=== PATIENT | male | born 1950 | race Caucasian/White ===

== ENCOUNTER 2018-04-08 12:23 | Outpatient (REF) | payer MEDICARE, MEDICAID, SELFPAY | END 2018-04-08 12:43 | LOC: NCHCN 12:23 | PROVIDERS: PCP Nurse Practitioner Adult Health; Visit Provider Internal Medicine | DX: N41.9 Inflammatory disease of prostate, unspecified (principal) | CPT/HCPCS: 87086 ==

== ENCOUNTER 2018-04-20 15:03 | Outpatient (REF) | payer MEDICARE, MEDICAID, SELFPAY ==
[2018-04-22 15:38] LABS: Chlamydia Result Negative; GC Result Negative; Specimen Description URINE
== END 2018-04-20 15:23 ==
LOC: NCHCN 15:03
PROVIDERS: PCP Nurse Practitioner Adult Health; Visit Provider Internal Medicine
DX: R30.0 Dysuria (principal)
CPT/HCPCS: 87491; 87591

== ENCOUNTER 2018-10-07 12:46 | Outpatient (REF) | payer MEDICARE, MEDICAID, SELFPAY ==
--- NOTE | 2018-10-07 11:30 | PAPNONF_PTH ---
PATIENT: Gt Aguilar LOC: [facility] U#:[id number] AGE/SX: 68/M ROOM: RE10/07/[address]: Subhash Dowling : 1950 BED: DIS: 10/07/2018 SPEC #: [id number] RECD: 10/10/18 13:13 STATUS: SONA ARROYO #: [id number] USAMA: 10/07/18 11:[address]: Subhash Dowling DEPT: [facility] Cytology RECD BY: Mary Ann Velazco ENTERED: 10/10/18 13:13 SP TYPE: LUCIANA MCPHERSON DR: Caroline Louie Tissues: 1 - BODY FLUID CYTO(SPUTUM/URINE)[facility] Procedures: BODY FLUID CYTO(URINE/SPUTUM) Comments: [id number] (TOTAL VOLUME = 35 ml's) (35 ml'S URINE & 35 ml's CYTOLYT ADDED)
[2018-10-07 19:51] LABS: HCT 47.3 % (40.0-50.0); HGB 16.2 g/dL (13.5-17.5); Mean Corp. HGB Concentration 34.2 g/dL (32.0-36.0); Mean Corpuscular Hemoglobin 30.4 pg (27.0-33.0); Mean Corpuscular Volume 88.7 fL (80-95); Mean Platelet Volume 11.8 fL (8.0-11.0); Platelet Count 153 x1000/uL (130-400); RBC 5.33 m/cumm (4.50-6.00); RBC Distribution Width 14.6 % (11.8-14.1); White Blood Cell Count 7.16 k/cumm (4.4-10.8)
[2018-10-07 20:05] LABS: ALT 28 U/L (12-78); Anion Gap 10.6 mmol/L (3-11); BUN 14 mg/dL (7-18); CO2 27.4 mmol/L (21.0-32.0); CREATININE 0.86 mg/dL (0.70-1.30); Calcium 9.1 mg/dL (8.5-10.1); Chloride 103 mmol/L (98-107); Glucose 92 mg/dL (70-100); Potassium 4.3 mmol/L (3.5-5.1); Sodium 141 mmol/L (136-145)
[2018-10-07 20:15] LABS: LDL CHOLESTEROL 184 mg/dL (<100)
[2018-10-10 09:59] LABS: PSA, Screening 2.9 ng/ml (0-4.5)
[2018-10-10 10:58] LABS: Bacteria Few HPF (Negative); Casts Negative LPF (Negative); Epithelial Cells Few HPF (Negative); Mucus Negative (Negative); WBC 20-50 HPF (0-5)
[2018-10-10 10:59] LABS: C & S Indicated? No
== END 2018-10-07 13:06 ==
LOC: NCHCN 12:46
PROVIDERS: PCP Nurse Practitioner Adult Health; Visit Provider Internal Medicine
DX: Z87.448 Personal history of other diseases of urinary system (principal); R63.4 Abnormal weight loss; Z12.5 Encounter for screening for malignant neoplasm of prostate; E78.5 Hyperlipidemia, unspecified; R31.21 Asymptomatic microscopic hematuria; R82.8 Abnormal findings on cytological and histological examination of urine
CPT/HCPCS: 80048; 83721; 84153; 85027; 81015; 84460; 88104

== ENCOUNTER → 2018-11-02 13:04 | Outpatient (BNVA) | payer MEDICARE, MEDICAID, SELFPAY | PROVIDERS: PCP Nurse Practitioner Adult Health; Visit Provider Nurse Practitioner Gerontology | DX: R31.29 Other microscopic hematuria (principal); I10 Essential (primary) hypertension; J44.9 Chronic obstructive pulmonary disease, unspecified; Z87.891 Personal history of nicotine dependence | CPT/HCPCS: 81003; 99204 ==

== ENCOUNTER 2018-11-14 01:09 | Outpatient (CLI) | payer MEDICARE, MEDICAID, SELFPAY | END 2018-11-14 01:29 | PROVIDERS: PCP Nurse Practitioner Adult Health; Visit Provider Nurse Practitioner Gerontology | DX: R69 Illness, unspecified (principal) | CPT/HCPCS: 82565 ==

== ENCOUNTER → 2019-02-27 11:31 | Outpatient (BNVA) | payer MEDICARE, MEDICAID, SELFPAY | PROVIDERS: PCP Nurse Practitioner Adult Health; Visit Provider Nurse Practitioner Gerontology | DX: C67.9 Malignant neoplasm of bladder, unspecified (principal); R31.29 Other microscopic hematuria; R63.4 Abnormal weight loss; R30.0 Dysuria | CPT/HCPCS: 81003; 99213 ==

== ENCOUNTER 2019-02-28 00:32 | Outpatient (CLI) | payer MEDICARE, MEDICAID, SELFPAY ==
--- NOTE | 2019-02-28 09:00 | DI.CT_ITS ---
SYMPTOM/DIAGNOSIS: H/O HEMATURIA Z87.[address]: 02/28 CT examination of the abdomen and pelvis was performed utilizing CT urogram protocol. There are a couple of tiny nonobstructing right renal calculi. There are multiple calcifications of the spleen and liver consistent with healed granulomatous disease. Note is made of cholelithiasis without biliary dilatation or other foal abnormality. Lung bases are clear. Pancreas is unremarkable in appearance. Adrenals appear normal. Moderate atheromatous calcification of the aorta noted, no evidence of aneurysm, dissection or arterial obstruction of the major abdominal branches of the aorta. No abdominal or pelvic adenopathy seen. Adrenals appear normal. Right kidney shows minimal cortical deformity at a couple sites which may represent renal scars. Small peripheral right renal cysts vs scarring also noted. No right renal mass. No right hydronephrosis or ureteral calcification or obstruction. There is a 30 x 14 m in diameter enhancing mass of the wall of the urinary bladder in the trigone in the left and this obstructs the distal left ureter. There is marked left hydronephrosis and hydroureter. No left renal cortical abnormality sen. No left sided stone. CONCLUSION: Obstructing mass of the bladder floor to the left of midline, there is secondary left hydroureter and hydronephrosis. The findings are highly suggestive of bladder carcinoma. No gross evidence of metastatic disease.
[2019-02-28] MEDS: Omnipaque 350 MG/ML 100 ML BTL IJ (09:49)
== END 2019-02-28 00:52 ==
PROVIDERS: PCP Nurse Practitioner Adult Health; Visit Provider Nurse Practitioner Family
DX: N32.9 Bladder disorder, unspecified (principal); N13.4 Hydroureter; N13.30 Unspecified hydronephrosis; D41.4 Neoplasm of uncertain behavior of bladder; C67.9 Malignant neoplasm of bladder, unspecified
CPT/HCPCS: 99213; 74178; J3490

== ENCOUNTER 2019-03-17 15:23 | Outpatient (REF) | payer MEDICARE, MEDICAID, SELFPAY ==
[2019-03-17 19:51] LABS: HCT 44.8 % (40.0-50.0); HGB 15.1 g/dL (13.5-17.5); Mean Corp. HGB Concentration 33.7 g/dL (32.0-36.0); Mean Corpuscular Hemoglobin 29.8 pg (27.0-33.0); Mean Corpuscular Volume 88.4 fL (80-95); Mean Platelet Volume 11.8 fL (8.0-11.0); Platelet Count 196 x1000/uL (130-400); RBC 5.07 m/cumm (4.50-6.00); RBC Distribution Width 14.9 % (11.8-14.1); White Blood Cell Count 8.81 k/cumm (4.4-10.8)
[2019-03-17 19:58] LABS: ALT 24 U/L (16-63); AST 13 U/L (15-37); Albumin 3.8 g/dL (3.4-5.0); Alkaline Phosphatase 137 U/L (46-116); Anion Gap 10.5 mmol/L (3-11); BUN 18 mg/dL (7-18); Bilirubin, Total 0.3 mg/dL (0.2-1.0); CO2 26.5 mmol/L (21.0-32.0); CREATININE 1.26 mg/dL (0.70-1.30); Calcium 9.3 mg/dL (8.5-10.1); Chloride 106 mmol/L (98-107); Estimated GFR 57.26 (mL/min/1.73m2); Glucose 94 mg/dL (70-100); LDL CHOLESTEROL 180 mg/dL (<100); Potassium 4.6 mmol/L (3.5-5.1); Sodium 143 mmol/L (136-145); Total Protein 6.9 g/dL (6.4-8.2)
[2019-03-17 20:05] LABS: Troponin I < 0.05 ng/mL (0.00-0.06)
== END 2019-03-17 15:43 ==
LOC: NCHCN 15:23
PROVIDERS: PCP Nurse Practitioner Adult Health; Visit Provider Internal Medicine
DX: R07.9 Chest pain, unspecified (principal); C67.9 Malignant neoplasm of bladder, unspecified; R63.4 Abnormal weight loss
CPT/HCPCS: 80053; 83721; 85027; 84484

== ENCOUNTER 2019-04-20 11:05 | Outpatient (CLI) | payer MEDICARE, MEDICAID, SELFPAY | END 2019-04-20 11:25 | PROVIDERS: PCP Internal Medicine; Visit Provider Urology | DX: R30.0 Dysuria (principal); R31.29 Other microscopic hematuria; J44.9 Chronic obstructive pulmonary disease, unspecified; N32.89 Other specified disorders of bladder | CPT/HCPCS: 81003; 99213; 87086 ==

== ENCOUNTER 2019-05-04 00:32 | Outpatient (CLI) | payer MEDICARE, MEDICAID, SELFPAY ==
--- NOTE | 2019-05-04 08:30 | ETT_ITS ---
APPROVED REPORT Exam: Exercise Treadmill Patient Location: Out-Patient Stress Nurse: Ekta Mercedes RN Baseline Rhythm: NSR BMI: 22.59 Indications: Per notes-Chest Pain, Pre-Operative CV Evaluation, Dyspnea., Pt completely unsure of nicolasa son for testing. Medical History Medical History: COPD, Smoking, Hyperlipidemia, PVD Cardiac Medications: Atenolol, Atorvastatin/ Lipitor, Aspirin Allergies: No known drug allergies Cardiac Risk Factors: Hyperlipidemia, Smoking, COPD, PVD Pretest Chest Pain Characteristics: No chest pain Exercise History: Indeterminate Physical Disabilities: Hips Lung Sounds: diminished Heart Sounds: Regular Stress Test Details Test: Exercise stress testing was performed using a Kostas protocol. Rest Stress HR Resting HR: 72 bpm Max Heart Rate (APMHR): 154 bpm Resting HR Supine: 72 bpm Target HR (85% APMHR): 130 bpm Resting HR Standin bpm Max HR Achieved: 126 bpm % of APMHR: 81 Recovery HR: 77 bpm HR response to stress: Normal HR response to stress BP Resting BP: 140/80 mmHg Resting BP Supine: 140/80 mmHg Resting BP Standin/84 mmHg Max BP: 174/68 mmHg Recovery BP: 130/70 mmHg BP response to stress: Normal blood pressure response to stress. ECG Resting ECG: Sinus Rhythm Ectopy: none Stress ECG: Sinus Tachycardia ST Change: Normal Arrhythmia: None Recovery ECG: Sinus Rhythm Recovery Arrhythmia: None Clinical Time of Stop for Kostas: 3:16 Reason for Termination: Fatigue, Leg pain/Claudication Stress Symptoms: Dyspnea, Leg Fatigue Exercise duration: 3 min16 sec Highest Stage Achieved: Stage 1: 1.7 mph at 10% grade. Exercise capacity: 4.89 METs Functional Capacity: Markedly diminished capacity Stress ECG Conclusion 1. The patient exercised for 3 minutes and 16 seconds (4.89 METS): This suggests significantly dimini shed exercise capacity. 2. Patient did not reach target heart rate thus this does not represent a maximal stress test. 3. There is no evidence of ischemia on ECG. 4. The Sykes Score (3) estimates an annual cardiovascular mortality of 1% and a five year survival of 94%. Using the Sykes Score there is an intermediate probability of angiographic coronary disease. Test Summary supine 72 140/80 standing 86 136/84 97 1 3 10 1.7 125 4.6 162/76 95 1 min recovery 118 174/98 3 min recovery 81 160/80 6 min recovery 77 130/70
== END 2019-05-04 00:52 ==
PROVIDERS: PCP Nurse Practitioner Adult Health; Visit Provider Urology
DX: R07.9 Chest pain, unspecified; R06.09 Other forms of dyspnea; R68.89 Other general symptoms and signs; E78.5 Hyperlipidemia, unspecified; J44.9 Chronic obstructive pulmonary disease, unspecified
CPT/HCPCS: 93016; 93018; 93017

== ENCOUNTER 2019-05-18 01:53 | Outpatient (CLI) | payer MEDICARE, MEDICAID, SELFPAY ==
--- NOTE | 2019-05-18 06:40 | DI.NM_ITS ---
APPROVED REPORT Exam: Pharmacologic Patient Location: Out-Patient Room/Bed: Stress Nurse: Ekta Mercedes RN BMI: 22.59 Baseline Rhythm: NSR Indications: Chest Pain, Pre-Operative CV Evaluation, Dyspnea Medical History Medical History: COPD, Smoking, Hyperlipidemia,PVD Cardiac Medications: Atenolol, Atorvastatin/ Lipitor, Aspirin Allergies: No known drug allergies Cardiac Risk Factors: Hyperlipidemia, Smoking, SOB, PVD, COPD Pretest Chest Pain Characteristics: No chest pain Exercise History: Indeterminate Physical Disabilities: Legs, Hips Lung Sounds: Diminished bilat Heart Sounds: Regular Stress Test Details Test: Pharmacologic stress testing performed using 0.4 mg of regadenoson per 5 mL given IV over 10 s econds. Nuclear Acquisition: Rest Tc-99m/Stress Tc-99m 1 day Rest Isotope: Tc-99m Sestamibi. Dose: 11 Date: 05/18/2019 Injection Time: 0830 Stress Isotope: Tc-99m Sestamibi. Dose: 33 Date: 05/18/2019 Injection Time: 0942 HR Resting HR: 60 bpm Max Heart Rate (APMHR): 154 bpm Resting HR Supine: 60 bpm Target HR (85% APMHR): 130 bpm Max HR Achieved: 114 bpm % of APMHR: 74 Recovery HR: 88 bpm HR response to stress: Normal HR response to stress BP Resting BP: 140/80 mmHg Resting BP Supine: 140/80 mmHg Max BP: 150/78 mmHg Recovery BP: 128/72 mmHg BP response to stress: Abnormal hypertensive response to stress. ECG Resting ECG: Clear, Sinus Rhythm ST Change: none Ectopy: [email or web address] Stress ECG: Sinus Tachycardia ST Change: none Arrhythmia: None Recovery ECG: Sinus Rhythm Recovery Arrhythmia: None Stress ECG Conclusion 1. There is no evidence of stress-induced ischemia on ECG portion of the study. Protocol Used: Regadenoson Stress Test Summary STAGE HR BP Symptoms NOTES Supine 60 140/80 Standing 1 min 99 150/78 2 min 3 min 106 138/76 4 min 5 min 6 min 88 128/72 7 min 8 min 9 min 10 min MPI Conclusion There is no evidence of inducible ischemia on imaging portion of this exam. Ejection fraction was 66% at stress Conclusion: This represents a normal SPECT stress test.
[2019-05-18] MEDS: Regadenoson 0.4 MG/5 ML SYR IVP (09:41)
== END 2019-05-18 02:13 ==
PROVIDERS: PCP Nurse Practitioner Adult Health; Visit Provider Urology
DX: R07.9 Chest pain, unspecified (principal); R06.09 Other forms of dyspnea; E78.5 Hyperlipidemia, unspecified; I73.9 Peripheral vascular disease, unspecified; J44.9 Chronic obstructive pulmonary disease, unspecified; F17.200 Nicotine dependence, unspecified, uncomplicated; Z01.810 Encounter for preprocedural cardiovascular examination; N32.9 Bladder disorder, unspecified
CPT/HCPCS: 78452; 93016; 93018; 93017; J2785

== ENCOUNTER 2019-07-27 12:40 | Outpatient (REF) | payer MEDICARE, MEDICAID, SELFPAY | END 2019-07-27 13:00 | LOC: NCHCN 12:40 | PROVIDERS: PCP Physician Assistant; Visit Provider Physician Assistant | DX: R30.0 Dysuria (principal) | CPT/HCPCS: 87086 ==

== ENCOUNTER 2019-07-31 10:48 | Inpatient (IN) | payer MEDICARE, MEDICAID, SELFPAY ==
[2019-07-31] VITALS (11 sets, daily range): BP systolic 117–135; BP diastolic 70–86; PULSE 57–92; RESP 12–19; TEMP 36.5–36.8; O2SAT 94–100
[2019-07-31] MEDS: Lactated Ringers 1,000 ML 80 ML IV ×2 (11:47→13:34)
--- NOTE | 2019-07-31 11:48 | W.PM.HP.N ---
Date of service: 07/31/19 Time of Service: 11:48 Assessment and Plan Assessment and plan (1) Bladder mass: Status: Acute Assessment and plan: For cystoscopy and TUR bladder tumor. He will require hospitalization at least overnight for bladder irrigation. History of Present Illness History of Present Illness Chief Complaint: Bladder mass Narrative: This is a 68 year old man who is a heavy smoker. He was referred to our practice over a year ago for microscopic hematuria. We had recommended a CT urogram and cystoscopy, but the patient never followed through with these studies. He then developed gross hematuria and a CT urogram was obtained by the patient's PCP 03/2019. A large bladder mass was identified at the left trigone. There is left hydronephrosis and hydroureter. His urine cytology was abnormal 10/2018. The patient lacks insight into his medical situation. In spite of multiple discussion with him, he believes he has a clot in his bladder. He was unable to provide a satisfactory cardiac history for us, but gave a vague history of chest pain/shortness of breath with exertion. He had an echocardiogram and a stress test that were unremarkable, so he is felt to be a surgical candidate locally. He has been a no show for scheduled surgery several times. He presents now for cystoscopy and TUR Bladder tumor. Review of Systems Narrative: No fevers or chills No vision change or dysphasia No diabetes or thyroid No hemoptysis No chest pain or palpitations at rest c/o abdominal pain. No nausea, vomiting, hepatitis, ulcers, jaundice, diarrhea or constipation No seizures, strokes or peripheral neuropathy No bleeding disorders or anemia No gout PFSH Social History Smoking/Tobacco Use Status: Current every day Tobacco Type: cigarettes Alcohol Intake: current Alcohol Intake frequency: a few times a week Alcohol type: beer Drug use: Never Substance use type: does not use Do you feel safe at home: Yes Meds Home Medications and Allergies Home Medications Medication Instructions Recorded Confirmed Type aspirin 81 mg tablet,delayed 81 mg PO DAILY 11/02/18 07/31/19 History release atenolol 25 mg tablet 25 mg PO DAILY 11/02/18 07/31/19 History atorvastatin 20 mg tablet 20 mg PO QHS 11/02/18 07/31/19 History ipratropium 20 mcg-albuterol 100 1 puff IH Q6H 04/24/19 01/20/20 History mcg/actuation mist for inhalation Allergies Allergy/AdvReac Type Severity Reaction Status Date / Time bupropion [From Wellbutrin] Allergy Other (See Verified 07/31/19 10:58 Comment) Exam Const General: cooperative Neck Neck: supple and nontender Resp Auscultation: diminished lung sounds Cardio Rate: regular rate Rhythm: regular rhythm GI Palpation: soft and no masses Neuro General: alert and awake Results Last Vital Signs Temp 36.8 C 07/31/19 11:13 Pulse 92 H 07/31/19 11:13 Resp 14 07/31/19 11:13 BP 124/86 07/31/19 11:13 Pulse Ox 98 07/31/19 11:13
[2019-07-31] MEDS: ceFAZolin 2 GM/50 ML BAG IVPB (13:45)
--- NOTE | 2019-07-31 14:00 | BLADDER_PTH ---
PATIENT: Gt Augilar LOC: U#:[id number] AGE/SX: 68/M ROOM: 228 RE07/31/[address]: Jovanny Hurley MD : 1950 BED: A DIS: 08/01/2019 SPEC #: [id number] RECD: 07/31/19 17:30 STATUS: SONA REQ #: [id number] USAMA: 07/31/19 14:[address]: Jovanny Hurley DEPT: Surgical Specimen RECD BY: Mary Ann Velazco ENTERED: 07/31/19 17:31 SP TYPE: Bladder OTHR DR: Thuy Valle Tissues: 1 - BLADDER CURRETTINGS Procedures: GROSS AND MICRO LEVEL 5 Comments: [id number]
[2019-07-31] MEDS: Lidocaine 2% Jelly 6 ML SYR (14:31)
[2019-07-31] MEDS: fentaNYL 100 MCG/2 ML VIAL IVP (15:00)
[2019-07-31] MEDS: Ketorolac 15 MG/ML VIAL IVP (15:07)
[2019-07-31] MEDS: Oxybutynin 5 MG TAB PO (15:29)
--- NOTE | 2019-07-31 15:35 | ROE_ITS ---
DATE OF PROCEDURE: July 31, 2019 PREOPERATIVE DIAGNOSIS: Bladder mass. POSTOPERATIVE DIAGNOSIS: Same with pathology pending. PROCEDURE: Cystoscopy with transurethral resection of bladder tumor (> 5 cm) SURGEON: Jovanny Hurley M.D. ANESTHESIA: General. COMPLICATIONS: None. ESTIMATED BLOOD LOSS: 200 cc's HISTORY: This is a 68-year-old gentleman who was initially seen several years ago with microscopic h ematuria. He refused a workup at that time. He then developed gross hematuria with clots. He was evaluated with a urine cytology and CT urogram. The cytology was abnormal and the urogram showed a mass in the left side of the bladder with left-s ided hydronephrosis and hydroureter. A transurethral resection of the mass was recommended, but the patient missed multiple scheduled surg ical times. He presents now for transurethral resection of any visible tumor. OPERATIVE REPORT: The patient was brought to the operating room on 07/31/2019. After successful alex ction of general anesthesia, he was placed in the dorsal lithotomy position. His genitalia was prepp ed and draped. 2% Xylocaine jelly was instilled into the urethra to act as a local anesthetic. A 24 Nigerian resectoscope sheath was passed through the urethra into the bladder. We used a visual ob turator to inspect the urethra. The pendulous, bulbous and membranous urethras appeared normal with no strictures. The prostatic ure thra showed some lateral lobe enlargement, but no papillary lesions. At the bladder neck we did visualize some papillary mucosal changes, especially on the left side. Up on entering the bladder neck, the entire left side of the bladder was replaced with a combination of papillary and nodular mucosa. There were some adherent stones and some adherent clot to the area. We then utilized bipolar cautery and a resectoscope loop to resect a large portion of this tumor. It was by no means a complete resection however, as what appeared to be fairly obvious tumor was seen, even with very deep resection. We made sure to resect down to some visible muscle for accurate depth of staging. Any bleeding point s were cauterized with the bipolar cautery. All resected tissue was sent to pathology for permanent section. Once hemostasis was obtained, a 24 Nigerian hematuria catheter was passed through the urethra into the bladder. The catheter balloon was inflated with 30 cc's of sterile water. Continuous bladder irrigation with saline was then begun. A bimanual exam revealed that the right side of the bladder and prostate were mobile, but the left si de was more fixed and a palpable mass was still present. The patient tolerated this procedure well with no complications. cc: Thuy Valle PA-C
[2019-07-31] MEDS: traMADol 50 MG TAB PO (15:49)
[2019-07-31] MEDS: Gabapentin 300 MG CAP PO ×2 (16:04→20:38)
[2019-07-31] MEDS: LORazepam 2 MG/ML VIAL 0.5 MG IVP (16:07)
[2019-07-31] MEDS: Nicotine 21 MG/24 HR PATCH TD (16:09)
[2019-07-31] MEDS: Lactated Ringers 1,000 ML 100 ML IV (16:52)
[2019-07-31] MEDS: Docusate Sodium 100 MG CAP PO (20:38)
[2019-07-31] MEDS: ceFAZolin 1 GM/50 ML BAG IVPB (20:38)
[2019-07-31] MEDS: Atorvastatin 20 MG TAB PO (21:53)
[2019-08-01] MEDS: Lactated Ringers 1,000 ML 100 ML IV (00:28)
[2019-08-01] MEDS: ceFAZolin 1 GM/50 ML BAG IVPB (03:44)
[2019-08-01] MEDS: Ketorolac 15 MG/ML VIAL IVP (06:45)
[2019-08-01 07:04] LABS: Anion Gap 7.9 mmol/L (3-11); BUN 17 mg/dL (7-18); CO2 25.1 mmol/L (21.0-32.0); CREATININE 1.16 mg/dL (0.70-1.30); Calcium 8.5 mg/dL (8.5-10.1); Chloride 106 mmol/L (98-107); Glucose 98 mg/dL (74-106); HCT 38.7 % (40.0-50.0); Mean Corp. HGB Concentration 33.6 g/dL (32.0-36.0); Mean Corpuscular Hemoglobin 29.8 pg (27.0-33.0); Mean Corpuscular Volume 88.8 fL (80-95); Mean Platelet Volume 10.9 fL (8.0-11.0); Platelet Count 198 x1000/uL (130-400); Potassium 4.5 mmol/L (3.5-5.1); RBC 4.36 m/cumm (4.50-6.00); RBC Distribution Width 14.3 % (11.8-14.1); Sodium 139 mmol/L (136-145); White Blood Cell Count 12.61 k/cumm (4.4-10.8)
--- NOTE | 2019-08-01 07:18 | W.PM.DS.N ---
Date of service: 08/01/19 Time of Service: 07:18 DS: Diagnosis Discharge Diagnosis (1) Bladder mass: Status: Acute Discharge Plan Disposition Patient Disposition: HOME W/HOME HEALTH SERVICE Condition: Stable Discharge Details Reason For Visit: BLADDER MASS Admit Date/Time: 07/31/19 10:48 Admit Provider: Jovanny Hurley Attending Provider: Jovanny Hurley Primary Care Provider: Thuy Valle Hospital Course Hospital Course: The patient was admitted for planned surgery. He underwent cystoscopy and a large left sided bladder mass was identified. We did a transurethral resection of the mass for tissue diagnosis. From a visual standpoint, it does not appear that the entire mass was resected as it likely penetrates deeper than the wall of the bladder. He was maintained overnight with continuous bladder irrigation. He had no clot retention. The bladder irrigation was discontinued on postoperative day #1 and he will be discharged with a Calloway catheter in place. His pathology report is still pending at the time of his discharge. Home Meds and New Rx's Prescriptions: New tramadol 50 mg tablet 50 mg PO Q6H PRN (Reason: pain) Qty: 15 RF: 0 cephalexin 250 mg tablet 250 mg PO QHS Qty: 7 RF: 0 No Action atenolol 25 mg tablet 25 mg PO DAILY RF: 0 atorvastatin 20 mg tablet 20 mg PO QHS RF: 0 Combivent Respimat 20-100 mcg/actuation mist 1 puff IH Q6H PRNRF: 0 aspirin [Adult Low Dose Aspirin] 81 mg tablet,delayed release (DR/EC) 81 mg PO DAILY RF: 0 Discharge Instructions Additional Instructions: Calloway catheter to leg bag Follow-up appointment in my office for catheter removal Wednesday of next week Activity:: No lifting over 10 pounds for 1 week Equipment/Supplies:: Calloway catheter to leg bag Diet:: As Tolerated Discharge Orders Discharge Orders: Discharge Order (Routine); Ordered 08/01/19 Ordered By: Jovanny Hurley Discharge Data Discharge Comment: Face to face form for home health completed DS: Summary Status at Discharge Functional status at discharge: independent ambulation Overall status at discharge: patient is back to baseline Mental Status: mental status grossly normal Speech and Movement: speech and movement normal Mood: congruent mood Affect: normal affect Time Spent with Patient providing and/or coordinating discharge services: Less than 30 minutes Exam Narrative Exam Narrative: On the morning of discharge, he appears comfortable He does not appear septic or toxic His vital signs are documented elsewhere His lungs have decreased breath sounds at the bases but no rales Cardiac exam shows a regular rate and rhythm His abdomen is soft with no peritoneal signs Calloway catheter is in place and is draining clear urine He is awake and alert His lab work is reviewed - his postoperative hemoglobin and renal function are stable Psych Mental Status: mental status grossly normal Speech and Movement: speech and movement normal Mood: congruent mood Affect: normal affect DS: Data Vitals/I&O Vitals and I&O: Vital Signs Temperature 36.5 C 07/31/19 18:10 Temperature Source Tympanic 07/31/19 18:10 Pulse 60 07/31/19 18:10 Pulse Rhythm Regular 08/01/19 03:17 Respiratory Rate 14 07/31/19 18:10 Respiratory Effort Non-Labored 08/01/19 03:17 Respiratory Depth Normal 08/01/19 03:17 Respiratory Pattern Normal 08/01/19 03:17 Blood Pressure 132/74 07/31/19 16:15 Pulse Oximetry 94 L 07/31/19 18:10 Respiratory End-tidal CO2 33 07/31/19 16:15 Oxygen Delivery Method Room Air 07/31/19 18:10 Oxygen Flow Rate 0 07/31/19 18:10 Pain Level 3 08/01/19 06:45 Intake & Output 07/31/19 07/31/19 08/01/19 11:59 23:59 11:59 Intake Total 2099 760 / 760 Balance 2099 760 / 760 Weight 60.5 kg Intake: IV 2099 760 / 760 Other: Urine Color Straw [place] Urine Appearance Clear Clear Comment CBI progressing without any difficulties CBI continues without any problems Emesis Description None Data Completed and Pending Labs on day of discharge: Labs from last 24 hours 08/01/19 08/01/19 06:20 06:20 WBC 12.61 H RBC 4.36 L Hgb 13.0 L Hct 38.7 L MCV 88.8 MCH 29.8 MCHC 33.6 RDW 14.3 H Plt Count 198 MPV 10.9 Sodium 139 Potassium 4.5 Chloride 106 Carbon Dioxide 25.1 Anion Gap 7.9 BUN 17 Creatinine 1.16 Estimated GFR/1.73 m2 >= 60.00 Glucose 98 Calcium 8.5 PFSH Medical History Abnormal weight loss (Acute) Bladder mass (Acute) COPD (chronic obstructive pulmonary disease) (Chronic) Heavy smoker (Acute) History of ETOH abuse (Acute) Hx of chest pain (Acute) Hyperlipidemia (Acute) Peripheral vascular disease (Chronic) Urinary frequency (Acute) Surgical History H/O hernia repair (Chronic) History of hip surgery (Acute) Pins in hip Social History Smoking/Tobacco Use Status: Current every day Tobacco Type: cigarettes Alcohol Intake: current Alcohol Intake frequency: a few times a week Alcohol type: beer Drug use: Never Substance use type: does not use Do you feel safe at home: Yes
--- NOTE | 2019-08-01 07:24 | PDOC.HHF2F ---
Home Health Certification Home Health Certification: 1. Encounter Date and Reason I certify that WALLY MARINELLI was seen by Jovanny Hurley MD on 08/01/19 and that I had a [id number] encounter with this patient that meets the physician face to face encounter requirements. 2. Clinical Findings Supporting Skilled Need and Homebound Status I certify that home health services are medically necessary, include either intermittent mcfp and/or physical/speech therapy, and that this patient is homebound in that absences from the home require considerable and taxing effort and are infrequent or of short duration, or are attributable to the need to receive medical care. [X] (a) Attached documentation from encounter provides clinical findings supporting skilled need and homebound status (including what assistance patient requires to leave the home). The encounter with the patient was in whole, or in part, for the following medical condition, which is the primary reason for home health care: BLADDER MASS Intermediate: The patient is being discharged from the hospital with a Calloway catheter in place. The catheter will need to stay for approximately 1 week. I believe he would benefit from mcfp services to help with catheter care and education. Once the catheter is removed and he is able to void, I suspect he will no longer require the mcfp services. Physical Therapy: Speech Therapy: Homebound: 3. Certification and Authentication I certify that I composed the above information based on my clinical judgement relating to this patient's medical condition and, if applicable, clinical findings communicated to me by the NPP or inpatient physician who performed the Home Health Referral. All further orders will be obtained through (Community Based Physician - PCP)
[2019-08-01 07:26] VITALS: BP 107/67; PULSE 74; RESP 16; TEMP 35.9; O2SAT 97
[2019-08-01] MEDS: Nicotine 21 MG/24 HR PATCH TD (07:55)
[2019-08-01] MEDS: Gabapentin 300 MG CAP PO (07:55)
[2019-08-01] MEDS: Atenolol 25 MG TAB PO (07:55)
[2019-08-01] MEDS: Docusate Sodium 100 MG CAP PO (07:55)
--- NOTE | 2019-08-01 12:43 | CMPROGNOTE_ITS ---
Care Management Progress Note Dr. Hurley discharged Gt home with home health services this morning. CM coordinated orders and clinical information via fax to [facility], and confirmed via phone. CM also coordinated transport to [facility], notified [facility] of timing and updated demographic information to include physical address; [address], [place].
--- NOTE | 2019-08-01 14:25 | CHAPLAIN ---
Gt was getting ready to be discharged when I visited. He showed me his warm coat, explaining to me that it is an authentic [place] coat.
== END 2019-08-01 11:05 | disposition home health service (06) | DRG 670 ==
LOC: PDS 10:48 → MS 16:26
PROVIDERS: Admitting Provider Urology; PCP Physician Assistant; Visit Provider Urology
PROC: 0TBB8ZZ Excision of Bladder, Via Natural or Artificial Opening Endoscopic (ICD-10-PCS; CPT 52240; principal; 2019-07-31 12:00)
DX: C67.0 Malignant neoplasm of trigone of bladder (principal); R31.0 Gross hematuria; N21.0 Calculus in bladder; J44.9 Chronic obstructive pulmonary disease, unspecified; F17.210 Nicotine dependence, cigarettes, uncomplicated; F10.10 Alcohol abuse, uncomplicated; E78.5 Hyperlipidemia, unspecified
CPT/HCPCS: 52240; 36415; 80048; 85027; 99238; NC; 88307; J0690; J1100; J1885; J2001; J2060; J2405; J2704; J3010

== ENCOUNTER → 2019-08-07 07:42 | Outpatient (BNVA) | payer MEDICARE, MEDICAID, SELFPAY | PROVIDERS: PCP Physician Assistant; Referring Provider Physician Assistant; Visit Provider Nurse Practitioner Gerontology | DX: N32.89 Other specified disorders of bladder (principal) | CPT/HCPCS: 99213 ==

== ENCOUNTER → 2019-08-24 09:21 | Outpatient (BNVA) | payer MEDICARE, MEDICAID, SELFPAY | PROVIDERS: PCP Physician Assistant; Referring Provider Physician Assistant; Visit Provider Urology | DX: C67.9 Malignant neoplasm of bladder, unspecified (principal); R30.0 Dysuria | CPT/HCPCS: 81003; 99213 ==

== ENCOUNTER 2019-08-24 11:34 | Outpatient (REF) | payer MEDICARE, MEDICAID, SELFPAY | END 2019-08-24 11:54 | LOC: LBN 11:34 | PROVIDERS: PCP Physician Assistant; Visit Provider Urology | DX: R30.0 Dysuria (principal); C67.9 Malignant neoplasm of bladder, unspecified | CPT/HCPCS: 87077; 87086; 87186 ==

== ENCOUNTER 2019-10-24 01:42 | Outpatient (CLI) | payer MEDICARE, MEDICAID, SELFPAY ==
[2019-10-24 10:17] LABS: Abs Immature Grans 0.04 k/cumm (0.0-0.09); Absolute Basophil Count 0.04 k/cumm (0.0-0.2); Absolute Lymphocyte Count 1.76 k/cumm (1.2-3.4); Absolute Monocyte Count 0.39 k/cumm (0.11-0.7); Absolute Neutrophil Count 3.78 k/cumm (1.2-6.7); Basophils % 0.7; Eosinophils % 1.6; HCT 41.8 % (40.0-50.0); HGB 14.2 g/dL (13.5-17.5); Immature Grans % 0.7 %; Lymphocytes % 28.8; Mean Corpuscular Hemoglobin 29.3 pg (27.0-33.0); Mean Corpuscular Volume 86.4 fL (80-95); Mean Platelet Volume 10.4 fL (8.0-11.0); Monocytes % 6.4; Neutrophils % 61.8; Platelet Count 121 x1000/uL (130-400); RBC 4.84 m/cumm (4.50-6.00); RBC Distribution Width 14.8 % (11.8-14.1); White Blood Cell Count 6.11 k/cumm (4.4-10.8)
[2019-10-24 10:26] LABS: ALT 27 U/L (16-63); AST 16 U/L (15-37); Albumin 3.5 g/dL (3.4-5.0); Alkaline Phosphatase 156 U/L (46-116); Anion Gap 11.7 mmol/L (3-11); BUN 20 mg/dL (7-18); Bilirubin, Total 0.4 mg/dL (0.2-1.0); CO2 24.3 mmol/L (21.0-32.0); CREATININE 1.28 mg/dL (0.70-1.30); Calcium 9.1 mg/dL (8.5-10.1); Chloride 103 mmol/L (98-107); Estimated GFR 56.06 (mL/min/1.73m2); Glucose 94 mg/dL (74-106); Potassium 4.5 mmol/L (3.5-5.1); Sodium 139 mmol/L (136-145); Total Protein 7.4 g/dL (6.4-8.2)
[2019-10-24 12:02] LABS: Magnesium 2.2 mg/dL (1.8-2.4)
== END 2019-10-24 02:02 ==
PROVIDERS: PCP Physician Assistant; Visit Provider Internal Medicine
DX: C67.9 Malignant neoplasm of bladder, unspecified (principal); C79.89 Secondary malignant neoplasm of other specified sites
CPT/HCPCS: 36415; 80053; 83735; 85025

== ENCOUNTER 2019-11-07 01:01 | Outpatient (CLI) | payer MEDICARE, MEDICAID, SELFPAY ==
[2019-11-07 08:47] LABS: Abs Immature Grans 1.56 k/cumm (0.0-0.09); Absolute Eosinophil Count 0.09 k/cumm (0.0-0.7); Basophils % 0.7; Eosinophils % 0.4; HCT 40.4 % (40.0-50.0); HGB 13.9 g/dL (13.5-17.5); Immature Grans % 7.3 %; Lymphocytes % 9.3; Mean Corp. HGB Concentration 34.4 g/dL (32.0-36.0); Mean Corpuscular Hemoglobin 29.9 pg (27.0-33.0); Mean Corpuscular Volume 86.9 fL (80-95); Mean Platelet Volume 10.2 fL (8.0-11.0); Monocytes % 6.8; Neutrophils % 75.5; Platelet Count 302 x1000/uL (130-400); RBC 4.65 m/cumm (4.50-6.00); RBC Distribution Width 16.5 % (11.8-14.1); White Blood Cell Count 21.41 k/cumm (4.4-10.8)
[2019-11-07 09:05] LABS: Absolute Basophil Count 0.15 k/cumm (0.0-0.2); Absolute Lymphocyte Count 1.99 k/cumm (1.2-3.4); Absolute Monocyte Count 1.46 k/cumm (0.11-0.7); Absolute Neutrophil Count 16.16 k/cumm (1.2-6.7)
[2019-11-07 09:08] LABS: Diff Comment Agrees w/ Instrument; RBC Morphology Normal
[2019-11-07 09:16] LABS: ALT 22 U/L (16-63); AST 15 U/L (15-37); Albumin 3.3 g/dL (3.4-5.0); Alkaline Phosphatase 222 U/L (46-116); Anion Gap 7.1 mmol/L (3-11); BUN 16 mg/dL (7-18); Bilirubin, Total 0.2 mg/dL (0.2-1.0); CO2 26.9 mmol/L (21.0-32.0); CREATININE 1.23 mg/dL (0.70-1.30); Calcium 8.9 mg/dL (8.5-10.1); Chloride 103 mmol/L (98-107); Estimated GFR 58.69 (mL/min/1.73m2); Glucose 89 mg/dL (74-106); Potassium 4.2 mmol/L (3.5-5.1); Sodium 137 mmol/L (136-145); Total Protein 7.2 g/dL (6.4-8.2)
[2019-11-07 10:45] LABS: Magnesium 2.3 mg/dL (1.8-2.4)
== END 2019-11-07 01:21 ==
PROVIDERS: PCP Physician Assistant; Visit Provider Internal Medicine
DX: C67.9 Malignant neoplasm of bladder, unspecified (principal); C79.89 Secondary malignant neoplasm of other specified sites
CPT/HCPCS: 36415; 80053; 83735; 85025

== ENCOUNTER 2019-11-14 02:25 | Outpatient (CLI) | payer MEDICARE, MEDICAID, SELFPAY ==
[2019-11-14 08:26] LABS: Magnesium 2.2 mg/dL (1.8-2.4)
[2019-11-14 09:04] LABS: Abs Immature Grans 0.07 k/cumm (0.0-0.09); Absolute Basophil Count 0.06 k/cumm (0.0-0.2); Absolute Eosinophil Count 0.03 k/cumm (0.0-0.7); Absolute Lymphocyte Count 1.52 k/cumm (1.2-3.4); Absolute Neutrophil Count 8.48 k/cumm (1.2-6.7); Basophils % 0.5; Eosinophils % 0.3; HCT 38.1 % (40.0-50.0); Immature Grans % 0.6 %; Lymphocytes % 13.3; Mean Corp. HGB Concentration 34.1 g/dL (32.0-36.0); Mean Corpuscular Hemoglobin 29.5 pg (27.0-33.0); Mean Corpuscular Volume 86.6 fL (80-95); Mean Platelet Volume 10.8 fL (8.0-11.0); Neutrophils % 74.3; Platelet Count 199 x1000/uL (130-400); RBC Distribution Width 15.7 % (11.8-14.1); White Blood Cell Count 11.41 k/cumm (4.4-10.8)
[2019-11-14 09:05] LABS: Absolute Monocyte Count 1.26 k/cumm (0.11-0.7)
[2019-11-14 09:11] LABS: ALT 21 U/L (16-63); AST 13 U/L (15-37); Albumin 3.3 g/dL (3.4-5.0); Alkaline Phosphatase 183 U/L (46-116); Anion Gap 7.2 mmol/L (3-11); BUN 20 mg/dL (7-18); Bilirubin, Total 0.4 mg/dL (0.2-1.0); CO2 25.8 mmol/L (21.0-32.0); CREATININE 1.28 mg/dL (0.70-1.30); Calcium 9.1 mg/dL (8.5-10.1); Chloride 103 mmol/L (98-107); Estimated GFR 56.06 (mL/min/1.73m2); Glucose 91 mg/dL (74-106); Potassium 4.5 mmol/L (3.5-5.1); Sodium 136 mmol/L (136-145)
== END 2019-11-14 02:45 ==
PROVIDERS: PCP Physician Assistant; Visit Provider Internal Medicine
DX: C67.9 Malignant neoplasm of bladder, unspecified (principal); C79.89 Secondary malignant neoplasm of other specified sites
CPT/HCPCS: 36415; 80053; 83735; 85025

== ENCOUNTER 2019-12-05 01:23 | Outpatient (RCR) | payer MEDICARE, MEDICAID, SELFPAY ==
[2019-12-05] MEDS: Normal Saline Flush 10 ML SYR IVP (08:45)
[2019-12-05 09:03] LABS: Abs Immature Grans 0.12 k/cumm (0.0-0.09); Absolute Basophil Count 0.11 k/cumm (0.0-0.2); Absolute Eosinophil Count 0.18 k/cumm (0.0-0.7); Absolute Lymphocyte Count 1.62 k/cumm (1.2-3.4); Absolute Monocyte Count 1.09 k/cumm (0.11-0.7); Absolute Neutrophil Count 7.85 k/cumm (1.2-6.7); Eosinophils % 1.6; HCT 37.8 % (40.0-50.0); HGB 12.8 g/dL (13.5-17.5); Immature Grans % 1.1 %; Lymphocytes % 14.8; Mean Corp. HGB Concentration 33.9 g/dL (32.0-36.0); Mean Corpuscular Hemoglobin 30.1 pg (27.0-33.0); Mean Corpuscular Volume 88.9 fL (80-95); Mean Platelet Volume 9.9 fL (8.0-11.0); Monocytes % 9.9; Neutrophils % 71.6; Platelet Count 280 x1000/uL (130-400); RBC 4.25 m/cumm (4.50-6.00); White Blood Cell Count 10.96 k/cumm (4.4-10.8)
[2019-12-05 09:18] LABS: ALT 21 U/L (16-63); AST 18 U/L (15-37); Albumin 3.3 g/dL (3.4-5.0); Alkaline Phosphatase 163 U/L (46-116); Anion Gap 4.7 mmol/L (3-11); BUN 16 mg/dL (7-18); Bilirubin, Total 0.3 mg/dL (0.2-1.0); CO2 27.3 mmol/L (21.0-32.0); CREATININE 1.06 mg/dL (0.70-1.30); Calcium 8.7 mg/dL (8.5-10.1); Chloride 104 mmol/L (98-107); Glucose 98 mg/dL (74-106); Potassium 4.4 mmol/L (3.5-5.1); Sodium 136 mmol/L (136-145); Total Protein 6.7 g/dL (6.4-8.2)
[2019-12-05 10:29] LABS: Magnesium 2.2 mg/dL (1.8-2.4)
== END 2019-12-10 23:59 | disposition home or self-care (01) ==
LOC: INF 01:23
PROVIDERS: PCP Physician Assistant; Visit Provider Internal Medicine
DX: C67.9 Malignant neoplasm of bladder, unspecified (principal); C79.89 Secondary malignant neoplasm of other specified sites; Z45.2 Encounter for adjustment and management of vascular access device
CPT/HCPCS: 36591; 80053; 83735; 85025

== ENCOUNTER 2019-12-19 03:42 | Outpatient (CLI) | payer MEDICARE, MEDICAID, SELFPAY ==
[2019-12-19 08:42] LABS: Abs Immature Grans 0.01 k/cumm (0.0-0.09); Absolute Basophil Count 0.11 k/cumm (0.0-0.2); Absolute Eosinophil Count 0.09 k/cumm (0.0-0.7); Absolute Lymphocyte Count 1.26 k/cumm (1.2-3.4); Absolute Monocyte Count 0.67 k/cumm (0.11-0.7); Basophils % 1.9; Eosinophils % 1.6; HCT 37.6 % (40.0-50.0); HGB 12.5 g/dL (13.5-17.5); Immature Grans % 0.2 %; Mean Corp. HGB Concentration 33.2 g/dL (32.0-36.0); Mean Corpuscular Hemoglobin 30.2 pg (27.0-33.0); Mean Corpuscular Volume 90.8 fL (80-95); Mean Platelet Volume 10.1 fL (8.0-11.0); Monocytes % 11.7; Neutrophils % 62.6; Platelet Count 188 x1000/uL (130-400); RBC 4.14 m/cumm (4.50-6.00); White Blood Cell Count 5.74 k/cumm (4.4-10.8)
[2019-12-19 08:50] LABS: Magnesium 2.2 mg/dL (1.8-2.4)
[2019-12-19 08:56] LABS: ALT 20 U/L (16-63); AST 15 U/L (15-37); Albumin 3.6 g/dL (3.4-5.0); Alkaline Phosphatase 166 U/L (46-116); Anion Gap 7.9 mmol/L (3-11); BUN 12 mg/dL (7-18); Bilirubin, Total 0.3 mg/dL (0.2-1.0); CO2 27.1 mmol/L (21.0-32.0); CREATININE 1.21 mg/dL (0.70-1.30); Calcium 8.9 mg/dL (8.5-10.1); Chloride 106 mmol/L (98-107); Estimated GFR 59.82 (mL/min/1.73m2); Glucose 96 mg/dL (74-106); Potassium 4.5 mmol/L (3.5-5.1); Sodium 141 mmol/L (136-145); Total Protein 6.9 g/dL (6.4-8.2)
== END 2019-12-19 04:02 ==
PROVIDERS: Nurse Practitioner Adult Health; PCP Physician Assistant; Visit Provider Internal Medicine
DX: C67.9 Malignant neoplasm of bladder, unspecified (principal); C79.89 Secondary malignant neoplasm of other specified sites
CPT/HCPCS: 36415; 80053; 83735; 85025

== ENCOUNTER 2019-12-26 07:39 | Outpatient (RCR) | payer MEDICARE, MEDICAID, SELFPAY ==
[2019-12-26 07:59] LABS: Abs Immature Grans 0.03 k/cumm (0.0-0.09); HCT 35.8 % (40.0-50.0); HGB 12.2 g/dL (13.5-17.5); Mean Corp. HGB Concentration 34.1 g/dL (32.0-36.0); Mean Corpuscular Hemoglobin 30.9 pg (27.0-33.0); Mean Corpuscular Volume 90.6 fL (80-95); Mean Platelet Volume 10.3 fL (8.0-11.0); RBC 3.95 m/cumm (4.50-6.00); RBC Distribution Width 17.7 % (11.8-14.1); White Blood Cell Count 9.41 k/cumm (4.4-10.8)
[2019-12-26] MEDS: Normal Saline Flush 10 ML SYR IVP (07:59)
[2019-12-26 08:06] LABS: ALT 16 U/L (16-63); AST 10 U/L (15-37); Albumin 3.3 g/dL (3.4-5.0); Alkaline Phosphatase 115 U/L (46-116); Anion Gap 8.9 mmol/L (3-11); BUN 24 mg/dL (7-18); Bilirubin, Total 0.5 mg/dL (0.2-1.0); CO2 26.1 mmol/L (21.0-32.0); CREATININE 1.18 mg/dL (0.70-1.30); Calcium 8.9 mg/dL (8.5-10.1); Chloride 101 mmol/L (98-107); Glucose 111 mg/dL (74-106); Potassium 4.3 mmol/L (3.5-5.1); Sodium 136 mmol/L (136-145)
[2019-12-26 08:15] LABS: Absolute Eosinophil Count 0.09 k/cumm (0.0-0.7); Absolute Lymphocyte Count 0.56 k/cumm (1.2-3.4); Absolute Monocyte Count 0.94 k/cumm (0.11-0.7); Absolute Neutrophil Count 7.72 k/cumm (1.2-6.7); Diff Comment Manual Differential; RBC Morphology Normal
[2019-12-26 08:16] LABS: Platelet Count 101 x1000/uL (130-400)
== END 2020-01-09 23:59 | disposition home or self-care (01) ==
LOC: INF 07:39
PROVIDERS: PCP Physician Assistant; Visit Provider Nurse Practitioner Adult Health
DX: C67.9 Malignant neoplasm of bladder, unspecified (principal); C79.89 Secondary malignant neoplasm of other specified sites; Z45.2 Encounter for adjustment and management of vascular access device
CPT/HCPCS: 36591; 80053; 83735; 85025

== ENCOUNTER 2020-01-23 20:07 | Outpatient (REF) | payer MEDICARE, MEDICAID, SELFPAY ==
[2020-01-23 19:25] LABS: Abs Immature Grans 0.05 k/cumm (0.0-0.09); Absolute Basophil Count 0.11 k/cumm (0.0-0.2); Absolute Lymphocyte Count 1.91 k/cumm (1.2-3.4); Absolute Monocyte Count 0.93 k/cumm (0.11-0.7); Absolute Neutrophil Count 5.33 k/cumm (1.2-6.7); Basophils % 1.3; Eosinophils % 1.2; HCT 36.2 % (40.0-50.0); HGB 11.9 g/dL (13.5-17.5); Immature Grans % 0.6 %; Lymphocytes % 22.7; Mean Corp. HGB Concentration 32.9 g/dL (32.0-36.0); Mean Corpuscular Hemoglobin 31.4 pg (27.0-33.0); Mean Corpuscular Volume 95.5 fL (80-95); Mean Platelet Volume 10.6 fL (8.0-11.0); Neutrophils % 63.2; Platelet Count 239 x1000/uL (130-400); RBC 3.79 m/cumm (4.50-6.00); RBC Distribution Width 18.7 % (11.8-14.1); White Blood Cell Count 8.43 k/cumm (4.4-10.8)
[2020-01-23 19:34] LABS: ALT 16 U/L (16-63); AST 15 U/L (15-37); Albumin 3.6 g/dL (3.4-5.0); Alkaline Phosphatase 137 U/L (46-116); Anion Gap 9.9 mmol/L (3-11); BUN 20 mg/dL (7-18); Bilirubin, Total 0.2 mg/dL (0.2-1.0); CO2 26.1 mmol/L (21.0-32.0); CREATININE 1.16 mg/dL (0.70-1.30); Calcium 8.9 mg/dL (8.5-10.1); Chloride 102 mmol/L (98-107); Glucose 91 mg/dL (74-106); Potassium 4.4 mmol/L (3.5-5.1); Sodium 138 mmol/L (136-145); Total Protein 6.6 g/dL (6.4-8.2)
[2020-01-23 19:40] LABS: INR 0.9 (0.9-1.1); Prothrombin Time 9.5 sec (9.3-11.0)
== END 2020-01-23 20:27 ==
LOC: NCHCN 20:07
PROVIDERS: PCP Physician Assistant; Visit Provider Physician Assistant
DX: C67.9 Malignant neoplasm of bladder, unspecified (principal); Z01.818 Encounter for other preprocedural examination
CPT/HCPCS: 80053; 83735; 85025; 85610

== ENCOUNTER → 2020-06-04 10:45 | Outpatient (BNVA) | payer MEDICARE, MEDICAID, SELFPAY | PROVIDERS: PCP Physician Assistant; Referring Provider Physician Assistant; Visit Provider Urology | DX: C67.9 Malignant neoplasm of bladder, unspecified (principal); J44.9 Chronic obstructive pulmonary disease, unspecified; F17.210 Nicotine dependence, cigarettes, uncomplicated; Z93.6 Other artificial openings of urinary tract status | CPT/HCPCS: 99213 ==

== ENCOUNTER → 2020-09-06 09:51 | Outpatient (BNVA) | payer MEDICARE, MEDICAID, SELFPAY | PROVIDERS: PCP Physician Assistant; Referring Provider Physician Assistant; Visit Provider Urology | DX: C67.9 Malignant neoplasm of bladder, unspecified (principal) | CPT/HCPCS: 99213 ==

== ENCOUNTER → 2021-01-30 09:51 | Outpatient (BNVA) | payer MEDICARE, MEDICAID, SELFPAY | PROVIDERS: PCP Physician Assistant; Referring Provider Physician Assistant; Visit Provider Nurse Practitioner Gerontology | DX: C67.9 Malignant neoplasm of bladder, unspecified (principal) | CPT/HCPCS: 99214 ==

== ENCOUNTER 2021-02-11 03:59 | Outpatient (CLI) | payer MEDICARE, MEDICAID, SELFPAY ==
[2021-02-11 09:45] LABS: Abs Immature Grans 0.04 10^3/uL (0.0-0.06); Absolute Basophil Count 0.08 10^3/uL (0.0-0.2); Absolute Eosinophil Count 0.25 10^3/uL (0.0-0.7); Absolute Lymphocyte Count 1.45 10^3/uL (1.2-3.4); Absolute Monocyte Count 0.65 10^3/uL (0.1-0.8); Absolute Neutrophil Count 5.01 10^3/uL (1.2-6.7); Basophils % 1.1; Eosinophils % 3.3; HCT 45.1 % (40.0-50.0); HGB 15.3 g/dL (13.5-17.5); Immature Grans % 0.5; Lymphocytes % 19.4; MCH 31.1 pg (27.0-33.0); MCHC 33.9 % (32.0-36.0); MCV 91.7 fL (80-95); MPV 10.3 fL (8.0-11.0); Monocytes % 8.7; Nucleated RBC 0 %; Platelet Count 142 10^3/uL (130-400); RBC 4.92 10^6/uL (4.36-5.78); RDW 14.3 % (11.8-14.1); RDW-SD 47.8 fL; WBC 7.48 10^3/uL (4.4-10.8)
[2021-02-11 10:01] LABS: ALT 17 U/L (16-63); AST 12 U/L (15-37); Albumin 3.9 g/dL (3.4-5.0); Alkaline Phosphatase 116 U/L (46-116); Anion Gap 10.8 mmol/L (3-11); BUN 26 mg/dL (7-18); Bilirubin, Total 0.4 mg/dL (0.2-1.0); CO2 23.2 mmol/L (21.0-32.0); CREATININE 1.3 mg/dL (0.70-1.30); Calcium 9.4 mg/dL (8.5-10.1); Chloride 105 mmol/L (98-107); Glucose 107 mg/dL (74-106); Potassium 4.6 mmol/L (3.5-5.1); Sodium 139 mmol/L (136-145); Total Protein 7.1 g/dL (6.4-8.2)
== END 2021-02-11 04:00 | disposition home or self-care (01) ==
LOC: LBO 03:59
PROVIDERS: PCP Physician Assistant; Visit Provider Internal Medicine
DX: C79.89 Secondary malignant neoplasm of other specified sites (principal); C67.9 Malignant neoplasm of bladder, unspecified
CPT/HCPCS: 36415; 80053; 85025

== ENCOUNTER 2021-04-03 14:59 | Outpatient (REF) | payer MEDICARE, MEDICAID, SELFPAY ==
[2021-04-03 19:28] LABS: ALT 20 U/L (16-63); AST 14 U/L (15-37); Albumin 4.1 g/dL (3.4-5.0); Alkaline Phosphatase 117 U/L (46-116); Anion Gap 10.8 mmol/L (3-11); BUN 20 mg/dL (7-18); Bilirubin, Total 0.6 mg/dL (0.2-1.0); CO2 25.2 mmol/L (21.0-32.0); CREATININE 1.4 mg/dL (0.70-1.30); Calcium 9.2 mg/dL (8.5-10.1); Chloride 103 mmol/L (98-107); Glucose 105 mg/dL (74-106); Potassium 4.6 mmol/L (3.5-5.1); Sodium 139 mmol/L (136-145); Total Protein 6.8 g/dL (6.4-8.2)
[2021-04-03 19:29] LABS: HCT 45.9 % (40.0-50.0); HGB 15.7 g/dL (13.5-17.5); MCH 31.2 pg (27.0-33.0); MCHC 34.2 % (32.0-36.0); MCV 91.3 fL (80-95); MPV 10.7 fL (8.0-11.0); Platelet Count 128 10^3/uL (130-400); RBC 5.03 10^6/uL (4.36-5.78); RDW 13.6 % (11.8-14.1); RDW-SD 46.2 fL; WBC 8.11 10^3/uL (4.4-10.8)
== END 2021-04-03 15:00 | disposition home or self-care (01) ==
LOC: NCHCN 14:59
PROVIDERS: PCP Physician Assistant; Visit Provider Internal Medicine
DX: C67.9 Malignant neoplasm of bladder, unspecified (principal)
CPT/HCPCS: 80053; 85027

== ENCOUNTER 2021-11-11 02:35 | Outpatient (CLI) | payer MEDICARE, MEDICAID, SELFPAY ==
--- OUTSIDE RECORDS SUMMARY | 2021-11-11 02:36 | XMS_ITS ---
:1950 Author Care Team Providers Name Role Phone TRAMAINE GRIMES MD Primary Care Provider [phone] Allergies Code Code System Name Reaction Severity Status Onset Wellbutrin ? ? Active ? Medications Name Status Start Date Stop Date ? ? acetaminophen 500 mg tablet Active ? Not available Take 2 tablets every 6 hours by oral route as needed. Adult Aspirin Regimen 81 mg tablet,delayed release Active ? Not available Take 1 tablet every day by oral route. Alinia 500 mg tablet Completed ? 04/17/2020 Take 1 tablet every day by oral route for 7 days. Aspir-81 Completed ? 03/26/2020 daily atenolol 25 mg tablet Completed ? 03/08/2020 atorvastatin 20 mg tablet Active ? Not av ailable azithromycin 250 mg tablet Completed ? 03/08 Bactrim DS 800 mg-160 mg tablet Completed 03/09/2020 03/26/2020 Take 1 tablet every 12 hours by oral route for 7 days. Boost Breeze Nutritional 0.04 gram-1.05 kcal/mL oral liquid Acti ve ? Not available 2 cartons twice daily bupropion HCl SR 150 mg tablet,12 Completed ? 03/08/2020 hr sustained-release calcium carbonate Active ? Not available Give 1000 mg by mouth every 6 hours as needed for heartburn. cephalexin 500 mg capsule Completed ? 2019 ciprofloxacin 250 mg tablet Completed ? 03/12 Combivent Respimat 20 mcg-100 Completed ? mcg/actuation solution for inhalation Diflucan 100 mg tablet Completed 03/19/2020 0 Take 1 tablet every day by oral route for 7 days. dronabinol 2.5 mg capsule Active ? Not av ailable Take 1 capsule twice a day by oral route. ergocalciferol (vitamin D2) 1,250 mcg (50,000 unit) capsule Acti ve ? Not available Take 1 capsule every week by oral route. ergocalciferol (vitamin D2) 200 mcg/mL (8,000 unit/mL) oral drop s Completed ? 04/15/2020 Take by oral route. Golytely 236 gram-22.74 gram-6.74 Completed 08/01/2015 08/20/2015 gram-5.86 gram oral solution Ileostomy Appliance Flat Face Active ? No t available Change every 3-4 days loratadine 10 mg tablet Completed ? 03/26/20 20 Take 1 tablet every day by oral route as needed. Lovenox 40 mg/0.4 mL subcutaneous syringe Completed ? 03/26/2020 Inject 0.4 mL every day by subcutaneous route for 5 days. melatonin 3 mg tablet Active ? Not availa ble Take 2 tablets every day by oral route at bedtime. methylphenidate 5 mg tablet Completed ? 09/2019 GIVE 2.5 TABLETS BY ORAL ROUTE 2 TIMES PER DAY metronidazole 500 mg tablet Completed ? 02/10 neomycin 500 mg tablet Completed ? 0 omeprazole 20 mg capsule,delayed Completed ? 03/08/2020 release ondansetron HCl 8 mg tablet Completed ? 02/10 prednisone 20 mg tablet Completed ? 02/11/20 18 prochlorperazine maleate 10 mg Completed ? 0 03/08/2020 tablet Protonix 40 mg granules delayed-release packet Active 0 03/22/2020 Not available Take 1 packet twice a day by oral route. Remedy Antifungal 2 % topical cream Active ? Not available Apply to scrotum topically two times a day for irritation. Remeron 15 mg tablet Completed ? 03/14/2020 Take 1 tablet every day by oral route at bedtime. sucralfate 1 gram tablet Active ? Not parish ilable Toprol XL 25 mg tablet,extended release Active ? Not available Take 1 tablet every day by oral route. Ventolin HFA 90 mcg/actuation Active ? No t available aerosol inhaler Zofran 4 mg tablet Completed ? 04/15/2020 Take 1 tablet every 8 hours by oral route as needed. Notes: Meds updated with SEP 1711/28-ST Problems Name Status Onset Date Source ? Hyperlipidemia Active 02/10/2018 ? Alcoholism Active 02/10/2018 ? Tobacco User Active 02/10/2018 ? Chronic Serous Otitis Media Unknown 02/10/2018 ? Hypertensive Disorder Active 02/10/2018 ? Peripheral Vascular Disease Active 02/10/2018 ? Gastroesophageal Reflux Disease Active 02/10/2018 ? Right Inguinal Hernia Active 02/10/2018 ? Blood in Urine Active 02/10/2018 ? Osteoarthritis Active 02/10/2018 ? Chest Pain Active 02/10/2018 ? History of Calculus of Kidney Active 02/10/2018 ? Illiteracy Active 02/10/2018 ? 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 Nutritional Disorder Active 03/26/2020 ? Depressive Disorder Active 03/26/2020 ? Chronic Obstructive Lung Disease Active ? History Unilateral Inguinal Hernia Unknown ? Histo ry Early Satiety Unknown ? History Counseling Unknown ? History Finding of Esophagus Unknown ? History Screening Procedure Unknown ? History Procedures Date Name Performed by ? 03/06/2020 Egd Information not avai lable 02/28/2020 Gastrostomy Tube Placement Information n ot available 02/13/2020 Revise Bladder & Ureter(s) Information n ot available ? Construction of Continent Ileal Informat ion not available Conduit ? Hip Surgery Information not avai lable Notes: metal rods placed right hip Notes: History of Aortoilliac En darterectomy Results Lab Results Date Name Specimen Result Interpretation Description Value Range Status Address ? 03/28/2020 Giardia STL ? Giardia negative negative Final [place] Ag, Count ry EIA, Stool Hospit al Lab (Internal) : [address] 03/28/2020 Cryptosporid STL ? [facility]i [facility]ati [facility] [place] [facility] [address] 03/28/2020 Ova + STL ? Parasite no ova and ? Final [place] Parasites, Growth parasites Cou ntry Light seen. Hospital [facility] Microscopy, (Inte rnal): Stool [address] 03/28/2020 C Diff Toxin STL ? C. Diff negative negative F inal [place] Genes, Qual, ([facility]) Coun try PCR, Stool Hospit al Lab (Internal) : [address] 03/28/2020 Go-roch MISC ? [id number] see below ? Final No rth Ambient 04/02/2020 Count ry 08:11 AM Hospital Lab (Internal) : [address] 12/22/2016 Venipuncture BLD ? Venpn* ? ? Final [facility] Hospital L ab (Internal) : [address] 12/22/2016 Streptococcu THRT ? Final microbiology ? F inal [place] s Group a Ag results Cou ntry Screen Hospital L ab (Internal) : [address] [facility] 12/22/2016 Borrelia S ? Lyme negative ? Final No rth Burgdorferi Antibody Cou ntry Ab, Qual Hospital Lab Immunoassay, (Int ernal): [facility] [address] [facility] 12[facility]2016 ESR BLD ? Esr 3 mm/h 0-20 mm/h Final [place] th (Erythrocyte Coun try Sedimentatio Hosp ital Lab n Rate), (Interna l): Blood [address] [facility] 12/22/2016 Troponin I, S ? Trop <0.06 NG/mL 0.00-0.06 Final [place] Serum or NG/mL [facility] Plasma Hospital L ab (Internal) : [address] [facility] 12/22/2016 Magnesium, S ? mg 2.3 mg/dL 1.6-2.3 Final [place] QN, Serum or mg/dL Coun try Plasma Hospital L ab (Internal) : [address] [facility] 12/22/2016 CK (Creatine S Low Cpk 36 U/L 55-170 Final [place] Kinase), U/L [facility] Total, Serum Hosp ital Lab (Internal) : [address] [facility] 12/22/2016 CMP, Serum S ? g/r 101 mg/dL 74-106 Final [place] or Plasma mg/dL [facility] L ab (Internal) : [address] t ? ? S ? Bun 18 mg/dL 9-20 Final [place] mg/dL [facility] Hospital L ab (Internal) : [address] t ? ? S ? Crea 0.80 mg/dL 0.66-1.25 Final [place] mg/dL [facility] L ab (Internal) : [address] t ? ? S ? Ca 9.6 mg/dL 8.4-10.2 Final [place] mg/dL [facility] Hospital L ab (Internal) : [address] t ? ? S ? Na 138 mmol/L 137-145 Final [place] mmol/L [facility] L ab (Internal) : [address] t ? ? S ? K 4.2 mmol/L 3.5-5.1 Final [place] mmol/L [facility] L ab (Internal) : [address] t ? ? S ? Cl 105 mmol/L 98-107 Final [place] mmol/L [facility] (Internal) : [address] t ? ? S ? Tco2 26.0 mmol/L 22.0-30.0 Final No rth mmol/L [facility] L ab (Internal) : [address] t ? ? S ? Tp 6.8 g/dL 6.3-8.2 Final [place] g/dL [facility] (Internal) : [address] t ? ? S ? Alb 4.2 g/dL 3.5-5.0 Final [place] g/dL [facility] (Internal) : [address] t ? ? S ? Tbil 0.6 mg/dL 0.2-1.3 Final [place] mg/dL [facility] L [facility] (Internal) : [address] t ? ? S ? Alp 107 U/L 38-126 Final [place] U/L [facility] (Internal) : [address] t ? ? S ? Alt (Sgpt) 35 U/L 21-72 U/L Final No rth [facility] L [facility] (Internal) : [address] t ? ? S ? Ast (Sgot) 21 U/L 17-59 U/L Final No rth [facility] (Internal) : [address] 12/22/2016 CBC W/ Auto BLD ? Wbc 9.0 10*3/uL 5.0-10.0 F inal [place] Diff 10*3/uL [facility] (Internal) : [address] t ? ? BLD ? Rbc 5.24 10*6/uL 4.60-6.00 Final N orth 10*6/uL [facility] (Internal) : [address] t ? ? BLD ? Hgb 16.3 g/dL 14.0-18.0 Final Nort h g/dL [facility] (Internal) : [address] ? ? BLD ? Hct 46.8 % 41.0-51.0 Final [place] % [facility] (Internal) : [address] ? ? BLD ? Mcv 89.3 fL 80.0-96.0 Final [facility] Hospital L ab (Internal) : [address] [place] ? ? BLD ? Mch 31.1 pg 26.0-32.0 Final [facility] L ab (Internal) : [address] [place] ? ? BLD ? Mchc 34.8 g/dL 31.0-35.0 Final [facility] h g/dL [facility] Hospital L ab (Internal) : [address] [place] ? ? BLD ? Rdw 14.3 % 11.5-14.5 Final [facility] L ab (Internal) : [address] [place] ? ? BLD ? Plt 194 10*3/uL 130-450 Final Nort h 10*3/uL [facility] Hospital L ab (Internal) : [address] [place] ? ? BLD ? Anc 6.39 10*3/uL ? Final Nort [facility] L ab (Internal) : [address] [place] ? ? BLD ? Neutro 71.1 % 40.0-75.0 Final [facility] L ab (Internal) : [address] [place] ? ? BLD Low Lymph 19.1 % 20.0-50.0 Final [facility] L ab (Internal) : [address] [place] ? ? BLD ? Ogle 7.0 % 2.0-10.0 Final [facility] L ab (Internal) : [address] [place] ? ? BLD ? Eos 1.6 % 1.0-6.0 % Final [facility] L ab (Internal) : [address] [place] ? ? BLD ? Baso 0.8 % 0.0-1.0 % Final [facility] L ab (Internal) : [address] [place] ? ? BLD ? Ig 0.4 % 0.0-0.9 % Final [facility] ab (Internal) : [address] [place] Past Encounters None recorded. Social History Tobacco Smoking Status Heavy Tobacco Smoker (2 packs per day ) Vaccine List None recorded. Plan of Care Reminders Provider Appointments None ? ? recorded. Lab None ? ? recorded. Referral None ? ? recorded. Procedures None ? ? recorded. Surgeries None ? ? recorded. Imaging None ? ? recorded. Vitals 04/15/2020 10:32AM Telehealth 20 Weight Blood Pressure 51.48 kg 98/68 mm[Hg] 04/10/2020 01:15PM Telehealth 20 Weight Blood Pressure 51.43 kg 107/64 mm[Hg] 03/20/2020 11:30AM Follow Up 30 Weight Blood Pressure 46.27 kg 110/80 mm[Hg] 03/13/2020 03:00PM Follow Up 30 Weight Blood Pressure 47.77 kg 133/80 mm[Hg] 03/08/2020 02:30PM Follow Up 30 Weight Blood Pressure 47.8 kg 118/73 mm[Hg]
[2021-11-11 13:57] LABS: Abs Immature Grans 0.03 10^3/uL (0.0-0.06); Absolute Basophil Count 0.07 10^3/uL (0.0-0.2); Absolute Eosinophil Count 0.13 10^3/uL (0.0-0.7); Absolute Lymphocyte Count 1.56 10^3/uL (1.2-3.4); Absolute Monocyte Count 0.63 10^3/uL (0.1-0.8); Absolute Neutrophil Count 5.26 10^3/uL (1.2-6.7); Basophils % 0.9; Eosinophils % 1.7; HCT 45.8 % (40.0-50.0); HGB 15.4 g/dL (13.5-17.5); Immature Grans % 0.4; Lymphocytes % 20.3; MCH 30.8 pg (27.0-33.0); MCHC 33.6 % (32.0-36.0); MCV 92 fL (80-95); MPV 9.8 fL (8.0-11.0); Monocytes % 8.2; Neutrophils % 68.5; Platelet Count 143 10^3/uL (130-400); RDW 14.1 % (11.8-14.1); RDW-SD 47.8 fL; WBC 7.68 10^3/uL (4.4-10.8)
[2021-11-11 14:11] LABS: ALT 16 U/L (16-63); AST 10 U/L (15-37); Albumin 3.8 g/dL (3.4-5.0); Alkaline Phosphatase 126 U/L (46-116); BUN 19 mg/dL (7-18); Bilirubin, Total 0.3 mg/dL (0.2-1.0); CREATININE 1.4 mg/dL (0.70-1.30); Calcium 8.7 mg/dL (8.5-10.1); Chloride 105 mmol/L (98-107); Estimated GFR 50.25 (mL/min/1.73m2); Glucose 112 mg/dL (74-106); Potassium 4.1 mmol/L (3.5-5.1); Sodium 139 mmol/L (136-145); Total Protein 6.9 g/dL (6.4-8.2)
== END 2021-11-11 02:36 | disposition home or self-care (01) ==
LOC: LBO 02:35
PROVIDERS: PCP Physician Assistant; Visit Provider Internal Medicine
DX: C67.9 Malignant neoplasm of bladder, unspecified (principal)
CPT/HCPCS: 36415; 80053; 85025

== ENCOUNTER → 2022-06-30 01:09 | Outpatient (CLI) | payer MEDICARE, MEDICAID, SELFPAY ==
[2022-06-30] MEDS: Barium Sulfate 2% W/V-Berry Smoothie 450 ML BTL PO (08:29)
[2022-06-30 08:33] LABS: Abs Immature Grans 0.02 10^3/uL (0.0-0.06); Absolute Basophil Count 0.08 10^3/uL (0.0-0.2); Absolute Eosinophil Count 0.15 10^3/uL (0.0-0.7); Absolute Lymphocyte Count 1.12 10^3/uL (1.2-3.4); Absolute Monocyte Count 0.51 10^3/uL (0.1-0.8); Absolute Neutrophil Count 5.16 10^3/uL (1.2-6.7); Basophils % 1.1; Eosinophils % 2.1; HCT 48.2 % (40.0-50.0); HGB 16.7 g/dL (13.5-17.5); Immature Grans % 0.3; Lymphocytes % 15.9; MCH 31.5 pg (27.0-33.0); MCHC 34.6 % (32.0-36.0); MCV 91 fL (80-95); MPV 10.2 fL (8.0-11.0); Monocytes % 7.2; Neutrophils % 73.4; Platelet Count 133 10^3/uL (130-400); RBC 5.31 10^6/uL (4.36-5.78); RDW 13.4 % (11.8-14.1); RDW-SD 45.4 fL; WBC 7.04 10^3/uL (4.4-10.8)
[2022-06-30 08:47] LABS: ALT 20 U/L (16-63); AST 27 U/L (15-37); Albumin 4.1 g/dL (3.4-5.0); Alkaline Phosphatase 125 U/L (46-116); Anion Gap 7.7 mmol/L (3-11); BUN 26 mg/dL (7-18); Bilirubin, Total 0.8 mg/dL (0.2-1.0); CO2 26.3 mmol/L (21.0-32.0); CREATININE 1.4 mg/dL (0.70-1.30); Calcium 9.4 mg/dL (8.5-10.1); Chloride 102 mmol/L (98-107); Estimated GFR 54.41 (mL/min/1.73m2); Glucose 112 mg/dL (74-106); Potassium 4.9 mmol/L (3.5-5.1); Sodium 136 mmol/L (136-145); Total Protein 7.7 g/dL (6.4-8.2)
[2022-06-30] MEDS: Normal Saline - Diluent 50 ML VIAL IJ (10:02)
[2022-06-30] MEDS: Omnipaque 350 MG/ML 500 ML BTL-Imaging package IJ (10:04)
--- NOTE | 2022-06-30 10:10 | DI.CT_ITS ---
Exam(s) CT CHEST/ABD/PEL W EXAM: CT CHEST/ABD/PEL W CLINICAL HISTORY: URINARY BLADDER CA,C67.9,S/P CYSTOPROSTATECTOMY,RESTAGING EXAM. TECHNIQUE: Imaging Protocol: Axial computed tomography images with coronal and sagittal reformatted images were created and reviewed CONTRAST MATERIAL: Intravenous: Omnipaque 350 Contrast volume:100 ml Oral: Yes. Oral contrast was administered for bowel opacification. COMPARISON: CT CT ABDOMEN PELVIS WO/W from 02/28/2019 FINDINGS: CHEST: LUNGS: There are no pulmonary infiltrates nor pleural effusions. No ominous metastatic appearing pul monary nodules. No significant focal findings in the trachea and mainstem bronchi.. MEDIASTINUM: There is no hilar nor mediastinal adenopathy. Visualized thyroid unremarkable.No supracl avicular adenopathy. No axillary adenopathy. CARDIAC: Heart size is normal. There is no pericardial effusion.Caliber of the thoracic aorta is wit hin normal limits. OSSEOUS: No fractures. No significant osseous lesions.. ABDOMEN: There is no ascites. LIVER: Calcified granulomas noted in the liver and spleen. No ominous focal hepatic lesions. No dil ated intrahepatic ducts. GALLBLADDER/BILIARY: Small gallstones noted. No gallbladder wall edema nor pericholecystic fluid. C BD is not dilated. PANCREAS: No evidence of pancreatic mass nor dilatation of the pancreatic duct. SPLEEN: Spleen size is normal. There are multiple calcified splenic granulomas. No ominous splenic lesions evident. Splenic and portal veins are patent. ADRENALS: There are no significant adrenal masses. KIDNEYS: The left kidney is atrophic not dilated. Right kidney exhibits normal size.z no calculi nor masses. No cysts. No hydronephrosis.. No cysts evident. ABDOMINAL AORTA: Quite atherosclerotic atherosclerotic. Not dilated. 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 Reconstitution at at the right common femoral artery level. LYMPH NODES: There is no retroperitoneal nor paraaortic adenopathy. ABDOMINAL WALL: There has been resection of the urinary bladder and prostate. There is right-sided o stomy for diversion. There is no dilatation of the I ileal loop. There is no dilatation of the righ t collecting system. Left collecting system is not dilated. Left kidney has significantly decreased in size from 2019. GI: There is no evidence of bowel obstruction. PELVIS: LYMPH NODES: There is no intrapelvic nor inguinal adenopathy. GI: No evidence of appendicitis.No evidence of sigmoid diverticulitis. URINARY BLADDER: Surgically absent. REPRODUCTIVE: Prostate surgically absent OSSEOUS: Right hip hardware. No fractures. No lytic nor blastic osseous lesions identified. IMPRESSION: 1. Compared to 02/28/2019 there has been interval cystectomy and prostatectomy and creation of a righ t-sided ileal diversion with no evidence of urinary tract obstruction although the left kidney is now noted to be somewhat atrophic when compared to February 2019. Right kidney remains normal size. 2. Abdominal aorta is quite atherosclerotic but not dilated. The common iliac artery on the right si de is occluded at its origin. Both side iliac arteries are small. 3. Other findings as above. RADIATION DOSE DELIVERED: 1,178.28mGy.cm Total DLP DATA REPOSITORY: All CT scans at this facility are submitted to the National Radiology Data Registry (NRDR) Dose Index Registry (DIR) with the [employer] (ACR). RADIATION OPTIMIZATION: All CT scans at this facility use at least one of these dose optimization te chniques: automated exposure control; mA and/or kV adjustment per patient size (includes targeted exa ms where dose is matched to clinical indication); or iterative reconstruction.
== END ==
PROVIDERS: PCP Physician Assistant; Visit Provider Internal Medicine
DX: C67.9 Malignant neoplasm of bladder, unspecified (principal); I70.0 Atherosclerosis of aorta
CPT/HCPCS: 36415; 74177; 80053; 71260; 85025

== ENCOUNTER 2022-12-22 14:15 | Outpatient (REF) | payer MEDICARE, MEDICAID, SELFPAY ==
[2022-12-22 15:34] LABS: Abs Immature Grans 0.04 10^3/uL (0.0-0.06); Absolute Basophil Count 0.06 10^3/uL (0.0-0.2); Absolute Eosinophil Count 0.16 10^3/uL (0.0-0.7); Absolute Lymphocyte Count 1.16 10^3/uL (1.2-3.4); Absolute Monocyte Count 0.59 10^3/uL (0.1-0.8); Absolute Neutrophil Count 4.61 10^3/uL (1.2-6.7); Basophils % 0.9; Eosinophils % 2.4; HCT 47.6 % (40.0-50.0); HGB 16.6 g/dL (13.5-17.5); Immature Grans % 0.6; Lymphocytes % 17.5; MCH 31.1 pg (27.0-33.0); MCHC 34.9 % (32.0-36.0); MCV 89 fL (80-95); MPV 10.5 fL (8.0-11.0); Monocytes % 8.9; Neutrophils % 69.7; Platelet Count 162 10^3/uL (130-400); RBC 5.34 10^6/uL (4.36-5.78); RDW-SD 45.6 fL; WBC 6.62 10^3/uL (4.4-10.8)
[2022-12-22 15:52] LABS: ALT 23 U/L (16-63); AST 16 U/L (15-37); Albumin 3.9 g/dL (3.4-5.0); Alkaline Phosphatase 135 U/L (46-116); Anion Gap 9.4 mmol/L (3-11); BUN 18 mg/dL (7-18); Bilirubin, Total 0.3 mg/dL (0.2-1.0); CO2 26.6 mmol/L (21.0-32.0); CREATININE 1.2 mg/dL (0.70-1.30); Calcium 9.2 mg/dL (8.5-10.1); Chloride 102 mmol/L (98-107); Estimated GFR 65.06 (mL/min/1.73m2); Glucose 96 mg/dL (74-106); Potassium 4.1 mmol/L (3.5-5.1); Sodium 138 mmol/L (136-145); Total Protein 7.7 g/dL (6.4-8.2)
== END 2022-12-22 14:16 | disposition home or self-care (01) ==
LOC: LBN 14:15
PROVIDERS: PCP Physician Assistant; Visit Provider Internal Medicine
DX: C67.9 Malignant neoplasm of bladder, unspecified (principal)
CPT/HCPCS: 80053; 85025

== ENCOUNTER 2023-06-22 03:04 | Outpatient (RCR) | payer MEDICARE, MEDICAID, SELFPAY ==
[2023-06-22] MEDS: Normal Saline Flush 10 ML SYR IVP (08:58)
[2023-06-22] MEDS: Heparin 500 UNITS/5 ML SYRINGE IV (08:58)
[2023-06-22 09:18] LABS: Abs Immature Grans 0.04 10^3/uL (0.0-0.06); Absolute Basophil Count 0.08 10^3/uL (0.0-0.2); Absolute Eosinophil Count 0.17 10^3/uL (0.0-0.7); Absolute Lymphocyte Count 1.35 10^3/uL (1.2-3.4); Absolute Monocyte Count 0.55 10^3/uL (0.1-0.8); Absolute Neutrophil Count 5.04 10^3/uL (1.2-6.7); Basophils % 1.1; Eosinophils % 2.4; HCT 48.3 % (40.0-50.0); HGB 16.3 g/dL (13.5-17.5); Immature Grans % 0.6; Lymphocytes % 18.7; MCH 30.2 pg (27.0-33.0); MCHC 33.7 % (32.0-36.0); MCV 90 fL (80-95); MPV 9.9 fL (8.0-11.0); Monocytes % 7.6; Neutrophils % 69.6; Platelet Count 159 10^3/uL (130-400); RBC 5.39 10^6/uL (4.36-5.78); RDW 13.9 % (11.8-14.1); WBC 7.23 10^3/uL (4.4-10.8)
[2023-06-22 09:37] LABS: ALT 18 U/L (16-63); AST 11 U/L (15-37); Albumin 3.7 g/dL (3.4-5.0); Alkaline Phosphatase 135 U/L (46-116); Anion Gap 8.8 mmol/L (3-11); BUN 26 mg/dL (7-18); Bilirubin, Total 0.4 mg/dL (0.2-1.0); CO2 26.2 mmol/L (21.0-32.0); CREATININE 1.4 mg/dL (0.70-1.30); Calcium 9.3 mg/dL (8.5-10.1); Chloride 103 mmol/L (98-107); Estimated GFR 54.07 (mL/min/1.73m2); Glucose 116 mg/dL (74-106); Potassium 4.3 mmol/L (3.5-5.1); Sodium 138 mmol/L (136-145); Total Protein 7.3 g/dL (6.4-8.2)
== END 2023-07-11 23:59 | disposition home or self-care (01) ==
LOC: INF 03:04
PROVIDERS: PCP Physician Assistant; Visit Provider Internal Medicine
DX: C67.9 Malignant neoplasm of bladder, unspecified (principal); Z45.2 Encounter for adjustment and management of vascular access device
CPT/HCPCS: 36591; 80053; 85025

== ENCOUNTER → 2024-01-17 14:47 | Outpatient (BNVA) | payer MEDICARE, MEDICAID, SELFPAY | PROVIDERS: PCP Physician Assistant; Referring Provider Physician Assistant; Visit Provider Urology | DX: C67.9 Malignant neoplasm of bladder, unspecified (principal) | CPT/HCPCS: 76775; 99213 ==

== ENCOUNTER 2024-01-17 15:32 | Outpatient (REF) | payer MEDICARE, MEDICAID, SELFPAY ==
--- NOTE | 2024-01-17 15:00 | PAPNONF_PTH ---
PATIENT: Gt Aguilar LOC: [facility] U#:[id number] AGE/SX: 73/M ROOM: RE01/17/[address]: Jovanny Hurley MD : 1950 BED: DIS: 01/17/2024 SPEC #: [id number] RECD: 01/17/24 18:36 STATUS: SONA REQ #: [id number] USAMA: 01/17/24 15:[address]: Jovanny Hurley DEPT: [facility] Cytology RECD BY: Mary Ann Velazco ENTERED: 01/17/24 18:37 SP TYPE: LUCIANA MCPHERSON DR: Thuy Valle Tissues: 1 - BODY FLUID CYTO(SPUTUM/URINE)[facility] Procedures: BODY FLUID CYTO(URINE/SPUTUM) Comments: [id number] (TV = 60 ml, 30 ml CYTOLYT ADDED) (REFRIGERATED)
== END 2024-01-17 15:33 | disposition home or self-care (01) ==
LOC: LBN 15:32
PROVIDERS: PCP Physician Assistant; Visit Provider Urology
DX: Z85.51 Personal history of malignant neoplasm of bladder
CPT/HCPCS: 88104

== ENCOUNTER 2024-08-15 01:09 | Outpatient (CLI) | payer MEDICARE, MEDICAID, SELFPAY ==
--- OUTSIDE RECORDS SUMMARY | 2024-08-15 01:30 | XMS_ITS | Referral Summary ---
Author Organization [facility] Address [address] [place] [address] Care Team Providers Care Philosophy Faculty Name Role Phone Unknown, Provider MD Primary Care Provider Unava ilable Social History Tobacco Use Types Packs/Day Years Used Date Smoking Tobacco: Never Assessed Interpersonal Safety Answer Date Record ed Physically Hurt Never 02/12/2020 Verbally Threaten Not on file 02/12/2020 Sex and Gender Information Value Date Recorded Sex Assigned at Not on file Legal Sex Male 7:34 EDT Gender Identity Not on file Sexual Orientation Not on file Plan of Treatment [place] [phone] MEDICAID [place]ICARE Care Teams Philosophy Faculty Relationship Specialty Start Date End Date Unknown, Provider, PCP - General 10/11/18
--- OUTSIDE RECORDS SUMMARY | 2024-08-15 01:30 | XMS_ITS | Encounter Summary ---
Author Organization [facility] Address [address] [place] [id number] Care Team Providers Care First Aid Nurse Name Role Phone Unknown, Provider Primary Care Provider Unava ilable Encounter Details Date Type Department Care Team (Late st Contact Info) Description 03/28/2020 Lab Requisition [facility] Pathology & Laboratory Medicine - [facility] [address] [place] [address] Outr Resulting Lab, Provider Social History Tobacco Use Types Packs/Day Years Used Date Smoking Tobacco: Never Assessed Interpersonal Safety Answer Date Record ed Physically Hurt Never 02/12/2020 Verbally Threaten Not on file 02/12/2020 Sex and Gender Information Value Date Recorded Sex Assigned at Not on file Legal Sex Male 7:34 EDT Gender Identity Not on file Sexual Orientation Not on file documented as of this encounter Plan of Treatment Not on file documented as of this encounter Procedures Procedure Name Priority Date/Time Associated Diagnosis Comments OVA/PARASITE EXAM Routine 03/28/2020 15: 04 EDT documented in this encounter Results * OVA/PARASITE EXAM (03/28/2020 15:04 EDT) Parasite No ova and parasites seen. 03/29/2020 13:48 EDT [facility] Feces SPECIMEN FROM RECTUM / Unknown 03/28/2020 15:04 EDT 03/28/2020 22:08 EDT Narrative [facility] - 03/29/2020 13:48 EDT (If Cryptosporidium, Cyclospora, or Microsporidium are suspected, specific tests must be requested.) Single negative specimen does not rule out the possibility of a parasitic infection. us Provider Outr Resulting Lab MICROBIOLOGY - GENER AL ORDERABLES Final Result [facility] [address] [place] [address] documented in this encounter Visit Diagnoses Not on filedocumented in this encounter Care Teams First Aid Nurse Relationship Specialty Start Date End Date Unknown, Provider, PCP - General 10/11/18 documented as of this encounter
--- OUTSIDE RECORDS SUMMARY | 2024-08-15 01:30 | XMS_ITS | Encounter Summary ---
Author Organization [facility] Address [address] [place] [id number] Care Team Providers Care Vice President & General Manager [employer] Name Role Phone Unavailable Primary Care Provider Unavailabl e Encounter Details Date Type Department Care Team (Latest Contact Info) Description 10/07/2018 16:18 EDT - 10/07/2018 23:59 EDT Hospital Encounter [address] [address] Unknown, Provider, MD Discharge Disposition: Home or Self Care Social History Tobacco Use Types Packs/Day Years Used Date Smoking Tobacco: Never Assessed Sex and Gender Information Value Date Recorded Sex Assigned at Not on file Legal Sex Male 7:34 EDT Gender Identity Not on file Sexual Orientation Not on file documented as of this encounter Discharge Disposition Disposition Code Departure Means Destination Home or Self Intermediate documented in this encounter Plan of Treatment Not on file documented as of this encounter Visit Diagnoses Not on filedocumented in this encounter
--- OUTSIDE RECORDS SUMMARY | 2024-08-15 01:30 | XMS_ITS | Encounter Summary ---
Author Organization [facility] Address [address] [place] [address] Care Team Providers Care Film Maker Name Role Phone Unknown, Provider Primary Care Provider Unava ilable Encounter Details Date Type Department Care Team (Late st Contact Info) Description 10/07/2018 Results Only [facility] [phone] Tramaine Grimes MD [address], [place] [id number] Social History Tobacco Use Types Packs/Day Years [...] Procedure Name Priority Date/Time Associated Diagnosis Comments CYTOPATHOLOGY Routine 10/07/2018 0:00 EDT documented in this encounter Results * CYTOPATHOLOGY (10/07/2018 0:00 EDT) Pathology Report: CYTOPATHOLOGY REPORT Reports generated via electronic interface contain original data; however they are lacking the format of the original report. Caution should be taken when reading/interpreting unformatted reports. Name: ? YVESWALLY ? Accession #: ? [id number] : ? 1950 (Age: 68) ??M ?Collect Date: ? 10/07/2018 Location: ? [facility] ? Receive Date: ? 10/11/2018 Provider: ? TRAMAINE GRIMES MD Copy to: ? CYTOLOGIC DIAGNOSIS: URINE, VOIDED, CYTOLOGIC EVALUATION: - ??Suspicious for high-grade urothelial carcinoma. See comment. ? COMMENT: Cytologic evaluation reveals scattered suspicious, but degenerated urothelial cells in a background of acute inflammation. The suspicious cells are lying singly and have increased nuclear to cytoplasmic ratios, hyperchromatic chromatin, and angulated nuclear contours. These findings are suspicious for a high-grade urothelial carcinoma, and the single cell nature raises the possibility of a carcinoma in situ. Stem Sizer slides of this case were reviewed at the intradepartmental consultation conference. Document reviewed and electronically signed by: ? MALENA BIRD MD Report Date: ??10/11/2018 17:22 By the signature above, the attending physician certifies that he/she has personally conducted a gross and/or microscopic examination of the described specimens and rendered or confirmed the above diagnosis. Specimen Type: ? Urine, Voided Clinical History: ? Microhematuria. ? Gross Description: ? 70ccs of clear yellow fluid, of which 35ccs are composed of fixative, were received and processed by selective cellular enhancement technique. ? . ? End of Report [facility] 10/07/2018 10/11/2018 9:1 0 EDT us Tramaine Grimes MD PATHOLOGY ORDERABLES Final R esult [facility] [address] [place] [address] documented in this encounter Visit Diagnoses Not on filedocumented in this encounter Care Teams Film Maker Relationship Specialty Start Date End Date Unknown, Provider, PCP - General 10/11/18 documented as of this encounter
--- OUTSIDE RECORDS SUMMARY | 2024-08-15 01:30 | XMS_ITS | Encounter Summary ---
Author Organization [facility] Address [address] [place] [address] Care Team Providers Care Ice Cream Scooper Name Role Phone Unknown, Provider Primary Care Provider Unava ilable Encounter Details Date Type Department Care Team (Late st Contact Info) Description 08/01/2019 Lab Requisition [facility] - [facility] [address] [place] [address] Jovanny Hurley MD [address] [place] [address] [place] [address] Other specified disorders of bladder Social History Tobacco Use Types Packs/Day Years [...] Procedure Name Priority Date/Time Associated Diagnosis Comments SURGICAL PATHOLOGY Today 07/31/2019 14 :00 EST Other specified disorders of bladder documented in this encounter Results * SURGICAL PATHOLOGY (07/31/2019 14:00 EST) Final Diagnosis A. URINARY BLADDER, SITE NOT FURTHER SPECIFIED, MASS, TRANSURETHRAL RESECTION OF BLADDER TUMOR: - Urothelial carcinoma, invasive, high-grade. - Muscularis propria identified, involved by tumor. - Pericystic adipose tissue, involved by tumor (blocks A2, A4). - No definitive lymph-vascular invasion. - Flat urothelial carcinoma in situ (CIS) (block A3). 08/05/2019 11:19 EST [facility] at 1119 Diagnosis Comment Immunohistochemical study was performed on this case to further characterize the tumor, and the immunoreactivity profile supports urothelial carcinoma. IMMUNOHISTOCHEMISTRY: ANTIBODY(CLONE)(BLOCK ):RESULT NKX3.1 (Rabbit Polyclonal, [employer]) (A9): Negative GATA3 (L50-823, [place]) (A9): Positive PAX-8 (MRQ-50, [place]) (A9): Negative NOTE: One or more of the reagents used in immunoperoxidase testing in this case may not have been cleared or approved by the U.S. Food and Drug Administration (FDA). The FDA has determined that such clearance or approval is not necessary. These tests are used for clinical purposes. They should not be regarded as investigational or for research. These reagents' performance characteristics have been determined by [facility] and/or by the referring laboratory. The positive and negative controls worked appropriately. If immunoperoxidase staining has been performed on alcohol fixed cytology specimens, which has not been fully validated, the assays should be interpreted with caution and correlated with clinical data. This laboratory is certified under the Clinical Laboratory Improvement Amendments of 1988 (CLIA-88) as qualified to perform high complexity clinical laboratory testing. 08/05/2019 11:19 [facility] Synoptic URINARY BLADDER: Biopsy and Transurethral Resection of Bladder Tumor (TURBT) ??(Bladder - All Specimens) 8th Edition - Protocol posted: 09/07/2018 SPECIMEN ?? Procedure: ?Transurethral resection of bladder (TURBT) TUMOR ?? Tumor Site: ?Not specified ?? Histologic Type: ?Urothelial carcinoma, invasive ?? Histologic Grade: ?High-grade ?? Tumor Extension: ?Tumor invades muscularis propria ?? Tumor Configuration: ?Solid / nodule ?? Tumor Configuration: ?Flat ?? Muscularis Propria Presence: ?Muscularis propria (detrusor muscle) present ?? Lymphovascular Invasion: ?Not identified ADDITIONAL FINDINGS ?? Additional Pathologic Findings: ?Cautery artifact Comment(s) Comment(s): ?in addition to muscularis propria, tumor involves pericystic adipose tissue 08/05/2019 11:19 [facility] Clinical History Bladder mass 08/05/2019 11:19 [facility] Attestation There was significan t resident/fellow involvement in the diagnostic evaluation of this case. By the signature below, the attending physician certifies that they have personally conducted a gross and/or microscopic examination of the described specimens and rendered or confirmed the above diagnosis. 08/05/2019 11:19 [facility] at 1119 Gross Description A. Received in formalin labelled with proper patient identification (initials P, J) and TUR bladder tumor is an aggregate of beyer-ang cauterized soft tissue (6 g, 7.3 x 6.7 x 1.0 cm). The specimen is submitted entirely in A1-A13. 08/01/2019 10:15 08/05/2019 11:19 [facility] Resident/Fell ow: Kimber Gunderson MD 08/05/2019 11:19 [facility] Scanned Images 08/05/2019 11:19 [facility] Tissue URINARY BLADDER BIOPSY SPECIMEN / Unknown 07/31/2019 14:00 EST 08/01/2019 9:54 EST Jovanny Hurley MD PATHOLOGY ORDERABLES Judi nicole Result [facility] [address] [place] [address] documented in this encounter Visit Diagnoses Diagnosis Other specified disorders of bladder documented in this encounter Care Teams Ice Cream Scooper Relationship Specialty Start Date End Date Unknown, Provider, PCP - General 10/11/18 documented as of this encounter
--- OUTSIDE RECORDS SUMMARY | 2024-08-15 01:30 | XMS_ITS | Clinical Summary ---
Author Organization [facility] Address [facility] [place] [address] Care Team Providers Care Merchandise Presentation Manager Name Role Phone Subhash Dowling MD Primary Care Provider [phone] Allergies Active Allergy Reactions Criticality Noted Date Comments Bupropion Hcl Other (See Comments) 09/26/2019 Unknown on pt's chart from outside facility Medications Medication Sig Dispensed Refills Start Date End Date Status aspirin EC 81 mg Tablet, Delayed Release (E.C.) Take 81 mg by mouth daily. Active atorvastatin (Lipitor) 20 mg Tablet Take 20 mg by mouth daily. Active albuterol 90 mcg/actuation HFA Aerosol Inhaler Inhale 2 puffs into the lungs every 4 hours as needed for Wheezing. Use with spacer Active acetaminophen (Tylenol) 500 mg Tablet Take 2 tablets by mouth every 6 hours as needed for Pain. 30 tablet 1 03/06/2020 Active Active Problems Problem Noted Date Diagnosed Date Attention to urostomy 03/25/2020 Severe protein-calorie malnutrition 02/17/2020 Overview (02/17/2020): >5% weight loss in 1 month and Moderate lean muscle loss is consistent with severe protein-calorie malnutrition in the setting of acute illness or injury (Bibiana, JPEN J Parenteral Enteral Nutr. 2012 November; 36(3): 273-83) Tobacco use disorder 01/25/2020 Bladder cancer 01/08/2020 HTN (hypertension) 12/22/2019 PVD (peripheral vascular disease) 12/22/2019 Overview (12/22/2019): Hx aortoiliac endarterectomy. 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 Malignant neoplasm of overlapping sites of bladd er 08/31/2019 Cancer Staging:Clinical: cT3, cN0 - Signed by Rony Schaeffer MD on 08/31/2019 Encounters Date Type Department Care Team Description 08/09/2024 Telephone Hematology/Oncology at [address] [phone] Nancy Ramirez 07/18/2024 Telephone Hematology/Oncology at [address] [phone] Nancy Ramirez from Last 3 Months Family History Relation Status Comments Brother Alive Father Mother Sister Alive Social History Tobacco Use Types Packs/Day Years Used Date Smoking Tobacco: Every Day Cigarettes 2 50 Smokeless Tobacco: Never Alcohol Use Standard Drinks/Week Comments Yes 14 (1 standard drink = 0.6 oz pu re alcohol) 2 Sex and Gender Information Value Date Recorded Sex Assigned at Not on file Gender Identity Not on file Sexual Orientation Not on file Last Filed Vital Signs Vital Sign Reading Time Taken Comments Blood Pressure 133/75 01/11/2024 9:57 AM EDT Pulse 72 01/11/2024 9:57 AM EDT Temperature 36.2 ??C (97.1 ??F) 01/11/2024 9:57 AM ED T Respiratory Rate 18 01/11/2024 9:57 AM EDT Oxygen Saturation 98% 01/11/2024 9:57 AM EDT Inhaled Oxygen Concentration - - Weight 56 kg (123 lb 6.4 oz) 01/11/2024 9:57 AM EDT Height 167.6 cm (5' 5.98) 01/11/2024 9:57 AM ED T Body Mass Index 19.93 01/11/2024 9:57 AM EDT Plan of Treatment Upcoming Encounters Date Type Department Care Team (Late st Contact Info) Description 08/15/2024 11:30 AM EST Office Visit Hematology/Oncology at [address] [phone] Chanelle Kim, [facility] [place] [address] Bee Curry, [facility] [place] [address] Health Maintenance Due Date Last Done Comments CT Colonography 1952 Colonoscopy 1952 Colorectal Cancer Screening 1952 FIT DNA 1952 FIT 1952 Sigmoidoscopy (10 year) with FIT yearly 1952 Sigmoidoscopy 1950 Hepatitis C Screening 1970 Pneumoccocal Vaccine: 50+ (1 of 2 - PCV) 1971 Tetanus/Diphtheria/Pertussis Vaccines (1 - Tdap) 08/19 Zoster vaccine (1 of 2) 2002 Advance Directive 2007 RSV Vaccine (1 - Risk 60-74 years 1-dose series) 08/19 AAA Screen 2017 Covid-19 Vaccine (1 - 2023- season) 2024 Influenza (Flu) vaccine (1 o f 1 - Influenza standard series) 03/12/2024 Medical Devices Implanted Type Area [employer]ward [employer]etrack Device Identifier Shelf Expiration Date Model / Serial / Lot Devic,Pro,W-A [facility],Chrnflx, 8f [id number]/09 Implanted:Qty : 1 on 11/27/2019 by Jason Lujan PA IMPLANTS Right: Chest Wall [employer] - [employer] [place] 04/10/2024 [id number] / / [id number] Stent,Set,Ban kunal,Uret,Dvrn ,6fr ([id number]) - [id number] Implanted:Qty : 1 on 02/13/2020 by Stephan Armstrong MD at [facility] IMPLANTS Bilateral: Ureter [employer] 11/14/2022 [id number] / / [id number] Description:BLUE IN LEFT URE TER RED IN RIGHT URETER Advance Directives * Attempt Cardiopulmonary Resuscitation - Inpatient (Latest Code Status on File) Date Activated Date Inactivated Comments 02/13/2020 2:21 PM 03/07/2020 5:09 PM Question Answer Comments Code Status decision made by: Patient * Full Code Date Activated Date Inactivated Comments 01/31/2020 1:27 PM 02/01/2020 4:39 AM Question Answer Comments Does patient have capacity to make decision: Yes * Full Code Date Activated Date Inactivated Comments 11/27/2019 6:44 AM 11/28/2019 4:38 AM Question Answer Comments Does patient have capacity to make decision: Yes Care Teams Merchandise Presentation Manager Relationship Specialty Start Date End Date Subhash Dowling MD [address] [place] [address] PCP - General 06/03/10
--- OUTSIDE RECORDS SUMMARY | 2024-08-15 01:30 | XMS_ITS | Encounter Summary ---
Author Organization [facility] [place] [address] Care Team Providers Care Waste Oil Pumper Name Role Phone Subhash Dowling MD Primary Care Provider [phone] Encounter Details Date Type Department Care Team (Late Contact Info) Description 08/09/2024 Telephone Hematology/Oncology at [address] [phone] Nancy Ramirez Social History Tobacco Use Types Packs/Day Years [...] on file documented as of this encounter Miscellaneous Notes * Telephone Encounter - Nancy Ramirez - 08/09/2024 1:20 PM EST I called Ketty whom is a family friend to let her know about his appt on 08/15 with SD and needing labs prior they are aware of the day and time of the appts documented in this encounter Plan of Treatment Upcoming Encounters Date Type Department Care Team (Late Contact Info) Description 08/15/2024 11:30 AM EST Office Visit Hematology/Oncology at [address] [phone] Chanelle Kim [facility] [place] [address] Bee Curry [facility] [place] [address] documented as of this encounter Visit Diagnoses Not on filedocumented in this encounter Care Teams Waste Oil Pumper Relationship Specialty Start Date End Date Subhash Dowlnig MD [address] [place] [id number] PCP - General 06/03/10 documented as of this encounter
--- OUTSIDE RECORDS SUMMARY | 2024-08-15 01:30 | XMS_ITS | Encounter Summary ---
Author Organization [facility] Address [address] [place] [address] Care Team Providers Care Video Clerk Name Role Phone Unknown, Provider Primary Care Provider Unava ilable Encounter Details Date Type Department Care Team (Late st Contact Info) Description 01/18/2024 Lab Requisition [facility]ology & Laboratory Medicine - [facility] [address] [place] [address] Jovanny Hurley MD [address] [place] [address] [place] [address] Encounter for other general examination Social History Tobacco Use Types Packs/Day Years [...] Procedure Name Priority Date/Time Associated Diagnosis Comments NON ANIMAL NUTRITION CONSULTANT/FNA CYTOLOGY Today 01/17/2024 15:00 EDT Encounter for other general examination documented in this encounter Results * NON ANIMAL NUTRITION CONSULTANT/FNA CYTOLOGY (01/17/2024 15:00 EDT) Note to Patient The following pathology results have been interpreted by your pathologist and may be available to you before your health provider has had the opportunity to review them. Please allow time for your provider to receive these results and explore management options, if applicable. 01/18/2024 16:32 EDT [facility] Final Diagnosis A. URINE, ILEAL CONDUIT, CYTOLOGIC EVALUATION: - Negative for high grade urothelial carcinoma. - Degenerated inflammatory cells, crystals, and abundant bacteria consistent with ileal conduit specimen. 01/18/2024 16:32 T [facility] Attestation There was significant resident/fellow involvement in the diagnostic evaluation of this case. By the signature below, the attending physician certifies that they have personally conducted a gross and/or microscopic examination of the described specimens and rendered or confirmed the above diagnosis. 01/18/2024 16:32 T [facility] at 1631 Clinical History Bladder cancer. S/P cystoectomy with ileal conduit 01/18/2024 16:32 T [facility] Gross Description A. 90cc's of cloudy yellow fluid (Cytolyt added) were received and processed by selective cellular enhancement technique. 01/18/2024 16:32 T [facility] Resident/Subhash w: Katja Tate DO 01/18/2024 16:32 T [facility] Performing Lab [facility] 01/18/2024 16:32 [facility] Scanned Images 01/18/2024 16:32 [facility] Urine URINE SPECIMEN FROM URINARY CONDUIT / Unknown 01/17/2024 15:00 EDT 01/18/2024 6:32 EDT Jovanny Hurley MD PATHOLOGY ORDERABLES Judi nicole Result [facility] [address] [place], [place] [id number] documented in this encounter Visit Diagnoses Diagnosis Encounter for other general examination documented in this encounter Care Teams Video Clerk Relationship Specialty Start Date End Date Unknown, Provider, PCP - General 10/11/18 documented as of this encounter
--- OUTSIDE RECORDS SUMMARY | 2024-08-15 01:30 | XMS_ITS | Clinical Summary ---
Author Organization [facility] Address [address] [place] [address] Care Team Providers Care Pit Manager Name Role Phone Unknown, Provider Primary Care Provider Unava ilable Social History [...] Orientation Not on file Plan of Treatment Health Maintenance Due Date Last Done Comments Hepatitis C Screen 1950 Fall Risk Screening 2017 COVID-19 Vaccine (2023-25 season) 2024 RSV Immunization ( o r 60+ Years) (1 - 1-dose 75+ series) 2027 Insurance MEDICAID [place] MEDICARE Care Teams Pit Manager Relationship Specialty Start Date End Date Unknown, Provider, PCP - General 10/11/18
--- OUTSIDE RECORDS SUMMARY | 2024-08-15 01:30 | XMS_ITS ---
Author Organization [facility] Address [facility] [place] [address] Care Team Providers Care Injection Molding Process Technician Name Role Phone Subhash Dowling MD Primary Care Provider Active Problems Problem Noted Date Diagnosed Date Attention to urostomy 03/25/2020 Severe protein-calorie malnutrition 02/17/2020 Overview (02/17/2020): >5% weight loss in 1 month and Moderate lean muscle loss is consistent with severe protein-calorie malnutrition in the setting of acute illness or injury (Brandy et al, JPEN J Parenteral Enteral Nutr. 2012 November; [...] Signed by Rony Schaeffer MD on 08/31/2019 Current Oncology Plans No current plan information found. Past Plans ADULT TREATMENT Plan Name Start Date Discontinue Date Treatment Medications Discontinue Reason Plan Provider Cycles BCN AMB ONC -BLADDER CANCER - CISplatin / GEMcitabine (21 DAY SPLIT DOSE CISplatin) 0 05/28/2020 CISplatin (Platinol) in sodium chloride 0.9% 250 mL infusionGEMcitabine (Gemzar) in sodium chloride 0.9% 150 mL infusion Therapy Complete Aries Quiñones MD 4 of 4 cycles started Radiation Treatments * No radiation treatments are documented for this patient in [facility]. Treatments may have been administered in another system.
--- OUTSIDE RECORDS SUMMARY | 2024-08-15 01:31 | XMS_ITS | Encounter Summary ---
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; Intermittent claudication Social History Tobacco Use Types Packs/Day Years [...] as of this encounter Plan of Treatment Upcoming Encounters Date Type Department Care Team (Late Contact Info) Description 08/15/2024 11:30 AM EST Office Visit Hematology/Oncology at [address] [phone] Chanelle Kim [facility] [place] [address] Bee Curry [facility] [place] [address] documented as of this encounter Procedures Procedure Name Priority Date/Time Associated Diagnosis Comments PRG NON-INVASIVE PHYSIOLOGIC STUDY EXTREMITY ART 2 LEVEL Routine 07/25/2021 4:13 PM EST 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 Indications: infra aortic stenosis, ? change in ABIs. Diabetes mellitus: No Findings: Right ?Pressure (mm Hg) ?? KAMAR ??Waveform ? TBI ?? Brachial Artery ?122 ? Dorsalis Pedis (Ankle) Artery ?62 ?0.48 ??Monophasic ? Posterior Tibial (Ankle) Artery ??66 ?0.51 ??Monophasic ? Great Toe ?14 ?0.11 ?? Left ? Pressure (mm Hg) ?? KAMAR ??Waveform ?TBI ?? Brachial Artery ?130 ? Dorsalis Pedis (Ankle) Artery ?97 ?0.75 ??Nuckolls-Biphasic ? Posterior Tibial (Ankle) Artery ??115 ? 0.88 ??Nuckolls-Biphasic ? Great Toe ?34 ? 0.26 ?? Interpretation: RIGHT: Moderate lower extremity arterial occlusive disease. Toe-brachial index substantially lower than ankle-brachial index indicates presence of severe ischemia arterial occlusive disease in the foot/toe. Improvement in ABIs compared to previous exam. LEFT: Mild lower extremity arterial occlusive disease. Toe-brachial index substantially lower than ankle-brachial index indicates presence of severe ischemia arterial occlusive disease in the foot/toe. No significant change compared to previous exam. Previous ABIs with change from previous value: Date ?RIGHT DP ?? RIGHT PT ?? RT GR TOE ??RT Sec TOE ??0.36 ? 0.30 ? ---- ? ---- Current ? 0.48(+.12) 0.51(+.21) 0.11 ? ---- Date ?LEFT DP ?LEFT PT ?LT GR TOE LT Sec TOE ??0.71 ? 0.85 ? ---- ? ---- Current ? 0.75(+.04) 0.88(+.03) 0.26 ? 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
--- OUTSIDE RECORDS SUMMARY | 2024-08-15 01:31 | XMS_ITS | Encounter Summary ---
Author Organization [facility] Address [facility] [address] [place] [address] Care Team Providers Care Tower Cleaner Name Role Phone Subhash Dowling MD Primary Care Provider [phone] Encounter Details Date Type Department Care Team (Latest Contact Info) Description 01/19/2023 Travel Social History Tobacco Use Types Packs/Day Years [...] 11:30 AM EST Office Visit Hematology/Oncology at [address] [phone] Chanelle Kim [employer] [facility] [place] [address] Bee Curry [facility] [place] [address] documented as of this encounter Visit Diagnoses Not on filedocumented in this encounter Care Teams Tower Cleaner Relationship Specialty Start Date End Date Subhash Dowling MD [address] [place], [place] [address] PCP - General 06/03/10 documented as of this encounter
--- OUTSIDE RECORDS SUMMARY | 2024-08-15 01:31 | XMS_ITS | Encounter Summary ---
Author Organization [facility] Address [facility] [place] [address] Care Team Providers Care Porcelain Mixer Name Role Phone Subhash Dowling MD Primary Care Provider [phone] Encounter Details Date Type Department Care Team (Late st Contact Info) Description 11/12/2020 11:30 AM EDT Office Visit Hematology/Oncology at [address] [phone] rAies Quiñones MD [facility] [address] [place] [address] Chanelle Kim APRN [facility] [place] [address] Malignant neoplasm of urinary bladder, unspecified site; 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 Social History Tobacco Use Types Packs/Day Years [...] on file documented as of this encounter Last Filed Vital Signs Vital Sign Reading Time Taken Comments Blood Pressure 126/81 11/12/2020 11:51 AM EDT Pulse 73 11/12/2020 11:51 AM EDT Temperature 36.5 ??C (97.7 ??F) 11/12/2020 11:51 AM E DT Respiratory Rate 16 11/12/2020 11:51 AM EDT Oxygen Saturation 100% 11/12/2020 11:51 AM EDT Inhaled Oxygen Concentration - - Weight 57.2 kg (126 lb) 11/12/2020 11:51 AM EDT Height 167.6 cm (5' 5.98) 11/12/2020 11:51 AM E DT Body Mass Index 20.35 11/12/2020 11:51 AM EDT documented in this encounter Progress Notes * Areis Quiñones MD - 11/12/2020 11:30 AM EDT Images from the original note were not included. Diagnosis: High-grade bladder cancer, [id number] CC: I feel fine . HPI:Gt Aguilar is 70 y[address] referred by Dr. Hurley for a consultation on bladder cancer. He initially presented with hematuria more than a year ago. He was seen and followed with urologist Dr. Hurley. Urine cytology perform fineed on October 072018 was suspicious for high-grade urothelial carcinoma. He had abdominal pelvic CT scan on February 28 which showed obstructive mass of the bladder floor to left of midline there is secondary left hydroureter and hydronephrosis. There was no gross evidence of metastatic disease. He underwent TURBT on July 31. Pathology revealed muscular invasive urothelial carcinoma. He was referred to medical oncology and radiation oncology, but missed at least 3appointments due to transportation problem. Interval History:Mr. Aguilar returns to clinic in [facility] today for follow up of bladder cancer and discussion on restaging CT scan. Overall, he feels well. Denies any pain.Appetite is good.Denies any nausea or vomiting. He is still smoking but has cut back to 1/2 pack a day. No hematuria. PMH: No interval changes since last visit GERD, hypertension, hypercholesterolemia, hernia, peripheral vascular disease, COPD, history of hernia repair, right hip fracture, Social History: Smoker 2 packs a day for total of more than 110 pack-year smoking history. Drinks 2-3 beers several times a week, sometimes he drinks hard liquor as well. He lives by himself. 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 Lives alone. He has 2 children but he is not in touch with them Family History: Noncontributory Allergies: Allergies Allergen Reactions ??? Wellbutrin [Bupropion Hcl] Other (See Comments) Unknown on pt's chart from outside facility Medications: Your Medications Accurate as of November 12, 2020 12:08 PM. If you have any questions, ask your nurse or doctor. Continued medications, unchanged Dose Details acetaminophen 500 mg Tab Commonly known as: Tylenol Take 2 tablets by mouth every 6 hours as needed for Pain. 1,000 mg Quantity: 30 tablet Refills: 1 albuteroL 90 mcg/actuation Hfaa Inhale 2 puffs into the lungs every 4 hours as needed for Wheezing. Use with spacer 2 puff Refills: 0 aspirin EC 81 mg Tbec Take 81 mg by mouth daily. 81 mg Refills: 0 atorvastatin 20 mg Tab Commonly known as: Lipitor Take 20 mg by mouth daily. 20 mg Refills: 0 calcium carbonate 200 mg calcium (500 mg) Chew Commonly known as: Tums Take 2 tablets by mouth every 6 hours as needed for Heartburn. 1,000 mg Quantity: Refills: 0 dronabinoL 2.5 mg Cap Commonly known as: Marinol Take 2.5 mg by mouth 2 times daily (before meals). 2.5 mg Refills: 0 ergocalciferoL (vitamin D2) 200 mcg/mL (8,000 unit/mL) Drop Commonly known as: vitamin D2 6.25 mLs by Per G Tube route once a week. 50,000 Units Refills: 0 fluconazole 100 mg Tab Commonly known as: Diflucan Take 100 mg by mouth daily. 100 mg Refills: 0 melatonin 3 mg Tab Take 2 tablets by mouth nightly. 6 mg Quantity: Refills: 0 methylphenidate 5 mg Tab Commonly known as: Ritalin Take 2.5 tablets by mouth 2 times daily. OK to crush and give via Gtube. 12.5 mg Quantity: 150 tablet Refills: 0 metoprolol succinate XL 25 mg Tablet sr Commonly known as: Toprol-XL Take 1 tablet by mouth daily. 25 mg Quantity: 90 tablet Refills: 3 miconazole nitrate 2 % Oint Commonly known as: REMEDY PHYTOPLEX Apply BID to scrotum. Refills: 0 mirtazapine 7.5 mg Tab Commonly known as: REMERON Take 1 tablet by mouth nightly. 7.5 mg Quantity: Refills: [address] 40 mg Grps Commonly known as: Protonix 1 packet by Per G Tube route 2 times daily. 40 mg Quantity: Refills: 0 sucralfate 100 mg/mL Susp Commonly known as: Carafate Take 10 mLs by mouth 4 times daily. 1 g Refills: 0 Review of Systems: Constitutional: Maintaining weight. HEENT: Negative for sore throat, mouth sores and trouble swallowing. Eyes: Negative. Respiratory: Negative for cough, shortness of breath and wheezing. Smoker. Cardiovascular: Negative for chest pain, palpitations and leg swelling. Gastrointestinal: Negative for nausea, vomiting, abdominal pain, diarrhea and abdominal distention.Mild constipation-uses laxatives. Genitourinary: Negative for hematuria. Denies dysuria today. Musculoskeletal: Positive for muscle cramps in lower extremities with walking. Skin: Negative. Neurological: Negative. Hematological: Negative for adenopathy. PE: General: AAAx3, in NAD Head: Normocephalic, without obvious abnormality, atraumatic Eyes: PERRL, conjunctiva/corneas clear both eyes Ears: Normal TM's and external ear canals, both ears Nose: Nares normal, septum midline, mucosa normal, no drainage or sinus tenderness Throat: Lips, mucosa, and tongue normal; teeth and gums normal Neck: Supple, symmetrical, trachea midline, no adenopathy, thyroid: not enlarged, symmetric, no tenderness/mass/nodules, no carotid bruit or JVD Back: Symmetric, no curvature, ROM normal, no CVA tenderness Lungs: Clear to auscultation bilaterally, respirations unlabored. Diminished breath sounds throughout. Chest Wall: No tenderness or deformity. [facility] Heart: Regular rate and rhythm, S1, S2 normal, no murmur, rub or gallop Abdomen: Ostomy is clean. Soft, non-tender, bowel sounds active all four quadrants, no masses, no organomegaly. There is no appreciable ascites Extremities: Extremities normal, atraumatic, no cyanosis or edema . R leg shorter than left leg. Pulses: 2+ and symmetric Skin: Skin color, texture, turgor normal, no rashes or lesions Lymph nodes: Cervical, supraclavicular, and axillary nodes normal Neurologic: Normal Vitals BP 126/81 (Patient Position: Sitting) Pulse 73 Temp 36.5 ??C (97.7 ??F) (Temporal) Resp 16 Ht 167.6 cm (5' 5.98) Wt 57.2 kg (126 lb) SpO2 100% BMI 20.35 kg/m?? Pathology: 02/13/2020 had a cystoprostatectomy +ileal conduit SYNOPTIC Specimen Parts: ??A to L Specimen ?Procedure: ??Radical cystoprostatectomy Tumor ?Tumor Site: ??Left lateral wall; ??left ureteral orifice ?Histologic Type: ??Urothelial carcinoma invasive . SYNOPTIC ?Histologic Grade: ??High-grade ?Tumor Size: ??2.4 Centimeters (cm) ?Tumor Extension: ??Tumor invades perivesical soft tissue - Microscopically ?Lymphovascular Invasion: ??Cannot be determined - Suspicious ?Tumor Configuration: ??Solid / nodule Margins ?Margins: ??Uninvolved by invasive carcinoma and carcinoma in situ / ? noninvasive urothelial carcinoma Lymph Nodes ?Number of Lymph Nodes Involved: ??0 ?Number of Lymph Nodes Examined: ??26 Pathologic Stage Classification (pTNM, AJCC 8th Edition) ?TNM Descriptors: ??y (post-treatment) ?Primary Tumor (pT): ??pT3a Additional Findings ?Additional Findings: ??Therapy-related changes - fibrosis and focal chronic ? inflammation in the bladder wall; ??Benign prostate with glandular and ? stromal hyperplasia and focal acute inflammation Tumor Block(s): ??D4, D6, D8, D9, D11 Normal Block(s): ??D17, D18 CAP eCC August 2019 Annual Release 07/31/2019 Urinary bladder, site not specified, mass, TURBT: - High grade urothelial carcinoma, invasive into muscularis propria and asuncion-muscular ??bundle adipose tissue. - Focal urothelial carcinoma in situ Labs: 10/11/2020 WBC 6.4, hemoglobin 14.7, platelet count 127, ANC 4.01, BUN 19, creatinine 1.2, calcium 9.2, albumin 4.3, TB 0.5, alkaline phosphatase 106, ALT 15, AST 24 07/29/2020 WBC 6.4, hemoglobin 14.3, platelet count 125, BUN 19, creatinine 1.1, calcium 9.3, [id number], total protein 6.7, albumin 4.0, TB 0.3 alkaline phosphatase 105, ALT 19, AST 25. 12/26/2019 WBC 9.41, hemoglobin 12.2, platelet count 101, ANC 7.72, BUN 24, creatinine 1.18, calcium8.9, magnesium 2.0, TB 0.5, AST 10, ALT 16, alkaline phosphatase 115, total protein 7.0, albumin 3.3. 12/19/19- WBC-5.74 Hgb/Hct-12.5/37.6 Plt-188 ANC-3.60 BUN/Cr-12/1.21 Mg-2.2 Alk phos-166 Lytes/LFTs 12/05/2019 WBC 10.96, hemoglobin 12.8, platelet count 280, ANC 7.85, sodium 136, potassium 4.4, BUN 16, creatinine 1.06, calcium 8.7, AST 18, ALT 21, alkaline phosphatase 163, total protein 6.7, albumin 3.3 11/14/2019 WBC 11.41, hemoglobin 13.0, platelet count 199, ANC 8.48, BUN 20, creatinine 1.28, calcium9.1, TB 0.4, AST 13, ALT 21, alkaline phosphatase 183, total protein 7.0, albumin 3.3. 11/07/19- WBC-21.41 Hgb/Hct-13.9/40.4 Plt-302 ANC-16.16 BUN/Cr-161.23 Lytes and LFTS unremarkable Alk phos-222 Albumin-3.3 10/24/19- WBC-6.11 Hgb/Hct-14.2/41.8 Plts-121 ANC-3.78 BUN/Cr-1.28 Lytes and LFTS unremarkable Alk phos-156 Albumin-3.5 10/05/19- WBC-9.8 Hgb/Hct-15.4/47.3 Plt-194 ANC-7.14 K+-4.5 BUN/Cr-14/1.17 Ca-9.6 Albumin-4.4 Imagin10/11/20 CT scan chest, abdomen and pelvis with contrast: Impression: No acute abnormality noted. Mild centrilobular emphysema. Vascular calcification, granulomatous disease, status post cystectomy with surgical glue. Stable left para-aortic lymph nodes. 10/05/19- PET-IMPRESSION 1. A 5 cm FDG avid left bladder wall malignancy extending to the bladder base, and causing severe left hydroureteronephrosis which has worsened compared to prior CT of 02/2019. 2. Small nathaly metastases in the bilateral external iliac regions. 3. No distant sites of metastasis. 02/28/2019 CT abdomen pelvis: Conclusion: Obstructing mass of the bladder floor to the left of midline. Secondary left hydroureter and hydronephrosis. The findings are highly suggestive for bladder carcinoma. No gross evidence ofmetastatic disease. Assessment and Plan: Diagnosis: High-grade urothelial carcinoma of bladder, muscular invasive Treatment: -07/31/[address] Hurley -10/17/2019-12/25/19 4 cycles of cisplatin 35 mg/m?? days 1 and 8 and gemcitabine 1000 mg/m?? day 1 and 8 -02/13/2020 had a cystoprostatectomy +ileal conduit Mr. Aguilar is 70 years old gentleman with diagnosis of muscular invasive bladder cancer. He had CT scan more than 6 months ago. Given his aggressive nature of that cancer we restaged him with PET scan. PET scan showed small pelvic lymph node mets. We discussed prognosis of bladder cancer and probability of metastatic disease if we left it untreated. We discussed the treatment options including surgery versus chemoradiation versus palliative care. He would like to be treated. He met with Dr. Armstrong. He will be back to with the stoma therapist appointment and PET scan on December 28 Mr. Aguilar received 4 cycles of neoadjuvant cisplatin and Gemzar. He underwent cystoprostatectomy in ileal conduit on February 13, 2020. Postop course was prolonged due to multiple issues. Today he feels well. Denies any pain. No fever or chills. CT scan was personally reviewed. I do not see any obvious signs of some recurrence. We will ask freddie FONTAINE. I will see him back with blood work and CT scan in 3 months #Social situation: He is not able to read, has difficult social situation living alone and not having transportation, I do not know if he has official disability and what his insight is in his disease/prognosis # Tobacco cessation- He states he has cut back to 1/2 pack of cigarettes a day. Not interested to quit Plan: 1. Observation 2. Next visit in 3 months with CBC, CMP and CT scan Mr. Aguilar voiced understanding of the plan and was given an opportunity to ask questions which I answered to the best of my ability. Mr. Aguilar understands he can call the clinic between visits withany questions/concerns or new symptoms. documented in this encounter Plan of Treatment Upcoming Encounters Date Type Department Care Team (Late st Contact Info) Description 08/15/2024 11:30 AM EST Office Visit Hematology/Oncology at [address] [phone] Chanelle Kim, [facility] [place] [address] [facility] [address] documented as of this encounter Visit Diagnoses Diagnosis Malignant neoplasm of urinary bladder, unspecified site 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 Malignant neoplasm of bladder, part unspecified documented in this encounter Care Teams Porcelain Mixer Relationship Specialty Start Date End Date Subhash Dowling MD [address] [place] [address] PCP - General 06/03/10 documented as of this encounter
--- OUTSIDE RECORDS SUMMARY | 2024-08-15 01:31 | XMS_ITS | Encounter Summary ---
Author Organization [facility] [place] [address] Care Team Providers Care Certified Wellness Program Manager Name Role Phone Subhash Dowling MD Primary Care Provider [phone] Encounter Details Date Type Department Care Team (Late Contact Info) Description 02/05/2023 Ancillary Procedure Radiology Library at [facility] [place] [phone] Aries Quiñones MD [facility] [place] [address] Social History Tobacco Use Types Packs/Day Years [...] 11:30 AM EST Office Visit Hematology/Oncology at [address] [phone] Chanelle Kim [facility] [place] [address] Bee Curry AUTOMOBILE REPAIR SERVICE ESTIMATOR [facility] [place] [address] documented as of this encounter Procedures Procedure Name Priority Date/Time Associated Diagnosis Comments FILM LIBRARY STORAGE ONLY CT CHEST ABDOMEN PELVIS Routine 02/05/2023 12:00 AM EDT documented in this encounter Results * Film Library- Storage Only CT Chest Abdomen Pelvis (02/05/2023 12:00 AM EDT) Narrative [place] - 08/18/2023 9:23 AM EST This exam is auto-finalizing. It's purpose is for storage only. Aries Quiñones MD IMG FILM LIBRARY ORD ERABLES Performing Organization Address City/State/[facility] Co de Phone Number [place], [place] documented in this encounter Visit Diagnoses Not on filedocumented in this encounter Care Teams Certified Wellness Program Manager Relationship Specialty Start Date End Date Subhash Dowling MD [address] [place] [id number] PCP - General 06/03/10 documented as of this encounter
--- OUTSIDE RECORDS SUMMARY | 2024-08-15 01:31 | XMS_ITS | Encounter Summary ---
[place] [address] Care Team Providers Care Hand Etcher Name Role Phone Subhash Dowling MD Primary Care Provider [phone] Reason for Visit * Reason Onset Date Comments Other [facility] Encounter Details Date Type Department Care Team (Late st Contact Info) Description 08/27/2020 Telephone Hematology/Oncology at [address] [phone] Nadia Mueller MSW OFFICE OF CARE MANAGEMENT Other (transport[place] plan review) Social History Tobacco Use Types Packs/Day Years [...] encounter Miscellaneous Notes * Telephone Encounter - Nadia Mueller MSW - 08/27/2020 10:18 AM EST Transportation Plan Review Transportation service provider: LENA @ [phone] Person coordinating transportation: Nadia Mueller, @ [phone] Transportation request submitted to service provider: waiting to schedule ride with LENA closer to November appointment Reviewed/matched transportation request with appointment schedule: Patient has contact information to transportation provider: yes Actions taken today: None documented in this encounter Plan of Treatment Upcoming Encounters Date Type Department Care Team (Late st Contact Info) Description 08/15/2024 11:30 AM EST Office Visit Hematology/Oncology at [address] [phone] Chanelle Kim [facility] [place] [address] Bee Curry [facility] [place] [address] documented as of this encounter Visit Diagnoses Not on filedocumented in this encounter Care Teams Hand Etcher Relationship Specialty Start Date End Date Subhash Dowling MD [address] [place] [id number] PCP - General 06/03/10 documented as of this encounter
--- OUTSIDE RECORDS SUMMARY | 2024-08-15 01:31 | XMS_ITS | Encounter Summary ---
Author Organization [facility] [place] [address] Care Team Providers Care Hanger Name Role Phone Subhash Dowling MD Primary Care Provider [phone] Encounter Details Date Type Department Care Team (Late Contact Info) Description 01/21/2023 Telephone Hematology/Oncology at [address] [phone] Nancy Ramirez Social History Tobacco Use Types [...] * Telephone Encounter - Nancy Ramirez - 01/21/2023 1:56 PM EDT I called to speak with Gt and his roommate. The roommate is not there and if I could call back later this evening. To go over the questions for the ct documented in this encounter Plan of Treatment Upcoming Encounters Date Type Department Care Team (Late Contact Info) Description 08/15/2024 11:30 AM EST Office Visit Hematology/Oncology at [address] [phone] Chanelle Kim, [facility] [place] [address] Bee Curry [facility] [place] [address] documented as of this encounter Visit Diagnoses Not on filedocumented in this encounter Care Teams Hanger Relationship Specialty Start Date End Date Subhash Dowling MD [address] [place] [id number] PCP - General 06/03/10 documented as of this encounter
--- OUTSIDE RECORDS SUMMARY | 2024-08-15 01:31 | XMS_ITS | Encounter Summary ---
Author Organization [facility] [place] [address] Care Team Providers Care Wagon Driver Salesperson Name Role Phone Subhash Dowling MD Primary Care Provider [phone] Reason for Visit * Reason Onset Date Comments Other 10/08/2020 transportation p nadir review Encounter Details Date Type Department Care Team (Late st Contact Info) Description 10/08/2020 Telephone Hematology/Oncology at [address] [phone] Nadia Mueller MSW OFFICE OF CARE MANAGEMENT Other (transportation plan review) Social History Tobacco Use Types [...] Telephone Encounter - Nadia Mueller MSW - 10/08/2020 7:47 AM EDT Transportation Plan Review Transportation service provider: LENA @ [phone] Person coordinating transportation: Nadia Mueller, @ [phone] Transportation request submitted to service provider: ride set up for 11-12-20 provider visit Reviewed/matched transportation request with appointment schedule: yes Patient has contact information to transportation provider: yes Actions taken today: none documented in this encounter Plan of Treatment Upcoming Encounters Date Type Department Care Team (Late st Contact Info) Description 08/15/2024 11:30 AM EST Office Visit Hematology/Oncology at [address] [phone] Chanelle Kim, [facility] [place] [address] Bee Curry [facility] [place] [address] documented as of this encounter Visit Diagnoses Not on filedocumented in this encounter Care Teams Wagon Driver Salesperson Relationship Specialty Start Date End Date Subhash Dowling MD [address] [place] [id number] PCP - General 06/03/10 documented as of this encounter
--- OUTSIDE RECORDS SUMMARY | 2024-08-15 01:31 | XMS_ITS | Encounter Summary ---
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 Intermittent claudication Procedures KAMAR, legs, multiple levels Ingrid Holm APRN [facility] [place] [address] [facility] [place] [address] [place] [address] Referral ID Status Reason Start Date Expiration Date V isits Requested Visits Authorized [id number] Closed Specialty Service Requested 06/23/2021 06/23/2022 1 1 Encounter Details Date Type Department Care Team (Late st Contact Info) Description 06/23/2021 Orders [place] [address] Ingrid Holm APRN Stenosis of infrarenal abdominal aorta due to [...] 11:30 AM EST Office Visit Hematology/Oncology at [address] [phone] Chanelle Kim APRN [facility] [place] [address] Bee Curry APRN [facility] [address] documented as of this encounter Results * KAMAR, legs, multiple levels (07/25/2021 4:13 PM EST) VB Text Report Department: Vascular Surgery Lab Patient: [id number] (WALLY MARINELLI) CPT: 31245 Referring Physician: INGRID HOLM APRN ?? Indications: [...] ? Dorsalis Pedis (Ankle) Artery ?97 ?0.75 ??[place]-Biphasic ? Posterior Tibial (Ankle) Artery ??115 ? 0.88 ??[place]-Biphasic ? Great Toe ?34 ? 0.26 ?? 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
--- OUTSIDE RECORDS SUMMARY | 2024-08-15 01:31 | XMS_ITS | Encounter Summary ---
Author Organization [facility] Address [facility] [address] [address] Care Team Providers Care Title Attorney Name Role Phone Subhash Dowling MD Primary Care Provider [phone] Encounter Details Date Type Department Care Team (Latest Contact Info) Description 12/22/2022 Travel Social History Tobacco Use Types Packs/Day [...] 11:30 AM EST Office Visit Hematology/Oncology at [address] [phone] Chanelle Kim COMMUNITY EDUCATION COORDINATOR [facility] [place] [address] Bee Curry [facility] [place] [address] documented as of this encounter Visit Diagnoses Not on filedocumented in this encounter Care Teams Title Attorney Relationship Specialty Start Date End Date Subhash Dowling MD [address] [place], [place] [id number] PCP - General 06/03/10 documented as of this encounter
--- OUTSIDE RECORDS SUMMARY | 2024-08-15 01:31 | XMS_ITS | Encounter Summary ---
Author Organization [facility] [place] [address] Care Team Providers Care Cafeteria Associate Name Role Phone Subhash Dowling MD Primary Care Provider [phone] Encounter Details Date Type Department Care Team (Late Contact Info) Description 06/11/2022 Telephone Hematology/Oncology at [address] [phone] Radha Nicole Social History Tobacco Use Types Packs/Day Years [...] encounter Miscellaneous Notes * Telephone Encounter - Radha Webb - 06/11/2022 10:26 AM EST Gt did not go for his scheduled scan in May at [facility]. We have talked to him and his caregiver. They were supposed to call to reschedule. I spoke to [facility] today (06/11/22) they have left messagesfor Ketty to call them back to reschedule the scan. documented in this encounter Plan of Treatment Upcoming Encounters Date Type Department Care Team (Late Contact Info) Description 08/15/2024 11:30 AM EST Office Visit Hematology/Oncology at [address] [phone] Chanelle Kim, [facility] [place] [address] Bee Curry [facility] [place] [address] documented as of this encounter Visit Diagnoses Not on filedocumented in this encounter Care Teams Cafeteria Associate Relationship Specialty Start Date End Date Subhash Dowling MD [address] [place] [address] PCP - General 06/03/10 documented as of this encounter
--- OUTSIDE RECORDS SUMMARY | 2024-08-15 01:31 | XMS_ITS | Encounter Summary ---
Author Organization [facility] Address [facility] [place] [address] Care Team Providers Care Devops Name Role Phone Subhash Dowling MD Primary Care Provider [phone] Encounter Details Date Type Department Care Team (Late st Contact Info) Description 06/24/2021 2:00 PM EST Office Visit Hematology/Oncology at [address] [phone] Aries Quiñones MD [facility] [address] [place] [address] Chanelle Kim APRN [facility] [place] [address] Malignant neoplasm of urinary bladder, unspecified site (Primary Dx); Tobacco abuse Social History Tobacco Use Types Packs/Day Years [...] Sign Reading Time Taken Comments Blood Pressure 131/80 06/24/2021 2:06 PM EST Pulse 88 06/24/2021 2:06 PM EST Temperature 36.9 ??C (98.4 ??F) 06/24/2021 2:06 PM ES T Respiratory Rate 16 06/24/2021 2:06 PM EST Oxygen Saturation 98% 06/24/2021 2:06 PM EST Inhaled Oxygen Concentration - - Weight 59.4 kg (131 lb) 06/24/2021 2:06 PM EST Height 167.6 cm (5' 5.98) 06/24/2021 2:06 PM ES T Body Mass Index 21.15 06/24/2021 2:06 PM EST documented in this encounter Progress Notes * Aries Quiñones MD - 06/24/2021 2:00 PM EST Images from the original note were not included. Diagnosis: High-grade bladder cancer, [id number] HPI:Gt Aguilar is 70 y.o. referred by [...] least 3appointments due to transportation problem. Interval History:(06/24/21)- Gt returns to the [facility] for follow up for muscular invasive bladder cancer s/p cystoprostatectomy with ileal conduit and discussion on restaging CT scan.. He is doing well today. He is living at home now and has a friend that lives with him. He has someone help him with his medications. Complains on leg pain when he walks around. Dr. Degroot refer him to vascular surgeon for severel infrarenal abdominal aortic stenosis. Appetite is good. He gets out and walks. l. He has adjusted to the ileal conduit but still would like it gone. . He is smoking a pack a day. No hematuria. No cough, shortness of breath or edema. Denies any bowel issues. PMH: No interval changes since last visit Hospitalization 02/13/20-03/07/20- Cystoprostatectomy with ileal conduit. All surgical margins were negative. None of 26 removed nodes showed evidence of cancer. GERD, hypertension, hypercholesterolemia, hernia, peripheral vascular disease, COPD, history of hernia repair, right hip fracture, Social History: Smoker 2 packs a day for total of more than 110 pack-year smoking history. Drinks 2-3 beers several times a week, sometimes he drinks hard liquor as well. He has a friend living with him. 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 Lives alone. He has 2children but he is not in touch with them. He does not read. Family History: Noncontributory Allergies: Allergies Allergen Reactions ??? Wellbutrin [Bupropion Hcl] Other (See Comments) Unknown on pt's chart from outside facility Medications: Your Medications Accurate as of June 24, 2021 2:16 PM. If you have any questions, ask [...] by mouth daily. 20 mg Refills: 0 Review of Systems: Constitutional: Maintaining weight. HEENT: Negative for sore throat, mouth sores and trouble swallowing. Eyes: Negative. Respiratory: Negative for cough, shortness of breath and wheezing. Smoker. Cardiovascular: Negative for chest pain, palpitations and leg swelling. Gastrointestinal: Negative for nausea, vomiting, abdominal pain, diarrhea and abdominal distention.Mild constipation-uses laxatives. Genitourinary: Negative for hematuria. Musculoskeletal: Leg pain while walking Skin: Negative. Neurological: Negative. Hematological: Negative for adenopathy. PE: General: AAAx3, in NAD Head: Normocephalic, without obvious abnormality, atraumatic Eyes: PERRL, conjunctiva/corneas clear both eyes Ears: Normal external ear canals, both ears Nose: Nares [...] throughout. Chest Wall: No tenderness or deformity. Mediport Heart: Regular rate and rhythm, S1, S2 normal, no murmur, rub or gallop Abdomen: Ileal conduit. Urine clear yellow with mucous. Stoma pink. Soft, non-tender, bowel sounds active all four quadrants, no masses, no organomegaly. There is no appreciable ascites Extremities: Extremities normal, atraumatic, no cyanosis or edema . R leg shorter than left leg. Pulses: 2+ and symmetric Skin: Skin color, texture, turgor normal, no rashes or lesions Lymph nodes: Cervical, supraclavicular, and axillary nodes normal Neurologic: Normal Vitals BP 131/80 (Patient Position: Sitting) Pulse 88 Temp 36.9 ??C (98.4 ??F) (Temporal) Resp 16 Ht 167.6 cm (5' 5.98) Wt 59.4 kg (131 lb) SpO2 98% BMI 21.15 kg/m?? Pathology: 02/13/2020 had a cystoprostatectomy +ileal [...] - Focal urothelial carcinoma in situ Labs: 06/04/2021 WBC eight, hemoglobin 15.5, platelet count 139, BUN 24, creatinine 1.4, calcium 9.5, TB 0.4, alkaline phosphatase 124, ALT 15, AST 15 02/11/21- WBC-7.48 Hgb/Hct-15.3/45.1 Plt-142 ANC-5.01 Na-139 K+-4.6 BUN/cr-26/1.3 Glucose-107 Ca-9.4 T. Bili-0.4 AST-12 ALT-17 Alk phos-116 Albumin-3.9 10/11/2020 WBC 6.4, hemoglobin 14.7, platelet count 127, ANC 4.01, BUN 19, creatinine 1.2, calcium 9.2, albumin 4.3, TB 0.5, alkaline phosphatase 106, ALT 15, AST 24 07/29/2020 WBC 6.4, hemoglobin 14.3, platelet count 125, BUN 19, creatinine 1.1, calcium 9.3, [id number], total protein 6.7, albumin 4.0, TB 0.3 [...] albumin 3.3. 11/07/19- WBC-21.41 Hgb/Hct-13.9/40.4 Plt-302 ANC-16.16 BUN/Cr-16/1.23 Lytes and LFTS unremarkable Alk phos-222 Albumin-3.3 10/24/19- WBC-6.11 Hgb/Hct-14.2/41.8 Plts-121 ANC-3.78 BUN/Cr-20/1.28 Lytes and LFTS unremarkable Alk phos-156 Albumin-3.5 10/05/19- WBC-9.8 Hgb/Hct-15.4/47.3 Plt-194 ANC-7.14 K+-4.5 BUN/Cr-14/1.17 Ca-9.6 Albumin-4.4 Imagin06/04/2021 CT scan chest abdomen pelvis without contrast: Impression: Stable exam. No evidence of metastatic disease within the chest, abdomen or pelvis. No evidence of hydronephrosis. Chronic left renal atrophy. Redemonstrated evidence of severe infrarenalabdominal aortic stenosis. 02/05/21- CT Chest, abdomen, pelvis- Impression- 1. No evidence of metastatic disease. 2. Postoperative changes with cystectomy and ileal conduit. 3. Negative for hydronephrosis. 4. Chronic atrophy left kidney. 5. Severe arteriosclerotic calcifications. Stenosis in the infrarenal abdominal aorta is suspected. 6. Cholelithiasis 7. Granulomatous disease. CT chest- Impression- No evidence of thoracic metastatic disease. 10/11/20 CT scan chest, abdomen and pelvis with [...] with diagnosis of muscular invasive bladder cancer. [id number] Mr. Aguilar received 4 cycles of neoadjuvant cisplatin and Gemzar. He underwent cystoprostatectomy in ileal conduit on February 13, 2020. Postop course was prolonged due to multiple issues- acute blood loss anemia, diarrhea, severe protein calorie malnutrition, esophagitis and depression. Today he feels well. Denies any pain. No fever or chills. He has adjusted to ileal conduit. He is living at home again and doing quite well. 06/24/21 CT scan is negative for cancer recurrence. He is doing well oncoological standpoint He continues to follow up with Dr. [facility] and his PCP Dr Dowling. Smoking: Smokes a pack a day. Not interested in quitting #Aortic aneurysm: Was referred to vascular surgeon. Appointment scheduled in July. Plan: 1. Continue surveillance visits every [address] scan for 1-2 years. 2. Next visit in 3 months with CBC, CMP and CT scan Mr. Aguilar voiced understanding of the plan and was given an opportunity to ask questions which I answered to the best of my ability. Mr. Aguilar understands he can call the clinic between visits withany questions/concerns or new symptoms. 30 minutes of this visit was spent in Counseling including discussion of diagnostic results, cancersurvivorship recommendations and risk factor reduction with patient education. documented in this encounter Plan of Treatment Upcoming Encounters Date Type Department Care Team (Late st Contact Info) Description 08/15/2024 11:30 AM EST Office Visit Hematology/Oncology at [address] [phone] Chanelle Kim, [facility] [place] [address] Bee Curry, [facility] [place] [address] documented as of this encounter Visit Diagnoses Diagnosis Malignant neoplasm of urinary bladder, unspecified site- Primary Tobacco abuse Tobacco use disorder documented in this encounter Care Teams Devops Relationship Specialty Start Date End Date Subhash Dowling MD [address] [place] [address] PCP - General 06/03/10 documented as of this encounter
--- OUTSIDE RECORDS SUMMARY | 2024-08-15 01:31 | XMS_ITS | Encounter Summary ---
Author Organization [facility] [place] [address] Care Team Providers Care Paper And Prints Restorer Name Role Phone Subhash Dowling MD Primary Care Provider [phone] Reason for Visit * Reason Onset Date Comments Other 09/17/2020 transportation p nadir review Encounter Details Date Type Department Care Team (Late st Contact Info) Description 09/17/2020 Telephone Hematology/Oncology at [address] [phone] Nadia Mueller MSW OFFICE OF [...] Telephone Encounter - Nadia Mueller MSW - 09/17/2020 8:13 AM EST Transportation Plan Review Transportation service provider: LENA @ [phone] Person coordinating transportation: Nadia Mueller, @ [phone] Transportation request submitted to service provider: yes for 11-12-20 provider visit Reviewed/matched transportation request with appointment schedule: yes Patient has contact information to transportation provider: yes Actions taken today: none documented in this encounter Plan of Treatment Upcoming Encounters Date Type Department Care Team (Late st Contact Info) Description 08/15/2024 11:30 AM EST Office Visit Hematology/Oncology at [address] [phone] Chanelle Kim, [facility] [place] [address] Bee Curry [facility] [address] documented as of this encounter Visit Diagnoses Not on filedocumented in this encounter Care Teams Paper And Prints Restorer Relationship Specialty Start Date End Date Subhash Dowling MD [address] [place] [address] PCP - General 06/03/10 documented as of this encounter
--- OUTSIDE RECORDS SUMMARY | 2024-08-15 01:31 | XMS_ITS | Encounter Summary ---
Author Organization [facility] [place] [address] Care Team Providers Care Business Services Administrator Name Role Phone Subhash Dowling MD Primary Care Provider [phone] Reason for Visit * Reason Onset Date Comments Other 09/03/2020 transportation p nadir review Encounter Details Date Type Department Care Team (Late st Contact Info) Description 09/03/2020 Telephone Hematology/Oncology at [address] [phone] Nadia Mueller MSW OFFICE OF [...] Telephone Encounter - Nadia Mueller MSW - 09/03/2020 7:56 AM EST Transportation Plan Review Transportation service provider: LENA @ [phone] Person coordinating transportation: Nadia Mueller, @ [phone] Transportation request submitted to service provider: not at this time. Will request ride closer tohis appt scheduled for 11-12-20 Reviewed/matched transportation request with appointment schedule: Patient has contact information to transportation provider: yes Actions taken today: none documented in this encounter Plan of Treatment Upcoming Encounters Date Type Department Care Team (Late st Contact Info) Description 08/15/2024 11:30 AM EST Office Visit Hematology/Oncology at [address] [phone] Chanelle Kim [facility] [address] Bee Curry [facility] [place] [address] documented as of this encounter Visit Diagnoses Not on filedocumented in this encounter Care Teams Business Services Administrator Relationship Specialty Start Date End Date Subhash Dowling MD [address] [place] [address] PCP - General 06/03/10 documented as of this encounter
--- OUTSIDE RECORDS SUMMARY | 2024-08-15 01:31 | XMS_ITS | Encounter Summary ---
Author Organization [facility] [place] [address] Care Team Providers Care Fpga Engineer Name Role Phone Subhash Dowling MD Primary Care Provider Encounter Details Date Type Department Care Team (Late Contact Info) Description 06/30/2022 Ancillary Procedure Radiology Library at [facility] [place] [address] Subhash Dowling MD [address] [place] [address] Social History Tobacco Use Types Packs/Day Years [...] 11:30 AM EST Office Visit Hematology/Oncology at [address] [phone] Chanelle Kim DESTINATION SIGN REPAIRER [facility] [place] [address] Bee Curry DESTINATION SIGN REPAIRER [facility] [place] [address] documented as of this encounter Procedures Procedure Name Priority Date/Time Associated Diagnosis Comments FILM LIBRARY STORAGE ONLY CT CHEST ABDOMEN PELVIS Routine 06/30/2022 12:00 AM EST documented in this encounter Results * Film Library- Storage Only CT Chest Abdomen Pelvis (06/30/2022 12:00 AM EST) Narrative [facility] - 07/01/2022 6:23 AM EST This exam is auto-finalizing. It's purpose is for storage only. Subhash Dowling MD IMG FILM LIBRARY ORD ERABLES Performing Organization Address City/State/[facility] Co de Phone Number [place], [place] documented in this encounter Visit Diagnoses Not on filedocumented in this encounter Care Teams Fpga Engineer Relationship Specialty Start Date End Date Subhash Dowling MD [address] [place] [address] PCP - General 06/03/10 documented as of this encounter
--- OUTSIDE RECORDS SUMMARY | 2024-08-15 01:31 | XMS_ITS | Encounter Summary ---
Author Organization [facility] [place] [address] Care Team Providers Care Line Maintainer Name Role Phone Subhash Dowling MD Primary Care Provider [phone] Reason for Visit * Reason Onset Date Comments Other 08/13/2020 transportation p nadir review Encounter Details Date Type Department Care Team (Late st Contact Info) Description 08/13/2020 Telephone Hematology/Oncology at [address] [phone] Nadia Mueller MSW OFFICE OF [...] Telephone Encounter - Nadia Mueller MSW - 08/13/2020 8:20 AM EST Transportation Plan Review Transportation service provider: LENA @ [phone] Person coordinating transportation:friend Ketty Brianna Mueller, @ [phone] Transportation request submitted to service provider: has early November appointment and will schedule ride closer to the date. Reviewed/matched transportation request with appointment schedule: Patient has contact information to transportation provider: yes Actions taken today: none documented in this encounter Plan of Treatment Upcoming Encounters Date Type Department Care Team (Late st Contact Info) Description 08/15/2024 11:30 AM EST Office Visit Hematology/Oncology at [address] [phone] Chanelle Kim [facility] [place] [address] Bee Curry [facility] [place] [address] documented as of this encounter Visit Diagnoses Not on filedocumented in this encounter Care Teams Line Maintainer Relationship Specialty Start Date End Date Subhash Dowling MD [address] [place] [address] PCP - General 06/03/10 documented as of this encounter
--- OUTSIDE RECORDS SUMMARY | 2024-08-15 01:31 | XMS_ITS | Encounter Summary ---
Author Organization [facility] [address] Care Team Providers Care Hide Inspector Name Role Phone Subhash Dowling MD Primary Care Provider [phone] Reason for Visit * Reason Onset Date Comments Other 08/15/2020 transportation p nadir review Encounter Details Date Type Department Care Team (Late st Contact Info) Description 08/15/2020 Telephone Hematology/Oncology at [address] [phone] Nadia Mueller MSW OFFICE OF [...] Telephone Encounter - Nadia Mueller MSW - 08/15/2020 7:54 AM EST Transportation Plan Review Transportation service provider: LENA @ [phone] Person coordinating transportation: Nadia Mueller, @ [phone] Transportation request submitted to service provider: will schedule rides with LENA closer to November appointment date Reviewed/matched transportation request with appointment schedule: Patient has contact information to transportation provider: yes Actions taken today: none documented in this encounter Plan of Treatment Upcoming Encounters Date Type Department Care Team (Late st Contact Info) Description 08/15/2024 11:30 AM EST Office Visit Hematology/Oncology at [address] [phone] Chanelle Kim, [facility] [place] [address] Bee Curry [facility] [place] [address] documented as of this encounter Visit Diagnoses Not on filedocumented in this encounter Care Teams Hide Inspector Relationship Specialty Start Date End Date Subhash Dowling MD [address] [place] [address] PCP - General 06/03/10 documented as of this encounter
--- OUTSIDE RECORDS SUMMARY | 2024-08-15 01:31 | XMS_ITS | Encounter Summary ---
[place] [address] Care Team Providers Care Director Clinical Information Services Name Role Phone Subhash Dowling MD Primary Care Provider [phone] Reason for Visit * Reason Onset Date Comments Other 01/19/2023 transportation Encounter Details Date Type Department Care Team (Late st Contact Info) Description 01/19/2023 Telephone Hematology/Oncology at [address] [phone] Nadia Mueller BOTTLE MACHINE OPERATOR OFFICE OF CARE MANAGEMENT Other (transportation) Social History Tobacco Use Types Packs/Day Years [...] Telephone Encounter - Nadia Mueller MSW - 01/19/2023 9:23 AM EDT Request from Dora Anderson RN to reach out to Gt re transportation to a scan that he needs and his caregiver Ketty did not take him to. Reviewing past notes indicate that Gt has used [facility] for transportation to medical appointments. TC Gt and spoke to roommate Subhash. Reminded Subhash that [facility] is an option to Gt to get to medical appointments. BOTTLE MACHINE OPERATOR updated Ms. Leithhead, RN and is waiting for confirmation as to date/time/place os scan and will reach out to gt again to make sure a ride is set up for this. Brief assessment Care Coordination Transportation resources documented in this encounter Plan of Treatment Upcoming Encounters Date Type Department Care Team (Late st Contact Info) Description 08/15/2024 11:30 AM EST Office Visit Hematology/Oncology at [address] [phone] Chanelle Kim, [facility] [place] [address] Bee Curry [facility] [place] [address] documented as of this encounter Visit Diagnoses Not on filedocumented in this encounter Care Teams Director Clinical Information Services Relationship Specialty Start Date End Date Subhash Dowling MD [address] [place] [address] PCP - General 06/03/10 documented as of this encounter
--- OUTSIDE RECORDS SUMMARY | 2024-08-15 01:31 | XMS_ITS | Encounter Summary ---
[place] [address] Care Team Providers Care Stock Handler Floorperson Name Role Phone Subhash Dowling MD Primary Care Provider [phone] Reason for Visit * Reason Onset Date Comments Other 10/29/2020 transportation p nadir review Encounter Details Date Type Department Care Team (Late st Contact Info) Description 10/29/2020 Telephone Hematology/Oncology at [address] [phone] Nadia Mueller MSW OFFICE OF [...] Telephone Encounter - Nadia Mueller MSW - 10/29/2020 8:48 AM EDT Transportation Plan Review Transportation service provider: LENA @ [phone] Person coordinating transportation: Nadia Mueller, @ [phone] Transportation request submitted to service provider: for 11-12-20 appt Reviewed/matched transportation request with appointment schedule: yes Patient has contact information to transportation provider: yes Actions taken today: reminder sent to [facility] today re ride request for 11-12-20 to [facility]. TC pt to remind him of the appointment and ride set up. Informed pt he needs to call [facility] the day before this appointment to confirm ride and be screened for Covid. Per pt's request MILENA Hdez and informed her of the same. documented in this encounter Plan of Treatment Upcoming Encounters Date Type Department Care Team (Late st Contact Info) Description 08/15/2024 11:30 AM EST Office Visit Hematology/Oncology at [address] [phone] Chanelle Kim, [facility] [place] [address] Bee Curry [facility] [place] [address] documented as of this encounter Visit Diagnoses Not on filedocumented in this encounter Care Teams Stock Handler Floorperson Relationship Specialty Start Date End Date Subhash Dowling MD [address] [place] [address] PCP - General 06/03/10 documented as of this encounter
--- OUTSIDE RECORDS SUMMARY | 2024-08-15 01:31 | XMS_ITS | Encounter Summary ---
Author Organization [facility] [place] [address] Care Team Providers Care Record Searcher Name Role Phone Subhash Dowling MD Primary Care Provider Encounter Details Date Type Department Care Team (Late Contact Info) Description 06/04/2021 Ancillary Procedure Radiology Library at [facility], [place] [address] Subhash Dowling MD [address] [place] [address] Social History Tobacco Use Types Packs/Day Years [...] 11:30 AM EST Office Visit Hematology/Oncology at [address] [phone] Chanelle Kim SAMPLE WORKER [facility] [place] [address] Bee Curry SAMPLE WORKER [facility] [place] [address] documented as of this encounter Procedures Procedure Name Priority Date/Time Associated Diagnosis Comments FILM LIBRARY STORAGE ONLY CT CHEST ABDOMEN PELVIS Routine 06/04/2021 12:00 AM EST documented in this encounter Results * Film Library- Storage Only CT Chest Abdomen Pelvis (06/04/2021 12:00 AM EST) Narrative [facility] - 06/18/2021 3:31 PM EST This exam is auto-finalizing. It's purpose is for storage only. Subhash Dowling MD IMG FILM LIBRARY ORD ERABLES Performing Organization Address City/State/[facility] Co de Phone Number [place], [place] documented in this encounter Visit Diagnoses Not on filedocumented in this encounter Care Teams Record Searcher Relationship Specialty Start Date End Date Subhash Dowling MD [address] [place] [id number] PCP - General 06/03/10 documented as of this encounter
--- OUTSIDE RECORDS SUMMARY | 2024-08-15 01:31 | XMS_ITS | Encounter Summary ---
Author Organization [facility] [place] [address] Care Team Providers Care Sales Advisor Name Role Phone Subhash Dowling MD Primary Care Provider [phone] Encounter Details Date Type Department Care Team (Late Contact Info) Description 02/05/2021 9:40 PM EDT Ancillary Procedure Radiology Library at [facility] [place] [address] Aries Quiñones MD [facility] [place] [address] Social History Tobacco Use Types Packs/Day Years [...] 11:30 AM EST Office Visit Hematology/Oncology at [address] [phone] Chanelle Kim [facility] [place] [address] Bee Curry HOLLOW TILE PARTITION ERECTOR [facility] [place] [place] [address] documented as of this encounter Procedures Procedure Name Priority Date/Time Associated Diagnosis Comments FILM LIBRARY STORAGE ONLY CT CHEST ABDOMEN PELVIS Routine 02/05/2021 9:39 PM EDT documented in this encounter Results * Film Library- Storage Only CT Chest Abdomen Pelvis (02/05/2021 9:39 PM EDT) Narrative [place] - 02/05/2021 9:39 PM EDT This exam is auto-finalizing. It's purpose is for storage only. Aries Quiñones MD IMG FILM LIBRARY ORD ERABLES [place], [place] documented in this encounter Visit Diagnoses Not on filedocumented in this encounter Care Teams Sales Advisor Relationship Specialty Start Date End Date Subhash Dowling MD [address] [place] [id number] PCP - General 06/03/10 documented as of this encounter
--- OUTSIDE RECORDS SUMMARY | 2024-08-15 01:31 | XMS_ITS | Encounter Summary ---
Author Organization [facility] [place] [address] Care Team Providers Care Ambulatory Analyst Name Role Phone Subhash Dowling MD Primary Care Provider [phone] Encounter Details Date Type Department Care Team (Latest Contact Info) Description 08/06/2020 3:35 PM EST Ancillary Procedure Radiology Library at [facility] [place] [address] Aries Quiñones MD [facility] [place] [address] Malignant neoplasm of overlapping sites of bladder Social History Tobacco Use Types [...] 11:30 AM EST Office Visit Hematology/Oncology at [address] [phone] Chanelle Kim CONCRETER [facility] [place] [address] Bee Curry CONCRETER [facility] [place] [address] documented as of this encounter Procedures Procedure Name Priority Date/Time Associated Diagnosis Comments REQUEST FOR 2ND READ CT CHEST ABDOMEN PELVIS Routine 08/06/2020 2:37 PM EST Malignant neoplasm of overlapping sites of bladder documented in this encounter Results * Request For 2nd Read CT Chest Abdomen Pelvis (08/06/2020 2:37 PM EST) Anatomical Region Laterality Modality Chest, Abdomen, Pelvis SO Impressions 08/06/2020 4:07 PM EST 1. ??Unchanged left periaortic 11 mm lymph node, previously biopsied with benign pathology. No new lymphadenopathy. 2. ??Indeterminant 4 mm right middle lobe pulmonary nodule is too small to characterize is not definitively seen on prior studies due to slice thickness. Attention on follow-up. 3. ??Left inguinal 2.7 cm fluid collection may represent a seroma or lymphocele. 4. ??Asymmetrically small left kidney with diffuse cortical thinning, likely related to prior marked hydronephrosis. Of note, nephrograms are symmetric suggesting some degree of preserved renal function. 5. ??Short segment severe stenosis in the mid infrarenal aorta is similar to 2008. I have personally reviewed the image(s) and the resident's interpretation and agree with the findings, John Kenney DO at 08/06/2020 4:07 PM Thank you for letting us participate in the care of this patient. For questions regarding this report, please contact the number below. ? Electronically signed by: John Kenney DO, [facility] ([phone]), at 08/06/2020 4:07 PM Narrative 08/06/2020 4:07 PM EST EXAMINATION: * ??REQUEST FOR 2ND READ CT CHEST ABDOMEN PELVIS * ??CT OF THE CHEST, ABDOMEN, AND PELVIS WITH INTRAVENOUS CONTRAST. CLINICAL HISTORY: 69-year-old male with restaging of bladder cancer. ??Status post neoadjuvant chemotherapy and cystoprostatectomy on February 13, 2020. ??Status of disease. ??Surveillance. ??Restaging. ??Follow-up. ??Request for second interpretation of outside imaging study * ??What Modality is the exam? CT Scan * ??Body Part (please add comments as necessary): Chest, abdomen pelvis * ??Sending Institution [facility] * ??Date of exam [id number] * ??I believe a reinterpretation of this study will change clinical care? ??Yes. TECHNIQUE: CT of the chest, abdomen, and pelvis performed following the administration of intravenous contrast at [facility] on 08/02/2020 and submitted for reinterpretation. ??Helical CT of the chest, abdomen, and pelvis was performed with oral and intravenous contrast. ??Multiplanar reformats were performed in the sagittal and coronal planes. ??I am and doses of intravenous contrast was not recorded in the PACS system and submitted documentation. COMPARISON: PET/CT 01/15/2020. CT biopsy 01/31/2020. CT abdomen and pelvis 02/28/2019. FINDINGS: [employer] Monitor Images: Noncontributory. Chest: Lungs and large airways: Moderate centrilobular emphysema. A 4 mm nodule in the right middle lobe is not definitively seen on prior studies likely related to slice thickness (series 2 image 300). Large airways are patent. Pleura: No effusion. Heart/vasculature: Right internal jugular chest port catheter tip terminates in the upper right atrium. Unchanged high density material within the left ventricle which may represent calcified papillary muscle versus surgical material from a prior cardiac intervention. ??There is calcification of the aortic valve. ??There is mild multifocal atherosclerotic calcification of the coronary arteries. ??The aorta is normal in course and caliber. ??There is moderate atherosclerotic calcification of the aortic arch. ??Visualized aspects of the great vessels are normal in course and caliber. ??The pulmonary arteries are normal in course and caliber. Lymph nodes: No enlarged lymph nodes. Mediastinum and stu: Normal. Subcentimeter left thyroid nodule does not require further follow-up per ACR guidelines. Abdomen/pelvis: Liver: Normal size and attenuation. Scattered calcifications consistent with prior granulomatous disease. Bile ducts: Nondilated. Gallbladder: Tiny dependent calcified gallstones. Normal caliber wall. Pancreas: Normal attenuation without ductal dilatation. Spleen: Scattered calcifications consistent with prior granulomatous disease. Normal size. Adrenals: Normal. Kidneys: Asymmetrically small left kidney is new from 01/15/2020 when there was marked hydronephrosis. Hydronephrosis has resolved in the interim. Despite diffuse left renal cortical thinning, the nephrograms are symmetric. Urinary Bladder: Surgically absent. Ileal conduit in the right lower quadrant. No ureteral dilation to suggest stricture at the anastomoses. Vasculature: Nonaneurysmal abdominal aorta. Short segment of atherosclerotic plaque in the mid infrarenal aorta is similar in extent to CTA 07/19/2007 and results in severe stenosis. The portal vein is patent. Lymph Nodes: ??Similar enlargement of a left periaortic lymph node measuring 11 mm short axis (series 2 image 578). This lymph node was previously targeted by CT-guided biopsy on 01/31/2020. No new lymphadenopathy. Bowel: Nondilated small and large bowel. The appendix is normal. Peritoneum and mesentery: New 2.7 cm fluid attenuation collection in the proximal left inguinal canal (series 2 image 875). No ascites or free air. No mesenteric inflammation. Abdominal wall: Surgical clips in the bilateral proximal inguinal canals reflective of prior hernia repair. Focal cutaneous thickening over the right flank is unchanged from 2019 and likely benign (series 2 image 643). Reproductive organs: Surgically absent prostate and seminal vesicles. Osseous structures: Partially imaged right hip intramedullary nail. No suspicious lesions. Procedure Note John Kenney, DO - 08/06/2020 EXAMINATION: * REQUEST FOR 2ND READ CT CHEST ABDOMEN PELVIS * CT OF THE CHEST, ABDOMEN, AND PELVIS WITH INTRAVENOUS CONTRAST. CLINICAL HISTORY: 69-year-old male with restaging of bladder cancer.Status post neoadjuvant chemotherapy and cystoprostatectomy on February 13, 2020.Status of disease. Surveillance. Restaging. Follow-up. Request for second interpretation of outside imaging study * What Modality is the exam? CT Scan * Body Part (please add comments as necessary): Chest, abdomen pelvis * Sending Institution [facility] * Date of exam 20200802 * I believe a reinterpretation of this study will change clinical care?Yes. TECHNIQUE: CT of the chest, abdomen, and pelvis performed following the administration of intravenous contrast at [facility] on08/02/2020 and submitted for reinterpretation. Helical CT of the chest, abdomen,and pelvis was performed with oral and intravenous contrast. Multiplanarreformats were performed in the sagittal and coronal planes. I am and doses of intravenous contrast was not recorded in the PACS system and submitted documentation. COMPARISON: PET/CT 01/15/2020. CT biopsy 01/31/2020. CT abdomen and pelvis 02/28/2019. FINDINGS: [employer] Monitor Images: Noncontributory. Chest: Lungs and large airways: Moderate centrilobular emphysema. A 4 mm nodulein the right middle lobe is not definitively seen on prior studies likely relatedto slice thickness (series 2 image 300). Large airways are patent. Pleura: No effusion. Heart/vasculature: Right internal jugular chest port catheter tipterminates in the upper right atrium. Unchanged high density material within the left ventricle which may represent calcified papillary muscle versus surgical material from a prior cardiac intervention. There is calcification ofthe aortic valve. There is mild multifocal atherosclerotic calcification ofthe coronary arteries. The aorta is normal in course and caliber. There is moderate atherosclerotic calcification of the aortic arch. Visualizedaspects of the great vessels are normal in course and caliber. The pulmonaryarteries are normal in course and caliber. Lymph nodes: No enlarged lymph nodes. Mediastinum and stu: Normal. Subcentimeter left thyroid nodule does notrequire further follow-up per ACR guidelines. Abdomen/pelvis: Liver: Normal size and attenuation. Scattered calcifications consistentwith prior granulomatous disease. Bile ducts: Nondilated. Gallbladder: Tiny dependent calcified gallstones. Normal caliber wall. Pancreas: Normal attenuation without ductal dilatation. Spleen: Scattered calcifications consistent with prior granulomatousdisease. Normal size. Adrenals: Normal. Kidneys: Asymmetrically small left kidney is new from 01/15/2020 when therewas marked hydronephrosis. Hydronephrosis has resolved in the interim.Despite diffuse left renal cortical thinning, the nephrograms are symmetric. Urinary Bladder: Surgically absent. Ileal conduit in the right lowerquadrant. No ureteral dilation to suggest stricture at the anastomoses. Vasculature: Nonaneurysmal abdominal aorta. Short segment ofatherosclerotic plaque in the mid infrarenal aorta is similar in extent to CTA 07/19/2007nd results in severe stenosis. The portal vein is patent. Lymph Nodes: Similar enlargement of a left periaortic lymph nodemeasuring 11 mm short axis (series 2 image 578). This lymph node was previouslytargeted by CT-guided biopsy on 01/31/2020. No new lymphadenopathy. Bowel: Nondilated small and large bowel. The appendix is normal. Peritoneum and mesentery: New 2.7 cm fluid attenuation collection in the proximal left inguinal canal (series 2 image 875). No ascites or free air.No mesenteric inflammation. Abdominal wall: Surgical clips in the bilateral proximal inguinal canals reflective of prior hernia repair. Focal cutaneous thickening over theright flank is unchanged from 2019 and likely benign (series 2 image 643). Reproductive organs: Surgically absent prostate and seminal vesicles. Osseous structures: Partially imaged right hip intramedullary nail. No suspicious lesions. IMPRESSION 1. Unchanged left periaortic 11 mm lymph node, previously biopsied withbenign pathology. No new lymphadenopathy. 2. Indeterminant 4 mm right middle lobe pulmonary nodule is too smallto characterize is not definitively seen on prior studies due to slicethickness. Attention on follow-up. 3. Left inguinal 2.7 cm fluid collection may represent a seroma orlymphocele. 4. Asymmetrically small left kidney with diffuse cortical thinning,likely related to prior marked hydronephrosis. Of note, nephrograms aresymmetric suggesting some degree of preserved renal function. 5. Short segment severe stenosis in the mid infrarenal aorta is similarto 2008. I have personally reviewed the image(s) and the resident's interpretationand agree with the findings, John Kenney DO at 08/06/2020 4:07 PM Thank you for letting us participate in the care of this patient. Forquestions regarding this report, please contact the number below. Electronically signed by: John Kenney DO, [facility]([phone]), at 08/06/2020 4:07 PM Aries Quiñones MD IMG OUTSIDE INTERPRE TATION ORDERABLES documented in this encounter Visit Diagnoses Diagnosis Malignant neoplasm of overlapping sites of bladder Malignant neoplasm of other specified sites of bladder documented in this encounter Care Teams Ambulatory Analyst Relationship Specialty Start Date End Date Subhash Dowling MD [address] [place] [address] PCP - General 06/03/10 documented as of this encounter
--- OUTSIDE RECORDS SUMMARY | 2024-08-15 01:31 | XMS_ITS | Encounter Summary ---
[place] [address] Care Team Providers Care Fur Stretcher Name Role Phone Subhash Dowling MD Primary Care Provider [phone] Reason for Visit * Reason Comments Other Unknown cardiac comp laint. Encounter Details Date Type Department Care Team (Late st Contact Info) Description 07/25/2021 3:27 PM EST - 07/25/2021 4:29 PM EST [place] [id number] Claudio Garduno MD PVD (peripheral vascular disease) with claudication Discharge Disposition: ED Dismissed - Diverted Elsewhere Social History Tobacco Use Types Packs/Day Years [...] Sign Reading Time Taken Comments Blood Pressure 137/87 07/25/2021 2:26 PM EST Pulse 103 07/25/2021 2:26 PM EST Temperature 36.5 ??C (97.7 ??F) 07/25/2021 2:26 PM ES T Respiratory Rate 16 07/25/2021 2:26 PM EST Oxygen Saturation 98% 07/25/2021 2:26 PM EST Inhaled Oxygen Concentration - - Weight - - Height - - Body Mass Index - - documented in this encounter Medications at Time of Discharge Medication Sig Dispensed Refills Start Date End Date acetaminophen (Tylenol) 500 mg Tablet Take 2 tablets by mouth every 6 hours as needed for Pain. 30 tablet 1 03/06/2020 albuterol 90 mcg/actuation HFA Aerosol Inhaler Inhale 2 puffs into the lungs every 4 hours as needed for Wheezing. Use with spacer aspirin EC 81 mg Tablet, Delayed Release (E.C.) Take 81 mg by mouth daily. atorvastatin (Lipitor) 20 mg Tablet Take 20 mg by mouth daily. documented as of this encounter ED Notes * Leatha Wyman MD - 07/25/2021 4:29 PM EST ED Resident Note HPI: Gt Aguilar is a 70 y.o. male with a history of bladder cancer who presents to the Emergency Department for evaluation of a heart problem. The patient arrived to the emergency department statingthat his doctor sent him here to evaluate a heart problem. He is unaware what the problem is. He does not recall which doctor sent him here. He is denying any symptoms at this time. Specifically no chest pain, shortness of breath, dyspnea on exertion, lightheadedness or fatigue. Denies fevers or chills. Pt was seen under the supervision of an attending physician. Review of Systems Pertinent positives and negatives are included in the HPI, otherwise at least ten systems were reviewed and negative. Past Medical and Surgical Histories, Social History, Medications, Allergies were reviewed in the chart. Vitals: ED Triage Vitals [07/25/21 1426] BP: 137/87 Heart Rate: (!) 103 Resp: 16 Temp: 36.5 ??C (97.7 ??F) Temp src: Oral SpO2: 98 % O2 Device: n/a O2 Flow Rate (L/min): n/a Physical Exam Physical Exam: General: Agitated man in no acute distress HEENT: Normocephalic and atraumatic. Extraocular movements intact. Cardiovascular: Regular rate and rhythm. Radial pulses 3+ and symmetric. Pulmonary: CTAB Abdominal: Flat. No tenderness. Musculoskeletal: No gross deformities. Skin: Capillary refill <2 seconds Neurologic: No focal deficits Psychiatry: Mood appropriate Assessment and Plan: 70 y.o. male with presenting to be evaluated for a heart problem. At triage the patient's vital signs were significant for tachycardia to 103 all else reassuring. He had a screening EKG at triage which showed normal sinus rhythm at a rate of 89, rightward axis, normal intervals and no ST segment changes concerning for ischemia. He was well-appearing on physical exam. He had absolutely no complaints today. He was well-dressed, well-kept. He did not appear intoxicated. The patient did seem very confused about the situation and why he was in the emergency department. I contacted his emergency contact listed. She informed me that the patient had an appointment today with the vascular surgery department. She believes that he mistakenly came to the emergency department. She also informed me that at baseline this patient is easily confused by situations. He does have a full-time caregiver at home who is not with him today. She had last seen him last week and felt that he was at his baseline. When I described his confusion today about the situation he stated thatthis is normal for him. I contacted the vascular surgery department at [facility] who confirmed that he had an appointment today at 2:20 PM which he did not show up for. They informed me that he was scheduled for an KAMAR. They were able to accommodate his KAMAR at this time. We did involve social work in the emergency department to assess for whether there were any dimensions that can be done to help his home situation. Their evaluation revealed that he did have a full-time caregiver that the emergency contact that I spoke to with many of his tasks at home. The patient did become frustrated during his stay in the emergency department. At times he tried toleave. He was very concerned that his ride would leave and that he would be unable to get home. He was also very frustrated by the situation. His reaction was appropriate when I explained to him thathe was supposed to be at a different part of the hospital to have his testing done. He expressed understanding of this. He was willing to go and have his KAMAR done at this time. He does not pose a threat to himself or to the public. We had a discussion about further work-up in the emergency department, which he declined given thathe has no complaints today. He was encouraged to come back to the emergency department if things change. The visit findings, diagnosis, and care plan were discussed with the patient. The diagnosis and care plans discussions were outlined in the discharge instructions. The patient expressed understanding of the details of the visit, the return precautions and that he should returnto the ER at any time for worsening symptoms, new symptoms, or other concerns. he agrees with the follow- up plan. Leatha Wyman MD Resident 07/25/211955 * Berto Rios RN - 07/25/2021 4:24 PM EST Pt accidentally came to emergency department instead of his vascular appointment. Resident was able to get patient into the appointment, and he is now being escorted by staff to . Pt stable, ambulatory independently. * Claudio Garduno - 07/25/2021 3:57 PM EST ED Attending Brief Note HPI: Gt Aguilar is a 70 y.o. male who presents to the Emergency Department after being driven here by a it desktop support specialist for unclear reasons. Patient is cognitively impaired likely from long-term use of tobacco and alcohol. It appears he had an appointment today with the vascular surgery clinic for infrarenal aortic arteriosclerosis but was diverted to the emergency department. He reports no pain or trouble breathing or other difficulties at this time. Of note he has invasive bladder cancer and an ileal conduit. He still smokes 1 pack a day. He has a roommate and is not in touch with his family whichincludes 2 children. His level of literacy and education is unclear. He has been on disability since the early for a femur fracture. Review of Systems Pertinent positives and negatives are included in the HPI, otherwise at least ten systems were reviewed and negative. Past Medical and Surgical Histories, Social History, Medications, Allergies were reviewed in the chart. Vitals: ED Triage Vitals [07/25/21 1426] BP: 137/87 Heart Rate: (!) 103 Resp: 16 Temp: 36.5 ??C (97.7 ??F) Temp src: Oral SpO2: 98 % O2 Device: n/a O2 Flow Rate (L/min): n/a Physical Exam Patient is thin and unkempt in no acute distress. He is able to stand and somewhat irritated. He does not know the year; with prompting he could state that Catherine is president. He has punched new holes in his belt because of apparent weight loss. His lungs are clear heart regular rate and rhythm abdomen soft and benign. Back for urine is noted. Gait is normal. ED Course: I have reviewed labs and imaging, images and available reports, and they are significant for: Labs and chest x-ray are pending. Assessment and Plan: 70 y.o. male with apparent baseline dementia and poor social support who presents to the ED with noacute problem but apparently had an appointment with the vascular surgery clinic. We will call the vascular team for additional details. Because of additional weight loss we will perform a chest x-ray to look for any evidence of a new primary tumor. We will call a social media assistant or healthcare social worker to make sure patient has proper follow-up. An older clinic note says that he has missed several appointments because of transportation difficulties[place] Did this case involve critical care? No ED ATTENDING ATTESTATION NOTE The patient was seen in conjunction with the resident physician. I have independently performed thekey portions of the history and physical exam. I have reviewed the nursing notes, vital signs, and all diagnostic studies personally including labs, imaging studies and EKGs. I have discussed the details of the case with the resident and agree with the assessment and plan as described in the resident note unless noted otherwise. The visit findings, diagnosis, and care plan were discussed with the patient. The diagnosis and care plans discussions were outlined in the discharge instructions. The patient expressed understanding of the details of the visit, the return precautions and that he should returnto the ER at any time for worsening symptoms, new symptoms, or other concerns. he agrees with the follow- up plan. Claudio Garduno MD 07/27/21 1213 * Kath Kim LPN - 07/25/2021 2:43 PM EST EKG given to for review patient assisted back to waiting room * Chato Ortiz PA - 07/25/2021 2:25 PM EST Brief Provider Triage Note Name: Gt Aguilar : 1950 Date of Service: 07/25/2021 Chief Complaint: Other (Unknown cardiac complaint. ) History of Present Illness: 70 y.o. y/o male presents with concerns for his heart. Reports no symptoms, but states his doctortold him to come in to be seen. Vitals: BP 137/87 (BP Location (NBP): Left arm, Patient Position: Sitting) Pulse (!) 103 Temp 36.5 ??C (97.7 ??F) (Oral) Resp 16 SpO2 98% No acute distress Plan: Labs EKG Re-examination Further diagnosis and management in ED COVID-19 precautions were used throughout this encounter. Chato Ortiz PA 07/25/21 1437 documented in this encounter Plan of Treatment Upcoming Encounters Date Type Department Care Team (Late st Contact Info) Description 08/15/2024 11:30 AM EST Office Visit Hematology/Oncology at [address] [phone] Chanelle Kim [facility] [place] [address] Bee Curry [facility] [place] [address] documented as of this encounter Procedures Procedure Name Priority Date/Time Associated Diagnosis Comments HEMOGRAM STAT 07/25/2021 2:29 PM EST DIFFERENTIAL, AUTOMATED STAT 07/25/2021 2:29 PM EST HC CBC,PLT & AUTO DIFF STAT 2:29 PM EST HC TROPONIN T STAT 07/25/2021 2:29 PM EST HC PROBNP STAT 07/25/2021 2:29 PM EST COMPREHENSIVE METABOLIC PANEL STAT 07/25/2021 2:29 PM EST EKG 12-LEAD STAT 07/25/2021 2:24 PM EST documented in this encounter Results * Differential, Automated (07/25/2021 2:29 PM EST) Neutrophil % 66.3 % [facility] Neutrophil Absolute 4.84 1.70 - 6.10 x10(3)/[facility] Lymph % 20.2 % [facility] Lymphocytes Abs 1.5 0.9 - 3.2 x10(3)/[facility] Monocyte % 9.2 % [facility] Monocyte Abs 0.7 0.3 - 0.9 x10(3)/[facility] Eos % 2.9 % [facility] Eosinophils Abs 0.2 0.0 - 0.4 x10(3)/[facility] Basophil % 1.1 % [facility] Baso Absolute 0.1 0.0 - 0.1 x10(3)/[facility] Immature Gran % 0.30 % [facility] Comment: Immature granulocytes(IG's)percentage and absolute count will include metamyelocytes, myelocytes, and promyelocytes. Blood smears from CBCs yielding IG's will be scanned manually for concordance. If this scan disagrees with the automated IG or if promyelocytes are noted, a manual differential will be performed. Immature Gran Absolute 0.02 0.00 - 0.04 x10(3)/[facility] Blood 07/25/2021 2:29 PM EST 07/25/2021 2:47 PM EST Narrative Resulting Agency Comment Spec In Lab Chato [facility] ORDERABLE S [facility] [place] [id number] * (ABNORMAL) Hemogram (07/25/2021 2:29 PM EST) White Blood Cell 7.3 4.0 - 9.5 x10(3)/mc L [facility] Red Blood Cell 5.03 4.58 - 5.54 x10(6)/mc L [facility] Hemoglobin 15.8 13.7 - 16.5 g/dL [facility] Hematocrit 45.6 40.5 - 48.5 % [facility] Mean Cell Volume 90.7 82.9 - 93.1 fL [facility] Mean Cell Hemoglobin 31.4 27.5 - 32.1 pg [facility] Mean Cell Hemoglobin Concentration 34.6 32.0 - 35.7 g/dL [facility] Platelet 144(L) 145 - 357 x10(3)/ L [facility] RDW Standard Deviation 47.1(H) 36.0 - 45.0 [facility] RDW coefficient of variation 14.1(H) 11.4 - 13.8 % [facility] Mean Platelet Volume 9.7 7.6 - 12.9 [facility] NRBC% auto 0.0 % [facility] NRBC Absolute 0.000 0.000 - 0.000 x10(3)/ L [facility] Blood 07/25/2021 2:29 PM EST 07/25/2021 2:47 PM EST Narrative Resulting Agency Comment Spec In Lab Chat[facility] ORDER[facility] [place] [address] * pro-Brain Natriuretic Peptide (07/25/2021 2:29 PM EST) NT-proBNP 108 <=124 pg/mL [facility] Blood 07/25/2021 2:29 PM EST 07/25/2021 2:46 PM EST Narrative Resulting Agency Comment Spec In Lab Checo Hoang MD CHEMISTRY ORDERABL ES Performing Organization Address City/[facility]/ZIP Co de Phone Number [facility] [place] [address] * Troponin (07/25/2021 2:29 PM EST) [facility] Troponin-T <0.01 0.00 - 0.00 ng/mL [facility] Comment: The 99th percentile for Troponin T is less than 0.01 ng/mL, any detectable cTnT concentration using this assay should be considered elevated. According to the third universal definition of myocardial infarction the following criteria with a clinical presentation consistent with acute myocardial ischemia meets the diagnosis for a myocardial infarction (AL). Detection of a rise and/or fall of cTnT, with at least one value greater than the 99th percentile (> or = 0.01) and with at least one of the following ?? Symptoms of ischemia ?? New or presumed new significant [id number] wave (ST-T) changes or new left bundle branch block (LBBB) ?? Development of pathologic Q waves in the ECG ?? Imaging evidence of new loss of viable myocardium or new regional wall motion abnormality ?? Identification of an intracoronary thrombus by angiography or autopsy Samples for cTnT testing should be obtained serially upon first assessment and again 3 to 6 hours later. If the clinical suspicion is high and previous samples have been negative an additional sample may be indicated. Reference: Third [place] Definition of Myocardial Infarction. Journal of the [place] [employer] 2012;60:1581-98 Blood 07/25/2021 2:29 PM EST 07/25/2021 2:46 PM EST Narrative Resulting Agency Comment Spec In Lab Checo Hoang MD CHEMISTRY ORDERABL ES Performing Organization Address City/[facility]/ZIP Co de Phone Number [facility] [place] [address] * (ABNORMAL) Comprehensive metabolic panel (non-fasting) (07/25/2021 2:29 PM EST) [facility] Glucose 99 65 - 199 mg/dL [facility] Comment:Diabetes: >=200 mg/d L plus symptoms Blood Urea Nitrogen 24(H) 10 - 20 mg/dL [facility] Creatinine 1.44 0.80 - 1.50 mg/dL [facility] Sodium 139 135 - 145 mmol/L [facility] Potassium 4.5 3.5 - 5.0 mmol/L [facility] Comment: Please note: ??Patients with WBC >100,000 may have falsely elevated Potassium levels. ??For accurate Potassium quantification in these patients send serum separator tube ([facility] top) for subsequent determinations. ??Contact the Clinical Chemistry Laboratory if there are any questions. Chloride 106 98 - 107 mmol/L [facility] Carbon Dioxide 19(L) 22 - 31 mmol/L [facility] Anion Gap 14 5 - 15 mmol/L [facility] Calcium 9.5 8.5 - 10.5 mg/dL [facility] Protein, Total 6.8 6.1 - 8.0 g/dL [facility] Albumin 4.5 3.2 - 5.2 g/dL [facility] Aspartate Aminotransferase 16 0 - 39 unit/L [facility] Alanine Aminotransferase 13 0 - 55 unit/L [facility] Alkaline Phosphatase 135(H) 40 - 130 unit/L [facility] Bilirubin, Total 0.3 0.2 - 1.3 mg/dL [facility] Est Glomerular Filtration Rate 50(L) >=60 mL/min/1. 73 m?? [facility] Comment: This patient? s estimated glomerular filtration rate (eGFR) is between 50 mL/min/1.73 m2 (patients with less muscle mass per kg body weight) and 57 mL/min/1.73 m2 (patients with more muscle mass per kg body weight) as determined by the CKD-EPI equation. Assessment of eGFR is not appropriate when creatinine concentrations are rapidly changing. For clinical decisions where creatinine clearance will affect therapy, a 24-hour urine creatinine clearance may be advised. Assignment of CKD stage 1 - 5 for patients with an eGFR near the transition point between stages may be based on clinical assessment of muscle mass and symptoms in addition to eGFR. Blood 07/25/2021 2:29 PM EST 07/25/2021 2:46 PM EST Narrative Resulting Agency Comment Spec In Lab Checo Hoang MD CHEMISTRY ORDERABL ES Performing Organization Address [facility] Co de Phone Number [facility] [place] [address] * EKG 12 Lead (07/25/2021 2:24 PM EST) Ventricular rate 89 BPM MUSE SYSTEM Atrial Rate 89 BPM MUSE SYSTEM P-R Interval 146 ms MUSE SYSTEM QRS Duration 70 ms MUSE SYSTEM Q-T Interval 330 ms MUSE SYSTEM QTC Calculated (Bezet) 401 ms MUSE SYSTEM Calculated P [place] 74 degrees MUSE SYSTEM Calculated R [place] 92 degrees MUSE SYSTEM Calculated T [place] 70 degrees MUSE SYSTEM INTERPRETATION Normal sinus rhythm Rightward axis Borderline ECG When compared with ECG of 15-JAN-2020 12:56, T wave amplitude has increased in Inferior leads Confirmed by MD Gayla, John Ibrahim (1948) on 07/28/2021 8:50:14 AM MUSE SYSTEM 07/25/2021 2:24 PM EST 07/28/2021 8:50 AM EST Checo Hoang MD ECG ORDERABLES Performing Organization Address [facility] Co de Phone Number MUSE SYSTEM documented in this encounter Visit Diagnoses Diagnosis PVD (peripheral vascular disease) with claudication Peripheral vascular disease, unspecified documented in this encounter Care Teams Fur Stretcher Relationship Specialty Start Date End Date Subhash Dowling MD [address] [place] [id number] PCP - General 06/03/10 documented as of this encounter
--- OUTSIDE RECORDS SUMMARY | 2024-08-15 01:31 | XMS_ITS | Encounter Summary ---
Author Organization [facility] [place] [address] Care Team Providers Care Religion Professor Name Role Phone Subhash Dowling MD Primary Care Provider [phone] Encounter Details Date Type Department Care Team (Late Contact Info) Description 12/24/2023 Interpretation Only Radiology Library at [facility] [place] [address] Subhash Dowling MD [address] [place] [address] Social History Tobacco Use Types Packs/Day Years [...] AM EST Office Visit Hematology/Oncology at [address] [phone] Chanelle Kim [employer] [facility] [place] [address] Bee Curry [employer] [facility] [place] [address] documented as of this encounter Procedures Procedure Name Priority Date/Time Associated Diagnosis Comments FILM LIBRARY STORAGE ONLY NM PET/CT Routine 12/24/2023 4:22 PM EDT documented in this encounter Results * Film Library- Storage Only NM Pet / CT (12/24/2023 4:22 PM EDT) 12/24/2023 4:22 PM EDT Narrative [facility] - 12/24/2023 4:22 PM EDT This exam is auto-finalizing. It's purpose is for storage only. Subhash Dowling MD IMG FILM LIBRARY ORD ERABLES Performing Organization Address City/State/[facility] Co de Phone Number [place], [place] documented in this encounter Visit Diagnoses Not on filedocumented in this encounter Care Teams Religion Professor Relationship Specialty Start Date End Date Subhash Dowling MD [address] [place] [id number] PCP - General 06/03/10 documented as of this encounter
--- OUTSIDE RECORDS SUMMARY | 2024-08-15 01:31 | XMS_ITS | Encounter Summary ---
[place] [address] Care Team Providers Care Milk Wagon Driver Name Role Phone Subhash Dowling MD Primary Care Provider [phone] Reason for Visit * Reason Onset Date Comments Other 11/05/2020 transportation p nadir review Encounter Details Date Type Department Care Team (Late st Contact Info) Description 11/05/2020 Telephone Hematology/Oncology at [address] [phone] Nadia Mueller MSW OFFICE OF [...] Telephone Encounter - Nadia Mueller MSW - 11/05/2020 7:50 AM EDT Transportation Plan Review Transportation service provider: LENA @ [phone] Person coordinating transportation: Nadia Mueller, @ [phone] Transportation request submitted to service provider: for 11-12-20 appt Reviewed/matched transportation request with appointment schedule: yes Patient has contact information to transportation provider: yes Actions taken today: none documented in this encounter Plan of Treatment Upcoming Encounters Date Type Department Care Team (Late st Contact Info) Description 08/15/2024 11:30 AM EST Office Visit Hematology/Oncology at [address] [phone] Chanelle Kim, [facility] [place] [address] Bee Curry [facility] [place] [address] documented as of this encounter Visit Diagnoses Not on filedocumented in this encounter Care Teams Milk Wagon Driver Relationship Specialty Start Date End Date Subhash Dowling MD [address] [place] [address] PCP - General 06/03/10 documented as of this encounter
--- OUTSIDE RECORDS SUMMARY | 2024-08-15 01:31 | XMS_ITS | Encounter Summary ---
Author Organization [facility] [place] [address] Care Team Providers Care Acid Remover Name Role Phone Subhash Dowling MD Primary Care Provider [phone] Reason for Visit * Reason Onset Date Comments Follow-up 02/17/2023 scans Encounter Details Date Type Department Care Team (Late Contact Info) Description 02/17/2023 Telephone Hematology/Oncology at [address] [phone] Denise Lamb RN Follow-up (scans) Social History Tobacco Use Types Packs/Day Years [...] encounter Miscellaneous Notes * Telephone Encounter - Denise Lamb RN - 02/17/2023 1:06 PM EDT Called pt unable to reach by his phones , called ketty his friend and left message that CT scan from 02/05 per Jazlyn So GRADE RECORDER were good and showed no sign of disease. We will have him return to clinic in mid jun. With labs. They will call with questions. documented in this encounter Plan of Treatment Upcoming Encounters Date Type Department Care Team (Late st Contact Info) Description 08/15/2024 11:30 AM EST Office Visit Hematology/Oncology at [address] [phone] Chanelle Kim, [facility] [place] [address] Bee Curry [facility] [place] [address] documented as of this encounter Visit Diagnoses Not on filedocumented in this encounter Care Teams Acid Remover Relationship Specialty Start Date End Date Subhash Dowling MD [address] [place] [id number] PCP - General 06/03/10 documented as of this encounter
--- OUTSIDE RECORDS SUMMARY | 2024-08-15 01:31 | XMS_ITS | Encounter Summary ---
Author Organization [facility] [place] [address] Care Team Providers Care Account Services Coordinator Name Role Phone Subhash Dowling MD Primary Care Provider [phone] Reason for Visit * Reason Onset Date Comments Follow-up 12/31/2023 Urology at [facility] Encounter Details Date Type Department Care Team (Late Contact Info) Description 12/31/2023 Telephone Hematology/Oncology at [address] [phone] Denise Lamb RN Follow-up (Urology at [facility]) Social History Tobacco Use Types Packs/Day Years [...] Telephone Encounter - Denise Lamb RN - 12/31/2023 8:16 AM EDT Pt will be seen by urology at [facility] with Dr. Hurley. Dr. Hurley fine with seeing pt with diversion. Kirk be seen on January 17, 2024. Left message for Ketty about this who sets up his rides. documented in this encounter Plan of Treatment Upcoming Encounters Date Type Department Care Team (Late Contact Info) Description 08/15/2024 11:30 AM EST Office Visit Hematology/Oncology at [address] [phone] Chanelle Kim, [facility] [place] [place] [address] Bee Curry [facility] [place] [place] [address] documented as of this encounter Visit Diagnoses Not on filedocumented in this encounter Care Teams Account Services Coordinator Relationship Specialty Start Date End Date Subhash Dowling MD [address] [place] [id number] PCP - General 06/03/10 documented as of this encounter
--- OUTSIDE RECORDS SUMMARY | 2024-08-15 01:31 | XMS_ITS | Encounter Summary ---
Author Organization [facility] Address [facility] [place] [address] Care Team Providers Care Grounds Maintenance Worker Name Role Phone Subhash Dowling MD Primary Care Provider [phone] Encounter Details Date Type Department Care Team (Late st Contact Info) Description 12/22/2022 1:30 PM EDT Office Visit Hematology/Oncology at [address] [phone] Aries Quiñones MD [facility] DR [place] [address] Jazlyn So, RATE MARKER Malignant neoplasm of urinary bladder, unspecified site Social History Tobacco Use Types Packs/Day Years [...] Sign Reading Time Taken Comments Blood Pressure 139/81 12/22/2022 1:25 PM EDT Pulse 91 12/22/2022 1:25 PM EDT Temperature 36.8 ??C (98.2 ??F) 12/22/2022 1:25 PM ED T Respiratory Rate 18 12/22/2022 1:25 PM EDT Oxygen Saturation 99% 12/22/2022 1:25 PM EDT Inhaled Oxygen Concentration - - Weight 59.9 kg (132 lb) 12/22/2022 1:25 PM EDT Height 167.6 cm (5' 5.98) 12/22/2022 1:25 PM ED T Body Mass Index 21.32 12/22/2022 1:25 PM EDT documented in this encounter Patient Instructions * Patient Instructions* Jazlyn So APRN - 12/22/2022 1:30 PM EDT He will return in 6 months with labs and ct scan prior to visit documented in this encounter Progress Notes * Jazlyn So APRN - 12/22/2022 1:30 PM EDT Images from the original note were not included. Diagnosis: High-grade bladder cancer, [id number] HPI:Gt Aguilar is 72 y[address] Dr. Hurley for a [...] least 3appointments due to transportation problem. Interval history 12/22/22 Gt returns to the clinic for routine followup of his muscular invasive bladder cancer. He states that he has been well over the last 6 months. He recently had a scan done as well as labs to assess the status of his disease. He has had no new illnesses or hospitalizations. He continues to smoke. He states that he smokes about 11/2 pks/day. His appetite is good. His breathing is stable. He has no issues with his bowels. He does have some abdominal pain that is chronic in nature around the area that he had surgery. He denies any hematuria. It is unchanged. ROS is otherwise negative. Interval History:(07/07/22)- Gt returns to the [facility] for follow up for muscular invasive bladder cancer s/p cystoprostatectomy with ileal conduit and discussion on restaging CT scan.. He is doing well today. He is living at home now. Appetite is good. He gets out and walks. He is smoking a pack a day. [...] Family History: Noncontributory Allergies: Allergies Allergen Reactions Wellbutrin [Bupropion Hcl] Other (See Comments) Unknown on pt's chart from outside facility Medications: Your Medications Accurate as of December 22, 2022 2:18 PM. If you have any questions, ask your nurse or doctor. Continued medications, unchanged Dose Details acetaminophen 500 mg tablet Commonly known as: Tylenol Take 2 tablets by mouth every 6 hours as needed for Pain. 1,000 mg Quantity: 30 tablet Refills: 1 albuteroL 90 mcg/actuation HFA Aerosol Inhaler Inhale 2 puffs into the lungs every 4 hours as needed for Wheezing. Use with spacer 2 puff Refills: 0 aspirin EC 81 mg EC (DR) tablet Take 81 mg by mouth daily. 81 mg Refills: 0 atorvastatin 20 mg tablet Commonly known as: Lipitor Take 20 mg [...] axillary nodes normal Neurologic: Normal Vitals BP 139/81 (Patient Position: Sitting) Pulse 91 Temp 36.8 ??C (98.2 ??F) (Temporal) Resp 18 Ht 167.6 cm (5' 5.98) Wt 59.9 kg (132 lb) SpO2 99% BMI 21.32 kg/m?? Pathology: 02/13/2020 had a cystoprostatectomy +ileal conduit SYNOPTIC Specimen Parts: A to L Specimen Procedure: Radical cystoprostatectomy Tumor Tumor Site: Left lateral wall; left ureteral orifice Histologic Type: Urothelial carcinoma invasive . SYNOPTIC Histologic Grade: High-grade Tumor Size: 2.4 Centimeters (cm) Tumor Extension: Tumor invades perivesical soft tissue - Microscopically Lymphovascular Invasion: Cannot be determined - Suspicious Tumor Configuration: Solid / nodule Margins Margins: Uninvolved by invasive carcinoma and carcinoma in situ / noninvasive urothelial carcinoma Lymph Nodes Number of Lymph Nodes Involved: 0 Number of Lymph Nodes Examined: 26 Pathologic Stage Classification (pTNM, AJCC 8th Edition) TNM Descriptors: y (post-treatment) Primary Tumor (pT): pT3a Additional Findings Additional Findings: Therapy-related changes - fibrosis and focal chronic inflammation in the bladder wall; Benign prostate with glandular and stromal hyperplasia and focal acute inflammation Tumor Block(s): D4, D6, D8, D9, D11 Normal Block(s): D17, D18 CAP eCC August 2019 Annual Release 07/31/2019 Urinary bladder, site not specified, mass, TURBT: - High grade urothelial carcinoma, invasive into muscularis propria and asuncion-muscular bundle adipose tissue. - Focal urothelial carcinoma in situ Labs: 12/22/22 WBC 6.62 H/H 16.6/47.6 Plts 162 Na 138 K+ 4.1 BUN/Cr 18/1.2 Glu 96 C 9.2 ast 16 alt 23 Alk phos 135 06/30/2022 WBC 7.04, hemoglobin 16.7, platelet count 133, ANC 5.16, BUN 26, creatinine 1.4, calcium9.4, TB 0.8, AST 27, ALT 20, alkaline phosphatase 125. Albumin 4.1. 11/11/2021 WBC 7.68, hemoglobin 15.4, platelet count 143, ANC 5.26, BUN 19, creatinine 1.4, calcium 8.7, AST 10, ALT 16, alkaline phosphatase 126, total protein 6.9, albumin 3.8, 06/04/2021 WBC 8.0, hemoglobin 15.5, platelet count 139, BUN 24, [...] 125, BUN 19, creatinine 1.1, calcium 9.3, [id number], total protein 6.7, albumin 4.0, TB 0.3 [...] phos-222 Albumin-3.3 10/24/19- WBC-6.11 Hgb/Hct-14.2/41.8 Plts-121 ANC-3.78 BUN/Cr-/1.28 Lytes and LFTS unremarkable Alk phos-156 Albumin-3.5 10/05/19- WBC-9.8 Hgb/Hct-15.4/47.3 Plt-194 ANC-7.14 K+-4.5 BUN/Cr-14/1.17 Ca-9.6 Albumin-4.4 Imaging: CT scan chest abdomen and pelvis was not done 06/30/2022 CT chest abdomen pelvis with contrast: Impression. No retroperitoneal no para-aortic adenopathy. No intrapelvic or inguinal adenopathy. Noevidence of urinary tract obstruction. Left kidney atrophic. Right kidney remains normal size. 09/25/2021 CT chest, abdomen and pelvis with contrast: Impression: No evidence of metastatic disease in the chest. Moderately advanced centrilobular emphysema. No findings suspicious for local tumor recurrence or metastatic disease in the abdomen and pelvis. Chronically occluded right common iliac artery and chronic left renal atrophy. 06/04/2021 CT scan chest abdomen pelvis without contrast: [...] with diagnosis of muscular invasive bladder cancer. [id number] Mr. Aguilar received 4 cycles of neoadjuvant [...] at home again and doing quite well. 11/10/21 CT scan is negative for cancer recurrence. He is doing well oncoological standpoint. We will see him back in 6 months with blood work and CT scan. 07/07/22 CT neg for metastatic disease. 2 years out from surgery Mr. Aguilar is doing well with oncological standpoint We will continue active surveillance. We will see him back in 6 months with blood work and CT scan. He continues to follow up with his PCP Dr Dowling. 12/22/22 He did not have his CT scan done. He will need to reschedule it within the next month. He is now 2.5 yrs from his surgery. He is clinically stable. His blood work is all within normal limits with the exception of his Alk phos which is slightly above normal. Based on the results of his CT scan we will schedule a follow up. I will ask the secretaries to schedule this as soon as possible. Smoking: Smokes 1.5 pks/day Not interested in quitting #Aortic aneurysm: Was seen by vascular surgeon. Plan: 1. Continue surveillance 2. He did not have a CT scan done. He will have it done locally within the next month. If it is stable then we well see him in [address] scan and labs Mr. Aguilar voiced understanding of the plan [...] AM EST Office Visit Hematology/Oncology at [address] [phone] Chanelle Kim RATE MARKER [facility] [place] [address] Bee Curry [facility] [place] [address] documented as of this encounter Visit Diagnoses Diagnosis Malignant neoplasm of urinary bladder, unspecified site documented in this encounter Care Teams Grounds Maintenance Worker Relationship Specialty Start Date End Date Subhash Dowling MD [address] [place] [id number] PCP - General 06/03/10 documented as of this encounter
--- OUTSIDE RECORDS SUMMARY | 2024-08-15 01:31 | XMS_ITS | Encounter Summary ---
Author Organization [facility] Address [facility] [place] [address] Care Team Providers Care Aircraft Skin Burnisher Name Role Phone Subhash Dowling MD Primary Care Provider [phone] Encounter Details Date Type Department Care Team (Late st Contact Info) Description 11/11/2021 3:00 PM EDT Office Visit Hematology/Oncology at [address] [phone] Aries Quiñones MD [facility] DR HEMATOLOGY [place] [address] Chanelle Kim APRN [facility] [place] [address] Malignant neoplasm of urinary bladder, unspecified site (Primary Dx); Tobacco abuse; Malignant neoplasm of overlapping sites of bladder [...] Sign Reading Time Taken Comments Blood Pressure - - Pulse 88 11/11/2021 3:02 PM EDT Temperature 36.1 ??C (97 ??F) 11/11/2021 3:02 PM EDT Respiratory Rate 16 11/11/2021 3:02 PM EDT Oxygen Saturation 98% 11/11/2021 3:02 PM EDT Inhaled Oxygen Concentration - - Weight 59 kg (130 lb) 11/11/2021 3:02 PM EDT Height 167.6 cm (5' 5.98) 11/11/2021 3:02 PM ED T Body Mass Index 20.99 11/11/2021 3:02 PM EDT documented in this encounter Progress Notes * Aries Quiñones MD - 11/11/2021 3:00 PM EDT Images from the original note were not included. Diagnosis: High-grade bladder cancer, [id number] HPI:Gt Aguilar is 71 y[address] Hurley for a [...] least 3appointments due to transportation problem. Interval History:(11/11/21)- Gt returns to the [facility] for follow up for muscular invasive bladder cancer s/p cystoprostatectomy with ileal conduit and discussion on restaging CT scan..He is doing well today. He is living at home now and has a friend that lives with him. Complains onleg pain when he walks around. He was seen by vascular surgeon. Appetite is good. He gets out and [...] Medications: Your Medications Accurate as of November 11, 2021 3:29 PM. If you have any questions, ask [...] and axillary nodes normal Neurologic: Normal Vitals Pulse 88 Temp 36.1 ??C (97 ??F) (Temporal) Resp 16 Ht 167.6 cm (5' 5.98) Wt 59 kg (130 lb) SpO2 98% BMI 20.99 kg/m?? Pathology: 02/13/2020 had a cystoprostatectomy +ileal [...] - Focal urothelial carcinoma in situ Labs: 11/11/2021 WBC 7.68, hemoglobin 15.4, platelet count [...] 125, BUN 19, creatinine 1.1, calcium 9.3, [id number], total protein 6.7, albumin 4.0, TB 0.3 [...] Hgb/Hct-15.4/47.3 Plt-194 ANC-7.14 K+-4.5 BUN/Cr-14/1.17 Ca-9.6 Albumin-4.4 Imagin09/25/2021 CT chest, abdomen and pelvis with contrast: [...] with diagnosis of muscular invasive bladder cancer. [id number] Mr. Aguilar received 4 cycles of neoadjuvant [...] follow up with his PCP Dr Dowling. Smoking: Smokes a pack a day. Not interested in quitting #Aortic aneurysm: Was seen by vascular surgeon. Appointment scheduled in July. Plan: 1. Continue surveillance 2. Next visit in 6 months with CBC, CMP and CT scan [...] 11:30 AM EST Office Visit Hematology/Oncology at [address] [phone] Chanelle Kim, [facility] [place] [address] Bee Curry [facility] [place] [address] documented as of this encounter Visit Diagnoses Diagnosis Malignant neoplasm of urinary bladder, unspecified site- Primary Tobacco abuse Tobacco use disorder Malignant neoplasm of overlapping sites of bladder Malignant neoplasm of other specified sites of bladder documented in this encounter Care Teams Aircraft Skin Burnisher Relationship Specialty Start Date End Date Subhash Dowling MD [address] [place] [id number] PCP - General 06/03/10 documented as of this encounter
--- OUTSIDE RECORDS SUMMARY | 2024-08-15 01:31 | XMS_ITS | Encounter Summary ---
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 HEMAT[place] [address] [place] [address] Referral ID Status Reason Start Date Expiration Date V isits Requested Visits Authorized [id number] Closed Specialty Service Requested 06/22/2023 12/21/2024 1 1 Encounter Details Date Type Department Care Team (Late st Contact Info) Description 06/22/2023 11:00 AM EST Office Visit Hematology/Oncology at [address] [phone] Aries Quiñones MD [facility] HEMATOLOGY [place] [address] Bee Curry APRN 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 Diagnosis: High-grade bladder cancer, [id number] HPI:Gt Aguilar is 72 y.o. referred by [...] 3appointments due to transportation problem. Interval history 06/22/23 Gt returns to the clinic for routine followup of his muscular invasivebladder cancer. He states that he has been well over the last 6 months. He has had no new illnessesor hospitalizations. He continues to smoke. His appetite is good. His breathing is stable. He has no issues with his bowels. He denies any hematuria. It is unchanged. Ostomy works well ROS is otherwise negative. PMH: No interval changes since last visit [...] Medications: Your Medications Accurate as of June 22, 2023 10:22 AM. If you have any questions, ask your [...] axillary nodes normal Neurologic: Normal Vitals BP 131/79 (Patient Position: Sitting) Pulse 88 Temp 36.3 ??C (97.3 ??F) (Temporal) Resp 16 Ht 167.6 cm (5' 5.98) Wt 60.3 kg (133 lb) SpO2 99% BMI 21.48 kg/m?? Pathology: 02/13/2020 had a cystoprostatectomy +ileal [...] - Focal urothelial carcinoma in situ Labs: 06/22/2023 BUN 26, creatinine 1.4, calcium 9.3, AST 11, ALT 18, alkaline phosphatase 135, albumin 3.7, WBC 7.23, hemoglobin 16.3, platelet count 159, 12/22/22 WBC 6.62 H/H 16.6/47.6 Plts 162 [...] 125, BUN 19, creatinine 1.1, calcium 9.3, [id number], total protein 6.7, albumin 4.0, TB 0.3 [...] albumin 3.3. 11/07/19- WBC-21.41 Hgb/Hct-13.9/40.4 Plt-302 ANC-16.16 BUN/Cr-16.23 Lytes and LFTS unremarkable Alk phos-222 Albumin-3.3 10/24/19- WBC-6.11 Hgb/Hct-14.2/41.8 Plts-121 ANC-3.78 BUN/Cr-1.28 Lytes and LFTS unremarkable Alk phos-156 Albumin-3.5 10/05/19- WBC-9.8 Hgb/Hct-15.4/47.3 Plt-194 ANC-7.14 K+-4.5 BUN/Cr-14/1.17 Ca-9.6 Albumin-4.4 Imagin02/05/2023 CT scan chest abdomen and pelvis: Impression: No pulmonary nodule. No pulmonary mass. No evidence of recurrent tumor. Increasing dilation of left collecting system. Previously 10 mm now 22 mm. Increasing dilation of right extrarenal pelvis. Previously 7 mm no 16.5 mm. No evidence of recurrent tumor 06/30/2022 CT chest abdomen pelvis with contrast: [...] with diagnosis of muscular invasive bladder cancer. [id number] Mr. Aguilar received 4 cycles of neoadjuvant [...] to schedule this as soon as possible. 06/22/[address] scan from January 2023. Will check with urologist Dr. Pierre on dilation right extrarenal pelvis Smoking: Smokes 1.5 pks/day Not interested in quitting #Aortic aneurysm: Was seen by vascular surgeon. Plan: 1. Continue surveillance 2. Next visit in 6 months with PET scan and labs Mr. 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 Expected: 12/22/2023 (Approximate), Expires: 06/22/2024 CBC (with Diff) Lab Routine Malignant neoplasm of urinary bladder, unspecified site Every 3 months for 4 Occurrences starting 06/22/2023 until 06/22/2024 Comprehensive metabolic panel (non-fasting) Lab Routine Malignant neoplasm of urinary bladder, unspecified site Every 3 months for 4 Occurrences starting 06/22/2023 until 06/22/2024 documented as of this encounter Procedures Procedure Name Priority Date/Time Associated Diagnosis Comments LAB SCAN 12/24/2023 12:00 AM EDT documented in this encounter Results * Scan Doc: Lab (12/24/2023 12:00 AM EDT) Narrative 12/24/2023 12:00 AM EDT Ordered by an unspecified provider. 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
--- OUTSIDE RECORDS SUMMARY | 2024-08-15 01:31 | XMS_ITS | Encounter Summary ---
Author Organization [facility] [place] [address] Care Team Providers Care Birthing Nurse Name Role Phone Subhash Dowling MD Primary Care Provider [phone] Encounter Details Date Type Department Care Team (Late Contact Info) Description 09/25/2021 Ancillary Procedure Radiology Library at [facility] [place] [address] Aries Quiñones MD [facility] HEMATOLOGY [place] [address] Social History Tobacco Use Types Packs/Day Years [...] AM EST Office Visit Hematology/Oncology at [address] [phone] Chanelle Kim [facility] [place] [address] Bee Curry [employer] [facility] [place] [address] documented as of this encounter Procedures Procedure Name Priority Date/Time Associated Diagnosis Comments FILM LIBRARY STORAGE ONLY CT CHEST ABDOMEN PELVIS Routine 09/25/2021 12:00 AM EDT documented in this encounter Results * Film Library- Storage Only CT Chest Abdomen Pelvis (09/25/2021 12:00 AM EDT) Narrative [place] - 10/22/2021 9:55 PM EDT This exam is auto-finalizing. It's purpose is for storage only. Aries Quiñones MD IMG FILM LIBRARY ORD ERABLES Performing Organization Address City/State/[facility] Co de Phone Number [place], [place] documented in this encounter Visit Diagnoses Not on filedocumented in this encounter Care Teams Birthing Nurse Relationship Specialty Start Date End Date Subhash Dowling MD [address] [place] [id number] PCP - General 06/03/10 documented as of this encounter
--- OUTSIDE RECORDS SUMMARY | 2024-08-15 01:31 | XMS_ITS | Encounter Summary ---
Author Organization [facility] [place] [address] Care Team Providers Care Radio Frequency Engineer Name Role Phone Subhash Dowling MD Primary Care Provider [phone] Encounter Details Date Type Department Care Team (Late Contact Info) Description 02/01/2023 Telephone Hematology/Oncology at [address] [phone] Nancy Ramirez Social History Tobacco [...] * Telephone Encounter - Nancy Ramirez - 02/01/2023 11:09 AM EDT Called chichi to check in to make sure that Gt has a ride for his up coming ct scan. She said she schedules all his rides. Let her know about appt on 03/16/23 and needed labs prior at 8am she willcall back to let us know about scheduling for appt documented in this encounter Plan of Treatment Upcoming Encounters Date Type Department Care Team ([facility] Contact Info) Description 08/15/2024 11:30 AM EST Office Visit Hematology/Oncology at [address] [phone] Chanelle Kim, [facility] [place] [address] Bee Curry [facility] [place] [address] documented as of this encounter Visit Diagnoses Not on filedocumented in this encounter Care Teams Radio Frequency Engineer Relationship Specialty Start Date End Date Subhash Dowling MD [address] [place] [address] PCP - General 06/03/10 documented as of this encounter
--- OUTSIDE RECORDS SUMMARY | 2024-08-15 01:31 | XMS_ITS | Encounter Summary ---
Author Organization [facility] [place] [address] Care Team Providers Care Customs Agent Name Role Phone Subhash Dowling MD Primary Care Provider [phone] Reason for Visit * Reason Onset Date Comments Other 09/10/2020 transportation p nadir review Encounter Details Date Type Department Care Team (Late st Contact Info) Description 09/10/2020 Telephone Hematology/Oncology at [address] [phone] Nadia Mueller MSW OFFICE OF [...] Telephone Encounter - Nadia Mueller MSW - 09/10/2020 8:10 AM EST Transportation Plan Review Transportation service provider: LENA @ [phone] Person coordinating transportation: Nadia Mueller, @ [phone] Transportation request submitted to service provider: Messaged RCT to request rides for labs and provider visit for 11-12-20 Reviewed/matched transportation request with appointment schedule: yes Patient has contact information to transportation provider: yes Actions taken today: Messaged RCT to request rides for labs and provider visit for 11-12-20 documented in this encounter Plan of Treatment Upcoming Encounters Date Type Department Care Team (Late st Contact Info) Description 08/15/2024 11:30 AM EST Office Visit Hematology/Oncology at [address] [phone] Chanelle Kim, [facility] [place] [address] Bee Curry, [facility] [address] documented as of this encounter Visit Diagnoses Not on filedocumented in this encounter Care Teams Customs Agent Relationship Specialty Start Date End Date Subhash Dowling MD [address] [place] [address] PCP - General 06/03/10 documented as of this encounter
--- OUTSIDE RECORDS SUMMARY | 2024-08-15 01:31 | XMS_ITS | Encounter Summary ---
Author Organization [facility] [place] [address] Care Team Providers Care Casualty Claim Adjuster Name Role Phone Subhash Dowling MD Primary Care Provider [phone] Encounter Details Date Type Department Care Team (Late Contact Info) Description 12/13/2023 Telephone Hematology/Oncology at [address] [phone] Nancy Ramirez Social History Tobacco Use Types [...] * Telephone Encounter - Nancy Ramirez - 12/13/2023 8:45 AM EDT Called and spoke to Ketty today regarding an janice for Gt in [employer]. He needs to have a nm pet ct done. She said that they could get him to [facility] for that appt. documented in this encounter Plan of Treatment Upcoming Encounters Date Type Department Care Team (Late Contact Info) Description 08/15/2024 11:30 AM EST Office Visit Hematology/Oncology at [address] [phone] Chanelle Kim, [facility] [place] [address] Bee Curry, [facility] [place] [address] documented as of this encounter Visit Diagnoses Not on filedocumented in this encounter Care Teams Casualty Claim Adjuster Relationship Specialty Start Date End Date Subhash Dowling MD [address] [place] [address] PCP - General 06/03/10 documented as of this encounter
--- OUTSIDE RECORDS SUMMARY | 2024-08-15 01:31 | XMS_ITS | Encounter Summary ---
Author Organization [facility] Address [facility] [place] [address] Care Team Providers Care Bottom Man Name Role Phone Subhash Dowling MD Primary Care Provider [phone] Encounter Details Date Type Department Care Team (Latest Contact Info) Description 06/22/2023 Travel Social History Tobacco Use Types Packs/Day [...] 11:30 AM EST Office Visit Hematology/Oncology at [address] [phone] Chanelle Kim DISTANCE LEARNING TECHNICIAN [facility] [place] [address] Bee Curry [facility] [place] [address] documented as of this encounter Visit Diagnoses Not on filedocumented in this encounter Care Teams Bottom Man Relationship Specialty Start Date End Date Subhash Dowling MD [address] [place], [place] [address] PCP - General 06/03/10 documented as of this encounter
--- OUTSIDE RECORDS SUMMARY | 2024-08-15 01:31 | XMS_ITS | Encounter Summary ---
Author Organization [facility] [place] [address] Care Team Providers Care Cell Liner Name Role Phone Subhash Dowling MD Primary Care Provider [phone] Reason for Visit * Reason Onset Date Comments Other 09/12/2020 transportation p nadir review Encounter Details Date Type Department Care Team (Late st Contact Info) Description 09/12/2020 Telephone Hematology/Oncology at [address] [phone] Nadia Mueller MSW OFFICE OF [...] Telephone Encounter - Nadia Mueller MSW - 09/12/2020 7:41 AM EST Transportation Plan Review Transportation service provider: LENA @ [phone] Person coordinating transportation: Nadia Mueller, @ [phone] Transportation request submitted to service provider: yes for 11-12-20 appointment at [facility] Reviewed/matched transportation request with appointment schedule: yes Patient has contact information to transportation provider: yes Actions taken today: none documented in this encounter Plan of Treatment Upcoming Encounters Date Type Department Care Team (Late st Contact Info) Description 08/15/2024 11:30 AM EST Office Visit Hematology/Oncology at [address] [phone] Chanelle Kim, [facility] [place] [address] Bee Curry [facility] [place] [address] documented as of this encounter Visit Diagnoses Not on filedocumented in this encounter Care Teams Cell Liner Relationship Specialty Start Date End Date Subhash Dowling MD [address] [place] [address] PCP - General 06/03/10 documented as of this encounter
--- OUTSIDE RECORDS SUMMARY | 2024-08-15 01:31 | XMS_ITS | Encounter Summary ---
Author Organization [facility] [place] [address] Care Team Providers Care Workers Compensation Legal Secretary Name Role Phone Subhash Dowling MD Primary Care Provider [phone] Encounter Details Date Type Department Care Team (Late Contact Info) Description 12/24/2023 4:25 PM EDT Ancillary Procedure Radiology Library at [facility] [place] [address] Subhash Dowling MD [address] [place] [address] Social History Tobacco Use Types Packs/Day Years [...] 11:30 AM EST Office Visit Hematology/Oncology at [address] [phone] Chanelle Kim, [facility] [place] [address] Bee Curry [facility] [place] [address] documented as of this encounter Procedures Procedure Name Priority Date/Time Associated Diagnosis Comments FILM LIBRARY STORAGE ONLY NM PET/CT Routine 12/24/2023 4:22 PM EDT documented in this encounter Results * Film Library- Storage Only NM Pet / CT (12/24/2023 4:22 PM EDT) 12/24/2023 4:22 PM EDT Narrative [facility] - 12/24/2023 4:22 PM EDT This exam is auto-finalizing. It's purpose is for storage only. Subhash Dowling MD G FILM LIBRARY ORD ERABLES Performing Organization Address City/State/[facility] Co de Phone Number [place], [place] documented in this encounter Visit Diagnoses Not on filedocumented in this encounter Care Teams Workers Compensation Legal Secretary Relationship Specialty Start Date End Date Suhbash Dowling MD [address] [place] [phone] PCP - General 06/03/10 documented as of this encounter
--- OUTSIDE RECORDS SUMMARY | 2024-08-15 01:31 | XMS_ITS | Encounter Summary ---
Author [facility] [place] [address] Care Team Providers Care Towboat Operator Name Role Phone Subhash Dowling MD Primary Care Provider [phone] Reason for Visit * Reason Onset Date Comments Other 08/20/2020 transportation p nadir review Encounter Details Date Type Department Care Team (Late st Contact Info) Description 08/20/2020 Telephone Hematology/Oncology at [address] [phone] Nadia Mueller MSW OFFICE OF [...] Telephone Encounter - Nadia Mueller MSW - 08/20/2020 8:06 AM EST Transportation Plan Review Transportation service provider: LENA @ [phone] Person coordinating transportation: Nadia Mueller, @ [phone] Transportation request submitted to service provider: will schedule ride closer to appointment datein May Reviewed/matched transportation request with appointment schedule: Patient has contact information to transportation provider: yes Actions taken today: none documented in this encounter Plan of Treatment Upcoming Encounters Date Type Department Care Team (Late st Contact Info) Description 08/15/2024 11:30 AM EST Office Visit Hematology/Oncology at [address] [phone] Chanelle Kim, [facility] [address] MEDICAL [place] [address] Bee Curry [facility] MEDICAL [place] [address] documented as of this encounter Visit Diagnoses Not on filedocumented in this encounter Care Teams Towboat Operator Relationship Specialty Start Date End Date Subhash Dowling MD [address] [place] [address] PCP - General 06/03/10 documented as of this encounter
--- OUTSIDE RECORDS SUMMARY | 2024-08-15 01:31 | XMS_ITS | Encounter Summary ---
Author Organization [facility] [place] [address] Care Team Providers Care Flap Curer Name Role Phone Subhash Dowling MD Primary Care Provider [phone] Reason for Visit * Reason Onset Date Comments Follow-up 06/15/2023 Encounter Details Date Type Department Care Team (Late Contact Info) Description 06/15/2023 Telephone Hematology/Oncology at [address] [phone] Denise Lamb RN Follow-up Social History Tobacco Use Types Packs/Day Years [...] Telephone Encounter - Denise Lamb RN - 06/15/2023 1:19 PM EST Called and spoke with Ketty henson's friend, she will set up a ride for him for next Wednesday to go [facility] at 10 am for labs then down here to see Dr. Quiñones. She will call and let Gt know. documented in this encounter Plan of Treatment Upcoming Encounters Date Type Department Care Team (Late Contact Info) Description 08/15/2024 11:30 AM EST Office Visit Hematology/Oncology at [address] [phone] Chanelle Kim, [facility] [place] [address] Bee Curry, [facility] [place] [address] documented as of this encounter Visit Diagnoses Not on filedocumented in this encounter Care Teams Flap Curer Relationship Specialty Start Date End Date Subhash Dowling MD [address] [place] [address] PCP - General 06/03/10 documented as of this encounter
--- OUTSIDE RECORDS SUMMARY | 2024-08-15 01:31 | XMS_ITS | Encounter Summary ---
Author Organization [facility] Address [facility] [place] [address] Care Team Providers Care Asphalt Paver Operator Name Role Phone Subhash Dowling MD Primary Care Provider [phone] Encounter Details Date Type Department Care Team (Late st Contact Info) Description 02/11/2021 10:30 AM EDT Office Visit Hematology/Oncology at [address] [phone] Aries Quiñones MD [facility] DR HEMATOLOGY [place] [address] Chanelle Kim APRN [facility] [place] [address] Malignant neoplasm of urinary bladder, unspecified site [...] Sign Reading Time Taken Comments Blood Pressure 131/76 02/11/2021 9:45 AM EDT Pulse 97 02/11/2021 9:45 AM EDT Temperature 37.2 ??C (98.9 ??F) 02/11/2021 9:45 AM ED T Respiratory Rate 28 02/11/2021 9:45 AM EDT Oxygen Saturation 99% 02/11/2021 9:45 AM EDT Inhaled Oxygen Concentration - - Weight 57.5 kg (126 lb 12.8 oz) 02/11/2021 9:45 AM EDT Height 167.6 cm (5' 5.98) 02/11/2021 9:45 AM ED T Body Mass Index 20.48 02/11/2021 9:45 AM EDT documented in this encounter Progress Notes * Julio Chanelle Tito, INSTRUMENT MAKER - 02/11/2021 10:30 AM EDT Images from the original note were not included. Diagnosis: High-grade bladder cancer, [id number] HPI:Gt Aguilar is 70 y.o. referred by [...] least 3appointments due to transportation problem. 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 He is doing well today. He is livingat home now and has a friend that lives with him. He has someone help him with his medications. Denies any pain. Appetite is good. He gets out and walks. He is growing some vegetable on his deck in pots so he is eating well. He has adjusted to the ileal conduit but still would like it gone. He understands that is his bladder now. He is smoking a pack and 1/2 a day. No hematuria. No cough, shortness of breath or edema. Denies any bowel issues. PMH: Hospitalization 02/13/20-03/07/20- Cystoprostatectomy with ileal conduit. All [...] facility Medications: Your Medications Accurate as of February 11, 2021 9:47 AM. If you have any questions, ask [...] constipation-uses laxatives. Genitourinary: Negative for hematuria. Musculoskeletal: Negative. Skin: Negative. Neurological: Negative. Hematological: Negative for [...] throughout. Chest Wall: No tenderness or deformity. [facility]: Regular rate and rhythm, S1, S2 [...] axillary nodes normal Neurologic: Normal Vitals BP 131/76 (Patient Position: Sitting) Pulse 97 Temp 37.2 ??C (98.9 ??F) (Temporal) Resp 28 Ht 167.6 cm (5' 5.98) Wt 57.5 kg (126 lb 12.8 oz) SpO2 99% BMI 20.48 kg/m?? Pathology: 02/13/2020 had a cystoprostatectomy +ileal [...] - Focal urothelial carcinoma in situ Labs: 02/11/21- WBC-7.48 Hgb/Hct-15.3/45.1 Plt-142 ANC-5.01 Na-139 K+-4.6 BUN/cr-26/1.3 Glucose-107 Ca-9.4 T. Bili-0.4 AST-12 ALT-17 Alk phos-116 Albumin-3.9 10/11/2020 WBC 6.4, hemoglobin 14.7, platelet count 127, ANC 4.01, BUN 19, creatinine 1.2, calcium 9.2, albumin 4.3, TB 0.5, alkaline phosphatase 106, ALT 15, AST 24 07/29/2020 WBC 6.4, hemoglobin 14.3, platelet count 125, BUN 19, creatinine 1.1, calcium 9.3, [id number], total protein 6.7, albumin 4.0, TB 0.3 [...] Hgb/Hct-15.4/47.3 Plt-194 ANC-7.14 K+-4.5 BUN/Cr-14/1.17 Ca-9.6 Albumin-4.4 Imagin02/05/21- CT Chest, abdomen, pelvis- Impression- 1. No [...] with diagnosis of muscular invasive bladder cancer. [id number] Mr. Aguilar received 4 cycles of neoadjuvant [...] at home again and doing quite well. We reviewed his CT scan results from 02/05/21- no evidence of metastatic disease. There is no clinical evidence of disease recurrence. He continues to follow up with Dr. [facility] and his PCP Dr Dowling. CANCER SURVIVORSHIP- Reviewed with Gt today signs/symptoms of cancer recurrence he should report- any new pain that isn't going away, change in appetite/unusual weight loss, blood in urine, unusual fatigue or any other changes that do not go away. We discussed healthy living recommendations for cancer survivors today. Fresh fruits and vegetables in diet- he is growing his own vegetables. Daily exercise that raisesheart rate- he tries to walk daily. Smoking cessation- still smoking 1 1/2 packs a day- he is not receptive to quitting - he will try to cut down. Limiting alcohol. We discussed importance of follow up with his PCP for his cancer screenings, yearly physical and immunizations. Plan: 1. Continue surveillance visits every 3 [...] AM EST Office Visit Hematology/Oncology at [address] [phone] Chanelle Kim APRN [facility] [place] [address] Bee Curry APRN [facility] [place] [address] documented as of this encounter Visit Diagnoses Diagnosis Malignant neoplasm of urinary bladder, unspecified site documented in this encounter Care Teams Asphalt Paver Operator Relationship Specialty Start Date End Date Subhash Dowling MD [address] [place] [address] PCP - General 06/03/10 documented as of this encounter
--- OUTSIDE RECORDS SUMMARY | 2024-08-15 01:31 | XMS_ITS | Encounter Summary ---
Author Organization [facility] Address [facility] [place] [address] Care Team Providers Care Radiation Control Specialist Name Role Phone Subhash Dowling MD Primary Care Provider [phone] Reason for Visit * - Closed Specialty Diagnoses / Procedures Referred By Contelaina t Referred To Contact Procedures Film Library- Storage Only CT Chest Abdomen Pelvis Subhash Dowling MD [address] [address] Referral ID Status Reason Start Date Expiration Date Visits Re quested Visits Authorized [id number] Closed 11/07/2020 11/07/2021 1 1 Encounter Details Date Type Department Care Team (Late Contact Info) Description 10/11/2020 Ancillary Procedure Radiology Library at [facility] [place] [address] Subhash Dowling MD [address] [address] Social History Tobacco Use Types Packs/Day Years [...] Upcoming Encounters Date Type Department Care Team ([facility] Contact Info) Description 08/15/2024 11:30 AM EST Office Visit Hematology/Oncology at [address] [phone] Chanelle Kim, [facility] [place] [address] Bee Curry [facility] [place] [address] documented as of this encounter Procedures Procedure Name Priority Date/Time Associated Diagnosis Comments FILM LIBRARY STORAGE ONLY CT CHEST ABDOMEN PELVIS Routine 10/11/2020 12:00 AM EDT documented in this encounter Results * Film Library- Storage Only CT Chest Abdomen Pelvis (10/11/2020 12:00 AM EDT) Narrative [facility] - 11/07/2020 3:50 PM EDT This exam is auto-finalizing. It's purpose is for storage only. Subhash Dowling MD G FILM LIBRARY ORD ERABLES Organ, [place] documented in this encounter Visit Diagnoses Not on filedocumented in this encounter Care Teams Radiation Control Specialist Relationship Specialty Start Date End Date Subhash Dowling MD [address] [place] [address] PCP - General 06/03/10 documented as of this encounter
--- OUTSIDE RECORDS SUMMARY | 2024-08-15 01:31 | XMS_ITS | Encounter Summary ---
Author Organization [facility] [place] [address] Care Team Providers Care Air Conditioning Specialist Name Role Phone Subhash Dowling MD Primary Care Provider [phone] Encounter Details Date Type Department Care Team (Late st Contact Info) Description 07/18/2024 Telephone Hematology/Oncology at [address] [phone] Nnacy Ramirez Social History Tobacco Use Types Packs/Day [...] * Telephone Encounter - Nancy Ramirez - 07/18/2024 2:35 PM EST I called Gt to see if he was going to make his appt today. There was no answer. I left a message. I called Vinod to see if he would be in today. She said that she did not know that he had an appt and so he would not be in today. I have rescheduled his appt and will mail out a new appt letter. I have also called Vinod to let her know as well. I had to leave a message documented in this encounter Plan of Treatment Upcoming Encounters Date Type Department Care Team (Late st Contact Info) Description 08/15/2024 11:30 AM EST Office Visit Hematology/Oncology at [address] [phone] Chanelle Kim, [facility] [place] [address] Bee Curry [facility] [place] [address] documented as of this encounter Visit Diagnoses Not on filedocumented in this encounter Care Teams Air Conditioning Specialist Relationship Specialty Start Date End Date Subhash Dowling MD [address] [place] [address] PCP - General 06/03/10 documented as of this encounter
--- OUTSIDE RECORDS SUMMARY | 2024-08-15 01:31 | XMS_ITS | Encounter Summary ---
Author Organization Formerly [facility] Address [facility] [place] [address] Care Team Providers Care Creosoting Engineer Name Role Phone Subhash Dowling MD Primary Care Provider [phone] Encounter Details Date Type Department Care Team (Late st Contact Info) Description 01/11/2024 10:00 AM EDT Office Visit Hematology/Oncology at [address] [phone] Aries Quiñones MD [facility] DR HEMATOLOGY [place] [address] Bee Curry APRN [facility] [place] [address] Malignant neoplasm of urinary bladder, unspecified site [...] Mass Index 19.93 01/11/2024 9:57 AM EDT documented in this encounter Progress Notes * Bee Curry, TELEGRAPHIC TYPEWRITER INSTALLER - 01/11/2024 10:00 AM EDT Images from the original note were not included. Diagnosis: High-grade bladder cancer, [id number] HPI:Gt Aguilar is 73 y[address] Dr[address] Hurley for a [...] 3appointments due to transportation problem. Interval history 01/11/24 Gt returns to the clinic for routine followup of his muscular invasive bladder cancer. He states that he has been well over the last 6 months. He has chronic L. Shoulder discomfort and an old shoulder injury, this is stable. He has occasional constipation since his urinary diversion surgery and this is stable. He has had no new illnesses or hospitalizations. He continues to smoke. His appetite is good. His breathing is stable. He has no issues with his bowels. He denies any hematuria. It is unchanged. Ostomy works well ROS is otherwise negative. PMH: Hospitalization 02/13/20-03/07/20- Cystoprostatectomy with ileal conduit. [...] facility Medications: Your Medications Accurate as of January 11, 2024 10:24 AM. If you have any questions, ask your nurse or doctor. Continued medications, unchanged Dose Details acetaminophen 500 mg tablet Commonly known as: Tylenol Take 2 tablets by mouth every 6 hours as needed for Pain. 1,000 mg Quantity: 30 tablet Refills: 1 albuteroL 90 mcg/actuation inhaler (HFA) Inhale 2 puffs into the lungs every 4 hours as needed for Wheezing. Use with spacer 2 puff Refills: 0 aspirin EC 81 mg EC (DR) tablet Take 81 mg by mouth daily. 81 mg Refills: 0 atorvastatin 20 mg tablet Commonly known as: Lipitor Take 20 mg by mouth daily. 20 mg Refills: 0 Review of Systems: As in interval history PE: General: AAAx3, in NAD Head: Normocephalic, without obvious abnormality, atraumatic Eyes: nonicteric Neck: No lymphadenopathy Lungs: Clear to auscultation bilaterally, respirations unlabored. Diminished breath sounds throughout. Heart: Regular rate and rhythm, S1, S2 normal, no murmur, rub or gallop Abdomen: Ileal conduit. Urine clear yellow with mucous. Stoma pink. Soft, non-tender, bowel sounds active all four quadrants, no masses, no organomegaly. There is no appreciable ascites Extremities: No swelling edema . R leg shorter than left leg due to old injury. Lymph nodes: Cervical, supraclavicular, and axillary nodes normal Neurologic: Normal Vitals BP 133/75 (Patient Position: Sitting) Pulse 72 Temp 36.2 ??C (97.1 ??F) (Temporal) Resp 18 Ht 167.6 cm (5' 5.98) Wt 56 kg (123 lb 6.4 oz) SpO2 98% BMI 19.93 kg/m?? Pathology: 02/13/2020 had a cystoprostatectomy +ileal [...] - Focal urothelial carcinoma in situ Labs: 12/24/23 BUN 29, creatinine 1.5, calcium 9.4, AST 14, ALT 20, alkaline phosphatase 158, albumin 3.3,WBC 6.9, hemoglobin 15.8, platelet count 168, 06/22/2023 BUN 26, creatinine 1.4, calcium 9.3, [...] 125, BUN 19, creatinine 1.1, calcium 9.3, [id number], total protein 6.7, albumin 4.0, TB 0.3 [...] albumin 3.3. 11/07/19- WBC-21.41 Hgb/Hct-13.9/40.4 Plt-302 ANC-16.16 BUN/Cr-27/07. Lytes and LFTS unremarkable Alk phos-222 Albumin-3.3 10/24/19- WBC-6.11 Hgb/Hct-14.2/41.8 Plts-121 ANC-3.78 BUN/Cr-31/07.28 Lytes and LFTS unremarkable Alk phos-156 Albumin-3.5 10/05/19- WBC-9.8 Hgb/Hct-15.4/47.3 Plt-194 ANC-7.14 K+-4.5 BUN/Cr-14/.17 Ca-9.6 Albumin-4.4 Imagin12/25/23: PET/CT showed no evidence of locally recurrent or metastatic malignancy 02/05/2023 CT scan chest abdomen and pelvis: Impression: [...] with diagnosis of muscular invasive bladder cancer. [id number] Mr. Aguilar received 4 cycles of neoadjuvant [...] Dr. Pierre on dilation right extrarenal pelvis 01/11/24 PET/CT showed MINAL. He is now 4 years form his surgery. Clinically he is stable. Recommend hefollow up with Urology for hx of urostomy. Current everyday smoker: Smokes 1.5 pks/day Not interested in quitting #Aortic aneurysm: Was seen by vascular surgeon. #Constipation: present since surgery. Recommend he see his PCP. Plan: 1. Continue surveillance 2. Next visit in 6 months labs prior to visit, CBC, CMP, Vitamin B12 3. PET in 1 year (01/2025) Bee Curry APRN 25 minutes were spent on date of visit, including non-face to face time. documented in this encounter Plan of Treatment Upcoming Encounters Date Type Department Care Team (Late st Contact Info) Description 08/15/2024 11:30 AM EST Office Visit Hematology/Oncology at [address] [phone] Chanelle Kim APRN [facility] [place] [address] Bee Curry APRN [facility] [place] [address] Scheduled Orders Name Type Priority Associated Diagnoses Orde r Schedule Comprehensive metabolic panel (non-fasting) Lab Routine Malignant neoplasm of urinary bladder, unspecified site Every 6 months for 2 Occurrences starting 01/11/2024 until 01/10/2025 CBC (with Diff) Lab Routine Malignant neoplasm of urinary bladder, unspecified site Every 6 months for 2 Occurrences starting 01/11/2024 until 01/10/2025 Vitamin B12 Lab Routine Malignant neoplasm of urinary bladder, unspecified site Expected: 07/13/2024, Expires: 07/13/2025 documented as of this encounter Visit Diagnoses Diagnosis Malignant neoplasm of urinary bladder, unspecified site documented in this encounter Care Teams Creosoting Engineer Relationship Specialty Start Date End Date Subhash Dowling MD [address] [place] [id number] PCP - General 06/03/10 documented as of this encounter
--- OUTSIDE RECORDS SUMMARY | 2024-08-15 01:31 | XMS_ITS | Encounter Summary ---
Author Organization [facility] Address [facility] [address] Care Team Providers Care Rotary Adjuster Name Role Phone Subhash Dowling MD Primary Care Provider [phone] Encounter Details Date Type Department Care Team (Late Contact Info) Description 02/17/2023 Telephone Hematology/Oncology at [address] [phone] Nancy Ramirez Social History Tobacco [...] * Telephone Encounter - Nancy Ramirez - 02/17/2023 9:16 AM EDT Called [facility] to see if they could push Micky's images to the Film library. Had to leave a message documented in this encounter Plan of Treatment Upcoming Encounters Date Type Department Care Team (Late Contact Info) Description 08/15/2024 11:30 AM EST Office Visit Hematology/Oncology at [address] [phone] Chanelle Kim, FLIGHT INSPECTOR [facility] [place] [address] [facility] [place] [address] documented as of this encounter Visit Diagnoses Not on filedocumented in this encounter Care Teams Rotary Adjuster Relationship Specialty Start Date End Date Subhash Dowling MD [address] [place] [id number] PCP - General 06/03/10 documented as of this encounter
--- OUTSIDE RECORDS SUMMARY | 2024-08-15 01:31 | XMS_ITS | Encounter Summary ---
Author Organization [facility] Address [facility] [place] [address] Care Team Providers Care Quenching Machine Operator Name Role Phone Subhash Dowling MD Primary Care Provider [phone] Encounter Details Date Type Department Care Team (Latest Contact Info) Description 01/11/2024 Travel Social History Tobacco Use Types Packs/Day [...] 11:30 AM EST Office Visit Hematology/Oncology at [address] [phone] Chanelle Kim CONTENT DESIGNER [facility] [place] [address] Bee Curry [facility] [place] [address] documented as of this encounter Visit Diagnoses Not on filedocumented in this encounter Care Teams Quenching Machine Operator Relationship Specialty Start Date End Date Subhash Dowling MD [address] [place], [place] [address] PCP - General 06/03/10 documented as of this encounter
--- OUTSIDE RECORDS SUMMARY | 2024-08-15 01:31 | XMS_ITS | Encounter Summary ---
Author Organization [facility] Address [facility] [place] [address] Care Team Providers Care Parts Control Clerk Name Role Phone Subhash Dowling MD Primary Care Provider [phone] Encounter Details Date Type Department Care Team (Late Contact Info) Description 09/12/2021 Telephone Hematology/Oncology at [address] [phone] Noah Garcia Social History Tobacco Use Types Packs/Day Years [...] encounter Miscellaneous Notes * Telephone Encounter - Noah Garcia - 09/12/2021 4:06 PM EST Routed scan to [facility]. Asked them to schedule week of 10/20. Asked them to please let me know when it was scheduled. documented in this encounter Plan of Treatment Upcoming Encounters Date Type Department Care Team (Late Contact Info) Description 08/15/2024 11:30 AM EST Office Visit Hematology/Oncology at [address] [phone] Chanelle Kim, DIRECTOR OF [facility] [place] [address] Bee Curry APRN [facility] [place] [address] documented as of this encounter Visit Diagnoses Not on filedocumented in this encounter Care Teams Parts Control Clerk Relationship Specialty Start Date End Date Subhash Dowling MD [address] [address] PCP - General 06/03/10 documented as of this encounter
--- OUTSIDE RECORDS SUMMARY | 2024-08-15 01:31 | XMS_ITS | Encounter Summary ---
Author Organization [facility] [place] [address] Care Team Providers Care Tax Compliance Manager Name Role Phone Subhash Dowling MD Primary Care Provider [phone] Encounter Details Date Type Department Care Team (Late st Contact Info) Description 02/05/2023 Telephone Hematology/Oncology at [address] [phone] Bailey Son RN Social History Tobacco Use Types Packs/Day Years [...] encounter Miscellaneous Notes * Telephone Encounter - Elaine Blanca RN - 02/08/2023 1:06 PM EDT Attempted to contact Gt regarding removal of port, the primary phone number listed is no longer in service, no answer at secondary number. Left message on his friend, Ketty's phone to have Gtget in contact with us. * Telephone Encounter - Bailey Son RN - 02/05/2023 3:20 PM EDT No answer when trying to call Gt to discuss port removal. * Telephone Encounter - Bailey Son RN - 02/05/2023 2:48 PM EDT I called the outpatient treatment center to confirm Gt has a port and they attempted to use it today for a scan. They did not access it (med/surg nurse did) but they were called to assess because there was no blood return. They advised to notify provider and not use the port. Gt stated to them the port has not been used since his last scan. Pts neighbor/friend ketty not aware he has a port. I attempted to call Gt and confirm he has not been getting it flushes but there was no answer. I will notify providers and ask for advice regarding port. ----- Message from Nancy Ramirez sent at 02/05/2023 2:02 PM EDT ----- Aliza called from [facility] to let us know that gt was there today for a scan and his port had no blood flow just FYI she said documented in this encounter Plan of Treatment Upcoming Encounters Date Type Department Care Team (Late st Contact Info) Description 08/15/2024 11:30 AM EST Office Visit Hematology/Oncology at [address] [phone] Chanelle Kim [facility] [place] [address] Bee Curry [facility] [place] [address] documented as of this encounter Visit Diagnoses Not on filedocumented in this encounter Care Teams Tax Compliance Manager Relationship Specialty Start Date End Date Subhash Dowling MD [address] [place] [address] PCP - General 06/03/10 documented as of this encounter
--- OUTSIDE RECORDS SUMMARY | 2024-08-15 01:31 | XMS_ITS | Encounter Summary ---
Author Organization [facility] [place] [address] Care Team Providers Care Alarm Signal Operator Name Role Phone Subhash Dowling MD Primary Care Provider [phone] Reason for Visit * Reason Onset Date Comments Other 08/08/2020 transportation p nadir review Encounter Details Date Type Department Care Team (Late st Contact Info) Description 08/08/2020 Telephone Hematology/Oncology at [address] [phone] Nadia Mueller MSW OFFICE OF [...] Telephone Encounter - Nadia Mueller MSW - 08/08/2020 3:11 PM EST Transportation Plan Review Transportation service provider: LENA @ [phone] Person coordinating transportation: Nadia Mueller, @ [phone] Transportation request submitted to service provider: appointment schedule in November will schedule ride with LENA closer to the appointment date. Reviewed/matched transportation request with appointment schedule: Patient has contact information to transportation provider: Actions taken today: none documented in this encounter Plan of Treatment Upcoming Encounters Date Type Department Care Team (Late st Contact Info) Description 08/15/2024 11:30 AM EST Office Visit Hematology/Oncology at [address] [phone] Chanelle Kim, [facility] [place] [address] Bee Curry [facility] [place] [address] documented as of this encounter Visit Diagnoses Not on filedocumented in this encounter Care Teams Alarm Signal Operator Relationship Specialty Start Date End Date Subhash Dowling MD [address] [place] [id number] PCP - General 06/03/10 documented as of this encounter
--- OUTSIDE RECORDS SUMMARY | 2024-08-15 01:31 | XMS_ITS | Encounter Summary ---
Author Organization [facility] [place] [address] Care Team Providers Care Fish Egg Packer Name Role Phone Subhash Dowling MD Primary Care Provider [phone] Encounter Details Date Type Department Care Team ([facility] Contact Info) Description 12/09/2023 Telephone Hematology/Oncology at [address] [phone] Nancy Ramirez Social History Tobacco [...] * Telephone Encounter - Nancy Ramirez - 12/09/2023 11:58 AM EDT Called Stephanie a family friend to see if he can be scheduled in let for the pet ct as the machine is broken at [facility] and do not know when it will be fixed. I had to leave a message. Will call back documented in this encounter Plan of Treatment Upcoming Encounters Date Type Department Care Team ([facility] Contact Info) Description 08/15/2024 11:30 AM EST Office Visit Hematology/Oncology at [address] [phone] Chanelle Kim, [facility] [place] [address] Bee Curry, [facility] [place] [address] documented as of this encounter Visit Diagnoses Not on filedocumented in this encounter Care Teams Fish Egg Packer Relationship Specialty Start Date End Date Subhash Dowling MD [address] [place] [id number] PCP - General 06/03/10 documented as of this encounter
--- OUTSIDE RECORDS SUMMARY | 2024-08-15 01:31 | XMS_ITS | Encounter Summary ---
Author Organization [facility] Address [facility] [place] [address] Care Team Providers Care Netbackup Admin Name Role Phone Subhash Dowling MD Primary Care Provider [phone] Encounter Details Date Type Department Care Team (Latest Contact Info) Description 07/07/2022 Travel Social History Tobacco Use Types Packs/Day [...] AM EST Office Visit Hematology/Oncology at [address] [phone] Chanelle Kim DIETARY SUPERVISOR [facility] [place] [address] Bee Curry [facility] [place] [address] documented as of this encounter Visit Diagnoses Not on filedocumented in this encounter Care Teams Netbackup Admin Relationship Specialty Start Date End Date Subhash Dowling MD [address] [place], [place] [address] PCP - General 06/03/10 documented as of this encounter
--- OUTSIDE RECORDS SUMMARY | 2024-08-15 01:31 | XMS_ITS | Encounter Summary ---
Author Organization [facility] Address [facility] [place] [address] Care Team Providers Care Smudger Name Role Phone Subhash Dowling MD Primary Care Provider [phone] Encounter Details Date Type Department Care Team (Late st Contact Info) Description 07/07/2022 11:00 AM EST Office Visit Hematology/Oncology at [address] [phone] Aries Quiñones MD [facility] [address] [place] [address] Chanelle Kim APRN [facility] [place] [address] Malignant neoplasm of urinary bladder, unspecified site [...] Sign Reading Time Taken Comments Blood Pressure 130/80 07/07/2022 11:09 AM EST Pulse 82 07/07/2022 11:09 AM EST Temperature 36.5 ??C (97.7 ??F) 07/07/2022 11:[address] Respiratory Rate 16 07/07/2022 11:09 AM EST Oxygen Saturation 99% 07/07/2022 11:09 AM EST Inhaled Oxygen Concentration - - Weight 58.1 kg (128 lb) 07/07/2022 11:09 AM EST Height 167.6 cm (5' 5.98) 07/07/2022 11:[address] Body Mass Index 20.67 07/07/2022 11:09 AM EST documented in this encounter Progress Notes * Aries Quiñones MD - 07/07/2022 11:00 AM EST Images from the original note were not included. Diagnosis: High-grade bladder cancer, [id number] HPI:Gt Aguilar is 71 y.o. referred by [...] least 3appointments due to transportation problem. Interval History:(07/07/22)- Gt returns to the [facility] for follow up for muscular invasive [...] facility Medications: Your Medications Accurate as of July 07, 2022 11:29 AM. If you have any questions, ask [...] axillary nodes normal Neurologic: Normal Vitals BP 130/80 (Patient Position: Sitting) Pulse 82 Temp 36.5 ??C (97.7 ??F) (Temporal) Resp 16 Ht 167.6 cm (5' 5.98) Wt 58.1 kg (128 lb) SpO2 99% BMI 20.67 kg/m?? Pathology: 02/13/2020 had a cystoprostatectomy +ileal [...] - Focal urothelial carcinoma in situ Labs: 06/30/2022 WBC 7.04, hemoglobin 16.7, platelet count [...] 125, BUN 19, creatinine 1.1, calcium 9.3, [id number], total protein 6.7, albumin 4.0, TB 0.3 [...] albumin 3.3. 11/07/19- WBC-21.41 Hgb/Hct-13.9/40.4 Plt-302 ANC-16.16 BUN/Cr-27/07.23 Lytes and LFTS unremarkable Alk phos-222 Albumin-3.3 10/24/19- WBC-6.11 Hgb/Hct-14.2/41.8 Plts-121 ANC-3.78 BUN/Cr-1.28 Lytes and LFTS unremarkable Alk phos-156 Albumin-3.5 10/05/19- WBC-9.8 Hgb/Hct-15.4/47.3 Plt-194 ANC-7.14 K+-4.5 BUN/Cr-141.17 Ca-9.6 Albumin-4.4 Imagin06/30/2022 CT chest abdomen pelvis with contrast: Impression. [...] with diagnosis of muscular invasive bladder cancer. [id number] Mr. 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
--- OUTSIDE RECORDS SUMMARY | 2024-08-15 01:32 | XMS_ITS | Encounter Summary ---
Author Organization [facility] [place] [address] Care Team Providers Care Business Rules Analyst Name Role Phone Subhash Dowling MD Primary Care Provider [phone] Reason for Visit * Reason Onset Date Comments Other 05/30/2020 transportation Encounter Details Date Type Department Care Team (Late st Contact Info) Description 05/30/2020 Telephone Hematology/Oncology at [address] [phone] Nadia Mueller MSW OFFICE OF CARE MANAGEMENT Other (transportation) Social [...] Telephone Encounter - Nadia Mueller MSW - 05/30/2020 1:03 PM EST Informed by Denise Lamb RN that pt has an appointment on 06-04-[address] Hurley at [facility] that friend/heidibecky CasanovaKetty set up his transportation TC pt to confirm and look ahead at some upcoming appointments. Spoke to pt and then to friend Subhash. Julian and Subhash are aware of the appointment next week with Dr. Hurley. LAUNDRY PRICING CLERK agreed to follow up in 2 weeks to make sure plans in place for his appointment on 07-01-20 at [facility] with [place] Hawkins. Due to mileage a physician referral form will need to be completed for that trip. Subhash indicated pt was doing fairly well at home and Subhash continues to help out as he can. Will follow up with pt after first of next month to confirm plans in place for his trip to . documented in this encounter Plan of Treatment Upcoming Encounters Date Type Department Care Team (Late st Contact Info) Description 08/15/2024 11:30 AM EST Office Visit Hematology/Oncology at [address] [phone] Chanelle Kim, [facility] [place] [address] Bee Curry, [facility] [place] [address] documented as of this encounter Visit Diagnoses Not on filedocumented in this encounter Care Teams Business Rules Analyst Relationship Specialty Start Date End Date Subhash Dowling MD [address] [place] [address] PCP - General 06/03/10 documented as of this encounter
--- OUTSIDE RECORDS SUMMARY | 2024-08-15 01:32 | XMS_ITS | Encounter Summary ---
Author Organization [facility] [place] [address] Care Team Providers Care Production Designer Name Role Phone Subhash Dowling MD Primary Care Provider [phone] Reason for Visit * Reason Onset Date Comments Other 07/18/2020 transportation p nadir review Encounter Details Date Type Department Care Team (Late st Contact Info) Description 07/18/2020 Telephone Hematology/Oncology at [address] [phone] Nadia Mueller MSW OFFICE OF [...] Telephone Encounter - Nadia Mueller MSW - 07/18/2020 8:18 AM EST Transportation Plan Review Transportation service provider: LENA @ [phone] Person coordinating transportation: Nadia Mueller, @ [phone] Transportation request submitted to service provider: for 07-29-20 to [facility] and 08-06-20 to [facility] Reviewed/matched transportation request with appointment schedule: yes Patient has contact information to transportation provider: yes Actions taken today: none documented in this encounter Plan of Treatment Upcoming Encounters Date Type Department Care Team (Late st Contact Info) Description 08/15/2024 11:30 AM EST Office Visit Hematology/Oncology at [address] [phone] Chanelle Kim [facility] [place] [address] Bee Curry [facility] [place] [address] documented as of this encounter Visit Diagnoses Not on filedocumented in this encounter Care Teams Production Designer Relationship Specialty Start Date End Date Subhash Dowling MD [address] [place] [id number] PCP - General 06/03/10 documented as of this encounter
--- OUTSIDE RECORDS SUMMARY | 2024-08-15 01:32 | XMS_ITS | Encounter Summary ---
Author Organization [facility] [place] [address] Care Team Providers Care Packing And Stamping Machine Operator Name Role Phone Subhash Dowling MD Primary Care Provider [phone] Reason for Visit * Reason Onset Date Comments Tobacco/smoking Cessation 06/28/2020 left m essage. Encounter Details Date Type Department Care Team (Late Contact Info) Description 06/28/2020 Telephone [place] [address] Ema Lay Tobacco/smoking Cessation (left message.) Social History Tobacco Use Types Packs/Day Years [...] 11:30 AM EST Office Visit Hematology/Oncology at [address] [phone] Chanelle Kim TRIMMING [facility] [place] [address] Bee Curry [facility] [place] [address] documented as of this encounter Visit Diagnoses Not on filedocumented in this encounter Care Teams Packing And Stamping Machine Operator Relationship Specialty Start Date End Date Subhash Dowling MD [address] [address] PCP - General 06/03/10 documented as of this encounter
--- OUTSIDE RECORDS SUMMARY | 2024-08-15 01:32 | XMS_ITS | Encounter Summary ---
Author [facility] [place] [address] Care Team Providers Care Cab Station Attendant Name Role Phone Subhash Dowling MD Primary Care Provider [phone] Reason for Visit * Reason Onset Date Comments Other 08/01/2020 transportation p nadir review Encounter Details Date Type Department Care Team (Late st Contact Info) Description 08/01/2020 Telephone Hematology/Oncology at [address] [phone] Nadia Mueller MSW OFFICE OF [...] Telephone Encounter - Nadia Mueller MSW - 08/01/2020 9:03 AM EST Transportation Plan Review Transportation service provider: LENA @ [phone] Person coordinating transportation: Nadia Mueller, @ [phone] Transportation request submitted to service provider: for 08-06-20 appointment at [facility] Reviewed/matched transportation request with appointment schedule: yes Patient has contact information to transportation provider: yes Actions taken today: sent message to [facility] to confirm his rides for 08-06-20 documented in this encounter Plan of Treatment Upcoming Encounters Date Type Department Care Team (Late st Contact Info) Description 08/15/2024 11:30 AM EST Office Visit Hematology/Oncology at [address] [phone] Chanelle Kim, [facility] [place] [address] Bee Curry [facility] [place] [address] documented as of this encounter Visit Diagnoses Not on filedocumented in this encounter Care Teams Cab Station Attendant Relationship Specialty Start Date End Date Subhash Dowling MD [address] [place] [id number] PCP - General 06/03/10 documented as of this encounter
--- OUTSIDE RECORDS SUMMARY | 2024-08-15 01:32 | XMS_ITS | Encounter Summary ---
[place] [address] Care Team Providers Care Welding Estimator Name Role Phone Subhash Dowling MD Primary Care Provider [phone] Encounter Details Date Type Department Care Team (Late st Contact Info) Description 03/07/2020 Telephone [place] [phone] Rehan Rodriguez Social History Tobacco Use Types Packs/Day Years [...] encounter Miscellaneous Notes * Telephone Encounter - Rehan Rodriguez - 03/07/2020 4:55 PM EDT Left message for Ketty asked to call back to schedule repeat procedure in June for Gt. 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 York on 03/06/20 documented in this encounter Plan of Treatment Upcoming Encounters Date Type Department Care Team (Late st Contact Info) Description 08/15/2024 11:30 AM EST Office Visit Hematology/Oncology at [address] [phone] Chanelle Kim, [facility] [place] [address] Bee Curry, [facility] [address] documented as of this encounter Visit Diagnoses Not on filedocumented in this encounter Care Teams Welding Estimator Relationship Specialty Start Date End Date Subhash Dowling MD [address] [place] [address] PCP - General 06/03/10 documented as of this encounter
--- OUTSIDE RECORDS SUMMARY | 2024-08-15 01:32 | XMS_ITS | Encounter Summary ---
Author Organization [facility] Address [facility] [place] [address] Care Team Providers Care Wire Steward Name Role Phone Subhash Dowling MD Primary Care Provider [phone] Encounter Details Date Type Department Care Team (Late st Contact Info) Description 03/22/2020 1:30 PM EDT Office [place] [address] John Hooper MD [facility] [place] [address] PAD (peripheral artery disease) Social History Tobacco Use Types Packs/Day Years [...] Sign Reading Time Taken Comments Blood Pressure 84/61 03/22/2020 1:42 PM EDT Pulse 82 03/22/2020 1:42 PM EDT Temperature - - Respiratory Rate - - Oxygen Saturation - - Inhaled Oxygen Concentration - - Weight - - Height - - Body Mass Index - - documented in this encounter Progress Notes * James Hong MD - 03/22/2020 1:30 PM EDT Vascular Surgery Consultation ?? Reason for Visit: Small-appearing right external iliac artery intraoperatively during urologic surgery ?? History of Present Illness: Gt Aguilar is a 69 y.o. male current smoker with a PMH of asthma, HTN, BLE claudication, HLD, and bladder cancer who was [place] [facility] [place] for high-grade urothelial carcinoma. During this admission, he underwent cystectomy with ileal conduit creation andlymph node dissection, with liver biopsy and lysis of adhesions. Vascular Surgery was consulted intraoperatively for a small-appearing right external iliac artery. Patient notes right calf pain for the past several months that is worsened by walking but improved with rest. He reports short-distance claudication which is not yet lifestyle-limiting, but bothersome. Patient reports no history of vascular interventions though medical record documents iliac endarterectomy for which further operative notes are not available. Patient smokes 2 ppd for the past 50 years. On ASA and atorvastatin. Denies rest pain or tissue loss. Prior Vascular Hx: none Atherosclerotic Risk Factors: (N) DM (Y) HTN (Y) Hyperlipidemia (current) Tobacco (N) CVA ?? Cardiovascular History: (N) Previous NV (N) Angina (N) CHF (N) Arrhythmia (N) PAD Problem List: Patient Active Problem List Diagnosis ??? Severe protein-calorie malnutrition Overview Note: >5% weight loss in 1 month and Moderate lean muscle loss is consistent with severe protein-calorie malnutrition in the setting of acute illness or injury (Brandy et al, JPEN J Parenteral Enteral Nutr. 2012 November; 36(3): 273-83) ??? Tobacco use disorder ??? Bladder cancer ??? HTN (hypertension) ??? PVD (peripheral vascular disease) Overview Note: Hx aortoiliac endarterectomy. ??? Alcohol abuse ??? Smokes 2 packs of cigarettes per day ??? HLD (hyperlipidemia) ??? COPD, moderate ??? Weight loss, abnormal ??? Limited literacy ??? Port-A-Cath in place ??? Ostomy nurse consultation ??? 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 Malignant neoplasm of overlapping sites of bladder Review of Systems: A 10-point review of systems including cardiac, pulmonary, gastrointestinal, andgenitourinary was negative except as noted in HPI. Social Hx: Currently staying in [facility] in [place], [place]. Currently smokes 2 packs per day of cigarettes. ?? Family Hx: Negative for clotting and bleeding disorders. Medications: Current Outpatient Medications on File Prior to Visit Medication Sig Dispense Refill ??? dronabinoL (Marinol) 2.5 mg Capsule Take 2.5 mg by mouth 2 times daily (before meals). ??? fluconazole (Diflucan) 100 mg Tablet Take 100 mg by mouth daily. ??? acetaminophen (Tylenol) 500 mg Tablet Take 2 tablets by mouth every 6 hours as needed for Pain.30 tablet 1 ??? calcium carbonate (Tums) 200 mg calcium (500 mg) Tablet, Chewable Take 2 tablets by mouth every6 hours as needed for Heartburn. ??? ergocalciferoL, vitamin D2, (vitamin D2) 200 mcg/mL (8,000 unit/mL) Drops 6.25 mLs by Per G Tube route once a week. ??? melatonin 3 mg Tablet Take 2 tablets by mouth nightly. ??? miconazole nitrate (REMEDY PHYTOPLEX) 2 % Ointment Apply BID to scrotum. ??? pantoprazole DR (Protonix) [address] for susp in Packet 1 packet by Per G Tube route 2 times daily. ??? sucralfate (Carafate) 100 mg/mL Suspension Take 10 mLs by mouth 4 times daily. ??? albuterol 90 mcg/actuation HFA Aerosol Inhaler Inhale 2 puffs into the lungs every 4 hours as needed for Wheezing. Use with spacer ??? aspirin EC 81 mg Tablet, Delayed Release (E.C.) Take 81 mg by mouth daily. ??? atorvastatin (Lipitor) 20 mg Tablet Take 20 mg by mouth daily. ??? varenicline (Chantix) 1 mg Tablet Take 1 tablet by mouth 2 times daily. (Patient not taking: Reported on 03/22/2020) ??? methylphenidate (Ritalin) 5 mg Tablet Take 2.5 tablets by mouth 2 times daily. OK to crush and give via Gtube. (Patient not taking: Reported on 03/22/2020) 150 tablet 0 ??? mirtazapine (REMERON) 7.5 mg Tablet Take 1 tablet by mouth nightly. (Patient not taking: Reported on 03/22/2020) ??? metoprolol succinate XL (Toprol-XL) 25 mg Tablet Sustained Release 24 hr Take 1 tablet by mouthdaily. (Patient not taking: Reported on 03/22/2020) 90 tablet 3 No current facility-administered medications on file prior to visit. Allergies: Allergies Allergen Reactions ??? Wellbutrin [Bupropion Hcl] Other (See Comments) Unknown on pt's chart from outside facility Physical Exam: GEN: Alert and appears stated age. Cooperative. In NAD. HEENT: Normocephalic and atraumatic. CV: RRR. S1/S2 present. Pulm: Clear to auscultation bilaterally. Abd: No palpable aortic pulse or abdominal mass. Soft, non-distended, non-tender to palpation. Skin: Color, texture, turgor normal. No rashes or lesions. Neuro: No gross sensory or motor abnormality. Extremities: RLE: No edema. Skin warm and pale. No tissue loss. Weakly palpable femoral pulse. LLE: No edema. Skin warm and pale. No tissue loss. Palpable femoral pulse. Studies: KAMAR, legs, ??multiple levels (02/14/2020) Findings: ?? Right ?Pressure (mm Hg) ?? KAMAR ??Waveform ? Common Femoral Artery ?Monophasic ?? Popliteal Artery ? Monophasic ?? Dorsalis Pedis (Ankle) Artery ?31 ?0.36 ??Monophasic ?? Posterior Tibial (Ankle) Artery ??26 ?0.30 ??Monophasic ? Left ? Pressure (mm Hg) ?? KAMAR ??Waveform ? Brachial Artery ?86 ? Common Femoral Artery ?Rice- Biphasic ?? Popliteal Artery ? Rice-Biphasic ?? Dorsalis Pedis (Ankle) Artery ?61 ?0.71 ??Rice- Biphasic ?? Posterior Tibial (Ankle) Artery ??73 ?0.85 ??Rice-Biphasic ? Interpretation: ?? RIGHT: Moderately severe lower extremity arterial occlusive disease. Findings are consistent with aortoiliac disease. ?? LEFT: Mild lower extremity arterial occlusive disease. Findings are consistent with aortoiliac disease. ?? Comment: The RIGHT brachial pressure was not obtained due to right arm IV's. Assessment and Plan: Gt Aguilar a 69 y.o. male current smoker with a PMH of asthma, HTN, BLE claudication, HLD, and bladder cancer who was admitted to [facility] seen as a consultation by Urology for asmall-appearing right external iliac artery. ABIs performed in clinic in February 2020 are decreased on the right at 0.36. Patient was scheduled to undergo CT angiogram of the aorta with lower extremity runoff today, which could not be completed due to inadequate IV access. Patient was examined and was not noted to have tissue loss of wounds on either foot. He does appearto be symptomatic based on reports of claudication but it is not lifestyle-limiting at this time, and he denies rest pain. He is currently at [facility] in [place], [place] with plans to return home. He is already on optimal medical management with aspirin and high-intensity statin. From a vascular standpoint, there is no acute need for intervention and patient should return to clinic if new wounds develop on the feet or claudication becomes lifestyle-limiting. - No vascular follow-up needed James Hong MD, PGY-1 Vascular Surgery 03/22/20 I saw and evaluated the patient in clinic along with the resident. I agree with the resident's findings a plan. John Hooper MD documented in this encounter Plan of Treatment Upcoming Encounters Date Type Department Care Team (Late st Contact Info) Description 08/15/2024 11:30 AM EST Office Visit Hematology/Oncology at [address] [phone] Chanelle Kim, [facility] [place] [address] Bee Curry [facility] [place] [address] documented as of this encounter Visit Diagnoses Diagnosis PAD (peripheral artery disease) Peripheral vascular disease, unspecified documented in this encounter Care Teams Wire Steward Relationship Specialty Start Date End Date Subhash Dowling MD [address] [place] [address] PCP - General 06/03/10 documented as of this encounter
--- OUTSIDE RECORDS SUMMARY | 2024-08-15 01:32 | XMS_ITS | Encounter Summary ---
Author Organization [facility] Address [facility] [place] [address] Care Team Providers Care Payroll Administrator Name Role Phone Subhash Dowling MD Primary Care Provider [phone] Encounter Details Date Type Department Care Team (Late st Contact Info) Description 03/25/2020 [place] [phone] Stephan Armstrong MD [facility] [place] [address] Social History Tobacco Use Types Packs/Day Years [...] encounter Miscellaneous Notes * Telephone Encounter - Gail Conley Tito - 03/25/2020 12:55 PM EDT from [facility] in [place], [place] calls regarding patient. States they have been unable to get labs drawn from him, he has been too dehydrated. She calls hoping to have CBC, CMP and Magnesium Levels drawn here with and the reports faxed to them. She has updated information she wants to pass along: ~His Urostomy was last change 03/19/20 ~He has some skin breakdown on his stoma at 3:00, they have been using stoma powder and barrier wipes on it. They are looking for advisement on how to treat this. ~He is not received g-tube feedings as he is refusing due to extreme diarrhea and abdominal pain. ~they have been pushing house supplements but he is refusing these ~ He isn't eating much, maybe a few bites here and there. ~ She is also wondering how much the patient has been informed of his condition. Does he know how far the bench lathe operator has spread. She say the won't talk much to them. He doesn't really have anyone (family orfriends) Please fax information regarding today's appt to . documented in this encounter Plan of Treatment Upcoming Encounters Date Type Department Care Team (Late st Contact Info) Description 08/15/2024 11:30 AM EST Office Visit Hematology/Oncology at [address] [phone] Chanelle Kim, [facility] [place] [address] Bee Curry, [facility] [place] [address] documented as of this encounter Visit Diagnoses Not on filedocumented in this encounter Care Teams Payroll Administrator Relationship Specialty Start Date End Date Subhash Dowling MD [address] [place] [id number] PCP - General 06/03/10 documented as of this encounter
--- OUTSIDE RECORDS SUMMARY | 2024-08-15 01:32 | XMS_ITS | Encounter Summary ---
Author Organization [place] [address] Care Team Providers Care District Branch Manager Name Role Phone Subhash Dowling MD Primary Care Provider [phone] Reason for Visit * Reason Onset Date Comments Other 06/13/2020 transportation p nadir review Encounter Details Date Type Department Care Team (Late st Contact Info) Description 06/13/2020 Telephone Hematology/Oncology at [address] [phone] Nadia Mueller MSW OFFICE OF [...] Telephone Encounter - Nadia Mueller MSW - 06/13/2020 8:44 AM EST TC with adi Hdez/[facility] coordinator, re arranging pt's upcoming ride to [facility] [id number]. Ketty asked OVEN LABORER to do that due to need for a hysician referral form for that trip due to the distance. OVEN LABORER will contact [facility] and make the request next week. Transportation Plan Review Transportation service provider: LENA @ [phone] Person coordinating transportation: Nadia Mueller, @ [phone] or Ketty Transportation request submitted to service provider: will request ride for [facility] next week. Reviewed/matched transportation request with appointment schedule: Patient has contact information to transportation provider: yes Actions taken today: TC with Ketty to coordinate rides documented in this encounter Plan of Treatment Upcoming Encounters Date Type Department Care Team (Late st Contact Info) Description 08/15/2024 11:30 AM EST Office Visit Hematology/Oncology at [address] [phone] Chanelle Kim, [facility] [place] [address] Bee Curry, [facility] [place] [address] documented as of this encounter Visit Diagnoses Not on filedocumented in this encounter Care Teams District Branch Manager Relationship Specialty Start Date End Date Subhash Dowling MD [address] [place] [phone] PCP - General 06/03/10 documented as of this encounter
--- OUTSIDE RECORDS SUMMARY | 2024-08-15 01:32 | XMS_ITS | Encounter Summary ---
Author Organization [facility] [place] [address] Care Team Providers Care Naphthalene Still Operator Name Role Phone Subhash Dowling MD Primary Care Provider Encounter Details Date Type Department Care Team (Late Contact Info) Description 08/02/2020 1:35 PM EST Ancillary Procedure Radiology Library at [facility] [place] [address] Subhash Dowling MD [address] [place] [address] Social History Tobacco Use Types Packs/Day Years [...] 11:30 AM EST Office Visit Hematology/Oncology at [address] [phone] Chanelle Kim [facility] [place] [address] Bee Curry [facility] [place] [address] documented as of this encounter Procedures Procedure Name Priority Date/Time Associated Diagnosis Comments FILM LIBRARY STORAGE ONLY CT CHEST ABDOMEN PELVIS Routine 08/02/2020 1:30 PM EST documented in this encounter Results * Film Library- Storage Only CT Chest Abdomen Pelvis (08/02/2020 1:30 PM EST) Narrative [facility] - 08/02/2020 1:30 PM EST This exam is auto-finalizing. It's purpose is for storage only. Subhash Dowling MD IMG FILM LIBRARY ORD ERABLES Performing Organization Address City/State/[facility] Co de Phone Number [place], [place] documented in this encounter Visit Diagnoses Not on filedocumented in this encounter Care Teams Naphthalene Still Operator Relationship Specialty Start Date End Date Subhash Dowling MD [address] [place] [id number] PCP - General 06/03/10 documented as of this encounter
--- OUTSIDE RECORDS SUMMARY | 2024-08-15 01:32 | XMS_ITS | Encounter Summary ---
Author Organization [facility] [place] [address] Care Team Providers Care Lot Boss Name Role Phone Subhash Dowling MD Primary Care Provider [phone] Encounter Details Date Type Department Care Team (Latest Contact Info) Description 03/25/2020 1:40 PM EDT Laboratory Appointment Lab [address] [place] [id number] Malignant neoplasm of urinary bladder, unspecified site [...] AM EST Office Visit Hematology/Oncology at [address] [phone] Chanelle Kim [facility] [place] [address] Bee Curry [facility] [place] [address] documented as of this encounter Procedures Procedure Name Priority Date/Time Associated Diagnosis Comments HEMOGRAM Routine 03/25/2020 1:27 PM EDT Malignant neoplasm of urinary bladder, unspecified site DIFFERENTIAL, AUTOMATED Routine 03/25/2020 1:27 PM EDT Malignant neoplasm of urinary bladder, unspecified site HC CBC,PLT & AUTO DIFF Routine 0 1:27 PM EDT Malignant neoplasm of urinary bladder, unspecified site COMPREHENSIVE METABOLIC PANEL Routine 03/25/2020 1:27 PM EDT Malignant neoplasm of urinary bladder, unspecified site documented in this encounter Results * (ABNORMAL) Differential, Automated (03/25/2020 1:27 PM EDT) Neutrophil % 70.2 % [facility] Neutrophil Absolute 6.50(H) 1.70 - 6.10 x10(3)/mc L [facility] Lymph % 18.6 % [facility] Lymphocytes Abs 1.7 0.9 - 3.2 x10(3)/mc L [facility] Monocyte % 7.7 % [facility] Monocyte Abs 0.7 0.3 - 0.9 x10(3)/mc L [facility] Eos % 1.9 % [facility] Eosinophils Abs 0.2 0.0 - 0.4 x10(3)/mc L [facility] Basophil % 1.0 % [facility] Baso Absolute 0.1 0.0 - 0.1 x10(3)/mc L [facility] Immature Gran % 0.60 % [facility] Comment: Immature granulocytes(IG's)percentage and absolute count will include metamyelocytes, myelocytes, and promyelocytes. Blood smears from CBCs yielding IG's will be scanned manually for concordance. If this scan disagrees with the automated IG or if promyelocytes are noted, a manual differential will be performed. Immature Gran Absolute 0.06(H) 0.00 - 0.04 x10(3)/mc L [facility] Blood specimen (specimen) 03/25/2020 1:27 PM EDT 03/25/2020 1:51 PM EDT Narrative Resulting Agency Comment Spec In Lab Roselia WHITFIELD HEMATOLOGY ORDERABLE S [facility] [place] [address] * (ABNORMAL) Hemogram (03/25/2020 1:27 PM EDT) White Blood Cell 9.3 4.0 - 9.5 x10(3)/mc L [facility] Red Blood Cell 3.46(L) 4.58 - 5.54 x10(6)/mc L [facility] Hemoglobin 10.7(L) 13.7 - 16.5 gm/dL [facility] Hematocrit 33.9(L) 40.5 - 48.5 % [facility] Mean Cell Volume 98.0(H) 82.9 - 93.1 fL [facility] Mean Cell Hemoglobin 30.9 27.5 - 32.1 pg [facility] Mean Cell Hemoglobin Concentration 31.6(L) 32.0 - 35.7 gm/dL [facility] Platelet 238 145 - 357 x10(3)/mc L [facility] RDW Standard Deviation 52.7(H) 36.0 - 45.0 [facility] RDW coefficient of variation 14.7(H) 11.4 - 13.8 % [facility] Mean Platelet Volume 9.9 7.6 - 12.9 fL [facility] NRBC% auto 0.0 % [facility] NRBC Absolute 0.000 0.000 - 0.000 x10(3)/mc L [facility] Blood specimen (specimen) 03/25/2020 1:27 PM EDT 03/25/2020 1:51 PM EDT Narrative Resulting Agency Comment Spec In Lab Roselia WHITFIELD HEMATOLOGY ORDERABLE S [facility] [place] [address] * (ABNORMAL) Comprehensive metabolic panel (non-fasting) (03/25/2020 1:27 PM EDT) Glucose 137 65 - 199 mg/dL [facility] Comment:Diabetes: >=200 mg/d L plus symptoms Blood Urea Nitrogen 44(H) 10 - 20 mg/dL [facility] Creatinine 1.17 0.80 - 1.50 mg/dL [facility] Sodium 140 135 - 145 mmol/L [facility] Potassium 4.1 3.5 - 5.0 mmol/L [facility] Comment: Please note: ??Patients with WBC >100,000 may have falsely elevated Potassium levels. ??For accurate Potassium quantification in these patients send serum separator tube (gold top) for subsequent determinations. ??Contact the Clinical Chemistry Laboratory if there are any questions. Chloride 108(H) 98 - 107 mmol/L [facility] Carbon Dioxide 20(L) 22 - 31 mmol/L [facility] Anion Gap 12 5 - 15 mmol/L [facility] Calcium 9.2 8.5 - 10.5 mg/dL [facility] Protein, Total 6.9 6.1 - 8.0 gm/dL [facility] Albumin 3.6 3.2 - 5.2 gm/dL [facility] Aspartate Aminotransferase 21 0 - 39 unit/L [facility] Alanine Aminotransferase 37 0 - 55 unit/L [facility] Alkaline Phosphatase 176(H) 40 - 130 unit/L [facility] Bilirubin, Total <0.2(L) 0.2 - 1.3 mg/dL [facility] Est Glomerular Filtration Rate 64 >=60 mL/min/1. 73 m?? [facility] Comment: The eGFR was calculated using the CKD-EPI equation. As with all creatinine based estimates of kidney function, eGFR values calculated with the CKD-EPI equation are not accurate in patients with acute kidney failure, extremes of body mass or the acutely ill. http://[employer]/DHnkf eGFR 74 >=60 mL/min/1. 73 m?? [facility] Comment: The eGFR was calculated using the CKD-EPI equation. As with all creatinine based estimates of kidney function, eGFR values calculated with the CKD-EPI equation are not accurate in patients with acute kidney failure, extremes of body mass or the acutely ill. http://[employer]/[email or web address] Blood specimen (specimen) 03/25/2020 1:27 PM EDT 03/25/2020 1:51 PM EDT Narrative Resulting Agency Comment Spec In Lab Stephan Armstrong MD CHEMISTRY ORDERABLES [facility] [place] [address] documented in this encounter Visit Diagnoses Diagnosis Malignant neoplasm of urinary bladder, unspecified site documented in this encounter Care Teams Lot Boss Relationship Specialty Start Date End Date Subhash Dowling MD [address] [place] [id number] PCP - General 06/03/10 documented as of this encounter
--- OUTSIDE RECORDS SUMMARY | 2024-08-15 01:32 | XMS_ITS | Encounter Summary ---
Author Organization [facility] Address [facility] [place] [address] Care Team Providers Care Volcanology Professor Name Role Phone Subhash Dowling MD Primary Care Provider [phone] Encounter Details Date Type Department Care Team (Late st Contact Info) Description 04/08/2020 2:00 PM EDT [place] [address] Stephan Armstrong MD [facility] [place] [address] Malignant neoplasm of urinary bladder, unspecified site [...] Sign Reading Time Taken Comments Blood Pressure 101/59 04/08/2020 1:53 PM EDT Pulse 82 04/08/2020 1:53 PM EDT Temperature 36.9 ??C (98.4 ??F) 04/08/2020 1:53 PM ED T Respiratory Rate - - Oxygen Saturation 100% 04/08/2020 1:53 PM EDT Inhaled Oxygen Concentration - - Weight - - Height 167.6 cm (5' 6) 04/08/2020 1:53 PM EDT Body Mass Index - - documented in this encounter Progress Notes * Sue RichardayArmandoRachana, CRIPPLE CHASER - 04/08/2020 2:00 PM EDT Patient Name: Gt Aguilar Date of Service: 04/08/2020 Primary Care Provider: Subhash Dowling MD Reason for Visit: Gt Aguilar is a 69 y.o. male who on 02/13/2020 had a cystoprostatectomy +ileal conduit for a [id number] bladder cancer following 4 cycles of Knobel Cisplat. All surgical margins were negative. None of 26 removed nodes showed evidence of cancer. Following the surgery he had a prolonged hospitalization because of multiple issues. From his 02/12 to 03/07 hospitalization He tolerated surgery well and was tranferred from the PACU to the general floor in good condition afew hours after surgery. Patient's hospital course was significant for the following issues: ?? #Acute blood loss anemia in setting of anemia of chronic disease: Received 2 units pRBCs on 02/14 ?? #Diarrhea - C. Diff screen on 02/15 was negative. 02/17 stool culture positive for campylobacter and cryptosporidium. ID and GI were consulted. Flexiseal collection system was used and later discontinued. Treated with 14 days each of azithromycin and nitazoxanide. Completed therapy on day of discharge.Frequency and volume of stool normalized. Stool still liquid and with intermittent fecal incontinence. ?? #Severe protein calorie malnutrition - Pt had TPN starting on 02/18. G-tube placed in IR on 02/27 fortube feedings as patient was not taking PO. Nutrition was consulted, tube feeds transitioned to bolus feeds 5x daily by time of discharge. Patient was started on Marinol as an appetite stimulant. ?? #Esophagitis - patient was seen by GI early in stay for GERD complaints. PPI was increased to BID. Pt continued to report pain and trouble swallowing. EGD on 03/06 revealed esophagitis, biopsies were taken, and carafate was prescribed. ?? #Depression NOS - patient was not communicative or motivated to walk or engage with treatment. He was seen first by the Behavioral Intervention Team, and then had a formal Psychiatry consult. Methylphenidate was titrated to 12.5 mg BID and mirtazapine was added. A titration plan has been provided by Psych for increasing the mirtazapine as needed. In addition, Vitamin D deficiency was addressed and melatonin was prescribed to help with sleep. Thyroid studies, folate and B12 levels were found to be normal. ?? He remained afebrile, with stable vital signs throughout his hospital stay. He worked with ostomy nurses to learn how to care for his new urostomy and participated actively in this learning but stillrequired some assistance. Stents, irvin and DARYN drain were all removed during hospital stay. Today, on POD# 23, he met all criteria for discharge to rehab: his pain was well controlled with medications by mouth, he was tolerating tube feeds, was voiding via urostomy without difficulties, and was up and ambulating without complications. He was deemed safe for discharge with follow up in 1-[address] Armstrong. After discharge: Call from [facility] 03/25/2020: from [facility] in [place], [place] regarding patient. States they have been unable to get labs drawn from him, he has been too dehydrated. She calls hoping to have CBC, CMP and Magnesium Levels drawn here with and the reports faxed to them. She has updated informationshe wants to pass along: ~His Urostomy was [...] condition. Does he know how far the tool designer has spread. She say the won't talk much to them. He doesn't really have anyone (family orfriends) Recommendation 03/25/[address] Armstrong saw him that same day: Stool for O & P, Restart tube feeds (smalller bolus initially), Use tincture of opium to cotrol diarrohea, Continue PT. 2 weeks with labs 04/08/2020: per nursing notes, weight is up, pt eating more and drinking better, walking with walkerwell and overall stronger. Getting gtube feeds twice daily, 240 cc each He presents today for follow up. He arrives on a stretcher. He feels a lot better than 2 weeks ago.He is up walking around, taking showers. He is still at rehab ([facility]). He has no diarrhea now, moving his bowels once daily. He drinks cran juice, water. 6 glasses of fluids at least per day. No urethral discharge He is changing the ostomy, with assistance, this is going ok. Nice clear urine. No pain. He still gets tube feeds, trying to get off of those. At 2 times per day now. He gets the tube feeds and meals at the same time (30 min difference). He is walking with a cane, per . Per meds, it does not appear he is on tincture of opium now. Examination: He looks good, answering questions appropriately with reasonable energy, laying flat on stretcher The abdomen is benign. The incisions are well healed. Stoma healthy with clear yellow urine discharge, ostomy in place and draining to leg bag. G-tube with dressing in place No penile swelling or urethral discharge. Labs: 03/25/2020 WCC 9.3, Hb 10.7, Plt 239, CL 108, Cr 1.17, eGFR 64, Alk 176 Has been elevated 04/08/2020: hgb 9.4 and hct 29.9. cre 0.93, GFR 85, LFTs normal, electrolytes normal Xrays: None Imp: [id number] bladder cancer sp 4 cycles of Knobel Cisplat chemotherapy. Protein Calorie manutrition Diarrhea-resolved Plan Continue PT as he has been Tube feeds continued twice daily (please move from meal time) then wean off over the next month as long as nutrition is adequate. epf in 1 month to see if the Gtube can be removed, then [address] ch/abd/pel and labs ~ 60% chance of being cured by the ananda + surgery. Discharge from [facility] when team feels he is ready We will send a note to Kalyani to see if she can work with social work/the fpc to help withsome of his financial/housing burdens. I called Mary Chiu, the nurse at [facility] in [place], [place], to see what his prognosis/discharge plan was. She states he is doin well, walking with a cane. Getting stronger, gaining weight and eating more. She states that he would like to go home with [facility], but needs to be off tube feedings totally. He is independent with gtube feedings. is not sure that he would be consistent with this at home. If he goes home, he will have [facility] with nursing support. states that he is not really changing the ostomy on his own, she has done it for him, and unless he started just with the last ostomy change, he has not done it yet independently. She will work with him on this in the next few weeks Next epf with [facility] on 05/24/2020, then a month later with cmp, CT chest/abd/pel. This is a joint note in which the patient was seen by both Rachana Mojica APRN and MAHESH Brooks. Parts of which were written by Dr. Stephan Armstrong and others by Rachana Mojica APRN. Rachana Mojica APRN: history and physical examination/documentation Reviewed labs and imaging with MAHESH Arteaga : Reviewed he history and physical examination and confirmed the pertinent findings Reviewed the labs and imaging Contributed to the Impression and Plan Rachana Mojica APRN and MAHESH Brooks documented in this encounter Plan of Treatment Upcoming Encounters Date Type Department Care Team (Late st Contact Info) Description 08/15/2024 11:30 AM EST Office Visit Hematology/Oncology at [address] [phone] Chanelle Kim APRN [facility] [place] [address] Bee Curry APRN [facility] [place] [address] documented as of this encounter Visit Diagnoses Diagnosis Malignant neoplasm of urinary bladder, unspecified site documented in this encounter Care Teams Volcanology Professor Relationship Specialty Start Date End Date Subhash Dowling MD [address] [place] [phone] PCP - General 06/03/10 documented as of this encounter
--- OUTSIDE RECORDS SUMMARY | 2024-08-15 01:32 | XMS_ITS | Encounter Summary ---
Author Organization [facility] [place] [address] Care Team Providers Care Lift Truck Mechanic Name Role Phone Subhash Dowling MD Primary Care Provider [phone] Encounter Details Date Type Department Care Team (Late st Contact Info) Description 03/18/2020 [place] [phone] Chato Hunter MD [facility] [place] [address] Social History Tobacco Use Types Packs/Day Years [...] encounter Miscellaneous Notes * Telephone Encounter - Chato Hunter MD - 03/18/2020 4:45 PM EDT [facility] [place] [place] to check on Mr. Aguilar. I couldn't get anyone clinical to speak with me on the phone regarding his status. I did call over to his house. His roommate said he was told that he would be a patient at [facility] for the next 3 weeks or so. He had no other information. Chato Hunter MD, MPH Urology, PGY-4 Consult Pager #[phone] 03/18/2020 documented in this encounter Plan of Treatment Upcoming Encounters Date Type Department Care Team (Late st Contact Info) Description 08/15/2024 11:30 AM EST Office Visit Hematology/Oncology at [address] [phone] Chanelle Kim, [facility] [place] [address] Bee Curry [facility] [place] [address] documented as of this encounter Visit Diagnoses Not on filedocumented in this encounter Care Teams Lift Truck Mechanic Relationship Specialty Start Date End Date Subhash Dowling MD [address] [place] [id number] PCP - General 06/03/10 documented as of this encounter
--- OUTSIDE RECORDS SUMMARY | 2024-08-15 01:32 | XMS_ITS | Encounter Summary ---
Author Organization [facility] [place] [address] Care Team Providers Care Indian Nanny Name Role Phone Subhash Dowling MD Primary Care Provider [phone] Encounter Details Date Type Department Care Team (Late Contact Info) Description 05/28/2020 Orders Only Hematology [place] [address] Tosha Muir Social History Tobacco Use Types Packs/Day Years [...] Upcoming Encounters Date Type Department Care Team ([facility] Contact Info) Description 08/15/2024 11:30 AM EST Office Visit Hematology/Oncology at [address] [phone] Chanelle Kim, [facility] [address] Bee Curry [facility] [address] documented as of this encounter Visit Diagnoses Not on filedocumented in this encounter Care Teams Indian Nanny Relationship Specialty Start Date End Date Subhash Dowling MD [address] [place] [phone] PCP - General 06/03/10 documented as of this encounter
--- OUTSIDE RECORDS SUMMARY | 2024-08-15 01:32 | XMS_ITS | Encounter Summary ---
Author Organization [facility] Address [facility] [place] [address] Care Team Providers Care Respiratory Equipment Assistant Name Role Phone Subhash Dowling MD Primary Care Provider [phone] Encounter Details Date Type Department Care Team (Late st Contact Info) Description 03/25/2020 2:40 PM EDT [place] [address] Stephan Armstrong MD [facility] [place] [address] Malignant neoplasm of urinary bladder, unspecified site (Primary Dx) Social History Tobacco Use Types Packs/Day Years [...] Sign Reading Time Taken Comments Blood Pressure 102/90 03/25/2020 2:36 PM EDT Pulse 91 03/25/2020 2:36 PM EDT Temperature 36.8 ??C (98.3 ??F) 03/25/2020 2:36 PM ED T Respiratory Rate 20 03/25/2020 2:36 PM EDT Oxygen Saturation 100% 03/25/2020 2:36 PM EDT Inhaled Oxygen Concentration - - Weight - - Height 167.6 cm (5' 6) 03/25/2020 2:36 PM EDT Body Mass Index - - documented in this encounter Progress Notes * Stephan Armstrong MD - 03/25/2020 2:40 PM EDT Patient Name: Gt Aguilar Date of Service: 03/25/2020 Primary Care Provider: Subhash Dowling MD Reason for Visit: Gt Aguilar is a 69 y.o. male who on 02/13/2020 had a cystoprostatectomy +ileal conduit for a [id number] bladder cancer following 4 cycles of [place] Cisplat.. All surgical margins were negative. None of [...] and participated actively in this learning but stillrequires some assistance. Stents, irvin and DARYN drain were all removed during hospital stay. Today, on POD# 23, he has met all criteria for discharge to rehab: his pain is well controlled with medications by mouth, he is tolerating tube feeds, is voiding via urostomy without difficulties, and is up and ambulating without complications. He has been deemed safe for discharge with follow up in 1-[address] Armstrong. Since discharge Call from [facility] from [facility] in [place], [place] calls regarding patient. States they have been unable to get labs drawn from him, he has been too dehydrated. She calls hoping to have CBC, CMP and Magnesium Levels drawn here with and the reports faxed to them. She has updated information she wants to pass along: ?? ~His Urostomy was last change 03/19/20 ?? ~He has some skin breakdown on his stoma at 3:00, they have been using stoma powder and barrier wipes on it. They are looking for advisement on how to treat this. ?? ~He is not received g-tube feedings as he is refusing due to extreme diarrhea and abdominal pain. ?? ~they have been pushing house supplements but he is refusing these ?? ~ He isn't eating much, maybe a few bites here and there. ?? ~ She is also wondering how much the patient has been informed of his condition. Does he know how far the pediatric speech therapist has spread. She say the won't talk much to them. He doesn't really have anyone (family orfriends) Today, he is his usual poorly communicative self. He answers questions, but without much detail or enthusiasm Sounds like he has some loose BM 3-4 x yesterday. He is eating poorly (as he did in hospita) and declining tube feeds. (Prior feeds Promote - 336cc bolus feed 5 times per day ). He is not walking much, to the bathroom with assistance. Examination: He looks The abdomen is benign. The incisions are well healed. Stoma healthy, one area of granulation tissue. Labs: 03/25/2020 WCC 9.3, Hb 10.7, Plt 239, CL 108, Cr 1.17, eGFR 64, Alk 176 Has been elevated Xrays: None Imp: [id number] bladder cancer sp 4 cycles of [place] Cisplat chemotherapy. Protein Calorie manutrition Diarrohea with tube feeds No acute issues Plan Stool for O & P Restart tube feeds (smalller bolus initially), Use tincture of opium to cotrol diarrohea Continue PT. 2 weeks with labs I addressed all these issues with him. If he can improve his nutrition we will likely get over thishump. If he is able to eat his termite exterminator helper prognosis is reasonable, with a ~ 60% chance of being cured by the ananda + surgery. I will see him in 2 weeks with labs. I will try and talk to his nurse and PCP today Stephan Armstrong documented in this encounter Plan of Treatment Upcoming Encounters Date Type Department Care Team (Late st Contact Info) Description 08/15/2024 11:30 AM EST Office Visit Hematology/Oncology at [address] [phone] Chanelle Kim [facility] [place] [address] Bee Curry [facility] [place] [address] documented as of this encounter Results * (ABNORMAL) Comprehensive metabolic panel (non-fasting) (04/08/2020 1:04 PM EDT) Glucose 102 65 - 199 mg/dL [facility] Comment:Diabetes: >=200 mg/d L plus symptoms Blood Urea Nitrogen 29(H) 10 - 20 mg/dL [facility] Creatinine 0.93 0.80 - 1.50 mg/dL [facility] Sodium 137 135 - 145 mmol/L [facility] Potassium 4.5 3.5 - 5.0 mmol/L [facility] Comment: Please note: ??Patients with WBC >100,000 may have falsely elevated Potassium levels. ??For accurate Potassium quantification in these patients send serum separator tube (gold top) for subsequent determinations. ??Contact the Clinical Chemistry Laboratory if there are any questions. Chloride 103 98 - 107 mmol/L [facility] Carbon Dioxide 24 22 - 31 mmol/L [facility] Anion Gap 10 5 - 15 mmol/L [facility] Calcium 9.0 8.5 - 10.5 mg/dL [facility] Protein, Total 6.1 6.1 - 8.0 gm/dL [facility] Albumin 3.6 3.2 - 5.2 gm/dL [facility] Aspartate Aminotransferase 19 0 - 39 unit/L [facility] Alanine Aminotransferase 54 0 - 55 unit/L [facility] Alkaline Phosphatase 118 40 - 130 unit/L [facility] Bilirubin, Total 0.2 0.2 - 1.3 mg/dL [facility] Est Glomerular Filtration Rate 85 >=60 mL/min/1. 73 m?? [facility] Comment: The eGFR was calculated using the CKD-EPI equation. As with all creatinine based estimates of kidney function, eGFR values calculated with the CKD-EPI equation are not accurate in patients with acute kidney failure, extremes of body mass or the acutely ill. [email or web address]/[facility]nkf eGFR 98 >=60 mL/min/1. 73 m?? [facility] Comment: The eGFR was calculated using the CKD-EPI equation. As with all creatinine based estimates of kidney function, eGFR values calculated with the CKD-EPI equation are not accurate in patients with acute kidney failure, extremes of body mass or the acutely ill. [email or web address] Blood specimen (specimen) 04/08/2020 1:04 PM EDT 04/08/2020 1:13 PM EDT Narrative Resulting Agency Comment Spec In Lab Stephan Armstrong MD CHEMISTRY ORDERABLES [facility] [place] [address] documented in this encounter Visit Diagnoses Diagnosis Malignant neoplasm of urinary bladder, unspecified site- Primary documented in this encounter Care Teams Respiratory Equipment Assistant Relationship Specialty Start Date End Date Subahsh Dowling MD [address] [place] [address] PCP - General 06/03/10 documented as of this encounter
--- OUTSIDE RECORDS SUMMARY | 2024-08-15 01:32 | XMS_ITS | Encounter Summary ---
Author Organization [facility] [place] [address] Care Team Providers Care Cooling Tower Operator Name Role Phone Subhash Dowling MD Primary Care Provider [phone] Reason for Visit * Reason Onset Date Comments Follow-up 05/28/2020 Encounter Details Date Type Department Care Team (Late Contact Info) Description 05/28/2020 Telephone Hematology/Oncology at [address] [phone] Denise Lamb RN Follow-up Social History Tobacco [...] Telephone Encounter - Denise Lamb RN - 05/28/2020 9:[address] Quiñones pt to be set up to follow up with Dr. Hurley as is geographically closer for pt ifhe has any urology issues. Dr. Hurley can see pt on 06/04 at 11 am. Pt agrees to go. Spoke with Ketty his case finishing machine adjuster who will set up a ride with RCT. documented in this encounter Plan of Treatment Upcoming Encounters Date Type Department Care Team (Late Contact Info) Description 08/15/2024 11:30 AM EST Office Visit Hematology/Oncology at [address] [phone] Chanelle Kim, [facility] [place] [address] Bee Curry [facility] [place] [address] documented as of this encounter Visit Diagnoses Not on filedocumented in this encounter Care Teams Cooling Tower Operator Relationship Specialty Start Date End Date Subhash Dowling MD [address] [place] [id number] PCP - General 06/03/10 documented as of this encounter
--- OUTSIDE RECORDS SUMMARY | 2024-08-15 01:32 | XMS_ITS | Encounter Summary ---
[place] [address] Care Team Providers Care Half Section Ironer Name Role Phone Subhash Dowling MD Primary Care Provider [phone] Encounter Details Date Type Department Care Team (Late Contact Info) Description 03/09/2020 [place] [address] Geovany Fish MD Social History Tobacco Use Types Packs/Day Years [...] encounter Miscellaneous Notes * Telephone Encounter - Geovany Fish MD - 03/09/2020 6:50 PM EDT Called Gt to check in. There was no answer. Left voicemail to call back. documented in this encounter Plan of Treatment Upcoming Encounters Date Type Department Care Team (Late Contact Info) Description 08/15/2024 11:30 AM EST Office Visit Hematology/Oncology at [address] [phone] Chanelle Kim APRN [facility] [place] [address] Bee Curry APRN [facility] [place] [address] documented as of this encounter Visit Diagnoses Not on filedocumented in this encounter Care Teams Half Section Ironer Relationship Specialty Start Date End Date Subhash Dowling MD [address] [place] [address] PCP - General 06/03/10 documented as of this encounter
--- OUTSIDE RECORDS SUMMARY | 2024-08-15 01:32 | XMS_ITS | Encounter Summary ---
Author Organization [facility] [place] [address] Care Team Providers Care Electrical Cad Technician Name Role Phone Subhash Dowling MD Primary Care Provider [phone] Reason for Visit * Reason Onset Date Comments Tobacco/smoking Cessation 07/02/2020 Encounter Details Date Type Department Care Team (Late Contact Info) Description 07/02/2020 Telephone [place] [address] Ema Lay Tobacco/smoking Cessation Social History Tobacco Use Types Packs/Day Years [...] AM EST Office Visit Hematology/Oncology at [address] [phone] [facility] [place] [address] [facility] [place] [address] documented as of this encounter Visit Diagnoses Not on filedocumented in this encounter Care Teams Electrical Cad Technician Relationship Specialty Start Date End Date Subhash Dowling MD [address] [place] [id number] PCP - General 06/03/10 documented as of this encounter
--- OUTSIDE RECORDS SUMMARY | 2024-08-15 01:32 | XMS_ITS | Encounter Summary ---
Author Organization [facility] [place] [address] Care Team Providers Care Swatch Clerk Name Role Phone Subhash Dowling MD Primary Care Provider [phone] Reason for Visit * Reason Onset Date Comments Other 07/09/2020 transportation p nadir review Encounter Details Date Type Department Care Team (Late st Contact Info) Description 07/09/2020 Telephone Hematology/Oncology at [address] [phone] Nadia Mueller MSW OFFICE OF CARE MANAGEMENT [...] Telephone Encounter - Nadia Mueller MSW - 07/09/2020 8:35 AM EST Transportation Plan Review Transportation service provider: LENA @ [phone] Person coordinating transportation:sahil Hdez or Nadia Mueller, @ [phone] Transportation request submitted to service provider: for 08-06-20 appointments Reviewed/matched transportation request with appointment schedule: yes Patient has contact information to transportation provider: yes Actions taken today: none documented in this encounter Plan of Treatment Upcoming Encounters Date Type Department Care Team (Late st Contact Info) Description 08/15/2024 11:30 AM EST Office Visit Hematology/Oncology at [address] [phone] Chanelle Kim, [facility] [place] [address] Bee Curry [facility] [place] [address] documented as of this encounter Visit Diagnoses Not on filedocumented in this encounter Care Teams Swatch Clerk Relationship Specialty Start Date End Date Subhash Dowling MD [address] [place] [address] PCP - General 06/03/10 documented as of this encounter
--- OUTSIDE RECORDS SUMMARY | 2024-08-15 01:32 | XMS_ITS | Encounter Summary ---
Author Organization [facility] Address [facility] [place] [address] Care Team Providers Care Waistband Setter Lockstitch Name Role Phone Subhash Dowling MD Primary Care Provider [phone] Encounter Details Date Type Department Care Team (Late st Contact Info) Description 08/06/2020 2:00 PM EST Office Visit Hematology/Oncology at [address] [phone] Aries Quiñones MD [facility] DR HEMATOLOGY [place] [address] Chanelle Kim APRN [facility] [place] [address] Malignant neoplasm of overlapping sites of bladder (Primary Dx); Malignant neoplasm of urinary bladder, unspecified site [...] Sign Reading Time Taken Comments Blood Pressure 124/77 08/06/2020 2:26 PM EST Pulse 88 08/06/2020 2:26 PM EST Temperature 37.7 ??C (99.8 ??F) 08/06/2020 2:26 PM ES T Respiratory Rate 16 08/06/2020 2:26 PM EST Oxygen Saturation 100% 08/06/2020 2:26 PM EST Inhaled Oxygen Concentration - - Weight 54.8 kg (120 lb 13 oz) 08/06/2020 2:26 PM EST Height 167.6 cm (5' 5.98) 08/06/2020 2:26 PM ES T Body Mass Index 19.51 08/06/2020 2:26 PM EST documented in this encounter Progress Notes * Aries Quiñones MD - 08/06/2020 2:00 PM EST Images from the original note were not included. Diagnosis: High-grade bladder cancer, [id number] CC: I feel fine . HPI:Gt Aguilar is 69 y[address] Dr[address] Hurley for a [...] Interval History:Mr. Aguilar returns to clinic in [facility] today for follow up of bladder cancer and discussion on restaging CT scan. 02/13/2020 had a cystoprostatectomy +ileal conduit. He had prolonged stay due to multiple problems. Today he is in clinic for follow-up maria eugenia he feels well. Denies any diarrhea. Denies any fevers, chills or signs of infection. Mr. Aguilar lives alone in [place], [place] and has little social support. He does have a [facility] coordinator Ketty Garcia who picks up his prescriptions and checks in on him. Overall he has done well with his yves atments. Appetite is good.Denies any nausea or vomiting. He is still smoking but has cut back to 1/2 pack a day. He has been on the Chantix for 2 weeks now. Denies any dysuria today. No hematuria. PMH: No interval changes since last visit GERD, hypertension, hypercholesterolemia, hernia, peripheral vascular disease, COPD, history of hernia repair, right hip fracture, Social History: Smoker 2 packs a day for total of more than 110 pack-year smoking history. Drinks 2-3 beers several times a week, sometimes he drinks hard liquor as well. He lives by himself. Used [employer] as a sha[employer] but he has been off work since at least 1991. Lives alone. He has 2 children but he is not in touch with them Family History: Noncontributory Allergies: Allergies Allergen Reactions ??? Wellbutrin [Bupropion Hcl] Other (See Comments) Unknown on pt's chart from outside facility Medications: Your Medications Accurate as of August 06, 2020 2:16 PM. If you have any questions, [...] 4 times daily. 1 g Refills: 0 varenicline 1 mg Tab Commonly known as: Chantix Take 1 tablet by mouth 2 times daily. 1 mg Refills: 0 Review of Systems: Constitutional: [...] throughout. Chest Wall: No tenderness or deformity. [facility] Heart: Regular rate and rhythm, S1, S2 normal, no murmur, rub or gallop Abdomen: Soft, non-tender, bowel sounds active all four quadrants, no masses, no organomegaly. There is no appreciable ascites Extremities: Extremities normal, atraumatic, no cyanosis or edema . R leg shorter than left leg. Pulses: 2+ and symmetric Skin: Skin color, texture, turgor normal, no rashes or lesions Lymph nodes: Cervical, supraclavicular, and axillary nodes normal Neurologic: Normal Vitals There were no vitals taken for this visit. Pathology: 02/13/2020 had a cystoprostatectomy +ileal conduit 07/31/2019 Urinary bladder, site not specified, mass, TURBT: - High grade urothelial carcinoma, invasive into muscularis propria and asuncion-muscular ??bundle adipose tissue. - Focal urothelial carcinoma in situ Labs: 07/29/2020 WBC 6.4, hemoglobin 14.3, platelet count 125, BUN 19, creatinine 1.1, calcium 9.3, [id number], total protein 6.7, albumin 4.0, TB 0.3 [...] Hgb/Hct-15.4/47.3 Plt-194 ANC-7.14 K+-4.5 BUN/Cr-14/1.17 Ca-9.6 Albumin-4.4 Imagin10/05/19- PET-IMPRESSION 1. A 5 cm FDG avid [...] a cystoprostatectomy +ileal conduit Mr. Aguilar is 69 years old gentleman with diagnosis of muscular [...] signs of some recurrence. We will ask forsecond reading. MINAL. I will see him back with blood [...] interested to quit Plan: 1. Observation 2. Follow up with urologist Dr. Armstrong as scheduled 3. Next visit in 3 months with CBC, [...] AM EST Office Visit Hematology/Oncology at [address] [phone] Chanelle Kim [facility] [place] [address] Bee Curry [facility] [place] [address] documented as of this encounter Results * Request For 2nd [...] report, please contact the number below. ? Narrative 08/06/2020 4:07 PM EST EXAMINATION: * [...] necessary): Chest, abdomen pelvis * ??Sending Institution [facility] * ??Date of exam [id number] * ??I believe a reinterpretation of this study will change clinical care? ??Yes. TECHNIQUE: CT of the chest, abdomen, and pelvis performed following the administration of intravenous contrast at [facility] on 08/02/2020 and submitted for reinterpretation. ??Helical CT of the chest, abdomen, and pelvis was performed with oral and intravenous contrast. ??Multiplanar reformats were performed in the sagittal and coronal planes. ??I am and doses of intravenous contrast was not recorded in the PACS system and submitted documentation. COMPARISON: PET/CT 01/15/2020. CT biopsy 01/31/2020. CT abdomen and pelvis 02/28/2019. FINDINGS: Air Conditioning Specialist Images: Noncontributory. Chest: Lungs and large airways: [...] necessary): Chest, abdomen pelvis * Sending Institution [facility] * Date of exam [id number] * I believe a reinterpretation of this study will change clinical care?Yes. TECHNIQUE: CT of the chest, abdomen, and pelvis performed following the administration of intravenous contrast at [facility] on08/02/2020 and submitted for reinterpretation. Helical CT of the chest, abdomen,and pelvis was performed with oral and intravenous contrast. Multiplanarreformats were performed in the sagittal and coronal planes. I am and doses of intravenous contrast was not recorded in the PACS system and submitted documentation. COMPARISON: PET/CT 01/15/2020. CT biopsy 01/31/2020. CT abdomen and pelvis 02/28/2019. FINDINGS: Air Conditioning Specialist Images: Noncontributory. Chest: Lungs and large airways: [...] this report, please contact the number below. Aries Quiñones MD IMG OUTSIDE INTERPRE TATION ORDERABLES documented in this encounter Visit Diagnoses Diagnosis Malignant neoplasm of overlapping sites of bladder- Primary Malignant neoplasm of other specified sites of bladder Malignant neoplasm of urinary bladder, unspecified site Malignant neoplasm of overlapping sites of bladder Malignant neoplasm of other specified sites of bladder documented in this encounter Care Teams Waistband Setter Lockstitch Relationship Specialty Start Date End Date Subahsh Dowling MD [address] [place] [id number] PCP - General 06/03/10 documented as of this encounter
--- OUTSIDE RECORDS SUMMARY | 2024-08-15 01:32 | XMS_ITS | Encounter Summary ---
Author Organization [facility] [place] [address] Care Team Providers Care Transit Mixer Operator Name Role Phone Subhash Dowling MD Primary Care Provider [phone] Encounter Details Date Type Department Care Team (Late Contact Info) Description 03/12/2020 Telephone [place] [phone] Billie Amaya Social History Tobacco Use Types Packs/Day Years [...] encounter Miscellaneous Notes * Telephone Encounter - Billie Amaya - 03/12/2020 11:19 AM EDT LVM x2 (Friends telephone as listed) Sent letter documented in this encounter Plan of Treatment Upcoming Encounters Date Type Department Care Team (Late Contact Info) Description 08/15/2024 11:30 AM EST Office Visit Hematology/Oncology at [address] [phone] Chanelle Kim APRN [facility] [place] [address] Bee Curry APRN [facility] [place] [address] documented as of this encounter Visit Diagnoses Not on filedocumented in this encounter Care Teams Transit Mixer Operator Relationship Specialty Start Date End Date Subhash Dowling MD [address] [place] [id number] PCP - General 06/03/10 documented as of this encounter
--- OUTSIDE RECORDS SUMMARY | 2024-08-15 01:32 | XMS_ITS | Encounter Summary ---
Author Organization [facility] [place] [address] Care Team Providers Care Foreman/Pile Driving And Erection Name Role Phone Subhash Dowling MD Primary Care Provider + [phone] Reason for Visit * Reason Onset Date Comments Other 07/03/2020 transportation Encounter Details Date Type Department Care Team (Late st Contact Info) Description 07/03/2020 Telephone Hematology/Oncology at [address] [phone] Nadia Mueller MSW OFFICE OF [...] Telephone Encounter - Nadia Mueller MSW - 07/03/2020 10:53 AM EST Request from Kalyani Farley RN, Nurse Navigator [facility] to set up rides for pt's appointment for labs and follow up visit with Dr. Pacheco on 08-06-20. TC pt re this and he agreed to have OUTCOMES SPECIALIST arrange transportaiton for him. Will E-mail this request to [facility] Lab @ 1:00; [facility] @ 2:00 and Home @ 2:45 pm. Pt also stated he is out of his supplies - bags, rings, tubes of stuff. He stated his bag is leaking and he is sitting there all wet. Pt indicated they are not coming any more and was not clear who that was. Pt asked OUTCOMES SPECIALIST to contact his friend Ketty to inquire about his supplies. OUTCOMES SPECIALIST called Wendy and left her a message requesting a call back. Informed Dora Steiner RN, Triage re thisalso. ADD: TC back from friend Ketty and she is aware of his supply issues. She reports pt's PCP officeis overseeing the supply issues. Reported a request went into [employer] and they should be sending out supplies for pt. Ketty thinks pt is changing his supplies to often. She has a different adhesive for him. She indicated the [facility] is not longer following pt. Will update Dora Steiner RNre this also. Informed pt has labs and scan scheduled for 07-29-20 at [facility] to arrive at 10 am and ready for home at2 pm. E mailed this request to [facility]. Cancelled his labs prior to his 08-06-20 appt at [facility] as was informed they can use lab results from [facility] visit. [facility] request for rides as follows 07-29-20 [facility] @10 am for labs and scan Home at 2:00 pm 08-06-20 [facility] @ 2:00 for provider visit Home at 2:45 pm documented in this encounter Plan of Treatment Upcoming Encounters Date Type Department Care Team (Late st Contact Info) Description 08/15/2024 11:30 AM EST Office Visit Hematology/Oncology at [address] [phone] Chanelle Kim APRN [facility] [place] [address] Bee Curry APRN [facility] [place] [address] documented as of this encounter Visit Diagnoses Not on filedocumented in this encounter Care Teams Foreman/Pile Driving And Erection Relationship Specialty Start Date End Date Subhash Dowling MD [address] [address] PCP - General 06/03/10 documented as of this encounter
--- OUTSIDE RECORDS SUMMARY | 2024-08-15 01:32 | XMS_ITS | Encounter Summary ---
Author Organization [facility] [place] [address] Care Team Providers Care Vehicle Fuel Systems Converter Name Role Phone Subhash Dowling MD Primary Care Provider [phone] Reason for Referral * Diagnostic Test (Routine) - Closed Specialty Diagnoses / Procedures Referred By Contac t Referred To Contact Radiology Diagnoses PVD (peripheral vascular disease) Procedures CT Angiogram Aortic Lower Extremity Runoff Laurence Rousseau MD [facility] [place] [address] [facility] [place] [address] Referral ID Status Reason Start Date Expiration Date V isits Requested Visits Authorized [id number] Closed Specialty Service Requested 02/14/2020 08/16/2021 1 1 Reason for Visit * Diagnostic Test (Routine) - Closed Specialty Diagnoses / Procedures Referred By Contac t Referred To Contact Radiology Diagnoses PVD (peripheral vascular disease) Procedures CT Angiogram Aortic Lower Extremity Runoff Laurence Rousseau MD [facility] [place] [address] [facility] [place] [address] Referral ID Status Reason Start Date Expiration Date V isits Requested Visits Authorized [id number] Closed Specialty Service Requested 02/14/2020 08/16/2021 1 1 Encounter Details Date Type Department Care Team (Latest Contact Info) Description 03/22/2020 11:55 AM EDT - 03/22/2020 11:59 PM EDT Hospital [place] [address] PVD (peripheral vascular disease) Discharge Disposition: Home Social History Tobacco Use Types Packs/Day Years [...] on file documented as of this encounter Medications at Time of Discharge [...] Tablet Take 20 mg by mouth daily. dronabinoL (Marinol) 2.5 mg Capsule Take 2.5 mg by mouth 2 times daily (before meals). 06/24/2021 fluconazole (Diflucan) 100 mg Tablet Take 100 mg by mouth daily. 06/24/2021 varenicline (Chantix) 1 mg Tablet Take 1 tablet by mouth 2 times daily. 03/06/2020 11/12/2020 calcium carbonate (Tums) 200 mg calcium (500 mg) Tablet, Chewable Take 2 tablets by mouth every 6 hours as needed for Heartburn. 03/06/2020 06/24/2021 ergocalciferoL, vitamin D2, (vitamin D2) 200 mcg/mL (8,000 unit/mL) Drops 6.25 mLs by Per G Tube route once a week. 03/07/2020 06/24/2021 melatonin 3 mg Tablet Take 2 tablets by mouth nightly. 03/06/2020 06/24/2021 methylphenidate (Ritalin) 5 mg Tablet Take 2.5 tablets by mouth 2 times daily. OK to crush and give via Gtube. 150 tablet 03/06/2020 06/24/2021 miconazole nitrate (REMEDY PHYTOPLEX) 2 % Ointment Apply BID to scrotum. 03/06/2020 06/24/2021 mirtazapine (REMERON) 7.5 mg Tablet Take 1 tablet by mouth nightly. 03/06/2020 06/24/[address] (Protonix) [address] for susp in Packet 1 packet by Per G Tube route 2 times daily. 03/06/2020 06/24/2021 sucralfate (Carafate) 100 mg/mL Suspension Take 10 mLs by mouth 4 times daily. 03/06/2020 06/24/2021 metoprolol succinate XL (Toprol-XL) 25 mg Tablet Sustained Release 24 hrIndications:Hypertens ion, unspecified type,PVD (peripheral vascular disease) Take 1 tablet by mouth daily. 90 tablet 3 01/25/2020 06/24/2021 documented as of this encounter Plan of Treatment Upcoming Encounters Date Type Department Care Team (Late st Contact Info) Description 08/15/2024 11:30 AM EST Office Visit Hematology/Oncology at [address] [phone] Chanelle Kim, [facility] [place] [address] Bee Curry [facility] [place] [address] documented as of this encounter Procedures Procedure Name Priority Date/Time Associated Diagnosis Comments CT ANGIOGRAM AORTA LOWER EXTREMITY RUNOFF Routine 03/22/2020 2:05 PM EDT PVD (peripheral vascular disease) documented in this encounter Results * CT Angiogram Aortic Lower Extremity Runoff (03/22/2020 2:05 PM EDT) Anatomical Region Laterality Modality Abdomen Computed Tomogra phy Impressions 03/22/2020 2:45 PM EDT Unable to complete the examination. There will be no charge for this study. Thank you for letting us participate in the care of this patient. For questions regarding this report, please contact the number below. ? Electronically signed by: Chato Hicks MD, [facility] ([phone]), at 03/22/2020 2:45 PM Narrative 03/22/2020 2:45 PM EDT EXAMINATION: CT ANGIOGRAM AORTA LOWER EXTREMITY RUNOFF CLINICAL HISTORY: Bilateral LE claudication. TECHNIQUE: Helical CTA of the abdomen, pelvis and lower extremities was performed following the intravenous administration of contrast. Administered 37.4 ml of OMNIPAQUE 350.00 mg/ml Of note, the exam was not able to be completed. Only 37 cc of contrast were able to administered intravenously before the patient complained of pain and intolerance to further injection. For this reason the exam was terminated there will be be no charge for this examination. Procedure Note Chato Hicks MD - 03/22/2020 EXAMINATION: CT ANGIOGRAM AORTA LOWER EXTREMITY RUNOFF CLINICAL HISTORY: Bilateral LE claudication. TECHNIQUE: Helical CTA of the abdomen, pelvis and lower extremities was performed following the intravenous administration of contrast.Administered 37.4 ml of OMNIPAQUE 350.00 mg/ml Of note, the exam was not able to be completed. Only 37 cc of contrast were able to administered intravenouslybefore the patient complained of pain and intolerance to further injection. Forthis reason the exam was terminated there will be be no charge for thisexamination. IMPRESSION Unable to complete the examination. There will be no charge for thisstudy. Thank you for letting us participate in the care of this patient. Forquestions regarding this report, please contact the number below. Electronically signed by: Chato Hicks MD, [facility]([phone]), at 03/22/2020 2:45 PM Stephan Armstrong MD IMG CT ORDERABLES documented in this encounter Visit Diagnoses Diagnosis PVD (peripheral vascular disease) Peripheral vascular disease, unspecified documented in this encounter Administered Medications Inactive Administered Medications - up to 3 most recent administrations Medication Order MAR Action Action Date Dose Rate Site iohexoL (Omnipaque) 350 mg/mL solution 0-200 mL 0-200 mL, Intravenous, ONCE PRN, 1 dose, Starting on Wed03/22/20 at 1241, Until Wed03/22/20 at 1241, Per Protocol, Warning Vesicant/Irritant Medication , Radiology Contrast, Routine Given 03/22/2020 12:41 PM EDT 37 mLs documented in this encounter Care Teams Vehicle Fuel Systems Converter Relationship Specialty Start Date End Date Subhash Dowling MD [address] [place] [address] PCP - General 06/03/10 documented as of this encounter
--- OUTSIDE RECORDS SUMMARY | 2024-08-15 01:32 | XMS_ITS | Encounter Summary ---
Author Organization [facility] Address [facility] [place] [address] Care Team Providers Care Director Of Recruitment And Admissions Name Role Phone Subhash Dowling MD Primary Care Provider [phone] Reason for Visit * Reason Comments Follow-up Encounter Details Date Type Department Care Team (Late st Contact Info) Description 07/01/2020 1:40 PM EST [place] [address] Stephan Armstrong MD [facility] [place] [address] Malignant neoplasm of urinary bladder, unspecified site [...] Sign Reading Time Taken Comments Blood Pressure 130/79 07/01/2020 1:59 PM EST Pulse 65 07/01/2020 1:59 PM EST Temperature - - Respiratory Rate - - Oxygen Saturation - - Inhaled Oxygen Concentration - - Weight - - Height - - Body Mass Index - - documented in this encounter Progress Notes * Rachana Luke, ANTON - 07/01/2020 1:40 PM EST Patient Name: Gt De Los Santos Date of Service: 07/01/2020 Primary Care Provider: Subhash Dowling MD Reason for Visit: Gt De Los Santos is a 69 y.o. male who on 02/13/2020 had a cystoprostatectomy +ileal conduit for a [id number] bladder cancer following 4 cycles of [place] Cisplat. All surgical margins were negative. None [...] weekswith Dr. Armstrong. After discharge: Call from [facility]: 03/25/2020: from [facility] in [place], [place] regarding patient. States they have been [...] condition. Does he know how far the plastics nurse has spread. She say the won't talk [...] gtube feeds twice daily, 240 cc each 05/24/2020 Talked to Mr de los santos and his friend Derek He has been home for a week. The feeding tube fell out yesterday. He feels fine. He has not used the feeding tube for 2-3 weeks. He is eating well. He is gaining a little. He is moving around well, He is going outside. He changes his pouch himself ~ every 2-3 days. No urethral discharge Bowels he has some constipation, his diarrohea has resolved. 07/01/2020 He did not have his imaging and labs as ordered Eating OK, Bowels +/-, constipation, No pain He changes his stoma about once a week. Has some challenges getting supplies. He is doing better. No penile discharge Appetite good, Weight down but not recently> No new bone pain Examination: Looks well No adenopathy Abdomen benign, external genitalia normal Labs: 03/25/2020 WCC 9.3, Hb 10.7, Plt 239, CL 108, Cr 1.17, eGFR 64, Alk 176 Has been elevated 04/08/2020: hgb 9.4 and hct 29.9. cre 0.93, GFR 85, LFTs normal, electrolytes normal Xrays: None Imp: [id number] bladder cancer sp 4 cycles of [place] Cisplat chemotherapy. Protein Calorie malnutrition doing better Plan 08/2019 F/U with Dr Britt and Dr Hurley with CT C/A/P and CMP in [facility]. All questions answered A total of 20 minutes were spent in a combination of chart review, discussion with the patient and documentation. documented in this encounter Plan of Treatment Upcoming Encounters Date Type Department Care Team (Late st Contact Info) Description 08/15/2024 11:30 AM EST Office Visit Hematology/Oncology at [address] [phone] Chanelle Kim [facility] [place] [address] Bee Curry [facility] [place] [address] documented as of this encounter Visit Diagnoses Diagnosis Malignant neoplasm of urinary bladder, unspecified site documented in this encounter Care Teams Director Of Recruitment And Admissions Relationship Specialty Start Date End Date Subhash Dowling MD [address] [address] PCP - General 06/03/10 documented as of this encounter
--- OUTSIDE RECORDS SUMMARY | 2024-08-15 01:32 | XMS_ITS | Encounter Summary ---
[facility] [place] [address] Care Team Providers Care Door Installer Name Role Phone Subhash Dowling MD Primary Care Provider + [phone] Reason for Visit * Reason Onset Date Comments Other 06/17/2020 transportation Encounter Details Date Type Department Care Team (Late st Contact Info) Description 06/17/2020 Telephone Hematology/Oncology at [address] [phone] Nadia Mueller MSW OFFICE OF CARE MANAGEMENT [...] Telephone Encounter - Nadia Mueller MSW - 06/17/2020 8:28 AM EST Emailed request to [facility] for a ride for pt on 07-01-20 to [facility] for follow up with Dr. Armstrong. Faxed physician referral form to [facility] for approval of ride due to distance. documented in this encounter Plan of Treatment Upcoming Encounters Date Type Department Care Team (Late st Contact Info) Description 08/15/2024 11:30 AM EST Office Visit Hematology/Oncology at [address] [phone] Chanelle Kim, [facility] [place] [address] Bee Curry [facility] [place] [address] documented as of this encounter Visit Diagnoses Not on filedocumented in this encounter Care Teams Door Installer Relationship Specialty Start Date End Date Subhash Dowling MD [address] [place] [id number] PCP - General 06/03/10 documented as of this encounter
--- OUTSIDE RECORDS SUMMARY | 2024-08-15 01:32 | XMS_ITS | Encounter Summary ---
Author Organization [facility] [place] [address] Care Team Providers Care Bias Machine Operator Name Role Phone Subhash Dowling MD Primary Care Provider [phone] Reason for Visit * Reason Onset Date Comments Other 06/25/2020 transportation p nadir review Encounter Details Date Type Department Care Team (Late st Contact Info) Description 06/25/2020 Telephone Hematology/Oncology at [address] [phone] Nadia Mueller MSW OFFICE OF CARE MANAGEMENT [...] Telephone Encounter - Nadia Mueller MSW - 06/25/2020 8:24 AM EST Transportation Plan Review Transportation service provider: LENA @ [phone] Person coordinating transportation: Daniel Mueller, @ [phone] Transportation request submitted to service provider: yes for 07-01-20 trip to [facility] Reviewed/matched transportation request with appointment schedule: yes Patient has contact information to transportation provider: yes Actions taken today: none documented in this encounter Plan of Treatment Upcoming Encounters Date Type Department Care Team (Late st Contact Info) Description 08/15/2024 11:30 AM EST Office Visit Hematology/Oncology at [address] [phone] Chanelle Kim, [facility] [place] [address] Bee Curry [facility] [place] [address] documented as of this encounter Visit Diagnoses Not on filedocumented in this encounter Care Teams Bias Machine Operator Relationship Specialty Start Date End Date Subhash Dowling MD [address] [place] [id number] PCP - General 06/03/10 documented as of this encounter
--- OUTSIDE RECORDS SUMMARY | 2024-08-15 01:32 | XMS_ITS | Encounter Summary ---
Author Organization [facility] [place] [address] Care Team Providers Care Teacher Specialist Name Role Phone Subhash Dowling MD Primary Care Provider [phone] Reason for Visit * Reason Onset Date Comments Other 07/30/2020 missed scan Encounter Details Date Type Department Care Team (Late st Contact Info) Description 07/30/2020 Telephone Hematology/Oncology at [address] [phone] Nadia Mueller PRODUCT GRADER OFFICE OF CARE MANAGEMENT Other (missed scan) Social History Tobacco Use Types Packs/Day Years [...] Telephone Encounter - Nadia Mueller MSW - 07/30/2020 10:20 AM EST Informed by Marcy Castillo, Clinical Asbestos Removal Supervisor that pt missed his appointment for a scan at [facility] yesterday. TC friend Ketty re this and no answer - left request for call back. TC pt and spoke to friend Subhash. Subhash reports pt did go to [facility] yesterday for labs and a scan. He had the labs done but was told he did not have an appointment for a scan. Will notify Denise Lamb RN re this. Reminded Subhash pt has an appointment at [facility] on 08-06-[address] Quiñones and LENA montiel has been set up for that appointment. Subhash confirmed appointment and marked his calendar. documented in this encounter Plan of Treatment Upcoming Encounters Date Type Department Care Team (Late st Contact Info) Description 08/15/2024 11:30 AM EST Office Visit Hematology/Oncology at [address] [phone] Chanelle Kim, [facility] [place] [address] Bee Curry, [facility] [place] [address] documented as of this encounter Visit Diagnoses Not on filedocumented in this encounter Care Teams Teacher Specialist Relationship Specialty Start Date End Date Subhash Dowling MD [address] [place] [id number] PCP - General 06/03/10 documented as of this encounter
--- OUTSIDE RECORDS SUMMARY | 2024-08-15 01:32 | XMS_ITS | Encounter Summary ---
Author Organization [facility] [place] [address] Care Team Providers Care Field Operations Supervisor Name Role Phone Subhash Dowling MD Primary Care Provider [phone] Reason for Visit * Reason Onset Date Comments Other 07/16/2020 transportation p nadir review Encounter Details Date Type Department Care Team (Late st Contact Info) Description 07/16/2020 Telephone Hematology/Oncology at [address] [phone] Nadia Mueller MSW OFFICE OF [...] Telephone Encounter - Nadia Mueller MSW - 07/16/2020 8:38 AM EST Transportation Plan Review Transportation service provider: LENA @ [phone] Person coordinating transportation: Nadia Mueller, @ [phone] Transportation request submitted to service provider: for 07-29-20 appointments at [facility] for labs and scan and 08-06-20 appointment at [facility] for provider visit Reviewed/matched transportation request with appointment schedule: yes Patient has contact information to transportation provider: yes Actions taken today: none documented in this encounter Plan of Treatment Upcoming Encounters Date Type Department Care Team (Late st Contact Info) Description 08/15/2024 11:30 AM EST Office Visit Hematology/Oncology at [address] [phone] Chanelle Kim, [facility] [place] [address] Bee Curry, [facility] [place] [address] documented as of this encounter Visit Diagnoses Not on filedocumented in this encounter Care Teams Field Operations Supervisor Relationship Specialty Start Date End Date Subhash Dowling MD [address] [place] [address] PCP - General 06/03/10 documented as of this encounter
--- OUTSIDE RECORDS SUMMARY | 2024-08-15 01:32 | XMS_ITS | Encounter Summary ---
Author Organization [facility] [place] [address] Care Team Providers Care Marketing Systems Analyst Name Role Phone Subhash Dowling MD Primary Care Provider [phone] Encounter Details Date Type Department Care Team (Latest Contact Info) Description 04/08/2020 1:00 PM EDT Laboratory Appointment Lab [address] [place] [phone] Malignant neoplasm of urinary bladder, unspecified site [...] AM EST Office Visit Hematology/Oncology at [address] [address] Chanelle Kim [facility] [address] Bee Curry [facility] [address] documented as of this encounter Procedures Procedure Name Priority Date/Time Associated Diagnosis Comments HEMOGRAM Routine 04/08/2020 1:04 PM EDT Malignant neoplasm of urinary bladder, unspecified site DIFFERENTIAL, AUTOMATED Routine 04/08/2020 1:04 PM EDT Malignant neoplasm of urinary bladder, unspecified site HC CBC,PLT & AUTO DIFF Routine 0 1:04 PM EDT Malignant neoplasm of urinary bladder, unspecified site COMPREHENSIVE METABOLIC PANEL STAT 04/08/2020 1:04 PM EDT Malignant neoplasm of urinary bladder, unspecified site documented in this encounter Results * Differential, Automated (04/08/2020 1:04 PM EDT) Neutrophil % 68.8 % [facility] Neutrophil Absolute 5.28 1.70 - 6.10 x10(3)/[facility] Lymph % 16.8 % [facility] Lymphocytes Abs 1.3 0.9 - 3.2 x10(3)/[facility] Monocyte % 9.5 % [facility] Monocyte Abs 0.7 0.3 - 0.9 x10(3)/[facility] Eos % 3.8 % [facility] Eosinophils Abs 0.3 0.0 - 0.4 x10(3)/[facility] Basophil % 0.7 % [facility] Baso Absolute 0.0 0.0 - 0.1 x10(3)/[facility] Immature Gran % 0.40 % [facility] Comment: Immature granulocytes(IG's)percentage and absolute count will include metamyelocytes, myelocytes, and promyelocytes. Blood smears from CBCs yielding IG's will be scanned manually for concordance. If this scan disagrees with the automated IG or if promyelocytes are noted, a manual differential will be performed. Immature Gran Absolute 0.03 0.00 - 0.04 x10(3)/[facility] Blood specimen (specimen) 04/08/2020 1:04 PM EDT 04/08/2020 1:13 PM EDT Narrative Resulting Agency Comment Spec In Lab Stephan Armstrong MD HEMATOLOGY ORDERABLE S [facility] [place] [address] * (ABNORMAL) Hemogram (04/08/2020 1:04 PM EDT) White Blood Cell 7.7 4.0 - 9.5 x10(3)/mc L [facility] Red Blood Cell 3.03(L) 4.58 - 5.54 x10(6)/mc L [facility] Hemoglobin 9.4(L) 13.7 - 16.5 gm/dL [facility] Hematocrit 29.9(L) 40.5 - 48.5 % [facility] Mean Cell Volume 98.7(H) 82.9 - 93.1 [facility] Mean Cell Hemoglobin 31.0 27.5 - 32.1 pg [facility] Mean Cell Hemoglobin Concentration 31.4(L) 32.0 - 35.7 gm/dL [facility] Platelet 246 145 - 357 x10(3)/mc L [facility] RDW Standard Deviation 60.6(H) 36.0 - 45.0 fL [facility] RDW coefficient of variation 16.8(H) 11.4 - 13.8 % [facility] Mean Platelet Volume 9.6 7.6 - 12.9 [facility] NRBC% auto 0.0 % [facility] NRBC Absolute 0.000 0.000 - 0.000 x10(3)/mc L [facility] Blood specimen (specimen) 04/08/2020 1:04 PM EDT 04/08/2020 1:13 PM EDT Narrative Resulting Agency Comment Spec In Lab Stephan Armstrong MD HEMATOLOGY ORDERABLE S [facility] [place] [address] * (ABNORMAL) Comprehensive metabolic panel (non-fasting) (04/08/2020 1:04 PM EDT) Glucose 102 65 - 199 mg/dL [facility] Comment:Diabetes: >=200 mg/d L plus symptoms Blood Urea Nitrogen 29(H) 10 - 20 mg/dL [facility] Creatinine 0.93 0.80 - 1.50 mg/dL [facility] Sodium 137 135 - 145 mmol/L [facility] Potassium 4.5 3.5 - 5.0 mmol/L [facility] Comment: Please note: ??Patients with WBC >100,000 may have falsely elevated Potassium levels. ??For accurate Potassium quantification in these patients send serum separator tube (gold top) for subsequent determinations. ??Contact the Clinical Chemistry Laboratory if there are any questions. Chloride 103 98 - 107 mmol/L [facility] Carbon Dioxide 24 22 - 31 mmol/L [facility] Anion Gap 10 5 - 15 mmol/L [facility] Calcium 9.0 8.5 - 10.5 mg/dL [facility] Protein, Total 6.1 6.1 - 8.0 gm/dL [facility] Albumin 3.6 3.2 - 5.2 gm/dL [facility] Aspartate Aminotransferase 19 0 - 39 unit/L [facility] Alanine Aminotransferase 54 0 - 55 unit/L [facility] Alkaline Phosphatase 118 40 - 130 unit/L [facility] Bilirubin, Total 0.2 0.2 - 1.3 mg/dL [facility] Est Glomerular Filtration Rate 85 >=60 mL/min/1. 73 m?? [facility] Comment: The eGFR was calculated using the CKD-EPI equation. As with all creatinine based estimates of kidney function, eGFR values calculated with the CKD-EPI equation are not accurate in patients with acute kidney failure, extremes of body mass or the acutely ill. [email or web address] [email or web address] eGFR 98 >=60 mL/min/1. 73 m?? [facility] Comment: The eGFR was calculated using the CKD-EPI equation. As with all creatinine based estimates of kidney function, eGFR values calculated with the CKD-EPI equation are not accurate in patients with acute kidney failure, extremes of body mass or the acutely ill. [email or web address] Blood specimen (specimen) 04/08/2020 1:04 PM EDT 04/08/2020 1:13 PM EDT Narrative Resulting Agency Comment Spec In Lab Stephan Armstrong MD CHEMISTRY ORDERABLES [facility] [place] [place] [address] documented in this encounter Visit Diagnoses Diagnosis Malignant neoplasm of urinary bladder, unspecified site documented in this encounter Care Teams Marketing Systems Analyst Relationship Specialty Start Date End Date Subhash Dowling MD [address] [place] [id number] PCP - General 06/03/10 documented as of this encounter
--- OUTSIDE RECORDS SUMMARY | 2024-08-15 01:32 | XMS_ITS | Encounter Summary ---
Author Organization [facility] [place] [address] Care Team Providers Care Etl Informatica Architect Name Role Phone Subhash Dowling MD Primary Care Provider [phone] Encounter Details Date Type Department Care Team (Late st Contact Info) Description 07/02/2020 Notes Only Hematology [place] [address] Kalyani Burgos, KEYA Social History Tobacco Use Types Packs/Day Years [...] on file documented as of this encounter Progress Notes * Kalyani Burgos, KEYA - 07/02/2020 12:30 PM EST I spoke with Dr. Quiñones regarding below. I also spoke with Dr. Quiñones`s trade union secretary at [facility] and confirmed pt`s appointment with CBC, CMP and CT abd/chest and pelvis on 08/06/20. Nadia Mueller, pt`s older adult social work specialist at [facility] was also notified of appointment to assist with pt`s transportation. Dr. Armstrong was also updated regarding above. Aries Has appt with you in Jul with scans etc. Silver Auguste You may remember Mr Aguilar, he may need some elp coordinating testing etc Silver Colvin F/U with CBC/CMP/CT chest/abd/pelvis with Dr Britt in 07/2020 Carol Ann Sheppard documented in this encounter Plan of Treatment Upcoming Encounters Date Type Department Care Team (Late st Contact Info) Description 08/15/2024 11:30 AM EST Office Visit Hematology/Oncology at [address] [phone] Chanelle Kim, [facility] [address] Bee Curry, [facility] [place] [address] documented as of this encounter Visit Diagnoses Not on filedocumented in this encounter Care Teams Etl Informatica Architect Relationship Specialty Start Date End Date Subhash Dowling MD [address] [place] [id number] PCP - General 06/03/10 documented as of this encounter
--- OUTSIDE RECORDS SUMMARY | 2024-08-15 01:32 | XMS_ITS | Encounter Summary ---
Author Organization [facility] [place] [address] Care Team Providers Care Bisque Kiln Placer Name Role Phone Subhash Dowling MD Primary Care Provider [phone] Reason for Visit * Reason Comments Follow-up attention to urostom y Encounter Details Date Type Department Care Team (Late st Contact Info) Description 03/25/2020 3:00 PM EDT [place] [phone] Attention to urostomy Social History Tobacco Use Types Packs/Day Years [...] as of this encounter Progress Notes * Shelby Gilliland, RN - 03/25/2020 3:00 PM EDT Images from the original note were not included. Post op Clinic Visit Diagnosis: Bladder cancer. 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 D/C Date: 03/07/20 VNA/Rehab Facility: He is admitted at [facility] in [place], [place]. Reason for Visit: Post-discharge f/u with Dr. Armstrong and the computer security specialist. Ostomy Supplies: Wearing a ConvaTec 2-piece urostomy pouch. Pt states that it's the type of wafer you cut, but the back of the wafer did not look like it had been cut at all when I removed it. It wasvery worn away by urine which could be from not cutting the hole in the wafer large enough and/or not changing the pouch twice a week. Supplies Ordered/Vendor: [facility] is providing his supplies. Samples Ordered: at time of discharge. Patient Teaching/Follow-up: Received an in-basket message from Gail Conley who spoke with from [facility] re: a few concerns. Regarding the skin breakdown at 3:00 that was mentioned in the telephone note, this is actually hypergranulation tissue that I cauterized today with silver nitrate. The peristomal skin looks healthy & intact and there is no need to continue with the stoma powder and skin prep at this time. Additionally, the message mentioned that the urostomy pouch was last changed on 03/19/20; I discussed with Gt that the pouch really should be changed twice a week, 3-4 days in between changes, to prevent leakage and skin breakdown/irriation. Gt's stoma is red, moist, and slightly oval ~1 x 1 1/8. I provided Gt with the template that I made today & I requested that he use it as a pattern for cutting out the correct size hole in the wafer during future changes. Gt was able to connect and disconnect the bedside drainage bagfrom the urostomy pouch today; I told him that he did not need to leave this hooked up during the day. He needed minimal help removing the pouch & cleaning his skin. I did help him cut the opening in the wafer, center the wafer around the stoma, and snap the pouch in place. I provided him with a new bedside drainage bag and the adaptor needed for the [employer] bag. I sent him home with the [facility] adapt[facility] that he came in with. Dr. Armstrong provided the pt with a few of his notes and my recommendations to take back to [facility] with him. Follow up: [address] Armstrong and the computer security specialist. Stoma: * Shelby Gilliland RN - 03/25/2020 3:00 PM EDT Today's Ostomy Nurse visit and recommendations: - Pt's peristomal skin is healthy & intact - there is no need to use the stoma powder & skin prep unless skin irrigation/breakdown is noted. - The redness noted is actually hypergranulation tissue that I cauterized with silver nitrate today; this area will look ang. - Please use the template I made today (given to Mr. Aguilar) to cut the appropriate sized opening in the pouch wafer. - Please continue to use the Naveen adapt ring on the back of the wafer around the cut opening. - The pouch needs to be changed twice a week, 3-4 days in between changes - to prevent leakage and skin breakdown. Please call the Ostomy team at [phone] with any questions, concerns, or issues. Thank you, Shelby Gatica. ZACKARY Gilliland, RN, CWOCN 03/25/2020 Enterostomal Therapy Team documented in this encounter Plan of Treatment Upcoming Encounters Date Type Department Care Team (Late st Contact Info) Description 08/15/2024 11:30 AM EST Office Visit Hematology/Oncology at [address] [phone] Chanelle Kim CERTIFIED SCRUB TECH [facility] [place] [address] Bee Curry CERTIFIED SCRUB TECH [facility] [place] [address] documented as of this encounter Visit Diagnoses Diagnosis Attention to urostomy Attention to other artificial opening of urinary tract documented in this encounter Care Teams Bisque Kiln Placer Relationship Specialty Start Date End Date Subhash Dowling MD [address] [place] [id number] PCP - General 06/03/10 documented as of this encounter
--- OUTSIDE RECORDS SUMMARY | 2024-08-15 01:32 | XMS_ITS | Encounter Summary ---
Author Organization [facility] Address [facility] [place] [address] Care Team Providers Care Truck Leasing Manager Name Role Phone Subhash Dowling MD Primary Care Provider [phone] Encounter Details Date Type Department Care Team (Latest Contact Info) Description 05/24/2020 11:00 AM EST TH Visit (TeleHealth) [place] [address] Stephan Armstrong MD [facility] [place] [address] Malignant neoplasm of urinary bladder, unspecified site [...] as of this encounter Progress Notes * Stephan Armstrong MD - 05/24/2020 11:00 AM EST Patient Name: Gt De Los Santos Date of Service: 05/24/2020 Primary Care Provider: Subhash Dowling MD The patient's problem is suitable for a telephone visit. I obtained verbal consent from the patientthat this encounter may be billed similar to a clinic visit and he agreed. Reason for Visit: Gt De Los Santos is a 69 y.o. male who on 02/13/2020 had a cystoprostatectomy +ileal conduit for a [id number] bladder cancer following 4 cycles of [place] Cisplat. All surgical margins were negative. None [...] weekswith Dr. Armstrong. After discharge: Call from [facility]: 03/25/2020: from [facility] in [place], [place] regarding patient. States they have been [...] condition. Does he know how far the motor adjuster has spread. She say the won't talk [...] has some constipation, his diarrohea has resolved. Examination: Not performed Labs: 03/25/2020 WCC 9.3, Hb 10.7, Plt 239, CL 108, Cr 1.17, eGFR 64, Alk 176 Has been elevated 04/08/2020: hgb 9.4 and hct 29.9. cre 0.93, GFR 85, LFTs normal, electrolytes normal Xrays: None Imp: [id number] bladder cancer sp 4 cycles of [place] Cisplat chemotherapy. Protein Calorie malnutrition doing better Diarrhea-resolved Plan 08/2019 F/U with Dr Britt and Dr Hurley with CT C/A/P and CMP in [facility]. All questions answered A total of 20 minutes were spent in a combination of chart review, discussion with the patient and documentation. documented in this encounter Plan of Treatment Upcoming Encounters Date Type Department Care Team (Late st Contact Info) Description 08/15/2024 11:30 AM EST Office Visit Hematology/Oncology at [address] [phone] [address]elle [address] [facility] [place] [address] Bee Curry [facility] [place] [address] documented as of this encounter Visit Diagnoses Diagnosis Malignant neoplasm of urinary bladder, unspecified site- Primary documented in this encounter Care Teams Truck Leasing Manager Relationship Specialty Start Date End Date Subhash Dowling MD [address] [place] [id number] PCP - General 06/03/10 documented as of this encounter
--- OUTSIDE RECORDS SUMMARY | 2024-08-15 01:32 | XMS_ITS | Encounter Summary ---
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 (Primary Dx) Social History Tobacco Use Types [...] 11:30 AM EST Office Visit Hematology/Oncology at [address] [phone] Chanelle Kim [employer] [facility] [place] [address] Bee Curry [employer] [facility] [place] [address] documented as of this encounter Visit Diagnoses Diagnosis 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- Primary Malignant neoplasm of bladder, part unspecified documented in this encounter Care Teams Can Stacker Relationship Specialty Start Date End Date Subhash Dowling MD [address] [place] [id number] PCP - General 06/03/10 documented as of this encounter
--- OUTSIDE RECORDS SUMMARY | 2024-08-15 01:33 | XMS_ITS | Encounter Summary ---
Author Organization [facility] [place] [address] Care Team Providers Care Senior Principal Architect Name Role Phone Subhash Dowling MD Primary Care Provider [phone] Reason for Referral * Diagnostic Test (Routine) - Closed Specialty Diagnoses / Procedures Referred By Haroldo clark Referred To Contact Radiology Diagnoses PVD (peripheral vascular disease) Procedures CT Angiogram Aortic Lower Extremity Runoff Laurence Rousseau MD [facility] [place] [address] [facility] [place] [address] Referral ID Status Reason Start Date Expiration Date V isits Requested Visits Authorized [id number] Closed Specialty Service Requested 02/14/2020 08/16/2021 1 1 Reason for Visit * Auth/Cert Specialty Diagnoses / Procedures Referred By Haroldo clark Referred To Contact Diagnoses Bladder cancer Bladder Cancer . 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; PVD (peripheral vascular disease); Severe protein-calorie malnutrition; Weight loss, abnormal Discharge Disposition: Rehab Center in a Facility Social History Tobacco Use Types Packs/Day Years [...] Sign Reading Time Taken Comments Blood Pressure 115/76 03/07/2020 7:32 AM EDT Pulse 92 03/06/2020 3:16 PM EDT Temperature 36.5 ??C (97.7 ??F) 03/07/2020 7:32 AM ED T Respiratory Rate 24 03/07/2020 7:32 AM EDT Oxygen Saturation 98% 03/07/2020 7:32 AM EDT Inhaled Oxygen Concentration - - Weight 44.6 kg (98 lb 6.4 oz) 03/07/2020 3:00 AM EDT Height 167.6 cm (5' 6) 02/14/2020 6:27 PM EDT Body Mass Index 15.88 02/14/2020 6:27 PM EDT documented in this encounter Discharge Summaries * Roselia Castro PA - 03/07/2020 1:31 PM EDT [X] F/u in [address] Armstrong, requested Discharge Summary Patient Name: Wally Aguilar Patient Age: 69 y.o. Language: Cypriot Race: White Ethnicity: Not nor Admit date: 02/13/2020 Discharge date: 03/07/2020 Attending Physician: Nima Armstrong MD Discharge Physician: same Discharge Diagnoses (Hospital Problems) and Secondary Diagnoses (Chronic Problems): Active Hospital Problems Diagnosis ??? Severe protein-calorie malnutrition ??? Bladder cancer Resolved Hospital Problems No resolved problems to display. Active Non-Hospital Problems Diagnosis ??? Tobacco use disorder ??? HTN (hypertension) ??? PVD (peripheral vascular disease) ??? Alcohol abuse ??? Smokes 2 packs of cigarettes per day ??? HLD (hyperlipidemia) ??? COPD, moderate ??? Weight loss, abnormal ??? Limited literacy ??? Port-A-Cath in place ??? Ostomy nurse consultation ??? 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 Malignant neoplasm of overlapping sites of bladder Operations/Major Procedures: 02/12 Cystectomy with ileal conduit creation and lymph node dissection, liver biopsy, and lysis of adhesions 02/27 G-tube placement in IR 03/06 EGD with biopsies History of Presentation: (taken from Dr. Armstrong's office note) Wally Aguilar is 69 y[address] Dr[address] Hurley for a consultation on bladder cancer. He initially presented with hematuria more than a year ago. He was seen and followed with urologist Dr. Hurley. Urine cytology performed on October 072018 was suspicious for high-grade [...] and radiation oncology, but missed at least 3 appointments due to transportation problem. ?? 08/03/[address] Hurley Large Left bladder wall mass. Incomplete resection. Unclear if JUSTYNA seen EUA residual mass with some limitation of mobility ?? Hospital Course: Patient was admitted electively to [facility] via the same day surgery program and underwent the above procedure. Operative findings as follows: - Uncomplicated radical cystoprostatectomy - Ileal conduit urinary diversion - Small??left lobe??liver lesion biopsied, negative for malignancy - No evidence of metastatic or extravesical disease - Bilateral pelvic node dissection to aortic bifurcation, including pre sacral nodes (which were adherent) - Moderate lysis of adhesions -??RIGHT??external iliac artery appeared atrophic, intraoperative vascular surgery consult; no indication for intervention at this time He tolerated surgery well and was tranferred from the PACU to the general floor in good condition afew hours after surgery. Patient's hospital course was significant for the following issues: #Acute blood loss anemia in setting of anemia of chronic disease: Received 2 units pRBCs on 02/14 #Diarrhea - C. Diff screen on 02/15 was negative. 02/17 stool culture positive for campylobacter and cryptosporidium. ID and GI were consulted. Flexiseal collection system was used and later discontinued. Treated with 14 days each of azithromycin and nitazoxanide. Completed therapy on day of discharge.Frequency and volume of stool normalized. Stool still liquid and with intermittent fecal incontinence. #Severe protein calorie malnutrition - Pt had TPN starting on 02/18. G-tube placed in IR on 02/27 fortube feedings as patient was not taking PO. Nutrition was consulted, tube feeds transitioned to bolus feeds 5x daily by time of discharge. Patient was started on Marinol as an appetite stimulant. #Esophagitis - patient was seen by GI early in stay for GERD complaints. PPI was increased to BID. Pt continued to report pain and trouble swallowing. EGD on 03/06 revealed esophagitis, biopsies were taken, and carafate was prescribed. #Depression NOS - patient was not communicative [...] B12 levels were found to be normal. He remained afebrile, with stable vital signs [...] up in 1-[address] Armstrong. Vital Signs at Discharge: Weight: Wt Readings from Last 1 Encounters: 03/07/20 44.6 kg (98 lb 6.4 oz) Height: Ht Readings from Last 1 Encounters: 02/14/20 167.6 cm (5' 6) BMI: Body mass index is 15.88 kg/m??. Last value Range last 24 hrs Temperature Temp: 36.5 ??C (97.7 ??F) Temp: [36.3 ??C (97.3 ??F)-36.6 ??C (97.9 ??F)] Heart Rate Heart Rate: 92 Heart Rate: [92] Blood Pressure BP: 115/76 BP: (107-146)/(71-85) Respiratory Rate Resp: 24 Resp: [18-24] SpO2 SpO2: 98 % SpO2: [97 %-98 %] Exam at Discharge: General: NAD CV: RRR Pulm: nonlabored breathing on room air Abd: soft, appropriately tender, non-distended. No guarding. Midline incision is c/d/i. All staplesremoved. DARYN drain site c/d/i. G-tube insertion site c/d/i. : Urostomy pink, healthy appearing, draining CYU. Urine is yellow, copious mucus. Ext: warm and well-perfused Functional and Cognitive Status: Ambulating and cognitively intact. Important Studies and Lab Data: Lab Results Component Value Date WBC 8.0 02/24/2020 RBC 2.97 (L) 02/24/2020 HGB 9.3 (L) 02/24/2020 HCT 29.0 (L) 02/24/2020 MCV 97.6 (H) 02/24/2020 MCH 31.3 02/24/2020 MCHC 32.1 02/24/2020 PLATELET 103 (L) 02/24/2020 RDWCV 15.9 (H) 02/24/2020 Lab Results Component Value Date NA 137 03/06/2020 K 5.1 (H) 03/06/2020 CL 105 03/06/2020 CO2 22 03/06/2020 BUN 46 (H) 03/06/2020 CREATININE 0.85 03/06/2020 GLUCOSE 99 03/06/2020 CALCIUM 9.3 03/06/2020 8/9 DARYN creatinine 0.8 02/27 TSH 1.32 03/05 COVID19 negative Pending Studies and Lab Data: EGD biopsies Discharge Conditions/Prognosis: Stable Discharge to: Rehab Updated Allergies/ADRs: Allergies Allergen Reactions ??? Wellbutrin [Bupropion Hcl] Other (See Comments) Unknown on pt's chart from outside facility Immunizations Given this Hospitalization: There is no immunization history on file for this patient. Discharge Medications: Your Medications New Medications Dose Details acetaminophen 500 mg Tab Commonly known as: Tylenol Take 2 tablets by mouth every 6 hours as needed for Pain. 1,000 mg Quantity: 30 tablet Refills: 1 calcium carbonate 200 mg calcium (500 mg) Chew Commonly known as: Tums Take 2 tablets by mouth every 6 hours as needed for Heartburn. 1,000 mg Quantity: Refills: 0 enoxaparin 40 mg/0.4 mL Syrg Commonly known as: LOVENOX Inject 0.4 mLs subcutaneously daily for 5 days. 40 mg Refills: 0 ergocalciferoL (vitamin D2) 200 mcg/mL (8,000 unit/mL) Drop Commonly known as: vitamin D2 6.25 mLs by Per G Tube route once a week. 50,000 Units Refills: 0 melatonin 3 mg Tab Take 2 tablets by mouth nightly. 6 mg Quantity: Refills: 0 methylphenidate 5 mg Tab Commonly known as: Ritalin Take 2.5 tablets by mouth 2 times daily. OK to crush and give via Gtube. 12.5 mg Quantity: 150 tablet Refills: 0 miconazole nitrate 2 % Oint Commonly known [...] 1 tablet by mouth 2 times daily. Replaces: varenicline 0.5 mg (11)- 1 mg (42) Dspk 1 mg Refills: 0 Continued medications, unchanged Dose Details albuteroL 90 mcg/actuation Hfaa Inhale 2 puffs into the lungs every 4 hours as needed for Wheezing. Use with spacer 2 puff Refills: 0 aspirin EC 81 mg Tbec Take 81 mg by mouth daily. 81 mg Refills: 0 atorvastatin 20 mg Tab Commonly known as: Lipitor Take 20 mg by mouth daily. 20 mg Refills: 0 metoprolol succinate XL 25 mg Tablet sr Commonly known as: Toprol-XL Take 1 tablet by mouth daily. 25 mg Quantity: 90 tablet Refills: 3 STOPPED Medications atenoloL 25 mg Tab Commonly known as: Tenormin traMADoL 50 mg Tab Commonly known as: Ultram varenicline 0.5 mg (11)- 1 mg (42) Dspk Commonly known as: CHANTIX Replaced by: varenicline 1 mg Tab Smoking Status at Discharge: Social History Tobacco Use Smoking Status Current Every Day Smoker ??? Packs/day: 2.00 ??? Years: 50.00 ??? Pack years: 100.00 Smokeless Tobacco Never Used Instructions Given to Patient at Discharge: Patient Instructions [facility] - Department of Urologic Surgery Patient Discharge Instructions Procedure: Cystectomy with ileal conduit What to Expect Following Surgery: Swelling and/or bruising under and around the incision is normal. It is usually greatest on the second or third day following surgery. Your scar will be most visible for 1-2 months following your operation and will gradually fade. As it heals, a scar looks more pink or red than the skin around it. You may feel a ???healing ridge?? directly under the incision. This is normal and will go away whenhealing is complete. The skin just above and below your incision will feel numb. This will improve over several months but some patients may have long-term decrease in sensation over these areas. Call your doctor for: Signs of possible wound infection ?? Increasing redness or swelling of the incision (some mild redness around the incision and/or irvin is normal) ?? Drainage or bleeding from the incision ?? Fever over 101.5 F ?? Increased pain or discomfort at the incision site Signs of possible bowel obstruction and/or dehydration ?? Persistent nausea and/or vomiting or the inability to keep foods or fluids down in a 24 hour period. ?? Dry mouth, dark concentrated urine or lack of urine, lightheadedness/flu-like symptoms Other ?? Any other concerning sign or symptom such as shortness or breath, chest pain, pain with urination or other signs of urinary tract infection (UTI), or new leg pain/swelling, nausea/vomiting, increasing abdominal pain, abdominal firmness, bloody stools, or if you completely stop passing gas or stool. The number for questions is [phone] before 5 PM weekdays and [phone] after 5 PM and weekends. Activity level: No heavy lifting greater than 10 pounds (about equal to a full gallon jug) for the next 4 weeks or until cleared to do so at follow-up appointment. Otherwise activity as tolerated by comfort level. Incisions: OK to leave open to air. Steristrips will fall off on their own. Tube Feed Instructions: Bolus TFs of 336 ml Promote 5X/day with 60 ml water flush pre and post eachfeed for tube patency and hydration w/ 600 ml additional free water. ?? Ostomy: Please see urostomy care instructions below. Prescriptions: Please review the medication summary on your discharge instructions. Please see instructions from Psychiatry below about titrating up the mirtazapine. Lovenox You will continue a Lovenox protocol as for 5 more days. This is to help prevent potentially dangerous blood clots. Home Health/VNA will continue to teach/monitor technique after initial dose in the hospital, and monitor progress. You will take 40mg per day for 30 days total following your surgery. Diet: You may resume your regular diet as tolerated. It is important to stay hydrated after surgery. If you find that your appetite has not returned to normal please make sure to drink electrolyte containing beverages such as Gatorade to receive the electrolytes that you need. Shower/Bath: You may shower. Pat dry immediately following. Do not scrub them vigorously for the next 2-3 weeks. Do not soak incisions (i.e. soaking in bath or swimming) until told you may do so by adoctor, as this may promote a wound infection. Wound Care: ??? You can shower per usual routine and wash the incision area gently. Pat incision dry with a clean, dry towel. ??? Do not submerge the wound under water (avoid spas, pools and bathtubs) until it is fully healed. ??? Do not use creams, oils, or ointments on the wound. ??? Keep the wound open to air if it is not draining. Follow up Appointments: Follow-up appointment will be scheduled with Dr. Armstrong in the [facility] in 1 -2 weeks for labs and post op check. Confirmation of yourappointment will be sent to you. Please call [phone] (clinic number for appointments) to confirm date and time of your appointment if you do not receive your appointment in 2-3 days. Follow-up Appointments: Future Appointments Date Time Provider Department Center 03/22/2020 12:00 PM [facility] CT [address] [facility] Rad 03/22/2020 1:30 PM John Hooper MD [facility] V SURG [facility] 04/02/2020 2:00 PM Aries Quiñones MD [facility] Urologic Surgery: [phone] Department of Urologic Surgery ??? [facility] ??? [address] ??? [place] [address] ??? [phone] ~~~~~~~~~~~~~~~~~~~~~~~~~~~~~~~~~~~~~~~~~~~~~~~~~~~~~~~~~~~~~~~~~~~ General Instructions How to obtain Ostomy Supplies: New Ostomy patients will be discharged home with 5 pouch changes. Medicare patients who are to be discharged home with Visiting Nurses(VNA) will have their Ostomy supplies ordered by VNA until they discontinue care. Once you are discharged from VNA/Homecare Nursingproceed with calling Insurance company to get preferred vendor (below) Non Medicare patients please call your Insurance company and request a list of Preferred Ostomy Vendors/Suppliers that they allow. You may then call one of those vendors (several listed below) and proceed to set up an account with them.* When calling the vendor be prepared to answer the followingquestions: -Insurance name and Account # -Date of Surgery -Type of Ostomy (Colostomy, Ileostomy or Urostomy) -order #'s for ALL supplies you are using -Name of Surgeon and telephone number [facility] ([email or web address]) Dormitory Supervisor: Zaida Pedroza [phone] [employer] (www.Fund [email or web address]) [employer] ([employer].[email or web address]) [employer] ([email or web address] [employer] ([email or web address]) [employer] (www.Down To [email or web address]) [employer] ([employer].[facility]) *If you wear [employer] products and are having a difficult time finding a vendor that will accept your Insurance you may call [employer] at . They have a team of 30 Insurance experts whowill help you find a vendor that can bill your Insurance Company. Remember, if they need to return your call expect a call from Rowena, in case you are screening your calls. Insurance companies require that the prescription or order for ostomy supplies be renewed annually. You need to get this prescription renewed by your Primary Care Provider. You will need to give your PCP the name and order #'s of all supplies you use. Some vendors will fax the order to your PCP. Patient with Urostomy When to call your Ostomy Nurse/Zachary Change in Color: The stoma should always be pink or red in color. Should the color change to white,blue or black, medical notification is required. Bleeding: It is common and normal for the stoma to bleed minimally during gentle washing. Blood found in the pouch requires medical notification. Symptoms of Urinary Tract Infections: Fever, chills, blood in urine, cloudy or foul smelling urine,flank pain. Call your Ostomy Nurse or Doctor if these symptoms occur. Mucous in urine is normal. Prolapse: The term implies that the stoma now extends further from the skin surface than it did at discharge from the hospital. An increase of one inch or more requires medical notification. Pain mayor may not accompany a prolapse. Retraction: This term implies that the bowel has slightly fallen back into the abdominal cavity. Itmay become flush with or recessed below the skin. A good seal with the pouch is difficult. Herniation: This term implies that the muscular area in which the stoma is sewn has lost its tone and the entire area, including skin and surrounding stoma now protrudes beyond the normal skin surface. Irritated Skin: Irritated skin can quickly worsen to a difficult to manage situation. Treat irritated skin as you have been taught. If it has not cleared up after one week call your ostomy nurse. Leaky Pouch: If you are having to change the pouch every other day or more frequently due to leakage it is reasonable for you to give your Ostomy Nurse a call. Ileal Conduit Pouching: [place] 2-piece pouch Name: Wally Aguilar Type of Ostomy: Urostomy Use this procedure as a guide when changing your appliance. Read all instructions, assemble all equipment, and empty contents from pouch before beginning actual change. If you have questions, do not hesitate to call the Ostomy Nurses at [phone]. Equipment: Company/Order Numbers Wet and dry soft cloth (paper towels) Plastic bag Pen, Scissors, stoma patter Appliance pouch [place] 1 09/12 #22693 Wafer, Cera Plus [place] 1 / #90321 Protective powder [place] # 7906 Adapt Paste [employer]ave[employer] # 42910 Nosting Skin Barrier Wipe [facility] # [id number] Barrier ring [employer] # 7805 Barrier strips [employer] # [id number] Night Drainage Weld Engineer [employer] #[id number] (catheter bag) OR [facility] night drainage container set #[id number] (hard plastic container) Procedure: 1. Wash Hands. 2. Using pattern, trace stoma size on back of wafer and cut out tracing. 3. Remove old pouch and wafer from skin and discard in plastic bag. 4. Wash skin and stoma with warm water and pat skin dry. 5. Utilize shama (toilet paper or paper towels) to prevent urine from leaking onto skin. 6. Examine skin and stoma for any irritation. If skin irritation present, apply a dusting of Adapt protective powder. Slater off excess powder, or wafer will not adhere. Seal the powder by applying a Nosting Skin Barrier Wipe. 7. Remove paper backing from wafer. If using an adapt ring apply this around wafer hole and press firmly in place. 8. Apply wafer to skin being sure to center over stoma. Press down firmly, first in center closest to stoma and then outer edges. Once center well sealed remove paper backing from adhesive outer edges. 9. To attach pouch to wafer flange: ??? angle bottom of pouch as desired. ??? position the top of the pouch flange onto wafer flange. ??? starting at the bottom, apply gentle pressure around the curcumference of the pouch flange until it feels secure to the flange on the wafer. You should feel or hear the pouch click into a secure position and a gentle tug all the way around will confirm that the pouch is firmly attached. 10. Close Valve 11. Picture frame (apply 1-piece of tape to each side of the wafer) with waterproof tape when showering, bathing or swimming (optional) or use barrier strips. 12. To remove old pouch from wafer pull away from the wafer using the tab at the top of the flange on the pouch, maintain gentle pressure on the wafer as the pouch is pulled away. 13. Connect pouch to night drainage connector and drainage bag at night. Sometimes the drainage tubing can get an 'air lock' to prevent this it does help to keep some urinein pouch before hooking it up to the overnight Drainage tubing. Changing Schedule: Twice a week Always bring supplies needed for a pouch change when you come in for your clinic visits, or into the hospital. Note: Rinse your night drainage bag with vinegar/water solution (1:3) after each use; hang to dry. Change night drainage specimen collector once a month. [facility] Interventional Radiology Discharge Instructions for Feeding Tube Care You had a feeding tube placed to help with your nutrition. The tube is either in your stomach, or your small intestine, depending on which tube you and your doctor decided upon. Please read the following instructions on how to care for your new feeding tube, and how to prevent, and treat, possible issues. How to care for your feeding tube: * The most common problem seen with feeding tubes is clogging. Proper flushing is the best way to avoid this issue. * Flush the feeding tube (you will use a special syringe for this) with 30-60 cc of room temperature or warm water every 4-6 hours during continuous feeding, anytime the feeding is interrupted, before and after every intermittent feeding or medication administration, or at least once or twice a daywhen the tube is not being used. DO NOT USE ACIDIC IRRIGANTS SUCH CRANBERRY JUICE OR COLA BEVERAGES TO FLUSH THE TUBE. These fluids will contribute to clogging. * Ask your provider to convert all your medications into liquid form. If you have medications whichare in pill or powder form, make sure they are crushed (ask your provider or pharmacist which medications cannot be crushed) and dilute them really well. Administer each medication separately as thiswill help prevent potential medication interactions and associated clogging. * If flushing becomes difficult, contact the Interventional Radiology department. DO NOT FORCEFULLY FLUSH, as this may result in rupture of the tube and injury to your intestine. * If you have the NON Low profile HECTOR-WILSON feeding tube the retention balloon (side port labeled ???BAL?? ) should be checked every 1-2 weeks. It should contain between 5 cc of water. If it is low this should be replaced. Do not put medications or flush through this port. * If you have a low profile ???SEAMUS-WILSON?? feeding tube, the retention balloon (side port labeled ???BAL?? ) should be checked every 1-2 weeks. It should contain between 5 cc of water. If it islow this should be replaced. Do not put medications or flush through this port. If your tube becomes clogged: *DO NOT USE CRANBERRY JUICE, COLA DRINKS, MEAT TENDERIZER OR CHYMOTRYPSIN. Okay to use clear, white, sugar-free solutions such as water, seltzer water and DIET Karolina Madeline. *Make sure the feeding tube is not kinked or clamped off. If the clog is visible above the skin surface gently massage or ???milk?? the tube between fingers to break up the clog. Then flush the tubegently. STOP if it remains clogged. *Place the special syringe into the lumen of the tube and gently pull back, then depress the plunger to dislodge the clog. Gently continue these steps until the clog dislodges. If it does not dislodge, contact Interventional Radiology. DO NOT INSERT FOREIGN OBJECTS INTO THE TUBE. 2 If your tube falls out: You have been provided with a small red rubber catheter. If your tube falls out, place this catheter into the hole in your skin, about 6 inches, and tape well to the skin. Please do not flush the tube or put tube feedings through this catheter until you have contacted Interventional Radiology. How to care for the skin around the feeding tube: * It is normal to see a small amount of yellow mucous accumulate around the tube. Gently cleanse the site with mild soap and water and pat dry. Try to avoid allowing the mucous to build up and scab. Clean sutures, external bolsters and any stabilizing devices with mild soap and water using a Q-tip.DO NOT USE HYDROGEN PEROXIDE. This can damage the tube and is harsh on the skin. * You may shower with the waterproof dressing on for the first 3 days. Then you may shower with thedressing off, cleansing the area as instructed. You can replace the dressing, or leave it off if you wish. No swimming, tub baths or whirlpools WITHOUT a waterproof bandage for the first 4 weeks. When to call your provider: * If you develop pain at the site of your feeding tube that doesn???t resolve with pain medications. * If you develop abdominal pain or bloating with flushing or feeding. * If you develop redness, swelling or drainage from the around the feeding tube or suture sites. * If you develop bleeding around or through the tube * If you have trouble flushing the tube, or if the feedings are running slower than usual * If you notice any damage to the tube or its attachments. INTERVENTIONAL RADIOLOGY PHONE NUMBERS [phone] If you have a NON Low profile feeding tube, call with any questions or concerns. During regular office hours call: [phone]. If it is after regular office hours, weekends or holidays, please call [phone] and ask to speak to the Single Needle Operator instructional specialist for Interventional Radiology. If you have a low profile ???SEAMUS-WILSON?? feeding tube, please call Maria Luisa Mace RN for any issues: [phone]. Revised 04/27/1903/06 Psychiatry Consult Assessment: Patient is a 69 YO M with history of bladder cancer (s/p recent chemotherapy), malnutrition, HTN, HLD, peripheral vascular disease, and asthma who presented to [facility] for cystoprostatectomy with ileal conduit on 02/12.??Patient's presentation is inconsistent with hypoactive delirium, as he has intact consciousness and cognition and his mental status does not appear to be waxing &??waning per willa gregorio report/chart review. He does endorse decreased mood, appetite, energy, and motivation with passive SI and sleep difficulties. ?? Patient is s/p 50,000 IU of vitamin D2 to address low vitamin D level. Inflammatory labs were drawn, demonstrating elevated ESR and hsCRP. Pro- inflammatory states in the setting of systemic illness (cancer) can drive behaviors that mimic depression such as low mood, energy, appetite, etc. ?? Methylphenidate dose yesterday has been titrated up to 12.5 mg BID with some improvement noted in affect, energy, and appetite. As patient is now on stable dose of methylphenidate, would recommend starting mirtazapine tonight for anti- depressant, sedative, and orexigenic effects. Would recommend continuing the varenicline, which was started this hospitalization - although it can contribute to nausea, this is mitigated by administering with free water boluses, and the benefits outweigh the potential side effects. ?? Primary Diagnosis: Depression NOS ?? Plan/Recommendations: - continue methylphenidate 12.5 mg q6AM + 12.5 mg qNoon - please avoid giving second dose later than noon as it can affect sleep - continue melatonin 6 mg QHS - start mirtazapine 7.5 mg QHS, if he tolerates can titrate up on the following schedule: - after receiving 3 doses, increase to 15 mg QHS - after another 3 doses, can increase to 30 mg QHS - continue varenicline as ordered - vitamin D low, s/p 50,000 IU vitamin D2 Future Appointments and Orders Future Appointments and Orders Future Appointments Provider Department Dept Phone 03/22/2020 12:00 PM [facility] CT 4 CAT Scan at [facility] Arrive at: INTERVENTIONAL RADIOLOGY [phone] Please arrive at the Lab 1 Hour and 15 Minutes prior to your scheduled time if your labs need to betaken. 03/22/2020 1:30 PM John Hooper MD Vascular Surgery at [facility] Arrive at: [facility] 04/02/2020 2:00 PM Chanelle Kim, ANTON; Aries Quiñones MD Hematology/Oncology at [facility] Arrive at: [facility] door at end of hallway [phone] Future Orders Complete By Expires CBC (with Diff) [[id number] Custom] 03/14/2020 (Approximate) 04/07/2020 Process Instructions: INCLUDES: WBC, RBC, Hgb, Hct, Platelets, RBC Indices and Differential Scheduling Instructions: Comments: Questions: Comprehensive metabolic panel (non-fasting) [LAB17 Custom] 03/14/2020 (Approximate) 04/07/2020 Process Instructions: INCLUDES: Calcium, T Protein, Albumin, AST, ALT, Alk Phos, T Bili, BUN, Creat, GFR, Glucose, Lytes. Scheduling Instructions: Comments: Questions: CT Angiogram Aortic Lower Extremity Runoff [[id number] Custom] 03/16/2020 08/16/2020 Process Instructions: Scheduling Instructions: Comments: Would like to include abdomen and pelvis with full bilateral lower extremity runoff Questions: Where will study be performed?: [facility] Radiology Reason for exam and clinical history: Bilateral LE claudication Clinical information / wilson questions: Stat read required?: Does patient require sedation?: GA rationale: Date of injury if applicable: Requested Time: Follow-Up: Future Appointments Date Time Provider Department Center 03/22/2020 12:00 PM [facility] CT [address] CT [facility] Rad 03/22/2020 1:30 PM John Hooper MD [facility] V SURG [facility] 04/02/2020 2:00 PM Aries Quiñones MD [facility] Hem Off [facility] Primary Care Provider: Subhash Dowling MD [phone] Call your doctor if: Please call your doctor immediately or go to an Emergency Department if you notice worsening pain not controlled by pain medications, uncontrolled headache, vision changes, chest pain, difficulty breathing, persistent nausea and vomiting, new redness or swelling in any extremities, new onset weakness or changes in sensation, or for any fevers greater than 101.3 F. Your care was managed by the Urology Team at [facility]. If you have any questions or concerns, please feel free to contact us. Provider Contact Information: Urology Clinic: [facility] (after business hours): documented in this encounter Discharge Instructions * Discharge Instructions* Roselia Castro PA - 03/06/2020 12:00 PM EDT How to obtain Ostomy Supplies: New Ostomy patients will be discharged home with 5 pouch changes. Medicare patients who are to be discharged home with Visiting Nurses(VNA) will have their Ostomy supplies ordered by VNA until they discontinue care. Once you are discharged from VNA/Homecare Nursingproceed with calling Insurance company to get preferred vendor (below) Non Medicare patients please call your Insurance company and request a list of Preferred Ostomy Vendors/Suppliers that they allow. You may then call one of those vendors (several listed below) and proceed to set up an account with them.* When calling the vendor be prepared to answer the followingquestions: -Insurance name and Account # -Date of Surgery -Type of Ostomy (Colostomy, Ileostomy or Urostomy) -order #'s for ALL supplies you are using -Name of Surgeon and telephone number [employer] ([email or web address]) Dormitory Supervisor: Zaida Pedroza [phone] [employer] ([email or web address]) Macario Postmaster ([email or web address]) [employer] ([email or web address] [employer] ([email or web address]) [facility] ([email or web address]) [employer] ([employer].[facility]) *If you wear Naveen products and are having a difficult time finding a vendor that will accept your Insurance you may call [employer]ave[employer] at . They have a team of 30 Insurance experts whowill help you find a vendor that can bill your Insurance Company. Remember, if they need to return your call expect a call from Rowena, in case you are screening your calls. Insurance companies require that the prescription or order for ostomy supplies be renewed annually. You need to get this prescription renewed by your Primary Care Provider. You will need to give your PCP the name and order #'s of all supplies you use. Some vendors will fax the order to your PCP. Patient with Urostomy When to call your Ostomy Nurse/Zachary Change in Color: The stoma should always be pink or red in color. Should the color change to white,blue or black, medical notification is required. Bleeding: It is common and normal for the stoma to bleed minimally during gentle washing. Blood found in the pouch requires medical notification. Symptoms of Urinary Tract Infections: Fever, chills, blood in urine, cloudy or foul smelling urine,flank pain. Call your Ostomy Nurse or Doctor if these symptoms occur. Mucous in urine is normal. Prolapse: The term implies that the stoma now extends further from the skin surface than it did at discharge from the hospital. An increase of one inch or more requires medical notification. Pain mayor may not accompany a prolapse. Retraction: This term implies that the bowel has slightly fallen back into the abdominal cavity. Itmay become flush with or recessed below the skin. A good seal with the pouch is difficult. Herniation: This term implies that the muscular area in which the stoma is sewn has lost its tone and the entire area, including skin and surrounding stoma now protrudes beyond the normal skin surface. Irritated Skin: Irritated skin can quickly worsen to a difficult to manage situation. Treat irritated skin as you have been taught. If it has not cleared up after one week call your ostomy nurse. Leaky Pouch: If you are having to change the pouch every other day or more frequently due to leakage it is reasonable for you to give your Ostomy Nurse a call. Ileal Conduit Pouching: [place] 2-piece pouch Name: Wally Aguilar Type of Ostomy: Urostomy Use this procedure as a guide when changing your appliance. Read all instructions, assemble all equipment, and empty contents from pouch before beginning actual change. If you have questions, do not hesitate to call the Ostomy Nurses at [phone]. Equipment: Company/Order Numbers Wet and dry soft cloth (paper towels) Plastic bag Pen, Scissors, stoma patter Appliance pouch [employer] 1 09/12 #77379 Wafer, Cera Plus [place] 1 09/12 #33061 Protective powder [place] # 7906 Adapt Paste [employer]aveen # 60156 Nosting Skin Barrier Wipe [facility] # [id number] Barrier ring [place] # 7805 Barrier strips [employer] # [id number] Night Drainage Weld Engineer Bard #[id number] (catheter bag) OR [facility] night drainage container set #[id number] (hard plastic container) Procedure: 1. Wash Hands. 2. Using pattern, trace stoma size on back of wafer and cut out tracing. 3. Remove old pouch and wafer from skin and discard in plastic bag. 4. Wash skin and stoma with warm water and pat skin dry. 5. Utilize shama (toilet paper or paper towels) to prevent urine from leaking onto skin. 6. Examine skin and stoma for any irritation. If skin irritation present, apply a dusting of Adapt protective powder. Slater off excess powder, or wafer will not adhere. Seal the powder by applying a Nosting Skin Barrier Wipe. 7. Remove paper backing from wafer. If using an adapt ring apply this around wafer hole and press firmly in place. 8. Apply wafer to skin being sure to center over stoma. Press down firmly, first in center closest to stoma and then outer edges. Once center well sealed remove paper backing from adhesive outer edges. 9. To attach pouch to wafer flange: ??? angle bottom of pouch as desired. ??? position the top of the pouch flange onto wafer flange. ??? starting at the bottom, apply gentle pressure around the curcumference of the pouch flange until it feels secure to the flange on the wafer. You should feel or hear the pouch click into a secure position and a gentle tug all the way around will confirm that the pouch is firmly attached. 10. Close Valve 11. Picture frame (apply 1-piece of tape to each side of the wafer) with waterproof tape when showering, bathing or swimming (optional) or use barrier strips. 12. To remove old pouch from wafer pull away from the wafer using the tab at the top of the flange on the pouch, maintain gentle pressure on the wafer as the pouch is pulled away. 13. Connect pouch to night drainage connector and drainage bag at night. Sometimes the drainage tubing can get an 'air lock' to prevent this it does help to keep some urinein pouch before hooking it up to the overnight Drainage tubing. Changing Schedule: Twice a week Always bring supplies needed for a pouch change when you come in for your clinic visits, or into the hospital. Note: Rinse your night drainage bag with vinegar/water solution (1:3) after each use; hang to dry. Change night drainage specimen collector once a month. [facility] Interventional Radiology Discharge Instructions for Feeding Tube Care You had a feeding tube placed to help with your nutrition. The tube is either in your stomach, or your small intestine, depending on which tube you and your doctor decided upon. Please read the following instructions on how to care for your new feeding tube, and how to prevent, and treat, possible issues. How to care for your feeding tube: * The most common problem seen with feeding tubes is clogging. Proper flushing is the best way to avoid this issue. * Flush the feeding tube (you will use a special syringe for this) with 30-60 cc of room temperature or warm water every 4-6 hours during continuous feeding, anytime the feeding is interrupted, before and after every intermittent feeding or medication administration, or at least once or twice a daywhen the tube is not being used. DO NOT USE ACIDIC IRRIGANTS SUCH CRANBERRY JUICE OR COLA BEVERAGES TO FLUSH THE TUBE. These fluids will contribute to clogging. * Ask your provider to convert all your medications into liquid form. If you have medications whichare in pill or powder form, make sure they are crushed (ask your provider or pharmacist which medications cannot be crushed) and dilute them really well. Administer each medication separately as thiswill help prevent potential medication interactions and associated clogging. * If flushing becomes difficult, contact the Interventional Radiology department. DO NOT FORCEFULLY FLUSH, as this may result in rupture of the tube and injury to your intestine. * If you have the NON Low profile HECTOR-WILSON feeding tube the retention balloon (side port labeled ???BAL?? ) should be checked every 1-2 weeks. It should contain between 5 cc of water. If it is low this should be replaced. Do not put medications or flush through this port. * If you have a low profile ???SEAMUS-WILSON?? feeding tube, the retention balloon (side port labeled ???BAL?? ) should be checked every 1-2 weeks. It should contain between 5 cc of water. If it islow this should be replaced. Do not put medications or flush through this port. If your tube becomes clogged: *DO NOT USE CRANBERRY JUICE, COLA DRINKS, MEAT TENDERIZER OR CHYMOTRYPSIN. Okay to use clear, white, sugar-free solutions such as water, seltzer water and DIET Karolina Madeline. *Make sure the feeding tube is not kinked or clamped off. If the clog is visible above the skin surface gently massage or ???milk?? the tube between fingers to break up the clog. Then flush the tubegently. STOP if it remains clogged. *Place the special syringe into the lumen of the tube and gently pull back, then depress the plunger to dislodge the clog. Gently continue these steps until the clog dislodges. If it does not dislodge, contact Interventional Radiology. DO NOT INSERT FOREIGN OBJECTS INTO THE TUBE. 2 If your tube falls out: You have been provided with a small red rubber catheter. If your tube falls out, place this catheter into the hole in your skin, about 6 inches, and tape well to the skin. Please do not flush the tube or put tube feedings through this catheter until you have contacted Interventional Radiology. How to care for the skin around the feeding tube: * It is normal to see a small amount of yellow mucous accumulate around the tube. Gently cleanse the site with mild soap and water and pat dry. Try to avoid allowing the mucous to build up and scab. Clean sutures, external bolsters and any stabilizing devices with mild soap and water using a Q-tip.DO NOT USE HYDROGEN PEROXIDE. This can damage the tube and is harsh on the skin. * You may shower with the waterproof dressing on for the first 3 days. Then you may shower with thedressing off, cleansing the area as instructed. You can replace the dressing, or leave it off if you wish. No swimming, tub baths or whirlpools WITHOUT a waterproof bandage for the first 4 weeks. When to call your provider: * If you develop pain at the site of your feeding tube that doesn???t resolve with pain medications. * If you develop abdominal pain or bloating with flushing or feeding. * If you develop redness, swelling or drainage from the around the feeding tube or suture sites. * If you develop bleeding around or through the tube * If you have trouble flushing the tube, or if the feedings are running slower than usual * If you notice any damage to the tube or its attachments. INTERVENTIONAL RADIOLOGY PHONE NUMBERS [phone] If you have a NON Low profile feeding tube, call with any questions or concerns. During regular office hours call: [phone]. If it is after regular office hours, weekends or holidays, please call [phone] and ask to speak to the Single Needle Operator instructional specialist for Interventional Radiology. If you have a low profile ???SEAMUS-WILSON?? feeding tube, please call Maria Luisa Mace RN for any issues: [phone]. Revised 04/27/1903/06 Psychiatry Consult Assessment: Patient is a 69 YO M with history of bladder cancer (s/p recent chemotherapy), malnutrition, HTN, HLD, peripheral vascular disease, and asthma who presented to [facility] for cystoprostatectomy with ileal conduit on 02/12.??Patient's presentation is inconsistent with hypoactive delirium, as he has intact consciousness and cognition and his mental status does not appear to be waxing &??waning per nursi ng report/chart review. He does endorse decreased mood, appetite, energy, and motivation with passive SI and sleep difficulties. ?? Patient is s/p 50,000 IU of vitamin D2 to address low vitamin D level. Inflammatory labs were drawn, demonstrating elevated ESR and hsCRP. Pro- inflammatory states in the setting of systemic illness (cancer) can drive behaviors that mimic depression such as low mood, energy, appetite, etc. ?? Methylphenidate dose yesterday has been titrated up to 12.5 mg BID with some improvement noted in affect, energy, and appetite. As patient is now on stable dose of methylphenidate, would recommend starting mirtazapine tonight for anti- depressant, sedative, and orexigenic effects. Would recommend continuing the varenicline, which was started this hospitalization - although it can contribute to nausea, this is mitigated by administering with free water boluses, and the benefits outweigh the potential side effects. ?? Primary Diagnosis: Depression NOS ?? Plan/Recommendations: - continue methylphenidate 12.5 mg q6AM + 12.5 mg qNoon - please avoid giving second dose later than noon as it can affect sleep - continue melatonin 6 mg QHS - start mirtazapine 7.5 mg QHS, if he tolerates can titrate up on the following schedule: - after receiving 3 doses, increase to 15 mg QHS - after another 3 doses, can increase to 30 mg QHS - continue varenicline as ordered - vitamin D low, s/p 50,000 IU vitamin D2 * Patient Instructions* Roselia Castro PA - 03/06/2020 11:51 AM EDT [facility] - Department of Urologic Surgery Patient Discharge Instructions Procedure: Cystectomy with ileal conduit What to Expect Following Surgery: Swelling and/or bruising under and around the incision is normal. It is usually greatest on the second or third day following surgery. Your scar will be most visible for 1-2 months following your operation and will gradually fade. As it heals, a scar looks more pink or red than the skin around it. You may feel a ???healing ridge?? directly under the incision. This is normal and will go away whenhealing is complete. The skin just above and below your incision will feel numb. This will improve over several months but some patients may have long-term decrease in sensation over these areas. Call your doctor for: Signs of possible wound infection ?? Increasing redness or swelling of the incision (some mild redness around the incision and/or irvin is normal) ?? Drainage or bleeding from the incision ?? Fever over 101.5 F ?? Increased pain or discomfort at the incision site Signs of possible bowel obstruction and/or dehydration ?? Persistent nausea and/or vomiting or the inability to keep foods or fluids down in a 24 hour period. ?? Dry mouth, dark concentrated urine or lack of urine, lightheadedness/flu-like symptoms Other ?? Any other concerning sign or symptom such as shortness or breath, chest pain, pain with urination or other signs of urinary tract infection (UTI), or new leg pain/swelling, nausea/vomiting, increasing abdominal pain, abdominal firmness, bloody stools, or if you completely stop passing gas or stool. The number for questions is [phone] before 5 PM weekdays and [phone] after 5 PM and weekends. Activity level: No heavy lifting greater than 10 pounds (about equal to a full gallon jug) for the next 4 weeks or until cleared to do so at follow-up appointment. Otherwise activity as tolerated by comfort level. Incisions: OK to leave open to air. Steristrips will fall off on their own. Tube Feed Instructions: Bolus TFs of 336 ml Promote 5X/day with 60 ml water flush pre and post eachfeed for tube patency and hydration w/ 600 ml additional free water. ?? Ostomy: Please see urostomy care instructions below. Prescriptions: Please review the medication summary on your discharge instructions. Please see instructions from Psychiatry below about titrating up the mirtazapine. Lovenox You will continue a Lovenox protocol as for 5 more days. This is to help prevent potentially dangerous blood clots. Home Health/VNA will continue to teach/monitor technique after initial dose in the hospital, and monitor progress. You will take 40mg per day for 30 days total following your surgery. Diet: You may resume your regular diet as tolerated. It is important to stay hydrated after surgery. If you find that your appetite has not returned to normal please make sure to drink electrolyte containing beverages such as Gatorade to receive the electrolytes that you need. Shower/Bath: You may shower. Pat dry immediately following. Do not scrub them vigorously for the next 2-3 weeks. Do not soak incisions (i.e. soaking in bath or swimming) until told you may do so by adoctor, as this may promote a wound infection. Wound Care: ??? You can shower per usual routine and wash the incision area gently. Pat incision dry with a clean, dry towel. ??? Do not submerge the wound under water (avoid spas, pools and bathtubs) until it is fully healed. ??? Do not use creams, oils, or ointments on the wound. ??? Keep the wound open to air if it is not draining. Follow up Appointments: Follow-up appointment will be scheduled with Dr. Armstrong in the [facility] in 1 -2 weeks for labs and post op check. Confirmation of yourappointment will be sent to you. Please call [phone] (clinic number for appointments) to confirm date and time of your appointment if you do not receive your appointment in 2-3 days. Follow-up Appointments: Future Appointments Date Time Provider Department Center 03/22/2020 12:00 PM [facility] [facility] [address] [facility] Rad 03/22/2020 1:30 PM John oHoper MD [facility] 04/02/2020 2:00 PM Aries Quiñones MD [facility] [place] [facility]: [phone] Department of Urologic Surgery ??? [facility] ??? [address] ??? [place] [address] ??? [phone] ~~~~~~~~~~~~~~~~~~~~~~~~~~~~~~~~~~~~~~~~~~~~~~~~~~~~~~~~~~~~~~~~~~~ documented in this encounter Medications at Time [...] Tablet Take 20 mg by mouth daily. enoxaparin (LOVENOX) 40 mg/0.4 mL Syringe Inject 0.4 mLs subcutaneously daily for 5 days. 0 03/07/2020 03/12/2020 varenicline (Chantix) 1 mg Tablet Take 1 [...] 2 % Ointment Apply BID to scrotum. 03/06/20202020 mirtazapine (REMERON) 7.5 mg Tablet Take 1 tablet by mouth nightly. 03/06/2020 06/24/[address] (Protonix) [address] for susp in Packet 1 packet by Per G Tube route 2 times daily. 03/06/2020 06/24/2021 sucralfate (Carafate) 100 mg/mL Suspension Take 10 mLs by mouth 4 times daily. 03/06/2020 06/24/2021 metoprolol succinate XL (Toprol-XL) 25 mg Tablet Sustained Release 24 hrIndications:Hypert ension, unspecified type,PVD (peripheral vascular disease) Take 1 tablet by mouth daily. 90 tablet 3 01/25/2020 06/24/2021 documented as of this encounter Progress Notes * Nelson Chicas RN - 03/07/2020 3:03 PM EDT Acute Pain Service - Epidural 30 Day Follow-up Call - Operative Procedures: Procedure(s): EGD WITH BIOPSY (WRVU 2.49) DH AN APS FOLLOWUP CALL: 04/10/2020 8:51 AM Opioid prescription on Discharge: No Opioid Prescription at 30 days: No PDMP Review Only APS Nurse: Nelson Chicas RN * Wendy King RN - 03/07/2020 2:56 PM EDT Port de-accessed per protocol. IV D/C'd per protocol - catheter intact. Pt d/c'd to [facility] via ambulance. Report called to KEYA Patterson at [phone]. Pt's VSS, no c/o pain, CP, SOB, no acute distress noted. * Lizbeth Abdi RN - 03/07/2020 10:58 AM EDT OFFICE OF CARE MANAGEMENT Machine Shop Repair Technician Discharge Note Lizbeth Abdi RN reviewed record and discussed patient with Care Team. Patient plan of care discussed in multidisciplinary rounds and assessment for continuing care and discharge needs. Diagnosis: Bladder Cancer LOS Hospital: 23 days INSURANCE: Payor: MEDICARE / Plan: MEDICARE PART A & B / Product Type: *No Product type* / SECONDARY INSURANCE: MEDICAID [place] DECISION MAKER: Attempt Cardiopulmonary Resuscitation - Inpatient <no information> Patient is medically ready for discharge today. Patient will be transported to [facility] for rehab via ambulanc at 3pm today. Updated brother David of discharge via telephone. Updated Demo screen withbrother's correct phone. Team updated Current Referral in place: [facility] Rehab Transportation: Ambulance will drive patient to rehab when medically ready. Support: brother Due to current public health concerns, I have verbally reviewed Medicare Discharge Rights with patient. Patient verbalizes understanding of right to appeal this discharge if feeling not medically ready. Important Message From Medicare about Your Rights letter was reviewed with patient. Patient given a copy. Patient acknowledged understanding of their right to appeal this discharge if they feel that they are not medically ready. Machine Shop Repair Technician to follow with team and family to assist with discharge needs when patient ready for discharge. Lizbeth Abdi RN Case Management pgr [phone] * Bailey Collins RN - 03/07/2020 4:08 AM EDT OUTCOME EVALUATION NOTE: OUTCOME SUMMARY: Patient did not state any pain this shift. He was nauseas and had x1 episode of emesis, PRN compazine given with good effect. TF infusing, tolerating well. No BM this shift, passing flatus. UOP adequate via urostomy. Care clustered to promote rest, will continue to monitor. PLAN MOVING FORWARD: Encourage OOB Encourage self care Increase TF as tolerated INDIVIDUALIZED FALL PREVENTION INTERVENTIONS: Patient-specific fall risk factors per assessment: [current deficits]: Generalized weakness Assistance [level of assistance required for transfers and ambulation]: SBA Supervision [direct monitoring required during toileting and ADLs]: Hands on Surveillance [continuous indirect monitoring]: Nurse knowledge exchange, purposeful rounding, environmental modifications (waste basket is out of the path and the IV tubing and cords are free from the floor), fall reduction program in place, lighting adjusted for task, bed in low position, wheels lo cked, side rails up (x2), nonskid socks worn OOB, no restraints, call light is within reach at all times, assistive device, bed/chair alarm, [place] ID band on Patient-specific fall prevention interventions for sensory deficits provided, if applicable: [X] N/A CPG GOAL OUTCOME EVALUATION: * Lizbeth Abdi RN - 03/06/2020 12:31 PM EDT OFFICE OF CARE MANAGEMENT Machine Shop Repair Technician Follow-up Note Lizbeth Abdi RN reviewed record and discussed patient with Care Team. Patient plan of care discussed in multidisciplinary rounds and assessment for continuing care and discharge needs. Diagnosis: Bladder Cancer LOS Hospital: 22 days INSURANCE: Payor: MEDICARE / Plan: MEDICARE PART A & B / Product Type: *No Product type* / SECONDARY INSURANCE: [place]ICAID [place] DECISION MAKER: Attempt Cardiopulmonary Resuscitation - Inpatient <no information> Patient [facility] be discharge [facility]. Transportation: Ambulance will drive patient to rehab when medically ready. Machine Shop Repair Technician to follow with team and family to assist with discharge needs when patient ready for discharge. Lizbeth Abdi RN Case Management pgr [phone] * Brooke Pearce APRN - 03/06/2020 11:44 AM EDT Surgical Oncology TF Donation Note Notified by Urology PA that patient discharging to rehab and that facility requesting he be sent with 2 days worth of formula. Patient will be receiving bolus feeds of Promote - 336cc bolus feed 5 times per day via his G-tube. I donated the following to patient, which is roughly 3 days worth of formula: - Donated twenty-four 8oz cartons of unused and unexpired Promote to Wally Aguilar on 03/06/20 (Lot # [id number], Exp. 07/12/2020). Signed: Brooke Pearce APRN Surgical Oncology Service Team Pager #[phone] 03/06/20 11:45 AM * Soniya Christine - 03/06/2020 11:08 AM EDT Office of Care Management/Mechanical Engineering Technician Patient Name: Wally Aguilar : 1950 Patient has been offered a snf bed at [facility] arranged for a 1500 transport. Ambulance will need: Medicare ambulance form completed and signed (MD or Machine Shop Repair Technician RN/[employer] SUPERVISOR) Copy of patient demographics [place] [facility] [place] [facility] DNR/DNI order, if active No MD to MD report necessary Please call Nursing Report to [phone], ask for llama farmer. Info to accompany patient: Narcotic Prescriptions Copies of Medication Administration Records and IV sheets for past 10 days. Plan: Mechanical Engineering Technician will be available to the patient and Machine Shop Repair Technician-RN and/or Social Workerfor further assistance. Patient will be discharged to: [address] [place] [address] Dayna Gutierrez * Roselia Castro PA - 03/06/2020 7:36 AM EDT Urology Inpatient Progress Note Patient Name: Wally Aguilar Patient Age: 69 y.o. Birthdate: 1950 Admit date: 02/13/2020 Attending Physician: Nima Armstrong MD ID: Wally Aguilar is a 69 y.o. male 22 Days Post-Op from a cystoprostatectomy with ileal conduit for MIBC. 24hr events: ?? Tolerating G-tube feeds ?? Reports intermittent persistent abdominal pain, cramping, and nausea. Retching interferes with taking pills PO. ?? Somewhat more talkative and interactive with staff ?? Seen by GI, scheduled for EGD today ?? Continues on abx for crypto & campylobacter +, azithromycin finished on 03/04, continues on nitazoxanide through 03/07 ?? Ambulating minimally, to chair and bathroom. Can walk in tejeda, not excited to do so. ?? Psychiatry managing methylphenidate dose titration ?? atomic process engineer reports patient is participating actively in ostomy appliance changes, needs some prompting and help with cutting with scissors ?? Still with occasional stool incontinence, overall stool frequency is now 1- 2x/day with variable continence O: Last value Range last 24hrs Temperature Temp: 36.4 ??C (97.5 ??F) Temp: [36.4 ??C (97.5 ??F)-36.6 ??C (97.9 ??F)] Heart Rate Heart Rate: 99 Heart Rate: [82-99] Blood Pressure BP: 114/76 BP: (104-120)/(66-77) Respiratory Rate Resp: 20 Resp: [19-20] SpO2 SpO2: 99 % SpO2: [98 %-99 %] 03/05 0701 - 03/06 0700 In: 1196 [P.O.:200] Out: 2275 [Urine:2275] Physical Exam: General: NAD, resting in bed, slightly more alert and interactive, answers in low voice/mumbles HEENT: normocephalic, anicteric sclerae CVS: regular rate Pulm: nonlabored breathing on RA Abd: soft, appropriately tender, non-distended. No guarding. Midline incision is c/d/i. All staplesremoved. DARYN drain site dressing c/d/i. G-tube insertion site c/d/i. : Urostomy pink, healthy appearing, draining CYU. Urine is neon yellow, copious mucus. Skin: warm, dry Ext: well perfused, no edema Neuro: Grossly intact, nonfocal Labs: Recent Labs 03/06/20 0145 NA 137 K 5.1* CL 105 CO2 22 BUN 46* CREATININE 0.85 GLUCOSE 99 CALCIUM 9.3 MAGNESIUM 0.96 PHOS 4.0 25-OH Vit D Total (ng/mL) Date Value Status 02/28/2020 15 (L) Final 03/04 Covid19 - negative ASSESSMENT: Wally Aguilar is a 69 y.o. male 22 Days Post-Op s/p cystoprostatectomy with ileal conduit for MIBC whose post-op course is complicated by poor PO intake and infectious diarrhea. He has been HDS and afebrile. Diarrhea is improved, still with some loose stool and fecal incontinence. Stool campylobacter antigen and cryptosporidium found to be positive, treating for 14 days with azithromycin (02/18 first dose --> 03/04 - done) and nitazoxanide 500mg bid (02/21 --> 03/07); appreciate ID assistance. Will check before stopping. Pt has been participating with ostomy changes. Some mobility, but needs a lot of encouragement. Will work to advance mobility with PT/OT and nursing staff. Patient is now accepting of the idea of rehab, referrals are in and pending. COVID test negative G-tube placed, tube feeding begun for severe protein calorie malnutrition. Will transition to bolustube feeds as per Nutrition. Repleting Vit D (Nutrition agrees with 50,000 units weekly of D2, suggest continuing through 04/25/2020). Appreciate Psychiatry consult. Ritalin dose to 12.5 mg BID. Also suggested giving water bolus with Chantix to help avoid GI upset. Appreciate their assistance. Appreciate GI assistance with GI symptoms that are interfering with nutrition and PO intake. EGD today, NPO for procedure. Goals for today: OOB walk x4 daily Rehab referrals - has a bed offer today Continue TF's, transition to bolus feedings Continue antibiotics for positive stool cultures, touch base with ID Continue to work with feed handler and PT Continue to suggest shower, hygiene, activity, getting outside PLAN: Neuro: pain control: tylenol and tramadol prn, lidoderm patch Psych: Ritalin titrating up. Chantix with water bolus. Card: HDS, Monitor vital signs, [id number], statin, Toprol XL Pulm: albuterol, ambulation, IS. FEN: replete lytes prn, strict I/O's GI: Marinol for appetite stimulant, NPO diet (Give Meds),compazine, protonix, tums Renal/: monitor urine output. Routine ostomy care. Heme: ESR and sed rate elevated as expected given active infection and post surgical ID: Miconazole ointment to scrotum, azithromycin (done 03/04) & nitazoxanide (until 03/07) for infectious diarrhea ([id number] day courses) Endo: Vit D repletion, 50K unis Qweek until 04/25/2020 Home Meds: atorvastatin, metoprolol PPx: lovenox, SCDs, ambulation, ISC, cough, deep breathing Dispo: Stable on floor status. Discussing discharge planning with CM. Will need rehab. Awaiting Code Status: Attempt Cardiopulmonary Resuscitation - Inpatient NAHID CROWELL 03/06/2020 * Donte Sheffield RD - 03/05/2020 1:36 PM EDT Nutrition Progress Note Patient admitted with bladder CA s/p radical cystoprostatectomy + Ileal Conduit (02/13/20), relevant medical history includes asthma, hypertension, hyperlipidemia, smoker (2 ppd for 50 years). Now w/ new g-tube Wally Aguilar is a 69 y.o. male Reason for intervention: Follow up and Tube-feeding Nutrition Recommendations: New labs BMP Mg Phos recommended could consider bolus TFs of 336 ml Promote 5X/day with 60 ml water flush pre and post each feed fortube patency and hydration to provide the same nutrition as above w/ 600 ml additional free water. Would initiate at 100ml/hr and adv as tolerated by 50 ml per feed to goal Continue current diet Monitor weight Active Orders Diet Regular diet Frequency: Effective Now Number of Occurrences: Until Specified Nourishments Adult diet Oral Supplements Boost Breeze (clear liquid) Frequency: 4 Times Daily Number of Occurrences: Until Specified Current tube feeding: Promote goal of 70 ml/hr X 24 hrs to provide 1680 ml formula with 1680 kcal, 104 grams protein, 1409 ml free water from formula and 100% USRDIs. Lab Results Component Value Date NA 148 (H) 02/28/2020 K 4.2 02/28/2020 CL 112 (H) 02/28/2020 CO2 23 02/28/2020 BUN 67 (H) 02/28/2020 CREATININE 0.83 02/28/2020 GFRAA 106 02/28/2020 ESTGFR 91 02/28/2020 MAGNESIUM 1.01 02/28/2020 CALCIUM 8.5 02/28/2020 PHOS 4.1 02/28/2020 AST 32 02/20/2020 ALT 39 02/20/2020 ALKPHOS 100 02/20/2020 BILITOT 0.2 02/20/2020 BILIDIR 0.1 02/20/2020 TRIG 126 01/25/2020 CRP 13.0 02/29/2020 CRP 1.2 01/25/2020 [id number] 02/28/2020 25OHVITD 15 (L) 02/28/2020 SFOLATE 10.9 02/29/2020 IRON 81 01/25/2020 No results found for: POCGLU Skin Status: Shift Pressure Injury Prevention Occiput: No Injury Thoracic Spine: No Injury Sacral: No Injury Ischial - left: No Injury Ischial - right: Redness, Blanchable Heel - left: No Injury Heel - right: No Injury Elbow - left: Redness, Blanchable Elbow - right: Redness, Blanchable Device Sites: O2 sat monitor, SCD's/venodynes, IV sites Other Sites: urostomy; g-tube Relevant medications: reviewed Last Bowel Movement: 03/05/20 Admit Weight: 54.8 kg Estimated body mass index is 18.29 kg/m?? as calculated from the following: Height as of this encounter: 167.6 cm (5' 6). Weight as of this encounter: 51.4 kg (113 lb 5.1 oz). BMI 16.4 [place] Body Weight: 142 lbs / 64.4 kg Usual Body Weight: 140 lbs per patient report, unable to give timeframe Wt Readings from Last 10 Encounters: 03/04/20 51.4 kg (113 lb 5.1 oz) 02/15/20 54.4 kg (120 lb) 01/25/20 54.8 kg (120 lb 12.8 oz) 01/15/20 56.2 kg (124 lb) 12/26/19 56.7 kg (125 lb) 12/19/19 58.5 kg (129 lb) 12/05/19 58.6 kg (129 lb 3.2 oz) 11/14/19 57.6 kg (127 lb) 11/07/19 57.6 kg (127 lb) 10/24/19 57.4 kg (126 lb 9.6 oz) Above weight history suggests 6.5% weight loss in ~2 months classified as severe weight loss Assessment: Estimated needs: Calories: 1650 (~30 kcal/kg admit WT); 1700 (MSJ x1.3) Protein: 82 grams (1.5 g/kg) Nutrition Focused Physical Exam (NFPE): Performed on 02/17/20. Subcutaneous fat loss at Orbital region: Mild Upper arm region (triceps/biceps): Moderate Thoracic and lumbar region (ribs, lower back and maxillary line): Not assessed Lean muscle loss to Yazdanism region (temporalis muscle): None present Clavicle bone region (pectoralis major): Moderate Dorsal hand (interosseous muscle): None present Shoulder (deltoid): Moderate Scapular bone region (latissimus dorsi, trapezius muscles): Not assessed Thigh region (quadriceps muscle): Moderate Posterior calf region (gastrocnemius muscle): Moderate Fluid accumulation: Not assessed Nutrition intake and intake history/Interview: Pt states he is tolerating tube feeding. Not taking much by mouth. Pt declined nutrition concerns Protein-calorie Malnutrition: >5% weight loss in 1 month and Moderate lean muscle loss is consistent with severe protein-calorie malnutrition in the setting of acute illness or injury (Bibiana, JPEN J Parenteral Enteral Nutr. 2012 November; 36(3): 273-83) Nutrition to continue to follow up while inpatient Donte Sheffield RD Pager #:[phone] * Lizbeth Abdi RN - 03/05/2020 11:43 AM EDT OFFICE OF CARE MANAGEMENT Machine Shop Repair Technician Follow-up Note Lizbeth Abdi RN reviewed record and discussed patient with Care Team. Patient plan of care discussed in multidisciplinary rounds and assessment for continuing care and discharge needs. Diagnosis: Bladder Cancer LOS Hospital: 21 days INSURANCE: Payor: MEDICARE / Plan: MEDICARE PART A & B / Product Type: *No Product type* / SECONDARY INSURANCE: MEDICAID [place] DECISION MAKER: Attempt Cardiopulmonary Resuscitation - Inpatient <no information> Current Referral in place: [facility] looking at patient. Updated Indy Bird RN Manufacturing Manager of discharge plan. Transportation: Ambulance will drive patient home via private vehicle when medically ready. Machine Shop Repair Technician to follow with team and family to assist with discharge needs when patient ready for discharge. Lizbeth Abdi RN Case Management pgr [phone] * Roselia Castro PA - 03/05/2020 9:53 AM EDT Urology Inpatient Progress Note Patient Name: Wally Aguilar Patient Age: 69 y.o. Birthdate: 1950 Admit date: 02/13/2020 Attending Physician: Nima Armstrong MD ID: Wally Aguilar is a 69 y.o. male 21 Days Post-Op from a cystoprostatectomy with ileal conduit for MIBC. 24hr events: ?? Tolerating G-tube feeds ?? Reports intermittent persistent abdominal pain, cramping, and nausea. Retching interferes with taking pills PO. ?? Went outside yesterday in wheelchair ?? Continues on abx for crypto & campylobacter +, azithromycin finished on 03/04 ?? Ambulating minimally ?? Seen by Psychiatry, titrating up on methylphenidate ?? atomic process engineer reports patient is participating actively in ostomy appliance changes, needs some prompting and help with cutting with scissors ?? Still with occasional stool incontinence, overall stool frequency is now 1- 2x/day with variable continence O: Last value Range last 24hrs Temperature Temp: 36.4 ??C (97.5 ??F) Temp: [36.3 ??C (97.3 ??F)-36.6 ??C (97.9 ??F)] Heart Rate Heart Rate: 68 Heart Rate: [68-89] Blood Pressure BP: 126/75 BP: (105-126)/(67-75) Respiratory Rate Resp: 20 Resp: [20-21] SpO2 SpO2: 100 % SpO2: [99 %-100 %] 03/04 0701 - 03/05 0700 In: 1455 Out: 1675 [Urine:1675] Physical Exam: General: NAD, resting in bed, withdrawn/flat affect, answers in low voice, monosyllabic HEENT: normocephalic, anicteric sclerae CVS: regular rate Pulm: nonlabored breathing on RA Abd: soft, appropriately tender, non-distended. No guarding. Midline incision is c/d/i. All staplesremoved. DARYN drain site dressing c/d/i. G-tube insertion site c/d/i. : Urostomy pink, healthy appearing, draining CYU. Skin: warm, dry Ext: well perfused, no edema Neuro: Grossly intact, nonfocal Labs: No results for input(s): NA, K, CL, CO2, BUN, CREATININE, GLUCOSE, CALCIUM, MAGNESIUM, PHOS in the last 72 hours. 25-OH Vit D Total (ng/mL) Date Value Status 02/28/2020 15 (L) Final ASSESSMENT: Wally Aguilar is a 69 y.o. male 21 Days Post-Op s/p cystoprostatectomy with ileal conduit for MIBC whose post-op course is complicated by poor PO intake and infectious diarrhea. He has been HDS and afebrile. Diarrhea is improved, still with some loose stool. Stool campylobacter antigenand cryptosporidium found to be positive, will treat for 14 days with azithromycin (02/18 first dose--> 03/04) and nitazoxanide 500mg bid (02/21 --> 03/07); appreciate ID assistance. PT has been participating with ostomy changes. Some mobility, but needs a lot of encouragement. Will work to advance mobility with PT/OT and nursing staff. Patient is now accepting of the idea of rehab, referrals are in and pending. COVID test pending, necessary for admission to rehab. G-tube placed, tube feeding begun for severe protein calorie malnutrition. Repleting Vit D (Nutrition agrees with 50,000 units weekly of D2, suggest continuing through 04/25/2020). Appreciate Psychiatry consult. Have ordered suggested labs and started new medications for depression NOS. Increased Ritalin dose to 12.5 mg BID. Also suggested giving water bolus with Chantix to help avoid GI upset. Appreciate their assistance. Will re-engage GI for assistance with GI symptoms that are interfering with nutrition and PO intake. Goals for today: OOB walk x4 daily Rehab referrals Continue TF's Continue antibiotics for positive stool cultures Continue to work with feed handler and PT Continue to suggest shower, hygiene, activity PLAN: Neuro: pain control: tylenol and tramadol prn, lidoderm patch Psych: Ritalin titrating up. Chantix with water bolus. Card: HDS, Monitor vital signs, [id number], statin, Toprol XL Pulm: albuterol, ambulation, IS. FEN: replete lytes prn, strict I/O's GI: Marinol for appetite stimulant, Regular diet,compazine, protonix, tums Renal/: monitor urine output. Routine ostomy care. Heme: ESR and sed rate elevated as expected given active infection and post surgical ID: Miconazole ointment to scrotum, azithromycin (done 03/04) & nitazoxanide (until 03/07) for infectious diarrhea ([id number] day courses) Endo: Vit D repletion, 50K unis Qweek until 04/25/2020 Home Meds: atorvastatin, metoprolol PPx: lovenox, SCDs, ambulation, ISC, cough, deep breathing Dispo: Stable on floor status. Discussing discharge planning with CM. Will need rehab. Medically ready. Code Status: Attempt Cardiopulmonary Resuscitation - Inpatient NAHID CROWELL 03/05/2020 * Adrienne Horowitz RN - 03/04/2020 6:08 PM EDT Took patient outside in wheelchair. Pt talkative and happy to go out. Ate two small scoops of chocolate almond chip ice cream. * Roselia Castro PA - 03/04/2020 2:48 PM EDT Urology Inpatient Progress Note Patient Name: Wally Aguilar Patient Age: 69 y.o. Birthdate: 1950 Admit date: 02/13/2020 Attending Physician: Nima Armstrong MD ID: Wally Aguilar is a 69 y.o. male 20 Days Post-Op from a cystoprostatectomy with ileal conduit for MIBC. 24hr events: ?? Tolerating G-tube feeds ?? PO intake somewhat improved ?? Continues on abx for crypto & campylobacter +, azithromycin times out today ?? Ambulating minimally; interested in going outside ?? Seen by Psychiatry, started on methylphenidate and melatonin ?? atomic process engineer reports patient is participating actively in ostomy appliance changes, needs some prompting and help with cutting with scissors O: Last value Range last 24hrs Temperature Temp: 36.4 ??C (97.5 ??F) Temp: [36.2 ??C (97.2 ??F)-36.7 ??C (98.1 ??F)] Heart Rate Heart Rate: 86 Heart Rate: -- Blood Pressure BP: 105/67 BP: (105-137)/(66-72) Respiratory Rate Resp: 20 Resp: [16-21] SpO2 SpO2: 100 % SpO2: [99 %-100 %] 03/03 0701 - 03/04 0700 In: 3691 [P.O.:450; I.V.:5] Out: 2625 [Urine:2525] Physical Exam: General: NAD, resting in bed, withdrawn/flat affect, answers in low voice, monosyllabic HEENT: normocephalic, anicteric sclerae CVS: regular rate Pulm: nonlabored breathing on RA Abd: soft, appropriately tender, non-distended. No guarding. Midline incision is c/d/i. DARYN drain site dressing c/d/i. G-tube insertion site c/d/i. : Urostomy pink, healthy appearing, draining CYU. Skin: warm, dry Ext: well perfused, no edema Neuro: Grossly intact, nonfocal Labs: No results for input(s): NA, K, CL, CO2, BUN, CREATININE, GLUCOSE, CALCIUM, MAGNESIUM, PHOS in the last 72 hours. 25-OH Vit D Total (ng/mL) Date Value Status 02/28/2020 15 (L) Final ASSESSMENT: Wally Aguilar is a 69 y.o. male 20 Days Post-Op s/p cystoprostatectomy with ileal conduit for MIBC whose post-op course is complicated by poor PO intake and infectious diarrhea. He has been HDS and afebrile. Diarrhea is improved, still with some loose stool. Stool campylobacter antigenand cryptosporidium found to be positive, will treat for 14 days with azithromycin (02/18 first dose--> 03/04) and nitazoxanide 500mg bid (02/21 --> 03/07); appreciate ID assistance. PT has been participating with ostomy changes. Some mobility, but needs a lot of encouragement. Will work to advance mobility with PT/OT and nursing staff. Patient is now accepting of the idea of rehab, referrals are in and pending G-tube placed, tube feeding begun for severe protein calorie malnutrition. Repleting Vit D (Nutrition agrees with 50,000 units weekly of D2, suggest continuing through 04/25/2020). Appreciate Psychiatry consult. Have ordered suggested labs and started new medications for depression NOS. Increased Ritalin dose To 12.5 mg BID. Also suggested giving water bolus with Chantix to help avoid GI upset. Appreciate their assistance Goals for today: OOB walk x4 daily Continue to encourage inpatient rehab for dispo, will continue to re-evaluate Continue TF's Continue antibiotics for positive stool cultures Continue to work with feed handler and PT Continue to suggest shower, hygiene, activity PLAN: Neuro: pain control: tylenol and tramadol prn, lidoderm patch Psych: Ritalin titrating up Card: HDS, Monitor vital signs, [id number], statin, Toprol XL Pulm: albuterol, ambulation, IS FEN: replete lytes prn, strict I/O's GI: Marinol for appetite stimulant, Regular diet,compazine, protonix, tums Renal/: monitor urine output. Routine ostomy care. Heme: ESR and sed rate elevated as expected given active infection and post surgical ID: Miconazole ointment to scrotum, azithromycin (done today 03/04) & nitazoxanide for infectious diarrhea ([id number] day courses) Endo: Vit D repletion Home Meds: atorvastatin, metoprolol PPx: lovenox, SCDs, ambulation, ISC, cough, deep breathing Dispo: Stable on floor status. Discussing discharge planning with CM. Will need rehab. No referralsplaced as of yet, as patient is not yet medically ready for discharge due to ongoing diarrhea, nutritional status, and depression work up. Code Status: Attempt Cardiopulmonary Resuscitation - Inpatient NAHID CROWELL 03/04/2020 * Lizbeth Abdi RN - 03/04/2020 12:02 PM EDT OFFICE OF CARE MANAGEMENT Machine Shop Repair Technician Follow-up Note Lizbeth Abdi RN reviewed record and discussed patient with Care Team. Patient plan of care discussed in multidisciplinary rounds and assessment for continuing care and discharge needs. Diagnosis: Bladder Cancer LOS Hospital: 20 days INSURANCE: Payor: MEDICARE / Plan: MEDICARE PART A & B / Product Type: *No Product type* / SECONDARY INSURANCE: MEDICAID [place] DECISION MAKER: Attempt Cardiopulmonary Resuscitation - Inpatient <no information> Call placed to [facility] and I spoke with Indy. They are unable to offer a bed to patient today due to staffing. Call placed to [facility] and I spoke with Adrienne. No beds available til the end of week. I spoke with patient and putting in new referrals. Asked Roselia to get new Covid test today in anticipation of discharge tomorrow. No bed offer as of yet. Based on discussions with the multi-disciplinary healthcare team, the patient would benefit from prison level of care at discharge. ?? I have met with the patient to discuss discharge planning needs. ?? I reviewed the different levels of rehab including SNF, swing, acute and LTAC with the patient. ?? The patient has been provided a list of facilities within their preferred geographic area. ?? I have requested that the patient provide at least three choices for referral. ?? The patienthave requested referrals to: 1. [facility] ([facility]) [address] [place] [address] ?? [phone] 2. [facility] [address] [place] [address] ?? [address] [address] ?? [phone] ?? Expected date of discharge: 03/04/2020 Note routed to Mechanical Engineering Technician who will communicate referrals to facilities and provide any required information. Transportation: Ambulance/w/c van will drive patient home via private vehicle when medically ready. Machine Shop Repair Technician to follow with team and family to assist with discharge needs when patient ready for discharge. Due to current public health concerns, I have verbally reviewed Medicare Discharge Rights with patient. Patient verbalizes understanding of right to appeal this discharge if feeling not medically ready. Important Message From Medicare about Your Rights letter was reviewed with patient. Patient given a copy. Patient acknowledged understanding of their right to appeal this discharge if they feel that they are not medically ready. Lizbeth Abdi RN Case Management pgr [phone] * Sarbjit Palencia MD - 03/03/2020 5:41 PM EDT Urology Inpatient Progress Note Patient Name: Wally Aguilar Patient Age: 69 y.o. Birthdate: 1950 Admit date: 02/13/2020 Attending Physician: Nima Armstrong MD ID: Wally Aguilar is a 69 y.o. male 19 Days Post-Op from a cystoprostatectomy with ileal conduit for MIBC. 24hr events: ?? Tolerating G-tube feeds ?? Is more lively, responsive, complaining about food ?? PO intake much improved ?? Showered yesterday! ?? Continues on abx for crypto & campylobacter + ?? Ambulating minimally; interested in going outside ?? Seen by Psychiatry, started on methylphenidate and melatonin ?? atomic process engineer reports patient is participating actively in ostomy appliance changes, needs some prompting and help with cutting with scissors ?? All irvin removed O: Last value Range last 24hrs Temperature Temp: 36.7 ??C (98.1 ??F) Temp: [35.9 ??C (96.6 ??F)-36.7 ??C (98.1 ??F)] Heart Rate Heart Rate: 86 Heart Rate: [78-86] Blood Pressure BP: 105/66 BP: (92-106)/(54-67) Respiratory Rate Resp: 16 Resp: [15-16] SpO2 SpO2: 99 % SpO2: [96 %-99 %] 03/02 0701 - 03/03 0700 In: 740 [P.O.:675; I.V.:5] Out: 2475 [Urine:1975] Physical Exam: General: NAD, resting in bed, withdrawn/flat affect, answers in low voice, monosyllabic, much more alert today compared today HEENT: normocephalic, anicteric sclerae CVS: regular rate Pulm: nonlabored breathing on RA Abd: soft, appropriately tender, non-distended. No guarding. Midline incision is c/d/i. DARYN drain site dressing c/d/i. G-tube insertion site c/d/i. : Urostomy pink, healthy appearing, draining CYU. Skin: warm, dry Ext: well perfused, no edema Neuro: Grossly intact, nonfocal Labs: No results for input(s): NA, K, CL, CO2, BUN, CREATININE, GLUCOSE, CALCIUM, MAGNESIUM, PHOS in the last 72 hours. 25-OH Vit D Total (ng/mL) Date Value Status 02/28/2020 15 (L) Final ASSESSMENT: Wally Aguilar is a 69 y.o. male 19 Days Post-Op s/p cystoprostatectomy with ileal conduit for MIBC whose post-op course is complicated by poor PO intake and infectious diarrhea. He has been HDS and afebrile. Diarrhea is improved, still with some loose stool. Stool campylobacter antigenand cryptosporidium found to be positive, will treat for 14 days with azithromycin (02/18 first dose--> 03/04) and nitazoxanide 500mg bid (02/21 --> 03/07); appreciate ID assistance. PT has been participating with ostomy changes. Some mobility, but needs a lot of encouragement. Will work to advance mobility with PT/OT and nursing staff. Patient is now accepting of the idea of rehab, referrals are in and pending G-tube placed, tube feeding begun for severe protein calorie malnutrition. Repleting Vit D (Nutrition agrees with 50,000 units weekly of D2, suggest continuing through 04/25/2020). Appreciate Psychiatry consult. Have ordered suggested labs and started new medications for depression NOS. Ritalin dose 10 mg BID. Appreciate their assistance Goals for today: OOB walk x4 daily Continue to encourage inpatient rehab for dispo, will continue to re-evaluate Continue TF's Continue antibiotics for positive stool cultures Continue to work with feed handler and PT Continue to suggest shower, hygiene, activity PLAN: Neuro: pain control: tylenol and tramadol prn, lidoderm patch Card: HDS, Monitor vital signs, [id number], statin, Toprol XL Pulm: albuterol, ambulation, IS FEN: replete lytes prn, strict I/O's GI: Marinol for appetite stimulant, Regular diet,compazine, protonix, tums Renal/: monitor urine output. Routine ostomy care. Heme: ESR and sed rate elevated as expected given active infection and post surgical ID: Miconazole ointment to scrotum, azithromycin & nitazoxanide for infectious diarrhea ( day courses) Endo: no active issues Home Meds: atorvastatin, metoprolol PPx: lovenox, SCDs, ambulation, ISC, cough, deep breathing Dispo: Stable on floor status. Discussing discharge planning with CM. Will need rehab. No referralsplaced as of yet, as patient is not yet medically ready for discharge due to ongoing diarrhea, nutritional status, and depression work up. Code Status: Attempt Cardiopulmonary Resuscitation - Inpatient Sarbjit Palencia MD 03/03/2020 Associated attestation - Raimundo Figueroa MD - 03/04/2020 6:58 AM EDT I have seen the patient and reviewed the resident's above history and I agree with the details as written. The assessment and plan were formulated in discussion with me and I agree with them as documented. * Yassine Kraft MD - 03/02/2020 10:04 AM EDT Urology Inpatient Progress Note Patient Name: Wally Aguilar Patient Age: 69 y.o. Birthdate: 1950 Admit date: 02/13/2020 Attending Physician: Nima Armstrong MD ID: Wally Aguilar is a 69 y.o. male 18 Days Post-Op from a cystoprostatectomy with ileal conduit for MIBC. 24hr events: ?? 2 BMs yesterday ?? G-tube has tube feeds running ?? PO intake remains low ?? Refused multiple offers to shower, requesting shower today ?? Continues on abx for crypto & campylobacter + ?? Ambulating minimally ?? Seen by Psychiatry, started on methylphenidate and melatonin ?? atomic process engineer reports patient is participating actively in ostomy appliance changes, needs some prompting and help with cutting with scissors O: Last value Range last 24hrs Temperature Temp: 36.8 ??C (98.2 ??F) Temp: [36.3 ??C (97.3 ??F)-37.1 ??C (98.8 ??F)] Heart Rate Heart Rate: 81 Heart Rate: [70-100] Blood Pressure BP: 117/69 BP: (103-117)/(60-69) Respiratory Rate Resp: 14 Resp: [14-18] SpO2 SpO2: 100 % SpO2: [83 %-100 %] 03/01 0701 - 03/02 0700 In: 1433 [P.O.:125; I.V.:5] Out: 1900 [Urine:1900] Physical Exam: General: NAD, resting in bed, withdrawn/flat affect, answers in low voice, monosyllabic, much more alert today compared today HEENT: normocephalic, anicteric sclerae CVS: regular rate Pulm: nonlabored breathing on RA Abd: soft, appropriately tender, non-distended. No guarding. Midline incision is c/d/i. DARYN drain site dressing c/d/i. G-tube insertion site c/d/i. : Urostomy pink, healthy appearing, draining CYU. Skin: warm, dry Ext: well perfused, no edema Neuro: Grossly intact, nonfocal Labs: No results for input(s): NA, K, CL, CO2, BUN, CREATININE, GLUCOSE, CALCIUM, MAGNESIUM, PHOS in the last 72 hours. 25-OH Vit D Total (ng/mL) Date Value Status 02/28/2020 15 (L) Final ID Recommendations 02/21/2020: - continue azithromycin 500mg daily for 14 days as both treatment of campylobacter as well as cryptosporidium - START nitazoxanide 500mg BID for a total of 14 days of treatment. We have spoken with pharmacy, who is ordering the medication. - continue to monitor stool output 02/26 Psychiatry Assessment: Patient is a 69 YO M with history of bladder cancer (s/p recent chemotherapy), malnutrition, HTN, HLD, peripheral vascular disease, and asthma who presented to [facility] [place]stop[place]ctomy with ileal conduit on 02/12. Patient's presentation is inconsistent with hypoactive delirium, as he has intact consciousness and cognition and his mental status does not appear to be waxing & waning per nursing report/chart review. He does endorse decreased mood, appetite, energy, and motivation with passiveSI and sleep difficulties. ?? Two goals are to improve his sleep and motivation/energy/appetite. Would recommend starting with melatonin 6 mg QHS to re-regulate his circadian rhythms. Can consider adding mirtazapine later to aid in sleep, depression, and appetite but its benefit will likely be delayed. For more immediate effect, would recommend starting methylphenidate 2.5 mg q6AM and qNoon tomorrow, which has the most evidence for providing increase in energy and motivation. If patient is more active during the day (and avoiding daytime naps), this will likely improve the quality of his sleep at night as well. Although in some cases methylphenidate can lead to appetite suppression (usually at significantly higher doses), in these particular cases where depression may be driving anorexia, stimulants appear to actuallyhave a beneficial effect. ?? Would also check TSH, B12/folate, and vitamin D as all can drive depression. ?? Primary Diagnosis: depression NOS ?? Plan/Recommendations: - start methylphenidate 2.5 mg q6AM + 2.5 mg qNoon - start melatonin 6 mg QHS - will consider adding mirtazapine as adjunct at later date - consider obtaining TSH, B12, folate, and vitamin D levels - psychiatry will continue to follow - page Consult Psychiatry (#[phone]) for any additional questions or concerns ASSESSMENT: Wally Aguilar is a 69 y.o. male POD16 s/p cystoprostatectomy with ileal conduit for MIBC whose post-op course is complicated by poor PO intake and infectious diarrhea. He has been HDS and afebrile. Diarrhea is improved, still with some loose stool. Stool campylobacter antigen and cryptosporidium found to be positive, will treat for 14 days with azithromycin (02/18 first dose --> 03/04) and nitazoxanide 500mg bid (02/21 --> 03/07); appreciate ID assistance. PT has been participating with ostomy changes, but lacks visual acuity and manual dexterity to do independently at this point. Does say he has a friend/roommate who can help him at home, but relationship is unclear and we have not spoken with roommate. Will work to advance mobility with PT/OT and nu ing staff. Patient resistant to the idea of rehab, discussed with him this morning and CM will also discuss. G-tube placed, tube feeding begun for severe protein calorie malnutrition. Repleting Vit D (Nutrition agrees with 50,000 units weekly of D2, suggest continuing through 04/25/2020). Appreciate Psychiatry consult. Have ordered suggested labs and started new medications for depression NOS. Ritalin dose 7.5 mg BID today. Suggested that an inflammatory condition associated with chronic illness can present like depression so suggest checking HS-CRP and ESR (ordered). Goals for today: OOB walk x4 daily Continue to encourage inpatient rehab for dispo, will continue to re-evaluate Continue TF's Continue antibiotics for positive stool cultures Continue to work with feed handler and PT Continue to suggest shower, hygiene, activity Remove remaining irvin PLAN: Neuro: pain control: tylenol and tramadol prn, lidoderm patch Card: HDS, Monitor vital signs, [id number], statin, Toprol XL Pulm: albuterol, ambulation, IS FEN: replete lytes prn, strict I/O's GI: Marinol for appetite stimulant, Regular diet,compazine, protonix, tums Renal/: monitor urine output. Routine ostomy care. Heme: ESR and sed rate elevated as expected given active infection and post surgical ID: Miconazole ointment to scrotum, azithromycin & nitazoxanide for infectious diarrhea ([id number] day courses) Endo: no active issues Home Meds: atorvastatin, metoprolol PPx: lovenox, SCDs, ambulation, ISC, cough, deep breathing Dispo: Stable on floor status. Discussing discharge planning with CM. Will need rehab. No referralsplaced as of yet, as patient is not yet medically ready for discharge due to ongoing diarrhea, nutritional status, and depression work up. Code Status: Attempt Cardiopulmonary Resuscitation - Inpatient Yassine Kraft MD 03/02/2020 Associated attestation - Raimundo Figueroa MD - 03/02/2020 12:18 PM EDT I have seen the patient and reviewed the resident's above history and I agree with the details as written. The assessment and plan were formulated in discussion with me and I agree with them as documented. * Roselia Castro PA - 03/01/2020 2:44 PM EDT Urology Inpatient Progress Note Patient Name: Wally Aguilar Patient Age: 69 y.o. Birthdate: 1950 Admit date: 02/13/2020 Attending Physician: Nima Armstrong MD ID: Wally Aguilar is a 69 y.o. male 17 Days Post-Op from a cystoprostatectomy with ileal conduit for MIBC. 24hr events: ?? Patient had one BM today, was able to make it to the commode in time ?? G-tube has tube feeds running, pt reporting some cramping as rate increases ?? PO intake remains low ?? Refused multiple offers to shower yesterday ?? Refusing some PO meds, trying to transition to some meds via G-tube but this is not a durable solution ?? Continues on abx for crypto & campylobacter + ?? Stopping TPN today. ?? Ambulating minimally ?? Reports discomfort at Gtube insertion site ?? Seen by Psychiatry, started on methylphenidate and melatonin, increasing methylphenidate dosing again today (to 7.5 mg BID) ?? Vit D result shows deficiency, repletion underway (nutrition recommends through mid April) ?? atomic process engineer reports patient is participating actively in ostomy appliance changes, needs some prompting and help with cutting with scissors ?? Said he would consider a shower later today. O: Last value Range last 24hrs Temperature Temp: 36.3 ??C (97.3 ??F) Temp: [36.3 ??C (97.3 ??F)-36.6 ??C (97.9 ??F)] Heart Rate Heart Rate: 86 Heart Rate: [85-97] Blood Pressure BP: 112/68 BP: (112-119)/(63-70) Respiratory Rate Resp: 18 Resp: [15-24] SpO2 SpO2: 99 % SpO2: [96 %-99 %] 02/28 0701 - 03/01 0700 In: 2624 [P.O.:400] Out: 2630 [Urine:2630] Physical Exam: General: NAD, resting in bed, withdrawn/flat affect, answers in low voice, monosyllabic, slightly more alert HEENT: normocephalic, anicteric sclerae CVS: regular rate Pulm: nonlabored breathing on RA Abd: soft, appropriately tender, non-distended. No guarding. Midline incision is c/d/i. DARYN drain site dressing c/d/i. G-tube insertion site c/d/i. : Urostomy pink, healthy appearing, draining CYU. Improved scrotal erythema and small excoriationon posterior aspect. Skin: warm, dry Ext: well perfused, no edema Neuro: Grossly intact, nonfocal Labs: Recent Labs 02/28/20 0207 NA 148* K 4.2 CL 112* CO2 23 BUN 67* CREATININE 0.83 GLUCOSE 151 CALCIUM 8.5 MAGNESIUM 1.01 PHOS 4.1 25-OH Vit D Total (ng/mL) Date Value Status 02/28/2020 15 (L) Final ID Recommendations 02/21/2020: - continue azithromycin 500mg daily for 14 days as both treatment of campylobacter as well as cryptosporidium - START nitazoxanide 500mg BID for a total of 14 days of treatment. We have spoken with pharmacy, who is ordering the medication. - continue to monitor stool output 02/26 Psychiatry Assessment: Patient is a 69 YO M with history of bladder cancer (s/p recent chemotherapy), malnutrition, HTN, HLD, peripheral vascular disease, and asthma who presented to [facility] for cystoprostatectomy with ileal conduit on 02/12. Patient's presentation is inconsistent with hypoactive delirium, as he has intact consciousness and cognition and his mental status does not appear to be waxing & waning per nursing report/chart review. He does endorse decreased mood, appetite, energy, and motivation with passiveSI and sleep difficulties. ?? Two goals are to improve his sleep and motivation/energy/appetite. Would recommend starting with melatonin 6 mg QHS to re-regulate his circadian rhythms. Can consider adding mirtazapine later to aid in sleep, depression, and appetite but its benefit will likely be delayed. For more immediate effect, would recommend starting methylphenidate 2.5 mg q6AM and qNoon tomorrow, which has the most evidence for providing increase in energy and motivation. If patient is more active during the day (and avoiding daytime naps), this will likely improve the quality of his sleep at night as well. Although in some cases methylphenidate can lead to appetite suppression (usually at significantly higher doses), in these particular cases where depression may be driving anorexia, stimulants appear to actuallyhave a beneficial effect. ?? Would also check TSH, B12/folate, and vitamin D as all can drive depression. ?? Primary Diagnosis: depression NOS ?? Plan/Recommendations: - start methylphenidate 2.5 mg q6AM + 2.5 mg qNoon - start melatonin 6 mg QHS - will consider adding mirtazapine as adjunct at later date - consider obtaining TSH, B12, folate, and vitamin D levels - psychiatry will continue to follow - page Consult Psychiatry (#[phone]) for any additional questions or concerns ASSESSMENT: Wally Aguilar is a 69 y.o. male POD16 s/p cystoprostatectomy with ileal conduit for MIBC whose post-op course is complicated by poor PO intake and infectious diarrhea. He has been HDS and afebrile. Diarrhea is improved, still with some loose stool. Stool campylobacter antigen and cryptosporidium found to be positive, will treat for 14 days with azithromycin (02/18 first dose --> 03/04) and nitazoxanide 500mg bid (02/21 --> 03/07); appreciate ID assistance. PT has been participating with ostomy changes, but lacks visual acuity and manual dexterity to do independently at this point. Does say he has a friend/roommate who can help him at home, but relationship is unclear and we have not spoken with roommate. Will work to advance mobility with PT/OT and nu ing staff. Patient resistant to the idea of rehab, discussed with him this morning and CM will also discuss. G-tube placed, tube feeding begun for severe protein calorie malnutrition. Repleting Vit D (Nutrition agrees with 50,000 units weekly of D2, suggest continuing through 04/25/2020). Appreciate Psychiatry consult. Have ordered suggested labs and started new medications for depression NOS. Increasing Ritalin dose to 7.5 mg BID today. Suggested that an inflammatory condition associated with chronic illness can present like depression so suggest checking HS-CRP and ESR (ordered). Goals for today: OOB walk x4 daily Continue to encourage inpatient rehab for dispo, will continue to re-evaluate Continue TF's Continue antibiotics for positive stool cultures Continue to work with feed handler and PT Continue to suggest shower, hygiene, activity Remove remaining irvin PLAN: Neuro: pain control: tylenol and tramadol prn, lidoderm patch Card: HDS, Monitor vital signs, [id number], statin, Toprol XL Pulm: albuterol, ambulation, IS FEN: replete lytes prn, strict I/O's GI: Marinol for appetite stimulant, Regular diet,compazine, protonix, tums Renal/: monitor urine output. Routine ostomy care. Heme: no active issues ID: Miconazole ointment to scrotum, azithromycin & nitazoxanide for infectious diarrhea ( day courses) Endo: no active issues Home Meds: atorvastatin, metoprolol PPx: lovenox, SCDs, ambulation, ISC, cough, deep breathing Dispo: Stable on floor status. Discussing discharge planning with CM. Will need rehab. No referralsplaced as of yet, as patient is not yet medically ready for discharge due to ongoing diarrhea, nutritional status, and depression work up. Code Status: Attempt Cardiopulmonary Resuscitation - Inpatient NAHID CROWELL 03/01/2020 * Lizbeth Abdi RN - 03/01/2020 1:22 PM EDT Based on discussions with the multi-disciplinary healthcare team, the patient would benefit from prison level of care at discharge. Patient agreed to put referral in for swing closer to his home. ?? I have met with the patient to discuss discharge planning needs. I have provided the [facility], Office of Care Management letter from the [employer] Adjuster pertaining to rehab referrals. I have also provided a letter describing our affiliations within the [facility] and educatedthem about their right to choose where referrals are. ?? Provided patient with [facility] Star Quality Rating for SNF, LTAC and/or IRF hand out. ?? I reviewed the different levels of rehab including SNF, swing, acute and LTAC with the patient ?? The patient has been provided a list of facilities within their preferred geographic area. ?? I have requested that the patient provide at least three choices for referral. ?? The patient have requested referrals to: 1. [facility]) [address] [place] [address] (Accepts pts only after exhausting all other local SNF options Only pts from their area with PCP at the Hospital ?? Maximum rehab stay of 5 days) 2. [facility] ([place]) [address] [place] [address] ?? (Accepts pts 3-5 days max) ? Expected date of discharge: 03/04/2020 Note routed to Mechanical Engineering Technician who will communicate referrals to facilities and provide any required information. * Dariela Pereira, RD - 03/01/2020 11:26 AM EDT Nutrition Progress Note Patient admitted with bladder CA s/p radical cystoprostatectomy + Ileal Conduit (02/13/20), relevant medical history includes asthma, hypertension, hyperlipidemia, smoker (2 ppd for 50 years). Now w/ new g-tube Wally Aguilar is a 69 y.o. male Reason for intervention: Follow up Nutrition Recommendations: Suggest continueTFs w/ Promote via g-tube w/ goal of 70 ml/hr X 24 hrs to provide 1680 ml formula with 1680 kcal, 104 grams protein, 1409 ml free water from formula and 100% USRDIs.; order pended. Once TF at goal, could consider bolus TFs of 336 ml Promote 5X/day with 60 ml water flush pre and post each feed for tube patency and hydration to provide the same nutrition as above w/ 600 ml additional free water. Would initiate at 10 ml/hr and adv as tolerated by 50 ml per feed to goal Continue Vitamin D supplementation X 9 weeks ( stop date ) Continue marinol, Protonix Continue to offer strawberry CIB w/ whole milk, Magic cup ice cream, Macedonian yogurt, etc- but taking little Will note food prefs in diet office New wt requested- much appreciated Discussed above w/ Willie WHITFIELD via secure chat Active Orders Diet Regular diet Frequency: Effective Now Number of Occurrences: Until Specified Nourishments Adult diet Oral Supplements Boost Breeze (clear liquid) Frequency: 4 Times Daily Number of Occurrences: Until Specified Lab Results Component Value Date NA 148 (H) 02/28/2020 K 4.2 02/28/2020 CL 112 (H) 02/28/2020 CO2 23 02/28/2020 BUN 67 (H) 02/28/2020 CREATININE 0.83 02/28/2020 GFRAA 106 02/28/2020 ESTGFR 91 02/28/2020 MAGNESIUM 1.01 02/28/2020 CALCIUM 8.5 02/28/2020 PHOS 4.1 02/28/2020 AST 32 02/20/2020 ALT 39 02/20/2020 ALKPHOS 100 02/20/2020 BILITOT 0.2 02/20/2020 BILIDIR 0.1 02/20/2020 TRIG 126 01/25/2020 CRP 13.0 02/29/2020 CRP 1.2 01/25/2020 [id number] 02/28/2020 25OHVITD 15 (L) 02/28/2020 SFOLATE 10.9 02/29/2020 IRON 81 01/25/2020 No results found for: POCGLU Skin Status: Shift Pressure Injury Prevention Occiput: No Injury Thoracic Spine: No Injury Sacral: No Injury Ischial - left: No Injury Ischial - right: Redness, Blanchable Heel - left: No Injury Heel - right: No Injury Elbow - left: Redness, Blanchable Elbow - right: Redness, Blanchable Device Sites: O2 sat monitor, IV sites Other Sites: Urostomy Relevant medications: reviewed Last Bowel Movement: 03/01/20 Admit Weight: 54.8 kg Estimated body mass index is 16.4 kg/m?? as calculated from the following: Height as of this encounter: 167.6 cm (5' 6). Weight as of this encounter: 46.1 kg (101 lb 9.6 oz). BMI 16.4 [place] Body Weight: 142 lbs / 64.4 kg Usual Body Weight: 140 lbs per patient report, unable to give timeframe Wt Readings from Last 10 Encounters: 03/01/20 46.1 kg (101 lb 9.6 oz) 02/15/20 54.4 kg (120 lb) 01/25/20 54.8 kg (120 lb 12.8 oz) 01/15/20 56.2 kg (124 lb) 12/26/19 56.7 kg (125 lb) 12/19/19 58.5 kg (129 lb) 12/05/19 58.6 kg (129 lb 3.2 oz) 11/14/19 57.6 kg (127 lb) 11/07/19 57.6 kg (127 lb) 10/24/19 57.4 kg (126 lb 9.6 oz) Above weight history suggests 6.5% weight loss in ~2 months classified as severe weight loss Assessment: Estimated needs: Calories: 1650 (~30 kcal/kg admit WT); 1700 (MSJ x1.3) Protein: 82 grams (1.5 g/kg) Nutrition Focused Physical Exam (NFPE): Performed on 02/17/20. Subcutaneous fat loss at Orbital region: Mild Upper arm region (triceps/biceps): Moderate Thoracic and lumbar region (ribs, lower back and maxillary line): Not assessed Lean muscle loss to Yazdanism region (temporalis muscle): None present Clavicle bone region (pectoralis major): Moderate Dorsal hand (interosseous muscle): None present Shoulder (deltoid): Moderate Scapular bone region (latissimus dorsi, trapezius muscles): Not assessed Thigh region (quadriceps muscle): Moderate Posterior calf region (gastrocnemius muscle): Moderate Fluid accumulation: Not assessed Nutrition intake and intake history/Interview: 03/01/20: TF advancing to goal. Pt c/w GERD and requesting sergio seltzer (not on formulary) but receiivng BID Protonix. Given little p.o. intake am hesitant to try a more concentrated formula as pt is likely at risk of dehydration. Perhaps, once at goal trial of bolus feeds w/ pt sitting upright may help. New wt appreciated- will continue to monitor. 02/28/20: Pt receiving g-tube today. TF recommendations requested. Please see above. Will follow TF adv & tolerance. 02/27/20:Follow up w/ pt with poor p.o. intake and increased nutrition needs. Pt's TPN being cycled tonite and marinol started yesterday. Pt seen to enc p.o. and obtain food prefs. Pt dislikes Ensure but willing to try CIB with whole milk, Macedonian yogurt, Gutierrez Magic Cups. He prefers whole milk so will offer that on his trays. Limited diet hx indicates he drinks a lot of milk & soups at home. Hopefully, the above will help improve his p.o. intake but predict he will still need alt nutrition tomeet his needs. Protein-calorie Malnutrition: >5% weight loss in 1 month and Moderate lean muscle loss is consistent with severe protein-calorie malnutrition in the setting of acute illness or injury (Brandy hartman al, JPEN J Parenteral Enteral Nutr. 2011; 36(3): 273-83) Nutrition to continue to follow up while inpatient DARIELA PEREIRA RD Pager #:[phone] * Roberto Bradshaw, - 02/29/2020 1:20 PM EDT INTERVENTIONAL RADIOLOGY Inpatient Progress Note Admitted 02/13/2020 Procedure(s): Gastrostomy tube placement under fluoroscopic guidance Post-procedure day: #1 Time of patient encounter: 0700 24 Hour Events: No acute events overnight. He was receiving tube feeds when I saw him this morning. Last Value 24 Hour Range Temperature 36.3 ??C (97.3 ??F) Temp: [36.3 ??C (97.3 ??F)-36.8 ??C (98.2 ??F)] Heart Rate 84 Heart Rate: [78-90] Blood Pressure 117/67 BP: (117-124)/(67-70) Respiratory Rate 15 Resp: [14-18] SpO2 98 % SpO2: [95 %-98 %] Physical Exam GEN No distress. Alert. Flat affect. Slow to respond to questions, but answers are appropriate whenhe does eventually respond. Unlabored breathing on room air. ABD + bowel sounds. Mildly tender to palpation around G-tube site. No rebound tenderness. Nondistended Drains/Tubes: Gastrostomy tube 16 Fr balloon retained (placed 02/27): In place without evidence of change in position with tube feeds running. No leakage around drain. Dressing C/D/I. Labs: Reviewed Imaging: No interval imaging. Assessment: 69 y.o. male status post cystoprostatectomy with ileal conduit for MIBC with postoperative course complicated by poor oral intake and infectious diarrhea. Now post-procedure day #1 statuspost percutaneous G-tube placement without evidence of complication.?? Plan: 1) Gastropexy release in 7-10 days (ordered and IR personnel scheduler notified). 2) IR will sign-off at this time. Please contact IR with any questions or concerns. * Zaira Rondon RD - 02/29/2020 12:27 PM EDT Nutrition Progress Note Patient s/p from a cystoprostatectomy with ileal conduit for MIBC Wally Aguilar is a 69 y.o. male Reason for intervention: TPN Comments: Cyclic TPN t provides full nutrition of 1460 calores and 115 g protein in 1248 ml. No TPN changes today. I was able to discuss plan with provider [id number]. Nutrition Support: TPN Medication Recent History (Show up to 3 orders; newest on the left. Changes between the two most recent orders are indicated.) Start date and time 02/28/2020 1800 02/27/2020 1415 02/26/2020 1800 TPN Adult [[id number]] TPN Adult [[id number]] TPN Adult [[id number]] Order Status Active Discontinued Discontinued Last Admin New Bag at 02/28/2020 1727 by Soniya Moss RN New Bag at 02/27/2020 1825 by Soniya Moss RN New Bag at 02/26/2020 1820 by Elsy Haynes RN Additives adult multivitamin 10 mL 10 mL 10 mL adult trace element 0.5 mL 0.5 mL 0.5 mL Electrolytes sodium phosphate 30 mmol 30 mmol 30 mmol potassium chloride -- 20 mEq 20 mEq potassium acetate 20 mEq -- -- sodium acetate -- 120 mEq 120 mEq calcium gluconate 3 mEq 3 mEq 3 mEq magnesium sulfate 12 mEq 12 mEq 12 mEq Dextrose dextrose 70% 147 g 147 g 147 g Amino Acids amino acid 15% no.5 (Clinisol) 115 g 115 g 115 g QS Base sterile water 64.39 mL 4.39 mL 4.39 mL Lipid fat emulsion 30 % 50 g 50 g 50 g Energy Contribution Proteins 460 kcal 460 kcal 460 kcal Dextrose 499.8 kcal 499.8 kcal 499.8 kcal Lipids 501 kcal 501 kcal 501 kcal Total 1,460.8 kcal 1,460.8 kcal 1,460.8 kcal Electrolyte Ion Calculated Amount Sodium 40 mEq 160 mEq 160 mEq Potassium 20 mEq 20 mEq 20 mEq Calcium 3 mEq 3 mEq 3 mEq Magnesium 12 mEq 12 mEq 12 mEq Aluminum -- -- -- Phosphate 32.51 mmol 32.51 mmol 32.51 mmol Chloride -- 20 mEq 20 mEq Acetate 117.37 mEq 217.37 mEq 217.37 mEq Other Total Amino Acid 115 g 115 g 115 g Total Amino Acid/kg 2.09 g/kg 2.09 g/kg 2.09 g/kg Glucose Infusion Rate 3.72 mg/kg/min 3.72 mg/kg/min 3.72 mg/kg/min Osmolarity (Estimated) 1,657.51 1,849.81 1,849.81 Volume 1,248 mL 1,248 mL 1,248 mL Rate 104 mL/hr 104 mL/hr 104 mL/hr Dosing Weight 54.9 kg 54.9 kg 54.9 kg [facility] Results Component Value Date NA 148 (H) 02/28/2020 K 4.2 02/28/2020 CL 112 (H) 02/28/2020 CO2 23 02/28/2020 BUN 67 (H) 02/28/2020 CREATININE 0.83 02/28/2020 GFRAA 106 02/28/2020 ESTGFR 91 02/28/2020 MAGNESIUM 1.01 02/28/2020 CALCIUM 8.5 02/28/2020 PHOS 4.1 02/28/2020 AST 32 02/20/2020 ALT 39 02/20/2020 ALKPHOS 100 02/20/2020 BILITOT 0.2 02/20/2020 BILIDIR 0.1 02/20/2020 TRIG 126 01/25/2020 CRP 1.2 01/25/2020 [id number] 765 02/28/2020 25OHVITD 15 (L) 02/28/2020 SFOLATE 10.9 02/29/2020 IRON 81 01/25/2020 No results found for: POCGLU Skin Status: Shift Pressure Injury Prevention Occiput: No Injury Thoracic Spine: No Injury Sacral: No Injury Ischial - left: Redness, Blanchable Ischial - right: Redness, Blanchable Heel - left: No Injury Heel - right: No Injury Elbow - left: Redness, Blanchable Elbow - right: Redness, Blanchable Device Sites: O2 sat monitor, SCD's/venodynes, IV sites Other Sites: Urostomy Relevant medications: Last Bowel Movement: 02/29/20 Intake/Output Summary (Last 24 hours) at 02/29/2020 1227 Last data filed at 02/29/2020 1200 Gross per 24 hour Intake 1656 ml Output 2905 ml Net -1249 ml Admit Weight: 54.8 kg Estimated body mass index is 18.3 kg/m?? as calculated from the following: Height as of this encounter: 167.6 cm (5' 6). Weight as of this encounter: 51.4 kg (113 lb 6.4 oz). [place] Body Weight: 63.8 kg Usual Body Weight: 58.5 kg Wt Readings from Last 10 Encounters: 02/29/20 51.4 kg (113 lb 6.4 oz) 02/15/20 54.4 kg (120 lb) 01/25/20 54.8 kg (120 lb 12.8 oz) 01/15/20 56.2 kg (124 lb) 12/26/19 56.7 kg (125 lb) 12/19/19 58.5 kg (129 lb) 12/05/19 58.6 kg (129 lb 3.2 oz) 11/14/19 57.6 kg (127 lb) 11/07/19 57.6 kg (127 lb) 10/24/19 57.4 kg (126 lb 9.6 oz) Assessment: Estimated needs: Calories: 25-30 (0883-3271 kcal/kg) Protein: 2 grams (115g/kg) Nutrition Focused Physical Exam (NFPE): Performed on 02/19/20. Subcutaneous fat loss at Orbital region: Mild Upper arm region (triceps/biceps): Mild Thoracic and lumbar region (ribs, lower back and maxillary line): Mild Lean muscle loss to Yazdanism region (temporalis muscle): Moderate Clavicle bone region (pectoralis major): Moderate Dorsal hand (interosseous muscle): Moderate Shoulder (deltoid): Moderate Scapular bone region (latissimus dorsi, trapezius muscles): Not assessed Thigh region (quadriceps muscle): Mild Posterior calf region (gastrocnemius muscle): Mild Fluid accumulation: None present Nutrition intake and intake history/Interview: No nutrition in more than a week and 11 # weight loss(8% UBW) in last 2 months per eDH flowsheets and patient. Protein-calorie Malnutrition: <75% of estimated energy requirement for >7days, 7.5% weight loss in 3 months and Moderate lean muscle loss is consistent with severe protein-calorie malnutrition in the setting of acute illness or injury (Brandy hartman al, JPEN J Parenteral Enteral Nutr. 2011; 36(3): 273-83) Nutrition to continue to follow up while inpatient. ZAIRA RONDON RD Pager #[phone] * Roselia Castro PA - 02/29/2020 11:03 AM EDT Urology Inpatient Progress Note Patient Name: Wally Aguilar Patient Age: 69 y.o. Birthdate: 1950 Admit date: 02/13/2020 Attending Physician: Nima Armstrong MD ID: Wally Aguilar is a 69 y.o. male 16 Days Post-Op from a cystoprostatectomy with ileal conduit for MIBC. 24hr events: ?? Patient continues with liquid stools, no warning, incontinent in bed ?? G-tube placed yesterday in IR, started TF's last night, titrating up to goal, denies nausea ?? PO intake remains low ?? Refused several meds this morning, complains of taste and swallowing issues. Was seen by AUTOMOBILE BODY REPAIRER HELPER several weeks ago, no mechanical issues found. ?? Loose incontinent BM x 3 in past 24 hours, crypto & campylobacter + ?? Remains on TPN, cycled overnight ?? Ambulating minimally ?? Denies pain ?? Seen by Psychiatry, started on methylphenidate and melatonin, increasing methylphenidate dosing today ?? Vit D result shows deficiency ?? atomic process engineer reports patient is participating actively in ostomy appliance changes, needs some prompting and help with cutting with scissors O: Last value Range last 24hrs Temperature Temp: 36.5 ??C (97.7 ??F) Temp: [36.3 ??C (97.3 ??F)-36.8 ??C (98.2 ??F)] Heart Rate Heart Rate: 89 Heart Rate: [68-90] Blood Pressure BP: 118/67 BP: (89-124)/(49-70) Respiratory Rate Resp: 15 Resp: [14-18] SpO2 SpO2: 98 % SpO2: [95 %-100 %] 02/27 0701 - 02/28 0700 In: 1656 [P.O.:250] Out: 2500 [Urine:2500] Physical Exam: General: NAD, resting in bed,withdrawn/flat affect, answers in low voice, monosyllabic HEENT: normocephalic, anicteric sclerae CVS: regular rate Pulm: nonlabored breathing on RA Abd: soft, appropriately tender, non-distended. No guarding. Midline incision is c/d/i. DARYN drain site dressing c/d/i : Urostomy pink, healthy appearing, draining CYU. Improved scrotal erythema and small excoriationon posterior aspect. Skin: warm, dry Ext: well perfused, no edema Neuro: Grossly intact, nonfocal Labs: Recent Labs 02/28/20 0207 NA 148* K 4.2 CL 112* CO2 23 BUN 67* CREATININE 0.83 GLUCOSE 151 CALCIUM 8.5 MAGNESIUM 1.01 PHOS 4.1 25-OH Vit D Total (ng/mL) Date Value Status 02/28/2020 15 (L) Final ID Recommendations 02/21/2020: - continue azithromycin 500mg daily for 14 days as both treatment of campylobacter as well as cryptosporidium - START nitazoxanide 500mg BID for a total of 14 days of treatment. We have spoken with pharmacy, who is ordering the medication. - continue to monitor stool output 02/26 Psychiatry Assessment: Patient is a 69 YO M with history of bladder cancer (s/p recent chemotherapy), malnutrition, HTN, HLD, peripheral vascular disease, and asthma who presented to [facility] for cystoprostatectomy with ileal conduit on 02/12. Patient's presentation is inconsistent with hypoactive delirium, as he has intact consciousness and cognition and his mental status does not appear to be waxing & waning per nursing report/chart review. He does endorse decreased mood, appetite, energy, and motivation with passiveSI and sleep difficulties. ?? Two goals are to improve his sleep and motivation/energy/appetite. Would recommend starting with melatonin 6 mg QHS to re-regulate his circadian rhythms. Can consider adding mirtazapine later to aid in sleep, depression, and appetite but its benefit will likely be delayed. For more immediate effect, would recommend starting methylphenidate 2.5 mg q6AM and qNoon tomorrow, which has the most evidence for providing increase in energy and motivation. If patient is more active during the day (and avoiding daytime naps), this will likely improve the quality of his sleep at night as well. Although in some cases methylphenidate can lead to appetite suppression (usually at significantly higher doses), in these particular cases where depression may be driving anorexia, stimulants appear to actuallyhave a beneficial effect. ?? Would also check TSH, B12/folate, and vitamin D as all can drive depression. ?? Primary Diagnosis: depression NOS ?? Plan/Recommendations: - start methylphenidate 2.5 mg q6AM + 2.5 mg qNoon - start melatonin 6 mg QHS - will consider adding mirtazapine as adjunct at later date - consider obtaining TSH, B12, folate, and vitamin D levels - psychiatry will continue to follow - page Consult Psychiatry (#[phone]) for any additional questions or concerns ASSESSMENT: Wally Aguilar is a 69 y.o. male POD16 s/p cystoprostatectomy with ileal conduit for MIBC whose post-op course is complicated by poor PO intake and infectious diarrhea. He has been HDS and afebrile. Diarrhea is improved, still with some loose stool. Stool campylobacter antigen and cryptosporidium found to be positive, will treat for 14 days with azithromycin (02/18 first dose --> 03/04) and nitazoxanide 500mg bid (02/21 --> 03/07); appreciate ID assistance. Will contact ID again today given that he continues to have loose stool with no control over stool. Will try to administer antibiotics via Gtube if he is not feeling able to swallow them. PT has been participating with ostomy changes, but lacks visual acuity and manual dexterity to do independently at this point. Does say he has a friend/roommate who can help him at home, but relationship is unclear and we have not spoken with roommate. Will work to advance mobility with PT/OT and [facility] staff. Patient resistant to the idea of rehab, discussed with him this morning and CM will also discuss. G-tube placed, tube feeding begun. Will continue with TPN for now given severe protein calorie malnutrition. Appreciate Psychiatry consult. Have ordered suggested labs and started new medications for depression NOS. Increasing Ritalin dose to 5 mg BID today. Also repleting vit D. Suggested that an inflammatory condition associated with chronic illness can present like depression so suggest checking HS-CRPand ESR (ordered). Goals for today: OOB walk x4 daily Continue to encourage inpatient rehab for dispo, will continue to re-evaluate Continue TPN, cycling overnight, continue TF's Continue antibiotics for positive stool cultures Continue to work with feed handler and PT PLAN: Neuro: pain control: tylenol and tramadol prn, lidoderm patch Card: HDS, Monitor vital signs, [id number], statin, Toprol XL Pulm: albuterol, ambulation, IS FEN: replete lytes prn, strict I/O's GI: Marinol for appetite stimulant, TPN Adult Regular diet,compazine, protonix, tums Renal/: monitor urine output. Routine ostomy care. Heme: no active issues ID: Miconazole ointment to scrotum, azithromycin & nitazoxanide for infectious diarrhea (14 daycourses) Endo: no active issues Home Meds: atorvastatin, metoprolol PPx: lovenox, SCDs, ambulation, ISC, cough, deep breathing Dispo: Stable on floor status. Discussing discharge planning with CM. Will need rehab. No referralsplaced as of yet, as patient is not yet medically ready for discharge due to ongoing diarrhea, nutritional status, and depression work up. Code Status: Attempt Cardiopulmonary Resuscitation - Inpatient NAHID CROWELL 02/29/2020 * Dariela Pereira, RD - 02/28/2020 1:03 PM EDT Nutrition Progress Note Patient admitted with bladder CA s/p radical cystoprostatectomy + Ileal Conduit (02/13/20), relevant medical history includes asthma, hypertension, hyperlipidemia, smoker (2 ppd for 50 years). Now w/ new g-tube Wally Aguilar is a 69 y.o. male Reason for intervention: Follow up Nutrition Recommendations: Suggest initiate TFs w/ Promote via g-tube w/ goal of 70 ml/hr X 24 hrs to provide 1680 ml formula with 1680 kcal, 104 grams protein, 1409 ml free water from formula and 100% USRDIs.; order pended. Once TF at goal, could consider bolus TFs of 336 ml Promote 5X/day with 60 ml water flush pre and post each feed for tube patency and hydration to provide theh same nutrition as above w/ 600 ml additional free waater Continue TPN- being cycled Continue marinol Pt agreeable to trial strawberry CIB w/ whole milk, Magic cup ice cream, Macedonian yogurt, etc Will offer whole milk on all trays Will note food prefs in diet office New wt requested- much appreciated Discussed above w/ A. Gloria WHITFIELD via secure chat Active Orders Diet NPO diet (Give Meds) Frequency: Effective Midnight Number of Occurrences: Until Specified Nourishments Adult diet Oral Supplements Boost Breeze (clear liquid) Frequency: 4 Times Daily Number of Occurrences: Until Specified Lab Results Component Value Date NA 148 (H) 02/28/2020 K 4.2 02/28/2020 CL 112 (H) 02/28/2020 CO2 23 02/28/2020 BUN 67 (H) 02/28/2020 CREATININE 0.83 02/28/2020 GFRAA 106 02/28/2020 ESTGFR 91 02/28/2020 MAGNESIUM 1.01 02/28/2020 CALCIUM 8.5 02/28/2020 PHOS 4.1 02/28/2020 AST 32 02/20/2020 ALT 39 02/20/2020 ALKPHOS 100 02/20/2020 BILITOT 0.2 02/20/2020 BILIDIR 0.1 02/20/2020 TRIG 126 01/25/2020 CRP 1.2 01/25/2020 IRON 81 01/25/2020 No results found for: POCGLU Skin Status: Shift Pressure Injury Prevention Occiput: No Injury Thoracic Spine: No Injury Sacral: No Injury Ischial - left: No Injury Ischial - right: No Injury Heel - left: No Injury Heel - right: No Injury Elbow - left: No Injury Elbow - right: No Injury Device Sites: O2 sat monitor, SCD's/venodynes, IV sites Other Sites: Urostomy Relevant medications: reviewed Last Bowel Movement: 02/28/20 Admit Weight: 54.8 kg Estimated body mass index is 19.53 kg/m?? as calculated from the following: Height as of this encounter: 167.6 cm (5' 6). Weight as of this encounter: 54.9 kg (121 lb). [place] Body Weight: 142 lbs / 64.4 kg Usual Body Weight: 140 lbs per patient report, unable to give timeframe Wt Readings from Last 10 Encounters: 02/21/20 54.9 kg (121 lb) 02/15/20 54.4 kg (120 lb) 01/25/20 54.8 kg (120 lb 12.8 oz) 01/15/20 56.2 kg (124 lb) 12/26/19 56.7 kg (125 lb) 12/19/19 58.5 kg (129 lb) 12/05/19 58.6 kg (129 lb 3.2 oz) 11/14/19 57.6 kg (127 lb) 11/07/19 57.6 kg (127 lb) 10/24/19 57.4 kg (126 lb 9.6 oz) Above weight history suggests 6.5% weight loss in ~2 months classified as severe weight loss Assessment: Estimated needs: Calories: 1650 (~30 kcal/kg admit WT); 1700 (MSJ x1.3) Protein: 82 grams (1.5 g/kg) Nutrition Focused Physical Exam (NFPE): Performed on 02/17/20. Subcutaneous fat loss at Orbital region: Mild Upper arm region (triceps/biceps): Moderate Thoracic and lumbar region (ribs, lower back and maxillary line): Not assessed Lean muscle loss to Yazdanism region (temporalis muscle): None present Clavicle bone region (pectoralis major): Moderate Dorsal hand (interosseous muscle): None present Shoulder (deltoid): Moderate Scapular bone region (latissimus dorsi, trapezius muscles): Not assessed Thigh region (quadriceps muscle): Moderate Posterior calf region (gastrocnemius muscle): Moderate Fluid accumulation: Not assessed Nutrition intake and intake history/Interview: 02/28/20: Pt receiving g-tube today. TF recommendations requested. Please see above. Will follow TF adv & tolerance. 02/27/20:Follow up w/ pt with poor p.o. intake and increased nutrition needs. Pt's TPN being cycled tonite and marinol started yesterday. Pt seen to enc p.o. and obtain food prefs. Pt dislikes Ensure but willing to try CIB with whole milk, [place] yogurt, Gutierrez Magic Cups. He prefers whole milk so will offer that on his trays. Limited diet hx indicates he drinks a lot of milk & soups at home. Hopefully, the above will help improve his p.o. intake but predict he will still need alt nutrition tomeet his needs. Protein-calorie Malnutrition: >5% weight loss in 1 month and Moderate lean muscle loss is consistent with severe protein-calorie malnutrition in the setting of acute illness or injury (Bibiana, JPEN J Parenteral Enteral Nutr. 2011; 36(3): 273-83) Nutrition to continue to follow up while inpatient DARIELA PEREIRA RD Pager #:[phone] * Zaira Rondon RD - 02/28/2020 12:19 PM EDT Nutrition Progress Note Patient s/p from a cystoprostatectomy with ileal conduit for MIBC Wally Aguilar is a 69 y.o. male Reason for intervention: TPN Comments: Cyclic TPN t provides full nutrition of 1460 calores and 115 g protein in 1248 ml. Decreased sodium from 160 to 40 mEq. I was able to discuss plan with provider [id number]. Nutrition Support: TPN Medication Recent History (Show up to 3 orders; newest on the left. Changes between the two most recent orders are indicated.) Start date and time 02/28/2020 1800 02/27/2020 1415 02/26/2020 1800 TPN Adult [[id number]] TPN Adult [[id number]] TPN Adult [[id number]] Order Status Active Discontinued Discontinued Last Admin New Bag at 02/27/20201824 by Soniya Moss RN New Bag at 02/26/20201819 by Elsy Haynes RN Additives adult multivitamin 10 mL 10 mL 10 mL adult trace element 0.5 mL 0.5 mL 0.5 mL Electrolytes sodium phosphate 30 mmol 30 mmol 30 mmol potassium chloride -- 20 mEq 20 mEq potassium acetate 20 mEq -- -- sodium acetate -- 120 mEq 120 mEq calcium gluconate 3 mEq 3 mEq 3 mEq magnesium sulfate 12 mEq 12 mEq 12 mEq Dextrose dextrose 70% 147 g 147 g 147 g Amino Acids amino acid 15% no.5 (Clinisol) 115 g 115 g 115 g QS Base sterile water 64.39 mL 4.39 mL 4.39 mL Lipid fat emulsion 30 % 50 g 50 g 50 g Energy Contribution Proteins 460 kcal 460 kcal 460 kcal Dextrose 499.8 kcal 499.8 kcal 499.8 kcal Lipids 501 kcal 501 kcal 501 kcal Total 1,460.8 kcal 1,460.8 kcal 1,460.8 kcal Electrolyte Ion Calculated Amount Sodium 40 mEq 160 mEq 160 mEq Potassium 20 mEq 20 mEq 20 mEq Calcium 3 mEq 3 mEq 3 mEq Magnesium 12 mEq 12 mEq 12 mEq Aluminum -- -- -- Phosphate 32.51 mmol 32.51 mmol 32.51 mmol Chloride -- 20 mEq 20 mEq Acetate 117.37 mEq 217.37 mEq 217.37 mEq Other Total Amino Acid 115 g 115 g 115 g Total Amino Acid/kg 2.09 g/kg 2.09 g/kg 2.09 g/kg Glucose Infusion Rate 3.72 mg/kg/min 3.72 mg/kg/min 3.72 mg/kg/min Osmolarity (Estimated) 1,657.51 1,849.81 1,849.81 Volume 1,248 mL 1,248 mL 1,248 mL Rate 104 mL/hr 104 mL/hr 104 mL/hr Dosing Weight 54.9 kg 54.9 kg 54.9 kg [facility] Results Component Value Date NA 148 (H) 02/28/2020 K 4.2 02/28/2020 CL 112 (H) 02/28/2020 CO2 23 02/28/2020 BUN 67 (H) 02/28/2020 CREATININE 0.83 02/28/2020 GFRAA 106 02/28/2020 ESTGFR 91 02/28/2020 MAGNESIUM 1.01 02/28/2020 CALCIUM 8.5 02/28/2020 PHOS 4.1 02/28/2020 AST 32 02/20/2020 ALT 39 02/20/2020 ALKPHOS 100 02/20/2020 BILITOT 0.2 02/20/2020 BILIDIR 0.1 02/20/2020 TRIG 126 01/25/2020 CRP 1.2 01/25/2020 IRON 81 01/25/2020 No results found for: POCGLU Skin Status: Shift Pressure Injury Prevention Occiput: No Injury Thoracic Spine: No Injury Sacral: No Injury Ischial - left: No Injury Ischial - right: No Injury Heel - left: No Injury Heel - right: No Injury Elbow - left: No Injury Elbow - right: No Injury Device Sites: O2 sat monitor, SCD's/venodynes, IV sites Other Sites: Urostomy Relevant medications: Last Bowel Movement: 02/28/20 Intake/Output Summary (Last 24 hours) at 02/28/2020 1219 Last data filed at 02/28/2020 0745 Gross per 24 hour Intake 819 ml Output 2300 ml Net -1481 ml Admit Weight: 54.8 kg Estimated body mass index is 19.53 kg/m?? as calculated from the following: Height as of this encounter: 167.6 cm (5' 6). Weight as of this encounter: 54.9 kg (121 lb). [place] Body Weight: 63.8 kg Usual Body Weight: 58.5 kg Wt Readings from Last 10 Encounters: 02/21/20 54.9 kg (121 lb) 02/15/20 54.4 kg (120 lb) 01/25/20 54.8 kg (120 lb 12.8 oz) 01/15/20 56.2 kg (124 lb) 12/26/19 56.7 kg (125 lb) 12/19/19 58.5 kg (129 lb) 12/05/19 58.6 kg (129 lb 3.2 oz) 11/14/19 57.6 kg (127 lb) 11/07/19 57.6 kg (127 lb) 10/24/19 57.4 kg (126 lb 9.6 oz) Assessment: Estimated needs: Calories: 25-30 (2743-6668 kcal/kg) Protein: 2 grams (115g/kg) Nutrition Focused Physical Exam (NFPE): Performed on 02/19/20. Subcutaneous fat loss at Orbital region: Mild Upper arm region (triceps/biceps): Mild Thoracic and lumbar region (ribs, lower back and maxillary line): Mild Lean muscle loss to Yazdanism region (temporalis muscle): Moderate Clavicle bone region (pectoralis major): Moderate Dorsal hand (interosseous muscle): Moderate Shoulder (deltoid): Moderate Scapular bone region (latissimus dorsi, trapezius muscles): Not assessed Thigh region (quadriceps muscle): Mild Posterior calf region (gastrocnemius muscle): Mild Fluid accumulation: None present Nutrition intake and intake history/Interview: No nutrition in more than a week and 11 # weight loss(8% UBW) in last 2 months per eDH flowsheets and patient. Protein-calorie Malnutrition: <75% of estimated energy requirement for >7days, 7.5% weight loss in 3 months and Moderate lean muscle loss is consistent with severe protein-calorie malnutrition in the setting of acute illness or injury (Brandy et al, JPEN J Parenteral Enteral Nutr. 2011; 36(3): 273-83) Nutrition to continue to follow up while inpatient. ZAIRA RONDON RD Pager #[phone] * Lizbeth Abdi RN - 02/28/2020 11:33 AM EDT OFFICE OF CARE MANAGEMENT Machine Shop Rep[employer] Technician Follow-up Note Lizbeth Abdi RN reviewed record and discussed patient with Care Team. Patient plan of care discussed in multidisciplinary rounds and assessment for continuing care and discharge needs. Diagnosis: Bladder Cancer LOS Hospital: 15 days INSURANCE: Payor: MEDICARE / Plan: MEDICARE PART A & B / Product Type: *No Product type* / SECONDARY INSURANCE: MEDICAID [place] DECISION MAKER: Attempt Cardiopulmonary Resuscitation - Inpatient <no information> Patient continues to require hospitalization. Per team, patient requires inpatient status r/t requiring a g-tube placement, recovery from infectious diarrhea . Discharge date planned for 03/04/2020 ifmedically ready. Current Ref[facility] [place] to support tube feeds Transportation: Tray Hdez will drive patient home via private vehicle when medically ready. Support: Tray Casanovainda Machine Shop Repair Technician to follow with team and family to assist with discharge needs when patient ready for discharge. Lizbeth Abdi RN Case Management pgr [phone] * Gail Lara RN - 02/28/2020 10:38 AM EDT ANGIO NURSING DATABASE Name: WALLY AGUILAR Date of : 1950 AGE: 69 y.o. Address: [address] [address] (home) Mobile: Telephone Information: Referring Provider: Subhash Dowling REASON FOR VISIT: Order Questions Answers Is the patient on anticoagulant / anitplatelet therapy ? Low Molecular Weight Heparin Reason for exam and clinical history: Patient needs nutritional support after cystectomy, poor appetite. Exam/Procedure requested: G tube placement. Allergies Allergen Reactions ??? Wellbutrin [Bupropion Hcl] Other (See Comments) Unknown on pt's chart from outside facility Pertinent PMH: Patient Active Problem List Diagnosis Code ??? Malignant neoplasm of overlapping sites of bladder C67.8 ??? 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 Ostomy nurse consultation Z71.89 ??? HTN (hypertension) I10 ??? PVD (peripheral vascular disease) I73.9 ??? Alcohol abuse F10.10 ??? Smokes 2 packs of cigarettes per day F17.210 ??? HLD (hyperlipidemia) E78.5 ??? COPD, moderate J44.9 ??? Weight loss, abnormal R63.4 ??? Limited literacy Z55.0 ??? Port-A-Cath in place Z95.828 ??? Bladder cancer C67.9 ??? Tobacco use disorder F17.200 ??? Severe protein-calorie malnutrition E43 Date/Procedure ?Meds given/comments 11/27/19 Single lumen Mediport placement Ancef 2 g IV Fentanyl 100 mcg IV Versed 2 mg IV?? 01/31/20 Left Retroperitoneal Biopsy Fentanyl 150 mcg IV, Versed 3 mg IV 02/28/20 G-Tube placement Ancef 2gm IV Glucagon 0.5mg IV X 2 Fentanyl 175mcg IV Versed 1.5mg IV ? Laboratory Results: Lab Results Component Value Date INR 1.1 02/19/2020 Lab Results Component Value Date CREATININE 0.75 (L) 02/25/2020 Lab Results Component Value Date K 4.7 02/25/2020 Lab Results Component Value Date PLATELET 103 (L) 02/24/2020 * Gail Lara RN - 02/28/2020 10:22 AM EDT To procedure room 4 via stretcher. Onto table supine (position) All monitors, O2, safety strap in place. Med's per protocol. @ 1032 NG tube placed under fluro by DO Bradshaw, for purposes of procedure only. Tolerated well. @ 1114 NG Tube removed. Tolerated well. * Roselia Castro PA - 02/28/2020 8:19 AM EDT Urology Inpatient Progress Note Patient Name: Wally Aguilar Patient Age: 69 y.o. Birthdate: 1950 Admit date: 02/13/2020 Attending Physician: Nima Armstrong MD ID: Wally Aguilar is a 69 y.o. male 15 Days Post-Op from a cystoprostatectomy with ileal conduit for MIBC. 24hr events: ?? No overnight events ?? Patient is scheduled for G-tube in IR today ?? PO intake remains low, did discuss choices with nutrition yesterday and ate strawberry IC ?? Started on marinol ?? Loose incontinent BM x 3 in past 24 hours, crypto & campylobacter + ?? Remains on TPN, cycled overnight ?? Ambulating minimally ?? Pain well controlled ?? Seen by Psychiatry, started on methylphenidate and melatonin O: Last value Range last 24hrs Temperature Temp: 36.4 ??C (97.5 ??F) Temp: [36.3 ??C (97.3 ??F)-36.6 ??C (97.9 ??F)] Heart Rate Heart Rate: 82 Heart Rate: -- Blood Pressure BP: 126/67 BP: (118-130)/(63-67) Respiratory Rate Resp: 22 Resp: [22-27] SpO2 SpO2: 98 % SpO2: [95 %-99 %] 02/26 0701 - 02/27 0700 In: 919 [P.O.:320] Out: 2525 [Urine:2525] Physical Exam: General: NAD, resting in bed,withdrawn/flat affect, more awake than usual this morning HEENT: normocephalic, anicteric sclerae CVS: regular rate Pulm: nonlabored breathing on RA Abd: soft, appropriately tender, non-distended. No guarding. Midline incision is c/d/i. DARYN drain site dressing c/d/i : Urostomy pink, healthy appearing, draining CYU. Improved scrotal erythema and small excoriationon posterior aspect. Skin: warm, dry Ext: well perfused, no edema Neuro: Grossly intact, nonfocal Labs: Recent Labs 02/28/20 0207 NA 148* K 4.2 CL 112* CO2 23 BUN 67* CREATININE 0.83 GLUCOSE 151 CALCIUM 8.5 MAGNESIUM 1.01 PHOS 4.1 ID Recommendations 02/21/2020: - continue azithromycin 500mg daily for 14 days as both treatment of campylobacter as well as cryptosporidium - START nitazoxanide 500mg BID for a total of 14 days of treatment. We have spoken with pharmacy, who is ordering the medication. - continue to monitor stool output 02/26 Psychiatry Assessment: Patient is a 69 YO M with history of bladder cancer (s/p recent chemotherapy), malnutrition, HTN, HLD, peripheral vascular disease, and asthma who presented to [facility] for cystoprostatectomy with ileal conduit on 02/12. Patient's presentation is inconsistent with hypoactive delirium, as he has intact consciousness and cognition and his mental status does not appear to be waxing & waning per nursing report/chart review. He does endorse decreased mood, appetite, energy, and motivation with passiveSI and sleep difficulties. ?? Two goals are to improve his sleep and motivation/energy/appetite. Would recommend starting with melatonin 6 mg QHS to re-regulate his circadian rhythms. Can consider adding mirtazapine later to aid in sleep, depression, and appetite but its benefit will likely be delayed. For more immediate effect, would recommend starting methylphenidate 2.5 mg q6AM and qNoon tomorrow, which has the most evidence for providing increase in energy and motivation. If patient is more active during the day (and avoiding daytime naps), this will likely improve the quality of his sleep at night as well. Although in some cases methylphenidate can lead to appetite suppression (usually at significantly higher doses), in these particular cases where depression may be driving anorexia, stimulants appear to actuallyhave a beneficial effect. ?? Would also check TSH, B12/folate, and vitamin D as all can drive depression. ?? Primary Diagnosis: depression NOS ?? Plan/Recommendations: - start methylphenidate 2.5 mg q6AM + 2.5 mg qNoon - start melatonin 6 mg QHS - will consider adding mirtazapine as adjunct at later date - consider obtaining TSH, B12, folate, and vitamin D levels - psychiatry will continue to follow - page Consult Psychiatry (#[phone]) for any additional questions or concerns ASSESSMENT: Wally Aguilar is a 69 y.o. male POD15 s/p cystoprostatectomy with ileal conduit for MIBC whose post-op course is complicated by poor PO intake and infectious diarrhea. He has been HDS and afebrile. Diarrhea is improved, still with some loose stool. Stool campylobacter antigen and cryptosporidium found to be positive, will treat for 14 days with azithromycin (02/18 first dose --> 03/04) and nitazoxanide 500mg bid (02/21 --> 03/07); appreciate ID assistance. TPN for severe protein calorie malnutrition. Ordered calorie count to better ascertain his status - initial counts are poor(~200cc, needs ~ 1650, see nutrition note). Ordered miconazole tid for erythematous scrotum likely irritated from persistent contact with diarrhea. PT has been participating with ostomy changes, but lacks visual acuity and manual dexterity to do independently at this point. Does say he has a friend/roommate who can help him at home. Will work toadvance mobility with PT/OT and nursing staff. Will continue to discuss rehab with patient. G-tube scheduled in IR today. Will consult nutrition for tube feed recs. Appreciate Psychiatry consult. Have ordered suggested labs and started new medications for depression NOS. Goals for today: OOB walk x4 daily Continue to encourage inpatient rehab for dispo, will continue to re-evaluate Continue TPN, cycling overnight Continue antibiotics for positive stool cultures Continue to work with feed handler and PT PLAN: Neuro: pain control: tylenol and tramadol prn, lidoderm patch Card: HDS, Monitor vital signs, [id number], statin, Toprol XL Pulm: albuterol, ambulation, IS FEN: replete lytes prn, strict I/O's GI: Marinol for appetite stimulant, TPN Adult NPO diet (Give Meds),compazine, protonix, tums Renal/: monitor urine output. Routine ostomy care. Heme: no active issues ID: Miconazole ointment to scrotum, azithromycin & nitazoxanide for infectious diarrhea (14 daycourses) Endo: no active issues Home Meds: atorvastatin, metoprolol PPx: lovenox, SCDs, ambulation, ISC, cough, deep breathing Dispo: Stable on floor status. Discussing discharge planning with CM. Code Status: Attempt Cardiopulmonary Resuscitation - Inpatient NAHID CROWELL 02/28/2020 * Dariela Pereira RD - 02/27/2020 2:43 PM EDT Nutrition Progress Note Patient admitted with bladder CA s/p radical cystoprostatectomy + Ileal Conduit (02/13/20), relevant medical history includes asthma, hypertension, hyperlipidemia, smoker (2 ppd for 50 years). Wally Aguilar is a 69 y.o. male Reason for intervention: Follow up Nutrition Recommendations: Continue TPN- being cycled tonite Continue marinol Pt agreeable to trial strawberry CIB w/ whole milk, Magic cup ice cream, Macedonian yogurt, etc Will offer whole milk on all trays Will note food prefs in diet office New wt requested- much appreciated Discussed above w/ Willie WHITFIELD via secure chat Active Orders Diet Regular diet Frequency: Effective Now Number of Occurrences: Until Specified Nourishments Adult diet Oral Supplements Boost Breeze (clear liquid) Frequency: 4 Times Daily Number of Occurrences: Until Specified Lab Results Component Value Date NA 135 02/25/2020 K 4.7 02/25/2020 CL 102 02/25/2020 CO2 23 02/25/2020 BUN 39 (H) 02/25/2020 CREATININE 0.75 (L) 02/25/2020 GFRAA 110 02/25/2020 ESTGFR 95 02/25/2020 MAGNESIUM 1.00 02/24/2020 CALCIUM 8.0 (L) 02/25/2020 PHOS 4.5 02/24/2020 AST 32 02/20/2020 ALT 39 02/20/2020 ALKPHOS 100 02/20/2020 BILITOT 0.2 02/20/2020 BILIDIR 0.1 02/20/2020 TRIG 126 01/25/2020 CRP 1.2 01/25/2020 IRON 81 01/25/2020 No results found for: POCGLU Skin Status: Shift Pressure Injury Prevention Occiput: No Injury Thoracic Spine: No Injury Sacral: No Injury Ischial - left: No Injury Ischial - right: No Injury Heel - left: No Injury Heel - right: No Injury Elbow - left: No Injury Elbow - right: No Injury Device Sites: O2 sat monitor, SCD's/venodynes, IV sites Other Sites: Urostomy Relevant medications: reviewed Last Bowel Movement: 02/27/20 Admit Weight: 54.8 kg Estimated body mass index is 19.53 kg/m?? as calculated from the following: Height as of this encounter: 167.6 cm (5' 6). Weight as of this encounter: 54.9 kg (121 lb). [place] Body Weight: 142 lbs / 64.4 kg Usual Body Weight: 140 lbs per patient report, unable to give timeframe Wt Readings from Last 10 Encounters: 02/21/20 54.9 kg (121 lb) 02/15/20 54.4 kg (120 lb) 01/25/20 54.8 kg (120 lb 12.8 oz) 01/15/20 56.2 kg (124 lb) 12/26/19 56.7 kg (125 lb) 12/19/19 58.5 kg (129 lb) 12/05/19 58.6 kg (129 lb 3.2 oz) 11/14/19 57.6 kg (127 lb) 11/07/19 57.6 kg (127 lb) 10/24/19 57.4 kg (126 lb 9.6 oz) Above weight history suggests 6.5% weight loss in ~2 months classified as severe weight loss Assessment: Estimated needs: Calories: 1650 (~30 kcal/kg admit WT); 1700 (MSJ x1.3) Protein: 82 grams (1.5 g/kg) Nutrition Focused Physical Exam (NFPE): Performed on 02/17/20. Subcutaneous fat loss at Orbital region: Mild Upper arm region (triceps/biceps): Moderate Thoracic and lumbar region (ribs, lower back and maxillary line): Not assessed Lean muscle loss to Yazdanism region (temporalis muscle): None present Clavicle bone region (pectoralis major): Moderate Dorsal hand (interosseous muscle): None present Shoulder (deltoid): Moderate Scapular bone region (latissimus dorsi, trapezius muscles): Not assessed Thigh region (quadriceps muscle): Moderate Posterior calf region (gastrocnemius muscle): Moderate Fluid accumulation: Not assessed Nutrition intake and intake history/Interview:Follow up w/ pt with poor p.o. intake and increased nutrition needs. Pt's TPN being cycled tonite and marinol started yesterday. Pt seen to enc p.o. and obtain food prefs. Pt dislikes Ensure but willing to try CIB with whole milk, Macedonian yogurt, Gutierrez Magic Cups. He prefers whole milk so will offer that on his trays. Limited diet hx indicates he drinksa lot of milk & soups at home. Hopefully, the above will help improve his p.o. intake but predict he will still need alt nutrition to meet his needs. Protein-calorie Malnutrition: >5% weight loss in 1 month and Moderate lean muscle loss is consistent with severe protein-calorie malnutrition in the setting of acute illness or injury (Bibiana, CORNELL J Parenteral Enteral Nutr. 2011; 36(3): 273-83) Nutrition to continue to follow up while inpatient DARIELA PEREIRA RD Pager #:[phone] * Zaira Rondon RD - 02/27/2020 12:49 PM EDT Nutrition Progress Note Patient s/p from a cystoprostatectomy with ileal conduit for MIBC Wally Aguilar is a 69 y.o. male Reason for intervention: TPN Comments: Cyclic TPN to provide full nutrition of 1460 calores and 115 g protein in 1248 ml. `No TPN changes today. I was able to discuss plan with provider [id number]. Nutrition Support: TPN Medication Recent History (Show up to 3 orders; newest on the left. Changes between the two most recent orders are indicated.) Start date and time 02/26/2020 1800 02/23/2020 1800 02/22/2020 1800 TPN Adult [[id number]] TPN Adult [[id number]] TPN Adult [[id number]] Order Status Active Discontinued Last Admin New Bag at 02/26/2020 1820 by Elsy Haynes RN New Bag at 02/25/2020 1747 by Elsy Haynes RN New Bag at 02/22/2020 1808 by Elsy Haynes RN Additives adult multivitamin 10 mL 10 mL 10 mL adult trace element 0.5 mL 0.5 mL 0.5 mL Electrolytes sodium phosphate 30 mmol 36 mmol 44 mmol potassium chloride 20 mEq 50 mEq 80 mEq sodium acetate 120 mEq 140 mEq 130 mEq calcium gluconate 3 mEq 10 mEq 10 mEq magnesium sulfate 12 mEq 20 mEq 30 mEq Dextrose dextrose 70% 147 g 147 g 147 g Amino Acids amino acid 15% no.5 (Clinisol) 115 g 115 g 115 g QS Base sterile water 4.39 mL 1,112.36 mL 1,097.23 mL Lipid fat emulsion 30 % 50 g 50 g 50 g Energy Contribution Proteins 460 kcal 460 kcal 460 kcal Dextrose 499.8 kcal 499.8 kcal 499.8 kcal Lipids 501 kcal 501 kcal 501 kcal Total 1,460.8 kcal 1,460.8 kcal 1,460.8 kcal Electrolyte Ion Calculated Amount Sodium 160 mEq 188 mEq 188.67 mEq Potassium 20 mEq 50 mEq 80 mEq Calcium 3 mEq 10 mEq 10 mEq Magnesium 12 mEq 20 mEq 30 mEq Aluminum -- -- -- Phosphate 32.51 mmol 38.51 mmol 46.51 mmol Chloride 20 mEq 50 mEq 80 mEq Acetate 217.37 mEq 237.37 mEq 227.37 mEq Other Total Amino Acid 115 g 115 g 115 g Total Amino Acid/kg 2.09 g/kg 2.09 g/kg 2.09 g/kg Glucose Infusion Rate 3.72 mg/kg/min 1.86 mg/kg/min 1.86 mg/kg/min Osmolarity (Estimated) 1,849.81 1,022.74 1,056.63 Volume 1,248 mL 2,400 mL 2,400 mL Rate 104 mL/hr 100 mL/hr 100 mL/hr Dosing Weight 54.9 kg 54.9 kg 54.9 kg [facility] Results Component Value Date NA 135 02/25/2020 K 4.7 02/25/2020 CL 102 02/25/2020 CO2 23 02/25/2020 BUN 39 (H) 02/25/2020 CREATININE 0.75 (L) 02/25/2020 GFRAA 110 02/25/2020 ESTGFR 95 02/25/2020 MAGNESIUM 1.00 02/24/2020 CALCIUM 8.0 (L) 02/25/2020 PHOS 4.5 02/24/2020 AST 32 02/20/2020 ALT 39 02/20/2020 ALKPHOS 100 02/20/2020 BILITOT 0.2 02/20/2020 BILIDIR 0.1 02/20/2020 TRIG 126 01/25/2020 CRP 1.2 01/25/2020 IRON 81 01/25/2020 No results found for: POCGLU Skin Status: Shift Pressure Injury Prevention Occiput: No Injury Thoracic Spine: No Injury Sacral: No Injury Ischial - left: No Injury Ischial - right: No Injury Heel - left: No Injury Heel - right: No Injury Elbow - left: No Injury Elbow - right: No Injury Device Sites: O2 sat monitor, SCD's/venodynes, IV sites Other Sites: Urostomy Relevant medications: Last Bowel Movement: 02/27/20 Intake/Output Summary (Last 24 hours) at 02/27/2020 1249 Last data filed at 02/27/2020 1200 Gross per 24 hour Intake 2489 ml Output 2275 ml Net 214 ml Admit Weight: 54.8 kg Estimated body mass index is 19.53 kg/m?? as calculated from the following: Height as of this encounter: 167.6 cm (5' 6). Weight as of this encounter: 54.9 kg (121 lb). [place] Body Weight: 63.8 kg Usual Body Weight: 58.5 kg Wt Readings from Last 10 Encounters: 02/21/20 54.9 kg (121 lb) 02/15/20 54.4 kg (120 lb) 01/25/20 54.8 kg (120 lb 12.8 oz) 01/15/20 56.2 kg (124 lb) 12/26/19 56.7 kg (125 lb) 12/19/19 58.5 kg (129 lb) 12/05/19 58.6 kg (129 lb 3.2 oz) 11/14/19 57.6 kg (127 lb) 11/07/19 57.6 kg (127 lb) 10/24/19 57.4 kg (126 lb 9.6 oz) Assessment: Estimated needs: Calories: 25-30 (3436-3366 kcal/kg) Protein: 2 grams (115g/kg) Nutrition Focused Physical Exam (NFPE): Performed on 02/19/20. Subcutaneous fat loss at Orbital region: Mild Upper arm region (triceps/biceps): Mild Thoracic and lumbar region (ribs, lower back and maxillary line): Mild Lean muscle loss to Yazdanism region (temporalis muscle): Moderate Clavicle bone region (pectoralis major): Moderate Dorsal hand (interosseous muscle): Moderate Shoulder (deltoid): Moderate Scapular bone region (latissimus dorsi, trapezius muscles): Not assessed Thigh region (quadriceps muscle): Mild Posterior calf region (gastrocnemius muscle): Mild Fluid accumulation: None present Nutrition intake and intake history/Interview: No nutrition in more than a week and 11 # weight loss(8% UBW) in last 2 months per eDH flowsheets and patient. Protein-calorie Malnutrition: <75% of estimated energy requirement for >7days, 7.5% weight loss in 3 months and Moderate lean muscle loss is consistent with severe protein-calorie malnutrition in the setting of acute illness or injury (Brandy hartman al, CORNELL J Parenteral Enteral Nutr. 2012 November; 36(3): 273-83) Nutrition to continue to follow up while inpatient. ZAIRA RONDON RD Pager #:[phone] * Roselia Castro PA - 02/27/2020 10:25 AM EDT Urology Inpatient Progress Note Patient Name: Wally Aguilar Patient Age: 69 y.o. Birthdate: 1950 Admit date: 02/13/2020 Attending Physician: Nima Armstrong MD ID: Wally Aguilar is a 69 y.o. male 14 Days Post-Op from a cystoprostatectomy with ileal conduit for MIBC. 24hr events: ?? No overnight events ?? PO intake remains low, states he has no appetite ?? Started on marinol yesterday ?? Loose incontinent BM x 1 in past 24 hours, crypto & campylobacter + ?? Remains on TPN, cycled overnight ?? Ambulating minimally ?? Pain well controlled ?? Patient has declined rehab which is what PT recommends, discussion ongoing ?? Removed half of irvin yesterday, steris applied ?? Dr. Armstrong discussed G-tube for nutritional support yesterday, patient would like to learn more,GI re-engaged. O: Last value Range last 24hrs Temperature Temp: 36.8 ??C (98.2 ??F) Temp: [36.7 ??C (98.1 ??F)-37 ??C (98.6 ??F)] Heart Rate Heart Rate: 82 Heart Rate: [75-82] Blood Pressure BP: 118/65 BP: (115-119)/(61-66) Respiratory Rate Resp: 24 Resp: [18-24] SpO2 SpO2: 97 % SpO2: [96 %-98 %] 02/25 0701 - 02/26 0700 In: 2389 [P.O.:300] Out: 2800 [Urine:2800] Physical Exam: General: NAD, resting in bed,withdrawn/flat affect, keeps eyes closed while talking HEENT: normocephalic, anicteric sclerae CVS: regular rate Pulm: nonlabored breathing on RA Abd: soft, appropriately tender, non-distended. No guarding. Midline incision is c/d/i. DARYN drain site dressing c/d/i : Urostomy pink, healthy appearing, draining CYU. Improved scrotal erythema and small excoriationon posterior aspect. Skin: warm, dry Ext: well perfused, no edema Neuro: Grossly intact, nonfocal Labs: Recent Labs 02/25/20 0202 NA 135 K 4.7 CL 102 CO2 23 BUN 39* CREATININE 0.75* GLUCOSE 127 CALCIUM 8.0* ID Recommendations 02/21/2020: - continue azithromycin 500mg daily for 14 days as both treatment of campylobacter as well as cryptosporidium - START nitazoxanide 500mg BID for a total of 14 days of treatment. We have spoken with pharmacy, who is ordering the medication. - continue to monitor stool output ASSESSMENT: Wally Aguilar is a 69 y.o. male POD14 s/p cystoprostatectomy with ileal conduit for MIBC whose post-op course is complicated by poor PO intake and infectious diarrhea. He has been HDS and afebrile. Diarrhea is improving; BM x 1 in past 24 hours. Stool campylobacter antigen and cryptosporidium found to be positive, will treat for 14 days with azithromycin (02/18 first dose --> 03/04)and nitazoxanide 500mg bid (02/21 --> 03/07); appreciate ID assistance. TPN for severe protein calorie malnutrition. Ordered calorie count to better ascertain his status - initial counts are poor (~200cc, needs ~ 1650, see nutrition note). Will work to advance mobility with PT/OT and nursing staff. Ordered miconazole tid for erythematous scrotum likely irritated from persistent contact with diarr hea. PT has been participating with ostomy changes, but lacks visual acuity and manual dexterity to do independently at this point. Does say he has a friend/roommate who can help him at home. PT recommending inpatient rehab, patient continues to refuse, wanting to go home. Nutritionally, patient cannot go home. Dr Armstrong has discussed possible G- tube for tube feeds today with patient. GI service has been re-engaged to discuss this as well. Appreciate GI assistance. Goals for today: OOB walk x4 daily Continue to encourage inpatient rehab for dispo, will continue to re-evaluate Continue TPN, cycling overnight Continue antibiotics for positive stool cultures Continue to work with feed handler PLAN: Neuro: pain control: tylenol and tramadol prn, lidoderm patch Card: HDS, Monitor vital signs, [id number], statin, Toprol XL Pulm: albuterol, ambulation, IS FEN: replete lytes prn, strict I/O's GI: Marinol for appetite stimulant, Regular diet TPN Adult,compazine, protonix, tums Renal/: monitor urine output. Routine ostomy care. Heme: no active issues ID: Miconazole ointment to scrotum, azithromycin & nitazoxanide for infectious diarrhea (14 daycourses) Endo: no active issues Home Meds: atorvastatin, metoprolol, chantix PPx: lovenox, SCDs, ambulation, ISC, cough, deep breathing Dispo: Stable on floor status. Discussing discharge planning with CM. Code Status: Attempt Cardiopulmonary Resuscitation - Inpatient NAHID CROWELL 02/27/2020 * Lizbeth Abdi RN - 02/27/2020 9:57 AM EDT This patient may require infusion therapy. Request referral to [place], [place] for possible tube feeds if going home or . Expected date of discharge: 03/01. Patient will require teaching. Referral routed to the Mechanical Engineering Technician for matching with agency/vendor and to provide any required information. * Zaira Rondon RD - 02/26/2020 10:16 AM EDT Nutrition Progress Note Patient s/p from a cystoprostatectomy with ileal conduit for MIBC Wally Aguilar is a 69 y.o. male Reason for intervention: TPN Comments: Cyclic TPN to provide full nutrition of 1460 calores and 115 g protein in 1248 ml.Potassium decreased by 30 mEq. Phosphorus decreased 6 mmol and magnesium decreased by 8 mEq I was able to discuss plan with provider 1735. Nutrition Support: TPN Medication Recent History (Show up to 3 orders; newest on the left. Changes between the two most recent orders are indicated.) Start date and time 02/26/2020 1800 02/23/2020 1800 02/22/2020 1800 TPN Adult [[id number]] TPN Adult [[id number]] TPN Adult [[id number]] Order Status Active Active Discontinued Last Admin New Bag at 02/25/2020 1747 by Elsy Haynes RN New Bag at 02/22/2020 1808 by Elsy Haynes RN Additives adult multivitamin 10 mL 10 mL 10 mL adult trace element 0.5 mL 0.5 mL 0.5 mL Electrolytes sodium phosphate 30 mmol 36 mmol 44 mmol potassium chloride 20 mEq 50 mEq 80 mEq sodium acetate 120 mEq 140 mEq 130 mEq calcium gluconate 3 mEq 10 mEq 10 mEq magnesium sulfate 12 mEq 20 mEq 30 mEq Dextrose dextrose 70% 147 g 147 g 147 g Amino Acids amino acid 15% no.5 (Clinisol) 115 g 115 g 115 g QS Base sterile water 4.39 mL 1,112.36 mL 1,097.23 mL Lipid fat emulsion 30 % 50 g 50 g 50 g Energy Contribution Proteins 460 kcal 460 kcal 460 kcal Dextrose 499.8 kcal 499.8 kcal 499.8 kcal Lipids 501 kcal 501 kcal 501 kcal Total 1,460.8 kcal 1,460.8 kcal 1,460.8 kcal Electrolyte Ion Calculated Amount Sodium 160 mEq 188 mEq 188.67 mEq Potassium 20 mEq 50 mEq 80 mEq Calcium 3 mEq 10 mEq 10 mEq Magnesium 12 mEq 20 mEq 30 mEq Aluminum -- -- -- Phosphate 32.51 mmol 38.51 mmol 46.51 mmol Chloride 20 mEq 50 mEq 80 mEq Acetate 217.37 mEq 237.37 mEq 227.37 mEq Other Total Amino Acid 115 g 115 g 115 g Total Amino Acid/kg 2.09 g/kg 2.09 g/kg 2.09 g/kg Glucose Infusion Rate 3.72 mg/kg/min 1.86 mg/kg/min 1.86 mg/kg/min Osmolarity (Estimated) 1,849.81 1,022.74 1,056.63 Volume 1,248 mL 2,400 mL 2,400 mL Rate 104 mL/hr 100 mL/hr 100 mL/hr Dosing Weight 54.9 kg 54.9 kg 54.9 kg [facility] Results Component Value Date NA 135 02/25/2020 K 4.7 02/25/2020 CL 102 02/25/2020 CO2 23 02/25/2020 BUN 39 (H) 02/25/2020 CREATININE 0.75 (L) 02/25/2020 GFRAA 110 02/25/2020 ESTGFR 95 02/25/2020 MAGNESIUM 1.00 02/24/2020 CALCIUM 8.0 (L) 02/25/2020 PHOS 4.5 02/24/2020 AST 32 02/20/2020 ALT 39 02/20/2020 ALKPHOS 100 02/20/2020 BILITOT 0.2 02/20/2020 BILIDIR 0.1 02/20/2020 TRIG 126 01/25/2020 CRP 1.2 01/25/2020 IRON 81 01/25/2020 No results found for: POCGLU Skin Status: Shift Pressure Injury Prevention Occiput: No Injury Thoracic Spine: No Injury Sacral: No Injury Ischial - left: No Injury Ischial - right: No Injury Heel - left: No Injury Heel - right: No Injury Elbow - left: No Injury Elbow - right: No Injury Device Sites: O2 sat monitor, IV sites, SCD's/venodynes Other Sites: Urostomy Relevant medications: Last Bowel Movement: 02/26/20 Intake/Output Summary (Last 24 hours) at 02/26/2020 1016 Last data filed at 02/26/2020 0713 Gross per 24 hour Intake 2994 ml Output 2875 ml Net 119 ml Admit Weight: 54.8 kg Estimated body mass index is 19.53 kg/m?? as calculated from the following: Height as of this encounter: 167.6 cm (5' 6). Weight as of this encounter: 54.9 kg (121 lb). [place] Body Weight: 63.8 kg Usual Body Weight: 58.5 kg Wt Readings from Last 10 Encounters: 02/21/20 54.9 kg (121 lb) 02/15/20 54.4 kg (120 lb) 01/25/20 54.8 kg (120 lb 12.8 oz) 01/15/20 56.2 kg (124 lb) 12/26/19 56.7 kg (125 lb) 12/19/19 58.5 kg (129 lb) 12/05/19 58.6 kg (129 lb 3.2 oz) 11/14/19 57.6 kg (127 lb) 11/07/19 57.6 kg (127 lb) 10/24/19 57.4 kg (126 lb 9.6 oz) Assessment: Estimated needs: Calories: 25-30 (1769-9558 kcal/kg) Protein: 2 grams (115g/kg) Nutrition Focused Physical Exam (NFPE): Performed on 02/19/20. Subcutaneous fat loss at Orbital region: Mild Upper arm region (triceps/biceps): Mild Thoracic and lumbar region (ribs, lower back and maxillary line): Mild Lean muscle loss to Yazdanism region (temporalis muscle): Moderate Clavicle bone region (pectoralis major): Moderate Dorsal hand (interosseous muscle): Moderate Shoulder (deltoid): Moderate Scapular bone region (latissimus dorsi, trapezius muscles): Not assessed Thigh region (quadriceps muscle): Mild Posterior calf region (gastrocnemius muscle): Mild Fluid accumulation: None present Nutrition intake and intake history/Interview: No nutrition in more than a week and 11 # weight loss(8% UBW) in last 2 months per eDH flowsheets and patient. Protein-calorie Malnutrition: <75% of estimated energy requirement for >7days, 7.5% weight loss in 3 months and Moderate lean muscle loss is consistent with severe protein-calorie malnutrition in the setting of acute illness or injury (Brandy et al, JPEN J Parenteral Enteral Nutr. 2012 November; 36(3): 273-83) Nutrition to continue to follow up while inpatient. ZAIRA RONDON RD Pager #:[phone] * Roselia Castro PA - 02/26/2020 10:08 AM EDT Urology Inpatient Progress Note Patient Name: Wally Aguilar Patient Age: 69 y.o. Birthdate: 1950 Admit date: 02/13/2020 Attending Physician: Nima Armstrong MD ID: Wally Aguilar is a 69 y.o. male 13 Days Post-Op from a cystoprostatectomy with ileal conduit for MIBC. 24hr events: ?? No overnight events ?? PO intake remains low ?? BM x 1 in past 24 hours, crypto & campylobacter + ?? Remains on TPN continuous ?? Ambulating ?? Pain well controlled ?? Patient has declined rehab which is what PT recommends O: Last value Range last 24hrs Temperature Temp: 36.6 ??C (97.9 ??F) Temp: [36.3 ??C (97.3 ??F)-36.9 ??C (98.4 ??F)] Heart Rate Heart Rate: 75 Heart Rate: [75] Blood Pressure BP: 118/67 BP: (111-118)/(65-67) Respiratory Rate Resp: 16 Resp: [16-30] SpO2 SpO2: 99 % SpO2: [98 %-100 %] 02/24 0701 - 02/25 0700 In: 2994 [P.O.:660] Out: 2800 [Urine:2800] DARYN drain: 115cc serous Physical Exam: General: NAD, resting in bed,withdrawn/flat affect, keeps eyes closed while talking HEENT: normocephalic, anicteric sclerae CVS: regular rate Pulm: nonlabored breathing on RA Abd: soft, appropriately tender, non-distended. No guarding. Midline incision is c/d/i. DARYN drain site dressing c/d/i : Urostomy PPV draining CYU. Improved scrotal erythema and small excoriation on posterior aspect. Skin: warm, dry Ext: well perfused, no edema Neuro: Grossly intact, nonfocal Labs: Recent Labs 02/24/20 0205 WBC 8.0 HGB 9.3* HCT 29.0* PLATELET 103* Recent Labs 02/25/20 0202 02/24/20 0205 NA 135 133* K 4.7 4.7 CL 102 104 CO2 23 21* BUN 39* 34* CREATININE 0.75* 0.71* GLUCOSE 127 121 CALCIUM 8.0* 7.7* MAGNESIUM -- 1.00 PHOS -- 4.5 ID Recommendations 02/21/2020: - continue azithromycin 500mg daily for 14 days as both treatment of campylobacter as well as cryptosporidium - START nitazoxanide 500mg BID for a total of 14 days of treatment. We have spoken with pharmacy, who is ordering the medication. - continue to monitor stool output ASSESSMENT: Wally Aguilar is a 69 y.o. male POD13 s/p cystoprostatectomy with ileal conduit for MIBC whose post-op course is complicated by poor PO intake and infectious diarrhea. He has been HDS and afebrile. Diarrhea is improving; BM x 1 in past 24 hours and flexiseal removed. Stool campylobacter antigen and cryptosporidium found to be positive, will treat for 14 days with azithromycin (02/18 first dose --> 03/03) and nitazoxanide 500mg bid (02/21 --> 03/07). TPN started for severe proteincalorie malnutrition. Ordered calorie count to better ascertain his status - initial counts are poor (~200cc, needs ~ 1650, see nutrition note). Will work to advance mobility with PT/OT and nursing staff. Ordered miconazole tid for erythematous scrotum likely irritated from persistent contact with diarrhea. PT recommending inpatient rehab, patient continues to refuse, wanting to go home. Nutritionally, patient cannot go home. Dr Armstrong plans to discuss possible G-tube for tube feeds today with patient. Goals for today: OOB walk x4 daily Continue to encourage inpatient rehab for dispo, will continue to re-evaluate Continue TPN over the weekend, will cycle starting tonight Continue antibiotics for positive stool cultures PLAN: Neuro: pain control: tylenol prn (not taking), tramadol prn, lidoderm patch Card: HDS, Monitor vital signs, [id number], statin, Toprol XL Pulm: albuterol, ambulation, IS FEN: replete lytes prn, strict I/O's GI: bowel meds prn, Regular diet TPN Adult, zofran, compazine, protonix, tums Renal/: monitor urine output Heme: no active issues ID: Miconazole ointment to scrotum, azithromycin &nitazoxanide for infectious diarrhea (14 day courses) Endo: no active issues Home Meds: atorvastatin, metoprolol, chantix PPx: lovenox, SCDs, ambulation, ISC, cough, deep breathing Dispo: Stable on floor status. Discussing discharge planning with CM. Code Status: Attempt Cardiopulmonary Resuscitation - Inpatient NAHID CROWELL 02/26/2020 * Arun Ana R - 02/25/2020 8:24 AM EDT Urology Inpatient Progress Note Patient Name: Wally Aguilar Patient Age: 69 y.o. Birthdate: 1950 Admit date: 02/13/2020 Attending Physician: Nima Armstrong MD ID: Wally Aguilar is a 69 y.o. male LOS: 12 days 12 Days Post-Op from a cystoprostatectomy with ileal conduit for MIBC. 24hr events: ?? No overnight events ?? oral intake remains poor, minimal nausea yesterday ?? Continued diarrhea, slowing, crypto & campylobacter + ?? No complaints this AM ?? Ambulating ?? Pain well controlled. ?? No cp/sob ?? BMP sodium normalized today O: Last value Range last 24hrs Temperature Temp: 36.7 ??C (98.1 ??F) Temp: [36.3 ??C (97.3 ??F)-36.7 ??C (98.1 ??F)] Heart Rate Heart Rate: 79 Heart Rate: -- Blood Pressure BP: 111/66 BP: (108-122)/(65-73) Respiratory Rate Resp: 26 Resp: [16-28] SpO2 SpO2: 98 % SpO2: [96 %-99 %] 02/23 0701 - 02/24 0700 In: 3945 [P.O.:495] Out: 2665 [Urine:2550] DARYN drain: 115cc serous Physical Exam: General: NAD, resting in bed,withdrawn/flat affect HEENT: normocephalic, anicteric sclerae CVS: regular rate Pulm: normal respirations, no use of accessory muscles, no stridor/audible wheezing Abd: soft, appropriately tender, non-distended. No guarding. Midline incision is c/d/i. DARYN drain with serous output. : Urostomy PPV draining CYU. Scrotal erythema on posterior aspect. Skin: warm, dry Ext: well perfused, no edema, RLE no palpable pulses. Neuro: Grossly intact, nonfocal Labs: Recent Labs 02/24/20 0205 WBC 8.0 HGB 9.3* HCT 29.0* PLATELET 103* Recent Labs 02/25/20 0202 02/24/20 0205 02/23/20 0155 NA 135 133* 136 K 4.7 4.7 4.8 CL 102 104 103 CO2 23 21* 21* BUN 39* 34* 33* CREATININE 0.75* 0.71* 0.75* GLUCOSE 127 121 123 CALCIUM 8.0* 7.7* 7.5* MAGNESIUM -- 1.00 1.04 PHOS -- 4.5 3.8 DARYN creat: 0.8 Imaging: no recent ID Recommendations 02/21/2020: - continue azithromycin 500mg daily for 14 days as both treatment of campylobacter as well as cryptosporidium - START nitazoxanide 500mg BID for a total of 14 days of treatment. We have spoken with pharmacy, who is ordering the medication. - continue to monitor stool output ASSESSMENT: Wally Aguilar is a 69 y.o. male POD11 s/p cystoprostatectomy with ileal conduit for MIBC who's post-op course is complicated by poor PO intake and infectious diarrhea. He has been HDS and afebrile overnight. Diarrhea is improving, less volume, flexi-seal removed. Stool campylobacter antigen and cryptosporidium found to be positive, will treat for 14 days with azithromycin (02/18 firstdose --> 03/03) and nitazoxanide 500mg bid (02/21 --> 03/07). TPN started for severe protein calorie malnutrition. Ordered calorie count to better ascertain his status - initial counts are poor (~200cc, needs ~ 1650, see nutrition note). Will work to advance mobility with PT/OT and nursing staff. Ordered miconazole tid for erythematous scrotum likely irritated from persistent contact with diarrhea. PT recommending inpatient rehab, patient continues to refuse, wanting to go home. Nutritionally, patient cannot go home. Goals for today: OOB walk x4 daily Continue to encourage inpatient rehab for dispo, will continue to re-evaluate Continue TPN over the weekend, cannot make changes at this time Continue antibiotics for positive stool cultures Remove DARYN today as output <300 PLAN: Neuro: pain control: tylenol, tramadol, lidoderm patch Card: HDS, Monitor vital signs, [id number] Pulm: albuterol, ambulation, ISC, cough, deep breathing FEN: replete lytes prn, strict I/O's GI: bowel meds prn, Regular diet TPN Adult, zofran, compazine, protonix, tums Renal/: monitor urine output Heme: no active issues ID: Miconazole to scrotum, azithromycin &nitazoxanide, perioperative ceftriaxone, flagyl completed Endo: no active issues Home Meds: atorvastatin, metoprolol, chantix PPx: lovenox, SCDs, ambulation, ISC, cough, deep breathing Dispo: Stable, Attempt Cardiopulmonary Resuscitation - Inpatient Ana Dias MD 02/25/2020 * Wally Martínez RN - 02/24/2020 2:11 PM EDT Case Management Discharge Plan DISCHARGE PLANNING Anticipated Discharge Disposition: Home w/ VNA Expected DC Date: 02/25 Steps Taken Toward Discharge: Spoke w/ patient for follow up on rehab referrals. Patient declines rehab choices, stating that he will discharge home when medically ready. Next Steps: Will follow through to discharge as needs arise Barriers to Discharge: None Electronically signed: Wally Martínez RN, Machine Shop Repair Technician Pgr: [phone] 02/24/2020 2:11 PM * Leigha Kiser RN - 02/24/2020 2:06 PM EDT OUTCOME EVALUATION NOTE: OUTCOME SUMMARY: Vinny denies pain; tachypnic shallow breathing RR 28; mild nausea r/t morning med pass-denied need for intervention; tolerated popsicle & bites of michelle ice cr; engaged pt to try eating-menus completed took bite of grilled cheese and ate 1/2 chix rice soup; self removed urostomy/cath tubing prior to ambulating in [place]; sister bedside for brief visit; 1x loose bm-barrier cream applied; antimicrobials given; pt awake watching TV PLAN MOVING FORWARD: Skin assessments; Encourage food preferences & PO intake INDIVIDUALIZED FALL PREVENTION INTERVENTIONS: High fall risk Patient-specific fall risk factors per assessment: [current deficits]: RLE impaired; weakness Assistance [level of assistance required for transfers and ambulation]: 1 assist FWW Supervision [direct monitoring required during toileting and ADLs]: Indep Surveillance [continuous indirect monitoring]: Nurse knowledge exchange at bedside; purposeful rounding; call vora in reach; environmental modifications; comfort and safety measures maintained Patient-specific fall prevention interventions for sensory deficits provided, if applicable: [X] No * Ana Dias - 02/24/2020 7:00 AM EDT Urology Inpatient Progress Note Patient Name: Wally Aguilar Patient Age: 69 y.o. Birthdate: 1950 Admit date: 02/13/2020 Attending Physician: Nima Armstrong MD ID: Wally Aguilar is a 69 y.o. male LOS: 11 days 11 Days Post-Op from a cystoprostatectomy with ileal conduit for MIBC. 24hr events: ?? No overnight events ?? oral intake remains poor ?? Continued diarrhea, slowing, crypto & campylobacter + ?? No complaints this AM. ?? Ambulating ?? Pain well controlled. ?? No cp/sob ?? Patient refusing inpatient rehab, wants to go home. States has friend who can help. O: Last value Range last 24hrs Temperature Temp: 36.3 ??C (97.3 ??F) Temp: [36.3 ??C (97.3 ??F)-36.7 ??C (98.1 ??F)] Heart Rate Heart Rate: 79 Heart Rate: [79-85] Blood Pressure BP: 115/69 BP: (110-115)/(69-70) Respiratory Rate Resp: 16 Resp: [16-17] SpO2 SpO2: 97 % SpO2: [96 %-99 %] 02/22 0701 - 02/23 0700 In: 2410 [P.O.:150] Out: 3375 [Urine:3075] DARYN drain: 300cc serous Physical Exam: General: NAD, resting in bed,withdrawn/flat affect HEENT: normocephalic, anicteric sclerae CVS: regular rate Pulm: normal respirations, no use of accessory muscles, no stridor/audible wheezing Abd: soft, appropriately tender, non-distended. No guarding. Midline incision is c/d/i. DARYN drain with serous output. : Urostomy PPV draining CYU. Scrotal erythema on posterior aspect. Skin: warm, dry Ext: well perfused, no edema, RLE no palpable pulses. Neuro: Grossly intact, nonfocal Labs: Recent Labs 02/24/20 0205 02/22/20 0230 WBC 8.0 9.6* HGB 9.3* 9.7* HCT 29.0* 28.5* PLATELET 103* 97* Recent Labs 02/24/20 0205 02/23/20 0155 02/22/20 0230 02/21/20 2036 NA 133* 136 136 -- K 4.7 4.8 4.1 4.1 CL 104 103 103 -- CO2 21* 21* 25 -- BUN 34* 33* 26* -- CREATININE 0.71* 0.75* 0.73* -- GLUCOSE 121 123 126 -- CALCIUM 7.7* 7.5* 7.4* -- MAGNESIUM 1.00 1.04 -- -- PHOS 4.5 3.8 -- -- DARYN creat: 0.8 Imaging: no recent ID Recommendations 02/21/2020: - continue azithromycin 500mg daily for 14 days as both treatment of campylobacter as well as cryptosporidium - START nitazoxanide 500mg BID for a total of 14 days of treatment. We have spoken with pharmacy, who is ordering the medication. - continue to monitor stool output ASSESSMENT: Wally Aguilar is a 69 y.o. male POD11 s/p cystoprostatectomy with ileal conduit for MIBC who's post-op course is complicated by poor PO intake and infectious diarrhea. He has been HDS and afebrile overnight. Diarrhea is improving, less volume, flexi-seal removed. Stool campylobacter antigen and cryptosporidium found to be positive, will treat for 14 days with azithromycin (02/18 firstdose --> 03/03) and nitazoxanide 500mg bid (02/21 first dose?--> 03/07). [facility]PN [facility] days ago to help support nutrition as PO intake is minimal. Ordered calorie count to better ascertain his status - initial counts are poor (~200cc, needs ~ 1650, see nutrition note). Will workto advance mobility with PT/OT and nursing staff. Ordered miconazole tid for erythematous scrotum likely irritated from persistent contact with diarrhea. PT recommending inpatient rehab, patient continues to refuse, wanting to go home. Nutritionally, patient cannot go home. Mild hyponatremia, will repeat BMP tomorrow. Goals for today: OOB walk x4 daily Continue to encourage inpatient rehab for dispo, will continue to re-evaluate Continue TPN over the weekend, cannot make changes at this time Continue antibiotics for positive stool cultures F/u BMP on Wednesday for mild hyponatremia PLAN: Neuro: pain control: tylenol, tramadol, lidoderm patch Card: HDS, Monitor vital signs, [id number] Pulm: albuterol, ambulation, ISC, cough, deep breathing FEN: replete lytes prn, strict I/O's GI: bowel meds prn, Regular diet TPN Adult, zofran, compazine, protonix, tums Renal/: monitor urine output Heme: no active issues ID: Miconazole to scrotum, azithromycin &nitazoxanide, perioperative ceftriaxone, flagyl completed Endo: no active issues Home Meds: atorvastatin, metoprolol, chantix PPx: lovenox, SCDs, ambulation, ISC, cough, deep breathing Dispo: Stable, Attempt Cardiopulmonary Resuscitation - Inpatient Ana Dias MD 02/24/2020 * Dora Lind RN - 02/23/2020 4:50 PM EDT This author spoke to patient at bedside and presented inpatient rehabilitation facility choices, read the list to the patient. Patient do not provide choices to this author,, encouraged to discuss with friend who will be coming tomorrow. Left choices with patient. Weekend CM notifies to check in over the weekend if patient will provide choices. * Donte Sheffield RD - 02/23/2020 1:58 PM EDT Nutrition Progress Note Patient admitted with bladder CA s/p radical cystoprostatectomy + Ileal Conduit (02/13/20), relevant medical history includes asthma, hypertension, hyperlipidemia, smoker (2 ppd for 50 years). Wally Aguilar is a 69 y.o. male Reason for intervention: Follow up Nutrition Recommendations: Continue TPN Monitor weight Ensure BID Active Orders Diet Regular diet Frequency: Effective Now Number of Occurrences: Until Specified Nourishments Adult diet Oral Supplements Boost Breeze (clear liquid) Frequency: 4 Times Daily Number of Occurrences: Until Specified Lab Results Component Value Date NA 136 02/23/2020 K 4.8 02/23/2020 CL 103 02/23/2020 CO2 21 (L) 02/23/2020 BUN 33 (H) 02/23/2020 CREATININE 0.75 (L) 02/23/2020 GFRAA 110 02/23/2020 ESTGFR 95 02/23/2020 MAGNESIUM 1.04 02/23/2020 CALCIUM 7.5 (L) 02/23/2020 PHOS 3.8 02/23/2020 AST 32 02/20/2020 ALT 39 02/20/2020 ALKPHOS 100 02/20/2020 BILITOT 0.2 02/20/2020 BILIDIR 0.1 02/20/2020 TRIG 126 01/25/2020 CRP 1.2 01/25/2020 IRON 81 01/25/2020 No results found for: POCGLU Skin Status: Shift Pressure Injury Prevention Occiput: No Injury Thoracic Spine: No Injury Sacral: No Injury Ischial - left: No Injury Ischial - right: No Injury Heel - left: No Injury Heel - right: No Injury Elbow - left: No Injury Elbow - right: No Injury Device Sites: O2 sat monitor, SCD's/venodynes, IV sites, other (see comments)(urostomy) Other Sites: DARYN Relevant medications: reviewed Last Bowel Movement: 02/23/20 Admit Weight: 54.8 kg Estimated body mass index is 19.53 kg/m?? as calculated from the following: Height as of this encounter: 167.6 cm (5' 6). Weight as of this encounter: 54.9 kg (121 lb). [place] Body Weight: 142 lbs / 64.4 kg Usual Body Weight: 140 lbs per patient report, unable to give timeframe Wt Readings from Last 10 Encounters: 02/21/20 54.9 kg (121 lb) 02/15/20 54.4 kg (120 lb) 01/25/20 54.8 kg (120 lb 12.8 oz) 01/15/20 56.2 kg (124 lb) 12/26/19 56.7 kg (125 lb) 12/19/19 58.5 kg (129 lb) 12/05/19 58.6 kg (129 lb 3.2 oz) 11/14/19 57.6 kg (127 lb) 11/07/19 57.6 kg (127 lb) 10/24/19 57.4 kg (126 lb 9.6 oz) Above weight history suggests 6.5% weight loss in ~2 months classified as severe weight loss Assessment: Estimated needs: Calories: 1650 (~30 kcal/kg admit WT); 1700 (MSJ x1.3) Protein: 82 grams (1.5 g/kg) Nutrition Focused Physical Exam (NFPE): Performed on 02/17/20. Subcutaneous fat loss at Orbital region: Mild Upper arm region (triceps/biceps): Moderate Thoracic and lumbar region (ribs, lower back and maxillary line): Not assessed Lean muscle loss to Yazdanism region (temporalis muscle): None present Clavicle bone region (pectoralis major): Moderate Dorsal hand (interosseous muscle): None present Shoulder (deltoid): Moderate Scapular bone region (latissimus dorsi, trapezius muscles): Not assessed Thigh region (quadriceps muscle): Moderate Posterior calf region (gastrocnemius muscle): Moderate Fluid accumulation: Not assessed Nutrition intake and intake history/Interview: pt states he continues to have poor appetite. Declined drinking ensure. Declined other supplements and snacks. Encouraged P.O intake and small frequent meals. Pt tired on interview Calorie count: 02/18:130kcals 5.5g protein 02/17:201kcals 11g protein Protein-calorie Malnutrition: >5% weight loss in 1 month and Moderate lean muscle loss is consistent with severe protein-calorie malnutrition in the setting of acute illness or injury (Brandy et al, JPEN J Parenteral Enteral Nutr. 2011; 36(3): 273-83) Nutrition to continue to follow up while inpatient Donte Sheffield RD Pager #:[phone] * Zaira Rondon RD - 02/23/2020 11:10 AM EDT Nutrition Progress Note Patient s/p from a cystoprostatectomy with ileal conduit for MIBC Wally Aguilar is a 69 y.o. male Reason for intervention: TPN Comments: TPN provides full nutrition of 1460 calores and 115 g protein in 2.4 liters Potassium decreased by 30 mEq to 50 mEq. Phosphorus decreased 8 mmol and magnesium decreased by 10 mEq to 20 mEq I was able to discuss plan with provider [id number]. Nutrition Support: TPN Medication Recent History (Show up to 3 orders; newest on the left. Changes between the two most recent orders are indicated.) Start date and time 02/23/2020 1800 02/22/2020 1800 02/21/2020 1800 TPN Adult [[id number]] TPN Adult [[id number]] TPN Adult [[id number]] Order Status Active Active Last Admin New Bag at 02/22/2020 1808 by Elsy Haynes RN New Bag at 02/21/2020 1836 by Carlos Manuel Maldonado RN Additives adult multivitamin 10 mL 10 mL 10 mL adult trace element 0.5 mL 0.5 mL 0.5 mL Electrolytes sodium phosphate 36 mmol 44 mmol 44 mmol potassium chloride 50 mEq 80 mEq 140 mEq sodium acetate 140 mEq 130 mEq 130 mEq calcium gluconate 10 mEq 10 mEq 10 mEq magnesium sulfate 20 mEq 30 mEq 30 mEq Dextrose dextrose 70% 147 g 147 g 147 g Amino Acids amino acid 15% no.5 (Clinisol) 115 g 115 g 115 g QS Base sterile water 1,112.36 mL 1,097.23 mL 1,067.23 mL Lipid fat emulsion 30 % 50 g 50 g 50 g Energy Contribution Proteins 460 kcal 460 kcal 460 kcal Dextrose 499.8 kcal 499.8 kcal 499.8 kcal Lipids 501 kcal 501 kcal 501 kcal Total 1,460.8 kcal 1,460.8 kcal 1,460.8 kcal Electrolyte Ion Calculated Amount Sodium 188 mEq 188.67 mEq 188.67 mEq Potassium 50 mEq 80 mEq 140 mEq Calcium 10 mEq 10 mEq 10 mEq Magnesium 20 mEq 30 mEq 30 mEq Aluminum -- -- -- Phosphate 38.51 mmol 46.51 mmol 46.51 mmol Chloride 50 mEq 80 mEq 140 mEq Acetate 237.37 mEq 227.37 mEq 227.37 mEq Other Total Amino Acid 115 g 115 g 115 g Total Amino Acid/kg 2.09 g/kg 2.09 g/kg 2.15 g/kg Glucose Infusion Rate 1.86 mg/kg/min 1.86 mg/kg/min 1.86 mg/kg/min Osmolarity (Estimated) 1,022.74 1,056.63 1,106.63 Volume 2,400 mL 2,400 mL 2,400 mL Rate 100 mL/hr 100 mL/hr 100 mL/hr Dosing Weight 54.9 kg 54.9 kg 53.6 kg [facility] Results Component Value Date NA 136 02/23/2020 K 4.8 02/23/2020 CL 103 02/23/2020 CO2 21 (L) 02/23/2020 BUN 33 (H) 02/23/2020 CREATININE 0.75 (L) 02/23/2020 GFRAA 110 02/23/2020 ESTGFR 95 02/23/2020 MAGNESIUM 1.04 02/23/2020 CALCIUM 7.5 (L) 02/23/2020 PHOS 3.8 02/23/2020 AST 32 02/20/2020 ALT 39 02/20/2020 ALKPHOS 100 02/20/2020 BILITOT 0.2 02/20/2020 BILIDIR 0.1 02/20/2020 TRIG 126 01/25/2020 CRP 1.2 01/25/2020 IRON 81 01/25/2020 No results found for: POCGLU Skin Status: Shift Pressure Injury Prevention Occiput: No Injury Thoracic Spine: No Injury Sacral: No Injury Ischial - left: No Injury Ischial - right: No Injury Heel - left: No Injury Heel - right: No Injury Elbow - left: No Injury Elbow - right: No Injury Device Sites: O2 sat monitor, SCD's/venodynes, IV sites, other (see comments)(urostomy) Other Sites: DARYN Relevant medications: Last Bowel Movement: 02/23/20 Intake/Output Summary (Last 24 hours) at 02/23/2020 1110 Last data filed at 02/23/2020 1059 Gross per 24 hour Intake 3260 ml Output 3830 ml Net -570 ml Admit Weight: 54.8 kg Estimated body mass index is 19.53 kg/m?? as calculated from the following: Height as of this encounter: 167.6 cm (5' 6). Weight as of this encounter: 54.9 kg (121 lb). [place] Body Weight: 63.8 kg Usual Body Weight: 58.5 kg Wt Readings from Last 10 Encounters: 02/21/20 54.9 kg (121 lb) 02/15/20 54.4 kg (120 lb) 01/25/20 54.8 kg (120 lb 12.8 oz) 01/15/20 56.2 kg (124 lb) 12/26/19 56.7 kg (125 lb) 12/19/19 58.5 kg (129 lb) 12/05/19 58.6 kg (129 lb 3.2 oz) 11/14/19 57.6 kg (127 lb) 11/07/19 57.6 kg (127 lb) 10/24/19 57.4 kg (126 lb 9.6 oz) Assessment: Estimated needs: Calories: 25-30 (9394-8319 kcal/kg) Protein: 2 grams (115g/kg) Nutrition Focused Physical Exam (NFPE): Performed on 02/19/20. Subcutaneous fat loss at Orbital region: Mild Upper arm region (triceps/biceps): Mild Thoracic and lumbar region (ribs, lower back and maxillary line): Mild Lean muscle loss to Yazdanism region (temporalis muscle): Moderate Clavicle bone region (pectoralis major): Moderate Dorsal hand (interosseous muscle): Moderate Shoulder (deltoid): Moderate Scapular bone region (latissimus dorsi, trapezius muscles): Not assessed Thigh region (quadriceps muscle): Mild Posterior calf region (gastrocnemius muscle): Mild Fluid accumulation: None present Nutrition intake and intake history/Interview: No nutrition in more than a week and 11 # weight loss(8% UBW) in last 2 months per eDH flowsheets and patient. Protein-calorie Malnutrition: <75% of estimated energy requirement for >7days, 7.5% weight loss in 3 months and Moderate lean muscle loss is consistent with severe protein-calorie malnutrition in the setting of acute illness or injury (Brandy hartman al, JPEN J Parenteral Enteral Nutr. 2011; 36(3): 273-83) Nutrition to continue to follow up while inpatient. ZAIRA RONDON RD Pager #[phone] * Juventino Elena MD - 02/23/2020 7:22 AM EDT INFECTIOUS DISEASE FOLLOW-UP NOTE Active ID Issue(s): Campylobacter and Cryptosporidiosis Infectious Diarrhea Antimicrobial Therapy: Nitazoxanide 500mg BID Azithromycin 500mg daily Intercurrent Events/Subjective Data: No acute events. Patient not seen today. Laboratory: Recent labs reviewed in chart and significant for: Cr 0.75 Micro: 02/09 COVID negative 02/15 Cdiff negative 02/17 Cryptosporidium screen positive 02/17 Giardia screen negative 02/18 Campylobacter antigen positive 02/18 Shiga toxin assay negative 02/18 Stool culture - no enteric pathogens isolated ?? 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 His stool volume appears to have decreased. Recommendations: - continue azithromycin 500mg daily for 14 days as both treatment of campylobacter as well as cryptosporidium - continue nitazoxanide 500mg BID for AT LEAST a total of 14 days of treatment. Will need to monitor stool output, and may need to prolong treatment if volume does not decrease ID consult service will sign off. Please do not hesitate to page with any questions or concerns. Fernando Montalvo MD 02/23/2020 10:09 AM I agree with the recommendations of Dr. Montalvo after discussion with her and review of her note. I didnot examine the patient myself today. Juventino Elena MD * Samy Knight, RN - 02/23/2020 6:31 AM EDT OUTCOME EVALUATION NOTE: OUTCOME SUMMARY: Patient rested well between care. No complaints of pain or nausea. OOB to BR frequently to have liquid BM. Adequate UOP in ostomy. Otherwise, uneventful shift. All needs met. PLAN MOVING FORWARD: Continue current plan, encourage mobilization, encourage PO intake, monitor for pain and nausea, monitor UOP, INDIVIDUALIZED FALL PREVENTION INTERVENTIONS: High Fall RIsk, Patient-specific fall risk factors per assessment: [current deficits]: IV catheter, SCD's, opioid pain medication, 2 or more medical diagnosis, uses walker to ambulate, urostomy, TPN, DARYN, Assistance [level of assistance required for transfers and ambulation]: SBA with walker, Supervision [direct monitoring required during toileting and ADLs]: Eyes on, Surveillance [continuous indirect monitoring]: Purposeful rounding, bed alarm, chair alarm, NKE at bedside, bed in low position, nonskid shoes when OOB, personal items within reach, Patient-specific fall prevention interventions for sensory deficits provided, if applicable: [X] Yes Lighting adjusted for task, CPG GOAL OUTCOME EVALUATION: * La Jean-Baptiste MD - 02/23/2020 6:08 AM EDT Urology Inpatient Progress Note Patient Name: Wally Aguilar Patient Age: 69 y.o. Birthdate: 1950 Admit date: 02/13/2020 Attending Physician: Nima Armstrong MD ID: Wally Aguilar is a 69 y.o. male LOS: 10 days 10 Days Post-Op from a cystoprostatectomy with ileal conduit for MIBC. 24hr events: ?? No overnight events ?? oral intake greatly improving ?? Continued diarrhea, slowing, crypto & campylobacter + ?? No complaints this AM. ?? Ambulated x2 yesterday, needs to be offered ambulation at least x4 ?? Pain well controlled. ?? No cp/sob. ?? Lovenox teaching completed O: Last value Range last 24hrs Temperature Temp: 36.6 ??C (97.9 ??F) Temp: [36.4 ??C (97.5 ??F)-36.7 ??C (98.1 ??F)] Heart Rate Heart Rate: 82 Heart Rate: [82-92] Blood Pressure BP: 124/70 BP: (116-124)/(69-70) Respiratory Rate Resp: 18 Resp: [14-24] SpO2 SpO2: 96 % SpO2: [94 %-96 %] 02/21 0701 - 02/22 0700 In: 2950 [P.O.:500] Out: 3575 [Urine:2675] DARYN drain: 430cc serous Physical Exam: General: NAD, resting in bed,withdrawn/flat affect HEENT: normocephalic, anicteric sclerae CVS: regular rate Pulm: normal respirations, no use of accessory muscles, no stridor/audible wheezing Abd: soft, appropriately tender, non-distended. No guarding. Midline incision is c/d/i. DARYN drain with serous output. : Urostomy PPV draining CYU. Scrotal erythema on posterior aspect. Skin: warm, dry Ext: well perfused, no edema, RLE no palpable pulses. Neuro: Grossly intact, nonfocal Labs: Recent Results (from the past 72 hour(s)) Basic Metabolic Panel (non-fasting) Result Value Ref Range Glucose Lvl 130 65 - 199 mg/dL BUN 22 (H) 10 - 20 mg/dL Creatinine 0.69 (L) 0.80 - 1.50 mg/dL Sodium 135 135 - 145 mmol/L Potassium 3.0 (CRIT) 3.5 - 5.0 mmol/L Chloride 101 98 - 107 mmol/L CO2 24 22 - 31 mmol/L Anion Gap 10 5 - 15 mmol/L Calcium 7.2 (L) 8.5 - 10.5 mg/dL eGFR 98 >=60 mL/min/1.73 m?? eGFR 114 >=60 mL/min/1.73 m?? Magnesium Result Value Ref Range Magnesium 0.90 0.69 - 1.07 mmol/L Phosphorus Result Value Ref Range Phosphorus 3.3 2.5 - 4.5 mg/dL Potassium Result Value Ref Range Potassium 4.1 3.5 - 5.0 mmol/L Basic Metabolic Panel (non-fasting) Result Value Ref Range Glucose Lvl 126 65 - 199 mg/dL BUN 26 (H) 10 - 20 mg/dL Creatinine 0.73 (L) 0.80 - 1.50 mg/dL Sodium 136 135 - 145 mmol/L Potassium 4.1 3.5 - 5.0 mmol/L Chloride 103 98 - 107 mmol/L CO2 25 22 - 31 mmol/L Anion Gap 8 5 - 15 mmol/L Calcium 7.4 (L) 8.5 - 10.5 mg/dL eGFR 96 >=60 mL/min/1.73 m?? eGFR 111 >=60 mL/min/1.73 m?? Hemogram Result Value Ref Range WBC 9.6 (H) 4.0 - 9.5 x10(3)/mcL RBC 3.07 (L) 4.58 - 5.54 x10(6)/mcL Hemoglobin 9.7 (L) 13.7 - 16.5 gm/dL Hematocrit 28.5 (L) 40.5 - 48.5 % MCV 92.8 82.9 - 93.1 fL MCH 31.6 27.5 - 32.1 pg MCHC 34.0 32.0 - 35.7 gm/dL Platelets 97 (L) 145 - 357 x10(3)/mcL RDWSD 54.2 (H) 36.0 - 45.0 fL RDWCV 16.1 (H) 11.4 - 13.8 % MPV 12.1 7.6 - 12.9 fL nRBC % Auto 0.0 % nRBC Abs Auto 0.000 0.000 - 0.000 x10(3)/mcL Differential, Automated Result Value Ref Range Neutrophils % 75.8 % Neutr Abs (ANC) 7.24 (H) 1.70 - 6.10 x10(3)/mcL Lymphocytes % 13.2 % Lymphocytes Abs 1.3 0.9 - 3.2 x10(3)/mcL Monocytes % 9.4 % Monocyte Abs 0.9 0.3 - 0.9 x10(3)/mcL Eosinophils % 0.9 % Eosinophils Abs 0.1 0.0 - 0.4 x10(3)/mcL Basophils % 0.3 % Basophils Abs 0.0 0.0 - 0.1 x10(3)/mcL Immature Gran % 0.40 % Ana Gran Abs 0.04 0.00 - 0.04 x10(3)/mcL Scan, Peripheral Blood Result Value Ref Range Plat Estimate Decreased RBC Morphology Normal Macrocytes 1-5 /HPF Ovalocytes 1-5 /HPF Atypical Lymph Many Toxic Granulation Present Vacuolated Neut Present Giant Platelets Less than 1 /HPF Magnesium Result Value Ref Range Magnesium 1.04 0.69 - 1.07 mmol/L Phosphorus Result Value Ref Range Phosphorus 3.8 2.5 - 4.5 mg/dL Recent Labs 02/22/20 023 WBC 9.6* HGB 9.7* HCT 28.5* PLATELET 97* Recent Labs 02/23/2015402/22/2022902/21/20203502/21/20154 NA -- 136 -- 135 K -- 4.1 4.1 3.0* CL -- 103 -- 101 CO2 -- 25 -- 24 BUN -- 26* -- 22* CREATININE -- 0.73* -- 0.69* GLUCOSE -- 126 -- 130 CALCIUM -- 7.4* -- 7.2* MAGNESIUM 1.04 -- -- 0.90 PHOS 3.8 -- -- 3.3 DARYN creat: 0.8 Imaging: no recent ID Recommendations 02/21/2020: - continue azithromycin 500mg daily for 14 days as both treatment of campylobacter as well as cryptosporidium - START nitazoxanide 500mg BID for a total of 14 days of treatment. We have spoken with pharmacy, who is ordering the medication. - continue to monitor stool output ASSESSMENT: Wally Aguilar is a 69 y.o. male POD10 s/p cystoprostatectomy with ileal conduit for MIBC who's post-op course is complicated by poor PO intake and infectious diarrhea. He has been HDS and afebrile overnight. Diarrhea is improving, less volume, flexi-seal removed. Stool campylobacter antigen and cryptosporidium found to be positive, will treat for 14 days with azithromycin (02/18 firstdose --> 03/03) and nitazoxanide 500mg bid (02/21 first dose?--> 03/07). TPN started through [facility] 4days ago to help support nutrition as PO intake is minimal. Ordered calorie count to better ascertain his status. Will work to advance mobility with PT/OT and nursing staff. Ordered miconazole tid for erythematous scrotum likely irritated from persistent contact with diarrhea. Will continue continue to monitor. Goals for today: OOB walk x4 daily PT/OT eval for dispo planning Calorie counts abx PLAN: Neuro: pain control: tylenol, tramadol, lidoderm patch Card: HDS, Monitor vital signs, [id number] Pulm: albuterol, ambulation, ISC, cough, deep breathing FEN: replete lytes prn, strict I/O's GI: bowel meds prn, Regular diet TPN Adult, zofran, compazine, protonix, tums Renal/: monitor urine output Heme: no active issues ID: Miconazole to scrotum, azithromycin &nitazoxanide, perioperative ceftriaxone, flagyl completed Endo: no active issues Home Meds: atorvastatin, metoprolol, chantix PPx: lovenox, SCDs, ambulation, ISC, cough, deep breathing Dispo: Stable, Attempt Cardiopulmonary Resuscitation - Inpatient La Jean-Baptiste MD 02/23/2020 Pgr. [phone] * Lizbeth Abdi RN - 02/22/2020 2:37 PM EDT OFFICE OF CARE MANAGEMENT Machine Shop Repair Technician Follow-up Note Lizbeth Abdi RN reviewed record and discussed patient with Care Team. Patient plan of care discussed in multidisciplinary rounds and assessment for continuing care and discharge needs. Diagnosis: Bladder Cancer LOS Hospital: 9 days INSURANCE: Payor: MEDICARE / Plan: MEDICARE PART A & B / Product Type: *No Product type* / SECONDARY INSURANCE: MEDICAID [place] DECISION MAKER: Attempt Cardiopulmonary Resuscitation - Inpatient <no information> Patient continues to require hospitalization. Per team, patient requires inpatient status. Discharge date planned for 02/25 if medically ready. Current Referral in place: Mani Martinez for RN Transportation: Tray hdez will drive patient home via private vehicle when medically ready. Machine Shop Repair Technician to follow with team and family to assist with discharge needs when patient ready for discharge. Lizbeth Abdi RN Case Management pgr [phone] * Zaira Rondon RD - 02/22/2020 10:23 AM EDT Nutrition Progress Note Patient s/p from a cystoprostatectomy with ileal conduit for MIBC Wally Aguilar is a 69 y.o. male Reason for intervention: TPN Comments: TPN to provide full nutrition of 1460 calores and 115 g protein in 2.4 liters Potassium decreased by 60 mEq to normal amount of 80 mEq. I was able to discuss plan with provider [id number]. Nutrition Support: TPN Medication Recent History (Show up to 3 orders; newest on the left. Changes between the two most recent orders are indicated.) Start date and time 02/22/2020 1800 02/21/2020 1800 02/20/2020 1800 TPN Adult [[id number]] TPN Adult [[id number]] TPN Adult [[id number]] Order Status Active Active Last Admin New Bag at 02/21/2020 1836 by Carlos Manuel Maldonado RN New Bag at 02/20/2020 1901 by Chantale Vee RN Additives adult multivitamin 10 mL 10 mL 10 mL adult trace element 0.5 mL 0.5 mL 0.5 mL Electrolytes sodium phosphate 44 mmol 44 mmol 44 mmol potassium chloride 80 mEq 140 mEq 80 mEq sodium acetate 130 mEq 130 mEq 130 mEq calcium gluconate 10 mEq 10 mEq 10 mEq magnesium sulfate 30 mEq 30 mEq 30 mEq Dextrose dextrose 70% 147 g 147 g 147 g Amino Acids amino acid 15% no.5 (Clinisol) 115 g 115 g 115 g QS Base sterile water 1,097.23 mL 1,067.23 mL 1,097.23 mL Lipid fat emulsion 30 % 50 g 50 g 50 g Energy Contribution Proteins 460 kcal 460 kcal 460 kcal Dextrose 499.8 kcal 499.8 kcal 499.8 kcal Lipids 501 kcal 501 kcal 501 kcal Total 1,460.8 kcal 1,460.8 kcal 1,460.8 kcal Electrolyte Ion Calculated Amount Sodium 188.67 mEq 188.67 mEq 188.67 mEq Potassium 80 mEq 140 mEq 80 mEq Calcium 10 mEq 10 mEq 10 mEq Magnesium 30 mEq 30 mEq 30 mEq Aluminum -- -- -- Phosphate 46.51 mmol 46.51 mmol 46.51 mmol Chloride 80 mEq 140 mEq 80 mEq Acetate 227.37 mEq 227.37 mEq 227.37 mEq Other Total Amino Acid 115 g 115 g 115 g Total Amino Acid/kg 2.09 g/kg 2.15 g/kg 2.15 g/kg Glucose Infusion Rate 1.86 mg/kg/min 1.86 mg/kg/min 1.9 mg/kg/min Osmolarity (Estimated) 1,056.63 1,106.63 1,056.63 Volume 2,400 mL 2,400 mL 2,400 mL Rate 100 mL/hr 100 mL/hr 100 mL/hr Dosing Weight 54.9 kg 53.6 kg 53.6 kg [facility] Results Component Value Date NA 136 02/22/2020 K 4.1 02/22/2020 CL 103 02/22/2020 CO2 25 02/22/2020 BUN 26 (H) 02/22/2020 CREATININE 0.73 (L) 02/22/2020 GFRAA 111 02/22/2020 ESTGFR 96 02/22/2020 MAGNESIUM 0.90 02/21/2020 CALCIUM 7.4 (L) 02/22/2020 PHOS 3.3 02/21/2020 AST 32 02/20/2020 ALT 39 02/20/2020 ALKPHOS 100 02/20/2020 BILITOT 0.2 02/20/2020 BILIDIR 0.1 02/20/2020 TRIG 126 01/25/2020 CRP 1.2 01/25/2020 IRON 81 01/25/2020 No results found for: POCGLU Skin Status: Shift Pressure Injury Prevention Occiput: No Injury Thoracic Spine: No Injury Sacral: No Injury Ischial - left: No Injury Ischial - right: No Injury Heel - left: No Injury Heel - right: No Injury Elbow - left: No Injury Elbow - right: No Injury Device Sites: O2 sat monitor, SCD's/venodynes, IV sites, Flexiseal(urostomy) Other Sites: DARYN Relevant medications: Last Bowel Movement: 02/22/20 Intake/Output Summary (Last 24 hours) at 02/22/2020 1023 Last data filed at 02/22/2020 0827 Gross per 24 hour Intake 3436 ml Output 2450 ml Net 986 ml Admit Weight: 54.8 kg Estimated body mass index is 19.53 kg/m?? as calculated from the following: Height as of this encounter: 167.6 cm (5' 6). Weight as of this encounter: 54.9 kg (121 lb). [place] Body Weight: 63.8 kg Usual Body Weight: 58.5 kg Wt Readings from Last 10 Encounters: 02/21/20 54.9 kg (121 lb) 02/15/20 54.4 kg (120 lb) 01/25/20 54.8 kg (120 lb 12.8 oz) 01/15/20 56.2 kg (124 lb) 12/26/19 56.7 kg (125 lb) 12/19/19 58.5 kg (129 lb) 12/05/19 58.6 kg (129 lb 3.2 oz) 11/14/19 57.6 kg (127 lb) 11/07/19 57.6 kg (127 lb) 10/24/19 57.4 kg (126 lb 9.6 oz) Assessment: Estimated needs: Calories: 25-30 (6133-0868 kcal/kg) Protein: 2 grams (115g/kg) Nutrition Focused Physical Exam (NFPE): Performed on 02/19/20. Subcutaneous fat loss at Orbital region: Mild Upper arm region (triceps/biceps): Mild Thoracic and lumbar region (ribs, lower back and maxillary line): Mild Lean muscle loss to Yazdanism region (temporalis muscle): Moderate Clavicle bone region (pectoralis major): Moderate Dorsal hand (interosseous muscle): Moderate Shoulder (deltoid): Moderate Scapular bone region (latissimus dorsi, trapezius muscles): Not assessed Thigh region (quadriceps muscle): Mild Posterior calf region (gastrocnemius muscle): Mild Fluid accumulation: None present Nutrition intake and intake history/Interview: No nutrition in more than a week and 11 # weight loss(8% UBW) in last 2 months per eDH flowsheets and patient. Protein-calorie Malnutrition: <75% of estimated energy requirement for >7days, 7.5% weight loss in 3 months and Moderate lean muscle loss is consistent with severe protein-calorie malnutrition in the setting of acute illness or injury (Bibiana, JPEN J Parenteral Enteral Nutr. 2011; 36(3): 273-83) Nutrition to continue to follow up while inpatient. ZAIRA RONDON RD Pager #:[phone] * La Jean-Baptiste MD - 02/22/2020 6:05 AM EDT Urology Inpatient Progress Note Patient Name: Wally Aguilar Patient Age: 69 y.o. Birthdate: 1950 Admit date: 02/13/2020 Attending Physician: Nima Armstrong MD ID: Wally Aguilar is a 69 y.o. male LOS: 9 days 9 Days Post-Op from a cystoprostatectomy with ileal conduit for MIBC. 24hr events: ?? No overnight events ?? Minimal oral intake ?? Continued diarrhea, crypto & campylobacter + ?? No complaints this AM. ?? Ambulated x2 yesterday ?? Pain well controlled. ?? No cp/sob. ?? Lovenox teaching completed yesterday O: Last value Range last 24hrs Temperature Temp: 36.7 ??C (98.1 ??F) Temp: [36.3 ??C (97.3 ??F)-36.8 ??C (98.2 ??F)] Heart Rate Heart Rate: 92 Heart Rate: [90-93] Blood Pressure BP: 119/69 BP: (116-119)/(68-71) Respiratory Rate Resp: 14 Resp: [14-18] SpO2 SpO2: 94 % SpO2: [94 %-95 %] 02/20 0701 - 02/21 0700 In: 3212 [P.O.:350] Out: 3075 [Urine:1325] DARYN drain: 430cc serous Physical Exam: General: NAD, resting in bed,withdrawn/flat affect HEENT: normocephalic, anicteric sclerae CVS: regular rate Pulm: normal respirations, no use of accessory muscles, no stridor/audible wheezing Abd: soft, appropriately tender, non-distended. No guarding. Midline incision is c/d/i. DARYN drain with serous output. Flexi-seal in place : Urostomy PPV draining CYU. Scrotal erythema on posterior aspect. Skin: warm, dry Ext: well perfused, no edema, RLE no palpable pulses. Neuro: Grossly intact, nonfocal Labs: Recent Results (from the past 72 hour(s)) Prepare Platelets, Apheresis Result Value Ref Range Dispensed? Yes Prothrombin Time Result Value Ref Range PT 13.1 (H) 9.4 - 12.5 sec INR 1.1 APTT Result Value Ref Range PTT 28 25 - 37 sec Platelet count Result Value Ref Range Platelets 102 (L) 145 - 357 x10(3)/mcL Plat Immature % 8.9 (H) 0.0 - 7.4 % Stool culture Specimen: Stool NO PRECAUTIONS NEEDED PER GI. Result Value Ref Range Stool Culture No enteric pathogens isolated Reduced normal enteric sheri isolated Campylobacter Antigen Specimen: Stool NO PRECAUTIONS NEEDED PER GI. Result Value Ref Range Campylobacter Ag Immunoassay Positive for Campylobacter Antigen (A) Shiga Toxin Detection Specimen: Stool NO PRECAUTIONS NEEDED PER GI. Result Value Ref Range Shiga Toxin Assay Test not performed due to no enteric growth. Magnesium Result Value Ref Range Magnesium 0.77 0.69 - 1.07 mmol/L Phosphorus Result Value Ref Range Phosphorus 2.8 2.5 - 4.5 mg/dL Hepatic Function Panel Result Value Ref Range Total Protein 3.8 (L) 6.1 - 8.0 gm/dL Albumin 2.2 (L) 3.2 - 5.2 gm/dL AST 32 0 - 39 unit/L ALT 39 0 - 55 unit/L Alk Phos 100 40 - 130 unit/L Total Bilirubin 0.2 0.2 - 1.3 mg/dL Bili, Direct 0.1 0.0 - 0.3 mg/dL Basic Metabolic Panel (non-fasting) Result Value Ref Range Glucose Lvl 124 65 - 199 mg/dL BUN 15 10 - 20 mg/dL Creatinine 0.81 0.80 - 1.50 mg/dL Sodium 137 135 - 145 mmol/L Potassium 3.2 (L) 3.5 - 5.0 mmol/L Chloride 107 98 - 107 mmol/L CO2 22 22 - 31 mmol/L Anion Gap 8 5 - 15 mmol/L Calcium 7.1 (L) 8.5 - 10.5 mg/dL eGFR 92 >=60 mL/min/1.73 m?? eGFR 107 >=60 mL/min/1.73 m?? Hemogram Result Value Ref Range WBC 9.4 4.0 - 9.5 x10(3)/mcL RBC 2.92 (L) 4.58 - 5.54 x10(6)/mcL Hemoglobin 9.2 (L) 13.7 - 16.5 gm/dL Hematocrit 28.0 (L) 40.5 - 48.5 % MCV 95.9 (H) 82.9 - 93.1 fL MCH 31.5 27.5 - 32.1 pg MCHC 32.9 32.0 - 35.7 gm/dL Platelets 93 (L) 145 - 357 x10(3)/mcL RDWSD 57.1 (H) 36.0 - 45.0 fL RDWCV 16.2 (H) 11.4 - 13.8 % MPV 11.8 7.6 - 12.9 fL nRBC % Auto 0.0 % nRBC Abs Auto 0.000 0.000 - 0.000 x10(3)/mcL Differential, Automated Result Value Ref Range Neutrophils % 72.4 % Neutr Abs (ANC) 6.80 (H) 1.70 - 6.10 x10(3)/mcL Lymphocytes % 13.2 % Lymphocytes Abs 1.2 0.9 - 3.2 x10(3)/mcL Monocytes % 11.1 % Monocyte Abs 1.0 (H) 0.3 - 0.9 x10(3)/mcL Eosinophils % 2.3 % Eosinophils Abs 0.2 0.0 - 0.4 x10(3)/mcL Basophils % 0.3 % Basophils Abs 0.0 0.0 - 0.1 x10(3)/mcL Immature Gran % 0.70 % Ana Gran Abs 0.07 (H) 0.00 - 0.04 x10(3)/mcL Basic Metabolic Panel (non-fasting) Result Value Ref Range Glucose Lvl 130 65 - 199 mg/dL BUN 22 (H) 10 - 20 mg/dL Creatinine 0.69 (L) 0.80 - 1.50 mg/dL Sodium 135 135 - 145 mmol/L Potassium 3.0 (CRIT) 3.5 - 5.0 mmol/L Chloride 101 98 - 107 mmol/L CO2 24 22 - 31 mmol/L Anion Gap 10 5 - 15 mmol/L Calcium 7.2 (L) 8.5 - 10.5 mg/dL eGFR 98 >=60 mL/min/1.73 m?? eGFR 114 >=60 mL/min/1.73 m?? Magnesium Result Value Ref Range Magnesium 0.90 0.69 - 1.07 mmol/L Phosphorus Result Value Ref Range Phosphorus 3.3 2.5 - 4.5 mg/dL Potassium Result Value Ref Range Potassium 4.1 3.5 - 5.0 mmol/L Basic Metabolic Panel (non-fasting) Result Value Ref Range Glucose Lvl 126 65 - 199 mg/dL BUN 26 (H) 10 - 20 mg/dL Creatinine 0.73 (L) 0.80 - 1.50 mg/dL Sodium 136 135 - 145 mmol/L Potassium 4.1 3.5 - 5.0 mmol/L Chloride 103 98 - 107 mmol/L CO2 25 22 - 31 mmol/L Anion Gap 8 5 - 15 mmol/L Calcium 7.4 (L) 8.5 - 10.5 mg/dL eGFR 96 >=60 mL/min/1.73 m?? eGFR 111 >=60 mL/min/1.73 m?? Hemogram Result Value Ref Range WBC 9.6 (H) 4.0 - 9.5 x10(3)/mcL RBC 3.07 (L) 4.58 - 5.54 x10(6)/mcL Hemoglobin 9.7 (L) 13.7 - 16.5 gm/dL Hematocrit 28.5 (L) 40.5 - 48.5 % MCV 92.8 82.9 - 93.1 fL MCH 31.6 27.5 - 32.1 pg MCHC 34.0 32.0 - 35.7 gm/dL Platelets 97 (L) 145 - 357 x10(3)/mcL RDWSD 54.2 (H) 36.0 - 45.0 fL RDWCV 16.1 (H) 11.4 - 13.8 % MPV 12.1 7.6 - 12.9 fL nRBC % Auto 0.0 % nRBC Abs Auto 0.000 0.000 - 0.000 x10(3)/mcL Differential, Automated Result Value Ref Range Neutrophils % 75.8 % Neutr Abs (ANC) 7.24 (H) 1.70 - 6.10 x10(3)/mcL Lymphocytes % 13.2 % Lymphocytes Abs 1.3 0.9 - 3.2 x10(3)/mcL Monocytes % 9.4 % Monocyte Abs 0.9 0.3 - 0.9 x10(3)/mcL Eosinophils % 0.9 % Eosinophils Abs 0.1 0.0 - 0.4 x10(3)/mcL Basophils % 0.3 % Basophils Abs 0.0 0.0 - 0.1 x10(3)/mcL Immature Gran % 0.40 % Ana Gran Abs 0.04 0.00 - 0.04 x10(3)/mcL Scan, Peripheral Blood Result Value Ref Range Plat Estimate Decreased RBC Morphology Normal Macrocytes 1-5 /HPF Ovalocytes 1-5 /HPF Atypical Lymph Many Toxic Granulation Present Vacuolated Neut Present Giant Platelets Less than 1 /HPF Recent Labs 02/22/20 0230 02/20/20 0204 02/19/20 1430 WBC 9.6* 9.4 -- HGB 9.7* 9.2* -- HCT 28.5* 28.0* -- PLATELET 97* 93* 102* PT -- -- 13.1* INR -- -- 1.1 PTT -- -- 28 Recent Labs 02/22/20 0230 02/21/20 2036 02/21/20 0155 02/20/20 0204 NA 136 -- 135 137 K 4.1 4.1 3.0* 3.2* CL 103 -- 101 107 CO2 25 -- 24 22 BUN 26* -- 22* 15 CREATININE 0.73* -- 0.69* 0.81 GLUCOSE 126 -- 130 124 CALCIUM 7.4* -- 7.2* 7.1* MAGNESIUM -- -- 0.90 0.77 PHOS -- -- 3.3 2.8 DARYN creat: 0.8 Imaging: no recent ID Recommendations 02/21/2020: - continue azithromycin 500mg daily for 14 days as both treatment of campylobacter as well as cryptosporidium - START nitazoxanide 500mg BID for a total of 14 days of treatment. We have spoken with pharmacy, who is ordering the medication. - continue to monitor stool output ASSESSMENT: Wally Aguilar is a 69 y.o. male POD9 s/p cystoprostatectomy with ileal conduit for MIBC who's post-op course is complicated by poor PO intake and infectious diarrhea. He has been HDS andafebrile overnight. He continues to have large volume diarrhea, flexi-seal in place. Stool campylobacter antigen and cryptosporidium found to be positive, will treat for 14 days with azithromycin (02/18 first dose --> 03/03) and nitazoxanide 500mg bid (02/21 first dose?--> 03/07). [facility]PN [facility] 3[facility] ago to help support nutrition as PO intake is minimal. Ordered calorie count to better ascertain his status. Will work to advance mobility with PT/OT. Ordered miconazole tid for erythematous scrotum likely irritated from persistent contact with diarrhea. Will continue continue tomonitor. Goals for today: OOB walk x4 daily PT/OT Calorie counts Begin nitazoxanide upon arrival to [facility] Will remove ureteral stents following 120mg gentamicin PLAN: Neuro: pain control: tylenol, tramadol, lidoderm patch Card: HDS, Monitor vital signs, [id number] Pulm: albuterol, ambulation, ISC, cough, deep breathing FEN: replete lytes prn, strict I/O's GI: bowel meds prn, Regular diet TPN Adult, zofran, compazine, protonix, tums Renal/: monitor urine output Heme: no active issues ID: Miconazole to scrotum, azithromycin &nitazoxanide, perioperative ceftriaxone, flagyl completed Endo: no active issues Home Meds: atorvastatin, metoprolol, chantix PPx: lovenox, SCDs, ambulation, ISC, cough, deep breathing Dispo: Stable, Attempt Cardiopulmonary Resuscitation - Inpatient La Jean-Baptiste MD 02/22/2020 Pgr. [phone] * Sandra Horne RN - 02/21/2020 10:59 AM EDTSummary: Port kraus needle change Pt due for kraus needle change. Has continuous TPN infusing. TPN stopped by primary RN for pt. Portflushed well and de-accessed. Using sterile procedure and per policy and procedure, port was re-accessed. Good blood return and flushed easily. Pt tolerated well. * Zaira Rondon RD - 02/21/2020 10:27 AM EDT Nutrition Progress Note Patient s/p from a cystoprostatectomy with ileal conduit for MIBC Wally Aguilar is a 69 y.o. male Reason for intervention: TPN Comments: TPN to provide full nutrition of 1460 calores and 115 g protein in 2.4 liters Potassium increased by 60 mEq to 140 mEq. I was able to discuss plan with provider [id number]. Nutrition Support: TPN Medication Recent History (Show up to 3 orders; newest on the left. Changes between the two most recent orders are indicated.) Start date and time 02/21/2020 1800 02/20/2020 1800 02/19/2020 1800 TPN Adult [[id number]] TPN Adult [[id number]] TPN Adult [[id number]] Order Status Active Active Discontinued Last Admin New Bag at 02/20/2020 1901 by Chantale Vee RN New Bag at 02/19/2020 1859 by Elsy Haynes RN Additives adult multivitamin 10 mL 10 mL 10 mL adult trace element 0.5 mL 0.5 mL 0.5 mL Electrolytes sodium phosphate 44 mmol 44 mmol 36 mmol potassium chloride 140 mEq 80 mEq 10 mEq sodium acetate 130 mEq 130 mEq 130 mEq calcium gluconate 10 mEq 10 mEq 10 mEq magnesium sulfate 30 mEq 30 mEq 24 mEq Dextrose dextrose 70% 147 g 147 g 147 g Amino Acids amino acid 15% no.5 (Clinisol) 115 g 115 g 115 g QS Base sterile water 1,067.23 mL 1,097.23 mL 1,136.38 mL Lipid fat emulsion 30 % 50 g 50 g 50 g Energy Contribution Proteins 460 kcal 460 kcal 460 kcal Dextrose 499.8 kcal 499.8 kcal 499.8 kcal Lipids 501 kcal 501 kcal 501 kcal Total 1,460.8 kcal 1,460.8 kcal 1,460.8 kcal Electrolyte Ion Calculated Amount Sodium 188.67 mEq 188.67 mEq 178 mEq Potassium 140 mEq 80 mEq 10 mEq Calcium 10 mEq 10 mEq 10 mEq Magnesium 30 mEq 30 mEq 24 mEq Aluminum -- -- -- Phosphate 46.51 mmol 46.51 mmol 38.51 mmol Chloride 140 mEq 80 mEq 10 mEq Acetate 227.37 mEq 227.37 mEq 227.37 mEq Other Total Amino Acid 115 g 115 g 115 g Total Amino Acid/kg 2.15 g/kg 2.15 g/kg 2.15 g/kg Glucose Infusion Rate 1.9 mg/kg/min 1.9 mg/kg/min 1.9 mg/kg/min Osmolarity (Estimated) 1,106.63 1,056.63 984.4 Volume 2,400 mL 2,400 mL 2,400 mL Rate 100 mL/hr 100 mL/hr 100 mL/hr Dosing Weight 53.6 kg 53.6 kg 53.6 kg [facility] Results Component Value Date NA 135 02/21/2020 K 3.0 (CRIT) 02/21/2020 CL 101 02/21/2020 CO2 24 02/21/2020 BUN 22 (H) 02/21/2020 CREATININE 0.69 (L) 02/21/2020 GFRAA 114 02/21/2020 ESTGFR 98 02/21/2020 MAGNESIUM 0.90 02/21/2020 CALCIUM 7.2 (L) 02/21/2020 PHOS 3.3 02/21/2020 AST 32 02/20/2020 ALT 39 02/20/2020 ALKPHOS 100 02/20/2020 BILITOT 0.2 02/20/2020 BILIDIR 0.1 02/20/2020 TRIG 126 01/25/2020 CRP 1.2 01/25/2020 IRON 81 01/25/2020 No results found for: POCGLU Skin Status: Shift Pressure Injury Prevention Occiput: No Injury Thoracic Spine: No Injury Sacral: No Injury Ischial - left: No Injury Ischial - right: No Injury Heel - left: No Injury Heel - right: No Injury Elbow - left: No Injury Elbow - right: No Injury Device Sites: O2 sat monitor, IV sites, SCD's/venodynes Other Sites: DARYN, Urostomy Relevant medications: Last Bowel Movement: 02/20/20 Intake/Output Summary (Last 24 hours) at 02/21/2020 1027 Last data filed at 02/21/2020 0810 Gross per 24 hour Intake 1865 ml Output 2440 ml Net -575 ml Admit Weight: 54.8 kg Estimated body mass index is 19.08 kg/m?? as calculated from the following: Height as of this encounter: 167.6 cm (5' 6). Weight as of this encounter: 53.6 kg (118 lb 3.2 oz). [place] Body Weight: 63.8 kg Usual Body Weight: 58.5 kg Wt Readings from Last 10 Encounters: 02/19/20 53.6 kg (118 lb 3.2 oz) 02/15/20 54.4 kg (120 lb) 01/25/20 54.8 kg (120 lb 12.8 oz) 01/15/20 56.2 kg (124 lb) 12/26/19 56.7 kg (125 lb) 12/19/19 58.5 kg (129 lb) 12/05/19 58.6 kg (129 lb 3.2 oz) 11/14/19 57.6 kg (127 lb) 11/07/19 57.6 kg (127 lb) 10/24/19 57.4 kg (126 lb 9.6 oz) Assessment: Estimated needs: Calories: 25-30 (5543-3938 kcal/kg) Protein: 2 grams (115g/kg) Nutrition Focused Physical Exam (NFPE): Performed on 02/19/20. Subcutaneous fat loss at Orbital region: Mild Upper arm region (triceps/biceps): Mild Thoracic and lumbar region (ribs, lower back and maxillary line): Mild Lean muscle loss to Yazdanism region (temporalis muscle): Moderate Clavicle bone region (pectoralis major): Moderate Dorsal hand (interosseous muscle): Moderate Shoulder (deltoid): Moderate Scapular bone region (latissimus dorsi, trapezius muscles): Not assessed Thigh region (quadriceps muscle): Mild Posterior calf region (gastrocnemius muscle): Mild Fluid accumulation: None present Nutrition intake and intake history/Interview: No nutrition in more than a week and 11 # weight loss(8% UBW) in last 2 months per eDH flowsheets and patient. Protein-calorie Malnutrition: <75% of estimated energy requirement for >7days, 7.5% weight loss in 3 months and Moderate lean muscle loss is consistent with severe protein-calorie malnutrition in the setting of acute illness or injury (Bibiana, JPTHOMAS J Parenteral Enteral Nutr. 2011; 36(3): 273-83) Nutrition to continue to follow up while inpatient. ZAIRA RONDON RD Pager #:[phone] * Claudio Neal MD - 02/21/2020 7:16 AM EDT Images from the original note were not included. DIVISION OF GASTROENTEROLOGY & HEPATOLOGY CONSULT PROGRESS NOTE NAME: Wally Aguilar : 1950 Previous History: 69/M hx??bladder ca??(s/p recent chemo)??adm 02/14 for cystoprostatectomy w/ ileal conduit. GI consulted re: diarrhea??and odynophagia. ?? The patient was recently diagnosed with urothelial cancer and is s/p cisplastin/gemcitabine chemotherapy. Since last cycle in December patient has described intermittent periods of liquid, non-bloody diarrhea. He was admitted for cystoprostectomy on 02/12 and received ceftrixone and and flagyl on 02/12 and 02/13. He also received alvimopan on 02/12, 02/13 and 02/14 to prevent post-op ileus. Since that time his diarrhea has worsened. He describes 4-5 lquid, brown/dark green episodes of diarrhea per day. He denies melena or hematochezia. He does not have abdominal pain associated with diarrhea. He was C.Diff negative. O + P is pending. He has not been trialed on any antidiarrheals. FMS palced on 02/17 with large voume liquid stool since then. He tested positive for campylobacter on 02/20/20. INTERVAL: - No overnight events - 800 ml stool recorded from rectal tube in 24 hours which is better from last few days. - Poor oral intake - Persistent diarrhea. Campylobacter and cryptosporidium positive.Giardia negative. Stool culture pending. Shiga toxin assay not performed due to no enteric growth. - Vitals stable -TPN for Poor oral intake. Calorie count starting yesterday. - Low potassium of 3.0 Past Medical History: Diagnosis Date ??? Asthma ??? Cancer kidney ??? Chronic pain right calf paiins him since his hip surgery ??? COPD (chronic obstructive pulmonary disease) pt has asthma but states he does not have copd or emphysema ??? Delayed emergence from anesthesia ??? GERD (gastroesophageal reflux disease) ??? Hypertension ??? Intraoperative complication during his only surgery (hip from a fall off a doroteo[place] 1990 [place] he woke up during the procedure ??? PAD (peripheral artery disease) ??? Peptic ulcer disease ??? Seizure last seizure was 20 years ago ~ suffered from epilepsy but does not seem to be an issue anymore ??? Status post chemotherapy just had 8 weeks pf treatments 3 weeks ago ??? Transfusion history does not know ??? Urolithiasis ??? Vertigo balance problems only from the left leg being longer than the right leg from his hip surgery Past Surgical History: Procedure Laterality Date ??? AORTO-ILIAC BYPASS GRAFT endarterectomy ??? CT GUIDED BIOPSY LYMPH NODE(CHEST/ABD/PELVIS) 01/31/2020 CT Guided Biopsy Lymph Node (Chest/Abd/Pelvis) 01/31/2020 [facility] RAD CAT SCAN ??? HIP FRACTURE SURGERY Right 1991 ??? INGUINAL HERNIA REPAIR Right ??? IR MEDIPORT PLACEMENT/EXCHANGE 11/27/2019 IR Mediport Placement 11/27/2019 Jason Lujan, NAHID [facility] INTERVENTIONL RAD ??? PRO CYSTECTOMY, ILEAL CONDUIT/SIGMOID BLADDER N/A 02/13/2020 @CYSTECTOMY, COMPLETE, WITH ILEAL CONDUIT (WRVU 36.33) performed by Nima Armstrong MD at [facility] LYNETTE ??? PRO NEEDLE BIOPSY LIVER N/A 02/13/2020 LIVER BIOPSY performed by Nima Armstrong MD at [facility] MAIN OR ??? PRO REMOVE PELVIS LYMPH NODES Bilateral 02/13/2020 @LYMPHADENECTOMY, PELVIC, INCLUDING MULTIPLE NODES-FELA (WRVU 14.06) performed by Nima Armstrong MDat [facility] MAIN OR Social History Socioeconomic History ??? Marital status: Single Spouse name: Not on file ??? Number of children: Not on file ??? Years of education: Not on file ??? Highest education level: Not on file Occupational History ??? Not on file Social Needs ??? Financial resource strain: Not on file ??? Food insecurity Worry: Not on file Inability: Not on file ??? Transportation needs Medical: Not on file Non-medical: Not on file Tobacco Use ??? Smoking status: Current Every Day Smoker Packs/day: 2.00 Years: 50.00 Pack years: 100.00 ??? Smokeless tobacco: Never Used Substance and Sexual Activity ??? Alcohol use: Yes Alcohol/week: 14.0 standard drinks Types: 14 Standard drinks or equivalent per week Comment: 2 ??? Drug use: Not Currently ??? Sexual activity: Not Currently Lifestyle ??? Physical activity Days per week: Not on file Minutes per session: Not on file ??? Stress: Not on file Relationships ??? Social connections Talks on phone: Not on file Gets together: Not on file Attends orthodoxy service: Not on file Active member of club or organization: Not on file Attends meetings of clubs or organizations: Not on file Relationship status: Not on file ??? Intimate partner violence Fear of current or ex partner: Not on file Emotionally abused: Not on file Physically abused: Not on file Forced sexual activity: Not on file Other Topics Concern ??? Not on file Social History Narrative 100 pack year smoker and continues to smoke 1/2-1 ppd. Ongoing moderately heavy alcohol use 2 drinks a night. No drug use. He grew up in [facility] and finished 11th grade. 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 He is and has 3 children, 2 live in [place] and one daughter in the [employer] in [facility]; he has limited contact with them. His brother David age 66 [address] but has significant health challenges as well. He has a [employer] test case developer, Ketty Ricketts who is also his landlord and is instrumental in helping him manage his affairs. No family history on file. MEDICATIONS Scheduled: ??? potassium chloride 10 mEq Intravenous Q2H ??? azithromycin 500 mg Oral Daily ??? miconazole nitrate Topical (Top) BID ??? pantoprazole 40 mg Intravenous BID ??? lidocaine 3 patch Transdermal Q24H And ??? lidocaine 1 patch Transdermal Q24H ??? enoxaparin 40 mg Subcutaneous Q24H CARLOS ??? aspirin 81 mg Oral Daily ??? albuteroL 2 puff Inhalation 4 Times Daily ??? atorvastatin 20 mg Oral Daily ??? metoprolol succinate XL 25 mg Oral Daily ??? sodium chloride 0.9 % (flush) 5 mL Intravenous BID ??? varenicline 0.5 mg Oral BID Followed by ??? varenicline 1 mg Oral BID Drips: ??? TPN Adult 100 mL/hr at 02/20/20 1901 PRN: acetaminophen, phenol 1.4%, calcium carbonate, prochlorperazine, sodium chloride 0.9 % (flush), lidocaine, traMADoL Allergies Allergen Reactions ??? Wellbutrin [Bupropion Hcl] Other (See Comments) Unknown on pt's chart from outside facility OBJECTIVE Vitals: T Temp: [36.7 ??C (98.1 ??F)-37.3 ??C (99.1 ??F)] HR Heart Rate: [85] BP BP: (111-134)/(62-74) RR Resp: [16-22] SpO2 SpO2: [94 %-95 %] 02/19 0701 - 02/20 0700 In: 2619 [P.O.:180; I.V.:368] Out: 2190 [Urine:800] Wt Last 53.6 kg (118 lb 3.2 oz) Admit 54.8 kg Physical Exam: GEN: Awake, alert, oriented x 3, no acute distress ABDOMEN: Soft, normoactive bowel sounds, tender around paraumbilcal area, non-distended EXTREM: Warm NEURO: Grossly intact, moves all extremities. SKIN: mid abdominal suture sites healing well with no erythema or discharge. Labs: Recent Results (from the past 72 hour(s)) Hemogram Result Value Ref Range WBC 7.6 4.0 - 9.5 x10(3)/mcL RBC 3.05 (L) 4.58 - 5.54 x10(6)/mcL Hemoglobin 9.6 (L) 13.7 - 16.5 gm/dL Hematocrit 28.9 (L) 40.5 - 48.5 % MCV 94.8 (H) 82.9 - 93.1 fL MCH 31.5 27.5 - 32.1 pg MCHC 33.2 32.0 - 35.7 gm/dL Platelets 78 (L) 145 - 357 x10(3)/mcL RDWSD 57.1 (H) 36.0 - 45.0 fL RDWCV 16.3 (H) 11.4 - 13.8 % MPV 11.1 7.6 - 12.9 fL nRBC % Auto 0.0 % nRBC Abs Auto 0.000 0.000 - 0.000 x10(3)/mcL Differential, Automated Result Value Ref Range Neutrophils % 68.1 % Neutr Abs (ANC) 5.21 1.70 - 6.10 x10(3)/mcL Lymphocytes % 14.8 % Lymphocytes Abs 1.1 0.9 - 3.2 x10(3)/mcL Monocytes % 13.3 % Monocyte Abs 1.0 (H) 0.3 - 0.9 x10(3)/mcL Eosinophils % 2.9 % Eosinophils Abs 0.2 0.0 - 0.4 x10(3)/mcL Basophils % 0.4 % Basophils Abs 0.0 0.0 - 0.1 x10(3)/mcL Immature Gran % 0.50 % Ana Gran Abs 0.04 0.00 - 0.04 x10(3)/mcL Basic Metabolic Panel (non-fasting) Result Value Ref Range Glucose Lvl 113 65 - 199 mg/dL BUN 10 10 - 20 mg/dL Creatinine 0.82 0.80 - 1.50 mg/dL Sodium 139 135 - 145 mmol/L Potassium 3.6 3.5 - 5.0 mmol/L Chloride 109 (H) 98 - 107 mmol/L CO2 23 22 - 31 mmol/L Anion Gap 7 5 - 15 mmol/L Calcium 7.4 (L) 8.5 - 10.5 mg/dL eGFR 92 >=60 mL/min/1.73 m?? eGFR 106 >=60 mL/min/1.73 m?? Creatinine Level Body Fluid DARYN Drain Result Value Ref Range Creat, BF 0.8 mg/dL Creat, BF Type DARYN Drain Giardia antigen ([facility]) Specimen: Stool Result Value Ref Range Giardia Screen Negative Negative Cryptosporidium Oocyst Antigen ([facility]) Specimen: Stool Result Value Ref Range Cryptosporidium Screen Positive (A) Negative Lactate, whole blood, send to lab ([facility]) Result Value Ref Range Lactate WB 1.0 0.5 - 2.2 mmol/L Hemogram Result Value Ref Range WBC 10.0 (H) 4.0 - 9.5 x10(3)/mcL RBC 3.07 (L) 4.58 - 5.54 x10(6)/mcL Hemoglobin 9.7 (L) 13.7 - 16.5 gm/dL Hematocrit 28.8 (L) 40.5 - 48.5 % MCV 93.8 (H) 82.9 - 93.1 fL MCH 31.6 27.5 - 32.1 pg MCHC 33.7 32.0 - 35.7 gm/dL Platelets 64 (L) 145 - 357 x10(3)/mcL RDWSD 55.1 (H) 36.0 - 45.0 fL RDWCV 16.3 (H) 11.4 - 13.8 % MPV 12.0 7.6 - 12.9 fL nRBC % Auto 0.0 % nRBC Abs Auto 0.000 0.000 - 0.000 x10(3)/mcL Differential, Automated Result Value Ref Range Neutrophils % 73.6 % Neutr Abs (ANC) 7.33 (H) 1.70 - 6.10 x10(3)/mcL Lymphocytes % 11.0 % Lymphocytes Abs 1.1 0.9 - 3.2 x10(3)/mcL Monocytes % 12.0 % Monocyte Abs 1.2 (H) 0.3 - 0.9 x10(3)/mcL Eosinophils % 2.4 % Eosinophils Abs 0.2 0.0 - 0.4 x10(3)/mcL Basophils % 0.4 % Basophils Abs 0.0 0.0 - 0.1 x10(3)/mcL Immature Gran % 0.60 % Ana Gran Abs 0.06 (H) 0.00 - 0.04 x10(3)/mcL Prepare Platelets, Apheresis Result Value Ref Range Dispensed? Yes Prothrombin Time Result Value Ref Range PT 13.1 (H) 9.4 - 12.5 sec INR 1.1 APTT Result Value Ref Range PTT 28 25 - 37 sec Platelet count Result Value Ref Range Platelets 102 (L) 145 - 357 x10(3)/mcL Plat Immature % 8.9 (H) 0.0 - 7.4 % Stool culture Specimen: Stool NO PRECAUTIONS NEEDED PER GI. Result Value Ref Range Stool Culture Culture in progress Reduced normal enteric sheri isolated Campylobacter Antigen Specimen: Stool NO PRECAUTIONS NEEDED PER GI. Result Value Ref Range Campylobacter Ag Immunoassay Positive for Campylobacter Antigen (A) Shiga Toxin Detection Specimen: Stool NO PRECAUTIONS NEEDED PER GI. Result Value Ref Range Shiga Toxin Assay Test not performed due to no enteric growth. Magnesium Result Value Ref Range Magnesium 0.77 0.69 - 1.07 mmol/L Phosphorus Result Value Ref Range Phosphorus 2.8 2.5 - 4.5 mg/dL Hepatic Function Panel Result Value Ref Range Total Protein 3.8 (L) 6.1 - 8.0 gm/dL Albumin 2.2 (L) 3.2 - 5.2 gm/dL AST 32 0 - 39 unit/L ALT 39 0 - 55 unit/L Alk Phos 100 40 - 130 unit/L Total Bilirubin 0.2 0.2 - 1.3 mg/dL Bili, Direct 0.1 0.0 - 0.3 mg/dL Basic Metabolic Panel (non-fasting) Result Value Ref Range Glucose Lvl 124 65 - 199 mg/dL BUN 15 10 - 20 mg/dL Creatinine 0.81 0.80 - 1.50 mg/dL Sodium 137 135 - 145 mmol/L Potassium 3.2 (L) 3.5 - 5.0 mmol/L Chloride 107 98 - 107 mmol/L CO2 22 22 - 31 mmol/L Anion Gap 8 5 - 15 mmol/L Calcium 7.1 (L) 8.5 - 10.5 mg/dL eGFR 92 >=60 mL/min/1.73 m?? eGFR 107 >=60 mL/min/1.73 m?? Hemogram Result Value Ref Range WBC 9.4 4.0 - 9.5 x10(3)/mcL RBC 2.92 (L) 4.58 - 5.54 x10(6)/mcL Hemoglobin 9.2 (L) 13.7 - 16.5 gm/dL Hematocrit 28.0 (L) 40.5 - 48.5 % MCV 95.9 (H) 82.9 - 93.1 fL MCH 31.5 27.5 - 32.1 pg MCHC 32.9 32.0 - 35.7 gm/dL Platelets 93 (L) 145 - 357 x10(3)/mcL RDWSD 57.1 (H) 36.0 - 45.0 fL RDWCV 16.2 (H) 11.4 - 13.8 % MPV 11.8 7.6 - 12.9 fL nRBC % Auto 0.0 % nRBC Abs Auto 0.000 0.000 - 0.000 x10(3)/mcL Differential, Automated Result Value Ref Range Neutrophils % 72.4 % Neutr Abs (ANC) 6.80 (H) 1.70 - 6.10 x10(3)/mcL Lymphocytes % 13.2 % Lymphocytes Abs 1.2 0.9 - 3.2 x10(3)/mcL Monocytes % 11.1 % Monocyte Abs 1.0 (H) 0.3 - 0.9 x10(3)/mcL Eosinophils % 2.3 % Eosinophils Abs 0.2 0.0 - 0.4 x10(3)/mcL Basophils % 0.3 % Basophils Abs 0.0 0.0 - 0.1 x10(3)/mcL Immature Gran % 0.70 % Ana Gran Abs 0.07 (H) 0.00 - 0.04 x10(3)/mcL Basic Metabolic Panel (non-fasting) Result Value Ref Range Glucose Lvl 130 65 - 199 mg/dL BUN 22 (H) 10 - 20 mg/dL Creatinine 0.69 (L) 0.80 - 1.50 mg/dL Sodium 135 135 - 145 mmol/L Potassium 3.0 (CRIT) 3.5 - 5.0 mmol/L Chloride 101 98 - 107 mmol/L CO2 24 22 - 31 mmol/L Anion Gap 10 5 - 15 mmol/L Calcium 7.2 (L) 8.5 - 10.5 mg/dL eGFR 98 >=60 mL/min/1.73 m?? eGFR 114 >=60 mL/min/1.73 m?? Magnesium Result Value Ref Range Magnesium 0.90 0.69 - 1.07 mmol/L Phosphorus Result Value Ref Range Phosphorus 3.3 2.5 - 4.5 mg/dL Imaging: Images and reports personally reviewed in eDH XR Fluoro No Rad <1Hr - OR Use Final Result CT Angiogram Aortic Lower Extremity Runoff (Results Pending) ASSESSMENT & PLAN: 69 y/o male with hx of bladder cancer s/p recent chemotherapy who was admitted on 02/14 for 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 GI consulted for multiple days of diarrhea and odynophagia with associated poor oral intake. Diarrhea is likely infectious in etiology as campylobacter antigen and cryptosporidium screen were positive. Oydnophagia is suspected to be GERD related based on history of reflux and discomfort with swallowing both liquids and solids with no dysphagia or obstruction and no oral candiasis observed. # Diarrhea - Positive for campylobacter and Cryptosporidium antigen. Recommend starting azithromycin 500 mg for 7 days (with recent chemotherapy a longer trial than the usual 3 days is is encouraged) and reassess following full course. Request put in to pharmacy for nitazoxanide and paromomycin for cryptosporidium and should be started today for a 14 day course. Formal ID consult needed for antibiotic approval. - f/u on O + P and stool culture. - Hold antidiarrheals due to infectious etiology. - Monitor for FMS related ulcers. ?? # Odynophagia likely 2/2 reflux - IV protonix BID for GERD. OK for TUMS/Maalox PRN as well. Plan of care discussed with Gastroenterology Attending. Arthur Ding PGY-1, Internal Medicine I have seen and evaluated the patient with Dr Ding. I have reviewed the resident/fellow's history during the encounter and I agree with the details as written above. My physical examination confirms the above findings. The assessment and plan were formulated in discussion with me at the time of the encounter and I agree with them as documented. * La Jean-Baptiste MD - 02/21/2020 6:10 AM EDT Urology Inpatient Progress Note Patient Name: Wally Aguilar Patient Age: 69 y.o. Birthdate: 1950 Admit date: 02/13/2020 Attending Physician: Nima Armstrong MD ID: Wally Aguilar is a 69 y.o. male LOS: 8 days 8 Days Post-Op from a cystoprostatectomy with ileal conduit for MIBC. 24hr events: ?? No overnight events ?? Minimal oral intake ?? Continued diarrhea, crypto & campylobacter + ?? No complaints this AM. ?? Ambulated short distance x2 yesterday ?? Pain not well controlled. ?? No cp/sob. O: Last value Range last 24hrs Temperature Temp: 37 ??C (98.6 ??F) Temp: [36.7 ??C (98.1 ??F)-37.3 ??C (99.1 ??F)] Heart Rate Heart Rate: 85 Heart Rate: [85] Blood Pressure BP: 111/68 BP: (111-134)/(63-74) Respiratory Rate Resp: 16 Resp: [16-20] SpO2 SpO2: 95 % SpO2: [94 %-95 %] 02/19 0701 - 02/20 0700 In: 2619 [P.O.:180; I.V.:368] Out: 2190 [Urine:800] DARYN drain: 590cc serous Physical Exam: General: NAD, resting in bed,withdrawn/flat affect HEENT: normocephalic, anicteric sclerae CVS: regular rate Pulm: normal respirations, no use of accessory muscles, no stridor/audible wheezing Abd: soft, appropriately tender, non-distended. No guarding. Midline incision is c/d/i. DARYN drain with serous output. Flexi-seal in place : Urostomy PPV with moderate mucus draining dark yellow urine. Scrotal erythema on posterior aspect. Skin: warm, dry Ext: well perfused, no edema, RLE no palpable pulses. Neuro: Grossly intact, nonfocal Labs: Recent Results (from the past 72 hour(s)) Hemogram Result Value Ref Range WBC 7.6 4.0 - 9.5 x10(3)/mcL RBC 3.05 (L) 4.58 - 5.54 x10(6)/mcL Hemoglobin 9.6 (L) 13.7 - 16.5 gm/dL Hematocrit 28.9 (L) 40.5 - 48.5 % MCV 94.8 (H) 82.9 - 93.1 fL MCH 31.5 27.5 - 32.1 pg MCHC 33.2 32.0 - 35.7 gm/dL Platelets 78 (L) 145 - 357 x10(3)/mcL RDWSD 57.1 (H) 36.0 - 45.0 fL RDWCV 16.3 (H) 11.4 - 13.8 % MPV 11.1 7.6 - 12.9 fL nRBC % Auto 0.0 % nRBC Abs Auto 0.000 0.000 - 0.000 x10(3)/mcL Differential, Automated Result Value Ref Range Neutrophils % 68.1 % Neutr Abs (ANC) 5.21 1.70 - 6.10 x10(3)/mcL Lymphocytes % 14.8 % Lymphocytes Abs 1.1 0.9 - 3.2 x10(3)/mcL Monocytes % 13.3 % Monocyte Abs 1.0 (H) 0.3 - 0.9 x10(3)/mcL Eosinophils % 2.9 % Eosinophils Abs 0.2 0.0 - 0.4 x10(3)/mcL Basophils % 0.4 % Basophils Abs 0.0 0.0 - 0.1 x10(3)/mcL Immature Gran % 0.50 % Ana Gran Abs 0.04 0.00 - 0.04 x10(3)/mcL Basic Metabolic Panel (non-fasting) Result Value Ref Range Glucose Lvl 113 65 - 199 mg/dL BUN 10 10 - 20 mg/dL Creatinine 0.82 0.80 - 1.50 mg/dL Sodium 139 135 - 145 mmol/L Potassium 3.6 3.5 - 5.0 mmol/L Chloride 109 (H) 98 - 107 mmol/L CO2 23 22 - 31 mmol/L Anion Gap 7 5 - 15 mmol/L Calcium 7.4 (L) 8.5 - 10.5 mg/dL eGFR 92 >=60 mL/min/1.73 m?? eGFR 106 >=60 mL/min/1.73 m?? Creatinine Level Body Fluid DARYN Drain Result Value Ref Range Creat, BF 0.8 mg/dL Creat, BF Type DARYN Drain [place] [place] Specimen: Stool Result Value Ref Range Giardia Screen Negative Negative Cryptosporidium Oocyst Antigen ([facility] [place]) Specimen: Stool Result Value Ref Range Cryptosporidium Screen Positive (A) Negative Lactate, whole blood, send to lab ([facility] [place] Result Value Ref Range Lactate WB 1.0 0.5 - 2.2 mmol/L Hemogram Result Value Ref Range WBC 10.0 (H) 4.0 - 9.5 x10(3)/mcL RBC 3.07 (L) 4.58 - 5.54 x10(6)/mcL Hemoglobin 9.7 (L) 13.7 - 16.5 gm/dL Hematocrit 28.8 (L) 40.5 - 48.5 % MCV 93.8 (H) 82.9 - 93.1 fL MCH 31.6 27.5 - 32.1 pg MCHC 33.7 32.0 - 35.7 gm/dL Platelets 64 (L) 145 - 357 x10(3)/mcL RDWSD 55.1 (H) 36.0 - 45.0 fL RDWCV 16.3 (H) 11.4 - 13.8 % MPV 12.0 7.6 - 12.9 fL nRBC % Auto 0.0 % nRBC Abs Auto 0.000 0.000 - 0.000 x10(3)/mcL Differential, Automated Result Value Ref Range Neutrophils % 73.6 % Neutr Abs (ANC) 7.33 (H) 1.70 - 6.10 x10(3)/mcL Lymphocytes % 11.0 % Lymphocytes Abs 1.1 0.9 - 3.2 x10(3)/mcL Monocytes % 12.0 % Monocyte Abs 1.2 (H) 0.3 - 0.9 x10(3)/mcL Eosinophils % 2.4 % Eosinophils Abs 0.2 0.0 - 0.4 x10(3)/mcL Basophils % 0.4 % Basophils Abs 0.0 0.0 - 0.1 x10(3)/mcL Immature Gran % 0.60 % Ana Gran Abs 0.06 (H) 0.00 - 0.04 x10(3)/mcL Prepare Platelets, Apheresis Result Value Ref Range Dispensed? Yes Prothrombin Time Result Value Ref Range PT 13.1 (H) 9.4 - 12.5 sec INR 1.1 APTT Result Value Ref Range PTT 28 25 - 37 sec Platelet count Result Value Ref Range Platelets 102 (L) 145 - 357 x10(3)/mcL Plat Immature % 8.9 (H) 0.0 - 7.4 % Stool culture Specimen: Stool NO PRECAUTIONS NEEDED PER GI. Result Value Ref Range Stool Culture Culture in progress Reduced normal enteric sheri isolated Campylobacter Antigen Specimen: Stool NO PRECAUTIONS NEEDED PER GI. Result Value Ref Range Campylobacter Ag Immunoassay Positive for Campylobacter Antigen (A) Shiga Toxin Detection Specimen: Stool NO PRECAUTIONS NEEDED PER GI. Result Value Ref Range Shiga Toxin Assay Test not performed due to no enteric growth. Magnesium Result Value Ref Range Magnesium 0.77 0.69 - 1.07 mmol/L Phosphorus Result Value Ref Range Phosphorus 2.8 2.5 - 4.5 mg/dL Hepatic Function Panel Result Value Ref Range Total Protein 3.8 (L) 6.1 - 8.0 gm/dL Albumin 2.2 (L) 3.2 - 5.2 gm/dL AST 32 0 - 39 unit/L ALT 39 0 - 55 unit/L Alk Phos 100 40 - 130 unit/L Total Bilirubin 0.2 0.2 - 1.3 mg/dL Bili, Direct 0.1 0.0 - 0.3 mg/dL Basic Metabolic Panel (non-fasting) Result Value Ref Range Glucose Lvl 124 65 - 199 mg/dL BUN 15 10 - 20 mg/dL Creatinine 0.81 0.80 - 1.50 mg/dL Sodium 137 135 - 145 mmol/L Potassium 3.2 (L) 3.5 - 5.0 mmol/L Chloride 107 98 - 107 mmol/L CO2 22 22 - 31 mmol/L Anion Gap 8 5 - 15 mmol/L Calcium 7.1 (L) 8.5 - 10.5 mg/dL eGFR 92 >=60 mL/min/1.73 m?? eGFR 107 >=60 mL/min/1.73 m?? Hemogram Result Value Ref Range WBC 9.4 4.0 - 9.5 x10(3)/mcL RBC 2.92 (L) 4.58 - 5.54 x10(6)/mcL Hemoglobin 9.2 (L) 13.7 - 16.5 gm/dL Hematocrit 28.0 (L) 40.5 - 48.5 % MCV 95.9 (H) 82.9 - 93.1 fL MCH 31.5 27.5 - 32.1 pg MCHC 32.9 32.0 - 35.7 gm/dL Platelets 93 (L) 145 - 357 x10(3)/mcL RDWSD 57.1 (H) 36.0 - 45.0 fL RDWCV 16.2 (H) 11.4 - 13.8 % MPV 11.8 7.6 - 12.9 fL nRBC % Auto 0.0 % nRBC Abs Auto 0.000 0.000 - 0.000 x10(3)/mcL Differential, Automated Result Value Ref Range Neutrophils % 72.4 % Neutr Abs (ANC) 6.80 (H) 1.70 - 6.10 x10(3)/mcL Lymphocytes % 13.2 % Lymphocytes Abs 1.2 0.9 - 3.2 x10(3)/mcL Monocytes % 11.1 % Monocyte Abs 1.0 (H) 0.3 - 0.9 x10(3)/mcL Eosinophils % 2.3 % Eosinophils Abs 0.2 0.0 - 0.4 x10(3)/mcL Basophils % 0.3 % Basophils Abs 0.0 0.0 - 0.1 x10(3)/mcL Immature Gran % 0.70 % Ana Gran Abs 0.07 (H) 0.00 - 0.04 x10(3)/mcL Basic Metabolic Panel (non-fasting) Result Value Ref Range Glucose Lvl 130 65 - 199 mg/dL BUN 22 (H) 10 - 20 mg/dL Creatinine 0.69 (L) 0.80 - 1.50 mg/dL Sodium 135 135 - 145 mmol/L Potassium 3.0 (CRIT) 3.5 - 5.0 mmol/L Chloride 101 98 - 107 mmol/L CO2 24 22 - 31 mmol/L Anion Gap 10 5 - 15 mmol/L Calcium 7.2 (L) 8.5 - 10.5 mg/dL eGFR 98 >=60 mL/min/1.73 m?? eGFR 114 >=60 mL/min/1.73 m?? Magnesium Result Value Ref Range Magnesium 0.90 0.69 - 1.07 mmol/L Phosphorus Result Value Ref Range Phosphorus 3.3 2.5 - 4.5 mg/dL Recent Labs 02/20/20 0204 02/19/20 1430 02/19/20 0800 02/18/20 0805 WBC 9.4 -- 10.0* 7.6 HGB 9.2* -- 9.7* 9.6* HCT 28.0* -- 28.8* 28.9* PLATELET 93* 102* 64* 78* PT -- 13.1* -- -- INR -- 1.1 -- -- PTT -- 28 -- -- Recent Labs 02/21/20 0155 02/20/20 0204 02/18/20 0933 NA 135 137 139 K 3.0* 3.2* 3.6 CL 101 107 109* CO2 24 22 23 BUN 22* 15 10 CREATININE 0.69* 0.81 0.82 GLUCOSE 130 124 113 CALCIUM 7.2* 7.1* 7.4* MAGNESIUM 0.90 0.77 -- PHOS 3.3 2.8 -- DARYN creat: 0.8 Imaging: no recent GI Recommendations 02/19/20: - F/U stool O+P. Recommend checking stool culture. - Imodium PRN for diarrhea - PPI BID for heartburn. OK for Tums/Maalox PRN as well. - Monitor for FMS rectal ulcers - If not improving will consider colonoscopy ASSESSMENT: Wally Aguilar is a 69 y.o. male POD8 s/p cystoprostatectomy with ileal conduit for MIBC who's post-op course is complicated by poor PO intake and diarrhea. He has been HDS and afebrile overnight. He continues to have large volume diarrhea, flexi-seal in place. Stool campylobacter antigen found to be positive, will treat for 7days with azithromycin per GI. Stool also found to be positive for cryptosporidium, will touch base with GI and ID regarding treatment for this as abx are non-formulary per yesterdays discussion. TPN started through mediport 2 days ago to help support nutrition as PO intake is minimal. Ordered calorie count to better ascertain his status. Will work to advance mobility with PT/OT. Ordered miconazole tid for erythematous scrotum likely irritated from persistent contact with diarrhea. Will continue continue to monitor. After discussion with ID will plan for 14 day course of azithromycin & nitazoxanide 500mg bid for 14 days (this [place] to [facility]) Goals for today: OOB walk x4 daily Calorie counts BIT re-engage PLAN: Neuro: pain control: tylenol, tramadol, lidoderm patch Card: HDS, Monitor vital signs, [id number] Pulm: albuterol, ambulation, ISC, cough, deep breathing FEN: replete lytes prn, strict I/O's GI: bowel meds prn, Regular diet TPN Adult, zofran, compazine, protonix, tums Renal/: monitor urine output Heme: no active issues ID: Miconazole to scrotum, azithromycin for campylobacter, cryptosporidium +, perioperative ceftriaxone, flagyl completed, no active issues Endo: no active issues Home Meds: atorvastatin, metoprolol, chantix PPx: lovenox, SCDs, ambulation, ISC, cough, deep breathing Dispo: Stable, Attempt Cardiopulmonary Resuscitation - Inpatient La Jean-Baptiste MD 02/21/2020 Pgr. [phone] * Donte Sheffield RD - 02/20/2020 12:46 PM EDT Nutrition Progress Note Patient admitted with bladder CA s/p radical cystoprostatectomy + Ileal Conduit (02/13/20), relevant medical history includes asthma, hypertension, hyperlipidemia, smoker (2 ppd for 50 years). Wally Aguilar is a 69 y.o. male Reason for intervention: Follow up Nutrition Recommendations: Continue TPN Monitor weight Ensure BID Active Orders Diet Regular diet Frequency: Effective Now Number of Occurrences: Until Specified Nourishments Adult diet Oral Supplements Boost Breeze (clear liquid) Frequency: 4 Times Daily Number of Occurrences: Until Specified Lab Results Component Value Date NA 137 02/20/2020 K 3.2 (L) 02/20/2020 CL 107 02/20/2020 CO2 22 02/20/2020 BUN 15 02/20/2020 CREATININE 0.81 02/20/2020 GFRAA 107 02/20/2020 ESTGFR 92 02/20/2020 MAGNESIUM 0.77 02/20/2020 CALCIUM 7.1 (L) 02/20/2020 PHOS 2.8 02/20/2020 AST 32 02/20/2020 ALT 39 02/20/2020 ALKPHOS 100 02/20/2020 BILITOT 0.2 02/20/2020 BILIDIR 0.1 02/20/2020 TRIG 126 01/25/2020 CRP 1.2 01/25/2020 IRON 81 01/25/2020 No results found for: POCGLU Skin Status: Shift Pressure Injury Prevention Occiput: No Injury Thoracic Spine: No Injury Sacral: No Injury Ischial - left: No Injury Ischial - right: No Injury Heel - left: No Injury Heel - right: No Injury Elbow - left: No Injury Elbow - right: No Injury Device Sites: O2 sat monitor, IV sites, SCD's/venodynes, Flexiseal Other Sites: DARYN, urostomy Relevant medications: reviewed Last Bowel Movement: 02/20/20 Admit Weight: 54.8 kg Estimated body mass index is 19.08 kg/m?? as calculated from the following: Height as of this encounter: 167.6 cm (5' 6). Weight as of this encounter: 53.6 kg (118 lb 3.2 oz). [place] Body Weight: 142 lbs / 64.4 kg Usual Body Weight: 140 lbs per patient report, unable to give timeframe Wt Readings from Last 10 Encounters: 02/19/20 53.6 kg (118 lb 3.2 oz) 02/15/20 54.4 kg (120 lb) 01/25/20 54.8 kg (120 lb 12.8 oz) 01/15/20 56.2 kg (124 lb) 12/26/19 56.7 kg (125 lb) 12/19/19 58.5 kg (129 lb) 12/05/19 58.6 kg (129 lb 3.2 oz) 11/14/19 57.6 kg (127 lb) 11/07/19 57.6 kg (127 lb) 10/24/19 57.4 kg (126 lb 9.6 oz) Above weight history suggests 6.5% weight loss in ~2 months classified as severe weight loss Assessment: Estimated needs: Calories: 1650 (~30 kcal/kg admit WT); 1700 (MSJ x1.3) Protein: 82 grams (1.5 g/kg) Nutrition Focused Physical Exam (NFPE): Performed on 02/17/20. Subcutaneous fat loss at Orbital region: Mild Upper arm region (triceps/biceps): Moderate Thoracic and lumbar region (ribs, lower back and maxillary line): Not assessed Lean muscle loss to Yazdanism region (temporalis muscle): None present Clavicle bone region (pectoralis major): Moderate Dorsal hand (interosseous muscle): None present Shoulder (deltoid): Moderate Scapular bone region (latissimus dorsi, trapezius muscles): Not assessed Thigh region (quadriceps muscle): Moderate Posterior calf region (gastrocnemius muscle): Moderate Fluid accumulation: Not assessed Nutrition intake and intake history/Interview: ensure at bedside. Ensure and IC also 07/15 consumed. Pt declined enjoying ensure. Pt declined other supplements. Calorie count: 02/18:130kcals 5.5g protein 02/17:201kcals 11g protein Protein-calorie Malnutrition: >5% weight loss in 1 month and Moderate lean muscle loss is consistent with severe protein-calorie malnutrition in the setting of acute illness or injury (Brandy hartman al, JPEN J Parenteral Enteral Nutr. 2011; 36(3): 273-83) Nutrition to continue to follow up while inpatient Donte Sheffield RD Pager #:[phone] * Zaira Rondon RD - 02/20/2020 10:23 AM EDT Nutrition Progress Note Patient s/p from a cystoprostatectomy with ileal conduit for MIBC Wally Aguilar is a 69 y.o. male Reason for intervention: TPN Comments: TPN to provide full nutrition of 1460 calores and 115 g protein in 2.4 liters Potassium increased to 80 mEq, phosphorus 44 mmol and magnesium by 30 mEq. I was able to discuss plan with provider [id number]. Nutrition Support: TPN Medication Recent History (Show up to 3 orders; newest on the left. Changes between the two most recent orders are indicated.) Start date and time 02/20/2020 1800 02/19/2020 1800 TPN Adult [[id number]] TPN Adult [[id number]] Order Status Active Active Last Admin New Bag at 02/19/2020 1859 by Elsy Haynes, RN Additives adult multivitamin 10 mL 10 mL adult trace element 0.5 mL 0.5 mL Electrolytes sodium phosphate 44 mmol 36 mmol potassium chloride 80 mEq 10 mEq sodium acetate 130 mEq 130 mEq calcium gluconate 10 mEq 10 mEq magnesium sulfate 30 mEq 24 mEq Dextrose dextrose 70% 147 g 147 g Amino Acids amino acid 15% no.5 (Clinisol) 115 g 115 g QS Base sterile water 1,097.23 mL 1,136.38 mL Lipid fat emulsion 30 % 50 g 50 g Energy Contribution Proteins 460 kcal 460 kcal Dextrose 499.8 kcal 499.8 kcal Lipids 501 kcal 501 kcal Total 1,460.8 kcal 1,460.8 kcal Electrolyte Ion Calculated Amount Sodium 188.67 mEq 178 mEq Potassium 80 mEq 10 mEq Calcium 10 mEq 10 mEq Magnesium 30 mEq 24 mEq Aluminum -- -- Phosphate 46.51 mmol 38.51 mmol Chloride 80 mEq 10 mEq Acetate 227.37 mEq 227.37 mEq Other Total Amino Acid 115 g 115 g Total Amino Acid/kg 2.15 g/kg 2.15 g/kg Glucose Infusion Rate 1.9 mg/kg/min 1.9 mg/kg/min Osmolarity (Estimated) 1,056.63 984.4 Volume 2,400 mL 2,400 mL Rate 100 mL/hr 100 mL/hr Dosing Weight 53.6 kg 53.6 kg Infusion Site [facility] Results Component Value Date NA 137 02/20/2020 K 3.2 (L) 02/20/2020 CL 107 02/20/2020 CO2 22 02/20/2020 BUN 15 02/20/2020 CREATININE 0.81 02/20/2020 GFRAA 107 02/20/2020 ESTGFR 92 02/20/2020 MAGNESIUM 0.77 02/20/2020 CALCIUM 7.1 (L) 02/20/2020 PHOS 2.8 02/20/2020 AST 32 02/20/2020 ALT 39 02/20/2020 ALKPHOS 100 02/20/2020 BILITOT 0.2 02/20/2020 BILIDIR 0.1 02/20/2020 TRIG 126 01/25/2020 CRP 1.2 01/25/2020 IRON 81 01/25/2020 No results found for: POCGLU Skin Status: Shift Pressure Injury Prevention Occiput: No Injury Thoracic Spine: No Injury Sacral: No Injury Ischial - left: No Injury Ischial - right: No Injury Heel - left: No Injury Heel - right: No Injury Elbow - left: No Injury Elbow - right: No Injury Device Sites: O2 sat monitor, IV sites, SCD's/venodynes, Flexiseal Other Sites: DARYN, Urostomy Relevant medications: Last Bowel Movement: 02/19/20 Intake/Output Summary (Last 24 hours) at 02/20/2020 1023 Last data filed at 02/20/2020 1013 Gross per 24 hour Intake 3126 ml Output 2930 ml Net 196 ml Admit Weight: 54.8 kg Estimated body mass index is 19.08 kg/m?? as calculated from the following: Height as of this encounter: 167.6 cm (5' 6). Weight as of this encounter: 53.6 kg (118 lb 3.2 oz). [place] Body Weight: 63.8 kg Usual Body Weight: 58.5 kg Wt Readings from Last 10 Encounters: 02/19/20 53.6 kg (118 lb 3.2 oz) 02/15/20 54.4 kg (120 lb) 01/25/20 54.8 kg (120 lb 12.8 oz) 01/15/20 56.2 kg (124 lb) 12/26/19 56.7 kg (125 lb) 12/19/19 58.5 kg (129 lb) 12/05/19 58.6 kg (129 lb 3.2 oz) 11/14/19 57.6 kg (127 lb) 11/07/19 57.6 kg (127 lb) 10/24/19 57.4 kg (126 lb 9.6 oz) Assessment: Estimated needs: Calories: 25-30 (9353-2720 kcal/kg) Protein: 2 grams (115g/kg) Nutrition Focused Physical Exam (NFPE): Performed on 02/19/20. Subcutaneous fat loss at Orbital region: Mild Upper arm region (triceps/biceps): Mild Thoracic and lumbar region (ribs, lower back and maxillary line): Mild Lean muscle loss to Yazdanism region (temporalis muscle): Moderate Clavicle bone region (pectoralis major): Moderate Dorsal hand (interosseous muscle): Moderate Shoulder (deltoid): Moderate Scapular bone region (latissimus dorsi, trapezius muscles): Not assessed Thigh region (quadriceps muscle): Mild Posterior calf region (gastrocnemius muscle): Mild Fluid accumulation: None present Nutrition intake and intake history/Interview: No nutrition in more than a week and 11 # weight loss(8% UBW) in last 2 months per eDH flowsheets and patient. Protein-calorie Malnutrition: <75% of estimated energy requirement for >7days, 7.5% weight loss in 3 months and Moderate lean muscle loss is consistent with severe protein-calorie malnutrition in the setting of acute illness or injury (Brandy et al, JPEN J Parenteral Enteral Nutr. 2011; 36(3): 273-83) Nutrition to continue to follow up while inpatient. ZAIRA RONDON RD Pager #:[phone] * Claudio Neal MD - 02/20/2020 7:12 AM EDTSummary: Diarrhea Images from the original note were not included. DIVISION OF GASTROENTEROLOGY & HEPATOLOGY CONSULT PROGRESS NOTE NAME: Wally Aguilar : 1950 69/M hx bladder ca (s/p recent chemo) adm 02/14 for cystoprostatectomy w/ ileal conduit. GI consultedre: diarrhea and odynophagia. The patient was recently diagnosed with urothelial cancer and is s/p cisplastin/gemcitabine chemotherapy. Since last cycle in December patient has described intermittent periods of liquid, non-bloody diarrhea. He was admitted for cystoprostectomy on 02/12 and received ceftrixone and and flagyl on 02/12 and 02/13. He also received alvimopan on 02/12, 02/13 and 02/14 to prevent post-op ileus. Since that time his diarrhea has worsened. He describes 4-5 lquid, brown/dark green episodes of diarrhea per day. He denies melena or hematochezia. He does not have abdominal pain associated with diarrhea. He was C.Diff negative. O + P is pending. He has not been trialed on any antidiarrheals. FMS palced on 02/17 with large voume liquid stool since then. ?? INTERVAL: - Stool Campylobacter Antigen was positive. -- Output from rectal tube has been stable over last few days (~[id number]). - Imodium has not been started for diarrhea at this time. - stool culture pending - shiga toxin assay pending - TPN for poor oral intake - IV protonix BID for GERD related odnynophagia - Vitals stable over night. - Hematology and Chemistries stable - Albumin low at 2.2 - PT was slightly elevated at 13.1 Past Medical History: Diagnosis Date ??? Asthma ??? Cancer kidney ??? Chronic pain right calf paiins him since his hip surgery ??? COPD (chronic obstructive pulmonary disease) pt has asthma but states he does not have copd or emphysema ??? Delayed emergence from anesthesia ??? GERD (gastroesophageal reflux disease) ??? Hypertension ??? Intraoperative complication during his only surgery (hip from a fall off a doroteo) [place] 1990 [place] he woke up during the procedure ??? PAD (peripheral artery disease) ??? Peptic ulcer disease ??? Seizure last seizure was 20 years ago ~ suffered from epilepsy but does not seem to be an issue anymore ??? Status post chemotherapy just had 8 weeks pf treatments 3 weeks ago ??? Transfusion history does not know ??? Urolithiasis ??? Vertigo balance problems only from the left leg being longer than the right leg from his hip surgery Past Surgical History: Procedure Laterality Date ??? AORTO-ILIAC BYPASS GRAFT endarterectomy ??? CT GUIDED BIOPSY LYMPH NODE(CHEST/ABD/PELVIS) 01/31/2020 CT Guided Biopsy Lymph Node (Chest/Abd/Pelvis) 01/31/2020 [facility] RAD CAT SCAN ??? HIP FRACTURE SURGERY Right 1991 ??? INGUINAL HERNIA REPAIR Right ??? IR MEDIPORT PLACEMENT/EXCHANGE 11/27/2019 IR Mediport Placement 11/27/2019 Jason Lujan PA [facility] INTERVENTIONL RAD ??? PRO CYSTECTOMY, ILEAL CONDUIT/SIGMOID BLADDER N/A 02/13/2020 @CYSTECTOMY, COMPLETE, WITH ILEAL CONDUIT (WRVU 36.33) performed by Nima Armstrong MD at [facility] LYNETTE ??? PRO NEEDLE BIOPSY LIVER N/A 02/13/2020 LIVER BIOPSY performed by Nima Armstrong MD at [facility] MAIN OR ??? PRO REMOVE PELVIS LYMPH NODES Bilateral 02/13/2020 @LYMPHADENECTOMY, PELVIC, INCLUDING MULTIPLE NODES-FELA (WRVU 14.06) performed by Nima Armstrong MDat [facility] MAIN OR Social History Socioeconomic History ??? Marital status: Single Spouse name: Not on file ??? Number of children: Not on file ??? Years of education: Not on file ??? Highest education level: Not on file Occupational History ??? Not on file Social Needs ??? Financial resource strain: Not on file ??? Food insecurity Worry: Not on file Inability: Not on file ??? Transportation needs Medical: Not on file Non-medical: Not on file Tobacco Use ??? Smoking status: Current Every Day Smoker Packs/day: 2.00 Years: 50.00 Pack years: 100.00 ??? Smokeless tobacco: Never Used Substance and Sexual Activity ??? Alcohol use: Yes Alcohol/week: 14.0 standard drinks Types: 14 Standard drinks or equivalent per week Comment: 2 ??? Drug use: Not Currently ??? Sexual activity: Not Currently Lifestyle ??? Physical activity Days per week: Not on file Minutes per session: Not on file ??? Stress: Not on file Relationships ??? Social connections Talks on phone: Not on file Gets together: Not on file Attends orthodoxy service: Not on file Active member of club or organization: Not on file Attends meetings of clubs or organizations: Not on file Relationship status: Not on file ??? Intimate partner violence Fear of current or ex partner: Not on file Emotionally abused: Not on file Physically abused: Not on file Forced sexual activity: Not on file Other Topics Concern ??? Not on file Social History Narrative 100 pack year smoker and continues to smoke 1/2-1 ppd. Ongoing moderately heavy alcohol use 2 drinks a night. No drug use. He grew up in [facility] and finished 11th grade. 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 He is and has 3 children, 2 live in [place] and one daughter in the [employer] in [facility]; he has limited contact with them. His brother David age 66 [address] but has significant health challenges as well. He has a [facility] test case developer, Ketty Ricketts who is also his landlord and is instrumental in helping him manage his affairs. No family history on file. MEDICATIONS Scheduled: ??? pantoprazole 40 mg Intravenous BID ??? lidocaine 3 patch Transdermal Q24H And ??? lidocaine 1 patch Transdermal Q24H ??? enoxaparin 40 mg Subcutaneous Q24H CARLOS ??? aspirin 81 mg Oral Daily ??? albuteroL 2 puff Inhalation 4 Times Daily ??? atorvastatin 20 mg Oral Daily ??? metoprolol succinate XL 25 mg Oral Daily ??? sodium chloride 0.9 % (flush) 5 mL Intravenous BID ??? varenicline 0.5 mg Oral BID Followed by ??? [START ON 02/21/2020] varenicline 1 mg Oral BID Drips: ??? TPN Adult 100 mL/hr at 02/19/20 1859 PRN: acetaminophen, phenol 1.4%, calcium carbonate, loperamide, prochlorperazine, sodium chloride 0.9 % (flush), lidocaine, ondansetron OR ondansetron, traMADoL Allergies Allergen Reactions ??? Wellbutrin [Bupropion Hcl] Other (See Comments) Unknown on pt's chart from outside facility OBJECTIVE Vitals: T Temp: [36.5 ??C (97.7 ??F)-37.1 ??C (98.8 ??F)] HR Heart Rate: [73-78] BP BP: (102-119)/(62-65) RR Resp: [16-22] SpO2 SpO2: [95 %-98 %] 02/18 0701 - 02/19 0700 In: 2569 [P.O.:110; I.V.:1181] Out: 2940 [Urine:750] Wt Last 53.6 kg (118 lb 3.2 oz) Admit 54.8 kg Physical Exam: Deferred Today Labs: Recent Results (from the past 72 hour(s)) Hemogram Result Value Ref Range WBC 7.6 4.0 - 9.5 x10(3)/mcL RBC 3.05 (L) 4.58 - 5.54 x10(6)/mcL Hemoglobin 9.6 (L) 13.7 - 16.5 gm/dL Hematocrit 28.9 (L) 40.5 - 48.5 % MCV 94.8 (H) 82.9 - 93.1 fL MCH 31.5 27.5 - 32.1 pg MCHC 33.2 32.0 - 35.7 gm/dL Platelets 78 (L) 145 - 357 x10(3)/mcL RDWSD 57.1 (H) 36.0 - 45.0 fL RDWCV 16.3 (H) 11.4 - 13.8 % MPV 11.1 7.6 - 12.9 fL nRBC % Auto 0.0 % nRBC Abs Auto 0.000 0.000 - 0.000 x10(3)/mcL Differential, Automated Result Value Ref Range Neutrophils % 68.1 % Neutr Abs (ANC) 5.21 1.70 - 6.10 x10(3)/mcL Lymphocytes % 14.8 % Lymphocytes Abs 1.1 0.9 - 3.2 x10(3)/mcL Monocytes % 13.3 % Monocyte Abs 1.0 (H) 0.3 - 0.9 x10(3)/mcL Eosinophils % 2.9 % Eosinophils Abs 0.2 0.0 - 0.4 x10(3)/mcL Basophils % 0.4 % Basophils Abs 0.0 0.0 - 0.1 x10(3)/mcL Immature Gran % 0.50 % Ana Gran Abs 0.04 0.00 - 0.04 x10(3)/mcL Basic Metabolic Panel (non-fasting) Result Value Ref Range Glucose Lvl 113 65 - 199 mg/dL BUN 10 10 - 20 mg/dL Creatinine 0.82 0.80 - 1.50 mg/dL Sodium 139 135 - 145 mmol/L Potassium 3.6 3.5 - 5.0 mmol/L Chloride 109 (H) 98 - 107 mmol/L CO2 23 22 - 31 mmol/L Anion Gap 7 5 - 15 mmol/L Calcium 7.4 (L) 8.5 - 10.5 mg/dL eGFR 92 >=60 mL/min/1.73 m?? eGFR 106 >=60 mL/min/1.73 m?? Creatinine Level Body Fluid DARYN Drain Result Value Ref Range Creat, BF 0.8 mg/dL Creat, BF Type DARYN Drain Lactate, whole blood, send to lab [place] [place] [place] Result Value Ref Range Lactate WB 1.0 0.5 - 2.2 mmol/L Hemogram Result Value Ref Range WBC 10.0 (H) 4.0 - 9.5 x10(3)/mcL RBC 3.07 (L) 4.58 - 5.54 x10(6)/mcL Hemoglobin 9.7 (L) 13.7 - 16.5 gm/dL Hematocrit 28.8 (L) 40.5 - 48.5 % MCV 93.8 (H) 82.9 - 93.1 fL MCH 31.6 27.5 - 32.1 pg MCHC 33.7 32.0 - 35.7 gm/dL Platelets 64 (L) 145 - 357 x10(3)/mcL RDWSD 55.1 (H) 36.0 - 45.0 fL RDWCV 16.3 (H) 11.4 - 13.8 % MPV 12.0 7.6 - 12.9 fL nRBC % Auto 0.0 % nRBC Abs Auto 0.000 0.000 - 0.000 x10(3)/mcL Differential, Automated Result Value Ref Range Neutrophils % 73.6 % Neutr Abs (ANC) 7.33 (H) 1.70 - 6.10 x10(3)/mcL Lymphocytes % 11.0 % Lymphocytes Abs 1.1 0.9 - 3.2 x10(3)/mcL Monocytes % 12.0 % Monocyte Abs 1.2 (H) 0.3 - 0.9 x10(3)/mcL Eosinophils % 2.4 % Eosinophils Abs 0.2 0.0 - 0.4 x10(3)/mcL Basophils % 0.4 % Basophils Abs 0.0 0.0 - 0.1 x10(3)/mcL Immature Gran % 0.60 % Ana Gran Abs 0.06 (H) 0.00 - 0.04 x10(3)/mcL Prepare Platelets, Apheresis Result Value Ref Range Dispensed? Yes Prothrombin Time Result Value Ref Range PT 13.1 (H) 9.4 - 12.5 sec INR 1.1 APTT Result Value Ref Range PTT 28 25 - 37 sec Platelet count Result Value Ref Range Platelets 102 (L) 145 - 357 x10(3)/mcL Plat Immature % 8.9 (H) 0.0 - 7.4 % Stool culture Specimen: Stool NO PRECAUTIONS NEEDED PER GI. Result Value Ref Range Stool Culture Culture in progress Reduced normal enteric sheri isolated Campylobacter Antigen Specimen: Stool NO PRECAUTIONS NEEDED PER GI. Result Value Ref Range Campylobacter Ag Immunoassay Positive for Campylobacter Antigen (A) Magnesium Result Value Ref Range Magnesium 0.77 0.69 - 1.07 mmol/L Phosphorus Result Value Ref Range Phosphorus 2.8 2.5 - 4.5 mg/dL Hepatic Function Panel Result Value Ref Range Total Protein 3.8 (L) 6.1 - 8.0 gm/dL Albumin 2.2 (L) 3.2 - 5.2 gm/dL AST 32 0 - 39 unit/L ALT 39 0 - 55 unit/L Alk Phos 100 40 - 130 unit/L Total Bilirubin 0.2 0.2 - 1.3 mg/dL Bili, Direct 0.1 0.0 - 0.3 mg/dL Basic Metabolic Panel (non-fasting) Result Value Ref Range Glucose Lvl 124 65 - 199 mg/dL BUN 15 10 - 20 mg/dL Creatinine 0.81 0.80 - 1.50 mg/dL Sodium 137 135 - 145 mmol/L Potassium 3.2 (L) 3.5 - 5.0 mmol/L Chloride 107 98 - 107 mmol/L CO2 22 22 - 31 mmol/L Anion Gap 8 5 - 15 mmol/L Calcium 7.1 (L) 8.5 - 10.5 mg/dL eGFR 92 >=60 mL/min/1.73 m?? eGFR 107 >=60 mL/min/1.73 m?? Hemogram Result Value Ref Range WBC 9.4 4.0 - 9.5 x10(3)/mcL RBC 2.92 (L) 4.58 - 5.54 x10(6)/mcL Hemoglobin 9.2 (L) 13.7 - 16.5 gm/dL Hematocrit 28.0 (L) 40.5 - 48.5 % MCV 95.9 (H) 82.9 - 93.1 fL MCH 31.5 27.5 - 32.1 pg MCHC 32.9 32.0 - 35.7 gm/dL Platelets 93 (L) 145 - 357 x10(3)/mcL RDWSD 57.1 (H) 36.0 - 45.0 fL RDWCV 16.2 (H) 11.4 - 13.8 % MPV 11.8 7.6 - 12.9 fL nRBC % Auto 0.0 % nRBC Abs Auto 0.000 0.000 - 0.000 x10(3)/mcL Differential, Automated Result Value Ref Range Neutrophils % 72.4 % Neutr Abs (ANC) 6.80 (H) 1.70 - 6.10 x10(3)/mcL Lymphocytes % 13.2 % Lymphocytes Abs 1.2 0.9 - 3.2 x10(3)/mcL Monocytes % 11.1 % Monocyte Abs 1.0 (H) 0.3 - 0.9 x10(3)/mcL Eosinophils % 2.3 % Eosinophils Abs 0.2 0.0 - 0.4 x10(3)/mcL Basophils % 0.3 % Basophils Abs 0.0 0.0 - 0.1 x10(3)/mcL Immature Gran % 0.70 % Ana Gran Abs 0.07 (H) 0.00 - 0.04 x10(3)/mcL Imaging: Images and reports personally reviewed in e[facility] XR Fluoro No Rad <1Hr - OR Use Final Result CT Angiogram Aortic Lower Extremity Runoff (Results Pending) Endoscopy: Images and reports personally reviewed in [facility] ASSESSMENT & PLAN: 69 y/o male with hx of bladder cancer s/p recent chemotherapy who was admitted on 02/14 for 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 GI consulted for multiple days of diarrhea and odynophagia with associated poor oral intake. Diarrhea is likely infectious in etiology as campylobacter antigen was positive. Oydnophagia is suspected to be GERD related based on history of reflux and discomfort with swallowing both liquids and solids with no dysphagia or obstruction andno oral candiasis observed # Diarrhea - Positive for campylobacter antigen. Recommend starting azithromycin 500 mg for 7 days (with recent chemotherapy a longer trial than the usual 3 days is is encouraged) and reassess following full course. - f/u on O + P, stool culture and shiga toxin assay - Hold antidiarrheals due to infectious etiology. - Monitor for FMS related ulcers. # Odynophagia likely 2/2 reflux - IV protonix BID for GERD. OK for TUMS/Maalox PRN as well. . Arthur Ding PGY-1, Internal Medicine I have seen and evaluated the patient with Dr Ding. I have reviewed the resident/fellow's history during the encounter and I agree with the details as written above. My physical examination confirms the above findings. The assessment and plan were formulated in discussion with me at the time of the encounter and I agree with them as documented. * La Jean-Baptiste MD - 02/20/2020 6:28 AM EDT Urology Inpatient Progress Note Patient Name: Wally Aguilar Patient Age: 69 y.o. Birthdate: 1950 Admit date: 02/13/2020 Attending Physician: Nima Armstrong MD ID: Wally Aguilar is a 69 y.o. male LOS: 7 days 7 Days Post-Op from a cystoprostatectomy with ileal conduit for MIBC. 24hr events: ?? No overnight events ?? Minimal oral intake ?? Continued diarrhea, awaiting O&P results ?? No complaints this AM. ?? Ambulated short distance but felt unsteady ?? Pain not well controlled overnight after epidural removed, required breakthrough dilaudid. Pain is better controlled this AM. ?? No cp/sob. O: Last value Range last 24hrs Temperature Temp: 36.8 ??C (98.2 ??F) Temp: [36.5 ??C (97.7 ??F)-37.1 ??C (98.8 ??F)] Heart Rate Heart Rate: 77 Heart Rate: [73-78] Blood Pressure BP: 118/65 BP: (102-118)/(63-65) Respiratory Rate Resp: 16 Resp: [16-20] SpO2 SpO2: 95 % SpO2: [95 %-98 %] 02/18 0701 - 02/19 0700 In: 2569 [P.O.:110; I.V.:1181] Out: 2940 [Urine:750] DARYN drain: 740cc serous Physical Exam: General: NAD, resting in bed,withdrawn/flat affect HEENT: normocephalic, anicteric sclerae CVS: regular rate Pulm: normal respirations, no use of accessory muscles, no stridor/audible wheezing Abd: soft, appropriately tender, non-distended. No guarding. Midline incision is c/d/i. DARYN drain with serous output. Flexi-seal in place : Urostomy PPV with moderate mucus draining dark yellow urine. Scrotal erythema on posterior aspect. Skin: warm, dry Ext: well perfused, no edema, RLE no palpable pulses. Neuro: Grossly intact, nonfocal Labs: Recent Results (from the past 72 hour(s)) Hemogram Result Value Ref Range WBC 7.6 4.0 - 9.5 x10(3)/mcL RBC 3.05 (L) 4.58 - 5.54 x10(6)/mcL Hemoglobin 9.6 (L) 13.7 - 16.5 gm/dL Hematocrit 28.9 (L) 40.5 - 48.5 % MCV 94.8 (H) 82.9 - 93.1 fL MCH 31.5 27.5 - 32.1 pg MCHC 33.2 32.0 - 35.7 gm/dL Platelets 78 (L) 145 - 357 x10(3)/mcL RDWSD 57.1 (H) 36.0 - 45.0 fL RDWCV 16.3 (H) 11.4 - 13.8 % MPV 11.1 7.6 - 12.9 fL nRBC % Auto 0.0 % nRBC Abs Auto 0.000 0.000 - 0.000 x10(3)/mcL Differential, Automated Result Value Ref Range Neutrophils % 68.1 % Neutr Abs (ANC) 5.21 1.70 - 6.10 x10(3)/mcL Lymphocytes % 14.8 % Lymphocytes Abs 1.1 0.9 - 3.2 x10(3)/mcL Monocytes % 13.3 % Monocyte Abs 1.0 (H) 0.3 - 0.9 x10(3)/mcL Eosinophils % 2.9 % Eosinophils Abs 0.2 0.0 - 0.4 x10(3)/mcL Basophils % 0.4 % Basophils Abs 0.0 0.0 - 0.1 x10(3)/mcL Immature Gran % 0.50 % Ana Gran Abs 0.04 0.00 - 0.04 x10(3)/mcL Basic Metabolic Panel (non-fasting) Result Value Ref Range Glucose Lvl 113 65 - 199 mg/dL BUN 10 10 - 20 mg/dL Creatinine 0.82 0.80 - 1.50 mg/dL Sodium 139 135 - 145 mmol/L Potassium 3.6 3.5 - 5.0 mmol/L Chloride 109 (H) 98 - 107 mmol/L CO2 23 22 - 31 mmol/L Anion Gap 7 5 - 15 mmol/L Calcium 7.4 (L) 8.5 - 10.5 mg/dL eGFR 92 >=60 mL/min/1.73 m?? eGFR 106 >=60 mL/min/1.73 m?? Creatinine Level Body Fluid DARYN Drain Result Value Ref Range Creat, BF 0.8 mg/dL Creat, BF Type DARYN Drain Lactate, whole blood, send to lab ([facility] [place] [place] Result Value Ref Range Lactate WB 1.0 0.5 - 2.2 mmol/L Hemogram Result Value Ref Range WBC 10.0 (H) 4.0 - 9.5 x10(3)/mcL RBC 3.07 (L) 4.58 - 5.54 x10(6)/mcL Hemoglobin 9.7 (L) 13.7 - 16.5 gm/dL Hematocrit 28.8 (L) 40.5 - 48.5 % MCV 93.8 (H) 82.9 - 93.1 fL MCH 31.6 27.5 - 32.1 pg MCHC 33.7 32.0 - 35.7 gm/dL Platelets 64 (L) 145 - 357 x10(3)/mcL RDWSD 55.1 (H) 36.0 - 45.0 fL RDWCV 16.3 (H) 11.4 - 13.8 % MPV 12.0 7.6 - 12.9 fL nRBC % Auto 0.0 % nRBC Abs Auto 0.000 0.000 - 0.000 x10(3)/mcL Differential, Automated Result Value Ref Range Neutrophils % 73.6 % Neutr Abs (ANC) 7.33 (H) 1.70 - 6.10 x10(3)/mcL Lymphocytes % 11.0 % Lymphocytes Abs 1.1 0.9 - 3.2 x10(3)/mcL Monocytes % 12.0 % Monocyte Abs 1.2 (H) 0.3 - 0.9 x10(3)/mcL Eosinophils % 2.4 % Eosinophils Abs 0.2 0.0 - 0.4 x10(3)/mcL Basophils % 0.4 % Basophils Abs 0.0 0.0 - 0.1 x10(3)/mcL Immature Gran % 0.60 % Ana Gran Abs 0.06 (H) 0.00 - 0.04 x10(3)/mcL Prepare Platelets, Apheresis Result Value Ref Range Dispensed? Yes Prothrombin Time Result Value Ref Range PT 13.1 (H) 9.4 - 12.5 sec INR 1.1 APTT Result Value Ref Range PTT 28 25 - 37 sec Platelet count Result Value Ref Range Platelets 102 (L) 145 - 357 x10(3)/mcL Plat Immature % 8.9 (H) 0.0 - 7.4 % Magnesium Result Value Ref Range Magnesium 0.77 0.69 - 1.07 mmol/L Phosphorus Result Value Ref Range Phosphorus 2.8 2.5 - 4.5 mg/dL Hepatic Function Panel Result Value Ref Range Total Protein 3.8 (L) 6.1 - 8.0 gm/dL Albumin 2.2 (L) 3.2 - 5.2 gm/dL AST 32 0 - 39 unit/L ALT 39 0 - 55 unit/L Alk Phos 100 40 - 130 unit/L Total Bilirubin 0.2 0.2 - 1.3 mg/dL Bili, Direct 0.1 0.0 - 0.3 mg/dL Basic Metabolic Panel (non-fasting) Result Value Ref Range Glucose Lvl 124 65 - 199 mg/dL BUN 15 10 - 20 mg/dL Creatinine 0.81 0.80 - 1.50 mg/dL Sodium 137 135 - 145 mmol/L Potassium 3.2 (L) 3.5 - 5.0 mmol/L Chloride 107 98 - 107 mmol/L CO2 22 22 - 31 mmol/L Anion Gap 8 5 - 15 mmol/L Calcium 7.1 (L) 8.5 - 10.5 mg/dL eGFR 92 >=60 mL/min/1.73 m?? eGFR 107 >=60 mL/min/1.73 m?? Hemogram Result Value Ref Range WBC 9.4 4.0 - 9.5 x10(3)/mcL RBC 2.92 (L) 4.58 - 5.54 x10(6)/mcL Hemoglobin 9.2 (L) 13.7 - 16.5 gm/dL Hematocrit 28.0 (L) 40.5 - 48.5 % MCV 95.9 (H) 82.9 - 93.1 fL MCH 31.5 27.5 - 32.1 pg MCHC 32.9 32.0 - 35.7 gm/dL Platelets 93 (L) 145 - 357 x10(3)/mcL RDWSD 57.1 (H) 36.0 - 45.0 fL RDWCV 16.2 (H) 11.4 - 13.8 % MPV 11.8 7.6 - 12.9 fL nRBC % Auto 0.0 % nRBC Abs Auto 0.000 0.000 - 0.000 x10(3)/mcL Differential, Automated Result Value Ref Range Neutrophils % 72.4 % Neutr Abs (ANC) 6.80 (H) 1.70 - 6.10 x10(3)/mcL Lymphocytes % 13.2 % Lymphocytes Abs 1.2 0.9 - 3.2 x10(3)/mcL Monocytes % 11.1 % Monocyte Abs 1.0 (H) 0.3 - 0.9 x10(3)/mcL Eosinophils % 2.3 % Eosinophils Abs 0.2 0.0 - 0.4 x10(3)/mcL Basophils % 0.3 % Basophils Abs 0.0 0.0 - 0.1 x10(3)/mcL Immature Gran % 0.70 % Ana Gran Abs 0.07 (H) 0.00 - 0.04 x10(3)/mcL Recent Labs 02/20/20 0204 02/19/20 1430 02/19/20 0800 02/18/20 0805 WBC 9.4 -- 10.0* 7.6 HGB 9.2* -- 9.7* 9.6* HCT 28.0* -- 28.8* 28.9* PLATELET 93* 102* 64* 78* PT -- 13.1* -- -- INR -- 1.1 -- -- PTT -- 28 -- -- Recent Labs 02/20/20 0204 02/18/20 0933 NA 137 139 K 3.2* 3.6 CL 107 109* CO2 22 23 BUN 15 10 CREATININE 0.81 0.82 GLUCOSE 124 113 CALCIUM 7.1* 7.4* MAGNESIUM 0.77 -- PHOS 2.8 -- DARYN creat: 0.8 Imaging: no recent GI Recommendations 02/19/20: - F/U stool O+P. Recommend checking stool culture. - Imodium PRN for diarrhea - PPI BID for heartburn. OK for Tums/Maalox PRN as well. - Monitor for FMS rectal ulcers - If not improving will consider colonoscopy ASSESSMENT: Wally Aguilar is a 69 y.o. male POD7 s/p cystoprostatectomy with ileal conduit for MIBC who's post-op course is complicated by poor PO intake and diarrhea. He has been HDS and afebrile overnight. He continues to have large volume diarrhea, flexi-seal in place. Stool campylobacter antigen found to be positive, will treat for 7days with azithromycin per GI. Will follow up remaining O&P and stool culture results. TPN started through [facility] yesterday to help support nutrition as PO intake is minimal. His Epidural was removed yesterday and we was started on Lovenox. Once epidural is removed will start lovenox 40mg qHS and request nursing staff teach patient how to perform lovenox injection. Will work to advance mobility with PT/OT. Ordered miconazole tid for erythematous scrotum likely irritated from persistent contact with diarrhea. Will continue continue to monitor. Goals for today: OOB walk x4 daily PLAN: Neuro: pain control: tylenol, tramadol, lidoderm patch Card: HDS, Monitor vital signs, [id number] Pulm: albuterol, ambulation, ISC, cough, deep breathing FEN: replete lytes prn, strict I/O's GI: bowel meds prn, Regular diet TPN Adult, zofran, compazine, protonix, tums Renal/: monitor urine output Heme: no active issues ID: Miconazole to scrotum, azithromycin for campylobacter,perioperative ceftriaxone, flagyl completed, no active issues Endo: no active issues Home Meds: atorvastatin, metoprolol, chantix PPx: lovenox, SCDs, ambulation, ISC, cough, deep breathing Dispo: Stable, Attempt Cardiopulmonary Resuscitation - Inpatient La Jean-Baptiste MD 02/20/2020 Pgr. [phone] * Brisa Villalta RN - 02/19/2020 3:20 PM EDT Acute Pain Service Epidural Removal 1515 Pain now controlled Pt is taking oral analgesics acceptable pain control at this time. Coagulation status is acceptable. Epidural removed. Tip intact. Patient awake and alert. Deep breathing and coughing well. Epidural insertion site clean and without drainage, pain or erythema. Brisa Villalta RN Acute Pain Service Beeper [phone] * Lizbeth Abdi RN - 02/19/2020 1:46 PM EDT OFFICE OF CARE MANAGEMENT Machine Shop Repair Technician Follow-up Note Lizbeth Abdi RN reviewed record and discussed patient with Care Team. Patient plan of care discussed in multidisciplinary rounds and assessment for continuing care and discharge needs. Diagnosis: Bladder Cancer LOS Hospital: 6 days INSURANCE: Payor: MEDICARE / Plan: MEDICARE PART A & B / Product Type: *No Product type* / SECONDARY INSURANCE: MEDICAID [place] DECISION MAKER: Attempt Cardiopulmonary Resuscitation - Inpatient <no information> Patient continues to require hospitalization. Per team, patient requires inpatient status r/t diarrhea, cdiff -. Stool culture pending, TPN started, weaning epidural, poor intake requiring a swallow study. Pending PT eval may need rehab. TBD. Discharge date planned for 02/23/2020 ifmedically ready. Current Referral in place: [facility] routed and orders pended. Transportation: Tray Ketty will drive patient home via private vehicle when medically ready. Support: Tray Ketty Machine Shop Repair Technician to follow with team and family to assist with discharge needs when patient ready for discharge. Lizbeth Abdi RN Case Management pgr [phone] * Zaira Rondon RD - 02/19/2020 1:17 PM EDT Nutrition Progress Note Patient s/p from a cystoprostatectomy with ileal conduit for MIBC Wally Aguilar is a 69 y.o. male Reason for intervention: TPN Comments: TPN to provide full nutrition of 1460 calores and 115 g protein in 2.4 liters I was able to discuss plan with provider [phone]. Nutrition Support: TPN Medication Recent History (Show up to 3 orders; newest on the left.) Start date and time 02/19/2020 1800 TPN Adult [[id number]] Order Status Active Additives adult multivitamin 10 mL adult trace element 0.5 mL Electrolytes sodium phosphate 36 mmol potassium chloride 10 mEq sodium acetate 130 mEq calcium gluconate 10 mEq magnesium sulfate 24 mEq Dextrose dextrose 70% 147 g Amino Acids amino acid 15% no.5 (Clinisol) 115 g QS Base sterile water 1,136.38 mL Lipid fat emulsion 30 % 50 g Energy Contribution Proteins 460 kcal Dextrose 499.8 kcal Lipids 501 kcal Total 1,460.8 kcal Electrolyte Ion Calculated Amount Sodium 178 mEq Potassium 10 mEq Calcium 10 mEq Magnesium 24 mEq Aluminum -- Phosphate 38.51 mmol Chloride 10 mEq Acetate 227.37 mEq Other Total Amino Acid 115 g Total Amino Acid/kg 2.15 g/kg Glucose Infusion Rate 1.9 mg/kg/min Osmolarity (Estimated) 984.4 Volume 2,400 mL Rate 100 mL/hr Dosing Weight 53.6 kg Infusion Site [facility] Results Component Value Date NA 139 02/18/2020 K 3.6 02/18/2020 CL 109 (H) 02/18/2020 CO2 23 02/18/2020 BUN 10 02/18/2020 CREATININE 0.82 02/18/2020 GFRAA 106 02/18/2020 ESTGFR 92 02/18/2020 MAGNESIUM 0.79 02/13/2020 CALCIUM 7.4 (L) 02/18/2020 PHOS 3.2 02/13/2020 AST 8 01/15/2020 ALT 8 01/15/2020 ALKPHOS 164 (H) 01/15/2020 BILITOT 0.2 01/15/2020 TRIG 126 01/25/2020 CRP 1.2 01/25/2020 IRON 81 01/25/2020 No results found for: POCGLU Skin Status: Shift Pressure Injury Prevention Occiput: No Injury Thoracic Spine: No Injury Sacral: No Injury Ischial - left: No Injury Ischial - right: No Injury Heel - left: No Injury Heel - right: No Injury Elbow - left: No Injury Elbow - right: No Injury Device Sites: O2 sat monitor, SCD's/venodynes, IV sites, Flexiseal Other Sites: DARYN, Urostomy Relevant medications: Last Bowel Movement: 02/19/20 Intake/Output Summary (Last 24 hours) at 02/19/2020 1318 Last data filed at 02/19/2020 1230 Gross per 24 hour Intake 3178.4 ml Output 2540 ml Net 638.4 ml Admit Weight: 54.8 kg Estimated body mass index is 19.08 kg/m?? as calculated from the following: Height as of this encounter: 167.6 cm (5' 6). Weight as of this encounter: 53.6 kg (118 lb 3.2 oz). [place] Body Weight: 63.8 kg Usual Body Weight: 58.5 kg Wt Readings from Last 10 Encounters: 02/19/20 53.6 kg (118 lb 3.2 oz) 02/15/20 54.4 kg (120 lb) 01/25/20 54.8 kg (120 lb 12.8 oz) 01/15/20 56.2 kg (124 lb) 12/26/19 56.7 kg (125 lb) 12/19/19 58.5 kg (129 lb) 12/05/19 58.6 kg (129 lb 3.2 oz) 11/14/19 57.6 kg (127 lb) 11/07/19 57.6 kg (127 lb) 10/24/19 57.4 kg (126 lb 9.6 oz) Assessment: Estimated needs: Calories: 25-30 (8269-2880 kcal/kg) Protein: 2 grams (115g/kg) Nutrition Focused Physical Exam (NFPE): Performed on 02/19/20. Subcutaneous fat loss at Orbital region: Mild Upper arm region (triceps/biceps): Mild Thoracic and lumbar region (ribs, lower back and maxillary line): Mild Lean muscle loss to Yazdanism region (temporalis muscle): Moderate Clavicle bone region (pectoralis major): Moderate Dorsal hand (interosseous muscle): Moderate Shoulder (deltoid): Moderate Scapular bone region (latissimus dorsi, trapezius muscles): Not assessed Thigh region (quadriceps muscle): Mild Posterior calf region (gastrocnemius muscle): Mild Fluid accumulation: None present Nutrition intake and intake history/Interview: No nutrition in more than a week and 11 # weight loss(8% UBW) in last 2 months per e[facility] flowsheets and patient. Protein-calorie Malnutrition: <75% of estimated energy requirement for >7days, 7.5% weight loss in 3 months and Moderate lean muscle loss is consistent with severe protein-calorie malnutrition in the setting of acute illness or injury (Bibiana, CORNELL J Parenteral Enteral Nutr. 2011; 36(3): 273-83) Nutrition to continue to follow up while inpatient. ZAIRA RONDON RD Pager #:[phone] * Dariela Fitch MD - 02/19/2020 12:27 PM EDT Acute Pain Service - Epidural Daily Management VITAL SIGNS: Visit Vitals BP 105/64 (BP Location (NBP): Left arm, Patient Position: Lying) Pulse 73 Temp 36.7 ??C (98.1 ??F) (Oral) Resp 16 Ht 167.6 cm (5' 6) Wt 53.6 kg (118 lb 3.2 oz) SpO2 97% BMI 19.08 kg/m?? Body mass index is 19.08 kg/m??. Labs: WBC Date Value Ref Range Status 02/19/2020 10.0 (H) 4.0 - 9.5 x10(3)/mcL Final Hemoglobin Date Value Ref Range Status 02/19/2020 9.7 (L) 13.7 - 16.5 gm/dL Final Hematocrit Date Value Ref Range Status 02/19/2020 28.8 (L) 40.5 - 48.5 % Final Platelets Date Value Ref Range Status 02/19/2020 64 (L) 145 - 357 x10(3)/mcL Final Operative Procedures: Procedure(s): @CYSTECTOMY, COMPLETE, WITH ILEAL CONDUIT (WRVU 36.33) @LYMPHADENECTOMY, PELVIC, INCLUDING MULTIPLE NODES-FELA (WRVU 14.06) LIVER BIOPSY APS Opioid Administration Hx All administrations since 02/18/2020 are shown below each listed medication. Other Order Route Rate Dose Action Date HYDROmorphone (Dilaudid) 10 mcg/mL, BUpivacaine (Marcaine) 0.1% (0.1 mg/mL) (1/10%) in sodium chloride 0.9% 250 mL epidural Epidural 0.1 mL/hr 0.1 mL/hr Rate/Dose Change 02/19/2020 Epidural 0.1 mL/hr 0.1 mL/hr New Bag 02/19/2020 Epidural 4 mL/hr 4 mL/hr Rate/Dose Change 02/19/2020 Epidural 6 mL/hr 6 mL/hr New Bag 02/18/2020 DH AN APS EPIDURAL ROUNDIN02/19/2020 10:00 AM Average Numeric Rating Pain Score (0-10):: 1 Post-Op Day:: 6 Epidural Day:: 7 Epidural Infusion (solution):: HYDROmorphone 10 mcg/mL and BUpivacaine 0.1% Epidural Infusion Rate (mL/hr): 0 PCEA Dose (mL): 3 Out of Bed: Yes Ambulation: Yes Able to Use Incentive Spirometry: No Escalation of Care: No Tolerating Regular Diet: No Epidural Catheter Removed (Intact unless noted in Comments): No Notes/Plan: Mr. Aguilar continues to have excellent pain control with epidural infusion only, and has not required use of PCEA function. Pt continues to decline PO analgesics. Pt was able to ambulate a short distance yesterday, though PO intake remains poor. Pt continues to express significant reflux symptoms, with plan to double IV Protonix today, per Urology team. Due to poor PO intake, added IV acetaminophen for 24 hours while epidural wean initiated. Added three Lidoderm patches as well. Pt tolerated wean of the continuous rate, and is aware that PCEA function continues to be available this morning. Pt received heparin this AM at ~0600, plt count 64 K. Unit of plts ordered to be administered, and will send coagulation studies and a repeat plt count. Willthen plan to discontinue epidural catheter as able. Attending Physician:: Dariela Fitch MD * La Jean-Baptiste MD - 02/19/2020 7:22 AM EDT Urology Inpatient Progress Note Patient Name: Wally Aguilar Patient Age: 69 y.o. Birthdate: 1950 Admit date: 02/13/2020 Attending Physician: Nima Armstrong MD ID: Wally Aguilar is a 69 y.o. male LOS: 6 days 6 Days Post-Op from a cystoprostatectomy with ileal conduit for MIBC. 24hr events: ?? No overnight events ?? Minimal oral intake ?? Continued diarrhea, awaiting O&P results ?? No complaints this AM. ?? Ambulated short distance but felt unsteady ?? Pain is well controlled. ?? No cp/sob. O: Last value Range last 24hrs Temperature Temp: 36.7 ??C (98.1 ??F) Temp: [36.3 ??C (97.3 ??F)-36.8 ??C (98.2 ??F)] Heart Rate Heart Rate: 84 Heart Rate: -- Blood Pressure BP: 103/63 BP: (101-108)/(63-65) Respiratory Rate Resp: 16 Resp: [16-18] SpO2 SpO2: 96 % SpO2: [93 %-97 %] 02/17 0701 - 02/18 0700 In: 5925.4 [P.O.:250; I.V.:5528] Out: 2510 [Urine:450] DARYN drain: 270cc s/s Physical Exam: General: NAD, resting in bed,withdrawn/flat affect HEENT: normocephalic, anicteric sclerae CVS: regular rate Pulm: normal respirations, no use of accessory muscles, no stridor/audible wheezing Abd: soft, appropriately tender, non-distended. No guarding. Midline incision is c/d/i. DARYN drain with serosanguinous output. : Urostomy PPV with moderate mucus draining dark yellow urine Skin: warm, dry Ext: well perfused, no edema, RLE no palpable pulses. Neuro: Grossly intact, nonfocal Labs: Recent Results (from the past 72 hour(s)) Basic Metabolic Panel (non-fasting) Result Value Ref Range Glucose Lvl 153 65 - 199 mg/dL BUN 13 10 - 20 mg/dL Creatinine 0.90 0.80 - 1.50 mg/dL Sodium 138 135 - 145 mmol/L Potassium 3.5 3.5 - 5.0 mmol/L Chloride 106 98 - 107 mmol/L CO2 22 22 - 31 mmol/L Anion Gap 10 5 - 15 mmol/L Calcium 7.1 (L) 8.5 - 10.5 mg/dL eGFR 88 >=60 mL/min/1.73 m?? eGFR 102 >=60 mL/min/1.73 m?? Hemogram Result Value Ref Range WBC 11.8 (H) 4.0 - 9.5 x10(3)/mcL RBC 3.39 (L) 4.58 - 5.54 x10(6)/mcL Hemoglobin 10.5 (L) 13.7 - 16.5 gm/dL Hematocrit 30.6 (L) 40.5 - 48.5 % MCV 90.3 82.9 - 93.1 fL MCH 31.0 27.5 - 32.1 pg MCHC 34.3 32.0 - 35.7 gm/dL Platelets 95 (L) 145 - 357 x10(3)/mcL RDWSD 53.4 (H) 36.0 - 45.0 fL RDWCV 16.1 (H) 11.4 - 13.8 % MPV 12.0 7.6 - 12.9 fL nRBC % Auto 0.0 % nRBC Abs Auto 0.000 0.000 - 0.000 x10(3)/mcL Differential, Automated Result Value Ref Range Neutrophils % 84.2 % Neutr Abs (ANC) 9.93 (H) 1.70 - 6.10 x10(3)/mcL Lymphocytes % 8.7 % Lymphocytes Abs 1.0 0.9 - 3.2 x10(3)/mcL Monocytes % 6.1 % Monocyte Abs 0.7 0.3 - 0.9 x10(3)/mcL Eosinophils % 0.0 % Eosinophils Abs 0.0 0.0 - 0.4 x10(3)/mcL Basophils % 0.2 % Basophils Abs 0.0 0.0 - 0.1 x10(3)/mcL Immature Gran % 0.80 % Ana Gran Abs 0.09 (H) 0.00 - 0.04 x10(3)/mcL C. Difficile Screen Specimen: Stool Result Value Ref Range C Diff Screen Negative Negative Basic Metabolic Panel (non-fasting) Result Value Ref Range Glucose Lvl 115 65 - 199 mg/dL BUN 11 10 - 20 mg/dL Creatinine 0.78 (L) 0.80 - 1.50 mg/dL Sodium 138 135 - 145 mmol/L Potassium 3.4 (L) 3.5 - 5.0 mmol/L Chloride 109 (H) 98 - 107 mmol/L CO2 22 22 - 31 mmol/L Anion Gap 7 5 - 15 mmol/L Calcium 6.8 (CRIT) 8.5 - 10.5 mg/dL eGFR 93 >=60 mL/min/1.73 m?? eGFR 108 >=60 mL/min/1.73 m?? Hemogram Result Value Ref Range WBC 8.6 4.0 - 9.5 x10(3)/mcL RBC 3.09 (L) 4.58 - 5.54 x10(6)/mcL Hemoglobin 9.6 (L) 13.7 - 16.5 gm/dL Hematocrit 28.3 (L) 40.5 - 48.5 % MCV 91.6 82.9 - 93.1 fL MCH 31.1 27.5 - 32.1 pg MCHC 33.9 32.0 - 35.7 gm/dL Platelets 86 (L) 145 - 357 x10(3)/mcL RDWSD 54.6 (H) 36.0 - 45.0 fL RDWCV 16.4 (H) 11.4 - 13.8 % MPV 10.7 7.6 - 12.9 fL nRBC % Auto 0.0 % nRBC Abs Auto 0.000 0.000 - 0.000 x10(3)/mcL Differential, Automated Result Value Ref Range Neutrophils % 77.2 % Neutr Abs (ANC) 6.63 (H) 1.70 - 6.10 x10(3)/mcL Lymphocytes % 9.4 % Lymphocytes Abs 0.8 (L) 0.9 - 3.2 x10(3)/mcL Monocytes % 12.3 % Monocyte Abs 1.1 (H) 0.3 - 0.9 x10(3)/mcL Eosinophils % 0.2 % Eosinophils Abs 0.0 0.0 - 0.4 x10(3)/mcL Basophils % 0.3 % Basophils Abs 0.0 0.0 - 0.1 x10(3)/mcL Immature Gran % 0.60 % Ana Gran Abs 0.05 (H) 0.00 - 0.04 x10(3)/mcL Hemogram Result Value Ref Range WBC 7.6 4.0 - 9.5 x10(3)/mcL RBC 3.05 (L) 4.58 - 5.54 x10(6)/mcL Hemoglobin 9.6 (L) 13.7 - 16.5 gm/dL Hematocrit 28.9 (L) 40.5 - 48.5 % MCV 94.8 (H) 82.9 - 93.1 fL MCH 31.5 27.5 - 32.1 pg MCHC 33.2 32.0 - 35.7 gm/dL Platelets 78 (L) 145 - 357 x10(3)/mcL RDWSD 57.1 (H) 36.0 - 45.0 fL RDWCV 16.3 (H) 11.4 - 13.8 % MPV 11.1 7.6 - 12.9 fL nRBC % Auto 0.0 % nRBC Abs Auto 0.000 0.000 - 0.000 x10(3)/mcL Differential, Automated Result Value Ref Range Neutrophils % 68.1 % Neutr Abs (ANC) 5.21 1.70 - 6.10 x10(3)/mcL Lymphocytes % 14.8 % Lymphocytes Abs 1.1 0.9 - 3.2 x10(3)/mcL Monocytes % 13.3 % Monocyte Abs 1.0 (H) 0.3 - 0.9 x10(3)/mcL Eosinophils % 2.9 % Eosinophils Abs 0.2 0.0 - 0.4 x10(3)/mcL Basophils % 0.4 % Basophils Abs 0.0 0.0 - 0.1 x10(3)/mcL Immature Gran % 0.50 % Ana Gran Abs 0.04 0.00 - 0.04 x10(3)/mcL Basic Metabolic Panel (non-fasting) Result Value Ref Range Glucose Lvl 113 65 - 199 mg/dL BUN 10 10 - 20 mg/dL Creatinine 0.82 0.80 - 1.50 mg/dL Sodium 139 135 - 145 mmol/L Potassium 3.6 3.5 - 5.0 mmol/L Chloride 109 (H) 98 - 107 mmol/L CO2 23 22 - 31 mmol/L Anion Gap 7 5 - 15 mmol/L Calcium 7.4 (L) 8.5 - 10.5 mg/dL eGFR 92 >=60 mL/min/1.73 m?? eGFR 106 >=60 mL/min/1.73 m?? Creatinine Level Body Fluid DARYN Drain Result Value Ref Range Creat, BF 0.8 mg/dL Creat, BF Type DARYN Drain Lactate, whole blood, send to lab [place] [place] [place] Result Value Ref Range Lactate WB 1.0 0.5 - 2.2 mmol/L Recent Labs 02/18/20 0805 02/17/20 0530 02/16/20 0815 WBC 7.6 8.6 11.8* HGB 9.6* 9.6* 10.5* HCT 28.9* 28.3* 30.6* PLATELET 78* 86* 95* Recent Labs 02/18/20 0933 02/17/20 0530 02/16/20 0815 NA 139 138 138 K 3.6 3.4* 3.5 CL 109* 109* 106 CO2 23 22 22 BUN 10 11 13 CREATININE 0.82 0.78* 0.90 GLUCOSE 113 115 153 CALCIUM 7.4* 6.8* 7.1* DARYN creat: 0.8 Imaging: no recent ASSESSMENT: Wally Aguilar is a 69 y.o. male POD6 s/p cystoprostatectomy with ileal conduit for MIBC who is overall following the expected post-operative course. He has been HDS and afebrile overnight. He continues to have large volume diarrhea, flexi-seal in place. GI consulted to help evaluate diarrhea. Will follow up O&P results. Will begin TPN through mediport to help support nutrition asPO intake is minimal. He has an Epidural in place per APS. Once epidural is removed will start lovenox 40mg qHS and request nursing staff teach patient how to perform lovenox injection. Will work to advance mobility with PT/OT. Will continue continue to monitor. Goals for today: OOB/PT/OT GI consult TPN PLAN: Neuro: pain control: Epidural, tylenol, tramadol, Card: HDS, Monitor vital signs, [id number] Pulm: albuterol, ambulation, ISC, cough, deep breathing FEN: mIVF @100ml/hr, replete lytes prn, strict I/O's GI: bowel meds prn, Regular diet, zofran, compazine, protonix Renal/: monitor urine output Heme: no active issues ID: perioperative ceftriaxone, flagyl completed, no active issues Endo: no active issues Home Meds: atorvastatin, metoprolol, chantix PPx: SQH, SCDs, ambulation, ISC, cough, deep breathing Dispo: Stable, Attempt Cardiopulmonary Resuscitation - Inpatient La Jean-Baptiste MD 02/19/2020 Pgr. [id number] * Dariela Fitch MD - 02/18/2020 10:20 AM EDT Acute Pain Service - Epidural Daily Management VITAL SIGNS: Visit Vitals BP 106/65 (BP Location (NBP): Left arm, Patient Position: Lying) Pulse 84 Temp 36.6 ??C (97.9 ??F) (Oral) Resp 19 Ht 167.6 cm (5' 6) Wt 58.7 kg (129 lb 8 oz) SpO2 98% BMI 20.90 kg/m?? Body mass index is 20.9 kg/m??. Labs: WBC Date Value Ref Range Status 02/18/2020 7.6 4.0 - 9.5 x10(3)/mcL Final Hemoglobin Date Value Ref Range Status 02/18/2020 9.6 (L) 13.7 - 16.5 gm/dL Final Hematocrit Date Value Ref Range Status 02/18/2020 28.9 (L) 40.5 - 48.5 % Final Platelets Date Value Ref Range Status 02/18/2020 78 (L) 145 - 357 x10(3)/mcL Final Operative Procedures: Procedure(s): @CYSTECTOMY, COMPLETE, WITH ILEAL CONDUIT (WRVU 36.33) @LYMPHADENECTOMY, PELVIC, INCLUDING MULTIPLE NODES-FELA (WRVU 14.06) LIVER BIOPSY APS Opioid Administration Hx All administrations since 02/17/2020 are shown below each listed medication. Other Order Route Rate Dose Action Date HYDROmorphone (Dilaudid) 10 mcg/mL, BUpivacaine (Marcaine) 0.1% (0.1 mg/mL) (1/10%) in sodium chloride 0.9% 250 mL epidural Epidural 6 mL/hr 6 mL/hr New Bag 02/17/2020 DH AN APS EPIDURAL ROUNDIN02/18/2020 10:20 AM Average Numeric Rating Pain Score (0-10):: 2 Post-Op Day:: 5 Epidural Day:: 6 Epidural Infusion (solution):: HYDROmorphone 10 mcg/mL and BUpivacaine 0.1% Epidural Infusion Rate (mL/hr): 6 PCEA Dose (mL): 3 Out of Bed: No Ambulation: No Able to Use Incentive Spirometry: Yes Escalation of Care: No Tolerating Regular Diet: No Epidural Catheter Removed (Intact unless noted in Comments): No Notes/Plan: Mr. Aguilar continues to report mild discomfort and adequate pain control with epidural/PCEA. Pt is continuing to avoid PO Tylenol, and PO intake in general. Pt continues to complain of reflux symptoms despite IV Protonix, and continues to have copious diarrhea. Pt remains afebrile with downtrendingWBC count (c.diff negative as anticipated). Urology team very aware, and considering possible GI consult and TPN due to pt's nutritional deficit at baseline, and now persisting. Plan to continue epidural analgesia/PCEA at present with consideration of initiating very gradual wean in AM as epidural will have been in place for seven days time. Attending Physician:: Dariela Fitch MD * Nima Armstrong MD - 02/18/2020 9:58 AM EDT POD #5 Cystectomy conduit Remains quite amotivated. Minimal walking No substantial pain Not great oral intake Continued diarrohea Afebrile BP ~ 105/65 HR 78 Abdomen benign Incision healthy Conduit healthy UO 435, I's ~ 2liters all IV po not recorded DARYN 1015 Stool 2 liters Negative 3 liters Hb 7.6, Plt 78, Cr 0.78, BUN 11, K 3.4 C. Diff negative Impression Unsure why so much diarrhea. Poor nutritional status. Plan DARYN for creatinine Stool for O &P Replace Stool output cc for cc q 8 If diarrohea continues tomorrow will ask for GI input Calorie counts on going. Likely TPN tomorrow as I am not sure we will be able to give enteral feed given diarrohea issue. Nima Armstrong * Soniya Paulson MD - 02/17/2020 9:37 AM EDT Urology Inpatient Progress Note Patient Name: Wally Aguilar Patient Age: 69 y.o. Birthdate: 1950 Admit date: 02/13/2020 Attending Physician: Nima Armstrong MD ID: Wally Aguilar is a 69 y.o. male LOS: 4 days 4 Days Post-Op from a cystoprostatectomy with ileal conduit for MIBC. 24hr events: ?? Overnight, liquid diarrhea and rectal skin pain, flexiseal placed ?? C diff test pending ?? Sleeping this AM ?? Comfortable ?? Poor po intake, initiated calorie counts ?? Not getting out of bed, encouraged ambulation this AM ?? Hgb 9.6 from 10.5 (transfused 2 days ago) ?? Pain is well controlled. ?? + flatus/ + BM. O: Last value Range last 24hrs Temperature Temp: 37.2 ??C (99 ??F) Temp: [36.6 ??C (97.9 ??F)-37.2 ??C (99 ??F)] Heart Rate Heart Rate: 84 Heart Rate: [84] Blood Pressure BP: 102/59 BP: (102-127)/(59-73) Respiratory Rate Resp: 16 Resp: [16-22] SpO2 SpO2: 95 % SpO2: [93 %-96 %] 02/15 0701 - 02/16 0700 In: 3672.1 [P.O.:100; I.V.:3412] Out: 1380 [Urine:475] DARYN drain: 905cc, serous Physical Exam: General: NAD, resting in bed, withdrawn/flat affect HEENT: normocephalic, anicteric sclerae CVS: regular rate Pulm: normal respirations, no use of accessory muscles, no stridor/audible wheezing Abd: soft, appropriately tender, non-distended. No guarding. Midline incision well approximated with stables. DARYN drain with serosanguinous output. : Urostomy PPV with CYU draining. Stents visible. Skin: warm, dry Ext: well perfused, no LE edema Neuro: Grossly intact, nonfocal Labs: Recent Results (from the past 72 hour(s)) KAMAR, legs, multiple levels Result Value Ref Range VB Text Report Department: Vascular Surgery Lab Patient: [id number] (WALLY AGUILAR) CPT: 30103 ICD10: I70.211;I73.9;C79.89;C67.9 Referring Physician: NIMA ARMSTRONG Indications: Patient with h/o right leg pain with walking, ? blood flow to feet Diabetes mellitus: No ICD10 Diagnosis Code: I73.9, I70.211, C79.89, C67.9 Findings: Right Pressure (mm Hg) KAMAR Waveform Common Femoral Artery Monophasic Popliteal Artery Monophasic Dorsalis Pedis (Ankle) Artery 31 0.36 Monophasic Posterior Tibial (Ankle) Artery 26 0.30 Monophasic Left Pressure (mm Hg) KAMAR Waveform Brachial Artery 86 Common Femoral Artery [place]has[place] Popliteal Artery [place] Dorsalis Pedis (Ankle) Artery 61 0.71 [place] Posterior Tibial (Ankle) Artery 73 0.85 [place]has[place] Interpretation: RIGHT: Moderately severe lower extremity arterial occlusive disease. Findings are consistent with aortoiliac disease. LEFT: Mild lower extremity arterial occlusive disease. Findings are consistent with aortoiliac disease. Comment: The RIGHT brachial pressure was not obtained due to right arm IV's. Comparison: No previous study in our vascular lab database for comparison. Electronically Signed by: EDIE JEAN MD on 2020-02-14 03:45:55 PM VB Text Report End of Report Basic Metabolic Panel (non-fasting) Result Value Ref Range Glucose Lvl 104 65 - 199 mg/dL BUN 26 (H) 10 - 20 mg/dL Creatinine 1.13 0.80 - 1.50 mg/dL Sodium 137 135 - 145 mmol/L Potassium 3.8 3.5 - 5.0 mmol/L Chloride 107 98 - 107 mmol/L CO2 23 22 - 31 mmol/L Anion Gap 7 5 - 15 mmol/L Calcium 7.0 (L) 8.5 - 10.5 mg/dL eGFR 67 >=60 mL/min/1.73 m?? eGFR 78 >=60 mL/min/1.73 m?? Hemogram Result Value Ref Range WBC 6.5 4.0 - 9.5 x10(3)/mcL RBC 2.03 (L) 4.58 - 5.54 x10(6)/mcL Hemoglobin 6.5 (L) 13.7 - 16.5 gm/dL Hematocrit 19.4 (L) 40.5 - 48.5 % MCV 95.6 (H) 82.9 - 93.1 fL MCH 32.0 27.5 - 32.1 pg MCHC 33.5 32.0 - 35.7 gm/dL Platelets 99 (L) 145 - 357 x10(3)/mcL RDWSD 51.6 (H) 36.0 - 45.0 fL RDWCV 14.6 (H) 11.4 - 13.8 % MPV 11.9 7.6 - 12.9 fL nRBC % Auto 0.0 % nRBC Abs Auto 0.000 0.000 - 0.000 x10(3)/mcL Differential, Automated Result Value Ref Range Neutrophils % 68.5 % Neutr Abs (ANC) 4.46 1.70 - 6.10 x10(3)/mcL Lymphocytes % 19.1 % Lymphocytes Abs 1.2 0.9 - 3.2 x10(3)/mcL Monocytes % 8.5 % Monocyte Abs 0.6 0.3 - 0.9 x10(3)/mcL Eosinophils % 3.1 % Eosinophils Abs 0.2 0.0 - 0.4 x10(3)/mcL Basophils % 0.3 % Basophils Abs 0.0 0.0 - 0.1 x10(3)/mcL Immature Gran % 0.50 % Ana Gran Abs 0.03 0.00 - 0.04 x10(3)/mcL Scan, Peripheral Blood Result Value Ref Range Plat Estimate Decreased RBC Morphology Abnormal Macrocytes 1-5 /HPF Microcytes 1-5 /HPF Hypochromia Moderate Toxic Granulation Present Hemogram Result Value Ref Range WBC 6.4 4.0 - 9.5 x10(3)/mcL RBC 2.00 (L) 4.58 - 5.54 x10(6)/mcL Hemoglobin 6.3 (L) 13.7 - 16.5 gm/dL Hematocrit 19.0 (L) 40.5 - 48.5 % MCV 95.0 (H) 82.9 - 93.1 fL MCH 31.5 27.5 - 32.1 pg MCHC 33.2 32.0 - 35.7 gm/dL Platelets 94 (L) 145 - 357 x10(3)/mcL RDWSD 51.5 (H) 36.0 - 45.0 fL RDWCV 14.7 (H) 11.4 - 13.8 % MPV 11.9 7.6 - 12.9 fL nRBC % Auto 0.0 % nRBC Abs Auto 0.000 0.000 - 0.000 x10(3)/mcL Prepare RBC Result Value Ref Range Dispensed? Yes Prepare RBC Result Value Ref Range Dispensed? Yes Hemogram Result Value Ref Range WBC 7.8 4.0 - 9.5 x10(3)/mcL RBC 2.63 (L) 4.58 - 5.54 x10(6)/mcL Hemoglobin 8.3 (L) 13.7 - 16.5 gm/dL Hematocrit 24.4 (L) 40.5 - 48.5 % MCV 92.8 82.9 - 93.1 fL MCH 31.6 27.5 - 32.1 pg MCHC 34.0 32.0 - 35.7 gm/dL Platelets 99 (L) 145 - 357 x10(3)/mcL RDWSD 52.1 (H) 36.0 - 45.0 fL RDWCV 15.3 (H) 11.4 - 13.8 % MPV 11.6 7.6 - 12.9 fL nRBC % Auto 0.0 % nRBC Abs Auto 0.000 0.000 - 0.000 x10(3)/mcL Hemogram Result Value Ref Range WBC 9.1 4.0 - 9.5 x10(3)/mcL RBC 3.28 (L) 4.58 - 5.54 x10(6)/mcL Hemoglobin 10.3 (L) 13.7 - 16.5 gm/dL Hematocrit 30.4 (L) 40.5 - 48.5 % MCV 92.7 82.9 - 93.1 fL MCH 31.4 27.5 - 32.1 pg MCHC 33.9 32.0 - 35.7 gm/dL Platelets 99 (L) 145 - 357 x10(3)/mcL RDWSD 53.1 (H) 36.0 - 45.0 fL RDWCV 15.6 (H) 11.4 - 13.8 % MPV 11.8 7.6 - 12.9 fL nRBC % Auto 0.0 % nRBC Abs Auto 0.000 0.000 - 0.000 x10(3)/mcL Basic Metabolic Panel (non-fasting) Result Value Ref Range Glucose Lvl 153 65 - 199 mg/dL BUN 13 10 - 20 mg/dL Creatinine 0.90 0.80 - 1.50 mg/dL Sodium 138 135 - 145 mmol/L Potassium 3.5 3.5 - 5.0 mmol/L Chloride 106 98 - 107 mmol/L CO2 22 22 - 31 mmol/L Anion Gap 10 5 - 15 mmol/L Calcium 7.1 (L) 8.5 - 10.5 mg/dL eGFR 88 >=60 mL/min/1.73 m?? eGFR 102 >=60 mL/min/1.73 m?? Hemogram Result Value Ref Range WBC 11.8 (H) 4.0 - 9.5 x10(3)/mcL RBC 3.39 (L) 4.58 - 5.54 x10(6)/mcL Hemoglobin 10.5 (L) 13.7 - 16.5 gm/dL Hematocrit 30.6 (L) 40.5 - 48.5 % MCV 90.3 82.9 - 93.1 fL MCH 31.0 27.5 - 32.1 pg MCHC 34.3 32.0 - 35.7 gm/dL Platelets 95 (L) 145 - 357 x10(3)/mcL RDWSD 53.4 (H) 36.0 - 45.0 fL RDWCV 16.1 (H) 11.4 - 13.8 % MPV 12.0 7.6 - 12.9 fL nRBC % Auto 0.0 % nRBC Abs Auto 0.000 0.000 - 0.000 x10(3)/mcL Differential, Automated Result Value Ref Range Neutrophils % 84.2 % Neutr Abs (ANC) 9.93 (H) 1.70 - 6.10 x10(3)/mcL Lymphocytes % 8.7 % Lymphocytes Abs 1.0 0.9 - 3.2 x10(3)/mcL Monocytes % 6.1 % Monocyte Abs 0.7 0.3 - 0.9 x10(3)/mcL Eosinophils % 0.0 % Eosinophils Abs 0.0 0.0 - 0.4 x10(3)/mcL Basophils % 0.2 % Basophils Abs 0.0 0.0 - 0.1 x10(3)/mcL Immature Gran % 0.80 % Ana Gran Abs 0.09 (H) 0.00 - 0.04 x10(3)/mcL Basic Metabolic Panel (non-fasting) Result Value Ref Range Glucose Lvl 115 65 - 199 mg/dL BUN 11 10 - 20 mg/dL Creatinine 0.78 (L) 0.80 - 1.50 mg/dL Sodium 138 135 - 145 mmol/L Potassium 3.4 (L) 3.5 - 5.0 mmol/L Chloride 109 (H) 98 - 107 mmol/L CO2 22 22 - 31 mmol/L Anion Gap 7 5 - 15 mmol/L Calcium 6.8 (CRIT) 8.5 - 10.5 mg/dL eGFR 93 >=60 mL/min/1.73 m?? eGFR 108 >=60 mL/min/1.73 m?? Hemogram Result Value Ref Range WBC 8.6 4.0 - 9.5 x10(3)/mcL RBC 3.09 (L) 4.58 - 5.54 x10(6)/mcL Hemoglobin 9.6 (L) 13.7 - 16.5 gm/dL Hematocrit 28.3 (L) 40.5 - 48.5 % MCV 91.6 82.9 - 93.1 fL MCH 31.1 27.5 - 32.1 pg MCHC 33.9 32.0 - 35.7 gm/dL Platelets 86 (L) 145 - 357 x10(3)/mcL RDWSD 54.6 (H) 36.0 - 45.0 fL RDWCV 16.4 (H) 11.4 - 13.8 % MPV 10.7 7.6 - 12.9 fL nRBC % Auto 0.0 % nRBC Abs Auto 0.000 0.000 - 0.000 x10(3)/mcL Differential, Automated Result Value Ref Range Neutrophils % 77.2 % Neutr Abs (ANC) 6.63 (H) 1.70 - 6.10 x10(3)/mcL Lymphocytes % 9.4 % Lymphocytes Abs 0.8 (L) 0.9 - 3.2 x10(3)/mcL Monocytes % 12.3 % Monocyte Abs 1.1 (H) 0.3 - 0.9 x10(3)/mcL Eosinophils % 0.2 % Eosinophils Abs 0.0 0.0 - 0.4 x10(3)/mcL Basophils % 0.3 % Basophils Abs 0.0 0.0 - 0.1 x10(3)/mcL Immature Gran % 0.60 % Ana Gran Abs 0.05 (H) 0.00 - 0.04 x10(3)/mcL Recent Labs 02/17/20 0530 02/16/20 0815 02/15/20 1805 02/15/20 1230 02/15/20 0545 WBC 8.6 11.8* 9.1 7.8 6.4 HGB 9.6* 10.5* 10.3* 8.3* 6.3* HCT 28.3* 30.6* 30.4* 24.4* 19.0* PLATELET 86* 95* 99* 99* 94* Recent Labs 02/17/20 0530 02/16/20 0815 02/15/20 0420 NA 138 138 137 K 3.4* 3.5 3.8 CL 109* 106 107 CO2 22 22 23 BUN 11 13 26* CREATININE 0.78* 0.90 1.13 GLUCOSE 115 153 104 CALCIUM 6.8* 7.1* 7.0* Imaging: Vascular Labs: ABIs 02/14/20: Findings: ?? Right ?Pressure (mm Hg) ?? KAMAR ??Waveform ? Common Femoral Artery ?Monophasic ?? Popliteal Artery ? Monophasic ?? Dorsalis Pedis (Ankle) Artery ?31 ?0.36 ??Monophasic ?? Posterior Tibial (Ankle) Artery ??26 ?0.30 ??Monophasic ? Left ? Pressure (mm Hg) ?? KAMAR ??Waveform ? Brachial Artery ?86 ? Common Femoral Artery ?[place]has[place] ?? Popliteal Artery ? [place] ?? Dorsalis Pedis (Ankle) Artery ?61 ?0.71 ??[place]has[place] ?? Posterior Tibial (Ankle) Artery ??73 ?0.85 ??[place] ? Interpretation: ?? RIGHT: Moderately severe lower extremity arterial occlusive disease. Findings are consistent with aortoiliac disease. ?? LEFT: Mild lower extremity arterial occlusive disease. Findings are consistent with aortoiliac disease. ?? Comment: The RIGHT brachial pressure was not obtained due to right arm IV's. Vascular Surgery Recommendation 02/14/20: - No vascular intervention indicated at this time - Continue ASA, statin - Will plan to have patient follow up in vascular surgery clinic as an outpatient with a CTA of hisabdomen and pelvis with bilateral lower extremity runoff. At that time, will assess and discuss revascularization options with the patient ASSESSMENT: Wally Aguilar is a 69 y.o. male 4 Days Post-Op s/p cystoprostatectomy with ileal conduit for MIBC who is overall following the expected post-operative course. Liquid stool now w/ flexi-seal, c diff pending. Stopped alvimopam. He has been HDS and afebrile overnight. Hgb down slightly, though not entirely unexpected 2 days after transfusion. Will continue to monitor anemia. 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 On ASA/statin per vascular recs. He has an Epidural in place per APS. Once epidural is removed will start lovenox 40mg qHS and request nursing staff teach patient how to perform lovenox injection. Will work to advance mobility with PT/OT. Encouraged nursing to promote ambulation. Minimal po intake, though seems due to lack of motivation. Encouraged oral intake. Goals for today: Ambulation Po intake PLAN: Neuro: pain control: Epidural, tylenol, tramadol; chantix Card: HDS, Monitor vital signs, ASA81/statin per vasc recs, metoprolol Pulm: albuterol, ambulation, ISC, cough, deep breathing FEN: mIVF @100ml/hr, replete lytes prn, strict I/O's, calorie counts GI: bowel meds prn, Regular diet, zofran, compazine Renal/: monitor urine output Heme: no active issues ID: perioperative ceftriaxone, flagyl completed, no active issues Endo: no active issues Home Meds: atorvastatin, metoprolol, chantix PPx: SQH, SCDs, ambulation, ISC, cough, deep breathing Dispo: Stable, Attempt Cardiopulmonary Resuscitation - Inpatient Soniya Paulson MD 02/17/2020 * Dariela Fitch MD - 02/17/2020 9:00 AM EDT Acute Pain Service - Epidural Daily Management VITAL SIGNS: Visit Vitals BP 101/58 (BP Location (NBP): Left arm, Patient Position: Lying) Pulse 84 Temp 36.8 ??C (98.2 ??F) (Oral) Resp 16 Ht 167.6 cm (5' 6) Wt 58.7 kg (129 lb 8 oz) SpO2 93% BMI 20.90 kg/m?? Body mass index is 20.9 kg/m??. Labs: WBC Date Value Ref Range Status 02/17/2020 8.6 4.0 - 9.5 x10(3)/mcL Final Hemoglobin Date Value Ref Range Status 02/17/2020 9.6 (L) 13.7 - 16.5 gm/dL Final Hematocrit Date Value Ref Range Status 02/17/2020 28.3 (L) 40.5 - 48.5 % Final Platelets Date Value Ref Range Status 02/17/2020 86 (L) 145 - 357 x10(3)/mcL Final Operative Procedures: Procedure(s): @CYSTECTOMY, COMPLETE, WITH ILEAL CONDUIT (WRVU 36.33) @LYMPHADENECTOMY, PELVIC, INCLUDING MULTIPLE NODES-FELA (WRVU 14.06) LIVER BIOPSY APS Opioid Administration Hx All administrations since 02/16/2020 are shown below each listed medication. Other Order Route Rate Dose Action Date HYDROmorphone (Dilaudid) 10 mcg/mL, BUpivacaine (Marcaine) 0.1% (0.1 mg/mL) (1/10%) in sodium chloride 0.9% 250 mL epidural Epidural 6 mL/hr 6 mL/hr New Bag 02/17/2020 Epidural 6 mL/hr 6 mL/hr New Bag 02/16/2020 AN APS EPIDURAL ROUNDIN02/17/2020 9:59 AM Average Numeric Rating Pain Score (0-10):: 2 Post-Op Day:: 4 Epidural Day:: 5 Epidural Infusion (solution):: HYDROmorphone 10 mcg/mL and BUpivacaine 0.1% Epidural Infusion Rate (mL/hr): 6 PCEA Dose (mL): 3 Out of Bed: No Ambulation: No Able to Use Incentive Spirometry: Yes Escalation of Care: No Tolerating Regular Diet: No Epidural Catheter Removed (Intact unless noted in Comments): No Notes/Plan: Mr. Aguilar continues to report adequate pain control in the mild range, but continues to have issues with copious bowel movements. Of note, pt continues to be afebrile with a downtrending WBC count. Pt has had decreased PO intake over the last 36 hours, and is continuing to refuse PO Tylenol (and has not used PRN Tramadol (baseline home medication, 50 mg Q6H PRN) and has not taken in much PO at all despite addition of IV Protonix. Plan to continue epidural/PCEA while awaiting pt's ability to tolerate PO. Plan discussed with pt, team and pt's RN, Chantale. Attending Physician:: Dariela Fitch MD * Fifi Price, RD - 02/17/2020 7:17 AM EDT Nutrition Consult Note Patient admitted with bladder CA s/p radical cystoprostatectomy + Ileal Conduit (02/13/20), relevant medical history includes asthma, hypertension, hyperlipidemia, smoker (2 ppd for 50 years). Wally Aguilar is a 69 y.o. male Reason for intervention: Consult: requesting Calorie Count assessment Nutrition Recommendations: Calorie count started to run: 02/16 Breakfast - 02/18 Dinner meals. Will follow-up with results on 02/20/20. -Continue Regular diet -Discussed increase calorie and protein needs with patient, reviewed high calorie and protein foods -Patient dislikes Ensure clear, amenable to Ensure Enlive w/ IC x2 daily (with meals so counted towards calorie count) -Encouraged good PO intake and hydration, patient receptive to small frequent meals -Monitor lytes and replete as indicated -Biweekly weights appreciated (SS preferred as able) Active Orders Diet Regular diet Frequency: Effective Now Number of Occurrences: Until Specified Nourishments Adult diet Oral Supplements Boost Breeze (clear liquid) Frequency: 4 Times Daily Number of Occurrences: Until Specified Lab Results Component Value Date NA 138 02/17/2020 K 3.4 (L) 02/17/2020 CL 109 (H) 02/17/2020 CO2 22 02/17/2020 BUN 11 02/17/2020 CREATININE 0.78 (L) 02/17/2020 GFRAA 108 02/17/2020 ESTGFR 93 02/17/2020 MAGNESIUM 0.79 02/13/2020 CALCIUM 6.8 (CRIT) 02/17/2020 PHOS 3.2 02/13/2020 AST 8 01/15/2020 ALT 8 01/15/2020 ALKPHOS 164 (H) 01/15/2020 BILITOT 0.2 01/15/2020 TRIG 126 01/25/2020 CRP 1.2 01/25/2020 IRON 81 01/25/2020 No results found for: POCGLU Skin Status: Shift Pressure Injury Prevention Occiput: No Injury Thoracic Spine: No Injury Sacral: Redness, Blanchable Ischial - left: No Injury Ischial - right: No Injury Heel - left: No Injury Heel - right: No Injury Elbow - left: No Injury Elbow - right: No Injury Device Sites: O2 sat monitor, SCD's/venodynes Other Sites: DARYN, Urostomy Relevant medications: protonix, D5 .45NaCl w/ KCl (100 ml/hr), zofran prn, compazine prn, others noted Last Bowel Movement: 02/16/20 Admit Weight: 54.8 kg Estimated body mass index is 20.9 kg/m?? as calculated from the following: Height as of this encounter: 167.6 cm (5' 6). Weight as of this encounter: 58.7 kg (129 lb 8 oz). [place] Body Weight: 142 lbs / 64.4 kg Usual Body Weight: 140 lbs per patient report, unable to give timeframe Wt Readings from Last 10 Encounters: 02/16/20 58.7 kg (129 lb 8 oz) 02/15/20 54.4 kg (120 lb) 01/25/20 54.8 kg (120 lb 12.8 oz) 01/15/20 56.2 kg (124 lb) 12/26/19 56.7 kg (125 lb) 12/19/19 58.5 kg (129 lb) 12/05/19 58.6 kg (129 lb 3.2 oz) 11/14/19 57.6 kg (127 lb) 11/07/19 57.6 kg (127 lb) 10/24/19 57.4 kg (126 lb 9.6 oz) Above weight history suggests 6.5% weight loss in ~2 months classified as severe weight loss Assessment: Estimated needs: Calories: 1650 (~30 kcal/kg admit WT); 1700 (MSJ x1.3) Protein: 82 grams (1.5 g/kg) Nutrition Focused Physical Exam (NFPE): Performed on 02/17/20. Subcutaneous fat loss at Orbital region: Mild Upper arm region (triceps/biceps): Moderate Thoracic and lumbar region (ribs, lower back and maxillary line): Not assessed Lean muscle loss to Yazdanism region (temporalis muscle): None present Clavicle bone region (pectoralis major): Moderate Dorsal hand (interosseous muscle): None present Shoulder (deltoid): Moderate Scapular bone region (latissimus dorsi, trapezius muscles): Not assessed Thigh region (quadriceps muscle): Moderate Posterior calf region (gastrocnemius muscle): Moderate Fluid accumulation: Not assessed Nutrition intake and intake history/Interview: Visited patient at bedside who appeared lethargic. Patient reports baseline intake station captain was grazing throughout the day. Patient endorses weight loss, however unable to give timeframe. Patient reports poor PO intake while in hospital eating only 5% of most meals. Discussed increased calorie and protein needs and encouraged small more frequent meals. Can set up snacks in between meals after calorie count (snacks not counted in calorie count). Patient dislikes Ensure clear, but was amenable to chocolate and strawberry Ensure enlive w/ IC BID, addedto meals. Reviewed high calorie foods and protein and encouraged good PO intake and hydration. Nutrition to follow-up on calorie count. Protein-calorie Malnutrition: >5% weight loss in 1 month and Moderate lean muscle loss is consistent with severe protein-calorie malnutrition in the setting of acute illness or injury (Bibiana, JPEN J Parenteral Enteral Nutr. 2012 November; 36(3): 273-83) Nutrition to continue to follow up while inpatient Fifi Price RD Pager #:[phone] * Dariela Fitch MD - 02/16/2020 12:15 PM EDT Acute Pain Service - Epidural Daily Management VITAL SIGNS: Visit Vitals BP 127/73 (BP Location (NBP): Left arm, Patient Position: Sitting) Pulse 97 Temp 36.6 ??C (97.9 ??F) (Oral) Resp 22 Ht 167.6 cm (5' 6) Wt 58.7 kg (129 lb 8 oz) SpO2 95% BMI 20.90 kg/m?? Body mass index is 20.9 kg/m??. Labs: WBC Date Value Ref Range Status 02/16/2020 11.8 (H) 4.0 - 9.5 x10(3)/mcL Final Hemoglobin Date Value Ref Range Status 02/16/2020 10.5 (L) 13.7 - 16.5 gm/dL Final Hematocrit Date Value Ref Range Status 02/16/2020 30.6 (L) 40.5 - 48.5 % Final Platelets Date Value Ref Range Status 02/16/2020 95 (L) 145 - 357 x10(3)/mcL Final Operative Procedures: Procedure(s): @CYSTECTOMY, COMPLETE, WITH ILEAL CONDUIT (WRVU 36.33) @LYMPHADENECTOMY, PELVIC, INCLUDING MULTIPLE NODES-FELA (WRVU 14.06) LIVER BIOPSY APS Opioid Administration Hx All administrations since 02/15/2020 are shown below each listed medication. Other Order Route Rate Dose Action Date HYDROmorphone (Dilaudid) 10 mcg/mL, BUpivacaine (Marcaine) 0.1% (0.1 mg/mL) (1/10%) in sodium chloride 0.9% 250 mL epidural Epidural 6 mL/hr 6 mL/hr New Bag 02/16/2020 Epidural 6 mL/hr 6 mL/hr New Bag 02/15/2020 DH AN APS EPIDURAL ROUNDIN02/16/2020 12:15 PM Average Numeric Rating Pain Score (0-10):: 2 Post-Op Day:: 3 Epidural Day:: 4 Epidural Infusion (solution):: HYDROmorphone 10 mcg/mL and BUpivacaine 0.1% Epidural Infusion Rate (mL/hr): 6 PCEA Dose (mL): 3 Out of Bed: No Ambulation: No Able to Use Incentive Spirometry: Yes Escalation of Care: No Tolerating Regular Diet: No Epidural Catheter Removed (Intact unless noted in Comments): No Notes/Plan: Wally had a difficult night that has continued into this morning. Overnight he had multiple bowel movements that made his rest difficult. This morning he endorses RUQ pain that he describes as burning and constant. He denies any pain around his incision and drains. He also endorses nausea and had one episode of emesis. He appears more drowsy and withdrawn than he did yesterday. His epidural dressing is clear, dry and intact. We made no changes to his epidural today and will begin to wean once he can tolerate oral intake again. Plan was discussed with the patient, his primary RN, and his surgical service. I, BRISA VILLALTA RN, have performed the documentation for this encounter in the presence of and acting as a scribe for Dr. Fitch. APS Nurse: Birsa Villalta RN Resident:: Sarbjit Goel MD Attending Physician:: Dariela Fitch MD I performed the above scribed service and agree with the accuracy of the note. Dariela Fitch MD * La Jean-Baptiste MD - 02/16/2020 7:36 AM EDT Urology Inpatient Progress Note Patient Name: Wally Aguilar Patient Age: 69 y.o. Birthdate: 1950 Admit date: 02/13/2020 Attending Physician: Nima Armstrong MD ID: Wally Aguilar is a 69 y.o. male LOS: 3 days 3 Days Post-Op from a cystoprostatectomy with ileal conduit for MIBC. 24hr events: ?? No overnight events ?? Transfused 2units pRBCs yesterday for downtrending hbg, now improved and stable hbg ?? Reports chronic RLE pain, abd pain that is controlled with pain medicine/epidural ?? No other complaints this AM. ?? Denies OOB yesterday ?? Pain is well controlled. ?? Tolerating regular, no n/v. ?? + flatus/ + BM. ?? No cp/sob. ?? Pt agreeable to BIT team discussion O: Last value Range last 24hrs Temperature Temp: 36.6 ??C (97.9 ??F) Temp: [36.4 ??C (97.5 ??F)-37.3 ??C (99.1 ??F)] Heart Rate Heart Rate: 97 Heart Rate: [87-101] Blood Pressure BP: 133/79 BP: (98-133)/(54-79) Respiratory Rate Resp: 20 Resp: [18-22] SpO2 SpO2: 96 % SpO2: [94 %-97 %] 02/14 701 - 02/15 07 In: 4612.2 [P.O.:400; I.V.:3216] Out: 1870 [Urine:625] DARYN drain: 945cc s/s Physical Exam: General: NAD, resting in bed,withdrawn/flat affect HEENT: normocephalic, anicteric sclerae CVS: regular rate Pulm: normal respirations, no use of accessory muscles, no stridor/audible wheezing Abd: soft, appropriately tender, non-distended. No guarding. Midline incision is c/d/i. DARYN drain with serosanguinous output. : Urostomy PPV with CYU draining. Skin: warm, dry Ext: well perfused, no edema, RLE no palpable pulses. Neuro: Grossly intact, nonfocal Labs: Recent Results (from the past 72 hour(s)) BLOOD GAS 2 ARTERIAL Result Value Ref Range pH Art 7.34 (L) 7.35 - 7.45 pCO2 Art 38 35 - 45 mmHg pO2 Art 243 (H) 85 - 104 mmHg HCO3 Art 20.9 20.0 - 26.0 mmol/L BE Art -5.1 (L) -3.0 - 3.0 mmol/L Hgb Blood Gas 13.3 (L) 13.7 - 16.5 gm/dL O2HB Art 98.5 (H) 94.0 - 97.0 % COHB Art 0.7 % METHB Art 0.2 <=1.5 % Na Whole Blood 131 (L) 135 - 145 mmol/L K Whole Blood 4.2 3.5 - 5.0 mmol/L ICa Whole Blood 1.13 (L) 1.15 - 1.33 mmol/L CL Whole Blood 109 (H) 98 - 107 mmol/L Gluc Whole Bld 135 65 - 199 mg/dL Lactate WB 1.3 0.5 - 2.2 mmol/L FIO2 Art 60 % Flow Art 1.0 LPM PF Ratio Art 405 Temp Art 35.5 [place] Surgical Pathology Report Result Value Ref Range Surgical Pathology Report [id number] Location: OR; OR28; A The signing pathologist has (i) examined the relevant preparation(s) for the specimen(s) and (ii) rendered or confirmed the diagnosis(es). . Frozen Section FROZEN SECTION DIAGNOSIS CFS - Right distal ureter: Urothelial atypia; deeper levels were obtained. - [facility] 02/13/20 12:33 Electronically signed by: Trae Hoang MD Verified: 02/13/2020 Pathologist Performed at: [facility] Dept. of Pathology, [place], [place] This intraoperative consultation should be interpreted as a preliminary diagnosis pending review of the entire specimen and special studies, if any. Frozen Section FROZEN SECTION DIAGNOSIS BFS - Left distal ureter: Urothelial atypia, cannot exclude dysplasia. - [facility] 02/13/20 11:43 Electronically signed by: Trae Hoang MD Verified: 10/2019 Pathologist Performed at: -[facility] [place] Dept[place] of [place]ology, [place], [place] This intraoperative consultation should be interpreted as a preliminary diagnosis pending review of the entire specimen and special studies, if any. Frozen Section FROZEN SECTION DIAGNOSIS - AFS1 Liver mass: Calcified nodule, negative for cancer 02/13/20 11:07 Electronically signed by: Guero Faye MD Verified: 02/13/2020 Pathologist Performed at: -[facility] [place] Dept. of [place]ology, [place], [place] This intraoperative consultation should be interpreted as a preliminary diagnosis pending review of the entire specimen and special studies, if any. BLOOD GAS 2 ARTERIAL Result Value Ref Range pH Art 7.25 (CRIT) 7.35 - 7.45 pCO2 Art 47 (H) 35 - 45 mmHg pO2 Art 216 (H) 85 - 104 mmHg HCO3 Art 20.0 20.0 - 26.0 mmol/L BE Art -7.3 (L) -3.0 - 3.0 mmol/L Hgb Blood Gas 10.1 (L) 13.7 - 16.5 gm/dL O2HB Art 98.4 (H) 94.0 - 97.0 % COHB Art 0.4 % METHB Art 0.3 <=1.5 % Na Whole Blood 128 (L) 135 - 145 mmol/L K Whole Blood 4.7 3.5 - 5.0 mmol/L ICa Whole Blood 1.11 (L) 1.15 - 1.33 mmol/L CL Whole Blood 108 (H) 98 - 107 mmol/L Gluc Whole Bld 138 65 - 199 mg/dL Lactate WB 2.2 0.5 - 2.2 mmol/L FIO2 Art 50 % PF Ratio Art 432 BLOOD GAS 2 ARTERIAL Result Value Ref Range pH Art 7.30 (L) 7.35 - 7.45 pCO2 Art 45 35 - 45 mmHg pO2 Art 212 (H) 85 - 104 mmHg HCO3 Art 21.9 20.0 - 26.0 mmol/L BE Art -4.5 (L) -3.0 - 3.0 mmol/L Hgb Blood Gas 9.0 (L) 13.7 - 16.5 gm/dL O2HB Art 98.2 (H) 94.0 - 97.0 % COHB Art 0.7 % METHB Art 0.3 <=1.5 % Na Whole Blood 129 (L) 135 - 145 mmol/L K Whole Blood 4.6 3.5 - 5.0 mmol/L ICa Whole Blood 1.09 (L) 1.15 - 1.33 mmol/L CL Whole Blood 109 (H) 98 - 107 mmol/L Gluc Whole Bld 155 65 - 199 mg/dL Lactate WB 1.6 0.5 - 2.2 mmol/L FIO2 Art 50 % Flow Art 2.0 LPM PF Ratio Art 424 Temp Art 37.0 [place]elsius BLOOD GAS 2 ARTERIAL Result Value Ref Range pH Art 7.36 7.35 - 7.45 pCO2 Art 44 35 - 45 mmHg pO2 Art 231 (H) 85 - 104 mmHg HCO3 Art 24.1 20.0 - 26.0 mmol/L BE Art -1.4 -3.0 - 3.0 mmol/L Hgb Blood Gas 8.6 (L) 13.7 - 16.5 gm/dL O2HB Art 98.5 (H) 94.0 - 97.0 % COHB Art 0.6 % METHB Art 0.1 <=1.5 % Na Whole Blood 128 (L) 135 - 145 mmol/L K Whole Blood 4.7 3.5 - 5.0 mmol/L ICa Whole Blood 1.02 (L) 1.15 - 1.33 mmol/L CL Whole Blood 109 (H) 98 - 107 mmol/L Gluc Whole Bld 169 65 - 199 mg/dL Lactate WB 1.7 0.5 - 2.2 mmol/L BLOOD GAS 2 ARTERIAL Result Value Ref Range pH Art 7.37 7.35 - 7.45 pCO2 Art 39 35 - 45 mmHg pO2 Art 227 (H) 85 - 104 mmHg HCO3 Art 22.2 20.0 - 26.0 mmol/L BE Art -3.0 -3.0 - 3.0 mmol/L Hgb Blood Gas 8.4 (L) 13.7 - 16.5 gm/dL O2HB Art 97.9 (H) 94.0 - 97.0 % COHB Art 0.9 % METHB Art 0.3 <=1.5 % Na Whole Blood 128 (L) 135 - 145 mmol/L K Whole Blood 4.5 3.5 - 5.0 mmol/L ICa Whole Blood 1.07 (L) 1.15 - 1.33 mmol/L CL Whole Blood 109 (H) 98 - 107 mmol/L Gluc Whole Bld 172 65 - 199 mg/dL Lactate WB 1.7 0.5 - 2.2 mmol/L Basic Metabolic Panel (non-fasting) Result Value Ref Range Glucose Lvl 189 65 - 199 mg/dL BUN 32 (H) 10 - 20 mg/dL Creatinine 1.11 0.80 - 1.50 mg/dL Sodium 138 135 - 145 mmol/L Potassium 4.9 3.5 - 5.0 mmol/L Chloride 106 98 - 107 mmol/L CO2 20 (L) 22 - 31 mmol/L Anion Gap 12 5 - 15 mmol/L Calcium 6.9 (CRIT) 8.5 - 10.5 mg/dL eGFR 68 >=60 mL/min/1.73 m?? eGFR 79 >=60 mL/min/1.73 m?? Hemogram Result Value Ref Range WBC 9.9 (H) 4.0 - 9.5 x10(3)/mcL RBC 2.60 (L) 4.58 - 5.54 x10(6)/mcL Hemoglobin 8.5 (L) 13.7 - 16.5 gm/dL Hematocrit 24.9 (L) 40.5 - 48.5 % MCV 95.8 (H) 82.9 - 93.1 fL MCH 32.7 (H) 27.5 - 32.1 pg MCHC 34.1 32.0 - 35.7 gm/dL Platelets 73 (L) 145 - 357 x10(3)/mcL RDWSD 51.5 (H) 36.0 - 45.0 fL RDWCV 14.6 (H) 11.4 - 13.8 % MPV 12.0 7.6 - 12.9 fL nRBC % Auto 0.0 % nRBC Abs Auto 0.000 0.000 - 0.000 x10(3)/mcL Differential, Automated Result Value Ref Range Neutrophils % 83.9 % Neutr Abs (ANC) 8.30 (H) 1.70 - 6.10 x10(3)/mcL Lymphocytes % 4.8 % Lymphocytes Abs 0.5 (L) 0.9 - 3.2 x10(3)/mcL Monocytes % 10.5 % Monocyte Abs 1.0 (H) 0.3 - 0.9 x10(3)/mcL Eosinophils % 0.0 % Eosinophils Abs 0.0 0.0 - 0.4 x10(3)/mcL Basophils % 0.3 % Basophils Abs 0.0 0.0 - 0.1 x10(3)/mcL Immature Gran % 0.50 % Ana Gran Abs 0.05 (H) 0.00 - 0.04 x10(3)/mcL Basic Metabolic Panel (non-fasting) Result Value Ref Range Glucose Lvl 142 65 - 199 mg/dL BUN 31 (H) 10 - 20 mg/dL Creatinine 1.21 0.80 - 1.50 mg/dL Sodium 138 135 - 145 mmol/L Potassium 5.0 3.5 - 5.0 mmol/L Chloride 106 98 - 107 mmol/L CO2 22 22 - 31 mmol/L Anion Gap 10 5 - 15 mmol/L Calcium 7.3 (L) 8.5 - 10.5 mg/dL eGFR 62 >=60 mL/min/1.73 m?? eGFR 71 >=60 mL/min/1.73 m?? Hemogram Result Value Ref Range WBC 11.6 (H) 4.0 - 9.5 x10(3)/mcL RBC 2.47 (L) 4.58 - 5.54 x10(6)/mcL Hemoglobin 8.0 (L) 13.7 - 16.5 gm/dL Hematocrit 23.5 (L) 40.5 - 48.5 % MCV 95.1 (H) 82.9 - 93.1 fL MCH 32.4 (H) 27.5 - 32.1 pg MCHC 34.0 32.0 - 35.7 gm/dL Platelets 67 (L) 145 - 357 x10(3)/mcL RDWSD 51.4 (H) 36.0 - 45.0 fL RDWCV 14.6 (H) 11.4 - 13.8 % MPV 12.0 7.6 - 12.9 fL nRBC % Auto 0.0 % nRBC Abs Auto 0.000 0.000 - 0.000 x10(3)/mcL Differential, Automated Result Value Ref Range Neutrophils % 82.8 % Neutr Abs (ANC) 9.59 (H) 1.70 - 6.10 x10(3)/mcL Lymphocytes % 7.3 % Lymphocytes Abs 0.8 (L) 0.9 - 3.2 x10(3)/mcL Monocytes % 9.4 % Monocyte Abs 1.1 (H) 0.3 - 0.9 x10(3)/mcL Eosinophils % 0.0 % Eosinophils Abs 0.0 0.0 - 0.4 x10(3)/mcL Basophils % 0.2 % Basophils Abs 0.0 0.0 - 0.1 x10(3)/mcL Immature Gran % 0.30 % Ana Gran Abs 0.04 0.00 - 0.04 x10(3)/mcL Albumin Level Result Value Ref Range Albumin 2.2 (L) 3.2 - 5.2 gm/dL KAMAR, legs, multiple levels Result Value Ref Range VB Text Report Department: Vascular Surgery Lab Patient: [id number] (WALLY AGUILAR) CPT: 76348 ICD10: I70.211;I73.9;C79.89;C67.9 Referring Physician: NIMA ARMSTRONG Indications: Patient with h/o right leg pain with walking, ? blood flow to feet Diabetes mellitus: No ICD10 Diagnosis Code: I73.9, I70.211, C79.89, C67.9 Findings: Right Pressure (mm Hg) KAMAR Waveform Common Femoral Artery Monophasic Popliteal Artery Monophasic Dorsalis Pedis (Ankle) Artery 31 0.36 Monophasic Posterior Tibial (Ankle) Artery 26 0.30 Monophasic Left Pressure (mm Hg) KAMAR Waveform Brachial Artery 86 Common Femoral Artery [place]-Biphasic Popliteal Artery [place] Dorsalis Pedis (Ankle) Artery 61 0.71 [place]has[place] Posterior Tibial (Ankle) Artery 73 0.85 [place]Biphas[place] Interpretation: RIGHT: Moderately severe lower extremity arterial occlusive disease. Findings are consistent with aortoiliac disease. LEFT: Mild lower extremity arterial occlusive disease. Findings are consistent with aortoiliac disease. Comment: The RIGHT brachial pressure was not obtained due to right arm IV's. Comparison: No previous study in our vascular lab database for comparison. Electronically Signed by: EDIE JEAN MD on 2020-02-14 03:45:55 PM VB Text Report End of Report Basic Metabolic Panel (non-fasting) Result Value Ref Range Glucose Lvl 104 65 - 199 mg/dL BUN 26 (H) 10 - 20 mg/dL Creatinine 1.13 0.80 - 1.50 mg/dL Sodium 137 135 - 145 mmol/L Potassium 3.8 3.5 - 5.0 mmol/L Chloride 107 98 - 107 mmol/L CO2 23 22 - 31 mmol/L Anion Gap 7 5 - 15 mmol/L Calcium 7.0 (L) 8.5 - 10.5 mg/dL eGFR 67 >=60 mL/min/1.73 m?? eGFR 78 >=60 mL/min/1.73 m?? Hemogram Result Value Ref Range WBC 6.5 4.0 - 9.5 x10(3)/mcL RBC 2.03 (L) 4.58 - 5.54 x10(6)/mcL Hemoglobin 6.5 (L) 13.7 - 16.5 gm/dL Hematocrit 19.4 (L) 40.5 - 48.5 % MCV 95.6 (H) 82.9 - 93.1 fL MCH 32.0 27.5 - 32.1 pg MCHC 33.5 32.0 - 35.7 gm/dL Platelets 99 (L) 145 - 357 x10(3)/mcL RDWSD 51.6 (H) 36.0 - 45.0 fL RDWCV 14.6 (H) 11.4 - 13.8 % MPV 11.9 7.6 - 12.9 fL nRBC % Auto 0.0 % nRBC Abs Auto 0.000 0.000 - 0.000 x10(3)/mcL Differential, Automated Result Value Ref Range Neutrophils % 68.5 % Neutr Abs (ANC) 4.46 1.70 - 6.10 x10(3)/mcL Lymphocytes % 19.1 % Lymphocytes Abs 1.2 0.9 - 3.2 x10(3)/mcL Monocytes % 8.5 % Monocyte Abs 0.6 0.3 - 0.9 x10(3)/mcL Eosinophils % 3.1 % Eosinophils Abs 0.2 0.0 - 0.4 x10(3)/mcL Basophils % 0.3 % Basophils Abs 0.0 0.0 - 0.1 x10(3)/mcL Immature Gran % 0.50 % Ana Gran Abs 0.03 0.00 - 0.04 x10(3)/mcL Scan, Peripheral Blood Result Value Ref Range Plat Estimate Decreased RBC Morphology Abnormal Macrocytes 1-5 /HPF Microcytes 1-5 /HPF Hypochromia Moderate Toxic Granulation Present Hemogram Result Value Ref Range WBC 6.4 4.0 - 9.5 x10(3)/mcL RBC 2.00 (L) 4.58 - 5.54 x10(6)/mcL Hemoglobin 6.3 (L) 13.7 - 16.5 gm/dL Hematocrit 19.0 (L) 40.5 - 48.5 % MCV 95.0 (H) 82.9 - 93.1 fL MCH 31.5 27.5 - 32.1 pg MCHC 33.2 32.0 - 35.7 gm/dL Platelets 94 (L) 145 - 357 x10(3)/mcL RDWSD 51.5 (H) 36.0 - 45.0 fL RDWCV 14.7 (H) 11.4 - 13.8 % MPV 11.9 7.6 - 12.9 fL nRBC % Auto 0.0 % nRBC Abs Auto 0.000 0.000 - 0.000 x10(3)/mcL Prepare RBC Result Value Ref Range Dispensed? Yes Prepare RBC Result Value Ref Range Dispensed? Yes Hemogram Result Value Ref Range WBC 7.8 4.0 - 9.5 x10(3)/mcL RBC 2.63 (L) 4.58 - 5.54 x10(6)/mcL Hemoglobin 8.3 (L) 13.7 - 16.5 gm/dL Hematocrit 24.4 (L) 40.5 - 48.5 % MCV 92.8 82.9 - 93.1 fL MCH 31.6 27.5 - 32.1 pg MCHC 34.0 32.0 - 35.7 gm/dL Platelets 99 (L) 145 - 357 x10(3)/mcL RDWSD 52.1 (H) 36.0 - 45.0 fL RDWCV 15.3 (H) 11.4 - 13.8 % MPV 11.6 7.6 - 12.9 fL nRBC % Auto 0.0 % nRBC Abs Auto 0.000 0.000 - 0.000 x10(3)/mcL Hemogram Result Value Ref Range WBC 9.1 4.0 - 9.5 x10(3)/mcL RBC 3.28 (L) 4.58 - 5.54 x10(6)/mcL Hemoglobin 10.3 (L) 13.7 - 16.5 gm/dL Hematocrit 30.4 (L) 40.5 - 48.5 % MCV 92.7 82.9 - 93.1 fL MCH 31.4 27.5 - 32.1 pg MCHC 33.9 32.0 - 35.7 gm/dL Platelets 99 (L) 145 - 357 x10(3)/mcL RDWSD 53.1 (H) 36.0 - 45.0 fL RDWCV 15.6 (H) 11.4 - 13.8 % MPV 11.8 7.6 - 12.9 fL nRBC % Auto 0.0 % nRBC Abs Auto 0.000 0.000 - 0.000 x10(3)/mcL Recent Labs 02/15/20 1805 02/15/20 1230 02/15/20 0545 02/15/20 0420 02/14/20 0150 WBC 9.1 7.8 6.4 6.5 11.6* HGB 10.3* 8.3* 6.3* 6.5* 8.0* HCT 30.4* 24.4* 19.0* 19.4* 23.5* PLATELET 99* 99* 94* 99* 67* Recent Labs 02/15/20 0420 02/14/20 0150 02/13/20 1750 NA 137 138 138 K 3.8 5.0 4.9 CL 107 106 106 CO2 23 22 20* BUN 26* 31* 32* CREATININE 1.13 1.21 1.11 GLUCOSE 104 142 189 CALCIUM 7.0* 7.3* 6.9* Imaging: Vascular Labs: ABIs 02/14/20: Findings: ?? Right ?Pressure (mm Hg) ?? KAMAR ??Waveform ? Common Femoral Artery ?Monophasic ?? Popliteal Artery ? Monophasic ?? Dorsalis Pedis (Ankle) Artery ?31 ?0.36 ??Monophasic ?? Posterior Tibial (Ankle) Artery ??26 ?0.30 ??Monophasic ? Left ? Pressure (mm Hg) ?? KAMAR ??Waveform ? Brachial Artery ?86 ? Common Femoral Artery ?[place] Biphas[place] ?? Popliteal Artery ? [place] ?? Dorsalis Pedis (Ankle) Artery ?61 ?0.71 ??[place] Biphas[place] ?? Posterior Tibial (Ankle) Artery ??73 ?0.85 ??[place]has[place] ? Interpretation: ?? RIGHT: Moderately severe lower extremity arterial occlusive disease. Findings are consistent with aortoiliac disease. ?? LEFT: Mild lower extremity arterial occlusive disease. Findings are consistent with aortoiliac disease. ?? Comment: The RIGHT brachial pressure was not obtained due to right arm IV's. Vascular Surgery Recommendation 02/14/20: ??- No vascular intervention indicated at this time - Continue ASA, statin - Will plan to have patient follow up in vascular surgery clinic as an outpatient with a CTA of hisabdomen and pelvis with bilateral lower extremity runoff. At that time, will assess and discuss revascularization options with the patient ASSESSMENT: Wally Aguilar is a 69 y.o. male POD3 s/p cystoprostatectomy with ileal conduit for MIBC who is overall following the expected post-operative course. He has been HDS and afebrile overnight. Acute anemia resolved with 2units of pRBCs yesterday. 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 ABIs performed yesterday which confirmed aortoiliac disease R>L. Vascular surgery recs per above. Will consult [facility] for assistance with post-op coping/mental health support. He has an Epidural in place per APS. Once epidural is removed will start lovenox 40mg qHS and request nursing staff teach patient how to perform lovenox injection. Will work to advance mobility with PT/OT. Tolerating regular diet, will continue to encourage PO intake and continue to monitor. Will resume [id number] home medication given extensive PVD. Goals for today: OOB/PT/OT PLAN: Neuro: pain control: Epidural, tylenol, tramadol, Card: HDS, Monitor vital signs Pulm: albuterol, ambulation, ISC, cough, deep breathing FEN: mIVF @100ml/hr, replete lytes prn, strict I/O's GI: bowel meds prn, Regular diet, zofran, compazine, Alvimopan Renal/: monitor urine output Heme: no active issues ID: perioperative ceftriaxone, flagyl completed, no active issues Endo: no active issues Home Meds: atorvastatin, metoprolol, chantix PPx: SQH, SCDs, ambulation, ISC, cough, deep breathing Dispo: Stable, Attempt Cardiopulmonary Resuscitation - Inpatient La Jean-Baptiste MD 02/16/2020 Pgr. [phone] * Roberto Stoll - 02/15/2020 2:30 PM EDT Narrative:Visited to introduce and assess acceptance of Housing Assistant services. Pt was awake, alert, oriented and in bed. Assessment:Patient coping positively with stresses of illness/hospitalization at this time. Pt saysthat he is hoping to get better and go home and pt requested RN who came to help. Outcome:Housing Assistant services accepted.Conversation to build trusting relationship.Provided pastoral presence. Follow up:yes Time: 05 mins * Miller Bartlett RN - 02/15/2020 11:04 AM EDT Office of Care Management/Discharge Planning Note Care reviewed with primary medical team (Service: urology) and discussed in interdisciplinary rounds. Medical record reviewed. Patient is 69 y.o. male LOS: 2 days 2 Days Post-Op from a cystoprostatectomy with ileal conduit forMIBC in setting of bladder cancer. (urostomy). Has stoma,the blue stent did not have urine flow. Is receiving teaching on pouch change and connection/disconnection from overnight bag and when/how to drain urine from the pouch Plan is for pain control and ambulation. He is getting 2u prbc. KAMAR R leg could not be obtained. Care Management will continue to monitor progress, follow for continuity of care, and assist with discharge planning. Machine Shop Repair Technician: Miller Bartlett Pager [phone] * Nima Bhatia MD - 02/15/2020 9:51 AM EDT Acute Pain Service - Epidural Daily Management VITAL SIGNS: Visit Vitals BP 100/54 Pulse 88 Temp 36.5 ??C (97.7 ??F) (Oral) Resp 18 Ht 167.6 cm (5' 6) Wt 57.9 kg (127 lb 11.2 oz) SpO2 96% BMI 20.61 kg/m?? Body mass index is 20.61 kg/m??. Labs: WBC Date Value Ref Range Status 02/15/2020 6.4 4.0 - 9.5 x10(3)/mcL Final Hemoglobin Date Value Ref Range Status 02/15/2020 6.3 (L) 13.7 - 16.5 gm/dL Final Hematocrit Date Value Ref Range Status 02/15/2020 19.0 (L) 40.5 - 48.5 % Final Platelets Date Value Ref Range Status 02/15/2020 94 (L) 145 - 357 x10(3)/mcL Final Operative Procedures: Procedure(s): @CYSTECTOMY, COMPLETE, WITH ILEAL CONDUIT (WRVU 36.33) @LYMPHADENECTOMY, PELVIC, INCLUDING MULTIPLE NODES-FELA (WRVU 14.06) LIVER BIOPSY APS Opioid Administration Hx All administrations since 02/14/2020 are shown below each listed medication. Other Order Route Rate Dose Action Date HYDROmorphone (Dilaudid) 10 mcg/mL, BUpivacaine (Marcaine) 0.1% (0.1 mg/mL) (1/10%) in sodium chloride 0.9% 250 mL epidural Epidural 6 mL/hr 6 mL/hr New Bag 02/15/2020 Epidural 6 mL/hr 6 mL/hr New Bag 02/14/2020 DH AN APS EPIDURAL ROUNDIN02/15/2020 8:50 AM Average Numeric Rating Pain Score (0-10):: 2 Post-Op Day:: 2 Epidural Day:: 3 Epidural Infusion (solution):: HYDROmorphone 10 mcg/mL and BUpivacaine 0.1% Epidural Infusion Rate (mL/hr): 6 PCEA Dose (mL): 3 Out of Bed: No Ambulation: No Able to Use Incentive Spirometry: Yes Escalation of Care: No Tolerating Regular Diet: No Epidural Catheter Removed (Intact unless noted in Comments): No Notes/Plan: Wally is doing OK this morning. His pain is well controlled and he has used his PCEA minimally. He was able to sit up in bed easily and rates his pain as tolerable. He appears tired and lethargic butconversant. He is tolerating a clear liquid diet and endorses ROBF. He is currently receiving 2U PRBCs. His epidural dressing is clean, dry and intact. We made no changes to his epidural this morning and will plan to check back in with him this afternoon after his transfusion. I, BRISA VILLALTA RN, have performed the documentation for this encounter in the presence of and acting as a scribe for Dr. Bhatia. APS Nurse: Brisa Villalta RN Resident:: Iain Gibson MD Attending Physician:: Nima Bhatia MD I performed the above scribed service and agree with the accuracy of the note. * La Jean-Baptiste MD - 02/15/2020 5:50 AM EDT Addenddum for clinical documentation purposes: Unable to determine type of acute anemia. Urology Inpatient Progress Note Patient Name: Wally Aguilar Patient Age: 69 y.o. Birthdate: 1950 Admit date: 02/13/2020 Attending Physician: Nima Armstrong MD ID: Wally Aguilar is a 69 y.o. male LOS: 2 days 2 Days Post-Op from a cystoprostatectomy with ileal conduit for MIBC. 24hr events: ?? No overnight events ?? Borderline low UOP improved overnight ?? Reports chronic RLE pain, abd pain that is controlled with pain medicine/epidural ?? No other complaints this AM. ?? Denies OOB yesterday ?? Pain is well controlled. ?? Tolerating CLD, no n/v. ?? + flatus/ + BM. ?? No cp/sob. ?? Pt agreeable to BIT team discussion O: Last value Range last 24hrs Temperature Temp: 37.1 ??C (98.8 ??F) Temp: [36.5 ??C (97.7 ??F)-37.1 ??C (98.8 ??F)] Heart Rate Heart Rate: 87 Heart Rate: [86-90] Blood Pressure BP: 98/54 BP: (82-102)/(47-59) Respiratory Rate Resp: 18 Resp: [15-18] SpO2 SpO2: 94 % SpO2: [94 %-98 %] 02/13 0701 - 02/14 0700 In: 2447.5 [P.O.:720; I.V.:1572] Out: 1845 [Urine:900] DARYN drain: 945cc s/s Physical Exam: General: NAD, resting in bed,withdrawn/flat affect HEENT: normocephalic, anicteric sclerae CVS: regular rate Pulm: normal respirations, no use of accessory muscles, no stridor/audible wheezing Abd: soft, appropriately tender, non-distended. No guarding. Midline incision is c/d/i. DARYN drain with serosanguinous output. : Urostomy PPV with CYU draining. Skin: warm, dry Ext: well perfused, no edema, RLE no palpable pulses. Neuro: Grossly intact, nonfocal Labs: Recent Results (from the past 72 hour(s)) Basic Metabolic Panel (non-fasting) Result Value Ref Range Glucose Lvl 131 65 - 199 mg/dL BUN 43 (H) 10 - 20 mg/dL Creatinine 1.26 0.80 - 1.50 mg/dL Sodium 135 135 - 145 mmol/L Potassium 4.0 3.5 - 5.0 mmol/L Chloride 99 98 - 107 mmol/L CO2 20 (L) 22 - 31 mmol/L Anion Gap 16 (H) 5 - 15 mmol/L Calcium 9.0 8.5 - 10.5 mg/dL eGFR 59 (L) >=60 mL/min/1.73 m?? eGFR 68 >=60 mL/min/1.73 m?? Magnesium Result Value Ref Range Magnesium 0.79 0.69 - 1.07 mmol/L Phosphorus Result Value Ref Range Phosphorus 3.2 2.5 - 4.5 mg/dL Hemogram Result Value Ref Range WBC 4.9 4.0 - 9.5 x10(3)/mcL RBC 4.79 4.58 - 5.54 x10(6)/mcL Hemoglobin 15.2 13.7 - 16.5 gm/dL Hematocrit 45.6 40.5 - 48.5 % MCV 95.2 (H) 82.9 - 93.1 fL MCH 31.7 27.5 - 32.1 pg MCHC 33.3 32.0 - 35.7 gm/dL Platelets 87 (L) 145 - 357 x10(3)/mcL RDWSD 50.9 (H) 36.0 - 45.0 fL RDWCV 14.4 (H) 11.4 - 13.8 % MPV 12.2 7.6 - 12.9 fL nRBC % Auto 0.0 % nRBC Abs Auto 0.000 0.000 - 0.000 x10(3)/mcL Differential, Automated Result Value Ref Range Neutrophils % 55.9 % Neutr Abs (ANC) 2.73 1.70 - 6.10 x10(3)/mcL Lymphocytes % 19.7 % Lymphocytes Abs 1.0 0.9 - 3.2 x10(3)/mcL Monocytes % 16.8 % Monocyte Abs 0.8 0.3 - 0.9 x10(3)/mcL Eosinophils % 6.4 % Eosinophils Abs 0.3 0.0 - 0.4 x10(3)/mcL Basophils % 1.0 % Basophils Abs 0.0 0.0 - 0.1 x10(3)/mcL Immature Gran % 0.20 % Ana Gran Abs 0.01 0.00 - 0.04 x10(3)/mcL Scan, Peripheral Blood Result Value Ref Range Plat Estimate Decreased RBC Morphology Normal BLOOD GAS 2 ARTERIAL Result Value Ref Range pH Art 7.34 (L) 7.35 - 7.45 pCO2 Art 38 35 - 45 mmHg pO2 Art 243 (H) 85 - 104 mmHg HCO3 Art 20.9 20.0 - 26.0 mmol/L BE Art -5.1 (L) -3.0 - 3.0 mmol/L Hgb Blood Gas 13.3 (L) 13.7 - 16.5 gm/dL O2HB Art 98.5 (H) 94.0 - 97.0 % COHB Art 0.7 % METHB Art 0.2 <=1.5 % Na Whole Blood 131 (L) 135 - 145 mmol/L K Whole Blood 4.2 3.5 - 5.0 mmol/L ICa Whole Blood 1.13 (L) 1.15 - 1.33 mmol/L CL Whole Blood 109 (H) 98 - 107 mmol/L Gluc Whole Bld 135 65 - 199 mg/dL Lactate WB 1.3 0.5 - 2.2 mmol/L FIO2 Art 60 % Flow Art 1.0 LPM PF Ratio Art 405 Temp Art 35.5 [facility] Surgical Pathology Report Result Value Ref Range Surgical Pathology Report [id number] Location: OR; OR28; A The signing pathologist has (i) examined the relevant preparation(s) for the specimen(s) and (ii) rendered or confirmed the diagnosis(es). . Frozen Section FROZEN SECTION DIAGNOSIS CFS - Right distal ureter: Urothelial atypia; deeper levels were obtained. - [facility] 02/13/20 12:33 Electronically signed by: Trae Hoang MD Verified: 02/13/2020 Pathologist Performed at: -[facility] [place]ology, [place], [place] This intraoperative consultation should be interpreted as a preliminary diagnosis pending review of the entire specimen and special studies, if any. Frozen Section FROZEN SECTION DIAGNOSIS BFS - Left distal ureter: Urothelial atypia, cannot exclude dysplasia. - [facility] 02/13/20 11:43 Electronically signed by: Trae Hoang MD Verified: 10/2019 Pathologist Performed at: [facility] Dept. of Pathology, [place], [place] This intraoperative consultation should be interpreted as a preliminary diagnosis pending review of the entire specimen and special studies, if any. Frozen Section FROZEN SECTION DIAGNOSIS - AFS1 Liver mass: Calcified nodule, negative for cancer 02/13/20 11:07 Electronically signed by: Guero Faye MD Verified: 02/13/2020 Pathologist Performed at: -[facility] [place] Dept. of Pathology, [place], [place] This intraoperative consultation should be interpreted as a preliminary diagnosis pending review of the entire specimen and special studies, if any. BLOOD GAS 2 ARTERIAL Result Value Ref Range pH Art 7.25 (CRIT) 7.35 - 7.45 pCO2 Art 47 (H) 35 - 45 mmHg pO2 Art 216 (H) 85 - 104 mmHg HCO3 Art 20.0 20.0 - 26.0 mmol/L BE Art -7.3 (L) -3.0 - 3.0 mmol/L Hgb Blood Gas 10.1 (L) 13.7 - 16.5 gm/dL O2HB Art 98.4 (H) 94.0 - 97.0 % COHB Art 0.4 % METHB Art 0.3 <=1.5 % Na Whole Blood 128 (L) 135 - 145 mmol/L K Whole Blood 4.7 3.5 - 5.0 mmol/L ICa Whole Blood 1.11 (L) 1.15 - 1.33 mmol/L CL Whole Blood 108 (H) 98 - 107 mmol/L Gluc Whole Bld 138 65 - 199 mg/dL Lactate WB 2.2 0.5 - 2.2 mmol/L FIO2 Art 50 % PF Ratio Art 432 BLOOD GAS 2 ARTERIAL Result Value Ref Range pH Art 7.30 (L) 7.35 - 7.45 pCO2 Art 45 35 - 45 mmHg pO2 Art 212 (H) 85 - 104 mmHg HCO3 Art 21.9 20.0 - 26.0 mmol/L BE Art -4.5 (L) -3.0 - 3.0 mmol/L Hgb Blood Gas 9.0 (L) 13.7 - 16.5 gm/dL O2HB Art 98.2 (H) 94.0 - 97.0 % COHB Art 0.7 % METHB Art 0.3 <=1.5 % Na Whole Blood 129 (L) 135 - 145 mmol/L K Whole Blood 4.6 3.5 - 5.0 mmol/L ICa Whole Blood 1.09 (L) 1.15 - 1.33 mmol/L CL Whole Blood 109 (H) 98 - 107 mmol/L Gluc Whole Bld 155 65 - 199 mg/dL Lactate WB 1.6 0.5 - 2.2 mmol/L FIO2 Art 50 % Flow Art 2.0 LPM PF Ratio Art 424 Temp Art 37.0 Celsius BLOOD GAS 2 ARTERIAL Result Value Ref Range pH Art 7.36 7.35 - 7.45 pCO2 Art 44 35 - 45 mmHg pO2 Art 231 (H) 85 - 104 mmHg HCO3 Art 24.1 20.0 - 26.0 mmol/L BE Art -1.4 -3.0 - 3.0 mmol/L Hgb Blood Gas 8.6 (L) 13.7 - 16.5 gm/dL O2HB Art 98.5 (H) 94.0 - 97.0 % COHB Art 0.6 % METHB Art 0.1 <=1.5 % Na Whole Blood 128 (L) 135 - 145 mmol/L K Whole Blood 4.7 3.5 - 5.0 mmol/L ICa Whole Blood 1.02 (L) 1.15 - 1.33 mmol/L CL Whole Blood 109 (H) 98 - 107 mmol/L Gluc Whole Bld 169 65 - 199 mg/dL Lactate WB 1.7 0.5 - 2.2 mmol/L BLOOD GAS 2 ARTERIAL Result Value Ref Range pH Art 7.37 7.35 - 7.45 pCO2 Art 39 35 - 45 mmHg pO2 Art 227 (H) 85 - 104 mmHg HCO3 Art 22.2 20.0 - 26.0 mmol/L BE Art -3.0 -3.0 - 3.0 mmol/L Hgb Blood Gas 8.4 (L) 13.7 - 16.5 gm/dL O2HB Art 97.9 (H) 94.0 - 97.0 % COHB Art 0.9 % METHB Art 0.3 <=1.5 % Na Whole Blood 128 (L) 135 - 145 mmol/L K Whole Blood 4.5 3.5 - 5.0 mmol/L ICa Whole Blood 1.07 (L) 1.15 - 1.33 mmol/L CL Whole Blood 109 (H) 98 - 107 mmol/L Gluc Whole Bld 172 65 - 199 mg/dL Lactate WB 1.7 0.5 - 2.2 mmol/L Basic Metabolic Panel (non-fasting) Result Value Ref Range Glucose Lvl 189 65 - 199 mg/dL BUN 32 (H) 10 - 20 mg/dL Creatinine 1.11 0.80 - 1.50 mg/dL Sodium 138 135 - 145 mmol/L Potassium 4.9 3.5 - 5.0 mmol/L Chloride 106 98 - 107 mmol/L CO2 20 (L) 22 - 31 mmol/L Anion Gap 12 5 - 15 mmol/L Calcium 6.9 (CRIT) 8.5 - 10.5 mg/dL eGFR 68 >=60 mL/min/1.73 m?? eGFR 79 >=60 mL/min/1.73 m?? Hemogram Result Value Ref Range WBC 9.9 (H) 4.0 - 9.5 x10(3)/mcL RBC 2.60 (L) 4.58 - 5.54 x10(6)/mcL Hemoglobin 8.5 (L) 13.7 - 16.5 gm/dL Hematocrit 24.9 (L) 40.5 - 48.5 % MCV 95.8 (H) 82.9 - 93.1 fL MCH 32.7 (H) 27.5 - 32.1 pg MCHC 34.1 32.0 - 35.7 gm/dL Platelets 73 (L) 145 - 357 x10(3)/mcL RDWSD 51.5 (H) 36.0 - 45.0 fL RDWCV 14.6 (H) 11.4 - 13.8 % MPV 12.0 7.6 - 12.9 fL nRBC % Auto 0.0 % nRBC Abs Auto 0.000 0.000 - 0.000 x10(3)/mcL Differential, Automated Result Value Ref Range Neutrophils % 83.9 % Neutr Abs (ANC) 8.30 (H) 1.70 - 6.10 x10(3)/mcL Lymphocytes % 4.8 % Lymphocytes Abs 0.5 (L) 0.9 - 3.2 x10(3)/mcL Monocytes % 10.5 % Monocyte Abs 1.0 (H) 0.3 - 0.9 x10(3)/mcL Eosinophils % 0.0 % Eosinophils Abs 0.0 0.0 - 0.4 x10(3)/mcL Basophils % 0.3 % Basophils Abs 0.0 0.0 - 0.1 x10(3)/mcL Immature Gran % 0.50 % Ana Gran Abs 0.05 (H) 0.00 - 0.04 x10(3)/mcL Basic Metabolic Panel (non-fasting) Result Value Ref Range Glucose Lvl 142 65 - 199 mg/dL BUN 31 (H) 10 - 20 mg/dL Creatinine 1.21 0.80 - 1.50 mg/dL Sodium 138 135 - 145 mmol/L Potassium 5.0 3.5 - 5.0 mmol/L Chloride 106 98 - 107 mmol/L CO2 22 22 - 31 mmol/L Anion Gap 10 5 - 15 mmol/L Calcium 7.3 (L) 8.5 - 10.5 mg/dL eGFR 62 >=60 mL/min/1.73 m?? eGFR 71 >=60 mL/min/1.73 m?? Hemogram Result Value Ref Range WBC 11.6 (H) 4.0 - 9.5 x10(3)/mcL RBC 2.47 (L) 4.58 - 5.54 x10(6)/mcL Hemoglobin 8.0 (L) 13.7 - 16.5 gm/dL Hematocrit 23.5 (L) 40.5 - 48.5 % MCV 95.1 (H) 82.9 - 93.1 fL MCH 32.4 (H) 27.5 - 32.1 pg MCHC 34.0 32.0 - 35.7 gm/dL Platelets 67 (L) 145 - 357 x10(3)/mcL RDWSD 51.4 (H) 36.0 - 45.0 fL RDWCV 14.6 (H) 11.4 - 13.8 % MPV 12.0 7.6 - 12.9 fL nRBC % Auto 0.0 % nRBC Abs Auto 0.000 0.000 - 0.000 x10(3)/mcL Differential, Automated Result Value Ref Range Neutrophils % 82.8 % Neutr Abs (ANC) 9.59 (H) 1.70 - 6.10 x10(3)/mcL Lymphocytes % 7.3 % Lymphocytes Abs 0.8 (L) 0.9 - 3.2 x10(3)/mcL Monocytes % 9.4 % Monocyte Abs 1.1 (H) 0.3 - 0.9 x10(3)/mcL Eosinophils % 0.0 % Eosinophils Abs 0.0 0.0 - 0.4 x10(3)/mcL Basophils % 0.2 % Basophils Abs 0.0 0.0 - 0.1 x10(3)/mcL Immature Gran % 0.30 % Ana Gran Abs 0.04 0.00 - 0.04 x10(3)/mcL Albumin Level Result Value Ref Range Albumin 2.2 (L) 3.2 - 5.2 gm/dL KAMAR, legs, multiple levels Result Value Ref Range VB Text Report Department: Vascular Surgery Lab Patient: [id number] (WALLY AGUILAR) CPT: 73899 ICD10: I70.211;I73.9;C79.89;C67.9 Referring Physician: NIMA ARMSTRONG Indications: Patient with h/o right leg pain with walking, ? blood flow to feet Diabetes mellitus: No ICD10 Diagnosis Code: I73.9, I70.211, C79.89, C67.9 Findings: Right Pressure (mm Hg) KAMAR Waveform Common Femoral Artery Monophasic Popliteal Artery Monophasic Dorsalis Pedis (Ankle) Artery 31 0.36 Monophasic Posterior Tibial (Ankle) Artery 26 0.30 Monophasic Left Pressure (mm Hg) KAMAR Waveform Brachial Artery 86 Common Femoral Artery [place]Biphasic Popliteal Artery [place] Dorsalis Pedis (Ankle) Artery 61 0.71 [place]has[place] Posterior Tibial (Ankle) Artery 73 0.85 [place]Biphas[place] Interpretation: RIGHT: Moderately severe lower extremity arterial occlusive disease. Findings are consistent with aortoiliac disease. LEFT: Mild lower extremity arterial occlusive disease. Findings are consistent with aortoiliac disease. Comment: The RIGHT brachial pressure was not obtained due to right arm IV's. Comparison: No previous study in our vascular lab database for comparison. Electronically Signed by: EDIE JEAN MD on 2020-02-14 03:45:55 PM VB Text Report End of Report Basic Metabolic Panel (non-fasting) Result Value Ref Range Glucose Lvl 104 65 - 199 mg/dL BUN 26 (H) 10 - 20 mg/dL Creatinine 1.13 0.80 - 1.50 mg/dL Sodium 137 135 - 145 mmol/L Potassium 3.8 3.5 - 5.0 mmol/L Chloride 107 98 - 107 mmol/L CO2 23 22 - 31 mmol/L Anion Gap 7 5 - 15 mmol/L Calcium 7.0 (L) 8.5 - 10.5 mg/dL eGFR 67 >=60 mL/min/1.73 m?? eGFR 78 >=60 mL/min/1.73 m?? Hemogram Result Value Ref Range WBC 6.5 4.0 - 9.5 x10(3)/mcL RBC 2.03 (L) 4.58 - 5.54 x10(6)/mcL Hemoglobin 6.5 (L) 13.7 - 16.5 gm/dL Hematocrit 19.4 (L) 40.5 - 48.5 % MCV 95.6 (H) 82.9 - 93.1 fL MCH 32.0 27.5 - 32.1 pg MCHC 33.5 32.0 - 35.7 gm/dL Platelets 99 (L) 145 - 357 x10(3)/mcL RDWSD 51.6 (H) 36.0 - 45.0 fL RDWCV 14.6 (H) 11.4 - 13.8 % MPV 11.9 7.6 - 12.9 fL nRBC % Auto 0.0 % nRBC Abs Auto 0.000 0.000 - 0.000 x10(3)/mcL Differential, Automated Result Value Ref Range Neutrophils % 68.5 % Neutr Abs (ANC) 4.46 1.70 - 6.10 x10(3)/mcL Lymphocytes % 19.1 % Lymphocytes Abs 1.2 0.9 - 3.2 x10(3)/mcL Monocytes % 8.5 % Monocyte Abs 0.6 0.3 - 0.9 x10(3)/mcL Eosinophils % 3.1 % Eosinophils Abs 0.2 0.0 - 0.4 x10(3)/mcL Basophils % 0.3 % Basophils Abs 0.0 0.0 - 0.1 x10(3)/mcL Immature Gran % 0.50 % Ana Gran Abs 0.03 0.00 - 0.04 x10(3)/mcL Scan, Peripheral Blood Result Value Ref Range Plat Estimate Decreased RBC Morphology Abnormal Macrocytes 1-5 /HPF Microcytes 1-5 /HPF Hypochromia Moderate Toxic Granulation Present Hemogram Result Value Ref Range WBC 6.4 4.0 - 9.5 x10(3)/mcL RBC 2.00 (L) 4.58 - 5.54 x10(6)/mcL Hemoglobin 6.3 (L) 13.7 - 16.5 gm/dL Hematocrit 19.0 (L) 40.5 - 48.5 % MCV 95.0 (H) 82.9 - 93.1 fL MCH 31.5 27.5 - 32.1 pg MCHC 33.2 32.0 - 35.7 gm/dL Platelets 94 (L) 145 - 357 x10(3)/mcL RDWSD 51.5 (H) 36.0 - 45.0 fL RDWCV 14.7 (H) 11.4 - 13.8 % MPV 11.9 7.6 - 12.9 fL nRBC % Auto 0.0 % nRBC Abs Auto 0.000 0.000 - 0.000 x10(3)/mcL Prepare RBC Result Value Ref Range Dispensed? Yes Recent Labs 02/15/20 0545 02/15/20 0420 02/14/20 0150 02/13/20 1750 02/13/20 0705 WBC 6.4 6.5 11.6* 9.9* 4.9 HGB 6.3* 6.5* 8.0* 8.5* 15.2 HCT 19.0* 19.4* 23.5* 24.9* 45.6 PLATELET 94* 99* 67* 73* 87* Recent Labs 02/15/20 0420 02/14/20 0150 02/13/20 1750 02/13/20 0705 NA 137 138 138 135 K 3.8 5.0 4.9 4.0 CL 107 106 106 99 CO2 23 22 20* 20* BUN 26* 31* 32* 43* CREATININE 1.13 1.21 1.11 1.26 GLUCOSE 104 142 189 131 CALCIUM 7.0* 7.3* 6.9* 9.0 MAGNESIUM -- -- -- 0.79 PHOS -- -- -- 3.2 Imaging: Vascular Labs: ABIs 02/14/20: Findings: ?? Right ?Pressure (mm Hg) ?? KAMAR ??Waveform ? Common Femoral Artery ?Monophasic ?? Popliteal Artery ? Monophasic ?? Dorsalis Pedis (Ankle) Artery ?31 ?0.36 ??Monophasic ?? Posterior Tibial (Ankle) Artery ??26 ?0.30 ??Monophasic ? Left ? Pressure (mm Hg) ?? KAMAR ??Waveform ? Brachial Artery ?86 ? Common Femoral Artery ?[place]- Biphasic ?? Popliteal Artery ? [place] ?? Dorsalis Pedis (Ankle) Artery ?61 ?0.71 ??[place] Biphasic ?? Posterior Tibial (Ankle) Artery ??73 ?0.85 ??[place]has[place] ? Interpretation: ?? RIGHT: Moderately severe lower extremity arterial occlusive disease. Findings are consistent with aortoiliac disease. ?? LEFT: Mild lower extremity arterial occlusive disease. Findings are consistent with aortoiliac disease. ?? Comment: The RIGHT brachial pressure was not obtained due to right arm IV's. Vascular Surgery Recommendation 02/14/20: ??- No vascular intervention indicated at this time - Continue ASA, statin - Will plan to have patient follow up in vascular surgery clinic as an outpatient with a CTA of hisabdomen and pelvis with bilateral lower extremity runoff. At that time, will assess and discuss revascularization options with the patient ASSESSMENT: Wally Aguilar is a 69 y.o. male POD2 s/p cystoprostatectomy with ileal conduit for MIBC who is overall following the expected post-operative course. He has been HDS and afebrile overnight. Worsening acute anemia with hbg downtreading from 8.0 to 6.5 this morning which was repeated and found to be 6.3. Will transfuse 2 units of pRBCs and trend H/H. 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 ABIs performed yesterday which confirmed aortoiliac disease R>L. Vascular surgery recs per above. Will consult BIT for assistance with post-op coping/mental health support. He has an Epidural in place per APS. Will workto advance mobility with PT/OT, ensure CLD is tolerated and continue to monitor. Goals for today: OOB/PT/OT BIT consult today PLAN: Neuro: pain control: Epidural, tylenol, tramadol, Alvimopan, Card: HDS, Monitor vital signs Pulm: albuterol, ambulation, ISC, cough, deep breathing FEN: mIVF @100ml/hr, replete lytes prn, strict I/O's GI: bowel meds prn, Regular diet, zofran, Renal/: monitor urine output Heme: no active issues ID: perioperative ceftriaxone, flagyl completed, no active issues Endo: no active issues Home Meds: atorvastatin, metoprolol PPx: SQH, SCDs, ambulation, ISC, cough, deep breathing Dispo: Stable, Attempt Cardiopulmonary Resuscitation - Inpatient La Jean-Baptiste MD 02/15/2020 Pgr. [phone] * Nima Bhatia MD - 02/14/2020 9:29 AM EDT Acute Pain Service - Epidural Daily Management VITAL SIGNS: Visit Vitals BP 106/74 (BP Location (NBP): Left arm, Patient Position: Lying) Pulse (!) 101 Temp 36.9 ??C (98.4 ??F) (Oral) Resp 16 Wt 54.8 kg (120 lb 13 oz) SpO2 97% BMI 19.77 kg/m?? Body mass index is 19.77 kg/m??. Labs: WBC Date Value Ref Range Status 02/14/2020 11.6 (H) 4.0 - 9.5 x10(3)/mcL Final Hemoglobin Date Value Ref Range Status 02/14/2020 8.0 (L) 13.7 - 16.5 gm/dL Final Hematocrit Date Value Ref Range Status 02/14/2020 23.5 (L) 40.5 - 48.5 % Final Platelets Date Value Ref Range Status 02/14/2020 67 (L) 145 - 357 x10(3)/mcL Final Operative Procedures: Procedure(s): @CYSTECTOMY, COMPLETE, WITH ILEAL CONDUIT (WRVU 36.33) @LYMPHADENECTOMY, PELVIC, INCLUDING MULTIPLE NODES-FELA (WRVU 14.06) LIVER BIOPSY APS Opioid Administration Hx All administrations since 02/13/2020 are shown below each listed medication. Other Order Route Rate Dose Action Date traMADoL (Ultram) tablet 50 mg Oral 50 mg Given 02/13/2020 HYDROmorphone (DILAUDID) injection 0.2-0.4 mg Intravenous 0.4 mg Given 02/13/2020 Intravenous 0.4 mg Given 02/13/2020 fentaNYL 50 mcg/mL multi-dose injection Intravenous 100 mcg Given 02/13/2020 HYDROmorphone (Dilaudid) 10 mcg/mL, BUpivacaine (Marcaine) 0.1% (0.1 mg/mL) (1/10%) in sodium chloride 0.9% 250 mL epidural Epidural 6 mL/hr 6 mL/hr New Bag 02/13/2020 HYDROmorphone (DILAUDID) injection 0.2 mg Epidural 0.2 mg Given 02/13/2020 fentaNYL (PF) 50 mcg/mL injection Intravenous 50 mcg Given 02/13/2020 DH AN APS EPIDURAL ROUNDIN02/14/2020 9:29 AM Average Numeric Rating Pain Score (0-10):: 2 Post-Op Day:: 1 Epidural Day:: 2 Epidural Infusion (solution):: HYDROmorphone 10 mcg/mL and BUpivacaine 0.1% Epidural Infusion Rate (mL/hr): 6 PCEA Dose (mL): 3 Out of Bed: No Ambulation: No Able to Use Incentive Spirometry: Yes Escalation of Care: No Tolerating Regular Diet: No Epidural Catheter Removed (Intact unless noted in Comments): No Notes/Plan: Vinny is doing well, overall, this morning. His pain is well-controlled on his current epidural regimen and he has received 1 of 6 PCEA demand doses postoperatively. His only complaint is some right lower extremity pain, which he says has been a problem for quite some time. He will have an KAMAR at some point today to determine if the cause is related to some vascular disease. Vinny denies numbness, tingling, itching, or nausea. He is tolerating a clear liquid diet and did have a postop bowel movement. His epidural insertion site is free from signs of infection. Plan: We made no changes to his epidural regimen today and will plan to begin weaning as diet is advancedand patient has more pronounced return of bowel function. If patient's pain increases as he becomes more active, we would consider increasing his epidural rate to 8mL/hr and increasing his PCEA dose to 4mL q 20 minutes. INELSON RN, have performed the documentation for this encounter in the presence of andacting as a scribe for Dr. Nima Bhatia. APS Nurse: Nelson Chicas RN Resident:: Iain Gibson MD Attending Physician:: Nima Bhatia MD I performed the above scribed service and agree with the accuracy of the note. * La Jean-Baptiste MD - 02/14/2020 9:12 AM EDT Urology Inpatient Progress Note Patient Name: Wally Aguilar Patient Age: 69 y.o. Birthdate: 1950 Admit date: 02/13/2020 Attending Physician: Nima Armstrong MD ID: Wally Aguilar is a 69 y.o. male LOS: 1 day 1 Day Post-Op from a cystoprostatectomy with ileal conduit for MIBC. 24hr events: ?? Calcium 6.9 given IV calcium gluconate 1g x2 overnight ?? Reports chronic RLE pain, abd pain that is controlled with pain medicine/epidural ?? No other complaints this AM. ?? Pain is well controlled. ?? Tolerating CLD, no n/v. ?? + flatus/ - BM. ?? No cp/sob. O: Last value Range last 24hrs Temperature Temp: 36.9 ??C (98.4 ??F) Temp: [36.5 ??C (97.7 ??F)-37.1 ??C (98.8 ??F)] Heart Rate Heart Rate: (!) 101 Heart Rate: [100-119] Blood Pressure BP: 106/74 BP: (96-120)/(54-81) Respiratory Rate Resp: 16 Resp: [14-26] SpO2 SpO2: 97 % SpO2: [90 %-100 %] 02/12 0701 - 02/13 0700 In: 8727.4 [P.O.:300; I.V.:8349] Out: 3315 [Urine:680] DARYN drain: 965cc s/s Physical Exam: General: NAD, resting in bed, cooperative HEENT: normocephalic, anicteric sclerae CVS: regular rate Pulm: normal respirations, no use of accessory muscles, no stridor/audible wheezing Abd: soft, appropriately tender, non-distended. No guarding. Midline incision is c/d/i. : Urostomy PPV with light pink urine draining. Skin: warm, dry Ext: well perfused, no edema, RLE no palpable pulses. Neuro: Grossly intact, nonfocal Labs: Recent Results (from the past 72 hour(s)) Basic Metabolic Panel (non-fasting) Result Value Ref Range Glucose Lvl 131 65 - 199 mg/dL BUN 43 (H) 10 - 20 mg/dL Creatinine 1.26 0.80 - 1.50 mg/dL Sodium 135 135 - 145 mmol/L Potassium 4.0 3.5 - 5.0 mmol/L Chloride 99 98 - 107 mmol/L CO2 20 (L) 22 - 31 mmol/L Anion Gap 16 (H) 5 - 15 mmol/L Calcium 9.0 8.5 - 10.5 mg/dL eGFR 59 (L) >=60 mL/min/1.73 m?? eGFR 68 >=60 mL/min/1.73 m?? Magnesium Result Value Ref Range Magnesium 0.79 0.69 - 1.07 mmol/L Phosphorus Result Value Ref Range Phosphorus 3.2 2.5 - 4.5 mg/dL Hemogram Result Value Ref Range WBC 4.9 4.0 - 9.5 x10(3)/mcL RBC 4.79 4.58 - 5.54 x10(6)/mcL Hemoglobin 15.2 13.7 - 16.5 gm/dL Hematocrit 45.6 40.5 - 48.5 % MCV 95.2 (H) 82.9 - 93.1 fL MCH 31.7 27.5 - 32.1 pg MCHC 33.3 32.0 - 35.7 gm/dL Platelets 87 (L) 145 - 357 x10(3)/mcL RDWSD 50.9 (H) 36.0 - 45.0 fL RDWCV 14.4 (H) 11.4 - 13.8 % MPV 12.2 7.6 - 12.9 fL nRBC % Auto 0.0 % nRBC Abs Auto 0.000 0.000 - 0.000 x10(3)/mcL Differential, Automated Result Value Ref Range Neutrophils % 55.9 % Neutr Abs (ANC) 2.73 1.70 - 6.10 x10(3)/mcL Lymphocytes % 19.7 % Lymphocytes Abs 1.0 0.9 - 3.2 x10(3)/mcL Monocytes % 16.8 % Monocyte Abs 0.8 0.3 - 0.9 x10(3)/mcL Eosinophils % 6.4 % Eosinophils Abs 0.3 0.0 - 0.4 x10(3)/mcL Basophils % 1.0 % Basophils Abs 0.0 0.0 - 0.1 x10(3)/mcL Immature Gran % 0.20 % Ana Gran Abs 0.01 0.00 - 0.04 x10(3)/mcL Scan, Peripheral Blood Result Value Ref Range Plat Estimate Decreased RBC Morphology Normal BLOOD GAS 2 ARTERIAL Result Value Ref Range pH Art 7.34 (L) 7.35 - 7.45 pCO2 Art 38 35 - 45 mmHg pO2 Art 243 (H) 85 - 104 mmHg HCO3 Art 20.9 20.0 - 26.0 mmol/L BE Art -5.1 (L) -3.0 - 3.0 mmol/L Hgb Blood Gas 13.3 (L) 13.7 - 16.5 gm/dL O2HB Art 98.5 (H) 94.0 - 97.0 % COHB Art 0.7 % METHB Art 0.2 <=1.5 % Na Whole Blood 131 (L) 135 - 145 mmol/L K Whole Blood 4.2 3.5 - 5.0 mmol/L ICa Whole Blood 1.13 (L) 1.15 - 1.33 mmol/L CL Whole Blood 109 (H) 98 - 107 mmol/L Gluc Whole Bld 135 65 - 199 mg/dL Lactate WB 1.3 0.5 - 2.2 mmol/L FIO2 Art 60 % Flow Art 1.0 LPM PF Ratio Art 405 Temp Art 35.5 Cels[facility] Surgical Pathology Report Result Value Ref Range Surgical Pathology Report [id number] Location: OR; OR28; A The signing pathologist has (i) examined the relevant preparation(s) for the specimen(s) and (ii) rendered or confirmed the diagnosis(es). . Frozen Section FROZEN SECTION DIAGNOSIS CFS - Right distal ureter: Urothelial atypia; deeper levels were obtained. - [facility] 02/13/20 12:33 Electronically signed by: Trae Hoang MD Verified: 02/13/2020 Pathologist Performed at: -[facility] [place]ology, [place], [place] This intraoperative consultation should be interpreted as a preliminary diagnosis pending review of the entire specimen and special studies, if any. Frozen Section FROZEN SECTION DIAGNOSIS BFS - Left distal ureter: Urothelial atypia, cannot exclude dysplasia. - [facility] 02/13/20 11:43 Electronically signed by: Trae Hoang MD Verified: 10/2019 Pathologist Performed at: [facility] Dept. of Pathology, [place], [place] This intraoperative consultation should be interpreted as a preliminary diagnosis pending review of the entire specimen and special studies, if any. Frozen Section FROZEN SECTION DIAGNOSIS - AFS1 Liver mass: Calcified nodule, negative for cancer 02/13/20 11:07 Electronically signed by: Guero Faye MD Verified: 02/13/2020 Pathologist Performed at: -[facility] [place] Dept[facility] of [place]ology, [place], [place] This intraoperative consultation should be interpreted as a preliminary diagnosis pending review of the entire specimen and special studies, if any. BLOOD GAS 2 ARTERIAL Result Value Ref Range pH Art 7.25 (CRIT) 7.35 - 7.45 pCO2 Art 47 (H) 35 - 45 mmHg pO2 Art 216 (H) 85 - 104 mmHg HCO3 Art 20.0 20.0 - 26.0 mmol/L BE Art -7.3 (L) -3.0 - 3.0 mmol/L Hgb Blood Gas 10.1 (L) 13.7 - 16.5 gm/dL O2HB Art 98.4 (H) 94.0 - 97.0 % COHB Art 0.4 % METHB Art 0.3 <=1.5 % Na Whole Blood 128 (L) 135 - 145 mmol/L K Whole Blood 4.7 3.5 - 5.0 mmol/L ICa Whole Blood 1.11 (L) 1.15 - 1.33 mmol/L CL Whole Blood 108 (H) 98 - 107 mmol/L Gluc Whole Bld 138 65 - 199 mg/dL Lactate WB 2.2 0.5 - 2.2 mmol/L FIO2 Art 50 % PF Ratio Art 432 BLOOD GAS 2 ARTERIAL Result Value Ref Range pH Art 7.30 (L) 7.35 - 7.45 pCO2 Art 45 35 - 45 mmHg pO2 Art 212 (H) 85 - 104 mmHg HCO3 Art 21.9 20.0 - 26.0 mmol/L BE Art -4.5 (L) -3.0 - 3.0 mmol/L Hgb Blood Gas 9.0 (L) 13.7 - 16.5 gm/dL O2HB Art 98.2 (H) 94.0 - 97.0 % COHB Art 0.7 % METHB Art 0.3 <=1.5 % Na Whole Blood 129 (L) 135 - 145 mmol/L K Whole Blood 4.6 3.5 - 5.0 mmol/L ICa Whole Blood 1.09 (L) 1.15 - 1.33 mmol/L CL Whole Blood 109 (H) 98 - 107 mmol/L Gluc Whole Bld 155 65 - 199 mg/dL Lactate WB 1.6 0.5 - 2.2 mmol/L FIO2 Art 50 % Flow Art 2.0 LPM PF Ratio Art 424 Temp Art 37.0 Celsius BLOOD GAS 2 ARTERIAL Result Value Ref Range pH Art 7.36 7.35 - 7.45 pCO2 Art 44 35 - 45 mmHg pO2 Art 231 (H) 85 - 104 mmHg HCO3 Art 24.1 20.0 - 26.0 mmol/L BE Art -1.4 -3.0 - 3.0 mmol/L Hgb Blood Gas 8.6 (L) 13.7 - 16.5 gm/dL O2HB Art 98.5 (H) 94.0 - 97.0 % COHB Art 0.6 % METHB Art 0.1 <=1.5 % Na Whole Blood 128 (L) 135 - 145 mmol/L K Whole Blood 4.7 3.5 - 5.0 mmol/L ICa Whole Blood 1.02 (L) 1.15 - 1.33 mmol/L CL Whole Blood 109 (H) 98 - 107 mmol/L Gluc Whole Bld 169 65 - 199 mg/dL Lactate WB 1.7 0.5 - 2.2 mmol/L BLOOD GAS 2 ARTERIAL Result Value Ref Range pH Art 7.37 7.35 - 7.45 pCO2 Art 39 35 - 45 mmHg pO2 Art 227 (H) 85 - 104 mmHg HCO3 Art 22.2 20.0 - 26.0 mmol/L BE Art -3.0 -3.0 - 3.0 mmol/L Hgb Blood Gas 8.4 (L) 13.7 - 16.5 gm/dL O2HB Art 97.9 (H) 94.0 - 97.0 % COHB Art 0.9 % METHB Art 0.3 <=1.5 % Na Whole Blood 128 (L) 135 - 145 mmol/L K Whole Blood 4.5 3.5 - 5.0 mmol/L ICa Whole Blood 1.07 (L) 1.15 - 1.33 mmol/L CL Whole Blood 109 (H) 98 - 107 mmol/L Gluc Whole Bld 172 65 - 199 mg/dL Lactate WB 1.7 0.5 - 2.2 mmol/L Basic Metabolic Panel (non-fasting) Result Value Ref Range Glucose Lvl 189 65 - 199 mg/dL BUN 32 (H) 10 - 20 mg/dL Creatinine 1.11 0.80 - 1.50 mg/dL Sodium 138 135 - 145 mmol/L Potassium 4.9 3.5 - 5.0 mmol/L Chloride 106 98 - 107 mmol/L CO2 20 (L) 22 - 31 mmol/L Anion Gap 12 5 - 15 mmol/L Calcium 6.9 (CRIT) 8.5 - 10.5 mg/dL eGFR 68 >=60 mL/min/1.73 m?? eGFR 79 >=60 mL/min/1.73 m?? Hemogram Result Value Ref Range WBC 9.9 (H) 4.0 - 9.5 x10(3)/mcL RBC 2.60 (L) 4.58 - 5.54 x10(6)/mcL Hemoglobin 8.5 (L) 13.7 - 16.5 gm/dL Hematocrit 24.9 (L) 40.5 - 48.5 % MCV 95.8 (H) 82.9 - 93.1 fL MCH 32.7 (H) 27.5 - 32.1 pg MCHC 34.1 32.0 - 35.7 gm/dL Platelets 73 (L) 145 - 357 x10(3)/mcL RDWSD 51.5 (H) 36.0 - 45.0 fL RDWCV 14.6 (H) 11.4 - 13.8 % MPV 12.0 7.6 - 12.9 fL nRBC % Auto 0.0 % nRBC Abs Auto 0.000 0.000 - 0.000 x10(3)/mcL Differential, Automated Result Value Ref Range Neutrophils % 83.9 % Neutr Abs (ANC) 8.30 (H) 1.70 - 6.10 x10(3)/mcL Lymphocytes % 4.8 % Lymphocytes Abs 0.5 (L) 0.9 - 3.2 x10(3)/mcL Monocytes % 10.5 % Monocyte Abs 1.0 (H) 0.3 - 0.9 x10(3)/mcL Eosinophils % 0.0 % Eosinophils Abs 0.0 0.0 - 0.4 x10(3)/mcL Basophils % 0.3 % Basophils Abs 0.0 0.0 - 0.1 x10(3)/mcL Immature Gran % 0.50 % Ana Gran Abs 0.05 (H) 0.00 - 0.04 x10(3)/mcL Basic Metabolic Panel (non-fasting) Result Value Ref Range Glucose Lvl 142 65 - 199 mg/dL BUN 31 (H) 10 - 20 mg/dL Creatinine 1.21 0.80 - 1.50 mg/dL Sodium 138 135 - 145 mmol/L Potassium 5.0 3.5 - 5.0 mmol/L Chloride 106 98 - 107 mmol/L CO2 22 22 - 31 mmol/L Anion Gap 10 5 - 15 mmol/L Calcium 7.3 (L) 8.5 - 10.5 mg/dL eGFR 62 >=60 mL/min/1.73 m?? eGFR 71 >=60 mL/min/1.73 m?? Hemogram Result Value Ref Range WBC 11.6 (H) 4.0 - 9.5 x10(3)/mcL RBC 2.47 (L) 4.58 - 5.54 x10(6)/mcL Hemoglobin 8.0 (L) 13.7 - 16.5 gm/dL Hematocrit 23.5 (L) 40.5 - 48.5 % MCV 95.1 (H) 82.9 - 93.1 fL MCH 32.4 (H) 27.5 - 32.1 pg MCHC 34.0 32.0 - 35.7 gm/dL Platelets 67 (L) 145 - 357 x10(3)/mcL RDWSD 51.4 (H) 36.0 - 45.0 fL RDWCV 14.6 (H) 11.4 - 13.8 % MPV 12.0 7.6 - 12.9 fL nRBC % Auto 0.0 % nRBC Abs Auto 0.000 0.000 - 0.000 x10(3)/mcL Differential, Automated Result Value Ref Range Neutrophils % 82.8 % Neutr Abs (ANC) 9.59 (H) 1.70 - 6.10 x10(3)/mcL Lymphocytes % 7.3 % Lymphocytes Abs 0.8 (L) 0.9 - 3.2 x10(3)/mcL Monocytes % 9.4 % Monocyte Abs 1.1 (H) 0.3 - 0.9 x10(3)/mcL Eosinophils % 0.0 % Eosinophils Abs 0.0 0.0 - 0.4 x10(3)/mcL Basophils % 0.2 % Basophils Abs 0.0 0.0 - 0.1 x10(3)/mcL Immature Gran % 0.30 % Ana Gran Abs 0.04 0.00 - 0.04 x10(3)/mcL Albumin Level Result Value Ref Range Albumin 2.2 (L) 3.2 - 5.2 gm/dL Recent Labs 02/14/20 0150 02/13/20 1750 02/13/20 0705 WBC 11.6* 9.9* 4.9 HGB 8.0* 8.5* 15.2 HCT 23.5* 24.9* 45.6 PLATELET 67* 73* 87* Recent Labs 02/14/20 0150 02/13/20 1750 02/13/20 0705 NA 138 138 135 K 5.0 4.9 4.0 CL 106 106 99 CO2 22 20* 20* BUN 31* 32* 43* CREATININE 1.21 1.11 1.26 GLUCOSE 142 189 131 CALCIUM 7.3* 6.9* 9.0 MAGNESIUM -- -- 0.79 PHOS -- -- 3.2 Imaging: ABIs: pending ASSESSMENT: Wally Aguilar is a 69 y.o. male POD1 s/p cystoprostatectomy with ileal conduit for MIBC who is following the expected post-operative course. He has been HDS and afebrile overnight. Therewas concern intra-operatively for narrow/small Right external iliac artery, vascular surgery was consulted intra- op as well as this morning. They will follow up and provide recs. He has an Epidural in place per APS. Will work to advance mobility with PT/OT, ensure CLD is tolerated and continue to monitor. Goals for today: OOB/PT/OT F/u ABIs & vascular surgery recs PLAN: Neuro: pain control: Epidural, tylenol, tramadol Card: HDS, Monitor vital signs Pulm: albuterol, ambulation, ISC, cough, deep breathing FEN: mIVF @100ml/hr, replete lytes prn, strict I/O's GI: bowel meds prn, Clear Liquid, zofran, Renal/: monitor urine output Heme: no active issues ID: perioperative ceftriaxone, flagyl completed, no active issues Endo: no active issues Home Meds: Alvimopan, atorvastatin, metoprolol PPx: SQH, SCDs, ambulation, ISC, cough, deep breathing Dispo: Stable, Attempt Cardiopulmonary Resuscitation - Inpatient La Jean-Baptiste MD 02/14/2020 Pgr. [id number] * Oscar, Froilan Barton MD - 02/13/2020 10:35 PM EDT UROLOGY POST-OP NOTE Wally Aguilar is a 69 y.o. male s/p cystoprostatectomy w/ ileal conduit Subjective Pain well-controlled. Denies nausea/vomiting, chest pain, SOB. Objective Temp: [36.8 ??C (98.2 ??F)-37.1 ??C (98.8 ??F)] Heart Rate: [100-119] Resp: [14-26] BP: (96-120)/(57-81) SpO2: [90 %-100 %] Heart Rate from SpO2: [100 bpm-112 bpm] I/O this shift: In: 500 [I.V.:500] Out: 305 [Urine:70; Other:235] Physical Exam GEN: NAD. Resting comfortably. CV: RRR, normal S1 S2 sounds. CHEST: CTAB. ABD: Soft, nontender to light palpation, non-distended. EXTR: Moving spontaneously, warm. SCDs in place. Assessment/Plan Wally Aguilar is a 69 y.o. male s/p cystoprostatectomy w/ ileal conduit. Stable post-op. - Pain well-controlled on current regimen. - Hemodynamically stable. - UOP adequate, continue to monitor. - SCDs in place. - Continue post-op plan per primary team. * Rehan Boles RN - 02/13/2020 8:30 PM EDT 190- Received report from Patricia LAURA, Pt awake follows commands, ABD dressing dry intact, Urostomy WDL, DARYN in place, epidural@6cc/hr, Pt able to move all extremities, Pt C/O right leg pain Foot warm,DP+1, PT signal weak service aware will monitor. 2099- Pt awake alert VSS, Epidural@6, ABD dressing unchanged, Tramadol given for Lower extremity pain, service aware, PACU criteria met * Rehan Boles RN - 02/13/2020 7:00 PM EDT Arrived from OR in bed. Attached to monitors and alarms set appropriately for patient. Midline abdominal dressing CDI with DARYN drain in place. Urostomy draining tea colored urine. 1800: DARYN drain having large output. Urology resident camilo stokes MD its mostly irrigant 1829: Hemoglobin came back at 8.5 and critical Ca at 6.9, pager [phone] made aware 190: patient reporting right leg pain, pager [phone] made aware 1909: Oscar at bedside for post op check, no new orders 1912: report given to KEYA Raza documented in this encounter H&P Notes * Yassine Silva - 03/06/2020 8:05 AM EDT Gastroenterology and Hepatology Pre-Procedure History and Physical Exam Procedure: EGD: Indication: Nausea, vomiting and weight loss Patient Active Problem List Diagnosis Code ??? Malignant neoplasm of overlapping sites of bladder C67.8 ??? 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 Ostomy nurse consultation Z71.89 ??? HTN (hypertension) I10 ??? PVD (peripheral vascular disease) I73.9 ??? Alcohol abuse F10.10 ??? Smokes 2 packs of cigarettes per day F17.210 ??? HLD (hyperlipidemia) E78.5 ??? COPD, moderate J44.9 ??? Weight loss, abnormal R63.4 ??? Limited literacy Z55.0 ??? Port-A-Cath in place Z95.828 ??? Bladder cancer C67.9 ??? Tobacco use disorder F17.200 ??? Severe protein-calorie malnutrition E43 EXAM: HEENT: Airway examined, oropharynx clear Mallampati Score: II (soft palate, uvula, fauces visible) LUNGS: Clear to auscultation HEART: Regular rate and rhythm, normal S1, S2 ABDOMEN: Normal bowel sounds, soft, non tender, non distended A/P Proceed with the planned endoscopic procedure. ASA 3 - Patient with moderate systemic disease with functional limitations Sedation Plan: anesthesia Risks and benefits of the procedure explained to the patient. Consent signed. Please see separate consult note for further details. * Roberto Bradshaw DO - 02/28/2020 9:58 AM EDT INTERVENTIONAL RADIOLOGY FOCUSED H&P: Procedure: Planned procedure: Percutaneous GT placement The patient's history and physical exam have been reviewed and completed. There has been no interval change from that of the pre-operative history and physical exam done within the last 30 days. Physical Exam: No distress. Alert. Responds appropriately to questions. Unlabored breathing on room air. Regular rate and rhythm. The planned procedure (and sedation plan if appropriate) , its benefits and risks, and alternativeswere discussed with the patient. The patient consented to the procedure. PRE-SEDATION ASSESSMENT: Sedation Plan: moderate (conscious sedation) ASA: 2: Patient with mild systemic disease Mallampati: I: soft palate, fauces, tonsillar pillars and uvula can be seen Confirm NPO status: Yes History of anesthetic complications: No Current medications reviewed: Yes Allergies reviewed: Yes Source Note - Melissa Barba APRN - 02/27/2020 3:56 PM EDT Images from the original note were not included. INTERVENTIONAL RADIOLOGY FOCUSED H&P and PRE-PROCEDURE NOTE: PCP: Subhash Dowling MD Referring Provider: BLANCA Planned Procedure: Planned procedure: Percutaneous GT placement GT Order Questions Answers Is the patient on anticoagulant / anitplatelet therapy ? Low Molecular Weight Heparin Reason for exam and clinical history: Patient needs nutritional support after cystectomy, poor appetite. Exam/Procedure requested: G tube placement. Is the patient taking any anticoagulants and/or antiplatelet meds? Yes Is patient awake, alert, and consentable? Yes Does patient need assist to stand? Yes Does Patient have any mobility limitations (e.g. spinal precautions) No Does patient require constant supervision? No Is patient over 450 lbs (200 kg) No Does patient have a pacemaker? No Does patient have a Chest Tube? No Is there a language / communication barrier? No Presenting Diagnosis/ Complaint: Wally Aguilar is a 69 y.o. male 14 Days Post- Op cystoprostatectomy with ileal conduit for MIBC, whose postoperative course has been c/b poor oral intake and infectious diarrhea ( + cryptosporidium screen and campylobacter antigen, and negative for C.diff, giardia, shiga toxin, and stool culture). Etiology unclear, but believed to have started prior to his hospitalization. Dr. Armstrong is recommending GT for malnutrition. ?? Past Medical/Surgical History: Patient Active Problem List Diagnosis Code ??? Malignant neoplasm of overlapping sites of bladder C67.8 ??? 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 Ostomy nurse consultation Z71.89 ??? HTN (hypertension) I10 ??? PVD (peripheral vascular disease) I73.9 ??? Alcohol abuse F10.10 ??? Smokes 2 packs of cigarettes per day F17.210 ??? HLD (hyperlipidemia) E78.5 ??? COPD, moderate J44.9 ??? Weight loss, abnormal R63.4 ??? Limited literacy Z55.0 ??? Port-A-Cath in place Z95.828 ??? Bladder cancer C67.9 ??? Tobacco use disorder F17.200 ??? Severe protein-calorie malnutrition E43 Past Medical History: Diagnosis Date ??? Asthma ??? Cancer kidney ??? Chronic pain right calf paiins him since his hip surgery ??? COPD (chronic obstructive pulmonary disease) pt has asthma but states he does not have copd or emphysema ??? Delayed emergence from anesthesia ??? GERD (gastroesophageal reflux disease) ??? Hypertension ??? Intraoperative complication during his only surgery (hip from a fall off a doroteo) in 1990 in [place] he woke up during the procedure ??? PAD (peripheral artery disease) ??? Peptic ulcer disease ??? Seizure last seizure was 20 years ago ~ suffered from epilepsy but does not seem to be an issue anymore ??? Status post chemotherapy just had 8 weeks pf treatments 3 weeks ago ??? Transfusion history does not know ??? Urolithiasis ??? Vertigo balance problems only from the left leg being longer than the right leg from his hip surgery Past Surgical History: Procedure Laterality Date ??? AORTO-ILIAC BYPASS GRAFT endarterectomy ??? CT GUIDED BIOPSY LYMPH NODE(CHEST/ABD/PELVIS) 01/31/2020 CT Guided Biopsy Lymph Node (Chest/Abd/Pelvis) 01/31/2020 [facility] RAD CAT SCAN ??? HIP FRACTURE SURGERY Right 1991 ??? INGUINAL HERNIA REPAIR Right ??? IR MEDIPORT PLACEMENT/EXCHANGE 11/27/2019 IR Mediport Placement 11/27/2019 Jason Lujan, PA [facility] INTERVENTIONL RAD ??? PRO CYSTECTOMY, ILEAL CONDUIT/SIGMOID BLADDER N/A 02/13/2020 @CYSTECTOMY, COMPLETE, WITH ILEAL CONDUIT (WRVU 36.33) performed by Nima Armstrong MD at [facility] LYNETTE ??? PRO NEEDLE BIOPSY LIVER N/A 02/13/2020 LIVER BIOPSY performed by Nima Armstrong MD at [facility] MAIN OR ??? PRO REMOVE PELVIS LYMPH NODES Bilateral 02/13/2020 @LYMPHADENECTOMY, PELVIC, INCLUDING MULTIPLE NODES-FELA (WRVU 14.06) performed by Nima Armstrong MDat [facility] MAIN OR Medications: Scheduled Meds: ??? azithromycin 500 mg Oral Daily ??? dronabinoL 2.5 mg Oral BID ??? nitazoxanide 500 mg Oral Q12H CARLOS ??? pantoprazole EC 40 mg Oral BID ??? miconazole nitrate Topical (Top) BID ??? lidocaine 3 patch Transdermal Q24H And ??? lidocaine 1 patch Transdermal Q24H ??? enoxaparin 40 mg Subcutaneous Q24H CARLOS ??? aspirin 81 mg Oral Daily ??? albuteroL 2 puff Inhalation 4 Times Daily ??? atorvastatin 20 mg Oral Daily ??? metoprolol succinate XL 25 mg Oral Daily ??? sodium chloride 0.9 % (flush) 5 mL Intravenous BID ??? varenicline 1 mg Oral BID Continuous Infusions: ??? TPN Adult PRN Meds:.acetaminophen, phenol 1.4%, calcium carbonate, prochlorperazine, sodium chloride 0.9 % (flush), lidocaine, traMADoL Allergies: Wellbutrin [bupropion hcl] Social History and Habits: Social History Socioeconomic History ??? Marital status: Single Spouse name: Not on file ??? Number of children: Not on file ??? Years of education: Not on file ??? Highest education level: Not on file Occupational History ??? Not on file Social Needs ??? Financial resource strain: Not on file ??? Food insecurity Worry: Not on file Inability: Not on file ??? Transportation needs Medical: Not on file Non-medical: Not on file Tobacco Use ??? Smoking status: Current Every Day Smoker Packs/day: 2.00 Years: 50.00 Pack years: 100.00 ??? Smokeless tobacco: Never Used Substance and Sexual Activity ??? Alcohol use: Yes Alcohol/week: 14.0 standard drinks Types: 14 Standard drinks or equivalent per week Comment: 2 ??? Drug use: Not Currently ??? Sexual activity: Not Currently Lifestyle ??? Physical activity Days per week: Not on file Minutes per session: Not on file ??? Stress: Not on file Relationships ??? Social connections Talks on phone: Not on file Gets together: Not on file Attends orthodoxy service: Not on file Active member of club or organization: Not on file Attends meetings of clubs or organizations: Not on file Relationship status: Not on file ??? Intimate partner violence Fear of current or ex partner: Not on file Emotionally abused: Not on file Physically abused: Not on file Forced sexual activity: Not on file Other Topics Concern ??? Not on file Social History Narrative 100 pack year smoker and continues to smoke 1/2-1 ppd. Ongoing moderately heavy alcohol use 2 drinks a night. No drug use. He grew up in [facility] and finished 11th grade. 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 He is and has 3 children, 2 live in [place] and one daughter in the [employer] in [facility]; he has limited contact with them. His brother David age 66 [address] but has significant health challenges as well. He has a [employer] test case developer, Ketty Ricketts who is also his landlord and is instrumental in helping him manage his affairs. Significant Family History: No family history on file. Pertinent ROS: as per HPI Labs: Lab Results Component Value Date WBC 8.0 02/24/2020 HCT 29.0 (L) 02/24/2020 PLATELET 103 (L) 02/24/2020 INR 1.1 02/19/2020 BUN 39 (H) 02/25/2020 CREATININE 0.75 (L) 02/25/2020 ALKPHOS 100 02/20/2020 AST 32 02/20/2020 ALBUMIN 2.2 (L) 02/20/2020 BILIDIR 0.1 02/20/2020 BILITOT 0.2 02/20/2020 ALT 39 02/20/2020 PROT 3.8 (L) 02/20/2020 K 4.7 02/25/2020 Imagin01/2020 PET SCAN FEBRUARY-2019 Assessment: 69 y.o. 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 No C. Diff). Dr. Armstrong is recommending GT for malnutrition. ?? Plan: Plan Planned procedure: Percutaneous GT placement Labs to be performed day of procedure: No labs Sedation: Moderate (Conscious sedation) Prophylactic antibiotic : Ancef Contrast: Omnipaque Additional medications for procedure: Lidocaine Medications to discontinue (and days held): Lovenox (12 hours) Planned access site: epigastric Position: Supine Cytopathology presence needed: No Consent: Pending 02/27/2020 * Melissa Barba APRN - 02/27/2020 3:56 PM EDT Images from the original note were not included. INTERVENTIONAL RADIOLOGY FOCUSED H&P and PRE-PROCEDURE NOTE: PCP: Subhash Dowling MD Referring Provider: BLANCA Planned Procedure: Planned procedure: Percutaneous GT placement GT Order Questions Answers Is the patient on anticoagulant / anitplatelet therapy ? Low Molecular Weight Heparin Reason for exam and clinical history: Patient needs nutritional support after cystectomy, poor appetite. Exam/Procedure requested: G tube placement. Is the patient taking any anticoagulants and/or antiplatelet meds? Yes Is patient awake, alert, and consentable? Yes Does patient need assist to stand? Yes Does Patient have any mobility limitations (e.g. spinal precautions) No Does patient require constant supervision? No Is patient over 450 lbs (200 kg) No Does patient have a pacemaker? No Does patient have a Chest Tube? No Is there a language / communication barrier? No Presenting Diagnosis/ Complaint: Wally Aguilar is a 69 y.o. male 14 Days Post- Op cystoprostatectomy with ileal conduit for MIBC, whose postoperative course has been c/b poor oral intake and infectious diarrhea ( + cryptosporidium screen and campylobacter antigen, and negative for C.diff, giardia, shiga toxin, and stool culture). Etiology unclear, but believed to have started prior to his hospitalization. Dr. Armstrong is recommending GT for malnutrition. ?? Past Medical/Surgical History: Patient Active Problem List Diagnosis Code ??? Malignant neoplasm of overlapping sites of bladder C67.8 ??? 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 Ostomy nurse consultation Z71.89 ??? HTN (hypertension) I10 ??? PVD (peripheral vascular disease) I73.9 ??? Alcohol abuse F10.10 ??? Smokes 2 packs of cigarettes per day F17.210 ??? HLD (hyperlipidemia) E78.5 ??? COPD, moderate J44.9 ??? Weight loss, abnormal R63.4 ??? Limited literacy Z55.0 ??? Port-A-Cath in place Z95.828 ??? Bladder cancer C67.9 ??? Tobacco use disorder F17.200 ??? Severe protein-calorie malnutrition E43 Past Medical History: Diagnosis Date ??? Asthma ??? Cancer kidney ??? Chronic pain right calf paiins him since his hip surgery ??? COPD (chronic obstructive pulmonary disease) pt has asthma but states he does not have copd or emphysema ??? Delayed emergence from anesthesia ??? GERD (gastroesophageal reflux disease) ??? Hypertension ??? Intraoperative complication during his only surgery (hip from a fall off a doroteo) in 1990 in [place], vt he woke up during the procedure ??? PAD (peripheral artery disease) ??? Peptic ulcer disease ??? Seizure last seizure was 20 years ago ~ suffered from epilepsy but does not seem to be an issue anymore ??? Status post chemotherapy just had 8 weeks pf treatments 3 weeks ago ??? Transfusion history does not know ??? Urolithiasis ??? Vertigo balance problems only from the left leg being longer than the right leg from his hip surgery Past Surgical History: Procedure Laterality Date ??? AORTO-ILIAC BYPASS GRAFT endarterectomy ??? CT GUIDED BIOPSY LYMPH NODE(CHEST/ABD/PELVIS) 01/31/2020 CT Guided Biopsy Lymph Node (Chest/Abd/Pelvis) 01/31/2020 [facility] RAD CAT SCAN ??? HIP FRACTURE SURGERY Right 1991 ??? INGUINAL HERNIA REPAIR Right ??? IR MEDIPORT PLACEMENT/EXCHANGE 11/27/2019 IR Mediport Placement 11/27/2019 Jason Lujan PA [facility] INTERVENTIONL RAD ??? PRO CYSTECTOMY, ILEAL CONDUIT/SIGMOID BLADDER N/A 02/13/2020 @CYSTECTOMY, COMPLETE, WITH ILEAL CONDUIT (WRVU 36.33) performed by Nima Armstrong MD at [facility] LYNETTE ??? PRO NEEDLE BIOPSY LIVER N/A 02/13/2020 LIVER BIOPSY performed by Nima Armstrong MD at [facility] MAIN OR ??? PRO REMOVE PELVIS LYMPH NODES Bilateral 02/13/2020 @LYMPHADENECTOMY, PELVIC, INCLUDING MULTIPLE NODES-FELA (WRVU 14.06) performed by Nima Armstrong MDat [facility] MAIN OR Medications: Scheduled Meds: ??? azithromycin 500 mg Oral Daily ??? dronabinoL 2.5 mg Oral BID ??? nitazoxanide 500 mg Oral Q12H CARLOS ??? pantoprazole EC 40 mg Oral BID ??? miconazole nitrate Topical (Top) BID ??? lidocaine 3 patch Transdermal Q24H And ??? lidocaine 1 patch Transdermal Q24H ??? enoxaparin 40 mg Subcutaneous Q24H CARLOS ??? aspirin 81 mg Oral Daily ??? albuteroL 2 puff Inhalation 4 Times Daily ??? atorvastatin 20 mg Oral Daily ??? metoprolol succinate XL 25 mg Oral Daily ??? sodium chloride 0.9 % (flush) 5 mL Intravenous BID ??? varenicline 1 mg Oral BID Continuous Infusions: ??? TPN Adult PRN Meds:.acetaminophen, phenol 1.4%, calcium carbonate, prochlorperazine, sodium chloride 0.9 % (flush), lidocaine, traMADoL Allergies: Wellbutrin [bupropion hcl] Social History and Habits: Social History Socioeconomic History ??? Marital status: Single Spouse name: Not on file ??? Number of children: Not on file ??? Years of education: Not on file ??? Highest education level: Not on file Occupational History ??? Not on file Social Needs ??? Financial resource strain: Not on file ??? Food insecurity Worry: Not on file Inability: Not on file ??? Transportation needs Medical: Not on file Non-medical: Not on file Tobacco Use ??? Smoking status: Current Every Day Smoker Packs/day: 2.00 Years: 50.00 Pack years: 100.00 ??? Smokeless tobacco: Never Used Substance and Sexual Activity ??? Alcohol use: Yes Alcohol/week: 14.0 standard drinks Types: 14 Standard drinks or equivalent per week Comment: 2 ??? Drug use: Not Currently ??? Sexual activity: Not Currently Lifestyle ??? Physical activity Days per week: Not on file Minutes per session: Not on file ??? Stress: Not on file Relationships ??? Social connections Talks on phone: Not on file Gets together: Not on file Attends orthodoxy service: Not on file Active member of club or organization: Not on file Attends meetings of clubs or organizations: Not on file Relationship status: Not on file ??? Intimate partner violence Fear of current or ex partner: Not on file Emotionally abused: Not on file Physically abused: Not on file Forced sexual activity: Not on file Other Topics Concern ??? Not on file Social History Narrative 100 pack year smoker and continues to smoke 1/2-1 ppd. Ongoing moderately heavy alcohol use 2 drinks a night. No drug use. He grew up in [facility] and finished 11th grade. 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 He is and has 3 children, 2 live in [place] and one daughter in the [employer] in [facility]; he has limited contact with them. His brother David age 66 [address] but has significant health challenges as well. He has a [employer] test case developer, Ketty Ricketts who is also his landlord and is instrumental in helping him manage his affairs. Significant Family History: No family history on file. Pertinent ROS: as per HPI Labs: Lab Results Component Value Date WBC 8.0 02/24/2020 HCT 29.0 (L) 02/24/2020 PLATELET 103 (L) 02/24/2020 INR 1.1 02/19/2020 BUN 39 (H) 02/25/2020 CREATININE 0.75 (L) 02/25/2020 ALKPHOS 100 02/20/2020 AST 32 02/20/2020 ALBUMIN 2.2 (L) 02/20/2020 BILIDIR 0.1 02/20/2020 BILITOT 0.2 02/20/2020 ALT 39 02/20/2020 PROT 3.8 (L) 02/20/2020 K 4.7 02/25/2020 Imagin01/2020 PET SCAN FEBRUARY-2019 Assessment: 69 y.o. 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 No C. Diff). Dr. Armstrong is recommending GT for malnutrition. ?? Plan: Plan Planned procedure: Percutaneous GT placement Labs to be performed day of procedure: No labs Sedation: Moderate (Conscious sedation) Prophylactic antibiotic : Ancef Contrast: Omnipaque Additional medications for procedure: Lidocaine Medications to discontinue (and days held): Lovenox (12 hours) Planned access site: epigastric Position: Supine Cytopathology presence needed: No Consent: Pending 02/27/2020 * Nima Armstrong MD - 02/13/2020 7:17 AM EDT Patient Name: Wally Aguilar Patient Age: 69 y.o. Birthdate: 1950 Admit date: 02/13/2020 Attending Physician: Nima Armstrong MD Changes since I last saw the patient. He has had nausea, vomiting some weight loss. No abdominal pain. Voiding symptoms relatively mild 01/31/2020 Bone scan for elevated Alk Phos: Negative 01/31/2020 Biopsy of para aortic nodes negative Looks thin but in no acute distress No adenoapthy HEENT normal CVS HS I &II normal nil added Chest clear to P&A Abdomen Benign, no masses, no organomegaly External genitalia normal Impression: [id number] Urothelial cancer sp ddMVAC with response in the pelvis and new para aortic adenopathy. Biopsy Negative Plan Radical cystoprostatectomy + Ileal Conduit. Patient understands we may back out if we find more extensive disease. He has challenging social circumstances and does not have a living will Nearest relative is brother David who he says can speak to address medical issues if he cannot. Wehad a discussion this morning about his desires for care in general. He would be willing to have a period of ICU care in intubation only if there was a significant potential of recovery to his baseline All questions answered. * Enrrique Patten MD - 02/13/2020 7:10 AM EDT Patient Name: Wally Aguilar Patient Age: 69 y.o. Birthdate: 1950 Admit date: 02/13/2020 Attending Physician: Nima Armstrong MD Urology Pre-operative H&P Update ID: Wally Aguilar is a 69 y.o. male who presents today for radical cystectomy/ileal conduit with Dr. Armstrong. Subjective: Denies any significant change in health since last clinic visit on 01/15/2020. Has had intermittent nausea and decreased PO intake, likely related to chemo vs procedural anxiety. Denies chest pain, shortness of breath, dysuria, hematuria. Has held his aspirin for several days. Objective: General: pleasant, conversant, alert and oriented CV: RRR, no murmurs, rubs or gallops appreciated Pulm: CTAB Urine culture 01/14 Mixed A/P: Wally Aguilar is a 69 y.o. male who presents for radical cystoprostatectomy/ileal conduit with . This procedure has been fully reviewed with the patient and written informed consent has been obtained. We will proceed with planned operation. documented in this encounter Miscellaneous Notes * Consult Note - Nataly Caballero LPN - 03/07/2020 2:15 PM EDT Vascular Access Service Patient Guidelines for Self-Care following Port-a Cath De-access (Implanted Mediport device) Your Port-a-Cath was De-accessed (removal of the needle) on 02/05/20 . Your Port- a-Cath has been identified as a: ____x__Single Lumen Dual Lumen ___x___Power Port NON Power Port ___x___Your Port-a-Cath has been flushed with Heparin. Your Port-a-Cath has been flushed with . (If allergy to Heparin) Your Port-a-Cath is due for the Monthly flush by__[facility] Your Port-a-Cath should be accessed and flushed with Heparin (to prevent blood clots from forming within the catheter) within 4 weeks of de-access (removal of the needle). Contact your Primary Care Physician if you need assistance with scheduling an appointment for your monthly flush. Call your doctor following your Port-a-Cath de-access (needle removal) if you experience any of thefollowing: ??? Fever (temperature over 100.1F) ??? Chills ??? Drainage from the insertion site (including bleeding) ??? Redness, warmth, pain, swelling at the Port-a-Cath insertion site. * If possible please keep your Identification card for your Port-a-Cath with you at all times. Due to current mental status discontinue instructions provided to RN taking care of patient. * Consult Note - Shelby Gilliland RN - 03/07/2020 10:16 AM EDT Inpatient post op note Diagnosis: Bladder Cancer ?? Surgery/Date: 02/13/2020 Procedure(s) (LRB): @CYSTECTOMY, COMPLETE, WITH ILEAL CONDUIT (WRVU 36.33) (N/A) @LYMPHADENECTOMY, PELVIC, INCLUDING MULTIPLE NODES-FELA (WRVU 14.06) (Bilateral) LIVER BIOPSY (N/A) Appliance: Removed [place] 1 3/4 with adapt ring and replaced with same. Changed: [x} Yes Stoma: Red, moist, protrudes, slightly oval ~1 1/4. Peristomal Skin: Healthy & intact. Teaching: Reviewed each step of the pouch change. Had pt disconnect from the bedside drainage bag, which he was able to do with verbal cueing. Pt was able to remove the pouch, clean & dry his skin, and place the adapt ring with verbal cueing. He requested that I cut the opening in the wafer andcenter the wafer around the stoma. He was able to snap the pouch in place and reconnect to the bedside drainage bag with minimal hands-on assistance. Family Present: [x} No Family Member Present:0 Psychosocial Acceptance: He assisted with the pouch change. Continues with flat affect and almost inaudible speak this morning. Special Notes: Pt has 5 spare [place] 1 3/4 wafers & pouches and 5 spare adapt rings in his green ostomy supply bag. Anticipated discharge today. Will f/u with him in the outpatient clinic. See photo from 03/04; no change. ZACKARY Nichols, RN, CWOCN 03/07/2020 Enterostomal Therapy Team Pager #[phone] * Plan of Care - Wendy King RN - 03/06/2020 6:20 PM EDT Problem: Patient Care Overview Goal: Plan of Care Review Outcome: Ongoing (Interventions Implemented as Appropriate) 03/06/201814 Plan of Care Review Progress progress toward functional goals is gradual Coping/Psychosocial Plan Of Care Reviewed With patient OUTCOME EVALUATION NOTE: OUTCOME SUMMARY: Vinny went to endo this AM. Afterward, he was started on carafate. He stated that it did relieve someof the burning sensation he was having. He did not eat anything today, but seemed to tolerate the bolus feedings well. His brother called today and would like an update on his status and info about the rehab facility. Vinny refused a shower. PLAN MOVING FORWARD: D/C to rehab tomorrow INDIVIDUALIZED FALL PREVENTION INTERVENTIONS: bed alarm Patient-specific fall risk factors per assessment: [current deficits]: Generalized weakness Assistance [level of assistance required for transfers and ambulation]: One person w/FWW Supervision [direct monitoring required during toileting and ADLs]: Hands on Surveillance [continuous indirect monitoring]: linda Patient-specific fall prevention interventions for sensory deficits provided, if applicable: Glasses as needed CPG GOAL OUTCOME EVALUATION: * Consult Note - Zachary Hurley - 03/06/2020 10:59 AM EDT Psychiatric Inpatient Consultation Follow Up Note Time Spent: 30min Information Sources: Patient. Electronic Medical Record. This patient was discussed with Dr. Negrete. See his note for confirmatory and/or revisionary documentation. Reason for consultation: Recommendations for management of depression versus hypoactive delirium Brief Background: Patient is a 69 YO M with history of bladder cancer (s/p recent chemotherapy), malnutrition, HTN, HLD, peripheral vascular disease, and asthma who presented to [facility] for cystoprostatectomy with ileal conduit on 02/12. Hospital course complicated by poor PO intake. History of Present Illness / Interval Events: NAOE. Appears to be more interactive on the methylphenidate. Going for EGD today to assess for other potential causes of dysphagia and nausea. Continues to have poor PO intake. Review of Systems: Constitutional: no fever, +low energy Cardiovascular: No CP Respiratory: No SOB GI: No n/v or constipation, +diarrhea, bowel incontinence, lower abdominal pain Musculoskeletal: No arthralgias Integumentary: No rash Neurological: No FREEMAN, tremor Psychiatric: See above Extent of history Determination: Alirio descriptors, reviewed systems, and level of history with x. HPI Descriptors 1-3 1-3 x 4 + Reviewed Systems 0 1 x 2-9 Level of Hx PF EPF x D Physical Exam: Last value Range last 24 hrs Temperature Temp: 36.3 ??C (97.3 ??F) Temp: [36.3 ??C (97.3 ??F)-36.6 ??C (97.9 ??F)] Heart Rate Heart Rate: 72 Heart Rate: [72-99] Blood Pressure BP: 125/74 BP: (95-127)/(61-79) Respiratory Rate Resp: 18 Resp: [18-20] SpO2 SpO2: 100 % SpO2: [98 %-100 %] Musculoskeletal System: Muscle Strength/Tone (note atrophy, abnormal movements): No abnormal movements Gait and Station: Not observed Mental Status Evaluation: Appearance: male, appears older than stated age, in hospital garb, appropriately groomed Behavior: Psychomotor slowing Speech: Increased rate, amount, volume. Reduced speech latency Mood: alright Affect: constricted Thought Process: Linear, goal-directed Thought Content: Denies SI and HI Orientation: Oriented to person, place, location, situation Cognition: Grossly intact Insight: Fair Judgment: Fair Memory Recent and remote recall grossly intact Language Fluent in Cypriot without paraphasic errors. Non-profane Fund of Knowledge Age appropriate Extent of Exam Determination: Alirio completed bullets & level of exam with ? X? Bullets Completed 1-5 6-8 x 9+ Level of Exam PF EPF x D Pertinent Diagnostic Testing: Last 3 wbc, hgb, hct plt Recent Labs 02/24/20 0205 02/22/20 0230 02/20/20 0204 WBC 8.0 9.6* 9.4 HGB 9.3* 9.7* 9.2* HCT 29.0* 28.5* 28.0* PLATELET 103* 97* 93* Last 3 Lytes Recent Labs 03/06/20 0145 02/28/20 0207 02/25/20 0202 NA 137 148* 135 K 5.1* 4.2 4.7 CL 105 112* 102 CO2 22 23 23 BUN 46* 67* 39* CREATININE 0.85 0.83 0.75* Last 3 LFTs Recent Labs 02/20/20 0204 01/15/20 1237 10/05/19 1431 AST 32 8 16 ALT 39 8 18 ALKPHOS 100 164* 172* BILITOT 0.2 0.2 0.3 BILIDIR 0.1 -- -- Last 3 Ca, Mg, Phos Recent Labs 03/06/20 0145 CALCIUM 9.3 PHOS 4.0 MAGNESIUM 0.96 Last 3 Coags No results for input(s): PT, INR, PTT in the last 168 hours. Last 3 ProBNP, Trop, CK No results for input(s): CK, TROPONINT, PROBNP in the last 168 hours. Last 3 TFT Recent Labs 02/28/20 0915 01/25/20 1238 TSH 1.32 0.82 Last 3 Lipids Recent Labs 01/25/20 1238 CHLPL 248 HDL 56 LDLCHOL 167 TRIG 126 Last 3 HgbA1C No results for input(s): HA1C in the last 7068 hours. UA:No results found for: COLOR, CLARITY, GLUCOSEU, PROTEINUADIP, BILIRUBINUA, UROBILIUADIP, PHUADIP, SPGRAVITYUA, BLOODUADIP, KETONESUA, NITRATEUA, LEUKOESTERUA, WBCUA, RBCU, BACTERIAUA, SQUAMEPIUA, HYALCAST, CULTUREREFLX Test: No results found for: HCGQUAL, HCGQUANT Urine Tox: No results found for: UBARBSCRN, UBENZOSCRN, UCOCAINESCR, UMETHMETSCRN, UOPIATESCRN, UCANNABSCRN, UOXYSCRN, UBUPRENORPHN, UFENTANYLSCR, UTRICYCLICS, UETHANOLSCRN, UAMPHETAMIN, SVTUADULTER Levels: No results found for: LITHIUM No components found for: DEPAKOTE No results found for: LITHIUM, CARBAMAZEPIN, VALPROATE, LAMOTRIGINE, CLOZAPINE No results found for: LITHIUM, CARBAMAZEPIN, VALPROATE, LAMOTRIGINE, CLOZAPINE EKG QTc: No results for input(s): QTCCALC, QRSDURATION in the last 720 hours. Vitamin D low (15), TSH and B12 WNL ESR 101, hsCRP 13 Assessment: Patient is a 69 YO M with history of bladder cancer (s/p recent chemotherapy), malnutrition, HTN, HLD, peripheral vascular disease, and asthma who presented to [facility] for cystoprostatectomy with ileal conduit on 02/12. Patient's presentation is inconsistent with hypoactive delirium, as he has intact consciousness and cognition and his mental status does not appear to be waxing & waning per nursing report/chart review. He does endorse decreased mood, appetite, energy, and motivation with passiveSI and sleep difficulties. ?? Patient is s/p 50,000 IU of vitamin D2 to address low vitamin D level. Inflammatory labs were drawn, demonstrating elevated ESR and hsCRP. Pro- inflammatory states in the setting of systemic illness (cancer) can drive behaviors that mimic depression such as low mood, energy, appetite, etc. Methylphenidate dose yesterday has been titrated up to 12.5 mg BID with some improvement noted in affect, energy, and appetite. As patient is now on stable dose of methylphenidate, would recommend starting mirtazapine tonight for anti- depressant, sedative, and orexigenic effects. Would recommend continuing the varenicline, which was started this hospitalization - although it can contribute to nausea, this is mitigated by administering with free water boluses, and the benefits outweigh the potential side effects. Primary Diagnosis: Depression NOS Plan/Recommendations: - continue methylphenidate 12.5 mg q6AM + 12.5 mg qNoon - please avoid giving second dose later than noon as it can affect sleep - continue melatonin 6 mg QHS - start mirtazapine 7.5 mg QHS, if he tolerates can titrate up on the following schedule: - after receiving 3 doses, increase to 15 mg QHS - after another 3 doses, can increase to 30 mg QHS - continue varenicline as ordered - vitamin D low, s/p 50,000 IU vitamin D2 - page Consult Psychiatry (#[id number]) for any additional questions or concerns Recommendations were communicated to primary steamship agent. Coding Determination Complexity of MDM Determination: Alirio appropriate # of Dx, Amt, complexity of date, Risk, & corresponding level of MDM with x.2 out of 3 elements in row must be met to qualify. # of Possible Diagnoses or Management Options Amount and/or Complexity of Data Risk of Complications, Morbidity, and or Mortality Type of Decision Making Minimal Minimal/None Minimal Straightforward Limited Limited Low Low Multiple Moderate Moderate Moderate x Extensive x Extensive x High x High Subsequent Hospital Day Service Code Determination: Alirio Hx, Exam, MDM & LAUREN/CPT Code with x. 2 out of # wilson components in the row must be met toqualify. HISTORY EXAM MDM LAUREN/CPT CODE PF PF Straightforward/Low 3005/24527 EPF EPF Moderate 3015/65801 x D x D x High x 3025/35148 Associated attestation - Keshia Johnson MD - 03/06/2020 10:38 PM EDT Psychiatry Attending Note I discussed the case with the resident, and saw and evaluated the patient (on 03/06/2020) within 24 hours of the service described in the resident's note. I reviewed the patient???s history during the visit and I agree with the details as written. My exam confirms the resident's findings. The assessment and plan were formulated in discussion with me and I agree with them as documented. H Roberto Johnson MD Psychiatry Consultation Pager: [phone] * Plan of Care - Danie Callahna RN - 03/06/2020 4:17 AM EDT Problem: Patient Care Overview Goal: Plan of Care Review Outcome: Ongoing (Interventions Implemented as Appropriate) 03/05/20 0242 03/05/202134 Plan of Care Review Progress progress toward functional goals is gradual -- Coping/Psychosocial Plan Of Care Reviewed With -- patient OUTCOME EVALUATION NOTE: ?? OUTCOME SUMMARY: ?? Patient denied any pain. He is not tolerating any PO medications at this time and refused both his Marinol, chantix, and inhaler at HS. He continues to have no appetite with intermittent nausea. No emesis occurred overnight. TF infusing at 70ml/hr until midnight when his diet was changed to NPO in anticipation of an upper GI endoscopy occurring on 03/06. LS dim but clear. Abdomen tender during palpation. Midline incision well approximated and left ANTWON. Urostomy output is bright yellow with mucuspresent. VSS. Care clustered to promote rest overnight. ?? PLAN MOVING FORWARD: ?? Monitor patient's VS, implanted port, potassium level and urostomy output closely. Check patient's skin frequently for moisture and apply barrier cream and antifungal lotions as directed for incontinence care. Encourage PO intake, ambulation, frequent position changes, IS use, and verbalizing his needs. Cluster care to promote rest. Patient expected to have an upper GI endoscopy done on 03/06 r/t frequent nausea, dry heaving, and diet intolerance. ?? INDIVIDUALIZED FALL PREVENTION INTERVENTIONS: High Fall Risk ?? Patient-specific fall risk factors per assessment: [current deficits]: ??Patient's current risk factors include: abdominal pain, implanted port, PIV, urostomy, intermittent nausea, midline incision, uses an ambulatory aid, noted sensory deficits, and generalized weakness related to current medical status. ?? Assistance [level of assistance required for transfers and ambulation]: 1 assist with FWW ?? Supervision [direct monitoring required during toileting and ADLs]: Eyes on ?? Surveillance [continuous indirect monitoring]: Bed/Chair alarm, yellow fall band, NKE at bedside, purposeful rounding, environmental modification (floor free of clutter, tubing secured), bed in low position, lighting adjusted for task/safety, nonskid slippers when out of bed, wheels locked, call light in reach, upper side-rails raised X2, ID bands on. ?? Patient-specific fall prevention interventions for sensory deficits provided, if applicable: [X] Yes, glasses ? CPG GOAL OUTCOME EVALUATION: ?? * Plan of Care - Soniya Moss RN - 03/05/2020 4:38 PM EDT OUTCOME EVALUATION NOTE: OUTCOME SUMMARY: Pt reporting no pain to nursing throughout the day, when GI team in pt stated he had mild abd cramping pain, no interventions needed, pt declined lidocaine patches. Pt unable to tolerate PO meds thismorning, meds that were able to be crushed were given through g-tube. Minimal PO intake, sips of water and milk throughout the day, tolerating tube feeds. Pt reporting ongoing acid reflux throughout the day, no improvement when pt up in chair. Pt OOB to chair for majority of afternoon. Pt conversing more with staff this afternoon after both doses of methylphenidate. Offered for pt go outside, butweather changed outside and was unable to. PLAN MOVING FORWARD: Monitor pain, PO intake as tolerated, NPO @0000 for EGD, Hold TF @0000, encourage OOB and ambulation, provide choices to pt INDIVIDUALIZED FALL PREVENTION INTERVENTIONS: High Fall Risk Patient-specific fall risk factors per assessment: [current deficits]: 69 yo s/p cystectomy w/ ileal conduit, G-tube infusing, PIV, generalized weakness, 2 or more active medical diagnosis Assistance [level of assistance required for transfers and ambulation]: 1 A w/ FWW Supervision [direct monitoring required during toileting and ADLs]: eyes on Surveillance [continuous indirect monitoring]: Nurse knowledge exchange, purposeful rounding, environmental modifications (waste basket is out of the path and the IV tubing and cords are free from the floor), fall reduction program in place, lighting adjusted for task, bed in low position, wheels lo cked, side rails up (x2), nonskid socks worn OOB, no restraints, call light is within reach at all times, assistive device, bed/chair alarm, [place] ID band on Patient-specific fall prevention interventions for sensory deficits provided, if applicable: [X] N/A CPG GOAL OUTCOME EVALUATION: * Consult Note - Clayton Norris MSW - 03/05/2020 3:06 PM EDT Psychiatry Behavioral Intervention Team (BIT) BRITTNI BLAST FURNACE AUXILIARIES SUPERVISOR attempted to engage with pt. Pt was withdrawn and uncommunicative. He stated that he was struggling with acid reflux , but that he would be open to a follow up with lead technical writer later in the week. Cad Operator agreed to try and meet with him again on Wednesday or . BRITTNI KANGW will continue to follow and remains available to patient/staff as needed Obdulio MINGO Norris [phone] Pager [phone] * Consult Note - Zofia Ahuja MD - 03/05/2020 11:06 AM EDT GASTROENTEROLOGY & HEPATOLOGY CONSULTATION Initial Consult Note Requesting Provider: Nima Armstrong MD REASON FOR CONSULTATION Abdominal Pain and PO intolerance HISTORY OF PRESENT ILLNESS Wally Aguilar is a 69 y.o. y.o. with a history of bladder cancer (diagnosed February 2019, now T3N1M0) s/p radical cystoprostatectomy with ileal conduit on 02/13/20 (current admission), GERD, aortoiliac endarterectomy, COPD with ongoing tobacco use (100 pack years), HLD, HTN. GI was consulted for abdominal pain. The patient is currently on hospital day #21, Post-operative Day #21 from a cystoprostatectomy withileal conduit for muscle invasive bladder cancer. His post-operative course has been complicated byintermittent abdominal pain, nausea causing difficulty with PO intake of meds, and infectious diarrhea; he is currently on antibiotics for cryptosporidium and campylobacter (tested positive on 02/17, finished azithromycin on 03/04). Throughout this admission, he has frequently been incontinent of liquid stool. Due to nausea with PO tolerance, IR placed a G-tube on 02/27 (he is tolerating tube feeds without issues). Per chart review, he has refused meds due to taste and swallowing issues, but AUTOMOBILE BODY REPAIRER HELPER did not find mechanical issues with swallowing. History may be unreliable, as the patient is reluctant to engage in conversation and is extremely difficult to understand. Psychiatry was consulted during this hospital stay, and started methylphenidate for depression. Today, he reports that for a long time, he has experienced nausea and retching whenever attempting to eat solid food. Additionally, he frequently vomits stomach acid even when he is not attempting to eat/drink, and often has a burning sensation in his chest and throat after he has vomited. He is unwilling to engage in conversation about home diet/eating habits. On speaking to his nurse, it is difficult to discern whether the patient's symptoms began before orafter this hospital admission. His nurse reports that even the sight of pills/medicaitons is enoughto make the patient retch/vomit. He is completely unwilling to attempt meals or PO intake of medications here, but he has been eating ice cream often. He reports that his diarrhea has recently improved, only having 1-2 BMs per day in the past few days. Endoscopic History: The patient reports he has not ever undergone upper GI endoscopy, but he thinks he has had a colonoscopy before. ROS: Unable to obtain due to patient not conversing PAST MEDICAL/SURGICAL HISTORY: Past Medical History: Diagnosis Date ??? Asthma ??? Cancer kidney ??? Chronic pain right calf paiins him since his hip surgery ??? COPD (chronic obstructive pulmonary disease) pt has asthma but states he does not have copd or emphysema ??? Delayed emergence from anesthesia ??? GERD (gastroesophageal reflux disease) ??? Hypertension ??? Intraoperative complication during his only surgery (hip from a fall off a doroteo) in 1990 in [place], [place]t he woke up during the procedure ??? PAD (peripheral artery disease) ??? Peptic ulcer disease ??? Seizure last seizure was 20 years ago ~ suffered from epilepsy but does not seem to be an issue anymore ??? Status post chemotherapy just had 8 weeks pf treatments 3 weeks ago ??? Transfusion history does not know ??? Urolithiasis ??? Vertigo balance problems only from the left leg being longer than the right leg from his hip surgery MEDICATIONS ??? free water bolus 200 mL Per G Tube BID ??? methylphenidate 12.5 mg Oral BID ??? pantoprazole DR 40 mg Per G Tube BID ??? metoprolol tartrate 12.5 mg Oral Q12H CARLOS ??? ergocalciferoL (vitamin D2) 50,000 Units Per G Tube Weekly ??? melatonin 6 mg Oral Nightly ??? dronabinoL 2.5 mg Oral BID ??? nitazoxanide 500 mg Oral Q12H CARLOS ??? miconazole nitrate Topical (Top) BID ??? lidocaine 3 patch Transdermal Q24H And ??? lidocaine 1 patch Transdermal Q24H ??? enoxaparin 40 mg Subcutaneous Q24H CARLOS ??? aspirin 81 mg Oral Daily ??? albuteroL 2 puff Inhalation 4 Times Daily ??? atorvastatin 20 mg Oral Daily ??? sodium chloride 0.9 % (flush) 5 mL Intravenous BID ??? varenicline 1 mg Oral BID ??? tube feeding diet 1,680 mL (03/05/20 0707) calcium carbonate, acetaminophen, phenol 1.4%, prochlorperazine, sodium chloride 0.9 % (flush), lidocaine, traMADoL ALLERGIES Allergies Allergen Reactions ??? Wellbutrin [Bupropion Hcl] Other (See Comments) Unknown on pt's chart from outside facility SOCIAL HISTORY Social History Socioeconomic History ??? Marital status: Single Spouse name: Not on file ??? Number of children: Not on file ??? Years of education: Not on file ??? Highest education level: Not on file Occupational History ??? Not on file Social Needs ??? Financial resource strain: Not on file ??? Food insecurity Worry: Not on file Inability: Not on file ??? Transportation needs Medical: Not on file Non-medical: Not on file Tobacco Use ??? Smoking status: Current Every Day Smoker Packs/day: 2.00 Years: 50.00 Pack years: 100.00 ??? Smokeless tobacco: Never Used Substance and Sexual Activity ??? Alcohol use: Yes Alcohol/week: 14.0 standard drinks Types: 14 Standard drinks or equivalent per week Comment: 2 ??? Drug use: Not Currently ??? Sexual activity: Not Currently Lifestyle ??? Physical activity Days per week: Not on file Minutes per session: Not on file ??? Stress: Not on file Relationships ??? Social connections Talks on phone: Not on file Gets together: Not on file Attends orthodoxy service: Not on file Active member of club or organization: Not on file Attends meetings of clubs or organizations: Not on file Relationship status: Not on file ??? Intimate partner violence Fear of current or ex partner: Not on file Emotionally abused: Not on file Physically abused: Not on file Forced sexual activity: Not on file Other Topics Concern ??? Not on file Social History Narrative 100 pack year smoker and continues to smoke 1/2-1 ppd. Ongoing moderately heavy alcohol use 2 drinks a night. No drug use. He grew up in [facility] and finished 11th grade. 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 He is and has 3 children, 2 live in [place] and one daughter in the [place] in [facility]; he has limited contact with them. His brother David age 66 [address] but has significant health challenges as well. He has a [employer] test case developer, Ketty Ricketts who is also his landlord and is instrumental in helping him manage his affairs. FAMILY HISTORY No family history on file. Vitals: 03/04/20 1600 03/04/20 2210 03/05/20 0717 03/05/20 0958 BP: 108/68 114/71 126/75 BP Location (NBP): Right arm Right arm Right arm Patient Position: Lying Lying Lying Pulse: 89 68 85 Resp: 21 20 20 Temp: 36.3 ??C (97.3 ??F) 36.6 ??C (97.9 ??F) 36.4 ??C (97.5 ??F) TempSrc: Axillary Axillary Oral SpO2: 100% 99% 100% Weight: Height: PHYSICAL EXAM GENERAL: Elderly appearing male, sitting upright in bed holding plastic bag to contain emesis. There is emesis on his weaver. HEENT: AT/NC, sclerae anicteric, moist mucous membranes CHEST: not examined CARDIAC: not examined. ABDOMEN: Soft, non-tender, non-distended. Ileal conduit present on right side of abdomen, there is clear yellow urine and mucus in the ostomy bag. G-tube present on LUQ. EXT: Warm, no edema NEURO: unable to examine fully, but he is able to respond to command and moves all extremities. SKIN: No jaundice Psych: patient is minimally responsive, takes entire minutes to respond (if at all), speaks extremely softly/incomprehensibly, displays minimal movement. LABS: No results found for: NA, K, CL, CO2, BUN, CREATININE, GLUCOSE CBC No results found for: WBC, HGB, HCT, PLATELET LFT's No results found for: ALKPHOS, AST, ALBUMIN, BILIDIR, BILITOT, ALT, PROT IMAGING: Reviewed in [facility] ENDOSCOPY: Not present in [facility]. IMPRESSION: Wally Aguilar is a 69 y.o. male with a history of bladder cancer, tobacco use, GERD, and recently diagnosed depression, and who is post-operative day 21 after cystoprostatectomy for bladder cancer. Post-operative course has been complicated by infectious diarrhea (appears to be resolving on abx) and PO intolerance, for which GI was consulted. From my very limited conversation with this patient and a more helpful conversation with his nurse,his PO intolerance seems to be due to a combination of GERD (rather than regurgitation) and behavioral factors. Given his significant hx of tobacco use, and given that he continues to have severe acid reflux despite PPI therapy, he will benefit from upper GI endoscopy to evaluate for an anatomical cause of GERD/PO intolerance (e.g. stricture). RECOMMENDATIONS: - Plan for Upper GI endoscopy tomorrow - NPO except meds after midnight - Stop Tube Feeds (G Tube Feeds) after midnight - continue pantoprazole - continue antibiotics for infectious diarrhea The plan as outlined above was discussed with Dr. York. Recommendations were discussed with primary team. Associated attestation - Chato York MD - 03/05/2020 4:27 PM EDT Attending attestation: I interviewed and examined the patient with Dr. Vargas on rounds. I confirm the history and wilson physical findings outlined in this note. The assessment and plan were formulated in discussion with me atthe time of this encounter, and I agree with them as documented. Plan for EGD on 03/06 with anesthesia. Continue PPI BID. If no identifiable causes of nausea and poor PO intake on EGD may need outpatient motility evaluation. 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 Chato York MD Section of Gastroenterology [facility] * Plan of Care - Jono Sommer RN - 03/05/2020 2:48 AM EDT Problem: Patient Care Overview Goal: Plan of Care Review Outcome: Ongoing (Interventions Implemented as Appropriate) 03/04/20 2210 03/05/20 0242 Plan of Care Review Progress -- progress toward functional goals is gradual Coping/Psychosocial Plan Of Care Reviewed With patient -- OUTCOME EVALUATION NOTE: OUTCOME SUMMARY: Patient A&Ox4, VSS, resting between care. Denies pain and nausea, but does endorse indigestion and heartburn. Adequate UOP via urostomy. No BM this shift. TF remains at goal rate via G-tube; g-tube maintained per orders. Will continue to monitor. PLAN MOVING FORWARD: ABX Promote PO intake TF via g-tube Discharge to rehab - pending bed placement INDIVIDUALIZED FALL PREVENTION INTERVENTIONS: High fall risk Patient-specific fall risk factors per assessment: [current deficits]: 2 or more active diagnoses, recent surgery, urostomy, j-tube, continuous TF, Port, PIV, generalized weakness, FWW, Assistance [level of assistance required for transfers and ambulation]: 1a FWW Supervision [direct monitoring required during toileting and ADLs]: Hands on Surveillance [continuous indirect monitoring]: Bed/chair alarm, masimo, hourly rounding, room near unit station, NKE at bedside, yellow fall band on, environmental modifications (clutter-free environment, tubing secured, bed low, lighting adjusted, nonskid socks when OOB, bed wheels locked, call light with in reach, upper side rails x2, ID bands on) Patient-specific fall prevention interventions for sensory deficits provided, if applicable: [X] N/A CPG GOAL OUTCOME EVALUATION: * Plan of Care - Alysa Ramirez RN - 03/04/2020 1:10 PM EDT Problem: Patient Care Overview Goal: Plan of Care Review Outcome: Ongoing (Interventions Implemented as Appropriate) 03/02/20 1733 03/04/20 0800 Plan of Care Review Progress progress toward functional goals is gradual -- Coping/Psychosocial Plan Of Care Reviewed With -- patient OUTCOME EVALUATION NOTE: OUTCOME SUMMARY: Vinny conversed some today, continues to voice his stomach aches and discomfort. TF continue to run at 70/hr. Able to take some pills po but not without much discomfort. Did not eat much at all today. Refused positional changes by RN. Otherwise resting comfortably, will continue to monitor. PLAN MOVING FORWARD: Monitor pain, changes in discomfort. DC to rehab - planning in process. * Consult Note - Romina Rice RN - 03/04/2020 10:21 AM EDT Images from the original note were not included. Inpatient post op note Diagnosis: Bladder Cancer Surgery/Date: 02/13/2020 Procedure(s) (LRB): @CYSTECTOMY, COMPLETE, WITH ILEAL CONDUIT (WRVU 36.33) (N/A) @LYMPHADENECTOMY, PELVIC, INCLUDING MULTIPLE NODES-FELA (WRVU 14.06) (Bilateral) LIVER BIOPSY (N/A) Appliance: Removed [place] 1 3/4 with adapt ring and replaced with same Changed: [x} Yes Stoma: red, moist, protrudes and measures irregular shape 1 1/4 Peristomal Skin: intact and healthy Teaching: reviewed steps of pouch change Family Present: [x} No Family Member Present: 0 Psychosocial Acceptance: he assisted with pouch change Special Notes: Filled his green ostomy supply bag so he now has 5 spare wafers and pouches and adapt rings and he has all of his paperwork. He was able to do steps of pouch change but needed prompting for each step. I would tell him to remove appliance and he did and then I would tell him to wash and dry area etc. He is unable to cut the wafer so I did this for him and helped him apply the adapt ring. He is definitely not independent with changing appliance on his own but follows verbal instruction. He is able to connect and disconnect ostomy pouch from lyles bag. Spoke very little throughoutmy visit, mumbled a few words. Stoma * Consult Note - Zachary Hurley Virgen - 03/04/2020 9:20 AM EDT Psychiatric Inpatient Consultation Follow Up Note Time Spent: 30min Information Sources: Patient. Electronic Medical Record. This patient was discussed with Dr. Negrete. See his note for confirmatory and/or revisionary documentation. Reason for consultation: Recommendations for management of depression versus hypoactive delirium Brief Background: Patient is a 69 YO M with history of bladder cancer (s/p recent chemotherapy), malnutrition, HTN, HLD, peripheral vascular disease, and asthma who presented to [facility] [place]stop[place] with ileal conduit on 02/12. Hospital course complicated by poor PO intake. History of Present Illness / Interval Events: NAOE. Dose of methylphenidate increased to 10 mg BID over the weekend. Reportedly looking improved on the medication, with improved PO intake. - this AM, the patient appears somewhat brighter. He has reduced speech latency and his responses to questions are more thoughtful. - reports sleeping well overnight - states that his mood would be better if my stomach felt better. Continues to have diarrhea, lower abdominal pain, and bowel incontinence. - the patient has not noticed a change in his appetite or energy, has not eaten breakfast yet. Review of Systems: Constitutional: no fever, +decreased energy Cardiovascular: No CP Respiratory: No SOB GI: No n/v or constipation, +diarrhea, bowel incontinence, lower abdominal pain Musculoskeletal: No arthralgias Integumentary: No rash Neurological: No FREEMAN, tremor Psychiatric: See above Extent of history Determination: Alirio descriptors, reviewed systems, and level of history with x. HPI Descriptors 1-3 1-3 x 4 + Reviewed Systems 0 1 x 2-9 Level of Hx PF EPF x D Physical Exam: Last value Range last 24 hrs Temperature Temp: 36.3 ??C (97.3 ??F) Temp: [36 ??C (96.8 ??F)-36.7 ??C (98.1 ??F)] Heart Rate Heart Rate: 86 Heart Rate: -- Blood Pressure BP: 137/72 BP: (105-137)/(66-72) Respiratory Rate Resp: 18 Resp: [16-21] SpO2 SpO2: 99 % SpO2: [99 %-100 %] Musculoskeletal System: Muscle Strength/Tone (note atrophy, abnormal movements): No abnormal movements Gait and Station: Not observed Mental Status Evaluation: Appearance: male, appears older than stated age, in hospital garb, appropriately groomed Behavior: Psychomotor slowing Speech: Increased rate, amount, volume. Reduced speech latency Mood: would be better if my stomach didn't hurt Affect: constricted Thought Process: Linear, goal-directed Thought Content: Denies SI and HI Orientation: Oriented to person, place, location, situation Cognition: Grossly intact Insight: Fair Judgment: Fair Memory Recent and remote recall grossly intact Language Fluent in Cypriot without paraphasic errors. Non-profane Fund of Knowledge Age appropriate Extent of Exam Determination: Alirio completed bullets & level of exam with ? X? Bullets Completed 1-5 6-8 x 9+ Level of Exam PF EPF x D Pertinent Diagnostic Testing: Last 3 wbc, hgb, hct plt Recent Labs 02/24/20 0205 02/22/20 0230 02/20/20 0204 WBC 8.0 9.6* 9.4 HGB 9.3* 9.7* 9.2* HCT 29.0* 28.5* 28.0* PLATELET 103* 97* 93* Last 3 Lytes Recent Labs 02/28/20 0207 02/25/20 0202 02/24/20 0205 NA 148* 135 133* K 4.2 4.7 4.7 CL 112* 102 104 CO2 23 23 21* BUN 67* 39* 34* CREATININE 0.83 0.75* 0.71* Last 3 LFTs Recent Labs 02/20/20 0204 01/15/20 1237 10/05/19 1431 AST 32 8 16 ALT 39 8 18 ALKPHOS 100 164* 172* BILITOT 0.2 0.2 0.3 BILIDIR 0.1 -- -- Last 3 Ca, Mg, Phos Recent Labs 02/28/20 0207 CALCIUM 8.5 PHOS 4.1 MAGNESIUM 1.01 Last 3 Coags No results for input(s): PT, INR, PTT in the last 168 hours. Last 3 ProBNP, Trop, CK No results for input(s): CK, TROPONINT, PROBNP in the last 168 hours. Last 3 TFT Recent Labs 02/28/20 0915 01/25/20 1238 TSH 1.32 0.82 Last 3 Lipids Recent Labs 01/25/20 1238 CHLPL 248 HDL 56 LDLCHOL 167 TRIG 126 Last 3 HgbA1C No results for input(s): HA1C in the last 7068 hours. UA:No results found for: COLOR, CLARITY, GLUCOSEU, PROTEINUADIP, BILIRUBINUA, UROBILIUADIP, PHUADIP, SPGRAVITYUA, BLOODUADIP, KETONESUA, NITRATEUA, LEUKOESTERUA, WBCUA, RBCU, BACTERIAUA, SQUAMEPIUA, HYALCAST, CULTUREREFLX Test: No results found for: HCGQUAL, HCGQUANT Urine Tox: No results found for: UBARBSCRN, UBENZOSCRN, UCOCAINESCR, UMETHMETSCRN, UOPIATESCRN, UCANNABSCRN, UOXYSCRN, UBUPRENORPHN, UFENTANYLSCR, UTRICYCLICS, UETHANOLSCRN, UAMPHETAMIN, SVTUADULTER Levels: No results found for: LITHIUM No components found for: DEPAKOTE No results found for: LITHIUM, CARBAMAZEPIN, VALPROATE, LAMOTRIGINE, CLOZAPINE No results found for: LITHIUM, CARBAMAZEPIN, VALPROATE, LAMOTRIGINE, CLOZAPINE EKG QTc: No results for input(s): QTCCALC, QRSDURATION in the last 720 hours. Vitamin D low (15), TSH and B12 WNL ESR 101, hsCRP 13 Assessment: Patient is a 69 YO M with history of bladder cancer (s/p recent chemotherapy), malnutrition, HTN, HLD, peripheral vascular disease, and asthma who presented to [facility] for cystopro[place]ctomy with ileal conduit on 02/12. Patient's presentation is inconsistent with hypoactive delirium, as he has intact consciousness and cognition and his mental status does not appear to be waxing & waning per nursing report/chart review. He does endorse decreased mood, appetite, energy, and motivation with passiveSI and sleep difficulties. ?? Patient is s/p 50,000 IU of vitamin D2 to address low vitamin D level. Inflammatory labs were drawn, demonstrating elevated ESR and hsCRP. Pro- inflammatory states in the setting of systemic illness (cancer) can drive behaviors that mimic depression such as low mood, energy, appetite, etc. Methylphenidate dose yesterday was increased over the weekend to 10 mg BID, with some improvement noted in affect, energy, and appetite. Would recommend continuing to increase to 12.5 mg BID today, can add adjunctive agent (mirtazapine vs. Cytomel vs. Anti-inflammatory agent) at later date. Primary Diagnosis: Depression NOS Plan/Recommendations: - increase methylphenidate to 12.5 mg q6AM + 12.5 mg qNoon - continue melatonin 6 mg QHS - will consider adding antidepressant (e.g. mirtazapine, cytomel) vs. antiinflammatory as adjunct at later date - vitamin D low, s/p 50,000 IU vitamin D2 - Psychiatry will continue to follow - page Consult Psychiatry (#[phone]) for any additional questions or concerns Recommendations were communicated to primary steamship agent. Coding Determination Complexity of MDM Determination: Alirio appropriate # of Dx, Amt, complexity of date, Risk, & corresponding level of MDM with x.2 out of 3 elements in row must be met to qualify. # of Possible Diagnoses or Management Options Amount and/or Complexity of Data Risk of Complications, Morbidity, and or Mortality Type of Decision Making Minimal Minimal/None Minimal Straightforward Limited Limited Low Low Multiple Moderate Moderate Moderate x Extensive x Extensive x High x High Subsequent Hospital Day Service Code Determination: Alirio Hx, Exam, MDM & LAUREN/CPT Code with x. 2 out of # wilson components in the row must be met toqualify. HISTORY EXAM MDM LAUREN/CPT CODE PF PF Straightforward/Low 3005/79868 EPF EPF Moderate 3015/74670 x D x D x High x 3025/25253 Associated attestation - Odilon Negrete MD - 03/11/2020 3:58 PM EDT Psychiatry Attending Note I discussed this patient's situation with the resident but did not see the patient. I contributed to the formulation and treatment planning as documented in the resident's note. Odilon Negrete MD Psychiatry Consultation Pager: [phone] * Plan of Care - Mg Perez RN - 03/04/2020 1:28 AM EDT OUTCOME EVALUATION NOTE: ?? OUTCOME SUMMARY: ?? A&Ox4, pt has improved affect, but still occasional flat/withdrawn affect. VSS. Heartburn pain managed w/ Protonix w/ little effect. UOP adequate via urostomy. BM x2 this shift, 1 episode of incontinence in bed. Pt tolerating TF well at goal rate. PO intake limited d/t taste complaints but managed couple scoops ice cream and sips of milk. Resting between care. ?? PLAN MOVING FORWARD: Promote PO intake Monitor and manage pain Promote OOB and ambulation D/C planning ?? INDIVIDUALIZED FALL PREVENTION INTERVENTIONS: [place] Risk ? Patient-specific fall risk factors per assessment: [current deficits]:?69 y.o s/p cystectomy w/ ileal conduit w/ generalized weakness, pain, urostomy, TF, PIV, and Port ? Assistance [level of assistance required for transfers and ambulation]:?1 Assist w FWW ? Supervision [direct monitoring required during toileting and ADLs]:?Eyes on ? Surveillance [continuous indirect monitoring]:?Bed/chair alarm, yellow fall band, NKE at bedside, purposeful rounding, environmental modification (floor free of clutter, tubing secured), bed in low position, lightening adjusted for task/safety, nonskid slippers when out of bed, wheels locked, call light in reach, upper side-rails raised X2, ID band on. ? Patient-specific fall prevention interventions for sensory deficits provided, if applicable: [X] N/A ? CPG GOAL OUTCOME EVALUATION: * Plan of Care - Elsy Haynes RN - 03/03/2020 6:08 PM EDT Problem: Skin Integrity Impairment, Risk/Actual (Adult) Goal: Skin Integrity/Wound Healing Patient will demonstrate the desired outcomes by discharge/transition of care. Outcome: Ongoing (Interventions Implemented as Appropriate) 02/22/20 1816 Skin Integrity Impairment, Risk/Actual (Adult) Skin Integrity/Wound Healing making progress toward outcome Problem: Patient Care Overview Goal: Plan of Care Review Outcome: Ongoing (Interventions Implemented as Appropriate) 03/02/20 1733 03/03/20 0810 Plan of Care Review Progress progress toward functional goals is gradual -- Coping/Psychosocial Plan Of Care Reviewed With -- patient OUTCOME EVALUATION NOTE: OUTCOME SUMMARY: ?? Patient denying pain but reporting heartburn after PO intake, managed with scheduled Protonix and sergio-seltzer given x1 at 1745. Pt has had adequate UOP through urostomy. Appetite has still been decreased, denies nausea but pt's affect has been notably increased today with increased conversation, greater motivation and assertive mood reporting how he likes to take his iced coffee and sharing stories from his past. TF continues through G tube at goal rate with no issues. Pt up to the toilet thisevening and had loose/liquid brown BM x1. Resting well between care. ?? PLAN MOVING FORWARD: ?? Tube feeds; Promoting PO intake OOB activities D/c planning ?? INDIVIDUALIZED FALL PREVENTION INTERVENTIONS: [place] Risk ? Patient-specific fall risk factors per assessment: [current deficits]:?Generalized weakness, intermittent pain/discomfort, drains/devices, IVF/tubing, medication effects ? Assistance [level of assistance required for transfers and ambulation]:?Ax1 with FWW ? Supervision [direct monitoring required during toileting and ADLs]:?Eyes on ? Surveillance [continuous indirect monitoring]:?Bed/chair alarm, yellow fall band, NKE at bedside, purposeful rounding, environmental modification (floor free of clutter, tubing secured), bed in low position, lightening adjusted for task/safety, nonskid slippers when out of bed, wheels locked, call light in reach, upper side-rails raised X2, ID band on. ? Patient-specific fall prevention interventions for sensory deficits provided, if applicable: [X] N/A CPG GOAL OUTCOME EVALUATION: Goal: Fall Prevention-Safe Patient Handling Outcome: Ongoing (Interventions Implemented as Appropriate) 03/03/20 0810 Daily Care Interventions Self-Care Promotion independence encouraged;BADL personal objects within reach Restraint Interventions Safety Promotion/Fall Prevention activity supervised;fall prevention program maintained;nonskid shoes/slippers when out of bed;safety round/check completed Activity Activity Type activity adjusted per tolerance Activity Assistance Provided assistance, 1 person Assistive Device Utilized front-wheel walker Positioning Body Position independent Bearden Fall Risk History of Falling 0 Secondary Diagnosis 15 Ambulatory Aids 15 Intravenous Therapy/Heparin/Saline Lock 20 Gait/Transferring 10 Mental Status 0 Score 60 OTHER Bearden Fall Risk High * Plan of Care - Samy Knight RN - 03/03/2020 6:48 AM EDT OUTCOME EVALUATION NOTE: OUTCOME SUMMARY: Patient rested well between care. No complaints of pain or nausea. Multiple BM overnight. One episode of incontinence in bed. Tolerating TF well. Otherwise, uneventful shift. All needs met. PLAN MOVING FORWARD: Continue current plan, encourage mobilization, encourage PO intake, monitor for pain and nausea, encourage independence, INDIVIDUALIZED FALL PREVENTION INTERVENTIONS: High Fall Risk, Patient-specific fall risk factors per assessment: [current deficits]: IV catheter, SCD's, opioid pain medication, 2 or more medical diagnosis, uses walker to ambulate, urostomy, Assistance [level of assistance required for transfers and ambulation]: SBA with walker, Supervision [direct monitoring required during toileting and ADLs]: Eyes on, Surveillance [continuous indirect monitoring]: Purposeful rounding, bed alarm, chair alarm, NKE at bedside, bed in low position, nonskid shoes when OOB, personal items within reach, Patient-specific fall prevention interventions for sensory deficits provided, if applicable: [X] No CPG GOAL OUTCOME EVALUATION: * Consult Note - Preston Biswas MD - 03/02/2020 10:00 PM EDT Psychiatric Inpatient Consultation Follow Up Note Time Spent: 10min Information Sources: Patient. Electronic Medical Record. This patient was discussed with Dr. Mendes. See his note for confirmatory and/or revisionary documentation. Reason for consultation: Recommendations for management of depression versus hypoactive delirium Brief Background: Patient is a 69 YO M with history of bladder cancer (s/p recent chemotherapy), malnutrition, HTN, HLD, peripheral vascular disease, and asthma who presented to [facility] [place]stop[place] with ileal conduit on 02/12. Hospital course complicated by poor PO intake. History of Present Illness / Interval Events: -Dose of methylphenidate increased to 7.5 mg BID -Patient denies acute complaints overnight or throughout the day today. -This AM he reports not noticing any notable benefit, per primary team he appeared slightly more bright and energetic. -Patient denies chest pain, headaches, Insomnia, was agreeable to increase in stimulant dose in AM -Denies si/hiavh. Review of Systems: Constitutional: no fevers Cardiovascular: No CP Psychiatric: See above Extent of history Determination: Alirio descriptors, reviewed systems, and level of history with x. HPI Descriptors 1-3 1-3 x 4 + Reviewed Systems 0 1 x 2-9 Level of Hx PF EPF x D Physical Exam: Last value Range last 24 hrs Temperature Temp: 36.6 ??C (97.9 ??F) Temp: [36.5 ??C (97.7 ??F)-37.1 ??C (98.8 ??F)] Heart Rate Heart Rate: 86 Heart Rate: [70-100] Blood Pressure BP: 117/74 BP: (103-117)/(60-74) Respiratory Rate Resp: 16 Resp: [14-16] SpO2 SpO2: 99 % SpO2: [83 %-100 %] Musculoskeletal System: Muscle Strength/Tone (note atrophy, abnormal movements): No abnormal movements Gait and Station: Not observed Mental Status Evaluation: Appearance: male, appears older than stated age, in hospital garb, appropriately groomed, Behavior: Psychomotor retardation Speech: Low volume, + speech latency Mood: better after shower Affect: blunted Thought Process: Linear, goal-directed Thought Content: Denies SI and HI Orientation: Oriented to person, place, location, situation Cognition: Grossly intact Insight: Fair Judgment: Fair Memory Recent and remote recall grossly intact Language Fluent in Cypriot without paraphasic errors. Non-profane Fund of Knowledge Age appropriate Extent of Exam Determination: Alirio completed bullets & level of exam with ? X? Bullets Completed 1-5 6-8 x 9+ Level of Exam PF EPF x D Pertinent Diagnostic Testing: Last 3 wbc, hgb, hct plt Recent Labs 02/24/20 0205 02/22/20 0230 02/20/20 0204 WBC 8.0 9.6* 9.4 HGB 9.3* 9.7* 9.2* HCT 29.0* 28.5* 28.0* PLATELET 103* 97* 93* Last 3 Lytes Recent Labs 02/28/20 0207 02/25/20 0202 02/24/20 0205 NA 148* 135 133* K 4.2 4.7 4.7 CL 112* 102 104 CO2 23 23 21* BUN 67* 39* 34* CREATININE 0.83 0.75* 0.71* Last 3 LFTs Recent Labs 02/20/20 0204 01/15/20 1237 10/05/19 1431 AST 32 8 16 ALT 39 8 18 ALKPHOS 100 164* 172* BILITOT 0.2 0.2 0.3 BILIDIR 0.1 -- -- Last 3 Ca, Mg, Phos Recent Labs 02/28/20 0207 02/25/20 0202 CALCIUM 8.5 8.0* PHOS 4.1 -- MAGNESIUM 1.01 -- Last 3 Coags No results for input(s): PT, INR, PTT in the last 168 hours. Last 3 ProBNP, Trop, CK No results for input(s): CK, TROPONINT, PROBNP in the last 168 hours. Last 3 TFT Recent Labs 02/28/20 0915 01/25/20 1238 TSH 1.32 0.82 Last 3 Lipids Recent Labs 01/25/20 1238 CHLPL 248 HDL 56 LDLCHOL 167 TRIG 126 Last 3 HgbA1C No results for input(s): HA1C in the last 7068 hours. UA:No results found for: COLOR, CLARITY, GLUCOSEU, PROTEINUADIP, BILIRUBINUA, UROBILIUADIP, PHUADIP, SPGRAVITYUA, BLOODUADIP, KETONESUA, NITRATEUA, LEUKOESTERUA, WBCUA, RBCU, BACTERIAUA, SQUAMEPIUA, HYALCAST, CULTUREREFLX Test: No results found for: HCGQUAL, HCGQUANT Urine Tox: No results found for: UBARBSCRN, UBENZOSCRN, UCOCAINESCR, UMETHMETSCRN, UOPIATESCRN, UCANNABSCRN, UOXYSCRN, UBUPRENORPHN, UFENTANYLSCR, UTRICYCLICS, UETHANOLSCRN, UAMPHETAMIN, SVTUADULTER Levels: No results found for: LITHIUM No components found for: DEPAKOTE No results found for: LITHIUM, CARBAMAZEPIN, VALPROATE, LAMOTRIGINE, CLOZAPINE No results found for: LITHIUM, CARBAMAZEPIN, VALPROATE, LAMOTRIGINE, CLOZAPINE EKG QTc: No results for input(s): QTCCALC, QRSDURATION in the last 720 hours. Vitamin D low (15), TSH and B12 WNL ESR 101, hsCRP 13 Assessment: Patient is a 69 YO M with history of bladder cancer (s/p recent chemotherapy), malnutrition, HTN, HLD, peripheral vascular disease, and asthma who presented to [facility] for cystoprostatectomy with ileal conduit on 02/12. Patient's presentation is inconsistent with hypoactive delirium, as he has intact consciousness and cognition and his mental status does not appear to be waxing & waning per nursing report/chart review. He does endorse decreased mood, appetite, energy, and motivation with passiveSI and sleep difficulties. ?? Methylphenidate in process of being titrated, today he had 7.5mg PO BID, tolerated it without issue, per patient no noticeable change, primary team reported he appeared slightly more energetic. No headaches, chest pain, or issues with insomnia. Reasonable to increase dose to 10mg PO BID as outlined below. Primary Diagnosis: Depression NOS Plan/Recommendations: - increase methylphenidate to 10 mg q6AM + 10 mg qNoon - continue melatonin 6 mg QHS - will consider adding antidepressant (e.g. mirtazapine, cytomel) vs. antiinflammatory as adjunct at later date - vitamin D low, s/p 50,000 U vitamin D2 - Psychiatry will continue to follow - page Consult Psychiatry (#[phone]) for any additional questions or concerns Recommendations were communicated to primary steamship agent. Coding Determination Complexity of MDM Determination: Alirio appropriate # of Dx, Amt, complexity of date, Risk, & corresponding level of MDM with x.2 out of 3 elements in row must be met to qualify. # of Possible Diagnoses or Management Options Amount and/or Complexity of Data Risk of Complications, Morbidity, and or Mortality Type of Decision Making Minimal Minimal/None Minimal Straightforward Limited Limited Low Low Multiple Moderate Moderate Moderate x Extensive x Extensive x High x High Subsequent Hospital Day Service Code Determination: Alirio Hx, Exam, MDM & LAUREN/CPT Code with x. 2 out of # wilson components in the row must be met toqualify. HISTORY EXAM MDM LAUREN/CPT CODE PF PF Straightforward/Low 3005/41053 EPF EPF Moderate 3015/68297 x D x D x High x 3025/78385 * Plan of Care - Wendy King RN - 03/02/2020 5:43 PM EDT Problem: Patient Care Overview Goal: Plan of Care Review Outcome: Ongoing (Interventions Implemented as Appropriate) 03/02/20 1733 Plan of Care Review Progress progress toward functional goals is gradual Coping/Psychosocial Plan Of Care Reviewed With patient OUTCOME EVALUATION NOTE: OUTCOME SUMMARY: Vinny was very alert today, but he c/o weakness and sleepiness and needs a lot of encouragement to doanything for himself. He did drink an iced coffee after multiple recipes were tried. He has been more conversive today. He has c/o some abd fullness and indigestion. He refuses tums and requests alkaseltzer which is not on formulary at [facility]. When asked if he wanted to wash up, he declined. He has been OOB to the BR today for one loose stool. PLAN MOVING FORWARD: Continue with TF at 70 Reinforce need for activity Encourage PO intake INDIVIDUALIZED FALL PREVENTION INTERVENTIONS: bed alarm set, non-skid socks Patient-specific fall risk factors per assessment: [current deficits]: Generalized weakness, TF, urostomy Assistance [level of assistance required for transfers and ambulation]: One person with FWW Supervision [direct monitoring required during toileting and ADLs]: Hand on Surveillance [facility]continuous indirect monitoring]: [facility] Patient-specific fall prevention interventions for sensory deficits provided, if applicable: Glasses as needed CPG GOAL OUTCOME EVALUATION: * Plan of Care - Samy Knight RN - 03/02/2020 6:36 AM EDT OUTCOME EVALUATION NOTE: OUTCOME SUMMARY: Patient rested well between care. Continues to complain of weakness. Encouraged independence with movement and ADL's. Refused most PO medication. Had some difficulty flushing G-tube at beginning of shift. Tolerating TF diet. Does complain of indigestion/heart burn overnight but refused TUMS. Multiple BM overnight. Otherwise, uneventful shift. All needs met. PLAN MOVING FORWARD: Continue current plan, encourage mobilization, encourage PO intake, monitor for pain and nausea, encourage independence, INDIVIDUALIZED FALL PREVENTION INTERVENTIONS: High Fall Risk, Patient-specific fall risk factors per assessment: [current deficits]: IV catheter, SCD's, opioid pain medication, 2 or more medical diagnosis, uses walker to ambulate, TF, g tube, urstomy to drainage bag, Assistance [level of assistance required for transfers and ambulation]: SBA with walker, Supervision [direct monitoring required during toileting and ADLs]: Eyes on, Surveillance [continuous indirect monitoring]: Purposeful rounding, bed alarm, chair alarm, NKE at bedside, bed in low position, nonskid shoes when OOB, personal items within reach, Patient-specific fall prevention interventions for sensory deficits provided, if applicable: [X] No CPG GOAL OUTCOME EVALUATION: * Plan of Care - Wendy King RN - 03/01/2020 5:26 PM EDT Problem: Patient Care Overview Goal: Plan of Care Review Outcome: Ongoing (Interventions Implemented as Appropriate) 03/01/20 9619 Plan of Care Review Progress progress toward functional goals is gradual Coping/Psychosocial Plan Of Care Reviewed With patient OUTCOME EVALUATION NOTE: OUTCOME SUMMARY: TPN d/c'd today. Encouraged PO intake - no success. TF at goal now. Pt has very flat affect, and herefuses to participate in many aspects of his care. He has been offered multiple foods and drinks and refuses almost everything. Unfortunately, what he does like, he only eats bites of at a time. He does seem to be a little more alert today than yesterday. Vinny has not agreed to a shower yet. PLAN MOVING FORWARD: Continue TF at goal Continue to encourage PO intake INDIVIDUALIZED FALL PREVENTION INTERVENTIONS: bed alarm set, non-skid socks, clear pathways Patient-specific fall risk factors per assessment: [current deficits]: Generalized weakness, recentsurgery Assistance [level of assistance required for transfers and ambulation]: One person with FWW Supervision [direct monitoring required during toileting and ADLs]: Hands on Surveillance [continuous indirect monitoring]: linda Patient-specific fall prevention interventions for sensory deficits provided, if applicable: Glasses as needed CPG GOAL OUTCOME EVALUATION: * Plan of Care - Nima George OTA - 03/01/2020 3:46 PM EDT Occupational Therapy Treatment Note Treatment Number OT: 5 Patient Dx: Wally Aguilar??is a 69 y.o.??male??with??PMH of asthma, hypertension, bilateral lower extremity claudication, hyperlipidemia and bladder cancer??who is??POD2??s/p cystoprostatectomy withileal conduit for MIBC.??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 ?? Past Medical History[]?Expand by Default ? Past Medical History: Diagnosis Date ??? Asthma ? Cancer ? kidney ??? Chronic pain ? right calf paiins him since his hip surgery ??? COPD (chronic obstructive pulmonary disease) ? pt has asthma but states he does not have copd or emphysema ??? Delayed emergence from anesthesia ? GERD (gastroesophageal reflux disease) ? Hypertension ? Intraoperative complication ? during his only surgery (hip from a fall off a doroteo) [place] 1990 [place] he woke up during the procedure ??? PAD (peripheral artery disease) ? Peptic ulcer disease ? Seizure ? last seizure was 20 years ago ~ suffered from epilepsy but does not seem to be an issue anymore ??? Status post chemotherapy ? just had 8 weeks pf treatments 3 weeks ago ??? Transfusion history ? does not know ??? Urolithiasis ? Vertigo ? balance problems only from the left leg being longer than the right leg from his hip surgery ?? Past Surgical History[]?Expand by Default ? Past Surgical History: Procedure Laterality Date ??? AORTO-ILIAC BYPASS GRAFT ? endarterectomy ??? CT GUIDED BIOPSY LYMPH NODE(CHEST/ABD/PELVIS) ?? 01/31/2020 ?? CT Guided Biopsy Lymph Node (Chest/Abd/Pelvis) 01/31/2020 [facility] RAD CAT SCAN ??? HIP FRACTURE SURGERY Right 1991 ??? INGUINAL HERNIA REPAIR Right ? IR MEDIPORT PLACEMENT/EXCHANGE ?? 11/27/2019 ?? IR Mediport Placement 11/27/2019 Jason Lujan, [place] [facility] INTERVENTIONL RAD ??? PRO CYSTECTOMY, ILEAL CONDUIT/SIGMOID BLADDER N/A 02/13/2020 ?? @CYSTECTOMY, COMPLETE, WITH ILEAL CONDUIT (WRVU 36.33) performed by Nima Armstrong MD at [facility] OR ??? PRO NEEDLE BIOPSY LIVER N/A 02/13/2020 ?? LIVER BIOPSY performed by Nima Armstrong MD at [facility] OR ??? PRO REMOVE PELVIS LYMPH NODES Bilateral 02/13/2020 ?? @LYMPHADENECTOMY, PELVIC, INCLUDING MULTIPLE NODES-FELA (WRVU 14.06) performed by Nima Armstrong MD at [facility] OR ? Social History: Patient lives??with a roommate Home Setup:??2nd floor apt with full FOS to enter. Bathroom with tubshower Baseline ADL/Mobility:??Pt is independent with ADLs at baseline and ambulates with straight cane. He does not drive but is able to walk to nearby shops.? Precautions/Special Considerations: ambulate, urostomy, DARYN drain, , midline incision, port, fall risk S: The big difference between here and home is there will be somebody else in the bed so I'll makeit to the bathroom. O: Patient seen for skilled OT treatment, and demonstrated the following: ?? Self-care & Functional Mobility: ?? Supine to sitting EOB: Min A ?? Sit to stand: CGA ?? Pt ambulated from bed to bathroom, turned and returned to bed. Pt required CGA / min A ?? Pt doff and donned socks with increased time and effort while seated EOB ?? Discussed with pt his incontinence while in bed. Pt stated he could feel when he needs to go to the bathroom but doesn't have time. Pt issued bedside commode on previous session. ?? Pt ended session d/t fatigue and t/f sitting EOB to supine with SBA ?? Cognition: ?? Behavior / Mood: alert, cooperative and flat affect ?? Alert and oriented to: person, place, time and situation ?? Follows commands: multi step and 100% of the time ?? Attention: WFL ?? Safety awareness: WFL ?? Vision: WFL ?? Endurance: Fatigued easily with activity ?? Vitals: Stable on RA ?? Strength/ROM: Deconditioned Pain: pt did not c/o pain at this time Education: Pt/family/caregiver education ongoing regarding: Role of occupational therapy/rehabilitation, Transfers, Assistive device/technique, ADL, Positioning, Safety, Precautions/Protocol, Functional Mobility, Activity pacing/Energy conservation and Balance. Staff Communication: Patient status, treatment, and mobility recommendations discussed with nursing/other staff. ASSESSMENT: Patient seen this afternoon for skilled OT. Session focussed on LB dressing, functionalmobility and discussion on his incontinentence. Pt demonstrated improvement with his OT goals and functional mobility. Pt will benefit from ongoing therapeutic interventions to achieve pt's and therapy goals Anticipated Discharge Disposition: [facility] facility/swing bed Equipment Recommendations: TBD ?? Daily schedule / Staff Recommendations: OOB to chair for meals,??ambulate as tolerated with FWW Encourage participation in ADL's by providing set up A on tray table and physical assist only as needed Occupational Therapy Goals: To be achieved by??02/28. Pt will perform seated shower with conditional independence Pt will stand at sink to brush teeth and wash face with conditional independence Pt will dress LB with conditional independence Pt will perform all aspects of toileting with conditional independence Pt will ambulate household distance with conditional independence and use of LRD Pt will demonstrate understanding of 2-3 energy conservation/pacing techniques for use during ADL/IADL tasks ?? Therapy Frequency: 2-3 times/wk Total Evaluation Minutes, Occupational Therapy: 23 Pager: [phone] ANTWON Ng Occupational Therapy Rehabilitation Department * Consult Note - Zachary Hurley Virgen - 03/01/2020 11:29 AM EDT Psychiatric Inpatient Consultation Follow Up Note Time Spent: 30min Information Sources: Patient. Electronic Medical Record. This patient was discussed with Dr. Negrete. See his note for confirmatory and/or revisionary documentation. Reason for consultation: Recommendations for management of depression versus hypoactive delirium Brief Background: Patient is a 69 YO M with history of bladder cancer (s/p recent chemotherapy), malnutrition, HTN, HLD, peripheral vascular disease, and asthma who presented to [facility] for cystopro[place] with ileal conduit on 02/12. Hospital course complicated by poor PO intake. History of Present Illness / Interval Events: NAOE. Dose of methylphenidate increased to 5 mg BID yesterday. Found to be deficient in vitamin D, received 50,000 units yesterday. - This AM, patient's mental status appears unchanged. Awake and alert, lying upright in bed, complaining of crampy pain in lower abdomen. Some increased speech latency. - He notes mild difficulty falling asleep last night - Has not noticed improvements in mood, energy, or appetite Review of Systems: Constitutional: no fevers Cardiovascular: No CP Respiratory: No SOB GI: No n/v/c, +diarrhea and lower abdominal pain Musculoskeletal: No arthralgias Integumentary: No rash Neurological: No FREEMAN, tremor Psychiatric: See above Extent of history Determination: Alirio descriptors, reviewed systems, and level of history with x. HPI Descriptors 1-3 1-3 x 4 + Reviewed Systems 0 1 x 2-9 Level of Hx PF EPF x D Physical Exam: Last value Range last 24 hrs Temperature Temp: 36.6 ??C (97.9 ??F) Temp: [36.5 ??C (97.7 ??F)-36.6 ??C (97.9 ??F)] Heart Rate Heart Rate: 97 Heart Rate: [85-97] Blood Pressure BP: 112/68 BP: (112-119)/(63-70) Respiratory Rate Resp: 18 Resp: [15-24] SpO2 SpO2: 96 % SpO2: [96 %-99 %] Musculoskeletal System: Muscle Strength/Tone (note atrophy, abnormal movements): No abnormal movements Gait and Station: Not observed Mental Status Evaluation: Appearance: male, appears older than stated age, in hospital garb, appropriately groomed, mild distress due to pain Behavior: Psychomotor retardation Speech: Low volume, some speech latency Mood: alright Affect: blunted Thought Process: Linear, goal-directed Thought Content: Denies SI and HI Orientation: Oriented to person, place, location, situation Cognition: Grossly intact Insight: Fair Judgment: Fair Memory Recent and remote recall grossly intact Language Fluent in Cypriot without paraphasic errors. Non-profane Fund of Knowledge Age appropriate Extent of Exam Determination: Alirio completed bullets & level of exam with ? X? Bullets Completed 1-5 6-8 x 9+ Level of Exam PF EPF x D Pertinent Diagnostic Testing: Last 3 wbc, hgb, hct plt Recent Labs 02/24/20 0205 02/22/20 0230 02/20/20 0204 WBC 8.0 9.6* 9.4 HGB 9.3* 9.7* 9.2* HCT 29.0* 28.5* 28.0* PLATELET 103* 97* 93* Last 3 Lytes Recent Labs 02/28/20 0207 02/25/20 0202 02/24/20 0205 NA 148* 135 133* K 4.2 4.7 4.7 CL 112* 102 104 CO2 23 23 21* BUN 67* 39* 34* CREATININE 0.83 0.75* 0.71* Last 3 LFTs Recent Labs 02/20/20 0204 01/15/20 1237 10/05/19 1431 AST 32 8 16 ALT 39 8 18 ALKPHOS 100 164* 172* BILITOT 0.2 0.2 0.3 BILIDIR 0.1 -- -- Last 3 Ca, Mg, Phos Recent Labs 02/28/20 0207 02/25/20 0202 02/24/20 0205 CALCIUM 8.5 8.0* 7.7* PHOS 4.1 -- 4.5 MAGNESIUM 1.01 -- 1.00 Last 3 Coags No results for input(s): PT, INR, PTT in the last 168 hours. Last 3 ProBNP, Trop, CK No results for input(s): CK, TROPONINT, PROBNP in the last 168 hours. Last 3 TFT Recent Labs 02/28/20 0915 01/25/20 1238 TSH 1.32 0.82 Last 3 Lipids Recent Labs 01/25/20 1238 CHLPL 248 HDL 56 LDLCHOL 167 TRIG 126 Last 3 HgbA1C No results for input(s): HA1C in the last 7068 hours. UA:No results found for: COLOR, CLARITY, GLUCOSEU, PROTEINUADIP, BILIRUBINUA, UROBILIUADIP, PHUADIP, SPGRAVITYUA, BLOODUADIP, KETONESUA, NITRATEUA, LEUKOESTERUA, WBCUA, RBCU, BACTERIAUA, SQUAMEPIUA, HYALCAST, CULTUREREFLX Test: No results found for: HCGQUAL, HCGQUANT Urine Tox: No results found for: UBARBSCRN, UBENZOSCRN, UCOCAINESCR, UMETHMETSCRN, UOPIATESCRN, UCANNABSCRN, UOXYSCRN, UBUPRENORPHN, UFENTANYLSCR, UTRICYCLICS, UETHANOLSCRN, UAMPHETAMIN, SVTUADULTER Levels: No results found for: LITHIUM No components found for: DEPAKOTE No results found for: LITHIUM, CARBAMAZEPIN, VALPROATE, LAMOTRIGINE, CLOZAPINE No results found for: LITHIUM, CARBAMAZEPIN, VALPROATE, LAMOTRIGINE, CLOZAPINE EKG QTc: No results for input(s): QTCCALC, QRSDURATION in the last 720 hours. Vitamin D low (15), TSH and B12 WNL ESR 101, hsCRP 13 Assessment: Patient is a 69 YO M with history of bladder cancer (s/p recent chemotherapy), malnutrition, HTN, HLD, peripheral vascular disease, and asthma who presented to [facility] [place]stop[place] with ileal conduit on 02/12. Patient's presentation is inconsistent with hypoactive delirium, as he has intact consciousness and cognition and his mental status does not appear to be waxing & waning per nursing report/chart review. He does endorse decreased mood, appetite, energy, and motivation with passiveSI and sleep difficulties. ?? Methylphenidate dose yesterday was increased to 5 mg BID, with little to no improvement thus far. Received 50,000 U of vitamin D2 to address low vitamin D level. Inflammatory labs were drawn, demonstrating elevated ESR and hsCRP. Pro- inflammatory states in the setting of systemic illness (cancer) can drive behaviors that mimic depression such as low mood, energy, appetite, etc. Would recommend continuing to increase methylphenidate for now, but will consider going a different route (antidepressant versus antiinflammatory agent) if patient continues to derive limited benefit. Primary Diagnosis: Depression NOS Plan/Recommendations: - increase methylphenidate to 7.5 mg q6AM + 7.5 mg qNoon - continue melatonin 6 mg QHS - will consider adding antidepressant (e.g. mirtazapine, cytomel) vs. antiinflammatory as adjunct at later date - vitamin D low, s/p 50,000 U vitamin D2 - Psychiatry will continue to follow - page Consult Psychiatry (#[phone]) for any additional questions or concerns Recommendations were communicated to primary steamship agent. Coding Determination Complexity of MDM Determination: Alirio appropriate # of Dx, Amt, complexity of date, Risk, & corresponding level of MDM with x.2 out of 3 elements in row must be met to qualify. # of Possible Diagnoses or Management Options Amount and/or Complexity of Data Risk of Complications, Morbidity, and or Mortality Type of Decision Making Minimal Minimal/None Minimal Straightforward Limited Limited Low Low Multiple Moderate Moderate Moderate x Extensive x Extensive x High x High Subsequent Hospital Day Service Code Determination: Alirio Hx, Exam, MDM & LAUREN/CPT Code with x. 2 out of # wilson components in the row must be met toqualify. HISTORY EXAM MDM LAUREN/CPT CODE PF PF Straightforward/Low 3005/70305 EPF EPF Moderate 3015/37819 x D x D x High x 3025/07425 Associated attestation - Odilon Negrete MD - 03/11/2020 3:59 PM EDT Psychiatry Attending Note I discussed this patient's situation with the resident but did not see the patient. I contributed to the formulation and treatment planning as documented in the resident's note. Odilon Negrete MD Psychiatry Consultation Pager: [phone] * Plan of Care - Flory Faulkner RN - 03/01/2020 2:23 AM EDT OUTCOME EVALUATION NOTE: OUTCOME SUMMARY: A&Ox4, although pt did have a flat/withdrawn affect. Pain managed w/ heat application and repositioning. UOP adequate via urostomy. BM x2 this shift. TF increased to 50 at 2200 and will be increased to 60 at 0600 per SEP order. Pt refused a majority of his PO meds d/t stomach pain. Otherwise resting intermittently between care. PLAN MOVING FORWARD: Promote PO intake as tolerated Monitor and manage pain Promote OOB and ambulation D/C planning INDIVIDUALIZED FALL PREVENTION INTERVENTIONS: [place] Risk ? Patient-specific fall risk factors per assessment: [current deficits]:?69 y.o s/p cystectomy w/ ileal conduit w/ generalized weakness, pain, tubes/drains and poor nutrition status ? Assistance [level of assistance required for transfers and ambulation]:?1 Assist w FWW ? Supervision [direct monitoring required during toileting and ADLs]:?Eyes on ? Surveillance [continuous indirect monitoring]:?Bed/chair alarm, yellow fall band, NKE at bedside, purposeful rounding, environmental modification (floor free of clutter, tubing secured), bed in low position, lightening adjusted for task/safety, nonskid slippers when out of bed, wheels locked, call light in reach, upper side-rails raised X2, ID band on. ? Patient-specific fall prevention interventions for sensory deficits provided, if applicable: [X] N/A ? CPG GOAL OUTCOME EVALUATION: * Plan of Care - Wendy King RN - 02/29/2020 6:03 PM EDT Problem: Patient Care Overview Goal: Plan of Care Review Outcome: Ongoing (Interventions Implemented as Appropriate) 02/29/20 1750 Plan of Care Review Progress progress toward functional goals is gradual Coping/Psychosocial Plan Of Care Reviewed With patient OUTCOME EVALUATION NOTE: OUTCOME SUMMARY: Vinny walked with PT today to the kitchen and back to his room. His PO intake was only bites and sips. Offered a variety of food, he said he would try some coffee ice cream, but he didn't eat that either. He refused a shower multiple times. G tube working well, advanced TF as ordered. Next change will be at 2200 to 50 cc/hr. VSS. Will cont to monitor. PLAN MOVING FORWARD: Continue to encourage PO intake Continue to encourage walking Continue Abx INDIVIDUALIZED FALL PREVENTION INTERVENTIONS: bed alarm set, staff assist when OOB, non-skid socks Patient-specific fall risk factors per assessment: [current deficits]: Generalized weakness, recentsurgery, ostomy Assistance [level of assistance required for transfers and ambulation]: One person with FWW Supervision [direct monitoring required during toileting and ADLs]: Hands on Surveillance [continuous indirect monitoring]: masimo Patient-specific fall prevention interventions for sensory deficits provided, if applicable: Glasses as needed CPG GOAL OUTCOME EVALUATION: * Plan of Care - Miller Alexis, PT - 02/29/2020 3:20 PM EDT Physical Therapy Note Treatment Number PT: 5 Patient profile: Wally Aguilar??is a 69 y.o.??male?admitted on 02/12 for??a cystoprostatectomy with ileal conduit for MIBC. DVT ruled out, pt has claudication RLE, multiple loose stools with some incontinence episodes.antibiotics for GI infection Interval History: GT placed, eating a few bites, . 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 Mobility and Positioning Recommendations: ?? Pt. To use a rolling walker and contact guard for mobility with assist for lines and IV pole. ?? Encourage more walks daily. ?? Please encourage up to chair daily Subjective: At home I was drinking cans of coffee. Objective: Patient seen for physical therapy and demonstrated the following: Pain: mild soreness at TF site Vital Signs: Stable on RA ?? Pt in bed looking at the flow of urine from his ileal conduit. ?? Quiet voice, low energy,increased time to get started with PT session. ?? Supine to sit to left side of bed via rolling with extra time, contact guard and cues. Small amount of stool noted on chux, pt dependent for pericare in standing with walker for support. ?? Pt ambulated to the kitchen,~30 ft with rolling walker with contact guard and assist with IV pole to get ice water ?? Pt able to lean forward and look at choices in the refrigerator/freezer, chose lemon ice ?? Ambulated back to his room ?? Stood EOB and turned x 2 to arrange TF lines, vcs for direction ?? Sit<->stand with supervision and cues for hand placement. ?? Sat EOB with good balance to drink some water and ate a few bites of lemon ice. ?? Sit to supine with cuing and increased time, continued to eat lemon ice. Education: Pt educated to continue ther-ex, repositioning, and to call for industrial staff nurse assistance withall mobility. Assessment: Wally Aguilar was seen today for physical therapy treatment session for continuation of POC. Pt remains quiet and lacks initiative at times but once engaged he is cooperative. Pt does not seem aware when he has been incontinent and is dependent for pericare, uses FWW for balance. Continues to require increased time for all functional activities. Today he did engage in choosing something to eat and participated in getting ice water in the kitchen, giving him a reason to ambulate. His overall energy level is low, appears depressed at times, concerned that pt would be able to care for himself in his home environment. He is deconditioned and cachectic, hoping for improvement with TF s/improved nutrition. Will continue PT to safely progress pt's mobility and function while he remains in-house. Pt will benefit from ongoing therapeutic interventions to achieve therapy goals. Discharge Recommendations: Based on the current findings, Anticipated Discharge Disposition: swing bed when medically ready for hospital discharge. Consult Recommendations: No other consults recommended at this time. OT working with pt, BIT team and psych involved Equipment needs: TBD Physical Therapy Goals: To be achieved by??03/08: -- ?? 1. Pt. to demonstrate knowledge of safety limitations and precautions and will appropriately request assistance for functional activities and to mobilize. 2. Pt. to perform bed mobility??independently. 3. Pt will initiate asking to ambulate or get into the bathroom. 4. Pt will demonstrate good balance during pericare 5. Pt. to perform sit to stand transfers??with modified independence??using FWW. ?? 6. Pt. to ambulate??100??feet with modified independence?using FWW. 7. Pt. to ambulate up/down??12??step/stairs ??using ??one rail?with supervision. 8. Family or caregiver to demonstrate understanding of strategies to support patient for safe discharge home ?? Plan: Therapy Frequency: 2-4 times/wk for as outlined in initial evaluation. Patient agrees with plan as stated. Time IN / OUT: 2:55-3:20 Total Evaluation Minutes, Physical Therapy: 25 TEF x 2 MILLER ALEXIS, PT Pager:[phone] Physical Therapy Inpatient Rehabilitation Department * Consult Note - Shelby Gilliland RN - 02/29/2020 12:03 PM EDT Inpatient post op note Diagnosis: Bladder Cancer Surgery/Date: 02/13/2020 Procedure(s) (LRB): @CYSTECTOMY, COMPLETE, WITH ILEAL CONDUIT (WRVU 36.33) (N/A) @LYMPHADENECTOMY, PELVIC, INCLUDING MULTIPLE NODES-FELA (WRVU 14.06) (Bilateral) LIVER BIOPSY (N/A) Appliance: Removed [place] 1 09/12 with adapt ring & replaced with same. Changed: [x} Yes Stoma: Red, moist, protrudes, and is round ~ 1 /. Peristomal Skin: Healthy & intact. Teaching: Reviewed each step of the pouch change. He was able to disconnect/reconnect the bedside drainage bag with enc. He was able to remove the pouch and clean and dry the peristomal skin with prompting. He asked that I cut the opening in the wafer and apply the adapt ring for him; he needed help centering it. He was able to remove the white paper tabs and snap the pouch in place with cueing and enc. Family Present: [x} No Family Member Present:0 Psychosocial Acceptance: Pt with flat affect and he was very quite throughout the pouch change. Special Notes: Pt has 4 spare wafers, pouches, and rings in his ostomy supply bag. There was quite a bit of creamy white mucous in the urostomy pouch prior to the change; urine is bright yellow. Willfollow. See photo from 02/25; no change. ZACKARY Nichols, RN, CWOCN 02/29/2020 Enterostomal Therapy Team Pager #[phone] * Consult Note - Zachary Hurley - 02/29/2020 9:37 AM EDT Psychiatric Inpatient Consultation Follow Up Note Time Spent: 30min Information Sources: Patient. Electronic Medical Record. This patient was discussed with Dr. Negrete. See his note for confirmatory and/or revisionary documentation. Reason for consultation: Recommendations for management of depression versus hypoactive delirium Brief Background: Patient is a 69 YO M with history of bladder cancer (s/p recent chemotherapy), malnutrition, HTN, HLD, peripheral vascular disease, and asthma who presented to [facility] for cystopro[place]ctomy with ileal conduit on 02/12. Hospital course complicated by poor PO intake. History of Present Illness / Interval Events: NAOE. Received first dose of methylphenidate yesterday at ~2 PM, another dose this morning around 6AM. - Patient lying in bed. Appears tired, with pronounced speech latency, low speech volume, slow movement - He has not noticed changes in energy and appetite on methylphenidate - denies side effects including headache, tremor - Patient does ask for milk while this lead technical writer is at bedside, drinks part of it Review of Systems: Constitutional: no fevers Cardiovascular: No CP Respiratory: No SOB GI: No n/v/c/d Musculoskeletal: No arthralgias Integumentary: No rash Neurological: No FREEMAN, Psychiatric: See above Extent of history Determination: Alirio descriptors, reviewed systems, and level of history with x. HPI Descriptors 1-3 1-3 x 4 + Reviewed Systems 0 1 x 2-9 Level of Hx PF EPF x D Physical Exam: Last value Range last 24 hrs Temperature Temp: 36.5 ??C (97.7 ??F) Temp: [36.3 ??C (97.3 ??F)-36.8 ??C (98.2 ??F)] Heart Rate Heart Rate: 86 Heart Rate: [68-90] Blood Pressure BP: 118/67 BP: (89-141)/(49-70) Respiratory Rate Resp: 15 Resp: [14-24] SpO2 SpO2: 98 % SpO2: [95 %-100 %] Musculoskeletal System: Muscle Strength/Tone (note atrophy, abnormal movements): No abnormal movements Gait and Station: Not observed Mental Status Evaluation: Appearance: male, appears older than stated age, in hospital garb, appropriately groomed Behavior: Psychomotor retardation Speech: Low volume, pronounced speech latency Mood: alright Affect: blunted Thought Process: Linear, goal-directed Thought Content: Denies SI and HI Orientation: Oriented to person, place, location, situation Cognition: Grossly intact Insight: Fair Judgment: Fair Memory Recent and remote recall grossly intact Language Fluent in Cypriot without paraphasic errors. Non-profane Fund of Knowledge Age appropriate Extent of Exam Determination: Alirio completed bullets & level of exam with ? X? Bullets Completed 1-5 6-8 x 9+ Level of Exam PF EPF x D Pertinent Diagnostic Testing: Last 3 wbc, hgb, hct plt Recent Labs 02/24/20 0205 02/22/20 0230 02/20/20 0204 WBC 8.0 9.6* 9.4 HGB 9.3* 9.7* 9.2* HCT 29.0* 28.5* 28.0* PLATELET 103* 97* 93* Last 3 Lytes Recent Labs 02/28/20 0207 02/25/20 0202 02/24/20 0205 NA 148* 135 133* K 4.2 4.7 4.7 CL 112* 102 104 CO2 23 23 21* BUN 67* 39* 34* CREATININE 0.83 0.75* 0.71* Last 3 LFTs Recent Labs 02/20/20 0204 01/15/20 1237 10/05/19 1431 AST 32 8 16 ALT 39 8 18 ALKPHOS 100 164* 172* BILITOT 0.2 0.2 0.3 BILIDIR 0.1 -- -- Last 3 Ca, Mg, Phos Recent Labs 02/28/20 0207 02/25/20 0202 02/24/20 0205 02/23/20 0155 CALCIUM 8.5 8.0* 7.7* 7.5* PHOS 4.1 -- 4.5 3.8 MAGNESIUM 1.01 -- 1.00 1.04 Last 3 Coags No results for input(s): PT, INR, PTT in the last 168 hours. Last 3 ProBNP, Trop, CK No results for input(s): CK, TROPONINT, PROBNP in the last 168 hours. Last 3 TFT Recent Labs 02/28/20 0915 01/25/20 1238 TSH 1.32 0.82 Last 3 Lipids Recent Labs 01/25/20 1238 CHLPL 248 HDL 56 LDLCHOL 167 TRIG 126 Last 3 HgbA1C No results for input(s): HA1C in the last 7068 hours. UA:No results found for: COLOR, CLARITY, GLUCOSEU, PROTEINUADIP, BILIRUBINUA, UROBILIUADIP, PHUADIP, SPGRAVITYUA, BLOODUADIP, KETONESUA, NITRATEUA, LEUKOESTERUA, WBCUA, RBCU, BACTERIAUA, SQUAMEPIUA, HYALCAST, CULTUREREFLX Test: No results found for: HCGQUAL, HCGQUANT Urine Tox: No results found for: UBARBSCRN, UBENZOSCRN, UCOCAINESCR, UMETHMETSCRN, UOPIATESCRN, UCANNABSCRN, UOXYSCRN, UBUPRENORPHN, UFENTANYLSCR, UTRICYCLICS, UETHANOLSCRN, UAMPHETAMIN, SVTUADULTER Levels: No results found for: LITHIUM No components found for: DEPAKOTE No results found for: LITHIUM, CARBAMAZEPIN, VALPROATE, LAMOTRIGINE, CLOZAPINE No results found for: LITHIUM, CARBAMAZEPIN, VALPROATE, LAMOTRIGINE, CLOZAPINE EKG QTc: No results for input(s): QTCCALC, QRSDURATION in the last 720 hours. Vitamin D low (15), TSH and B12 WNL Assessment: Patient is a 69 YO M with history of bladder cancer (s/p recent chemotherapy), malnutrition, HTN, HLD, peripheral vascular disease, and asthma who presented to [facility] for cystoprostatectomy with ileal conduit on 02/12. Patient's presentation is inconsistent with hypoactive delirium, as he has intact consciousness and cognition and his mental status does not appear to be waxing & waning per nursing report/chart review. He does endorse decreased mood, appetite, energy, and motivation with passiveSI and sleep difficulties. ?? Patient started on methylphenidate yesterday, at a very low dose, does not appear to have derived benefit thus far although he does not report side effects on the medication. Would recommend increasing his dose to 5 mg (at 6 AM and noon) today. Pt also noted to have a low vitamin D level, which can drive depression, so would recommend repleting. Could also consider checking a hsCRP and ESR, as pro- inflammatory states in the setting of systemic illness (cancer) can drive behaviors that mimic depression such as low mood, energy, appetite, etc. Primary Diagnosis: Depression NOS Plan/Recommendations: - increase methylphenidate to 5 mg q6AM + 5 mg qNoon - continue melatonin 6 mg QHS - will consider adding mirtazapine as adjunct at later date - consider ordering high sensitivity CRP and ESR - replete vitamin D levels - Psychiatry will continue to follow - page Consult Psychiatry (#[phone]) for any additional questions or concerns Recommendations were communicated to primary steamship agent. Coding Determination Complexity of MDM Determination: Alirio appropriate # of Dx, Amt, complexity of date, Risk, & corresponding level of MDM with x.2 out of 3 elements in row must be met to qualify. # of Possible Diagnoses or Management Options Amount and/or Complexity of Data Risk of Complications, Morbidity, and or Mortality Type of Decision Making Minimal Minimal/None Minimal Straightforward Limited Limited Low Low Multiple Moderate Moderate Moderate x Extensive x Extensive x High x High Subsequent Hospital Day Service Code Determination: Alirio Hx, Exam, MDM & LAUREN/CPT Code with x. 2 out of # wilson components in the row must be met toqualify. HISTORY EXAM MDM LAUREN/CPT CODE PF PF Straightforward/Low 3005/35933 EPF EPF Moderate 3015/24596 x D x D x High x 3025/57046 Associated attestation - Odilon Negrete MD - 03/11/2020 3:58 PM EDT Psychiatry Attending Note I discussed this patient's situation with the resident but did not see the patient. I contributed to the formulation and treatment planning as documented in the resident's note. Odilon Negrete MD Psychiatry Consultation Pager: [phone] * Plan of Care - Marcy Riojas RN - 02/29/2020 2:15 AM EDT Problem: Patient Care Overview Goal: Plan of Care Review Outcome: Ongoing (Interventions Implemented as Appropriate) 02/23/20 1700 02/28/20 3847 Plan of Care Review Progress progress toward functional goals is gradual -- Coping/Psychosocial Plan Of Care Reviewed With -- patient OUTCOME EVALUATION NOTE: ?? OUTCOME SUMMARY: Pain in abdomen 09/18, managed with PRN Tylenol. He slept most of the night. Refused most medications, but able to take his antibiotic and tylenol. Had difficulty swallowing medications. UOP adequate via urostomy. Urine is yellow with large amount of mucous. Minimal PO intake this shift. TF started at 20/hr to be increased to 30 at 0600. Tolerating TF OK. Blanchable redness noted on elbows, pillowsupport provided. Incontinent of loose stool. Will continue to monitor. ?? PLAN MOVING FORWARD: Monitor/manage pain Encourage OOB Increase TF by 10ml Q8 hours ?? INDIVIDUALIZED FALL PREVENTION INTERVENTIONS: ??High Risk ?? Patient-specific fall risk factors per assessment: [current deficits]:?Recent Surgery, weakness,drain ?? Assistance [level of assistance required for transfers and ambulation]:?1A with FWW ?? Supervision [direct monitoring required during toileting and ADLs]:?Hands on ?? Surveillance [continuous indirect monitoring]:?Bed/chair alarm, masimo, hourly rounding, room near unit station, NKE at bedside, yellow fall band on, environmental modifications (clutter-free environment, tubing secured, bed low, lighting adjusted, nonskid socks when OOB, bed wheels locked, calllight with in reach, upper side rails x2, ID bands on) ?? Patient-specific fall prevention interventions for sensory deficits provided, if applicable:?[X]N/A ? CPG GOAL OUTCOME EVALUATION:? * Plan of Care - Soniya Moss RN - 02/28/2020 5:46 PM EDT OUTCOME EVALUATION NOTE: OUTCOME SUMMARY: Pt reporting no pain throughout the shift. Pt to IR this morning for G-tube placement, report received from Brooke in IR, pt returned w/ g-tube in place, dressing CDI. Pt had loose inct stool x2 this shift, declined getting OOB to toilet this afternoon. Pt declined lunch, ate a strawberry ice cream for dinner. Pt ambulated from bed to stretcher and back for IR today. PLAN MOVING FORWARD: Monitor pain, encourage OOB and ambulation, PO intake as tolerated, start TF this evening, promote independence w/ ostomy care INDIVIDUALIZED FALL PREVENTION INTERVENTIONS: Patient-specific fall risk factors per assessment: [current deficits]: 69 yo s/p cystectomy w/ ileal conduit, generalized weakness, port infusing, G-tube, generalized weakness, 2 or more active medical diagnosis ?? Assistance [level of assistance required for transfers and ambulation]: 1 A w/ FWW ?? Supervision [direct monitoring required during toileting and ADLs]: eyes on ?? Surveillance [continuous indirect monitoring]: Nurse knowledge exchange, purposeful rounding, environmental modifications (waste basket is out of the path and the IV tubing and cords are free from the floor), fall reduction program in place, lighting adjusted for task, bed in low position, wheels lo cked, side rails up (x2), nonskid socks worn OOB, no restraints, call light is within reach at all times, assistive device, bed/chair alarm, [place] ID band on ?? Patient-specific fall prevention interventions for sensory deficits provided, if applicable: [X] N/A CPG GOAL OUTCOME EVALUATION: * Brief Op Note - Roberto Bradshaw DO - 02/28/2020 11:45 AM EDT INTERVENTIONAL RADIOLOGY BRIEF PROCEDURE NOTE Patient Name: Wally Aguilar : 1950 Case Date: 02/28/2020 Operators: Attending: Toño Carmichael MD Resident/Fellow/Student: Roberto Bradshaw DO Post-operative diagnosis/Indication: Poor oral intake Name of Procedure Performed: Planned procedure: Percutaneous GT placement Brief description of the procedure: ?? Fluoroscopic-guided 16 Fr balloon retained gastrostomy tube placement Findings of the procedure: ?? Gastrostomy tube in stomch EBL: <10 mL Specimens: _N/A_ Complications: No immediate Plan/Disposition: Gastrotomy tube may be used in 8 hours if bowels sounds have returned FULL PROCEDURE NOTE TO FOLLOW IN IMAGE REPORT * Plan of Care - Marcy Riojas RN - 02/28/2020 1:50 AM EDT Problem: Patient Care Overview Goal: Plan of Care Review Outcome: Ongoing (Interventions Implemented as Appropriate) 02/23/20 1700 02/27/20 2130 Plan of Care Review Progress progress toward functional goals is gradual -- Coping/Psychosocial Plan Of Care Reviewed With -- patient OUTCOME EVALUATION NOTE: ?? OUTCOME SUMMARY: Denies pain or nausea. He was very quiet, and withdrawn, and slept most of the night. Refused all medications. UOP adequate via urostomy. Urine is yellow with mucous threads. Minimal PO intake this shift. He walked to the bathroom x2, no bowel movement. NPO since midnight for procedure in the morning. Will continue to monitor. ?? PLAN MOVING FORWARD: G tube placement in the morning Monitor for pain Encourage OOB ?? INDIVIDUALIZED FALL PREVENTION INTERVENTIONS: High Risk ?? Patient-specific fall risk factors per assessment: [current deficits]: Recent Surgery, weakness, drain ?? Assistance [level of assistance required for transfers and ambulation]: 1A with FWW ?? Supervision [direct monitoring required during toileting and ADLs]: Hands on ?? Surveillance [continuous indirect monitoring]: Bed/chair alarm, masimo, hourly rounding, room near unit station, NKE at bedside, yellow fall band on, environmental modifications (clutter-free environment, tubing secured, bed low, lighting adjusted, nonskid socks when OOB, bed wheels locked, call light with in reach, upper side rails x2, ID bands on) ?? Patient-specific fall prevention interventions for sensory deficits provided, if applicable: [X] N/A ? CPG GOAL OUTCOME EVALUATION: ?? * Plan of Care - Soniya Moss RN - 02/27/2020 5:32 PM EDT OUTCOME EVALUATION NOTE: OUTCOME SUMMARY: Pt denied pain throughout the shift. Pt tolerating small amounts of regular diet, declined breakfast, ate a strawberry ice cream for lunch, and a few bites of soup for dinner, snacks offered between meals but declined. Pt OOB to chair w/ OT today, and ambulated to bathroom x1, encouraged pt to stayin chair longer I just want to get back to bed. Pt inct of loose stool x2, and got OOB to bathroom for a third stool. Psych in to see pt this afternoon. PLAN MOVING FORWARD: Monitor pain, encourage OOB and ambulation, encourage PO intake, NPO @ 0000 for G-tube placement tomorrow, hold am lovenox, d/c planning INDIVIDUALIZED FALL PREVENTION INTERVENTIONS: High Fall Risk Patient-specific fall risk factors per assessment: [current deficits]: 69 yo s/p cystectomy w/ ileal conduit, generalized weakness, port infusing, generalized weakness, 2 or more active medical diagnosis Assistance [level of assistance required for transfers and ambulation]: 1 A w/ FWW Supervision [direct monitoring required during toileting and ADLs]: eyes on Surveillance [continuous indirect monitoring]: Nurse knowledge exchange, purposeful rounding, environmental modifications (waste basket is out of the path and the IV tubing and cords are free from the floor), fall reduction program in place, lighting adjusted for task, bed in low position, wheels lo cked, side rails up (x2), nonskid socks worn OOB, no restraints, call light is within reach at all times, assistive device, bed/chair alarm, [place] ID band on Patient-specific fall prevention interventions for sensory deficits provided, if applicable: [X] N/A CPG GOAL OUTCOME EVALUATION: * Plan of Care - Nima George OTA - 02/27/2020 3:24 PM EDT Occupational Therapy Treatment Note Treatment Number OT: 4 Patient Dx: Wally Aguilar??is a 69 y.o.??male??with??PMH of asthma, hypertension, bilateral lower extremity claudication, hyperlipidemia and bladder cancer??who is??POD2??s/p cystoprostatectomy withileal conduit for MIBC.??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 ?? Past Medical History[]?Expand by Default ? Past Medical History: Diagnosis Date ??? Asthma ? Cancer ? kidney ??? Chronic pain ? right calf paiins him since his hip surgery ??? COPD (chronic obstructive pulmonary disease) ? pt has asthma but states he does not have copd or emphysema ??? Delayed emergence from anesthesia ? GERD (gastroesophageal reflux disease) ? Hypertension ? Intraoperative complication ? during his only surgery (hip from a fall off a doroteo) in 1990 [place] he woke up during the procedure ??? PAD (peripheral artery disease) ? Peptic ulcer disease ? Seizure ? last seizure was 20 years ago ~ suffered from epilepsy but does not seem to be an issue anymore ??? Status post chemotherapy ? just had 8 weeks pf treatments 3 weeks ago ??? Transfusion history ? does not know ??? Urolithiasis ? Vertigo ? balance problems only from the left leg being longer than the right leg from his hip surgery ?? Past Surgical History[]?Expand by Default ? Past Surgical History: Procedure Laterality Date ??? AORTO-ILIAC BYPASS GRAFT ? endarterectomy ??? CT GUIDED BIOPSY LYMPH NODE(CHEST/ABD/PELVIS) ?? 01/31/2020 ?? CT Guided Biopsy Lymph Node (Chest/Abd/Pelvis) 01/31/2020 [facility] RAD CAT SCAN ??? HIP FRACTURE SURGERY Right 1991 ??? INGUINAL HERNIA REPAIR Right ? IR MEDIPORT PLACEMENT/EXCHANGE ?? 11/27/2019 ?? IR Mediport Placement 11/27/2019 Jason Lujan, NAHID [facility] INTERVENTIONL RAD ??? PRO CYSTECTOMY, ILEAL CONDUIT/SIGMOID BLADDER N/A 02/13/2020 ?? @CYSTECTOMY, COMPLETE, WITH ILEAL CONDUIT (WRVU 36.33) performed by Nima Armstrong MD at [facility] OR ??? PRO NEEDLE BIOPSY LIVER N/A 02/13/2020 ?? LIVER BIOPSY performed by Nima Armstrong MD at [facility] OR ??? PRO REMOVE PELVIS LYMPH NODES Bilateral 02/13/2020 ?? @LYMPHADENECTOMY, PELVIC, INCLUDING MULTIPLE NODES-FELA (WRVU 14.06) performed by Nima Armstrong MD at [facility] OR ? Social History: Patient lives??with a roommate Home Setup:??2nd floor apt with full FOS to enter. Bathroom with tubshower Baseline ADL/Mobility:??Pt is independent with ADLs at baseline and ambulates with straight cane. He does not drive but is able to walk to nearby shops.? Precautions/Special Considerations: ambulate, urostomy, DARYN drain, , midline incision, port, fall risk S: I can feel I have to go to the bathroom sometimes, sometimes I can't. O: Patient seen for skilled OT treatment, and demonstrated the following: ?? Self-care & Functional Mobility: ?? Pt incontinent of BM in bed when therapy began. ?? Pt was able to assist with clean up by rolling L and R in bed. ?? Pt was able to hike socks up while supine in bed with VC ?? Supine to sitting EOB: log roll to L side then sat up with CGA ?? Sit to stand: SBA with FWW ?? Pt able to take a few step from bed to recliner with CGA and FWW ?? Stand to sit: SBA with VC to decent slowly ?? Pt educated on energy conservation and issued hand out. Will review and educated again next session. ?? Cognition: ?? Behavior / Mood: alert, cooperative and flat affect ?? Alert and oriented to: person, place, time and situation ?? Follows commands: multi step and 100% of the time ?? Attention: WFL ?? Safety awareness: WFL ?? Vision: WFL ?? Endurance: Fatigued easily with activity ?? Vitals: Stable on RA ?? Strength/ROM: Deconditioned Pain: pt did not c/o pain at this time Education: Pt/family/caregiver education ongoing regarding: Role of occupational therapy/rehabilitation, Transfers, Assistive device/technique, ADL, Positioning, Safety, Precautions/Protocol, Functional Mobility, Activity pacing/Energy conservation and Balance. Staff Communication: Patient status, treatment, and mobility recommendations discussed with nursing/other staff. ASSESSMENT: Patient seen this afternoon for skilled OT. Session focussed on BM hygiene, pt education and functional mobility. Pt was able to follow commands and answer questions with increased time and minimal repetition. Pt was very incontinent in bed and required Max A for hygiene. Pt demonstrated good improvement with his functional mobility. Pt stated he could feel when he needed to go to [facility] sometimes, pt was issued a bedside commode for times when he knew he had to go but time was a concern. Pt will benefit from ongoing therapeutic interventions to achieve pt's and therapy goals Anticipated Discharge Disposition: [facility] facility/swing bed Equipment Recommendations: TBD ?? Daily schedule / Staff Recommendations: OOB to chair for meals,??ambulate as tolerated with FWW Encourage participation in ADL's by providing set up A on tray table and physical assist only as needed Occupational Therapy Goals: To be achieved by??02/28. Pt will perform seated shower with conditional independence Pt will stand at sink to brush teeth and wash face with conditional independence Pt will dress LB with conditional independence Pt will perform all aspects of toileting with conditional independence Pt will ambulate household distance with conditional independence and use of LRD Pt will demonstrate understanding of 2-3 energy conservation/pacing techniques for use during ADL/IADL tasks ?? Therapy Frequency: 2-3 times/wk Total Evaluation Minutes, Occupational Therapy: 25 Pager: [phone] ANTWON Ng Occupational Therapy Rehabilitation Department * Consult Note - Zachary Hurley Virgen - 02/27/2020 2:32 PM EDT Psychiatric Initial Inpatient Consultation Note Time of Consultation: 2 PM Time Spent: 60 minutes Information Sources: Patient. Electronic Medical Record. This patient was discussed with Dr. Johnson. See his note for confirmatory and/or revisionary documentation. Reason for consultation: I have been asked by attending physician Dr. Armstrong to see Wally Aguilar for recommendations regarding evaluation of hypoactive delirium vs. depression and I have outlined my findings and recommendations in this report. History of Present Illness: Patient is a 69 YO M with history of bladder cancer (s/p recent chemotherapy), malnutrition, HTN, HLD, peripheral vascular disease, and asthma who presented to [facility] for cystoprostatectomy with ileal conduit on 02/12. His hospital course has been complicated by low appetite (for which marinol was recently started), daytime somnolence, and infectious diarrhea. BIT team was initially consulted to provide motivational interviewing. Psychiatry is now consulted to evaluate for depression vs. hypoactivedelirium and provide recommendations regarding management. On interview, the patient is sitting upright in a chair. He appears quite tired, and his eyes are closing at points during the interview, however he is fully able to attend the conversation. At times, there is increased latency in his responses to questions. The patient is oriented to person, place, time, and situation. He states that he had normal appetite prior to being hospitalized, but since his surgery has had decreased interest in eating, though he still derives pleasure from certain foods. His mood is alright, but when pressed he acknowledges that his mood is below its baseline in the setting of the cancer diagnosis, chemotherapy, and surgery. He has limited ways to cope with his st ressors, stating I just deal with it. In the context of low mood, he has also experienced decreased energy and daytime somnolence. He states that he has been sleeping ok but later notes frequently waking up at night and having trouble returning to sleep. The patient also has had passive thoughts of not wanting to wake up, but denies plan or intent and feels safe in the hospital. He denies symptoms of shawnee and psychosis, and neurologic issues such as headache/tremor/weakness. Past psychiatrichistory is unremarkable - denies prior hospitalizations, psychiatric diagnoses, or suicide attempts. He does have history of alcohol use disorder listed in the medical record, endorses drinking 4 drinks daily prior to admission. Otherwise denies recreational substance use. Psychiatric Review of Systems: Sustained Depressed Mood: Yes Sustained Elevated Mood: No Sustained Irritable Mood: No Flashbacks: No Nightmares: No Panic Attacks: No Chronic Worry: No Psychotic Symptoms: No Obsessions/compulsions: No Violence: No Self Harm: No Past Psychiatric History: Prior diagnoses: Alcohol use disorder (from chart review) Past hospitalization and location: None OP Team: None Suicide attempts: Denies Past psychiatric medications: None Substance Use History/Treatment: Alcohol: reported history of alcohol use disorder in chart. Patient endorses remote DUI. He reportsdrinking ~4 drinks daily (beer and amara). Cigarettes: 2 ppd smoker Denies recreational drug use Problem List: Patient Active Problem List Diagnosis Code ??? Malignant neoplasm of overlapping sites of bladder C67.8 ??? 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 Ostomy nurse consultation Z71.89 ??? HTN (hypertension) I10 ??? PVD (peripheral vascular disease) I73.9 ??? Alcohol abuse F10.10 ??? Smokes 2 packs of cigarettes per day F17.210 ??? HLD (hyperlipidemia) E78.5 ??? COPD, moderate J44.9 ??? Weight loss, abnormal R63.4 ??? Limited literacy Z55.0 ??? Port-A-Cath in place Z95.828 ??? Bladder cancer C67.9 ??? Tobacco use disorder F17.200 ??? Severe protein-calorie malnutrition E43 Past Medical/Surgical History: Past Medical History: Diagnosis Date ??? Asthma ??? Cancer kidney ??? Chronic pain right calf paiins him since his hip surgery ??? COPD (chronic obstructive pulmonary disease) pt has asthma but states he does not have copd or emphysema ??? Delayed emergence from anesthesia ??? GERD (gastroesophageal reflux disease) ??? Hypertension ??? Intraoperative complication during his only surgery (hip from a fall off a doroteo) in 1990 in [place] he woke up during the procedure ??? PAD (peripheral artery disease) ??? Peptic ulcer disease ??? Seizure last seizure was 20 years ago ~ suffered from epilepsy but does not seem to be an issue anymore ??? Status post chemotherapy just had 8 weeks pf treatments 3 weeks ago ??? Transfusion history does not know ??? Urolithiasis ??? Vertigo balance problems only from the left leg being longer than the right leg from his hip surgery Past Surgical History: Procedure Laterality Date ??? AORTO-ILIAC BYPASS GRAFT endarterectomy ??? CT GUIDED BIOPSY LYMPH NODE(CHEST/ABD/PELVIS) 01/31/2020 CT Guided Biopsy Lymph Node (Chest/Abd/Pelvis) 01/31/2020 [facility] RAD CAT SCAN ??? HIP FRACTURE SURGERY Right 1991 ??? INGUINAL HERNIA REPAIR Right ??? IR MEDIPORT PLACEMENT/EXCHANGE 11/27/2019 IR Mediport Placement 11/27/2019 Jason Lujan PA [facility] INTERVENTIONL RAD ??? PRO CYSTECTOMY, ILEAL CONDUIT/SIGMOID BLADDER N/A 02/13/2020 @CYSTECTOMY, COMPLETE, WITH ILEAL CONDUIT (WRVU 36.33) performed by Nima Armstrong MD at [facility] LYNETTE ??? PRO NEEDLE BIOPSY LIVER N/A 02/13/2020 LIVER BIOPSY performed by Nima Armstrong MD at [facility] MAIN OR ??? PRO REMOVE PELVIS LYMPH NODES Bilateral 02/13/2020 @LYMPHADENECTOMY, PELVIC, INCLUDING MULTIPLE NODES-FELA (WRVU 14.06) performed by Nima Armstrong MDat [facility] MAIN OR Medications: Current Facility-Administered Medications Medication Dose Route Frequency Provider Last Rate Last Dose ??? azithromycin (Zithromax) (40 mg/mL) oral liquid 500 mg 500 mg Oral Daily Roselia Castro PA 500 mg at 02/27/20 1151 ??? TPN Adult Intravenous Cyclic Roselia Castro PA ??? dronabinoL (Marinol) capsule 2.5 mg 2.5 mg Oral BID Roselia Castro PA 2.5 mg at 02/27/20 0816 ??? nitazoxanide (ALINIA) tablet 500 mg 500 mg Oral Q12H [facility] Nima Armstrong MD 500 mg at 02/27/20 0817 ??? pantoprazole EC (Protonix) tablet 40 mg 40 mg Oral BID Froilan Moore MD 40 mg at 02/27/20 0817 ??? miconazole nitrate (REMEDY PHYTOPLEX) 2 % ointment Topical (Top) BID La Jean-Baptiste MD ??? acetaminophen (Tylenol) tablet 1,000 mg 1,000 mg Oral Q8H PRN La Jean-Baptiste MD ??? phenol 1.4% (CHLORASEPTIC) spray 1 spray 1 spray Oral Q2H PRN Roselia Castro PA ??? calcium carbonate (Tums) chewable tablet 500-1,000 mg 500-1,000 mg Oral Q4H PRN Roselia Castro PA 500 mg at 02/24/20 1735 ??? lidocaine (LIDODERM) 5 % patch 3 patch 3 patch Transdermal Q24H Dariela Fitch MD 3 patch at 02/26/20 1548 And ??? lidocaine (LIDODERM) 5 %(700 mg/patch) Patch Removal 1 patch Transdermal Q24H Dariela Fitch MD ??? enoxaparin (LOVENOX) injection 40 mg 40 mg Subcutaneous Q24H [facility] La Jean-Baptiste MD 40 mg at 02/27/20 0818 ??? aspirin chewable tablet 81 mg 81 mg Oral Daily La Jean-Baptiste MD 81 mg at 02/27/20 0817 ??? albuteroL 90 mcg/actuation inhaler 2 puff 2 puff Inhalation 4 Times Daily La Jean-Baptiste MD 2 puff at 02/27/20 0817 ??? prochlorperazine (COMPAZINE) injection 10 mg 10 mg Intravenous Q6H PRN La Jean-Baptiste MD 10 mgat 02/26/20 1119 ??? atorvastatin (Lipitor) tablet 20 mg 20 mg Oral Daily Enrrique Patten MD 20 mg at 02/27/20 0816 ??? metoprolol succinate XL (Toprol-XL) tablet 25 mg 25 mg Oral Daily Enrrique Patten MD 25 mg at 02/27/20 0818 ??? sodium chloride 0.9 % (flush) flush 5 mL 5 mL Intravenous BID Enrrique Patten MD 5 mL at 02/27/20816 ??? sodium chloride 0.9 % (flush) flush 5-20 mL 5-20 mL Intravenous Q1 Min PRN Enrrique Patten MD ??? lidocaine (XYLOCAINE) 10 mg/mL (1 %) injection 3 mg 0.3 mL Subcutaneous Once PRN Enrrique Patten MD ??? traMADoL (Ultram) tablet 50 mg 50 mg Oral Q6H PRN Froilan Moore MD 50 mg at 02/25/202054 ??? varenicline (Chantix) tablet 1 mg 1 mg Oral BID Enrrique Patten MD 1 mg at 02/27/20 0816 Medical Review of Systems: Constitutional: denies fever, chills HEENT: denies sore throat Cardiovascular: denies chest pain Respiratory: denies dyspnea GI: +nausea, diarrhea. Denies vomiting, abdominal pain. /CHEMISTRY INSTRUCTOR: n/a (s/p cystectomy) Endocrine: denies diaphoresis Musculoskeletal: denies arthralgia Integumentary: denies rash Neurological: denies FREEMAN, tremor, weakness/numbness Hematologic/Lymphatic: No easy bruising or bleeding Allergic/Immunologic: No seasonal allergies or frequent infections Psychiatric: See above Social History: Lives independently, but has a friend who has been staying over the last two months who has been helpful. 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 Has a brother and sister in the area, sister visited during hospitalization after being out of touch for last 30 years. Family Medical/Psychiatric History: (mental illness, substance use, suicide) Denies FH of mental illness Extent of History Determination: Alirio # of descriptors, reviewed systems, PFS elements & level of hx with ? X? HPI Descriptors 1-3 1-3 4+ x 4+ Reviewed Systems 0 1 2-9 x 10 Past, Fam, Soc Hx 0 0 1 x 3 Level of Hx PF EPF D x C Physical Exam: Last value Range last 24 hrs Temperature Temp: 36.6 ??C (97.9 ??F) Temp: [36.6 ??C (97.9 ??F)-37 ??C (98.6 ??F)] Heart Rate Heart Rate: 82 Heart Rate: [75-82] Blood Pressure BP: 118/66 BP: (115-119)/(61-66) Respiratory Rate Resp: 27 Resp: [18-27] SpO2 SpO2: 97 % SpO2: [97 %-98 %] Neurological Exam: Cranial nerves II through XII intact Muscle Strength/Tone (note atrophy, abnormal movements): No tremor, myoclonus, or asterixis. 5/5 muscle strength bilaterally in UE/LE. Sensation grossly intact in UE/LE No cerebellar dysfunction noted Gait and Station: patient ambulates with use of walker Mental Status Evaluation: ?? Appearance: age appropriate male, in hospital garb, appropriately groomed, sitting upright in chair. ?? Behavior: no abnormal movements, calm and cooperative, fully able to attend interview though appears quite tired and his eyes close at points during conversation. ?? Speech: spontaneous, conversational speech. Low volume. Prolonged latency at times. ?? Language: fluent in Cypriot with no paraphasic errors. Non-profane ?? Mood: alright ?? Affect: dysphoric ?? Thought Process: linear, goal-directed ?? Associations: intact ?? Thought Content: +passive SI without plan or intent. Denies HI ?? Perception: not seen overtly responding to internal stimuli, no AH/VH ?? Orientation: oriented to person, place, date, situation ?? Attention/Concentration: attends well to interview ?? Cognition: intact repetition, abstraction. ?? Memory: remote memory is intact. 1/3 correct on delayed recall test. ?? Fund of Knowledge: age appropriate ?? Insight: fair ?? Judgment: fair Pertinent Diagnostic Testing: Last 3 wbc, hgb, hct plt Recent Labs 02/24/20 0205 02/22/20 0230 02/20/20 0204 WBC 8.0 9.6* 9.4 HGB 9.3* 9.7* 9.2* HCT 29.0* 28.5* 28.0* PLATELET 103* 97* 93* Last 3 Lytes Recent Labs 02/25/20 0202 02/24/20 0205 02/23/20 0155 NA 135 133* 136 K 4.7 4.7 4.8 CL 102 104 103 CO2 23 21* 21* BUN 39* 34* 33* CREATININE 0.75* 0.71* 0.75* Last 3 LFTs Recent Labs 02/20/20 0204 01/15/20 1237 10/05/19 1431 AST 32 8 16 ALT 39 8 18 ALKPHOS 100 164* 172* BILITOT 0.2 0.2 0.3 BILIDIR 0.1 -- -- Last 3 Ca, Mg, Phos Recent Labs 02/25/20 0202 02/24/20 0205 02/23/20 0155 02/21/20 0155 CALCIUM 8.0* 7.7* 7.5* < > 7.2* PHOS -- 4.5 3.8 -- 3.3 MAGNESIUM -- 1.00 1.04 -- 0.90 < > = values in this interval not displayed. Last 3 Coags No results for input(s): PT, INR, PTT in the last 168 hours. Last 3 ProBNP, Trop, CK No results for input(s): CK, TROPONINT, PROBNP in the last 168 hours. Last 3 TFT Recent Labs 01/25/20 1238 TSH 0.82 Last 3 Lipids Recent Labs 01/25/20 1238 CHLPL 248 HDL 56 LDLCHOL 167 TRIG 126 Last 3 HgbA1C No results for input(s): HA1C in the last 7068 hours. UA:No results found for: COLOR, CLARITY, GLUCOSEU, PROTEINUADIP, BILIRUBINUA, UROBILIUADIP, PHUADIP, SPGRAVITYUA, BLOODUADIP, KETONESUA, NITRATEUA, LEUKOESTERUA, WBCUA, RBCU, BACTERIAUA, SQUAMEPIUA, HYALCAST, CULTUREREFLX Test: No results found for: HCGQUAL, HCGQUANT Urine Tox: No results found for: UBARBSCRN, UBENZOSCRN, UCOCAINESCR, UMETHMETSCRN, UOPIATESCRN, UCANNABSCRN, UOXYSCRN, UBUPRENORPHN, UFENTANYLSCR, UTRICYCLICS, UETHANOLSCRN, UAMPHETAMIN, SVTUADULTER Levels: No results found for: LITHIUM No components found for: DEPAKOTE No results found for: LITHIUM, CARBAMAZEPIN, VALPROATE, LAMOTRIGINE, CLOZAPINE No results found for: LITHIUM, CARBAMAZEPIN, VALPROATE, LAMOTRIGINE, CLOZAPINE EKG QTc: No results for input(s): QTCCALC, QRSDURATION in the last 720 hours. WBC WNL, Hgb stable, BMP & LFTs unremarkable except low albumin Extent of Exam Determination: Alirio completed bullets and level of exam with x. Bullets Completed 1-5 6-8 9+ x All Psych & Constitutional + 1 Musculoskeletal Level of Exam PF EPF D x C Assessment: Patient is a 69 YO M with history of bladder cancer (s/p recent chemotherapy), malnutrition, HTN, HLD, peripheral vascular disease, and asthma who presented to [facility] for cystoprostatectomy with ileal conduit on 02/12. Patient's presentation is inconsistent with hypoactive delirium, as he has intact consciousness and cognition and his mental status does not appear to be waxing & waning per nursing report/chart review. He does endorse decreased mood, appetite, energy, and motivation with passiveSI and sleep difficulties. Two goals are to improve his sleep and motivation/energy/appetite. Would recommend starting with melatonin 6 mg QHS to re-regulate his circadian rhythms. Can consider adding mirtazapine later to aid in sleep, depression, and appetite but its benefit will likely be delayed. For more immediate effect, would recommend starting methylphenidate 2.5 mg q6AM and qNoon tomorrow, which has the most evidence for providing increase in energy and motivation. If patient is more active during the day (and avoiding daytime naps), this will likely improve the quality of his sleep at night as well. Although in some cases methylphenidate can lead to appetite suppression (usually at significantly higher doses), in these particular cases where depression may be driving anorexia, stimulants appear to actuallyhave a beneficial effect. Would also check TSH, B12/folate, and vitamin D as all can drive depression. Primary Diagnosis: depression NOS Plan/Recommendations: - start methylphenidate 2.5 mg q6AM + 2.5 mg qNoon - start melatonin 6 mg QHS - will consider adding mirtazapine as adjunct at later date - consider obtaining TSH, B12, folate, and vitamin D levels - psychiatry will continue to follow - page Consult Psychiatry (#[phone]) for any additional questions or concerns Recommendations were communicated to primary steamship agent. Coding Determination Complexity of MDM Determination: Alirio appropriate # of Dx, Amt, complexity of date, Risk, & corresponding level of MDM with x.2 out of 3 elements in row must be met to qualify. # of Possible Diagnoses or Management Options Amount and/or Complexity of Data Risk of Complications, Morbidity, and or Mortality Type of Decision Making Minimal Minimal/None Minimal Straightforward Limited Limited Low Low Multiple Moderate Moderate Moderate x Extensive x Extensive x High x High Inpatient Consult Service Code Determination: Alirio Hx, Exam, MDM & LAUREN/CPT Code with ? X? . All wilson components in the row must be met to qualify for a given code. HISTORY EXAM MDM LAUREN / CPT CODE PF PF Straightforward 3200 / 75621 EPF EPF Straightforward 3210 / 55549 D D Low 3220 / 06370 C C Moderate 3230 / 70076 x C x C x High x 3240 / 21047 Associated attestation - Odilon Negrete MD - 03/11/2020 3:58 PM EDT Psychiatry Attending Note I discussed the case with the resident, and saw and evaluated the patient (on 02/26) within 24 hoursof the service described in the resident's note. I reviewed the patient???s history during the visit and I agree with the details as written. My exam confirms the resident's findings. The assessment and plan were formulated in discussion with me and I agree with them as documented. Major issues addressed/discussed: 69M with complex medical hx as below including bladder cancer s/pchemo, admitted for cystoprostatectomy with ileal conduit. His current presentation is consistent with hypoactive delirium but also prominent depressive features; he is very withdrawn and slowed. Agree with work-up recommended below by Dr Hurley, also consider melatonin to help normalize sleep/wake cycle and start methylphenidate as below to help pt with energy, appetite, etc. 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 Pt discussed withwriter his current mood and lack of appetite. He denied any notable depressed mood, although acknowledged being tired of being at [facility] and wanting to go home to see his candy Chicas. He acknowledged sometimes thinking about no longer living, however denied any SI, and stated that he wants to live and be able to enjoy himself (go fishing and go on walks with roommate Khoa Ramirez). He stated that he was not sure why he has not currently been eating much other than he has not been feeling hungry. Pt stated that going forward he would try to make an effort to eat more. Cad Operator discussed with pt the possibility of his meeting with psychiatry to explore possible options to help him feel more hopeful, engaged, and less tired. Pt stated that he would be open to doing so. Cad Operator explored with pt his current community supports. Pt identified his roommate as being his primary support, but also reported getting on well with his neighbours. He briefly discussed his familyas well, and reported having been visited by his sister over the weekend. Cad Operator discussed with pt reported plans for roommate to move out and get his own place. Pt was fairly noncommittal although acknowledged that he did enjoy the company. Cad Operator and pt engaged in brief test of attention/cognition with pt having to repeat back set s of numbers either forwards and backwards. Pt was able to repeat back correctly up to four digits forwards, but struggled with repeating back five in the correct order. He also struggled to repeat back three digits backwards in the correct order. Cad Operator ended session at this time as pt presented as becoming increasingly somnolent. Pt requested to end session at this time as he was becoming increasinglytired. Assessment: Pt presented as passive with a flat affect. While he provided fairly detailed responses to questions, he did not ask any questions or initiate any discussion himself. Pt speech was quiet/mumbled, andhe made no eye contact Thought processes were generally goal-directed, although at times somewhat ci rcumstantial. Pt's inability to repeat back 5 numbers in order/3 numbers in order backwards suggestsome possible attention/cognitive issues. It should be noted however that pt was presenting as becoming increasingly tired throughout the discussion, which may have impacted his responses. He responded positively to redirection however. While he acknowledges some sense of hopelessness, at times thinking about his no longer living, he adamantly denies experiencing any SI and states that he wants to be able to enjoy life. He misses his bird and his roommate, and reports that he is looking forwardto spending time with them again. Pt demonstrates little insight into his low mood or lack of interest in eating. He recognizes that he needs to eat however and agreed to make more of an effort to doso. Given pt's lack of appetite, flat affect, and difficulty with attention/cognitive test lead technical writer has contacted urology team to recommend a referral for a psych assessment. Pt has indicated that he would be open to meeting with psychiatry to explore options for addressing his low mood and lack of appetite. Interventions delivered: Supportive therapy Plan: 1) Pt will meet with psychiatry for consult to explore current mood, energy, and eating issues 2) Pt will make more conscious effort to eat meals provided 3) BRITTNI AGUILA will follow up with pt later this week to check in regarding overall mood and coping Medication Assisted Treatment Plan (select yes if referral reason indicates AUD, OUD or ULISSES - other): No medication assisted treatment plan needed. Discharge Planning Needs: psychotherapy referral Time spent with the patient (min):30 minutes Time spent on case coordination (min): 15 minutes * Consult Note - Nuria Nixon RN - 02/27/2020 1:10 PM EDT Certified Wound Care Nurse Note Situation: Seeing Wally Aguilar as a follow up for scrotal edema and breakdown. Background: eD-H notes reviewed for history, admitting diagnosis and active problem list. Discussedpatient with RN. RN reports that patient is having less frequent stools and less scrotal swelling. Wound Assessment and Care Provided: Patient sitting up in bed, alert. Purpose for visit explained and permission given. Patient with flat affect and minimal response. Scrotum much less swollen than last week. No skin breakdown and skin with mild erythema. Gerson Score: 19 Last Pressure Ulcer Prevention assessment: Shift Pressure Injury Prevention Occiput: No Injury Thoracic Spine: No Injury Sacral: No Injury Ischial - left: No Injury Ischial - right: No Injury Heel - left: No Injury Heel - right: No Injury Elbow - left: No Injury Elbow - right: No Injury Device Sites: O2 sat monitor, SCD's/venodynes, IV sites Other Sites: Urostomy Nutritional Status Wt Readings from Last 1 Encounters: 02/21/20 54.9 kg (121 lb) Body mass index is 19.53 kg/m??. Current bed: [facility] Assessment: resolving swelling and IAD to scrotum Wound Care Recommendations: Moisture: Follow a bowel and bladder schedule for incontinent patients and document. Cleanse skin gently after each incontinence episode with Shield Barrier wipes. Apply Z-Guard Skin Protectant Paste to denuded perianal skin bid and prn. Apply Hydraguard barrier cream to scrotum Use disposable air pads (white chux) to maintain dry skin and prevent fungal infections. Avoid adult diapers (including peripad) except when patient is out of bed to ambulate or in a chair. ?? Follow hospital standard for pressure injury prevention and skin care. Refer to adult/pediatric pressure injury prevention job aid in the clinical policy library. ?? Mobility: Turn and reposition every 2 hours and document in ED-H. Place a pillow above and below sacral area to off load pressure to the sacrum Offload pressure from heels by placing pillows lengthwise beneath legs while in bed. Offload pressure from heels by adjusting length of foot of bed. ?? Wound care consult will be completed at this time. If the above plan of care is not effective or the patient develops new skin issues/concerns please reconsult. Discussed plan with: /OMAR/PA: RN: soniya Please contact Nuria Nixon RN on pager [phone] or the wound care team at [phone] or pager [phone] with skin and wound care concerns or questions. * Plan of Care - Marcy Riojas RN - 02/27/2020 3:13 AM EDT Problem: Patient Care Overview Goal: Plan of Care Review Outcome: Ongoing (Interventions Implemented as Appropriate) 02/23/20 1700 02/26/20 1000 Plan of Care Review Progress progress toward functional goals is gradual -- Coping/Psychosocial Plan Of Care Reviewed With -- patient OUTCOME EVALUATION NOTE: OUTCOME SUMMARY: Patient resting between care. Denies pain. He continues to retch small amount of saliva when swallowing pills, denied feeling nauseous. UOP adequate via urostomy. Urostomy output is cloudy with MD sarah notified. Incontinent of loose stool. Minimal PO intake this shift. Will continue to monitor. PLAN MOVING FORWARD: Encourage PO intake Monitor for pain Cyclic TPN Encourage OOB INDIVIDUALIZED FALL PREVENTION INTERVENTIONS: High Risk Patient-specific fall risk factors per assessment: [current deficits]: Recent Surgery, weakness, drain Assistance [level of assistance required for transfers and ambulation]: 1A with FWW Supervision [direct monitoring required during toileting and ADLs]: Hands on Surveillance [continuous indirect monitoring]: Bed/chair alarm, masimo, hourly rounding, room near unit station, NKE at bedside, yellow fall band on, environmental modifications (clutter-free environment, tubing secured, bed low, lighting adjusted, nonskid socks when OOB, bed wheels locked, call light with in reach, upper side rails x2, ID bands on) Patient-specific fall prevention interventions for sensory deficits provided, if applicable: [X] N/A CPG GOAL OUTCOME EVALUATION: * Plan of Care - Elsy Haynes RN - 02/26/2020 4:35 PM EDT Problem: Skin Integrity Impairment, Risk/Actual (Adult) Goal: Skin Integrity/Wound Healing Patient will demonstrate the desired outcomes by discharge/transition of care. Outcome: Ongoing (Interventions Implemented as Appropriate) 02/22/20 1816 Skin Integrity Impairment, Risk/Actual (Adult) Skin Integrity/Wound Healing making progress toward outcome Problem: Patient Care Overview Goal: Plan of Care Review Outcome: Ongoing (Interventions Implemented as Appropriate) 02/23/20 1700 02/26/20 1000 Plan of Care Review Progress progress toward functional goals is gradual -- Coping/Psychosocial Plan Of Care Reviewed With -- patient OUTCOME EVALUATION NOTE: OUTCOME SUMMARY: ?? Patient denies pain but has been grimacing today with PO medication intake, began to retch into emesis bag but only saliva was output, IV compazine given x1, team paged and new order for marinol started. Patient received marinol pill this afternoon and began retching again into emesis bag, when asked if nausea or throat pain just replies, 'I don't know.' Encouraged patient to intake chocolate milk and coffee but opted for ice water only with meds. Overall, patient has expressed little interest in medications and nursing activities stating 'don't matter' for if he would like to use his inhaleror receive lidocaine patches. Adequate UOP from urostomy, stoma nurse bedside today to work with patient and change appliance, see note. Update: Patient requesting coke on ice from PT. PT got patient up to chair and reported small stoolincontinence in bed. ? PLAN MOVING FORWARD: ?? Encourage PO intake; Wean TPN to cyclic dose tonight Encourage OOB activities D/c planning ?? INDIVIDUALIZED FALL PREVENTION INTERVENTIONS: High Fall Risk ?? Patient-specific fall risk factors per assessment: [current deficits]:?Generalized weakness, drains/devices, IVF/TPN, intermittent pain, nausea ?? Assistance [level of assistance required for transfers and ambulation]:??Ax1 with FWW ?? Supervision [direct monitoring required during toileting and ADLs]:?Hands on ?? Surveillance [continuous indirect monitoring]:?Yes, Bed/Chair alarm, environmental modification (floor free of clutter, tubing secured), bed in low position, lighting adjusted for task/safety, nonskid slippers when out of bed, wheels locked, call light in reach, upper side-rails raised X2, ID bands on. ?? Patient-specific fall prevention interventions for sensory deficits provided, if applicable:?[X]N/A ?? CPG GOAL OUTCOME EVALUATION: Goal: Fall Prevention-Safe Patient Handling Outcome: Ongoing (Interventions Implemented as Appropriate) 02/26/20 1000 Daily Care Interventions Self-Care Promotion independence encouraged;BADL personal objects within reach Restraint Interventions Safety Promotion/Fall Prevention activity supervised;fall prevention program maintained;nonskid shoes/slippers when out of bed;safety round/check completed Activity Activity Type activity adjusted per tolerance Activity Assistance Provided assistance, 1 person Assistive Device Utilized front-wheel walker Positioning Body Position independent Bearden Fall Risk History of Falling 0 Secondary Diagnosis 15 Ambulatory Aids 15 Intravenous Therapy/Heparin/Saline Lock 20 Gait/Transferring 10 Mental Status 0 Score 60 OTHER Bearden Fall Risk High Goal: Infection Control Outcome: Ongoing (Interventions Implemented as Appropriate) 02/26/20 1000 Safety Interventions Isolation Precautions standard precautions maintained Infection Prevention environmental surveillance performed;equipment surfaces disinfected;personal protective equipment utilized;rest/sleep promoted;single patient room provided;visitors restricted/screened Coping Strategies Supportive Measures active listening utilized;decision-making supported;goal setting facilitated;positive reinforcement provided;problem solving facilitated;relaxation techniques promoted;self-care encouraged;self- responsibility promoted;verbalization of feelings encouraged Goal: Interdisciplinary Rounds/Family Conf Outcome: Ongoing (Interventions Implemented as Appropriate) 02/21/20 2242 Interdisciplinary Rounds/Family Conf Participants nursing;patient Problem: Nausea/Vomiting (Adult) Goal: Symptom Relief Patient will demonstrate the desired outcomes by discharge/transition of care. Outcome: Ongoing (Interventions Implemented as Appropriate) 02/22/20 1816 Nausea/Vomiting (Adult) Symptom Relief making progress toward outcome * Plan of Care - Grayson Dimas, PT - 02/26/2020 4:32 PM EDT Physical Therapy Note Treatment Number PT: 4 Patient profile: Wally Aguilar??is a 69 y.o.??male?admitted on 02/12 for??a cystoprostatectomy with ileal conduit for MIBC. DVT ruled out, pt has claudication RLE, multiple loose stools with some incontinence episodes.antibiotics for GI infection Interval History: bowel incontinence continues, declined rehab, remains on TPN, some nausea today. 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 Activity orders:??AAT ?? Mobility and Positioning Recommendations: ?? Pt. To use a rolling walker and contact guard for mobility with assist for lines and IV pole. ?? Encourage more walks daily. ?? Please encourage up to chair for meal times as able. Subjective: I don't know, when asked if he wanted the curtain open. Objective: Patient seen for physical therapy and demonstrated the following: Pain: No reports of pain, but flat affect. Vital Signs: Heart Rate: 77 BP: (per RN prior to PT 119/66) SpO2: 98 % O2 Device: None (Room air) ?? Pt in bed with industrial staff nurse present when PT arrived, some nausea after taking medication. ?? Flat affect, not very talkative. ?? With time and encouragement agreeable to work some with PT. ?? Supine to sit to left side of bed via rolling with extra time, contact guard and cues. Noted pt had been incontinent of stool, pt dependent for pericare in standing with walker for support. ?? Pt ambulated 18 ft with rolling walker with contact guard and assist with IV pole. ?? Once in front of recliner pt had a loss of balance and plopped to sit in recliner with contact guard. ?? Sit<->stand with supervision and cues for hand placement. ?? Sitting: deep breathing, AROM of LEs in sitting- ankle pumps, knee extension, hip flexion. ?? Pt left reclined in recliner with UEs supported on pillows and chair alarm on. ?? Education: Pt educated to continue ther-ex, repositioning, and to call for industrial staff nurse assistance withall mobility. Assessment: Wally Aguilar was seen today for physical therapy treatment session for continuation of POC. Pt presenting with a flat affect, some nausea after medication, and needed extra time and encouragement to work with PT. He continues to have issues with bowel incontinence and was dependent for pericare today. He needs a walker and one assist for safety with mobility, and cues for safety andhand placement with transfers. Pt lives alone, and is not safe to return alone at this time. Pt notvery talkative today, and d/c plan was not discussed today. Rn aware of pt's status. Pt left in recliner reclined with all needs in reach and chair alarm on. Will continue PT to safely progress pt's m obility and function while he remains in-house. Pt will benefit from ongoing therapeutic interventions to achieve therapy goals. Discharge Recommendations: Based on the current findings, Anticipated Discharge Disposition: inpatient rehabilitation facilitywhen medically ready for hospital discharge. Consult Recommendations: No other consults recommended at this time. Equipment needs: TBD Physical Therapy Goals: To be achieved by??02/28: -The BELOW GOALS remain ONGOING- ?? 1. Pt. to demonstrate knowledge of safety limitations and precautions and will appropriately request assistance for functional activities and to mobilize. 2. Pt. to perform bed mobility??independently. 3. Pt. to perform sit to stand transfers??with modified independence??using FWW. ?? 4. Pt. to ambulate??100??feet with modified independence?using FWW. 5. Pt. to ambulate up/down??12??step/stairs ??using ??one rail?with supervision. 6. Family or caregiver to demonstrate understanding of strategies to support patient for safe discharge home ?? Plan: Therapy Frequency: 2-4 times/wk for as outlined in initial evaluation. Patient agrees with plan as stated. Time IN / OUT: 1555 to 1632 Total Evaluation Minutes, Physical Therapy: 37(functional mobility) GRAYSON DIMAS, PT Pager:[phone] Physical Therapy Inpatient Rehabilitation Department * Consult Note - Romina Rice RN - 02/26/2020 10:31 AM EDT Images from the original note were not included. Inpatient post op note Diagnosis: Bladder Cancer Surgery/Date: 02/13/2020 Procedure(s) (LRB): @CYSTECTOMY, COMPLETE, WITH ILEAL CONDUIT (WRVU 36.33) (N/A) @LYMPHADENECTOMY, PELVIC, INCLUDING MULTIPLE NODES-FELA (WRVU 14.06) (Bilateral) LIVER BIOPSY (N/A) Appliance: Removed naveen 1 / with adapt ring and replaced with same Changed: [x} Yes Stoma: red, moist, protrudes and measures 1 / Peristomal Skin: intact and healthy Teaching: reviewed steps of pouch change Family Present: [x} No Family Member Present: 0 Psychosocial Acceptance: participated in pouch change Special Notes: He is very quiet, doesn't change facial expression ? Depressed? I asked him to remove old appliance and wash and dry stoma area and he did this with some coaching. He tried to cut out hole in wafer but was unable to do this so I did. He attached adapt ring to wafer and needed help doing this. I assisted with centering wafer over stoma and he pressed into place and then he attached pouch to wafer. He then connected urostomy pouch to lyles bag. He has quite a bit of creamy mucous in his urostomy pouch. He has 5 spare wafers/pouches/rings for discharge. Stoma * Plan of Care - Donte Bearden RN - 02/26/2020 4:34 AM EDT Problem: Patient Care Overview Goal: Plan of Care Review Outcome: Ongoing (Interventions Implemented as Appropriate) 02/23/20 1700 02/25/202054 Plan of Care Review Progress progress toward functional goals is gradual -- Coping/Psychosocial Plan Of Care Reviewed With -- patient OUTCOME EVALUATION NOTE: OUTCOME SUMMARY: Pain well controlled with prn Tramadol x1. VSS. Complaints of nausea this shift, no emesis, prn Compazine given x1 with stated good effect. Minimal PO intake, TPN continues to infuse. PO intake encourage throughout the night. Urostomy with adequate urine output, increased mucus in urostomy bag. Incontinent of small green BM x1 this shift. Patient rested well throughout the night. PLAN MOVING FORWARD: Monitor/manage pain, I&O's, monitor/manage nausea, encourage PO intake, encourage OOB, encourage ambulation, continue with current plan, discharge planning. INDIVIDUALIZED FALL PREVENTION INTERVENTIONS: High Fall Risk Patient-specific fall risk factors per assessment: [current deficits]: Tubes/drains, pain, pain medications, generalized weakness, PIV, Port Assistance [level of assistance required for transfers and ambulation]: 1 Assist with FWW Supervision [direct monitoring required during toileting and ADLs]: Hands on Surveillance [continuous indirect monitoring]: Yes, Bed/Chair alarm, environmental modification (floor free of clutter, tubing secured), bed in low position, lighting adjusted for task/safety, nonskid slippers when out of bed, wheels locked, call light in reach, upper side-rails raised X2, ID bandson. Patient-specific fall prevention interventions for sensory deficits provided, if applicable: [X] N/A CPG GOAL OUTCOME EVALUATION: Goal: Individualization & Mutuality Outcome: Ongoing (Interventions Implemented as Appropriate) 02/14/20 0807 02/15/20 1521 02/21/20 2242 Mutuality/Individual Preferences What Anxieties, Fears or Concerns Do You Have About Your Health or Care? no -- -- What Questions Do You Have About Your Health or Care? no -- -- What Information Would Help Us Give You More Personalized Care? -- my arm tremors are when I get cold -- Individualization Patient Specific Preferences -- -- -- Patient Specific Goals -- -- Decrease stool output 02/25/20 1833 Mutuality/Individual Preferences What Anxieties, Fears or Concerns Do You Have About Your Health or Care? -- What Questions Do You Have About Your Health or Care? -- What Information Would Help Us Give You More Personalized Care? -- Individualization Patient Specific Preferences Chocolate milk, [employer] coffee Patient Specific Goals -- Goal: Fall Prevention-Safe Patient Handling Outcome: Ongoing (Interventions Implemented as Appropriate) 02/25/202054 Daily Care Interventions Self-Care Promotion independence encouraged Restraint Interventions Safety Promotion/Fall Prevention activity supervised;fall prevention program maintained;nonskid shoes/slippers when out of bed;safety round/check completed Activity Activity Type activity adjusted per tolerance;activity encouraged Activity Assistance Provided assistance, 1 person Assistive Device Utilized front-wheel walker Positioning Body Position independent Bearden Fall Risk History of Falling 0 Secondary Diagnosis 15 Ambulatory Aids 15 Intravenous Therapy/Heparin/Saline Lock 20 Gait/Transferring 10 Mental Status 0 Score 60 OTHER Telly Fall Risk High Goal: Infection Control Outcome: Ongoing (Interventions Implemented as Appropriate) 02/25/202054 Safety Interventions Isolation Precautions standard precautions maintained Infection Prevention single patient room provided;rest/sleep promoted;environmental surveillance performed Coping Strategies Supportive Measures active listening utilized;decision-making supported;goal setting facilitated;positive reinforcement provided;problem solving facilitated;relaxation techniques promoted;self-responsibility promoted;verbalization of feelings encouraged;self-reflection promoted;self-care encouraged Goal: Discharge Needs Assessment Outcome: Ongoing (Interventions Implemented as Appropriate) 02/14/20 1549 02/21/20 2242 Discharge Needs Assessment Concerns To Be Addressed -- adjustment to diagnosis/illness concerns;basic needs concerns;coping/stress concerns;decision making concerns;discharge planning concerns Readmission Within The Last 30 Days -- no previous admission in last 30 days Equipment Needed After Discharge -- walker, rolling Current Discharge Risk -- chronically ill Discharge Disposition still a patient -- Living Environment Transportation Available Medicaid transportation;family or friend will provide -- Activity/Self Care Review of Systems Equipment Currently Used at Home colostomy/ostomy supplies -- Current Health Anticipated Changes Related to Illness -- inability to care for self Goal: Interdisciplinary Rounds/Family Conf Outcome: Ongoing (Interventions Implemented as Appropriate) 02/21/202241 Interdisciplinary Rounds/Family Conf Participants nursing;patient * Plan of Care - Elsy Haynes RN - 02/25/2020 6:41 PM EDT Problem: Skin Integrity Impairment, Risk/Actual (Adult) Goal: Skin Integrity/Wound Healing Patient will demonstrate the desired outcomes by discharge/transition of care. Outcome: Ongoing (Interventions Implemented as Appropriate) 02/22/20 1816 Skin Integrity Impairment, Risk/Actual (Adult) Skin Integrity/Wound Healing making progress toward outcome Problem: Patient Care Overview Goal: Plan of Care Review Outcome: Ongoing (Interventions Implemented as Appropriate) 02/23/20 1700 02/25/20 1030 Plan of Care Review Progress progress toward functional goals is gradual -- Coping/Psychosocial Plan Of Care Reviewed With -- patient OUTCOME EVALUATION NOTE: OUTCOME SUMMARY: ?? Patient denying pain this shift. Still decreased appetite, reporting 'little' nausea, IV compazine given x1 with good effect. Patient had soft/loose green BM x1 today. Adequate UOP through urostomy. DARYN drain pulled today. Enforced lovenox education and patient self-administered. Declined most of meals but agreed to try chocolate milk. Will continue to monitor. ?? PLAN MOVING FORWARD: ?? Encourage PO intake; wean TPN OOB activities D/c planning ?? INDIVIDUALIZED FALL PREVENTION INTERVENTIONS: High Fall Risk ?? Patient-specific fall risk factors per assessment: [current deficits]: Generalized weakness, drains/devices, IVF/TPN, intermittent pain, nausea ?? Assistance [level of assistance required for transfers and ambulation]: Ax1 with FWW ?? Supervision [direct monitoring required during toileting and ADLs]: Hands on ?? Surveillance [continuous indirect monitoring]: Yes, Bed/Chair alarm, environmental modification (floor free of clutter, tubing secured), bed in low position, lighting adjusted for task/safety, nonskid slippers when out of bed, wheels locked, call light in reach, upper side-rails raised X2, ID bandson. ?? Patient-specific fall prevention interventions for sensory deficits provided, if applicable: [X] N/A CPG GOAL OUTCOME EVALUATION: Goal: Individualization & Mutuality Outcome: Ongoing (Interventions Implemented as Appropriate) 02/25/20 1833 Individualization Patient Specific Preferences Chocolate milk, [employer] coffee Goal: Fall Prevention-Safe Patient Handling Outcome: Ongoing (Interventions Implemented as Appropriate) 02/25/20 1030 Daily Care Interventions Self-Care Promotion independence encouraged;BADL personal objects within reach Restraint Interventions Safety Promotion/Fall Prevention activity supervised;fall prevention program maintained;nonskid shoes/slippers when out of bed;safety round/check completed Activity Activity Type activity adjusted per tolerance;activity encouraged Activity Assistance Provided assistance, 1 person Assistive Device Utilized front-wheel walker Positioning Body Position independent Bearden Fall Risk History of Falling 0 Secondary Diagnosis 15 Ambulatory Aids 15 Intravenous Therapy/Heparin/Saline Lock 20 Gait/Transferring 10 Mental Status 0 Score 60 OTHER Bearden Fall Risk High Goal: Infection Control Outcome: Ongoing (Interventions Implemented as Appropriate) 02/25/20 1030 Safety Interventions Isolation Precautions standard precautions maintained Infection Prevention environmental surveillance performed;equipment surfaces disinfected;personal protective equipment utilized;rest/sleep promoted;single patient room provided;visitors restricted/screened Coping Strategies Supportive Measures active listening utilized;decision-making supported;goal setting facilitated;positive reinforcement provided;problem solving facilitated;relaxation techniques promoted;self-care encouraged;self- responsibility promoted;verbalization of feelings encouraged Goal: Interdisciplinary Rounds/Family Conf Outcome: Ongoing (Interventions Implemented as Appropriate) 02/21/20 2242 Interdisciplinary Rounds/Family Conf Participants nursing;patient * Plan of Care - Donte Bearden RN - 02/25/2020 3:57 AM EDT Problem: Patient Care Overview Goal: Plan of Care Review Outcome: Ongoing (Interventions Implemented as Appropriate) 02/23/20 1700 02/24/202029 Plan of Care Review Progress progress toward functional goals is gradual -- Coping/Psychosocial Plan Of Care Reviewed With -- patient OUTCOME EVALUATION NOTE: OUTCOME SUMMARY: Patient with no complaints of pain this shift. VSS. Minimal PO intake overnight, TPN continues to infuse. Patient with complaints of nausea, compazine x1 with stated good effect, no emesis. Incontinent of large liquid stool x1, incontinence care provided. DARYN drain continues with serous output. Urostomy with adequate urine output. Rested well throughout the night. PLAN MOVING FORWARD: Monitor/manage pain, encourage PO intake, encourage OOB, encourage ambulation, I&O's, continue with current plan, discharge planning. INDIVIDUALIZED FALL PREVENTION INTERVENTIONS: High Fall Risk Patient-specific fall risk factors per assessment: [current deficits]: Generalized weakness, tubes/drains, recent surgery, pain Assistance [level of assistance required for transfers and ambulation]: 1 Assist with FWW Supervision [direct monitoring required during toileting and ADLs]: Hands on Surveillance [continuous indirect monitoring]: Yes, Bed/Chair alarm, environmental modification (floor free of clutter, tubing secured), bed in low position, lighting adjusted for task/safety, nonskid slippers when out of bed, wheels locked, call light in reach, upper side-rails raised X2, ID bandson. Patient-specific fall prevention interventions for sensory deficits provided, if applicable: [X] N/A CPG GOAL OUTCOME EVALUATION: Goal: Individualization & Mutuality Outcome: Ongoing (Interventions Implemented as Appropriate) 02/14/20 0807 02/15/20 1521 02/21/202241 Mutuality/Individual Preferences What Anxieties, Fears or Concerns Do You Have About Your Health or Care? no -- -- What Questions Do You Have About Your Health or Care? no -- -- What Information Would Help Us Give You More Personalized Care? -- my arm tremors are when I get cold -- Individualization Patient Specific Preferences -- -- Prefers to have blood drawn through implantded port Patient Specific Goals -- -- Decrease stool output Goal: Fall Prevention-Safe Patient Handling Outcome: Ongoing (Interventions Implemented as Appropriate) 02/24/20 0850 02/24/202029 Daily Care Interventions Self-Care Promotion independence encouraged;BADL personal objects within reach -- Restraint Interventions Safety Promotion/Fall Prevention -- activity supervised;fall prevention program maintained;nonskid shoes/slippers when out of bed;safety round/check completed Activity Activity Type -- activity adjusted per tolerance;activity encouraged Activity Assistance Provided -- assistance, 1 person Assistive Device Utilized -- front-wheel walker Positioning Body Position -- independent Bearden Fall Risk History of Falling -- 0 Secondary Diagnosis -- 15 Ambulatory Aids -- 15 Intravenous Therapy/Heparin/Saline Lock -- 20 Gait/Transferring -- 10 Mental Status -- 0 Score -- 60 OTHER Bearden Fall Risk -- High Goal: Infection Control Outcome: Ongoing (Interventions Implemented as Appropriate) 02/24/202029 Safety Interventions Isolation Precautions standard precautions maintained Infection Prevention single patient room provided;rest/sleep promoted;environmental surveillance performed Coping Strategies Supportive Measures active listening utilized;goal setting facilitated;decision- making supported;problem solving facilitated;positive reinforcement provided;self-care encouraged;relaxation techniquespromoted;self-reflection promoted;verbalization of feelings encouraged;self-responsibility promoted Goal: Discharge Needs Assessment Outcome: Unable to achieve outcome by discharge 02/14/20 1549 02/21/202241 Discharge Needs Assessment Concerns To Be Addressed -- adjustment to diagnosis/illness concerns;basic needs concerns;coping/stress concerns;decision making concerns;discharge planning concerns Readmission Within The Last 30 Days -- no previous admission in last 30 days Equipment Needed After Discharge -- walker, rolling Current Discharge Risk -- chronically ill Discharge Disposition still a patient -- Living Environment Transportation Available Medicaid transportation;family or friend will provide -- Activity/Self Care Review of Systems Equipment Currently Used at Home colostomy/ostomy supplies -- Current Health Anticipated Changes Related to Illness -- inability to care for self Goal: Interdisciplinary Rounds/Family Conf Outcome: Ongoing (Interventions Implemented as Appropriate) 02/21/20 2242 Interdisciplinary Rounds/Family Conf Participants nursing;patient * Plan of Care - Wendy King RN - 02/23/2020 5:05 PM EDT Problem: Patient Care Overview Goal: Plan of Care Review Outcome: Ongoing (Interventions Implemented as Appropriate) 02/23/20 1700 Plan of Care Review Progress progress toward functional goals is gradual Coping/Psychosocial Plan Of Care Reviewed With patient OUTCOME EVALUATION NOTE: OUTCOME SUMMARY: Mr. Aguilar has had multiple loose/liquid stools, some were episodes of incontinence. He worked withPT today. He did not have an appetite. TPN continued. PLAN MOVING FORWARD: Continue medication for infectious diarrhea Work with PT/OT INDIVIDUALIZED FALL PREVENTION INTERVENTIONS: bed alarm set, non-skid socks Patient-specific fall risk factors per assessment: [current deficits]: Generalized weakness, frequent stools Assistance [level of assistance required for transfers and ambulation]: One person with FWW Supervision [direct monitoring required during toileting and ADLs]: Hands on Surveillance [continuous indirect monitoring]: masimo Patient-specific fall prevention interventions for sensory deficits provided, if applicable: Glasses as needed CPG GOAL OUTCOME EVALUATION: * Plan of Care - Miller Alexis PT - 02/23/2020 3:15 PM EDT Physical Therapy Note Treatment Number PT: 2 Patient profile: Wally Aguilar??is a 69 y.o.??male?admitted on 02/12 for a cystoprostatectomy with ileal conduit for MIBC. DVT ruled out, pt has claudication RLE, multiple loose stools with some incontinence episodes.antibiotics for GI infection Interval History:, flexiseal d/c;d, diet advanced, still getting TPN, ongoing diarrhea , ambulatingwith nursing staff, PT/OT ?? 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 Mobility and Positioning Recommendations: ?? Pt. to utilize FWW and assist of 1 for ambulation and transfers with nursing. ?? Please encourage up to chair for meal times as able. ?? Pt encouraged to ambulate frequently with staff, getting into the bathroom for toileting and walking out in the tejeda >/= 3 times daily as able. ?? Subjective: I'm not hungry Objective: Patient seen for physical therapy and demonstrated the following: ?? Pain: sore abdomen ?? Vital Signs: HR 86bpm, SpO2 95-98% % on RA ?? Musculoskeletal: ROM: good ROM for pulling socks up in long sitting, Strength: generalized fatigue, cachectic, ??? Bed Mobility Supine to sit: supervision and increased time with HOB raised,uses bedrail Sit to Supine: able to raise LEs back into bed Scooting: min asst to boost higher in bed, Rolling to R/L: modified independent with bedrails ?? Transfers: Sit to Stand: cga asst to FWW Stand to Sit: cga and grab bar Bed to toilet: CGA with FWW, ?? Seated balance: Sitting Static: good on toilet Sitting Dynamic: fair held onto FWW/sink to be cleaned, assisted with donning and pulling up underwear ?? Standing balance: Standing Static: fair with FWW Standing Dynamic / Gait: fair with FWW, one episode of LOB when letting go of the FWW and reaching for the stair rail, required assist to recover. Gait:Pt ambulated~ 200 ft with FWW, CGA, step to gait on toes, unable to get foot flat, Education: discussion re: recommendation for rehab stay prior to returning home, safety, equipment use, importance of nutrition to support recovery Pt left supine in bed, boosted up higher, offered food or drink, pt agreeble only to ice water, bedalarm on, call vora within reach, all needs met, RN aware. Assessment: Wally Aguilar was seen today for physical therapy treatment session for continuation of POC. Pt is making gains with ambulation distance with FWW,requires increased time for all transitional movements, still requiring assist with hygiene with 2 episodes of loose stool during PT session. Initiated gait on stairs, fatigued after 3-4 steps, LOB when transitioning from FWW to stair rail.Will continue to work on flight of stairs and independent mobility with FWW. Pt declining inpatientrehab stay,Pt/career education teacher will speak with his friend tomorrow. Pt needs a FWW and home health, 01/02 assist at discharge if friend able to provide assist. Pt remains in house for management of diarrhea and nutrition/wean off TPN. Pt will benefit from ongoing therapeutic interventions to achieve therapy goals. Therapy Plan: 2-4x/wk for ambulation, stairs, therex, endurance activities as outlined in initial evaluation. Patient / family agrees with plan as stated. Discharge Recommendations: Based on current functional status and medical needs, recommend SWING bed prior at discharge.. Pt continues to want to work towards home discharge with assist of his friend. Discussed with PA, resident, and career education teacher. Equipment needs: Rolling walker, Physical Therapy Goals: To be achieved by 02/28: Ongoing ?? 1. Pt. to demonstrate knowledge of safety limitations and precautions and will appropriately request assistance for functional activities and to mobilize. 2. Pt. to perform bed mobility independently. 3. Pt. to perform sit to stand transfers with modified independence using FWW. 4. Pt. to ambulate 100 feet with modified independence using FWW. 5. Pt. to ambulate up/down 12 step/stairs using one rail with supervision. 6. Family or caregiver to demonstrate understanding of strategies to support patient for safe discharge home Time IN / OUT: 2:30-3:15 Total Evaluation Minutes, Physical Therapy: 45 TEF x 3 MILLER ALEXIS, PT Pager: [phone] Physical Therapy Inpatient Rehabilitation Department * Consult Note - Romina Rice RN - 02/23/2020 11:16 AM EDT Ostomy nurse note - looks exhausted. Current Naveen ostomy pouch is intact and there is moderateblood ringed mucous in pouch. Stoma is red and moist, stents out. Had him practice detaching and reattaching the lyles bag. Told him that when he is home he can keep lyles hooked up during night and disconnect during the day and he can rinse out lyles bag with vinegar water solution. Plan will be to change ostomy appliance on Wednesday and continue ostomy teaching. He said that he has a friend (? Roommate) that works during the day but will be available after work hours to help him at home. 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 ?? Past Medical History[]?Expand by Default ? Past Medical History: Diagnosis Date ??? Asthma ? Cancer ? kidney ??? Chronic pain ? right calf paiins him since his hip surgery ??? COPD (chronic obstructive pulmonary disease) ? pt has asthma but states he does not have copd or emphysema ??? Delayed emergence from anesthesia ? GERD (gastroesophageal reflux disease) ? Hypertension ? Intraoperative complication ? during his only surgery (hip from a fall off a doroteo[place] he woke up during the procedure ??? PAD (peripheral artery disease) ? Peptic ulcer disease ? Seizure ? last seizure was 20 years ago ~ suffered from epilepsy but does not seem to be an issue anymore ??? Status post chemotherapy ? just had 8 weeks pf treatments 3 weeks ago ??? Transfusion history ? does not know ??? Urolithiasis ? Vertigo ? balance problems only from the left leg being longer than the right leg from his hip surgery ?? Past Surgical History[]?Expand by Default ? Past Surgical History: Procedure Laterality Date ??? AORTO-ILIAC BYPASS GRAFT ? endarterectomy ??? CT GUIDED BIOPSY LYMPH NODE(CHEST/ABD/PELVIS) ?? 01/31/2020 ?? CT Guided Biopsy Lymph Node (Chest/Abd/Pelvis) 01/31/2020 [facility] RAD CAT SCAN ??? HIP FRACTURE SURGERY Right 1991 ??? INGUINAL HERNIA REPAIR Right ? IR MEDIPORT PLACEMENT/EXCHANGE ?? 11/27/2019 ?? IR Mediport Placement 11/27/2019 Jason Lujan, NAHID [facility] INTERVENTIONL RAD ??? PRO CYSTECTOMY, ILEAL CONDUIT/SIGMOID BLADDER N/A 02/13/2020 ?? @CYSTECTOMY, COMPLETE, WITH ILEAL CONDUIT (WRVU 36.33) performed by Nima Armstrong MD at [facility] OR ??? PRO NEEDLE BIOPSY LIVER N/A 02/13/2020 ?? LIVER BIOPSY performed by Nima Armstrong MD at [facility] OR ??? PRO REMOVE PELVIS LYMPH NODES Bilateral 02/13/2020 ?? @LYMPHADENECTOMY, PELVIC, INCLUDING MULTIPLE NODES-FELA (WRVU 14.06) performed by Nima Armstrong MD at [facility] OR ? Social History: Patient lives??with a roommate Home Setup:??2nd floor apt with full FOS to enter. Bathroom with tubshower Baseline ADL/Mobility:??Pt is independent with ADLs at baseline and ambulates with straight cane. He does not drive but is able to walk to nearby shops.? Precautions/Special Considerations: ambulate, urostomy, DARYN drain, , midline incision, port, fall risk S: I want to go back to bed O: Patient seen for skilled OT treatment, and demonstrated the following: ?? Self-care & Functional Mobility: Patient in chair agreeable to treatment. Sit to stand FWW Min A from recliner,Mod A from low chair, vcs for hand placement ?? Pt mobilized to/from bathroom FWW CGA ?? Pt sat in front of the sink completed facial hygiene,UB/LB bathing with set up increase time to complete,rest breaks prn ?? UB dressing Min A for gown secondary lines. Pt doned pants Min A to thread R foot seated,pt stood with FWW pulled up pants CGA. Pt doffed pants with SBA. Pt adjusted socks seated in chair ?? Stand to sit CGA. Min A for LE's to get into bed. ?? Pt left supine HOB elevated call vora in reach,bed alarm activated ?? Cognition: ?? Behavior / Mood: alert and cooperative ?? Alert and oriented to: person, place, time and situation ?? Follows commands: multi step and 100% of the time ?? Attention: WFL ?? Safety awareness: WFL ?? Vision: WFL ?? Endurance: Fatigued easily with activity ?? Vitals: Stable on RA ?? Strength/ROM: Deconditioned Pain: 02/18 abdominal area,RN notified Education: Pt/family/caregiver education ongoing regarding: Role of occupational therapy/rehabilitation, Transfers, Assistive device/technique, ADL, Positioning, Safety, Precautions/Protocol, Functional Mobility, Activity pacing/Energy conservation and Balance. Staff Communication: Patient status, treatment, and mobility recommendations discussed with nursing/other staff. ASSESSMENT: Patient mobilized to/from the bathroom FWW CGA,and participated in self care tasks in front of the sink with set up. Pt was limited by decreased endurance,stressed the importance of energy conservation techniques/pacing strategies. Encouraged pt to sit in recliner chair for meals and ambulate with nursing staff. Pt will benefit from rehab placment when medically ready to increase endurance and strength to increase independence with adls/Iadls. Pt will benefit from ongoing therapeutic interventions to achieve pt's and therapy goals Anticipated Discharge Disposition: [facility] facility/swing bed Equipment Recommendations: TBD ?? Daily schedule / Staff Recommendations: OOB to chair for meals,??ambulate as tolerated with FWW Encourage participation in ADL's by providing set up A on tray table and physical assist only as needed Occupational Therapy Goals: To be achieved by??02/28. Pt will perform seated shower with conditional independence Pt will stand at sink to brush teeth and wash face with conditional independence Pt will dress LB with conditional independence Pt will perform all aspects of toileting with conditional independence Pt will ambulate household distance with conditional independence and use of LRD Pt will demonstrate understanding of 2-3 energy conservation/pacing techniques for use during ADL/IADL tasks ?? Therapy Frequency: 2-3 times/wk Total Evaluation Minutes, Occupational Therapy: 28(Schmx2) Pager: [phone] ANTWON Mata Occupational Therapy Rehabilitation Department * Plan of Care - Carlos Manuel Maldonado RN - 02/22/2020 6:18 PM EDT Problem: Patient Care Overview Goal: Plan of Care Review Outcome: Ongoing (Interventions Implemented as Appropriate) 02/21/20 2242 02/22/20 0720 Plan of Care Review Progress progress towards functional goals is fair -- Coping/Psychosocial Plan Of Care Reviewed With -- patient ?? OUTCOME SUMMARY: ?? Patient rating pain at 3/10 this shift. Only lidocaine patches applied for pain relief. Lovenox teaching performed this morning with pt showing mild interest. OOB ambulating hallway with staff. Stents removed in urostomy and flexiseal removed late afternoon. Scrotum still red and swollen, scheduledmiconazole ointment applied. ?? PLAN MOVING FORWARD: ?? Incontinence care, monitor/manage pain, I&O's, encourage PO intake, encourage OOB, continue with current plan ?? INDIVIDUALIZED FALL PREVENTION INTERVENTIONS: High Fall Risk ?? Patient-specific fall risk factors per assessment: [current deficits]:??Weakness, tubes/drains, recent surgery, pain, pain medications, PIV, Port ? Assistance [level of assistance required for transfers and ambulation]:?1-2 Assist with FWW ?? Supervision [direct monitoring required during toileting and ADLs]:?Hands on ?? Surveillance [continuous indirect monitoring]:?Yes, Bed/Chair alarm, environmental modification (floor free of clutter, tubing secured), bed in low position, lighting adjusted for task/safety, nonskid slippers when out of bed, wheels locked, call light in reach, upper side-rails raised X2, ID bands on. ?? Patient-specific fall prevention interventions for sensory deficits provided, if applicable:?[X]N/A * Consult Note - Annette Escamilla RN - 02/22/2020 10:36 AM EDT Inpatient post op note Diagnosis: Bladder Cancer Surgery/Date: 02/13/20 Procedure(s) (LRB): @CYSTECTOMY, COMPLETE, WITH ILEAL CONDUIT (WRVU 36.33) (N/A) @LYMPHADENECTOMY, PELVIC, INCLUDING MULTIPLE NODES-FELA (WRVU 14.06) (Bilateral) LIVER BIOPSY (N/A) Appliance: Removed [place] 1 3/4 with adapt ring, replaced with the same - this has a nice seal Changed: [x} Yes Stoma: Red, budded, blue and red stents present, both have slow urine drip, but urine is flowing nicely out of the os. Stoma is ~1 1/4 round Peristomal Skin: Clear, intact, healthy Teaching: Reviewed pouch change. Patient was able to remove pouch, cleanse skin/stoma/stents, and center appliance over stoma with verbal cues only. He did require minimal hands on assist with tracing template (due to eyesight), cutting wafer, and snapping pouch on to flange. He is able to disconnect and reconnect to overnight drainage bag independently. I talked with him about ability to get pre-cut appliances in the future and possibly a one piece/convex, which would eliminate the difficulties he is currently having with the pouch change. Family Present: [x} No Psychosocial Acceptance: He is able to look at stoma and participate. Special Notes: Patient's green bag is stocked with 5 spare 1 3/4 and 5 rings. I think he would benefit from a pre-cut one-piece convex in the future. Stoma: * Plan of Care - Danie Callahan RN - 02/21/2020 10:51 PM EDT OUTCOME EVALUATION NOTE: OUTCOME SUMMARY: Patient tolerating a regular consistency but c/o poor appetite. He denies any nausea, SOB, or chestpain. TPN infusing through implanted port at 100ml/hr. Dressing and needle changed on day shift. LSdim but clear. Abdomen tender especially with palpation. 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 DARYN draining serous fluid. Dressing dry and intact. Flexiseal frequently leaking due to wateryconsistency of BMs. Pericare completed frequently through out the shift. Potassium recheck completed and is now WNL. Lab order frequency changed to daily. VSS. Shift total output: DARYN drain: 320ml Urostomy: 850ml FLexiseal: 425ml Important Labs: Potassium: 4.1 @0830 PLAN MOVING FORWARD: Monitor patient's VS, implanted port, potassium level, DARYN drain site and urostomy output closely. Check patient's flexiseal and skin frequently for moisture and apply barrier cream and antifungal lotions as directed for incontinence care. Encourage PO intake, ambulation, self care, frequent position changes, IS use, and verbalizing his needs. INDIVIDUALIZED FALL PREVENTION INTERVENTIONS: High Fall Risk Patient-specific fall risk factors per assessment: [current deficits]: ??Patient's current risk factors include: abdominal pain, implanted port, L PIV, left sided abdominal DARYN drain, diarrhea, flexiseal, urostomy, intermittent nausea, midline incision, uses an ambulatory aid, noted sensory deficits, and generalized weakness related to current medical status. Assistance [level of assistance required for transfers and ambulation]: 1 assist with FWW Supervision [direct monitoring required during toileting and ADLs]: Eyes on Surveillance [continuous indirect monitoring]: Bed/Chair alarm, yellow fall band, NKE at bedside, purposeful rounding, environmental modification (floor free of clutter, tubing secured), bed in low position, lighting adjusted for task/safety, nonskid slippers when out of bed, wheels locked, call light in reach, upper side-rails raised X2, ID bands on. Patient-specific fall prevention interventions for sensory deficits provided, if applicable: [X] Yes, glasses CPG GOAL OUTCOME EVALUATION: * Plan of Care - Carlos Manuel Maldonado RN - 02/21/2020 6:03 PM EDT Problem: Patient Care Overview Goal: Plan of Care Review Outcome: Ongoing (Interventions Implemented as Appropriate) 02/18/20 1433 02/21/20 0810 Plan of Care Review Progress progress towards functional goals is fair -- Coping/Psychosocial Plan Of Care Reviewed With -- patient ?? OUTCOME SUMMARY: ?? Patient rating pain at 2/10 in abdomen. Denying need for pain meds except for scheduled lidocaine patches. VSS, BS hyperactive. Flexiseal continues to produce green liquid stool. Q2 potassium runs scheduled all day with 1600 being last dose. 1930hrs to be potassium recheck. UOP from urostomy adequate this shift. Scrotum swollen and red, miconazole ointment applied this morning. Pt had a visit with psych and OT today. Pt unmotivated to get OOB, however this nurse encouraged pt to turn body frequently in order to avoid pressure sores. ?? PLAN MOVING FORWARD: ?? Incontinence care, monitor/manage pain, I&O's, encourage PO intake, encourage OOB, continue with current plan ?? INDIVIDUALIZED FALL PREVENTION INTERVENTIONS: High Fall Risk ?? Patient-specific fall risk factors per assessment: [current deficits]:??Weakness, tubes/drains, recent surgery, pain, pain medications, PIV, Port ? Assistance [level of assistance required for transfers and ambulation]:?1-2 Assist with FWW ?? Supervision [direct monitoring required during toileting and ADLs]:?Hands on ?? Surveillance [continuous indirect monitoring]:?Yes, Bed/Chair alarm, environmental modification (floor free of clutter, tubing secured), bed in low position, lighting adjusted for task/safety, nonskid slippers when out of bed, wheels locked, call light in reach, upper side-rails raised X2, ID bands on. ?? Patient-specific fall prevention interventions for sensory deficits provided, if applicable:?[X]N/A ?? * Consult Note - Clayton Norris MSW - 02/21/2020 3:52 PM EDT BIT Evaluation Referral source: Consult request by primary team physician Reason for referral: Other: coping, not interacting Relevant history: Pt reported that he is currently doing as well as can be expected, and that he is just trying to cope with the situation presented him as best he can. He stated that he is managing to care for his ostomy bag without to much difficulty, and is looking forward to eventually being able to go home so that he can do some fishing. Pt reported that he has been in touch with his roommate Boubacar, who is continuing to care for his pet bird Juan Francisco. He also stated that his landlord has been in touch, and that she is offering to help Boubacar get his own place. Pt reported having a very good relationship with her and stated that he wasnot concerned about losing his apartment, despite his limited income. Pt reported having a son and daughter, as well as another son from a prior relationship. He stated that he has a good relationship with two of his kids, but acknowledged that none has been in touch with him since his hospitalization. Pt did not indicated that he was particularly struggling with his mood at this time, although acknowledged that his situation was difficult and that he had not expected to still be hospitalized or tohave an ostomy bag. Pt stated that he tends to be a fairly quiet person in general, and that this is his regular mood. Pt requested to end session at this time as he was feeling very tired and needed to rest. He statedthat he would however be open to follow up later this week. Cad Operator agreed to follow up with him either or Wednesday. Assessment: Pt was lying in bed, was A&O, and open to meeting with BIT [employer] A[employer]IL[employer] SUPERVISOR. He presented as being calm and relaxed with congruent affect. He made only minimal eye contact, however responded to questions and provided additional information without undue prompting, at times smiling and making occasional jokes. He appeared to drift off/get lost in his thoughts at times, however was easily re engaged when add ressed. Speech was slow and at a soft volume. He is future oriented, reporting wanting to go fishing and spend time with Boubacar and Juan Francisco. It is unclear as to the extent of his support network at this time, as he reports not having been in touch with any family or friends other than his landlord and roommate of the last 4 months. Given the uncertainty around his baseline behaviour it is difficultto accurately assess how well he is coping with his current situation. Despite presenting affect and behaviour he reports that he is coping with his situation, he is somewhat hopeful and future-oriented, and is actively participating in his care. Cad Operator will continue to discuss with pt impact of cur rent health status, so as to provide more thorough assessment and explore how best to provide supportive services at this time. Interventions delivered: Supportive therapy Plan: 1) Cad Operator will follow up with pt again later this week to continue assessment and explore with pt how best to provide him with supportive services at this time. Medication Assisted Treatment Plan (select yes if referral reason indicates AUD, OUD or ULISSES - other): No medication assisted treatment plan needed. Discharge Planning Needs: psychotherapy referral Time spent with the patient (min):45 minutes Time spent on case coordination (min): 15 minutes * Plan of Care - Sravanthi Bautista OTA - 02/21/2020 3:14 PM EDT Occupational Therapy Treatment Note Treatment Number OT: 2 Patient Dx: Wally Aguilar??is a 69 y.o.??male??with PMH of asthma, hypertension, bilateral lower extremity claudication, hyperlipidemia and bladder cancer who is POD2??s/p cystoprostatectomy with ileal conduit for MIBC. 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 ?? Past Medical History[]Expand by Default Past Medical History: Diagnosis Date ??? Asthma ? Cancer ? kidney ??? Chronic pain ? right calf paiins him since his hip surgery ??? COPD (chronic obstructive pulmonary disease) ? pt has asthma but states he does not have copd or emphysema ??? Delayed emergence from anesthesia ? GERD (gastroesophageal reflux disease) ? Hypertension ? Intraoperative complication ? during his only surgery (hip from a fall off a doroteo) [place] 1990 [place] he woke up during the procedure ??? PAD (peripheral artery disease) ? Peptic ulcer disease ? Seizure ? last seizure was 20 years ago ~ suffered from epilepsy but does not seem to be an issue anymore ??? Status post chemotherapy ? just had 8 weeks pf treatments 3 weeks ago ??? Transfusion history ? does not know ??? Urolithiasis ? Vertigo ? balance problems only from the left leg being longer than the right leg from his hip surgery Past Surgical History[]Expand by Default Past Surgical History: Procedure Laterality Date ??? AORTO-ILIAC BYPASS GRAFT ? endarterectomy ??? CT GUIDED BIOPSY LYMPH NODE(CHEST/ABD/PELVIS) ?? 01/31/2020 ?? CT Guided Biopsy Lymph Node (Chest/Abd/Pelvis) 01/31/2020 [facility] RAD CAT SCAN ??? HIP FRACTURE SURGERY Right 1991 ??? INGUINAL HERNIA REPAIR Right ? IR MEDIPORT PLACEMENT/EXCHANGE ?? 11/27/2019 ?? IR Mediport Placement 11/27/2019 Jason Lujan PA [facility] INTERVENTIONL RAD ??? PRO CYSTECTOMY, ILEAL CONDUIT/SIGMOID BLADDER N/A 02/13/2020 ?? @CYSTECTOMY, COMPLETE, WITH ILEAL CONDUIT (WRVU 36.33) performed by Nima Armstrong MD at [facility] OR ??? PRO NEEDLE BIOPSY LIVER N/A 02/13/2020 ?? LIVER BIOPSY performed by Nima Armstrong MD at [facility] OR ??? PRO REMOVE PELVIS LYMPH NODES Bilateral 02/13/2020 ?? @LYMPHADENECTOMY, PELVIC, INCLUDING MULTIPLE NODES-FELA (WRVU 14.06) performed by Nima Armstrong MD at [facility] OR ?? Social History: Patient lives with a roommate Home Setup: 2nd floor apt with full FOS to enter. Bathroom with tubshower Baseline ADL/Mobility: Pt is independent with ADLs at baseline and ambulates with straight cane. [place] not drive but is able to walk to nearby shops. ?? Precautions/Special Considerations: ambulate, urostomy, DARYN drain, Flexiseal, midline incision, port, fall risk S: My lunch should be coming O: Patient seen for skilled OT treatment, and demonstrated the following: ?? Self-care & Functional Mobility: Pt supine upon arrival agreeable to treatment. Supine to sit eob Min A HOB elevated ?? Pt adjusted socks supine without assistance ?? Supine to sit Min A HOB elevated ?? Pt sat eob with good balance,declined grooming tasks ?? Sit to stand Min A FWW ?? Pt mobilized ~ 60 ft x2 CGA FWW plus one person to manage lines with 2-3 standing rest breaks ?? Pt stepped on/off scale x2 CGA/Min A FWW ?? Set up pt for lunch,pt was able to manage container tops,I with self feeding ?? Pt left in recliner with call vora and essentials in reach,chair alarm in place ?? Cognition: ?? Behavior / Mood: alert and cooperative,flat affect ?? Alert and oriented to: person, place and situation ?? Follows commands: multi step and 100% of the time ?? Attention: WFL ?? Safety awareness: WFL ?? Vision: WFL ?? Endurance: Fatigued easily with activity ?? Vitals: Stable on RA ?? Strength/ROM: Deconditioned Pain: 0/10 Education: Pt/family/caregiver education ongoing regarding: Role of occupational therapy/rehabilitation, Transfers, Assistive device/technique, Positioning, Safety, Precautions/Protocol, Functional Mobility, Activity pacing/Energy conservation and Balance. Staff Communication: Patient status, treatment, and mobility recommendations discussed with nursing/other staff. ASSESSMENT: Patient participated in functional mobility to increase endurance for adls. Pt was limited by decreased activity tolerance and strength.. Pt will benefit from ongoing therapeutic interventions to achieve pt's and therapy goals Anticipated Discharge Disposition: home with home health, home with assist Equipment Recommendations: TBD ?? Daily schedule / Staff Recommendations: OOB to chair for meals, ambulate as tolerated with FWW Encourage participation in ADL's by providing set up A on tray table and physical assist only as needed Occupational Therapy Goals: To be achieved by 02/28. Pt will perform seated shower with conditional independence Pt will stand at sink to brush teeth and wash face with conditional independence Pt will dress LB with conditional independence Pt will perform all aspects of toileting with conditional independence Pt will ambulate household distance with conditional independence and use of LRD Pt will demonstrate understanding of 2-3 energy conservation/pacing techniques for use during ADL/IADL tasks ?? Therapy Frequency: 2-3 times/wk Total Evaluation Minutes, Occupational Therapy: 26(Schmx2) Pager: [phone] ANTWON Mata Occupational Therapy Rehabilitation Department * Consult Note - Juventino Elena MD - 02/21/2020 11:32 AM EDT INFECTIOUS DISEASE CONSULTATION NOTE Reason for Consult: Cryptosporidiosis Campylobacter Consulting Service: Urology Consulting Attending: Nima Armstrong MD Admission Date: 02/13/2020 History of Present Illness: 69 y.o. male with a history of MIBC on cisplatin/gemcytabine, COPD, who was admitted on 02/12 for radical cystectomy/ileal conduit. Hospital stay has been complicated by diarrhea, sometimes up to 2L per day. He was initially on alvimopan after surgery, but was stopped on 02/14. Stool was positive for cr yptosporidium screen and campylobacter antigen, and negative for C.diff, giardia, shiga toxin, and stool culture. ID consulted for antibiotic recommendations. Patient is a poor historian. He believes that diarrhea started about 2 weeks ago, having loose bowel movements around 1-2x per day. Does not know whether they were bloody. No associated fever, chills, nausea, or vomiting. He does think that it has been getting worse over the hospitalization, but isunsure as he now has a rectal tube. No abdominal pain. He denies any ingestion of unclean water or raw meat. Believes that the water in his apartment building comes from the town rather than a well. Review of Systems: Pertinent positives and negatives noted in HPI. 14 point ROS otherwise negative Past Medical History: Past Medical History: Diagnosis Date ??? Asthma ??? Cancer kidney ??? Chronic pain right calf paiins him since his hip surgery ??? COPD (chronic obstructive pulmonary disease) pt has asthma but states he does not have copd or emphysema ??? Delayed emergence from anesthesia ??? GERD (gastroesophageal reflux disease) ??? Hypertension ??? Intraoperative complication during his only surgery (hip from a fall off a doroteo) in 1990 in [place] he woke up during the procedure ??? PAD (peripheral artery disease) ??? Peptic ulcer disease ??? Seizure last seizure was 20 years ago ~ suffered from epilepsy but does not seem to be an issue anymore ??? Status post chemotherapy just had 8 weeks pf treatments 3 weeks ago ??? Transfusion history does not know ??? Urolithiasis ??? Vertigo balance problems only from the left leg being longer than the right leg from his hip surgery Past Surgical History: Per chart review Pertinent prior to admission medications: No recent antibiotics Allergies: Allergies Allergen Reactions ??? Wellbutrin [Bupropion Hcl] Other (See Comments) Unknown on pt's chart from outside facility Family History: No history of cancer Social History: Lives in [place], [place]. IN an older apartment building. Denies drinking unclean water, sometimes eats raw hotdogs but no raw meats. Current smoker since the age of 18, drinks 1-2 beers about 2-3x per week. No drug use. Has a parakeet. No recent travel. Physical Exam: Last value Range last 24 hrs Temperature Temp: 36.6 ??C (97.9 ??F) Temp: [36.6 ??C (97.9 ??F)-37.3 ??C (99.1 ??F)] Heart Rate Heart Rate: 85 Heart Rate: -- Blood Pressure BP: 112/69 BP: (111-134)/(63-74) Respiratory Rate Resp: 16 Resp: [16-20] SpO2 SpO2: 94 % SpO2: [94 %-95 %] General: No acute distress HEENT: poor dentition, no oral lesions Cardiovascular: RRR without murmur Pulmonary: CTAB Abdomen: Soft, nontender, nondistended. Vertical midline incision with irvin intact, no purulenceor erythema. RLQ with ostomy site pink and without discharge. LLQ with incision site c/d/i. Ext: No edema Skin: No lesions or rashes Neuro: CNII-XII grossly intact Psych: Flat affect Laboratory: Recent labs reviewed, significant for WBC 9.4, AST 32, ALT 39, Tbili 0.2 Micro: 02/09 COVID negative 02/15 Cdiff negative 02/17 Cryptosporidium screen positive 02/17 Giardia screen negative 02/18 Campylobacter antigen positive 02/18 Shiga toxin assay negative 02/18 Stool culture - no enteric pathogens isolated Antimicrobials: Azithromycin 02/19-present Radiology/Studies/Procedures: No recent pertinent imaging Impression: Wally Aguilar is a 69 y.o. male with a history of MIBC on cisplatin/gemcytabine with recent cystoprostatectomy with ileal conduit, who is seen by ID for diarrhea and positive cryptosporidium and campylobacter cultures. It is unclear where patient acquired these infections and has no other known sick contacts in his apartment building. He is stable and healing from his recent surgery, but continues to put out 1-2L of watery diarrhea per day, requiring a rectal tube. Given the watery nature, it seems more likely that the cryptosporidium is causing his infection. Campylobacter tends to be a self limiting infection in immunocompetent individuals, as does cryptosporidium, but given patient's recent chemotherapy and ongoing high stool output, would be prudent to start him on treatment. Nitazoxanide and paromomycin are both recommended for treatment of cryptosporidium, either as monotherapy or in combination with azithromycin in severe disease. However, there appears to be more data on the efficacy of nitazoxanide, and we feel more comfortable with this choice given his mentioned comorbidities. Recommendations: - continue azithromycin 500mg daily for 14 days as both treatment of campylobacter as well as cryptosporidium - START nitazoxanide 500mg BID for a total of 14 days of treatment. We have spoken with pharmacy, who is ordering the medication. - continue to monitor stool output This patient was discussed with ID attending Dr. Elena. Recommendations discussed with primary treating team. Thank you very much for this interesting consult and allowing me to participate in this patient's care. We will continue to follow. Fernando Montalvo MD 02/21/2020 11:32 AM I interviewed, examined and discussed the patient with Dr. Montalvo, with whose findings and recommendations I concur. Given the ongoing significant watery diarrhea I do think we need to treat the cryptosporidiosis and the best validated therapy currently is with nitazoxanide, so would recommend as above. Juventino Elena MD * Consult Note - Annette Escamilla RN - 02/21/2020 10:36 AM EDT Inpatient post op note Diagnosis: Bladder Cancer Surgery/Date: 02/13/20 Procedure(s) (LRB): @CYSTECTOMY, COMPLETE, WITH ILEAL CONDUIT (WRVU 36.33) (N/A) @LYMPHADENECTOMY, PELVIC, INCLUDING MULTIPLE NODES-FELA (WRVU 14.06) (Bilateral) LIVER BIOPSY (N/A) Appliance: Intact 1 3/4 with adapt ring. Changed: [x} No Stoma: [place], budded, round, blue and red stents in place, red has urine flow, blue does not. Mucousaround stoma is less than yesterday. Peristomal Skin: Not assessed as pouch was not changed Teaching: Reviewed care of overnight drainage bag, patient was able to state that he will rinse theovernight bag each morning after disconnecting but needed reminder of what to rinse bag with. I hadhim practice the connecting and disconnecting. He did this today with minimal verbal cueing. He wasvery tired so we will plan to change pouch with him tomorrow. Family Present: [x} No Psychosocial Acceptance: He is able to look at stoma and participate in care. Special Notes: Patient is very soft spoken. He has been having significant diarrhea and cultures have been taken of his stool. The urology team has consulted GI and ID for input on management and tx of diarrhea. Patient has low appetite and low energy. He is now on TPN for meet calorie needs. No spare 1 3/4 in bag, fill when change tomorrow. * Plan of Care - Donte Bearden RN - 02/21/2020 4:02 AM EDT Problem: Patient Care Overview Goal: Plan of Care Review Outcome: Ongoing (Interventions Implemented as Appropriate) 02/18/20 1433 02/20/20 2123 Plan of Care Review Progress progress towards functional goals is fair -- Coping/Psychosocial Plan Of Care Reviewed With -- patient OUTCOME EVALUATION NOTE: OUTCOME SUMMARY: Pain well controlled with prn Tramadol x1. VSS. Patient continues to have minimal PO intake, TPN continues to infuse. Urostomy with low urine output, aware. DARYN drain continues to drain serous fluid. Flexiseal continues with large amounts of green liquid stool. Scrotum remains red, swollen and painful this shift, MD aware. Patient rested well between care. Critical Potassium 3.0, MD aware and IV potassium ordered. ?? PLAN MOVING FORWARD: ?? Incontinence care, monitor/manage pain, I&O's, encourage PO intake, encourage OOB, continue with current plan ?? INDIVIDUALIZED FALL PREVENTION INTERVENTIONS: High Fall Risk ?? Patient-specific fall risk factors per assessment: [current deficits]: Weakness, tubes/drains, recent surgery, pain, pain medications, PIV, Port ?? Assistance [level of assistance required for transfers and ambulation]: 1-2 Assist with FWW ?? Supervision [direct monitoring required during toileting and ADLs]: Hands on ?? Surveillance [continuous indirect monitoring]: Yes, Bed/Chair alarm, environmental modification (floor free of clutter, tubing secured), bed in low position, lighting adjusted for task/safety, nonskid slippers when out of bed, wheels locked, call light in reach, upper side-rails raised X2, ID bandson. ?? Patient-specific fall prevention interventions for sensory deficits provided, if applicable: [X] N/A ? CPG GOAL OUTCOME EVALUATION: Goal: Individualization & Mutuality Outcome: Ongoing (Interventions Implemented as Appropriate) 02/14/20 0802/15/20 1521 Mutuality/Individual Preferences What Anxieties, Fears or Concerns Do You Have About Your Health or Care? no -- What Questions Do You Have About Your Health or Care? no -- What Information Would Help Us Give You More Personalized Care? -- my arm tremors are when I get cold Goal: Fall Prevention-Safe Patient Handling Outcome: Ongoing (Interventions Implemented as Appropriate) 02/20/20 0730 02/20/20 1800 02/20/20 2123 Daily Care Interventions Self-Care Promotion independence encouraged;BADL personal objects within reach;BADL personal routines maintained -- -- Bearden Fall Risk History of Falling -- -- 25 Secondary Diagnosis -- -- 15 Ambulatory Aids -- -- 15 Intravenous Therapy/Heparin/Saline Lock -- -- 20 Gait/Transferring -- -- 10 Mental Status -- -- 0 Score -- -- 85 OTHER Bearden Fall Risk -- -- High Restraint Interventions Safety Promotion/Fall Prevention -- -- activity supervised;fall prevention program maintained;nonskid shoes/slippers when out of bed;safety round/check completed Positioning Body Position -- -- independent Activity Activity Type -- ambulated in tejeda -- Activity Assistance Provided -- assistance, 2 people -- Assistive Device Utilized -- front-wheel walker -- Goal: Infection Control Outcome: Ongoing (Interventions Implemented as Appropriate) 02/20/20 2123 Safety Interventions Isolation Precautions standard precautions maintained Infection Prevention rest/sleep promoted;single patient room provided;environmental surveillance performed Coping Strategies Supportive Measures active listening utilized;decision-making supported;goal setting facilitated;positive reinforcement provided;problem solving facilitated;relaxation techniques promoted;self-care encouraged;verbalization of feelings encouraged;self-responsibility promoted;self-reflection promoted Goal: Discharge Needs Assessment Outcome: Ongoing (Interventions Implemented as Appropriate) 02/14/20 1407 02/14/20 1549 Discharge Needs Assessment Concerns To Be Addressed -- adjustment to diagnosis/illness concerns Readmission Within The Last 30 Days -- no previous admission in last 30 days Equipment Needed After Discharge colostomy/ostomy supplies -- Current Discharge Risk -- chronically ill Discharge Disposition -- still a patient Living Environment Transportation Available -- Medicaid transportation;family or friend will provide Activity/Self Care Review of Systems Equipment Currently Used at Home -- colostomy/ostomy supplies Goal: Interdisciplinary Rounds/Family Conf Outcome: Ongoing (Interventions Implemented as Appropriate) 02/15/20 1521 Interdisciplinary Rounds/Family Conf Participants nursing;physician;physical therapy;social work/services * Plan of Care - Chantale Vee RN - 02/20/2020 3:45 PM EDT Problem: Patient Care Overview Goal: Plan of Care Review Outcome: Ongoing (Interventions Implemented as Appropriate) 02/18/20 1433 02/20/20 0730 Plan of Care Review Progress progress towards functional goals is fair -- Coping/Psychosocial Plan Of Care Reviewed With -- patient OUTCOME EVALUATION NOTE: OUTCOME SUMMARY: ?? Pt had 0-8/10 pain managed with prn tramadol. Pt refusing to drink tylenol as it hurts my throat too much. Team notified. Liquid tylenol switched to po tylenol. UOP on low end of normal. Team aware. Pt had multiple liquid stools leak from around flexiseal. Wound care to bedside and recommended hydragaurd for scrotum and orange tube of barrier cream for bottom. See wound care note. DARYN putting out large amounts of serous output. Pt walked with PT in a.m. and sat in chair for 2 hour. Pt ambulated in room x1. Encouraged pt to walk and eat. Pt refusing food, water, and potassium because of burning in throat. Team aware. Port dressing due to be changed. Vascular contacted. Vascular called back and said that they were busy today and would do it tomorrow. Update 1800: Pt agreed to ambulate in tejeda. ?? PLAN MOVING FORWARD: ?? Continue to monitor pain. Encourage oob and ambulation. Q 2 hr turns. Monitor for incontinent episodes. Monitor UOP. Port dressing change. ?? INDIVIDUALIZED FALL PREVENTION INTERVENTIONS: High fall Risk ?? Patient-specific fall risk factors per assessment: [current deficits]: Patient has a history of falling, 2 or more active diagnoses, recent surgery, has an actively infusing IV line, uses an ambulatory aid, has generalized weakness (or impairment), tubes/drains, pain, opioids for pain, is taking anti-arrhythmic, anti-hypertensive, cardiac meds. ?? Assistance [level of assistance required for transfers and ambulation]: 1 a w/fww ?? Supervision [direct monitoring required during toileting and ADLs]: Hands on ?? Surveillance [continuous indirect monitoring]: Hourly rounding, observation by staff, NKE at bedside. Assistive device, bed/chair alarm, family at bedside, commode/urinal/bedpan at bedside, environmental modifications (reduce clutter, lighting adjusted for safety, IV tubing and cords are free from the floor), glasses at bedside, hearing aids in or at the bedside, nonskid shoes/slippers when out of bed, bed in low position, upper position siderails raised x2 (x3), wheels locked, call light in reach, ID bands on, yellow falls ID band on ? Patient-specific fall prevention interventions for sensory deficits provided, if applicable: Yes, glasses at bedside ?? CPG GOAL OUTCOME EVALUATION: * Consult Note - Nuria Nixon RN - 02/20/2020 1:58 PM EDT Certified Wound Care Nurse Note Situation: Asked to see Wally Aguilar by nursing for Scrotal skin breakdown due to moisture Background: eD-H notes reviewed for history, admitting diagnosis and active problem list. Discussedpatient with RN. RN reports using shield barrier wipes and z-guard. States the team ordered miconazole powder, which has not arrived from pharmacy. RN reports that flexiseal is leaking. Wound Assessment and Care Provided: Patient supine in bed. Purpose for visit explained and permission given for assessment. Patient wearing a depends and peripad. flexiseal in place. The midline, posterior scrotum with erythema and superficial skin loss. The sides of the scrotum appear to be peeling, covered with z-guard. Discussed with patient removing the peripad. Gerson Score: 19 Last Pressure Ulcer Prevention assessment: Shift Pressure Injury Prevention Occiput: No Injury Thoracic Spine: No Injury Sacral: No Injury Ischial - left: No Injury Ischial - right: No Injury Heel - left: No Injury Heel - right: No Injury Elbow - left: No Injury Elbow - right: No Injury Device Sites: O2 sat monitor, IV sites, SCD's/venodynes, Flexiseal Other Sites: DARYN, urostomy Nutritional Status Wt Readings from Last 1 Encounters: 02/19/20 53.6 kg (118 lb 3.2 oz) Body mass index is 19.08 kg/m??. Current bed: [facility] Assessment: patient with incontinence associated dermatitis to scrotum. The zinc can be drying to scrotal skin, recommend hydrguard barrier cream for protection. Patient does not appear to have a fungal component at this time, if treating with antifungal would recommend the antifungal ointment as this provides a barrier in addition to antifungal Wound Care Recommendations: Due to leaking flexiseal, remove 5ml of fluid from balloon until leaking ceases. Moisture: Follow a bowel and bladder schedule for incontinent patients and document. Cleanse skin gently after each incontinence episode with Shield Barrier wipes. Apply Z-Guard Skin Protectant Paste to denuded perianal skin bid and prn. Apply Hydraguard barrier cream to scrotum Use disposable air pads (white chux) to maintain dry skin and prevent fungal infections. Avoid adult diapers (including peripad) except when patient is out of bed to ambulate or in a chair. Follow hospital standard for pressure injury prevention and skin care. Refer to adult/pediatric pressure injury prevention job aid in the clinical policy library. Mobility: Turn and reposition every 2 hours and document in ED-H. Place a pillow above and below sacral area to off load pressure to the sacrum Offload pressure from heels by placing pillows lengthwise beneath legs while in bed. Offload pressure from heels by adjusting length of foot of bed. Wound care will follow weekly. Discussed plan with: /OMAR/PA: La Jean-Baptiste RN: Chantale Please contact Nuria Nixon RN on pager [phone] or the wound care team at [phone] or pager [phone] with skin and wound care concerns or questions. * Consult Note - Annette Escamilla RN - 02/20/2020 1:49 PM EDT Inpatient post op note Diagnosis: Bladder Cancer Surgery/Date: Procedure(s) (LRB): @CYSTECTOMY, COMPLETE, WITH ILEAL CONDUIT (WRVU 36.33) (N/A) @LYMPHADENECTOMY, PELVIC, INCLUDING MULTIPLE NODES-FELA (WRVU 14.06) (Bilateral) LIVER BIOPSY (N/A) Appliance: Intact 1 3/4 w/adapt ring Changed: [x} No Stoma: Goldsby, round, blue and red stent present, red stent has good urine flow, blue continues to have little urine flow. The urology team is aware. Urine output was better today than yesterday. Peristomal Skin: Not assessed as pouch was not changed. Teaching: Reviewed first page with patient. He has medicare, so I educated him that home health will be ordering his supplies while they see him and they can use the ordering numbers on this first page which will be in his blue folder. I reviewed care of overnight drainage bag, demonstrated and hadhim practice how to attach adaptor to new bag. Family Present: No Psychosocial Acceptance: He is soft spoken but does look at his stoma and practices hands on care. Special Notes: Patient does not have any spare 1 3/4 wafers in his green bag. When ostomy team changes tomorrow we will stock bag. * Plan of Care - Miller Alexis, PT - 02/20/2020 11:25 AM EDT Physical Therapy Note Treatment Number PT: 2 Patient profile: Wally Aguilar??is a 69 y.o.??male?admitted on 02/12 for a cystoprostatectomy with ileal conduit for MIBC. DVT ruled out, pt has claudication RLE, multiple loose stools with some incontinence episodes Interval History: flexiseal, TPN, speech consult, not eating due to burning mouth and stomach pain, ?? 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 Mobility and Positioning Recommendations: ?? Pt. to utilize FWW and assist of 1 for ambulation and transfers with nursing. ?? Please encourage up to chair for meal times as able. ?? Pt encouraged to ambulate frequently with staff, getting into the bathroom for toileting and walking out in the tejeda >/= 3 times daily as able. ?? Subjective: I don't want anything to drink Objective: Patient seen for physical therapy and demonstrated the following: ?? Pain: baseline RLE pain, pain with drinking eating, scrotal discomfort due to skin excoriation, perineal discomfort ?? Vital Signs: HR 85 bpm, SpO2 95% on RA BP 117/63 ?? Cognition: WNL, perked up once up and moving ?? Musculoskeletal: ROM: Strength: ??? Bed Mobility Supine to sit: min asst with HOB slightly raised Sit to Supine: stayed up in chair Scooting: boosted higher in bed due to flexiseal and perineal excoriation Rolling to R/L: modified independence with bed rail ?? Transfers: Sit to Stand: min asst to FWW Stand to Sit: cga and cues to reach back, Bed to Chair: Assist of 1 with FWW ?? Seated balance: Sitting Static: good Sitting Dynamic: fair ?? Standing balance: Standing Static: fair with FWW Standing Dynamic / Gait: fair with FWW ?? Gait:Pt ambulated~ 60 ft with FWW, CGA, 2nd person pushing IV pole, antalgic gait, step to gait,preference to ambulate on his toes, avoids foot flat secondary to RLE pain (DVT ruled out, claudication) ?? Education: discussion re: recommendation for rehab stay prior to returning home, frequent repositioning, encouraged to ambulate more frequently to support recovery ?? Exercise: R ankle stretches, seated warm ups, Pt left in sitting reclined in bedside chair, feet supported on bedside table,chair alarm on, call vora within reach, all needs met, RN aware. Assessment: Wally Aguilar was seen today for physical therapy treatment session for continuation of POC. Pt demonstrated increased ambulation distance, is able to extend R knee more but still ambulates with decreased foot flat secondary to baseline claudication, able to push himself further. Currently limited by ongoing diarrhea, skin irritation and decreased p.o intake, will be treated for infection and hopefully be able to wean off TPN. Anticipate pt will make daily gains with increased ambulation and improved nutrition. Pt will benefit from ongoing therapeutic interventions to achieve therapy goals. Therapy Plan: 2-4x/wk for ambulation, stairs, therex, endurance activities as outlined in initial evaluation. Patient / family agrees with plan as stated. Discharge Recommendations: Based on current functional status and medical needs, recommend SWING bed prior to returning home. Pt would like to work towards home discharge with assist of his friend. Discussed with PA, resident, and career education teacher. Equipment needs: Rolling walker, pt has a cane Physical Therapy Goals: To be achieved by 02/26: ?? 1. Pt. to demonstrate knowledge of safety limitations and precautions and will appropriately request assistance for functional activities and to mobilize. 2. Pt. to demonstrate understanding of appropriate LE ROM exercises. 3. Pt. to perform bed mobility with modified independence. 4. Pt. to perform sit to stand transfers with modified independence using LRD. 5. Pt. to ambulate 100 feet with modified independence using a LRD. 6. Pt. to ambulate up/down 12 step/stairs using one rail with supervision. 7. Family or caregiver to demonstrate understanding of strategies to support patient for safe discharge home Time IN / OUT: 10:56-11:25 Total Evaluation Minutes, Physical Therapy: 29 TEF x 2 MILLER ALEXIS, PT Pager: [phone] Physical Therapy Inpatient Rehabilitation Department * Plan of Care - Donte Bearden RN - 02/20/2020 5:57 AM EDT Problem: Patient Care Overview Goal: Plan of Care Review Outcome: Ongoing (Interventions Implemented as Appropriate) 02/18/20 1433 02/19/20 2123 Plan of Care Review Progress progress towards functional goals is fair -- Coping/Psychosocial Plan Of Care Reviewed With -- patient OUTCOME EVALUATION NOTE: OUTCOME SUMMARY: Pain well controlled with scheduled Tylenol, prn Tramadol x1, and IV dilaudid x1. VSS. Minimal PO intake this shift, TPN infusing. Urostomy with low urine output, MD aware. DARYN drain continues to drain serous fluid, dressing changed x1. Flexiseal continues with large amounts of green liquid stool. Incontinence care provided as needed for leaking flexiseal. Scrotum noted to be red, swollen and increasingly painful this shift, MD aware. Patient rested well between care. PLAN MOVING FORWARD: Incontinence care, monitor/manage pain, I&O's, encourage PO intake, encourage OOB, continue with current plan INDIVIDUALIZED FALL PREVENTION INTERVENTIONS: High Fall Risk Patient-specific fall risk factors per assessment: [current deficits]: Weakness, tubes/drains, recent surgery, pain, pain medications Assistance [level of assistance required for transfers and ambulation]: 1-2 Assist with FWW Supervision [direct monitoring required during toileting and ADLs]: Hands on Surveillance [continuous indirect monitoring]: Yes, Bed/Chair alarm, environmental modification (floor free of clutter, tubing secured), bed in low position, lighting adjusted for task/safety, nonskid slippers when out of bed, wheels locked, call light in reach, upper side-rails raised X2, ID bandson. Patient-specific fall prevention interventions for sensory deficits provided, if applicable: [X] N/A CPG GOAL OUTCOME EVALUATION: Goal: Individualization & Mutuality Outcome: Ongoing (Interventions Implemented as Appropriate) 02/14/20 0807 02/15/20 1521 Mutuality/Individual Preferences What Anxieties, Fears or Concerns Do You Have About Your Health or Care? no -- What Questions Do You Have About Your Health or Care? no -- What Information Would Help Us Give You More Personalized Care? -- my arm tremors are when I get cold Goal: Fall Prevention-Safe Patient Handling Outcome: Ongoing (Interventions Implemented as Appropriate) 02/19/20 1023 02/19/202122 Daily Care Interventions Self-Care Promotion independence encouraged;BADL personal objects within reach -- Telly Fall Risk History of Falling -- 25 Secondary Diagnosis -- 15 Ambulatory Aids -- 15 Intravenous Therapy/Heparin/Saline Lock -- 20 Gait/Transferring -- 10 Mental Status -- 0 Score -- 85 OTHER Bearden Fall Risk -- High Restraint Interventions Safety Promotion/Fall Prevention -- activity supervised;fall prevention program maintained;safety round/check completed;nonskid shoes/slippers when out of bed Positioning Body Position -- independent Activity Activity Type -- activity adjusted per tolerance Activity Assistance Provided -- assistance, 1 person Assistive Device Utilized -- front-wheel walker Goal: Infection Control Outcome: Ongoing (Interventions Implemented as Appropriate) 02/19/202122 Safety Interventions Isolation Precautions standard precautions maintained Infection Prevention environmental surveillance performed;single patient room provided;rest/sleep promoted Coping Strategies Supportive Measures active listening utilized;decision-making supported;goal setting facilitated;positive reinforcement provided;problem solving facilitated;relaxation techniques promoted;self-care encouraged;self-reflection promoted;self-responsibility promoted;verbalization of feelings encouraged Goal: Discharge Needs Assessment Outcome: Ongoing (Interventions Implemented as Appropriate) 02/14/20 1407 02/14/20 1549 Discharge Needs Assessment Concerns To Be Addressed -- adjustment to diagnosis/illness concerns Readmission Within The Last 30 Days -- no previous admission in last 30 days Equipment Needed After Discharge colostomy/ostomy supplies -- Current Discharge Risk -- chronically ill Discharge Disposition -- still a patient Living Environment Transportation Available -- Medicaid transportation;family or friend will provide Activity/Self Care Review of Systems Equipment Currently Used at Home -- colostomy/ostomy supplies Goal: Interdisciplinary Rounds/Family Conf Outcome: Ongoing (Interventions Implemented as Appropriate) 02/15/20 1521 Interdisciplinary Rounds/Family Conf Participants nursing;physician;physical therapy;social work/services * Plan of Care - Elsy Haynes RN - 02/19/2020 6:32 PM EDT Problem: Skin Integrity Impairment, Risk/Actual (Adult) Goal: Skin Integrity/Wound Healing Patient will demonstrate the desired outcomes by discharge/transition of care. Outcome: Ongoing (Interventions Implemented as Appropriate) 02/18/20 0628 Skin Integrity Impairment, Risk/Actual (Adult) Skin Integrity/Wound Healing making progress toward outcome Problem: Patient Care Overview Goal: Plan of Care Review Outcome: Ongoing (Interventions Implemented as Appropriate) 02/18/20 1433 02/19/20 1023 Plan of Care Review Progress progress towards functional goals is fair -- Coping/Psychosocial Plan Of Care Reviewed With -- patient OUTCOME EVALUATION NOTE: OUTCOME EVALUATION NOTE: ?? 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 Pt continues with low PO intake, denies nausea however still declining food/beverage options but agreeing that he may be more interested if he did not have throat pain/indigestion. Copious amounts of green output continues through flexiseal with persistent drainage, cleanup provided throughout shift. GI consulted, stool samples obtained and sent to Lab. Patient received platelets this shiftin prep for removal of epidural, no transfusion reaction suspected. PCEA discontinued. Patient willbegin TPN tonight. Adequate but low output through urostomy, stoma nurse bedside today, see note. DARYN drain with moderate amounts of serous drainage. Resting well between care. ? PLAN MOVING FORWARD: ?? TPN; Encourage PO intake OOB and ambulation as tolerated Urostomy education ?? INDIVIDUALIZED FALL PREVENTION INTERVENTIONS: ??High fall risk ?? Patient-specific fall risk factors per assessment: [current deficits]:?Recent surgery, n/v, intermittent pain, IVF, generalized weakness, frequent stools/incontinence, drains/devices, medication effects ?? Assistance [level of assistance required for transfers and ambulation]:??Ax1 with FWW ?? Supervision [direct monitoring required during toileting and ADLs]:?Hands on ?? Surveillance [continuous indirect monitoring]:?Bed/chair alarm, masimo, hourly rounding, room near unit station, NKE at bedside, yellow fall band on, environmental modifications (clutter-free environment, tubing secured, bed low, lighting adjusted, nonskid socks when OOB, bed wheels locked, calllight with in reach, upper side rails x2, ID bands on) ?? Patient-specific fall prevention interventions for sensory deficits provided, if applicable:?[X]N/A ?? CPG GOAL OUTCOME EVALUATION: Goal: Fall Prevention-Safe Patient Handling Outcome: Ongoing (Interventions Implemented as Appropriate) 02/19/20 1023 Daily Care Interventions Self-Care Promotion independence encouraged;BADL personal objects within reach Bearden Fall Risk History of Falling 25 Secondary Diagnosis 15 Ambulatory Aids 15 Intravenous Therapy/Heparin/Saline Lock 20 Gait/Transferring 10 Mental Status 0 Score 85 OTHER Bearden Fall Risk High Restraint Interventions Safety Promotion/Fall Prevention activity supervised;fall prevention program maintained;nonskid shoes/slippers when out of bed;safety round/check completed Positioning Body Position independent Activity Activity Type activity adjusted per tolerance Activity Assistance Provided assistance, 1 person Assistive Device Utilized front-wheel walker Goal: Infection Control Outcome: Ongoing (Interventions Implemented as Appropriate) 02/19/20 1023 Safety Interventions Isolation Precautions standard precautions maintained Infection Prevention environmental surveillance performed;equipment surfaces disinfected;personal protective equipment utilized;rest/sleep promoted;single patient room provided;visitors restricted/screened Coping Strategies Supportive Measures active listening utilized;decision-making supported;goal setting facilitated;positive reinforcement provided;problem solving facilitated;relaxation techniques promoted;self-care encouraged;self- responsibility promoted;verbalization of feelings encouraged Goal: Discharge Needs Assessment Outcome: Ongoing (Interventions Implemented as Appropriate) 02/14/20 1407 02/14/20 1549 Discharge Needs Assessment Concerns To Be Addressed -- adjustment to diagnosis/illness concerns Readmission Within The Last 30 Days -- no previous admission in last 30 days Equipment Needed After Discharge colostomy/ostomy supplies -- Current Discharge Risk -- chronically ill Discharge Disposition -- still a patient Living Environment Transportation Available -- Medicaid transportation;family or friend will provide Activity/Self Care Review of Systems Equipment Currently Used at Home -- colostomy/ostomy supplies Goal: Interdisciplinary Rounds/Family Conf Outcome: Ongoing (Interventions Implemented as Appropriate) 02/15/20 1521 Interdisciplinary Rounds/Family Conf Participants nursing;physician;physical therapy;social work/services Problem: Nausea/Vomiting (Adult) Goal: Symptom Relief Patient will demonstrate the desired outcomes by discharge/transition of care. Outcome: Ongoing (Interventions Implemented as Appropriate) 02/18/20 0628 Nausea/Vomiting (Adult) Symptom Relief making progress toward outcome * Consult Note - Annette Escamilla RN - 02/19/2020 6:21 PM EDT Ileal Conduit Pouching: Naveen 2-piece pouch Name: Wally Aguilar Type of Ostomy: Urostomy Use this procedure as a guide when changing your appliance. Read all instructions, assemble all equipment, and empty contents from pouch before beginning actual change. If you have questions, do not hesitate to call the Ostomy Nurses at [phone]. Equipment: Company/Order Numbers Wet and dry soft cloth (paper towels) Plastic bag Pen, Scissors, stoma patter Appliance pouch [place] 1 09/12 #[id number] Wafer, Cera Plus Naveen 1 09/12 #[id number] Protective powder [place] # [id number] Adapt Paste [place] # [id number] Nosting Skin Barrier Wipe [facility] # [id number] Barrier ring [place] # [id number] Barrier strips [employer] # [id number] Night Drainage Weld Engineer [employer] #[id number] (catheter bag) [facility] container set #[id number] (hard plastic container) Procedure: 1. Wash Hands. 2. Using pattern, trace stoma size on back of wafer and cut out tracing. 3. Remove old pouch and wafer from skin and discard in plastic bag. 4. Wash skin and stoma with warm water and pat skin dry. 5. Utilize shama (toilet paper or paper towels) to prevent urine from leaking onto skin. 6. Examine skin and stoma for any irritation. If skin irritation present, apply a dusting of Adapt protective powder. Slater off excess powder, or wafer will not adhere. Seal the powder by applying a Nosting Skin Barrier Wipe. 7. Remove paper backing from wafer. If using an adapt ring apply this around wafer hole and press firmly in place. 8. Apply wafer to skin being sure to center over stoma. Press down firmly, first in center closest to stoma and then outer edges. Once center well sealed remove paper backing from adhesive outer edges. 9. To attach pouch to wafer flange: ??? angle bottom of pouch as desired. ??? position the top of the pouch flange onto wafer flange. ??? starting at the bottom, apply gentle pressure around the curcumference of the pouch flange until it feels secure to the flange on the wafer. You should feel or hear the pouch click into a secure position and a gentle tug all the way around will confirm that the pouch is firmly attached. 10. Close Valve 11. Picture frame (apply 1-piece of tape to each side of the wafer) with waterproof tape when showering, bathing or swimming (optional) or use barrier strips. 12. To remove old pouch from wafer pull away from the wafer using the tab at the top of the flange on the pouch, maintain gentle pressure on the wafer as the pouch is pulled away. 13. Connect pouch to night drainage connector and drainage bag at night. Sometimes the drainage tubing can get an 'air lock' to prevent this it does help to keep some urinein pouch before hooking it up to the overnight Drainage tubing. Changing Schedule: Twice a week Always bring supplies needed for a pouch change when you come in for your clinic visits, or into the hospital. Note: Rinse your night drainage bag with vinegar/water solution (1:3) after each use; hang to dry. Change night drainage specimen collector once a month. * Consult Note - Annette Escamilla RN - 02/19/2020 6:03 PM EDT Images from the original note were not included. Inpatient post op note Diagnosis: Bladder Cancer Surgery/Date: 02/13/20 Procedure(s) (LRB): @CYSTECTOMY, COMPLETE, WITH ILEAL CONDUIT (WRVU 36.33) (N/A) @LYMPHADENECTOMY, PELVIC, INCLUDING MULTIPLE NODES-FELA (WRVU 14.06) (Bilateral) LIVER BIOPSY (N/A) Appliance: Removed [place] 09/12 w/ ring and replaced with the same Changed: [x} Yes Stoma: Red, between 07/15 and 09/16 round, blue and red stents present, red drips urine, blue does not so I notified Dr. Jean-Baptiste from the urology team. There was significant mucous present over stoma,covering it completely. I did cleanse this off. Peristomal Skin: Intact, clear Teaching: Reviewed pouch change and patient performed cleansing of stoma, cutting of wafer, application of ring to back of wafer, and centering wafer over stoma with minimal hands on assist. His eye sight is not good for close up, but he does not have his glasses with him in the hospital, so I did have to help tracing and cutting. He will benefit greatly from a pre-cut appliance at some point. Hepracticed disconnecting and connecting from the overnight drainage bag independently. Family Present: [x} No Psychosocial Acceptance: He was able to look at his stoma and participate in the pouch change. Special Notes: Patient does not have any spares of the 09/12 in bag. He will need 5 spare rings and wafers as well as first page tomorrow. Possible DC end of the week according to case management note. Patient signed postcard today for kit. Stoma: * Consult Note - Tristan Glover - 02/19/2020 5:34 PM EDT Images from the original note were not included. DIVISION OF GASTROENTEROLOGY & HEPATOLOGY INITIAL CONSULT REQUESTING PROVIDER: Nima Armstrong MD NAME: Wally Aguilar : 1950 HPI: 69/M hx bladder ca (s/p recent chemo) adm 02/14 for cystoprostatectomy w/ ileal conduit. GI consultedre: diarrhea and odynophagia. Recently dx with bladder malignancy. Has been undergoing gemcitabine/cisplatin chemo therapy. Sincehis last cycle, patient notes on/off liquid, non-bloody diarrhea. He was then admitted 02/12 for surgery. He received ceftriaxone and Flagyl on 02/12, 02/13. He was also given alvimopan on 02/12, 02/13, 02/14 toprevent post- op ileus. Since then, his diarrhea has been worse. He is charted as having >10 BMs per day. Patient notes closer to 4-5. Stools are liquid, dark green/brown in color. No melena or hematochezia. No abdominal pain. He underwent C diff testing which was negative. An O+P is still pending. He has not been trialed on any antidiarrheals. He ultimately had an FMS placed on 02/16 with large volume liquid stool since then. No recent colonoscopies. ROS: 10-system ROS negative other than that noted above Past Medical History: Diagnosis Date ??? Asthma ??? Cancer kidney ??? Chronic pain right calf paiins him since his hip surgery ??? COPD (chronic obstructive pulmonary disease) pt has asthma but states he does not have copd or emphysema ??? Delayed emergence from anesthesia ??? GERD (gastroesophageal reflux disease) ??? Hypertension ??? Intraoperative complication during his only surgery (hip from a fall off a doroteo) in 1990 in [place] he woke up during the procedure ??? PAD (peripheral artery disease) ??? Peptic ulcer disease ??? Seizure last seizure was 20 years ago ~ suffered from epilepsy but does not seem to be an issue anymore ??? Status post chemotherapy just had 8 weeks pf treatments 3 weeks ago ??? Transfusion history does not know ??? Urolithiasis ??? Vertigo balance problems only from the left leg being longer than the right leg from his hip surgery Past Surgical History: Procedure Laterality Date ??? AORTO-ILIAC BYPASS GRAFT endarterectomy ??? CT GUIDED BIOPSY LYMPH NODE(CHEST/ABD/PELVIS) 01/31/2020 CT Guided Biopsy Lymph Node (Chest/Abd/Pelvis) 01/31/2020 [facility] RAD CAT SCAN ??? HIP FRACTURE SURGERY Right 1991 ??? INGUINAL HERNIA REPAIR Right ??? IR MEDIPORT PLACEMENT/EXCHANGE 11/27/2019 IR Mediport Placement 11/27/2019 Jason Lujan, NAHID [facility] INTERVENTIONL RAD ??? PRO CYSTECTOMY, ILEAL CONDUIT/SIGMOID BLADDER N/A 02/13/2020 @CYSTECTOMY, COMPLETE, WITH ILEAL CONDUIT (WRVU 36.33) performed by Nima Armstrong MD at [facility] LYNETTE ??? PRO NEEDLE BIOPSY LIVER N/A 02/13/2020 LIVER BIOPSY performed by Nima Armstrong MD at [facility] MAIN OR ??? PRO REMOVE PELVIS LYMPH NODES Bilateral 02/13/2020 @LYMPHADENECTOMY, PELVIC, INCLUDING MULTIPLE NODES-FELA (WRVU 14.06) performed by Nima Armstrong MDat [facility] MAIN OR Social History Socioeconomic History ??? Marital status: Single Spouse name: Not on file ??? Number of children: Not on file ??? Years of education: Not on file ??? Highest education level: Not on file Occupational History ??? Not on file Social Needs ??? Financial resource strain: Not on file ??? Food insecurity Worry: Not on file Inability: Not on file ??? Transportation needs Medical: Not on file Non-medical: Not on file Tobacco Use ??? Smoking status: Current Every Day Smoker Packs/day: 2.00 Years: 50.00 Pack years: 100.00 ??? Smokeless tobacco: Never Used Substance and Sexual Activity ??? Alcohol use: Yes Alcohol/week: 14.0 standard drinks Types: 14 Standard drinks or equivalent per week Comment: 2 ??? Drug use: Not Currently ??? Sexual activity: Not Currently Lifestyle ??? Physical activity Days per week: Not on file Minutes per session: Not on file ??? Stress: Not on file Relationships ??? Social connections Talks on phone: Not on file Gets together: Not on file Attends orthodoxy service: Not on file Active member of club or organization: Not on file Attends meetings of clubs or organizations: Not on file Relationship status: Not on file ??? Intimate partner violence Fear of current or ex partner: Not on file Emotionally abused: Not on file Physically abused: Not on file Forced sexual activity: Not on file Other Topics Concern ??? Not on file Social History Narrative 100 pack year smoker and continues to smoke 1/2-1 ppd. Ongoing moderately heavy alcohol use 2 drinks a night. No drug use. He grew up in [facility] and finished 11th grade. 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 He is and has 3 children, 2 live in [place] and one daughter in the [employer] in [facility]; he has limited contact with them. His brother David age 66 [address] but has significant health challenges as well. He has a [employer] test case developer, Ketty Ricketts who is also his landlord and is instrumental in helping him manage his affairs. No family history on file. MEDICATIONS Home Meds: Medications Prior to Admission Medication Sig Dispense Refill Last Dose ??? metoprolol succinate XL (Toprol-XL) 25 mg Tablet Sustained Release 24 hr Take 1 tablet by mouthdaily. 90 tablet 3 02/12/2020 at Unknown time ??? albuterol 90 mcg/actuation HFA Aerosol Inhaler Inhale 2 puffs into the lungs every 4 hours as needed for Wheezing. Use with spacer 02/12/2020 at Unknown time ??? aspirin EC 81 mg Tablet, Delayed Release (E.C.) Take 81 mg by mouth daily. Past Week at Unknowntime ??? atorvastatin (Lipitor) 20 mg Tablet Take 20 mg by mouth daily. 02/12/2020 at Unknown time ??? varenicline (CHANTIX) 0.5 mg (11)- 1 mg (42) Tablets, Dose Pack 0.5 mg by mouth daily for 3 days then 0.5mg by mouth twice a day for 4 days then 1mg twice a day. Start drug 1 week before quit day. 53 tablet 0 Unknown at Unknown time ??? atenoloL (Tenormin) 25 mg Tablet Take 25 mg by mouth daily. Unknown at Unknown time ??? traMADoL (Ultram) 50 mg Tablet Take 50 mg by mouth every 6 hours as needed for Pain. Unknown atUnknown time Current Meds: Scheduled: ??? pantoprazole 40 mg Intravenous BID ??? acetaminophen 1,000 mg Intravenous Q8H CARLOS ??? lidocaine 3 patch Transdermal Q24H And ??? [START ON 02/20/2020] lidocaine 1 patch Transdermal Q24H ??? aspirin 81 mg Oral Daily ??? albuteroL 2 puff Inhalation 4 Times Daily ??? atorvastatin 20 mg Oral Daily ??? metoprolol succinate XL 25 mg Oral Daily ??? sodium chloride 0.9 % (flush) 5 mL Intravenous BID ??? heparin (Porcine) 5,000 Units Subcutaneous Q8H CARLOS ??? varenicline 0.5 mg Oral BID Followed by ??? [START ON 02/21/2020] varenicline 1 mg Oral BID Drips: ??? TPN Adult ??? dextrose 5% and sodium chloride 0.45% with potassium chloride 20 mEq 100 mL/hr (02/19/20 1407) PRN: phenol 1.4%, calcium carbonate, prochlorperazine, sodium chloride 0.9 % (flush), lidocaine, ondansetron OR ondansetron, traMADoL Allergies Allergen Reactions ??? Wellbutrin [Bupropion Hcl] Other (See Comments) Unknown on pt's chart from outside facility OBJECTIVE Vitals: T Temp: [36.5 ??C (97.7 ??F)-36.8 ??C (98.2 ??F)] HR Heart Rate: [73-78] BP BP: (101-107)/(63-64) RR Resp: [16-20] SpO2 SpO2: [93 %-98 %] IO 02/17 07 - 02/18 07 In: 5925.4 [P.O.:250; I.V.:5528] Out: 2510 [Urine:450] Wt Last 53.6 kg (118 lb 3.2 oz) Admit 54.8 kg Physical Exam: GEN: Awake, alert, soft speech, unkempt HEENT: AT/NC, sclerae anicteric, moist mucous membranes RESP: CTAB from anterior CARDIAC: RRR, normal S1/S2, no appreciable murmurs ABDOMEN: ileal conduit in LLQ, mucus in bag, DARYN drain in LLQ, serous fluid in bulb, well-healing midline incision with irvin, abdo soft, normoactive bowel sounds, non-tender, non-distended, FMS in-situ with dark green liquid stool in bag EXTREM: Warm, no edema NEURO: Grossly intact, moves all extremities SKIN: No jaundice Labs: CBC: Recent Labs 02/19/20 0800 02/18/20 0805 02/17/20 0530 02/16/20 0815 02/15/20 1805 02/15/20 1230 02/15/20 0545 02/15/20 0420 WBC 10.0* 7.6 8.6 11.8* 9.1 7.8 6.4 6.5 HGB 9.7* 9.6* 9.6* 10.5* 10.3* 8.3* 6.3* 6.5* HCT 28.8* 28.9* 28.3* 30.6* 30.4* 24.4* 19.0* 19.4* MCV 93.8* 94.8* 91.6 90.3 92.7 92.8 95.0* 95.6* RDWCV 16.3* 16.3* 16.4* 16.1* 15.6* 15.3* 14.7* 14.6* BMP: Recent Labs 02/18/20 0933 02/17/20 0530 02/16/20 0815 02/15/20 0420 02/14/20 0150 02/13/20 1750 02/13/20 0705 NA 139 138 138 137 138 138 135 K 3.6 3.4* 3.5 3.8 5.0 4.9 4.0 CO2 23 22 22 23 22 20* 20* BUN 10 11 13 26* 31* 32* 43* IMAGING: Reports and images personally reviewed in e[facility] XR Fluoro No Rad <1Hr - OR Use Final Result CT Angiogram Aortic Lower Extremity Runoff (Results Pending) ASSESSMENT & PLAN: 69/M hx bladder ca (s/p recent chemo) adm 02/14 for cystoprostatectomy w/ ileal conduit. GI consultedre: diarrhea and odynophagia. Suspect diarrhea is medication related (started with his chemotherapy, worsened with recent antibiotics, also received 3 days of alvimopan). Less like acute infectious di arrhea. Negative C diff reassuring (NPV 96%). Hx GERD with worsening symptoms while admitted with some discomfort while swallowing both liquids and solids. No dysphagia or obstruction. Likely GERD-related. Less likely infectious. Unlikely esoph Candidiasis in absence of oral Janiya. Recommendations: - F/U stool O+P. Recommend checking stool culture. - Imodium PRN for diarrhea - PPI BID for heartburn. OK for Tums/Maalox PRN as well. - Monitor for FMS rectal ulcers - If not improving will consider colonoscopy Plan of care discussed with Dr. Neal. Tristan Glover MD PGY-4, Gastroenterology * Plan of Care - Jasper Vaughan, [employer] REPAIRER HELPER - 02/19/2020 9:41 AM EDT Speech Therapy Bedside Swallow Evaluation Patient Profile: Wally Aguilar is a 69 y.o. male admitted on 02/13/2020 for cystoprostatectomy with ileal conduit for MIBC. Post-op pt reports pain with swallowing. Speech consulted for swallow evaluation. ?? Prior Level of Swallow Function: No difficulty reported. Occasional pain with swallowing at baseline, but more intense since hospitalization. Subjective: Pt is alert and interactive. Pleasant. Objective: Pt seen for evaluation today. Pain: No pain reported at the time of this visit. No pain reported with swallowing during this visit. Respiratory Status: Room air . Saturating at 96%. Vision: Not tested. Hearing: WFL Current Diet: Regular diet Feeding / Oral Care Status: Pt is independent Cognitive-Linguistic Status: alert, oriented to person, place, and time Follows Commands: Follows multi-step commands Positioning: HOB at 55 degrees Oral / Laryngeal Mechanism Clinical Assessment: ?? Lingual: Normal tongue movement in all planes. ?? Labial / Buccal: Normal labial movement in all planes. ?? Velar: Velar elevation is present. ?? Sensation: Grossly intact. ?? Vocal fold function and airway protection: Vocal quality is clear. Cough is sufficient to protect airway. ?? Speech Intelligibility: intelligible. ?? Mucosa: Intact. ?? Dentition: Edentulous. Has dentures, but only occasionally wears them for feeding. Dentures are at home. Bolus Presentation(s) ?? Thin liquid via straw ?? Puree ?? Regular solid Oral Preparatory Phase ?? Mastication: Functional despite lack of dentition with slight increase in time. ?? Oral Transit: Timely across consistencies. ?? Bolus Cohesion: Appears functional ?? Labial Seal / Loss: Negative. ?? Oral Stasis: Negative. Pharyngeal Phase ?? Laryngeal Elevation: Normal to palpation. ?? Vocal quality change: Negative across consistencies. ?? Cough / throat clear: No cough or throat clearing following swallows. ?? Pt. complaint of food getting stuck: Negative during this assessment. ?? Fatigue across trials: No ?? Respiratory rate and respiratory swallow pattern: No change. Esophageal Phase ?? Suspected esophageal dysphagia secondary to: inconsistent burning sensation is clavicular area at midline in a vertical direction consistent with SAWYER. Compensatory Techniques: Pt was able to return demonstrate effective use of strategies secondary. Education: Patient educated on results and recommendations, and verbalized understanding. Patient status, treatment and swallow recommendations were discussed with nursing. Assessment: Pt presents with functional oral manipulation of bolus material across consistencies despite lack of dentition. No signs of aspiration or pharyngeal dysphagia. No pain was reported during this assessment, however when pain occurs with swallowing pt reports itis a burning pain, in a vertical axis, around the level of the clavicle consistent with SAWYER. GI already consulted. No further need for speech intervention at this time. Will sign off. . Diagnosis: functionally appearing oropharyngeal swallow. Recommendations: Diet: Regular solids, Thin liquids (pt to choose foods he is able to chew without dentition.) PO medications: whole with sip of liquid Aspiration precautions: Upright position during meals and for at least 30 mins following No further [employer]PA[employer] HELPER intervention is warranted while hospitalized. Speech Therapy Goals: (To be met by discharge) N/A Plan: Therapy Frequency: evaluation only Pt./family are in agreement with treatment plan. Total Evaluation Minutes, Speech Language Pathology: 25 Thank you for this consult with this patient. Please feel free to page me with any questions or concerns. Jasper Vaughan MS, [facility]-[employer]PA[employer] HELPER Pager: [phone] Speech-Language Pathology Inpatient Rehabilitation Department * Plan of Care - Elsy Haynes RN - 02/18/2020 2:42 PM EDT Problem: Skin Integrity Impairment, Risk/Actual (Adult) Goal: Skin Integrity/Wound Healing Patient will demonstrate the desired outcomes by discharge/transition of care. Outcome: Ongoing (Interventions Implemented as Appropriate) 02/18/20 0628 Skin Integrity Impairment, Risk/Actual (Adult) Skin Integrity/Wound Healing making progress toward outcome Problem: Patient Care Overview Goal: Plan of Care Review Outcome: Ongoing (Interventions Implemented as Appropriate) 02/18/20 1433 Plan of Care Review Progress progress towards functional goals is fair Coping/Psychosocial Plan Of Care Reviewed With patient OUTCOME EVALUATION NOTE: Patient denied pain at start of shift but continued to endorse intermittent burning that 'feels like heartburn'. Denies nausea but continues to have decreased PO intake. MD bedside to assess patient this morning. Patient attempted a few bites of lunch and then reported 8/10 'burning' pain in upper a bdomen immediately following bites of food, MD paged. Adequate but low UOP through urostomy. Moderate/large amounts of green liquid continue from flexiseal. Pt was changed and up to chair x1 this shift to clean up patient and bed as flexiseal output still continues to leak onto bed. Moderate amounts of yellow/serosanguineous output continues from DARYN drain. APS bedside to review epidural again, nochanges made. Overall, patient providing more adequate answers than on previous shift and appearingmore ready/willing to participate in care. Will continue to monitor. Update: pt attempt to ambulate but after standing up from chair with FWW, reported feeling 'too unsteady' and wanted to return to bed. 2nd bolus ordered and given. ? PLAN MOVING FORWARD: ?? Wean PCEA I&O's; Encouraging PO intake OOB and ambulation as tolerated Urostomy education INDIVIDUALIZED FALL PREVENTION INTERVENTIONS: ??High fall risk ?? Patient-specific fall risk factors per assessment: [current deficits]:?Recent surgery, n/v, intermittent pain, IVF, PCEA, generalized weakness, frequent stools/incontinence, drains/devices, medication effects ?? Assistance [level of assistance required for transfers and ambulation]:??Ax1 with FWW ?? Supervision [direct monitoring required during toileting and ADLs]:?Hands on ?? Surveillance [continuous indirect monitoring]:?Bed/chair alarm, masimo, hourly rounding, room near unit station, NKE at bedside, yellow fall band on, environmental modifications (clutter-free environment, tubing secured, bed low, lighting adjusted, nonskid socks when OOB, bed wheels locked, calllight with in reach, upper side rails x2, ID bands on) ?? Patient-specific fall prevention interventions for sensory deficits provided, if applicable:?[X]N/A CPG GOAL OUTCOME EVALUATION: Goal: Fall Prevention-Safe Patient Handling Outcome: Ongoing (Interventions Implemented as Appropriate) 02/18/20 1045 Daily Care Interventions Self-Care Promotion independence encouraged;BADL personal objects within reach Bearden Fall Risk History of Falling 25 Secondary Diagnosis 15 Ambulatory Aids 15 Intravenous Therapy/Heparin/Saline Lock 20 Gait/Transferring 10 Mental Status 0 Score 85 OTHER Bearden Fall Risk High Restraint Interventions Safety Promotion/Fall Prevention activity supervised;fall prevention program maintained;nonskid shoes/slippers when out of bed;safety round/check completed Positioning Body Position independent Activity Activity Type activity adjusted per tolerance;activity encouraged Activity Assistance Provided assistance, 1 person Assistive Device Utilized front-wheel walker Goal: Infection Control Outcome: Ongoing (Interventions Implemented as Appropriate) 02/18/20 1045 Safety Interventions Isolation Precautions standard precautions maintained Infection Prevention environmental surveillance performed;equipment surfaces disinfected;personal protective equipment utilized;rest/sleep promoted;single patient room provided;visitors restricted/screened Coping Strategies Supportive Measures active listening utilized;decision-making supported;goal setting facilitated;positive reinforcement provided;problem solving facilitated;relaxation techniques promoted;self-care encouraged;self- responsibility promoted;verbalization of feelings encouraged Problem: Nausea/Vomiting (Adult) Goal: Symptom Relief Patient will demonstrate the desired outcomes by discharge/transition of care. Outcome: Ongoing (Interventions Implemented as Appropriate) 02/18/20 0628 Nausea/Vomiting (Adult) Symptom Relief making progress toward outcome * Plan of Care - Samy Knight RN - 02/18/2020 6:39 AM EDT Problem: Patient Care Overview Goal: Plan of Care Review Outcome: Ongoing (Interventions Implemented as Appropriate) 02/16/20 0121 02/17/207 Plan of Care Review Progress progress toward functional goals as expected -- Coping/Psychosocial Plan Of Care Reviewed With -- patient OUTCOME EVALUATION NOTE: OUTCOME SUMMARY: Patient rested well between care. Pain well managed with epidural. Low UOP in urostomy, MD aware. Flexiseal continues to put out large amounts of liquid. DARYN also puts out large amounts. Repositioned self with encouragement. Otherwise, uneventful shift. All needs met PLAN MOVING FORWARD: Continue current plan, encourage mobilization, encourage PO intake, monitor for pain and nausea, monitor UOP, INDIVIDUALIZED FALL PREVENTION INTERVENTIONS: High Fall Risk, Patient-specific fall risk factors per assessment: [current deficits]: IV catheter, SCD's, opioid pain medication, 2 or more medical diagnosis, uses walker to ambulate, flexiseal, epidural, DARYN, Urostomy, Assistance [level of assistance required for transfers and ambulation]: Patient has not been OOB, Supervision [direct monitoring required during toileting and ADLs]: Eyes on, Surveillance [continuous indirect monitoring]: Purposeful rounding, bed alarm, chair alarm, NKE at bedside, bed in low position, nonskid shoes when OOB, personal items within reach, Patient-specific fall prevention interventions for sensory deficits provided, if applicable: [X] No CPG GOAL OUTCOME EVALUATION: Goal: Individualization & Mutuality Outcome: Ongoing (Interventions Implemented as Appropriate) 02/14/20 0807 02/15/20 1521 Mutuality/Individual Preferences What Anxieties, Fears or Concerns Do You Have About Your Health or Care? no -- What Questions Do You Have About Your Health or Care? no -- What Information Would Help Us Give You More Personalized Care? -- my arm tremors are when I get cold Goal: Fall Prevention-Safe Patient Handling Outcome: Ongoing (Interventions Implemented as Appropriate) 02/16/20 0829 02/17/20 1348 02/17/202126 Daily Care Interventions Self-Care Promotion independence encouraged;BADL personal objects within reach -- -- Bearden Fall Risk History of Falling -- -- 25 Secondary Diagnosis -- -- 15 Ambulatory Aids -- -- 15 Intravenous Therapy/Heparin/Saline Lock -- -- 20 Gait/Transferring -- -- 10 Mental Status -- -- 0 Score -- -- 85 OTHER Bearden Fall Risk -- -- High Restraint Interventions Safety Promotion/Fall Prevention -- -- activity supervised;fall prevention program maintained;nonskid shoes/slippers when out of bed;safety round/check completed Positioning Body Position -- -- independent Activity Activity Type -- ambulated in room -- Activity Assistance Provided -- assistance, 1 person -- Assistive Device Utilized -- front-wheel walker -- Goal: Infection Control Outcome: Ongoing (Interventions Implemented as Appropriate) 02/17/202126 Safety Interventions Isolation Precautions standard precautions maintained Infection Prevention environmental surveillance performed;personal protective equipment utilized;rest/sleep promoted;single patient room provided Coping Strategies Supportive Measures active listening utilized;counseling provided;decision- making supported;goal setting facilitated;positive reinforcement provided;problem solving facilitated;relaxation techniques promoted;self-care encouraged;verbalization of feelings encouraged Goal: Discharge Needs Assessment Outcome: Ongoing (Interventions Implemented as Appropriate) 02/14/20 1407 02/14/20 1549 Discharge Needs Assessment Concerns To Be Addressed -- adjustment to diagnosis/illness concerns Readmission Within The Last 30 Days -- no previous admission in last 30 days Equipment Needed After Discharge colostomy/ostomy supplies -- Current Discharge Risk -- chronically ill Discharge Disposition -- still a patient Living Environment Transportation Available -- Medicaid transportation;family or friend will provide Activity/Self Care Review of Systems Equipment Currently Used at Home -- colostomy/ostomy supplies Goal: Interdisciplinary Rounds/Family Conf Outcome: Ongoing (Interventions Implemented as Appropriate) 02/15/20 1521 Interdisciplinary Rounds/Family Conf Participants nursing;physician;physical therapy;social work/services * Plan of Care - Chantale Vee RN - 02/17/2020 3:31 PM EDT Problem: Patient Care Overview Goal: Plan of Care Review Outcome: Ongoing (Interventions Implemented as Appropriate) 02/16/20 0121 02/17/20 1000 Plan of Care Review Progress progress toward functional goals as expected -- Coping/Psychosocial Plan Of Care Reviewed With -- patient OUTCOME EVALUATION NOTE: OUTCOME SUMMARY: Pt had 0-2/10 pain managed with epidural.Soap and Water precautions maintained most of day for ruleout C.Dif. UOP low. Team notified. Pt had multiple incontinent episodes of stool from leakage around flexiseal. Barrier cream applied and q2 hour turns maintained. DARYN putting out copious amounts of se ginny/serosanguinous output. Epidural bag changed in a.m. Encourage pt to walk and eat. Pt agreed totry vanilla pudding and sit up in chair for 30 minutes. [id number]: 500ml LR bolus given. C Dif. Negative. Soap and water precautions d/c'ed. PLAN MOVING FORWARD: Continue to monitor pain. Encourage oob and ambulation. Q 2 hr turns. Monitor for incontinent episodes. Monitor UOP. INDIVIDUALIZED FALL PREVENTION INTERVENTIONS: High fall Risk Patient-specific fall risk factors per assessment: [current deficits]: Patient has a history of falling, 2 or more active diagnoses, recent surgery, has an actively infusing IV line, uses an ambulatory aid, has generalized weakness (or impairment), tubes/drains, lyles catheter, pain, opioids for pain, is taking (anti-arrhythmic, anti-hypertensive, cardiac, anti-depressants, anti-psychotic, sleep aids, anti-histamines), has sensory deficits (SPOKANE, wears glasses, tactile deficits), forgets limitations, problems (urge/stress incontinence, diarrhea, nausea/vomiting, spine precautions) Assistance [level of assistance required for transfers and ambulation]: 1 a w/fww Supervision [direct monitoring required during toileting and ADLs]: Hands on Surveillance [continuous indirect monitoring]: Hourly rounding, observation by staff, NKE at bedside. Assistive device, bed/chair alarm, family at bedside, commode/urinal/bedpan at bedside, environmental modifications (reduce clutter, lighting adjusted for safety, IV tubing and cords are free from the floor), glasses at bedside, hearing aids in or at the bedside, nonskid shoes/slippers when out of bed, sitter at bedside, bed in low position, upper position siderails raised x2 (x3), wheels locked, call light in reach, ID bands on, yellow falls ID band on Patient-specific fall prevention interventions for sensory deficits provided, if applicable: Yes, glasses at bedside CPG GOAL OUTCOME EVALUATION: * Plan of Care - Noah Gomez RN - 02/17/2020 6:13 AM EDT Problem: Patient Care Overview Goal: Plan of Care Review 02/17/20 0552 Coping/Psychosocial Plan Of Care Reviewed With patient OUTCOME EVALUATION NOTE: OUTCOME SUMMARY: Pt continuously stooling watery green incontinent stool, unable to know when he was going to go. Perirectal and scrotal area very red and excoriated and very painful, pt was moaning and almost to tears during incontinence care, barrier cream used with each change, order for flexiseal obtained. Flexiseal has been leaking a bit but skin has already improved. Midline incision CDI, ANTWON, irvin intact. Low urine output from urostomy, 1000cc bolus given. Epidural controlling pain well. PLAN MOVING FORWARD: wean from epidural ambulate INDIVIDUALIZED FALL PREVENTION INTERVENTIONS: Patient-specific fall risk factors per assessment: generalized weakness Assistance: 1-2 assist, FWW, Supervision: Hands on Surveillance: Bed locked in low position, call vora within reach, purposeful hourly rounding, clutter free environment, bed/chair alarm on, Patient-specific fall prevention interventions for sensory deficits provided: na CPG GOAL OUTCOME EVALUATION: Continue care plan as documented. * Plan of Care - Elsy Haynes RN - 02/16/2020 5:45 PM EDT Problem: Skin Integrity Impairment, Risk/Actual (Adult) Goal: Skin Integrity/Wound Healing Patient will demonstrate the desired outcomes by discharge/transition of care. Outcome: Ongoing (Interventions Implemented as Appropriate) 02/15/20 1521 Skin Integrity Impairment, Risk/Actual (Adult) Skin Integrity/Wound Healing making progress toward outcome Problem: Patient Care Overview Goal: Plan of Care Review Outcome: Ongoing (Interventions Implemented as Appropriate) 02/16/20 0121 02/16/20 0829 Plan of Care Review Progress progress toward functional goals as expected -- Coping/Psychosocial Plan Of Care Reviewed With -- patient OUTCOME EVALUATION NOTE: OUTCOME SUMMARY: ?? Patient had emesis and nausea following breakfast at start of shift, IV compazine given with good effect. However, pt continued to report decreased appetite and pain in sternal/upper abdomen area at start of shift, describing pain as 'burning', stating it 'feels like heartburn', denies any difficulty breathing. Patient reports the pain as 1/10, paged, IV protonix ordered and given with good effect. Patient in general looking unwell/fatigued. APS bedside to assess epidural rate, no new ordersgiven. Patient has been incontinent of green stool throughout shift 7x+, with reddened/inflammed skin and pain noted on underside of scrotum and perianal area, barrier cream frequently applied, MD vinnie re. Adequate UOP through urostomy, moderate-large amounts of serosanguineous drainage continues from DARYN drain. Will continue to monitor. ?? PLAN MOVING FORWARD: ?? Wean PCEA I&O's; nausea management OOB and ambulation as tolerated Urostomy education Discharge planning ?? INDIVIDUALIZED FALL PREVENTION INTERVENTIONS: ??High fall risk ?? Patient-specific fall risk factors per assessment: [current deficits]:?Recent surgery, n/v, intermittent pain, IVF, PCEA, generalized weakness, frequent stools/incontinence, drains/devices, medication effects ?? Assistance [level of assistance required for transfers and ambulation]:??Ax1 with FWW ?? Supervision [direct monitoring required during toileting and ADLs]:?Hands on ?? Surveillance [continuous indirect monitoring]:?Bed/chair alarm, masimo, hourly rounding, room near unit station, NKE at bedside, yellow fall band on, environmental modifications (clutter-free environment, tubing secured, bed low, lighting adjusted, nonskid socks when OOB, bed wheels locked, calllight with in reach, upper side rails x2, ID bands on) ?? Patient-specific fall prevention interventions for sensory deficits provided, if applicable: [X] N/A CPG GOAL OUTCOME EVALUATION: Goal: Fall Prevention-Safe Patient Handling Outcome: Ongoing (Interventions Implemented as Appropriate) 02/16/20 0829 Daily Care Interventions Self-Care Promotion independence encouraged;BADL personal objects within reach Bearden Fall Risk History of Falling 25 Secondary Diagnosis 15 Ambulatory Aids 15 Intravenous Therapy/Heparin/Saline Lock 20 Gait/Transferring 10 Mental Status 0 Score 85 OTHER Bearden Fall Risk High Restraint Interventions Safety Promotion/Fall Prevention activity supervised;fall prevention program maintained;nonskid shoes/slippers when out of bed;safety round/check completed Positioning Body Position independent Activity Activity Type activity adjusted per tolerance Activity Assistance Provided assistance, 2 people Assistive Device Utilized front-wheel walker Goal: Infection Control Outcome: Ongoing (Interventions Implemented as Appropriate) 02/16/20 0829 Safety Interventions Isolation Precautions standard precautions maintained Infection Prevention environmental surveillance performed;equipment surfaces disinfected;personal protective equipment utilized;rest/sleep promoted;single patient room provided;visitors restricted/screened Coping Strategies Supportive Measures active listening utilized;decision-making supported;goal setting facilitated;positive reinforcement provided;problem solving facilitated;relaxation techniques promoted;self-care encouraged;self- responsibility promoted;verbalization of feelings encouraged Goal: Discharge Needs Assessment Outcome: Ongoing (Interventions Implemented as Appropriate) 02/14/20 1407 02/14/20 1549 Discharge Needs Assessment Concerns To Be Addressed -- adjustment to diagnosis/illness concerns Readmission Within The Last 30 Days -- no previous admission in last 30 days Equipment Needed After Discharge colostomy/ostomy supplies -- Current Discharge Risk -- chronically ill Discharge Disposition -- still a patient Living Environment Transportation Available -- Medicaid transportation;family or friend will provide Activity/Self Care Review of Systems Equipment Currently Used at Home -- colostomy/ostomy supplies Goal: Interdisciplinary Rounds/Family Conf Outcome: Ongoing (Interventions Implemented as Appropriate) 02/15/20 1521 Interdisciplinary Rounds/Family Conf Participants nursing;physician;physical therapy;social work/services Problem: Nausea/Vomiting (Adult) Goal: Identify Related Risk Factors and Signs and Symptoms Related risk factors and signs and symptoms are identified upon initiation of Human Response Clinical Practice Guideline (CPG) Outcome: Ongoing (Interventions Implemented as Appropriate) 02/14/20 1407 02/16/20 1732 Nausea/Vomiting Nausea/Vomiting: Related Risk Factors medication effects;recent surgery with general anesthesia -- Nausea/Vomiting: Signs and Symptoms -- report of emesis;abdominal discomfort/pain;report of queasy sensation Goal: Symptom Relief Patient will demonstrate the desired outcomes by discharge/transition of care. Outcome: Ongoing (Interventions Implemented as Appropriate) 02/16/20 0121 Nausea/Vomiting (Adult) Symptom Relief making progress toward outcome * Consult Note - Annette Escamilla RN - 02/16/2020 11:17 AM EDT Inpatient post op note Diagnosis: Bladder Cancer Surgery/Date: 02/13/20 Procedure(s) (LRB): @CYSTECTOMY, COMPLETE, WITH ILEAL CONDUIT (WRVU 36.33) (N/A) @LYMPHADENECTOMY, PELVIC, INCLUDING MULTIPLE NODES-FELA (WRVU 14.06) (Bilateral) LIVER BIOPSY (N/A) Appliance: Intact 1 / w/ ring Changed: [x} No Stoma: Goldsby, budded, edematous, red stent drips urine, blue stent did not have any urine flow againtoday. I paged and spoke with Dr. Jean-Baptiste who stated she did flush the blue stent yesterday but will come by again today to flush a second time. Peristomal Skin: Not assessed as pouch was not changed. Teaching: Reviewed care of overnight bag and attaching/detaching from it. He practiced this two times. I advised him and his nurse to have him practice disconnecting if he walks over the weekend. Family Present: [x} No Psychosocial Acceptance: Patient was more coherent today and attentive to teaching although he was tired and complained of chest pain. I did alert his nurse, Tobias, of this chest pain. She stated he told her he had heart burn but would go in to assess patient. He was able to look at stoma and participate in care. Special Notes: Patient did not want his friend to come in as he felt it would inconvenience him. I told him that we could call and work around his schedule but he stated he just wanted visiting nurses. I reassured him we would help set that up for him but it might also be helpful to have his friends support. The patient did not answer. We can ask him again next week. * Plan of Care - Jono Sommer RN - 02/16/2020 1:23 AM EDT Problem: Patient Care Overview Goal: Plan of Care Review Outcome: Ongoing (Interventions Implemented as Appropriate) 02/15/20 2139 02/16/20 0121 Plan of Care Review Progress -- progress toward functional goals as expected Coping/Psychosocial Plan Of Care Reviewed With patient -- OUTCOME EVALUATION NOTE: OUTCOME SUMMARY: Patient A&Ox4, VSS, resting between care. Pain up to 3/10; controlled with PCEA. Scant bloody drainage within CHG window of PCEA dressing. Intermittent nausea; zofran x1. Adequate UOP via urostomy. Multiple loose, incontinent BMs this shift; patient up to bathroom with BM x2. DARYN with copious amounts of serosanguinous output; dressing changed x2. Moved patient from 211A to room 206 around 2230. Will continue to monitor. ?? PLAN MOVING FORWARD: ?? Pain management/Wean PCEA Monitor DARYN output OOB and ambulation as tolerated Urostomy education Discharge planning ?? INDIVIDUALIZED FALL PREVENTION INTERVENTIONS: High fall risk ?? Patient-specific fall risk factors per assessment: [current deficits]: 2 or more active diagnoses, recent surgery, acute pain, opioid PCEA, PIV, port, urostomy, DARYN, continuous infusions, RLE pain, ?? Assistance [level of assistance required for transfers and ambulation]: 1FWW ?? Supervision [direct monitoring required during toileting and ADLs]: Hands on ?? Surveillance [continuous indirect monitoring]: Bed/chair alarm, masimo, hourly rounding, room near unit station, NKE at bedside, yellow fall band on, environmental modifications (clutter-free environment, tubing secured, bed low, lighting adjusted, nonskid socks when OOB, bed wheels locked, call light with in reach, upper side rails x2, ID bands on) Patient-specific fall prevention interventions for sensory deficits provided, if applicable: [X] N/A CPG GOAL OUTCOME EVALUATION: Goal: Individualization & Mutuality Outcome: Ongoing (Interventions Implemented as Appropriate) 02/14/20 0807 02/15/20 1521 Mutuality/Individual Preferences What Anxieties, Fears or Concerns Do You Have About Your Health or Care? no -- What Questions Do You Have About Your Health or Care? no -- What Information Would Help Us Give You More Personalized Care? -- my arm tremors are when I get cold Goal: Fall Prevention-Safe Patient Handling Outcome: Ongoing (Interventions Implemented as Appropriate) 02/15/20213802/16/20 0023 Daily Care Interventions Self-Care Promotion independence encouraged;BADL personal objects within reach;BADL personal routines maintained -- Bearden Fall Risk History of Falling 25 -- Secondary Diagnosis 15 -- Ambulatory Aids 15 -- Intravenous Therapy/Heparin/Saline Lock 20 -- Gait/Transferring 0 -- Mental Status 0 -- Score 75 -- OTHER Bearden Fall Risk High -- Restraint Interventions Safety Promotion/Fall Prevention activity supervised;muscle strengthening facilitated;fall prevention program maintained;nonskid shoes/slippers when out of bed;safety round/check completed -- Positioning Body Position independent -- Activity Activity Type -- ambulated to bathroom Activity Assistance Provided -- assistance, 2 people Assistive Device Utilized -- front-wheel walker Goal: Infection Control Outcome: Ongoing (Interventions Implemented as Appropriate) 02/15/202138 Safety Interventions Isolation Precautions standard precautions maintained Infection Prevention barrier precautions utilized;environmental surveillance performed;rest/sleep promoted;single patient room provided Coping Strategies Supportive Measures active listening utilized;decision-making supported;goal setting facilitated;positive reinforcement provided;self-reflection promoted;self-responsibility promoted;verbalization offeelings encouraged;problem solving facilitated;relaxation techniques promoted;self-care encouraged Goal: Discharge Needs Assessment Outcome: Ongoing (Interventions Implemented as Appropriate) 02/14/20 1407 02/14/20 1549 Discharge Needs Assessment Concerns To Be Addressed -- adjustment to diagnosis/illness concerns Readmission Within The Last 30 Days -- no previous admission in last 30 days Equipment Needed After Discharge colostomy/ostomy supplies -- Current Discharge Risk -- chronically ill Discharge Disposition -- still a patient Living Environment Transportation Available -- Medicaid transportation;family or friend will provide Activity/Self Care Review of Systems Equipment Currently Used at Home -- colostomy/ostomy supplies Goal: Interdisciplinary Rounds/Family Conf Outcome: Ongoing (Interventions Implemented as Appropriate) 02/15/20 1521 Interdisciplinary Rounds/Family Conf Participants nursing;physician;physical therapy;social work/services Problem: Nausea/Vomiting (Adult) Goal: Identify Related Risk Factors and Signs and Symptoms Related risk factors and signs and symptoms are identified upon initiation of Human Response Clinical Practice Guideline (CPG) Outcome: Ongoing (Interventions Implemented as Appropriate) 02/14/20 1407 Nausea/Vomiting Nausea/Vomiting: Related Risk Factors medication effects;recent surgery with general anesthesia Nausea/Vomiting: Signs and Symptoms abdominal discomfort/pain;report of queasy sensation Goal: Symptom Relief Patient will demonstrate the desired outcomes by discharge/transition of care. Outcome: Ongoing (Interventions Implemented as Appropriate) 02/16/20 0121 Nausea/Vomiting (Adult) Symptom Relief making progress toward outcome * Plan of Care - Chantale Tavares OT - 02/15/2020 3:41 PM EDT Occupational Therapy Evaluation Patient profile: Wally Aguilar is a 69 y.o. male with PMH of asthma, hypertension, bilateral lowerextremity claudication, hyperlipidemia and bladder cancer who is POD2 s/p cystoprostatectomy with ileal conduit for MIBC. 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 Past Medical History: Diagnosis Date ??? Asthma ??? Cancer kidney ??? Chronic pain right calf paiins him since his hip surgery ??? COPD (chronic obstructive pulmonary disease) pt has asthma but states he does not have copd or emphysema ??? Delayed emergence from anesthesia ??? GERD (gastroesophageal reflux disease) ??? Hypertension ??? Intraoperative complication during his only surgery (hip from a fall off a doroteo[place] 1990 [place] he woke up during the procedure ??? PAD (peripheral artery disease) ??? Peptic ulcer disease ??? Seizure last seizure was 20 years ago ~ suffered from epilepsy but does not seem to be an issue anymore ??? Status post chemotherapy just had 8 weeks pf treatments 3 weeks ago ??? Transfusion history does not know ??? Urolithiasis ??? Vertigo balance problems only from the left leg being longer than the right leg from his hip surgery Past Surgical History: Procedure Laterality Date ??? AORTO-ILIAC BYPASS GRAFT endarterectomy ??? CT GUIDED BIOPSY LYMPH NODE(CHEST/ABD/PELVIS) 01/31/2020 CT Guided Biopsy Lymph Node (Chest/Abd/Pelvis) 01/31/2020 [facility] RAD CAT SCAN ??? HIP FRACTURE SURGERY Right 1991 ??? INGUINAL HERNIA REPAIR Right ??? IR MEDIPORT PLACEMENT/EXCHANGE 11/27/2019 IR Mediport Placement 11/27/2019 Jason Lujan, PA [facility] INTERVENTIONL RAD ??? PRO CYSTECTOMY, ILEAL CONDUIT/SIGMOID BLADDER N/A 02/13/2020 @CYSTECTOMY, COMPLETE, WITH ILEAL CONDUIT (WRVU 36.33) performed by Nima Armstrong MD at [facility] LYNETTE ??? PRO NEEDLE BIOPSY LIVER N/A 02/13/2020 LIVER BIOPSY performed by Nima Armstrong MD at [facility] MAIN OR ??? PRO REMOVE PELVIS LYMPH NODES Bilateral 02/13/2020 @LYMPHADENECTOMY, PELVIC, INCLUDING MULTIPLE NODES-FELA (WRVU 14.06) performed by Nima Armstrong MDat [facility] MAIN OR Social History: Patient lives with a roommate Home Setup: 2nd floor apt with full FOS to enter. Bathroom with tubshower Baseline ADL/Mobility: Pt is independent with ADLs at baseline and ambulates with straight cane. [place] not drive but is able to walk to nearby shops. Precautions/Special Considerations: ambulate, urostomy, DARYN drain, epidural, blood transfusion, midline incision, port, fall risk Subjective: I need to get to the bathroom fast! Objective: Seen today for OT evaluation. Cognitive Status/Behavior: ?? Behavior / Mood: alert, cooperative and flat affect ?? Alert and oriented to: person, place and situation. Date not formally assessed ?? Follows commands: 2 step ?? Attention: requires cues to redirect ?? Safety awareness: mild impairment, mildly impulsive Vision & Perception: ?? WNL/WFL Communication: WFL Range of motion, strength, coordination: Hand dominance: right Bilateral UEs are within functional limitations Activities of Daily Living: Self-feeding: independent after set-up Grooming: independent after set-up Dressing: declined LB dressing. Able to reach feet to adjust socks independently in bed Toileting: able to ambulate in/out bathroom with 1A and FWW (additional assist for line management) Independent with toilet hygiene Transfer: CGA with FWW Functional Mobility: Supine to sit: Светлана with use of bed features Sit to stand: CGA with FWW Ambulation: CGA with FWW, ~20 ft x2. (additional 1A for line management) Does not bear weight in R heel during ambulation Stand to sit: CGA with FWW Sit to supine: supervision with use of bed features Balance: Sitting balance: good Standing balance: fair with FWW Pain: few instances of wincing, did not rate pain Education: patient have been educated on Role of occupational therapy/rehabilitation, Transfers, ADL, Positioning, Safety and Activity pacing/Energy conservation and verbalizes understanding. Patient status, treatment, and mobility recommendations discussed with nursing. Assessment: Pt has been seen for occupational therapy evaluation. Wally Aguilar presents with the following performance skill deficits and client factors: increased pain, decreased activity tolerance, decreased strength, decreased sitting/standing balance and coping. These performance deficits have led to activity limitations and participation restrictions in the following areas of occupation: dressing, bathing, grooming, toileting, transfers/mobility, rest/sleep, home management, leisure, community mobility and social participation. Pt pleasant and cooperative, willing to mobilize with therapy but presents as soft spoken with flat affect. Pt tolerated short distance ambulation in/out bathroom for toileting, but is quick to fatigue and returned to bed. Pt would benefit from further inpatient OT interventions to address performance deficits and maximize participation and independence with occupations of daily living. Equipment needs at discharge: TBD, likely FWW Anticipated Discharge Disposition: home with assist Other Recommendations: ?? OOB to chair for meals, ambulate as tolerated with FWW ?? Encourage participation in ADL's by providing set up A on tray table and physical assist only asneeded Goals: To be achieved by 02/28. Pt will perform seated shower with conditional independence Pt will stand at sink to brush teeth and wash face with conditional independence Pt will dress LB with conditional independence Pt will perform all aspects of toileting with conditional independence Pt will ambulate household distance with conditional independence and use of LRD Pt will demonstrate understanding of 2-3 energy conservation/pacing techniques for use during ADL/IADL tasks Plan: OT: Therapy Frequency: 2-3 times/wk Planned OT interventions: Transfers, Assistive device/technique, Adaptive equipment training, ADL, Positioning, Safety, Functional Mobility, Activity pacing/Energy conservation, Recommendations and Discharge planning. Total Evaluation Minutes, Occupational Therapy: 32(moderate complexity eval) 2017 OT Evaluation Code Rationale: ?? Diagnosis & Pertinent Co-Morbidities affecting Plan of Care: see PMHx ?? Occupational Profile & Client History: Brief Expanded Extensive x ?? Assessment of Occupational Performance: 1-3 performance deficits 3-5 performance deficits x 5 + performance deficits ?? Clinical Decision Making: Low Moderate High x Clinical decision making of moderate complexity using standardized patient assessment instrument and measurable assessment of functional outcome. Pager: [phone] Chantale Tavares OT 02/15/2020 Occupational Therapy Rehabilitation Department * Plan of Care - Miller Alexis, PT - 02/15/2020 3:40 PM EDT Physical Therapy Evaluation Patient profile: Wally Aguilar is a 69 y.o. male admitted on 02/12 for a cystoprostatectomy with ileal conduit for MIBC. DVT ruled out, pt has claudication RLE, multiple loose stools with some incontinence episodes Patient with the following active problems: Past Medical History: Diagnosis Date ??? Asthma ??? Cancer kidney ??? Chronic pain right calf paiins him since his hip surgery ??? COPD (chronic obstructive pulmonary disease) pt has asthma but states he does not have copd or emphysema ??? Delayed emergence from anesthesia ??? GERD (gastroesophageal reflux disease) ??? Hypertension ??? Intraoperative complication during his only surgery (hip from a fall off a doroteo) in 1990 [place] he woke up during the procedure ??? PAD (peripheral artery disease) ??? Peptic ulcer disease ??? Seizure last seizure was 20 years ago ~ suffered from epilepsy but does not seem to be an issue anymore ??? Status post chemotherapy just had 8 weeks pf treatments 3 weeks ago ??? Transfusion history does not know ??? Urolithiasis ??? Vertigo balance problems only from the left leg being longer than the right leg from his hip surgery Past Surgical History: Procedure Laterality Date ??? AORTO-ILIAC BYPASS GRAFT endarterectomy ??? CT GUIDED BIOPSY LYMPH NODE(CHEST/ABD/PELVIS) 01/31/2020 CT Guided Biopsy Lymph Node (Chest/Abd/Pelvis) 01/31/2020 [facility] RAD CAT SCAN ??? HIP FRACTURE SURGERY Right 1991 ??? INGUINAL HERNIA REPAIR Right ??? IR MEDIPORT PLACEMENT/EXCHANGE 11/27/2019 IR Mediport Placement 11/27/2019 Jason Lujan, PA [facility] INTERVENTIONL RAD ??? PRO CYSTECTOMY, ILEAL CONDUIT/SIGMOID BLADDER N/A 02/13/2020 @CYSTECTOMY, COMPLETE, WITH ILEAL CONDUIT (WRVU 36.33) performed by Nima Armstrong MD at [facility] LYNETTE ??? PRO NEEDLE BIOPSY LIVER N/A 02/13/2020 LIVER BIOPSY performed by Nima Armstrong MD at [facility] MAIN OR ??? PRO REMOVE PELVIS LYMPH NODES Bilateral 02/13/2020 @LYMPHADENECTOMY, PELVIC, INCLUDING MULTIPLE NODES-FELA (WRVU 14.06) performed by Nima Armstrong MDat [facility] MAIN OR Social History: Pt lives with a friend in a single level apartment with FOS to enter. 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 Pt. to utilize FWW and assist of 1 for ambulation and transfers with nursing. ?? Please encourage up to chair for meal times as able. ?? Pt encouraged to ambulate frequently with staff, getting into the bathroom for toileting and walking out in the tejeda >/= 3 times daily as able. Subjective: ???My leg didn't hurt like this before surgery?? Objective: Pt seen for evaluation today. Pain: RLE pain, increased in standing/ambulation,guards RLE, stays on toes, incisional pain, using MAIL PROCESSOR Vital Signs: SpO2: 92% on RA HR: 90 BP:102/64 Mental Status: alert, oriented to person, place, and time, brighter today than yesterday Vision: grossly WFL, Skin: drain, incision, urostomy, cachectic Musculoskeletal: ROM: does not fully plant R foot with gait Strength: generalized weakness Sensation: LT grossly intact Bed Mobility: Supine to Sit: mod asst to EOB Sit to Supine: min asst to support RLE Transfers: Sit to Stand: min asst from EOB Stand to Sit: cues to turn fully before sitting Bed to Toilet: min asst of 1 Gait: Distance: ~80 ft Device used: FWW Level of assist: Min asst/cga Gait mechanics: reduced jovan, antalgic, step to and walks on toes, avoiding foot flat Stairs: NT Balance: good sitting balance, fair standing balance Therex: encouraged to use IS for airway clearance Education: patient has been educated on Bed mobility, Transfers, Exercise, Breathing exercises, Positioning, Safety , Gait , Role of therapy, Balance and Discharge planning and demonstrates understanding. Patient status, treatment, and mobility recommendations discussed with nursing. Pt left supine in bed with HOB raised, bed alarm on, call vora within reach, all needs mets. RN updated. Assessment: Wally Aguilar was seen today for physical therapy evaluation. Pt presents with the following impairments: pain, integumentary integrity, ROM, strength, activity tolerance, gait and locomotion, endurance, midline incision and circulation. These impairments currently limit pt's ability to safely and independently perform functional mobility tasks, including bed mobility, transfers, ambulation, stair negotiation, and daily activities. The pt would benefit from skilled therapy serviceswhile in the hospital to maximize functional abilities. Pt's gait is limited by LE pain, claudication and decreased ROM. Tolerated ambulating in the hallway, drain site saturated and dripping. Pt is a smoker. Pt fatigued from multiple trips to the bathroom earlier today. Pt motivated, Anticipate ptwill make progress with ongoing pain management. Pt is expecting to d/c home with services and assist from friends. May need a FWW at discharge. Plan: Therapy Frequency: (P) 2-4 times/wk for therapy including bed mobility training, gait training, patient/family education, range of motion, stair training, stretching, transfer training and airway clearance. Patient/family understand and agree with plan as stated above. Discharge Recommendations: Based on the current findings, when medically ready for hospital discharge: -Anticipated Discharge Disposition: (P) home with assist, home with home health -Discussed with RN Goals: To be achieved by 02/19: 1. Pt. to demonstrate knowledge of safety limitations and precautions and will appropriately request assistance for functional activities and to mobilize. 2. Pt. to demonstrate understanding of appropriate LE ROM exercises. 3. Pt. to perform bed mobility with modified independence. 4. Pt. to perform sit to stand transfers with modified independence using LRD. 5. Pt. to ambulate 100 feet with modified independence using a LRD. 6. Pt. to ambulate up/down 12 step/stairs using one rail with supervision. 7. Family or caregiver to demonstrate understanding of therapeutic interventions to support the care of the patient. 2017 PT Evaluation Code Rationale: ?? Diagnosis & Pertinent Co-Morbidities, personal factors, and present illness affecting Plan of Care: (see above); Additional personal factors or co- morbidities that impact plan: ?? Total # of Factors: 0 1-2 3+ x ?? Examination of body system impairments, functional limitations and behaviors, and/or participation restrictions. Addressing 1-2 elements Addressing 3 + elements Addressing 4 + elements x ?? Clinical presentation: See assessment above. Stable/Uncomplicated Evolving/Fluctuating Symptoms Unstable/Unpredictable x ?? Clinical decision making of low complexity based on pt's functional performance as outlined in this evaluation. Time IN / OUT: 15:08-15:40 Total Evaluation Minutes, Physical Therapy: (P) 32 MILLER ALEXIS, PT Pager: [phone] Physical Therapy Inpatient Rehabilitation Department * Plan of Care - Leigha Kiser RN - 02/15/2020 3:32 PM EDT Problem: Skin Integrity Impairment, Risk/Actual (Adult) Goal: Skin Integrity/Wound Healing Patient will demonstrate the desired outcomes by discharge/transition of care. Outcome: Ongoing (Interventions Implemented as Appropriate) 02/15/20 1521 Skin Integrity Impairment, Risk/Actual (Adult) Skin Integrity/Wound Healing making progress toward outcome Problem: Patient Care Overview Goal: Plan of Care Review Outcome: Ongoing (Interventions Implemented as Appropriate) 02/15/20 1521 Plan of Care Review Progress progress toward functional goals as expected Coping/Psychosocial Plan Of Care Reviewed With patient OUTCOME EVALUATION NOTE: OUTCOME SUMMARY: Vinny reports his pain is better-at rest 0/10 up to 2-3 seen grimacing; 2 units RBCsinfused today 1st hgb recheck 8.3 2nd 10.3 ; no nausea- diet adv to regular unable to tolerated d/t cramping pain and heartburn which resolved on its own later returned in afternoon given zofran; freqloose green BMs; ambulated to BR 2x to sit on toilet; atomic process engineer bedside for appliance xchg; BIT bedside for a while interrupted by blood transfusion- states will f/u later; PT/OT in afternoon; tremors to UEs at baseline when I am cold; all needs met PLAN MOVING FORWARD: Monitor labs/VS; Urostomy teaching; DC planning INDIVIDUALIZED FALL PREVENTION INTERVENTIONS: High fall risk Patient-specific fall risk factors per assessment: [current deficits]: PCEA; RLE PVD; Tubing Assistance [level of assistance required for transfers and ambulation]: 1 assist FWW Supervision [direct monitoring required during toileting and ADLs]: Eyes on Surveillance [continuous indirect monitoring]: Nurse knowledge exchange at bedside; purposeful rounding; call vora in reach; environmental modifications; comfort and safety measures maintained Patient-specific fall prevention interventions for sensory deficits provided, if applicable: [X] No CPG GOAL OUTCOME EVALUATION: Goal: Individualization & Mutuality Outcome: Ongoing (Interventions Implemented as Appropriate) 02/15/20 1521 Mutuality/Individual Preferences What Information Would Help Us Give You More Personalized Care? my arm tremors are when I get cold Goal: Fall Prevention-Safe Patient Handling Outcome: Ongoing (Interventions Implemented as Appropriate) 02/15/20 0730 Daily Care Interventions Self-Care Promotion independence encouraged;BADL personal objects within reach Bearden Fall Risk History of Falling 25 Secondary Diagnosis 15 Ambulatory Aids 15 Intravenous Therapy/Heparin/Saline Lock 20 Gait/Transferring 0 Mental Status 0 Score 75 OTHER Bearden Fall Risk High Restraint Interventions Safety Promotion/Fall Prevention activity supervised;fall prevention program maintained;muscle strengthening facilitated;nonskid shoes/slippers when out of bed Positioning Body Position supine, head elevated Activity Activity Type activity encouraged Activity Assistance Provided assistance, 1 person Assistive Device Utilized front-wheel walker Goal: Infection Control Outcome: Ongoing (Interventions Implemented as Appropriate) 02/15/20 0730 Safety Interventions Isolation Precautions standard precautions maintained Infection Prevention barrier precautions utilized;cohorting utilized;environmental surveillance performed;rest/sleep promoted Coping Strategies Supportive Measures active listening utilized;goal setting facilitated;self-care encouraged Goal: Discharge Needs Assessment Outcome: Ongoing (Interventions Implemented as Appropriate) 02/14/20 1407 02/14/20 1549 Discharge Needs Assessment Concerns To Be Addressed -- adjustment to diagnosis/illness concerns Readmission Within The Last 30 Days -- no previous admission in last 30 days Equipment Needed After Discharge colostomy/ostomy supplies -- Current Discharge Risk -- chronically ill Discharge Disposition -- still a patient Living Environment Transportation Available -- Medicaid transportation;family or friend will provide Activity/Self Care Review of Systems Equipment Currently Used at Home -- colostomy/ostomy supplies Goal: Interdisciplinary Rounds/Family Conf Outcome: Ongoing (Interventions Implemented as Appropriate) 02/15/20 1521 Interdisciplinary Rounds/Family Conf Participants nursing;physician;physical therapy;social work/services * Consult Note - Annette Escamilla RN - 02/15/2020 3:17 PM EDT atomic process engineer note: Received return call from OR staff stating that Dr. Jean-Baptiste received my page earlier regarding the blue stent without urine flow but she was still in the OR and would attend to it after. * Consult Note - Clayton Norris MSW - 02/15/2020 12:36 PM EDT BIT Evaluation Referral source: Consult request by primary team physician Reason for referral: Other: coping, not interacting Relevant history: Wally Aguilar is a 69 y.o. M currently 2 days s/p a cystoprostatectomy with ileal conduit for MIBC. Pt has a PMHx significant for asthma, hypertension, bilateral lower extremity claudication, hyperlipidemia and bladder CA. 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 Pt indicate that he would be open to engaging in BIT services at this time. Pt reported that he currently lives in a rented 2nd floor apt, which he shares with his friend Boubacar. Pt reported that he is retired and that he relocated to [place] from [place] 4 years ago to help support his brother after he lost his job. Pt reported that in addition to his brother he has a number of good friends that he can really on should he need support, however stated that he generally tends to prefer to address his problems on his own. He stated that when he does need help he usuallyrelies on his roommate Boubacar, who is currently helping helping to take care of his pet ramona Chicas. Pt reported that he no longer drives, however transportation is not really an issue for him hishe lives in close proximity to the shops, and also has access to public transport should he need it. Session ended at this time to allow pt to meet with RN. Pt stated that he would be open to follow up again either later today or tomorrow. Assessment: Pt was lying in bed and was open to meeting with BRITTNI AGUILA. Pt presented as quiet/subdued, with noticeable abdominal discomfort throughout the meeting . While he engaged in discussion he made little eye contact, and often benefited from prompting. Speech was quiet with responses at times being somewhat delayed. Thoughts were closely associated. Pt acknowledges that he is finding it difficult to cope with current hospitalization and is open to exploring BIT supportive services. Cad Operator will follow up with pt later today or tomorrow to continue discussion and complete biopsychosocial. Interventions delivered: Supportive therapy Plan: 1) BRITTNI AGUILA will follow up with pt either later today or tomorrow to continue biopsychosocial assessment, and to explore with pt how best to provide supportive services to pt at this time Medication Assisted Treatment Plan (select yes if referral reason indicates AUD, OUD or ULISSES - other): No medication assisted treatment plan needed. Discharge Planning Needs: Other: not identified at this time Time spent with the patient (min):15 minutes Time spent on case coordination (min): 15 minutes * Consult Note - Annette Escamilla RN - 02/15/2020 10:44 AM EDT Images from the original note were not included. Inpatient post op note Diagnosis: Bladder Cancer Surgery/Date: 02/13/20 Procedure(s) (LRB): @CYSTECTOMY, COMPLETE, WITH ILEAL CONDUIT (WRVU 36.33) (N/A) @LYMPHADENECTOMY, PELVIC, INCLUDING MULTIPLE NODES-FELA (WRVU 14.06) (Bilateral) LIVER BIOPSY (N/A) Appliance: Removed [place] 09/12, replaced with same but added a ring as there was leakage from 1 to 5 oclock on medial side Changed: [x} Yes Stoma: Red, budded, edematous, in between 1 /4 and 1 3/8 round, blue and red stents present - urine only dripping from the Red stent. I sent a page to urology team to alert them that the blue stent did not have urine flow Peristomal Skin: Intact, very mild erythema along edge that had leakage. Teaching: Reviewed pouch change and connection/disconnection from overnight bag and when/how to drain urine from the pouch. Patient seemed slightly confused. He was able to state that he was [facility] in [place], [place] but did not know the name. He stated that the year was 2019 but could not remember the name of the president. I asked him if he knew what type of surgery he had and he said they cut my bowel. I explained to him that they removed his bladder and did cut his bowel to use a piece of it as a passage way for his urine. He nodded his head that he understood, though I am not sure how much patient is retaining. Family Present: [x} No Pt stated that he lives with a friend. It might be helpful if this friend comes in for teaching. Psychosocial Acceptance: He was able to look at stoma and did practice closing and opening valve. Special Notes: Patient has 1 spare one-piece pouch and one spare 2 1/4 pouch. I asked his nurse ekta to encourage patient to practice disconnecting from overnight bag if he goes for a walk today. Stoma: * Plan of Care - Derik-Jono Medel RN - 02/15/2020 1:40 AM EDT Problem: Skin Integrity Impairment, Risk/Actual (Adult) Goal: Identify Related Risk Factors and Signs and Symptoms Related risk factors and signs and symptoms are identified upon initiation of Human Response Clinical Practice Guideline (CPG) Outcome: Ongoing (Interventions Implemented as Appropriate) 02/14/20 1859 Skin Integrity Impairment, Risk/Actual Skin Integrity Impairment, Risk/Actual: Related Risk Factors surgery/procedure Signs and Symptoms (Skin Integrity Impairment) increased colony count Goal: Skin Integrity/Wound Healing Patient will demonstrate the desired outcomes by discharge/transition of care. Outcome: Ongoing (Interventions Implemented as Appropriate) 02/15/20 0134 Skin Integrity Impairment, Risk/Actual (Adult) Skin Integrity/Wound Healing making progress toward outcome Problem: Patient Care Overview Goal: Plan of Care Review Outcome: Ongoing (Interventions Implemented as Appropriate) 02/14/20 2220 02/15/20 0134 Plan of Care Review Progress -- progress toward functional goals as expected Coping/Psychosocial Plan Of Care Reviewed With patient -- OUTCOME EVALUATION NOTE: OUTCOME SUMMARY: Patient A&Ox4, VSS, resting between care. Pain up to 3/10; controlled with PCEA. Scant bloody drainage within CHG window of PCEA dressing. Denies nausea. Adequate UOP via urostomy. Multiple loose, incontinent BMs this shift. DARYN with copious amounts of serosanguinous output. 0645: AM HGB 6.5. MD notified. Recheck ordered; 6.3. MD notified; awaiting orders to transfuse. Will continue to monitor. PLAN MOVING FORWARD: Blood transfusion Pain management Wean PCEA Monitor DARYN output OOB and ambulation as tolerated Urostomy education Discharge planning INDIVIDUALIZED FALL PREVENTION INTERVENTIONS: High fall risk Patient-specific fall risk factors per assessment: [current deficits]: 2 or more active diagnoses, recent surgery, acute pain, opioid PCEA, PIV, port, urostomy, DARYN, continuous infusions, RLE pain, Assistance [level of assistance required for transfers and ambulation]: 1FWW stand at bedside Supervision [direct monitoring required during toileting and ADLs]: Hands on Surveillance [continuous indirect monitoring]: Bed/chair alarm, masimo, hourly rounding, room near unit station, NKE at bedside, yellow fall band on, environmental modifications (clutter-free environment, tubing secured, bed low, lighting adjusted, nonskid socks when OOB, bed wheels locked, call light with in reach, upper side rails x2, ID bands on) Patient-specific fall prevention interventions for sensory deficits provided, if applicable: [X] N/A CPG GOAL OUTCOME EVALUATION: Goal: Individualization & Mutuality Outcome: Ongoing (Interventions Implemented as Appropriate) 02/14/20 0807 Mutuality/Individual Preferences What Anxieties, Fears or Concerns Do You Have About Your Health or Care? no What Questions Do You Have About Your Health or Care? no What Information Would Help Us Give You More Personalized Care? Call me Vinny or Wally it doesn't matter Goal: Fall Prevention-Safe Patient Handling Outcome: Ongoing (Interventions Implemented as Appropriate) 02/14/20 2220 Daily Care Interventions Self-Care Promotion independence encouraged;BADL personal objects within reach;BADL personal routines maintained Bearden Fall Risk History of Falling 0 Secondary Diagnosis 15 Ambulatory Aids 15 Intravenous Therapy/Heparin/Saline Lock 20 Gait/Transferring 10 Mental Status 0 Score 60 OTHER Bearden Fall Risk High Restraint Interventions Safety Promotion/Fall Prevention activity supervised;fall prevention program maintained;muscle strengthening facilitated;nonskid shoes/slippers when out of bed;safety round/check completed Positioning Body Position independent Activity Activity Type activity adjusted per tolerance Activity Assistance Provided assistance, 1 person Assistive Device Utilized front-wheel walker Goal: Infection Control Outcome: Ongoing (Interventions Implemented as Appropriate) 02/14/20 2220 Safety Interventions Isolation Precautions standard precautions maintained Infection Prevention barrier precautions utilized;environmental surveillance performed;rest/sleep promoted Coping Strategies Supportive Measures active listening utilized;decision-making supported;goal setting facilitated;problem solving facilitated;relaxation techniques promoted;self-care encouraged;self-responsibility promoted;verbalization of feelings encouraged;self-reflection promoted;positive reinforcement provided Goal: Discharge Needs Assessment Outcome: Ongoing (Interventions Implemented as Appropriate) 02/14/20 1407 02/14/20 1549 Discharge Needs Assessment Concerns To Be Addressed -- adjustment to diagnosis/illness concerns Readmission Within The Last 30 Days -- no previous admission in last 30 days Equipment Needed After Discharge colostomy/ostomy supplies -- Current Discharge Risk -- chronically ill Discharge Disposition -- still a patient Living Environment Transportation Available -- Medicaid transportation;family or friend will provide Activity/Self Care Review of Systems Equipment Currently Used at Home -- colostomy/ostomy supplies Goal: Interdisciplinary Rounds/Family Conf Outcome: Ongoing (Interventions Implemented as Appropriate) 02/14/20 1549 Interdisciplinary Rounds/Family Conf Participants patient;nursing;physician;ostomy/continence specialist Problem: Nausea/Vomiting (Adult) Goal: Identify Related Risk Factors and Signs and Symptoms Related risk factors and signs and symptoms are identified upon initiation of Human Response Clinical Practice Guideline (CPG) Outcome: Ongoing (Interventions Implemented as Appropriate) 02/14/20 1407 Nausea/Vomiting Nausea/Vomiting: Related Risk Factors medication effects;recent surgery with general anesthesia Nausea/Vomiting: Signs and Symptoms abdominal discomfort/pain;report of queasy sensation Goal: Symptom Relief Patient will demonstrate the desired outcomes by discharge/transition of care. Outcome: Ongoing (Interventions Implemented as Appropriate) 02/15/20 0134 Nausea/Vomiting (Adult) Symptom Relief making progress toward outcome * Consult Note - Laurence Rousseau MD - 02/14/2020 4:42 PM EDT Patient Name: Wally Aguilar Patient Age: 69 y.o. Birthdate: 1950 Admit date: 02/13/2020 Attending Physician: Nima Armstrong MD Vascular Surgery Inpatient Consultation Date of Consultation: 02/14/2020 Consult Service: Vascular Surgery Place of Service: ( ) Emergency Department ( x ) Inpatient Unit/ intraoperative ( ) Critical care Responsible Attending: Dr. John Hooper Reason for Consult: We are seeing Wally Aguilar at the request of Dr. Nima Armstrong MD in consultation for atrophic appearing right iliac artery. I have reviewed the available records, interviewed and examined the patient. History of Present Illness: Wally Aguilar is a 69 y.o. male with a PMH of asthma, hypertension, bilateral lower extremity claudication, hyperlipidemia and bladder cancer who presented yesterday for a radical cystoprostatectomywith ilial conduit with urology. Vascular surgery was consulted intraoperatively for a small appearing right external iliac artery. On exam, the patient notes that he has had right calf pain for the past few months which he states is worse with walking but improves with rest. He is limited in walking due to the pain and finds that he is only able to walk a short distance. He is motor and sensory intact. The patient states he has not had any vascular interventions in the past, however there is documentation in the medical records of an iliac endarterectomy (op note/further records not available). There is also documentation from [address] which incidentally was found to demonstrate severe calcification of the aorta inferior to the takeoff of the GUIDO which at that time was asymptomatic. The patient denies symptoms of rest pain and does not have any wounds on that foot. The patient has an extensive smoking history, and currently smokes two packs per day as he has for the past 50 years. He does not have diabetes. Review of Systems: A 10 point review of systems was conducted and is negative except as above. Past Medical History: Past Medical History: Diagnosis Date ??? Asthma ??? Cancer kidney ??? Chronic pain right calf paiins him since his hip surgery ??? COPD (chronic obstructive pulmonary disease) pt has asthma but states he does not have copd or emphysema ??? Delayed emergence from anesthesia ??? GERD (gastroesophageal reflux disease) ??? Hypertension ??? Intraoperative complication during his only surgery (hip from a fall off a doroteo[place] he woke up during the procedure ??? PAD (peripheral artery disease) ??? Peptic ulcer disease ??? Seizure last seizure was 20 years ago ~ suffered from epilepsy but does not seem to be an issue anymore ??? Status post chemotherapy just had 8 weeks pf treatments 3 weeks ago ??? Transfusion history does not know ??? Urolithiasis ??? Vertigo balance problems only from the left leg being longer than the right leg from his hip surgery Past Surgical History: Past Surgical History: Procedure Laterality Date ??? AORTO-ILIAC BYPASS GRAFT endarterectomy ??? CT GUIDED BIOPSY LYMPH NODE(CHEST/ABD/PELVIS) 01/31/2020 CT Guided Biopsy Lymph Node (Chest/Abd/Pelvis) 01/31/2020 [facility] RAD CAT SCAN ??? HIP FRACTURE SURGERY Right 1991 ??? INGUINAL HERNIA REPAIR Right ??? IR MEDIPORT PLACEMENT/EXCHANGE 11/27/2019 IR Mediport Placement 11/27/2019 Jason Lujan PA [facility] INTERVENTIONL RAD ??? PRO CYSTECTOMY, ILEAL CONDUIT/SIGMOID BLADDER N/A 02/13/2020 @CYSTECTOMY, COMPLETE, WITH ILEAL CONDUIT (WRVU 36.33) performed by Nima Armstrong MD at [facility] LYNETTE ??? PRO NEEDLE BIOPSY LIVER N/A 02/13/2020 LIVER BIOPSY performed by Nima Armstrong MD at [facility] MAIN OR ??? PRO REMOVE PELVIS LYMPH NODES Bilateral 02/13/2020 @LYMPHADENECTOMY, PELVIC, INCLUDING MULTIPLE NODES-FELA (WRVU 14.06) performed by Nima Armstrong MDat [facility] MAIN OR Social History: Social History Socioeconomic History ??? Marital status: Single Spouse name: None ??? Number of children: None ??? Years of education: None ??? Highest education level: None Occupational History ??? None Social Needs ??? Financial resource strain: None ??? Food insecurity Worry: None Inability: None ??? Transportation needs Medical: None Non-medical: None Tobacco Use ??? Smoking status: Current Every Day Smoker Packs/day: 2.00 Years: 50.00 Pack years: 100.00 ??? Smokeless tobacco: Never Used Substance and Sexual Activity ??? Alcohol use: Yes Alcohol/week: 14.0 standard drinks Types: 14 Standard drinks or equivalent per week Comment: 2 ??? Drug use: Not Currently ??? Sexual activity: Not Currently Lifestyle ??? Physical activity Days per week: None Minutes per session: None ??? Stress: None Relationships ??? Social connections Talks on phone: None Gets together: None Attends orthodoxy service: None Active member of club or organization: None Attends meetings of clubs or organizations: None Relationship status: None ??? Intimate partner violence Fear of current or ex partner: None Emotionally abused: None Physically abused: None Forced sexual activity: None Other Topics Concern ??? None Social History Narrative 100 pack year smoker and continues to smoke 1/2-1 ppd. Ongoing moderately heavy alcohol use 2 drinks a night. No drug use. He grew up in [facility] and finished 11th grade. 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 He is and has 3 children, 2 live in [place] and one daughter in the [employer] in [facility]; he has limited contact with them. His brother David age 66 [address] but has significant health challenges as well. He has a [employer] test case developer, Ketty Ricketts who is also his landlord and is instrumental in helping him manage his affairs. Family History No family history on file. Home Medications: No current facility-administered medications on file prior to encounter. Current Outpatient Medications on File Prior to Encounter Medication Sig Dispense Refill ??? albuterol 90 mcg/actuation HFA Aerosol Inhaler Inhale 2 puffs into the lungs every 4 hours as needed for Wheezing. Use with spacer ??? aspirin EC 81 mg Tablet, Delayed Release (E.C.) Take 81 mg by mouth daily. ??? atorvastatin (Lipitor) 20 mg Tablet Take 20 mg by mouth daily. ??? varenicline (CHANTIX) 0.5 mg (11)- 1 mg (42) Tablets, Dose Pack 0.5 mg by mouth daily for 3 days then 0.5mg by mouth twice a day for 4 days then 1mg twice a day. Start drug 1 week before quit day. 53 tablet 0 ??? atenoloL (Tenormin) 25 mg Tablet Take 25 mg by mouth daily. ??? traMADoL (Ultram) 50 mg Tablet Take 50 mg by mouth every 6 hours as needed for Pain. Allergies Allergies Allergen Reactions ??? Wellbutrin [Bupropion Hcl] Other (See Comments) Unknown on pt's chart from outside facility Physical Exam: Temp: [36.5 ??C (97.7 ??F)-37.1 ??C (98.8 ??F)] Heart Rate: [100-119] Resp: [14-26] BP: (96-120)/(54-81) SpO2: [90 %-100 %] Heart Rate from SpO2: [88 bpm-115 bpm] General: NAD, resting comfortably. HEENT: normocephalic, atraumatic CVS: Mild tachycardia Pulm: Breathing comfortably on room air Abd: soft, non tender, non distended. Ext: RLE: No edema. Skin warm and pale. No tissue loss. Doppler signal DP/PT, weakly palpable femoral and popliteal pulses LLE: No edema. Skin warm and pale. No tissue loss. Doppler signal DP/PT, palpable femoral and popliteal pulses Neuro: No focal deficits Labs: Last wbc, hgb, hct plt Recent Labs 02/14/20 0150 WBC 11.6* HGB 8.0* HCT 23.5* Last 3 Lytes Recent Labs 02/14/20 0150 02/13/20 1750 02/13/20 0705 NA 138 138 135 K 5.0 4.9 4.0 CL 106 106 99 CO2 22 20* 20* BUN 31* 32* 43* CREATININE 1.21 1.11 1.26 Last 3 Coags No results for input(s): PT, INR, PTT in the last 168 hours. Pertinent Radiographic/Diagnostic Results: Vascular Labs: ABIs 8//20: Findings: ?? Right ?Pressure (mm Hg) ?? KAMAR ??Waveform ? Common Femoral Artery ?Monophasic ?? Popliteal Artery ? Monophasic ?? Dorsalis Pedis (Ankle) Artery ?31 ?0.36 ??Monophasic ?? Posterior Tibial (Ankle) Artery ??26 ?0.30 ??Monophasic ? Left ? Pressure (mm Hg) ?? KAMAR ??Waveform ? Brachial Artery ?86 ? Common Femoral Artery ?[place]- Biphasic ?? Popliteal Artery ? [place]-Biphasic ?? Dorsalis Pedis (Ankle) Artery ?61 ?0.71 ??[place]- Biphasic ?? Posterior Tibial (Ankle) Artery ??73 ?0.85 ??[place]-Biphasic ? Interpretation: ?? RIGHT: Moderately severe lower extremity arterial occlusive disease. Findings are consistent with aortoiliac disease. ?? LEFT: Mild lower extremity arterial occlusive disease. Findings are consistent with aortoiliac disease. ?? Comment: The RIGHT brachial pressure was not obtained due to right arm IV's. Assessment: Wally Aguilar is a 69 y.o. male with a history of bladder cancer and an extensive smoking history who was noted to have an atrophic right iliac artery intraoperatively yesterday during his cystectomy procedure with urology. ABIs confirm that the patient has aortoiliac disease, R>L. The patient also appears to be symptomatic from this, as he describes symptoms of claudication. This has likely been going on for some time based on review of previous imaging. Recommendation: - No vascular intervention indicated at this time - Continue ASA, statin - Will plan to have patient follow up in vascular surgery clinic as an outpatient with a CTA of hisabdomen and pelvis with bilateral lower extremity runoff. At that time, will assess and discuss revascularization options with the patient Consult service will continue to follow patient. x Recommendations are above, please page if further consultation required. Laurence Rousseau MD Vascular Surgery Pager: [phone] 02/14/20 * Plan of Care - Chantale Tavares OT - 02/14/2020 3:55 PM EDT Occupational Therapy Note: Order received and chart reviewed. Pt JJ for vasculary study this PM, and unavailable for OT evaluation. OT to f/u as available/appropriate for therapy. Bing Tavares OT Inpatient Rehab Pager #[phone] * Initial Assessments - Dora Lind RN - 02/14/2020 3:28 PM EDT Office of Care Management Initial Assessment Dora Lind RN reviewed record and discussed patient with Care Team. Source of Information: IDDR, bedside nurse, chart review, interviewing patient Introduced self/reviewed role; services accepted. Reason for Hospitalization: Reason for Admission as Stated by Patient: I had surgery <principal problem not specified> 1 Day Post-Op from a cystoprostatectomy with ileal conduit for MIBC. Past Medical History: Diagnosis Date ??? Asthma ??? Cancer kidney ??? Chronic pain right calf paiins him since his hip surgery ??? COPD (chronic obstructive pulmonary disease) pt has asthma but states he does not have copd or emphysema ??? Delayed emergence from anesthesia ??? GERD (gastroesophageal reflux disease) ??? Hypertension ??? Intraoperative complication during his only surgery (hip from a fall off a doroteo) in 1990 [place] he woke up during the procedure ??? PAD (peripheral artery disease) ??? Peptic ulcer disease ??? Seizure last seizure was 20 years ago ~ suffered from epilepsy but does not seem to be an issue anymore ??? Status post chemotherapy just had 8 weeks pf treatments 3 weeks ago ??? Transfusion history does not know ??? Urolithiasis ??? Vertigo balance problems only from the left leg being longer than the right leg from his hip surgery Hospitalizations Within the Past 30 Days: no [facility] admits in last 30 days. Anticipated Length Of Stay (If known): Expected Length of Hospitalization: 5 days Vs TBD COVID test done: 02/10/2020 at 12:33 Current Decision-Making Capacity: Patient is A&Ox4 and able to make all medical decisions Advance Care Planning: Attempt Cardiopulmonary Resuscitation - Inpatient Not in [facility]. Report no close family nearby, closest relative is brother David Aguilar. [employer] F[employer] AUX[employer] SUPERVISOR consulted for advance directives. Current Coping/Education/Information Needs: Current coping questions and concerns have been addressed. Current Functional Ability: assist of staff, on MAIL PROCESSOR pump due to postoperative pain. Functional Status Prior to Admission: independent with ADLs, ambulates with a cane, does not drive,relies on RCT or friends for public transportation. Home Environment: lives Friend Ketty, apartment on second floor, flight of stairs to manage to goup. Report some support from people who live in apartment building. Ketty drives a car and has a vehicle. [address] [facility] [address] Social & Family Supports/Community Resources: kalpesh Hdez, neighbors. Extended Emergency Contact Information Primary Emergency Contact: Ketty Ricketts Mobile Relation: Friend Secondary Emergency Contact: DAVID AGUILAR Relation: Sibling Behavioral Health History: none reported Substance Use/Abuse:active one pack a day smoker, reports moderate daily ETOH use. Health/Prescription Coverage: Primary Insurance: MEDICARE Secondary Insurance: MEDICAID [place] Prescription Coverage: Yes Preferred Pharmacy: [id number] SEC OF [facility] & [address] [address] [address] - [place], [place] - [address] [facility] [address] [facility] [address] Other: none Primary Care Provider: Subhash Dowling MD [phone] Patient/Caregiver Goals of Treatment: return to previous level of function Potential Needs for Transition of Care: Rehab/SNF: TBD Home Health: amendable to VNA DME: owns a cane Transportation: car by friend Ketty Other: none Anticipated Barriers to Discharge/Special Considerations: none vs anticipated barriers to arise as hospitalization continues. Assessment: patient is 1 Day Post-Op from a cystoprostatectomy with ileal conduit for MIBC, discharge needs tbd by hospital course, will work with PT/OT once pain is under control, anticipate home with VNA services. This author reviewed a list of Home Health Agencies/DME vendors which serve their preferred geographic area. Affiliations were reviewed with them and they were educated about their right to choose where referrals are placed. Patient requests referral to [facility] [place] PHONE: [phone] FAX: [phone] Expected date of discharge: tbd Plan: A member of the Care Management team will continue to monitor progress, follow for continuityof care and assist with transition of care planning. Dora Lind, RN Nurse Machine Shop Repair Technician Pager [phone] * Plan of Care - Miller Alexis PT - 02/14/2020 2:47 PM EDT 02/14/20 1446 Rehab Evaluation Document Type contact Total Evaluation Minutes, Physical Therapy 0 Evaluation Not Performed patient unavailable for evaluation Evaluation Not Performed Comment Pt JJ for vascular study. PT evaluation to follow * Plan of Care - Leigha Kiser RN - 02/14/2020 2:11 PM EDT OUTCOME EVALUATION NOTE: OUTCOME SUMMARY: Vinny has been uncomfortable much of the day-grimacing/guarding with pain to Right side abdomen & RLE reported 2-3/10 per APS keep rate of PCEA same; intmt nausea given zofran/compazine with fair results; 2x loose mucoid stools-hygiene care provided-able to turn self in bed; urostomy UOP low LR bolus ordered; stood bedside to promote mobility-able to stand but not walk I can't put any weight on my R leg; demonstrated how the on/off clip works w/ urostomy bag and educated onneed to practice removing for ambulation in the next few days PLAN MOVING FORWARD: Pain & Nausea management; Activity as tolerated; Self care/education of urostomy INDIVIDUALIZED FALL PREVENTION INTERVENTIONS: High fall risk Patient-specific fall risk factors per assessment: [current deficits]: PCEA; RLE weakness; Tubing Assistance [level of assistance required for transfers and ambulation]: 1-2 assist FWW Supervision [direct monitoring required during toileting and ADLs]: Hands on Surveillance [continuous indirect monitoring]: Nurse knowledge exchange at bedside; purposeful rounding; call vora in reach; environmental modifications; comfort and safety measures maintained Patient-specific fall prevention interventions for sensory deficits provided, if applicable: [X] No CPG GOAL OUTCOME EVALUATION: Goal: Individualization & Mutuality Outcome: Ongoing (Interventions Implemented as Appropriate) 02/14/20 0807 Mutuality/Individual Preferences What Anxieties, Fears or Concerns Do You Have About Your Health or Care? no What Questions Do You Have About Your Health or Care? no What Information Would Help Us Give You More Personalized Care? Call me Vinny or Wally it doesn't matter Goal: Fall Prevention-Safe Patient Handling Outcome: Ongoing (Interventions Implemented as Appropriate) 02/14/2072302/14/20 1253 Daily Care Interventions Self-Care Promotion independence encouraged;BADL personal objects within reach -- Bearden Fall Risk History of Falling 0 -- Secondary Diagnosis 15 -- Ambulatory Aids 15 -- Intravenous Therapy/Heparin/Saline Lock 20 -- Gait/Transferring 10 -- Mental Status 0 -- Score 60 -- OTHER Bearden Fall Risk High -- Restraint Interventions Safety Promotion/Fall Prevention activity supervised;fall prevention program maintained;muscle strengthening facilitated;nonskid shoes/slippers when out of bed;safety round/check completed -- Positioning Body Position supine, head elevated -- Activity Activity Type -- activity adjusted per tolerance Activity Assistance Provided -- assistance, 1 person Assistive Device Utilized -- front-wheel walker Goal: Infection Control Outcome: Ongoing (Interventions Implemented as Appropriate) 02/14/20723 Safety Interventions Isolation Precautions standard precautions maintained Infection Prevention barrier precautions utilized;cohorting utilized;environmental surveillance performed;rest/sleep promoted Coping Strategies Supportive Measures active listening utilized;goal setting facilitated;self-care encouraged Goal: Discharge Needs Assessment Outcome: Ongoing (Interventions Implemented as Appropriate) 02/14/20 1407 Discharge Needs Assessment Concerns To Be Addressed adjustment to diagnosis/illness concerns Readmission Within The Last 30 Days no previous admission in last 30 days Equipment Needed After Discharge colostomy/ostomy supplies Discharge Disposition still a patient Living Environment Transportation Available Medicaid transportation;family or friend will provide Goal: Interdisciplinary Rounds/Family Conf Outcome: Ongoing (Interventions Implemented as Appropriate) 02/14/20 1407 Interdisciplinary Rounds/Family Conf Participants patient;physician;nursing;ostomy/continence specialist;social work/services Problem: Nausea/Vomiting (Adult) Goal: Identify Related Risk Factors and Signs and Symptoms Related risk factors and signs and symptoms are identified upon initiation of Human Response Clinical Practice Guideline (CPG) Outcome: Ongoing (Interventions Implemented as Appropriate) 02/14/20 1407 Nausea/Vomiting Nausea/Vomiting: Related Risk Factors medication effects;recent surgery with general anesthesia Nausea/Vomiting: Signs and Symptoms abdominal discomfort/pain;report of queasy sensation Goal: Symptom Relief Patient will demonstrate the desired outcomes by discharge/transition of care. Outcome: Unable to achieve outcome by discharge 02/14/20 1407 Nausea/Vomiting (Adult) Symptom Relief making progress toward outcome * Consult Note - Shelby Gilliland RN - 02/14/2020 10:04 AM EDT atomic process engineer consult note - pt wearing a nicely intact [place] 1 3/4 pouch hooked up to a bedside drainage bag. Pt was not up for any education today; no, please don't touch that bag too much. Did talk with pt's staff climate scientist, Ekta, re: educating pt throughout the day, which she is planning to dotoday. Will plan to change the pouch with Vinny tomorrow. Dropped off ostomy supply bag & folder. Pt has 1 spare Naveen 2 1/4 wafer & pouch and one spare Naveen 1-piece pouch in his supply bag. ZACKARY Nichols, RN, CWOCN 02/14/2020 Enterostomal Therapy Team Pager #[phone] * Consult Note - Shelby Gilliland RN - 02/14/2020 7:22 AM EDT How to obtain Ostomy Supplies: New Ostomy patients will be discharged home with 5 pouch changes. Medicare patients who are to be discharged home with Visiting Nurses(VNA) will have their Ostomy supplies ordered by VNA until they discontinue care. Once you are discharged from VNA/Homecare Nursingproceed with calling Insurance company to get preferred vendor (below) Non Medicare patients please call your Insurance company and request a list of Preferred Ostomy Vendors/Suppliers that they allow. You may then call one of those vendors (several listed below) and proceed to set up an account with them.* When calling the vendor be prepared to answer the followingquestions: -Insurance name and Account # -Date of Surgery -Type of Ostomy (Colostomy, Ileostomy or Urostomy) -order #'s for ALL supplies you are using -Name of Surgeon and telephone number [employer] ([email or web address]) Dormitory Supervisor: Zaida Pedroza [phone] [employer] ([email or web address]) [employer] ([email or web address]) [employer] Former[facility] named [facility] ([email or web address] [employer] ([email or web address]) Cynthia Postmaster ([email or web address]) [employer] ([email or web address].[facility]) *If you wear Naveen products and are having a difficult time finding a vendor that will accept your Insurance you may call [employer] at . They have a team of 30 Insurance experts whowill help you find a vendor that can bill your Insurance Company. Remember, if they need to return your call expect a call from Rowena, in case you are screening your calls. Insurance companies require that the prescription or order for ostomy supplies be renewed annually. You need to get this prescription renewed by your Primary Care Provider. You will need to give your PCP the name and order #'s of all supplies you use. Some vendors will fax the order to your PCP. Patient with Urostomy When to call your Ostomy Nurse/M.D. Change in Color: The stoma should always be pink or red in color. Should the color change to white,blue or black, medical notification is required. Bleeding: It is common and normal for the stoma to bleed minimally during gentle washing. Blood found in the pouch requires medical notification. Symptoms of Urinary Tract Infections: Fever, chills, blood in urine, cloudy or foul smelling urine,flank pain. Call your Ostomy Nurse or Doctor if these symptoms occur. Mucous in urine is normal. Prolapse: The term implies that the stoma now extends further from the skin surface than it did at discharge from the hospital. An increase of one inch or more requires medical notification. Pain mayor may not accompany a prolapse. Retraction: This term implies that the bowel has slightly fallen back into the abdominal cavity. Itmay become flush with or recessed below the skin. A good seal with the pouch is difficult. Herniation: This term implies that the muscular area in which the stoma is sewn has lost its tone and the entire area, including skin and surrounding stoma now protrudes beyond the normal skin surface. Irritated Skin: Irritated skin can quickly worsen to a difficult to manage situation. Treat irritated skin as you have been taught. If it has not cleared up after one week call your ostomy nurse. Leaky Pouch: If you are having to change the pouch every other day or more frequently due to leakage it is reasonable for you to give your Ostomy Nurse a call. * Plan of Care - Donte Bearden RN - 02/14/2020 4:18 AM EDT Problem: Patient Care Overview Goal: Plan of Care Review Outcome: Ongoing (Interventions Implemented as Appropriate) 02/13/20 2145 02/14/20 0408 Plan of Care Review Progress -- progress toward functional goals as expected Coping/Psychosocial Plan Of Care Reviewed With patient -- OUTCOME EVALUATION NOTE: OUTCOME SUMMARY: Received report from KEYA Van in PACU. Arrived to room 211A at approximately 2130. Patient lethargic but oriented x4. Patient intermittently tachycardic in low 100's, otherwise VSS. IS teaching completed. SCD's on. Oriented to use of call vora, bed.chair alarm, and 2 [place] falls prevention program. Upon arrival to the floor calcium was 6.9, MD paged and 2 runs of Calcium gluconate given, calcium rechecked with AM labs 7.3. Abdominal pain well controlled with PCEA and scheduled medications. Patient complaining of RLE pain, foot warm and DP 1+, paged to bedside to assess. Urostomy with lowurine output this shift, MD aware. DARYN drain with large amount of serosanguineous output, dressing changed x1. Midline incision CDI. Patient rested well between care. PLAN MOVING FORWARD: Monitor/manage pain, I&O's, encourage ambulation, Monitor labs, monitor vitals, continue with current plan INDIVIDUALIZED FALL PREVENTION INTERVENTIONS: High Fall Risk Patient-specific fall risk factors per assessment: [current deficits]: Recent surgery, pain, epidural with PCEA, first 24 hours on the floor, tubes/drains, generalized weakness. Assistance [level of assistance required for transfers and ambulation]: Not yet OOB Supervision [direct monitoring required during toileting and ADLs]: Not yet OOB Surveillance [continuous indirect monitoring]: Yes, Bed/Chair alarm, environmental modification (floor free of clutter, tubing secured), bed in low position, lighting adjusted for task/safety, nonskid slippers when out of bed, wheels locked, call light in reach, upper side-rails raised X2, ID bandson. Patient-specific fall prevention interventions for sensory deficits provided, if applicable: [X] N/A CPG GOAL OUTCOME EVALUATION: Goal: Fall Prevention-Safe Patient Handling Outcome: Ongoing (Interventions Implemented as Appropriate) 02/13/20214402/14/20407 Daily Care Interventions Self-Care Promotion -- independence encouraged [place] Fall Risk History of Falling 0 -- Secondary Diagnosis 15 -- Ambulatory Aids 15 -- Intravenous Therapy/Heparin/Saline Lock 20 -- Gait/Transferring 10 -- Mental Status 0 -- Score 60 -- OTHER [place] Fall Risk High -- Restraint Interventions Safety Promotion/Fall Prevention activity supervised;fall prevention program maintained;nonskid shoes/slippers when out of bed -- Positioning Body Position independent -- Activity Activity Type activity adjusted per tolerance -- Goal: Infection Control Outcome: Ongoing (Interventions Implemented as Appropriate) 02/13/202144 Safety Interventions Isolation Precautions standard precautions maintained Infection Prevention rest/sleep promoted;environmental surveillance performed Coping Strategies Supportive Measures active listening utilized;decision-making supported;goal setting facilitated;positive reinforcement provided;problem solving facilitated;relaxation techniques promoted;self-care encouraged;self-reflection promoted;verbalization of feelings encouraged;self-responsibility promoted Goal: Discharge Needs Assessment Outcome: Ongoing (Interventions Implemented as Appropriate) 02/14/20407 Discharge Needs Assessment Discharge Disposition still a patient Goal: Interdisciplinary Rounds/Family Conf Outcome: Ongoing (Interventions Implemented as Appropriate) 02/14/20407 Interdisciplinary Rounds/Family Conf Participants patient;nursing * Brief Op Note - Sarbjit Palencia MD - 02/13/2020 5:49 PM EDT Brief Operative Note Patient Name: Wally Aguilar : [id number] MR#: [id number] Case Date: 02/13/2020 Surgeon: Surgeon(s) and Role: * Nima Armstrong MD - Primary * Enrrique Patten MD - Resident * Sarbjit Palencia MD - Resident * Ana Dias MD - Resident Preoperative diagnosis: Bladder Cancer Postoperative diagnosis: Bladder Cancer Procedure(s) (LRB): @CYSTECTOMY, COMPLETE, WITH ILEAL CONDUIT (WRVU 36.33) (N/A) @LYMPHADENECTOMY, PELVIC, INCLUDING MULTIPLE NODES-FELA (WRVU 14.06) (Bilateral) LIVER BIOPSY (N/A) Anesthesia: General Findings: - Uncomplicated radical cystoprostatectomy - Ileal conduit urinary diversion - Small left lobe liver lesion biopsied, negative for malignancy - No evidence of metastatic or extravesical disease - Bilateral pelvic node dissection to aortic bifurcation, including pre sacral nodes (which were adherent) - Moderate lysis of adhesions - RIGHT external iliac artery appeared atrophic, intraoperative vascular surgery consult; no indication for intervention at this time Complications: None Estimated Blood Loss: 900 mL Specimens removed during surgery: Order Name Source Comment Collection Info Order Time SPECIMEN TO PATHOLOGY Bladder Cancer LIVER MASS excision YES, Please perform frozen section No 02/13/2020 10:31 AM Number of tissue samples (in container) 1 Time specimen removed from patient: 10:31 AM Biospecimen to store? No SPECIMEN TO PATHOLOGY Bladder Cancer LEFT DISTAL URETER BLUE OPPOSITE MARGIN excision YES, Please perform frozen section No 02/13/2020 11:21 AM Number of tissue samples (in container) 1 Time specimen removed from patient: 11:20 AM Biospecimen to store? No SPECIMEN TO PATHOLOGY Bladder Cancer RIGHT DISTAL URETER BLUE OPPOSITE MARGIN excision YES, Please perform frozen section No 02/13/2020 11:56 AM Number of tissue samples (in container) 1 Time specimen removed from patient: 11:55 AM Biospecimen to store? No SPECIMEN TO PATHOLOGY OR# 28 ext [id number] Bladder Cancer Bladder and Prostate excision No 02/13/2020 12:57 PM Time specimen removed from patient: 12:55 PM Number of tissue samples (in container) 1 Biospecimen to store? No SPECIMEN TO PATHOLOGY OR#28 ext [id number] Bladder Cancer Left Common and External Lymph Nodes excision No 02/13/2020 1:15 PM Time specimen removed from patient: 1:14 PM Number of tissue samples (in container) 1 Biospecimen to store? No SPECIMEN TO PATHOLOGY OR#28 Ext [id number] Bladder Cancer Left Internal Iliac Lymph Nodes excision No 02/13/2020 1:20 PM Time specimen removed from patient: 1:20 PM Number of tissue samples (in container) 1 Biospecimen to store? No SPECIMEN TO PATHOLOGY BLADDER CANCER ADDITIONAL LEFT INTERNAL ILIAC AND OBTURATOR LYMPH NODES excision No 02/13/2020 1:29 PM Time specimen removed from patient: 1:29 PM Number of tissue samples (in container) 1 Biospecimen to store? No SPECIMEN TO PATHOLOGY BLADDER CANCER PRE-SACRAL LYMPH NODES excision No 02/13/2020 1:35 PM Time specimen removed from patient: 1:34 PM Number of tissue samples (in container) 1 Biospecimen to store? No SPECIMEN TO PATHOLOGY BLADDER CANCER RIGHT COMMON AND EXTERNAL LYMPH NODES excision No 02/13/2020 2:12 PM Time specimen removed from patient: 2:11 PM Number of tissue samples (in container) 1 Biospecimen to store? No SPECIMEN TO PATHOLOGY BLADDER CANCER RIGHT OBTURATOR LYMPH NODES excision No 02/13/2020 2:26 PM Time specimen removed from patient: 2:26 PM Number of tissue samples (in container) 1 Biospecimen to store? No SPECIMEN TO PATHOLOGY BLADDER CANCER ADDITIONAL LEFT URETER excision No 02/13/2020 3:22 PM Time specimen removed from patient: 3:21 PM Number of tissue samples (in container) 1 Biospecimen to store? No SPECIMEN TO PATHOLOGY BLADDER CANCER ADDITIONAL RIGHT URETER excision No 02/13/2020 3:54 PM Time specimen removed from patient: 3:53 PM Number of tissue samples (in container) 1 Biospecimen to store? No Fluids: Intraprocedure Crystalloid Total Intake Lactated Ringers 3000.00 mL lactated ringers infusion 3800.00 mL Total Intake 6800 mL Output Urine Output 110 mL Blood Loss 900 mL Other Output 700 mL Total Output 1710 mL Net Net Volume 5090 mL PRBCs: none (See Anesthesia Record/Report for Other Blood Products) Urine Output: 110 mL Drains: - RUQ urostomy with bilateral ureteral stents - LLQ 19Fr phyllis drain in pelvis Disposition: awakened from anesthesia, extubated and taken to the recovery room in a stable condition, having suffered no apparent untoward event. Condition: doing well without problems (Please see the Surgical Encounter Summary for any Implant and Specimen details pertinent to this patient.) Infection Bundle used? Yes Cystectomy Infection Bundle: Case Acuity: Elective case Chlorhexidine shower night before and am of surgery: Yes Mechanical bowel prep: Yes Oral antibiotic prep: Yes, Flagyl + Neomycin Chlorhexadine-alcohol skin prep: Yes Pre op IV antibiotics: Other: Ceftriaxone and Flagyl Change gloves and new suction and cautery at closure: Yes Sterile closure tray used: Yes Fbjcanwvm-tvxfgnbnn-oqoudzmqaa abdominal cavity wash: Yes Vnbraxntw-rdkhbwrpq-tziwxbunjk wound wash: Yes * Op Note - Sarbjit Palencia MD - 02/13/2020 2:21 PM EDT [facility] [place] Patient Name: Wally Aguilar : [id number] MR#: [id number] Case Date: 02/13/2020 Surgeon: Surgeon(s) and Role: * Nima Armstrong MD - Primary * Enrrique Patten MD - Resident * Sarbjit Palencia MD - Resident * Ana Dias MD - Resident Preoperative diagnosis: Bladder Cancer Postoperative diagnosis: Bladder Cancer Procedure(s) (LRB): @CYSTECTOMY, COMPLETE, WITH ILEAL CONDUIT (WRVU 36.33) (N/A) @LYMPHADENECTOMY, PELVIC, INCLUDING MULTIPLE NODES-FELA (WRVU 14.06) (Bilateral) LIVER BIOPSY (N/A) Findings: - Uncomplicated radical cystoprostatectomy - Ileal conduit urinary diversion - Small left lobe liver lesion biopsied, negative for malignancy - No evidence of metastatic or extravesical disease - Bilateral pelvic node dissection to aortic bifurcation, including pre sacral nodes (which were adherent) - Moderate lysis of adhesions - RIGHT external iliac artery appeared atrophic, intraoperative vascular surgery consult; no indication for intervention at this time Anesthesia: General Estimated Blood Loss: 900 mL Specimens removed during surgery: Order Name Source Comment Collection Info Order Time SPECIMEN TO PATHOLOGY Bladder Cancer LIVER MASS excision YES, Please perform frozen section No 02/13/2020 10:31 AM Number of tissue samples (in container) 1 Time specimen removed from patient: 10:31 AM Biospecimen to store? No SPECIMEN TO PATHOLOGY Bladder Cancer LEFT DISTAL URETER BLUE OPPOSITE MARGIN excision YES, Please perform frozen section No 02/13/2020 11:21 AM Number of tissue samples (in container) 1 Time specimen removed from patient: 11:20 AM Biospecimen to store? No SPECIMEN TO PATHOLOGY Bladder Cancer RIGHT DISTAL URETER BLUE OPPOSITE MARGIN excision YES, Please perform frozen section No 02/13/2020 11:56 AM Number of tissue samples (in container) 1 Time specimen removed from patient: 11:55 AM Biospecimen to store? No SPECIMEN TO PATHOLOGY OR# 28 ext [id number] Bladder Cancer Bladder and Prostate excision No 02/13/2020 12:57 PM Time specimen removed from patient: 12:55 PM Number of tissue samples (in container) 1 Biospecimen to store? No SPECIMEN TO PATHOLOGY OR#28 ext [id number] Bladder Cancer Left Common and External Lymph Nodes excision No 02/13/2020 1:15 PM Time specimen removed from patient: 1:14 PM Number of tissue samples (in container) 1 Biospecimen to store? No SPECIMEN TO PATHOLOGY OR#28 Ext [id number] Bladder Cancer Left Internal Iliac Lymph Nodes excision No 02/13/2020 1:20 PM Time specimen removed from patient: 1:20 PM Number of tissue samples (in container) 1 Biospecimen to store? No SPECIMEN TO PATHOLOGY BLADDER CANCER ADDITIONAL LEFT INTERNAL ILIAC AND OBTURATOR LYMPH NODES excision No 02/13/2020 1:29 PM Time specimen removed from patient: 1:29 PM Number of tissue samples (in container) 1 Biospecimen to store? No SPECIMEN TO PATHOLOGY BLADDER CANCER PRE-SACRAL LYMPH NODES excision No 02/13/2020 1:35 PM Time specimen removed from patient: 1:34 PM Number of tissue samples (in container) 1 Biospecimen to store? No SPECIMEN TO PATHOLOGY BLADDER CANCER RIGHT COMMON AND EXTERNAL LYMPH NODES excision No 02/13/2020 2:12 PM Time specimen removed from patient: 2:11 PM Number of tissue samples (in container) 1 Biospecimen to store? No SPECIMEN TO PATHOLOGY BLADDER CANCER RIGHT OBTURATOR LYMPH NODES excision No 02/13/2020 2:26 PM Time specimen removed from patient: 2:26 PM Number of tissue samples (in container) 1 Biospecimen to store? No SPECIMEN TO PATHOLOGY BLADDER CANCER ADDITIONAL LEFT URETER excision No 02/13/2020 3:22 PM Time specimen removed from patient: 3:21 PM Number of tissue samples (in container) 1 Biospecimen to store? No SPECIMEN TO PATHOLOGY BLADDER CANCER ADDITIONAL RIGHT URETER excision No 02/13/2020 3:54 PM Time specimen removed from patient: 3:53 PM Number of tissue samples (in container) 1 Biospecimen to store? No Drains: - Uncomplicated radical cystoprostatectomy - Ileal conduit urinary diversion - Small left lobe liver lesion biopsied, negative for malignancy - No evidence of metastatic or extravesical disease - Bilateral pelvic node dissection to aortic bifurcation, including pre sacral nodes (which were adherent) - Moderate lysis of adhesions - RIGHT external iliac artery appeared atrophic, intraoperative vascular surgery consult; no indication for intervention at this time Surgical Closure: Primary Closure - skin incision is completely closed without any wires, shama, drains or other devices Disposition: awakened from anesthesia, extubated and taken to the recovery room in a stable condition, having suffered no apparent untoward event. Condition: doing well without problems (Please see the Surgical Encounter Summary for any Implant and Specimen details pertinent to this patient.) HPI/Surgical Indications: Wally Aguilar is a 69 y.o. male with a history of MIBC s/p ddMVAC who presents today for radical cystectomy/ileal conduit with Dr. Armstrong. Procedure Description: The patient was identified in the pre-operative holding area. Consent was verified. The patient was taken to the operating room and placed supine on the operating table. General anesthesia was induced. The patient was then prepped and draped in the usual sterile fashion. A timeout was performed involving all members of the OR team confirming the patient's identity and planned procedure. Preoperative antibiotics were administered. A urethral catheter was inserted in the bladder. A lower midline abdominal incision was made from the symphysis pubis to a few cm above the umbilicus. The anterior rectus fascia and the transversalis fascia were divided above the umbilicus given his prior abdominal procedure (unknown by the patient). There were moderate omental adhesions that were lysed and the incision was fully opened to the level of the peritoneal cavity. The urachal remnantwas divided. Additional intraabdominal adhesions were encountered; these were divided. Given concern for advanced disease, the liver was carefully inspected. Two 3mm lesions were identified. One on the right lobe was more accessible. Using 0 Chromic, sutures were placed on either side of the lesionand it was cut out in a wedge resection and sent for frozen analysis which returned as negative. The extraction site was oversewn with a 0 Chromic for hemostasis. We then proceeded with the operation. The peritoneum lateral to the bladder was incised, and the vasa deferentia were ligated and divided. The right and left colon was mobilized by incising the whiteline of Toldt to allow for exposure of the ureters and to set up the operative field. The space of Retzius was developed. A Bookwalter retractor was placed, and the small bowel was packed into the upper abdomen. On the right side, the peritoneum was incised parallel to the common iliac vessels, andthe ureter was identified crossing the vessels. Care was taken to minimize grasping the ureteral tissue directly. The ureter was dissected to the level of the bladder, where it was ligated and divided. A 4-0 silk ureteral tacking suture was placed to help with manipulation and to avoid ureteral trauma. A similar dissection was performed on the contralateral side. The posterior peritoneum was divided with electrocautery under direct visualization at the level ofthe ampulla of the vasa and seminal vesicles. A plane was established between the anterior rectal wall and posterior bladder and prostate. Blunt finger dissection was performed by sweeping the rectumfrom the bladder. The lamellae of Denonvilliers fascia was kept anteriorly to expose the seminal vesicles. The rectum was swept down and away from the prostate and seminal vesicles in the plane posterior to Denonvilliers fascia. The pedicles was dissected lateral to the seminal vesicles and taken with a series of ties. The endopelvic fascia was sharply incised bilaterally. The prostate was dissect ed off of the pubis. The dorsal vein complex was controlled by passage of a Debra clamp and suture ligation for hemostasis. The urethra was identified and divided sharply, removing the lyles catheter first. Finally, the rectourethralis muscle was sharply divided. The bladder and prostate were rem roshni and sent to Pathology as a single specimen. After thorough irrigation, the pelvis was inspected carefully and packed with moist laparotomy pads. Bilateral pelvic lymphadenectomy was performed in the usual fashion. The internal iliac packet wastaken from caudal to cranial. The external iliac vein was noted and the packet underneath it was taken, skeletonizing the obturator nerve and vessels with the lateral border being the pelvic sidewall. Hemoclips were used throughout the procedure for hemostasis. The same procedure was performed on the contralateral side. No gross evidence of lymph node metastasis was noted. Presacral nodes were also taken. These were noted to be quite adherent but not Pathologically enlarged. There appeared to be prior suture material along the aorta, raising the possibility that his prior midline incision wasfrom a AAA or some other vascular procedure. Of note, the RIGHT external iliac artery appeared atrophic and small in caliber. An intraoperative consult was obtained with Vascular surgery who agreed with our assessment and concluded no intraoperative intervention was required at this time. With blunt finger dissection, a generous opening from one retroperitoneal opening to the other was established under the sigmoid colon. The left ureter was brought to the right side. Care was taken to avoid twisting or kinking of the ureter. Ileal conduit urinary diversion was then performed in a standard open manner. Approximately 18 cm of terminal ileum were isolated about 20 cm from the ileocecal valve. The bowel was divided with a TRIP stapler to isolate the conduit, then continuity of remaining bowel was reestablished with the same stapler. The mesenteric defect was closed with interrupted 3-0 silk sutures. ?? Ureteroenteric anastomoses were created from spatulation of the ureter at the 12 o'clock position and reimplantation using interrupted 4-0 Vicryl sutures. A 7 [place] single J stent was inserted, one in each ureter, then secured to the conduit using a Chromic suture. A blue stent was used in the LEFT ureter, and a red stent in the RIGHT ureter. Anastomoses were tension-free and appeared water-tight. The distal stapled end of the conduit to be used to create the stoma was cut off in preparation forstoma formation. The fascia was opened using electrocautery at the stoma site. The conduit was pulled through the incision and secured using maturing 3-0 Vicryl sutures. Upon completion, the stoma appeared pink and healthy. The abdomen was irrigated using 2 L warm saline. Surgiflo and Surgicel were placed in the deep pelvis and pelvic side maurer. A 19 Fr Phyllis drain was placed in the pelvis and secured using 2-0 Prolenesuture at the LEFT lower quadrant skin. ?? The sterile closing tray was brought onto the field and the surgeons took a 10 minute break as partof the closing procedure. Surgeons changed gloves. Irrigation solution was used in the abdomen. Thefascia was closed using two #1 Prolene sutures in a running fashion. The same antibiotic solution was used to wash to wound and skin. The midline incision was closed with irvin. The ureteral stentswere brought through a stoma appliance, which was then secured to the skin at the stoma site. The drain was placed on bulb suction. The patient tolerated the procedure well and was awakened from anesthesia with no adverse events. Asponge and instrument count was performed and the counts were correct. The patient was taken to therecovery area in stable condition. Dr. Armstrong, the attending surgeon, was present for the entire procedure. Infection Bundle used? Yes Cystectomy Infection Bundle: ?? Case Acuity: Elective case Chlorhexidine shower night before and am of surgery: Yes Mechanical bowel prep: Yes Oral antibiotic prep: Yes, Flagyl + Neomycin Chlorhexadine-alcohol skin prep: Yes Pre op IV antibiotics: Other: Ceftriaxone and Flagyl Change gloves and new suction and cautery at closure: Yes Sterile closure tray used: Yes Etufucjfc-bknhhukrm-qilwlqwntw abdominal cavity wash: Yes Jwlexbsif-akggooqfo-pqgfrspdlz wound wash: Yes Associated attestation - Nima Armstrong MD - 02/19/2020 9:32 AM EDT Attestation: Case Date: 02/13/2020 Attending Addendum I have seen the patient and reviewed the history and examination. I agree with the details as written. The assessment and plan were formulated in discussion with me and I agree with them as documented. I would add the following: - Uncomplicated radical cystoprostatectomy - Ileal conduit urinary diversion - Small left lobe liver lesion biopsied, negative for malignancy - No evidence of metastatic or extravesical disease - Bilateral pelvic node dissection to aortic bifurcation, including pre sacral nodes (which were adherent) - Moderate lysis of adhesions - RIGHT external iliac artery appeared atrophic, intraoperative vascular surgery consult; no indication for intervention at this time Nima ARMSTRONG MD 02/19/2020 documented in this encounter Plan of Treatment Upcoming Encounters Date Type Department Care Team (Late st Contact Info) Description 08/15/2024 11:30 AM EST Office Visit Hematology/Oncology at [address] [phone] Chanelle Kim, EMERGENCY PREPAREDNESS COORDINATOR [facility] [place] [address] Bee Curry APRN [facility] [place] [address] documented as of this encounter Procedures Procedure Name Priority Date/Time Associated Diagnosis Comments SURGICAL PATHOLOGY REPORT Routine 03/06/2020 8:26 AM EDT SPECIMEN TO PATHOLOGY Routine 03/06/2020 8:26 AM EDT Upper Gi Endoscopy, Biopsy ([id number]) 03/06/2020 8:12 AM EDT EGD UPPER GI ENDOSCOPY Routine 03/06/2020 8: 07 AM EDT HC PHOSPHORUS, SERUM Routine 03/06/2020 1:45 AM EDT HC MAGNESIUM, SERUM Routine 03/06/2020 1 :45 AM EDT HC VENIPUNCTURE Routine 03/06/2020 1:45 AM EDT COVID-19 PCR Routine 03/05/2020 11:03 AM EDT HC ESR-SEDIMENTATION RATE, BLOOD Routine 02/29/2020 2:32 PM EDT HC HSCRP Routine 02/29/2020 2:32 PM EDT HC VENIPUNCTURE Routine 02/29/2020 1:57 AM EDT IR G-TUBE PLACEMENT Routine 02/28/2020 1 1:19 AM EDT HC VITAMIN D TOTAL-25 HYDROXY Routine 02/28/2020 9:15 AM EDT HC VENIPUNCTURE Routine 02/28/2020 9:15 AM EDT HC VITAMIN B12 SERUM Routine 02/28/2020 9:15 AM EDT HC PHOSPHORUS, SERUM Routine 02/28/2020 2:07 AM EDT HC MAGNESIUM, SERUM Routine 02/28/2020 2 :07 AM EDT HC VENIPUNCTURE Routine 02/28/2020 2:07 AM EDT HC VENIPUNCTURE Routine 02/25/2020 2:02 AM EDT HEMOGRAM Routine 02/24/2020 2:05 AM EDT DIFFERENTIAL, AUTOMATED Routine 02/24/20 20 2:05 AM EDT HC CBC,PLT & AUTO DIFF Routine 0 2:05 AM EDT HC PHOSPHORUS, SERUM Routine 02/24/2020 2:05 AM EDT HC VENIPUNCTURE Routine 02/24/2020 2:05 AM EDT BASIC METABOLIC PANEL Routine 02/24/2020 2:05 AM EDT HC PHOSPHORUS, SERUM Routine 02/23/2020 1:55 AM EDT HC VENIPUNCTURE Routine 02/23/2020 1:55 AM EDT BASIC METABOLIC PANEL Routine 02/23/2020 1:55 AM EDT SCAN, PERIPHERAL BLOOD Timed 0 2:30 AM EDT HEMOGRAM Timed 02/22/2020 2:30 AM EDT DIFFERENTIAL, AUTOMATED Timed 02/22/20 20 2:30 AM EDT HC CBC,PLT & AUTO DIFF Timed 0 2:30 AM EDT BASIC METABOLIC PANEL Timed 02/22/2020 2:30 AM EDT HC VENIPUNCTURE Routine 02/21/2020 8:36 PM EDT HC PHOSPHORUS, SERUM Routine 02/21/2020 1:55 AM EDT HC MAGNESIUM, SERUM Routine 02/21/2020 1 :55 AM EDT HC VENIPUNCTURE Routine 02/21/2020 1:55 AM EDT HEMOGRAM Timed 02/20/2020 2:04 AM EDT DIFFERENTIAL, AUTOMATED Timed 02/20/20 20 2:04 AM EDT HC CBC,PLT & AUTO DIFF Timed 0 2:04 AM EDT HC PHOSPHORUS, SERUM Routine 02/20/2020 2:04 AM EDT HC VENIPUNCTURE Routine 02/20/2020 2:04 AM EDT HEPATIC FUNCTION PANEL Routine 0 2:04 AM EDT BASIC METABOLIC PANEL Timed 02/20/2020 2:04 AM EDT HC STOOL CULTURE Routine 02/19/2020 3:14 PM EDT CAMPYLOBACTER ANTIGEN Routine 02/19/2020 3:14 PM EDT SHIGA TOXIN ASSAY Routine 02/19/2020 3:1 4 PM EDT STOOL CULTURE Routine 02/19/2020 3:14 PM EDT HC PARTIAL THROMBOPLASTIN TIME Routine 02/19/2020 2:30 PM EDT HC PROTHROMBIN TIME Routine 02/19/2020 2 :30 PM EDT HC PLATELET COUNT Routine 02/19/2020 2:3 0 PM EDT TRANSFUSE 1 UNIT PLATELET PHERESIS Routine 02/19/2020 11:43 AM EDT PREPARE PLATELETS, APHERESIS Routine 02/19/2020 10:20 AM EDT HEMOGRAM Routine 02/19/2020 8:00 AM EDT DIFFERENTIAL, AUTOMATED Routine 02/19/20 20 8:00 AM EDT HC CBC,PLT & AUTO DIFF Routine 0 8:00 AM EDT HC L-LACTATE Routine 02/18/2020 6:30 PM EDT CRYPTOSPORIDIUM OOCYST ANTIGEN ([facility]/CG[facility]/APD) Routine 02/18/2020 10:59 AM EDT HC GIARDIA ANTIGEN MAAME METHOD Routine 02/18/2020 10:59 AM EDT GIARDIA ANTIGEN ([facility]/CGP/APD/NLH) Routine 02/18/2020 10:59 AM EDT HC CREATININE - NON BLOOD Routine 02/18/2020 10:59 AM EDT HC VENIPUNCTURE Routine 02/18/2020 9:33 AM EDT HEMOGRAM Timed 02/18/2020 8:05 AM EDT DIFFERENTIAL, AUTOMATED Timed 02/18/20 20 8:05 AM EDT HC CBC,PLT & AUTO DIFF Timed 0 8:05 AM EDT HEMOGRAM Routine 02/17/2020 5:30 AM EDT DIFFERENTIAL, AUTOMATED Routine 02/17/20 20 5:30 AM EDT HC CBC,PLT & AUTO DIFF Routine 0 5:30 AM EDT BASIC METABOLIC PANEL Timed 02/17/2020 5:30 AM EDT HC C. DIFF QUIK CHEK ANTIGEN Routine 02/16/2020 10:00 PM EDT HEMOGRAM Routine 02/16/2020 8:15 AM EDT DIFFERENTIAL, AUTOMATED Routine 02/16/20 20 8:15 AM EDT HC CBC,PLT & AUTO DIFF Routine 0 8:15 AM EDT BASIC METABOLIC PANEL Routine 02/16/2020 8:15 AM EDT HC HEMOGRAM Routine 02/15/2020 6:05 PM EDT TRANSFUSE RED BLOOD CELLS Routine 02/15/2020 2:19 PM EDT HC HEMOGRAM Routine 02/15/2020 12:30 PM EDT PREPARE RBC Routine 02/15/2020 11:45 AM EDT TRANSFUSE RED BLOOD CELLS Routine 02/15/2020 8:44 AM EDT PREPARE RBC Routine 02/15/2020 7:20 AM EDT HC HEMOGRAM Routine 02/15/2020 5:45 AM EDT SCAN, PERIPHERAL BLOOD Routine 0 4:20 AM EDT HEMOGRAM Routine 02/15/2020 4:20 AM EDT DIFFERENTIAL, AUTOMATED Routine 02/15/20 20 4:20 AM EDT HC CBC,PLT & AUTO DIFF Routine 0 4:20 AM EDT BASIC METABOLIC PANEL Routine 02/15/2020 4:20 AM EDT LAB SCAN 02/15/2020 12:00 AM EDT KAMAR, LEGS, MULTIPLE LEVELS Routine 02/14/2020 12:28 PM EDT 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 HEMOGRAM Routine 02/14/2020 1:50 AM EDT DIFFERENTIAL, AUTOMATED Routine 02/14/20 20 1:50 AM EDT HC CBC,PLT & AUTO DIFF Routine 0 1:50 AM EDT HC ALBUMIN, SERUM Routine 02/14/2020 1:5 0 AM EDT BASIC METABOLIC PANEL Routine 02/14/2020 1:50 AM EDT HEMOGRAM STAT 02/13/2020 5:50 PM EDT DIFFERENTIAL, AUTOMATED STAT 02/13/20 20 5:50 PM EDT HC CBC,PLT & AUTO DIFF STAT 0 5:50 PM EDT BASIC METABOLIC PANEL STAT 02/13/2020 5:50 PM EDT LIVER BIOPSY (PERCUTANEOUS) Routine 02/13/2020 4:39 PM EDT Malignant neoplasm of urinary bladder, unspecified site BLOOD GAS ARTERIAL POC Routine 0 3:59 PM EDT SPECIMEN TO PATHOLOGY Routine 02/13/2020 3:54 PM EDT SPECIMEN TO PATHOLOGY Routine 02/13/2020 3:22 PM EDT BLOOD GAS ARTERIAL POC Routine 0 2:57 PM EDT SPECIMEN TO PATHOLOGY Routine 02/13/2020 2:26 PM EDT SPECIMEN TO PATHOLOGY Routine 02/13/2020 2:12 PM EDT BLOOD GAS ARTERIAL POC Routine 0 1:50 PM EDT SPECIMEN TO PATHOLOGY Routine 02/13/2020 1:35 PM EDT SPECIMEN TO PATHOLOGY Routine 02/13/2020 1:29 PM EDT SPECIMEN TO PATHOLOGY Routine 02/13/2020 1:20 PM EDT SPECIMEN TO PATHOLOGY Routine 02/13/2020 1:15 PM EDT SPECIMEN TO PATHOLOGY Routine 02/13/2020 12:57 PM EDT BLOOD GAS ARTERIAL POC Routine 0 12:44 PM EDT SPECIMEN TO PATHOLOGY STAT 02/13/2020 11:56 AM EDT SPECIMEN TO PATHOLOGY STAT 02/13/2020 11:21 AM EDT SURGICAL PATHOLOGY REPORT Routine 02/13/2020 10:31 AM EDT SPECIMEN TO PATHOLOGY STAT 02/13/2020 10:31 AM EDT BLOOD GAS ARTERIAL POC Routine 0 10:06 AM EDT LYMPHADENECTOMY, PELVIC, FELA Routine 02/13/2020 9:49 AM EDT Malignant neoplasm of urinary bladder, unspecified site XR FLUORO NO RAD <1HR - OR USE Routine 02/13/2020 8:57 AM EDT Needle Biopsy Liver ([id number]) Yes 02/13/2020 8:56 AM EDT Malignant neoplasm of urinary bladder, unspecified site Remove Pelvis Lymph Nodes ([id number]) Yes 02/13/2020 8:56 AM EDT Malignant neoplasm of urinary bladder, unspecified site Cystectomy, Ileal Conduit/Sigmoid Bladder ([id number]) Yes 02/13/2020 8:56 AM EDT Malignant neoplasm of urinary bladder, unspecified site SCAN, PERIPHERAL BLOOD Routine 0 7:05 AM EDT HEMOGRAM Routine 02/13/2020 7:05 AM EDT DIFFERENTIAL, AUTOMATED Routine 02/13/20 20 7:05 AM EDT HC CBC,PLT & AUTO DIFF Routine 0 7:05 AM EDT HC PHOSPHORUS, SERUM Routine 02/13/2020 7:05 AM EDT HC MAGNESIUM, SERUM Routine 02/13/2020 7 :05 AM EDT BASIC METABOLIC PANEL Routine 02/13/2020 7:05 AM EDT documented in this encounter Results * (ABNORMAL) Comprehensive metabolic panel (non-fasting) (03/25/2020 1:27 PM EDT) Glucose 137 65 - 199 mg/dL [facility] Comment:Diabetes: >=200 mg/d L plus symptoms Blood Urea Nitrogen 44(H) 10 - 20 mg/dL [facility] Creatinine 1.17 0.80 - 1.50 mg/dL [facility] Sodium 140 135 - 145 mmol/L [facility] Potassium 4.1 3.5 - 5.0 mmol/L [facility] Comment: Please note: ??Patients with WBC >100,000 may have falsely elevated Potassium levels. ??For accurate Potassium quantification in these patients send serum separator tube (gold top) for subsequent determinations. ??Contact the Clinical Chemistry Laboratory if there are any questions. Chloride 108(H) 98 - 107 mmol/L [facility] Carbon Dioxide 20(L) 22 - 31 mmol/L [facility] Anion Gap 12 5 - 15 mmol/L [facility] Calcium 9.2 8.5 - 10.5 mg/dL [facility] Protein, Total 6.9 6.1 - 8.0 gm/dL [facility] Albumin 3.6 3.2 - 5.2 gm/dL [facility] Aspartate Aminotransferase 21 0 - 39 unit/L [facility] Alanine Aminotransferase 37 0 - 55 unit/L [facility] Alkaline Phosphatase 176(H) 40 - 130 unit/L [facility] Bilirubin, Total <0.2(L) 0.2 - 1.3 mg/dL [facility] Est Glomerular Filtration Rate 64 >=60 mL/min/1. 73 m?? [facility] Comment: The eGFR was calculated using the CKD-EPI equation. As with all creatinine based estimates of kidney function, eGFR values calculated with the CKD-EPI equation are not accurate in patients with acute kidney failure, extremes of body mass or the acutely ill. [email or web address] eGFR 74 >=60 mL/min/1. 73 m?? [facility] Comment: The eGFR was calculated using the CKD-EPI equation. As with all creatinine based estimates of kidney function, eGFR values calculated with the CKD-EPI equation are not accurate in patients with acute kidney failure, extremes of body mass or the acutely ill. [email or web address] Blood specimen (specimen) 03/25/2020 1:27 PM EDT 03/25/2020 1:51 PM EDT Narrative Resulting Agency Comment Spec In Lab Nima Armstrong MD CHEMISTRY ORDERABLES [facility] [place] [address] * CT Angiogram Aortic Lower Extremity Runoff (03/22/2020 2:05 PM EDT) Anatomical Region Laterality Modality Abdomen Computed Tomogra phy Impressions 03/22/2020 2:45 PM EDT Unable to complete the examination. There will be no charge for this study. Thank you for letting us participate in the care of this patient. For questions regarding this report, please contact the number below. ? Narrative 03/22/2020 2:45 PM EDT EXAMINATION: CT [...] this report, please contact the number below. Nima Armstrong MD IM CT ORDERABLES * Surgical Pathology Report (03/06/2020 8:26 AM EDT) Final Diagnosis [id number] ? Location: 2WST; 0206; A The signing pathologist has (i) examined the relevant preparation(s) for the specimen(s) and (ii) rendered or confirmed the diagnosis(es). . ?Surgical Pathology DIAGNOSIS Esophagus, ??biopsy: Esophageal squamous mucosa within normal limits. Electronically signed by: ??Rick LION, Kalani Verified: ??03/08/2020 ?Pathologist Performed at: ??-[facility] Dept. of [place]ology, [place], [place] SPECIMEN(S) SUBMITTED A - esophageal bx, biopsy (1) CLINICAL INFORMATION Nausea, vomiting and dysphagia SPECIMEN PROCESSING A - Labeled/Fixativ e: Esophageal biopsy, formalin. Quantity/Size: Two, each 0.3 cm. Tissue Description: Soft, wispy pink-white tissues. Sections/Proces sing: Submitted en toto ??in 1 cassette labeled A1. ??ajw 03/08/2020 9:59 PM EDT [facility] GI Biopsy 03/06/2020 8:26 AM EDT 03/06/2020 8:26 AM EDT Chato York MD PATHOLOGY/CYTOLOGY O ESCOBAR Performing Organization Address [facility] Co de Phone Number [facility] [place] [address] * Specimen to Pathology (03/06/2020 8:26 AM EDT) AP Specimen 03/06/2020 8:26 AM EDT 03/06/2020 8:26 AM EDT Narrative [facility] - 03/06/2020 8:26 AM EDT Specimen requisition ordered. ??Separate Pathology report to follow Nima Armstrong MD PATHOLOGY/CYTOLOGY O ESCOBAR Performing Organization Address [facility] Co de Phone Number [facility] [place] [address] * UPPER GI ENDOSCOPY (03/06/2020 8:07 AM EDT) UPPER GI ENDOSCOPY [facility] Procedure Date: 03/06/2020 8:07 AM ? Patient Name: Wally Aguilar ? Date of : 1950 ? Age: 69 ? Order #: [id number] ? Instrument Name: [id number] ? Procedure: ? Upper GI endoscopy Indications: ? Dysphagia, Esophageal reflux symptoms ? that persist despite appropriate ? therapy Patient Profile: ? 69 yo M with food intolerance and ? nausea here for EGD. Providers: ? Brandi Vasques ? KEYA Springer, Wally Valadez, ? Deloris Vargas Referring MD: ?Subhash Dowling MD Medicines: ? Monitored Anesthesia Care Complications: ? No immediate complications. Procedure: ? Pre-Anesthesia Assessment: ? - Prior to the procedure, a History ? and Physical was performed, and ? patient medications and allergies ? were reviewed. The patient's ? tolerance of previous anesthesia was ? also reviewed. The risks and benefits ? of the procedure and the sedation ? options and risks were discussed with ? the patient. All questions were ? answered, and informed consent was ? obtained. Prior Anticoagulants: The ? patient has taken no previous ? anticoagulant or antiplatelet agents. ? ASA Grade Assessment: III - A patient ? with severe systemic disease. After ? reviewing the risks and benefits, the ? patient was deemed in satisfactory ? condition to undergo the procedure. ? The procedure, indications, benefits, ? risks and alternatives were explained ? to the patient. Specifically ? discussed were potential ? complications including, but not ? limited to, bleeding, perforation, ? infection, missing a cancer, and ? adverse medication reactions. The ? Endoscope was introduced through the ? mouth, and advanced to the second ? part of duodenum. The patient ? tolerated the procedure well. The ? upper GI endoscopy was accomplished ? without difficulty. The patient ? tolerated the procedure well. ? Findings: ? LA Grade D (one or more mucosal breaks involving at ? least 75% of esophageal circumference) esophagitis ? with no bleeding was found from 35-40 cm from the ? incisors. This was biopsied with a cold forceps for ? diagnostic purposes. Estimated blood loss: none. ? Small (3-cm) hiatal hernia. The entire examined ? stomach was normal. PEG site visualized. No ulcer or ? buried bumper. ? Localized mildly erythematous mucosa and with no ? stigmata of bleeding was found in the first portion ? of the duodenum. Estimated blood loss: none. ? Moderate Sedation: ? An independent trained observer was present and ? continuously monitored the patient. Impression: ?- LA Grade D erosive esophagitis. ? Biopsied. ? - Normal stomach. Small hiatal hernia. ? - Erythematous duodenopathy. Recommendation: ?- [facility] ? [facility] care. ? - Resume previous diet. ? - Continue pantoprazole 40mg BID ? - Start carafate 1g QID ? - Follow up pathology ? - Repeat EGD in 3 months to reassess ? esophagitis, evaluate for Martinez ? esophagus ? Procedure Code(s): ?? --- Professional --- ? 47818, Esophagogastroduo denoscopy, ? flexible, transoral; with biopsy, ? single or multiple CPT copyright 2019 [employer] [place] [employer]. All rights reserved. The codes documented in this report are preliminary and upon yarn comber review may be revised to meet current compliance requirements. Attending Participation: ? I was present and participated during the entire ? procedure, including non-wilson portions. ? __ Chato York, 03/06/2020 8:47:19 AM Number of Addenda: 0 Note Initiated On: 03/06/2020 8:07 AM PROVATION 03/06/2020 8:07 AM EDT Subhash Dowling MD GENERAL SURGICAL ORD ERABLES [facility]ATION * Phosphorus (03/06/2020 1:45 AM EDT) Phosphorus 4.0 2.5 - 4.5 mg/dL [facility] Blood specimen (specimen) 03/06/2020 1:45 AM EDT 03/06/2020 1:55 AM EDT Narrative Resulting Agency Comment Spec In Lab Nima Armstrong MD CHEMISTRY ORDERABLES Performing Organization Address [facility]/ZIP Co de Phone Number [facility] [place] [address] * Magnesium (03/06/2020 1:45 AM EDT) Magnesium 0.96 0.69 - 1.07 mmol/L [facility] Blood specimen (specimen) 03/06/2020 1:45 AM EDT 03/06/2020 1:55 AM EDT Narrative Resulting Agency Comment Spec In Lab Nima Armstrong MD CHEMISTRY ORDERABLES Performing Organization Address [facility] de Phone Number [facility] [place] [address] * (ABNORMAL) Basic Metabolic Panel (non-fasting) (03/06/2020 1:45 AM EDT) Glucose 99 65 - 199 mg/dL [facility] Comment:Diabetes: >=200 mg/d L plus symptoms Blood Urea Nitrogen 46(H) 10 - 20 mg/dL [facility] Creatinine 0.85 0.80 - 1.50 mg/dL [facility] Sodium 137 135 - 145 mmol/L [facility] Potassium 5.1(H) 3.5 - 5.0 mmol/L [facility] Comment: Please note: ??Patients with WBC >100,000 may have falsely elevated Potassium levels. ??For accurate Potassium quantification in these patients send serum separator tube (gold top) for subsequent determinations. ??Contact the Clinical Chemistry Laboratory if there are any questions. Chloride 105 98 - 107 mmol/L [facility] Carbon Dioxide 22 22 - 31 mmol/L [facility] Anion Gap 10 5 - 15 mmol/L [facility] Calcium 9.3 8.5 - 10.5 mg/dL [facility] Est Glomerular Filtration Rate 90 >=60 mL/min/1. 73 m?? [facility] Comment: The eGFR was calculated using the CKD-EPI equation. As with all creatinine based estimates of kidney function, eGFR values calculated with the CKD-EPI equation are not accurate in patients with acute kidney failure, extremes of body mass or the acutely ill. [email or web address] eGFR 104 >=60 mL/min/1. 73 m?? [facility] Comment: The eGFR was calculated using the CKD-EPI equation. As with all creatinine based estimates of kidney function, eGFR values calculated with the CKD-EPI equation are not accurate in patients with acute kidney failure, extremes of body mass or the acutely ill. [email or web address] Blood specimen (specimen) 03/06/2020 1:45 AM EDT 03/06/2020 1:55 AM EDT Narrative Resulting Agency Comment Spec In Lab Nima Armstrong MD CHEMISTRY ORDERABLES [facility] [place] [address] * COVID-19 PCR (03/05/2020 11:03 AM EDT) SARS-CoV-2 RNA Not Detected Not Detected [facility] Comment: This result should be interpreted in combination with the clinical observations, patient history and epidemiological information. For testing of asymptomatic individuals, assay performance characteristics and clinical utility have not been evaluated. Testing for SARS-CoV-2 (Severe acute respiratory syndrome coronavirus 2, formerly known as 2019 novel coronavirus or 2019-nCoV) to aid in the diagnosis of COVID-19 is performed using the [employer] RealTime SARS-CoV-2 as authorized by the FDA Emergency Use Authorization (EUA). This EUA assay is intended for In-vitro Diagnostic (IVD) use with respiratory specimens such as nasopharyngeal swabs collected from individuals during the acute phase of infection. This assay is performed based on the instructions for use provided by the [employer] and additional guidance provided by [facility] and FDA. Testing is performed in the [facility] Laboratory within the Department of Pathology and Laboratory Medicine at [facility], certified under the Clinical Laboratory Improvement Amendments of 1988 (CLIA), 42 U.S.C. section 263a, to perform high complexity tests. Assay performance has been verified according to clinical laboratory regulatory requirements. Test results are provided above. A result of Not Detected indicates that the viral RNA target is not present but does not preclude SARS-CoV-2 infection. False negative results may occur if a specimen is improperly collected, transported or handled; if amplification inhibitors are present; or if inadequate numbers of viral particles are present in the specimen. A result of Detected suggests a current or recent infection and the patient is presumed to be infected. As required or requested by public health authorities, positive specimens may be sent for additional testing. Positive and negative predictive values for this test are highly dependent on disease prevalence. A result of Invalid indicates that neither the viral RNA targets nor the internal control target was detected. An invalid result suggests the presence of inhibitors. Recollection is recommended in the case of an invalid result. CDC COVID-19 criteria for testing on human specimens and clinical management guidance information are available at the CDC Coronavirus Disease 2019 (COVID-19) webpage under Information for Healthcare Professionals (https://www.cdc.gov/coronavirus/2019-ncov/hcp/index.html) Additional information about this and other EUA tests can be found in provider and patient fact sheets at the following FDA website: https://www.fda.gov/medical-devices/tbazjkgam-qxyuyurtqx-jcbrotn-devices/emergen -us e-authorizations#rsjnw56kde SARS-CoV-2 RNA Source [employer] Swab [facility] Nasopharyngeal swab (specimen) 03/05/2020 11:03 AM EDT 03/05/2020 1:15 PM EDT Comment:Needed for admission to SNF/rehab Narrative Resulting Agency Comment Spec In Lab Nima Armstrong MD MOLECULAR ORDERABLES Performing Organization Address [facility] Co de Phone Number [facility] [place] [address] * CRP, cardiac risk (HS CRP) (02/29/2020 2:32 PM EDT) C-Reactive Protein High Sensitivity 13.0 mg/L [facility] Comment: For cardiac risk assessment, two values (fasting or nonfasting sample acceptable) taken at least 2 weeks apart, should be averaged to provide a more reliable estimate of marker level. This laboratory will be using the recommendations from the AHA/CDC Scientific Statement for interpretations of future risks of cardiovascular events: ?<1.0 mg/L: low risk ?1.0 to 3.0 mg/L: moderate risk ?>3.0 mg/L: high risk ?>10.0 mg/L: Acute Inflammation Note: CRP values >10 mg/L indicate an acute inflammatory condition or infection. The >10 mg/L value should not be used for cardiac risk assessment and a repeat specimen should be collected at least two weeks after resolution of the acute inflammatory condition. References: 1. [place] TRINIDAD et. al. ??AHA/CDC Scientific Statement: Markers of Inflammation and Cardiovascular Disease. ??Circulation 2003; 107:499-511 2. Ridker PM. ??Clinical applications of C-reactive protein for cardiovascular disease detection and prevention. ??Circulation 2003; 107:363-369 CRP Cardiac Risk Acute Inflammation [facility] Blood specimen (specimen) 02/29/2020 2:32 PM EDT 02/29/2020 3:16 PM EDT Narrative Resulting Agency Comment Spec In Lab Nima Armstrong MD CHEMISTRY ORDERABLES Performing Organization Address [facility] Co de Phone Number [facility] [place] [address] * (ABNORMAL) Sedimentation rate (02/29/2020 2:32 PM EDT) Sedimentation Rate Automated 101(H) 2 - 37 mm/hr [facility] Comment: Effective June 21, 2019 new capillary photometric technology has resulted in a change in reference ranges. It is recommended that each ESR result be reviewed with its own age appropriate reference range. Blood specimen (specimen) 02/29/2020 2:32 PM EDT 02/29/2020 3:16 PM EDT Narrative Resulting Agency Comment Spec In Lab Nima Armstrong MD HEMATOLOGY ORDERABLE S Performing Organization Address [facility] Co de Phone Number [facility] [place] [address] * Folate, serum (02/29/2020 1:57 AM EDT) Pathologist [facility] Folate 10.9 4.8 - 24.2 ng/mL [facility] Blood specimen (specimen) 02/29/2020 1:57 AM EDT 02/29/2020 2:02 AM EDT Narrative Resulting Agency Comment Spec In Lab Nima Armstrong MD CHEMISTRY ORDERABLES Performing Organization Address [facility] Co de Phone Number [facility] [place] [address] * IR G-Tube Placement (02/28/2020 11:19 AM EDT) Anatomical Region Laterality Modality Chest X-Ray Angiograph y Narrative 02/28/2020 12:25 PM EDT INTERVENTIONAL RADIOLOGY PROCEDURE NOTE Procedure: Gastrostomy tube placement under fluoroscopic guidance Indication for Procedure: inadequate oral intake, malnutrition 69 y.o. 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 ?? Etiology unclear, but believed to have started prior to his hospitalization. ?? Dr. Seigne recommended GT for malnutrition. Consent: Informed consent for the procedure including risks, benefits and alternatives was obtained and time-out was performed prior to the procedure. Level of anesthesia/sedation: Moderate sedation (conscious sedation) Sedation administered by: Independent trained observer under attending supervision with continuous monitoring of the patients level of consciousness and physiologic status Technique: ??The patient was positioned supine on the procedure table. The liver margin was localized by ultrasound. A prophylactic antibiotic (Ancef 2 g intravenous) was administered. A nasogastric tube was placed in the stomach under fluoroscopic guidance. The site was prepared and draped using maximal sterile barrier technique including cutaneous antisepsis. Local anesthesia was administered. Glucagon 1 mg intravenous was administered to minimize peristaltsis. After insufflation of air via the nasogastric tube, apposition of the anterior wall of the stomach with the anterior wall of the abdomen was documented with a lateral fluoroscopic image. An 18-gauge needle with a preloaded stay suture was advanced under fluoroscopic guidance into the stomach and a stay suture was deployed. This was repeated. Another puncture was made between the stay sutures with an 18-gauge needle and a guidewire was placed in the stomach. [id number] a tract was dilated with a 7 mm Lynx balloon. A 16 Fr balloon retained gastrostomy tube was placed [id number]. Retention balloon inflated with 5 cc sterile water. A contrast study demonstrated intragastric location of the gastrostomy tube. The stay sutures were secured. A sterile dressing was applied. Complications: ??No immediate complications. Contrast Contrast agent: Omnipaque 350 Contrast volume (mL): 20 Radiation Dose Fluoroscopy time (minutes): 3.23 Reference air kerma (mGy): 11.8 Medications: Lidocaine 1% 20 mL subcutaneous midazolam 1.5 mg intravenous Fentanyl 175 mcg intravenous Glucagon 1 mg intravenous Ancef 2 grams intravenous Specimens removed: None Estimated blood loss (mL): Less than 10 mL Findings: Gastrostomy tube tip in the stomach. Impression: Technically successful percutaneous placement of a 16 [place] balloon retained gastrostomy tube. Plan/Disposition: 1) To Angio recovery room. May transfer to floor when meets criteria. 2) Gastrostomy tube may be used in 8 hours if bowel sounds have returned. 3) Resume care by clinical service. 4) Gastropexy release in 7-10 days (ordered and IR personnel scheduler notified). Assistant Inventory Manager(s): Resident Physician: Roberto Bradshaw DO Attending Physician: Toño Carmichael MD I, Dr. Carmichael, was present throughout the procedure. I was present during the intraservice time as documented by the IR Nurse. ?? 02/28/2020 Nima Armstrong MD IMG IR ORDERABLES * (ABNORMAL) Vitamin D, 25-Hydroxy (02/28/2020 9:15 AM EDT) Vitamin D Total 25 OH 15(L) 21 - 100 ng/mL [facility] Comment: Please note, effective November 15, 2019, additional result field for Vitamin D Interpretation, and updated flagging notification. Vit D Interp Deficient [facility] Blood specimen (specimen) 02/28/2020 9:15 AM EDT 02/28/2020 9:22 AM EDT Narrative Resulting Agency Comment Spec In Lab Nima Armstrong MD CHEMISTRY ORDERABLES Performing Organization Address City/[facility]/ZIP Co de Phone Number [facility] [place] [address] * Vitamin B12 (02/28/2020 9:15 AM EDT) Vitamin B12 765 232 - 1,245 pg/mL [facility] Blood specimen (specimen) 02/28/2020 9:15 AM EDT 02/28/2020 9:22 AM EDT Narrative Resulting Agency Comment Spec In Lab Nima Armstrong MD CHEMISTRY ORDERABLES Performing Organization Address City/[facility]/ZIP Co de Phone Number [facility] [place] [address] * TSH (02/28/2020 9:15 AM EDT) Thyroid Stimulating Hormone 1.32 0.27 - 4.20 mcIU/mL [facility] Blood specimen (specimen) 02/28/2020 9:15 AM EDT 02/28/2020 9:22 AM EDT Narrative Resulting Agency Comment Spec In Lab Nima Armstrong MD CHEMISTRY ORDERABLES Performing Organization Address [facility]/ZIP Co de Phone Number [facility] [place] [address] * Phosphorus (02/28/2020 2:07 AM EDT) Phosphorus 4.1 2.5 - 4.5 mg/dL [facility] Blood specimen (specimen) 02/28/2020 2:07 AM EDT 02/28/2020 2:39 AM EDT Narrative Resulting Agency Comment Spec In Lab Willian Shaikh APRN CHEMISTRY ORDERA BLES Performing Organization Address [facility] Co de Phone Number [facility] [place] [address] * Magnesium (02/28/2020 2:07 AM EDT) Pathologist [facility] Magnesium 1.01 0.69 - 1.07 mmol/L [facility] Blood specimen (specimen) 02/28/2020 2:07 AM EDT 02/28/2020 2:39 AM EDT Narrative Resulting Agency Comment Spec In Lab Willian Shaikh APRN CHEMISTRY ORDERA BLES Performing Organization Address [facility] Co de Phone Number [facility] [place] [address] * (ABNORMAL) Basic Metabolic Panel (non-fasting) (02/28/2020 2:07 AM EDT) Glucose 151 65 - 199 mg/dL [facility] Comment:Diabetes: >=200 mg/d L plus symptoms Blood Urea Nitrogen 67(H) 10 - 20 mg/dL [facility] Creatinine 0.83 0.80 - 1.50 mg/dL [facility] Sodium 148(H) 135 - 145 mmol/L [facility] Potassium 4.2 3.5 - 5.0 mmol/L [facility] Comment: Please note: ??Patients with WBC >100,000 may have falsely elevated Potassium levels. ??For accurate Potassium quantification in these patients send serum separator tube (gold top) for subsequent determinations. ??Contact the Clinical Chemistry Laboratory if there are any questions. Chloride 112(H) 98 - 107 mmol/L [facility] Carbon Dioxide 23 22 - 31 mmol/L [facility] Anion Gap 13 5 - 15 mmol/L [facility] Calcium 8.5 8.5 - 10.5 mg/dL [facility] Est Glomerular Filtration Rate 91 >=60 mL/min/1. 73 m?? [facility] Comment: The eGFR was calculated using the CKD-EPI equation. As with all creatinine based estimates of kidney function, eGFR values calculated with the CKD-EPI equation are not accurate in patients with acute kidney failure, extremes of body mass or the acutely ill. [email or web address] eGFR 106 >=60 mL/min/1. 73 m?? [facility] Comment: The eGFR was calculated using the CKD-EPI equation. As with all creatinine based estimates of kidney function, eGFR values calculated with the CKD-EPI equation are not accurate in patients with acute kidney failure, extremes of body mass or the acutely ill. [email or web address] Blood specimen (specimen) 02/28/2020 2:07 AM EDT 02/28/2020 2:39 AM EDT Narrative Resulting Agency Comment Spec In Lab Willian Shaikh APRN CHEMISTRY ORDERA BLES [facility] [place] [address] * (ABNORMAL) Basic Metabolic Panel (non-fasting) (02/25/2020 2:02 AM EDT) Glucose 127 65 - 199 mg/dL [facility] Comment:Diabetes: >=200 mg/d L plus symptoms Blood Urea Nitrogen 39(H) 10 - 20 mg/dL [facility] Creatinine 0.75(L) 0.80 - 1.50 mg/dL [facility] Sodium 135 135 - 145 mmol/L [facility] Potassium 4.7 3.5 - 5.0 mmol/L [facility] Comment: Please note: ??Patients with WBC >100,000 may have falsely elevated Potassium levels. ??For accurate Potassium quantification in these patients send serum separator tube (gold top) for subsequent determinations. ??Contact the Clinical Chemistry Laboratory if there are any questions. Chloride 102 98 - 107 mmol/L [facility] Carbon Dioxide 23 22 - 31 mmol/L [facility] Anion Gap 10 5 - 15 mmol/L [facility] Calcium 8.0(L) 8.5 - 10.5 mg/dL [facility] Est Glomerular Filtration Rate 95 >=60 mL/min/1. 73 m?? [facility] Comment: The eGFR was calculated using the CKD-EPI equation. As with all creatinine based estimates of kidney function, eGFR values calculated with the CKD-EPI equation are not accurate in patients with acute kidney failure, extremes of body mass or the acutely ill. [email or web address] eGFR 110 >=60 mL/min/1. 73 m?? [facility] Comment: The eGFR was calculated using the CKD-EPI equation. As with all creatinine based estimates of kidney function, eGFR values calculated with the CKD-EPI equation are not accurate in patients with acute kidney failure, extremes of body mass or the acutely ill. [email or web address] Blood specimen (specimen) 02/25/2020 2:02 AM EDT 02/25/2020 2:06 AM EDT Narrative Resulting Agency Comment Spec In Lab Nima Armstrong MD CHEMISTRY ORDERABLES [facility] [place] [address] * Differential, Automated (02/24/2020 2:05 AM EDT) Neutrophil % 73.3 % [facility] Neutrophil Absolute 5.87 1.70 - 6.10 x10(3)/[facility] Lymph % 15.1 % [facility] Lymphocytes Abs 1.2 0.9 - 3.2 x10(3)/[facility] Monocyte % 8.3 % [facility] Monocyte Abs 0.7 0.3 - 0.9 x10(3)/[facility] Eos % 2.3 % [facility] Eosinophils Abs 0.2 0.0 - 0.4 x10(3)/[facility] Basophil % 0.5 % [facility] Baso Absolute 0.0 0.0 - 0.1 x10(3)/[facility] Immature Gran % 0.50 % [facility] Comment: Immature granulocytes(IG's)percentage and absolute count will include metamyelocytes, myelocytes, and promyelocytes. Blood smears from CBCs yielding IG's will be scanned manually for concordance. If this scan disagrees with the automated IG or if promyelocytes are noted, a manual differential will be performed. Immature Gran Absolute 0.04 0.00 - 0.04 x10(3)/[facility] [place] [place] Blood specimen (specimen) 02/24/2020 2:05 AM EDT 02/24/2020 2:30 AM EDT Narrative Resulting Agency Comment Spec In Lab La Jean-Baptiste MD HEMATOLOGY ORDERABLE S [facility] [place] [address] * (ABNORMAL) Hemogram (02/24/2020 2:05 AM EDT) [facility] White Blood Cell 8.0 4.0 - 9.5 x10(3)/mc L [facility] Red Blood Cell 2.97(L) 4.58 - 5.54 x10(6)/ L [facility] Hemoglobin 9.3(L) 13.7 - 16.5 gm/dL [facility] Hematocrit 29.0(L) 40.5 - 48.5 % [facility] Mean Cell Volume 97.6(H) 82.9 - 93.1 fL [facility] Mean Cell Hemoglobin 31.3 27.5 - 32.1 pg [facility] Mean Cell Hemoglobin Concentration 32.1 32.0 - 35.7 gm/dL [facility] Platelet 103(L) 145 - 357 x10(3)/mc L [facility] RDW Standard Deviation 56.9(H) 36.0 - 45.0 fL [facility] RDW coefficient of variation 15.9(H) 11.4 - 13.8 % [facility] Mean Platelet Volume 11.8 7.6 - 12.9 [facility] NRBC% auto 0.0 % [facility] NRBC Absolute 0.000 0.000 - 0.000 x10(3)/mc L [facility] Blood specimen (specimen) 02/24/2020 2:05 AM EDT 02/24/2020 2:30 AM EDT Narrative Resulting Agency Comment Spec In Lab La Jean-Baptiste MD HEMATOLOGY ORDERABLE S [facility] [place] [address] * (ABNORMAL) Basic Metabolic Panel (non-fasting) (02/24/2020 2:05 AM EDT) Glucose 121 65 - 199 mg/dL [facility] Comment:Diabetes: >=200 mg/d L plus symptoms Blood Urea Nitrogen 34(H) 10 - 20 mg/dL [facility] Creatinine 0.71(L) 0.80 - 1.50 mg/dL [facility] Sodium 133(L) 135 - 145 mmol/L [facility] Potassium 4.7 3.5 - 5.0 mmol/L [facility] Comment: Please note: ??Patients with WBC >100,000 may have falsely elevated Potassium levels. ??For accurate Potassium quantification in these patients send serum separator tube (gold top) for subsequent determinations. ??Contact the Clinical Chemistry Laboratory if there are any questions. Chloride 104 98 - 107 mmol/L [facility] Carbon Dioxide 21(L) 22 - 31 mmol/L [facility] Anion Gap 8 5 - 15 mmol/L [facility] Calcium 7.7(L) 8.5 - 10.5 mg/dL [facility] Est Glomerular Filtration Rate 97 >=60 mL/min/1. 73 m?? [facility] Comment: The eGFR was calculated using the CKD-EPI equation. As with all creatinine based estimates of kidney function, eGFR values calculated with the CKD-EPI equation are not accurate in patients with acute kidney failure, extremes of body mass or the acutely ill. [email or web address] eGFR 113 >=60 mL/min/1. 73 m?? [facility] Comment: The eGFR was calculated using the CKD-EPI equation. As with all creatinine based estimates of kidney function, eGFR values calculated with the CKD-EPI equation are not accurate in patients with acute kidney failure, extremes of body mass or the acutely ill. [email or web address] Blood specimen (specimen) 02/24/2020 2:05 AM EDT 02/24/2020 2:30 AM EDT Narrative Resulting Agency Comment Spec In Lab Nima Armstrong MD CHEMISTRY ORDERABLES [facility] [place] [address] * Phosphorus (02/24/2020 2:05 AM EDT) Phosphorus 4.5 2.5 - 4.5 mg/dL [facility] Blood specimen (specimen) 02/24/2020 2:05 AM EDT 02/24/2020 2:30 AM EDT Narrative Resulting Agency Comment Spec In Lab Nima Armstrong MD CHEMISTRY ORDERABLES Performing Organization Address City/[facility]/ZIP Co de Phone Number [facility] [place] [address] * Magnesium (02/24/2020 2:05 AM EDT) Magnesium 1.00 0.69 - 1.07 mmol/L [facility] Blood specimen (specimen) 02/24/2020 2:05 AM EDT 02/24/2020 2:30 AM EDT Narrative Resulting Agency Comment Spec In Lab Nima Armstrong MD CHEMISTRY ORDERABLES Performing Organization Address [facility] Co de Phone Number [facility] [place] [address] * (ABNORMAL) Basic Metabolic Panel (non-fasting) (02/23/2020 1:55 AM EDT) Glucose 123 65 - 199 mg/dL [facility] Comment:Diabetes: >=200 mg/d L plus symptoms Blood Urea Nitrogen 33(H) 10 - 20 mg/dL [facility] Creatinine 0.75(L) 0.80 - 1.50 mg/dL [facility] Sodium 136 135 - 145 mmol/L [facility] Potassium 4.8 3.5 - 5.0 mmol/L [facility] Comment: Please note: ??Patients with WBC >100,000 may have falsely elevated Potassium levels. ??For accurate Potassium quantification in these patients send serum separator tube (gold top) for subsequent determinations. ??Contact the Clinical Chemistry Laboratory if there are any questions. Chloride 103 98 - 107 mmol/L [facility] Carbon Dioxide 21(L) 22 - 31 mmol/L [facility] Anion Gap 12 5 - 15 mmol/L [facility] Calcium 7.5(L) 8.5 - 10.5 mg/dL [facility] Est Glomerular Filtration Rate 95 >=60 mL/min/1. 73 m?? [facility] Comment: The eGFR was calculated using the CKD-EPI equation. As with all creatinine based estimates of kidney function, eGFR values calculated with the CKD-EPI equation are not accurate in patients with acute kidney failure, extremes of body mass or the acutely ill. [email or web address] eGFR 110 >=60 mL/min/1. 73 m?? [facility] Comment: The eGFR was calculated using the CKD-EPI equation. As with all creatinine based estimates of kidney function, eGFR values calculated with the CKD-EPI equation are not accurate in patients with acute kidney failure, extremes of body mass or the acutely ill. [email or web address] Blood specimen (specimen) 02/23/2020 1:55 AM EDT 02/23/2020 2:33 AM EDT Narrative Resulting Agency Comment Spec In Lab Nima Armstrong MD CHEMISTRY ORDERABLES Performing Organization Address [facility] Co de Phone Number [facility] [place] [address] * Phosphorus (02/23/2020 1:55 AM EDT) Phosphorus 3.8 2.5 - 4.5 mg/dL [facility] Blood specimen (specimen) 02/23/2020 1:55 AM EDT 02/23/2020 2:30 AM EDT Narrative Resulting Agency Comment Spec In Lab Nima Armstrong MD CHEMISTRY ORDERABLES Performing Organization Address [facility]/ZIP Co de Phone Number [facility] [place] [address] * Magnesium (02/23/2020 1:55 AM EDT) Magnesium 1.04 0.69 - 1.07 mmol/L [facility] Blood specimen (specimen) 02/23/2020 1:55 AM EDT 02/23/2020 2:30 AM EDT Narrative Resulting Agency Comment Spec In Lab Nima Armstrong MD CHEMISTRY ORDERABLES Performing Organization Address [facility]/ZIP Co de Phone Number [facility] [place] [address] * Scan, Peripheral Blood (02/22/2020 2:30 AM EDT) Pathologist [facility] Plat estimate Decreased [facility] RBC Morphology Normal [facility] Macrocyte 1-5 /HPF [facility] Ovalocytes 1-5 /HPF [facility] Atypical Lymph Many [facility] Toxic Granulation Present [facility] Vacuolated Neut Present [facility] Plat, Giant Less than 1 /HPF [facility] Blood specimen (specimen) 02/22/2020 2:30 AM EDT 02/22/2020 2:44 AM EDT Narrative Resulting Agency Comment Spec In Lab Enrrique Patten MD HEMATOLOGY ORDERABLE S Performing Organization Address [facility] Co de Phone Number [facility] [place] [address] * (ABNORMAL) Differential, Automated (02/22/2020 2:30 AM EDT) [facility] Neutrophil % 75.8 % [facility] Neutrophil Absolute 7.24(H) 1.70 - 6.10 x10(3)/mc L [facility] Lymph % 13.2 % [facility] Lymphocytes Abs 1.3 0.9 - 3.2 x10(3)/mc L [facility] Monocyte % 9.4 % [facility] Monocyte Abs 0.9 0.3 - 0.9 x10(3)/mc L [facility] Eos % 0.9 % [facility] Eosinophils Abs 0.1 0.0 - 0.4 x10(3)/mc L [facility] Basophil % 0.3 % [facility] Baso Absolute 0.0 0.0 - 0.1 x10(3)/ L [facility] Immature Gran % 0.40 % [facility] Comment: Immature granulocytes(IG's)percentage and absolute count will include metamyelocytes, myelocytes, and promyelocytes. Blood smears from CBCs yielding IG's will be scanned manually for concordance. If this scan disagrees with the automated IG or if promyelocytes are noted, a manual differential will be performed. Immature Gran Absolute 0.04 0.00 - 0.04 x10(3)/ L [facility] Blood specimen (specimen) 02/22/2020 2:30 AM EDT 02/22/2020 2:44 AM EDT Narrative Resulting Agency Comment Spec In Lab Enrrique Patten MD HEMATOLOGY ORDERABLE S Performing Organization Address City/State/[facility] Co de Phone Number [facility] [place] [address] * (ABNORMAL) Hemogram (02/22/2020 2:30 AM EDT) White Blood Cell 9.6(H) 4.0 - 9.5 x10(3)/ L [facility] Red Blood Cell 3.07(L) 4.58 - 5.54 x10(6)/mc L [facility] Hemoglobin 9.7(L) 13.7 - 16.5 gm/dL [facility] Hematocrit 28.5(L) 40.5 - 48.5 % [facility] Mean Cell Volume 92.8 82.9 - 93.1 fL [facility] Mean Cell Hemoglobin 31.6 27.5 - 32.1 pg [facility] Mean Cell Hemoglobin Concentration 34.0 32.0 - 35.7 gm/dL [facility] Platelet 97(L) 145 - 357 x10(3)/[facility] RDW Standard Deviation 54.2(H) 36.0 - 45.0 fL [facility] RDW coefficient of variation 16.1(H) 11.4 - 13.8 % [facility] Mean Platelet Volume 12.1 7.6 - 12.9 fL [facility] NRBC% auto 0.0 % [facility] NRBC Absolute 0.000 0.000 - 0.000 x10(3)/mc L [facility] Blood specimen (specimen) 02/22/2020 2:30 AM EDT 02/22/2020 2:44 AM EDT Narrative Resulting Agency Comment Spec In Lab Enrrique Patten MD HEMATOLOGY ORDERABLE S [facility] [place] [address] * (ABNORMAL) Basic Metabolic Panel (non-fasting) (02/22/2020 2:30 AM EDT) Glucose 126 65 - 199 mg/dL [facility] Comment:Diabetes: >=200 mg/d L plus symptoms Blood Urea Nitrogen 26(H) 10 - 20 mg/dL [facility] Creatinine 0.73(L) 0.80 - 1.50 mg/dL [facility] Sodium 136 135 - 145 mmol/L [facility] Potassium 4.1 3.5 - 5.0 mmol/L [facility] Comment: Please note: ??Patients with WBC >100,000 may have falsely elevated Potassium levels. ??For accurate Potassium quantification in these patients send serum separator tube (gold top) for subsequent determinations. ??Contact the Clinical Chemistry Laboratory if there are any questions. Chloride 103 98 - 107 mmol/L [facility] Carbon Dioxide 25 22 - 31 mmol/L [facility] Anion Gap 8 5 - 15 mmol/L [facility] Calcium 7.4(L) 8.5 - 10.5 mg/dL [facility] Est Glomerular Filtration Rate 96 >=60 mL/min/1. 73 m?? [facility] Comment: The eGFR was calculated using the CKD-EPI equation. As with all creatinine based estimates of kidney function, eGFR values calculated with the CKD-EPI equation are not accurate in patients with acute kidney failure, extremes of body mass or the acutely ill. [email or web address] eGFR 111 >=60 mL/min/1. 73 m?? [facility] Comment: The eGFR was calculated using the CKD-EPI equation. As with all creatinine based estimates of kidney function, eGFR values calculated with the CKD-EPI equation are not accurate in patients with acute kidney failure, extremes of body mass or the acutely ill. [email or web address] Blood specimen (specimen) 02/22/2020 2:30 AM EDT 02/22/2020 2:44 AM EDT Narrative Resulting Agency Comment Spec In Lab Nima Armstrong MD CHEMISTRY ORDERABLES Performing Organization Address [facility] Co de Phone Number [facility] [place] [address] * Potassium (02/21/2020 8:36 PM EDT) Potassium 4.1 3.5 - 5.0 mmol/L [facility] Comment: result rechecked-imm Please note: ??Patients with WBC >100,000 may have falsely elevated Potassium levels. ??For accurate Potassium quantification in these patients send serum separator tube (gold top) for subsequent determinations. ??Contact the Clinical Chemistry Laboratory if there are any questions. Blood specimen (specimen) 02/21/2020 8:36 PM EDT 02/21/2020 8:44 PM EDT Narrative Resulting Agency Comment Spec In Lab Nima Armstrong MD CHEMISTRY ORDERABLES Performing Organization Address [facility] Co de Phone Number [facility] [place] [address] * Phosphorus (02/21/2020 1:55 AM EDT) Phosphorus 3.3 2.5 - 4.5 mg/dL [facility] Blood specimen (specimen) 02/21/2020 1:55 AM EDT 02/21/2020 2:00 AM EDT Narrative Resulting Agency Comment Spec In Lab Nima Armstrong MD CHEMISTRY ORDERABLES Performing Organization Address [facility] Co de Phone Number [facility] [place] [address] * Magnesium (02/21/2020 1:55 AM EDT) Pathologist [facility] Magnesium 0.90 0.69 - 1.07 mmol/L [facility] Blood specimen (specimen) 02/21/2020 1:55 AM EDT 02/21/2020 2:00 AM EDT Narrative Resulting Agency Comment Spec In Lab Nima Armstrong MD CHEMISTRY ORDERABLES Performing Organization Address [facility] [facility] Co de Phone Number [facility] [place] [address] * (ABNORMAL) Basic Metabolic Panel (non-fasting) (02/21/2020 1:55 AM EDT) [facility] Glucose 130 65 - 199 mg/dL [facility] Comment:Diabetes: >=200 mg/d L plus symptoms Blood Urea Nitrogen 22(H) 10 - 20 mg/dL [facility] Creatinine 0.69(L) 0.80 - 1.50 mg/dL [facility] Sodium 135 135 - 145 mmol/L [facility] Potassium 3.0(Criti heath) 3.5 - 5.0 mmol/L [facility] Comment: Called by: [facility], Read back by: donte bearden, Date/Time:02/21/20 02:33. Please note: ??Patients with WBC >100,000 may have falsely elevated Potassium levels. ??For accurate Potassium quantification in these patients send serum separator tube (gold top) for subsequent determinations. ??Contact the Clinical Chemistry Laboratory if there are any questions. Chloride 101 98 - 107 mmol/L [facility] Carbon Dioxide 24 22 - 31 mmol/L [facility] Anion Gap 10 5 - 15 mmol/L [facility] Calcium 7.2(L) 8.5 - 10.5 mg/dL [facility] Est Glomerular Filtration Rate 98 >=60 mL/min/1. 73 m?? [facility] Comment: The eGFR was calculated using the CKD-EPI equation. As with all creatinine based estimates of kidney function, eGFR values calculated with the CKD-EPI equation are not accurate in patients with acute kidney failure, extremes of body mass or the acutely ill. [email or web address] eGFR 114 >=60 mL/min/1. 73 m?? [facility] Comment: The eGFR was calculated using the CKD-EPI equation. As with all creatinine based estimates of kidney function, eGFR values calculated with the CKD-EPI equation are not accurate in patients with acute kidney failure, extremes of body mass or the acutely ill. [email or web address] Blood specimen (specimen) 02/21/2020 1:55 AM EDT 02/21/2020 2:00 AM EDT Narrative Resulting Agency Comment Spec In Lab Nima Armstrong MD CHEMISTRY ORDERABLES Performing Organization Address City/State/[facility] Co de Phone Number [facility] [place] [address] * (ABNORMAL) Differential, Automated (02/20/2020 2:04 AM EDT) Neutrophil % 72.4 % [facility] Neutrophil Absolute 6.80(H) 1.70 - 6.10 x10(3)/mc L [facility] Lymph % 13.2 % [facility] Lymphocytes Abs 1.2 0.9 - 3.2 x10(3)/mc L [facility] Monocyte % 11.1 % [facility] Monocyte Abs 1.0(H) 0.3 - 0.9 x10(3)/[facility] Eos % 2.3 % [facility] Eosinophils Abs 0.2 0.0 - 0.4 x10(3)/[facility] Basophil % 0.3 % [facility] Baso Absolute 0.0 0.0 - 0.1 x10(3)/[facility] LABORATORY Immature Gran % 0.70 % [facility] Comment: Immature granulocytes(IG's)percentage and absolute count will include metamyelocytes, myelocytes, and promyelocytes. Blood smears from CBCs yielding IG's will be scanned manually for concordance. If this scan disagrees with the automated IG or if promyelocytes are noted, a manual differential will be performed. Immature Gran Absolute 0.07(H) 0.00 - 0.04 x10(3)/[facility] Blood specimen (specimen) 02/20/2020 2:04 AM EDT 02/20/2020 2:10 AM EDT Narrative Resulting Agency Comment Spec In Lab Enrrique Patten MD HEMATOLOGY ORDERABLE S Performing Organization Address City/State/[facility] Co de Phone Number [facility] [place] [address] * (ABNORMAL) Hemogram (02/20/2020 2:04 AM EDT) White Blood Cell 9.4 4.0 - 9.5 x10(3)/[facility] LAB[facility]ATORY Red Blood Cell 2.92(L) 4.58 - 5.54 x10(6)/[facility]ORY Hemoglobin 9.2(L) 13.7 - 16.5 gm/dL [facility] Hematocrit 28.0(L) 40.5 - 48.5 % [facility] Mean Cell Volume 95.9(H) 82.9 - 93.1 fL [facility] Mean Cell Hemoglobin 31.5 27.5 - 32.1 pg [facility] Mean Cell Hemoglobin Concentration 32.9 32.0 - 35.7 gm/dL [facility] Platelet 93(L) 145 - 357 x10(3)/mc L [facility] RDW Standard Deviation 57.1(H) 36.0 - 45.0 fL [facility] RDW coefficient of variation 16.2(H) 11.4 - 13.8 % [facility] Mean Platelet Volume 11.8 7.6 - 12.9 fL [facility] NRBC% auto 0.0 % [facility] NRBC Absolute 0.000 0.000 - 0.000 x10(3)/mc L [facility] Blood specimen (specimen) 02/20/2020 2:04 AM EDT 02/20/2020 2:10 AM EDT Narrative Resulting Agency Comment Spec In Lab Enrrique Patten MD HEMATOLOGY ORDERABLE S [facility] [place] [address] * (ABNORMAL) Basic Metabolic Panel (non-fasting) (02/20/2020 2:04 AM EDT) Glucose 124 65 - 199 mg/dL [facility] Comment:Diabetes: >=200 mg/d L plus symptoms Blood Urea Nitrogen 15 10 - 20 mg/dL [facility] Creatinine 0.81 0.80 - 1.50 mg/dL [facility] Sodium 137 135 - 145 mmol/L [facility] Potassium 3.2(L) 3.5 - 5.0 mmol/L [facility] Comment: Please note: ??Patients with WBC >100,000 may have falsely elevated Potassium levels. ??For accurate Potassium quantification in these patients send serum separator tube (gold top) for subsequent determinations. ??Contact the Clinical Chemistry Laboratory if there are any questions. Chloride 107 98 - 107 mmol/L [facility] Carbon Dioxide 22 22 - 31 mmol/L [facility] Anion Gap 8 5 - 15 mmol/L [facility] Calcium 7.1(L) 8.5 - 10.5 mg/dL [facility] Est Glomerular Filtration Rate 92 >=60 mL/min/1. 73 m?? [facility] Comment: The eGFR was calculated using the CKD-EPI equation. As with all creatinine based estimates of kidney function, eGFR values calculated with the CKD-EPI equation are not accurate in patients with acute kidney failure, extremes of body mass or the acutely ill. [email or web address] eGFR 107 >=60 mL/min/1. 73 m?? [facility] Comment: The eGFR was calculated using the CKD-EPI equation. As with all creatinine based estimates of kidney function, eGFR values calculated with the CKD-EPI equation are not accurate in patients with acute kidney failure, extremes of body mass or the acutely ill. [email or web address] Blood specimen (specimen) 02/20/2020 2:04 AM EDT 02/20/2020 2:10 AM EDT Narrative Resulting Agency Comment Spec In Lab Nima Armstrong MD CHEMISTRY ORDERABLES [facility] [place] [address] * (ABNORMAL) Hepatic Function Panel (02/20/2020 2:04 AM EDT) Protein, Total 3.8(L) 6.1 - 8.0 gm/dL [facility] Albumin 2.2(L) 3.2 - 5.2 gm/dL [facility] Aspartate Aminotransferase 32 0 - 39 unit/L [facility] Alanine Aminotransferase 39 0 - 55 unit/L [facility] Alkaline Phosphatase 100 40 - 130 unit/L [facility] Bilirubin, Total 0.2 0.2 - 1.3 mg/dL [facility] Bilirubin, Direct 0.1 0.0 - 0.3 mg/dL [facility] Blood specimen (specimen) 02/20/2020 2:04 AM EDT 02/20/2020 2:10 AM EDT Narrative Resulting Agency Comment Spec In Lab Nima Armstrong MD CHEMISTRY ORDERABLES Performing Organization Address [facility] Co de Phone Number [facility] [place] [address] * Phosphorus (02/20/2020 2:04 AM EDT) Phosphorus 2.8 2.5 - 4.5 mg/dL [facility] Blood specimen (specimen) 02/20/2020 2:04 AM EDT 02/20/2020 2:10 AM EDT Narrative Resulting Agency Comment Spec In Lab Nima Armstrong MD CHEMISTRY ORDERABLES Performing Organization Address [facility] de Phone Number [facility] [place] [address] * Magnesium (02/20/2020 2:04 AM EDT) Magnesium 0.77 0.69 - 1.07 mmol/L [facility] Blood specimen (specimen) 02/20/2020 2:04 AM EDT 02/20/2020 2:10 AM EDT Narrative Resulting Agency Comment Spec In Lab Nima Armstrong MD CHEMISTRY ORDERABLES Performing Organization Address [facility] de Phone Number [facility] [place] [address] * Shiga Toxin Detection (02/19/2020 3:14 PM EDT) Shiga Toxin Assay Test not performed due to no enteric growth. [facility] Stool specimen (specimen) 02/19/2020 3:14 PM EDT 02/19/2020 4:05 PM EDT Comment:NO PRECAUTIONS NEEDE D PER GI. Narrative Resulting Agency Comment Spec In Lab Roselia WHITFIELD MICROBIOLOGY - GENER AL ORDERABLES Performing Organization Address [facility] Co de Phone Number [facility] [place] [address] * (ABNORMAL) Campylobacter Antigen (02/19/2020 3:14 PM EDT) Pathologist [facility] Campylobacter Ag Immunoassay Positive for Campylobacter Antigen(A) [facility] Stool specimen (specimen) 02/19/2020 3:14 PM EDT 02/19/2020 4:05 PM EDT Comment:NO PRECAUTIONS NEEDE D PER GI. Narrative Resulting Agency Comment Spec In Lab Roselia WHITFIELD MICROBIOLOGY - GENER AL ORDERABLES Performing Organization Address [facility] Co de Phone Number [facility] [place] [address] * Stool culture (02/19/2020 3:14 PM EDT) [facility] Stool Culture No enteric pathogens isolated Reduced normal enteric sheri isolated [facility] Stool specimen (specimen) 02/19/2020 3:14 PM EDT 02/19/2020 4:04 PM EDT Comment:NO PRECAUTIONS NEEDE D PER GI. Narrative Resulting Agency Comment Spec In Lab Roselia WHITFIELD MICROBIOLOGY - GENER AL ORDERABLES Performing Organization Address [facility] Co de Phone Number [facility] [place] [address] * (ABNORMAL) Platelet count (02/19/2020 2:30 PM EDT) Pathologist [facility] Platelet 102(L) 145 - 357 x10(3)/mc L [facility] Immature Plt % 8.9(H) 0.0 - 7.4 % [facility] Comment: Limitation of the Immature Platelet Fraction (IPF)-May be less reliable when the platelet count is less than 56y014/uL due to statistical imprecision. The IPF value provides an assessment of the Bone Marrow production status. ??It is useful in differentiating Thrombocytopenia caused by platelet destruction/consumption versus decreased production. It also helps to determine the imminent release of platelets and can be therefore a helpful parameter in Chemotherapy and Bone marrow transplant patients. ELEVATED IPF value: ?? When the bone marrow is in a state of over production such as when increased destruction and consumption are the underlying issue. ?? When the marrow is recovering post chemotherapy or bone marrow transplant. LOW to NORMAL IPF value: ?? When the bone marrow in not responding and is in a decreased state of production. References: [employer] The Clinical Value of the Immature Platelet Fraction (IPF) in Cell Recovery Document Number [id number] 12/2010 [employer] The Role of the Immature Platelet Fraction (IPF) in the Differential Diagnosis of Thrombocytopenia, Document [id number] V011/20/13 P011/22 Blood specimen (specimen) 02/19/2020 2:30 PM EDT 02/19/2020 2:46 PM EDT Narrative Resulting Agency Comment Spec In Lab Nima Armstrong MD HEMATOLOGY ORDERABLE S Performing Organization Address [facility] Co de Phone Number [facility] [place] [address] * APTT (02/19/2020 2:30 PM EDT) Pathologist [facility] Partial Thromboplastin Time 28 25 - 37 sec [facility] Comment: The PTT is NOT appropriate for heparin monitoring. Use the Anti-Xa level for heparin monitoring (HEP UFH) or LMWH monitoring (HEP LMW). A PTT less than 37 seconds generally indicates adequate hemostasis. Blood specimen (specimen) 02/19/2020 2:30 PM EDT 02/19/2020 2:46 PM EDT Narrative Resulting Agency Comment Spec In Lab Nima Armstrong MD HEMATOLOGY ORDERABLE S Performing Organization Address [facility] Co de Phone Number [facility] [place] [address] * (ABNORMAL) Prothrombin Time (02/19/2020 2:30 PM EDT) Prothrombin Time 13.1(H) 9.4 - 12.5 sec [facility] International Normalization Ratio 1.1 [facility] Comment: An INR <2.0 indicates adequate procoagulant activity for hemostasis in most patients without underlying bleeding disorders, though the INR may not adequately reflect hemostatic capacity in patients with liver disease and synthetic impairment. The recommended target INR range for therapeutic anticoagulation is 2.0 ? 3.0 for most applications, though lower and higher ranges may be appropriate depending on clinical circumstances. Blood specimen (specimen) 02/19/2020 2:30 PM EDT 02/19/2020 2:46 PM EDT Narrative Resulting Agency Comment Spec In Lab Nima Armstrong MD HEMATOLOGY ORDERABLE S Performing Organization Address City/[facility]/ZIP Co de Phone Number [facility] [place] [address] * Transfuse 1 unit platelets, apheresis (02/19/2020 1:21 PM EDT) Nima Armstrong MD NURSING TREATMENT OR DERABLES - BLOOD ADMIN * Transfuse 1 unit platelets, apheresis (02/19/2020 1:21 PM EDT) Nima Armstrong MD NURSING TREATMENT OR DERABLES - BLOOD ADMIN * Prepare Platelets, Apheresis (02/19/2020 10:20 AM EDT) Dispensed? Yes [facility] Blood specimen (specimen) 02/19/2020 10:20 AM EDT 02/19/2020 10:16 AM EDT Nima Armstrong MD BLOOD BANK PRODUCT O RDERABLES Performing Organization Address City/[facility]/ZIP Co de Phone Number [facility] [place] [address] * (ABNORMAL) Differential, Automated (02/19/2020 8:00 AM EDT) Neutrophil % 73.6 % [facility] Neutrophil Absolute 7.33(H) 1.70 - 6.10 x10(3)/mc L [facility] Lymph % 11.0 % [facility] Lymphocytes Abs 1.1 0.9 - 3.2 x10(3)/[facility] LABORATORY Monocyte % 12.0 % [facility] Monocyte Abs 1.2(H) 0.3 - 0.9 x10(3)/ L [facility] Eos % 2.4 % [facility] Eosinophils Abs 0.2 0.0 - 0.4 x10(3)/[facility] Basophil % 0.4 % [facility] Baso Absolute 0.0 0.0 - 0.1 x10(3)/[facility] LABORATORY Immature Gran % 0.60 % [facility] Comment: Immature granulocytes(IG's)percentage and absolute count will include metamyelocytes, myelocytes, and promyelocytes. Blood smears from CBCs yielding IG's will be scanned manually for concordance. If this scan disagrees with the automated IG or if promyelocytes are noted, a manual differential will be performed. Immature Gran Absolute 0.06(H) 0.00 - 0.04 x10(3)/[facility] LAB[facility]ATORY Blood specimen (specimen) 02/19/2020 8:00 AM EDT 02/19/2020 8:29 AM EDT Narrative Resulting Agency Comment Spec In Lab Dariela Fitch MD HEMATOLOGY ORDERABLE S [facility] [place] [address] * (ABNORMAL) Hemogram (02/19/2020 8:00 AM EDT) White Blood Cell 10.0(H) 4.0 - 9.5 x10(3)/[facility] LAB[facility] Red Blood Cell 3.07(L) 4.58 - 5.54 x10(6)/[facility] Hemoglobin 9.7(L) 13.7 - 16.5 gm/dL [facility] Hematocrit 28.8(L) 40.5 - 48.5 % [facility] Mean Cell Volume 93.8(H) 82.9 - 93.1 fL [facility] Mean Cell Hemoglobin 31.6 27.5 - 32.1 pg [facility] Mean Cell Hemoglobin Concentration 33.7 32.0 - 35.7 gm/dL [facility] Platelet 64(L) 145 - 357 x10(3)/mc L [facility] RDW Standard Deviation 55.1(H) 36.0 - 45.0 fL [facility] RDW coefficient of variation 16.3(H) 11.4 - 13.8 % [facility] Mean Platelet Volume 12.0 7.6 - 12.9 [facility] LABORATORY NRBC% auto 0.0 % [facility] NRBC Absolute 0.000 0.000 - 0.000 x10(3)/mc L [facility] Blood specimen (specimen) 02/19/2020 8:00 AM EDT 02/19/2020 8:29 AM EDT Narrative Resulting Agency Comment Spec In Lab Dariela Fitch MD HEMATOLOGY ORDERABLE S [facility] [place] [address] * Lactate, whole blood, send to lab ([facility]) (02/18/2020 6:30 PM EDT) Lactate WB 1.0 0.5 - 2.2 mmol/L [facility] Blood specimen (specimen) 02/18/2020 6:30 PM EDT 02/18/2020 6:36 PM EDT Narrative Resulting Agency Comment Spec In Lab Nima Armstrong MD CHEMISTRY ORDERABLES [facility] [place] [address] * (ABNORMAL) Cryptosporidium Oocyst Antigen ([facility]P/APD) (02/18/2020 10:59 AM EDT) Cryptosporidium Antigen Positive( A) Negative [facility] Stool specimen (specimen) 02/18/2020 10:59 AM EDT 02/18/2020 12:59 PM EDT Narrative Resulting Agency Comment Spec In Lab Soniya Paulson MD MICROBIOLOGY - GENER AL ORDERABLES Performing Organization Address [facility] Co de Phone Number [facility] [place] [address] * Giardia antigen ([facility]P/APD) (02/18/2020 10:59 AM EDT) Giardia Antigen Negative Negative [facility] Comment:Examination for othe r intestinal parasites requires foreign travel history. Stool specimen (specimen) 02/18/2020 10:59 AM EDT 02/18/2020 12:59 PM EDT Narrative Resulting Agency Comment Spec In Lab Soniya Paulson MD MICROBIOLOGY - GENER AL ORDERABLES Performing Organization Address [facility] Co de Phone Number [facility] [place] [address] * Creatinine Level Body Fluid DARYN Drain (02/18/2020 10:59 AM EDT) Creatinine, Fluid 0.8 mg/dL [facility] Comment: No reference range is available for the specimen type submitted. ??The performance of this assay for the submitted type has not been validated and results should be interpreted accordingly and with regard to the patient's clinical status. Creat, Fld Type DARYN Drain [facility] DARYN Drain 02/18/2020 10:5 9 AM EDT 02/18/2020 11:36 AM EDT Narrative Resulting Agency Comment Spec In Lab Nima Armstrong MD BODY FLUIDS AND STOO LS ORDERABLES [facility] [place] [address] * (ABNORMAL) Basic Metabolic Panel (non-fasting) (02/18/2020 9:33 AM EDT) Glucose 113 65 - 199 mg/dL [facility] Comment:Diabetes: >=200 mg/d L plus symptoms Blood Urea Nitrogen 10 10 - 20 mg/dL [facility] Creatinine 0.82 0.80 - 1.50 mg/dL [facility] Sodium 139 135 - 145 mmol/L [facility] Potassium 3.6 3.5 - 5.0 mmol/L [facility] Comment: Please note: ??Patients with WBC >100,000 may have falsely elevated Potassium levels. ??For accurate Potassium quantification in these patients send serum separator tube (gold top) for subsequent determinations. ??Contact the Clinical Chemistry Laboratory if there are any questions. Chloride 109(H) 98 - 107 mmol/L [facility] Carbon Dioxide 23 22 - 31 mmol/L [facility] Anion Gap 7 5 - 15 mmol/L [facility] Calcium 7.4(L) 8.5 - 10.5 mg/dL [facility] Est Glomerular Filtration Rate 92 >=60 mL/min/1. 73 m?? [facility] Comment: The eGFR was calculated using the CKD-EPI equation. As with all creatinine based estimates of kidney function, eGFR values calculated with the CKD-EPI equation are not accurate in patients with acute kidney failure, extremes of body mass or the acutely ill. [email or web address] eGFR 106 >=60 mL/min/1. 73 m?? [facility] Comment: The eGFR was calculated using the CKD-EPI equation. As with all creatinine based estimates of kidney function, eGFR values calculated with the CKD-EPI equation are not accurate in patients with acute kidney failure, extremes of body mass or the acutely ill. [email or web address] Blood specimen (specimen) 02/18/2020 9:33 AM EDT 02/18/2020 9:39 AM EDT Narrative Resulting Agency Comment Spec In Lab Nima Armstrong MD CHEMISTRY ORDERABLES [facility] [place] [address] * (ABNORMAL) Differential, Automated (02/18/2020 8:05 AM EDT) Neutrophil % 68.1 % [facility] Neutrophil Absolute 5.21 1.70 - 6.10 x10(3)/ L [facility] Lymph % 14.8 % [facility] Lymphocytes Abs 1.1 0.9 - 3.2 x10(3)/[facility] LABORATORY Monocyte % 13.3 % [facility] Monocyte Abs 1.0(H) 0.3 - 0.9 x10(3)/[facility] LAB[facility]ORY Eos % 2.9 % [facility] Eosinophils Abs 0.2 0.0 - 0.4 x10(3)/[facility] Basophil % 0.4 % [facility] Baso Absolute 0.0 0.0 - 0.1 x10(3)/mc L [facility] Immature Gran % 0.50 % [facility] Comment: Immature granulocytes(IG's)percentage and absolute count will include metamyelocytes, myelocytes, and promyelocytes. Blood smears from CBCs yielding IG's will be scanned manually for concordance. If this scan disagrees with the automated IG or if promyelocytes are noted, a manual differential will be performed. Immature Gran Absolute 0.04 0.00 - 0.04 x10(3)/mc L [facility] Blood specimen (specimen) 02/18/2020 8:05 AM EDT 02/18/2020 8:33 AM EDT Narrative Resulting Agency Comment Spec In Lab Enrrique Patten MD HEMATOLOGY ORDERABLE S [facility] [place] [address] * (ABNORMAL) Hemogram (02/18/2020 8:05 AM EDT) White Blood Cell 7.6 4.0 - 9.5 x10(3)/mc L [facility] Red Blood Cell 3.05(L) 4.58 - 5.54 x10(6)/mc L [facility] Hemoglobin 9.6(L) 13.7 - 16.5 gm/dL [facility] Hematocrit 28.9(L) 40.5 - 48.5 % [facility] Mean Cell Volume 94.8(H) 82.9 - 93.1 fL [facility] Mean Cell Hemoglobin 31.5 27.5 - 32.1 pg [facility] Mean Cell Hemoglobin Concentration 33.2 32.0 - 35.7 gm/dL [facility] Platelet 78(L) 145 - 357 x10(3)/mc L [facility] RDW Standard Deviation 57.1(H) 36.0 - 45.0 fL [facility] RDW coefficient of variation 16.3(H) 11.4 - 13.8 % [facility] Mean Platelet Volume 11.1 7.6 - 12.9 fL [facility] NRBC% auto 0.0 % [facility] NRBC Absolute 0.000 0.000 - 0.000 x10(3)/mc L [facility] Blood specimen (specimen) 02/18/2020 8:05 AM EDT 02/18/2020 8:33 AM EDT Narrative Resulting Agency Comment Spec In Lab Enrrique Patten MD HEMATOLOGY ORDERABLE S [facility] [place] [address] * (ABNORMAL) Differential, Automated (02/17/2020 5:30 AM EDT) Neutrophil % 77.2 % [facility] Neutrophil Absolute 6.63(H) 1.70 - 6.10 x10(3)/ L [facility] Lymph % 9.4 % [facility] Lymphocytes Abs 0.8(L) 0.9 - 3.2 x10(3)/ L [facility] Monocyte % 12.3 % [facility] Monocyte Abs 1.1(H) 0.3 - 0.9 x10(3)/[facility] LABORATORY Eos % 0.2 % [facility] Eosinophils Abs 0.0 0.0 - 0.4 x10(3)/[facility] LABORATORY Basophil % 0.3 % [facility] Baso Absolute 0.0 0.0 - 0.1 x10(3)/[facility] LABORATORY Immature Gran % 0.60 % [facility] Comment: Immature granulocytes(IG's)percentage and absolute count will include metamyelocytes, myelocytes, and promyelocytes. Blood smears from CBCs yielding IG's will be scanned manually for concordance. If this scan disagrees with the automated IG or if promyelocytes are noted, a manual differential will be performed. Immature Gran Absolute 0.05(H) 0.00 - 0.04 x10(3)/ L [facility] Blood specimen (specimen) 02/17/2020 5:30 AM EDT 02/17/2020 5:58 AM EDT Narrative Resulting Agency Comment Spec In Lab La Jean-Baptiste MD HEMATOLOGY ORDERABLE S [facility] [place] [place] [address] * (ABNORMAL) Hemogram (02/17/2020 5:30 AM EDT) Pathologist [facility] White Blood Cell 8.6 4.0 - 9.5 x10(3)/mc L [facility] Red Blood Cell 3.09(L) 4.58 - 5.54 x10(6)/ L [facility] Hemoglobin 9.6(L) 13.7 - 16.5 gm/dL [facility] Hematocrit 28.3(L) 40.5 - 48.5 % [facility] Mean Cell Volume 91.6 82.9 - 93.1 fL [facility] Mean Cell Hemoglobin 31.1 27.5 - 32.1 pg [facility] Mean Cell Hemoglobin Concentration 33.9 32.0 - 35.7 gm/dL [facility] Platelet 86(L) 145 - 357 x10(3)/[facility] LABORATORY RDW Standard Deviation 54.6(H) 36.0 - 45.0 [facility] LABORATORY RDW coefficient of variation 16.4(H) 11.4 - 13.8 % [facility] Mean Platelet Volume 10.7 7.6 - 12.9 [facility] LABORATORY NRBC% auto 0.0 % [facility] NRBC Absolute 0.000 0.000 - 0.000 x10(3)/[facility] LABORATORY Blood specimen (specimen) 02/17/2020 5:30 AM EDT 02/17/2020 5:58 AM EDT Narrative Resulting Agency Comment Spec In Lab La Jean-Baptiste MD HEMATOLOGY ORDERABLE S [facility] [place] [place] [address] * (ABNORMAL) Basic Metabolic Panel (non-fasting) (02/17/2020 5:30 AM EDT) Glucose 115 65 - 199 mg/dL [facility] Comment:Diabetes: >=200 mg/d L plus symptoms Blood Urea Nitrogen 11 10 - 20 mg/dL [facility] Creatinine 0.78(L) 0.80 - 1.50 mg/dL [facility] Sodium 138 135 - 145 mmol/L [facility] Potassium 3.4(L) 3.5 - 5.0 mmol/L [facility] Comment: Please note: ??Patients with WBC >100,000 may have falsely elevated Potassium levels. ??For accurate Potassium quantification in these patients send serum separator tube (gold top) for subsequent determinations. ??Contact the Clinical Chemistry Laboratory if there are any questions. Chloride 109(H) 98 - 107 mmol/L [facility] Carbon Dioxide 22 22 - 31 mmol/L [facility] Anion Gap 7 5 - 15 mmol/L [facility] Calcium 6.8(Criti heath) 8.5 - 10.5 mg/dL [facility] Comment:Called by: laya, Read back by: Noah Gilbert, Date/Time:02/17/20 06:33. Est Glomerular Filtration Rate 93 >=60 mL/min/1. 73 m?? [facility] Comment: The eGFR was calculated using the CKD-EPI equation. As with all creatinine based estimates of kidney function, eGFR values calculated with the CKD-EPI equation are not accurate in patients with acute kidney failure, extremes of body mass or the acutely ill. [email or web address] eGFR 108 >=60 mL/min/1. 73 m?? [facility] Comment: The eGFR was calculated using the CKD-EPI equation. As with all creatinine based estimates of kidney function, eGFR values calculated with the CKD-EPI equation are not accurate in patients with acute kidney failure, extremes of body mass or the acutely ill. [email or web address] Blood specimen (specimen) 02/17/2020 5:30 AM EDT 02/17/2020 5:58 AM EDT Narrative Resulting Agency Comment Spec In Lab Nima Armstrong MD CHEMISTRY ORDERABLES [facility] [place] [place] [address] * C. Difficile Screen (02/16/2020 10:00 PM EDT) C Diff Interp Negative Negative [facility] Comment: Ag/Tox Neg C. diff?? Negative Clostridium difficile is not present in the specimen. If patient is having diarrhea suspected to be from an infectious cause, then Soap & Water Contact Precautions are still required. Stool specimen (specimen) 02/16/2020 10:00 PM EDT 02/16/2020 10:46 PM EDT Narrative Resulting Agency Comment Spec In Lab Nima Armstrong MD MICROBIOLOGY - GENER AL ORDERABLES [facility] [place] [address] * (ABNORMAL) Differential, Automated (02/16/2020 8:15 AM EDT) Neutrophil % 84.2 % [facility] Neutrophil Absolute 9.93(H) 1.70 - 6.10 x10(3)/mc L [facility] Lymph % 8.7 % [facility] Lymphocytes Abs 1.0 0.9 - 3.2 x10(3)/mc L [facility] Monocyte % 6.1 % [facility] Monocyte Abs 0.7 0.3 - 0.9 x10(3)/mc L [facility] Eos % 0.0 % [facility] Eosinophils Abs 0.0 0.0 - 0.4 x10(3)/mc L [facility] Basophil % 0.2 % [facility] Baso Absolute 0.0 0.0 - 0.1 x10(3)/mc L [facility] Immature Gran % 0.80 % [facility] Comment: Immature granulocytes(IG's)percentage and absolute count will include metamyelocytes, myelocytes, and promyelocytes. Blood smears from CBCs yielding IG's will be scanned manually for concordance. If this scan disagrees with the automated IG or if promyelocytes are noted, a manual differential will be performed. Immature Gran Absolute 0.09(H) 0.00 - 0.04 x10(3)/mc L [facility] Blood specimen (specimen) 02/16/2020 8:15 AM EDT 02/16/2020 8:30 AM EDT Narrative Resulting Agency Comment Spec In Lab La Jean-Baptiste MD HEMATOLOGY ORDERABLE S [facility] [place] [address] * (ABNORMAL) Hemogram (02/16/2020 8:15 AM EDT) White Blood Cell 11.8(H) 4.0 - 9.5 x10(3)/mc L [facility] Red Blood Cell 3.39(L) 4.58 - 5.54 x10(6)/mc L [facility] Hemoglobin 10.5(L) 13.7 - 16.5 gm/dL [facility] Hematocrit 30.6(L) 40.5 - 48.5 % [facility] Mean Cell Volume 90.3 82.9 - 93.1 fL [facility] Mean Cell Hemoglobin 31.0 27.5 - 32.1 pg [facility] Mean Cell Hemoglobin Concentration 34.3 32.0 - 35.7 gm/dL [facility] Platelet 95(L) 145 - 357 x10(3)/mc L [facility] RDW Standard Deviation 53.4(H) 36.0 - 45.0 fL [facility] RDW coefficient of variation 16.1(H) 11.4 - 13.8 % [facility] Mean Platelet Volume 12.0 7.6 - 12.9 fL [facility] NRBC% auto 0.0 % [facility] NRBC Absolute 0.000 0.000 - 0.000 x10(3)/mc L [facility] Blood specimen (specimen) 02/16/2020 8:15 AM EDT 02/16/2020 8:30 AM EDT Narrative Resulting Agency Comment Spec In Lab La Jean-Baptiste MD HEMATOLOGY ORDERABLE S [facility] [place] [place] [address] * (ABNORMAL) Basic Metabolic Panel (non-fasting) (02/16/2020 8:15 AM EDT) Glucose 153 65 - 199 mg/dL [facility] Comment:Diabetes: >=200 mg/d L plus symptoms Blood Urea Nitrogen 13 10 - 20 mg/dL [facility] Creatinine 0.90 0.80 - 1.50 mg/dL [facility] Sodium 138 135 - 145 mmol/L [facility] Potassium 3.5 3.5 - 5.0 mmol/L [facility] Comment: Please note: ??Patients with WBC >100,000 may have falsely elevated Potassium levels. ??For accurate Potassium quantification in these patients send serum separator tube (gold top) for subsequent determinations. ??Contact the Clinical Chemistry Laboratory if there are any questions. Chloride 106 98 - 107 mmol/L [facility] Carbon Dioxide 22 22 - 31 mmol/L [facility] Anion Gap 10 5 - 15 mmol/L [facility] Calcium 7.1(L) 8.5 - 10.5 mg/dL [facility] Est Glomerular Filtration Rate 88 >=60 mL/min/1. 73 m?? [facility] Comment: The eGFR was calculated using the CKD-EPI equation. As with all creatinine based estimates of kidney function, eGFR values calculated with the CKD-EPI equation are not accurate in patients with acute kidney failure, extremes of body mass or the acutely ill. [email or web address] eGFR 102 >=60 mL/min/1. 73 m?? [facility] Comment: The eGFR was calculated using the CKD-EPI equation. As with all creatinine based estimates of kidney function, eGFR values calculated with the CKD-EPI equation are not accurate in patients with acute kidney failure, extremes of body mass or the acutely ill. [email or web address] Blood specimen (specimen) 02/16/2020 8:15 AM EDT 02/16/2020 8:30 AM EDT Narrative Resulting Agency Comment Spec In Lab Nima Armstrong MD CHEMISTRY ORDERABLES [facility] [place] [place] [address] * (ABNORMAL) Hemogram (02/15/2020 6:05 PM EDT) White Blood Cell 9.1 4.0 - 9.5 x10(3)/mc L [facility] Red Blood Cell 3.28(L) 4.58 - 5.54 x10(6)/mc L [facility] Hemoglobin 10.3(L) 13.7 - 16.5 gm/dL [facility] Hematocrit 30.4(L) 40.5 - 48.5 % [facility] Mean Cell Volume 92.7 82.9 - 93.1 fL [facility] Mean Cell Hemoglobin 31.4 27.5 - 32.1 pg [facility] Mean Cell Hemoglobin Concentration 33.9 32.0 - 35.7 gm/dL [facility] Platelet 99(L) 145 - 357 x10(3)/mc L [facility] RDW Standard Deviation 53.1(H) 36.0 - 45.0 fL [facility] RDW coefficient of variation 15.6(H) 11.4 - 13.8 % [facility] Mean Platelet Volume 11.8 7.6 - 12.9 fL [facility] NRBC% auto 0.0 % [facility] NRBC Absolute 0.000 0.000 - 0.000 x10(3)/mc L [facility] Blood specimen (specimen) 02/15/2020 6:05 PM EDT 02/15/2020 6:21 PM EDT Narrative Resulting Agency Comment Spec In Lab Nima Armstrong MD HEMATOLOGY ORDERABLE S [facility] [place] [place] [address] * Transfuse RBC (02/15/2020 4:23 PM EDT) Nima Armstrong MD NURSING TREATMENT OR DERABLES - BLOOD ADMIN * Transfuse RBC (02/15/2020 4:23 PM EDT) Nima Armstrong MD NURSING TREATMENT OR DERABLES - BLOOD ADMIN * (ABNORMAL) Hemogram (02/15/2020 12:30 PM EDT) White Blood Cell 7.8 4.0 - 9.5 x10(3)/mc L [facility] Red Blood Cell 2.63(L) 4.58 - 5.54 x10(6)/mc L [facility] Hemoglobin 8.3(L) 13.7 - 16.5 gm/dL [facility] Hematocrit 24.4(L) 40.5 - 48.5 % [facility] Mean Cell Volume 92.8 82.9 - 93.1 fL [facility] Mean Cell Hemoglobin 31.6 27.5 - 32.1 pg [facility] Mean Cell Hemoglobin Concentration 34.0 32.0 - 35.7 gm/dL [facility] Platelet 99(L) 145 - 357 x10(3)/mc L [facility] RDW Standard Deviation 52.1(H) 36.0 - 45.0 fL [facility] RDW coefficient of variation 15.3(H) 11.4 - 13.8 % [facility] Mean Platelet Volume 11.6 7.6 - 12.9 fL [facility] NRBC% auto 0.0 % [facility] NRBC Absolute 0.000 0.000 - 0.000 x10(3)/mc L [facility] Blood specimen (specimen) 02/15/2020 12:30 PM EDT 02/15/2020 12:46 PM EDT Narrative Resulting Agency Comment Spec In Lab Nima Armstrong MD HEMATOLOGY ORDERABLE S Performing Organization Address [facility]/ZIP Co de Phone Number [facility] [place] [address] * Prepare RBC (02/15/2020 11:45 AM EDT) Dispensed? Yes [facility] Blood specimen (specimen) 02/15/2020 11:45 AM EDT 02/15/2020 11:44 AM EDT Nima Armstrong MD BLOOD BANK PRODUCT O RDERABLES Performing Organization Address [facility] Co de Phone Number [facility] [place] [address] * Transfuse RBC (02/15/2020 10:50 AM EDT) Nima Armstrong MD NURSING TREATMENT OR DERABLES - BLOOD ADMIN * Prepare RBC (02/15/2020 7:20 AM EDT) Dispensed? Yes [facility] Blood specimen (specimen) 02/15/2020 7:20 AM EDT 02/15/2020 7:17 AM EDT Nima Armstrong MD BLOOD BANK PRODUCT O RDERABLES Performing Organization Address [facility]/ZIP Co de Phone Number [facility] [place] [address] * (ABNORMAL) Hemogram (02/15/2020 5:45 AM EDT) White Blood Cell 6.4 4.0 - 9.5 x10(3)/mc L [facility] Red Blood Cell 2.00(L) 4.58 - 5.54 x10(6)/mc L [facility] Hemoglobin 6.3(L) 13.7 - 16.5 gm/dL [facility] Hematocrit 19.0(L) 40.5 - 48.5 % [facility] Mean Cell Volume 95.0(H) 82.9 - 93.1 fL [facility] Mean Cell Hemoglobin 31.5 27.5 - 32.1 pg [facility] Mean Cell Hemoglobin Concentration 33.2 32.0 - 35.7 gm/dL [facility] Platelet 94(L) 145 - 357 x10(3)/mc L [facility] RDW Standard Deviation 51.5(H) 36.0 - 45.0 fL [facility] RDW coefficient of variation 14.7(H) 11.4 - 13.8 % [facility] Mean Platelet Volume 11.9 7.6 - 12.9 fL [facility] NRBC% auto 0.0 % [facility] NRBC Absolute 0.000 0.000 - 0.000 x10(3)/mc L [facility] Blood specimen (specimen) 02/15/2020 5:45 AM EDT 02/15/2020 5:52 AM EDT Narrative Resulting Agency Comment Spec In Lab Nima Armstrong MD HEMATOLOGY ORDERABLE S [facility] [place] [address] * Scan, Peripheral Blood (02/15/2020 4:20 AM EDT) Plat estimate Decreased [facility] RBC Morphology Abnormal [facility] Macrocyte 1-5 /HPF [facility] Microcyte 1-5 /HPF [facility] Hypochromia Moderate [facility] Toxic Granulation Present [facility] Blood specimen (specimen) 02/15/2020 4:20 AM EDT 02/15/2020 4:37 AM EDT Narrative Resulting Agency Comment Spec In Lab Enrrique Patten MD HEMATOLOGY ORDERABLE S [facility] [place] [address] * Differential, Automated (02/15/2020 4:20 AM EDT) Neutrophil % 68.5 % [facility] Neutrophil Absolute 4.46 1.70 - 6.10 x10(3)/[facility] Lymph % 19.1 % [facility] Lymphocytes Abs 1.2 0.9 - 3.2 x10(3)/[facility] Monocyte % 8.5 % [facility] Monocyte Abs 0.6 0.3 - 0.9 x10(3)/[facility] Eos % 3.1 % [facility] Eosinophils Abs 0.2 0.0 - 0.4 x10(3)/[facility] Basophil % 0.3 % [facility] Baso Absolute 0.0 0.0 - 0.1 x10(3)/[facility] Immature Gran % 0.50 % [facility] Comment: Immature granulocytes(IG's)percentage and absolute count will include metamyelocytes, myelocytes, and promyelocytes. Blood smears from CBCs yielding IG's will be scanned manually for concordance. If this scan disagrees with the automated IG or if promyelocytes are noted, a manual differential will be performed. Immature Gran Absolute 0.03 0.00 - 0.04 x10(3)/[facility] Blood specimen (specimen) 02/15/2020 4:20 AM EDT 02/15/2020 4:37 AM EDT Narrative Resulting Agency Comment Spec In Lab Enrrique Patten MD HEMATOLOGY ORDERABLE S [facility] [place] [address] * (ABNORMAL) Hemogram (02/15/2020 4:20 AM EDT) White Blood Cell 6.5 4.0 - 9.5 x10(3)/mc L [facility] Red Blood Cell 2.03(L) 4.58 - 5.54 x10(6)/ L [facility] Hemoglobin 6.5(L) 13.7 - 16.5 gm/dL [facility] Hematocrit 19.4(L) 40.5 - 48.5 % [facility] Mean Cell Volume 95.6(H) 82.9 - 93.1 [facility] Mean Cell Hemoglobin 32.0 27.5 - 32.1 pg [facility] Mean Cell Hemoglobin Concentration 33.5 32.0 - 35.7 gm/dL [facility] Platelet 99(L) 145 - 357 x10(3)/ L [facility] RDW Standard Deviation 51.6(H) 36.0 - 45.0 [facility] RDW coefficient of variation 14.6(H) 11.4 - 13.8 % [facility] Mean Platelet Volume 11.9 7.6 - 12.9 [facility] NRBC% auto 0.0 % [facility] NRBC Absolute 0.000 0.000 - 0.000 x10(3)/[facility] Blood specimen (specimen) 02/15/2020 4:20 AM EDT 02/15/2020 4:37 AM EDT Narrative Resulting Agency Comment Spec In Lab Enrrique Patten MD HEMATOLOGY ORDERABLE S [facility] [place] [address] * (ABNORMAL) Basic Metabolic Panel (non-fasting) (02/15/2020 4:20 AM EDT) Glucose 104 65 - 199 mg/dL [facility] Comment:Diabetes: >=200 mg/d L plus symptoms Blood Urea Nitrogen 26(H) 10 - 20 mg/dL [facility] Creatinine 1.13 0.80 - 1.50 mg/dL [facility] Sodium 137 135 - 145 mmol/L [facility] Comment:result rechecked-KS Potassium 3.8 3.5 - 5.0 mmol/L [facility] Comment: result rechecked-KS Please note: ??Patients with WBC >100,000 may have falsely elevated Potassium levels. ??For accurate Potassium quantification in these patients send serum separator tube (gold top) for subsequent determinations. ??Contact the Clinical Chemistry Laboratory if there are any questions. Chloride 107 98 - 107 mmol/L [facility] Comment:result rechecked-KS Carbon Dioxide 23 22 - 31 mmol/L [facility] Anion Gap 7 5 - 15 mmol/L [facility] Calcium 7.0(L) 8.5 - 10.5 mg/dL [facility] Est Glomerular Filtration Rate 67 >=60 mL/min/1. 73 m?? [facility] Comment: The eGFR was calculated using the CKD-EPI equation. As with all creatinine based estimates of kidney function, eGFR values calculated with the CKD-EPI equation are not accurate in patients with acute kidney failure, extremes of body mass or the acutely ill. [email or web address] eGFR 78 >=60 mL/min/1. 73 m?? [facility] Comment: The eGFR was calculated using the CKD-EPI equation. As with all creatinine based estimates of kidney function, eGFR values calculated with the CKD-EPI equation are not accurate in patients with acute kidney failure, extremes of body mass or the acutely ill. [email or web address] Blood specimen (specimen) 02/15/2020 4:20 AM EDT 02/15/2020 4:37 AM EDT Narrative Resulting Agency Comment Spec In Lab Nima Armstrong MD CHEMISTRY ORDERABLES Performing Organization Address [facility]/State/ZIP Co de Phone Number [facility] [place] [address] * SCAN DOC: LAB (02/15/2020 12:00 AM EDT) Narrative 02/15/2020 12:00 AM EDT Ordered by an unspecified provider. Scanning Provider MEDIA MGR SCAN EXT O RDR/RSLT * KAMAR, legs, multiple levels (02/14/2020 12:28 PM EDT) VB Text Report Department: Vascular Surgery Lab Patient: [id number] (WALLY AGUILAR) CPT: 65407 ICD10: I70.211;I73.9; C79.89;C67.9 Referring Physician: NIMA ARMSTRONG ?? Indications: Patient with h/o right leg pain with walking, ? blood flow to feet Diabetes mellitus: No ICD10 Diagnosis Code: I73.9, I70.211, C79.89, C67.9 Findings: Right ?Pressure (mm Hg) ?? KAMAR ??Waveform ? Common Femoral Artery ?Monophasic ?? Popliteal Artery ? Monophasic ?? Dorsalis Pedis (Ankle) Artery ?31 ?0.36 ??Monophasic ?? Posterior Tibial (Ankle) Artery ??26 ?0.30 ??Monophasic ?? Left ? Pressure (mm Hg) ?? KAMAR ??Waveform ? Brachial Artery ?86 ? Common Femoral Artery ?[place] ?? Popliteal Artery ? [place] ?? Dorsalis Pedis (Ankle) Artery ?61 ?0.71 ??[place] ?? Posterior Tibial (Ankle) Artery ??73 ?0.85 ??[place] ?? Interpretation : RIGHT: Moderately severe lower extremity arterial occlusive disease. Findings are consistent with aortoiliac disease. LEFT: Mild lower extremity arterial occlusive disease. Findings are consistent with aortoiliac disease. Comment: The RIGHT brachial pressure was not obtained due to right arm IV's. Comparison: ??No previous study in our vascular lab database for comparison. Electronically Signed by: EDIE JEAN MD on 2020-02-14 03:45:55 PM [facility] VB Text Report End of Report [facility] 02/14/2020 12:2 8 PM EDT Nima Armstrong MD VASCULAR ORDERABLES [facility] * (ABNORMAL) Albumin Level (02/14/2020 1:50 AM EDT) Albumin 2.2(L) 3.2 - 5.2 gm/dL [facility] Blood specimen (specimen) 02/14/2020 1:50 AM EDT 02/14/2020 2:04 AM EDT Narrative Resulting Agency Comment Spec In Lab Nima Armstrong MD CHEMISTRY ORDERABLES Performing Organization Address City/[facility]/ZIP Co de Phone Number [facility] [place] [place] [address] * (ABNORMAL) Differential, Automated (02/14/2020 1:50 AM EDT) Neutrophil % 82.8 % [facility] Neutrophil Absolute 9.59(H) 1.70 - 6.10 x10(3)/mc L [facility] Lymph % 7.3 % [facility] Lymphocytes Abs 0.8(L) 0.9 - 3.2 x10(3)/ L [facility] Monocyte % 9.4 % [facility] Monocyte Abs 1.1(H) 0.3 - 0.9 x10(3)/ L [facility] Eos % 0.0 % [facility] Eosinophils Abs 0.0 0.0 - 0.4 x10(3)/ L [facility] Basophil % 0.2 % [facility] Baso Absolute 0.0 0.0 - 0.1 x10(3)/ L [facility] Immature Gran % 0.30 % [facility] Comment: Immature granulocytes(IG's)percentage and absolute count will include metamyelocytes, myelocytes, and promyelocytes. Blood smears from CBCs yielding IG's will be scanned manually for concordance. If this scan disagrees with the automated IG or if promyelocytes are noted, a manual differential will be performed. Immature Gran Absolute 0.04 0.00 - 0.04 x10(3)/ L [facility] Blood specimen (specimen) 02/14/2020 1:50 AM EDT 02/14/2020 1:56 AM EDT Narrative Resulting Agency Comment Spec In Lab Enrrique Patten MD HEMATOLOGY ORDERABLE S Performing Organization Address City/[facility]/ZIP Co de Phone Number [facility] [place] [address] * (ABNORMAL) Hemogram (02/14/2020 1:50 AM EDT) White Blood Cell 11.6(H) 4.0 - 9.5 x10(3)/mc L [facility] Red Blood Cell 2.47(L) 4.58 - 5.54 x10(6)/mc L [facility] Hemoglobin 8.0(L) 13.7 - 16.5 gm/dL [facility] Hematocrit 23.5(L) 40.5 - 48.5 % [facility] Mean Cell Volume 95.1(H) 82.9 - 93.1 fL [facility] Mean Cell Hemoglobin 32.4(H) 27.5 - 32.1 pg [facility] Mean Cell Hemoglobin Concentration 34.0 32.0 - 35.7 gm/dL [facility] Platelet 67(L) 145 - 357 x10(3)/mc L [facility] RDW Standard Deviation 51.4(H) 36.0 - 45.0 fL [facility] RDW coefficient of variation 14.6(H) 11.4 - 13.8 % [facility] Mean Platelet Volume 12.0 7.6 - 12.9 fL [facility] NRBC% auto 0.0 % [facility] NRBC Absolute 0.000 0.000 - 0.000 x10(3)/mc L [facility] Blood specimen (specimen) 02/14/2020 1:50 AM EDT 02/14/2020 1:56 AM EDT Narrative Resulting Agency Comment Spec In Lab Enrrique Patten MD HEMATOLOGY ORDERABLE S Performing Organization Address City/[facility]/ZIP Co de Phone Number [facility] [place] [place] [address] * (ABNORMAL) Basic Metabolic Panel (non-fasting) (02/14/2020 1:50 AM EDT) Glucose 142 65 - 199 mg/dL [facility] Comment:Diabetes: >=200 mg/d L plus symptoms Blood Urea Nitrogen 31(H) 10 - 20 mg/dL [facility] Creatinine 1.21 0.80 - 1.50 mg/dL [facility] Sodium 138 135 - 145 mmol/L [facility] Potassium 5.0 3.5 - 5.0 mmol/L [facility] Comment: Please note: ??Patients with WBC >100,000 may have falsely elevated Potassium levels. ??For accurate Potassium quantification in these patients send serum separator tube (gold top) for subsequent determinations. ??Contact the Clinical Chemistry Laboratory if there are any questions. Chloride 106 98 - 107 mmol/L [facility] Carbon Dioxide 22 22 - 31 mmol/L [facility] Anion Gap 10 5 - 15 mmol/L [facility] Calcium 7.3(L) 8.5 - 10.5 mg/dL [facility] Est Glomerular Filtration Rate 62 >=60 mL/min/1. 73 m?? [facility] Comment: The eGFR was calculated using the CKD-EPI equation. As with all creatinine based estimates of kidney function, eGFR values calculated with the CKD-EPI equation are not accurate in patients with acute kidney failure, extremes of body mass or the acutely ill. [email or web address] eGFR 71 >=60 mL/min/1. 73 m?? [facility] Comment: The eGFR was calculated using the CKD-EPI equation. As with all creatinine based estimates of kidney function, eGFR values calculated with the CKD-EPI equation are not accurate in patients with acute kidney failure, extremes of body mass or the acutely ill. [email or web address] Blood specimen (specimen) 02/14/2020 1:50 AM EDT 02/14/2020 1:56 AM EDT Narrative Resulting Agency Comment Spec In Lab Nima Armstrong MD CHEMISTRY ORDERABLES Performing Organization Address City/[facility]/ZIP Co de Phone Number [facility] [place] [address] * (ABNORMAL) Differential, Automated (02/13/2020 5:50 PM EDT) Neutrophil % 83.9 % [facility] Neutrophil Absolute 8.30(H) 1.70 - 6.10 x10(3)/mc L [facility] Lymph % 4.8 % [facility] Lymphocytes Abs 0.5(L) 0.9 - 3.2 x10(3)/ L [facility] Monocyte % 10.5 % [facility] Monocyte Abs 1.0(H) 0.3 - 0.9 x10(3)/mc L [facility] Eos % 0.0 % [facility] Eosinophils Abs 0.0 0.0 - 0.4 x10(3)/[facility] Basophil % 0.3 % [facility] Baso Absolute 0.0 0.0 - 0.1 x10(3)/ L [facility] Immature Gran % 0.50 % [facility] Comment: Immature granulocytes(IG's)percentage and absolute count will include metamyelocytes, myelocytes, and promyelocytes. Blood smears from CBCs yielding IG's will be scanned manually for concordance. If this scan disagrees with the automated IG or if promyelocytes are noted, a manual differential will be performed. Immature Gran Absolute 0.05(H) 0.00 - 0.04 x10(3)/mc L [facility] Blood specimen (specimen) 02/13/2020 5:50 PM EDT 02/13/2020 6:08 PM EDT Narrative Resulting Agency Comment Spec In Lab Enrrique Patten MD HEMATOLOGY ORDERABLE S Performing Organization Address City/[facility]/ZIP Co de Phone Number [facility] [place] [place] [address] * (ABNORMAL) Hemogram (02/13/2020 5:50 PM EDT) White Blood Cell 9.9(H) 4.0 - 9.5 x10(3)/mc L [facility] Red Blood Cell 2.60(L) 4.58 - 5.54 x10(6)/mc L [facility] Hemoglobin 8.5(L) 13.7 - 16.5 gm/dL [facility] Comment: This result has been called to CHANTALE CRUZ by Yeni Haji on 02 13 2020 at 1826, and has been read back. Hematocrit 24.9(L) 40.5 - 48.5 % [facility] Mean Cell Volume 95.8(H) 82.9 - 93.1 fL [facility] Mean Cell Hemoglobin 32.7(H) 27.5 - 32.1 pg [facility] Mean Cell Hemoglobin Concentration 34.1 32.0 - 35.7 gm/dL [facility] Platelet 73(L) 145 - 357 x10(3)/mc L [facility] RDW Standard Deviation 51.5(H) 36.0 - 45.0 fL [facility] RDW coefficient of variation 14.6(H) 11.4 - 13.8 % [facility] Mean Platelet Volume 12.0 7.6 - 12.9 fL [facility] NRBC% auto 0.0 % [facility] NRBC Absolute 0.000 0.000 - 0.000 x10(3)/mc L [facility] Blood specimen (specimen) 02/13/2020 5:50 PM EDT 02/13/2020 6:08 PM EDT Narrative Resulting Agency Comment Spec In Lab Enrrique Patten MD HEMATOLOGY ORDERABLE S [facility] [place] [address] * (ABNORMAL) Basic Metabolic Panel (non-fasting) (02/13/2020 5:50 PM EDT) Glucose 189 65 - 199 mg/dL [facility] Comment:Diabetes: >=200 mg/d L plus symptoms Blood Urea Nitrogen 32(H) 10 - 20 mg/dL [facility] Creatinine 1.11 0.80 - 1.50 mg/dL [facility] Sodium 138 135 - 145 mmol/L [facility] Potassium 4.9 3.5 - 5.0 mmol/L [facility] Comment: Please note: ??Patients with WBC >100,000 may have falsely elevated Potassium levels. ??For accurate Potassium quantification in these patients send serum separator tube (gold top) for subsequent determinations. ??Contact the Clinical Chemistry Laboratory if there are any questions. Chloride 106 98 - 107 mmol/L [facility] Carbon Dioxide 20(L) 22 - 31 mmol/L [facility] Anion Gap 12 5 - 15 mmol/L [facility] Calcium 6.9(Criti heath) 8.5 - 10.5 mg/dL [facility] Comment:Called by: veronica, Read back by: jemal ramirez_, Date/Time:02/13/20 18:45. Est Glomerular Filtration Rate 68 >=60 mL/min/1. 73 m?? [facility] Comment: The eGFR was calculated using the CKD-EPI equation. As with all creatinine based estimates of kidney function, eGFR values calculated with the CKD-EPI equation are not accurate in patients with acute kidney failure, extremes of body mass or the acutely ill. [email or web address] eGFR 79 >=60 mL/min/1. 73 m?? [facility] Comment: The eGFR was calculated using the CKD-EPI equation. As with all creatinine based estimates of kidney function, eGFR values calculated with the CKD-EPI equation are not accurate in patients with acute kidney failure, extremes of body mass or the acutely ill. [email or web address] Blood specimen (specimen) 02/13/2020 5:50 PM EDT 02/13/2020 6:08 PM EDT Narrative Resulting Agency Comment Spec In Lab Nima Armstrong MD CHEMISTRY ORDERABLES [facility] [place] [address] * (ABNORMAL) BLOOD GAS 2 ARTERIAL (02/13/2020 3:59 PM EDT) pH, Arterial 7.37 7.35 - 7.45 [facility] PCO2, Arterial 39 35 - 45 mmHg [facility] PO2, Arterial 227(H) 85 - 104 mmHg [facility] Bicarbonate, Arterial 22.2 20.0 - 26.0 mmol/L [facility] Base Excess, Arterial -3.0 -3.0 - 3.0 mmol/L [facility] Hgb Blood Gas 8.4(L) 13.7 - 16.5 gm/dL [facility] Oxyhemoglobin, Arterial 97.9(H) 94.0 - 97.0 % [facility] Carboxyhemoglob in, Arterial 0.9 % [facility] Comment: Nonsmokers: 0.5-1.5% COHB Smokers: Variable, but usually less than 10% Toxic: 20-30% COHB Lethal: Greater than 60% COHB Methemoglobin, Arterial 0.3 <=1.5 % [facility] Na Whole Blood 128(L) 135 - 145 mmol/L [facility] K Whole Blood 4.5 3.5 - 5.0 mmol/L [facility] Comment: Please note: Patients with WBC >100,000 may have falsely elevated Potassium levels. Contact the Clinical Chemistry Laboratory if there are any questions. ICa Whole Blood 1.07(L) 1.15 - 1.33 mmol/L [facility] Comment: Note: ??Total bilirubin higher than 20 mg/dL may lead to falsely low ionized calcium. CL Whole Blood 109(H) 98 - 107 mmol/L [facility] Gluc Whole Bld 172 65 - 199 mg/dL [facility] Comment:Diabetes: >=200 mg/d L plus symptoms. Lactate WB 1.7 0.5 - 2.2 mmol/L [facility] Blood specimen (specimen) 02/13/2020 3:59 PM EDT 02/13/2020 3:59 PM EDT Nima Armstrong MD POINT OF CARE TEST O RDCATE Performing Organization Address [facility] Co de Phone Number [facility] [place] [address] * Specimen to Pathology (02/13/2020 3:54 PM EDT) AP Specimen 02/13/2020 3:54 PM EDT 02/13/2020 3:54 PM EDT Narrative [facility] - 02/13/2020 3:54 PM EDT Specimen requisition ordered. ??Separate Pathology report to follow Nima Armstrong MD PATHOLOGY/CYTOLOGY O RDERABLES Performing Organization Address [facility]/ZIP Co de Phone Number [facility] [place] [place] [address] * Specimen to Pathology (02/13/2020 3:22 PM EDT) AP Specimen 02/13/2020 3:22 PM EDT 02/13/2020 3:22 PM EDT Narrative [facility] - 02/13/2020 3:22 PM EDT Specimen requisition ordered. ??Separate Pathology report to follow Nima Armstrong MD PATHOLOGY/CYTOLOGY O RDERABLES Performing Organization Address [facility] Co de Phone Number [facility] [place] [address] * (ABNORMAL) BLOOD GAS 2 ARTERIAL (02/13/2020 2:57 PM EDT) pH, Arterial 7.36 7.35 - 7.45 [facility] PCO2, Arterial 44 35 - 45 mmHg [facility] PO2, Arterial 231(H) 85 - 104 mmHg [facility] Bicarbonate, Arterial 24.1 20.0 - 26.0 mmol/L [facility] Base Excess, Arterial -1.4 -3.0 - 3.0 mmol/L [facility] Hgb Blood Gas 8.6(L) 13.7 - 16.5 gm/dL [facility] Oxyhemoglobin, Arterial 98.5(H) 94.0 - 97.0 % [facility] Carboxyhemoglob in, Arterial 0.6 % [facility] Comment: Nonsmokers: 0.5-1.5% COHB Smokers: Variable, but usually less than 10% Toxic: 20-30% COHB Lethal: Greater than 60% COHB Methemoglobin, Arterial 0.1 <=1.5 % [facility] Na Whole Blood 128(L) 135 - 145 mmol/L [facility] K Whole Blood 4.7 3.5 - 5.0 mmol/L [facility] Comment: Please note: Patients with WBC >100,000 may have falsely elevated Potassium levels. Contact the Clinical Chemistry Laboratory if there are any questions. ICa Whole Blood 1.02(L) 1.15 - 1.33 mmol/L [facility] Comment: Note: ??Total bilirubin higher than 20 mg/dL may lead to falsely low ionized calcium. CL Whole Blood 109(H) 98 - 107 mmol/L [facility] Gluc Whole Bld 169 65 - 199 mg/dL [facility] Comment:Diabetes: >=200 mg/d L plus symptoms. Lactate WB 1.7 0.5 - 2.2 mmol/L [facility] Blood specimen (specimen) 02/13/2020 2:57 PM EDT 02/13/2020 2:57 PM EDT Nima Armstrong MD POINT OF CARE TEST O RDERABLES [facility] [place] [place] [address] * Specimen to Pathology (02/13/2020 2:26 PM EDT) AP Specimen 02/13/2020 2:26 PM EDT 02/13/2020 2:48 PM EDT Narrative [facility] - 02/13/2020 2:49 PM EDT Specimen requisition ordered. ??Separate Pathology report to follow Resulting Agency Comment Spec In Lab Nima Armstrong MD PATHOLOGY/CYTOLOGY O ESCOBAR [facility] [place] [address] * Specimen to Pathology (02/13/2020 2:12 PM EDT) AP Specimen 02/13/2020 2:12 PM EDT 02/13/2020 2:48 PM EDT Narrative [facility] - 02/13/2020 2:49 PM EDT Specimen requisition ordered. ??Separate Pathology report to follow Resulting Agency Comment Spec In Lab Nima Armstrong MD PATHOLOGY/CYTOLOGY O ESCOBAR Performing Organization Address [facility] [place] [address] * (ABNORMAL) BLOOD GAS 2 ARTERIAL (02/13/2020 1:50 PM EDT) pH, Arterial 7.30(L) 7.35 - 7.45 [facility] PCO2, Arterial 45 35 - 45 mmHg [facility] PO2, Arterial 212(H) 85 - 104 mmHg [facility] Bicarbonate, Arterial 21.9 20.0 - 26.0 mmol/L [facility] Base Excess, Arterial -4.5(L) -3.0 - 3.0 mmol/L [facility] Hgb Blood Gas 9.0(L) 13.7 - 16.5 gm/dL [facility] Oxyhemoglobin, Arterial 98.2(H) 94.0 - 97.0 % [facility] Carboxyhemoglob in, Arterial 0.7 % [facility] Comment: Nonsmokers: 0.5-1.5% COHB Smokers: Variable, but usually less than 10% Toxic: 20-30% COHB Lethal: Greater than 60% COHB Methemoglobin, Arterial 0.3 <=1.5 % [facility] Na Whole Blood 129(L) 135 - 145 mmol/L [facility] K Whole Blood 4.6 3.5 - 5.0 mmol/L [facility] Comment: Please note: Patients with WBC >100,000 may have falsely elevated Potassium levels. Contact the Clinical Chemistry Laboratory if there are any questions. ICa Whole Blood 1.09(L) 1.15 - 1.33 mmol/L [facility] Comment: Note: ??Total bilirubin higher than 20 mg/dL may lead to falsely low ionized calcium. CL Whole Blood 109(H) 98 - 107 mmol/L [facility] Gluc Whole Bld 155 65 - 199 mg/dL [facility] Comment:Diabetes: >=200 mg/d L plus symptoms. Lactate WB 1.6 0.5 - 2.2 mmol/L [facility] FIO2 Art 50 % [facility] Flow Art 2.0 LPM [facility] PF Ratio Art 424 [facility] Temp Art 37.0 Celsius [facility] Blood specimen (specimen) 02/13/2020 1:50 PM EDT 02/13/2020 1:50 PM EDT Nima Armstrong MD POINT OF CARE TEST O RDERABLES [facility] [place] [address] * Specimen to Pathology (02/13/2020 1:35 PM EDT) AP Specimen 02/13/2020 1:35 PM EDT 02/13/2020 2:49 PM EDT Narrative [facility] - 02/13/2020 2:49 PM EDT Specimen requisition ordered. ??Separate Pathology report to follow Resulting Agency Comment Spec In Lab Nima Armstrong MD PATHOLOGY/CYTOLOGY O ESCOBAR Performing Organization Address City/[facility]/[place] [address] * Specimen to Pathology (02/13/2020 1:29 PM EDT) AP Specimen 02/13/2020 1:29 PM EDT 02/13/2020 2:48 PM EDT Narrative [facility] - 02/13/2020 2:49 PM EDT Specimen requisition ordered. ??Separate Pathology report to follow Resulting Agency Comment Spec In Lab Nima Armstrong MD PATHOLOGY/CYTOLOGY O ESCOBAR Performing Organization Address [facility]/[place] [address] * Specimen to Pathology (02/13/2020 1:20 PM EDT) AP Specimen 02/13/2020 1:20 PM EDT 02/13/2020 1:20 PM EDT Narrative [facility] - 02/13/2020 1:20 PM EDT Specimen requisition ordered. ??Separate Pathology report to follow Nima Armstrong MD PATHOLOGY/CYTOLOGY O ESCOBAR Performing Organization Address City/[facility]/[place] [address] * Specimen to Pathology (02/13/2020 1:15 PM EDT) AP Specimen 02/13/2020 1:15 PM EDT 02/13/2020 1:15 PM EDT Narrative [facility] - 02/13/2020 1:15 PM EDT Specimen requisition ordered. ??Separate Pathology report to follow Nima Armstrong MD PATHOLOGY/[place] [address] * Specimen to Pathology (02/13/2020 12:57 PM EDT) AP Specimen 02/13/2020 12:5 7 PM EDT 02/13/2020 12:57 PM EDT Narrative [facility] - 02/13/2020 12:57 PM EDT Specimen requisition ordered. ??Separate Pathology report to follow Nima Armstrong MD PATHOLOGY/CYTOLOGY O ESCOBAR [facility] [place] [place] [address] * (ABNORMAL) BLOOD GAS 2 ARTERIAL (02/13/2020 12:44 PM EDT) pH, Arterial 7.25(Criti heath) 7.35 - 7.45 [facility] Comment:Noted by instrument checker. PCO2, Arterial 47(H) 35 - 45 mmHg [facility] PO2, Arterial 216(H) 85 - 104 mmHg [facility] Bicarbonate, Arterial 20.0 20.0 - 26.0 mmol/L [facility] Base Excess, Arterial -7.3(L) -3.0 - 3.0 mmol/L [facility] Hgb Blood Gas 10.1(L) 13.7 - 16.5 gm/dL [facility] Oxyhemoglobin, Arterial 98.4(H) 94.0 - 97.0 % [facility] Carboxyhemoglob in, Arterial 0.4 % [facility] Comment: Nonsmokers: 0.5-1.5% COHB Smokers: Variable, but usually less than 10% Toxic: 20-30% COHB Lethal: Greater than 60% COHB Methemoglobin, Arterial 0.3 <=1.5 % [facility] Na Whole Blood 128(L) 135 - 145 mmol/L [facility] K Whole Blood 4.7 3.5 - 5.0 mmol/L [facility] Comment: Please note: Patients with WBC >100,000 may have falsely elevated Potassium levels. Contact the Clinical Chemistry Laboratory if there are any questions. ICa Whole Blood 1.11(L) 1.15 - 1.33 mmol/L [facility] Comment: Note: ??Total bilirubin higher than 20 mg/dL may lead to falsely low ionized calcium. CL Whole Blood 108(H) 98 - 107 mmol/L [facility] Gluc Whole Bld 138 65 - 199 mg/dL [facility] Comment:Diabetes: >=200 mg/d L plus symptoms. Lactate WB 2.2 0.5 - 2.2 mmol/L [facility] FIO2 Art 50 % [facility] PF Ratio Art 432 [facility] Blood specimen (specimen) 02/13/2020 12:44 PM EDT 02/13/2020 12:44 PM EDT Nima Armstrong MD POINT OF CARE TEST O ESCOBAR Performing Organization Address [facility] Co de Phone Number [facility] [place] [address] * Specimen to Pathology (02/13/2020 11:56 AM EDT) AP Specimen 02/13/2020 11:5 6 AM EDT 02/13/2020 11:56 AM EDT Narrative [facility] - 02/13/2020 11:56 AM EDT Specimen requisition ordered. ??Separate Pathology report to follow Nima Armstrong MD PATHOLOGY/CYTOLOGY O ESCOBAR Performing Organization Address [facility] Co de Phone Number [facility] [place] [address] * Specimen to Pathology (02/13/2020 11:21 AM EDT) AP Specimen 02/13/2020 11:2 1 AM EDT 02/13/2020 11:21 AM EDT Narrative [facility] - 02/13/2020 11:21 AM EDT Specimen requisition ordered. ??Separate Pathology report to follow Nima Armstrong MD PATHOLOGY/CYTOLOGY O RDERABLES [facility] [place] [address] * Surgical Pathology Report (02/13/2020 10:31 AM EDT) Final Diagnosis [id number] ? Location: 2WST; 0206; A The signing pathologist has (i) examined the relevant preparation(s) for the specimen(s) and (ii) rendered or confirmed the diagnosis(es). . ?Surgical Pathology DIAGNOSIS A - Liver mass, excision: Subcapsular liver with a benign fibrotic and calcified nodule. Trichrome highlights the fibrotic nodule and mild portal fibrosis. Iron stain shows marked granular iron deposition in hepatocytes (score 3 out of 4). B - Left distal ureter blue opposite margin, excision: Segment of ureter lined with ?? urothelium with mild atypia. No invasive carcinoma is seen. C - Right distal ureter blue opposite margin, excision: Segment of ureter lined with ?? urothelium with atypia. No invasive carcinoma is seen. D - Bladder and prostate, excision: Residual invasive urothelial carcinoma, [id number], see synoptic report. One lymph node in pericystic soft tissue, negative for carcinoma (0/1). Benign prostate with glandular and stromal hyperplasia and focal acute inflammation E - Left common and external lymph nodes, excision: Eight lymph nodes, negative for carcinoma (0/8). F - Left internal iliac lymph nodes, excision: One lymph node, negative for carcinoma (0/1). G - Additional left internal iliac and obturator lymph nodes, excision: Two lymph nodes, negative for carcinoma (0/2). H - Pre-sacral lymph nodes, excision: Seven lymph nodes, negative for carcinoma (0/7). I - Right common and external lymph nodes, excision: Six lymph nodes, negative for carcinoma (0/6). J - Right obturator lymph nodes, excision: One lymph node, negative for carcinoma (0/1). K - Additional left ureter, excision: Segment of ureter lined with benign ?? urothelium . L - Additional right ureter, excision: Segment of ureter lined with benign ?? urothelium . Electronically signed by: ??Kalani Cabrera MD Verified: ??02/27/2020 ?Pathologist Performed at: ??-[facility] Dept. of Pathology, [place], [place] SYNOPTIC Specimen Parts: ??A to L Specimen ? Procedure: ??Radical cystoprostatectomy Tumor ? Tumor Site: ??Left lateral wall; ??left ureteral orifice ? Histologic Type: ??Urothelial carcinoma invasive . SYNOPTIC ? Histologic Grade: ??High-grade ? Tumor Size: ??2.4 Centimeters (cm) ? Tumor Extension: ??Tumor invades perivesical soft tissue - Microscopically ? Lymphovascular Invasion: ??Cannot be determined - Suspicious ? Tumor Configuration: ??Solid / nodule Margins ? Margins: ??Uninvolved by invasive carcinoma and carcinoma in situ / ?noninvasive urothelial carcinoma Lymph Nodes ? Number of Lymph Nodes Involved: ??0 ? Number of Lymph Nodes Examined: ??26 Pathologic Stage Classification (pTNM, AJCC 8th Edition) ? TNM Descriptors: ??y (post-treatment) ? Primary Tumor (pT): ??pT3a Additional Findings ? Additional Findings: ??Therapy-related changes - fibrosis and focal chronic ?inflammation in the bladder wall; ??Benign prostate with glandular and ?stromal hyperplasia and focal acute inflammation Tumor Block(s): ??D4, D6, D8, D9, D11 Normal Block(s): ??D17, D18 CAP eCC August 2019 Annual Release ADDITIONAL STUDIES Whole slide scan: [id number] [id number],4,5 [id number] D4, D6, D8, D9, D11 SPECIMEN(S) SUBMITTED A - LIVER MASS, excision (1) B - LEFT DISTAL URETER BLUE OPPOSITE MARGIN, excision (1) C - RIGHT DISTAL URETER BLUE OPPOSITE MARGIN, excision (1) ?for frozen section D - Bladder and Prostate, excision (1) E - Left Common and External Lymph Nodes, excision (1) F - Left Internal Iliac Lymph Nodes, excision (1) G - ADDITIONAL LEFT INTERNAL ILIAC AND OBTURATOR LYMPH NODES, excision (1) H - PRE-SACRAL LYMPH NODES, excision (1) I - RIGHT COMMON AND EXTERNAL LYMPH NODES, excision (1) J - RIGHT OBTURATOR LYMPH NODES, excision (1) K - ADDITIONAL LEFT URETER, excision (1) L - ADDITIONAL RIGHT URETER, excision (1) CLINICAL INFORMATION Bladder cancer SPECIMEN PROCESSING A - Labeled/Fixative: Liver mass, fresh. Quantity/Size: Single, 1.2 x 0.8 x 0.6 cm. Tissue Description: Received is a wedge of noyola-brown soft tissue that contains a 0.3 x 0.3 irregular white mass. The specimen is bisected, and the cut surface demonstrates dense calcifications comprising the mass. Sections/Processing: The following tissue is submitted for frozen section: AFS1 - liver mass, entirely submitted. Entirely submitted in 1 cassettes as follows: ?A1: ??AFS1, residual tissue B - Labeled/Fixative: Left distal ureter blue opposite margin, fresh. Quantity/Size: Single, 0.8 x 0.6 x 0.5 cm. Tissue Description: Segment of noyola-pink ureter with adherent periureteral fat. Sections/Processing: The following tissue is submitted for frozen section: BFS1 - left distal ureter, entirely submitted. Entirely submitted in 1 cassettes as follows: . SPECIMEN PROCESSING ?B1: ??BFS1, residual tissue C - Labeled/Fixative: Right distal ureter blue opposite margin, fresh. Quantity/Size: Single, 0.9 x 0.5 x 0.4 cm. Tissue Description: Segment of noyola-pink ureter with adherent periureteral fat. Sections/Processing: The following tissue is submitted for frozen section: CFS1 - right distal ureter, entirely submitted. Entirely submitted in 1 cassettes as follows: ?C1: ??CFS1, residual tissue D - Labeled/Fixative: Bladder and prostate, fresh. Quantity/Size: , 15.5 x 11.8 x 3.8 cm (overall). SPECIMEN DESCRIPTION Resection Specimen: Intact, Cystoprostatectomy LESION Description: Goldsby-red, firm, rubbery, tumor bed, consisting of a area of retraction along the left bladder wall involving the left ureteral orifice. The left ureteral orifice is polypoid and bright red, measuring 0.5 x 0.4 cm. Size: 2.4 x 2.0 cm. Location: Left bladder wall, involving the left ureteral orifice. Depth of invasion: Tumor invades muscularis propria. BLADDER Size: 5.3 x 3.3 x 2.5 cm. Surface: Smooth, glistening. Mucosa: Goldsby white, rugated. Wall: Ranging from 0.6-1.1 cm in thickness. Margins: 0.9 cm to left-posterior perivesical margin Left Ureter: 2.3 cm, patent, uninvolved. Right Ureter: 2.1 cm, patent. Urethra: 2.9 cm, smooth, pink-white, without lesions. PROSTATE Specimen Description: Vaguely nodular and roughly symmetric. DIMENSIONS [place] to base: 3.4 cm. Transverse: 3.8 cm. Anterior to posterior: 3.6 cm. Rt Seminal Vesicle: 3.5 x 2.4 cm. Lt Seminal Vesicle: 3.9 x 2.0 cm. Rt Vas Deferens: 4.6 x 0.7 cm. Lt Vas Deferens: 5.3 x 0.5 cm. Outer Surface: Rough, ragged. Cut Surface: Noyola-white, fleshy, homogenous. The right half of the specimen is inked with Lalitha ink and the left half with yellow ink. ??The prostate is serially sectioned from apex to base. Sections/Processing: Steel Melter sections in 29 cassettes as follows: ?D1: ??Distal prostatic urethral margin, en face ?D2: ??Right ureter margin, en face ?D3: ??Left ureter margin, en face ?D4-D16: ??Tumor bed, including left ureteral orifice lesion, entirely submitted ? (D4-D5, D6-D7, D9-D10, D11-D12, D13-D14, and D15-D16: bisected full-thickness ? sections) ?D17: ??Right bladder wall, including right ureteral orifice, authorization representative ?D18: ??Anterior bladder wall, authorization representative ?D19: ??Posterior bladder wall, authorization representative ?D20: ??Dome, authorization representative ?D21: ??Trigone, authorization representative ?D22: ??Prostate, left apex, authorization representative . SPECIMEN PROCESSING ?D23: ??Prostate, right apex, authorization representative ?D24: ??Prostate, left mid, authorization representative ?D25: ??Prostate, right mid, authorization representative ?D26: ??Prostate, left base, authorization representative ?D27: ??Prostate, right base, authorization representative ?D28: ??Left seminal vesicle and vas deferens, authorization representative ?D29: ??Right seminal vesicle and vas deferens, authorization representative E - Labeled/Fixative: Left common and external lymph nodes, fresh. Quantity/Size: Multiple, 7.7 x 4.0 x 1.6 cm in aggregate. Tissue Description: Adipose tissue with eight lymph nodes, up to 4.8 cm in greatest dimension. Sections/Processing: Steel Melter sections in 16 cassettes as follows: ?E1: ??Three candidate lymph nodes ?E2: ??One lymph node, quadrisected ?E3-E4: ??One lymph node, serially sectioned ?E5-E6: ??One lymph node, serially sectioned ?E7-E11: ??One lymph node, serially sectioned ?E12-E16: ??One lymph node, serially sectioned F - Labeled/Fixative: Left internal iliac lymph nodes, fresh. Quantity/Size: Single, 3.5 x 1.7 x 1.0 cm. Tissue Description: Adipose tissue with one lymph node, up to 3.0 cm in greatest dimension. Sections/Processing: Steel Melter sections in 3 cassettes as follows: ?F1-F3: ??One lymph node, serially sectioned G - Labeled/Fixative: Additional left internal iliac and obturator lymph nodes, fresh. Quantity/Size: Multiple, 5.3 x 2.5 x 1.5 cm in aggregate. Tissue Description: Adipose tissue with two lymph nodes, up to 2.6 cm in greatest dimension. Sections/Processing: Steel Melter sections in 3 cassettes as follows: ?G1: ??One lymph node, serially sectioned ?G2-G3: ??One lymph node, serially sectioned H - Labeled/Fixative: Presacral lymph nodes, fresh. Quantity/Size: Multiple, 7.5 x 4.0 x 1.3 cm in aggregate. Tissue Description: Adipose tissue with seven lymph nodes, up to 4.1 cm in greatest dimension. Sections/Processing: Steel Melter sections in 12 cassettes as follows: ?H1: ??One lymph node, trisected ?H2: ??Two candidate lymph nodes ?H3: ??One lymph node, quadrisected ?H4-H5: ??One lymph node, serially sectioned ?H6-H8: ??One lymph node, serially sectioned ?H9-H12: ??One lymph node, serially sectioned I - Labeled/Fixative: Right common and external lymph nodes, fresh. Quantity/Size: Multiple, 5.1 x 3.4 x 1.5 cm in aggregate. Tissue Description: Adipose tissue with six lymph nodes, up to 5.2 cm in greatest dimension. Sections/Processing: Steel Melter sections in 9 cassettes as follows: ?I1: ??Two lymph nodes ?I2: ??Two lymph nodes ?I3-I4: ??One lymph node, serially sectioned ?I5-I9: ??One lymph node, serially sectioned . SPECIMEN PROCESSING J - Labeled/Fixative: Right obturator lymph nodes, fresh. Quantity/Size: Multiple, 5.2 x 3.2 x 1.7 cm in aggregate. Tissue Description: Adipose tissue with one lymph node, up to 4.9 cm in greatest dimension. Sections/Processing: Steel Melter sections in 4 cassettes as follows: ?J1-J4: ??One lymph node, serially sectioned K - Labeled/Fixative: Additional left ureter, fresh. Quantity/Size: Single, 6.1 x 1.7 cm. Tissue Description: Unorientated segment of noyola-pink ureter with adherent periureteral fat. One end of the specimen is marked with a suture, and is designated terminal margin 1 by the prosector. The specimen is serially sectioned to reveal unremarkable pink-white mucosa. Sections/Processing: Steel Melter sections in 3 cassettes as follows: ?K1: ??Terminal margin 1 (with suture) ?K2: ??Terminal margin 2 ?K3: ??Steel Melter central ureter L - Labeled/Fixative: Additional right ureter, fresh. Quantity/Size: Single, 6.1 x 0.8 cm. Tissue Description: Unorientated segment of noyola-pink ureter with scant adherent periureteral fat. One end of the specimen is marked with the suture, and is designated terminal margin 1 by the prosector. The specimen is serially sectioned to reveal unremarkable pink-white mucosa. Sections/Processing: Steel Melter sections in 3 cassettes as follows: ?L1: ??Terminal margin 1 (with suture) ?L2: ??Terminal margin 2 ?L3: ??Steel Melter central ureter ??ERJG ?Frozen Section FROZEN SECTION DIAGNOSIS CFS - Right distal ureter: ?Urothelial atypia; deeper levels ?were obtained. - [facility] 02/13/20 12:33 Electronically signed by: ??Trae Hoang MD Verified: ??02/13/2020 ?Pathologist Performed at: ??-[facility] Dept. of Pathology, [place], [place] This intraoperative consultation should be interpreted as a preliminary diagnosis pending review of the entire specimen and special studies, if any. ?Frozen Section FROZEN SECTION DIAGNOSIS BFS - Left distal ureter: ?Urothelial atypia, cannot exclude ?dysplasia. - [facility] 02/13/20 11:43 Electronically signed by: ??Trae Hoang MD Verified: ??02/13/2020 ?Pathologist Performed at: ??-[facility] Dept. of [place]ology, [place], [place] This intraoperative consultation should be interpreted as a preliminary diagnosis pending review of the entire specimen and special studies, if any. ?Frozen Section FROZEN SECTION DIAGNOSIS - AFS1 Liver mass: ?Calcified nodule, negative for cancer . FROZEN SECTION DIAGNOSIS 02/13/20 11:07 Electronically signed by: ??Guero Faye MD Verified: ??02/13/2020 ?Pathologist Performed at: ??-[facility] Dept. of Pathology, [place], [place] This intraoperative consultation should be interpreted as a preliminary diagnosis pending review of the entire specimen and special studies, if any. 02/27/2020 3:40 PM EDT [facility] URETERIC STRUCTURE / Unknown 02/13/2020 10:31 AM EDT 02/13/2020 10:31 AM EDT URETERIC STRUCTURE / Unknown 02/13/2020 10:31 AM EDT 02/13/2020 10:31 AM EDT URETERIC STRUCTURE / Unknown 02/13/2020 10:31 AM EDT 02/13/2020 10:31 AM EDT URINARY BLADDER STRUCTURE / Unknown 02/13/2020 10:31 AM EDT 02/13/2020 10:31 AM EDT LYMPH NODE SPECIMEN / Unknown 02/13/2020 10:31 AM EDT 02/13/2020 10:31 AM EDT LYMPH NODE SPECIMEN / Unknown 02/13/2020 10:31 AM EDT 02/13/2020 10:31 AM EDT LYMPH NODE SPECIMEN / Unknown 02/13/2020 10:31 AM EDT 02/13/2020 10:31 AM EDT LYMPH NODE SPECIMEN / Unknown 02/13/2020 10:31 AM EDT 02/13/2020 10:31 AM EDT LYMPH NODE SPECIMEN / Unknown 02/13/2020 10:31 AM EDT 02/13/2020 10:31 AM EDT LYMPH NODE SPECIMEN / Unknown 02/13/2020 10:31 AM EDT 02/13/2020 10:31 AM EDT URETERIC STRUCTURE / Unknown 02/13/2020 10:31 AM EDT 02/13/2020 10:31 AM EDT URETERIC STRUCTURE / Unknown 02/13/2020 10:31 AM EDT 02/13/2020 10:31 AM EDT Nima Armstrong MD PATHOLOGY/CYTOLOGY O RDCATE Performing Organization Address City/[facility]/[place] [address] * Specimen to Pathology (02/13/2020 10:31 AM EDT) AP Specimen 02/13/2020 10:3 1 AM EDT 02/13/2020 10:31 AM EDT Narrative [facility] - 02/13/2020 10:31 AM EDT Specimen requisition ordered. ??Separate Pathology report to follow Nima Armstrong MD PATHOLOGY/CYTOLOGY O RDCATE Performing Organization Address [facility] [place] [address] * (ABNORMAL) BLOOD GAS 2 ARTERIAL (02/13/2020 10:06 AM EDT) pH, Arterial 7.34(L) 7.35 - 7.45 [facility] PCO2, Arterial 38 35 - 45 mmHg [facility] PO2, Arterial 243(H) 85 - 104 mmHg [facility] Bicarbonate, Arterial 20.9 20.0 - 26.0 mmol/L [facility] Base Excess, Arterial -5.1(L) -3.0 - 3.0 mmol/L [facility] Hgb Blood Gas 13.3(L) 13.7 - 16.5 gm/dL [facility] Oxyhemoglobin, Arterial 98.5(H) 94.0 - 97.0 % [facility] Carboxyhemoglob in, Arterial 0.7 % [facility] Comment: Nonsmokers: 0.5-1.5% COHB Smokers: Variable, but usually less than 10% Toxic: 20-30% COHB Lethal: Greater than 60% COHB Methemoglobin, Arterial 0.2 <=1.5 % [facility] Na Whole Blood 131(L) 135 - 145 mmol/L [facility] K Whole Blood 4.2 3.5 - 5.0 mmol/L [facility] Comment: Please note: Patients with WBC >100,000 may have falsely elevated Potassium levels. Contact the Clinical Chemistry Laboratory if there are any questions. ICa Whole Blood 1.13(L) 1.15 - 1.33 mmol/L [facility] Comment: Note: ??Total bilirubin higher than 20 mg/dL may lead to falsely low ionized calcium. CL Whole Blood 109(H) 98 - 107 mmol/L [facility] Gluc Whole Bld 135 65 - 199 mg/dL [facility] Comment:Diabetes: >=200 mg/d L plus symptoms. Lactate WB 1.3 0.5 - 2.2 mmol/L [facility] FIO2 Art 60 % [facility] Flow Art 1.0 LPM [facility] PF Ratio Art 405 [facility] Temp Art 35.5 Celsius [facility] Blood specimen (specimen) 02/13/2020 10:06 AM EDT 02/13/2020 10:06 AM EDT Nima Armstrong MD POINT OF CARE TEST O RDERABLES Performing Organization Address [facility] Co de Phone Number [facility] [place] [address] * XR Fluoro No Rad <1Hr - OR Use (02/13/2020 8:57 AM EDT) Narrative RAD - 02/13/2020 8:58 AM EDT This exam is auto-finalizing. No interpretation was done. Nima Bhatia MD IMG FLUORO ORDERABLE S Performing Organization Address [facility] Co de Phone Number [place], [place] * Scan, Peripheral Blood (02/13/2020 7:05 AM EDT) Plat estimate Decreased [facility] RBC Morphology Normal [facility] Blood specimen (specimen) 02/13/2020 7:05 AM EDT 02/13/2020 7:21 AM EDT Narrative Resulting Agency Comment Spec In Lab Ori Bashir MD HEMATOLOGY ORDERABLE S Performing Organization Address City/[facility]/ZIP Co de Phone Number [facility] [place] [address] * Differential, Automated (02/13/2020 7:05 AM EDT) Neutrophil % 55.9 % [facility] Neutrophil Absolute 2.73 1.70 - 6.10 x10(3)/[facility] Lymph % 19.7 % [facility] Lymphocytes Abs 1.0 0.9 - 3.2 x10(3)/[facility] Monocyte % 16.8 % [facility] Monocyte Abs 0.8 0.3 - 0.9 x10(3)/[facility] Eos % 6.4 % [facility] Eosinophils Abs 0.3 0.0 - 0.4 x10(3)/[facility] Basophil % 1.0 % [facility] Baso Absolute 0.0 0.0 - 0.1 x10(3)/[facility] Immature Gran % 0.20 % [facility] Comment: Immature granulocytes(IG's)percentage and absolute count will include metamyelocytes, myelocytes, and promyelocytes. Blood smears from CBCs yielding IG's will be scanned manually for concordance. If this scan disagrees with the automated IG or if promyelocytes are noted, a manual differential will be performed. Immature Gran Absolute 0.01 0.00 - 0.04 x10(3)/[facility] Blood specimen (specimen) 02/13/2020 7:05 AM EDT 02/13/2020 7:21 AM EDT Narrative Resulting Agency Comment Spec In Lab Ori Bashir MD HEMATOLOGY ORDERABLE S Performing Organization Address City/[facility]/ZIP Co de Phone Number [facility] [place] [address] * (ABNORMAL) Hemogram (02/13/2020 7:05 AM EDT) White Blood Cell 4.9 4.0 - 9.5 x10(3)/ L [facility] Red Blood Cell 4.79 4.58 - 5.54 x10(6)/mc L [facility] Hemoglobin 15.2 13.7 - 16.5 gm/dL [facility] Hematocrit 45.6 40.5 - 48.5 % [facility] Mean Cell Volume 95.2(H) 82.9 - 93.1 fL [facility] Mean Cell Hemoglobin 31.7 27.5 - 32.1 pg [facility] Mean Cell Hemoglobin Concentration 33.3 32.0 - 35.7 gm/dL [facility] Platelet 87(L) 145 - 357 x10(3)/[facility] LABORATORY RDW Standard Deviation 50.9(H) 36.0 - 45.0 [facility] RDW coefficient of variation 14.4(H) 11.4 - 13.8 % [facility] Mean Platelet Volume 12.2 7.6 - 12.9 [facility] NRBC% auto 0.0 % [facility] NRBC Absolute 0.000 0.000 - 0.000 x10(3)/[facility] Blood specimen (specimen) 02/13/2020 7:05 AM EDT 02/13/2020 7:21 AM EDT Narrative Resulting Agency Comment Spec In Lab Ori Bashir MD HEMATOLOGY ORDERABLE S [facility] [place] [address] * Phosphorus (02/13/2020 7:05 AM EDT) Phosphorus 3.2 2.5 - 4.5 mg/dL [facility] Blood specimen (specimen) 02/13/2020 7:05 AM EDT 02/13/2020 7:21 AM EDT Narrative Resulting Agency Comment Spec In Lab Nima Armstrong MD CHEMISTRY ORDERABLES Performing Organization Address City/[facility]/ZIP Co de Phone Number [facility] [place] [address] * Magnesium (02/13/2020 7:05 AM EDT) Magnesium 0.79 0.69 - 1.07 mmol/L [facility] Blood specimen (specimen) 02/13/2020 7:05 AM EDT 02/13/2020 7:21 AM EDT Narrative Resulting Agency Comment Spec In Lab Nima Armstrong MD CHEMISTRY ORDERABLES Performing Organization Address City/[facility] Co de Phone Number [facility] [place] [address] * (ABNORMAL) Basic Metabolic Panel (non-fasting) (02/13/2020 7:05 AM EDT) Glucose 131 65 - 199 mg/dL [facility] Comment:Diabetes: >=200 mg/d L plus symptoms Blood Urea Nitrogen 43(H) 10 - 20 mg/dL [facility] Creatinine 1.26 0.80 - 1.50 mg/dL [facility] Sodium 135 135 - 145 mmol/L [facility] Potassium 4.0 3.5 - 5.0 mmol/L [facility] Comment: Please note: ??Patients with WBC >100,000 may have falsely elevated Potassium levels. ??For accurate Potassium quantification in these patients send serum separator tube (gold top) for subsequent determinations. ??Contact the Clinical Chemistry Laboratory if there are any questions. Chloride 99 98 - 107 mmol/L [facility] Carbon Dioxide 20(L) 22 - 31 mmol/L [facility] Anion Gap 16(H) 5 - 15 mmol/L [facility] Calcium 9.0 8.5 - 10.5 mg/dL [facility] Est Glomerular Filtration Rate 59(L) >=60 mL/min/1. 73 m?? [facility] Comment: The eGFR was calculated using the CKD-EPI equation. As with all creatinine based estimates of kidney function, eGFR values calculated with the CKD-EPI equation are not accurate in patients with acute kidney failure, extremes of body mass or the acutely ill. [email or web address] eGFR 68 >=60 mL/min/1. 73 m?? [facility] Comment: The eGFR was calculated using the CKD-EPI equation. As with all creatinine based estimates of kidney function, eGFR values calculated with the CKD-EPI equation are not accurate in patients with acute kidney failure, extremes of body mass or the acutely ill. 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 Malignant neoplasm of bladder, part unspecified PVD (peripheral vascular disease) Peripheral vascular disease, unspecified Severe protein-calorie malnutrition Other severe protein-calorie malnutrition Weight loss, abnormal Loss of weight Bladder cancer Malignant neoplasm of bladder, part unspecified Severe protein-calorie malnutrition Other severe protein-calorie malnutrition PVD (peripheral vascular disease) Peripheral vascular disease, unspecified documented in this encounter Admitting Diagnoses Diagnosis Bladder cancer Malignant neoplasm of bladder, part unspecified documented in this encounter Administered Medications Inactive Administered Medications - up to 3 most recent administrations Medication Order MAR Action Action Date Dose Rate Site acetaminophen (OFIRMEV) injection 1,000 mg 1,000 mg, Intravenous, at 400 mL/hr, Administer over 15 Minutes, EVERY 8 HOURS SCHEDULED, 3 doses, First dose on Wed02/19/20 at 1400, Last dose on 8/11/20 at 0600, Maximum dose of acetaminophen is 4000 mg from all sources in 24 hours. When ordered for pain, acetaminophen should be given even when other ordered pain medications are indicated. , Routine, Is ketorolac (Toradol) IV contraindicated? Yes, Can this patient tolerate oral medications or suppositories? No Given 02/20/2020 6:06 AM EDT 1,000 mg 400 mL/hr Given 02/19/2020 9:24 PM EDT 1,000 mg 400 mL/hr Given 02/19/2020 2:06 PM EDT 1,000 mg 400 mL/hr acetaminophen (Tylenol) tablet 1,000 mg 1,000 mg, Oral, EVERY 8 HOURS PRN, Starting on Wed02/20/20 at 1558, Until Wed03/07/20 at 1703, Pain, Maximum dose of acetaminophen is 4000 mg from all sources in 24 hours. When ordered for pain, acetaminophen should be given even when other ordered pain medications are indicated. Okay to crush and admin through g-tube, Routine Given 02/28/2020 10:57 PM EDT 1,000 mg acetaminophen (Tylenol) tablet 975 mg 975 mg, Oral, USER SPECIFIED (4 times per day), First dose on Wed02/14/20 at 0000, Until Discontinued, Do not exceed 4,000 mg in 24 hours., Routine Given 02/18/2020 12:39 AM EDT 975 mg Given 02/15/2020 12:37 PM EDT 975 mg Given 02/15/2020 6:29 AM EDT 975 mg albuteroL 90 mcg/actuation inhaler 2 puff 2 puff, Inhalation, 4 TIMES DAILY, First dose on Wed02/14/20 at 0900, Until Discontinued, Routine, Is there a contraindication to the patient receiving this medication as a nebulizer? Yes Given 03/05/2020 10:00 AM EDT 2 puffs Given 03/02/2020 9:49 AM EDT 2 puffs Given 03/01/2020 10:05 AM EDT 2 puffs alvimopan (Entereg) capsule 12 mg 12 mg, Oral, ONCE, 1 dose, On Wed02/13/20 at 0700, Before surgery, Day of Surgery (Day of Procedure), Routine, Alvimopan is contraindicated if patient has received therapeutic opioids for more than 7 consecutive days. Acknowledged, Restricted to urology. Please select indication. Radical cystectomy, The ordering provider has read the materials in the [employer] Program Kit and understand the risks and benefits of alvimopan. Acknowledged Given 02/13/2020 7:17 AM EDT 12 mg alvimopan (Entereg) capsule 12 mg 12 mg, Oral, 2 TIMES DAILY, 14 doses, First dose on Wed02/13/20 at 2230, Last dose on Wed02/20/20 at 0900, WARNING: Do Not give to chronic opioid users, Routine, Alvimopan is contraindicated if patient has received therapeutic opioids for more than 7 consecutive days. Acknowledged, Restricted to urology. Please select indication. Radical cystectomy, The ordering provider has read the materials in the [employer] Program Kit and understand the risks and benefits of alvimopan. Acknowledged Given 02/15/2020 10:11 AM EDT 12 mg Given 02/14/2020 10:28 PM EDT 12 mg Given 02/14/2020 9:38 AM EDT 12 mg aspirin chewable tablet 81 mg 81 mg, Oral, DAILY, First dose on Wed02/16/20 at 1030, Until Discontinued, Routine Given 03/07/2020 9:30 AM EDT 81 mg Given 03/06/2020 10:37 AM EDT 81 mg Given 03/05/2020 9:58 AM EDT 81 mg atorvastatin (Lipitor) tablet 20 mg 20 mg, Oral, DAILY, First dose on Wed02/14/20 at 0900, Until Discontinued, Routine Given 03/07/2020 9:30 AM EDT 20 mg Given 03/06/2020 10:37 AM EDT 20 mg Given 03/04/2020 8:26 AM EDT 20 mg azithromycin (Zithromax) (40 mg/mL) oral liquid 500 mg 500 mg, Oral, DAILY, 6 doses, First dose (after last modification) on Wed02/20/20 at 1400, Last dose on Wed02/25/20 at 0900, Routine Given 02/20/2020 1:27 PM EDT 500 mg azithromycin (Zithromax) (40 mg/mL) oral liquid 500 mg 500 mg, Oral, DAILY, 5 doses, First dose on Wed02/21/20 at 1100, Last dose on Wed02/25/20 at 0900, Routine Given 02/25/2020 10:43 AM EDT 500 mg Given 02/24/2020 8:55 AM EDT 500 mg Given 02/23/2020 8:34 AM EDT 500 mg azithromycin (Zithromax) (40 mg/mL) oral liquid 500 mg 500 mg, Oral, DAILY, 7 doses, First dose (after last modification) on Wed02/27/20 at 1100, Last dose on Wed03/04/20 at 0900, Routine Given 02/28/2020 8:33 AM EDT 500 mg Given 02/27/2020 11:51 AM EDT 500 mg azithromycin (Zithromax) tablet 500 mg 500 mg, Oral, DAILY, 5 doses, First dose on Wed02/29/20 at 0900, Last dose on Wed03/04/20 at 0900, Routine, Indication for (Active or Suspected): GI/Intra-abdominal Given 03/04/2020 8:28 AM EDT 500 mg Given 03/03/2020 10:50 AM EDT 500 mg Given 03/02/2020 9:50 AM EDT 500 mg calcium carbonate (Tums) chewable tablet 1,000 mg 1,000 mg, Oral, EVERY 6 HOURS PRN, Starting on Wed03/01/20 at 203, Until Wed03/07/20 at 1703, Heartburn, Routine calcium carbonate (Tums) chewable tablet 500-1,000 mg 500-1,000 mg, Oral, EVERY 4 HOURS PRN, Starting on Wed02/19/20 at 1013, Until Wed03/01/20 at 2030, Heartburn, Give 500 mg (1 tablet) for mild to moderate heartburn. Give 1,000 mg (2 tablets) for severe heartburn., Routine Given 02/28/2020 8:58 PM EDT 1,000 mg Given 02/24/2020 5:35 PM EDT 500 mg Given 02/20/2020 7:45 AM EDT 500 mg calcium gluconate 1g in sodium chloride 0.9% 100mL 1 g, Intravenous, EVERY HOUR, 2 doses, First dose on Wed02/13/20 at 2300, Last dose on Wed02/14/20 at 0000, Administer over 60 Minutes, Warning Vesicant/Irritant Medication New Bag 02/13/2020 11:46 PM EDT 1 g 100 mL/hr New Bag 02/13/2020 10:49 PM EDT 1 g 100 mL/hr ceFAZolin (Ancef) 2 g in dextrose 5% 100 mL infusion 2 g, Intravenous, ONCE, 1 dose, On Wed02/28/20 at 1045, Administer over 30 Minutes, Redose every 3 hours if CrCl is greater than 20. Redose every 8 hours if CrCl is less than 20., Angio/IR (Day of Procedure), Indication for (Active or Suspected): Prophylaxis Given 02/28/2020 10:19 AM EDT 2 g 200 mL /hr cefTRIAXone (ROCEPHIN) 2 g vial attach to sodium chloride 0.9% 50 mL Mini-Bag Plus 2 g, Intravenous, EVERY 24 HOURS, 1 dose, First dose on Wed02/14/20 at 0700, Administer over 30 Minutes, Recovery (Recovery-Hospital Unit), Indication for (Active or Suspected): Prophylaxis New Bag 02/14/2020 6:06 AM EDT 2 g 100 mL/ hr dextrose 5% and sodium chloride 0.45% with potassium chloride 10 mEq infusion 100 mL/hr, Intravenous, CONTINUOUS, Starting on Bety 02/15/20 at 0815, Until 02/18/20 at 0655, Warning Vesicant/Irritant Medication New Bag 02/17/2020 1:26 PM EDT 100 mL/hr 100 mL/hr New Bag 02/16/2020 2:31 PM EDT 100 mL/hr 100 mL/hr New Bag 02/16/2020 2:55 AM EDT 100 mL/hr 100 mL/hr dextrose 5% and sodium chloride 0.45% with potassium chloride 20 mEq infusion 100 mL/hr, Intravenous, CONTINUOUS, Starting on 02/18/20 at 0745, Until 02/19/20 at 1738, Warning Vesicant/Irritant Medication New Bag 02/19/2020 2:07 PM EDT 100 mL/hr 100 mL/hr New Bag 02/19/2020 5:57 AM EDT 100 mL/hr 100 mL/hr New Bag 02/18/2020 8:16 PM EDT 100 mL/hr 100 mL/hr dronabinoL (Marinol) capsule 2.5 mg 2.5 mg, Oral, 2 TIMES DAILY, First dose on Wed02/26/20 at 1345, Until Discontinued, Routine Given 03/07/2020 9:29 AM EDT 2.5 mg Given 03/06/2020 8:46 PM EDT 2.5 mg Given 03/06/2020 10:37 AM EDT 2.5 mg enoxaparin (LOVENOX) injection 40 mg 40 mg, Subcutaneous, EVERY 24 HOURS SCHEDULED, First dose on Wed02/19/20 at 1930, Until Discontinued, Please teach pt how to self inject lovenox, Routine Given 03/07/2020 9:29 AM EDT 40 mg Given 03/06/2020 10:37 AM EDT 40 mg Given 03/05/2020 9:58 AM EDT 40 mg ergocalciferoL (vitamin D2) (8,000 units/mL) oral liquid 50,000 Units 50,000 Units, Per G Tube, WEEKLY, 9 doses, First dose on Bety 02/29/20 at 1330, Last dose on Bety 04/25/20 at 0900, Routine Given 03/07/2020 9:29 AM EDT 50,000 Units Given 02/29/2020 5:34 PM EDT 50,000 Units fentaNYL (PF) 50 mcg/mL injection 12.5-50 mcg, Intravenous, EVERY 1 MIN PRN, Starting on Wed02/13/20 at 0605, Until Wed02/13/20 at 0856, Pain, Epidural Placement only, Fentanyl Citrate 50 mcg/mL injection: Start dose 25 mcg (Reduce dose to 12.5 mcg if history of sedation sensitivity). Titration dose: 12.5-50 mcg IV (based on patient response) Intravenous (IV), every 3 minutes to maintain procedural pain less than 2 per pain scale. Maximum dose 50mcg per dose, 250mcg/hour., Routine Given 02/13/2020 8:26 AM EDT 50 mcg fentaNYL 50 mcg/mL multi-dose injection 25-50 mcg, Intravenous, EVERY 3 MIN PRN, Starting on Wed02/28/20 at 0952, Until Wed02/28/20 at 1211, Pain, per unit protocol, - Start dose 50 mcg (reduce dose to 25 mcg if history of sedation sensitivity). - Titration dose 25-50 mcg IV, (based on patient response) every 3 minutes PRN, to maintain procedural pain less than 2 per pain Scale. Maximum dose: 50 mcg/dose, 250 mcg/hour For use in Interventional Radiology (IR) only for procedural sedation with direct provider supervision and verbal order., Angio/IR (Intra-Procedure), Routine Given 02/28/2020 11:01 AM EDT 25 mcg Given 02/28/2020 10:48 AM EDT 50 mcg Given 02/28/2020 10:42 AM EDT 25 mcg free water bolus 200 mL 200 mL, Per G Tube, 2 TIMES DAILY, First dose on Wed03/04/20 at 2100, Until Discontinued, Please give with Chantix to reduce GI upset., Routine Given 03/07/2020 9:00 AM EDT 200 mLs Given 03/06/2020 9:00 PM EDT 200 mLs Given 03/06/2020 10:55 AM EDT 200 mLs gentamicin (GARAMYCIN) 120 mg in sodium chloride 0.9% 100 mL 120 mg, Intravenous, ONCE, 1 dose, On Bety 02/22/20 at 0930, Administer over 60 Minutes, This medication may have an associated drug lab level. Please check for lab orders. Warning Vesicant/Irritant Medication , Indication for (Active or Suspected): Prophylaxis New Bag 02/22/2020 10:55 AM EDT 120 mg 100 mL/hr glucagon (human recombinant) injection SolR 1 mg 1 mg, Intravenous, ONCE, 1 dose, On Wed02/28/20 at 1045, For use in Interventional Radiology (IR) only for procedure with direct provider supervision and verbal order., Angio/IR (Intra-Procedure), Routine Given 02/28/2020 10:45 AM EDT 1 mg heparin (Porcine) subcutaneous injection 5,000 Units 5,000 Units, Subcutaneous, ONCE, 1 dose, On Wed02/13/20 at 0700, 30 minutes pre-op, Day of Surgery (Day of Procedure), Routine Given 02/13/2020 8:50 AM EDT 5,000 Units heparin (Porcine) subcutaneous injection 5,000 Units 5,000 Units, Subcutaneous, EVERY 8 HOURS SCHEDULED, First dose on Wed02/13/20 at 2230, Until Discontinued, Routine Given 02/19/2020 5:55 AM EDT 5,000 Units Given 02/18/2020 11:19 PM EDT 5,000 Units Right Lower Quadrant Given 02/18/2020 1:13 PM EDT 5,000 Units heparin, porcine 100 unit/mL flush 500 Units 500 Units (5 mL), Intravenous, DAILY PRN, 1 dose, Starting on Bety 03/07/20 at 1249, Until Bety 03/07/20 at 1703, Line Care, Terminal Flush for de-accessing of Implantable Port, Routine HYDROmorphone (Dilaudid) 10 mcg/mL, BUpivacaine (Marcaine) 0.1% (0.1 mg/mL) (1/10%) in sodium chloride 0.9% 250 mL epidural Epidural, PCEA Dose: 3 mL, PCEA Frequency: Every 20 minutes, Maximum rate for continuous infusion 14 mL per hour Maximum total epidural rate (continuous and PCEA bolus) is 25 mL per hour, Recovery (Recovery-Hospital Unit) Rate/Dose Change 02/19/2020 10:25 AM EDT 0.1 mL/hr 0.1 mL/hr New Bag 02/19/2020 10:23 AM EDT 0.1 mL/hr 0.1 mL/hr Rate/Dose Change 02/19/2020 6:27 AM EDT 4 mL/hr 4 mL/hr HYDROmorphone (DILAUDID) injection 0.2 mg 0.2 mg, Epidural, ONCE, 1 dose, On Wed02/13/20 at 0630, Routine Given 02/13/2020 8:50 AM EDT 0.2 mg HYDROmorphone (DILAUDID) injection 0.2 mg 0.2 mg, Intravenous, ONCE PRN, 1 dose, Starting on 02/19/20 at 2347, Until Wed02/20/20 at 0008, Pain, Breakthrough pain uncontrolled with previously ordered modalities, Routine Given 02/20/2020 12:08 AM EDT 0.2 mg HYDROmorphone (DILAUDID) injection 0.2-0.4 mg 0.2-0.4 mg, Intravenous, EVERY 5 MIN PRN, Starting on Wed02/13/20 at 1720, Until Wed02/13/20 at 2151, Pain, Give 0.2 mg every 5 minutes PRN for mild to moderate pain (1-5) Give 0.4 mg every 5 minutes PRN for moderate to severe pain (6-10). Hold for respiratory rate less than 10 per minute. Maximum dose 4 mg over one hour. If multiple pain medications are ordered, start with hydromorphone or morphine and use fentanyl for breakthrough pain., Routine Given 02/13/2020 7:14 PM EDT 0.4 mg Given 02/13/2020 7:05 PM EDT 0.4 mg iohexoL (OMNIPAQUE) 350 mg/mL solution 50 mL 50 mL, Other, ONCE, 1 dose, On Wed02/28/20 at 1215, Warning Vesicant/Irritant Medication , Angio/IR (Intra-Procedure), Routine Given 02/28/2020 12:15 PM EDT 20 mLs ipratropium-albuteroL (DUONEB) 0.5 mg-3 mg(2.5 mg base)/3 mL nebulizer solution 3 mL 3 mL, Nebulization, ONCE, 1 dose, On Wed02/13/20 at 0700, Day of Surgery (Day of Procedure), Routine Given 02/13/2020 7:00 AM EDT 3 mLs lactated Ringers 1,000 mL IV bolus Intravenous, ONCE, 1 dose, On Wed02/13/20 at 0730, Day of Surgery (Day of Procedure) New Bag 02/13/2020 7:30 AM EDT lactated Ringers 1,000 mL IV bolus Intravenous, ONCE, 1 dose, On Wed02/18/20 at 1045 02/18/2020 11:37 AM EDT lactated Ringers 500 mL IV bolus Intravenous, ONCE, 1 dose, On 02/14/20 at 1715 02/14/2020 4:20 PM EDT lactated Ringers 500 mL IV bolus Intravenous, ONCE, 1 dose, On 02/17/20 at 1845 New 02/17/2020 6:32 PM EDT 500 mL/hr lactated Ringers 690 mL IV bolus Intravenous, ONCE, 1 dose, On 02/18/20 at 1800 New 02/18/2020 6:21 PM EDT 690 mL/hr lactated ringers infusion 1,000 mL, at 100 mL/hr, Intravenous, CONTINUOUS, Starting on 02/13/20 at 1830, Until Bety 02/15/20 at 0727, Recovery (Recovery-Hospital Unit) New 02/14/2020 3:57 PM EDT 1,000 mLs 100 mL/hr New Bag 02/14/2020 5:24 AM EDT 1,000 mLs 100 mL/hr New Bag 02/13/2020 10:30 PM EDT 1,000 mLs 100 mL/hr lidocaine (LIDODERM) 5 % patch 3 patch 3 patch, Transdermal, EVERY 24 HOURS, First dose on Wed02/19/20 at 1330, Until Discontinued, Apply patch(es) for 12 hours, and then remove for 12 hours, Routine Patch Applied 03/04/2020 12:39 PM EDT 2 patches 14- Abdomen (Right) Patch Applied 03/02/2020 1:25 PM EDT 3 patches 14- Abdomen (Right) Patch Applied 03/01/2020 1:53 PM EDT 3 patches 14- Abdomen (Right) lidocaine (LIDODERM) 5 %(700 mg/patch) Patch Removal Transdermal, EVERY 24 HOURS, First dose on Wed02/20/20 at 0045, Until Discontinued, Remove lidocaine 5 %(700 mg/patch) patch lidocaine (XYLOCAINE) 10 mg/mL (1 %) injection 10 mg 10 mg, Subcutaneous, ONCE, 1 dose, On Wed02/28/20 at 1045, For use in Interventional Radiology (IR) only for procedure with direct provider supervision and verbal order., Angio/IR (Intra-Procedure), Routine Given 02/28/2020 10:45 AM EDT 10 mg melatonin tablet 6 mg 6 mg, Oral, NIGHTLY, First dose on Wed02/28/20 at 2100, Until Discontinued, Routine Given 03/06/2020 9:00 PM EDT 6 mg Given 03/05/2020 9:35 PM EDT 6 mg Given 03/04/2020 10:11 PM EDT 6 mg methylphenidate (Ritalin) tablet 10 mg 10 mg, Oral, 2 TIMES DAILY, First dose (after last modification) on Wed03/03/20 at 0600, Until Discontinued, Give at 6 am and at 12 noon as per psychiatry., Routine Given 03/04/2020 12:39 PM EDT 10 mg Given 03/04/2020 6:01 AM EDT 10 mg Given 03/03/2020 1:19 PM EDT 10 mg methylphenidate (Ritalin) tablet 12.5 mg 12.5 mg, Oral, 2 TIMES DAILY, First dose (after last modification) on Wed03/05/20 at 0600, Until Discontinued, Give at 6 am and at 12 noon as per psychiatry. OK to crush and put through Gtube if pt cannot swallow., Routine Given 03/07/2020 11:32 AM EDT 12.5 mg Given 03/07/2020 6:28 AM EDT 12.5 mg Given 03/06/2020 12:26 PM EDT 12.5 mg methylphenidate (Ritalin) tablet 2.5 mg 2.5 mg, Oral, EVERY MORNING, First dose on Wed02/28/20 at 0700, Until Discontinued, Routine Given 02/29/2020 5:34 AM EDT 2.5 mg methylphenidate (Ritalin) tablet 2.5 mg 2.5 mg, Oral, DAILY AT NOON, First dose on Wed02/28/20 at 1200, Until Discontinued, Routine Given 02/28/2020 1:44 PM EDT 2.5 mg methylphenidate (Ritalin) tablet 2.5 mg 2.5 mg, Oral, ONCE, 1 dose, On Wed03/01/20 at 1415, Routine Given 03/01/2020 1:53 PM EDT 2.5 mg methylphenidate (Ritalin) tablet 2.5 mg 2.5 mg, Oral, ONCE, 1 dose, On Wed03/04/20 at 1345, Routine Given 03/04/2020 2:04 PM EDT 2.5 mg methylphenidate (Ritalin) tablet 5 mg 5 mg, Oral, 2 TIMES DAILY, First dose on Wed02/29/20 at 1330, Until Discontinued, Give at 6 am and at 12 noon as per psychiatry., Routine Given 03/01/2020 11:13 AM EDT 5 mg Given 03/01/2020 5:18 AM EDT 5 mg Given 02/29/2020 1:19 PM EDT 5 mg methylphenidate (Ritalin) tablet 7.5 mg 7.5 mg, Oral, 2 TIMES DAILY, First dose (after last modification) on Wed03/01/20 at 1200, Until Discontinued, Give at 6 am and at 12 noon as per psychiatry., Routine Given 03/02/2020 11:38 AM EDT 7.5 mg Given 03/02/2020 6:49 AM EDT 7.5 mg metoprolol succinate XL (Toprol-XL) tablet 25 mg 25 mg, Oral, DAILY, First dose on Wed02/14/20 at 0900, Until Discontinued, DO NOT CRUSH OR OPEN, Routine Given 02/29/2020 10:30 AM EDT 25 mg Given 02/28/2020 8:33 AM EDT 25 mg Given 02/27/2020 8:18 AM EDT 25 mg metoprolol tartrate (Lopressor) tablet 12.5 mg 12.5 mg, Oral, EVERY 12 HOURS SCHEDULED, First dose on Wed03/01/20 at 1100, Until Discontinued, OK to give via Gtube if he refuses oral. Hold for HR< 60 or SBP < 100., Routine Given 03/07/2020 9:30 AM EDT 12.5 mg Given 03/06/2020 8:45 PM EDT 12.5 mg Given 03/06/2020 10:36 AM EDT 12.5 mg metroNIDAZOLE (FLAGYL) 500 mg in sodium chloride 0.9% 100 mL 500 mg, Intravenous, EVERY 8 HOURS, 2 doses, First dose on Wed02/13/20 at 1830, Last dose on Wed02/14/20 at 0230, Administer over 30 Minutes, Recovery (Recovery-Hospital Unit), Indication for (Active or Suspected): Prophylaxis New Bag 02/14/2020 1:44 AM EDT 500 mg 200 mL/ hr New Bag 02/13/2020 6:53 PM EDT 500 mg 200 mL/hr miconazole nitrate (REMEDY PHYTOPLEX) 2 % ointment Topical (Top), 2 TIMES DAILY, First dose on Wed02/20/20 at 2100, Until Discontinued Given 03/07/2020 9:30 AM EDT Given 03/06/2020 9:00 PM EDT Given 03/05/2020 9:50 PM EDT midazolam (PF) (VERSED) injection 0.5-2 mg 0.5-2 mg, Intravenous, EVERY 1 MIN PRN, Starting on Wed02/13/20 at 0605, Until Wed02/13/20 at 0856, Sleep, Epidural placement only, Midazolam (Versed) 1 mg/mL injection: Start dose 1 mg (Reduce dose to 0.5 mg if history of sedation sensitivity). Titration dose: 0.5 mg-2 mg IV (based on patient response) Intravenous (IV), every 3 minutes PRN to obtain RASS score of -2. Maximum dose 2 mg per dose, 10 mg/hour., Routine Given 02/13/2020 8:30 AM EDT 1 mg Given 02/13/2020 8:18 AM EDT 1 mg midazolam (PF) (VERSED) multi-dose injection 0.5-1 mg 0.5-1 mg, Intravenous, EVERY 3 MIN PRN, Starting on Wed02/28/20 at 0952, Until Wed02/28/20 at 1211, Sleep, - Start dose; 1 mg (Reduce dose to 0.5 mg if history of sedation sensitivity). - Titration dose: 0.5 mg - 1 mg (based on patient response) every 3 minutes PRN to obtain RASS score of -3. Maximum dose: 1 mg per dose, 5 mg/hour. For use in Interventional Radiology (IR) only for procedural sedation with direct provider supervision and verbal order., Angio/IR (Intra-Procedure), Routine Given 02/28/2020 10:48 AM EDT 0.5 mg Given 02/28/2020 10:38 AM EDT 0.5 mg Given 02/28/2020 10:30 AM EDT 0.5 mg mirtazapine (Remeron) disintegrating tablet 7.5 mg 7.5 mg, Oral, NIGHTLY, First dose on Wed03/06/20 at 2100, Until Discontinued, Routine Given 03/06/2020 8:45 PM EDT 7.5 mg nitazoxanide (ALINIA) tablet 500 mg 500 mg, Oral, EVERY 12 HOURS SCHEDULED, First dose (after last modification) on Bety 02/22/20 at 2100, Until Discontinued, Okay to admin through g-tube, STAT Given 03/07/2020 2:18 PM EDT 500 mg Given 03/07/2020 6:28 AM EDT 500 mg Given 03/06/2020 8:45 PM EDT 500 mg ondansetron (ZOFRAN) injection 4 mg 4 mg, Intravenous, EVERY 8 HOURS PRN, Starting on Wed02/13/20 at 2144, Until Wed02/20/20 at 1121, Nausea Given 02/16/2020 2:55 AM EDT 4 mg Given 02/15/2020 4:31 PM EDT 4 mg Given 02/14/2020 9:45 AM EDT 4 mg ondansetron (ZOFRAN) injection 4 mg 4 mg, Intravenous, EVERY 8 HOURS, 3 doses, First dose on Wed02/13/20 at 2230, Last dose on Wed02/14/20 at 1430 Given 02/14/2020 2:24 PM EDT 4 mg ondansetron (ZOFRAN) injection 8 mg 8 mg, Intravenous, ONCE, 1 dose, On Wed02/13/20 at 0715, Day of Surgery (Day of Procedure) Given 02/13/2020 7:15 AM EDT 8 mg ondansetron (Zofran) tablet 4 mg 4 mg, Oral, EVERY 8 HOURS, 3 doses, First dose on Wed02/13/20 at 2230, Last dose on Wed02/14/20 at 1430, If multiple antiemetics are ordered, use ondansetron first. PO Preferred. If patient unable to take PO, may give IV if ordered., Routine Given 02/14/2020 5:22 AM EDT 4 mg Given 02/13/2020 10:27 PM EDT 4 mg pantoprazole (PROTONIX) injection 40 mg 40 mg, Intravenous, DAILY, First dose on Wed02/16/20 at 1200, Until Discontinued Given 02/19/2020 8:06 AM EDT 40 mg Given 02/18/2020 8:28 AM EDT 40 mg Given 02/17/2020 9:33 AM EDT 40 mg pantoprazole (PROTONIX) injection 40 mg 40 mg, Intravenous, 2 TIMES DAILY, First dose (after last modification) on Wed02/19/20 at 2100, Until Discontinued Given 02/22/2020 8:25 AM EDT 40 mg Given 02/21/2020 9:25 PM EDT 40 mg Given 02/21/2020 8:11 AM EDT [address] (Protonix) granules 40 mg 40 mg, Per G Tube, 2 TIMES DAILY, First dose on Wed03/01/20 at 1045, Until Discontinued, Add 10 mL of apple juice to the contents of one packet in a sterile cup and gently stir. Administer with a 60 mL syringe. Add an additional 10 mL of apple juice to rinse until the syringe is clear of granules. Given 03/07/2020 9:30 AM EDT 40 mg Given 03/06/2020 8:46 PM EDT 40 mg Given 03/06/2020 10:38 AM EDT 40 mg pantoprazole EC (Protonix) tablet 40 mg 40 mg, Oral, 2 TIMES DAILY, First dose on Wed02/22/20 at 2245, Until Discontinued, DO NOT CRUSH OR OPEN Given 02/28/2020 8:33 AM EDT 40 mg Given 02/27/2020 8:17 AM EDT 40 mg Given 02/26/2020 10:21 PM EDT 40 mg phenol 1.4% (CHLORASEPTIC) spray 1 spray 1 spray, Oral, EVERY 2 HOURS PRN, Starting on Wed02/19/20 at 0942, Until Wed03/07/20 at 1703, Irritation, Routine potassium chloride 10 mEq in 100 mL 10 mEq, Intravenous, EVERY 2 HOURS, 6 doses, First dose (after last modification) on Wed02/21/20 at 0600, Last dose on Wed02/21/20 at 1600, Administer over 60 Minutes, -Use only for pateint who is NPO, lacks enteral access, or potassium level less than 2.8 mMol/L -Doses in excess of 40 mEq potassium require re-checking STAT serum potassium level 1.5 hours after completion of last dose and prior to administration of additional doses. Administer each 10 mEq/100 mL dose over 60 minutes. New Bag 02/21/2020 4:50 PM EDT 10 mEq 100 mL /hr New Bag 02/21/2020 1:50 PM EDT 10 mEq 100 mL/hr New Bag 02/21/2020 12:16 PM EDT 10 mEq 100 mL/hr potassium chloride ER (K-Dur/Klor-Con) tablet 20 mEq 20 mEq, Oral, ONCE, 1 dose, On Wed02/20/20 at 0715, 20 mEq tablet may be dissolved in water for administration, Routine Given 02/20/2020 7:45 AM EDT 20 mEq prochlorperazine (COMPAZINE) injection 10 mg 10 mg, Intravenous, EVERY 6 HOURS PRN, Starting on Wed02/14/20 at 1209, Until Wed03/07/20 at 1703, Nausea, Routine Given 03/06/2020 9:03 PM EDT 10 mg Given 02/26/2020 11:19 AM EDT 10 mg Given 02/25/2020 8:08 PM EDT 10 mg sodium chloride 0.9 % (flush) flush 5 mL 5 mL, Intravenous, 2 TIMES DAILY, First dose on Wed02/13/20 at 2230, Until Discontinued, Recovery (Recovery-Hospital Unit), Routine Given 03/07/2020 9:31 AM EDT 5 mLs Given 03/06/2020 8:52 PM EDT 5 mLs Given 03/06/2020 9:00 AM EDT 5 mLs sodium chloride 0.9% 1,000 mL IV bolus Intravenous, ONCE, 1 dose, On 02/17/20 at 0500 New Bag 02/17/2020 4:16 AM EDT sodium chloride 0.9% infusion 1,000 mL, at 100 mL/hr, Intravenous, CONTINUOUS, Starting on Wed02/28/20 at 1045, Until Wed02/28/20 at 1211, Angio/IR (Day of Procedure) New Bag 02/28/2020 10:15 AM EDT 1,000 mLs 100 mL/hr sucralfate (Carafate) (100 mg/mL) oral liquid 1 g 1 g, Oral, 4 TIMES DAILY BEFORE MEALS & NIGHTLY, First dose on Wed03/06/20 at 0945, Until Discontinued, Routine Given 03/07/2020 11:33 AM EDT 1 g Given 03/07/2020 7:25 AM EDT 1 g Given 03/06/2020 8:45 PM EDT 1 g TPN Adult Central, Intravenous, at 100 mL/hr, CONTINUOUS, Starting on Wed02/19/20 at 1800, Until Wed02/21/20 at 0702, Administer over 24 Hours New Bag 02/19/2020 6:59 PM EDT 100 mL /hr TPN Adult Central, Intravenous, at 100 mL/hr, CONTINUOUS, Starting on Wed02/20/20 at 1800, Until Wed02/21/20 at 1759, Administer over 24 Hours New Bag 02/20/2020 7:01 PM EDT 100 mL /hr TPN Adult Central, Intravenous, at 100 mL/hr, CONTINUOUS, Starting on Wed02/21/20 at 1800, Until Wed02/22/20 at 1759, Administer over 24 Hours New Bag 02/21/2020 6:36 PM EDT 100 mL /hr TPN Adult Central, Intravenous, at 100 mL/hr, CONTINUOUS, Starting on Wed02/22/20 at 1800, Until Wed02/23/20 at 1629, Administer over 24 Hours New Bag 02/22/2020 6:08 PM EDT 100 mL /hr TPN Adult Central, Intravenous, at 100 mL/hr, CONTINUOUS, Starting on Wed02/23/20 at 1800, Until Wed02/26/20 at 1759, Administer over 24 Hours New Bag 02/25/2020 5:47 PM EDT 100 mL /hr New Bag 02/24/2020 5:54 PM EDT 100 mL/hr New Bag 02/23/2020 5:48 PM EDT 100 mL/hr TPN Adult Central, Intravenous, at 104 mL/hr, CYCLIC, Starting on Wed02/26/20 at 1800, Until Wed02/27/20 at 1319, Administer over 24 Hours New Bag 02/26/2020 6:20 PM EDT 104 mL/hr TPN Adult Central, Intravenous, at 104 mL/hr, CYCLIC, Starting on Wed02/27/20 at 1415, Until Wed02/28/20 at 0949, Administer over 12 Hours New Bag 02/27/2020 6:25 PM EDT 104 mL/hr TPN Adult Central, Intravenous, at 104 mL/hr, CYCLIC, Starting on Wed02/28/20 at 1800, Until Wed03/01/20 at 0827, Administer over 12 Hours New Bag 02/29/2020 6:31 PM EDT 104 mL/hr New Bag 02/28/2020 5:27 PM EDT 104 mL/hr traMADoL (Ultram) tablet 50 mg 50 mg, Oral, EVERY 6 HOURS PRN, Starting on Wed02/13/20 at 1814, Until Wed03/07/20 at 1703, Pain, May repeat 50 mg in 60 minutes if pain is not relieved. Contraindications with MAO inhibitors. Because of the potential risk and severity of serotonin syndrome or neuroleptic malignant syndrome - Like reactions, caution should be observed when administering selective serotonin reuptake inhibitors (SSRIs) with tramadol., Routine Given 02/25/2020 8:55 PM EDT 50 mg Given 02/20/2020 9:28 PM EDT 50 mg Given 02/20/2020 7:45 AM EDT 50 mg tube feeding diet 1,680 mL, Per G Tube, at 70 mL/hr, CONTINUOUS, Starting on Wed02/28/20 at 1400, Until Wed03/06/20 at 0958, Administer flushes and check residuals per policy, Which tube feed product? Promote, Initial Rate: (mL/hr): 20, Advance by: (mL): 10, Advance every: Q8H, Goal final rate: (mL/hr): 70 New Bag 03/05/2020 10:24 PM EDT 1,680 mLs 70 mL/hr New Bag 03/05/2020 7:07 AM EDT 1,680 mLs 70 mL/hr New Bag 03/03/2020 11:43 PM EDT 1,680 mLs 70 mL/hr tube feeding diet 1,680 mL, Per G Tube, at 336 mL/hr, 5 TIMES DAILY, First dose (after last modification) on Wed03/06/20 at 1100, Until Discontinued, Administer flushes and check residuals per policy, Which tube feed product? Promote, Initial Rate: (mL/hr): 100, Advance by: (mL): 50, Advance every: Other, advance: each feed, Goal final rate: (mL/hr): 336, Additional Information (if any): 60ml free water before and after each feeding New Bag 03/07/2020 11:00 AM EDT 1,680 mLs 336 mL/hr New Bag 03/07/2020 7:00 AM EDT 1,680 mLs 300 mL/hr New Bag 03/06/2020 10:00 PM EDT 1,680 mLs 250 mL/hr varenicline (Chantix) tablet 0.5 mg 0.5 mg, Oral, DAILY, 3 doses, First dose on Wed02/14/20 at 0900, Last dose on Wed02/16/20 at 0900, Administer 0.5 mg PO daily on days 1-3, then begin 0.5 mg PO BID for 4 days, and then begin 1 mg PO BID until the end of treatment, Routine Given 02/15/2020 10:12 AM EDT 0.5 mg Given 02/14/2020 1:31 PM EDT 0.5 mg varenicline (Chantix) tablet 0.5 mg 0.5 mg, Oral, 2 TIMES DAILY, 8 doses, First dose on Wed02/17/20 at 0900, Last dose on Wed02/20/20 at 2100, Administer 0.5 mg PO daily on days 1-3, then 0.5 mg PO BID for 4 days, and then 1 mg PO BID until the end of treatment, Routine Given 02/20/2020 9:29 PM EDT 0.5 mg Given 02/20/2020 10:00 AM EDT 0.5 mg Given 02/19/2020 9:25 PM EDT 0.5 mg varenicline (Chantix) tablet 1 mg 1 mg, Oral, 2 TIMES DAILY, First dose on Wed02/21/20 at 0900, Until Discontinued, Administer 0.5 mg PO daily on days 1-3, then 0.5 mg PO BID for 4 days, and then 1 mg PO BID until the end of treatment, Routine Given 03/07/2020 9:30 AM EDT 1 mg Given 03/06/2020 8:47 PM EDT 1 mg Given 03/06/2020 10:39 AM EDT 1 mg documented in this encounter Active and Recently Administered Medications Times are shown in EDT. Scheduled Medication Order 03/05/2020 03/06/2020 03/07/2020 albuteroL 90 mcg/actuation inhaler 2 puff 2 puff, Inhalation, 4 TIMES DAILY, First dose on Wed02/14/20 at 0900, Until Discontinued, Routine, Is there a contraindication to the patient receiving this medication as a nebulizer? Yes 1000 (Given - Provider: Soniya Moss RN)1300 (Not Given - Provider: Soniya Moss RN - Reason: Patient/family refused)1700 (Not Given - Provider: Soniya Moss RN - Reason: Patient/family refused)2150 (Not Given - Provider: Danie Callahan RN - Reason: Patient/family refused) 0802 (MAR Hold - Provider: Admin Adt - Reason: Transfer to a Procedural area)0900 (Automatically Held - Provider: Admin Adt)0949 (MAR Unhold - Provider: Admin Adt)1300 (Not Given - Provider: Wendy King RN - Reason: Patient/family refused)1700 (Not Given - Provider: Wendy King RN - Reason: Patient/family refused)2100 (Not Given - Provider: Bailey Collins RN - Reason: Patient/family refused) 0900 (Not Given - Provider: Wendy King RN - Reason: Patient/family refused)1300 (Not Given - Provider: Wendy King RN - Reason: Patient/family refused) aspirin chewable tablet 81 mg 81 mg, Oral, DAILY, First dose on Wed02/16/20 at 1030, Until Discontinued, Routine 0958 (Given - Provider: Soniya Moss RN) 0802 (SEP Hold - Provider: Admin Adt - Reason: Transfer to a Procedural area)0900 (Automatically Held - Provider: Admin Adt)0949 ([facility] Unhold - Provider: Admin Adt)1037 (Given - Provider: Wendy King RN) 0930 (Given - Provider: Wendy King RN) atorvastatin (Lipitor) tablet 20 mg 20 mg, Oral, DAILY, First dose on Wed02/14/20 at 0900, Until Discontinued, Routine 0900 (Not Given - Provider: Sonyia Moss RN - Reason: Patient/family refused)0959 (Not Given - Provider: Soniya Moss RN - Reason: Patient/family refused) 0802 (SEP Hold - Provider: Admin Adt - Reason: Transfer to a Procedural area)0900 (Automatically Held - Provider: Admin Adt)0949 ([facility] Unhold - Provider: Admin Adt)1037 (Given - Provider: Wendy King RN) 0930 (Given - Provider: Wendy King RN) dronabinoL (Marinol) capsule 2.5 mg 2.5 mg, Oral, 2 TIMES DAILY, First dose on Wed02/26/20 at 1345, Until Discontinued, Routine 0959 (Not Given - Provider: Soniya Moss RN - Reason: Patient/family refused)2134 (Not Given - Provider: Danie Callahan RN - Reason: Patient/family refused - Comment: refusing PO meds) 0802 (SEP Hold - Provider: Admin Adt - Reason: Transfer to a Procedural area)0900 (Automatically Held - Provider: Admin Adt)0949 ([facility] Unhold - Provider: Admin Adt)1037 (Given - Provider: Wendy King RN)2046 (Given - Provider: Bailey Collins RN) 0929 (Given - Provider: Wendy King RN) enoxaparin (LOVENOX) injection 40 mg 40 mg, Subcutaneous, EVERY 24 HOURS SCHEDULED, First dose on Wed02/19/20 at 1930, Until Discontinued, Please teach pt how to self inject lovenox, Routine 0958 (Given - Provider: Soniya Moss RN) 0802 (SEP Hold - Provider: Admin Adt - Reason: Transfer to a Procedural area)0900 (Automatically Held - Provider: Admin Adt)0949 ([facility] Unhold - Provider: Admin Adt)1037 (Given - Provider: Wendy King RN) 0929 (Given - Provider: Wendy King RN) ergocalciferoL (vitamin D2) (8,000 units/mL) oral liquid 50,000 Units 50,000 Units, Per G Tube, WEEKLY, 9 doses, First dose on Wed02/29/20 at 1330, Last dose on Wed04/25/20 at 0900, Routine 0802 ([facility] Hold - Provider: Admin Adt - Reason: Transfer to a Procedural area)0949 ([facility] Unhold - Provider: Admin Adt) 0929 (Given - Provider: Wendy King RN) free water bolus 200 mL 200 mL, Per G Tube, 2 TIMES DAILY, First dose on Wed03/04/20 at 2100, Until Discontinued, Please give with Chantix to reduce GI upset., Routine 0959 (Given - Provider: Soniya Moss, KEYA)2100 (Given - Provider: Danie Callahan RN) 0802 ([facility] Hold - Provider: Admin Adt - Reason: Transfer to a Procedural area)0900 (Automatically Held - Provider: Admin Adt)0949 ([facility] Unhold - Provider: Admin Adt)1055 (Given - Provider: Wendy King RN)2100 (Given - Provider: Bailey Collins, KEYA) 0900 (Given - Provider: Wendy King RN) lidocaine (LIDODERM) 5 % patch 3 patch(Linked Group 1) 3 patch, Transdermal, EVERY 24 HOURS, First dose on Wed02/19/20 at 1330, Until Discontinued, Apply patch(es) for 12 hours, and then remove for 12 hours, Routine 1330 (Not Given - Provider: Soniya Moss RN - Reason: Patient/family refused) 0802 ([facility] Hold - Provider: Admin Adt - Reason: Transfer to a Procedural area)0949 ([facility] Unhold - Provider: Admin Adt)1330 (Not Given - Provider: Wendy King RN - Reason: Patient/family refused) 1330 (Not Given - Provider: Wendy King RN - Reason: Patient/family refused) lidocaine (LIDODERM) 5 %(700 mg/patch) Patch Removal(Linked Group 1) Transdermal, EVERY 24 HOURS, First dose on Wed02/20/20 at 0045, Until Discontinued, Remove lidocaine 5 %(700 mg/patch) patch 0045 (Patch Removed - Provider: Jono Sommer RN) 0045 (Patch Not Removed (add comment) - Provider: Danie Callahan RN)0802 (SEP Hold - Provider: Admin Adt - Reason: Transfer to a Procedural area)0949 ([facility] Unhold - Provider: Admin Adt) 0045 (Patch Removed - Provider: Bailey Collins, KEYA) melatonin tablet 6 mg 6 mg, Oral, NIGHTLY, First dose on Wed02/28/20 at 2100, Until Discontinued, Routine 2135 (Given - Provider: Danie Callahan RN) 0802 (SEP Hold - Provider: Admin Adt - Reason: Transfer to a Procedural area)0949 ([facility] Unhold - Provider: Admin Adt)2100 (Given - Provider: Bailey Collins RN) methylphenidate (Ritalin) tablet 12.5 mg 12.5 mg, Oral, 2 TIMES DAILY, First dose (after last modification) on Wed03/05/20 at 0600, Until Discontinued, Give at 6 am and at 12 noon as per psychiatry. OK to crush and put through Gtube if pt cannot swallow., Routine 1000 (Given - Provider: Soniya Moss RN)1317 (Given - Provider: Soniya Moss RN) 0557 (Given - Provider: Danie Callahan RN)0802 (SEP Hold - Provider: Admin Adt - Reason: Transfer to a Procedural area)0949 ([facility] Unhold - Provider: Admin Adt)1226 (Given - Provider: Wendy King, KEYA) 0628 (Given - Provider: Bailey Collins, KEYA)1132 (Given - Provider: Wendy King RN) metoprolol tartrate (Lopressor) tablet 12.5 mg 12.5 mg, Oral, EVERY 12 HOURS SCHEDULED, First dose on Wed03/01/20 at 1100, Until Discontinued, OK to give via Gtube if he refuses oral. Hold for HR< 60 or SBP < 100., Routine 0959 (Given - Provider: Soniya Moss, KEYA)2136 (Given - Provider: Danie Callahan, RN) 0802 (SEP Hold - Provider: Admin Adt - Reason: Transfer to a Procedural area)0900 (Automatically Held - Provider: Admin Adt)0949 ([facility] Unhold - Provider: Admin Adt)103 (Given - Provider: Wendy King, RN)2044 (Given - Provider: Bailey Collins, KEYA) 09 (Given - Provider: Wendy King RN) miconazole nitrate (REMEDY PHYTOPLEX) 2 % ointment Topical (Top), 2 TIMES DAILY, First dose on Wed02/20/20 at 2100, Until Discontinued 0959 (Given - Provider: Soniya Moss RN)215 (Given - Provider: Danie Callahan RN) 08 (SEP Hold - Provider: Admin Adt - Reason: Transfer to a Procedural area)09 (Automatically Held - Provider: Admin Adt)49 ([facility] Unhold - Provider: Admin Adt)2099 (Given - Provider: Bailey Collins RN) 929 (Given - Provider: Wendy King, KEYA) mirtazapine (Remeron) disintegrating tablet 7.5 mg 7.5 mg, Oral, NIGHTLY, First dose on Wed03/06/20 at 2100, Until Discontinued, Routine 2044 (Given - Provider: Bailey Collins, KEYA) nitazoxanide (ALINIA) tablet 500 mg 500 mg, Oral, EVERY 12 HOURS SCHEDULED, First dose (after last modification) on Wed02/22/20 at 2100, Until Discontinued, Okay to admin through g-tube, STAT 1215 (Given - Provider: Soniya Moss RN - Comment: was awaiting dose from pharmacy)222 (Given - Provider: Danie Callahan RN - Comment: had to wait for pharmacy to send to the floor) 08 (SEP Hold - Provider: Admin Adt - Reason: Transfer to a Procedural area)0900 (Automatically Held - Provider: Admin Adt)0949 ([facility] Unhold - Provider: Admin Adt)2044 (Given - Provider: Bailey Collins RN) 06 (Given - Provider: Bailey Collins RN - Comment: verbal order to give early by NAHID Camacho)1418 (Given - Provider: Wendy King RN) pantoprazole DR (Protonix) granules 40 mg 40 mg, Per G Tube, 2 TIMES DAILY, First dose on Wed03/01/20 at 1045, Until Discontinued, Add 10 mL of apple juice to the contents of one packet in a sterile cup and gently stir. Administer with a 60 mL syringe. Add an additional 10 mL of apple juice to rinse until the syringe is clear of granules. 0958 (Given - Provider: Soniya Moss RN)2136 (Given - Provider: Danie Callahan RN) 0802 (MAR Hold - Provider: Admin Adt - Reason: Transfer to a Procedural area)0900 (Automatically Held - Provider: Admin Adt)0949 ([facility] Unhold - Provider: Admin Adt)1038 (Given - Provider: Wendy King RN)2046 (Given - Provider: Bailey Collins RN) 0930 (Given - Provider: Wendy King RN) sodium chloride 0.9 % (flush) flush 5 mL 5 mL, Intravenous, 2 TIMES DAILY, First dose on Wed02/13/20 at 2230, Until Discontinued, Recovery (Recovery-Hospital Unit), Routine 0959 (Given - Provider: Soniya Moss RN)2149 (Given - Provider: Danie Callahan RN) 0900 (Given - Provider: Wendy King RN)2052 (Given - Provider: Bailey Collins RN) 0931 (Given - Provider: Wendy King RN)1423 (Due - Provider: Nataly Caballero LPN - Comment: terminal flush prior ot discharge) sucralfate (Carafate) (100 mg/mL) oral liquid 1 g 1 g, Oral, 4 TIMES DAILY BEFORE MEALS & NIGHTLY, First dose on Wed03/06/20 at 0945, Until Discontinued, Routine 1226 (Given - Provider: Wendy King RN)1653 (Given - Provider: Wendy King RN)2045 (Given - Provider: Bailey Collins RN) 0725 (Given - Provider: Wendy King RN)1133 (Given - Provider: Wendy King RN) tube feeding diet 1,680 mL, Per G Tube, at 336 mL/hr, 5 TIMES DAILY, First dose (after last modification) on Wed03/06/20 at 1100, Until Discontinued, Administer flushes and check residuals per policy, Which tube feed product? Promote, Initial Rate: (mL/hr): 100, Advance by: (mL): 50, Advance every: Other, advance: each feed, Goal final rate: (mL/hr): 336, Additional Information (if any): 60ml free water before and after each feeding 1100 (Rate/Dose Change - Provider: Wendy King RN - Comment: 100cc as bolus feeding)1400 (Rate/Dose Change - Provider: Wendy King RN - Comment: 150cc bolus feed)1800 (New Bag - Provider: Wendy King RN - Comment: 200cc bolus)2200 (New Bag - Provider: Bailey Collins RN) 0700 (New Bag - Provider: Bailey Collins RN)1100 (New Bag - Provider: Wendy King RN)1400 (Stopped - Provider: Wendy King RN - Comment: pt being d/c'd to rehab) varenicline (Chantix) tablet 1 mg(Linked Group 2) 1 mg, Oral, 2 TIMES DAILY, First dose on Wed02/21/20 at 0900, Until Discontinued, Administer 0.5 mg PO daily on days 1-3, then 0.5 mg PO BID for 4 days, and then 1 mg PO BID until the end of treatment, Routine 09 (Given - Provider: Soniya Moss RN)2133 (Not Given - Provider: Danie Callahan RN - Reason: Patient/family refused - Comment: refusing PO meds) 0802 (SEP Hold - Provider: Admin Adt - Reason: Transfer to a Procedural area)0900 (Automatically Held - Provider: Admin Adt)0949 ([facility] Unhold - Provider: Admin Adt)1039 (Given - Provider: Wendy King RN)204 (Given - Provider: Bailey Collins RN) 0930 (Given - Provider: Wendy King RN) Continuous Medication Order 03/05/2020 03/06/2020 03/07/2020 tube feeding diet (CANCELED) 1,680 mL, Per G Tube, at 70 mL/hr, CONTINUOUS, Starting on Wed02/28/20 at 1400, Until Wed03/06/20 at 0958, Administer flushes and check residuals per policy, Which tube feed product? Promote, Initial Rate: (mL/hr): 20, Advance by: (mL): 10, Advance every: Q8H, Goal final rate: (mL/hr): 70 0707 (New Bag - Provider: Jono Sommer RN)2224 (New Bag - Provider: Danie Callahan, KEYA) 0029 (Stopped - Provider: Danie Callahan RN)0802 ([facility] Hold - Provider: Admin Adt - Reason: Transfer to a Procedural area)0949 ([facility] Unhold - Provider: Admin Adt) PRN Medication Order 03/05/2020 03/06/2020 03/07/2020 acetaminophen (Tylenol) tablet 1,000 mg 1,000 mg, Oral, EVERY 8 HOURS PRN, Starting on Wed02/20/20 at 1558, Until Wed03/07/20 at 1703, Pain, Maximum dose of acetaminophen is 4000 mg from all sources in 24 hours. When ordered for pain, acetaminophen should be given even when other ordered pain medications are indicated. Okay to crush and admin through g-tube, Routine 0802 ([facility] Hold - Provider: Admin Adt - Reason: Transfer to a Procedural area)0949 ([facility] Unhold - Provider: Admin Adt) calcium carbonate (Tums) chewable tablet 1,000 mg 1,000 mg, Oral, EVERY 6 HOURS PRN, Starting on Wed03/01/20 at 2031, Until Wed03/07/20 at 1703, Heartburn, Routine 0802 ([facility] Hold - Provider: Admin Adt - Reason: Transfer to a Procedural area)0949 ([facility] Unhold - Provider: Admin Adt) heparin, porcine 100 unit/mL flush 500 Units 500 Units (5 mL), Intravenous, DAILY PRN, 1 dose, Starting on Wed03/07/20 at 1249, Until Wed03/07/20 at 1703, Line Care, Terminal Flush for de-accessing of Implantable Port, Routine 1422 (Due - Provider : Nataly Caballero LPN - Comment: terminal flush prior to discharge) lidocaine (XYLOCAINE) 10 mg/mL (1 %) injection 3 mg 3 mg (0.3 mL), Subcutaneous, ONCE PRN, 1 dose, Starting on Wed02/13/20 at 2144, Until Bety 03/07/20 at 1703, for discomfort with PIV insertion, Recovery (Recovery-Hospital Unit), Routine phenol 1.4% (CHLORASEPTIC) spray 1 spray 1 spray, Oral, EVERY 2 HOURS PRN, Starting on Wed02/19/20 at 0942, Until Bety 03/07/20 at 1703, Irritation, Routine 0802 ([facility] Hold - Provider: Admin Adt - Reason: Transfer to a Procedural area)0949 ([facility] Unhold - Provider: Admin Adt) prochlorperazine (COMPAZINE) injection 10 mg 10 mg, Intravenous, EVERY 6 HOURS PRN, Starting on Wed02/14/20 at 1209, Until Bety 03/07/20 at 1703, Nausea, Routine 0802 ([facility] Hold - Provider: Admin Adt - Reason: Transfer to a Procedural area)0949 ([facility] Unhold - Provider: Admin Adt)2102 (Given - Provider: Bailey Collins RN) sodium chloride 0.9 % (flush) flush 5-20 mL 5-20 mL, Intravenous, EVERY 1 MIN PRN, Starting on Wed02/13/20 at 2144, Until Bety 03/07/20 at 1703, flush, Flush pertains to all indwelling lines. Flush per protocol found in the job aid using the link provided on this medication record., Recovery (Recovery-Hospital Unit), Routine traMADoL (Ultram) tablet 50 mg 50 mg, Oral, EVERY 6 HOURS PRN, Starting on Wed02/13/20 at 1814, Until Bety 03/07/20 at 1703, Pain, May repeat 50 mg in 60 minutes if pain is not relieved. Contraindications with MAO inhibitors. Because of the potential risk and severity of serotonin syndrome or neuroleptic malignant syndrome - Like reactions, caution should be observed when administering selective serotonin reuptake inhibitors (SSRIs) with tramadol., Routine 0802 ([facility] Hold - Provider: Admin Adt - Reason: Transfer to a Procedural area)0949 ([facility] Unhold - Provider: Admin Adt) Linked Groups Order Group 1: lidocaine (LIDODERM) 5 % patch 3 patchJump to med 3 patch, Transdermal, EVERY 24 HOURS, First dose on Wed02/19/20 at 1330, Until Discontinued, Apply patch(es) for 12 hours, and then remove for 12 hours, Routine And lidocaine (LIDODERM) 5 %(700 mg/patch) Patch RemovalJump to med Transdermal, EVERY 24 HOURS, First dose on Wed02/20/20 at 0045, Until Discontinued, Remove lidocaine 5 %(700 mg/patch) patch Group 2: varenicline (Chantix) tablet 0.5 mg () 0.5 mg, Oral, DAILY, 3 doses, First dose on Wed02/14/20 at 0900, Last dose on Wed02/16/20 at 0900, Administer 0.5 mg PO daily on days 1-3, then begin 0.5 mg PO BID for 4 days, and then begin 1 mg PO BID until the end of treatment, Routine Followed by varenicline (Chantix) tablet 0.5 mg () 0.5 mg, Oral, 2 TIMES DAILY, 8 doses, First dose on Wed02/17/20 at 0900, Last dose on Wed02/20/20 at 2100, Administer 0.5 mg PO daily on days 1-3, then 0.5 mg PO BID for 4 days, and then 1 mg PO BID until the end of treatment, Routine Followed by varenicline (Chantix) tablet 1 mgJump to med 1 mg, Oral, 2 TIMES DAILY, First dose on Wed02/21/20 at 0900, Until Discontinued, Administer 0.5 mg PO daily on days 1-3, then 0.5 mg PO BID for 4 days, and then 1 mg PO BID until the end of treatment, Routine documented in this encounter Additional Health Concerns Infection Onset Date Last Indicated Resolved Time Rule Out C. difficile 02/16/2020 02/16/20202019 4:52 PM EDT documented as of this encounter Care Teams Senior Principal Architect Relationship Specialty Start Date End Date Subhash Dowling MD [address] [place] [id number] PCP - General 06/03/10 documented as of this encounter
--- OUTSIDE RECORDS SUMMARY | 2024-08-15 01:33 | XMS_ITS | Encounter Summary ---
Author Organization [facility] [address] Care Team Providers Care [employer] Salesperson Name Role Phone Subhash Dowling MD Primary Care Provider [phone] Reason for Referral * Consultation (Routine) - Closed Specialty Diagnoses / Procedures Referred By Contelaina t Referred To Contact Gastroenterology Diagnoses Reflux esophagitis EGD in June for Matrinez's evaluation, any endoscopoist, anesthesia. Procedures Reflux esophagitis Deloris Vargas MD [facility] [place] [address] [facility] [place] [address] Referral ID Status Reason Start Date Expiration Date V isits Requested Visits Authorized [id number] Closed Consult, Test & Treat 03/06/2020 03/06/2021 1 1 Encounter Details Date Type Department Care Team (Late st Contact Info) Description 03/06/2020 Orders [place] [id number] Deloris Vargas MD [facility] [place] [address] Reflux esophagitis Social History Tobacco Use Types Packs/Day Years [...] 11:30 AM EST Office Visit Hematology/Oncology at [address] [phone] Chanelle Kim, [facility] [place] [address] Bee Curry [facility] [place] [address] Scheduled Referrals Name Type Priority Associated Diagnoses Order Schedule Referral to Gastroenterology Outpatient Referral Routine Reflux esophagitis Ordered: 03/06/2020 documented as of this encounter Visit Diagnoses Diagnosis Reflux esophagitis documented in this encounter Care Teams [employer] Salesperson Relationship Specialty Start Date End Date Subhash Dowling MD [address] [place] [id number] PCP - General 06/03/10 documented as of this encounter
--- OUTSIDE RECORDS SUMMARY | 2024-08-15 01:34 | XMS_ITS | Encounter Summary ---
Author Organization [facility] [place] [address] Care Team Providers Care Genetic Coordinator Name Role Phone Subhash Dowling MD Primary Care Provider [phone] Reason for Visit * Auth/Cert Specialty Diagnoses / Procedures Referred By Haroldo t Referred To Contact Diagnoses Bladder cancer Bladder Cancer . Procedures PRO CYSTECTOMY, ILEAL CONDUIT/SIGMOID BLADDER @CYSTECTOMY, COMPLETE, WITH ILEAL CONDUIT (WRVU 36.33) Referral ID Status Reason Start Date Expiration Date Visits Re quested Visits Authorized [id number] 1 1 Encounter Details Date Type Department Care Team (Late st Contact Info) Description 03/06/2020 8:11 AM EDT Anesthesia [place] [phone] Roberto Monroe MD [facility] DR [place] [address] Anesthesia Record Procedure Summary Procedure Name Responsible Anesthesiologist Anesthesia Start Time Anesthesia Stop Time EGD WITH BIOPSY (WRVU 2.39) (Trunk) Roberto Monroe MD 03/06/20 0811 03/06/20 0837 Events Date Time Event Comment 03/06/2020 0636 0811 AN Verify 0811 Start 0811 An Start Data 0811 An Induction 0811 Anesthesia Ready 0821 Break/Relief In I assumed ca re for Break Relief before which we: 1. Identified the patient 2. Identified the responsible provider(s) 3. Reviewed the pertinent medical history 4. Discussed the surgical plan and course 5. Reviewed intra-op anesthesia management and issues during anesthesia 6. Set expectations for the relief (and/or post-procedure) period 7. Allowed opportunity for questions and acknowledgement of understanding Kaye Lam CRNA 0837 an stop data 0837 Recovery or ICU Handoff Yamileth ent care was transferred to the destination unit staff after review of the patient's medical history, current anesthetic/surgical status and plan, according to the Provider Handoff Checklist. 0837 Stop Meds Name Total Propofol 60 mg Propofol INF 110.66 mg Lactated Ringers 0 mL * Agents Name O2 Air N2O O2 Auxiliary Flowmeter 1 * Blood No blood administrations on file. Lines, Drains, and Airways Type Details Placement Removal (RETIRED) Implanted Port - Single Lumen (non-apheresis) 11/27/19; 0751; infraclavicular fossa, right; power injectable port; superior vena cava; NAHID Perea and Dr. Lima in IR ; LOT # [id number] 11/27/19 0751 by Dyana Craft, KEYA Urostomy 02/13/20; 1529; RUQ; ileal conduit; 44 MM ; RED STENT IN RIGHT URETER BLUE STENT IN LEFT URETER 02/13/20 1529 by Galina Sullivan, RN Enterostomy Tube 02/28/20; 1056; gastrostomy tube with balloon; LUQ (left upper quadrant); G-Tube insertion MD Jany Raglandg 02/28/20 1056 by Gail Lara RN Incision 11/27/19; 0749; neck ; non-laparascopic puncture (Venous access from mediport placement); 03/09/22 (LDA cleanup utility RA#[id number]); 1715 (LDA cleanup utility RA#[id number]) 11/27/19 0749 by Dyana Craft RN 03/09/22 1715 by Kendra Newamn Incision 11/27/19; 0750; ches t; horizontal (from mediport insertion); 03/09/22 (LDA cleanup utility RA#[id number]); 1715 (LDA cleanup utility RA#[id number]) 11/27/19 0750 by Dyana Craft RN 03/09/22 1715 by Kendra Newman Incision 01/31/20; 1427; tors o; non-laparascopic puncture; CT Guided Retroperitoneal Biopsy Site MD Lemon / Gokul; 03/09/22 (LDA cleanup utility RA#[id number]); 1715 (LDA cleanup utility RA#[id number]) 01/31/20 1427 by Jason Dalton RN 03/09/22 1715 by Kendra Newman Incision 02/13/20; 0942; abdo men; midline; CYSTECTOMY ILEAL CONDUIT; 03/09/22 (LDA cleanup utility RA#[id number]); 1715 (LDA cleanup utility RA#[id number]) 02/13/20 0942 by Galina Sullivan RN 03/09/22 1715 by Kendra Newman (RETIRED) Peripheral IV Line - Single Lumen 02/19/20; 1651; basilic vein (medial side of arm), left; [id number] catheter system; 22 gauge, 1 in length, 3/4 in length; ANARN; distraction, intradermal injection, tolerated well, appears comfortable; 1; basilic vein (medial side of arm), left; 04/16/21 (LDA Cleanup utility RA#[id number]); 1650 (LDA Cleanup utility RA#[id number]) 02/19/20 1651 by Margaret Beltrán RN 04/16/21 1650 by Noah Cummings documented in this encounter Social History Tobacco Use Types Packs/Day Years [...] on file documented as of this encounter OR Notes * Anesthesia Postprocedure Evaluation - Roberto Monroe MD - 03/06/2020 2:19 PM EDT Department of Anesthesiology Post-procedure Note Patient: Gt Aguilar Procedure Summary Date: 03/06/20 Room / Location: [facility] ENDO 2 / [facility] ENDOSCOPY Anesthesia Start: 810 Anesthesia Stop: 836 Procedure: EGD WITH BIOPSY (WRVU 2.49) (N/A Trunk) Diagnosis: (EGD) Surgeon: Chato York MD Responsible Provider: Roberto Monroe MD Anesthesia Type: MAC ASA Status: 3 All Anesthesia Providers: Anesthesiologist: Roberto Monroe MD HOISTING ENGINEER PILE DRIVING: Ernie Mckenzie CRNA Vitals Value Taken Time BP 107/65 03/06/20 0920 Temp Pulse Resp 18 03/06/20 0850 SpO2 100 % 03/06/20 0922 Pain Level 0 03/06/20 0850 Patient Location: PACU/[facility] Level of Consciousness: Awake and Alert Pain Management: Satisfactory Analgesia PONV: None Cardiovascular Status: At Baseline and Hemodynamically Stable Respiratory Status: At Baseline and Room Air Postoperative Fluid Status: Intravascular EUvolemia Possible Anesthetic Complications: NONE apparent at time of evaluation Final Primary Anesthesia Type: MAC (The anesthetic type performed was the same as planned.) Comments: Roberto Monroe MD * Anesthesia Preprocedure Evaluation - Roberto Monroe MD - 03/06/2020 6:32 AM EDT Pre-Anesthesia Evaluation for: Gt Aguilar a 69 y.o. male. Procedure(s): EGD, UPPER GI ENDOSCOPY Patient Active Problem List Diagnosis ??? Severe protein-calorie malnutrition >5% weight loss in 1 month and Moderate lean muscle loss is consistent with severe protein-calorie malnutrition in the setting of acute illness or injury (Brandy et al, JPEN J Parenteral Enteral Nutr. 2012 November; 36(3): 273-83) ??? Tobacco use disorder ??? Bladder cancer ??? HTN (hypertension) ??? PVD (peripheral vascular disease) Hx aortoiliac endarterectomy. ??? Alcohol abuse ??? Smokes 2 packs of cigarettes per day ??? HLD (hyperlipidemia) ??? COPD, moderate ??? Weight loss, abnormal ??? Limited literacy ??? Port-A-Cath in place ??? Ostomy nurse consultation ??? 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 Malignant neoplasm of overlapping sites of bladder Past Medical History: Diagnosis Date ??? Asthma [...] fall off a doroteo) in 1990 [place] he woke up during the procedure [...] CT Guided Biopsy Lymph Node (Chest/Abd/Pelvis) 01/31/2020 [facility] RAD CAT SCAN ??? HIP FRACTURE SURGERY Right 1991 ??? INGUINAL HERNIA REPAIR Right ??? IR G-TUBE PLACEMENT 02/28/2020 IR G-Tube Placement 02/28/2020 Toño Carmichael MD [facility] INTERVENTIONL RAD ??? IR MEDIPORT PLACEMENT/EXCHANGE 11/27/2019 IR Mediport Placement 11/27/2019 Jason Lujan PA [facility] INTERVENTIONL RAD ??? PRO CYSTECTOMY, ILEAL CONDUIT/SIGMOID BLADDER N/A 02/13/2020 @CYSTECTOMY, COMPLETE, WITH ILEAL CONDUIT (WRVU 36.33) performed by Stephan Armstrong MD at [facility] LYNETTE ??? PRO NEEDLE BIOPSY LIVER N/A 02/13/2020 LIVER BIOPSY performed by Stephan Armstrong MD at [facility] MAIN OR ??? PRO REMOVE PELVIS LYMPH NODES Bilateral 02/13/2020 @LYMPHADENECTOMY, PELVIC, INCLUDING MULTIPLE NODES-FELA (WRVU 14.06) performed by Stephan Armstrong MDat [facility] MAIN OR Social History Tobacco Use ??? Smoking status: Current Every Day Smoker Packs/day: 2.00 Years: 50.00 Pack years: 100.00 ??? Smokeless tobacco: Never Used Substance Use Topics ??? Alcohol use: Yes Alcohol/week: 14.0 standard drinks Types: 14 Standard drinks or equivalent per week Comment: 2 Social History Substance and Sexual Activity Drug Use Not Currently Allergies Allergen Reactions ??? Wellbutrin [Bupropion Hcl] Other (See Comments) Unknown on pt's chart from outside facility Medications: MAR and/or home medications have been reviewed. Physical Exam: Patient Vitals for the past 24 hrs: Temp Heart Rate From SP02 Pulse Resp BP SpO2 O2 Device 03/05/20 0717 36.4 ??C (97.5 ??F) 69 bpm 68 20 126/75 100 % RA 03/05/20 0958 -- -- 85 -- -- -- -- 03/05/20 1203 36.4 ??C (97.5 ??F) 82 bpm 82 19 120/77 99 % RA 03/05/20 1554 36.4 ??C (97.5 ??F) 95 bpm 99 19 104/73 98 % RA 03/05/20 2135 -- 90 bpm -- -- -- -- -- 03/06/20 0031 36.6 ??C (97.9 ??F) 82 bpm -- 20 108/66 99 % RA 03/06/20 0512 36.4 ??C (97.5 ??F) 88 bpm -- 20 114/76 99 % RA Body mass index is 17.88 kg/m??. Height: 167.6 cm (5' 6) Weight: 50.3 kg (110 lb 12.8 oz) Airway Assessment: Mallampati: I Cardiovascular Assessment: cardiovascular exam normal Pulmonary Assessment: pulmonary exam normal Dental Assessment: (+) upper dentures and lower dentures Misc Assessment: IV access: Peripheral line Anesthesia Plan: ASA 3 MAC, with a(n) intravenous induction 69yo M heavy lifelong smoker now 21 days s/p cystectomy having continued N/V and inability to take PO meds to endo for EGD. Pt also being treated for infectious diarrhea this admission BMI 20, COPD (albuterol and combivent), HTN (metoprolol, atenolol), etoh use (14 drinks/week), bladder cancer with mediport (on cisplatin and gemcitabine) TTE on 01/25/20 Normal LV/RV, EF 71, Normal LA, no valvulopathies Tolerated GA for cystectomy. Proven airway Plan MAC Region - Other Informed Consent: Anesthetic plan and risks discussed with patient. Plan discussed with attending and HOISTING ENGINEER PILE DRIVING. PAT Clinic Note documented in this encounter Miscellaneous Notes * Addendum Note - Roberto Monroe MD - 03/06/2020 3:04 PM EDT Addendum created 03/06/20 1504 by Roberto Monroe MD Clinical Note Signed documented in this encounter Plan of Treatment Upcoming Encounters Date Type Department Care Team (Late st Contact Info) Description 08/15/2024 11:30 AM EST Office Visit Hematology/Oncology at [address] [phone] Chanelle Kim [facility] [place] [address] Bee Curry [facility] [place] [address] documented as of this encounter Visit Diagnoses Not on filedocumented in this encounter Administered Medications Inactive Administered Medications - up to 3 most recent administrations Medication Order MAR Action Action Date Dose Rate Site lactated ringers infusion CONTINUOUS PRN, Starting on Wed03/06/20 at 0811, Until Wed03/06/20 at 0837, Anesthesia Intra-op New Bag 03/06/2020 8:11 AM EDT propofol (DIPRIVAN) 10 mg/mL bolus injection (Anesthesia) PRN, Starting on Wed03/06/20 at 0815, Until Wed03/06/20 at 0837, Anesthesia Intra-op Given 03/06/2020 8:15 AM EDT 60 mg propofol (DIPRIVAN) infusion CONTINUOUS PRN, Starting on Wed03/06/20 at 0815, Until Wed03/06/20 at 0837, Anesthesia Intra-op, Routine New Bag 03/06/2020 8:15 AM EDT 100 mcg/kg/min 30.2 mL/hr documented in this encounter Care Teams Genetic Coordinator Relationship Specialty Start Date End Date Subhash Dowling MD [address] [place] [id number] PCP - General 06/03/10 documented as of this encounter
--- OUTSIDE RECORDS SUMMARY | 2024-08-15 01:35 | XMS_ITS | Encounter Summary ---
Author Organization [facility] [place] [address] Care Team Providers Care Eligibility Clerk Name Role Phone Subhash Dowling MD Primary Care Provider Encounter Details Date Type Department Care Team (Late Contact Info) Description 02/14/2020 11:59 PM EDT Anesthesia Event [address] [place] [phone] Checo Chicas RN Anesthesia Record Procedure Summary Procedure Name Responsible Anesthesiologist Anesthesia Start Time Anesthesia Stop Time Acute Pain Medicine Service (consult) Events No events on file. Meds * Agents No agents on file. * Blood No blood administrations on file. Lines, Drains, and Airways No LDAs on file. documented in this encounter Social History Tobacco [...] AM EST Office Visit Hematology/Oncology at [address] [phone] Chanelle Kim APRN [facility] [place] [address] Bee Curry APRN [facility] [place] [address] documented as of this encounter Visit Diagnoses Not on filedocumented in this encounter Care Teams Eligibility Clerk Relationship Specialty Start Date End Date Subhash Dowling MD [address] [place] [phone] PCP - General 06/03/10 documented as of this encounter
--- OUTSIDE RECORDS SUMMARY | 2024-08-15 01:35 | XMS_ITS | Encounter Summary ---
Author Organization [facility] Address [facility] [place] [address] Care Team Providers Care Desktop Publishing Operator Name Role Phone Subhash Dowling MD Primary Care Provider [phone] Reason for Visit * Auth/Cert Specialty Diagnoses / Procedures Referred By Haroldo t Referred To Contact Diagnoses Bladder cancer Bladder Cancer . Procedures PRO CYSTECTOMY, ILEAL CONDUIT/SIGMOID BLADDER @CYSTECTOMY, COMPLETE, WITH ILEAL CONDUIT (WRVU 36.33) Referral ID Status Reason Start Date Expiration Date Visits Re quested Visits Authorized [id number] 1 1 Encounter Details Date Type Department Care Team (Late st Contact Info) Description 03/06/2020 7:30 AM EDT - 03/06/2020 8:15 AM EDT Surgery [place] [address] Chato York MD [facility] [place] [address] EGD WITH BIOPSY (WRVU 2.39) Social History Tobacco Use Types Packs/Day Years [...] Sign Reading Time Taken Comments Blood Pressure 127/76 03/06/2020 8:07 AM EDT Pulse 90 03/06/2020 8:07 AM EDT Temperature 36.4 ??C (97.6 ??F) 03/06/2020 8:07 AM ED T Respiratory Rate 18 03/06/2020 8:07 AM EDT Oxygen Saturation 100% 03/06/2020 8:07 AM EDT Inhaled Oxygen Concentration - - Weight 50.3 kg (110 lb 12.8 oz) 03/06/2020 5:12 AM EDT Height 167.6 cm (5' 6) 02/14/2020 6:27 PM EDT Body Mass Index 15.88 02/14/2020 6:27 PM EDT documented in this encounter Discharge Summaries * Roselia Castro PA - 03/07/2020 1:31 PM EDT [X] F/u in [address] Armstrong, requested Discharge Summary Patient Name: Wally Aguilar Patient Age: 69 y.o. Language: East Timorese Race: White Ethnicity: Not nor Admit date: [...] Hospital Course: Patient was admitted electively to [facility] via the same day surgery program and [...] Given to Patient at Discharge: Patient Instructions [facility] - Department of Urologic Surgery Patient Discharge [...] or stool. The number for questions is [phone] before 5 PM weekdays and [phone] after 5 PM and weekends. Activity level: [...] in the Urologic Surgery Outpatient Clinic - Charter Coach Driver in 1 -2 weeks for labs and post op check. Confirmation of yourappointment will be sent to you. Please call [phone] (clinic number for appointments) to confirm date and time of your appointment if you do not receive your appointment in 2-3 days. Follow-up Appointments: Future Appointments Date Time Provider Department Center 03/22/2020 12:[address] [facility] [address] [facility] Rad 03/22/2020 1:30 PM John Hooper MD [facility] V SURG [facility] 04/02/2020 2:00 PM Aries Quiñones MD [facility] Clin Urologic Surgery: [phone] Department of Urologic Surgery ??? [facility] ??? [address] ??? [place] [address] ??? [phone] ~~~~~~~~~~~~~~~~~~~~~~~~~~~~~~~~~~~~~~~~~~~~~~~~~~~~~~~~~~~~~~~~~~~ General Instructions How to obtain Ostomy Supplies: New Ostomy patients will be discharged home with 5 pouch changes. Medicare patients who are to be discharged home with Visiting Nurses(VNA) will have their Ostomy supplies ordered by VNA until they discontinue care. [facility] Nursing[facility]ceed with calling Insurance company to get [...] using -Name of Surgeon and telephone number [employer] Surgical (www.FitBark) Pad Tufter: Zaida Kasia [phone] Thermedical (www.SquareClock) PPDai (Algotochip.Time To Cater) Halfpenny Technologies (www.Mis Descuentos.DOMAIN Therapeutics/welcome Comfort Medical (www.comfortmedical.com) [place] [employer] (www.FlickIMedicalproducts.net) CrownPeak (Algotochip.VBI Vaccines) *If you wear Naveen products and are having a difficult time finding a vendor that will accept your Insurance you may call Naveen at . They have a team of 30 Insurance experts whowill help you find a vendor that can bill your Insurance Company. Remember, if they need to return your call expect a call from [place], in case you are screening your calls. [...] with Urostomy When to call your Ostomy Nurse/MSilva. Change in Color: The stoma should always [...] Ostomy Nurse a call. Ileal Conduit Pouching: Putney 2-piece pouch Name: Wally Aguilar Type of Ostomy: Urostomy Use this procedure as a guide when changing your appliance. Read all instructions, assemble all equipment, and empty contents from pouch before beginning actual change. If you have questions, do not hesitate to call the Ostomy Nurses at [phone]. Equipment: Company/Order Numbers Wet and dry soft cloth (paper towels) Plastic bag Pen, Scissors, stoma patter Appliance pouch Naveen 1 09/12 #32516 Wafer, Cera Plus Putney 1 09/12 #60248 Protective powder Naveen # 7906 Adapt Paste Putney # 27369 Nosting Skin Barrier Wipe [facility] # 255953 Barrier ring Naveen # 7805 Barrier strips Coloplast # [id number] Night Drainage Educational Recruiter Bard #454836 (catheter bag) OR [facility] night drainage container set #119554 (hard plastic container) Procedure: 1. Wash Hands. [...] apply a dusting of Adapt protective powder. [place] off excess powder, or wafer will not [...] use; hang to dry. Change night drainage outside collector once a month. [facility] Interventional Radiology Discharge Instructions for Feeding Tube [...] or its attachments. INTERVENTIONAL RADIOLOGY PHONE NUMBERS [phone] If you have a NON Low profile feeding tube, call with any questions or concerns. During regular office hours call: [phone]. If it is after regular office hours, weekends or holidays, please call [phone] and ask to speak to the Meteorology Instructor credit administration officer for Interventional Radiology. If you have a low profile ???SEAMUS-WILSON?? feeding tube, please call Maria Luisa Mace RN for any issues: [phone]. Revised 04/27/1903/06 Psychiatry Consult Assessment: Patient is a 69 YO M with history of bladder cancer (s/p recent chemotherapy), malnutrition, HTN, HLD, peripheral vascular disease, and asthma who presented to [facility] for cystoprostatectomy with ileal conduit on 02/12.??Patient's [...] Provider Department Dept Phone 03/22/2020 12:00 [address] [facility] CT 4 CAT Scan at [facility] Arrive at: INTERVENTIONAL RADIOLOGY [phone] Please arrive at the Lab 1 Hour and 15 Minutes prior to your scheduled time if your labs need to betaken. 03/22/2020 1:30 PM John Hooper MD Vascular Surgery at [facility] Arrive at: [employer] Driver Area 04/02/2020 2:00 PM Chanelle Kim APRN; Aries Quiñones MD Hematology/Oncology at [facility] Arrive at: [facility] door at end of hallway [phone] Future Orders Complete By Expires CBC (with Diff) [[id number] Custom] 03/14/2020 (Approximate) 04/07/2020 Process Instructions: INCLUDES: WBC, RBC, Hgb, Hct, Platelets, RBC Indices and Differential Scheduling Instructions: Comments: Questions: Comprehensive metabolic panel (non-fasting) [[id number] Custom] 03/14/2020 (Approximate) 04/07/2020 Process Instructions: INCLUDES: Calcium, T Protein, Albumin, AST, ALT, Alk Phos, T Bili, BUN, Creat, GFR, Glucose, Lytes. Scheduling Instructions: Comments: Questions: CT Angiogram Aortic Lower Extremity Runoff [[id number] Custom] 03/16/2020 08/16/2020 Process Instructions: Scheduling Instructions: Comments: Would like to include abdomen and pelvis with full bilateral lower extremity runoff Questions: Where will study be performed?: [facility] Radiology Reason for exam and clinical history: Bilateral LE claudication Clinical information / wilson questions: Stat read required?: Does patient require sedation?: GA rationale: Date of injury if applicable: Requested Time: Follow-Up: Future Appointments Date Time Provider Department Center 03/22/2020 12:00 [address] [facility] [address] [facility] Rad 03/22/2020 1:30 PM John Hooper MD [facility] V SURG [facility] 04/02/2020 2:00 PM Aries Quiñones MD [facility] Primary Care Provider: Subhash Dowling MD [phone] Call your doctor if: Please call your [...] was managed by the Urology Team at [facility]. If you have any questions or concerns, please feel free to contact us. Provider Contact Information: Urology Clinic: [facility] (after business hours): documented in this encounter [...] using -Name of Surgeon and telephone number [employer] Surgical (www.FitBark) Pad Tufter: Zaida Pedroza [phone] Thermedical (www.SquareClock) PPDai (JMEA) Halfpenny Technologies (www.Casualing/welcome IndianRoots Medical (www.comfortConexus-IT) DataParenting (www.Trusted Opinion.Foxfly) CrownPeak (Liquiverse) *If you wear Immune System Therapeutics products and are having a difficult time finding a vendor that will accept your Insurance you may call Immune System Therapeutics at . They have a team of 30 Insurance experts whowill help you find a vendor that can bill your Insurance Company. Remember, if they need to return your call expect a call from [place], in case you are screening your calls. [...] with Urostomy When to call your Ostomy Nurse/M.DHarvinder Change in Color: The stoma should always [...] Ostomy Nurse a call. Ileal Conduit Pouching: Naveen 2-piece pouch Name: Wally Aguilar Type of Ostomy: Urostomy Use this procedure as a guide when changing your appliance. Read all instructions, assemble all equipment, and empty contents from pouch before beginning actual change. If you have questions, do not hesitate to call the Ostomy Nurses at [phone]. Equipment: Company/Order Numbers Wet and dry soft cloth (paper towels) Plastic bag Pen, Scissors, stoma patter Appliance pouch Naveen 1 3/4 #85136 Wafer, Cera Plus Naveen 1 3/ #84431 Protective powder Putney # 7906 Adapt Paste Putney # 40298 Nosting Skin Barrier Wipe [facility] # 186575 Barrier ring Naveen # 2225 Barrier strips Coloplast # 265322 Night Drainage Educational Recruiter Bard #543096 (catheter bag) OR [facility] night drainage container set #354851 (hard plastic container) Procedure: 1. Wash Hands. [...] apply a dusting of Adapt protective powder. [place] off excess powder, or wafer will not [...] use; hang to dry. Change night drainage outside collector once a month. [facility] Interventional Radiology Discharge Instructions for Feeding Tube [...] or its attachments. INTERVENTIONAL RADIOLOGY PHONE NUMBERS [phone] If you have a NON Low profile feeding tube, call with any questions or concerns. During regular office hours call: [phone]. If it is after regular office hours, weekends or holidays, please call [phone] and ask to speak to the Meteorology Instructor credit administration officer for Interventional Radiology. If you have a low profile ???SEAMUS-WILSON?? feeding tube, please call Maria Luisa Mace RN for any issues: [phone]. Revised 04/27/1903/06 Psychiatry Consult Assessment: Patient is a 69 YO M with history of bladder cancer (s/p recent chemotherapy), malnutrition, HTN, HLD, peripheral vascular disease, and asthma who presented to [facility] for cystoprostatectomy with ileal conduit on 02/12.??Patient's [...] Castro PA - 03/06/2020 11:51 AM EDT [facility] - Department of Urologic Surgery Patient Discharge [...] or stool. The number for questions is [phone] before 5 PM weekdays and [phone] after 5 PM and weekends. Activity level: [...] in the Urologic Surgery Outpatient Clinic - [employer] in 1 -2 weeks for labs and post op check. Confirmation of yourappointment will be sent to you. Please call [phone] (clinic number for appointments) to confirm date and time of your appointment if you do not receive your appointment in 2-3 days. Follow-up Appointments: Future Appointments Date Time Provider Department Center 03/22/2020 12:[address] [facility] [address] [facility] Rad 03/22/2020 1:30 PM John Hooper MD [facility] V SURG [facility] 04/02/2020 2:00 PM Aries Quiñones MD [facility] Hem Off [place] Clin Urologic Surgery: [phone] Department of Urologic Surgery ??? [facility] ??? [address] ??? [place] [address] ??? [phone] ~~~~~~~~~~~~~~~~~~~~~~~~~~~~~~~~~~~~~~~~~~~~~~~~~~~~~~~~~~~~~~~~~~~ documented in this encounter Medications at [...] No PDMP Review Only APS Nurse: Nelson Chicas, RN * Wendy King RN - 03/07/2020 2:56 PM EDT Port de-accessed per protocol. IV D/C'd per protocol - catheter intact. Pt d/c'd to [facility] via ambulance. Report called to KEYA Patterson at [phone]. Pt's VSS, no c/o pain, CP, SOB, no acute distress noted. * Lizbeth Abdi RN - 03/07/2020 10:58 AM EDT OFFICE OF CARE MANAGEMENT Mechanical Systems Control Engineer Discharge Note Lizbeth Abdi RN reviewed record [...] discharge today. Patient will be transported to [facility] for rehab via ambulanc at 3pm today. Updated brother David of discharge via telephone. Updated Demo screen withbrother's correct phone. Team updated Current Referral in place: [facility] Rehab Transportation: Ambulance will drive patient to [...] feel that they are not medically ready. Mechanical Systems Control Engineer to follow with team and family to [...] 12:31 PM EDT OFFICE OF CARE MANAGEMENT Mechanical Systems Control Engineer Follow-up Note Lizbeth Abdi RN reviewed record [...] information> [facility] Transportation: Ambulance will drive patient to rehab when medically ready. Mechanical Systems Control Engineer to follow with team and family to [...] to Wally Aguilar on 03/06/20 (Lot # [id number], Exp. 07/12/2020). Signed: Brooke Pearce APRN Surgical Oncology Service Team Pager #[phone] 03/06/20 11:45 AM * Soniya Christine - 03/06/2020 11:08 AM EDT Office of Care Management/Coil Former Patient Name: Wally Aguilar : 1950 Patient has been offered a snf bed at [facility] Ambulance arranged for a 1500 transport. Ambulance will need: Medicare ambulance form completed and signed (MD or Mechanical Systems Control Engineer RN/MANAGER SALES AND MARKETING) Copy of patient demographics [place] Out of Hospital DNR/DNI order, if active No MD to MD report necessary Please call Nursing Report to [phone], ask for glass pulverizer equipment operator. Info to accompany patient: Narcotic Prescriptions Copies of Medication Administration Records and IV sheets for past 10 days. Plan: Coil Former will be available to the patient and Mechanical Systems Control Engineer-RN and/or Social Workerfor further assistance. Patient will be discharged to: [address] [address] Dayna Gutierrez * Roselia Castro PA - [...] ?? Psychiatry managing methylphenidate dose titration ?? mechanical laboratory technician reports patient is participating actively in ostomy [...] base with ID Continue to work with it communications manager and PT Continue to suggest shower, hygiene, activity, getting outside PLAN: Neuro: pain control: tylenol and tramadol prn, lidoderm patch Psych: Ritalin titrating up. Chantix with water bolus. Card: HDS, Monitor vital signs, [id number], statin, Toprol XL Pulm: albuterol, ambulation, IS. FEN: replete lytes prn, strict I/O's GI: Marinol for appetite stimulant, NPO diet (Give Meds),compazine, protonix, tums Renal/: monitor urine output. Routine ostomy care. Heme: ESR and sed rate elevated as expected given active infection and post surgical ID: Miconazole ointment to scrotum, azithromycin (done 03/04) & nitazoxanide (until 03/07) for infectious diarrhea ([id number] day courses) Endo: Vit D repletion, 50K [...] 01/25/2020 CRP 13.0 02/29/2020 CRP 1.2 01/25/2020 [id number] 02/28/2020 25OHVITD 15 (L) 02/28/2020 SFOLATE [...] kg (113 lb 5.1 oz). BMI 16.4 [place] Body Weight: 142 lbs / 64.4 kg [...] line): Not assessed Lean muscle loss to Restorationism region (temporalis muscle): None present Clavicle bone [...] hartman al, JPEN J Parenteral Enteral Nutr. 2012 November; 36(3): 273-83) Nutrition to continue to follow up while inpatient Donte Sheffield RD Pager #:[phone] * Lizbeth Abdi RN - 03/05/2020 11:43 AM EDT OFFICE OF CARE MANAGEMENT Mechanical Systems Control Engineer Follow-up Note Lizbeth Abdi RN reviewed record [...] looking at patient. Updated Indy Bird RN Tuber Helper of discharge plan. Transportation: Ambulance will drive patient home via private vehicle when medically ready. Mechanical Systems Control Engineer to follow with team and family to [...] by Psychiatry, titrating up on methylphenidate ?? mechanical laboratory technician reports patient is participating actively in ostomy [...] positive stool cultures Continue to work with it communications manager and PT Continue to suggest shower, hygiene, activity PLAN: Neuro: pain control: tylenol and tramadol prn, lidoderm patch Psych: Ritalin titrating up. Chantix with water bolus. Card: HDS, Monitor vital signs, [id number], statin, Toprol XL Pulm: albuterol, ambulation, IS. FEN: replete lytes prn, strict I/O's GI: Marinol for appetite stimulant, Regular diet,compazine, protonix, tums Renal/: monitor urine output. Routine ostomy care. Heme: ESR and sed rate elevated as expected given active infection and post surgical ID: Miconazole ointment to scrotum, azithromycin (done 03/04) & nitazoxanide (until 03/07) for infectious diarrhea ([id number] day courses) Endo: Vit D repletion, 50K [...] Psychiatry, started on methylphenidate and melatonin ?? mechanical laboratory technician reports patient is participating actively in ostomy [...] positive stool cultures Continue to work with it communications manager and PT Continue to suggest shower, hygiene, activity PLAN: Neuro: pain control: tylenol and tramadol prn, lidoderm patch Psych: Ritalin titrating up Card: HDS, Monitor vital signs, [id number], statin, Toprol XL Pulm: albuterol, ambulation, IS FEN: replete lytes prn, strict I/O's GI: Marinol for appetite stimulant, Regular diet,compazine, protonix, tums Renal/: monitor urine output. Routine ostomy care. Heme: ESR and sed rate elevated as expected given active infection and post surgical ID: Miconazole ointment to scrotum, azithromycin (done today 03/04) & nitazoxanide for infectious diarrhea ([id number] day courses) Endo: Vit D repletion Home [...] 12:02 PM EDT OFFICE OF CARE MANAGEMENT Mechanical Systems Control Engineer Follow-up Note Lizbeth Abdi, RN reviewed record and discussed patient with [...] - Inpatient <no information> Call placed to [facility] and I spoke with Indy. They are unable to offer a bed to patient today due to staffing. Call placed to [facility] and I spoke with Adrienne. No beds available til the end of week. I spoke with patient and putting in new referrals. Asked Roselia to get new Covid test today in anticipation of discharge tomorrow. No bed offer as of yet. Based on discussions with the multi-disciplinary healthcare team, the patient would benefit from jail level of care at discharge. ?? I [...] ?? The patienthave requested referrals to: 1. [facility] [address] [place] [address] ?? [phone] 2. [facility] [address] [place] [address] ?? 3. [facility] [address] [place] [address] ?? [phone] ?? Expected date of discharge: 03/04/2020 Note routed to Coil Former who will communicate referrals to facilities and provide any required information. Transportation: Ambulance/w/c van will drive patient home via private vehicle when medically ready. Mechanical Systems Control Engineer to follow with team and family to [...] Psychiatry, started on methylphenidate and melatonin ?? mechanical laboratory technician reports patient is participating actively in ostomy [...] positive stool cultures Continue to work with it communications manager and PT Continue to suggest shower, hygiene, activity PLAN: Neuro: pain control: tylenol and tramadol prn, lidoderm patch Card: HDS, Monitor vital signs, [id number], statin, Toprol XL Pulm: albuterol, ambulation, IS FEN: replete lytes prn, strict I/O's GI: Marinol for appetite stimulant, Regular diet,compazine, protonix, tums Renal/: monitor urine output. Routine ostomy care. Heme: ESR and sed rate elevated as expected given active infection and post surgical ID: Miconazole ointment to scrotum, azithromycin & nitazoxanide for infectious diarrhea ([id number] day courses) Endo: no active issues Home [...] Psychiatry, started on methylphenidate and melatonin ?? mechanical laboratory technician reports patient is participating actively in ostomy [...] vascular disease, and asthma who presented to [facility] for cystoprostatectomy with ileal conduit on 02/12. [...] continue to follow - page Consult Psychiatry (#[id number]) for any additional questions or concerns ASSESSMENT: [...] positive stool cultures Continue to work with it communications manager and PT Continue to suggest shower, hygiene, activity Remove remaining irvin PLAN: Neuro: pain control: tylenol and tramadol prn, lidoderm patch Card: HDS, Monitor vital signs, [id number], statin, Toprol XL Pulm: albuterol, ambulation, IS [...] underway (nutrition recommends through mid April) ?? mechanical laboratory technician reports patient is participating actively in ostomy [...] vascular disease, and asthma who presented to [facility] for cystoprostatectomy with ileal conduit on 02/12. [...] continue to follow - page Consult Psychiatry (#[phone]) for any additional questions or concerns ASSESSMENT: [...] positive stool cultures Continue to work with it communications manager and PT Continue to suggest shower, hygiene, activity Remove remaining irvin PLAN: Neuro: pain control: tylenol and tramadol prn, lidoderm patch Card: HDS, Monitor vital signs, [id number], statin, Toprol XL Pulm: albuterol, ambulation, IS FEN: replete lytes prn, strict I/O's GI: Marinol for appetite stimulant, Regular diet,compazine, protonix, tums Renal/: monitor urine output. Routine ostomy care. Heme: no active issues ID: Miconazole ointment to scrotum, azithromycin & nitazoxanide for infectious diarrhea ([id number] day courses) Endo: no active issues Home [...] healthcare team, the patient would benefit from jail level of care at discharge. Patient agreed to put referral in for swing closer to his home. ?? I have met with the patient to discuss discharge planning needs. I have provided the [facility], Office of Care Management letter from the Car Wash Supervisor pertaining to rehab referrals. I have also provided a letter describing our affiliations within the [facility] and educatedthem about their right to choose where referrals are. ?? Provided patient with CMS Star Quality Rating for SNF, LTAC and/or [...] to: 1. [facility]) [address] [place] [address] (Accepts pts only after exhausting all other local SNF options Only pts from their area with PCP at the Hospital ?? Maximum rehab stay of 5 days) 2. [facility] ([facility]) [address] [place] [address] ?? (Accepts pts 3-5 days max) ? Expected date of discharge: 03/04/2020 Note routed to Coil Former who will communicate referrals to facilities and [...] w/ whole milk, Magic cup ice cream, Kyrgyz yogurt, etc- but taking little Will note [...] 01/25/2020 CRP 13.0 02/29/2020 CRP 1.2 01/25/2020 [id number] 02/28/2020 25OHVITD 15 (L) 02/28/2020 SFOLATE [...] kg (101 lb 9.6 oz). BMI 16.4 [place] Body Weight: 142 lbs / 64.4 kg [...] line): Not assessed Lean muscle loss to Restorationism region (temporalis muscle): None present Clavicle bone [...] willing to try CIB with whole milk, Kyrgyz yogurt, Gutierrez Magic Cups. He prefers whole [...] the setting of acute illness or injury (CORNELL Mccarty J Parenteral Enteral Nutr. 2012 November; 36(3): 273-83) Nutrition to continue to follow up while inpatient DARIELA PEREIRA RD Pager #:[phone] * Roberto Bradshaw DO - 02/29/2020 1:20 PM EDT INTERVENTIONAL RADIOLOGY [...] release in 7-10 days (ordered and IR flight crew scheduler notified). 2) IR will sign-off at [...] was able to discuss plan with provider 2887. Nutrition Support: TPN Medication Recent History (Show up to 3 orders; newest on the left. Changes between the two most recent orders are indicated.) Start date and time 02/28/2020 1800 02/27/2020 1415 02/26/2020 1800 TPN Adult [[id number]] TPN Adult [[id number]] TPN Adult [[id number]] Order Status Active Discontinued Discontinued Last Admin [...] 02/20/2020 TRIG 126 01/25/2020 CRP 1.2 01/25/2020 [id number] 765 02/28/2020 25OHVITD 15 (L) 02/28/2020 SFOLATE [...] encounter: 51.4 kg (113 lb 6.4 oz). [place] Body Weight: 63.8 kg Usual Body Weight: [...] 9.6 oz) Assessment: Estimated needs: Calories: 25-30 (0589-6082 kcal/kg) Protein: 2 grams (115g/kg) Nutrition Focused Physical Exam (NFPE): Performed on 02/19/20. Subcutaneous fat loss at Orbital region: Mild Upper arm region (triceps/biceps): Mild Thoracic and lumbar region (ribs, lower back and maxillary line): Mild Lean muscle loss to Restorationism region (temporalis muscle): Moderate Clavicle bone region [...] the setting of acute illness or injury (CORNELL Mccarty J Parenteral Enteral Nutr. 2012 November; 36(3): 273-83) Nutrition to continue to follow up while inpatient. ZAIRA RONDON RD Pager #:[phone] * Roselia Castro PA - 02/29/2020 11:03 [...] taste and swallowing issues. Was seen by DRINKING WATER TECHNICIAN several weeks ago, no mechanical issues found. ?? Loose incontinent BM x 3 in past 24 hours, crypto & campylobacter + ?? Remains on TPN, cycled overnight ?? Ambulating minimally ?? Denies pain ?? Seen by Psychiatry, started on methylphenidate and melatonin, increasing methylphenidate dosing today ?? Vit D result shows deficiency ?? mechanical laboratory technician reports patient is participating actively in ostomy [...] vascular disease, and asthma who presented to [facility] for cystoprostatectomy with ileal conduit on 02/12. [...] continue to follow - page Consult Psychiatry (#[phone]) for any additional questions or concerns ASSESSMENT: [...] work to advance mobility with PT/OT and [facility] staff. Patient resistant to the idea of [...] positive stool cultures Continue to work with it communications manager and PT PLAN: Neuro: pain control: tylenol and tramadol prn, lidoderm patch Card: HDS, Monitor vital signs, [id number], statin, Toprol XL Pulm: albuterol, ambulation, IS [...] w/ whole milk, Magic cup ice cream, Kyrgyz yogurt, etc Will offer whole milk on [...] of this encounter: 54.9 kg (121 lb). [place] Body Weight: 142 lbs / 64.4 kg [...] line): Not assessed Lean muscle loss to Restorationism region (temporalis muscle): None present Clavicle bone [...] willing to try CIB with whole milk, Kyrgyz yogurt, Gutierrez Magic Cups. He prefers whole [...] the setting of acute illness or injury (CORNELL Mccarty J Parenteral Enteral Nutr. 2011; 36(3): 273-83) Nutrition to continue to follow up while inpatient DARIELA PERIERA RD Pager #:[phone] * Zaira Rondon RD - 02/28/2020 12:19 [...] was able to discuss plan with provider 2887. Nutrition Support: TPN Medication Recent History (Show up to 3 orders; newest on the left. Changes between the two most recent orders are indicated.) Start date and time 02/28/2020 1800 02/27/2020 1415 02/26/2020 1800 TPN Adult [[id number]] TPN Adult [[id number]] TPN Adult [[id number]] Order Status Active Discontinued Discontinued Last Admin New Bag at 02/27/2020 182 by Soniya Moss RN New Bag at [...] of this encounter: 54.9 kg (121 lb). [place] Body Weight: 63.8 kg Usual Body Weight: [...] 9.6 oz) Assessment: Estimated needs: Calories: 25-30 (6966-9326 kcal/kg) Protein: 2 grams (115g/kg) Nutrition Focused Physical Exam (NFPE): Performed on 02/19/20. Subcutaneous fat loss at Orbital region: Mild Upper arm region (triceps/biceps): Mild Thoracic and lumbar region (ribs, lower back and maxillary line): Mild Lean muscle loss to Restorationism region (temporalis muscle): Moderate Clavicle bone region [...] up while inpatient. ZAIRA RONDON RD Pager #:[phone] * Lizbeth Abdi RN - 02/28/2020 11:33 AM EDT OFFICE OF CARE MANAGEMENT Mechanical Systems Control Engineer Follow-up Note Lizbeth Abdi RN reviewed record [...] 03/04/2020 ifmedically ready. Current Referral in place: Cynthia Martinez and HA to support tube feeds Transportation: Tray Hdez will drive patient home via private vehicle when medically ready. Support: Tray Hdez Mechanical Systems Control Engineer to follow with team and family to assist with discharge needs when patient ready for discharge. Lizbeth Abdi RN Case Management pgr [phone] * Gail Lara RN - 02/28/2020 10:38 AM EDT [facility] NURSING DATABASE Name: WALLY AGUILAR Date of : 1950 AGE: 69 y.o. Address: [address] [address] (home) Mobile: Telephone Information: Referring Provider: Subhash [...] vascular disease, and asthma who presented to [facility] for cystoprostatectomy with ileal conduit on 02/12. [...] continue to follow - page Consult Psychiatry (#[phone]) for any additional questions or concerns ASSESSMENT: [...] positive stool cultures Continue to work with it communications manager and PT PLAN: Neuro: pain control: tylenol and tramadol prn, lidoderm patch Card: HDS, Monitor vital signs, [id number], statin, Toprol XL Pulm: albuterol, ambulation, IS [...] w/ whole milk, Magic cup ice cream, Kyrgyz yogurt, etc Will offer whole milk on all trays Will note food prefs in diet office New wt requested- much appreciated Discussed above w/ A. Gloria PA via secure chat Active Orders Diet Regular [...] of this encounter: 54.9 kg (121 lb). [place] Body Weight: 142 lbs / 64.4 kg [...] line): Not assessed Lean muscle loss to Restorationism region (temporalis muscle): None present Clavicle bone [...] willing to try CIB with whole milk, Kyrgyz yogurt, Gutierrez Magic Cups. He prefers whole [...] up while inpatient DARIELA PEREIRA RD Pager #:[phone] * Zaira Rondon RD - 02/27/2020 12:49 PM EDT Nutrition Progress Note Patient s/p from a cystoprostatectomy with ileal conduit for MIBC Wally Aguilar is a 69 y.o. male Reason for intervention: TPN Comments: Cyclic TPN to provide full nutrition of 1460 calores and 115 g protein in 1248 ml. `No TPN changes today. I was able to discuss plan with provider [id number]. Nutrition Support: TPN Medication Recent History (Show up to 3 orders; newest on the left. Changes between the two most recent orders are indicated.) Start date and time 02/26/2020 1800 02/23/2020 1800 02/22/2020 1800 TPN Adult [[id number]] TPN Adult [[id number]] TPN Adult [[id number]] Order Status Active Discontinued Last Admin New [...] of this encounter: 54.9 kg (121 lb). [place] Body Weight: 63.8 kg Usual Body Weight: [...] 9.6 oz) Assessment: Estimated needs: Calories: 25-30 (4764-5037 kcal/kg) Protein: 2 grams (115g/kg) Nutrition Focused Physical Exam (NFPE): Performed on 02/19/20. Subcutaneous fat loss at Orbital region: Mild Upper arm region (triceps/biceps): Mild Thoracic and lumbar region (ribs, lower back and maxillary line): Mild Lean muscle loss to Restorationism region (temporalis muscle): Moderate Clavicle bone region [...] the setting of acute illness or injury (Bibiana JPEN J Parenteral Enteral Nutr. 2012 November; 36(3): 273-83) Nutrition to continue to follow up while inpatient. ZAIRA RONDON RD Pager #:[phone] * Roselia Castro PA - 02/27/2020 10:25 [...] positive stool cultures Continue to work with it communications manager PLAN: Neuro: pain control: tylenol and tramadol prn, lidoderm patch Card: HDS, Monitor vital signs, [id number], statin, Toprol XL Pulm: albuterol, ambulation, IS [...] may require infusion therapy. Request referral to [place], [place] for possible tube feeds if going home or . Expected date of discharge: 03/01. Patient will require teaching. Referral routed to the [employer] for matching with agency/vendor and to provide [...] was able to discuss plan with provider 8984. Nutrition Support: TPN Medication Recent History (Show up to 3 orders; newest on the left. Changes between the two most recent orders are indicated.) Start date and time 02/26/2020 1800 02/23/2020 1800 02/22/2020 1800 TPN Adult [[id number]] TPN Adult [[id number]] TPN Adult [[id number]] Order Status Active Active Discontinued Last Admin New Bag at 02/25/2020 1747 by Elsy Haynes, RN New Bag at 02/22/2020 1808 by [...] of this encounter: 54.9 kg (121 lb). [place] Body Weight: 63.8 kg Usual Body Weight: [...] 9.6 oz) Assessment: Estimated needs: Calories: 25-30 (9878-2573 kcal/kg) Protein: 2 grams (115g/kg) Nutrition Focused Physical Exam (NFPE): Performed on 02/19/20. Subcutaneous fat loss at Orbital region: Mild Upper arm region (triceps/biceps): Mild Thoracic and lumbar region (ribs, lower back and maxillary line): Mild Lean muscle loss to Restorationism region (temporalis muscle): Moderate Clavicle bone region [...] the setting of acute illness or injury (Bbiiana, JPEN J Parenteral Enteral Nutr. 2011; 36(3): 273-83) Nutrition to continue to follow up while inpatient. ZAIRA RONDON RD Pager #:[phone] * Roselia Castro PA - 02/26/2020 10:08 [...] lidoderm patch Card: HDS, Monitor vital signs, [id number], statin, Toprol XL Pulm: albuterol, ambulation, IS [...] Resuscitation - Inpatient NAHID CROWELL 02/26/2020 * Ana Dias 02/25/2020 8:24 AM EDT Urology Inpatient Progress Note Patient Name: Wally Aguilar Patient Age: 69 y.o. Birthdate: 1950 Admit date: 02/13/2020 Attending Physician: Nima Armstrong MD ID: Wally Aguilra is a 69 y.o. male LOS: 12 [...] lidoderm patch Card: HDS, Monitor vital signs, [id number] Pulm: albuterol, ambulation, ISC, cough, deep breathing [...] Discharge: None Electronically signed: Wally Martínez RN, Mechanical Systems Control Engineer Pgr: [phone] 02/24/2020 2:11 PM * Leigha [...] first dose?--> 03/07). TPN started through mediport 5 days ago to help support nutrition [...] lidoderm patch Card: HDS, Monitor vital signs, [id number] Pulm: albuterol, ambulation, ISC, cough, deep breathing [...] patient will provide choices. * Donte Sheffield Tito, RD - 02/23/2020 1:58 PM EDT Nutrition [...] of this encounter: 54.9 kg (121 lb). [place] Body Weight: 142 lbs / 64.4 kg [...] line): Not assessed Lean muscle loss to Restorationism region (temporalis muscle): None present Clavicle bone [...] up while inpatient Donte Sheffield RD Pager #:[phone] * Zaira Rondon RD - 02/23/2020 11:10 [...] was able to discuss plan with provider 3665. Nutrition Support: TPN Medication Recent History (Show up to 3 orders; newest on the left. Changes between the two most recent orders are indicated.) Start date and time 02/23/2020 1800 02/22/2020 1800 02/21/2020 1800 TPN Adult [[id number]] TPN Adult [[id number]] TPN Adult [[id number]] Order Status Active Active Last Admin New [...] of this encounter: 54.9 kg (121 lb). [place] Body Weight: 63.8 kg Usual Body Weight: [...] 9.6 oz) Assessment: Estimated needs: Calories: 25-30 (4954-4316 kcal/kg) Protein: 2 grams (115g/kg) Nutrition Focused Physical Exam (NFPE): Performed on 02/19/20. Subcutaneous fat loss at Orbital region: Mild Upper arm region (triceps/biceps): Mild Thoracic and lumbar region (ribs, lower back and maxillary line): Mild Lean muscle loss to Restorationism region (temporalis muscle): Moderate Clavicle bone region [...] hartman al, CORNELL J Parenteral Enteral Nutr. 2011; 36(3): 273-83) Nutrition to continue to follow up while inpatient. ZAIRA RONDON RD Pager #:[phone] * Juventino Elena MD - 02/23/2020 7:22 [...] myself today. Juventino Elena MD * Samy Knight RN - 02/23/2020 6:31 AM EDT OUTCOME [...] 2.5 - 4.5 mg/dL Recent Labs 02/22/20 0230 WBC 9.6* HGB 9.7* HCT 28.5* PLATELET 97* Recent Labs 02/23/20 0155 02/22/20 0230 02/21/20203502/21/20 0155 NA -- 136 -- 135 K -- [...] lidoderm patch Card: HDS, Monitor vital signs, [id number] Pulm: albuterol, ambulation, ISC, cough, deep breathing [...] 2:37 PM EDT OFFICE OF CARE MANAGEMENT Mechanical Systems Control Engineer Follow-up Note Lizbeth Abdi RN reviewed record [...] medically ready. Current Referral in place: Mani lopez RN Transportation: Friend ketty will drive patient home via private vehicle when medically ready. Mechanical Systems Control Engineer to follow with team and family to assist with discharge needs when patient ready for discharge. Lizbeth Abdi RN Case Management pgr [phone] * JohnZaira sherman, RD - 02/22/2020 10:23 AM EDT Nutrition [...] was able to discuss plan with provider 8903. Nutrition Support: TPN Medication Recent History (Show up to 3 orders; newest on the left. Changes between the two most recent orders are indicated.) Start date and time 02/22/2020 1800 02/21/2020 1800 02/20/2020 1800 TPN Adult [[id number]] TPN Adult [[id number]] TPN Adult [[id number]] Order Status Active Active Last Admin New [...] of this encounter: 54.9 kg (121 lb). [place] Body Weight: 63.8 kg Usual Body Weight: [...] 9.6 oz) Assessment: Estimated needs: Calories: 25-30 (9627-6700 kcal/kg) Protein: 2 grams (115g/kg) Nutrition Focused Physical Exam (NFPE): Performed on 02/19/20. Subcutaneous fat loss at Orbital region: Mild Upper arm region (triceps/biceps): Mild Thoracic and lumbar region (ribs, lower back and maxillary line): Mild Lean muscle loss to Restorationism region (temporalis muscle): Moderate Clavicle bone region [...] up while inpatient. ZAIRA RONDON RD Pager #:[phone] * La Jean-Baptiste MD - 02/22/2020 6:05 [...] first dose?--> 03/07). TPN started through mediport 3days ago to help support nutrition as PO intake is minimal. Ordered calorie count to better ascertain his status. Will work to advance mobility with PT/OT. Ordered miconazole tid for erythematous scrotum likely irritated from persistent contact with diarrhea. Will continue continue tomonitor. Goals for today: OOB walk x4 daily PT/OT Calorie counts Begin nitazoxanide upon arrival to [facility] Will remove ureteral stents following 120mg gentamicin PLAN: Neuro: pain control: tylenol, tramadol, lidoderm patch Card: HDS, Monitor vital signs, [id number] Pulm: albuterol, ambulation, ISC, cough, deep breathing [...] flushed easily. Pt tolerated well. * Zaira Rondon, RD - 02/21/2020 10:27 AM EDT Nutrition Progress Note Patient s/p from a cystoprostatectomy with ileal conduit for MIBC Wally Aguilar is a 69 y.o. male Reason for intervention: TPN Comments: TPN to provide full nutrition of 1460 calores and 115 g protein in 2.4 liters Potassium increased by 60 mEq to 140 mEq. I was able to discuss plan with provider 3713. Nutrition Support: TPN Medication Recent History (Show up to 3 orders; newest on the left. Changes between the two most recent orders are indicated.) Start date and time 02/21/2020 1800 02/20/2020 1800 02/19/2020 1800 TPN Adult [[id number]] TPN Adult [[id number]] TPN Adult [[id number]] Order Status Active Active Discontinued Last Admin [...] encounter: 53.6 kg (118 lb 3.2 oz). [place] Body Weight: 63.8 kg Usual Body Weight: [...] 9.6 oz) Assessment: Estimated needs: Calories: 25-30 (1858-0241 kcal/kg) Protein: 2 grams (115g/kg) Nutrition Focused Physical Exam (NFPE): Performed on 02/19/20. Subcutaneous fat loss at Orbital region: Mild Upper arm region (triceps/biceps): Mild Thoracic and lumbar region (ribs, lower back and maxillary line): Mild Lean muscle loss to Restorationism region (temporalis muscle): Moderate Clavicle bone region [...] up while inpatient. ZAIRA RONDON RD Pager #:[phone] * Claudio Neal MD - 02/21/2020 7:16 [...] fall off a doroteo[place] 1990 [place] he woke up during the procedure ??? [...] CT Guided Biopsy Lymph Node (Chest/Abd/Pelvis) 01/31/2020 [facility] RAD CAT SCAN ??? HIP FRACTURE SURGERY Right 1991 ??? INGUINAL HERNIA REPAIR Right ??? IR MEDIPORT PLACEMENT/EXCHANGE 11/27/2019 IR Mediport Placement 11/27/2019 Jason Lujan, PA [facility] INTERVENTIONL RAD ??? PRO CYSTECTOMY, ILEAL CONDUIT/SIGMOID BLADDER N/A 02/13/2020 @CYSTECTOMY, COMPLETE, WITH ILEAL CONDUIT (WRVU 36.33) performed by Nima Armstrong MD at [facility] LYNETTE ??? PRO NEEDLE BIOPSY LIVER N/A 02/13/2020 LIVER BIOPSY performed by Nima Armstrong MD at [facility] MAIN OR ??? PRO REMOVE PELVIS LYMPH NODES Bilateral 02/13/2020 @LYMPHADENECTOMY, PELVIC, INCLUDING MULTIPLE NODES-FELA (WRVU 14.06) performed by Nima Armstrong MDat [facility] MAIN OR Social History Socioeconomic History ??? [...] file Gets together: Not on file Attends moravian service: Not on file Active member of [...] No drug use. He grew up in [place] and finished 11th grade. 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 He is and has 3 children, 2 live in [place] and one daughter in the [employer] in [facility]; he has limited contact with them. His brother David age 66 [address] but has significant health challenges as well. He has a [facility] telehealth case manager, Ketty Ricketts who is also his landlord [...] Creat, BF Type DARYN Drain Giardia antigen ([facility]/P/APD) Specimen: Stool Result Value Ref Range Giardia Screen Negative Negative Cryptosporidium Oocyst Antigen ([facility]/APD) Specimen: Stool Result Value Ref Range Cryptosporidium Screen Positive (A) Negative Lactate, whole blood, send to lab ([facility]) Result Value Ref Range Lactate WB 1.0 [...] Creat, BF Type DARYN Drain Giardia antigen ([facility]/P/APD) Specimen: Stool Result Value Ref Range Giardia Screen Negative Negative Cryptosporidium Oocyst Antigen ([facility]/APD) Specimen: Stool Result Value Ref Range Cryptosporidium Screen Positive (A) Negative Lactate, whole blood, send to lab ([facility]) Result Value Ref Range Lactate WB 1.0 [...] If not improving will consider colonoscopy ASSESSMENT: Walyl Aguilar is a 69 y.o. male POD8 [...] non-formulary per yesterdays discussion. TPN started through [facility] 2 days ago to help support nutrition [...] for 14 days (this should arrive to [facility] tomorrow) Goals for today: OOB walk x4 daily Calorie counts BIT re-engage PLAN: Neuro: pain control: tylenol, tramadol, lidoderm patch Card: HDS, Monitor vital signs, [id number] Pulm: albuterol, ambulation, ISC, cough, deep breathing [...] encounter: 53.6 kg (118 lb 3.2 oz). [place] Body Weight: 142 lbs / 64.4 kg [...] line): Not assessed Lean muscle loss to Restorationism region (temporalis muscle): None present Clavicle bone region (pectoralis major): Moderate Dorsal hand (interosseous muscle): None present Shoulder (deltoid): Moderate Scapular bone region (latissimus dorsi, trapezius muscles): Not assessed Thigh region (quadriceps muscle): Moderate Posterior calf region (gastrocnemius muscle): Moderate Fluid accumulation: Not assessed Nutrition intake and intake history/Interview: ensure at bedside. Ensure and IC also 1/4 consumed. Pt declined enjoying ensure. Pt declined [...] up while inpatient Donte Sheffield RD Pager #:[phone] * Zaira Rondon RD - 02/20/2020 10:23 [...] was able to discuss plan with provider 2260. Nutrition Support: TPN Medication Recent History (Show up to 3 orders; newest on the left. Changes between the two most recent orders are indicated.) Start date and time 02/20/2020 1800 02/19/2020 1800 TPN Adult [[id number]] TPN Adult [[id number]] Order Status Active Active Last Admin New Bag at 02/19/2020 1859 by Elsy Haynes, KEYA Additives adult multivitamin 10 mL 10 mL [...] encounter: 53.6 kg (118 lb 3.2 oz). [place] Body Weight: 63.8 kg Usual Body Weight: [...] 9.6 oz) Assessment: Estimated needs: Calories: 25-30 (7563-8625 kcal/kg) Protein: 2 grams (115g/kg) Nutrition Focused Physical Exam (NFPE): Performed on 02/19/20. Subcutaneous fat loss at Orbital region: Mild Upper arm region (triceps/biceps): Mild Thoracic and lumbar region (ribs, lower back and maxillary line): Mild Lean muscle loss to Restorationism region (temporalis muscle): Moderate Clavicle bone region [...] the setting of acute illness or injury (CORNELL Mccarty J Parenteral Enteral Nutr. 2012 November; 36(3): 273-83) Nutrition to continue to follow up while inpatient. ZAIRA RONDON RD Pager #:[phone] * Claudio Neal MD - 02/20/2020 7:12 AM EDTSummosesy: Diarrhea Images from the original note were [...] has been stable over last few days (~[phone]). - Imodium has not been started for [...] fall off a doroteo) in 1990 [place] he woke up during the procedure ??? [...] CT Guided Biopsy Lymph Node (Chest/Abd/Pelvis) 01/31/2020 [facility] RAD CAT SCAN ??? HIP FRACTURE SURGERY Right 1991 ??? INGUINAL HERNIA REPAIR Right ??? IR MEDIPORT PLACEMENT/EXCHANGE 11/27/2019 IR Mediport Placement 11/27/2019 Jason Lujan, PA [facility] INTERVENTIONL RAD ??? PRO CYSTECTOMY, ILEAL CONDUIT/SIGMOID BLADDER N/A 02/13/2020 @CYSTECTOMY, COMPLETE, WITH ILEAL CONDUIT (WRVU 36.33) performed by Nima Armstrong MD at [facility] LYNETTE ??? PRO NEEDLE BIOPSY LIVER N/A 02/13/2020 LIVER BIOPSY performed by Nima Armstrong MD at [facility] MAIN OR ??? PRO REMOVE PELVIS LYMPH NODES Bilateral 02/13/2020 @LYMPHADENECTOMY, PELVIC, INCLUDING MULTIPLE NODES-FELA (WRVU 14.06) performed by Nima Armstrong MDat [facility] MAIN OR Social History Socioeconomic History ??? [...] file Gets together: Not on file Attends moravian service: Not on file Active member of [...] No drug use. He grew up in [place] and finished 11th grade. 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 He is and has 3 children, 2 live in [place] and one daughter in the [employer] in [facility] [facility]; he has limited contact with them. His brother David age 66 [address] but has significant health challenges as well. He has a [facility] telehealth case manager, Ketty Ricketts who is also his landlord [...] Drain Lactate, whole blood, send to lab ([facility]) Result Value Ref Range Lactate WB 1.0 [...] Drain Lactate, whole blood, send to lab ([facility]) Result Value Ref Range Lactate WB 1.0 [...] lidoderm patch Card: HDS, Monitor vital signs, [id number] Pulm: albuterol, ambulation, ISC, cough, deep breathing [...] PM EDT Acute Pain Service Epidural Removal 4325 Pain now controlled Pt is taking oral analgesics acceptable pain control at this time. Coagulation status is acceptable. Epidural removed. Tip intact. Patient awake and alert. Deep breathing and coughing well. Epidural insertion site clean and without drainage, pain or erythema. Brisa Villalta RN Acute Pain Service Beeper 2006 * Lizbeth Abdi RN - 02/19/2020 1:46 PM EDT OFFICE OF CARE MANAGEMENT Mechanical Systems Control Engineer Follow-up Note Lizbeth Abdi RN reviewed record [...] ifmedically ready. Current Referral in place: Mani PERKINS routed and orders pended. Transportation: Tray Hdez will drive patient home via private vehicle when medically ready. Support: Tray Hdez Mechanical Systems Control Engineer to follow with team and family to assist with discharge needs when patient ready for discharge. Lizbeth Abdi RN Case Management pgr [phone] * Zaira Rondon, RD - 02/19/2020 1:17 PM EDT Nutrition Progress Note Patient s/p from a cystoprostatectomy with ileal conduit for MIBC Wally Aguilar is a 69 y.o. male Reason for intervention: TPN Comments: TPN to provide full nutrition of 1460 calores and 115 g protein in 2.4 liters I was able to discuss plan with provider [id number]. Nutrition Support: TPN Medication Recent History (Show up to 3 orders; newest on the left.) Start date and time 02/19/2020 1800 TPN Adult [[id number]] Order Status Active Additives adult multivitamin 10 [...] encounter: 53.6 kg (118 lb 3.2 oz). [place] Body Weight: 63.8 kg Usual Body Weight: [...] 9.6 oz) Assessment: Estimated needs: Calories: 25-30 (2290-2241 kcal/kg) Protein: 2 grams (115g/kg) Nutrition Focused Physical Exam (NFPE): Performed on 02/19/20. Subcutaneous fat loss at Orbital region: Mild Upper arm region (triceps/biceps): Mild Thoracic and lumbar region (ribs, lower back and maxillary line): Mild Lean muscle loss to Restorationism region (temporalis muscle): Moderate Clavicle bone region [...] the setting of acute illness or injury (CORNELL Mccarty J Parenteral Enteral Nutr. 2012 November; 36(3): 273-83) Nutrition to continue to follow up while inpatient. ZAIRA RONDON RD Pager #:[phone] * Dariela Fitch MD - 02/19/2020 12:27 [...] Drain Lactate, whole blood, send to lab ([facility]) Result Value Ref Range Lactate WB 1.0 [...] tylenol, tramadol, Card: HDS, Monitor vital signs, [id number] Pulm: albuterol, ambulation, ISC, cough, deep breathing [...] Text Report Department: Vascular Surgery Lab Patient: [id number] (WALLY AGUILAR) CPT: 89808 ICD10: I70.211;I73.9;C79.89;C67.9 Referring Physician: NIMA ARMSTRONG Indications: [...] Waveform Brachial Artery 86 Common Femoral Artery Warrick-Biphasic Popliteal Artery Warrick-Biphasic Dorsalis Pedis (Ankle) Artery 61 0.71 Warrick-Biphasic Posterior Tibial (Ankle) Artery 73 0.85 Warrick-Biphasic Interpretation: RIGHT: Moderately severe lower extremity arterial [...] Brachial Artery ?86 ? Common Femoral Artery ?Warrick- Biphasic ?? Popliteal Artery ? Warrick-Biphasic ?? Dorsalis Pedis (Ankle) Artery ?61 ?0.71 ??Warrick- Biphasic ?? Posterior Tibial (Ankle) Artery ??73 ?0.85 ??Warrick-Biphasic ? Interpretation: ?? RIGHT: Moderately severe lower [...] 6 mL/hr 6 mL/hr New Bag 02/16/2020 DH AN APS EPIDURAL ROUNDIN02/17/2020 9:59 AM Average [...] hyperlipidemia, smoker (2 ppd for 50 years). aWlly Aguilar is a 69 y.o. male Reason [...] encounter: 58.7 kg (129 lb 8 oz). [place] Body Weight: 142 lbs / 64.4 kg [...] line): Not assessed Lean muscle loss to Restorationism region (temporalis muscle): None present Clavicle bone region (pectoralis major): Moderate Dorsal hand (interosseous muscle): None present Shoulder (deltoid): Moderate Scapular bone region (latissimus dorsi, trapezius muscles): Not assessed Thigh region (quadriceps muscle): Moderate Posterior calf region (gastrocnemius muscle): Moderate Fluid accumulation: Not assessed Nutrition intake and intake history/Interview: Visited patient at bedside who appeared lethargic. 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 Patient [...] up while inpatient Fifi Price RD Pager #:[phone] * Dariela Fitch MD - 02/16/2020 12:15 [...] his primary RN, and his surgical service. IBRISA RN, have performed the documentation for this encounter in the presence of and acting as a scribe for Dr. Fitch. APS Nurse: Brisa Villalta RN Resident:: Sarbjit Goel MD Attending [...] 96 % SpO2: [94 %-97 %] 02/14 0701 - 02/15 0700 In: 4612.2 [P.O.:400; I.V.:3216] Out: 1870 [Urine:625] [...] Result Value Ref Range Surgical Pathology Report [id number] Location: OR; OR28; A The signing pathologist has (i) examined the relevant preparation(s) for the specimen(s) and (ii) rendered or confirmed the diagnosis(es). . Frozen Section FROZEN SECTION DIAGNOSIS CFS - Right distal ureter: Urothelial atypia; deeper levels were obtained. - JASON 02/13/20 12:33 Electronically signed by: Trae Hoang MD Verified: 02/13/2020 Pathologist Performed at: -[facility] Dept. of Pathology, [place], [place] This intraoperative consultation should be interpreted as a preliminary diagnosis pending review of the entire specimen and special studies, if any. Frozen Section FROZEN SECTION DIAGNOSIS BFS - Left distal ureter: Urothelial atypia, cannot exclude dysplasia. - JLG 02/13/20 11:43 Electronically signed by: Trae Hoang MD Verified: 10/2019 Pathologist Performed at: -[facility] Dept. of Pathology, [place], [place] This intraoperative consultation should be interpreted as a preliminary diagnosis pending review of the entire specimen and special studies, if any. Frozen Section FROZEN SECTION DIAGNOSIS - AFS1 Liver mass: Calcified nodule, negative for cancer 02/13/20 11:07 Electronically signed by: Guero Faye MD Verified: 02/13/2020 Pathologist Performed at: -[facility] Dept. of Pathology, [place], [place] This intraoperative consultation should be interpreted [...] Text Report Department: Vascular Surgery Lab Patient: [id number] (WALLY AGUILAR) CPT: 86352 ICD10: I70.211;I73.9;C79.89;C67.9 Referring Physician: NIMA ARMSTRONG Indications: [...] Waveform Brachial Artery 86 Common Femoral Artery Warrick-Biphasic Popliteal Artery Warrick-Biphasic Dorsalis Pedis (Ankle) Artery 61 0.71 Warrick-Biphasic Posterior Tibial (Ankle) Artery 73 0.85 Warrick-Biphasic Interpretation: RIGHT: Moderately severe lower extremity arterial [...] Brachial Artery ?86 ? Common Femoral Artery ?Warrick- Biphasic ?? Popliteal Artery ? Warrick-Biphasic ?? Dorsalis Pedis (Ankle) Artery ?61 ?0.71 ??Warrick- Biphasic ?? Posterior Tibial (Ankle) Artery ??73 ?0.85 ??Warrick-Biphasic ? Interpretation: ?? RIGHT: Moderately severe lower [...] intake and continue to monitor. Will resume [id number] home medication given extensive PVD. Goals for [...] Narrative:Visited to introduce and assess acceptance of [employer] services. Pt was awake, alert, oriented and in bed. Assessment:Patient coping positively with stresses of illness/hospitalization at this time. Pt saysthat he is hoping to get better and go home and pt requested RN who came to help. Outcome:[employer] services accepted.Conversation to build trusting relationship.Provided pastoral presence. Follow up:yes Time: 05 mins * Miller Bartlett, RN - 02/15/2020 11:04 AM EDT Office [...] of care, and assist with discharge planning. Mechanical Systems Control Engineer: Miller Bartlett Pager [phone] * Nima Bhatia MD - 02/15/2020 9:51 [...] 6 mL/hr 6 mL/hr New Bag 02/14/2020 AN APS EPIDURAL ROUNDIN02/15/2020 8:50 AM Average [...] with him this afternoon after his transfusion. BRISA Tang RN, have performed the documentation for this [...] Result Value Ref Range Surgical Pathology Report [id number] Location: OR; OR28; A The signing pathologist has (i) examined the relevant preparation(s) for the specimen(s) and (ii) rendered or confirmed the diagnosis(es). . Frozen Section FROZEN SECTION DIAGNOSIS CFS - Right distal ureter: Urothelial atypia; deeper levels were obtained. - [facility] 02/13/20 12:33 Electronically signed by: Trae Hoang MD Verified: 02/13/2020 Pathologist Performed at: -[facility] Dept. of Pathology, [place], [place] This intraoperative consultation should be interpreted as a preliminary diagnosis pending review of the entire specimen and special studies, if any. Frozen Section FROZEN SECTION DIAGNOSIS BFS - Left distal ureter: Urothelial atypia, cannot exclude dysplasia. - [facility] 02/13/20 11:43 Electronically signed by: Trae Hoang MD Verified: 10/2019 Pathologist Performed at: -[facility] Dept. of Pathology, [place], [place] This intraoperative consultation should be interpreted as a preliminary diagnosis pending review of the entire specimen and special studies, if any. Frozen Section FROZEN SECTION DIAGNOSIS - AFS1 Liver mass: Calcified nodule, negative for cancer 02/13/20 11:07 Electronically signed by: Guero Faye MD Verified: 02/13/2020 Pathologist Performed at: -[facility] Dept. of Pathology, [place], [place] This intraoperative consultation should be interpreted [...] Text Report Department: Vascular Surgery Lab Patient: [id number] (WALLY AGUILAR) CPT: 58704 ICD10: I70.211;I73.9;C79.89;C67.9 Referring Physician: NIMA ARMSTRONG Indications: [...] Waveform Brachial Artery 86 Common Femoral Artery Warrick-Biphasic Popliteal Artery Warrick-Biphasic Dorsalis Pedis (Ankle) Artery 61 0.71 Warrick-Biphasic Posterior Tibial (Ankle) Artery 73 0.85 Warrick-Biphasic Interpretation: RIGHT: Moderately severe lower extremity arterial [...] Dispensed? Yes Recent Labs 02/15/20 0545 02/15/20 04202/14/20 0150 02/13/20 17502/13/20 0705 WBC 6.4 6.5 11.6* 9.9* 4.9 HGB 6.3* 6.5* 8.0* 8.5* 15.2 HCT 19.0* 19.4* 23.5* 24.9* 45.6 PLATELET 94* 99* 67* 73* 87* Recent Labs 02/15/20 0420 02/14/20 0150 02/13/20 17502/13/20 0705 NA 137 138 138 135 K [...] Brachial Artery ?86 ? Common Femoral Artery ?Warrick- Biphasic ?? Popliteal Artery ? Warrick-Biphasic ?? Dorsalis Pedis (Ankle) Artery ?61 ?0.71 ??Warrick- Biphasic ?? Posterior Tibial (Ankle) Artery ??73 ?0.85 ??Warrick-Biphasic ? Interpretation: ?? RIGHT: Moderately severe lower [...] PCEA dose to 4mL q 20 minutes. NELSON Tang RN, have performed the documentation for this [...] Result Value Ref Range Surgical Pathology Report [id number] Location: OR; OR28; A The signing pathologist has (i) examined the relevant preparation(s) for the specimen(s) and (ii) rendered or confirmed the diagnosis(es). . Frozen Section FROZEN SECTION DIAGNOSIS CFS - Right distal ureter: Urothelial atypia; deeper levels were obtained. - JLG 02/13/20 12:33 Electronically signed by: Trae Hoang MD Verified: 02/13/2020 Pathologist Performed at: -[facility] Dept. of Pathology, [place], [place] This intraoperative consultation should be interpreted as a preliminary diagnosis pending review of the entire specimen and special studies, if any. Frozen Section FROZEN SECTION DIAGNOSIS BFS - Left distal ureter: Urothelial atypia, cannot exclude dysplasia. - JLG 02/13/20 11:43 Electronically signed by: Trae Hoang MD Verified: 10/2019 Pathologist Performed at: -[facility] Dept. of Pathology, [place], [place] This intraoperative consultation should be interpreted as a preliminary diagnosis pending review of the entire specimen and special studies, if any. Frozen Section FROZEN SECTION DIAGNOSIS - AFS1 Liver mass: Calcified nodule, negative for cancer 02/13/20 11:07 Electronically signed by: Guero Faye MD Verified: 02/13/2020 Pathologist Performed at: -[facility] Dept. of Pathology, [place], [place] This intraoperative consultation should be interpreted [...] La Jean-Baptiste MD 02/14/2020 Pgr. [phone] * Froilan Moore MD - 02/13/2020 10:35 PM EDT UROLOGY [...] Boles RN - 02/13/2020 8:30 PM EDT 1900- Received report from Patricia LAURA, Pt awake [...] DARYN drain having large output. Urology resident divya, camilo LION its mostly irrigant 1830: Hemoglobin came back at 8.5 and critical Ca at 6.9, pager [phone] made aware 1907: patient reporting right leg pain, pager [phone] made aware 1910: Oscar at bedside for post op check, no new orders 191: report given to KEYA Raza documented in [...] fall off a doroteo) in 1990 [place] he woke up during the procedure [...] CT Guided Biopsy Lymph Node (Chest/Abd/Pelvis) 01/31/2020 [facility] RAD CAT SCAN ??? HIP FRACTURE SURGERY Right 1991 ??? INGUINAL HERNIA REPAIR Right ??? IR MEDIPORT PLACEMENT/EXCHANGE 11/27/2019 IR Mediport Placement 11/27/2019 Jason Lujan, PA [facility] INTERVENTIONL RAD ??? PRO CYSTECTOMY, ILEAL CONDUIT/SIGMOID BLADDER N/A 02/13/2020 @CYSTECTOMY, COMPLETE, WITH ILEAL CONDUIT (WRVU 36.33) performed by Nima Armstrong MD at [facility] LYNETTE ??? PRO NEEDLE BIOPSY LIVER N/A 02/13/2020 LIVER BIOPSY performed by Nima Armstrong MD at [facility] MAIN OR ??? PRO REMOVE PELVIS LYMPH NODES Bilateral 02/13/2020 @LYMPHADENECTOMY, PELVIC, INCLUDING MULTIPLE NODES-FELA (WRVU 14.06) performed by Nima Armstrong MDat [facility] MAIN OR Medications: Scheduled Meds: ??? azithromycin [...] file Gets together: Not on file Attends moravian service: Not on file Active member of [...] No drug use. He grew up in [place] [facility] and finished 11th grade. 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 He is and has 3 children, 2 live in [place] and one daughter in the [employer] in [facility]; he has limited contact with them. His brother David age 66 [address] but has significant health challenges as well. He has a [facility] telehealth case manager, Ketty Ricketts who is also his landlord [...] presence needed: No Consent: Pending 02/27/2020 * Roselyn Barbatheodora, ANTON - 02/27/2020 3:56 PM EDT Images from [...] fall off a doroteo) in 1990 [place] he woke up during the procedure [...] CT Guided Biopsy Lymph Node (Chest/Abd/Pelvis) 01/31/2020 [facility] RAD CAT SCAN ??? HIP FRACTURE SURGERY Right 1991 ??? INGUINAL HERNIA REPAIR Right ??? IR MEDIPORT PLACEMENT/EXCHANGE 11/27/2019 IR Mediport Placement 11/27/2019 Jason Lujan, NAHID [facility] INTERVENTIONL RAD ??? PRO CYSTECTOMY, ILEAL CONDUIT/SIGMOID BLADDER N/A 02/13/2020 @CYSTECTOMY, COMPLETE, WITH ILEAL CONDUIT (WRVU 36.33) performed by Nima Armstrong MD at [facility] LYNETTE ??? PRO NEEDLE BIOPSY LIVER N/A 02/13/2020 LIVER BIOPSY performed by Nima Armstrong MD at [facility] MAIN OR ??? PRO REMOVE PELVIS LYMPH NODES Bilateral 02/13/2020 @LYMPHADENECTOMY, PELVIC, INCLUDING MULTIPLE NODES-FELA (WRVU 14.06) performed by Nima Armstrong MDat [facility] MAIN OR Medications: Scheduled Meds: ??? azithromycin [...] file Gets together: Not on file Attends moravian service: Not on file Active member of [...] No drug use. He grew up in [place] and finished 11th grade. 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 He is and has 3 children, 2 live in [place] and one daughter in the [employer] in [facility]; he has limited contact with them. His brother David age 66 [address] but has significant health challenges as well. He has a [facility] telehealth case manager, Ketty Jamarcus who is also his landlord and is [...] 02/20/2020 K 4.7 02/25/2020 Imagin01/2020 PET SCAN FEBRUARY-2018 Assessment: 69 y.o. male, POD 14 s/p [...] Port-a-Cath is due for the Monthly flush by__[facility] Your Port-a-Cath should be accessed and flushed [...] 14.06) (Bilateral) LIVER BIOPSY (N/A) Appliance: Removed Naveen 1 3/4 with adapt ring and replaced [...] morning. Special Notes: Pt has 5 spare [place]ney 1 3/4 wafers & pouches and 5 spare adapt rings in his green ostomy supply bag. Anticipated discharge today. Will f/u with him in the outpatient clinic. See photo from 03/04; no change. ZACKARY Nichols, RN, CWOCN 03/07/2020 Enterostomal Therapy Team Pager #[phone] * Plan of Care - Wendy King [...] vascular disease, and asthma who presented to [facility] for cystoprostatectomy with ileal conduit on 02/12. [...] remote recall grossly intact Language Fluent in [place] without paraphasic errors. Non-profane Fund of Knowledge [...] vascular disease, and asthma who presented to [facility] for cystoprostatectomy with ileal conduit on 02/12. [...] IU vitamin D2 - page Consult Psychiatry (#[phone]) for any additional questions or concerns Recommendations were communicated to primary merchandise team manager. Coding Determination Complexity of MDM Determination: Alirio [...] EXAM MDM LAUREN/CPT CODE PF PF Straightforward/Low 3005/31928 EPF EPF Moderate 3015/59060 x D x D x High x 3025/26329 Associated attestation - Keshia Johnson MD - [...] and I agree with them as documented. Keshia Johnson MD Psychiatry Consultation Pager: [phone] * Plan of Care - Danie Callahan RN - 03/06/2020 4:17 AM EDT Problem: Patient Care Overview Goal: Plan of Care Review Outcome: Ongoing (Interventions Implemented as Appropriate) 03/05/20 0242 03/05/20 2135 Plan of Care Review Progress progress toward [...] palpation. Midline incision well approximated and left CLAIM REP. Urostomy output is bright yellow with mucuspresent. [...] EDT Psychiatry Behavioral Intervention Team (BIT) BRITTNI MANAGER SALES AND MARKETING attempted to engage with pt. Pt was withdrawn and uncommunicative. He stated that he was struggling with acid reflux , but that he would be open to a follow up with curriculum writer later in the week. Geotechnical Field Technician agreed to try and meet with him again on Wednesday or . BRITTNI AGUILA will continue to follow and remains available to patient/staff as needed MINGO Khalil [phone] Pager [phone] * Consult Note - Zofia Ahuja MD [...] due to taste and swallowing issues, but DRINKING WATER TECHNICIAN did not find mechanical issues with swallowing. [...] fall off a doroteo) in 1990 [place] he woke up during the procedure [...] ??? tube feeding diet 1,680 mL (03/05/20 8654) calcium carbonate, acetaminophen, phenol 1.4%, prochlorperazine, sodium [...] file Gets together: Not on file Attends moravian service: Not on file Active member of [...] No drug use. He grew up in [place] and finished 11th grade. 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 He is and has 3 children, 2 live in [place] and one daughter in the [employer] in [facility]; he has limited contact with them. His brother David age 66 [address] but has significant health challenges as well. He has a [facility] telehealth case manager, Ketty Ricketts who is also his landlord and is instrumental in helping him manage his affairs. FAMILY HISTORY No family history on file. Vitals: 03/04/20 1600 03/04/20 2210 03/05/20 0717 03/05/20 0958 BP: 108/68 114/71 126/75 BP Location (NBP): Right arm Right arm Right arm Patient Position: Lying Lying Lying Pulse: 89 68 85 Resp: Temp: 36.3 ??C (97.3 ??F) 36.6 ??C [...] need outpatient motility evaluation. Agree with continued DRINKING WATER TECHNICIAN and Nutrition involvement. Chato York MD Section of Gastroenterology [facility] * Plan of Care - Derik-Jono Medel RN - 03/05/2020 2:48 AM EDT Problem: [...] 14.06) (Bilateral) LIVER BIOPSY (N/A) Appliance: Removed Naveen 1 09/12 with adapt ring and replaced with same Changed: [x} Yes Stoma: red, moist, protrudes and measures irregular shape 1 / Peristomal Skin: intact and healthy [...] Stoma * Consult Note - Zachary Hurley - 03/04/2020 9:20 AM EDT Psychiatric Inpatient [...] vascular disease, and asthma who presented to [facility] for cystoprostatectomy with ileal conduit on 02/12. [...] remote recall grossly intact Language Fluent in [place] without paraphasic errors. Non-profane Fund of Knowledge [...] vascular disease, and asthma who presented to [facility] for cystoprostatectomy with ileal conduit on 02/12. [...] continue to follow - page Consult Psychiatry (#[phone]) for any additional questions or concerns Recommendations were communicated to primary merchandise team manager. Coding Determination Complexity of MDM Determination: Alirio [...] EXAM MDM LAUREN/CPT CODE PF PF Straightforward/Low 3005/19647 EPF EPF Moderate 3015/42735 x D x D x High x 3025/13602 Associated attestation - Odilon Negrete MD - 03/11/2020 3:58 PM EDT Psychiatry Attending Note I discussed this patient's situation with the resident but did not see the patient. I contributed to the formulation and treatment planning as documented in the resident's note. Odilon Negrete MD Psychiatry Consultation Pager: [phone] * Plan of Care - Mg Perez [...] D/C planning ?? INDIVIDUALIZED FALL PREVENTION INTERVENTIONS: [place] Risk ? Patient-specific fall risk factors per [...] D/c planning ?? INDIVIDUALIZED FALL PREVENTION INTERVENTIONS: [place] Risk ? Patient-specific fall risk factors per [...] vascular disease, and asthma who presented to [facility] for cystoprostatectomy with ileal conduit on 02/12. [...] remote recall grossly intact Language Fluent in [place] without paraphasic errors. Non-profane Fund of Knowledge [...] vascular disease, and asthma who presented to [facility] for cystoprostatectomy with ileal conduit on 02/12. [...] continue to follow - page Consult Psychiatry (#[phone]) for any additional questions or concerns Recommendations were communicated to primary merchandise team manager. Coding Determination Complexity of MDM Determination: Alirio [...] EXAM MDM LAUREN/CPT CODE PF PF Straightforward/Low 3005/33497 EPF EPF Moderate 3015/35694 x D x D x High x 3025/96793 * Plan of Care - Wendy King RN - 03/02/2020 5:43 PM EDT Problem: Patient Care Overview Goal: Plan of Care Review Outcome: Ongoing (Interventions Implemented as Appropriate) 03/02/20 8007 Plan of Care Review Progress progress toward [...] alkaseltzer which is not on formulary at [facility]. When asked if he wanted to wash up, he declined. He has been OOB to the today for one loose stool. PLAN MOVING [...] ADLs]: Hand on Surveillance [continuous indirect monitoring]: linda Patient-specific [...] Outcome: Ongoing (Interventions Implemented as Appropriate) 03/01/20 8879 Plan of Care Review Progress progress toward [...] fall off a doroteo) in 1990 [place] he woke up during the procedure [...] CT Guided Biopsy Lymph Node (Chest/Abd/Pelvis) 01/31/2020 [facility] RAD CAT SCAN ??? HIP FRACTURE SURGERY Right 1991 ??? INGUINAL HERNIA REPAIR Right ? IR MEDIPORT PLACEMENT/EXCHANGE ?? 11/27/2019 ?? IR Mediport Placement 11/27/2019 Jason Lujan, PA [facility] INTERVENTIONL RAD ??? PRO CYSTECTOMY, ILEAL CONDUIT/SIGMOID BLADDER N/A 02/13/2020 ?? @CYSTECTOMY, COMPLETE, WITH ILEAL CONDUIT (WRVU 36.33) performed by Nima Armstrong MD at [facility] MAIN OR ??? PRO NEEDLE BIOPSY LIVER N/A 02/13/2020 ?? LIVER BIOPSY performed by Nima Armstrong MD at [facility] MAIN OR ??? PRO REMOVE PELVIS LYMPH [...] pt's and therapy goals Anticipated Discharge Disposition: detention facility/swing bed Equipment Recommendations: TBD ?? Daily [...] Total Evaluation Minutes, Occupational Therapy: 23 Pager: [phone] ANTWON Ng Occupational Therapy Rehabilitation Department * Consult Note - Zachary Hurley - 03/01/2020 11:29 AM EDT Psychiatric Inpatient [...] vascular disease, and asthma who presented to [facility] for cystoprostatectomy with ileal conduit on 02/12. [...] remote recall grossly intact Language Fluent in [place] without paraphasic errors. Non-profane Fund of Knowledge [...] vascular disease, and asthma who presented to [facility] for cystoprostatectomy with ileal conduit on 02/12. [...] continue to follow - page Consult Psychiatry (#[phone]) for any additional questions or concerns Recommendations were communicated to primary merchandise team manager. Coding Determination Complexity of MDM Determination: Alirio [...] EXAM MDM LAUREN/CPT CODE PF PF Straightforward/Low 3005/98058 EPF EPF Moderate 3015/89536 x D x D x High x 3025/38035 Associated attestation - Odilon Negrete MD - 03/11/2020 3:59 PM EDT Psychiatry Attending Note I discussed this patient's situation with the resident but did not see the patient. I contributed to the formulation and treatment planning as documented in the resident's note. Odilon Negrete MD Psychiatry Consultation Pager: [phone] * Plan of Care - Flory Faulkner [...] ambulation D/C planning INDIVIDUALIZED FALL PREVENTION INTERVENTIONS: [place] Risk ? Patient-specific fall risk factors per [...] a friend has been staying with him, ??TELEPHONIC RN pt was using a cane DME:cane Precautions/Special [...] continue ther-ex, repositioning, and to call for staff anesthesiologist assistance withall mobility. Assessment: Wally Aguilar was [...] Physical Therapy: 25 TEF x 2 MILLER ALEXIS PT Pager:[phone] Physical Therapy Inpatient Rehabilitation Department * Consult Note - Shelby Gilliland RN - 02/29/2020 12:03 PM EDT Inpatient post op note Diagnosis: Bladder Cancer Surgery/Date: 02/13/2020 Procedure(s) (LRB): @CYSTECTOMY, COMPLETE, WITH ILEAL CONDUIT (WRVU 36.33) (N/A) @LYMPHADENECTOMY, PELVIC, INCLUDING MULTIPLE NODES-FELA (WRVU 14.06) (Bilateral) LIVER BIOPSY (N/A) Appliance: Removed Putney 1 3/4 with adapt ring & replaced with same. Changed: [x} Yes Stoma: Red, moist, protrudes, and is round ~ 1 1/4. Peristomal Skin: Healthy & intact. Teaching: [...] Willfollow. See photo from 02/25; no change. LYLE NicholsN, RN, CWOCN 02/29/2020 Enterostomal Therapy Team Pager #[phone] * Consult Note - Zachary Hurley Virgen - 02/29/2020 9:37 AM EDT Psychiatric Inpatient [...] vascular disease, and asthma who presented to [facility] for cystoprostatectomy with ileal conduit on 02/12. [...] Patient does ask for milk while this curriculum writer is at bedside, drinks part of [...] remote recall grossly intact Language Fluent in [place]orese without paraphasic errors. Non-profane [facility] Age appropriate Extent of Exam Determination: Alirio [...] vascular disease, and asthma who presented to [facility] for cystoprostatectomy with ileal conduit on 02/12. [...] continue to follow - page Consult Psychiatry (#[phone]) for any additional questions or concerns Recommendations were communicated to primary merchandise team manager. Coding Determination Complexity of MDM Determination: Alirio [...] must be met toqualify. HISTORY EXAM MDM LARUEN/CPT CODE PF PF Straightforward/Low 3005/71345 EPF EPF Moderate 3015/22221 x D x D x High x 3025/21723 Associated attestation - Odilon Negrete MD - 03/11/2020 3:58 PM EDT Psychiatry Attending Note I discussed this patient's situation with the resident but did not see the patient. I contributed to the formulation and treatment planning as documented in the resident's note. Odilon Negrete MD Psychiatry Consultation Pager: [phone] * Plan of Care - Marcy Riojas RN - 02/29/2020 2:15 AM EDT Problem: Patient Care Overview Goal: Plan of Care Review Outcome: Ongoing (Interventions Implemented as Appropriate) 02/23/20 1700 02/28/20 6631 Plan of Care Review Progress progress toward [...] fall off a doroteo) in 1990 [place] he woke up during the procedure [...] CT Guided Biopsy Lymph Node (Chest/Abd/Pelvis) 01/31/2020 [facility] RAD CAT SCAN ??? HIP FRACTURE SURGERY Right 1991 ??? INGUINAL HERNIA REPAIR Right ? IR MEDIPORT PLACEMENT/EXCHANGE ?? 11/27/2019 ?? IR Mediport Placement 11/27/2019 Jason Lujan, NAHID [facility] INTERVENTIONL RAD ??? PRO CYSTECTOMY, ILEAL CONDUIT/SIGMOID BLADDER N/A 02/13/2020 ?? @CYSTECTOMY, COMPLETE, WITH ILEAL CONDUIT (WRVU 36.33) performed by Nima Armstrong MD at [facility] MAIN OR ??? PRO NEEDLE BIOPSY LIVER N/A 02/13/2020 ?? LIVER BIOPSY performed by Nima Armstrong MD at [facility] MAIN OR ??? PRO REMOVE PELVIS LYMPH NODES Bilateral 02/13/2020 ?? @LYMPHADENECTOMY, PELVIC, INCLUDING MULTIPLE NODES-FELA (WRVU 14.06) performed by Nima Armstrong MD at [facility] MAIN OR ? Social History: Patient lives??with a [...] feel when he needed to go to [facility] sometimes, pt was issued a bedside commode for times when he knew he had to go but time was a concern. Pt will benefit from ongoing therapeutic interventions to achieve pt's and therapy goals Anticipated Discharge Disposition: detention facility/swing bed Equipment Recommendations: TBD ?? Daily [...] Total Evaluation Minutes, Occupational Therapy: 25 Pager: [phone] ANTWON Ng Occupational Therapy Rehabilitation Department * Consult Note - Zachary Hurley - 02/27/2020 2:32 PM EDT Psychiatric Initial [...] vascular disease, and asthma who presented to [facility] for cystoprostatectomy with ileal conduit on 02/12. [...] fall off a doroteo) in 1990 [place] he woke up during the procedure [...] CT Guided Biopsy Lymph Node (Chest/Abd/Pelvis) 01/31/2020 [facility] RAD CAT SCAN ??? HIP FRACTURE SURGERY Right 1992 ??? INGUINAL HERNIA REPAIR Right ??? IR MEDIPORT PLACEMENT/EXCHANGE 11/27/2019 IR Mediport Placement 11/27/2019 Jason Lujan PA [facility] INTERVENTIONL RAD ??? PRO CYSTECTOMY, ILEAL CONDUIT/SIGMOID BLADDER N/A 02/13/2020 @CYSTECTOMY, COMPLETE, WITH ILEAL CONDUIT (WRVU 36.33) performed by Nima Armstrong MD at [facility] LYNETTE ??? PRO NEEDLE BIOPSY LIVER N/A 02/13/2020 LIVER BIOPSY performed by Nima Armstrong MD at [facility] MAIN OR ??? PRO REMOVE PELVIS LYMPH NODES Bilateral 02/13/2020 @LYMPHADENECTOMY, PELVIC, INCLUDING MULTIPLE NODES-FELA (WRVU 14.06) performed by Nima Armstrong MDat [facility] MAIN OR Medications: Current Facility-Administered Medications Medication [...] tablet 500 mg 500 mg Oral Q12H [facility] Nima Armstrong MD 500 mg at 02/27/20 0817 ??? pantoprazole EC (Protonix) tablet 40 mg 40 mg Oral BID Froilan Moore MD 40 mg at 02/27/20 0817 ??? miconazole nitrate (REMEDY PHYTOPLEX) 2 % ointment Topical (Top) BID aL Jean-Baptiste MD ??? acetaminophen (Tylenol) tablet 1,000 [...] injection 40 mg 40 mg Subcutaneous Q24H CARLOS La Jean-Baptiste MD 40 mg at 02/27/20 [...] BID Enrrique Patten MD 5 mL at 02/27/20 0817 ??? sodium chloride 0.9 % (flush) flush 5-20 mL 5-20 mL Intravenous Q1 Min PRN Enrrique Patten MD ??? lidocaine (XYLOCAINE) 10 mg/mL (1 %) injection 3 mg 0.3 mL Subcutaneous Once PRN Enrrique Patten MD ??? traMADoL (Ultram) tablet 50 mg 50 mg Oral Q6H PRN Oscar, Froilan Barton MD 50 mg at 02/25/202054 ??? varenicline (Chantix) tablet 1 mg 1 mg Oral BID Enrrique Patten MD 1 mg at 02/27/20 0816 Medical Review of Systems: Constitutional: denies fever, chills HEENT: denies sore throat Cardiovascular: denies chest pain Respiratory: denies dyspnea GI: +nausea, diarrhea. Denies vomiting, abdominal pain. /SENIOR ELECTRONICS ENGINEER: n/a (s/p cystectomy) Endocrine: denies diaphoresis Musculoskeletal: denies arthralgia Integumentary: denies rash Neurological: denies FREEMAN, tremor, weakness/numbness Hematologic/Lymphatic: No easy bruising or bleeding Allergic/Immunologic: No seasonal allergies or frequent infections Psychiatric: See above Social History: Lives independently, but has a friend who has been staying over the last two months who has been helpful. 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 Has a brother and sister in the [...] latency at times. ?? Language: fluent in [place] with no paraphasic errors. Non-profane ?? Mood: [...] vascular disease, and asthma who presented to [facility] for cystoprostatectomy with ileal conduit on 02/12. [...] continue to follow - page Consult Psychiatry (#[phone]) for any additional questions or concerns Recommendations were communicated to primary merchandise team manager. Coding Determination Complexity of MDM Determination: Alirio [...] CPT CODE PF PF Straightforward 3200 / 47335 EPF EPF Straightforward 3210 / 23017 D D Low 3220 / 10586 C C Moderate 3230 / 19471 x C x C x High x 3240 / 49300 Associated attestation - Odilon Negrete MD - [...] etc. Odilon Negrete MD Psychiatry Consultation Pager: [phone] * Consult Note - Clayton Norris MSW - 02/27/2020 1:16 PM EDT BIT Evaluation Referral source: Consult request by primary team physician Reason for referral: Other: coping, not interacting Relevant history: BIT MANAGER SALES AND MARKETING met with pt in room as follow up to previous meeting to continue MH/coping assessment, and to explore how to best provide him with supportive services during this admission. Pt discussed withwriter his current mood and lack of appetite. He denied any notable depressed mood, although acknowledged being tired of being at [facility] and wanting to go home to see his bird Juan Francisco. He acknowledged sometimes thinking about no longer [...] to make an effort to eat more. Geotechnical Field Technician discussed with pt the possibility of his meeting with psychiatry to explore possible options to help him feel more hopeful, engaged, and less tired. Pt stated that he would be open to doing so. Geotechnical Field Technician explored with pt his current community supports. Pt identified his roommate as being his primary support, but also reported getting on well with his neighbours. He briefly discussed his familyas well, and reported having been visited by his sister over the weekend. Geotechnical Field Technician discussed with pt reported plans for roommate to move out and get his own place. Pt was fairly noncommittal although acknowledged that he did enjoy the company. Geotechnical Field Technician and pt engaged in brief test of attention/cognition with pt having to repeat back set s of numbers either forwards and backwards. Pt was able to repeat back correctly up to four digits forwards, but struggled with repeating back five in the correct order. He also struggled to repeat back three digits backwards in the correct order. Geotechnical Field Technician ended session at this time as pt [...] able to enjoy life. He misses his candy and his roommate, and reports that he is looking forwardto spending time with them again. Pt demonstrates little insight into his low mood or lack of interest in eating. He recognizes that he needs to eat however and agreed to make more of an effort to doso. Given pt's lack of appetite, flat affect, and difficulty with attention/cognitive test curriculum writer has contacted urology team to recommend [...] conscious effort to eat meals provided 3) BIT MANAGER SALES AND MARKETING will follow up with pt later this [...] Wound Care Nurse Note Situation: Seeing Wally Hernandez Jeff as a follow up for scrotal edema [...] Please contact Nuria Nixon RN on pager [phone] or the wound care team at [phone] or pager [phone] with skin and wound care concerns or questions. * Plan of Care - aMrcy Riojas RN - 02/27/2020 3:13 AM EDT [...] Treatment Number PT: 4 Patient profile: Wally Hernandez Jeff??is a 69 y.o.??male?admitted on 02/12 for??a cystoprostatectomy [...] help him with mobility,toileting and self care ??TELEPHONIC RN pt was using a cane DME:cane Precautions/Special [...] (Room air) ?? Pt in bed with staff anesthesiologist present when PT arrived, some nausea after [...] continue ther-ex, repositioning, and to call for staff anesthesiologist assistance withall mobility. Assessment: Wally Aguilar was [...] Physical Therapy: 37(functional mobility) GRAYSON DIMAS, PT Pager:[phone] Physical Therapy Inpatient Rehabilitation Department * Consult Note - Romina Rice RN - 02/26/2020 10:31 AM EDT Images from the original note were not included. Inpatient post op note Diagnosis: Bladder Cancer Surgery/Date: 02/13/2020 Procedure(s) (LRB): @CYSTECTOMY, COMPLETE, WITH ILEAL CONDUIT (WRVU 36.33) (N/A) @LYMPHADENECTOMY, PELVIC, INCLUDING MULTIPLE NODES-FELA (WRVU 14.06) (Bilateral) LIVER BIOPSY (N/A) Appliance: Removed naveen 1 09/12 with adapt ring and replaced with same Changed: [x} Yes Stoma: red, moist, protrudes and measures 1 07/15 Peristomal Skin: intact and healthy Teaching: reviewed [...] Review Outcome: Ongoing (Interventions Implemented as Appropriate) 02/23/200 02/25/202054 Plan of Care Review Progress progress [...] Ongoing (Interventions Implemented as Appropriate) 02/14/20 1549 02/21/202241 Discharge Needs Assessment Concerns [...] Ongoing (Interventions Implemented as Appropriate) 02/24/20 0850 02/24/20 2030 Daily Care Interventions Self-Care Promotion independence encouraged;BADL [...] to achieve outcome by discharge 02/14/20 1549 02/21/20 2242 Discharge Needs Assessment [...] of Care - Miller Alexis, PT - 02/23/2020 3:15 PM EDT Physical [...] help him with mobility,toileting and self care TELEPHONIC RN pt was using a cane DME:cane Precautions/Special [...] all needs met, RN aware. Assessment: Wally Mary Aguilar was seen today for physical therapy [...] independent mobility with FWW. Pt declining inpatientrehab stay,Pt/care transition mgr will speak with his friend tomorrow. Pt [...] his friend. Discussed with PA, resident, and care transition mgr. Equipment needs: Rolling walker, Physical Therapy Goals: [...] TEF x 3 MILLER ALEXIS, PT Pager: [phone] Physical Therapy Inpatient Rehabilitation Department * Consult Note - Romina Rice RN - 02/23/2020 11:16 AM EDT Ostomy nurse note - looks exhausted. Current Putney ostomy pouch is intact and there is [...] Treatment Number OT: 3 Patient Dx: Wally Aguilar??is a 69 y.o.??male??with??PMH [...] fall off a doroteo) in 1990 [place] he woke up during the procedure [...] CT Guided Biopsy Lymph Node (Chest/Abd/Pelvis) 01/31/2020 [facility] RAD CAT SCAN ??? HIP FRACTURE SURGERY Right 1991 ??? INGUINAL HERNIA REPAIR Right ? IR MEDIPORT PLACEMENT/EXCHANGE ?? 11/27/2019 ?? IR Mediport Placement 11/27/2019 Jason Lujan, NAHID [facility] INTERVENTIONL RAD ??? PRO CYSTECTOMY, ILEAL CONDUIT/SIGMOID BLADDER N/A 02/13/2020 ?? @CYSTECTOMY, COMPLETE, WITH ILEAL CONDUIT (WRVU 36.33) performed by Nima Armstrong MD at [facility] MAIN OR ??? PRO NEEDLE BIOPSY LIVER N/A 02/13/2020 ?? LIVER BIOPSY performed by Nima Armstrong MD at [facility] MAIN OR ??? PRO REMOVE PELVIS LYMPH NODES Bilateral 02/13/2020 ?? @LYMPHADENECTOMY, PELVIC, INCLUDING MULTIPLE NODES-FELA (WRVU 14.06) performed by Nima Armstrong MD at [facility] MAIN OR ? Social History: Patient lives??with a [...] pt's and therapy goals Anticipated Discharge Disposition: detention facility/swing bed Equipment Recommendations: TBD ?? Daily [...] Total Evaluation Minutes, Occupational Therapy: 28(Schmx2) Pager: [phone] ANTWON Mata Occupational Therapy Rehabilitation Department * [...] 14.06) (Bilateral) LIVER BIOPSY (N/A) Appliance: Removed Putney 1 09/12 with adapt ring, replaced with the same [...] Midline incision well approximated and left ANTWON. DARYN draining serous fluid. Dressing dry and [...] ?? * Consult Note - Clayton Norris MANAGER SALES AND MARKETING - 02/21/2020 3:52 PM EDT BIT Evaluation [...] is continuing to care for his pet candy Chicas. He also stated that his landlord has [...] open to follow up later this week. Geotechnical Field Technician agreed to follow up with him either or Wednesday. Assessment: Pt was lying in bed, was A&O, and open to meeting with BRITTNI KANGW. He presented as being calm and relaxed [...] and is actively participating in his care. Geotechnical Field Technician will continue to discuss with pt impact of cur rent health status, so as to provide more thorough assessment and explore how best to provide supportive services at this time. Interventions delivered: Supportive therapy Plan: 1) Geotechnical Field Technician will follow up with pt again later [...] fall off a doroteo) in 1990 [place] he woke up during the procedure [...] CT Guided Biopsy Lymph Node (Chest/Abd/Pelvis) 01/31/2020 [facility] RAD CAT SCAN ??? HIP FRACTURE SURGERY Right 1991 ??? INGUINAL HERNIA REPAIR Right ? IR MEDIPORT PLACEMENT/EXCHANGE ?? 11/27/2019 ?? IR Mediport Placement 11/27/2019 Jason Lujan, NAHID [facility] INTERVENTIONL RAD ??? PRO CYSTECTOMY, ILEAL CONDUIT/SIGMOID BLADDER N/A 02/13/2020 ?? @CYSTECTOMY, COMPLETE, WITH ILEAL CONDUIT (WRVU 36.33) performed by Nima Armstrong MD at [facility] MAIN OR ??? PRO NEEDLE BIOPSY LIVER N/A 02/13/2020 ?? LIVER BIOPSY performed by Nima Armstrong MD at [facility] MAIN OR ??? PRO REMOVE PELVIS LYMPH NODES Bilateral 02/13/2020 ?? @LYMPHADENECTOMY, PELVIC, INCLUDING MULTIPLE NODES-FELA (WRVU 14.06) performed by Nima Armstrong MD at [facility] MAIN OR ?? Social History: Patient lives with [...] Total Evaluation Minutes, Occupational Therapy: 26(Schmx2) Pager: [phone] ANTWON Mata Occupational Therapy Rehabilitation Department * [...] fall off a doroteo) in 1990 [place] he woke up during the procedure [...] history of cancer Social History: Lives in [place], [place]. IN an older apartment building. Denies [...] (Bilateral) LIVER BIOPSY (N/A) Appliance: Intact 1 09/12 with adapt ring. Changed: [x} No Stoma: [place], budded, round, blue and red stents in [...] to infuse. Urostomy with low urine output, MD aware. [...] Implemented as Appropriate) 02/20/20 0730 02/20/20 1800 02/20/202122 Daily Care Interventions Self-Care Promotion independence encouraged;BADL [...] Control Outcome: Ongoing (Interventions Implemented as Appropriate) 02/20/202122 Safety Interventions Isolation Precautions standard precautions maintained [...] Nurse Note Situation: Asked to see Wally Mary Aguilar by nursing for Scrotal skin breakdown [...] Please contact Nuria Nixon RN on pager [phone] or the wound care team at [phone] or pager [phone] with skin and wound care concerns or questions. * Consult Note - Annette Escamilla RN - 02/20/2020 1:49 PM EDT Inpatient post op note Diagnosis: Bladder Cancer Surgery/Date: Procedure(s) (LRB): @CYSTECTOMY, COMPLETE, WITH ILEAL CONDUIT (WRVU 36.33) (N/A) @LYMPHADENECTOMY, PELVIC, INCLUDING MULTIPLE NODES-FELA (WRVU 14.06) (Bilateral) LIVER BIOPSY (N/A) Appliance: Intact 1 3/4 w/adapt ring Changed: [x} No Stoma: [place], round, blue and red stent present, red [...] has been helping him for several months TELEPHONIC RN pt was using a cane DME:cane Precautions/Special Considerations: fall, AWAKE OVERNIGHT MONITOR, ileal conduit, drain, IVs, RLE pain, flexiseal, [...] his friend. Discussed with PA, resident, and care transition mgr. Equipment needs: Rolling walker, pt has a [...] TEF x 2 MILLER ALEXIS, PT Pager: [phone] Physical Therapy Inpatient Rehabilitation Department * Plan [...] Bearden Fall Risk History of Falling -- 27 [...] Control Outcome: Ongoing (Interventions Implemented as Appropriate) 08/10/20 2123 Safety Interventions Isolation Precautions standard precautions [...] active in care today, denied pain, reporting 1/10 but still endorsing discomfort with throat soreness/swallowing and heartburn, team notified and IV protonix increased, DRINKING WATER TECHNICIAN consulted. Pt continues with low PO intake, [...] hesitate to call the Ostomy Nurses at [phone]. Equipment: Company/Order Numbers Wet and dry soft cloth (paper towels) Plastic bag Pen, Scissors, stoma patter Appliance pouch Putney 1 09/12 #59709 Wafer, Cera Plus Naveen 1 09/12 #08177 Protective powder Putney # 0000 Adapt Paste Putney # 39747 Nosting Skin Barrier Wipe [facility] # [id number] Barrier ring Putney # 7805 Barrier strips Coloplast # [id number] Night Drainage Educational Recruiter Bard #[id number] (catheter bag) OR [facility] night drainage container set #[id number] (hard plastic container) Procedure: 1. Wash Hands. [...] apply a dusting of Adapt protective powder. [place] off excess powder, or wafer will not [...] use; hang to dry. Change night drainage outside collector once a month. * Consult Note - Annette Escamilla RN - 02/19/2020 6:03 PM EDT Images from the original note were not included. Inpatient post op note Diagnosis: Bladder Cancer Surgery/Date: 02/13/20 Procedure(s) (LRB): @CYSTECTOMY, COMPLETE, WITH ILEAL CONDUIT (WRVU 36.33) (N/A) @LYMPHADENECTOMY, PELVIC, INCLUDING MULTIPLE NODES-FELA (WRVU 14.06) (Bilateral) LIVER BIOPSY (N/A) Appliance: Removed Naveen 3/4 w/ ring and replaced with the same Changed: [x} Yes Stoma: Red, between 07 12/4 and 09/16 round, blue and red stents [...] does not have any spares of the 1 3/4 in bag. He will need 5 spare rings and wafers as well as first page tomorrow. Possible DC end of the week according to case management note. Patient signed postcard today for kit. Stoma: * Consult Note - Tristan Glover S - 02/19/2020 5:34 PM EDT Images from [...] fall off a doroteo) in 1990 [place] he woke up during the procedure [...] CT Guided Biopsy Lymph Node (Chest/Abd/Pelvis) 01/31/2020 [facility] RAD CAT SCAN ??? HIP FRACTURE SURGERY Right 1991 ??? INGUINAL HERNIA REPAIR Right ??? IR MEDIPORT PLACEMENT/EXCHANGE 11/27/2019 IR Mediport Placement 11/27/2019 Jason Lujan, PA [facility] INTERVENTIONL RAD ??? PRO CYSTECTOMY, ILEAL CONDUIT/SIGMOID BLADDER N/A 02/13/2020 @CYSTECTOMY, COMPLETE, WITH ILEAL CONDUIT (WRVU 36.33) performed by Nima Armstrong MD at [facility] LYNETTE ??? PRO NEEDLE BIOPSY LIVER N/A 02/13/2020 LIVER BIOPSY performed by Nima Armstrong MD at [facility] MAIN OR ??? PRO REMOVE PELVIS LYMPH NODES Bilateral 02/13/2020 @LYMPHADENECTOMY, PELVIC, INCLUDING MULTIPLE NODES-FELA (WRVU 14.06) performed by Nima Armstrong MDat [facility] MAIN OR Social History Socioeconomic History ??? [...] file Gets together: Not on file Attends moravian service: Not on file Active member of [...] No drug use. He grew up in [facility] and finished 11th grade. 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 He is and has 3 children, 2 live in [place] and one daughter in [employer] in [facility]; he has limited contact with them. His brother David age 66 [address] but has significant health challenges as well. He has a [facility] telehealth case manager, Ketty Ricketts who is also his landlord [...] Resp: [16-20] SpO2 SpO2: [93 %-98 %] 02/17 0701 - 02/18 0700 In: [...] * Plan of Care - Jasper Vaughan, DRINKING WATER TECHNICIAN - 02/19/2020 9:41 AM EDT Speech Therapy [...] at least 30 mins following No further DRINKING WATER TECHNICIAN intervention is warranted while hospitalized. Speech Therapy Goals: (To be met by discharge) N/A Plan: Therapy Frequency: evaluation only Pt./family are in agreement with treatment plan. Total Evaluation Minutes, Speech Language Pathology: 25 Thank you for this consult with this patient. Please feel free to page me with any questions or concerns. Jasper Vaughan MS, CCC-DRINKING WATER TECHNICIAN Pager: [phone] Speech-Language Pathology Inpatient Rehabilitation Department * Plan [...] Ongoing (Interventions Implemented as Appropriate) 02/16/20 0121 02/17/202126 Plan of Care Review Progress progress toward [...] Control Outcome: Ongoing (Interventions Implemented as Appropriate) 02/17/20 2127 Safety Interventions Isolation Precautions standard precautions maintained [...] sit up in chair for 30 minutes. [id number]: 500ml LR bolus given. C Dif. Negative. [...] anti-psychotic, sleep aids, anti-histamines), has sensory deficits ([place], wears glasses, tactile deficits), forgets limitations, problems [...] difficulty breathing. Patient reports the pain as /10, MD stokes, IV protonix ordered and given with good [...] (Bilateral) LIVER BIOPSY (N/A) Appliance: Intact 1 09/12 w/ ring Changed: [x} No Stoma: [place], budded, edematous, red stent drips urine, blue [...] next week. * Plan of Care - Derik-Jono Medel RN - 02/16/2020 1:23 AM EDT Problem: [...] (Interventions Implemented as Appropriate) 02/15/20 2139 02/16/20 0023 Daily Care Interventions Self-Care Promotion independence [...] Ongoing (Interventions Implemented as Appropriate) 02/15/20 2139 Safety Interventions Isolation Precautions standard precautions maintained [...] outcome * Plan of Care - Chantale Tavares, OT - 02/15/2020 3:41 PM EDT Occupational [...] fall off a doroteo) in 1990 [place] he woke up during the procedure [...] CT Guided Biopsy Lymph Node (Chest/Abd/Pelvis) 01/31/2020 [facility] RAD CAT SCAN ??? HIP FRACTURE SURGERY Right 1991 ??? INGUINAL HERNIA REPAIR Right ??? IR MEDIPORT PLACEMENT/EXCHANGE 11/27/2019 IR Mediport Placement 11/27/2019 Jason Lujan, NAHID [facility] INTERVENTIONL RAD ??? PRO CYSTECTOMY, ILEAL CONDUIT/SIGMOID BLADDER N/A 02/13/2020 @CYSTECTOMY, COMPLETE, WITH ILEAL CONDUIT (WRVU 36.33) performed by Nima Armstrong MD at [facility] LYNETTE ??? PRO NEEDLE BIOPSY LIVER N/A 02/13/2020 LIVER BIOPSY performed by Nima Armstrong MD at [facility] MAIN OR ??? PRO REMOVE PELVIS LYMPH NODES Bilateral 02/13/2020 @LYMPHADENECTOMY, PELVIC, INCLUDING MULTIPLE NODES-FELA (WRVU 14.06) performed by Nima Armstrong, MDat [facility] MAIN OR Social History: Patient lives with [...] and measurable assessment of functional outcome. Pager: [phone] Chantale Tavares OT 02/15/2020 Occupational Therapy Rehabilitation [...] fall off a doroteo) in 1990 [place] he woke up during the procedure [...] CT Guided Biopsy Lymph Node (Chest/Abd/Pelvis) 01/31/2020 [facility] RAD CAT SCAN ??? HIP FRACTURE SURGERY Right 1991 ??? INGUINAL HERNIA REPAIR Right ??? IR MEDIPORT PLACEMENT/EXCHANGE 11/27/2019 IR Mediport Placement 11/27/2019 Jason Lujan, PA [facility] INTERVENTIONL RAD ??? PRO CYSTECTOMY, ILEAL CONDUIT/SIGMOID BLADDER N/A 02/13/2020 @CYSTECTOMY, COMPLETE, WITH ILEAL CONDUIT (WRVU 36.33) performed by Nima Armstrong MD at [facility] LYNETTE ??? PRO NEEDLE BIOPSY LIVER N/A 02/13/2020 LIVER BIOPSY performed by Nima Armstrong MD at [facility] MAIN OR ??? PRO REMOVE PELVIS LYMPH NODES Bilateral 02/13/2020 @LYMPHADENECTOMY, PELVIC, INCLUDING MULTIPLE NODES-FELA (WRVU 14.06) performed by Nima Armstrong MDat [facility] MAIN OR Social History: Pt lives with a friend in a single level apartment with FOS to enter. TELEPHONIC RN pt was using a cane DME:cane Precautions/Special Considerations: fall, AWAKE OVERNIGHT MONITOR, ileal conduit, drain, IVs, RLE pain Diet: [...] RLE, stays on toes, incisional pain, using AWAKE OVERNIGHT MONITOR Vital Signs: SpO2: 92% on RA HR: [...] Therapy: (P) 32 MILLER ALEXIS, PT Pager: [phone] Physical Therapy Inpatient Rehabilitation Department * Plan [...] to BR 2x to sit on toilet; mechanical laboratory technician bedside for appliance xchg; BIT bedside for [...] Conf Participants nursing;physician;physical therapy;social work/services * Consult Jayna - Annette Escamilla RN - 02/15/2020 3:17 PM EDT mechanical laboratory technician note: Received return call from OR staff [...] extremity claudication, hyperlipidemia and bladder CA. BIT MANAGER SALES AND MARKETING met with pt in room and provided him with a general overview of BIT role and services available. Pt indicate that he would be open to engaging in BIT services at this time. Pt reported that he currently lives in a rented 2nd floor apt, which he shares with his friend Boubacar. Pt reported that he is retired and that he relocated to [place] from [place] 4 years ago to help support his [...] bed and was open to meeting with BIT MANAGER SALES AND MARKETING. Pt presented as quiet/subdued, with noticeable abdominal discomfort throughout the meeting . While he engaged in discussion he made little eye contact, and often benefited from prompting. Speech was quiet with responses at times being somewhat delayed. Thoughts were closely associated. Pt acknowledges that he is finding it difficult to cope with current hospitalization and is open to exploring BIT supportive services. Geotechnical Field Technician will follow up with pt later today or tomorrow to continue discussion and complete biopsychosocial. Interventions delivered: Supportive therapy Plan: 1) BIT MANAGER SALES AND MARKETING will follow up with pt either later [...] 14.06) (Bilateral) LIVER BIOPSY (N/A) Appliance: Removed Naveen 09/12, replaced with same but added a ring as there was leakage from 1 to 5 oclock on medial side Changed: [x} Yes Stoma: Red, budded, edematous, in between 07/15 and 09/16 round, blue and red stents present - [...] was able to state that he was [facility] in [place], [place] but did not know the name. [...] Ongoing (Interventions Implemented as Appropriate) 02/14/20 1549 Skin Integrity Impairment, Risk/Actual Skin Integrity Impairment, [...] the patient. History of Present Illness: Wally Augilar is a 69 y.o. male with a [...] surgery (hip from a fall off a doorteo) in 1990 in [place] he woke up during the procedure [...] CT Guided Biopsy Lymph Node (Chest/Abd/Pelvis) 01/31/2020 [facility] RAD CAT SCAN ??? HIP FRACTURE SURGERY Right 1992 ??? INGUINAL HERNIA REPAIR Right ??? IR MEDIPORT PLACEMENT/EXCHANGE 11/27/2019 IR Mediport Placement 11/27/2019 Jason Lujan, NAHID [facility] INTERVENTIONL RAD ??? PRO CYSTECTOMY, ILEAL CONDUIT/SIGMOID BLADDER N/A 02/13/2020 @CYSTECTOMY, COMPLETE, WITH ILEAL CONDUIT (WRVU 36.33) performed by Nima Armstrong MD at [facility] LYNETTE ??? PRO NEEDLE BIOPSY LIVER N/A 02/13/2020 LIVER BIOPSY performed by Niam Armstrong MD at [facility] MAIN OR ??? PRO REMOVE PELVIS LYMPH NODES Bilateral 02/13/2020 @LYMPHADENECTOMY, PELVIC, INCLUDING MULTIPLE NODES-FELA (WRVU 14.06) performed by Nima Armstrong MDat [facility] MAIN OR Social History: Social History Socioeconomic [...] on phone: None Gets together: None Attends moravian service: None Active member of club or [...] No drug use. He grew up in [facility] and finished 11th grade. 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 He is and has 3 children, 2 live in [place] and one daughter in [employer] in [facility]; he has limited contact with them. His brother aDvid age 66 [address] but has significant health challenges as well. He has a [facility] telehealth case manager, Ketty Ricketts who is also his landlord [...] hours. Pertinent Radiographic/Diagnostic Results: Vascular Labs: ABIs 02/14/20: Findings: ?? Right ?Pressure (mm Hg) ?? KAMAR ??Waveform ? Common Femoral Artery ?Monophasic ?? Popliteal Artery ? Monophasic ?? Dorsalis Pedis (Ankle) Artery ?31 ?0.36 ??Monophasic ?? Posterior Tibial (Ankle) Artery ??26 ?0.30 ??Monophasic ? Left ? Pressure (mm Hg) ?? KAMAR ??Waveform ? Brachial Artery ?86 ? Common Femoral Artery ?Warrick- Biphasic ?? Popliteal Artery ? Warrick-Biphasic ?? Dorsalis Pedis (Ankle) Artery ?61 ?0.71 ??Warrick- Biphasic ?? Posterior Tibial (Ankle) Artery ??73 ?0.85 ??Warrick-Biphasic ? Interpretation: ?? RIGHT: Moderately severe lower [...] required. Laurence Rousseau MD Vascular Surgery Pager: [phone] 02/14/20 * Plan of Care - Chantale Tavares OT - 02/14/2020 3:55 PM EDT Occupational Therapy Note: Order received and chart reviewed. Pt JJ for vasculary study this PM, and unavailable for OT evaluation. OT to f/u as available/appropriate for therapy. Bing Tavares OT Inpatient Rehab Pager #[phone] * Initial Assessments - Dora Lind RN [...] fall off a doroteo) in 1990 [place] he woke up during the procedure [...] Hospitalizations Within the Past 30 Days: no [facility] admits in last 30 days. Anticipated Length Of Stay (If known): Expected Length of Hospitalization: 5 days Vs TBD COVID test done: 02/10/2020 at 12:33 Current Decision-Making Capacity: Patient is A&Ox4 and able to make all medical decisions Advance Care Planning: Attempt Cardiopulmonary Resuscitation - Inpatient Not in [facility]. Report no close family nearby, closest relative is brother David Aguilar. MANAGER SALES AND MARKETING consulted for advance directives. Current Coping/Education/Information Needs: Current coping questions and concerns have been addressed. Current Functional Ability: assist of staff, on AWAKE OVERNIGHT MONITOR pump due to postoperative pain. Functional Status [...] and has a vehicle. [address] [place] [address] Social & Family Supports/Community Resources: kalpesh Hdez, neighbors. Extended Emergency Contact Information Primary Emergency Contact: Ketty Ricketts Mobile Relation: Friend Secondary Emergency Contact: DAVID AGUILAR [place] Relation: Sibling Behavioral Health History: none reported Substance Use/Abuse:active one pack a day smoker, reports moderate daily ETOH use. Health/Prescription Coverage: Primary Insurance: MEDICARE Secondary Insurance: MEDICAID [place] Prescription Coverage: Yes Preferred Pharmacy: [id number] - [place], [place] - [address] [facility] [address] [address] [facility] - [place], [place] - [address] [facility] [address] [facility] [address] Other: none Primary Care Provider: Subhash Dowling MD [phone] Patient/Caregiver Goals of Treatment: return to previous [...] referrals are placed. Patient requests referral to [facility]. PHONE: [phone] FAX: [phone] Expected date of discharge: tbd Plan: A member of the Care Management team will continue to monitor progress, follow for continuityof care and assist with transition of care planning. Dora Lind, RN Nurse Mechanical Systems Control Engineer Pager [phone] * Plan of Care - Miller Alexis PT - 02/14/2020 2:47 PM EDT 02/14/20 2543 Rehab Evaluation Document Type contact Total Evaluation [...] knowledge exchange at bedside; purposeful rounding; call ovra in reach; environmental modifications; comfort and safety [...] Outcome: Ongoing (Interventions Implemented as Appropriate) 02/14/20 0724 Safety Interventions Isolation Precautions standard precautions maintained Infection Prevention barrier precautions utilized;cohorting utilized;environmental surveillance performed;rest/sleep promoted Coping Strategies Supportive Measures active listening utilized;goal setting facilitated;self-care encouraged Goal: Discharge Needs Assessment Outcome: Ongoing (Interventions Implemented as Appropriate) 02/14/201406 Discharge Needs Assessment Concerns To Be Addressed adjustment to diagnosis/illness concerns Readmission Within The Last 30 Days no previous admission in last 30 days Equipment Needed After Discharge colostomy/ostomy supplies Discharge Disposition still a patient Living Environment Transportation Available Medicaid transportation;family or friend will provide Goal: Interdisciplinary Rounds/Family Conf Outcome: Ongoing (Interventions Implemented as Appropriate) 02/14/201406 Interdisciplinary Rounds/Family Conf Participants patient;physician;nursing;ostomy/continence specialist;social work/services Problem: Nausea/Vomiting (Adult) Goal: Identify Related Risk Factors and Signs and Symptoms Related risk factors and signs and symptoms are identified upon initiation of Human Response Clinical Practice Guideline (CPG) Outcome: Ongoing (Interventions Implemented as Appropriate) 02/14/201406 Nausea/Vomiting Nausea/Vomiting: Related Risk Factors medication effects;recent surgery with general anesthesia Nausea/Vomiting: Signs and Symptoms abdominal discomfort/pain;report of queasy sensation Goal: Symptom Relief Patient will demonstrate the desired outcomes by discharge/transition of care. Outcome: Unable to achieve outcome by discharge 02/14/201406 Nausea/Vomiting (Adult) Symptom Relief making progress toward outcome * Consult Note - Shelby Gilliland RN - 02/14/2020 10:04 AM EDT mechanical laboratory technician consult note - pt wearing a nicely intact Naveen 1 3/4 pouch hooked up to a bedside drainage bag. Pt was not up for any education today; no, please don't touch that bag too much. Did talk with pt's staff development coordinator rnEkta, re: educating pt throughout the day, which she is planning to dotoday. Will plan to change the pouch with Vinny tomorrow. Dropped off ostomy supply bag & folder. Pt has 1 spare Putney 2 1/4 wafer & pouch and one spare Naveen 1-piece pouch in his supply bag. ZACKARY Nichols, RN, CWOCN 02/14/2020 Enterostomal Therapy Team Pager #[phone] * Consult Note - Shelby Gilliland RN [...] using -Name of Surgeon and telephone number [employer] [facility] (www.[email or web address]) Pad Tufter: Zaida Pedroza [phone] [employer] (www.SquareClock) [employer] (Algotochip.sterGlu Mobile) [employer] (www.Mis Descuentos.DOMAIN Therapeutics/welcome [employer] (www.comfortmedical.DOMAIN Therapeutics) [employer] (www.FlickIMedicalMessage Busts.net) [employer] (Liquiverse) *If you wear Immune System [employer]rapeutics products and are having a difficult time finding a vendor that will accept your Insurance you may call Naveen at . They have a team of 30 Insurance experts whowill help you find a vendor that can bill your Insurance Company. Remember, if they need to return your call expect a call from [place], in case you are screening your calls. [...] Outcome: Ongoing (Interventions Implemented as Appropriate) 02/13/20 2142 02/14/20 7225 Plan of Care Review Progress -- progress toward functional goals as expected Coping/Psychosocial Plan Of Care Reviewed With patient -- OUTCOME EVALUATION NOTE: OUTCOME SUMMARY: Received report from KEYA Van in PACU. Arrived to room 211A at approximately 2130. Patient lethargic but oriented x4. Patient intermittently tachycardic in low 100's, otherwise VSS. IS teaching completed. SCD's on. Oriented to use of call vroa, bed.chair alarm, and 2 West falls prevention program. Upon arrival to the floor calcium was 6.9, MD paged and 2 runs of Calcium gluconate given, calcium rechecked with AM labs 7.3. Abdominal pain well controlled with PCEA and scheduled medications. Patient complaining of RLE pain, foot warm and DP 1+, MD paged to bedside to assess. Urostomy with [...] Handling Outcome: Ongoing (Interventions Implemented as Appropriate) 02/13/20214402/14/20 0408 Daily Care Interventions Self-Care Promotion -- independence [...] Operative Note Patient Name: Wally Aguilar : [id number] MR#: [id number] Case Date: 02/13/2020 Surgeon: Surgeon(s) and Role: [...] No SPECIMEN TO PATHOLOGY OR# 28 ext [id number] Bladder Cancer Bladder and Prostate excision No 02/13/2020 12:57 PM Time specimen removed from patient: 12:55 PM Number of tissue samples (in container) 1 Biospecimen to store? No SPECIMEN TO PATHOLOGY OR#28 ext [id number] Bladder Cancer Left Common and External Lymph Nodes excision No 02/13/2020 1:15 PM Time specimen removed from patient: 1:14 PM Number of tissue samples (in container) 1 Biospecimen to store? No SPECIMEN TO PATHOLOGY OR#28 Ext [id number] Bladder Cancer Left Internal Iliac Lymph Nodes [...] closure: Yes Sterile closure tray used: Yes Rnetnuqaa-gapxkqfuw-gunznllbra abdominal cavity wash: Yes Qadrjdson-wvbjlarcl-rwoulbufxc wound wash: Yes * Op Note - Sarbjit Palencia MD - 02/13/2020 2:21 PM EDT [facility] Operative Note Patient Name: Wally Aguilar : [id number] MR#: [id number] Case Date: 02/13/2020 Surgeon: Surgeon(s) and Role: [...] No SPECIMEN TO PATHOLOGY OR# 28 ext [id number] Bladder Cancer Bladder and Prostate excision No 02/13/2020 12:57 PM Time specimen removed from patient: 12:55 PM Number of tissue samples (in container) 1 Biospecimen to store? No SPECIMEN TO PATHOLOGY OR#28 ext [id number] Bladder Cancer Left Common and External Lymph Nodes excision No 02/13/2020 1:15 PM Time specimen removed from patient: 1:14 PM Number of tissue samples (in container) 1 Biospecimen to store? No SPECIMEN TO PATHOLOGY OR#28 Ext [id number] Bladder Cancer Left Internal Iliac Lymph Nodes [...] using interrupted 4-0 Vicryl sutures. A 7 Botswanan single J stent was inserted, one in [...] closure: Yes Sterile closure tray used: Yes Lnkpqcfuf-uqpdbtknc-ddwpvmtlsc abdominal cavity wash: Yes Ykoszuxvq-xiyqpkkju-zewrjptjez wound wash: Yes Associated attestation - Nima [...] 11:30 AM EST Office Visit Hematology/Oncology at [address] [phone] Chanelle Kim [facility] [place] [address] Bee Curry [facility] [place] [address] documented as of this encounter Procedures Procedure Name Priority Date/Time Associated Diagnosis Comments SURGICAL PATHOLOGY REPORT Routine 03/06/2020 8:26 AM EDT SPECIMEN TO PATHOLOGY Routine 03/06/2020 8:26 AM EDT Upper Gi Endoscopy, Biopsy ([id number]) 03/06/2020 8:12 AM EDT EGD UPPER GI [...] 2:05 AM EDT DIFFERENTIAL, AUTOMATED Routine 02/24/20 2:05 AM EDT HC CBC,PLT & AUTO [...] 02/18/2020 6:30 PM EDT CRYPTOSPORIDIUM OOCYST ANTIGEN ([facility]/CGP/APD) Routine 02/18/2020 10:59 AM EDT HC GIARDIA ANTIGEN MAAME METHOD Routine 02/18/2020 10:59 AM EDT GIARDIA ANTIGEN ([facility]/CGP/APD/NLH) Routine 02/18/2020 10:59 AM EDT HC CREATININE - NON BLOOD Routine 02/18/2020 10:59 AM EDT HC VENIPUNCTURE Routine 02/18/2020 9:33 AM EDT HEMOGRAM Timed 02/18/2020 8:05 AM EDT DIFFERENTIAL, AUTOMATED Timed 02/18/20 20 8:05 AM EDT HC CBC,PLT & AUTO DIFF Timed 0 8:05 AM EDT HEMOGRAM Routine 02/17/2020 5:30 AM EDT DIFFERENTIAL, AUTOMATED Routine 02/17/20 5:30 AM EDT HC CBC,PLT & AUTO [...] OR USE Routine 02/13/2020 8:57 AM EDT SCAN, PERIPHERAL BLOOD Routine 0 7:05 AM [...] EDT) Glucose 137 65 - 199 mg/dL [facility] Comment:Diabetes: >=200 mg/d L plus symptoms Blood Urea Nitrogen 44(H) 10 - 20 mg/dL [facility] Creatinine 1.17 0.80 - 1.50 mg/dL [facility] Sodium 140 135 - 145 mmol/L [facility] Potassium 4.1 3.5 - 5.0 mmol/L [facility] Comment: Please note: ??Patients with WBC >100,000 may have falsely elevated Potassium levels. ??For accurate Potassium quantification in these patients send serum separator tube (gold top) for subsequent determinations. ??Contact the Clinical Chemistry Laboratory if there are any questions. Chloride 108(H) 98 - 107 mmol/L [facility] Carbon Dioxide 20(L) 22 - 31 mmol/L [facility] Anion Gap 12 5 - 15 mmol/L [facility] Calcium 9.2 8.5 - 10.5 mg/dL [facility] Protein, Total 6.9 6.1 - 8.0 gm/dL [facility] Albumin 3.6 3.2 - 5.2 gm/dL [facility] Aspartate Aminotransferase 21 0 - 39 unit/L [facility] Alanine Aminotransferase 37 0 - 55 unit/L [facility] Alkaline Phosphatase 176(H) 40 - 130 unit/L [facility] Bilirubin, Total <0.2(L) 0.2 - 1.3 mg/dL [facility] Est Glomerular Filtration Rate 64 >=60 mL/min/1. 73 m?? [facility] Comment: The eGFR was calculated using the CKD-EPI equation. As with all creatinine based estimates of kidney function, eGFR values calculated with the CKD-EPI equation are not accurate in patients with acute kidney failure, extremes of body mass or the acutely ill. http://Picovico/[facility]nk[facility] eGFR 74 >=60 mL/min/1. 73 m?? [facility] Comment: The eGFR was calculated using the CKD-EPI equation. As with all creatinine based estimates of kidney function, eGFR values calculated with the CKD-EPI equation are not accurate in patients with acute kidney failure, extremes of body mass or the acutely ill. [email or web address] Blood specimen (specimen) 03/25/2020 1:27 PM EDT 03/25/2020 1:51 PM EDT Narrative Resulting Agency Comment Spec In Lab Nima Armstrong MD CHEMISTRY ORDERABLES [facility] [place] [address] * CT Angiogram Aortic Lower Extremity Runoff [...] contact the number below. Nima Armstrong MD IMG CT ORDERABLES * Surgical Pathology Report (03/06/2020 8:26 AM EDT) Final Diagnosis [id number] ? Location: 2WST; 0206; A The signing pathologist has (i) examined the relevant preparation(s) for the specimen(s) and (ii) rendered or confirmed the diagnosis(es). . ?Surgical Pathology DIAGNOSIS Esophagus, ??biopsy: Esophageal squamous mucosa within normal limits. Electronically signed by: ??Kalani Cabrera MD Verified: ??03/08/2020 ?Pathologist Performed at: ??-[facility] Dept. of Pathology, [place], [place] SPECIMEN(S) SUBMITTED A - esophageal bx, biopsy (1) CLINICAL INFORMATION Nausea, vomiting and dysphagia SPECIMEN PROCESSING A - Labeled/Fixativ e: Esophageal biopsy, formalin. Quantity/Size: Two, each 0.3 cm. Tissue Description: Soft, wispy pink-white tissues. Sections/Proces sing: Submitted en toto ??in 1 cassette labeled A1. ??ajw 03/08/2020 9:59 PM EDT [facility] GI Biopsy 03/06/2020 8:26 AM EDT 03/06/2020 8:26 AM EDT Chato York MD PATHOLOGY/CYTOLOGY O RDERABLES [facility] [place] [address] * Specimen to Pathology (03/06/2020 8:26 AM EDT) AP Specimen 03/06/2020 8:26 AM EDT 03/06/2020 8:26 AM EDT Narrative [facility] - 03/06/2020 8:26 AM EDT Specimen requisition ordered. ??Separate Pathology report to follow Nima Armstrong MD PATHOLOGY/CYTOLOGY O RDCATE [facility] [place] [address] * UPPER GI ENDOSCOPY (03/06/2020 8:07 AM EDT) UPPER GI ENDOSCOPY [facility] Procedure Date: 03/06/2020 8:07 AM ? Patient Name: Wally Aguilar ? [facility]: [id number] ? Date of : 1950 ? Age: 69 ? Order #: [id number] ? Instrument Name: [id number] ? Procedure: ? Upper GI endoscopy Indications: ? Dysphagia, Esophageal reflux symptoms ? that persist despite appropriate ? therapy Patient Profile: ? 69 yo M with food intolerance and ? nausea here for EGD. Providers: ? Chato York, Brandi Tapia ? KEYA Springer, Wally Valadez, ? Deloris Hinton MD: ?Subhash Dowling MD Medicines: ? Monitored [...] Procedure Code(s): ?? --- Professional --- ? 77680, Esophagogastroduo denoscopy, ? flexible, transoral; with biopsy, ? single or multiple CPT copyright 2019 [employer]. All rights reserved. The codes documented in this report are preliminary and upon decator operator review may be revised to meet current compliance requirements. Attending Participation: ? I was present and participated during the entire ? procedure, including non-wilson portions. ? __ Chato York, 03/06/2020 8:47:19 AM Number of Addenda: 0 Note Initiated On: 03/06/2020 8:07 AM PROVATION 03/06/2020 8:07 AM EDT Subhash Dowling MD GENERAL SURGICAL ORD ERABLES Performing Organization Address [facility] de Phone Number PROVATION * Phosphorus (03/06/2020 1:45 AM EDT) Phosphorus 4.0 2.5 - 4.5 mg/dL [facility] Blood specimen (specimen) 03/06/2020 1:45 AM EDT 03/06/2020 1:55 AM EDT Narrative Resulting Agency Comment Spec In Lab Nima Armstrong MD CHEMISTRY ORDERABLES Performing Organization Address [facility] de Phone Number [facility] [place] [address] * Magnesium (03/06/2020 1:45 AM EDT) Magnesium 0.96 0.69 - 1.07 mmol/L [facility] Blood specimen (specimen) 03/06/2020 1:45 AM EDT 03/06/2020 1:55 AM EDT Narrative Resulting Agency Comment Spec In Lab Nima Armstrong MD CHEMISTRY ORDERABLES Performing Organization Address [facility] de Phone Number [facility] [place] [address] * (ABNORMAL) Basic Metabolic Panel (non-fasting) (03/06/2020 1:45 AM EDT) Glucose 99 65 - 199 mg/dL [facility] Comment:Diabetes: >=200 mg/d L plus symptoms Blood Urea Nitrogen 46(H) 10 - 20 mg/dL [facility] Creatinine 0.85 0.80 - 1.50 mg/dL [facility] Sodium 137 135 - 145 mmol/L [facility] Potassium 5.1(H) 3.5 - 5.0 mmol/L [facility] Comment: Please note: ??Patients with WBC >100,000 may have falsely elevated Potassium levels. ??For accurate Potassium quantification in these patients send serum separator tube (gold top) for subsequent determinations. ??Contact the Clinical Chemistry Laboratory if there are any questions. Chloride 105 98 - 107 mmol/L [facility] Carbon Dioxide 22 22 - 31 mmol/L [facility] Anion Gap 10 5 - 15 mmol/L [facility] Calcium 9.3 8.5 - 10.5 mg/dL [facility] Est Glomerular Filtration Rate 90 >=60 mL/min/1. 73 m?? [facility] Comment: The eGFR was calculated using the CKD-EPI equation. As with all creatinine based estimates of kidney function, eGFR values calculated with the CKD-EPI equation are not accurate in patients with acute kidney failure, extremes of body mass or the acutely ill. [email or web address] eGFR 104 >=60 mL/min/1. 73 m?? [facility] Comment: The eGFR was calculated using the CKD-EPI equation. As with all creatinine based estimates of kidney function, eGFR values calculated with the CKD-EPI equation are not accurate in patients with acute kidney failure, extremes of body mass or the acutely ill. [email or web address] Blood specimen (specimen) 03/06/2020 1:45 AM EDT 03/06/2020 1:55 AM EDT Narrative Resulting Agency Comment Spec In Lab Nima Armstrong MD CHEMISTRY ORDERABLES [facility] [place] [address] * COVID-19 PCR (03/05/2020 11:03 AM EDT) SARS-CoV-2 RNA Not Detected Not Detected [facility] Comment: This result should be interpreted in combination with the clinical observations, patient history and epidemiological information. For testing of asymptomatic individuals, assay performance characteristics and clinical utility have not been evaluated. Testing for SARS-CoV-2 (Severe acute respiratory syndrome coronavirus 2, formerly known as 2019 novel coronavirus or 2019-nCoV) to aid in the diagnosis of COVID-19 is performed using the [employer] RealTime SARS-CoV-2 as authorized by the FDA Emergency Use Authorization (EUA). This EUA assay is intended for In-vitro Diagnostic (IVD) use with respiratory specimens such as nasopharyngeal swabs collected from individuals during the acute phase of infection. This assay is performed based on the instructions for use provided by the [employer] and additional guidance provided by CDC and FDA. Testing is performed in the [facility] Laboratory within the Department of Pathology and Laboratory Medicine at [facility], certified under the Clinical Laboratory Improvement [...] fact sheets at the following FDA website: https://www.fda.gov/medical-devices/mkquwkfyz-ifpmludpzc-kxfietb-devices/emergen -us e-authorizations#ywayf75fpz SARS-CoV-2 RNA Source [employer] Swab [facility] Nasopharyngeal swab (specimen) 03/05/2020 11:03 AM EDT 03/05/2020 1:15 PM EDT Comment:Needed for admission to SNF/rehab Narrative Resulting Agency Comment Spec In Lab Nima Armstrong MD MOLECULAR ORDERABLES [facility] [place] [address] * CRP, cardiac risk (HS CRP) (02/29/2020 2:32 PM EDT) C-Reactive Protein High Sensitivity 13.0 mg/L [facility] Comment: For cardiac risk assessment, two [...] 2003; [id number] CRP Cardiac Risk Acute Inflammation [facility] Blood specimen (specimen) 02/29/2020 2:32 PM EDT 02/29/2020 3:16 PM EDT Narrative Resulting Agency Comment Spec In Lab Nima Armstrong MD CHEMISTRY ORDERABLES Performing Organization Address [facility] de Phone Number [facility] [place] [address] * (ABNORMAL) Sedimentation rate (02/29/2020 2:32 PM EDT) Sedimentation Rate Automated 101(H) 2 - 37 mm/hr [facility] Comment: Effective June 21, 2019 new capillary photometric technology has resulted in a change in reference ranges. It is recommended that each ESR result be reviewed with its own age appropriate reference range. Blood specimen (specimen) 02/29/2020 2:32 PM EDT 02/29/2020 3:16 PM EDT Narrative Resulting Agency Comment Spec In Lab Nima Armstrong MD HEMATOLOGY ORDERABLE S Performing Organization Address [facility] de Phone Number [facility] [place] [address] * Folate, serum (02/29/2020 1:57 AM EDT) Folate 10.9 4.8 - 24.2 ng/mL [facility] Blood specimen (specimen) 02/29/2020 1:57 AM EDT 02/29/2020 2:02 AM EDT Narrative Resulting Agency Comment Spec In Lab Nima Armstrong MD CHEMISTRY ORDERABLES [facility] [place] [address] * IR G-Tube Placement (02/28/2020 11:19 AM [...] started prior to his hospitalization. ?? Dr. Armstrong recommended GT for malnutrition. Consent: Informed consent [...] a guidewire was placed in the stomach. [id number] a tract was dilated with a 7 mm Ridge balloon. A 16 Fr balloon retained gastrostomy tube was placed [id number]. Retention balloon inflated with 5 cc sterile [...] Technically successful percutaneous placement of a 16 [place] balloon retained gastrostomy tube. Plan/Disposition: 1) To Angio recovery room. May transfer to floor when meets criteria. 2) Gastrostomy tube may be used in 8 hours if bowel sounds have returned. 3) Resume care by clinical service. 4) Gastropexy release in 7-10 days (ordered and IR flight crew scheduler notified). Head Still Operator(s): Resident Physician: Roberto Bradshaw DO Attending Physician: Toño Carmichael MD I, Dr. Carmichael, was present throughout the procedure. I was present during the intraservice time as documented by the IR Nurse. ?? 02/28/2020 Nima Armstrong MD IMG IR ORDERABLES * (ABNORMAL) Vitamin D, 25-Hydroxy (02/28/2020 9:15 AM EDT) Vitamin D Total 25 OH 15(L) 21 - 100 ng/mL [facility] Comment: Please note, effective November 15, 2019, additional result field for Vitamin D Interpretation, and updated flagging notification. Vit D Interp Deficient [facility] Blood specimen (specimen) 02/28/2020 9:15 AM EDT 02/28/2020 9:22 AM EDT Narrative Resulting Agency Comment Spec In Lab Nima Armstrong MD CHEMISTRY ORDERABLES [facility] [place] [address] * Vitamin B12 (02/28/2020 9:15 AM EDT) Pathologist [facility] Vitamin B12 765 232 - 1,245 pg/mL [facility] Blood specimen (specimen) 02/28/2020 9:15 AM EDT 02/28/2020 9:22 AM EDT Narrative Resulting Agency Comment Spec In Lab Nima Armstrong MD CHEMISTRY ORDERABLES Performing Organization Address City/[facility]/ZIP Co de Phone Number [facility] [place] [address] * TSH (02/28/2020 9:15 AM EDT) Thyroid Stimulating Hormone 1.32 0.27 - 4.20 mcIU/mL [facility] Blood specimen (specimen) 02/28/2020 9:15 AM EDT 02/28/2020 9:22 AM EDT Narrative Resulting Agency Comment Spec In Lab Nima Armstrong MD CHEMISTRY ORDERABLES Performing Organization Address City/[facility] Co de Phone Number [facility] [place] [address] * Phosphorus (02/28/2020 2:07 AM EDT) Phosphorus 4.1 2.5 - 4.5 mg/dL [facility] Blood specimen (specimen) 02/28/2020 2:07 AM EDT 02/28/2020 2:39 AM EDT Narrative Resulting Agency Comment Spec In Lab Willian Shaikh APRN CHEMISTRY ORDERA BLES Performing Organization Address City/[facility]/ZIP Co de Phone Number [facility] [place] [address] * Magnesium (02/28/2020 2:07 AM EDT) Magnesium 1.01 0.69 - 1.07 mmol/L [facility] Blood specimen (specimen) 02/28/2020 2:07 AM EDT 02/28/2020 2:39 AM EDT Narrative Resulting Agency Comment Spec In Lab Willian Shaikh PRESCRIPTIONIST CHEMISTRY ORDERA BLES [facility] [place] [address] * (ABNORMAL) Basic Metabolic Panel (non-fasting) (02/28/2020 2:07 AM EDT) Glucose 151 65 - 199 mg/dL [facility] Comment:Diabetes: >=200 mg/d L plus symptoms Blood Urea Nitrogen 67(H) 10 - 20 mg/dL [facility] Creatinine 0.83 0.80 - 1.50 mg/dL [facility] Sodium 148(H) 135 - 145 mmol/L [facility] Potassium 4.2 3.5 - 5.0 mmol/L [facility] Comment: Please note: ??Patients with WBC >100,000 may have falsely elevated Potassium levels. ??For accurate Potassium quantification in these patients send serum separator tube (gold top) for subsequent determinations. ??Contact the Clinical Chemistry Laboratory if there are any questions. Chloride 112(H) 98 - 107 mmol/L [facility] Carbon Dioxide 23 22 - 31 mmol/L [facility] Anion Gap 13 5 - 15 mmol/L [facility] Calcium 8.5 8.5 - 10.5 mg/dL [facility] Est Glomerular Filtration Rate 91 >=60 mL/min/1. 73 m?? [facility] Comment: The eGFR was calculated using the CKD-EPI equation. As with all creatinine based estimates of kidney function, eGFR values calculated with the CKD-EPI equation are not accurate in patients with acute kidney failure, extremes of body mass or the acutely ill. [email or web address] eGFR 106 >=60 mL/min/1. 73 m?? [facility] Comment: The eGFR was calculated using the CKD-EPI equation. As with all creatinine based estimates of kidney function, eGFR values calculated with the CKD-EPI equation are not accurate in patients with acute kidney failure, extremes of body mass or the acutely ill. [email or web address] Blood specimen (specimen) 02/28/2020 2:07 AM EDT 02/28/2020 2:39 AM EDT Narrative Resulting Agency Comment Spec In Lab Willian Shaikh ANTON CHEMISTRY ORDERA BLES [facility] [place] [address] * (ABNORMAL) Basic Metabolic Panel (non-fasting) (02/25/2020 2:02 AM EDT) Glucose 127 65 - 199 mg/dL [facility] Comment:Diabetes: >=200 mg/d L plus symptoms Blood Urea Nitrogen 39(H) 10 - 20 mg/dL [facility] Creatinine 0.75(L) 0.80 - 1.50 mg/dL [facility] Sodium 135 135 - 145 mmol/L [facility] Potassium 4.7 3.5 - 5.0 mmol/L [facility] Comment: Please note: ??Patients with WBC >100,000 may have falsely elevated Potassium levels. ??For accurate Potassium quantification in these patients send serum separator tube (gold top) for subsequent determinations. ??Contact the Clinical Chemistry Laboratory if there are any questions. Chloride 102 98 - 107 mmol/L [facility] Carbon Dioxide 23 22 - 31 mmol/L [facility] Anion Gap 10 5 - 15 mmol/L [facility] Calcium 8.0(L) 8.5 - 10.5 mg/dL [facility] Est Glomerular Filtration Rate 95 >=60 mL/min/1. 73 m?? [facility] Comment: The eGFR was calculated using the CKD-EPI equation. As with all creatinine based estimates of kidney function, eGFR values calculated with the CKD-EPI equation are not accurate in patients with acute kidney failure, extremes of body mass or the acutely ill. [email or web address] eGFR 110 >=60 mL/min/1. 73 m?? [facility] Comment: The eGFR was calculated using the CKD-EPI equation. As with all creatinine based estimates of kidney function, eGFR values calculated with the CKD-EPI equation are not accurate in patients with acute kidney failure, extremes of body mass or the acutely ill. [email or web address] Blood specimen (specimen) 02/25/2020 2:02 AM EDT 02/25/2020 2:06 AM EDT Narrative Resulting Agency Comment Spec In Lab Nima Armstrong MD CHEMISTRY ORDERABLES [facility] [place] [address] * Differential, Automated (02/24/2020 2:05 AM EDT) Neutrophil % 73.3 % [facility] Neutrophil Absolute 5.87 1.70 - 6.10 x10(3)/[facility] Lymph % 15.1 % [facility] Lymphocytes Abs 1.2 0.9 - 3.2 x10(3)/[facility] Monocyte % 8.3 % [facility] Monocyte Abs 0.7 0.3 - 0.9 x10(3)/[facility] Eos % 2.3 % [facility] Eosinophils Abs 0.2 0.0 - 0.4 x10(3)/[facility] Basophil % 0.5 % [facility] Baso Absolute 0.0 0.0 - 0.1 x10(3)/[facility] Immature Gran % 0.50 % [facility] Comment: Immature granulocytes(IG's)percentage and absolute count will include metamyelocytes, myelocytes, and promyelocytes. Blood smears from CBCs yielding IG's will be scanned manually for concordance. If this scan disagrees with the automated IG or if promyelocytes are noted, a manual differential will be performed. Immature Gran Absolute 0.04 0.00 - 0.04 x10(3)/[facility] Blood specimen (specimen) 02/24/2020 2:05 AM EDT 02/24/2020 2:30 AM EDT Narrative Resulting Agency Comment Spec In Lab La Jean-Baptiste MD HEMATOLOGY ORDERABLE S [facility] [place] [address] * (ABNORMAL) Hemogram (02/24/2020 2:05 AM EDT) White Blood Cell 8.0 4.0 - 9.5 x10(3)/mc L [facility] Red Blood Cell 2.97(L) 4.58 - 5.54 x10(6)/ L [facility] Hemoglobin 9.3(L) 13.7 - 16.5 gm/dL [facility] Hematocrit 29.0(L) 40.5 - 48.5 % [facility] Mean Cell Volume 97.6(H) 82.9 - 93.1 [facility] Mean Cell Hemoglobin 31.3 27.5 - 32.1 pg [facility] Mean Cell Hemoglobin Concentration 32.1 32.0 - 35.7 gm/dL [facility] Platelet 103(L) 145 - 357 x10(3)/[facility] RDW Standard Deviation 56.9(H) 36.0 - 45.0 [facility] RDW coefficient of variation 15.9(H) 11.4 - 13.8 % [facility] Mean Platelet Volume 11.8 7.6 - 12.9 [facility] NRBC% auto 0.0 % [facility] NRBC Absolute 0.000 0.000 - 0.000 x10(3)/ L [facility] Blood specimen (specimen) 02/24/2020 2:05 AM EDT 02/24/2020 2:30 AM EDT Narrative Resulting Agency Comment Spec In Lab La Jean-Baptiste MD HEMATOLOGY ORDERABLE S [facility] [place] [address] * (ABNORMAL) Basic Metabolic Panel (non-fasting) (02/24/2020 2:05 AM EDT) Glucose 121 65 - 199 mg/dL [facility] Comment:Diabetes: >=200 mg/d L plus symptoms Blood Urea Nitrogen 34(H) 10 - 20 mg/dL [facility] Creatinine 0.71(L) 0.80 - 1.50 mg/dL [facility] Sodium 133(L) 135 - 145 mmol/L [facility] Potassium 4.7 3.5 - 5.0 mmol/L [facility] Comment: Please note: ??Patients with WBC >100,000 may have falsely elevated Potassium levels. ??For accurate Potassium quantification in these patients send serum separator tube (gold top) for subsequent determinations. ??Contact the Clinical Chemistry Laboratory if there are any questions. Chloride 104 98 - 107 mmol/L [facility] Carbon Dioxide 21(L) 22 - 31 mmol/L [facility] Anion Gap 8 5 - 15 mmol/L [facility] Calcium 7.7(L) 8.5 - 10.5 mg/dL [facility] Est Glomerular Filtration Rate 97 >=60 mL/min/1. 73 m?? [facility] Comment: The eGFR was calculated using the CKD-EPI equation. As with all creatinine based estimates of kidney function, eGFR values calculated with the CKD-EPI equation are not accurate in patients with acute kidney failure, extremes of body mass or the acutely ill. [email or web address] eGFR 113 >=60 mL/min/1. 73 m?? [facility] Comment: The eGFR was calculated using the CKD-EPI equation. As with all creatinine based estimates of kidney function, eGFR values calculated with the CKD-EPI equation are not accurate in patients with acute kidney failure, extremes of body mass or the acutely ill. [email or web address] Blood specimen (specimen) 02/24/2020 2:05 AM EDT 02/24/2020 2:30 AM EDT Narrative Resulting Agency Comment Spec In Lab Nima Armstrong MD CHEMISTRY ORDERABLES Performing Organization Address City/[facility] Co de Phone Number [facility] [place] [address] * Phosphorus (02/24/2020 2:05 AM EDT) Phosphorus 4.5 2.5 - 4.5 mg/dL [facility] Blood specimen (specimen) 02/24/2020 2:05 AM EDT 02/24/2020 2:30 AM EDT Narrative Resulting Agency Comment Spec In Lab Nima Armstrong MD CHEMISTRY ORDERABLES Performing Organization Address [facility] Co de Phone Number [facility] [place] [address] * Magnesium (02/24/2020 2:05 AM EDT) Magnesium 1.00 0.69 - 1.07 mmol/L [facility] Blood specimen (specimen) 02/24/2020 2:05 AM EDT 02/24/2020 2:30 AM EDT Narrative Resulting Agency Comment Spec In Lab Nima Armstrong MD CHEMISTRY ORDERABLES Performing Organization Address [facility] Co de Phone Number [facility] [place] [address] * (ABNORMAL) Basic Metabolic Panel (non-fasting) (02/23/2020 1:55 AM EDT) Glucose 123 65 - 199 mg/dL [facility] Comment:Diabetes: >=200 mg/d L plus symptoms Blood Urea Nitrogen 33(H) 10 - 20 mg/dL [facility] Creatinine 0.75(L) 0.80 - 1.50 mg/dL [facility] Sodium 136 135 - 145 mmol/L [facility] Potassium 4.8 3.5 - 5.0 mmol/L [facility] Comment: Please note: ??Patients with WBC >100,000 may have falsely elevated Potassium levels. ??For accurate Potassium quantification in these patients send serum separator tube (gold top) for subsequent determinations. ??Contact the Clinical Chemistry Laboratory if there are any questions. Chloride 103 98 - 107 mmol/L [facility] Carbon Dioxide 21(L) 22 - 31 mmol/L [facility] Anion Gap 12 5 - 15 mmol/L [facility] Calcium 7.5(L) 8.5 - 10.5 mg/dL [facility] Est Glomerular Filtration Rate 95 >=60 mL/min/1. 73 m?? [facility] Comment: The eGFR was calculated using the CKD-EPI equation. As with all creatinine based estimates of kidney function, eGFR values calculated with the CKD-EPI equation are not accurate in patients with acute kidney failure, extremes of body mass or the acutely ill. [email or web address] eGFR 110 >=60 mL/min/1. 73 m?? [facility] Comment: The eGFR was calculated using the CKD-EPI equation. As with all creatinine based estimates of kidney function, eGFR values calculated with the CKD-EPI equation are not accurate in patients with acute kidney failure, extremes of body mass or the acutely ill. [email or web address] Blood specimen (specimen) 02/23/2020 1:55 AM EDT 02/23/2020 2:33 AM EDT Narrative Resulting Agency Comment Spec In Lab Nima Armstrong MD CHEMISTRY ORDERABLES [facility] [place] [address] * Phosphorus (02/23/2020 1:55 AM EDT) Phosphorus 3.8 2.5 - 4.5 mg/dL [facility] Blood specimen (specimen) 02/23/2020 1:55 AM EDT 02/23/2020 2:30 AM EDT Narrative Resulting Agency Comment Spec In Lab Nima Armstrong MD CHEMISTRY ORDERABLES Performing Organization Address [facility] de Phone Number [facility] [place] [address] * Magnesium (02/23/2020 1:55 AM EDT) [facility] Magnesium 1.04 0.69 - 1.07 mmol/L [facility] Blood specimen (specimen) 02/23/2020 1:55 AM EDT 02/23/2020 2:30 AM EDT Narrative Resulting Agency Comment Spec In Lab Nima Armstrong MD CHEMISTRY ORDERABLES Performing Organization Address [facility] de Phone Number [facility] [place] [address] * Scan, Peripheral Blood (02/22/2020 2:30 AM EDT) [facility] Plat estimate Decreased [facility] RBC Morphology Normal [facility] Macrocyte 1-5 /HPF [facility] Ovalocytes 1-5 /HPF [facility] Atypical Lymph Many [facility] Toxic Granulation Present [facility] Vacuolated Neut Present [facility] Plat, Giant Less than 1 /HPF [facility] Blood specimen (specimen) 02/22/2020 2:30 AM EDT 02/22/2020 2:44 AM EDT Narrative Resulting Agency Comment Spec In Lab Enrrique Patten MD HEMATOLOGY ORDERABLE S Performing Organization Address [facility] Co de Phone Number [facility] [place] [address] * (ABNORMAL) Differential, Automated (02/22/2020 2:30 AM EDT) Neutrophil % 75.8 % [facility] Neutrophil Absolute 7.24(H) 1.70 - 6.10 x10(3)/[facility] Lymph % 13.2 % [facility] Lymphocytes Abs 1.3 0.9 - 3.2 x10(3)/[facility] Monocyte % 9.4 % [facility] Monocyte Abs 0.9 0.3 - 0.9 x10(3)/[facility] Eos % 0.9 % [facility] Eosinophils Abs 0.1 0.0 - 0.4 x10(3)/[facility] Basophil % 0.3 % [facility] Baso Absolute 0.0 0.0 - 0.1 x10(3)/[facility] Immature Gran % 0.40 % [facility] Comment: Immature granulocytes(IG's)percentage and absolute count will include metamyelocytes, myelocytes, and promyelocytes. Blood smears from CBCs yielding IG's will be scanned manually for concordance. If this scan disagrees with the automated IG or if promyelocytes are noted, a manual differential will be performed. Immature Gran Absolute 0.04 0.00 - 0.04 x10(3)/[facility] Blood specimen (specimen) 02/22/2020 2:30 AM EDT 02/22/2020 2:44 AM EDT Narrative Resulting Agency Comment Spec In Lab Enrrique Patten MD HEMATOLOGY ORDERABLE S [facility] [place] [address] * (ABNORMAL) Hemogram (02/22/2020 2:30 AM EDT) Pathologist [facility] White Blood Cell 9.6(H) 4.0 - 9.5 x10(3)/mc L [facility] Red Blood Cell 3.07(L) 4.58 - 5.54 x10(6)/mc L [facility] Hemoglobin 9.7(L) 13.7 - 16.5 gm/dL [facility] Hematocrit 28.5(L) 40.5 - 48.5 % [facility] Mean Cell Volume 92.8 82.9 - 93.1 fL [facility] Mean Cell Hemoglobin 31.6 27.5 - 32.1 pg [facility] Mean Cell Hemoglobin Concentration 34.0 32.0 - 35.7 gm/dL [facility] Platelet 97(L) 145 - 357 x10(3)/mc L [facility] RDW Standard Deviation 54.2(H) 36.0 - 45.0 fL [facility] RDW coefficient of variation 16.1(H) 11.4 - 13.8 % [facility] Mean Platelet Volume 12.1 7.6 - 12.9 [facility] NRBC% auto 0.0 % [facility] NRBC Absolute 0.000 0.000 - 0.000 x10(3)/ L [facility] Blood specimen (specimen) 02/22/2020 2:30 AM EDT 02/22/2020 2:44 AM EDT Narrative Resulting Agency Comment Spec In Lab Enrrique Patten MD HEMATOLOGY ORDERABLE S [facility] [place] [address] * (ABNORMAL) Basic Metabolic Panel (non-fasting) (02/22/2020 2:30 AM EDT) Glucose 126 65 - 199 mg/dL [facility] [facility] Comment:Diabetes: >=200 mg/d L plus symptoms Blood Urea Nitrogen 26(H) 10 - 20 mg/dL [facility] Creatinine 0.73(L) 0.80 - 1.50 mg/dL [facility] Sodium 136 135 - 145 mmol/L [facility] Potassium 4.1 3.5 - 5.0 mmol/L [facility] Comment: Please note: ??Patients with WBC >100,000 may have falsely elevated Potassium levels. ??For accurate Potassium quantification in these patients send serum separator tube (gold top) for subsequent determinations. ??Contact the Clinical Chemistry Laboratory if there are any questions. Chloride 103 98 - 107 mmol/L [facility] Carbon Dioxide 25 22 - 31 mmol/L [facility] Anion Gap 8 5 - 15 mmol/L [facility] Calcium 7.4(L) 8.5 - 10.5 mg/dL [facility] Est Glomerular Filtration Rate 96 >=60 mL/min/1. 73 m?? [facility] Comment: The eGFR was calculated using the CKD-EPI equation. As with all creatinine based estimates of kidney function, eGFR values calculated with the CKD-EPI equation are not accurate in patients with acute kidney failure, extremes of body mass or the acutely ill. [email or web address] eGFR 111 >=60 mL/min/1. 73 m?? [facility] Comment: The eGFR was calculated using the CKD-EPI equation. As with all creatinine based estimates of kidney function, eGFR values calculated with the CKD-EPI equation are not accurate in patients with acute kidney failure, extremes of body mass or the acutely ill. [email or web address] Blood specimen (specimen) 02/22/2020 2:30 AM EDT 02/22/2020 2:44 AM EDT Narrative Resulting Agency Comment Spec In Lab Nima Armstrong MD CHEMISTRY ORDERABLES [facility] [place] [address] * Potassium (02/21/2020 8:36 PM EDT) Potassium 4.1 3.5 - 5.0 mmol/L [facility] Comment: result rechecked-imm Please note: ??Patients [...] Armstrong MD CHEMISTRY ORDERABLES Performing Organization Address City/[facility]/ZIP Co de Phone Number [facility] [place] [address] * Phosphorus (02/21/2020 1:55 AM EDT) Phosphorus 3.3 2.5 - 4.5 mg/dL [facility] Blood specimen (specimen) 02/21/2020 1:55 AM EDT 02/21/2020 2:00 AM EDT Narrative Resulting Agency Comment Spec In Lab Nima Armstrong MD CHEMISTRY ORDERABLES Performing Organization Address [facility] Co de Phone Number [facility] [place] [address] * Magnesium (02/21/2020 1:55 AM EDT) Magnesium 0.90 0.69 - 1.07 mmol/L [facility] Blood specimen (specimen) 02/21/2020 1:55 AM EDT 02/21/2020 2:00 AM EDT Narrative Resulting Agency Comment Spec In Lab Nima Armstrong MD CHEMISTRY ORDERABLES Performing Organization Address [facility] Co de Phone Number [facility] [place] [address] * (ABNORMAL) Basic Metabolic Panel (non-fasting) (02/21/2020 1:55 AM EDT) Glucose 130 65 - 199 mg/dL [facility] Comment:Diabetes: >=200 mg/d L plus symptoms Blood Urea Nitrogen 22(H) 10 - 20 mg/dL [facility] Creatinine 0.69(L) 0.80 - 1.50 mg/dL [facility] Sodium 135 135 - 145 mmol/L [facility] Potassium 3.0(Criti heath) 3.5 - 5.0 mmol/L [facility] Comment: Called by: manny, Read back by: donte bearden, Date/Time:02/21/20 02:33. Please note: ??Patients with WBC >100,000 may have falsely elevated Potassium levels. ??For accurate Potassium quantification in these patients send serum separator tube (gold top) for subsequent determinations. ??Contact the Clinical Chemistry Laboratory if there are any questions. Chloride 101 98 - 107 mmol/L [facility] Carbon Dioxide 24 22 - 31 mmol/L [facility] Anion Gap 10 5 - 15 mmol/L [facility] Calcium 7.2(L) 8.5 - 10.5 mg/dL [facility] Est Glomerular Filtration Rate 98 >=60 mL/min/1. 73 m?? [facility] Comment: The eGFR was calculated using the CKD-EPI equation. As with all creatinine based estimates of kidney function, eGFR values calculated with the CKD-EPI equation are not accurate in patients with acute kidney failure, extremes of body mass or the acutely ill. [email or web address]://[email or web address]nkf eGFR 114 >=60 mL/min/1. 73 m?? [facility] Comment: The eGFR was calculated using the CKD-EPI equation. As with all creatinine based estimates of kidney function, eGFR values calculated with the CKD-EPI equation are not accurate in patients with acute kidney failure, extremes of body mass or the acutely ill. [email or web address] Blood specimen (specimen) 02/21/2020 1:55 AM EDT 02/21/2020 2:00 AM EDT Narrative Resulting Agency Comment Spec In Lab Nima Armstrong MD CHEMISTRY ORDERABLES Performing Organization Address City/[facility]/ZIP Co de Phone Number [facility] [place] [address] * (ABNORMAL) Differential, Automated (02/20/2020 2:04 AM EDT) Neutrophil % 72.4 % [facility] Neutrophil Absolute 6.80(H) 1.70 - 6.10 x10(3)/mc L [facility] Lymph % 13.2 % [facility] Lymphocytes Abs 1.2 0.9 - 3.2 x10(3)/[facility] Monocyte % 11.1 % [facility] Monocyte Abs 1.0(H) 0.3 - 0.9 x10(3)/[facility] Eos % 2.3 % [facility] Eosinophils Abs 0.2 0.0 - 0.4 x10(3)/[facility] Basophil % 0.3 % [facility] Baso Absolute 0.0 0.0 - 0.1 x10(3)/[facility] Immature Gran % 0.70 % [facility] Comment: Immature granulocytes(IG's)percentage and absolute count will include metamyelocytes, myelocytes, and promyelocytes. Blood smears from CBCs yielding IG's will be scanned manually for concordance. If this scan disagrees with the automated IG or if promyelocytes are noted, a manual differential will be performed. Immature Gran Absolute 0.07(H) 0.00 - 0.04 x10(3)/ L [facility] Blood specimen (specimen) 02/20/2020 2:04 AM EDT 02/20/2020 2:10 AM EDT Narrative Resulting Agency Comment Spec In Lab Enrrique Patten MD HEMATOLOGY ORDERABLE S Performing Organization Address City/[facility]/ZIP Co de Phone Number [facility] [place] [address] * (ABNORMAL) Hemogram (02/20/2020 2:04 AM EDT) White Blood Cell 9.4 4.0 - 9.5 x10(3)/mc L [facility] Red Blood Cell 2.92(L) 4.58 - 5.54 x10(6)/ L [facility] Hemoglobin 9.2(L) 13.7 - 16.5 gm/dL [facility] Hematocrit 28.0(L) 40.5 - 48.5 % [facility] Mean Cell Volume 95.9(H) 82.9 - 93.1 fL [facility] Mean Cell Hemoglobin 31.5 27.5 - 32.1 pg [facility] Mean Cell Hemoglobin Concentration 32.9 32.0 - 35.7 gm/dL [facility] Platelet 93(L) 145 - 357 x10(3)/ L [facility] RDW Standard Deviation 57.1(H) 36.0 - 45.0 fL [facility] RDW coefficient of variation 16.2(H) 11.4 - 13.8 % [facility] Mean Platelet Volume 11.8 7.6 - 12.9 fL [facility] NRBC% auto 0.0 % [facility] NRBC Absolute 0.000 0.000 - 0.000 x10(3)/[facility] Blood specimen (specimen) 02/20/2020 2:04 AM EDT 02/20/2020 2:10 AM EDT Narrative Resulting Agency Comment Spec In Lab Enrrique Patten MD HEMATOLOGY ORDERABLE S [facility] [place] [address] * (ABNORMAL) Basic Metabolic Panel (non-fasting) (02/20/2020 2:04 AM EDT) Glucose 124 65 - 199 mg/dL [facility] Comment:Diabetes: >=200 mg/d L plus symptoms Blood Urea Nitrogen 15 10 - 20 mg/dL [facility] Creatinine 0.81 0.80 - 1.50 mg/dL [facility] Sodium 137 135 - 145 mmol/L [facility] Potassium 3.2(L) 3.5 - 5.0 mmol/L [facility] Comment: Please note: ??Patients with WBC >100,000 may have falsely elevated Potassium levels. ??For accurate Potassium quantification in these patients send serum separator tube (gold top) for subsequent determinations. ??Contact the Clinical Chemistry Laboratory if there are any questions. Chloride 107 98 - 107 mmol/L [facility] Carbon Dioxide 22 22 - 31 mmol/L [facility] Anion Gap 8 5 - 15 mmol/L [facility] Calcium 7.1(L) 8.5 - 10.5 mg/dL [facility] Est Glomerular Filtration Rate 92 >=60 mL/min/1. 73 m?? [facility] Comment: The eGFR was calculated using the CKD-EPI equation. As with all creatinine based estimates of kidney function, eGFR values calculated with the CKD-EPI equation are not accurate in patients with acute kidney failure, extremes of body mass or the acutely ill. [email or web address]nk[facility] eGFR 107 >=60 mL/min/1. 73 m?? [facility] Comment: The eGFR was calculated using the CKD-EPI equation. As with all creatinine based estimates of kidney function, eGFR values calculated with the CKD-EPI equation are not accurate in patients with acute kidney failure, extremes of body mass or the acutely ill. [email or web address] Blood specimen (specimen) 02/20/2020 2:04 AM EDT 02/20/2020 2:10 AM EDT Narrative Resulting Agency Comment Spec In Lab Nima Armstrong MD CHEMISTRY ORDERABLES Performing Organization Address City/State/[facility] Co de Phone Number [facility] [place] [address] * (ABNORMAL) Hepatic Function Panel (02/20/2020 2:04 AM EDT) [facility] Protein, Total 3.8(L) 6.1 - 8.0 gm/dL [facility] Albumin 2.2(L) 3.2 - 5.2 gm/dL [facility] Aspartate Aminotransferase 32 0 - 39 unit/L [facility] Alanine Aminotransferase 39 0 - 55 unit/L [facility] Alkaline Phosphatase 100 40 - 130 unit/L [facility] Bilirubin, Total 0.2 0.2 - 1.3 mg/dL [facility] Bilirubin, Direct 0.1 0.0 - 0.3 mg/dL [facility] Blood specimen (specimen) 02/20/2020 2:04 AM EDT 02/20/2020 2:10 AM EDT Narrative Resulting Agency Comment Spec In Lab Nima Armstrong MD CHEMISTRY ORDERABLES Performing Organization Address [facility] Co de Phone Number [facility] [place] [address] * Phosphorus (02/20/2020 2:04 AM EDT) [facility] Phosphorus 2.8 2.5 - 4.5 mg/dL [facility] Blood specimen (specimen) 02/20/2020 2:04 AM EDT 02/20/2020 2:10 AM EDT Narrative Resulting Agency Comment Spec In Lab Nima Armstrong MD CHEMISTRY ORDERABLES Performing Organization Address [facility] Co de Phone Number [facility] [place] [address] * Magnesium (02/20/2020 2:04 AM EDT) [facility] Magnesium 0.77 0.69 - 1.07 mmol/L [facility] Blood specimen (specimen) 02/20/2020 2:04 AM EDT 02/20/2020 2:10 AM EDT Narrative Resulting Agency Comment Spec In Lab Nima Armstrong MD CHEMISTRY ORDERABLES Performing Organization Address [facility] Co de Phone Number [facility] [place] [address] * Shiga Toxin Detection (02/19/2020 3:14 PM EDT) Shiga Toxin Assay Test not performed due to no enteric growth. [facility] Stool specimen (specimen) 02/19/2020 3:14 PM EDT 02/19/2020 4:05 PM EDT Comment:NO PRECAUTIONS NEEDE D PER GI. Narrative Resulting Agency Comment Spec In Lab Roselia WHITFIELD MICROBIOLOGY - GENER AL ORDERABLES Performing Organization Address [facility] Co de Phone Number [facility] [place] [address] * (ABNORMAL) Campylobacter Antigen (02/19/2020 3:14 PM EDT) Campylobacter Ag Immunoassay Positive for Campylobacter Antigen(A) [facility] Stool specimen (specimen) 02/19/2020 3:14 PM EDT 02/19/2020 4:05 PM EDT Comment:NO PRECAUTIONS NEEDE D PER GI. Narrative Resulting Agency Comment Spec In Lab Roselia WHITFIELD MICROBIOLOGY - GENER AL ORDERABLES Performing Organization Address [facility] Co de Phone Number [facility] [place] [address] * Stool culture (02/19/2020 3:14 PM EDT) Pathologist [facility] Stool Culture No enteric pathogens isolated Reduced normal enteric sheri isolated [facility] Stool specimen (specimen) 02/19/2020 3:14 PM EDT 02/19/2020 4:04 PM EDT Comment:NO PRECAUTIONS NEEDE D PER GI. Narrative Resulting Agency Comment Spec In Lab Roselia WHITFIELD MICROBIOLOGY - GENER AL ORDERABLES Performing Organization Address City/[facility]/ZIP Co de Phone Number [facility] [place] [address] * (ABNORMAL) Platelet count (02/19/2020 2:30 PM EDT) Platelet 102(L) 145 - 357 x10(3)/mc L [facility] Immature Plt % 8.9(H) 0.0 - 7.4 % [facility] Comment: Limitation of the Immature Platelet Fraction (IPF)-May be less reliable when the platelet count is less than 11t868/uL due to statistical imprecision. The IPF value [...] in a decreased state of production. References: [employer] The Clinical Value of the Immature Platelet Fraction (IPF) in Cell Recovery Document Number 10-1143 12/2010 [employer] The Role of the Immature Platelet Fraction (IPF) in the Differential Diagnosis of Thrombocytopenia, Document [id number] Blood specimen (specimen) 02/19/2020 2:30 PM EDT 02/19/2020 2:46 PM EDT Narrative Resulting Agency Comment Spec In Lab Nima Armstrong MD HEMATOLOGY ORDERABLE S Performing Organization Address City/[facility]/ZIP Co de Phone Number [facility] [place] [address] * APTT (02/19/2020 2:30 PM EDT) Partial Thromboplastin Time 28 25 - 37 sec [facility] Comment: The PTT is NOT appropriate for heparin monitoring. Use the Anti-Xa level for heparin monitoring (HEP UFH) or LMWH monitoring (HEP LMW). A PTT less than 37 seconds generally indicates adequate hemostasis. Blood specimen (specimen) 02/19/2020 2:30 PM EDT 02/19/2020 2:46 PM EDT Narrative Resulting Agency Comment Spec In Lab Nima Armstrong MD HEMATOLOGY ORDERABLE S Performing Organization Address [facility] de Phone Number [facility] [place] [address] * (ABNORMAL) Prothrombin Time (02/19/2020 2:30 PM EDT) Prothrombin Time 13.1(H) 9.4 - 12.5 sec [facility] International Normalization Ratio 1.1 [facility] Comment: An INR <2.0 indicates adequate [...] MD HEMATOLOGY ORDERABLE S Performing Organization Address [facility] Co de Phone Number [facility] [place] [address] * Transfuse 1 unit platelets, apheresis (02/19/2020 [...] Armstrong MD BLOOD BANK PRODUCT O RDERABLES [facility] [place] [address] * (ABNORMAL) Differential, Automated (02/19/2020 8:00 AM EDT) Neutrophil % 73.6 % [facility] Neutrophil Absolute 7.33(H) 1.70 - 6.10 x10(3)/ L [facility] Lymph % 11.0 % [facility] Lymphocytes Abs 1.1 0.9 - 3.2 x10(3)/ L [facility] Monocyte % 12.0 % [facility] Monocyte Abs 1.2(H) 0.3 - 0.9 x10(3)/ L [facility] Eos % 2.4 % [facility] Eosinophils Abs 0.2 0.0 - 0.4 x10(3)/ L [facility] Basophil % 0.4 % [facility] Baso Absolute 0.0 0.0 - 0.1 x10(3)/ L [facility] Immature Gran % 0.60 % [facility] Comment: Immature granulocytes(IG's)percentage and absolute count will include metamyelocytes, myelocytes, and promyelocytes. Blood smears from CBCs yielding IG's will be scanned manually for concordance. If this scan disagrees with the automated IG or if promyelocytes are noted, a manual differential will be performed. Immature Gran Absolute 0.06(H) 0.00 - 0.04 x10(3)/ L [facility] Blood specimen (specimen) 02/19/2020 8:00 AM EDT 02/19/2020 8:29 AM EDT Narrative Resulting Agency Comment Spec In Lab Dariela Fitch MD HEMATOLOGY ORDERABLE S [facility] [place] [address] * (ABNORMAL) Hemogram (02/19/2020 8:00 AM EDT) White Blood Cell 10.0(H) 4.0 - 9.5 x10(3)/mc L [facility] Red Blood Cell 3.07(L) 4.58 - 5.54 x10(6)/mc L [facility] Hemoglobin 9.7(L) 13.7 - 16.5 gm/dL [facility] Hematocrit 28.8(L) 40.5 - 48.5 % [facility] Mean Cell Volume 93.8(H) 82.9 - 93.1 fL [facility] Mean Cell Hemoglobin 31.6 27.5 - 32.1 pg [facility] Mean Cell Hemoglobin Concentration 33.7 32.0 - 35.7 gm/dL [facility] Platelet 64(L) 145 - 357 x10(3)/mc L [facility] RDW Standard Deviation 55.1(H) 36.0 - 45.0 fL [facility] RDW coefficient of variation 16.3(H) 11.4 - 13.8 % [facility] Mean Platelet Volume 12.0 7.6 - 12.9 fL [facility] NRBC% auto 0.0 % [facility] NRBC Absolute 0.000 0.000 - 0.000 x10(3)/mc L [facility] Blood specimen (specimen) 02/19/2020 8:00 AM EDT 02/19/2020 8:29 AM EDT Narrative Resulting Agency Comment Spec In Lab Dariela Fitch MD HEMATOLOGY ORDERABLE S Performing Organization Address [facility]/ZIP Co de Phone Number [facility] [place] [address] * Lactate, whole blood, send to lab ([facility]) (02/18/2020 6:30 PM EDT) Lactate WB 1.0 0.5 - 2.2 mmol/L [facility] Blood specimen (specimen) 02/18/2020 6:30 PM EDT 02/18/2020 6:36 PM EDT Narrative Resulting Agency Comment Spec In Lab Nima Armstrong MD CHEMISTRY ORDERABLES Performing Organization Address [facility] Co de Phone Number [facility] [place] [address] * (ABNORMAL) Cryptosporidium Oocyst Antigen ([facility]/CGP/APD) (02/18/2020 10:59 AM EDT) Cryptosporidium Antigen Positive( A) Negative [facility] Stool specimen (specimen) 02/18/2020 10:59 AM EDT 02/18/2020 12:59 PM EDT Narrative Resulting Agency Comment Spec In Lab Soniya Paulson MD MICROBIOLOGY - GENER AL ORDERABLES Performing Organization Address [facility] Co de Phone Number [facility] [place] [address] * Giardia antigen ([facility]/CGP/APD) (02/18/2020 10:59 AM EDT) Giardia Antigen Negative Negative [facility] Comment:Examination for othe r intestinal parasites requires foreign travel history. Stool specimen (specimen) 02/18/2020 10:59 AM EDT 02/18/2020 12:59 PM EDT Narrative Resulting Agency Comment Spec In Lab Soniya Paulson MD MICROBIOLOGY - GENER AL ORDERABLES Performing Organization Address City/[facility]/ZIP Co de Phone Number [facility] [place] [address] * Creatinine Level Body Fluid DARYN Drain (02/18/2020 10:59 AM EDT) Creatinine, Fluid 0.8 mg/dL [facility] Comment: No reference range is available for the specimen type submitted. ??The performance of this assay for the submitted type has not been validated and results should be interpreted accordingly and with regard to the patient's clinical status. Creat, Fld Type DARYN Drain [facility] DARYN Drain 02/18/2020 10:5 9 AM EDT 02/18/2020 11:36 AM EDT Narrative Resulting Agency Comment Spec In Lab Nima Armstrong MD BODY FLUIDS AND STOO LS ORDERABLES Performing Organization Address [facility] Co de Phone Number [facility] [place] [address] * (ABNORMAL) Basic Metabolic Panel (non-fasting) (02/18/2020 9:33 AM EDT) Glucose 113 65 - 199 mg/dL [facility] Comment:Diabetes: >=200 mg/d L plus symptoms Blood Urea Nitrogen 10 10 - 20 mg/dL [facility] Creatinine 0.82 0.80 - 1.50 mg/dL [facility] Sodium 139 135 - 145 mmol/L [facility] Potassium 3.6 3.5 - 5.0 mmol/L [facility] Comment: Please note: ??Patients with WBC >100,000 may have falsely elevated Potassium levels. ??For accurate Potassium quantification in these patients send serum separator tube (gold top) for subsequent determinations. ??Contact the Clinical Chemistry Laboratory if there are any questions. Chloride 109(H) 98 - 107 mmol/L [facility] Carbon Dioxide 23 22 - 31 mmol/L [facility] Anion Gap 7 5 - 15 mmol/L [facility] Calcium 7.4(L) 8.5 - 10.5 mg/dL [facility] Est Glomerular Filtration Rate 92 >=60 mL/min/1. 73 m?? [facility] Comment: The eGFR was calculated using the CKD-EPI equation. As with all creatinine based estimates of kidney function, eGFR values calculated with the CKD-EPI equation are not accurate in patients with acute kidney failure, extremes of body mass or the acutely ill. [email or web address] eGFR 106 >=60 mL/min/1. 73 m?? [facility] Comment: The eGFR was calculated using the CKD-EPI equation. As with all creatinine based estimates of kidney function, eGFR values calculated with the CKD-EPI equation are not accurate in patients with acute kidney failure, extremes of body mass or the acutely ill. [email or web address] Blood specimen (specimen) 02/18/2020 9:33 AM EDT 02/18/2020 9:39 AM EDT Narrative Resulting Agency Comment Spec In Lab Nima Armstrong MD CHEMISTRY ORDERABLES [facility] [place] [address] * (ABNORMAL) Differential, Automated (02/18/2020 8:05 AM EDT) Neutrophil % 68.1 % [facility] Neutrophil Absolute 5.21 1.70 - 6.10 x10(3)/mc L [facility] Lymph % 14.8 % [facility] Lymphocytes Abs 1.1 0.9 - 3.2 x10(3)/mc L [facility] Monocyte % 13.3 % [facility] Monocyte Abs 1.0(H) 0.3 - 0.9 x10(3)/mc L [facility] Eos % 2.9 % [facility] Eosinophils Abs 0.2 0.0 - 0.4 x10(3)/mc L [facility] Basophil % 0.4 % [facility] Baso Absolute 0.0 0.0 - 0.1 x10(3)/ L [facility] Immature Gran % 0.50 % [facility] Comment: Immature granulocytes(IG's)percentage and absolute count will include metamyelocytes, myelocytes, and promyelocytes. Blood smears from CBCs yielding IG's will be scanned manually for concordance. If this scan disagrees with the automated IG or if promyelocytes are noted, a manual differential will be performed. Immature Gran Absolute 0.04 0.00 - 0.04 x10(3)/[facility] LABORATORY Blood specimen (specimen) 02/18/2020 8:05 AM EDT 02/18/2020 8:33 AM EDT Narrative Resulting Agency Comment Spec In Lab Enrrique Patten MD HEMATOLOGY ORDERABLE S Performing Organization Address City/State/[facility] Co de Phone Number [facility] [place] [address] * (ABNORMAL) Hemogram (02/18/2020 8:05 AM EDT) White Blood Cell 7.6 4.0 - 9.5 x10(3)/[facility] LABORATORY Red Blood Cell 3.05(L) 4.58 - 5.54 x10(6)/ L [facility] Hemoglobin 9.6(L) 13.7 - 16.5 gm/dL [facility] Hematocrit 28.9(L) 40.5 - 48.5 % [facility] Mean Cell Volume 94.8(H) 82.9 - 93.1 fL [facility] Mean Cell Hemoglobin 31.5 27.5 - 32.1 pg [facility] Mean Cell Hemoglobin Concentration 33.2 32.0 - 35.7 gm/dL [facility] Platelet 78(L) 145 - 357 x10(3)/[facility] LABORATORY RDW Standard Deviation 57.1(H) 36.0 - 45.0 fL [facility] RDW coefficient of variation 16.3(H) 11.4 - 13.8 % [facility] Mean Platelet Volume 11.1 7.6 - 12.9 fL [facility] NRBC% auto 0.0 % [facility] NRBC Absolute 0.000 0.000 - 0.000 x10(3)/mc L [facility] Blood specimen (specimen) 02/18/2020 8:05 AM EDT 02/18/2020 8:33 AM EDT Narrative Resulting Agency Comment Spec In Lab Enrrique Patten MD HEMATOLOGY ORDERABLE S [facility] [place] [address] * (ABNORMAL) Differential, Automated (02/17/2020 5:30 AM EDT) Neutrophil % 77.2 % [facility]ORY Neutrophil Absolute 6.63(H) 1.70 - 6.10 x10(3)/mc L [facility] Lymph % 9.4 % [facility] LAB[facility]ORY Lymphocytes Abs 0.8(L) 0.9 - 3.2 x10(3)/mc L [facility] Monocyte % 12.3 % [facility] Monocyte Abs 1.1(H) 0.3 - 0.9 x10(3)/mc L [facility] Eos % 0.2 % [facility] Eosinophils Abs 0.0 0.0 - 0.4 x10(3)/mc L [facility] Basophil % 0.3 % [facility] Baso Absolute 0.0 0.0 - 0.1 x10(3)/mc L [facility] Immature Gran % 0.60 % [facility] Comment: Immature granulocytes(IG's)percentage and absolute count will include metamyelocytes, myelocytes, and promyelocytes. Blood smears from CBCs yielding IG's will be scanned manually for concordance. If this scan disagrees with the automated IG or if promyelocytes are noted, a manual differential will be performed. Immature Gran Absolute 0.05(H) 0.00 - 0.04 x10(3)/mc L [facility] Blood specimen (specimen) 02/17/2020 5:30 AM EDT 02/17/2020 5:58 AM EDT Narrative Resulting Agency Comment Spec In Lab La Jean-Baptiste MD HEMATOLOGY ORDERABLE S [facility] [place] [address] * (ABNORMAL) Hemogram (02/17/2020 5:30 AM EDT) White Blood Cell 8.6 4.0 - 9.5 x10(3)/mc L [facility] Red Blood Cell 3.09(L) 4.58 - 5.54 x10(6)/mc L [facility] Hemoglobin 9.6(L) 13.7 - 16.5 gm/dL [facility] Hematocrit 28.3(L) 40.5 - 48.5 % [facility] Mean Cell Volume 91.6 82.9 - 93.1 fL [facility] Mean Cell Hemoglobin 31.1 27.5 - 32.1 pg [facility] Mean Cell Hemoglobin Concentration 33.9 32.0 - 35.7 gm/dL [facility] Platelet 86(L) 145 - 357 x10(3)/mc L [facility] RDW Standard Deviation 54.6(H) 36.0 - 45.0 fL [facility] RDW coefficient of variation 16.4(H) 11.4 - 13.8 % [facility] Mean Platelet Volume 10.7 7.6 - 12.9 fL [facility] NRBC% auto 0.0 % [facility] NRBC Absolute 0.000 0.000 - 0.000 x10(3)/mc L [facility] Blood specimen (specimen) 02/17/2020 5:30 AM EDT 02/17/2020 5:58 AM EDT Narrative Resulting Agency Comment Spec In Lab La Jean-Baptiste MD HEMATOLOGY ORDERABLE S [facility] [place] [address] * (ABNORMAL) Basic Metabolic Panel (non-fasting) (02/17/2020 5:30 AM EDT) Glucose 115 65 - 199 mg/dL [facility] Comment:Diabetes: >=200 mg/d L plus symptoms Blood Urea Nitrogen 11 10 - 20 mg/dL [facility] Creatinine 0.78(L) 0.80 - 1.50 mg/dL [facility] Sodium 138 135 - 145 mmol/L [facility] Potassium 3.4(L) 3.5 - 5.0 mmol/L [facility] Comment: Please note: ??Patients with WBC >100,000 may have falsely elevated Potassium levels. ??For accurate Potassium quantification in these patients send serum separator tube (gold top) for subsequent determinations. ??Contact the Clinical Chemistry Laboratory if there are any questions. Chloride 109(H) 98 - 107 mmol/L [facility] Carbon Dioxide 22 22 - 31 mmol/L [facility] Anion Gap 7 5 - 15 mmol/L [facility] Calcium 6.8(Criti heath) 8.5 - 10.5 mg/dL [facility] Comment:Called by: laya, Read back by: Noah Gilbert, Date/Time:02/17/20 06:33. Est Glomerular Filtration Rate 93 >=60 mL/min/1. 73 m?? [facility] Comment: The eGFR was calculated using the CKD-EPI equation. As with all creatinine based estimates of kidney function, eGFR values calculated with the CKD-EPI equation are not accurate in patients with acute kidney failure, extremes of body mass or the acutely ill. [email or web address] eGFR 108 >=60 mL/min/1. 73 m?? [facility] Comment: The eGFR was calculated using the CKD-EPI equation. As with all creatinine based estimates of kidney function, eGFR values calculated with the CKD-EPI equation are not accurate in patients with acute kidney failure, extremes of body mass or the acutely ill. [email or web address] Blood specimen (specimen) 02/17/2020 5:30 AM EDT 02/17/2020 5:58 AM EDT Narrative Resulting Agency Comment Spec In Lab Nima Armstrong MD CHEMISTRY ORDERABLES Performing Organization Address [facility] de Phone Number [facility] [place] [address] * C. Difficile Screen (02/16/2020 10:00 PM EDT) C Diff Interp Negative Negative [facility] Comment: Ag/Tox Neg C. diff?? Negative Clostridium difficile is not present in the specimen. If patient is having diarrhea suspected to be from an infectious cause, then Soap & Water Contact Precautions are still required. Stool specimen (specimen) 02/16/2020 10:00 PM EDT 02/16/2020 10:46 PM EDT Narrative Resulting Agency Comment Spec In Lab Nima Armstrong MD MICROBIOLOGY - GENER AL ORDERABLES Performing Organization Address [facility] Co de Phone Number [facility] [place] [address] * (ABNORMAL) Differential, Automated (02/16/2020 8:15 AM EDT) Neutrophil % 84.2 % [facility] Neutrophil Absolute 9.93(H) 1.70 - 6.10 x10(3)/mc L [facility] Lymph % 8.7 % [facility] Lymphocytes Abs 1.0 0.9 - 3.2 x10(3)/mc L [facility] Monocyte % 6.1 % [facility] Monocyte Abs 0.7 0.3 - 0.9 x10(3)/[facility] LABORATORY Eos % 0.0 % [facility] Eosinophils Abs 0.0 0.0 - 0.4 x10(3)/[facility] LABORATORY Basophil % 0.2 % [facility] Baso Absolute 0.0 0.0 - 0.1 x10(3)/[facility] LABORATORY Immature Gran % 0.80 % [facility] Comment: Immature granulocytes(IG's)percentage and absolute count will include metamyelocytes, myelocytes, and promyelocytes. Blood smears from CBCs yielding IG's will be scanned manually for concordance. If this scan disagrees with the automated IG or if promyelocytes are noted, a manual differential will be performed. Immature Gran Absolute 0.09(H) 0.00 - 0.04 x10(3)/[facility] LABORATORY Blood specimen (specimen) 02/16/2020 8:15 AM EDT 02/16/2020 8:30 AM EDT Narrative Resulting Agency Comment Spec In Lab La Jean-Baptiste MD HEMATOLOGY ORDERABLE S [facility] [place] [address] * (ABNORMAL) Hemogram (02/16/2020 8:15 AM EDT) White Blood Cell 11.8(H) 4.0 - 9.5 x10(3)/[facility] LABORATORY Red Blood Cell 3.39(L) 4.58 - 5.54 x10(6)/[facility] LABORATORY Hemoglobin 10.5(L) 13.7 - 16.5 gm/dL [facility] Hematocrit 30.6(L) 40.5 - 48.5 % [facility] Mean Cell Volume 90.3 82.9 - 93.1 fL [facility] Mean Cell Hemoglobin 31.0 27.5 - 32.1 pg [facility] Mean Cell Hemoglobin Concentration 34.3 32.0 - 35.7 gm/dL [facility] Platelet 95(L) 145 - 357 x10(3)/mc L [facility] RDW Standard Deviation 53.4(H) 36.0 - 45.0 fL [facility] RDW coefficient of variation 16.1(H) 11.4 - 13.8 % [facility] Mean Platelet Volume 12.0 7.6 - 12.9 fL [facility] NRBC% auto 0.0 % [facility] NRBC Absolute 0.000 0.000 - 0.000 x10(3)/mc L [facility] Blood specimen (specimen) 02/16/2020 8:15 AM EDT 02/16/2020 8:30 AM EDT Narrative Resulting Agency Comment Spec In Lab La Jean-Baptiste MD HEMATOLOGY ORDERABLE S [facility] [place] [address] * (ABNORMAL) Basic Metabolic Panel (non-fasting) (02/16/2020 8:15 AM EDT) Glucose 153 65 - 199 mg/dL [facility] Comment:Diabetes: >=200 mg/d L plus symptoms Blood Urea Nitrogen 13 10 - 20 mg/dL [facility] Creatinine 0.90 0.80 - 1.50 mg/dL [facility] Sodium 138 135 - 145 mmol/L [facility] Potassium 3.5 3.5 - 5.0 mmol/L [facility] Comment: Please note: ??Patients with WBC >100,000 may have falsely elevated Potassium levels. ??For accurate Potassium quantification in these patients send serum separator tube (gold top) for subsequent determinations. ??Contact the Clinical Chemistry Laboratory if there are any questions. Chloride 106 98 - 107 mmol/L [facility] Carbon Dioxide 22 22 - 31 mmol/L [facility] Anion Gap 10 5 - 15 mmol/L [facility] Calcium 7.1(L) 8.5 - 10.5 mg/dL [facility] Est Glomerular Filtration Rate 88 >=60 mL/min/1. 73 m?? [facility] Comment: The eGFR was calculated using the CKD-EPI equation. As with all creatinine based estimates of kidney function, eGFR values calculated with the CKD-EPI equation are not accurate in patients with acute kidney failure, extremes of body mass or the acutely ill. [email or web address] eGFR 102 >=60 mL/min/1. 73 m?? [facility] Comment: The eGFR was calculated using the CKD-EPI equation. As with all creatinine based estimates of kidney function, eGFR values calculated with the CKD-EPI equation are not accurate in patients with acute kidney failure, extremes of body mass or the acutely ill. [email or web address] Blood specimen (specimen) 02/16/2020 8:15 AM EDT 02/16/2020 8:30 AM EDT Narrative Resulting Agency Comment Spec In Lab Nima Armstrong MD CHEMISTRY ORDERABLES Performing Organization Address City/State/[facility] Co de Phone Number [facility] [place] [address] * (ABNORMAL) Hemogram (02/15/2020 6:05 PM EDT) White Blood Cell 9.1 4.0 - 9.5 x10(3)/mc L [facility] Red Blood Cell 3.28(L) 4.58 - 5.54 x10(6)/mc L [facility] Hemoglobin 10.3(L) 13.7 - 16.5 gm/dL [facility] Hematocrit 30.4(L) 40.5 - 48.5 % [facility] Mean Cell Volume 92.7 82.9 - 93.1 fL [facility] Mean Cell Hemoglobin 31.4 27.5 - 32.1 pg [facility] Mean Cell Hemoglobin Concentration 33.9 32.0 - 35.7 gm/dL [facility] Platelet 99(L) 145 - 357 x10(3)/mc L [facility] RDW Standard Deviation 53.1(H) 36.0 - 45.0 fL [facility] RDW coefficient of variation 15.6(H) 11.4 - 13.8 % [facility] Mean Platelet Volume 11.8 7.6 - 12.9 fL [facility] NRBC% auto 0.0 % [facility] NRBC Absolute 0.000 0.000 - 0.000 x10(3)/mc L [facility] Blood specimen (specimen) 02/15/2020 6:05 PM EDT 02/15/2020 6:21 PM EDT Narrative Resulting Agency Comment Spec In Lab Nima Armstrong MD HEMATOLOGY ORDERABLE S Performing Organization Address City/State/[facility] Co de Phone Number [facility] [place] [address] * Transfuse RBC (02/15/2020 4:23 PM EDT) Nima Armstrong MD NURSING TREATMENT OR DERABLES - BLOOD ADMIN * Transfuse RBC (02/15/2020 4:23 PM EDT) Nima Armstrong MD NURSING TREATMENT OR DERABLES - BLOOD ADMIN * (ABNORMAL) Hemogram (02/15/2020 12:30 PM EDT) White Blood Cell 7.8 4.0 - 9.5 x10(3)/mc L [facility] Red Blood Cell 2.63(L) 4.58 - 5.54 x10(6)/mc L [facility] Hemoglobin 8.3(L) 13.7 - 16.5 gm/dL [facility] Hematocrit 24.4(L) 40.5 - 48.5 % [facility] Mean Cell Volume 92.8 82.9 - 93.1 fL [facility] Mean Cell Hemoglobin 31.6 27.5 - 32.1 pg [facility] Mean Cell Hemoglobin Concentration 34.0 32.0 - 35.7 gm/dL [facility] Platelet 99(L) 145 - 357 x10(3)/mc L [facility] RDW Standard Deviation 52.1(H) 36.0 - 45.0 fL [facility] RDW coefficient of variation 15.3(H) 11.4 - 13.8 % [facility] Mean Platelet Volume 11.6 7.6 - 12.9 fL [facility] NRBC% auto 0.0 % [facility] NRBC Absolute 0.000 0.000 - 0.000 x10(3)/mc L [facility] Blood specimen (specimen) 02/15/2020 12:30 PM EDT 02/15/2020 12:46 PM EDT Narrative Resulting Agency Comment Spec In Lab Nima Armstrong MD HEMATOLOGY ORDERABLE S Performing Organization Address City/[facility]/ZIP Co de Phone Number [facility] [place] [address] * Prepare RBC (02/15/2020 11:45 AM EDT) Dispensed? Yes [facility] Blood specimen (specimen) 02/15/2020 11:45 AM EDT 02/15/2020 11:44 AM EDT Nima Armstrong MD BLOOD BANK PRODUCT O RDERABLES [facility] [place] [address] * Transfuse RBC (02/15/2020 10:50 AM EDT) Nima Armstrong MD NURSING TREATMENT OR DERABLES - BLOOD ADMIN * Prepare RBC (02/15/2020 7:20 AM EDT) Dispensed? Yes [facility] Blood specimen (specimen) 02/15/2020 7:20 AM EDT 02/15/2020 7:17 AM EDT Nima Armstrong MD BLOOD BANK PRODUCT O RDERABLES Performing Organization Address City/State/[facility] Co de Phone Number [facility] [place] [address] * (ABNORMAL) Hemogram (02/15/2020 5:45 AM EDT) White Blood Cell 6.4 4.0 - 9.5 x10(3)/mc L [facility] Red Blood Cell 2.00(L) 4.58 - 5.54 x10(6)/[facility] LABORATORY Hemoglobin 6.3(L) 13.7 - 16.5 gm/dL [facility] Hematocrit 19.0(L) 40.5 - 48.5 % [facility] Mean Cell Volume 95.0(H) 82.9 - 93.1 fL [facility] Mean Cell Hemoglobin 31.5 27.5 - 32.1 pg [facility] Mean Cell Hemoglobin Concentration 33.2 32.0 - 35.7 gm/dL [facility] Platelet 94(L) 145 - 357 x10(3)/[facility] LABORATORY RDW Standard Deviation 51.5(H) 36.0 - 45.0 [facility] LABORATORY RDW coefficient of variation 14.7(H) 11.4 - 13.8 % [facility] Mean Platelet Volume 11.9 7.6 - 12.9 [facility] LABORATORY NRBC% auto 0.0 % [facility] NRBC Absolute 0.000 0.000 - 0.000 x10(3)/mc L [facility] Blood specimen (specimen) 02/15/2020 5:45 AM EDT 02/15/2020 5:52 AM EDT Narrative Resulting Agency Comment Spec In Lab Nima Armstrong MD HEMATOLOGY ORDERABLE S Performing Organization Address City/[facility]/ZIP Co de Phone Number [facility] [place] [address] * Scan, Peripheral Blood (02/15/2020 4:20 AM EDT) [facility] Plat estimate Decreased [facility] RBC Morphology Abnormal [facility] Macrocyte 1-5 /HPF [facility] Microcyte 1-5 /HPF [facility] Hypochromia Moderate [facility] Toxic Granulation Present [facility] Blood specimen (specimen) 02/15/2020 4:20 AM EDT 02/15/2020 4:37 AM EDT Narrative Resulting Agency Comment Spec In Lab Enrrique Patten MD HEMATOLOGY ORDERABLE S Performing Organization Address City/[facility]/ZIP Co de Phone Number [facility] [place] [address] * Differential, Automated (02/15/2020 4:20 AM EDT) [facility] Neutrophil % 68.5 % [facility] Neutrophil Absolute 4.46 1.70 - 6.10 x10(3)/[facility] LABORATORY Lymph % 19.1 % [facility] Lymphocytes Abs 1.2 0.9 - 3.2 x10(3)/[facility] LABORATORY Monocyte % 8.5 % [facility] Monocyte Abs 0.6 0.3 - 0.9 x10(3)/[facility] LABORATORY Eos % 3.1 % [facility] Eosinophils Abs 0.2 0.0 - 0.4 x10(3)/[facility] LABORATORY Basophil % 0.3 % [facility] Baso Absolute 0.0 0.0 - 0.1 x10(3)/[facility] LABORATORY Immature Gran % 0.50 % [facility] Comment: Immature granulocytes(IG's)percentage and absolute count will include metamyelocytes, myelocytes, and promyelocytes. Blood smears from CBCs yielding IG's will be scanned manually for concordance. If this scan disagrees with the automated IG or if promyelocytes are noted, a manual differential will be performed. Immature Gran Absolute 0.03 0.00 - 0.04 x10(3)/[facility] LABORATORY Blood specimen (specimen) 02/15/2020 4:20 AM EDT 02/15/2020 4:37 AM EDT Narrative Resulting Agency Comment Spec In Lab Enrrique Patten MD HEMATOLOGY ORDERABLE S [facility] [place] [address] * (ABNORMAL) Hemogram (02/15/2020 4:20 AM EDT) White Blood Cell 6.5 4.0 - 9.5 x10(3)/[facility] LABORATORY Red Blood Cell 2.03(L) 4.58 - 5.54 x10(6)/mc L [facility] Hemoglobin 6.5(L) 13.7 - 16.5 gm/dL [facility] Hematocrit 19.4(L) 40.5 - 48.5 % [facility] Mean Cell Volume 95.6(H) 82.9 - 93.1 fL [facility] Mean Cell Hemoglobin 32.0 27.5 - 32.1 pg [facility] Mean Cell Hemoglobin Concentration 33.5 32.0 - 35.7 gm/dL [facility] Platelet 99(L) 145 - 357 x10(3)/[facility] LABORATORY RDW Standard Deviation 51.6(H) 36.0 - 45.0 fL [facility] RDW coefficient of variation 14.6(H) 11.4 - 13.8 % [facility] Mean Platelet Volume 11.9 7.6 - 12.9 fL [facility] NRBC% auto 0.0 % [facility] NRBC Absolute 0.000 0.000 - 0.000 x10(3)/mc L [facility] Blood specimen (specimen) 02/15/2020 4:20 AM EDT 02/15/2020 4:37 AM EDT Narrative Resulting Agency Comment Spec In Lab Enrrique Patten MD HEMATOLOGY ORDERABLE S [facility] [place] [address] * (ABNORMAL) Basic Metabolic Panel (non-fasting) (02/15/2020 4:20 AM EDT) Glucose 104 65 - 199 mg/dL [facility] Comment:Diabetes: >=200 mg/d L plus symptoms Blood Urea Nitrogen 26(H) 10 - 20 mg/dL [facility] Creatinine 1.13 0.80 - 1.50 mg/dL [facility] Sodium 137 135 - 145 mmol/L [facility] Comment:result rechecked-KS Potassium 3.8 3.5 - 5.0 mmol/L [facility] Comment: result rechecked-KS Please note: ??Patients with WBC >100,000 may have falsely elevated Potassium levels. ??For accurate Potassium quantification in these patients send serum separator tube (gold top) for subsequent determinations. ??Contact the Clinical Chemistry Laboratory if there are any questions. Chloride 107 98 - 107 mmol/L [facility] Comment:result rechecked-KS Carbon Dioxide 23 22 - 31 mmol/L [facility] Anion Gap 7 5 - 15 mmol/L [facility] Calcium 7.0(L) 8.5 - 10.5 mg/dL [facility] Est Glomerular Filtration Rate 67 >=60 mL/min/1. 73 m?? [facility] Comment: The eGFR was calculated using the CKD-EPI equation. As with all creatinine based estimates of kidney function, eGFR values calculated with the CKD-EPI equation are not accurate in patients with acute kidney failure, extremes of body mass or the acutely ill. [email or web address] eGFR 78 >=60 mL/min/1. 73 m?? [facility] Comment: The eGFR was calculated using the CKD-EPI equation. As with all creatinine based estimates of kidney function, eGFR values calculated with the CKD-EPI equation are not accurate in patients with acute kidney failure, extremes of body mass or the acutely ill. [email or web address] Blood specimen (specimen) 02/15/2020 4:20 AM EDT 02/15/2020 4:37 AM EDT Narrative Resulting Agency Comment Spec In Lab Nima Armstrong MD CHEMISTRY ORDERABLES Performing Organization Address City/State/[facility] Co de Phone Number [facility] [place] [id number] * SCAN DOC: LAB (02/15/2020 12:00 AM EDT) Narrative 02/15/2020 12:00 AM EDT Ordered by an unspecified provider. Scanning Provider MEDIA MGR SCAN EXT O RDR/RSLT * KAMAR, legs, multiple levels (02/14/2020 12:28 PM EDT) VB Text Report Department: Vascular Surgery Lab Patient: [id number] (WALLY AGUILAR) CPT: 12785 ICD10: I70.211;I73.9; C79.89;C67.9 Referring Physician: NIMA ARMSTRONG [...] Brachial Artery ?86 ? Common Femoral Artery ?Warrick-Biphasi c ?? Popliteal Artery ? Warrick-Biphasic ?? Dorsalis Pedis (Ankle) Artery ?61 ?0.71 ??Warrick-Biphasi c ?? Posterior Tibial (Ankle) Artery ??73 ?0.85 ??Warrick-Biphasi c ?? Interpretation : RIGHT: Moderately severe [...] PM EDT Nima Armstrong MD VASCULAR ORDERABLES Performing Organization Address City/[facility]/ZIP Co de Phone Number [facility] * (ABNORMAL) Albumin Level (02/14/2020 1:50 AM EDT) Albumin 2.2(L) 3.2 - 5.2 gm/dL [facility] Blood specimen (specimen) 02/14/2020 1:50 AM EDT 02/14/2020 2:04 AM EDT Narrative Resulting Agency Comment Spec In Lab Nima Armstrong MD CHEMISTRY ORDERABLES Performing Organization Address [facility] Co de Phone Number [facility] [place] [address] * (ABNORMAL) Differential, Automated (02/14/2020 1:50 AM EDT) Neutrophil % 82.8 % [facility] Neutrophil Absolute 9.59(H) 1.70 - 6.10 x10(3)/mc L [facility] Lymph % 7.3 % [facility] Lymphocytes Abs 0.8(L) 0.9 - 3.2 x10(3)/mc L [facility] Monocyte % 9.4 % [facility] Monocyte Abs 1.1(H) 0.3 - 0.9 x10(3)/mc L [facility] Eos % 0.0 % [facility] Eosinophils Abs 0.0 0.0 - 0.4 x10(3)/mc L [facility] Basophil % 0.2 % [facility] Baso Absolute 0.0 0.0 - 0.1 x10(3)/mc L [facility] Immature Gran % 0.30 % [facility] Comment: Immature granulocytes(IG's)percentage and absolute count will include metamyelocytes, myelocytes, and promyelocytes. Blood smears from CBCs yielding IG's will be scanned manually for concordance. If this scan disagrees with the automated IG or if promyelocytes are noted, a manual differential will be performed. Immature Gran Absolute 0.04 0.00 - 0.04 x10(3)/ L [facility] Blood specimen (specimen) 02/14/2020 1:50 AM EDT 02/14/2020 1:56 AM EDT Narrative Resulting Agency Comment Spec In Lab Enrrique Patten MD HEMATOLOGY ORDERABLE S Performing Organization Address City/State/[facility] Co de Phone Number [facility] [place] [address] * (ABNORMAL) Hemogram (02/14/2020 1:50 AM EDT) White Blood Cell 11.6(H) 4.0 - 9.5 x10(3)/ L [facility] Red Blood Cell 2.47(L) 4.58 - 5.54 x10(6)/mc L [facility] Hemoglobin 8.0(L) 13.7 - 16.5 gm/dL [facility] Hematocrit 23.5(L) 40.5 - 48.5 % [facility] Mean Cell Volume 95.1(H) 82.9 - 93.1 fL [facility] Mean Cell Hemoglobin 32.4(H) 27.5 - 32.1 pg [facility] Mean Cell Hemoglobin Concentration 34.0 32.0 - 35.7 gm/dL [facility] Platelet 67(L) 145 - 357 x10(3)/[facility] RDW Standard Deviation 51.4(H) 36.0 - 45.0 fL [facility] RDW coefficient of variation 14.6(H) 11.4 - 13.8 % [facility] Mean Platelet Volume 12.0 7.6 - 12.9 fL [facility] NRBC% auto 0.0 % [facility] NRBC Absolute 0.000 0.000 - 0.000 x10(3)/mc L [facility] Blood specimen (specimen) 02/14/2020 1:50 AM EDT 02/14/2020 1:56 AM EDT Narrative Resulting Agency Comment Spec In Lab Enrrique Patten MD HEMATOLOGY ORDERABLE S [facility] [place] [address] * (ABNORMAL) Basic Metabolic Panel (non-fasting) (02/14/2020 1:50 AM EDT) Glucose 142 65 - 199 mg/dL [facility] Comment:Diabetes: >=200 mg/d L plus symptoms Blood Urea Nitrogen 31(H) 10 - 20 mg/dL [facility] Creatinine 1.21 0.80 - 1.50 mg/dL [facility] Sodium 138 135 - 145 mmol/L [facility] Potassium 5.0 3.5 - 5.0 mmol/L [facility] Comment: Please note: ??Patients with WBC >100,000 may have falsely elevated Potassium levels. ??For accurate Potassium quantification in these patients send serum separator tube (gold top) for subsequent determinations. ??Contact the Clinical Chemistry Laboratory if there are any questions. Chloride 106 98 - 107 mmol/L [facility] Carbon Dioxide 22 22 - 31 mmol/L [facility] Anion Gap 10 5 - 15 mmol/L [facility] Calcium 7.3(L) 8.5 - 10.5 mg/dL [facility] Est Glomerular Filtration Rate 62 >=60 mL/min/1. 73 m?? [facility] Comment: The eGFR was calculated using the CKD-EPI equation. As with all creatinine based estimates of kidney function, eGFR values calculated with the CKD-EPI equation are not accurate in patients with acute kidney failure, extremes of body mass or the acutely ill. [email or web address] eGFR 71 >=60 mL/min/1. 73 m?? [facility] Comment: The eGFR was calculated using the CKD-EPI equation. As with all creatinine based estimates of kidney function, eGFR values calculated with the CKD-EPI equation are not accurate in patients with acute kidney failure, extremes of body mass or the acutely ill. [email or web address] Blood specimen (specimen) 02/14/2020 1:50 AM EDT 02/14/2020 1:56 AM EDT Narrative Resulting Agency Comment Spec In Lab Nima Armstrong MD CHEMISTRY ORDERABLES Performing Organization Address City/State/[facility] Co de Phone Number [facility] [place] [address] * (ABNORMAL) Differential, Automated (02/13/2020 5:50 PM EDT) Neutrophil % 83.9 % [facility] Neutrophil Absolute 8.30(H) 1.70 - 6.10 x10(3)/mc L [facility] Lymph % 4.8 % [facility] Lymphocytes Abs 0.5(L) 0.9 - 3.2 x10(3)/mc L [facility] Monocyte % 10.5 % [facility] Monocyte Abs 1.0(H) 0.3 - 0.9 x10(3)/mc L [facility] Eos % 0.0 % [facility] Eosinophils Abs 0.0 0.0 - 0.4 x10(3)/mc L [facility] Basophil % 0.3 % [facility] Baso Absolute 0.0 0.0 - 0.1 x10(3)/mc L [facility] Immature Gran % 0.50 % [facility] Comment: Immature granulocytes(IG's)percentage and absolute count will include metamyelocytes, myelocytes, and promyelocytes. Blood smears from CBCs yielding IG's will be scanned manually for concordance. If this scan disagrees with the automated IG or if promyelocytes are noted, a manual differential will be performed. Immature Gran Absolute 0.05(H) 0.00 - 0.04 x10(3)/mc L [facility] Blood specimen (specimen) 02/13/2020 5:50 PM EDT 02/13/2020 6:08 PM EDT Narrative Resulting Agency Comment Spec In Lab Enrrique Patten MD HEMATOLOGY ORDERABLE S [facility] [place] [address] * (ABNORMAL) Hemogram (02/13/2020 5:50 PM EDT) White Blood Cell 9.9(H) 4.0 - 9.5 x10(3)/mc L [facility] Red Blood Cell 2.60(L) 4.58 - 5.54 x10(6)/mc L [facility] Hemoglobin 8.5(L) 13.7 - 16.5 gm/dL [facility] Comment: This result has been called to CHANTALE CRUZ by Yeni Haji on 02 13 2020 at 1826, and has been read back. Hematocrit 24.9(L) 40.5 - 48.5 % [facility] Mean Cell Volume 95.8(H) 82.9 - 93.1 fL [facility] Mean Cell Hemoglobin 32.7(H) 27.5 - 32.1 pg [facility] Mean Cell Hemoglobin Concentration 34.1 32.0 - 35.7 gm/dL [facility] Platelet 73(L) 145 - 357 x10(3)/ L [facility] RDW Standard Deviation 51.5(H) 36.0 - 45.0 fL [facility] RDW coefficient of variation 14.6(H) 11.4 - 13.8 % [facility] Mean Platelet Volume 12.0 7.6 - 12.9 fL [facility] NRBC% auto 0.0 % [facility] NRBC Absolute 0.000 0.000 - 0.000 x10(3)/mc L [facility] Blood specimen (specimen) 02/13/2020 5:50 PM EDT 02/13/2020 6:08 PM EDT Narrative Resulting Agency Comment Spec In Lab Enrrique Patten MD HEMATOLOGY ORDERABLE S [facility] [place] [address] * (ABNORMAL) Basic Metabolic Panel (non-fasting) (02/13/2020 5:50 PM EDT) Glucose 189 65 - 199 mg/dL [facility] Comment:Diabetes: >=200 mg/d L plus symptoms Blood Urea Nitrogen 32(H) 10 - 20 mg/dL [facility] Creatinine 1.11 0.80 - 1.50 mg/dL [facility] Sodium 138 135 - 145 mmol/L [facility] Potassium 4.9 3.5 - 5.0 mmol/L [facility] Comment: Please note: ??Patients with WBC >100,000 may have falsely elevated Potassium levels. ??For accurate Potassium quantification in these patients send serum separator tube (gold top) for subsequent determinations. ??Contact the Clinical Chemistry Laboratory if there are any questions. Chloride 106 98 - 107 mmol/L [facility] Carbon Dioxide 20(L) 22 - 31 mmol/L [facility] Anion Gap 12 5 - 15 mmol/L [facility] Calcium 6.9(Criti heath) 8.5 - 10.5 mg/dL [facility] Comment:Called by: veronica, Read back by: jemal ramirez_, Date/Time:02/13/20 18:45. Est Glomerular Filtration Rate 68 >=60 mL/min/1. 73 m?? [facility] Comment: The eGFR was calculated using the CKD-EPI equation. As with all creatinine based estimates of kidney function, eGFR values calculated with the CKD-EPI equation are not accurate in patients with acute kidney failure, extremes of body mass or the acutely ill. [email or web address] eGFR 79 >=60 mL/min/1. 73 m?? [facility] Comment: The eGFR was calculated using the CKD-EPI equation. As with all creatinine based estimates of kidney function, eGFR values calculated with the CKD-EPI equation are not accurate in patients with acute kidney failure, extremes of body mass or the acutely ill. [email or web address] Blood specimen (specimen) 02/13/2020 5:50 PM EDT 02/13/2020 6:08 PM EDT Narrative Resulting Agency Comment Spec In Lab Nima Armstrong MD CHEMISTRY ORDERABLES [facility] [place] [address] * (ABNORMAL) BLOOD GAS 2 ARTERIAL (02/13/2020 3:59 PM EDT) pH, Arterial 7.37 7.35 - 7.45 [facility] PCO2, Arterial 39 35 - 45 mmHg [facility] PO2, Arterial 227(H) 85 - 104 mmHg [facility] Bicarbonate, Arterial 22.2 20.0 - 26.0 mmol/L [facility] Base Excess, Arterial -3.0 -3.0 - 3.0 mmol/L [facility] Hgb Blood Gas 8.4(L) 13.7 - 16.5 gm/dL [facility] Oxyhemoglobin, Arterial 97.9(H) 94.0 - 97.0 % [facility] Carboxyhemoglob in, Arterial 0.9 % [facility] Comment: Nonsmokers: 0.5-1.5% COHB Smokers: Variable, but usually less than 10% Toxic: 20-30% COHB Lethal: Greater than 60% COHB Methemoglobin, Arterial 0.3 <=1.5 % [facility] Na Whole Blood 128(L) 135 - 145 mmol/L [facility] K Whole Blood 4.5 3.5 - 5.0 mmol/L [facility] Comment: Please note: Patients with WBC >100,000 may have falsely elevated Potassium levels. Contact the Clinical Chemistry Laboratory if there are any questions. ICa Whole Blood 1.07(L) 1.15 - 1.33 mmol/L [facility] Comment: Note: ??Total bilirubin higher than 20 mg/dL may lead to falsely low ionized calcium. CL Whole Blood 109(H) 98 - 107 mmol/L [facility] Gluc Whole Bld 172 65 - 199 mg/dL [facility] Comment:Diabetes: >=200 mg/d L plus symptoms. Lactate WB 1.7 0.5 - 2.2 mmol/L [facility] Blood specimen (specimen) 02/13/2020 3:59 PM EDT 02/13/2020 3:59 PM EDT Nima Armstrong MD POINT OF CARE TEST O ESCOBAR Performing Organization Address [facility] Co de Phone Number [facility] [place] [address] * Specimen to Pathology (02/13/2020 3:54 PM EDT) AP Specimen 02/13/2020 3:54 PM EDT 02/13/2020 3:54 PM EDT Narrative [facility] - 02/13/2020 3:54 PM EDT Specimen requisition ordered. ??Separate Pathology report to follow Nima Armstrong MD PATHOLOGY/CYTOLOGY O ESCOBAR Performing Organization Address City/[facility]/ZIP Co de Phone Number [facility] [place] [address] * Specimen to Pathology (02/13/2020 3:22 PM EDT) AP Specimen 02/13/2020 3:22 PM EDT 02/13/2020 3:22 PM EDT Narrative [facility] - 02/13/2020 3:22 PM EDT Specimen requisition ordered. ??Separate Pathology report to follow Nima Armstrong MD PATHOLOGY/CYTOLOGY O RDERABLES [facility] [place] [address] * (ABNORMAL) BLOOD GAS 2 ARTERIAL (02/13/2020 2:57 PM EDT) pH, Arterial 7.36 7.35 - 7.45 [facility] PCO2, Arterial 44 35 - 45 mmHg [facility] PO2, Arterial 231(H) 85 - 104 mmHg [facility] Bicarbonate, Arterial 24.1 20.0 - 26.0 mmol/L [facility] Base Excess, Arterial -1.4 -3.0 - 3.0 mmol/L [facility] Hgb Blood Gas 8.6(L) 13.7 - 16.5 gm/dL [facility] Oxyhemoglobin, Arterial 98.5(H) 94.0 - 97.0 % [facility] Carboxyhemoglob in, Arterial 0.6 % [facility] Comment: Nonsmokers: 0.5-1.5% COHB Smokers: Variable, but usually less than 10% Toxic: 20-30% COHB Lethal: Greater than 60% COHB Methemoglobin, Arterial 0.1 <=1.5 % [facility] Na Whole Blood 128(L) 135 - 145 mmol/L [facility] K Whole Blood 4.7 3.5 - 5.0 mmol/L [facility] Comment: Please note: Patients with WBC >100,000 may have falsely elevated Potassium levels. Contact the Clinical Chemistry Laboratory if there are any questions. ICa Whole Blood 1.02(L) 1.15 - 1.33 mmol/L [facility] Comment: Note: ??Total bilirubin higher than 20 mg/dL may lead to falsely low ionized calcium. CL Whole Blood 109(H) 98 - 107 mmol/L [facility] Gluc Whole Bld 169 65 - 199 mg/dL [facility] Comment:Diabetes: >=200 mg/d L plus symptoms. Lactate WB 1.7 0.5 - 2.2 mmol/L [facility] Blood specimen (specimen) 02/13/2020 2:57 PM EDT 02/13/2020 2:57 PM EDT Nima Armstrong MD POINT OF CARE TEST O ESCOBAR Performing Organization Address [facility] Co de Phone Number [facility] [place] [address] * Specimen to Pathology (02/13/2020 2:26 PM EDT) AP Specimen 02/13/2020 2:26 PM EDT 02/13/2020 2:48 PM EDT Narrative [facility] - 02/13/2020 2:49 PM EDT Specimen requisition ordered. ??Separate Pathology report to follow Resulting Agency Comment Spec In Lab Nima Armstrong MD PATHOLOGY/CYTOLOGY O RDCATE Performing Organization Address [facility] Co de Phone Number [facility] [place] [address] * Specimen to Pathology (02/13/2020 2:12 PM EDT) AP Specimen 02/13/2020 2:12 PM EDT 02/13/2020 2:48 PM EDT Narrative [facility] - 02/13/2020 2:49 PM EDT Specimen requisition ordered. ??Separate Pathology report to follow Resulting Agency Comment Spec In Lab Nima Armstrong MD PATHOLOGY/CYTOLOGY O RDCATE Performing Organization Address [facility] Co de Phone Number [facility] [place] [address] * (ABNORMAL) BLOOD GAS 2 ARTERIAL (02/13/2020 1:50 PM EDT) pH, Arterial 7.30(L) 7.35 - 7.45 [facility] PCO2, Arterial 45 35 - 45 mmHg [facility] PO2, Arterial 212(H) 85 - 104 mmHg [facility] Bicarbonate, Arterial 21.9 20.0 - 26.0 mmol/L [facility] Base Excess, Arterial -4.5(L) -3.0 - 3.0 mmol/L [facility] Hgb Blood Gas 9.0(L) 13.7 - 16.5 gm/dL [facility] Oxyhemoglobin, Arterial 98.2(H) 94.0 - 97.0 % [facility] Carboxyhemoglob in, Arterial 0.7 % [facility] Comment: Nonsmokers: 0.5-1.5% COHB Smokers: Variable, but usually less than 10% Toxic: 20-30% COHB Lethal: Greater than 60% COHB Methemoglobin, Arterial 0.3 <=1.5 % [facility] Na Whole Blood 129(L) 135 - 145 mmol/L [facility] K Whole Blood 4.6 3.5 - 5.0 mmol/L [facility] Comment: Please note: Patients with WBC >100,000 may have falsely elevated Potassium levels. Contact the Clinical Chemistry Laboratory if there are any questions. ICa Whole Blood 1.09(L) 1.15 - 1.33 mmol/L [facility] Comment: Note: ??Total bilirubin higher than 20 mg/dL may lead to falsely low ionized calcium. CL Whole Blood 109(H) 98 - 107 mmol/L [facility] Gluc Whole Bld 155 65 - 199 mg/dL [facility] Comment:Diabetes: >=200 mg/d L plus symptoms. Lactate WB 1.6 0.5 - 2.2 mmol/L [facility] FIO2 Art 50 % [facility] Flow Art 2.0 LPM [facility] PF Ratio Art 424 [facility] Temp Art 37.0 Celsius [facility] Blood specimen (specimen) 02/13/2020 1:50 PM EDT 02/13/2020 1:50 PM EDT Nima Armstrong MD POINT OF CARE TEST O ESCOBAR Performing Organization Address City/[facility]/[place] [address] * Specimen to Pathology (02/13/2020 1:35 PM EDT) AP Specimen 02/13/2020 1:35 PM EDT 02/13/2020 2:49 PM EDT Narrative [facility] - 02/13/2020 2:49 PM EDT Specimen requisition ordered. ??Separate Pathology report to follow Resulting Agency Comment Spec In Lab Nima Armstrong MD PATHOLOGY/CYTOLOGY O ESCOBAR Performing Organization Address City/[facility]/ZIP Co de Phone Number [facility] [place] [address] * Specimen to Pathology (02/13/2020 1:29 PM EDT) AP Specimen 02/13/2020 1:29 PM EDT 02/13/2020 2:48 PM EDT Narrative [facility] - 02/13/2020 2:49 PM EDT Specimen requisition ordered. ??Separate Pathology report to follow Resulting Agency Comment Spec In Lab Nima Armstrong MD PATHOLOGY/[place] [address] * Specimen to Pathology (02/13/2020 1:20 PM EDT) AP Specimen 02/13/2020 1:20 PM EDT 02/13/2020 1:20 PM EDT Narrative [facility] - 02/13/2020 1:20 PM EDT Specimen requisition ordered. ??Separate Pathology report to follow Nima Armstrong MD PATHOLOGY/CYTOLOGY O ESCOBAR Performing Organization Address [facility] Co de Phone Number [facility] [place] [address] * Specimen to Pathology (02/13/2020 1:15 PM EDT) AP Specimen 02/13/2020 1:15 PM EDT 02/13/2020 1:15 PM EDT Narrative [facility] - 02/13/2020 1:15 PM EDT Specimen requisition ordered. ??Separate Pathology report to follow Nima Armstrong MD PATHOLOGY/CYTOLOGY O ESCOBAR Performing Organization Address [facility] Co de Phone Number [facility] [place] [address] * Specimen to Pathology (02/13/2020 12:57 PM EDT) AP Specimen 02/13/2020 12:5 7 PM EDT 02/13/2020 12:57 PM EDT Narrative [facility] - 02/13/2020 12:57 PM EDT Specimen requisition ordered. ??Separate Pathology report to follow Nima Armstrong MD PATHOLOGY/CYTOLOGY O ESCOBAR Performing Organization Address [facility] Co de Phone Number [facility] [place] [address] * (ABNORMAL) BLOOD GAS 2 ARTERIAL (02/13/2020 12:44 PM EDT) pH, Arterial 7.25(Criti heath) 7.35 - 7.45 [facility] Comment:Noted by instrument sterilizer. PCO2, Arterial 47(H) 35 - 45 mmHg [facility] PO2, Arterial 216(H) 85 - 104 mmHg [facility] Bicarbonate, Arterial 20.0 20.0 - 26.0 mmol/L [facility] Base Excess, Arterial -7.3(L) -3.0 - 3.0 mmol/L [facility] Hgb Blood Gas 10.1(L) 13.7 - 16.5 gm/dL [facility] Oxyhemoglobin, Arterial 98.4(H) 94.0 - 97.0 % [facility] Carboxyhemoglob in, Arterial 0.4 % [facility] Comment: Nonsmokers: 0.5-1.5% COHB Smokers: Variable, but usually less than 10% Toxic: 20-30% COHB Lethal: Greater than 60% COHB Methemoglobin, Arterial 0.3 <=1.5 % [facility] Na Whole Blood 128(L) 135 - 145 mmol/L [facility] K Whole Blood 4.7 3.5 - 5.0 mmol/L [facility] Comment: Please note: Patients with WBC >100,000 may have falsely elevated Potassium levels. Contact the Clinical Chemistry Laboratory if there are any questions. ICa Whole Blood 1.11(L) 1.15 - 1.33 mmol/L [facility] Comment: Note: ??Total bilirubin higher than 20 mg/dL may lead to falsely low ionized calcium. CL Whole Blood 108(H) 98 - 107 mmol/L [facility] Gluc Whole Bld 138 65 - 199 mg/dL [facility] Comment:Diabetes: >=200 mg/d L plus symptoms. Lactate WB 2.2 0.5 - 2.2 mmol/L [facility] FIO2 Art 50 % [facility] PF Ratio Art 432 [facility] Blood specimen (specimen) 02/13/2020 12:44 PM EDT 02/13/2020 12:44 PM EDT Nima Armstrong MD POINT OF CARE TEST O RDERABLES [facility] [place] [address] * Specimen to Pathology (02/13/2020 11:56 AM EDT) AP Specimen 02/13/2020 11:5 6 AM EDT 02/13/2020 11:56 AM EDT Narrative [facility] - 02/13/2020 11:56 AM EDT Specimen requisition ordered. ??Separate Pathology report to follow Nima Armstrong MD PATHOLOGY/CYTOLOGY O ESCOBAR Performing Organization Address [facility] [place] [address] * Specimen to Pathology (02/13/2020 11:21 AM EDT) AP Specimen 02/13/2020 11:2 1 AM EDT 02/13/2020 11:21 AM EDT Narrative [facility] - 02/13/2020 11:21 AM EDT Specimen requisition ordered. ??Separate Pathology report to follow Nima Armstrong MD PATHOLOGY/CYTOLOGY O ESCOBAR Performing Organization Address [facility] [place] [address] * Surgical Pathology Report (02/13/2020 10:31 AM EDT) Final Diagnosis [id number] ? [facility]; A The signing pathologist has (i) examined [...] Cabrera MD Verified: ??02/27/2020 ?Pathologist Performed at: ??-[facility] Dept. of Pathology, [place], [place] [employer] Specimen Parts: ??A to L [...] Annual Release ADDITIONAL STUDIES Whole slide scan: [id number] [id number],4,5 [id number] D4, D6, D8, D9, D11 SPECIMEN(S) SUBMITTED [...] DESCRIPTION Resection Specimen: Intact, Cystoprostatectomy LESION Description: [place]-red, firm, rubbery, tumor bed, consisting of a [...] x 2.5 cm. Surface: Smooth, glistening. Mucosa: [place] white, rugated. Wall: Ranging from 0.6-1.1 cm in thickness. Margins: 0.9 cm to left-posterior perivesical margin Left Ureter: 2.3 cm, patent, uninvolved. Right Ureter: 2.1 cm, patent. Urethra: 2.9 cm, smooth, pink-white, without lesions. PROSTATE Specimen Description: Vaguely nodular and roughly symmetric. DIMENSIONS [place] to base: 3.4 cm. Transverse: 3.8 cm. [...] serially sectioned from apex to base. Sections/Processing: Packaging Supervisor sections in 29 cassettes as follows: ?D1: ??Distal prostatic urethral margin, en face ?D2: ??Right ureter margin, en face ?D3: ??Left ureter margin, en face ?D4-D16: ??Tumor bed, including left ureteral orifice lesion, entirely submitted ? (D4-D5, D6-D7, D9-D10, D11-D12, D13-D14, and D15-D16: bisected full-thickness ? sections) ?D17: ??Right bladder wall, including right ureteral orifice, shipping services sales representative ?D18: ??Anterior bladder wall, shipping services sales representative ?D19: ??Posterior bladder wall, shipping services sales representative ?D20: ??[place], shipping services sales representative ?D21: ??Trigone, shipping services sales representative ?D22: ??Prostate, left apex, shipping services sales representative . SPECIMEN PROCESSING ?D23: ??Prostate, right apex, shipping services sales representative ?D24: ??Prostate, left mid, shipping services sales representative ?D25: ??Prostate, right mid, shipping services sales representative ?D26: ??Prostate, left base, shipping services sales representative ?D27: ??Prostate, right base, shipping services sales representative ?D28: ??Left seminal vesicle and vas deferens, shipping services sales representative ?D29: ??Right seminal vesicle and vas deferens, shipping services sales representative E - Labeled/Fixative: Left common and external lymph nodes, fresh. Quantity/Size: Multiple, 7.7 x 4.0 x 1.6 cm in aggregate. Tissue Description: Adipose tissue with eight lymph nodes, up to 4.8 cm in greatest dimension. Sections/Processing: Packaging Supervisor sections in 16 cassettes as follows: ?E1: [...] to 3.0 cm in greatest dimension. Sections/Processing: Packaging Supervisor sections in 3 cassettes as follows: ?F1-F3: ??One lymph node, serially sectioned G - Labeled/Fixative: Additional left internal iliac and obturator lymph nodes, fresh. Quantity/Size: Multiple, 5.3 x 2.5 x 1.5 cm in aggregate. Tissue Description: Adipose tissue with two lymph nodes, up to 2.6 cm in greatest dimension. Sections/Processing: Packaging Supervisor sections in 3 cassettes as follows: ?G1: ??One lymph node, serially sectioned ?G2-G3: ??One lymph node, serially sectioned H - Labeled/Fixative: Presacral lymph nodes, fresh. Quantity/Size: Multiple, 7.5 x 4.0 x 1.3 cm in aggregate. Tissue Description: Adipose tissue with seven lymph nodes, up to 4.1 cm in greatest dimension. Sections/Processing: Packaging Supervisor sections in 12 cassettes as follows: ?H1: [...] to 5.2 cm in greatest dimension. Sections/Processing: Packaging Supervisor sections in 9 cassettes as follows: ?I1: ??Two lymph nodes ?I2: ??Two lymph nodes ?I3-I4: ??One lymph node, serially sectioned ?I5-I9: ??One lymph node, serially sectioned . SPECIMEN PROCESSING J - Labeled/Fixative: Right obturator lymph nodes, fresh. Quantity/Size: Multiple, 5.2 x 3.2 x 1.7 cm in aggregate. Tissue Description: Adipose tissue with one lymph node, up to 4.9 cm in greatest dimension. Sections/Processing: Packaging Supervisor sections in 4 cassettes as follows: ?J1-J4: [...] sectioned to reveal unremarkable pink-white mucosa. Sections/Processing: Packaging Supervisor sections in 3 cassettes as follows: ?K1: ??Terminal margin 1 (with suture) ?K2: ??Terminal margin 2 ?K3: ??Packaging Supervisor central ureter L - Labeled/Fixative: Additional right ureter, fresh. Quantity/Size: Single, 6.1 x 0.8 cm. Tissue Description: Unorientated segment of noyola-pink ureter with scant adherent periureteral fat. One end of the specimen is marked with the suture, and is designated terminal margin 1 by the prosector. The specimen is serially sectioned to reveal unremarkable pink-white mucosa. Sections/Processing: Packaging Supervisor sections in 3 cassettes as follows: ?L1: ??Terminal margin 1 (with suture) ?L2: ??Terminal margin 2 ?L3: ??Packaging Supervisor central ureter ??ERJG ?Frozen Section FROZEN SECTION DIAGNOSIS CFS - Right distal ureter: ?Urothelial atypia; deeper levels ?were obtained. - ROYCEG 02/13/20 12:33 Electronically signed by: ??Viktor LION, Trae Garcia Verified: ??02/13/2020 ?Pathologist Performed at: ??-[facility] Dept. of Pathology, [place], [place] This intraoperative consultation should be interpreted as a preliminary diagnosis pending review of the entire specimen and special studies, if any. ?Frozen Section FROZEN SECTION DIAGNOSIS BFS - Left distal ureter: ?Urothelial atypia, cannot exclude ?dysplasia. - JLG 02/13/20 11:43 Electronically signed by: ??Trae Hoang MD Verified: ??02/13/2020 ?Pathologist Performed at: ??-[facility] Dept. of Pathology, [place], [place] This intraoperative consultation should be interpreted as a preliminary diagnosis pending review of the entire specimen and special studies, if any. ?Frozen Section FROZEN SECTION DIAGNOSIS - AFS1 Liver mass: ?Calcified nodule, negative for cancer . FROZEN SECTION DIAGNOSIS 02/13/20 11:07 Electronically signed by: ??Guero Faye MD Verified: ??02/13/2020 ?Pathologist Performed at: ??-[facility] Dept. of Pathology, [place], [place] This intraoperative consultation should be interpreted as a preliminary diagnosis pending review of the entire specimen and special studies, if any. 02/27/2020 3:40 PM EDT [facility] URETERIC STRUCTURE / Unknown 02/13/2020 10:31 [...] AM EDT Nima Armstrong MD PATHOLOGY/CYTOLOGY O ESCOBAR Performing Organization Address [facility] Co de Phone Number [facility] [place] [address] * Specimen to Pathology (02/13/2020 10:31 AM EDT) AP Specimen 02/13/2020 10:3 1 AM EDT 02/13/2020 10:31 AM EDT Narrative [facility] - 02/13/2020 10:31 AM EDT Specimen requisition ordered. ??Separate Pathology report to follow Nima Armstrong MD PATHOLOGY/CYTOLOGY O RDCATE Performing Organization Address [facility] Co de Phone Number [facility] [place] [address] * (ABNORMAL) BLOOD GAS 2 ARTERIAL (02/13/2020 10:06 AM EDT) pH, Arterial 7.34(L) 7.35 - 7.45 [facility] PCO2, Arterial 38 35 - 45 mmHg [facility] PO2, Arterial 243(H) 85 - 104 mmHg [facility] Bicarbonate, Arterial 20.9 20.0 - 26.0 mmol/L [facility] Base Excess, Arterial -5.1(L) -3.0 - 3.0 mmol/L [facility] Hgb Blood Gas 13.3(L) 13.7 - 16.5 gm/dL [facility] Oxyhemoglobin, Arterial 98.5(H) 94.0 - 97.0 % [facility] Carboxyhemoglob in, Arterial 0.7 % [facility] Comment: Nonsmokers: 0.5-1.5% COHB Smokers: Variable, but usually less than 10% Toxic: 20-30% COHB Lethal: Greater than 60% COHB Methemoglobin, Arterial 0.2 <=1.5 % [facility] Na Whole Blood 131(L) 135 - 145 mmol/L [facility] K Whole Blood 4.2 3.5 - 5.0 mmol/L [facility] Comment: Please note: Patients with WBC >100,000 may have falsely elevated Potassium levels. Contact the Clinical Chemistry Laboratory if there are any questions. ICa Whole Blood 1.13(L) 1.15 - 1.33 mmol/L [facility] Comment: Note: ??Total bilirubin higher than 20 mg/dL may lead to falsely low ionized calcium. CL Whole Blood 109(H) 98 - 107 mmol/L [facility] Gluc Whole Bld 135 65 - 199 mg/dL [facility] Comment:Diabetes: >=200 mg/d L plus symptoms. Lactate WB 1.3 0.5 - 2.2 mmol/L [facility] FIO2 Art 60 % [facility] Flow Art 1.0 LPM [facility] PF Ratio Art 405 [facility] Temp Art 35.5 Celsius [facility] Blood specimen (specimen) 02/13/2020 10:06 AM EDT 02/13/2020 10:06 AM EDT Nima Armstrong MD POINT OF CARE TEST O ESCOBAR [facility] [place] [address] * XR Fluoro No Rad <1Hr - OR Use (02/13/2020 8:57 AM EDT) Narrative RAD - 02/13/2020 8:58 AM EDT This exam is auto-finalizing. No interpretation was done. Nima Bhatia MD IMG FLUORO ORDERABLE S Performing Organization Address City/[facility]/ZIP Co de Phone Number [place], [place] * Scan, Peripheral Blood (02/13/2020 7:05 AM EDT) Pathologist [facility] Plat estimate Decreased [facility] RBC Morphology Normal [facility] Blood specimen (specimen) 02/13/2020 7:05 AM EDT 02/13/2020 7:21 AM EDT Narrative Resulting Agency Comment Spec In Lab Ori Bashir MD HEMATOLOGY ORDERABLE S Performing Organization Address City/[facility]/ZIP Co de Phone Number [facility] [place] [address] * Differential, Automated (02/13/2020 7:05 AM EDT) Pathologist [facility] Neutrophil % 55.9 % [facility] Neutrophil Absolute 2.73 1.70 - 6.10 x10(3)/[facility] Lymph % 19.7 % [facility] Lymphocytes Abs 1.0 0.9 - 3.2 x10(3)/[facility] Monocyte % 16.8 % [facility] Monocyte Abs 0.8 0.3 - 0.9 x10(3)/[facility] Eos % 6.4 % [facility] Eosinophils Abs 0.3 0.0 - 0.4 x10(3)/[facility] Basophil % 1.0 % [facility] Baso Absolute 0.0 0.0 - 0.1 x10(3)/[facility] Immature Gran % 0.20 % [facility] Comment: Immature granulocytes(IG's)percentage and absolute count will include metamyelocytes, myelocytes, and promyelocytes. Blood smears from CBCs yielding IG's will be scanned manually for concordance. If this scan disagrees with the automated IG or if promyelocytes are noted, a manual differential will be performed. Immature Gran Absolute 0.01 0.00 - 0.04 x10(3)/mcL [facility] Blood specimen (specimen) 02/13/2020 7:05 AM EDT 02/13/2020 7:21 AM EDT Narrative Resulting Agency Comment Spec In Lab Ori Bashir MD HEMATOLOGY ORDERABLE S [facility] [place] [address] * (ABNORMAL) Hemogram (02/13/2020 7:05 AM EDT) White Blood Cell 4.9 4.0 - 9.5 x10(3)/mc L [facility] Red Blood Cell 4.79 4.58 - 5.54 x10(6)/mc L [facility] Hemoglobin 15.2 13.7 - 16.5 gm/dL [facility] Hematocrit 45.6 40.5 - 48.5 % [facility] Mean Cell Volume 95.2(H) 82.9 - 93.1 fL [facility] Mean Cell Hemoglobin 31.7 27.5 - 32.1 pg [facility] Mean Cell Hemoglobin Concentration 33.3 32.0 - 35.7 gm/dL [facility] Platelet 87(L) 145 - 357 x10(3)/mc L [facility] RDW Standard Deviation 50.9(H) 36.0 - 45.0 fL [facility] RDW coefficient of variation 14.4(H) 11.4 - 13.8 % [facility] Mean Platelet Volume 12.2 7.6 - 12.9 fL [facility] NRBC% auto 0.0 % [facility] NRBC Absolute 0.000 0.000 - 0.000 x10(3)/mc L [facility] Blood specimen (specimen) 02/13/2020 7:05 AM EDT 02/13/2020 7:21 AM EDT Narrative Resulting Agency Comment Spec In Lab Ori Bashir MD HEMATOLOGY ORDERABLE S [facility] [place] [address] * Phosphorus (02/13/2020 7:05 AM EDT) Phosphorus 3.2 2.5 - 4.5 mg/dL [facility] Blood specimen (specimen) 02/13/2020 7:05 AM EDT 02/13/2020 7:21 AM EDT Narrative Resulting Agency Comment Spec In Lab Nima Armstrong MD CHEMISTRY ORDERABLES Performing Organization Address [facility]/ZIP Co de Phone Number [facility] [place] [address] * Magnesium (02/13/2020 7:05 AM EDT) Magnesium 0.79 0.69 - 1.07 mmol/L [facility] Blood specimen (specimen) 02/13/2020 7:05 AM EDT 02/13/2020 7:21 AM EDT Narrative Resulting Agency Comment Spec In Lab Nima Armstrong MD CHEMISTRY ORDERABLES Performing Organization Address [facility]/ZIP Co de Phone Number [facility] [place] [address] * (ABNORMAL) Basic Metabolic Panel (non-fasting) (02/13/2020 7:05 AM EDT) Glucose 131 65 - 199 mg/dL [facility] Comment:Diabetes: >=200 mg/d L plus symptoms Blood Urea Nitrogen 43(H) 10 - 20 mg/dL [facility] Creatinine 1.26 0.80 - 1.50 mg/dL [facility] Sodium 135 135 - 145 mmol/L [facility] Potassium 4.0 3.5 - 5.0 mmol/L [facility] Comment: Please note: ??Patients with WBC >100,000 may have falsely elevated Potassium levels. ??For accurate Potassium quantification in these patients send serum separator tube (gold top) for subsequent determinations. ??Contact the Clinical Chemistry Laboratory if there are any questions. Chloride 99 98 - 107 mmol/L [facility] Carbon Dioxide 20(L) 22 - 31 mmol/L [facility] Anion Gap 16(H) 5 - 15 mmol/L [facility] Calcium 9.0 8.5 - 10.5 mg/dL [facility] Est Glomerular Filtration Rate 59(L) >=60 mL/min/1. 73 m?? [facility] Comment: The eGFR was calculated using the CKD-EPI equation. As with all creatinine based estimates of kidney function, eGFR values calculated with the CKD-EPI equation are not accurate in patients with acute kidney failure, extremes of body mass or the acutely ill. [email or web address] eGFR 68 >=60 mL/min/1. 73 m?? [facility] Comment: The eGFR was calculated using the CKD-EPI equation. As with all creatinine based estimates of kidney function, eGFR values calculated with the CKD-EPI equation are not accurate in patients with acute kidney failure, extremes of body mass or the acutely ill. [email or web address] Blood specimen (specimen) 02/13/2020 7:05 AM EDT 02/13/2020 7:21 AM EDT Narrative Resulting Agency Comment Spec In Lab Nima Armstrong MD CHEMISTRY ORDERABLES [facility] [place] [address] documented in this encounter Visit Diagnoses Not on filedocumented in this encounter Admitting Diagnoses Diagnosis Bladder cancer Malignant neoplasm of bladder, part unspecified documented in this encounter Administered Medications Inactive Administered Medications - up to 3 most recent administrations Medication Order MAR Action Action Date Dose Rate Site acetaminophen (Tylenol) tablet 1,000 mg 1,000 mg, [...] Given 02/28/2020 10:57 PM EDT 1,000 mg albuteroL 90 mcg/actuation inhaler 2 puff 2 puff, Inhalation, 4 TIMES DAILY, First dose on Wed02/14/20 at 0900, Until Discontinued, Routine, Is there a contraindication to the patient receiving this medication as a nebulizer? Yes Given 03/05/2020 10:00 AM EDT 2 puffs Given 03/02/2020 9:49 AM EDT 2 puffs Given 03/01/2020 10:05 AM EDT 2 puffs aspirin chewable tablet 81 mg 81 mg, [...] Given 03/04/2020 8:26 AM EDT 20 mg calcium carbonate (Tums) chewable tablet 1,000 mg 1,000 mg, Oral, EVERY 6 HOURS PRN, Starting on Wed03/01/20 at 2031, Until Wed03/07/20 at 1703, Heartburn, Routine dronabinoL (Marinol) capsule 2.5 mg 2.5 mg, [...] Last dose on Wed04/25/20 at 0900, Routine Given 03/07/2020 9:29 AM EDT 50,000 Units Given 02/29/2020 5:34 PM EDT 50,000 Units free water bolus 200 mL 200 mL, Per G Tube, 2 TIMES DAILY, First dose on Wed03/04/20 at 2100, Until Discontinued, Please give with Chantix to reduce GI upset., Routine Given 03/07/2020 9:00 AM EDT 200 mLs Given 03/06/2020 9:00 PM EDT 200 mLs Given 03/06/2020 10:55 AM EDT 200 mLs heparin, porcine 100 unit/mL flush 500 Units 500 Units (5 mL), Intravenous, DAILY PRN, 1 dose, Starting on Wed03/07/20 at 1249, Until Wed03/07/20 at 1703, Line Care, Terminal Flush for de-accessing of Implantable Port, Routine lidocaine (LIDODERM) 5 % patch 3 patch [...] Discontinued, Remove lidocaine 5 %(700 mg/patch) patch melatonin tablet 6 mg 6 mg, Oral, NIGHTLY, First dose on Wed02/28/20 at 2100, Until Discontinued, Routine Given 03/06/2020 9:00 PM EDT 6 mg Given 03/05/2020 9:35 PM EDT 6 mg Given 03/04/2020 10:11 PM EDT 6 mg methylphenidate (Ritalin) tablet 12.5 mg 12.5 [...] Given 03/06/2020 12:26 PM EDT 12.5 mg metoprolol tartrate (Lopressor) tablet 12.5 mg 12.5 mg, Oral, EVERY 12 HOURS SCHEDULED, First dose on Wed03/01/20 at 1100, Until Discontinued, OK to give via Gtube if he refuses oral. Hold for HR< 60 or SBP < 100., Routine Given 03/07/2020 9:30 AM EDT 12.5 mg Given 03/06/2020 8:45 PM EDT 12.5 mg Given 03/06/2020 10:36 AM EDT 12.5 mg miconazole nitrate (REMEDY PHYTOPLEX) 2 % ointment Topical (Top), 2 TIMES DAILY, First dose on Wed02/20/20 at 2100, Until Discontinued Given 03/07/2020 9:30 AM EDT Given 03/06/2020 9:00 PM EDT Given 03/05/2020 9:50 PM EDT mirtazapine (Remeron) disintegrating tablet 7.5 mg 7.5 [...] Given 03/06/2020 8:45 PM EDT [address] (Protonix) granules 40 mg [...] Given 03/06/2020 10:38 AM EDT 40 mg phenol 1.4% (CHLORASEPTIC) spray 1 spray 1 spray, Oral, EVERY 2 HOURS PRN, Starting on Wed02/19/20 at 0942, Until Wed03/07/20 at 1703, Irritation, Routine prochlorperazine (COMPAZINE) injection 10 mg 10 mg, [...] Given 03/06/2020 9:00 AM EDT 5 mLs sucralfate (Carafate) (100 mg/mL) oral liquid 1 g 1 g, Oral, 4 TIMES DAILY BEFORE MEALS & NIGHTLY, First dose on Wed03/06/20 at 0945, Until Discontinued, Routine Given 03/07/2020 11:33 AM EDT 1 g Given 03/07/2020 7:25 AM EDT 1 g Given 03/06/2020 8:45 PM EDT 1 g traMADoL (Ultram) tablet 50 mg 50 mg, [...] 1,680 mLs 250 mL/hr varenicline (Chantix) tablet 1 mg 1 mg, [...] (Given - Provider: Soniya Moss RN) 0802 (MAR Hold - Provider: Admin Adt - Reason: Transfer to a Procedural area)0900 (Automatically Held - Provider: Admin Adt)0949 (MAR Unhold - Provider: Admin Adt)1037 (Given - Provider: Wendy King RN) 0930 (Given - Provider: Wendy King RN) atorvastatin (Lipitor) tablet 20 mg 20 mg, Oral, DAILY, First dose on Wed02/14/20 at 0900, Until Discontinued, Routine 0900 (Not Given - Provider: Soniya Moss RN - Reason: Patient/family refused)0959 (Not Given - Provider: Soniya Moss RN - Reason: Patient/family refused) 0802 (SEP Hold - Provider: Admin Adt - Reason: Transfer to a Procedural area)0900 (Automatically Held - Provider: Admin Adt)0949 ([facility] Unhold - Provider: Admin Adt)1037 (Given - Provider: Wendy King RN) 0930 (Given - Provider: Wendy King, RN) dronabinoL (Marinol) capsule 2.5 mg 2.5 mg, Oral, 2 TIMES DAILY, First dose on Wed02/26/20 at 1345, Until Discontinued, Routine 0959 (Not Given - Provider: Soniya Moss RN - Reason: Patient/family refused)2133 (Not Given - Provider: Danie Callahan RN - Reason: Patient/family refused - Comment: refusing PO meds) 0802 ([facility] Hold - Provider: Admin Adt - Reason: Transfer to a Procedural area)0900 (Automatically Held - Provider: Admin Adt)0949 ([facility] Unhold - Provider: Admin Adt)1037 (Given - Provider: Wendy King RN)204 (Given - Provider: Bailey Collins RN) 0929 (Given - Provider: Wendy King RN) enoxaparin (LOVENOX) injection 40 mg 40 mg, Subcutaneous, EVERY 24 HOURS SCHEDULED, First dose on Wed02/19/20 at 1930, Until Discontinued, Please teach pt how to self inject lovenox, Routine 0958 (Given - Provider: Soniya Moss RN) 0802 ([facility] Hold - Provider: Admin Adt - Reason: Transfer to a Procedural area)0900 (Automatically Held - Provider: Admin Adt)0949 ([facility] Unhold - Provider: Admin Adt)1037 (Given - Provider: Wendy King RN) 0929 (Given - Provider: Wendy King, RN) ergocalciferoL (vitamin D2) (8,000 units/mL) oral liquid 50,000 Units 50,000 Units, Per G Tube, WEEKLY, 9 doses, First dose on Bety 02/29/20 at 1330, Last dose on Bety 04/25/20 at 0900, Routine 0802 ([facility] Hold - Provider: Admin Adt - Reason: Transfer to a Procedural area)0949 ([facility] Unhold - Provider: Admin Adt) 0929 (Given - Provider: Wendy King RN) free water bolus 200 mL 200 mL, Per G Tube, 2 TIMES DAILY, First dose on Wed03/04/20 at 2100, Until Discontinued, Please give with Chantix to reduce GI upset., Routine 0959 (Given - Provider: Soniya Moss RN)2100 (Given - Provider: Danie Callahan, KEYA) 0802 (SEP Hold - Provider: Admin Adt - Reason: Transfer to a Procedural area)0900 (Automatically Held - Provider: Admin Adt)0949 (MAR Unhold - Provider: Admin Adt)1055 (Given - Provider: Wendy King, RN)2100 (Given - Provider: Bailey Collins, RN) 0900 (Given - Provider: Wendy King RN) lidocaine (LIDODERM) 5 % patch 3 patch(Linked Group 1) 3 patch, Transdermal, EVERY 24 HOURS, First dose on Wed02/19/20 at 1330, Until Discontinued, Apply patch(es) for 12 hours, and then remove for 12 hours, Routine 1330 (Not Given - Provider: Soniya Moss RN - Reason: Patient/family refused) 0802 (MAR [...] Not Removed (add comment) - Provider: Danie Callahan, KEYA)0802 (SEP Hold - Provider: Admin Adt - Reason: Transfer to a Procedural area)0949 (MAR Unhold - Provider: Admin Adt) 0045 (Patch Removed - Provider: Bailey Collins, KEYA) melatonin tablet 6 mg 6 mg, Oral, NIGHTLY, First dose on Wed02/28/20 at 2100, Until Discontinued, Routine 213 (Given - Provider: Danie Callahan, KEYA) 0802 (MAR Hold - Provider: Admin Adt - Reason: Transfer to a Procedural area)0949 (MAR Unhold - Provider: Admin Adt)2100 (Given - Provider: Bailey Collins, RN) methylphenidate (Ritalin) tablet 12.5 mg 12.5 [...] 0557 (Given - Provider: Danie Callahan RN)0802 (MAR Hold - Provider: Admin Adt - Reason: Transfer to a Procedural area)0949 (MAR Unhold - Provider: Admin Adt)1226 (Given - Provider: Wendy King RN) 0628 (Given - Provider: Bailey Collins, KEYA)1132 (Given - Provider: Wendy King, KEYA) metoprolol tartrate (Lopressor) tablet 12.5 mg 12.5 mg, Oral, EVERY 12 HOURS SCHEDULED, First dose on Wed03/01/20 at 1100, Until Discontinued, OK to give via Gtube if he refuses oral. Hold for HR< 60 or SBP < 100., Routine 0959 (Given - Provider: Soniya Moss RN)213 (Given - Provider: Danie Callahan RN) 0802 (MAR Hold - Provider: Admin Adt - Reason: Transfer to a Procedural area)0900 (Automatically Held - Provider: Admin Adt)0949 (MAR Unhold - Provider: Admin Adt)1036 (Given - Provider: Wendy King RN)2045 (Given - Provider: Bailey Collins, KEYA) 0930 (Given - Provider: Wendy King RN) miconazole nitrate (REMEDY PHYTOPLEX) 2 % ointment Topical (Top), 2 TIMES DAILY, First dose on Wed02/20/20 at 2100, Until Discontinued 59 (Given - Provider: Soniya Moss RN)2150 (Given - Provider: Danie Callahan RN) 0802 (SEP Hold - Provider: Admin Adt - Reason: Transfer to a Procedural area)0900 (Automatically Held - Provider: Admin Adt)0949 (SEP Unhold - Provider: Admin Adt)2100 (Given - Provider: Bailey Collins, KEYA) 0930 (Given - Provider: Wendy King, KEYA) mirtazapine [...] for pharmacy to send to the floor) 0802 (SEP Hold - Provider: Admin Adt - Reason: Transfer to a Procedural area)0900 (Automatically Held - Provider: Admin Adt)0949 ([facility] Unhold - Provider: Admin Adt)2044 (Given - Provider: Bailey Collins, KEYA) 06 (Given - Provider: Bailey Collins RN - Comment: verbal order to give early by NAHID Camacho)1418 (Given - Provider: Wendy King, KEAY) pantoprazole DR (Protonix) granules 40 mg 40 [...] Soniya Moss RN)2136 (Given - Provider: Danie Callahan, KEYA) 0802 (SEP Hold - Provider: Admin Adt - Reason: Transfer to a Procedural area)0900 (Automatically Held - Provider: Admin Adt)0949 (SEP Unhold - Provider: Admin Adt)1038 (Given - Provider: Wendy King RN)2046 (Given - Provider: Bailey Collins, KEYA) 0930 (Given - Provider: Wendy King RN) sodium chloride 0.9 % (flush) flush 5 mL 5 mL, Intravenous, 2 TIMES DAILY, First dose on Wed02/13/20 at 2230, Until Discontinued, Recovery (Recovery-Hospital Unit), Routine 0959 (Given - Provider: Soniya Moss, KEYA)2149 (Given - Provider: Danie Callahan, KEYA) 0900 (Given - Provider: Wendy King RN)2052 [...] 200cc bolus)2200 (New Bag - Provider: Bailey Collins, RN) 0700 (New Bag - Provider: Bailey Collins, KEYA)1100 (New Bag - Provider: Wendy King RN)1400 [...] BID until the end of treatment, Routine 0959 (Given - Provider: Soniya Moss RN)2133 (Not Given - Provider: Danie Callahan RN - Reason: Patient/family refused - Comment: refusing PO meds) 0802 (SEP Hold - Provider: Admin Adt - Reason: Transfer to a Procedural area)0900 (Automatically Held - Provider: Admin Adt)0949 (SEP Unhold - Provider: Admin Adt)1039 (Given - Provider: Wendy King RN)2046 (Given [...] 0029 (Stopped - Provider: Danie Callahan RN)0802 (MAR Hold - Provider: Admin Adt - Reason: Transfer to a Procedural area)0949 (MAR Unhold - Provider: Admin Adt) PRN Medication [...] crush and admin through g-tube, Routine 0802 ([facility] Hold - Provider: Admin Adt - Reason: Transfer to a Procedural area)0949 ([facility] Unhold - Provider: Admin Adt) calcium carbonate (Tums) chewable tablet 1,000 mg 1,000 mg, Oral, EVERY 6 HOURS PRN, Starting on Wed03/01/20 at 2031, Until Wed03/07/20 at 1703, Heartburn, Routine 0802 ([facility] Hold - Provider: Admin Adt - Reason: Transfer to a Procedural area)0949 ([facility] Unhold - Provider: Admin Adt) heparin, porcine 100 unit/mL flush 500 Units 500 Units (5 mL), Intravenous, DAILY PRN, 1 dose, Starting on Wed03/07/20 at 1249, Until Wed03/07/20 at 1703, Line Care, Terminal Flush for de-accessing of Implantable Port, Routine 1422 (Due - Provider : Naatly Caballero LPN - Comment: terminal flush prior [...] 0942, Until Wed03/07/20 at 1703, Irritation, Routine 0802 ([facility] Hold - Provider: Admin Adt - Reason: Transfer to a Procedural area)0949 ([facility] Unhold - Provider: Admin Adt) prochlorperazine (COMPAZINE) injection 10 mg 10 mg, Intravenous, EVERY 6 HOURS PRN, Starting on Wed02/14/20 at 1209, Until Wed03/07/20 at 1703, Nausea, Routine 0802 ([facility] Hold - Provider: Admin Adt - Reason: Transfer to a Procedural area)0949 ([facility] Unhold - Provider: Admin Adt)2102 (Given - Provider: Bailey Collins RN) sodium chloride 0.9 % (flush) flush 5-20 mL 5-20 mL, Intravenous, EVERY 1 MIN PRN, Starting on Wed02/13/20 at 2144, Until Wed03/07/20 at 1703, flush, Flush pertains to all [...] reuptake inhibitors (SSRIs) with tramadol., Routine 0802 ([facility] Hold - Provider: Admin Adt - Reason: Transfer to a Procedural area)0949 ([facility] Unhold - Provider: Admin Adt) Linked Groups [...] documented as of this encounter Care Teams Desktop Publishing Operator Relationship Specialty Start Date End Date Subhash Dowling MD [address] [place] [address] PCP - General 06/03/10 documented as of this encounter
--- OUTSIDE RECORDS SUMMARY | 2024-08-15 01:36 | XMS_ITS | Encounter Summary ---
[place] [address] Care Team Providers Care Stem Cleaning Machine Feeder Name Role Phone Subhash Dowling MD Primary Care Provider [phone] Encounter Details Date Type Department Care Team (Late st Contact Info) Description 02/07/2020 [place] [phone] Fannie Mcgovern RN Social History Tobacco Use Types Packs/Day [...] encounter Miscellaneous Notes * Telephone Encounter - Fannie Mcgovern RN - 02/07/2020 2:17 PM EDT Telephone call received from patient's friend Ketty to schedule covid 19 testing with patient. Reports patient is forgetful and has difficulty with managing appointments and to contact her with anyquestions, her number is in the chart. Ordering provider: Stephan Armstrong Testing Facility: [facility] Date of Testin02/10/2020 Time of Testin Symptoms: Patient without symptoms. Testing is for surgery scheduled on 02/13/2020 through urology. documented in this encounter Plan of Treatment Upcoming Encounters Date Type Department Care Team (Late st Contact Info) Description 08/15/2024 11:30 AM EST Office Visit Hematology/Oncology at [address] [phone] Chanelle Kim, [facility] [place] [address] Bee Curry, [facility] [place] [address] documented as of this encounter Visit Diagnoses Not on filedocumented in this encounter Care Teams Stem Cleaning Machine Feeder Relationship Specialty Start Date End Date Subhash Dowling MD [address] [place] [address] PCP - General 06/03/10 documented as of this encounter
--- OUTSIDE RECORDS SUMMARY | 2024-08-15 01:36 | XMS_ITS | Encounter Summary ---
Author Organization Formerly [facility] [place] [address] Care Team Providers Care City Letter Carrier Name Role Phone Subhash Dowling MD Primary Care Provider Reason for Referral * Diagnostic Test (Routine) - Closed Specialty Diagnoses / Procedures Referred By Contac t Referred To Contact Radiology Diagnoses Malignant neoplasm of urinary bladder, unspecified site Procedures NM Bone Scan Whole Body Stephan Armstrong MD [facility] [place] [address] [place] [address] Referral ID Status Reason Start Date Expiration Date V isits Requested Visits Authorized [id number] Closed Specialty Service Requested 01/25/2020 07/27/2021 1 1 Reason for Visit * Diagnostic Test (Routine) - Closed Specialty Diagnoses / Procedures Referred By Contac t Referred To Contact Radiology Diagnoses Malignant neoplasm of urinary bladder, unspecified site Procedures NM Bone Scan Whole Body Stephan Armstrong MD [facility] [place] [address] [place] [address] Referral ID Status Reason Start Date Expiration Date V isits Requested Visits Authorized [id number] Closed Specialty Service Requested 01/25/2020 07/27/2021 1 1 Encounter Details Date Type Department Care Team (Latest Contact Info) Description 01/31/2020 8:44 AM EDT - 01/31/2020 11:31 AM EDT Hospital Encounter Nuclear Medicine at [facility] [place] [address] Stephan Armstrong MD [facility] [place] [address] Malignant neoplasm of urinary bladder, unspecified site Discharge Disposition: Home Social History Tobacco Use [...] 1 tablet by mouth nightly. 03/06/2020 06/24/2021 nitazoxanide (ALINIA) 500 mg Tablet Take 1 tablet by mouth 2 times daily for 2 days. 3 tablet 03/06/2020 03/07/[address] (Protonix) [address] [...] mouth daily. 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 Start drug 1 week before quit day. 53 tablet 11/29/2019 03/07/2020 atenoloL (Tenormin) 25 mg Tablet Take 25 mg by mouth daily. 03/07/2020 traMADoL (Ultram) 50 mg Tablet Take 50 mg by mouth every 6 hours as needed for Pain. 03/07/2020 documented as of this encounter Plan of Treatment Upcoming Encounters Date Type Department Care Team (Late st Contact Info) Description 08/15/2024 11:30 AM EST Office Visit Hematology/Oncology at [address] [phone] Chanelle Kim, [facility] [place] [address] Bee Curry, [facility] [place] [address] documented as of this encounter Procedures Procedure Name Priority Date/Time Associated Diagnosis Comments NM BONE SCAN WHOLE BODY Routine 01/31/2020 12:09 PM EDT Malignant neoplasm of urinary bladder, unspecified site documented in this encounter Results * NM Bone Scan Whole Body (01/31/2020 12:09 PM EDT) Anatomical Region Laterality Modality Nuclear Medicine Impressions 01/31/2020 12:52 PM EDT No skeletal metastasis. Thank you for letting us participate in the care of this patient. For questions regarding this report, please contact the number below. ? Narrative 01/31/2020 12:52 PM EDT EXAMINATION: NM BONE SCAN WHOLE BODY CLINICAL HISTORY: Urologic cancer, staging Bladder cancer sp chemotherapy. Elevated Alk Phos, ? bone mets. TECHNIQUE: Three hours following the intravenous administration of 25 mCi of technetium-99m MDP, planar images of the skeleton in anterior and posterior projection were obtained. COMPARISON: None FINDINGS: No abnormal activity is seen. The kidneys and bladder are unremarkable. Small focus of surface contamination overlying the right upper abdomen. Procedure Note Severo Webster MD - 01/31/2020 EXAMINATION: NM BONE SCAN WHOLE BODY CLINICAL HISTORY: Urologic cancer, staging Bladder cancer sp chemotherapy. Elevated Alk Phos, ? bone mets. TECHNIQUE: Three hours following the intravenous administration of 25 mCiof technetium-99m MDP, planar images of the skeleton in anterior andposterior projection were obtained. COMPARISON: None FINDINGS: No abnormal activity is seen. The kidneys and bladder are unremarkable. Small focus of surfacecontamination overlying the right upper abdomen. IMPRESSION No skeletal metastasis. Thank you for letting us participate in the care of this patient. Forquestions regarding this report, please contact the number below. Stephan Armstrong MD [facility] [place] documented in this encounter Visit Diagnoses Diagnosis Malignant neoplasm of urinary bladder, unspecified site documented in this encounter Administered Medications Inactive Administered Medications - up to 3 most recent administrations Medication Order MAR Action Action Date Dose Rate Site technetium (Tc-99m) methylene diphosphonate (MDP) injection 0-30 mCi 0-30 mCi, Intravenous, ONCE PRN, 1 dose, Starting on Wed01/31/20 at 0906, Until Wed01/31/20 at 0906, Per Protocol, Radiology Contrast, Routine Given 01/31/2020 9:06 AM EDT 25 mCi Implanted Port documented in this encounter Care Teams City Letter Carrier Relationship Specialty Start Date End Date Subhash Dowling MD [address] [place] [address] PCP - General 06/03/10 documented as of this encounter
--- OUTSIDE RECORDS SUMMARY | 2024-08-15 01:36 | XMS_ITS | Encounter Summary ---
Author Organization [facility] [place] [address] Care Team Providers Care Sprinkler Irrigation Equipment Mechanic Name Role Phone Subhash Dowling MD Primary Care Provider [phone] Encounter Details Date Type Department Care Team (Late Contact Info) Description 02/07/2020 [place] [phone] Dyana Gongora Social History Tobacco Use Types Packs/Day Years [...] encounter Miscellaneous Notes * Telephone Encounter - Dyana Eng - 02/07/2020 11:37 AM EDT Left message for patient to schedule preop covid 19 test for procedure 8/4 documented in this encounter Plan of Treatment Upcoming Encounters Date Type Department Care Team (Late Contact Info) Description 08/15/2024 11:30 AM EST Office Visit Hematology/Oncology at [address] [phone] Chanelle Kim, [facility] [place] [address] Bee Curry APRN [facility] [place] [address] documented as of this encounter Visit Diagnoses Not on filedocumented in this encounter Additional Health Concerns Infection Onset Date Last Indicated Resolved Time Rule Out C. difficile 02/16/2020 02/16/20202019 4:52 PM EDT documented as of this encounter Care Teams Sprinkler Irrigation Equipment Mechanic Relationship Specialty Start Date End Date Subhash Dowling MD [address] [place] [id number] PCP - General 06/03/10 documented as of this encounter
--- OUTSIDE RECORDS SUMMARY | 2024-08-15 01:36 | XMS_ITS | Encounter Summary ---
Author Organization [facility] [place] [address] Care Team Providers Care Meteorological Observer Name Role Phone Subhash Dowling MD Primary Care Provider [phone] Reason for Referral * Diagnostic Test (Routine) - Closed Specialty Diagnoses / Procedures Referred By Contac t Referred To Contact Radiology Diagnoses Malignant neoplasm of urinary bladder, unspecified site Procedures NM Bone Scan Whole Body Stephan Armstrong MD [facility] [place] [address] [place] [address] Referral ID Status Reason Start Date Expiration Date V isits Requested Visits Authorized [id number] Closed Specialty Service Requested 01/25/2020 07/27/2021 1 1 Encounter Details Date Type Department Care Team (Late st Contact Info) Description 01/25/2020 [place] [address] Stephan Armstrong MD [facility] [address] Malignant neoplasm of urinary bladder, unspecified site [...] 11:30 AM EST Office Visit Hematology/Oncology at [address] [phone] Chanelle Kim, [facility] [place] [address] Bee Curry, [facility] [place] [address] documented as of this encounter Results * NM Bone Scan [...] contact the number below. Stephan Armstrong MD [facility] [place] ORDERABLES documented in this encounter Visit Diagnoses Diagnosis Malignant neoplasm of urinary bladder, unspecified site- Primary Malignant neoplasm of urinary bladder, unspecified site documented in this encounter Care Teams Meteorological Observer Relationship Specialty Start Date End Date Subhash Dowling MD [address] [place] [address] PCP - General 06/03/10 documented as of this encounter
--- OUTSIDE RECORDS SUMMARY | 2024-08-15 01:36 | XMS_ITS | Encounter Summary ---
Author Organization [facility] [address] Care Team Providers Care Beef Splitter Name Role Phone Subhash Dowling MD Primary Care Provider [phone] Encounter Details Date Type Department Care Team (Latest Contact Info) Description 02/01/2020 Multidisciplinary [place] [phone] Enrrique Patten MD Social History Tobacco Use Types Packs/Day [...] as of this encounter Progress Notes * Enrrique Patten MD - 02/01/2020 4:32 PM EDT - Tumor Board Note Date Presented: 02/01/2020 Presenting Physician: Patti Diagnosis/Tumor Site: Urothelial cancer Is this Metastatic Disease: Yes Synopsis of History/HPI: Gt Aguilar is a 69 y.o. male s/p TURBT in February. Pathology showed MIBC. He missed several MedOnc/RadOnc appointments and f/up PET scan showed possible metastatic disease. One of these lesions was biopsied. Imaging: Reviewed Pathology/Histology: Not back yet from biopsy of lymph node Stage: T2 Options Discussed: Is he chemo eligible? Does he need NAC before radical cystectomy? Recommendations: Do not proceed with cystectomy if biopsy is positive. If biopsy is negative, proceed with cystectomy. DISCLAIMER: The patient was discussed and the tumor board made recommendations but it is ultimatelyup to the treatment provider(s) and the patient to determine the patient???s care. documented in this encounter Plan of Treatment Upcoming Encounters Date Type Department Care Team (Late st Contact Info) Description 08/15/2024 11:30 AM EST Office Visit Hematology/Oncology at [address] [phone] Chanelle Kim, [facility] [place] [address] Bee Curry [facility] [place] [address] documented as of this encounter Visit Diagnoses Not on filedocumented in this encounter Care Teams Beef Splitter Relationship Specialty Start Date End Date Subhash Dowling MD [address] [place] [address] PCP - General 06/03/10 documented as of this encounter
--- OUTSIDE RECORDS SUMMARY | 2024-08-15 01:36 | XMS_ITS | Encounter Summary ---
[place] [address] Care Team Providers Care Private Banker Name Role Phone Subhash Dowling MD Primary Care Provider [phone] Encounter Details Date Type Department Care Team (Late st Contact Info) Description 01/29/2020 Telephone Hematology [place] [phone] Kalyani Burgos, KEYA Social History Tobacco Use [...] encounter Miscellaneous Notes * Telephone Encounter - Kalyani Burgos RN - 01/29/2020 3:01 PM EDT I called patient`s friend, Subhash Ramirez, at [phone] CT biopsy and bone scan on 01/31/20. I educated Subhash on the procedure and will relay it to . Gt Aguilar. Subhash will callSW Nadia Mueller regarding a change in pt`s transportation pick-up time. Per Subhash Gt Aguilar should be picked up at 07:00 to be able to get to his NM bone scan injection at 09:00. * Telephone Encounter - Kalyani Burgos RN - 01/29/2020 3:00 PM EDT ----- Message from Stephan Armstrong MD sent at 01/25/2020 3:26 PM EDT ----- Marii/Kalyani I called nuclear medicine and they said they will work it out to get him on 01/30. Can you check/make sure he knows etc,etc Thanks Silver ----- Message ----- From: Marii Carr Sent: 01/25/2020 2:23 PM EDT To: Stephan Armstrong MD, Lou Melissa, # Hello, I just called down to [facility] to schedule the bone scan to coordinate with his CT biopsy on 01/30 and they have absolutely no availability that day. Thanks, Marii ----- Message ----- From: Lou Melissa Sent: 01/25/2020 11:28 AM EDT To: Stephan Armstrong MD, Kalyani Burgos RN, # Hello, You don't have all day availability till 03/05. Pt has no showed/ rescheduled multiple appointments for his biopsy and GIM, not sure if you were aware of that or not. Marii can you try to coordinatea NM Bone scan on 01/30. Kalyani do you want me to reach out to him or do you? Also do you have the contact # for Subhash that you were speaking with yesterday? Thank you Lou rabago ----- Message ----- From: Stephan Armstrong MD Sent: 01/25/2020 11:20 AM EDT To: Kalyani Vásquez, KEYA Blake We need to move his surgery back 2 weeks. 01/30/ to 02/05 is too soon for surgery after his biopsy toensure an adequate time for result/ decision making etc. Can we also arrange for an NM bone scan on the day of his biopsy. Please make sure everyone, including the patient who is coordinating knows the change of plan/datesetc Thanks Silver SHI Thanks Silver documented in this encounter Plan of Treatment Upcoming Encounters Date Type Department Care Team (Late st Contact Info) Description 08/15/2024 11:30 AM EST Office Visit Hematology/Oncology at [address] [phone] [facility] [address] [facility] [address] documented as of this encounter Visit Diagnoses Not on filedocumented in this encounter Care Teams Private Banker Relationship Specialty Start Date End Date Subhash Dowling MD [address] [place] [address] PCP - General 06/03/10 documented as of this encounter
--- OUTSIDE RECORDS SUMMARY | 2024-08-15 01:36 | XMS_ITS | Encounter Summary ---
Author Organization [facility] [place] [address] Care Team Providers Care Commercial Counsel Name Role Phone Subhash Dowling MD Primary Care Provider [phone] Reason for Visit * Reason Onset Date Comments Other 01/30/2020 treansportation Encounter Details Date Type Department Care Team (Late st Contact Info) Description 01/30/2020 Telephone Hematology/Oncology at [address] [phone] Nadia Mueller MSW OFFICE OF CARE MANAGEMENT Other (treansportation) Social History Tobacco Use Types Packs/Day Years [...] Telephone Encounter - Nadia Mueller MSW - 01/30/2020 6:46 AM EDT Informed by Kalyani Burgos RN, Nurse Navigator that pt's surgery has been reschedule to 02-13-20. Faxed [facility] to cancel ride to on 02-06-20 and requested a ride [place] [facility] [place] with an arrival time of 7:30 am. Faxed new physician referral form to [employer]. documented in this encounter Plan of Treatment Upcoming Encounters Date Type Department Care Team (Late st Contact Info) Description 08/15/2024 11:30 AM EST Office Visit Hematology/Oncology at [address] [phone] Chanelle Kim [facility] [address] Bee Curry [facility] [place] [address] documented as of this encounter Visit Diagnoses Not on filedocumented in this encounter Care Teams Commercial Counsel Relationship Specialty Start Date End Date Subhash Dowling MD [address] [place] [address] PCP - General 06/03/10 documented as of this encounter
--- OUTSIDE RECORDS SUMMARY | 2024-08-15 01:36 | XMS_ITS | Encounter Summary ---
[place] [address] Care Team Providers Care Training Assistant Name Role Phone Subhash Dowling MD Primary Care Provider [phone] Reason for Visit * Auth/Cert Specialty Diagnoses / Procedures Referred By Contelaina t Referred To Contact Diagnoses Bladder cancer Bladder Cancer . Procedures PRO CYSTECTOMY, ILEAL CONDUIT/SIGMOID BLADDER @[email or web address], COMPLETE, WITH ILEAL CONDUIT (WRVU 36.33) Referral ID Status Reason Start Date Expiration Date Visits Re quested Visits Authorized [id number] 1 1 Encounter Details Date Type Department Care Team (Late st Contact Info) Description 02/10/2020 10:15 AM EDT Public [place] [phone] COVID-19 ruled out (Primary Dx) Social History Tobacco Use Types [...] AM EST Office Visit Hematology/Oncology at [address] [phone] Chanelle Kim APRN [facility] [place] [address] Bee Curry APRN [facility] [place] [address] documented as of this encounter Procedures Procedure Name Priority Date/Time Associated Diagnosis Comments COVID-19 PCR STAT 02/10/2020 12:33 PM EDT COVID-19 ruled out documented in this encounter Results * COVID-19 PCR (02/10/2020 12:33 PM EDT) SARS-CoV-2 RNA Not Detected Not Detected [facility] Comment: This result should be interpreted in combination with the clinical observations, patient history and epidemiological information. For testing of asymptomatic individuals, assay performance characteristics and clinical utility have not been evaluated. Testing for SARS-CoV-2 (Severe acute respiratory syndrome coronavirus 2, formerly known as 2019 novel coronavirus or 2019-nCoV) to aid in the diagnosis of COVID-19 is performed using the [employer] RealTime SARS-CoV-2 as authorized by the FDA Emergency Use Authorization (EUA). This EUA assay is intended for In-vitro Diagnostic (IVD) use with respiratory specimens such as nasopharyngeal swabs collected from individuals during the acute phase of infection. This assay is performed based on the instructions for use provided by the [employer] and additional guidance provided by CDC and FDA. Testing is performed in the [facility] within the Department of Pathology and Laboratory Medicine at [facility], certified under the Clinical Laboratory Improvement Amendments [...] fact sheets at the following FDA website: https://www.fda.gov/medical-devices/mevhmnxxa-hnqmblkwro-felcdwi-devices/emergen -us e-authorizations#zxvkz70xyb SARS-CoV-2 RNA Source METAL BONDING HELPER Swab [facility] Nasopharyngeal swab (specimen) 02/10/2020 12:33 PM EDT 02/10/2020 12:33 PM EDT Comment:Symptoms->Fever / Re spiratory Symptoms Narrative Resulting Agency Comment Spec In Lab Stephan Armstrong MD MOLECULAR ORDERABLES [facility] [place] [address] documented in this encounter Visit Diagnoses Diagnosis COVID-19 ruled out- Primary documented in this encounter Care Teams Training Assistant Relationship Specialty Start Date End Date Subhash Dowling MD [address] [place] [address] PCP - General 06/03/10 documented as of this encounter
--- OUTSIDE RECORDS SUMMARY | 2024-08-15 01:36 | XMS_ITS | Encounter Summary ---
[place] [address] Care Team Providers Care Contract Graphic Designer Name Role Phone Subhash Dowling MD Primary Care Provider [phone] Reason for Referral * Diagnostic Test (Emergency) - Closed Specialty Diagnoses / Procedures Referred By Contac t Referred To Contact Cardiology Diagnoses Hypertension, unspecified type Procedures Echocardiogram Transthoracic([facility]) Roseann Guzmán MD [facility] [place] [address] [facility] [place] [address] Referral ID Status Reason Start Date Expiration Date V isits Requested Visits Authorized [id number] Closed Specialty Service Requested 01/25/2020 01/24/2021 1 1 Reason for Visit * Diagnostic Test (Emergency) - Closed Specialty Diagnoses / Procedures Referred By Contac t Referred To Contact Cardiology Diagnoses Hypertension, unspecified type Procedures Echocardiogram Transthoracic([facility]) Roseann Guzmán MD [facility] [place] [address] [facility] [place] [address] Referral ID Status Reason Start Date Expiration Date V isits Requested Visits Authorized [id number] Closed Specialty Service Requested 01/25/2020 01/24/2021 1 1 Encounter Details Date Type Department Care Team (Late st Contact Info) Description 01/25/2020 1:47 PM EDT - 01/25/2020 11:59 PM EDT Hospital Encounter Non-Invasive Cardiology Lab [facility] [place] [address] Roseann Guzmán MD [facility] [place] [address] Hypertension, unspecified type Discharge Disposition: Home Social History Tobacco Use [...] AM EST Office Visit Hematology/Oncology at [address] [phone] Chanelle Kim, [facility] [place] [address] Patricio Bee A, [facility] [place] [address] documented as of this encounter Procedures Procedure Name Priority Date/Time Associated Diagnosis Comments ECHO COMPLETE STAT 01/25/2020 2:58 PM EDT Hypertension, unspecified type documented in this encounter Results * ECHO COMPLETE (01/25/2020 2:58 PM EDT) EF 71 HEARTLAB SYSTEM Anatomical Region Laterality Modality Other 01/25/2020 Narrative 01/25/2020 3:25 PM EDT Procedure: ?Transthoracic Echocardiogram Patient: ?YVES Hernandez ?(Age): 1950(69y) Med Rec#: ? [id number] ?Sex: ?M ? [place] [facility] [place]t / Wt: ??167(cm)/53(kg) Pt. Loc: ?Echo Lab ?BSA: ?1.59 Study Date: ?? 01/25/2020 ?Pt. Type: Outpatient Tape: ? Referring: SWEETIE Reading: John Shukla ([id number]) Cleaner Housekeeping: Jamie Schilling Interpreting Fellow: Tobias Redd ([id number]) Diagnosis: *Essential (primary) hypertension (I10) Rhythm: ? Sinus BP: ? 137/86 SUMMARY: 1. The left ventricular chamber size is normal. Left ventricular wall thickness is normal. The quantitative left ventricular ejection fraction by biplane Howell's method is 71%. There are no left ventricular segmental wall motion abnormalities. 2. Right ventricular chamber size, wall thickness, and systolic function are within normal limits. The estimated pulmonary artery systolic pressure is 31 mmHg. The estimated right atrial pressure is 3 mmHg. 3. The right atrium appears normal. The left atrium is normal in size. 4. There is no hemodynamically significant valve disease. 5. See remainder of report for additional findings. 6. Compared to study from 03/21/2019, there is no significant change. Findings ? : Study Quality: ? Adequate Left Ventricle: ? The left ventricular chamber size is normal. ?Left ventricular wall thickness is normal. ?There is normal global left ventricular systolic function. ?The quantitative left ventricular ejection fraction by biplane Howell's method is 71%. ?There are no left ventricular segmental wall motion abnormalities. ?The left ventricular diastolic filling pattern is consistent with impaired LV relaxation. ?Doppler assessment is consistent with normal left sided filling pressure. Left Atrium: ? The left atrium is normal in size.24 ml/m2 ?The inter-atrial septum appears lipomatous. ?There is no evidence of a patent foramen ovale by color Doppler. Right Ventricle: ? Right ventricular chamber size, wall thickness, and systolic function are within normal limits. ?No pulmonary hypertension is noted. ?The estimated pulmonary artery systolic pressure is 31 mmHg. ?The estimated right atrial pressure is 3 mmHg. Right Atrium: ? The right atrium appears normal. Aortic Valve: ? The aortic valve is tricuspid. ?The aortic valve leaflets are mildly thickened. ?There is no evidence of aortic valve stenosis. ?There is no evidence of aortic regurgitation. Mitral Valve: ? The mitral valve appears normal in structure and function. ?There is trace mitral regurgitation present. Tricuspid Valve: ? The tricuspid valve appears normal in structure and function. ?There is mild (1+/4+) tricuspid regurgitation present. Pulmonic Valve: ? The pulmonic valve appears normal in structure and function. Pericardium: ? The pericardium appears normal and there is no evidence of a pericardial effusion. Aorta: ? The aortic root is normal in size. ?The ascending aorta is normal in size. Pulmonary Artery: ? The main pulmonary artery appears normal. Venous: ? The inferior vena cava appears normal in size. ?There is a greater than 50% respiratory change in the inferior vena cava dimension. Misc: ? There is no hemodynamically significant valve disease. ?Two-dimensional echo, spectral Doppler and color Doppler performed. Chambers 2D ?Value ?Units (Range) ? IVSd (2D) ? 0.78 ? cm ? LVPWd (2D) ?0.67 ? cm ? IVS:LVPW ratio (2D) 1.16 ? ratio ? RWT (2D) ?0.34 ? ratio ? RWT PW (2D) ? 0.32 ? ratio ? LVIDd (2D) ?4.25 ? cm ? LVIDs (2D) ?2.44 ? cm ? LVIDd (2D) index ?2.68 ? cm/m2 ? LVIDs (2D) index ?1.54 ? cm/m2 ? LV FS (2D) ?42.52 ?% ? EF Teichholz (2D) ?? 73.93 ?% ? Ao root diameter (2D2.99 ? cm (2.1 - 3.6) ? Ascending Ao ?3.3 ?cm (2 - 3.5) ? Volumes/Mass ?Value ?Units (Range) ? LA ESV BP (A/L) inde24.04 ?ml/m2 ? LV ESV SP 4CH (MOD) 9.97 ? ml ? LV ESV SP 2CH (MOD) 21.86 ?ml ? LV EDV BP ? 51.56 ?ml ? LV ESV BP ? 14.78 ?ml ? LV EDV BP index ? 32.48 ?ml/m2 ? LV ESV BP index ? 9.31 ? ml/m2 ? BP EF (MOD) ? 71.33 ?% ? LV mass (2D) ?90.96 ?g ? LV mass (2D) index ??57.3 ? g/m2 ? Diastolic/Systolic Function ?Value ?Units (Range) ? MV E-wave Vmax ?0.75 ? m/sec ? MV deceleration [id number] ? msec ? MV A-wave Vmax ?0.79 ? m/sec ? MV E:A ratio ?0.95 ? ratio ? LV septal e' Vmax ?? 0.08 ? m/sec ? LV lateral e' Vmax ??0.1 ?m/sec ? LV average e' Vmax ??0.09 ? m/sec ? LV E:e' septal ratio9.33 ? ratio ? LV E:e' lateral rati7.47 ? ratio ? LV average E:e' rati8.3 ?ratio ? Tricuspid Valve ?Value ?Units (Range) ? TR Vmax ? 2.63 ? m/sec ? TR peak gradient ?27.67 ?mmHg ? RAP ? 3 ?mmHg ? RVSP ?31 ? mmHg ? Wall Motion: Segment Name ?Rest ? Base-Anteroseptal ?? Normal ? Base-Anterior ? Normal ? Base-Anterolateral ??Normal ? Base-Posterolateral Normal ? Base-Inferior ? Normal ? Base-Inferoseptal ?? Normal ? Mid-Anteroseptal ?Normal ? Mid-Anterior ?Normal ? Mid-Anterolateral ?? Normal ? Mid-Posterolateral ??Normal ? Mid-Inferior ?Normal ? Mid-Inferoseptal ?Normal ? Douglas-Septal ? Normal ? Douglas-Anterior ? Normal ? Douglas-Lateral ?Normal ? Douglas-Inferior ? Normal ? Douglas-Tip ?Normal ? This report has been electronically signed by: John Shukla MD ? 01/25/2020 15:24:42 Images reviewed and interpretation verified [facility] Procedure Note John Shukla MD - 01/25/2020 Procedure: Transthoracic Echocardiogram Patient: YVES SCHULTE(Age): 1950(69y) Med Rec#: [id number] Sex: M [place] [facility] [place]t / Wt: 167(cm)/53(kg) Pt. Loc: Echo Lab BSA: 1.59 Study Date: 01/25/2020 Pt. Type: Outpatient Tape: Referring: SWEETIE Reading: John Shukla ([id number]) Cleaner Housekeeping: Jamie Schilling Interpreting Fellow: Tobias Redd ([id number]) Diagnosis: *Essential (primary) hypertension (I10) Rhythm: Sinus BP: 137/86 SUMMARY: 1. The left ventricular chamber size is normal. Left ventricular wall thickness is normal. The quantitative left ventricular ejection fraction by biplane Howell's method is 71%. There are no left ventricular segmental wall motion abnormalities. 2. Right ventricular chamber size, wall thickness, and systolic function are within normal limits. The estimated pulmonary artery systolic pressure is 31 mmHg. The estimated right atrial pressure is 3 mmHg. 3. The right atrium appears normal. The left atrium is normal in size. 4. There is no hemodynamically significant valve disease. 5. See remainder of report for additional findings. 6. Compared to study from 03/21/2019, there is no significant change. Findings : Study Quality: Adequate Left Ventricle: The left ventricular chamber size is normal. Left ventricular wall thickness is normal. There is normal global left ventricular systolic function. The quantitative left ventricular ejection fraction by biplane Howell's method is 71%. There are no left ventricular segmental wall motion abnormalities. The left ventricular diastolic filling pattern is consistent with impaired LV relaxation. Doppler assessment is consistent with normal left sided filling pressure. Left Atrium: The left atrium is normal in size.24 ml/m2 The inter-atrial septum appears lipomatous. There is no evidence of a patent foramen ovale by color Doppler. Right Ventricle: Right ventricular chamber size, wall thickness, and systolic function are within normal limits. No pulmonary hypertension is noted. The estimated pulmonary artery systolic pressure is 31 mmHg. The estimated right atrial pressure is 3 mmHg. Right Atrium: The right atrium appears normal. Aortic Valve: The aortic valve is tricuspid. The aortic valve leaflets are mildly thickened. There is no evidence of aortic valve stenosis. There is no evidence of aortic regurgitation. Mitral Valve: The mitral valve appears normal in structure and function. There is trace mitral regurgitation present. Tricuspid Valve: The tricuspid valve appears normal in structure and function. There is mild (1+/4+) tricuspid regurgitation present. Pulmonic Valve: The pulmonic valve appears normal in structure and function. Pericardium: The pericardium appears normal and there is no evidence of a pericardial effusion. Aorta: The aortic root is normal in size. The ascending aorta is normal in size. Pulmonary Artery: The main pulmonary artery appears normal. Venous: The inferior vena cava appears normal in size. There is a greater than 50% respiratory change in the inferior vena cava dimension. Misc: There is no hemodynamically significant valve disease. Two-dimensional echo, spectral Doppler and color Doppler performed. Chambers 2D Value Units (Range) IVSd (2D) 0.78 cm LVPWd (2D) 0.67 cm IVS:LVPW ratio (2D) 1.16 ratio RWT (2D) 0.34 ratio RWT PW (2D) 0.32 ratio LVIDd (2D) 4.25 cm LVIDs (2D) 2.44 cm LVIDd (2D) index 2.68 cm/m2 LVIDs (2D) index 1.54 cm/m2 LV FS (2D) 42.52 % EF Teichholz (2D) 73.93 % Ao root diameter (2D2.99 cm (2.1 - 3.6) Ascending Ao 3.3 cm (2 - 3.5) Volumes/Mass Value Units (Range) LA ESV BP (A/L) inde24.04 ml/m2 LV ESV SP 4CH (MOD) 9.97 ml LV ESV SP 2CH (MOD) 21.86 ml LV EDV BP 51.56 ml LV ESV BP 14.78 ml LV EDV BP index 32.48 ml/m2 LV ESV BP index 9.31 ml/m2 BP EF (MOD) 71.33 % LV mass (2D) 90.96 g LV mass (2D) index 57.3 g/m2 Diastolic/Systolic Function Value Units (Range) MV E-wave Vmax 0.75 m/sec MV deceleration [id number] msec MV A-wave Vmax 0.79 m/sec MV E:A ratio 0.95 ratio LV septal e' Vmax 0.08 m/sec LV lateral e' Vmax 0.1 m/sec LV average e' Vmax 0.09 m/sec LV E:e' septal ratio9.33 ratio LV E:e' lateral rati7.47 ratio LV average E:e' rati8.3 ratio Tricuspid Valve Value Units (Range) TR Vmax 2.63 m/sec TR peak gradient 27.67 mmHg RAP 3 mmHg RVSP 31 mmHg Wall Motion: Segment Name Rest Base-Anteroseptal Normal Base-Anterior Normal Base-Anterolateral Normal Base-Posterolateral Normal Base-Inferior Normal Base-Inferoseptal Normal Mid-Anteroseptal Normal Mid-Anterior Normal Mid-Anterolateral Normal Mid-Posterolateral Normal Mid-Inferior Normal Mid-Inferoseptal Normal Douglas-Septal Normal Douglas-Anterior Normal Douglas-Lateral Normal Douglas-Inferior Normal Douglas-Tip Normal This report has been electronically signed by: John Shukla MD 01/25/2020 15:24:42 Images reviewed and interpretation verified [facility] Roseann Guzmán MD ECHO ORDERABLES documented in this encounter Visit Diagnoses Diagnosis Hypertension, unspecified type documented in this encounter Care Teams Contract Graphic Designer Relationship Specialty Start Date End Date Subhash Dowling MD [address] [address] PCP - General 06/03/10 documented as of this encounter
--- OUTSIDE RECORDS SUMMARY | 2024-08-15 01:36 | XMS_ITS | Encounter Summary ---
Author Organization [facility] Address [facility] [place] [address] Care Team Providers Care Community Midwife Name Role Phone Subhash Dowling MD Primary Care Provider [phone] Reason for Visit * Diagnostic Test (Routine) - Closed Specialty Diagnoses / Procedures Referred By Haroldo clark Referred To Contact Radiology Diagnoses Malignant neoplasm of urinary bladder, unspecified site Procedures CT Guided Biopsy Lymph Node (Chest/Abd/Pelvis) CT Guided Biopsy Retroperitoneal Mass Stephan Armstrong MD [facility] [place] [address] [facility] [place] [address] Referral ID Status Reason Start Date Expiration Date V isits Requested Visits Authorized [id number] Closed Specialty Service Requested 01/15/2020 07/17/2021 1 1 Encounter Details Date Type Department Care Team (Latest Contact Info) Description 01/31/2020 12:07 PM EDT - 01/31/2020 11:59 PM EDT [place] [address] Stephan Armstrong MD [facility] [place] [address] Malignant neoplasm of urinary bladder, [...] Sign Reading Time Taken Comments Blood Pressure 110/66 01/31/2020 3:30 PM EDT Pulse 72 01/31/2020 2:45 PM EDT Temperature 36.8 ??C (98.2 ??F) 01/31/2020 3:00 PM ED T Respiratory Rate 16 01/31/2020 3:30 PM EDT Oxygen Saturation 95% 01/31/2020 3:30 PM EDT Inhaled Oxygen Concentration - - Weight - - Height - - Body Mass Index - - documented in this encounter Discharge Instructions * Discharge Instructions* Jason Dalton RN - 01/31/2020 2:26 PM EDT [place] [facility] Inter[facility] Radiology Biopsy Discharge Instructions ??? Retroperitoneal biopsy: call your doctor immediately if you develop a sudden onset of weakness,increased pain or swelling at the biopsy site or heavy bleeding at the biopsy site. Activity And Diet: ??? Go home and rest quietly for the remainder of the day. You may resume your normal activities tomorrow. ??? Resume your usual diet after the procedure. ??? Do not drive, sign any important/legal documents, or make any important decisions for 24 hours following sedation medications. When to call your healthcare provider: ??? If you see any redness, swelling or drainage at the biopsy site. ??? If you develop chills. ??? If you have a fever greater than or equal to 101 degrees Fahrenheit. ??? If you develop pain around the biopsy site. Bandage: ??? Check the dressing/bandaid throughout the day for an increase in drainage. Keep the biopsy sitedry for 24 hours. Replace the bandaid as needed. You may shower 24 hours after the biopsy. Medication: ??? DO NOT take aspirin-containing products, ibuprofen, or blood-thinning medication for the next 24 hours unless your clinician says you may do so. ??? Generally you may use acetaminophen as needed for discomfort unless you have liver disease and are instructed not to take acetaminophen. Biopsy Results ??? The results of your biopsy should be available within 5 business days and will be reported to you by your primary managed care nurse or the clinician who ordered the biopsy. Please do not call us forresults as we will not have them. ??? If you have not been contacted by your clinician within 5 business days you should call that office for further information. When to call the Interventional Radiology Department: Please call with any questions or concerns. If it is during regular office hours, please call [phone]. If it is after regular office hours, or on weekends or holidays, please call [phone] and ask to speak to the [employer] database reporting consultant for Interventional Radiology. You have received medication during your procedure to help lessen anxiety and keep you comfortable.These medications affect judgement and reaction time. We recommend that you do not drive, operate equipment, sign any important documents, or smoke unattended for 24 hours following your procedure. Because of the sedation, be careful on stairs, as you may be unsteady on your feet. You may resume your regular diet as tolerated. IV site -- slight redness, or tenderness is normal, you can use a warm compress. If tenderness and redness increases or foul drainage occurs, please contact your M. D. Revised 04/27/19 documented in this encounter Medications at Time [...] Pain. 03/07/2020 documented as of this encounter Progress Notes * Dariela Giron RN - 01/31/2020 11:59 PM EDT Interventional and Vascular Radiology Post-Procedure Call Name: Wally Marinelli Age: 69 y.o. Sex; Male Date of : 1950 (home) Telephone Information: PCP Subhash Dowling MD [phone] Date/Time of call: February 01, 2020/9:48 AM Procedure: Retroperitoneal mass biopsy Procedural Provider: Gokul Contact with patient or if not, with whom?Wally Provider notified via phone or email if unable to contact pt: No Are you having pain related to your procedure now? No Are you having any swelling or bleeding from the site? No Are there any improvement in your symptoms? Yes Are you having any other problems related to your procedure? Comments: No Did you understand the discharge instructions given and do you have any questions? Comments: Yes Do you have any comments about your Nurse or Provider or the care you received? Nurse Comments: No * Jason Dalton RN - 01/31/2020 2:24 PM EDT To procedure room CT1 via stretcher. Onto table supine All monitors, O2, safety strap in place. Med's per protocol. * Jason Dalton RN - 01/26/2020 3:15 PM EDT [facility] Name: WALLY MARINELLI Date of : 1950 AGE: 69 y.o. Address: [address] [address] (home) Mobile: Telephone Information: Referring Provider: Stephan Armstrong REASON FOR VISIT: Order Questions Answers Where will study be performed? [facility] Radiology [120] Laterality Left Is the patient on anticoagulant / anitplatelet therapy ? Aspirin Does the patient have any pertinent outside imaging? No Reason for exam and clinical history: Left paraaortic adenopathy, hot on PET sp dd MVAC chemo for bladder cancer ? metastatic disease. Attn Arthur Forauer Allergies Allergen Reactions ??? Wellbutrin [Bupropion Hcl] [...] cancer C67.9 ??? Tobacco use disorder F17.200 ?? Date/Procedure Meds given/comments 11/27/19 Single lumen Mediport placement Ancef 2 g IV Fentanyl 100 mcg IV Versed 2 mg IV?? 01/31/20 Left Retroperitoneal Biopsy Fentanyl 150 mcg IV, Versed 3 mg IV ? Laboratory Results: Lab Results Component Value Date CREATININE 0.98 01/15/2020 Lab Results Component Value Date K 4.5 01/15/2020 Lab Results Component Value Date PLATELET 210 01/15/2020 documented in this encounter H&P Notes * Subhash Hodgson MD - 01/31/2020 1:25 PM EDT INTERVENTIONAL RADIOLOGY FOCUSED H&P: Procedure: LEFt RP node biopsy The patient's history and physical exam have been reviewed and completed. There has been no interval change from that of the pre-operative history and physical exam done within the last 30 days. Physical Exam: Cardiovascular: Regular, Normal Pulmonary: Breath sounds clear to auscultation Abdomen: NTND The planned procedure (and sedation plan if appropriate) , its benefits and risks, and alternativeswere discussed with the patient. The patient consented to the procedure. PRE-SEDATION ASSESSMENT: Sedation Plan: moderate (conscious sedation) ASA: 2: Patient with mild systemic disease Mallampati: II: tonsillar pillars are blocked by the tongue Confirm NPO status: Yes History of anesthetic complications: No Current medications reviewed: Yes Allergies reviewed: Yes documented in this encounter Miscellaneous Notes * Brief Op Note - Mina Lemon MD - 01/31/2020 3:05 PM EDT INTERVENTIONAL RADIOLOGY BRIEF PROCEDURE NOTE Patient Name: Wally Marinelli : 1950 Case Date: 01/31/2020 Operators: Attending: Subhash Hodgson MD Fellow: Mina Lemon MD Post-operative diagnosis/Indication: Malignant neoplasm of urinary bladder, unspecified site Name of Procedure Performed: CT guided retroperitoneal lymph node biopsy Description of the procedure: CT guided biopsy of Left para-aortic lymph node Findings of the procedure: -Known para-aortic lymphadenopathy -Biopsy samples sent for pathology -Small perilesional hematoma EBL: <10 mL Specimens: Samples sent for pathology Complications: No immediate Plan/Disposition: Patient to IR recovery, OK to discharge when meets criteria FULL PROCEDURE NOTE TO FOLLOW IN IMAGE REPORT documented in this encounter Plan of Treatment Upcoming Encounters Date Type Department Care Team (Late st Contact Info) Description 08/15/2024 11:30 AM EST Office Visit Hematology/Oncology at [address] [address] Chanelle Kim APRN [facility] [place] [address] Bee Curry APRN [facility] [place] [address] documented as of this encounter Procedures Procedure Name Priority Date/Time Associated Diagnosis Comments CT GUIDED BIOPSY LYMPH NODE(CHEST/ABD/PELV IS) Routine 01/31/2020 3:01 PM EDT Malignant neoplasm of urinary bladder, unspecified site SURGICAL PATHOLOGY REPORT Routine 01/31/2020 1:29 PM EDT SPECIMEN TO PATHOLOGY Routine 01/31/2020 1:29 PM EDT documented in this encounter Results * CT Guided Biopsy Lymph Node (Chest/Abd/Pelvis) (01/31/2020 3:01 PM EDT) Anatomical Region Laterality Modality Computed Tomogra phy Impressions 01/31/2020 4:[address]-guided biopsy of left retroperitoneal lymph node. Plan: Specimen(s) sent for evaluation. PROCEDURE SUMMARY: - Percutaneous CT-guided left retroperitoneal lymph node biopsy - Additional procedure(s): None PROCEDURE DETAILS: Pre-procedure Reference imaging for biopsy target: PET/CT 01/15/2020, series 4, image 151 Consent: Informed consent for the procedure including risks, benefits and alternatives was obtained and time-out was performed prior to the procedure. Preparation: The site was prepared and draped using maximal sterile barrier technique including cutaneous antisepsis. Anesthesia/sedation Level of anesthesia/sedation: Moderate sedation (conscious sedation) Anesthesia/sedation administered by: Independent trained observer under attending supervision with continuous monitoring of the patients level of consciousness and physiologic status Total intra-service sedation time (minutes): See electronic medical record for sedation time Imaging prior to biopsy The patient was positioned prone. Initial imaging was performed using noncontrast CT. Biopsy target: - Maximal diameter (cm): 1.8 - Location: Left para-aortic lymph node (series 2 image 52) Other findings: None Biopsy Local anesthesia was administered. Under CT guidance, the biopsy needle was advanced to the target and biopsy was performed. Coaxial needle: 19 gauge Core needle biopsy device: [employer] Core needle size: 20 gauge Number of core specimens: 6 Needle removal The biopsy needle was removed and a sterile dressing was applied. Tract embolization: None Imaging following biopsy Immediate post-biopsy imaging was performed using noncontrast CT. Post-biopsy imaging findings: Small perilesional retroperitoneal hematoma. Contrast Contrast agent: None Contrast volume (mL): [address] dose length product (mGy-cm): 910 Additional Details Additional description of procedure: None Equipment details: None Specimens removed: Biopsy samples as detailed above Estimated blood loss (mL): Less than 10 Standardized report: [id number] Attestation Signer name: Subhash Hodgson I attest that I was present for the entire procedure. I reviewed the stored images and agree with the report as written. Sedation attestation: I was present during the intra-service time as documented by IR nurse. I have personally reviewed the image(s) and the resident's interpretation and agree with the findings, Subhash Hodgson at 01/31/2020 4:45 PM Thank you for letting us participate in the care of this patient. For questions regarding this report, please contact the number below. ? Electronically signed by: Subhash Hodgson [facility] ([phone]), at 01/31/2020 4:45 PM Narrative 01/31/2020 4:45 PM EDT PROCEDURE: CT-guided biopsy Procedural Personnel Attending physician(s): Subhash Hodgson MD Fellow physician(s): Mina Lemon MD Resident physician(s): None Advanced practice provider(s): None Pre-procedure diagnosis: Retroperitoneal lymphadenopathy Post-procedure diagnosis: Same Indication: 69-year-old male with bladder cancer in early 2018, now with FDG avid left para-aortic lymph nodes Previous biopsy of same target (QCDR): No Additional clinical history: None Complications: Small perilesional retroperitoneal hematoma. Stephan Armstrong MD IM CT ORDERABLES * Surgical Pathology Report (01/31/2020 1:29 PM EDT) Final Diagnosis [id number] ? Location: [facility] The signing pathologist has (i) examined the relevant preparation(s) for the specimen(s) and (ii) rendered or confirmed the diagnosis(es). . ?Surgical Pathology DIAGNOSIS A - Lymph node, retroperitoneal (CT guided biopsy): ? Benign lymph node, see discussion Electronically signed by: ??Karlie LION, Jace Verified: ??02/08/2020 ?Hematopathologist Performed at: ??-[facility] [place] Dept. [place]ology, [place], [place] DISCUSSION Histological sections of retroperitoneal lymph node show partially preserved architecture with primary follicles and interfollicular T cell enriched areas and rare germinal centers. ?? Immunoperoxidase stains performed with appropriate controls on block A1 include CD3, CD5, CD10, CD20, CD21, BCL2, BCl6, cyclin D1, CKAE1/3 and Ki-67. ??The primary follicle B-lymphocytes are positive for CD20+,and normal positive for BCL2. Rare germinal centers are highlighted by BCl6 and these lymphocytes are negative for Bcl2. cyclin D1 is negative. ??CD3, CD5 highlights interfollicular T- cells and CD21 follicular dendritic cell meshworks. CKAE1/3 is negative and Ki-67 proliferative index is low. The overall findings are consistent with benign lymph node; negative for lymphoma or carcinoma ADDITIONAL STUDIES Case reviewed with Dr Jerzy Abbott . SPECIMEN(S) SUBMITTED A - Retroperitoneal lymph node, biopsy CLINICAL INFORMATION 69-year-old male patient diagnosed with bladder CA in early 2018, subsequently treated with TURBT (path = invasive disease) and MVAC chemotherapy. His most recent PET/CT (01/15/2020) scan showed: 1. Marked interval decrease in size of the left bladder mass with urine activity limiting the assessment of residual active bladder malignancy. 2. Multiple new and enlarging FDG avid lymph nodes in the left abdominal region, consistent with active nathaly metastases. CT-guided biopsies requested to determine histology of the lymph nodes and directed future therapy. SPECIMEN PROCESSING A - Labeled/Fixative: Retroperitoneal lymph node, formalin. Quantity/Size: Multiple Ranging from 0.6 x 0.1 cm to 0.8 x 0.1 cm. Tissue Description: Yellow-beyer needle core biopsies. Sections/Processing : Entirely submitted in 1 cassette labeled A1. ??sns 02/08/2020 3:28 PM EDT [facility] LYMPH NODE SPECIMEN / Unknown 01/31/2020 1:29 PM EDT 01/31/2020 1:29 PM EDT Stephan Armstrong MD PATHOLOGY/CYTOLOGY O [facility] Performing Organization Address [facility] Co de Phone Number [facility] [place] [address] * Specimen to Pathology (01/31/2020 1:29 PM EDT) AP Specimen 01/31/2020 1:29 PM EDT 01/31/2020 1:29 PM EDT Narrative [facility] - 01/31/2020 1:29 PM EDT Specimen requisition ordered. ??Separate Pathology report to follow Stephan Armstrong MD PATHOLOGY/CYTOLOGY O [place] Performing Organization Address [facility] Co de Phone Number [facility] [place] [address] documented in this encounter Visit Diagnoses Diagnosis Malignant neoplasm of urinary bladder, unspecified site documented in this encounter Administered Medications Inactive Administered Medications - up to 3 most recent administrations Medication Order MAR Action Action Date Dose Rate Site fentaNYL 50 mcg/mL multi-dose injection 25-50 mcg, Intravenous, EVERY 3 MIN PRN, Starting on Wed01/31/20 at 1309, Until Bety 02/01/20 at 0434, Pain, per unit protocol, - Start dose [...] and verbal order., Angio/IR (Intra-Procedure), Routine Given 01/31/2020 2:34 PM EDT 50 mcg Given 01/31/2020 2:21 PM EDT 50 mcg Given 01/31/2020 2:08 PM EDT 50 mcg lidocaine (XYLOCAINE) 10 mg/mL (1 %) injection 10 mg 10 mg, Subcutaneous, ONCE, 1 dose, On Wed01/31/20 at 1330, For use in Interventional Radiology (IR) only for procedure with direct provider supervision and verbal order., Angio/IR (Intra-Procedure), Routine Given 01/31/2020 2:30 PM EDT 10 mg midazolam (PF) (VERSED) multi-dose injection 0.5-1 mg 0.5-1 mg, Intravenous, EVERY 3 MIN PRN, Starting on Wed01/31/20 at 1309, Until Bety 02/01/20 at 0434, Sleep, - Start dose; 1 mg (Reduce [...] and verbal order., Angio/IR (Intra-Procedure), Routine Given 01/31/2020 2:35 PM EDT 1 mg Given 01/31/2020 2:21 PM EDT 1 mg Given 01/31/2020 2:08 PM EDT 1 mg sodium chloride 0.9% infusion 1,000 mL, at 100 mL/hr, Intravenous, CONTINUOUS, Starting on Wed01/31/20 at 1330, Until Bety 02/01/20 at 0434, Angio/IR (Day of Procedure) New Bag 01/31/2020 1:30 PM EDT 1,000 mLs 100 mL/hr documented in this encounter Care Teams Community Midwife Relationship Specialty Start Date End Date Subhash Dowling MD [address] [place] [id number] PCP - General 06/03/10 documented as of this encounter
--- OUTSIDE RECORDS SUMMARY | 2024-08-15 01:36 | XMS_ITS | Encounter Summary ---
[place] [address] Care Team Providers Care Medical Records Library Professor Name Role Phone Subhash Dowling MD Primary Care Provider [phone] Reason for Visit * Reason Onset Date Comments Results 02/11/2020 covid test call back Encounter Details Date Type Department Care Team (Late Contact Info) Description 02/11/2020 [place] [phone] Nadia Dumont RN Results (covid test call back) Social History Tobacco Use Types Packs/Day Years [...] Miscellaneous Notes * Telephone Encounter - Nadia Dumont RN - 02/11/2020 10:05 AM EDT Telephone call to pt to inform pt of NEGATIVE Covid-19 test results. Pt verbalizes understanding and will contact healthcare provider if any concerns or requires further care. documented in this encounter Plan of Treatment Upcoming Encounters Date Type Department Care Team (Late Contact Info) Description 08/15/2024 11:30 AM EST Office Visit Hematology/Oncology at [address] [phone] Chanelle Kim, [facility] [place] [address] Bee Curry, [facility] [place] [address] documented as of this encounter Visit Diagnoses Not on filedocumented in this encounter Care Teams Medical Records Library Professor Relationship Specialty Start Date End Date Subhash Dowling MD [address] [place] [id number] PCP - General 06/03/10 documented as of this encounter
--- OUTSIDE RECORDS SUMMARY | 2024-08-15 01:36 | XMS_ITS | Encounter Summary ---
[place] [address] Care Team Providers Care Warp Spooler Name Role Phone Subhash Dowling MD Primary Care Provider [phone] Reason for Visit * Auth/Cert Specialty Diagnoses / Procedures Referred By Contac t Referred To Contact Diagnoses Bladder cancer Bladder Cancer . Procedures PRO CYSTECTOMY, ILEAL CONDUIT/SIGMOID BLADDER @CYSTECTOMY, COMPLETE, WITH ILEAL CONDUIT (WRVU 36.33) Referral ID Status Reason Start Date Expiration Date Visits Re quested Visits Authorized [id number] 1 1 Encounter Details Date Type Department Care Team (Late st Contact Info) Description 02/13/2020 8:57 AM EDT Anesthesia Event [place] [address] Berta Quintero MD [facility] [place] [address] Ori Bashir MD Anesthesia Record Procedure Summary Procedure Name Responsible Anesthesiologist Anesthesia Start Time Anesthesia Stop Time @CYSTECTOMY, COMPLETE, WITH ILEAL CONDUIT (WRVU 36.33) (Bladder) Berta Quintero MD 02/13/20 0857 02/13/20 1749 Events Date Time Event Comment 02/13/2020 0704 0857 AN Verify 0857 Start 0857 An Start Data 0907 An Induction 0909 An Intubation 0921 Anesthesia Ready 0942 Procedure Start 1703 an marichuy now SUGAMMADEX Para lysis needed until case end 1734 Extubation/LMA Out 1737 an stop data 174 Recovery or ICU Handoff Yamileth ent care was transferred to the destination unit staff after review of the patient's medical history, current anesthetic/surgical status and plan, according to the Provider Handoff Checklist. 1748 Stop Meds Name Total fentaNYL 100 mcg IV Lidocaine 100 mg Propofol 120 mg Rocuronium 160 mg PHENYLephrine 1,120 mcg Dexamethasone 4 mg metroNIDAZOLE (FLAGYL) 500 mg in sodium chloride 0.9% 100 mL 500 mg cefTRIAXone (ROCEPHIN) 2 g v ial attach to sodium chloride 0.9% 50 mL Mini-Bag Plus 2 g HYDROmorphone (Dilaudid) 10 mcg/mL, BUpivacaine (Marcaine) 0.1% (0.1 mg/mL) (1/10%) in sodium chloride 0.9% 250 mL epidural 49.4 mL Esmolol 10 mg meTOPROLOL (LOPRESSOR) injection 5 mg Magnesium Sulfate 2 g PHENYLephrine INF 1,120 mcg Sugammadex 200 mg lactated ringers infusion 3,800 mL Lactated Ringers 3,000 mL Sodium Chloride 0.9% 0 mL * Agents Name O2 Air N2O Sevoflurane (et) * Blood No blood administrations on file. Lines, Drains, and Airways Type Details Placement Removal (RETIRED) Implanted Port - Single Lumen (non-apheresis) 11/27/19; 0751; infraclavicular fossa, right; power injectable port; superior vena cava; NAHID Perea and Dr. Lima in IR ; LOT # [id number] 11/27/19 0751 by Dyana Craft RN Urostomy 02/13/20; 1529; RUQ; ileal conduit; 44 MM ; RED STENT IN RIGHT URETER BLUE STENT IN LEFT URETER 02/13/20 152 by Galina Sullivan RN ETT Mask Ventilation: Difficult (3); ETT Type: Cuffed, Oral; ETT Size: 8 mm; Mac Blade: 3; Notes: Asleep, Pre-O2, Cricoid Pressure, Stylette; Attempts: 1; Laryngoscopy Grade: 2; ETT Placement Verified By: Capnometry, Visual; Secured at Teeth: 23 cm; Inserted by: mara; Removal Date: 02/13/20; Removal Time: 173602/13/2043 by 02/13/207 by Ori Bashir MD Incision 11/27/19; 0749; neck ; non-laparascopic puncture (Venous access from mediport placement); 03/09/22 (LDA cleanup utility RA#[id number]); 1715 (LDA cleanup utility RA#[id number]) 11/27/19 0749 by Dyana Craft RN 03/09/22 1715 by Kendra Newman Incision 11/27/19; 0750; ches t; horizontal (from [...] Dalton RN 03/09/22 1715 by Kendra Newman Epidural 02/13/20; 0836; thor acic; T9, KULDIP at 4.75cm, 15+cm at skin.; Dr. Bhatia / Dr. Goel; analgesia, continuous infusion; no longer indicated, removed per policy; No complications; 02/19/20; 1519 02/13/20 0836 by Checo Chicas RN 02/19/20 1519 by Maria Fernanda Villalta RN ETT Removal Date: ; Removal Time: 17302/13/20 0914 by Ori Bashir MD 02/13/20 173 by Ori Bashir MD (RETIRED) Peripheral IV Line - Single Lumen 02/13/20; 928; median cubital vein (antecubital fossa), right; 18 gauge; 02/18/20; 1000 02/13/20 0929 by Ori Bashir MD 02/18/20 1000 by Elsy Haynes RN Urethral Catheter 02/13/20; 0942; Urol ogic surgery; ; 22; inserted at this facility; 5; 10; 10; none; drainage bag to dependent drainage; urethral catheter removed, tubing intact; CATHETER TO BE REMOVED WITH BLADDER; 02/13/20; 1310 02/13/20 0942 by Galina Sullivan RN 02/13/20 1310 by Galina Sullivan RN Incision 02/13/20; 0942; abdo men; midline; CYSTECTOMY ILEAL CONDUIT; 03/09/22 (LDA cleanup utility RA#[id number]); 1715 (LDA cleanup utility RA#[id number]) 02/13/20 0942 by Galina Sullivan RN 03/09/22 1715 by Kendra Newman Drain/Device Site 02/13/20; 1530; Left ; abdomen; collapsible closed device; Sterile prep and drape; 19 WING DRAIN STITCHED IN AND COVERED WITH DRAIN SPONGE; removed by MD Alexis at bedside; 02/25/20; 0904 02/13/20 1530 by Galina Sullivan RN 02/25/20 0904 by Soniya Moss RN Arterial Line 02/13/20; 1810; radi al artery, right; 02/13/20 (not present upon assessment ); 2156 02/13/20 1810 by Patricia Otero RN 02/13/20 2156 by Tiny Epperson RN documented in this encounter Social History Tobacco [...] OR Notes * Anesthesia Postprocedure Evaluation - Ori Bashir MD - 02/13/2020 5:53 PM EDT Department of Anesthesiology Post-procedure Note Patient: Gt Aguilar Procedure Summary Date: 02/13/20 Room / Location: [address] MAIN OR Anesthesia Start: 856 Anesthesia Stop: 1748 Procedures: @CYSTECTOMY, COMPLETE, WITH ILEAL CONDUIT (WRVU 36.33) (N/A Bladder) @LYMPHADENECTOMY, PELVIC, INCLUDING MULTIPLE NODES-FELA (WRVU 14.06) (Bilateral Pelvis) LIVER BIOPSY (N/A Trunk) Diagnosis: Malignant neoplasm of urinary bladder, unspecified site (Bladder Cancer) Surgeon: Stephan Armstrong MD Responsible Provider: Berta Quintero MD Anesthesia Type: general ASA Status: 3 All Anesthesia Providers: Anesthesiologist: Berta Quintero MD Demand Planning Analyst: Ori Bashri MD Vitals Value Taken Time BP 99/68 02/13/20 1745 Temp Pulse 102 02/13/20 1751 Resp 17 02/13/20 1751 SpO2 100 % 02/13/20 1751 Pain Level Vitals shown include unvalidated device data. [facility] Level of Consciousness: Conscious but Sleepy Pain Management: Pain Being Addressed PONV: None Cardiovascular Status: At Baseline Respiratory Status: Supplemental O2 (NC or FM) and Stable Respiratory Status Postoperative Fluid Status: Intravascular EUvolemia Possible Anesthetic Complications: NONE apparent at time of evaluation Final Primary Anesthesia Type: General (The anesthetic type performed was the same as planned.) Comments: * Anesthesia Procedure Notes - Sarbjit Goel MD - 02/13/2020 9:03 AM EDT Associated Order(s): Neuraxial Block Procedure: Neuraxial Block Post-op Pain Control Type: Epidural The patient was greeted. The sedation plan, its benefits, risks and alternatives were discussed with the patient. The patient has consented to the procedure. The medical history and chart were reviewed. The timeout was performed. Start time: 02/13/2020 8:24 AM End time: 02/13/2020 8:50 AM Patient Location: Other - add comment (OR19) Baseline Information (AYL-ktjf-tsfuirjj entry for database use): On opioids (any route) for 4 weeks or more: No Anxiety: No Depression: No COPD: Yes HTN: Yes Patient Prep Position: Prone Prep: Hand Hygiene, Hat, Mask, Sterile Gloves, Gown, Chlorhexidine and Patient Draped Injection technique: continuous Skin Anesthetic Lidocaine 1% 5 ml Procedure Technique Level of needle insertion: T12-L1 Needle approach: paramedian Needle Type: Tuohy Gauge: 17 Needle length: 3.5 in Needle insertion depth when KULDIP achieved: 4.8 cm Technique for Loss of Resistance: KULDIP saline A 19 guage epidural catheter introduced into the epidural space. Catheter at skin depth: 15 cm Dressing/Secured with: Chlorhexidine Tegaderm, Tegaderm and Tape Number of attempts: 1 Events/Notes Imaging: fluoroscopy guided Level of Epidural Tip via Fluoroscopy: T8-9 Iohexol 240 mgI/mL, 2 mL Events: None Resident/KNIFE EDGER: Second Resident/KNIFE EDGER: Fellow: Attending Physician: Stephan Bhatia MD ~~~~~~~~~~~~~~~~~~~~~~~~~~~~~~~~~~~~~~~~~~~~~~~~~~~~~~~~~~~~ * Anesthesia Preprocedure Evaluation - Ori Bashir MD - 02/12/2020 1:56 PM EDT Pre-Anesthesia Evaluation for: Gt Aguilar a 69 y.o. male. Procedure(s): @CYSTECTOMY, COMPLETE, WITH ILEAL CONDUIT (WRVU 36.33) Patient Active Problem List Diagnosis ??? Tobacco use disorder ??? Bladder cancer [...] [place]oteo[place] he woke up during the procedure [...] CT Guided Biopsy Lymph Node (Chest/Abd/Pelvis) 01/31/2020 [facility] RAD CAT SCAN ??? HIP FRACTURE SURGERY Right 1991 ??? INGUINAL HERNIA REPAIR Right ??? IR MEDIPORT PLACEMENT/EXCHANGE 11/27/2019 IR Mediport Placement 11/27/2019 Jason Lujan, NAHID [facility] INTERVENTIONL RAD Social History Tobacco Use ??? Smoking status: Current Every Day Smoker Packs/day: 2.00 Years: 50.00 Pack years: 100.00 ??? Smokeless tobacco: Never Used Substance Use Topics ??? Alcohol use: Yes Alcohol/week: 14.0 standard drinks Types: 14 Standard drinks or equivalent per week Comment: 2 Social History Substance and Sexual Activity Drug Use Not on file Allergies Allergen Reactions ??? Wellbutrin [Bupropion Hcl] Other (See Comments) Unknown on pt's chart from outside facility Medications: MAR and/or home medications have been reviewed. Physical Exam: No data found. There is no height or weight on file to calculate BMI. Airway Assessment: Mallampati: III TM distance: >3 FB Neck ROM: full Cardiovascular Assessment: Pulmonary Assessment: Dental Assessment: (+) edentulous Misc Assessment: Other exam findings: Full weaver Anesthesia Plan: ASA 3 general, with a(n) intravenous induction 69yo M current 1/2 pack daily smoker (110 packyrs) BMI 20 PMH COPD (albuterol and combivent), HTN (metoprolol, atenolol), etoh use (14 drinks/week), bladder cancer with mediport (on cisplatin and gemcitabine) presents for planned open cystectomy with ileal conduit. Patient was seen in [facility] by Dr. Arndt on 01/15/20. Limited health literacy In PAT, Patient reports being able to do housework, walk up 2 flights without SoB Uses combivent 2-3 times/day depending on COPD symptoms PAT provided an incentive spirometer to be used preoperatively TTE on 01/25/20 Normal LV/RV, EF 71, Normal LA, no valvulopathies No anesthesia records available Drain placement under MAC in 2019 at [facility] Patient reported delayed emergence with surgery in 1990. Plan: GA w/ETT Standard ASA monitors with arterial line PIVx2 and Mediport Preoperative tylenol and duoneb?? DOS Addendum: Pt appropriately NPO but endorsing weeks of nausea/vomiting. Vomited x1 on arrival to sameday. Has not reported this to his care team, and has undergone no w/u or intervention. Appears frail, and increased work of breathing. Given complicated social situation and non-elective natureof his surgery, will proceed as planned barring significant lab abnormalities. Zofran, fluid bolus,duoneb, CBC BMP Ca Mg Phos ordered. 0900: Labs WNL, patient reports improvement with 1L IVF and 8mg Zofran, appropriate for surgery andepidural. Region - Other Informed Consent: Anesthetic plan and risks discussed with patient. Plan discussed with resident and attending. [facility] Clinic Note documented in this encounter Plan of Treatment Upcoming Encounters Date Type Department Care Team (Late st Contact Info) Description 08/15/2024 11:30 AM EST Office Visit Hematology/Oncology at [address] [phone] Chanelle Kim [facility] [place] [address] Bee Curry [facility] [place] [address] documented as of this encounter Procedures Procedure Name Priority Date/Time Associated Diagnosis Comments ANE NEURAXIAL APS USE Routine 02/13/2020 9:03 AM EDT documented in this encounter Results * Neuraxial Block (02/13/2020 9:03 AM EDT) Narrative Dariela Fitch MD - 02/13/2020 9:03 AM EDT Sarbjit Goel MD ? 02/13/2020 ??9:07 AM Procedure: ?? Neuraxial Block Post-op Pain Control Type: Epidural The patient was greeted. The sedation plan, its benefits, risks and alternatives were discussed with the patient. ??The patient has consented to the procedure. ??The medical history and chart were reviewed. ??The timeout was performed. Start time: 02/13/2020 8:24 AM End time: 02/13/2020 8:50 AM Patient Location: Other - add comment (OR19) Baseline Information (WIG-exkg-jmdrbnpt entry for database use): On opioids (any route) for 4 weeks or more: ??No Anxiety: ??No Depression: ??No COPD: ??Yes HTN: ??Yes Patient Prep Position: Prone Prep: Hand Hygiene, Hat, Mask, Sterile Gloves, Gown, Chlorhexidine and Patient Draped Injection technique: continuous Skin Anesthetic Lidocaine 1% ??5 ml Procedure Technique Level of needle insertion: T12-L1 Needle approach: paramedian Needle Type: Tuohy Gauge: 17 Needle length: 3.5 in Needle insertion depth when KULDIP achieved: 4.8 cm Technique for Loss of Resistance: KULDIP saline A 19 guage epidural catheter introduced into the epidural space. Catheter at skin depth: 15 cm Dressing/Secured with: Chlorhexidine Tegaderm, Tegaderm and Tape Number of attempts: 1 Events/Notes Imaging: ??fluoroscopy guided Level of Epidural Tip via Fluoroscopy: T8-9 Iohexol 240 mgI/mL, 2 mL Events: ??None Resident/KNIFE EDGER: ? Second Resident/KNIFE EDGER: Fellow: ? Attending Physician: ? Stephan Bhatia MD ~~~~~~~~~~~~~~~~~~~~~~~~~~~~~~~~~~~~~~~~~~~~~~~~~~~~~~~~~~~~ Stephan Bhatia MD [employer] [facility] documented in this encounter Visit Diagnoses Not on filedocumented in this encounter Administered Medications Inactive Administered Medications - up to 3 most recent administrations Medication Order MAR Action Action Date Dose Rate Site cefTRIAXone (ROCEPHIN) 2 g vial attach to sodium chloride 0.9% 50 mL Mini-Bag Plus 2 g, Intravenous, EVERY 24 HOURS, First dose on Wed02/13/20 at 0700, Until Discontinued, Administer over 30 Minutes, Day of Surgery (Day of Procedure), Indication for (Active or Suspected): Prophylaxis New Bag 02/13/2020 9:28 AM EDT 2 g dexamethasone (Decadron) injection PRN, Starting on Wed02/13/20 at 1132, Until Wed02/13/20 at 1749, Anesthesia Intra-op, Routine Given 02/13/2020 11:32 AM EDT 4 mg esmoloL (BREVIBLOC) injection PRN, Starting on Wed02/13/20 at 1000, Until Wed02/13/20 at 1749, Anesthesia Intra-op, Routine Given 02/13/2020 10:00 AM EDT 10 mg fentaNYL 50 mcg/mL multi-dose injection PRN, Starting on Wed02/13/20 at 0940, Until Wed02/13/20 at 1749, Anesthesia Intra-op, Routine Given 02/13/2020 9:40 AM EDT 100 mcg HYDROmorphone (Dilaudid) 10 mcg/mL, BUpivacaine (Marcaine) 0.1% [...] 6:27 AM EDT 4 mL/hr 4 mL/hr lactated ringers infusion 1,000 mL, at 100 mL/hr, Intravenous, CONTINUOUS, Starting on Wed02/13/20 at 0700, Until Wed02/13/20 at 2106, Day of Surgery (Day of Procedure) New Bag 02/13/2020 1:29 PM EDT New Bag 02/13/2020 12:01 PM EDT New Bag 02/13/2020 8:55 AM EDT lactated ringers infusion CONTINUOUS PRN, Starting on Wed02/13/20 at 0917, Until Wed02/13/20 at 1749, Anesthesia Intra-op New Bag 02/13/2020 2:24 PM ED T New Bag 02/13/2020 12:01 PM EDT New Bag 02/13/2020 9:17 AM EDT lidocaine (PF) (XYLOCAINE) 100 mg/5 mL (2 %) injection PRN, Starting on Wed02/13/20 at 0907, Until Wed02/13/20 at 1749, Anesthesia Intra-op, Routine Given 02/13/2020 9:07 AM EDT 100 mg magnesium sulfate 4 mEq/mL (50 %) injection PRN, Starting on Wed02/13/20 at 1201, Until Wed02/13/20 at 1749, Anesthesia Intra-op, Routine Given 02/13/2020 12:01 PM EDT 2 g metoprolol (LOPRESSOR) injection PRN, Starting on Wed02/13/20 at 1030, Until Wed02/13/20 at 1749, Anesthesia Intra-op, Routine Given 02/13/2020 1:30 PM EDT 1 mg Given 02/13/2020 11:53 AM EDT 2 mg Given 02/13/2020 10:58 AM EDT 1 mg metroNIDAZOLE (FLAGYL) 500 mg in sodium chloride 0.9% 100 mL 500 mg, Intravenous, EVERY 8 HOURS, First dose on Wed02/13/20 at 0700, Until Discontinued, Administer over 30 Minutes, Day of Surgery (Day of Procedure), Indication for (Active or Suspected): Prophylaxis Given 02/13/2020 9:21 AM EDT 500 mg PHENYLephrine (HALINA-SYNEPHRINE) 20 mg in sodium chloride 250 mL (standard ADULT & Pedi greater than 20kg) infusion CONTINUOUS PRN, Starting on Wed02/13/20 at 1246, Until Wed02/13/20 at 1749, Anesthesia Intra-op, Routine Restarted 02/13/2020 4:31 PM EDT 20 mcg/min 15 mL/hr Rate/Dose Change 02/13/2020 12:54 PM EDT 10 mcg/min 7.5 mL /hr New Bag 02/13/2020 12:46 PM EDT 20 mcg/min 15 mL/hr PHENYLephrine in NS (PF) (HALINA-SYNEPHRINE) 0.8 mg/10 mL (80 mcg/mL) multi-dose injection Syrg PRN, Starting on Wed02/13/20 at 0914, Until Wed02/13/20 at 1749, Anesthesia Intra-op, Routine Given 02/13/2020 12:39 PM EDT 320 mcg Given 02/13/2020 12:34 PM EDT 160 mcg Given 02/13/2020 12:31 PM EDT 160 mcg propofol (DIPRIVAN) 10 mg/mL bolus injection (Anesthesia) PRN, Starting on Wed02/13/20 at 0907, Until Wed02/13/20 at 1749, Anesthesia Intra-op Given 02/13/2020 9:07 AM EDT 120 mg rocuronium (ZEMURON) multi-dose injection PRN, Starting on Wed02/13/20 at 0907, Until Wed02/13/20 at 1749, Anesthesia Intra-op, Routine Given 02/13/2020 4:04 PM EDT 10 mg Given 02/13/2020 3:39 PM EDT 10 mg Given 02/13/2020 2:32 PM EDT 20 mg sodium chloride 0.9% infusion CONTINUOUS PRN, Starting on Wed02/13/20 at 1649, Until Wed02/13/20 at 1749, Anesthesia Intra-op New Bag 02/13/2020 4:49 PM EDT sugammadex (BRIDION) 100 mg/mL injection PRN, Starting on Wed02/13/20 at 1702, Until Wed02/13/20 at 1749, Anesthesia Intra-op, Routine Given 02/13/2020 5:02 PM EDT 200 mg documented in this encounter Care Teams Warp Spooler Relationship Specialty Start Date End Date Subhash Dowling MD [address] [place] [id number] PCP - General 06/03/10 documented as of this encounter
--- OUTSIDE RECORDS SUMMARY | 2024-08-15 01:36 | XMS_ITS | Encounter Summary ---
Author Organization [facility] [place] [address] Care Team Providers Care Exhibition Carver Name Role Phone Subhash Dowling MD Primary Care Provider [phone] Reason for Visit * Reason Onset Date Comments Other 01/29/2020 care coordinatio n Encounter Details Date Type Department Care Team (Late st Contact Info) Description 01/29/2020 Telephone Hematology/Oncology at [address] [phone] Nadia Mueller MSW OFFICE OF CARE MANAGEMENT Other (care coordination) Social History Tobacco Use Types Packs/Day Years [...] Telephone Encounter - Nadia Mueller MSW - 01/29/2020 3:32 PM EDT TC from pt's friend Derek with pt. Derek indicated pt needs to be at [facility] on 01-31-20 earlier than previously expected for a bone scan before his biopsy. He needs to arrive at [facility] at 9 am. TC [facility] and they confirmed they have the correct arrival time. Derek indicated pt's received a call that his surgery date has change. [employer] sent message to Kalyani Burgos RN Nurse Navigator to confirm the change in plans and confirm pt's arrival date/time. [facility] will need to be notified of the changes and another physician referral form will need to be sent to [place] Medicaid Transportation. Derek did indicate they received additional written information for [facility] about the procedures and surgery pt will have. He indicated he reviewed it with pt and they found it very helpful. Pt indcated he has signed the release of information he received for [facility] and will get in in the mail today. documented in this encounter Plan of Treatment Upcoming Encounters Date Type Department Care Team (Late st Contact Info) Description 08/15/2024 11:30 AM EST Office Visit Hematology/Oncology at [address] [phone] Chanelle [address] [facility] [place] [address] Bee Curry [facility] [address] documented as of this encounter Visit Diagnoses Not on filedocumented in this encounter Care Teams Exhibition Carver Relationship Specialty Start Date End Date Subhash Dowling MD [address] [place] [id number] PCP - General 06/03/10 documented as of this encounter
--- OUTSIDE RECORDS SUMMARY | 2024-08-15 01:36 | XMS_ITS | Encounter Summary ---
Author Organization [facility] [place] [address] Care Team Providers Care Work Adjustment Instructor Name Role Phone Subhash Dowling MD Primary Care Provider [phone] Reason for Visit * Reason Onset Date Comments Other 01/25/2020 transportation Encounter Details Date Type Department Care Team (Late st Contact Info) Description 01/25/2020 Telephone Hematology/Oncology at [address] [phone] Nadia Mueller MSW OFFICE OF CARE MANAGEMENT [...] Telephone Encounter - Nadia Mueller MSW - 01/25/2020 6:42 AM EDT Faxed request to [facility] for rides on the following dates: Friday January 31, 2020 at arrive at 12 noon and 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 Physician referral for faxed to [place] [employer] Medical Transportation re this request. Thursday February 06, 2020 arrive at 7:00 am for surgery and inpatient stay per Kalyani Mendoza, KEYA, Nurse Navigator. Physician referral for faxed to [place] Medicaid transportation re this request. [facility] [phone] for any questions. documented in this encounter Plan of Treatment Upcoming Encounters Date Type Department Care Team (Late st Contact Info) Description 08/15/2024 11:30 AM EST Office Visit Hematology/Oncology at [address] [phone] Chanelle Kim [facility] [place] [address] Bee Curry [facility] [address] documented as of this encounter Visit Diagnoses Not on filedocumented in this encounter Care Teams Work Adjustment Instructor Relationship Specialty Start Date End Date Subhash Dowling MD [address] [place] [id number] PCP - General 06/03/10 documented as of this encounter
--- OUTSIDE RECORDS SUMMARY | 2024-08-15 01:36 | XMS_ITS | Encounter Summary ---
Author Organization [facility] Address [facility] [place] [address] Care Team Providers Care Screed Person Name Role Phone Subhash Dowling MD Primary Care Provider [phone] Reason for Visit * Diagnostic Test (Routine) - Closed Specialty Diagnoses / Procedures Referred By Contelaina clark Referred To Contact Radiology Diagnoses Malignant neoplasm of urinary bladder, unspecified site Procedures NM Bone Scan Whole Body Stephan Armstrong MD [facility] [address] [place] [address] Referral ID Status Reason Start Date Expiration Date V isits Requested Visits Authorized [id number] Closed Specialty Service Requested 01/25/2020 07/27/2021 1 1 Encounter Details Date Type Department Care Team (Latest Contact Info) Description 01/31/2020 11:32 AM EDT - 01/31/2020 12:06 PM EDT Hospital Encounter [place] [address] Stephan Armstrong MD [facility] [address] Discharge Disposition: Home Social History Tobacco Use [...] AM EST Office Visit Hematology/Oncology at [address] [phone] Chanelle Kim [facility] [place] [address] Bee Curry [facility] [place] [address] documented as of this encounter Procedures Procedure [...] the number below. ? Electronically signed by: Severo Webster [facility] ([phone]), at 01/31/2020 12:52 PM Narrative 01/31/2020 12:52 PM EDT EXAMINATION: NM [...] contact the number below. Electronically signed by: Severo Webster [facility]([phone]), at 01/31/2020 12:52 PM Stephan Armstrong MD [facility] [place] ORDERABLES documented in this encounter Visit Diagnoses Not on filedocumented in this encounter Care Teams Screed Person Relationship Specialty Start Date End Date Subhash Dowling MD [address] [place] [address] PCP - General 06/03/10 documented as of this encounter
--- OUTSIDE RECORDS SUMMARY | 2024-08-15 01:36 | XMS_ITS | Encounter Summary ---
Author Organization [facility] [place] [address] Care Team Providers Care Problem Manager Name Role Phone Subhash Dowling MD Primary Care Provider [phone] Reason for Referral * Diagnostic Test (Emergency) - Closed Specialty Diagnoses / Procedures Referred By Contac t Referred To Contact Cardiology Diagnoses Hypertension, unspecified type Procedures Echocardiogram Transthoracic([facility]) Roseann Guzmán MD [facility] [place] [address] [place] [address] Referral ID Status Reason Start Date Expiration Date V isits Requested Visits Authorized [id number] Closed Specialty Service Requested 01/25/2020 01/24/2021 1 1 Reason for Visit * Reason Comments Advice Only pre op consult, Encounter Details Date Type Department Care Team (Late st Contact Info) Description 01/25/2020 1:00 PM EDT Office [place] [address] Roseann Guzmán MD [facility] [place] [address] Encounter for perioperative consultation (Primary Dx); Malignant neoplasm of urinary bladder, unspecified site; PVD (peripheral vascular disease); Hypertension, unspecified type; COPD, moderate; Alcohol use disorder, moderate, dependence; Anemia, unspecified type; Tobacco use disorder; Hyperlipidemia, unspecified hyperlipidemia type; Limited literacy Social History Tobacco Use Types Packs/Day Years [...] Sign Reading Time Taken Comments Blood Pressure 132/83 01/25/2020 12:45 PM EDT Pulse 90 01/25/2020 12:45 PM EDT Temperature 36.4 ??C (97.5 ??F) 01/25/2020 1 2:45 PM EDT Respiratory Rate 16 01/25/2020 12:4 5 PM EDT Oxygen Saturation 100% 01/25/2020 12: 45 PM EDT Inhaled Oxygen Concentration - - Weight 54.8 kg (120 lb 12.8 oz) 020 12:45 PM EDT Height 166.5 cm (5' 5.55) 01/25/2020 1 2:45 PM EDT Body Mass Index 19.77 01/25/2020 12:45 PM EDT documented in this encounter Patient Instructions * Patient Instructions* Roseann Guzmán MD - 01/25/2020 1:00 PM EDT 1. documented in this encounter Progress Notes * Roseann Guzmán MD - 01/25/2020 1:00 PM EDT Subjective: Patient ID: Gt Aguilar is a 69 y.o. male. HPI Chief Complaint Patient presents with ??? Advice Only pre op consult, 69 year old man, here unaccompanied, for pre-op evaluation prior to planned surgery Surgery: cystectomy with ileal conduit Surgeon: Dr Stephan Armstrong Date of Surgery: 02/06/2020 Concerns: reports he didn't know that ileostomy was going to be permanent This is a 69 year old gentleman who lives 2 [place] from [facility] [place] [facility] [place], is unable to read or write, he does not drive.. He is here for a preoperative evaluation prior to upcoming bladder cancer surgery. Patient is followed by a pcp in his local [facility] Dr Subhash Dowling who last saw him 01/23/2020 and follows him for HTN, HLD, COPD and PAD. 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 He was seen at [facility] in [facility] and receivedGemzar/Cisplatin Chemotherapy 7 infusions through portacath. Recent CT and PET scanning showed decreased size of bladder mass but concerning for some heavy uptake of left sided para-aortic nodes and plan is for bx prior to surgery to rule out widely metastatic disease. He has a hx of HTN and HLD and a major surgical procedure aortoiliac endarterectomy in the past, urolithiasis, GERD, traumatic fracture right hip and subsequent right leg length discrepancy with chronic R calf cramping due to altered gait. Social History: 100 pack year smoker and continues to smoke 1/2-1 ppd. Ongoing moderately heavy alcohol use 2 drinks a night. No drug use. He grew up in [facility] [place] [facility] and finished 11th grade. 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 He is and has 3 children, 2 live in [place] and one daughter in the [employer] in [facility]; he has limited contact with [employer]. His brother David age 66 [address] but has significant health challenges as well.He has a [facility] briefcase sewer, Ketty Ricketts who is also his landlord and is instrumental in helping him manage his affairs. Doesn't know anything about his family history but brother and sister are alive Spoke with his roommate Subhash who confirmed the following meds: Medications 01/25/20 1249 Medication Sig Taking? varenicline (CHANTIX) 0.5 mg (11)- 1 mg (42) Tablets, Dose Pack 0.5 mg by mouth daily for 3 days then 0.5mg by mouth twice a day for 4 days then 1mg twice a day. Start drug 1 week before quit day. Unclear if he is taking albuterol 90 mcg/actuation HFA Aerosol Inhaler Inhale 2 puffs into the lungs every 4 hours as needed for Wheezing. Use with spacer Yes, uses twice a day atenoloL (Tenormin) 25 mg Tablet Take 25 mg by mouth daily. Yes traMADoL (Ultram) 50 mg Tablet Take 50 mg by mouth every 6 hours as needed for Pain. Unclear if he is taking aspirin EC 81 mg Tablet, Delayed Release (E.C.) Take 81 mg by mouth daily. Yes atorvastatin (Lipitor) 20 mg Tablet Ibuprofen Tylenol Take 20 mg by mouth daily. Yes Allergies Allergen Reactions ??? Wellbutrin [Bupropion Hcl] Other (See Comments) Unknown on pt's chart from outside facility Review of Systems Constitutional: Positive for fatigue and unexpected weight change. Negative for appetite change. He is unaware of weight loss Respiratory: Positive for cough (with small amt sputum, chronic). Negative for shortness of breath and wheezing. Cardiovascular: Negative for chest pain and palpitations. Gastrointestinal: Negative for abdominal pain, constipation and diarrhea. Genitourinary: Positive for difficulty urinating. Negative for dysuria. Psychiatric/Behavioral: Negative for dysphoric mood and sleep disturbance. Able to walk to grocery store, health clinic, bank without difficulties or limitations Patient Active Problem List Diagnosis Code ??? [...] cancer C67.9 ??? Tobacco use disorder F17.200 Past Medical History: Diagnosis Date ??? Asthma [...] fall off a doroteo[place] during the procedure [...] Date ??? AORTO-ILIAC BYPASS GRAFT endarterectomy ??? HIP FRACTURE SURGERY Right 1991 ??? INGUINAL HERNIA REPAIR Right ??? IR MEDIPORT PLACEMENT/EXCHANGE 11/27/2019 IR Mediport Placement 11/27/2019 Jason Lujan, [facility] INTER[facility] RAD Family History No data available Social History Social History Narrative 100 pack year smoker and continues to smoke 1/2-1 ppd. Ongoing moderately heavy alcohol use 2 drinks a night. No drug use. He grew up in [facility] [place] and finished 11th grade. 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 He is and has 3 children, 2 live in [place] and one daughter in the [employer] in [facility]; he has limited contact with them. His brother David age 66 [address] but has significant health challenges as well. He has a [employer] [facility] briefcase sewer, Ketty Ricketts who is also his landlord and is instrumental in helping him manage his affairs. Objective: Physical Exam Constitutional: Comments: Appears older than stated age HENT: Right Ear: Tympanic membrane normal. Left Ear: Tympanic membrane normal. Mouth/Throat: Comments: Edentulous, no erythema MP2 Eyes: Conjunctiva/sclera: Conjunctivae normal. Cardiovascular: Rate and Rhythm: Normal rate and regular rhythm. Comments: Borderline tachy,+intermittent S3, no murmur Abdominal and bilateral femoral bruits Absent DP and Absent post tibial on left and Absent DP right, 2 + pulse right post tibial Abdominal: General: Abdomen is flat. Palpations: Abdomen is soft. Tenderness: There is no abdominal tenderness. Comments: Liver edge at costal margin Lymphadenopathy: Cervical: No cervical adenopathy. Skin: Coloration: Skin is not jaundiced. Findings: No bruising. Comments: Incurvated toenails all toes, reaching underside of toes Clubbing fingernails Neurological: Comments: Oriented to person Psychiatric: Comments: Mood and behavior normal, thought content restricted and limited insight BP 132/83 (BP Location (NBP): Left arm, Patient Position: Sitting, BP Cuff Sizes: Adult (25-34 cm)) Pulse 90 Temp 36.4 ??C (97.5 ??F) (Oral) Resp 16 Ht 166.5 cm (5' 5.55) Wt 54.8 kg (120 lb 12.8 oz) SpO2 100% BMI 19.77 kg/m?? BP Readings from Last 3 Encounters: 01/25/20 132/83 01/15/20 134/80 12/26/19 114/78 Wt Readings from Last 3 Encounters: 01/25/20 54.8 kg (120 lb 12.8 oz) 01/15/20 56.2 kg (124 lb) 12/26/19 56.7 kg (125 lb) EKG NSR at 70, normal intervals and axis, no acute ST-T wave changes Echo: SUMMARY: ?? 1. The left ventricular chamber size is [...] from 03/21/2019, there is no significant change. Lab Results Component Value Date NA 138 01/15/2020 K 4.5 01/15/2020 CL 103 01/15/2020 CO2 24 01/15/2020 BUN 15 01/15/2020 CREATININE 0.98 01/15/2020 GLUCOSE 100 01/15/2020 CALCIUM 9.4 01/15/2020 ESTGFR 79 01/15/2020 Lab Results Component Value Date ALT 8 01/15/2020 AST 8 01/15/2020 ALKPHOS 164 (H) 01/15/2020 BILITOT 0.2 01/15/2020 ALBUMIN 3.9 01/15/2020 PROT 7.0 01/15/2020 Lab Results Component Value Date WBC 10.5 (H) 01/15/2020 HGB 12.1 (L) 01/15/2020 HCT 37.5 (L) 01/15/2020 MCV 97.7 (H) 01/15/2020 PLATELET 210 01/15/2020 Lipid Panel Lab Results Component Value Date CHLPL 248 01/25/2020 HDL 56 01/25/2020 CHOLHDL 4.4 01/25/2020 TRIG 126 01/25/2020 LDLCHOL 167 01/25/2020 Lab Results Component Value Date TSH 0.82 01/25/2020 Assessment and Plan: Gt was seen today for advice only. Diagnoses and all orders for this visit: Encounter for perioperative consultation/Malignant neoplasm of urinary bladder, unspecified site - 69 year old man with PAD, HLD, HTN, COPD 2 and cough, GERD, active heavy smoker, active alcohol use, ongoing weight loss, disabled likely due to multiple social factors of poor literacy and limitedinsight into illness, active smoking and alcohol use, estranged from family with urothelial cell cancer of bladder with local spread and possible distant mets. Plan is for biopsy of para-aortic LN's to rule out distant mets which would preclude surgery and make iummunotherapy the favored approach. - In the event of surgery his risk of MACE by Roach is between 0.4% (urologic procedure) and 1.7% (other abdominal), suspect cystectomy with ileal diversion somewhere in between. Given his Sykes Activity Score probably under 4 Mets due to COPD and ambulation difficulties, and his hx of PAD, will recommend d/c atenolol and start metoprolol succinate XL 25 and attempt to uptitrate to manage P and periop risk of NM. Echo suggests no diastolic dysfunction in spite of his hx of HTN. Would check dailyEKG and post op troponins x 3 - Pulmonary complications based on his hx of COPD and active smoking is elevated with Aristcat score of 34 or 13% post op risk of pulmonary complications including pneumonia. If possible inspiratory spirometer and regular use of his combivent inhaler prior to surgery and cessation of smoking would help to optimize his situation. Post op management with aggressive pulmonary toilet and standing ipratropium nebs - VTE Risk: Caprini Score 12 and elevated risk of 10.7% of periop VTE is highest risk suggesting combination of compression devices and LMWH - Alcohol Use and risk of withdrawal: prior hx of seizure in distant past, possible alcohol withdrawal seizure, no other s/s alcohol withdrawal, risk likely moderate; watch for withdrawal post op - Medications: take toprol am of surgery with sip of water, hold asa 7-10 days prior to surgery. Ideally atorvastatin should be at least 40 mg and his lipids suggest that he may not be taking it at all. Would continue statin and can increase to 40 mg - Overall: moderate risk surgery and patient with low-moderate risk profile, patient is undergoing semi-elective surgery, may proceed to surgery with above recommendations documented in this encounter Plan of Treatment Upcoming Encounters Date Type Department Care Team (Late st Contact Info) Description 08/15/2024 11:30 AM EST Office Visit Hematology/Oncology at [address] [phone] Chanelle Kim, [facility] [place] [address] [facility] [place] [address] documented as of this encounter Procedures Procedure Name Priority Date/Time Associated Diagnosis Comments HC C-REACTIVE PROTEIN STAT 01/25/2020 12:38 PM EDT Hyperlipidemia, unspecified hyperlipidemia type IRON AND TIBC STAT 01/25/2020 12:38 PM EDT HC VENIPUNCTURE STAT 01/25/2020 12:38 PM EDT Hyperlipidemia, unspecified hyperlipidemia type LIPID PANEL (REFLEX DIRECT LDL) STAT 01/25/2020 12:38 PM EDT Hyperlipidemia, unspecified hyperlipidemia type documented in this encounter Results * ECHO COMPLETE (01/25/2020 2:58 PM EDT) EF 71 HEARTLAB SYSTEM Anatomical Region Laterality Modality Other 01/25/2020 Narrative 01/25/2020 3:25 PM EDT Procedure: ?Transthoracic Echocardiogram Patient: ?YVES Hernandez ?(Age): 1950(69y) Med Rec#: ? [id number] ?Sex: ?M ? Site Loc: ? [facility] ?Ht / Wt: ??167(cm)/53(kg) Pt. Loc: ?Echo Lab ?BSA: ?1.59 Study Date: ?? 01/25/2020 ?Pt. Type: Outpatient Tape: ? Referring: SWEETIE Reading: John Shukla ([id number]) Logistics/Shipper: Jamie Schilling Interpreting Fellow: Tobias Redd ([id number]) Diagnosis: *Essential (primary) hypertension (I10) Rhythm: ? [...] Vmax ?0.75 ? m/sec ? MV deceleration kakp115.12 ? msec ? MV A-wave Vmax ?0.79 [...] ? Mid-Inferior ?Normal ? Mid-Inferoseptal ?Normal ? Diggs-Septal ? Normal ? Diggs-Anterior ? Normal ? Diggs-Lateral ?Normal ? Diggs-Inferior ? Normal ? Diggs-Tip ?Normal ? This report has been electronically signed by: John Shukla MD ? 01/25/2020 15:24:42 Images reviewed and interpretation verified [facility] Cardiac Ultrasound Laboratory Procedure Note John Shukla MD - 01/25/2020 Procedure: Transthoracic Echocardiogram Patient: YVES SCHULTE(Age): 1950(69y) Med Rec#: [id number] Sex: M Site Loc: [facility] Ht / Wt: 167(cm)/53(kg) Pt. Loc: Echo Lab BSA: 1.59 Study Date: 01/25/2020 Pt. Type: Outpatient Tape: Referring: SWEETIE Reading: John Shukla ([id number]) Logistics/Shipper: Jamie Schilling Interpreting Fellow: Tobias Redd ([id number]) Diagnosis: *Essential (primary) hypertension (I10) Rhythm: Sinus [...] MV E-wave Vmax 0.75 m/sec MV deceleration [id number] msec MV A-wave Vmax 0.79 m/sec MV [...] Normal Mid-Posterolateral Normal Mid-Inferior Normal Mid-Inferoseptal Normal Diggs-Septal Normal Diggs-Anterior Normal Diggs-Lateral Normal Diggs-Inferior Normal Diggs-Tip Normal This report has been electronically signed by: John Shukla MD 01/25/2020 15:24:42 Images reviewed and interpretation verified [facility] Cardiac Ultrasound Laboratory Roseann Guzmán MD ECHO ORDERABLES * Iron and TIBC (01/25/2020 12:38 PM EDT) Iron 81 45 - 160 mcg/dL [facility] TIBC 322 250 - 450 mcg/dL [facility] Iron Saturation 25 20 - 50 % [facility] Blood specimen (specimen) Venous Draw / Unknown 01/25/2020 12:38 PM EDT 01/25/2020 12:57 PM EDT Narrative Resulting Agency Comment Spec In Lab Roseann Guzmán MD CHEMISTRY ORDERABL ES Performing Organization Address City/[facility]/[place] [address] * TSH (01/25/2020 12:38 PM EDT) Thyroid Stimulating Hormone 0.82 0.27 - 4.20 mcIU/mL [facility] Blood specimen (specimen) 01/25/2020 12:38 PM EDT 01/25/2020 12:45 PM EDT Narrative Resulting Agency Comment Spec In Lab Roseann Guzmán MD CHEMISTRY ORDERABL ES Performing Organization Address City/[facility]/ZIP Co de Phone Number [facility] [place] [address] * CRP, acute inflammation (01/25/2020 12:38 PM EDT) C-Reactive Protein 1.2 <=4.9 mg/L [facility] Blood specimen (specimen) 01/25/2020 12:38 PM EDT 01/25/2020 12:45 PM EDT Narrative Resulting Agency Comment Spec In Lab Roseann Guzmán MD CHEMISTRY ORDERABL ES [facility] [place] [address] * Lipid Panel (Reflex Direct LDL) (01/25/2020 12:38 PM EDT) Cholesterol, Total 248 mg/dL [facility] Comment: Lower Risk: <200 mg/dL Average Risk: 200-239 mg/dL Higher Risk: >pd=992 mg/dL Triglyceride 126 mg/dL [facility] Comment: Average Risk/Lower Risk: <150 mg/dL Borderline High Risk: 150-199 mg/dL High Risk: 200-499 mg/dL Very High Risk: >es=821 mg/dL HDL Cholesterol 56 mg/dL [facility] Comment: Males: ?? Higher Risk: <40 mg/dL Females: ?? HIgher Risk: <50 mg/dL LDL Cholesterol 167 mg/dL [facility] Comment: Lowest Risk: <100 mg/dL Lower Risk: 100-129 mg/dL Borderline High Risk: 130-159 mg/dL High Risk: 160-189 mg/dL Very High Risk: >ra=662 mg/dL Cholesterol/HDL Ratio 4.4 ratio [facility] Lipid Interpretation See Note [facility] Comment: Lipid management should be guided by a patient? s ASCVD risk, goals and preferences. ACC/AHA Guidelines recommend high intensity statin if clinical ASCVD or LDL greater than or equal to 190 mg/dL. http://[employer].com/SPE-EES-Atmklallh Adults aged 40-75 with LDL 70-189 mg/dL should have their 10 year ASCVD risk estimated with the ACC/AHA ASCVD risk estimator paperboard boxes http://tools.acc.org/UKRPN-Boyk-Vrvvffdwr/ Statin should be discussed if risk greater than or equal to 7.5% in non-diabetics. With diabetes, moderate intensity statin is recommended if risk less than 7.5%, high intensity if risk greater than or equal to 7.5%. Annual lipid monitoring on statins is not necessary. Evaluate secondary causes of Triglycerides greater than 500 mg/dL or LDL greater than 190 mg/dL: See table 6 of ACC/AHA Guideline. Lifestyle modification is a critical component of ASCVD risk reduction. Blood specimen (specimen) 01/25/2020 12:38 PM EDT 01/25/2020 12:45 PM EDT Narrative Resulting Agency Comment Spec In Lab Roseann Guzmán MD CHEMISTRY ORDERABL ES Performing Organization Address City/State/[facility] Co de Phone Number [facility] [place] [address] documented in this encounter Visit Diagnoses Diagnosis Encounter for perioperative consultation- Primary Malignant neoplasm of urinary bladder, unspecified site PVD (peripheral vascular disease) Peripheral vascular disease, unspecified Hypertension, unspecified type COPD, moderate Chronic airway obstruction, not elsewhere classified Alcohol use disorder, moderate, dependence Anemia, unspecified type Tobacco use disorder Hyperlipidemia, unspecified hyperlipidemia type Limited literacy Hypertension, unspecified type documented in this encounter Care Teams Problem Manager Relationship Specialty Start Date End Date Subhash Dowling MD [address] [place] [id number] PCP - General 06/03/10 documented as of this encounter
--- OUTSIDE RECORDS SUMMARY | 2024-08-15 01:36 | XMS_ITS | Encounter Summary ---
Author Organization [facility] [place] [address] Care Team Providers Care Bridge Ironworker Helper Name Role Phone Subhash Dowling MD Primary Care Provider [phone] Reason for Visit * Auth/Cert Specialty Diagnoses / Procedures Referred By Contelaina t Referred To Contact Diagnoses Bladder cancer Bladder Cancer . Procedures PRO CYSTECTOMY, ILEAL CONDUIT/SIGMOID BLADDER @CYSTECTOMY, COMPLETE, WITH ILEAL CONDUIT (WRVU 36.33) Referral ID Status Reason Start Date Expiration Date Visits Re quested Visits Authorized [id number] 1 1 Encounter Details Date Type Department Care Team (Late st Contact Info) Description 02/13/2020 7:30 AM EDT - 02/13/2020 4:28 PM EDT Surgery [place] [address] Nima Armstrong MD [facility] [place] [address] @CYSTECTOMY, COMPLETE, WITH ILEAL CONDUIT (WRVU 36.33) Social History Tobacco Use Types Packs/Day Years [...] Sign Reading Time Taken Comments Blood Pressure 141/89 02/13/2020 6:40 AM EDT Pulse 98 02/13/2020 6:40 AM EDT Temperature 36.3 ??C (97.3 ??F) 02/13/2020 6:40 AM ED T Respiratory Rate 18 02/13/2020 6:40 AM EDT Oxygen Saturation 98% 02/13/2020 6:40 AM EDT Inhaled Oxygen Concentration - - Weight 54.8 kg (120 lb 13 oz) 02/13/2020 6:40 AM EDT Height - - Body Mass Index 15.88 02/14/2020 6:27 PM EDT documented in this encounter Discharge Summaries * Roselia Castro PA - 03/07/2020 1:31 PM EDT [X] F/u in [address] Armstrong, requested Discharge Summary Patient Name: Wally Aguilar Patient Age: 69 y.o. Language: Spanish Race: White Ethnicity: Not nor Admit date: [...] Hospital Course: Patient was admitted electively to [facility] via the same day surgery program and [...] 03/06/2020 GLUCOSE 99 03/06/2020 CALCIUM 9.3 03/06/2020 8 DARYN creatinine 0.8 02/27 TSH 1.32 03/05 [...] Given to Patient at Discharge: Patient Instructions [facility] - Department of Urologic Surgery Patient Discharge [...] or stool. The number for questions is [phone] before 5 PM weekdays and [phone] after 5 PM and weekends. Activity level: [...] in the Urologic Surgery Outpatient Clinic - Computer Systems Analyst in 1 -2 weeks for labs and post op check. Confirmation of yourappointment will be sent to you. Please call [phone] (clinic number for appointments) to confirm date and time of your appointment if you do not receive your appointment in 2-3 days. Follow-up Appointments: Future Appointments Date Time Provider Department Center 03/22/2020 12:00 PM [facility] [address] [facility] Rad 03/22/2020 1:30 PM John Hooper MD [facility] V SURG [facility] 04/02/2020 2:00 PM Aries Quiñones MD [facility] Hem [facility] [place] [facility] Urologic Surgery: [phone] Department of Urologic Surgery ??? [facility] ??? [address] ??? [place] [address] ??? [phone] ~~~~~~~~~~~~~~~~~~~~~~~~~~~~~~~~~~~~~~~~~~~~~~~~~~~~~~~~~~~~~~~~~~~ General Instructions How to obtain Ostomy [...] using -Name of Surgeon and telephone number [employer] [facility] (www.ClickPay Services) Inspector Coated Fabrics: Zaida Pedroza [phone] RatherGather (www.Standing Cloud) Xplornet (Medichanical Engineering.Tutor Assignment) Recurrent Energy ([email or web address] Comfort Medical (www.[email or web address]) Social Fabrics (www.[email or web address]) Myworldwall (Banjo) *If you wear Warren products and are having a difficult time finding a vendor that will accept your Insurance you may call Naveen at . They have a team of 30 Insurance experts whowill help you find a vendor that can bill your Insurance Company. Remember, if they need to return your call expect a call from [place], in case you are screening your calls. [...] Ostomy Nurse a call. Ileal Conduit Pouching: Warren 2-piece pouch Name: Wally Aguilar Type of Ostomy: Urostomy Use this procedure as a guide when changing your appliance. Read all instructions, assemble all equipment, and empty contents from pouch before beginning actual change. If you have questions, do not hesitate to call the Ostomy Nurses at [phone]. Equipment: Company/Order Numbers Wet and dry soft cloth (paper towels) Plastic bag Pen, Scissors, stoma patter Appliance pouch Naveen 1 09/12 #25763 Wafer, Cera Plus Warren 1 09/12 #93172 Protective powder Warren # 7906 Adapt Paste Warren # 70207 Nosting Skin Barrier Wipe [facility] # 614270 Barrier ring Naveen # 9905 Barrier strips Coloplast # [id number] Night Drainage Garden Equipment Mechanic Bard #[id number] (catheter bag) OR [facility] night drainage container set #[id number] (hard plastic container) Procedure: 1. Wash Hands. [...] apply a dusting of Adapt protective powder. Loving off excess powder, or wafer will not [...] use; hang to dry. Change night drainage commercial collector once a month. [facility] Interventional Radiology Discharge Instructions for Feeding Tube [...] or its attachments. INTERVENTIONAL RADIOLOGY PHONE NUMBERS [phone] If you have a NON Low profile feeding tube, call with any questions or concerns. During regular office hours call: [phone]. If it is after regular office hours, weekends or holidays, please call [phone] and ask to speak to the Shotgun Shell Assembly Machine Operator quality control lab technician for Interventional Radiology. If you have a low profile ???SEAMUS-WILSON?? feeding tube, please call Maria Luisa Mace RN for any issues: [phone]. Revised 04/27/1903/06 Psychiatry Consult Assessment: Patient is a 69 YO M with history of bladder cancer (s/p recent chemotherapy), malnutrition, HTN, HLD, peripheral vascular disease, and asthma who presented to [facility] for cystoprostatectomy with ileal conduit on 02/12.??Patient's [...] Provider Department Dept Phone 03/22/2020 12:00 PM [facility] CT 4 CAT Scan at [facility] Arrive at: INTERVENTIONAL RADIOLOGY [phone] Please arrive at the Lab 1 Hour and 15 Minutes prior to your scheduled time if your labs need to betaken. 03/22/2020 1:30 PM John Hooper MD Vascular Surgery at [facility] Arrive at: Computer Systems Analyst Area 04/02/2020 2:00 PM Chanelle Kim APRN; Aries Quiñones MD Hematology/Oncology at [facility] Arrive at: [facility] door at end of hallway [phone] Future Orders Complete By Expires CBC (with Diff) [[id number] Custom] 03/14/2020 (Approximate) 04/07/2020 Process Instructions: INCLUDES: WBC, RBC, Hgb, Hct, Platelets, RBC Indices and Differential Scheduling Instructions: Comments: Questions: Comprehensive metabolic panel (non-fasting) [LAB17 Custom] 03/14/2020 (Approximate) 04/07/2020 Process Instructions: INCLUDES: Calcium, T Protein, Albumin, AST, ALT, Alk Phos, T Bili, BUN, Creat, GFR, Glucose, Lytes. Scheduling Instructions: Comments: Questions: CT Angiogram Aortic Lower Extremity Runoff [[id number] Custom] 03/16/2020 08/16/2020 Process Instructions: Scheduling Instructions: Comments: Would like to include abdomen and pelvis with full bilateral lower extremity runoff Questions: Where will study be performed?: [facility] Radiology Reason for exam and clinical history: Bilateral LE claudication Clinical information / wilson questions: Stat read required?: Does patient require sedation?: GA rationale: Date of injury if applicable: Requested Time: Follow-Up: Future Appointments Date Time Provider Department Center 03/22/2020 12:00 PM [facility] [address] [facility] Rad 03/22/2020 1:30 PM John Hooper MD [facility] V SURG [facility] 04/02/2020 2:00 PM Aries Quiñones MD ST Hem Off [facility] Primary Care Provider: Subhash Dowling MD [phone] Call your doctor if: Please call your [...] was managed by the Urology Team at [facility]. If you have any questions or concerns, please feel free to contact us. Provider Contact Information: Urology Clinic: [facility] (after business hours): documented in this encounter [...] using -Name of Surgeon and telephone number [employer]ParmChron [employer] (www.ClickPay Services) Inspector Coated Fabrics: Zaida Pedroza [phone] RatherGather (www.Standing Cloud) Xplornet (Shoutlet) Recurrent Energy (www.[email or web address] Comfort Medical (Medichanical Engineering.comfort6Waves) Social Fabrics (Medichanical Engineering.ShutterCal.Mendocino Software) Myworldwall (Banjo) *If you wear TuVox products and are having a difficult time finding a vendor that will accept your Insurance you may call TuVox at . They have a team of 30 Insurance experts whowill help you find a vendor that can bill your Insurance Company. Remember, if they need to return your call expect a call from [place], in case you are screening your calls. [...] with Urostomy When to call your Ostomy Nurse/MJessica Change in Color: The stoma should always [...] hesitate to call the Ostomy Nurses at [phone]. Equipment: Company/Order Numbers Wet and dry soft cloth (paper towels) Plastic bag Pen, Scissors, stoma patter Appliance pouch Warren 1 / #80610 Wafer, Cera Plus Naveen 1 3/ #07463 Protective powder Warren # 7906 Adapt Paste Naveen # 34605 Nosting Skin Barrier Wipe [facility] # [id number] Barrier ring Warren # 8085 Barrier strips Coloplast # [id number] Night Drainage Garden Equipment Mechanic Bard #062299 (catheter bag) [facility] container set #[id number] (hard plastic container) Procedure: 1. Wash Hands. [...] apply a dusting of Adapt protective powder. Loving off excess powder, or wafer will not [...] use; hang to dry. Change night drainage commercial collector once a month. [facility] Interventional Radiology Discharge Instructions for Feeding Tube [...] or its attachments. INTERVENTIONAL RADIOLOGY PHONE NUMBERS [phone] If you have a NON Low profile feeding tube, call with any questions or concerns. During regular office hours call: [phone]. If it is after regular office hours, weekends or holidays, please call [phone] and ask to speak to the Shotgun Shell Assembly Machine Operator quality control lab technician for Interventional Radiology. If you have a low profile ???SEAMUS-WILSON?? feeding tube, please call Maria Luisa Mace RN for any issues: [phone]. Revised 04/27/1903/06 Psychiatry Consult Assessment: Patient is a 69 YO M with history of bladder cancer (s/p recent chemotherapy), malnutrition, HTN, HLD, peripheral vascular disease, and asthma who presented to [facility] for cystoprostatectomy with ileal conduit on 02/12.??Patient's presentation is inconsistent with hypoactive delirium, as he has intact consciousness and cognition and his mental status does not appear to be waxing &??waning per madelinei ng report/chart review. He does endorse decreased [...] Castro PA - 03/06/2020 11:51 AM EDT [facility] - Department of Urologic Surgery Patient Discharge [...] or stool. The number for questions is [phone] before 5 PM weekdays and [phone] after 5 PM and weekends. Activity level: [...] in the Urologic Surgery Outpatient Clinic - Computer Systems Analyst in 1 -2 weeks for labs and post op check. Confirmation of yourappointment will be sent to you. Please call [phone] (clinic number for appointments) to confirm date and time of your appointment if you do not receive your appointment in 2-3 days. Follow-up Appointments: Future Appointments Date Time Provider Department Center 03/22/2020 12:00 PM [facility] CT [address] [facility] Rad 03/22/2020 1:30 PM John Hooper MD [facility] V SURG [facility] 04/02/2020 2:00 PM Aries Quiñones MD [facility] [place] [facility] U[facility] Surgery: [phone] Department of Urologic Surgery ??? [facility] ??? [address] ??? [place] [address] ??? [phone] ~~~~~~~~~~~~~~~~~~~~~~~~~~~~~~~~~~~~~~~~~~~~~~~~~~~~~~~~~~~~~~~~~~~ documented in this encounter Medications at [...] protocol - catheter intact. Pt d[facility]c'd to [facility] via ambulance. Report called to KEYA Patterson at [phone]. Pt's VSS, no c/o pain, CP, SOB, no acute distress noted. * Lizbeth Abdi RN - 03/07/2020 10:58 AM EDT OFFICE OF CARE MANAGEMENT Community Relations Assistant Discharge Note Lizbeth Abdi RN reviewed record [...] discharge today. Patient will be transported to [facility] for rehab via ambulanc at 3pm today. Updated brother David of discharge via telephone. Updated Demo screen withbrother's correct phone. Team updated Current Referral in place: [facility] Rehab Transportation: Ambulance will drive patient to [...] feel that they are not medically ready. Community Relations Assistant to follow with team and family to [...] 12:31 PM EDT OFFICE OF CARE MANAGEMENT Community Relations Assistant Follow-up Note Lizbeth Abdi RN reviewed record [...] information> Patient will be discharge tomorrow [facility]. Transportation: Ambulance will drive patient to rehab when medically ready. Community Relations Assistant to follow with team and family to [...] to Wally Aguilar on 03/06/20 (Lot # [id number], Exp. 07/12/2020). Signed: Brooke Pearce APRN Surgical Oncology Service Team Pager #[phone] 03/06/20 11:45 AM * Soniya Christine - 03/06/2020 11:08 AM EDT Office of Care Management/Gambling Broker Patient Name: Wally Aguilar : 1950 Patient has been offered a snf bed at [facility] Ambulance arranged for a 1500 transport. Ambulance will need: Medicare ambulance form completed and signed (MD or Community Relations Assistant RN/PLASTICS PROCESS HAND) Copy of patient demographics [place] [facility] [place] [facility] DNR/DNI order, if active No MD to MD report necessary Please call Nursing Report to [phone], ask for dehydrogenation converter helper. Info to accompany patient: Narcotic Prescriptions Copies of Medication Administration Records and IV sheets for past 10 days. Plan: Gambling Broker will be available to the patient and Community Relations Assistant-RN and/or Social Workerfor further assistance. Patient will be discharged to: [address] [address] Dayna Gutierrez * Roselia Castro PA - [...] ?? Psychiatry managing methylphenidate dose titration ?? buncher machine reports patient is participating actively in ostomy [...] base with ID Continue to work with land developer and PT Continue to suggest shower, hygiene, activity, getting outside PLAN: Neuro: pain control: tylenol and tramadol prn, lidoderm patch Psych: Ritalin titrating up. Chantix with water bolus. Card: HDS, Monitor vital signs, [id number], statin, Toprol XL Pulm: albuterol, ambulation, IS. FEN: replete lytes prn, strict I/O's GI: Marinol for appetite stimulant, NPO diet (Give Meds),compazine, protonix, tums Renal/: monitor urine output. Routine ostomy care. Heme: ESR and sed rate elevated as expected given active infection and post surgical ID: Miconazole ointment to scrotum, azithromycin (done 03/04) & nitazoxanide (until 03/07) for infectious diarrhea (edraxxn14 day courses) Endo: Vit D repletion, 50K [...] 01/25/2020 CRP 13.0 02/29/2020 CRP 1.2 01/25/2020 [id number] 765 02/28/2020 25OHVITD 15 (L) 02/28/2020 SFOLATE [...] kg (113 lb 5.1 oz). BMI 16.4 Swiss Body Weight: 142 lbs / 64.4 kg [...] line): Not assessed Lean muscle loss to Sikh region (temporalis muscle): None present Clavicle bone [...] up while inpatient Donte Sheffield RD Pager #:[phone] * Lizbeth Abdi RN - 03/05/2020 11:43 AM EDT OFFICE OF CARE MANAGEMENT Community Relations Assistant Follow-up Note Lizbeth Abdi RN reviewed record [...] Inpatient <no information> Current Referral in place: [facility] looking at patient. Updated Indy Bird RN Hoop Coiling Machine Operator of discharge plan. Transportation: Ambulance will drive patient home via private vehicle when medically ready. Community Relations Assistant to follow with team and family to [...] by Psychiatry, titrating up on methylphenidate ?? buncher machine reports patient is participating actively in ostomy [...] positive stool cultures Continue to work with land developer and PT Continue to suggest shower, hygiene, activity PLAN: Neuro: pain control: tylenol and tramadol prn, lidoderm patch Psych: Ritalin titrating up. Chantix with water bolus. Card: HDS, Monitor vital signs, [id number], statin, Toprol XL Pulm: albuterol, ambulation, IS. FEN: replete lytes prn, strict I/O's GI: Marinol for appetite stimulant, Regular diet,compazine, protonix, tums Renal/: monitor urine output. Routine ostomy care. Heme: ESR and sed rate elevated as expected given active infection and post surgical ID: Miconazole ointment to scrotum, azithromycin (done 03/04) & nitazoxanide (until 03/07) for infectious diarrhea (lovfeck56 day courses) Endo: Vit D repletion, 50K [...] Psychiatry, started on methylphenidate and melatonin ?? buncher machine reports patient is participating actively in ostomy [...] positive stool cultures Continue to work with land developer and PT Continue to suggest shower, hygiene, activity PLAN: Neuro: pain control: tylenol and tramadol prn, lidoderm patch Psych: Ritalin titrating up Card: HDS, Monitor vital signs, [id number], statin, Toprol XL Pulm: albuterol, ambulation, IS FEN: replete lytes prn, strict I/O's GI: Marinol for appetite stimulant, Regular diet,compazine, protonix, tums Renal/: monitor urine output. Routine ostomy care. Heme: ESR and sed rate elevated as expected given active infection and post surgical ID: Miconazole ointment to scrotum, azithromycin (done today 03/04) & nitazoxanide for infectious diarrhea ([id number] day courses) Endo: Vit D repletion Home [...] 12:02 PM EDT OFFICE OF CARE MANAGEMENT Community Relations Assistant Follow-up Note Lizbeth Abdi RN reviewed record [...] - Inpatient <no information> Call placed to [facility] and I spoke with Indy. They are unable to offer a bed to patient today due to staffing. Call placed to [facility] and I spoke with Adrienne. No beds available til the end of week. I spoke with patient and putting in new referrals. Asked Roselia to get new Covid test today in anticipation of discharge tomorrow. No bed offer as of yet. Based on discussions with the multi-disciplinary healthcare team, the patient would benefit from nursing home level of care at discharge. ?? I [...] ?? The patienthave requested referrals to: 1. [facility] ([facility]) [address] [place] [address] ?? [phone] [address] ?? [address] [address] ?? [phone] ?? Expected date of discharge: 03/04/2020 Note routed to Gambling Broker who will communicate referrals to facilities and provide any required information. Transportation: Ambulance/w/c van will drive patient home via private vehicle when medically ready. Community Relations Assistant to follow with team and family to [...] Psychiatry, started on methylphenidate and melatonin ?? buncher machine reports patient is participating actively in ostomy [...] positive stool cultures Continue to work with land developer and PT Continue to suggest shower, hygiene, activity PLAN: Neuro: pain control: tylenol and tramadol prn, lidoderm patch Card: HDS, Monitor vital signs, [id number], statin, Toprol XL Pulm: albuterol, ambulation, IS [...] Psychiatry, started on methylphenidate and melatonin ?? buncher machine reports patient is participating actively in ostomy [...] vascular disease, and asthma who presented to [facility] for cystoprostatectomy with ileal conduit on 02/12. [...] continue to follow - page Consult Psychiatry (#[phone]) for any additional questions or concerns ASSESSMENT: [...] positive stool cultures Continue to work with land developer and PT Continue to suggest shower, hygiene, activity Remove remaining irvin PLAN: Neuro: pain control: tylenol and tramadol prn, lidoderm patch Card: HDS, Monitor vital signs, [id number], statin, Toprol XL Pulm: albuterol, ambulation, IS FEN: replete lytes prn, strict I/O's GI: Marinol for appetite stimulant, Regular diet,compazine, protonix, tums Renal/: monitor urine output. Routine ostomy care. Heme: ESR and sed rate elevated as expected given active infection and post surgical ID: Miconazole ointment to scrotum, azithromycin & nitazoxanide for infectious diarrhea ([id number] day courses) Endo: no active issues Home [...] underway (nutrition recommends through mid April) ?? buncher machine reports patient is participating actively in ostomy [...] vascular disease, and asthma who presented to [facility] for cystoprostatectomy with ileal conduit on 02/12. [...] continue to follow - page Consult Psychiatry (#[phone]) for any additional questions or concerns ASSESSMENT: [...] positive stool cultures Continue to work with land developer and PT Continue to suggest shower, hygiene, activity Remove remaining irvin PLAN: Neuro: pain control: tylenol and tramadol prn, lidoderm patch Card: HDS, Monitor vital signs, [id number], statin, Toprol XL Pulm: albuterol, ambulation, IS FEN: replete lytes prn, strict I/O's GI: Marinol for appetite stimulant, Regular diet,compazine, protonix, tums Renal/: monitor urine output. Routine ostomy care. Heme: no active issues ID: Miconazole ointment to scrotum, azithromycin & nitazoxanide for infectious diarrhea ([id number] day courses) Endo: no active issues Home [...] healthcare team, the patient would benefit from nursing home level of care at discharge. Patient agreed to put referral in for swing closer to his home. ?? I have met with the patient to discuss discharge planning needs. I have provided the [facility], Office of Care Management letter from the Optical Instrument Specialist pertaining to rehab referrals. I have also provided a letter describing our affiliations within the [facility] and educatedthem about their right to choose where referrals are. ?? Provided patient with [facility] Star Quality Rating for SNF, LTAC [...] The patient have requested referrals to: 1. [facility] ([facility]) [address] [place] [address] (Accepts pts only after exhausting all other local SNF options Only pts from their area with PCP at the Hospital ?? Maximum rehab stay of 5 days) 2[address] [facility] ([facility]) [address] [place] [address] ?? (Accepts pts 3-5 days max) ? Expected date of discharge: 03/04/2020 Note routed to Gambling Broker who will communicate referrals to facilities and [...] w/ whole milk, Magic cup ice cream, Grenadian yogurt, etc- but taking little Will note [...] 01/25/2020 CRP 13.0 02/29/2020 CRP 1.2 01/25/2020 [id number] 02/28/2020 25OHVITD 15 (L) 02/28/2020 SFOLATE [...] kg (101 lb 9.6 oz). BMI 16.4 Swiss Body Weight: 142 lbs / 64.4 kg [...] line): Not assessed Lean muscle loss to Sikh region (temporalis muscle): None present Clavicle bone [...] willing to try CIB with whole milk, Grenadian yogurt, Gutierrez Magic Cups. He prefers whole [...] up while inpatient DARIELA PEREIRA RD Pager #:[phone] * Roberto Bradshaw DO - 02/29/2020 1:20 [...] release in 7-10 days (ordered and IR mill order scheduler notified). 2) IR will sign-off at [...] 1800 02/27/2020 1415 02/26/2020 1800 TPN Adult [[id number]] TPN Adult [[id number]] TPN Adult [[id number]] Order Status Active Discontinued Discontinued Last Admin New Bag at 02/28/2020 1727 by Soniya Moss, RN New Bag at 02/27/2020 1825 by [...] 02/20/2020 TRIG 126 01/25/2020 CRP 1.2 01/25/2020 [id number] 765 02/28/2020 25OHVITD 15 (L) 02/28/2020 SFOLATE [...] encounter: 51.4 kg (113 lb 6.4 oz). Swiss Body Weight: 63.8 kg Usual Body Weight: [...] 9.6 oz) Assessment: Estimated needs: Calories: 25-30 (6960-8353 kcal/kg) Protein: 2 grams (115g/kg) Nutrition Focused Physical Exam (NFPE): Performed on 02/19/20. Subcutaneous fat loss at Orbital region: Mild Upper arm region (triceps/biceps): Mild Thoracic and lumbar region (ribs, lower back and maxillary line): Mild Lean muscle loss to Sikh region (temporalis muscle): Moderate Clavicle bone region [...] up while inpatient. ZAIRA RONDON RD Pager #:[phone] * Roselia Castro PA - 02/29/2020 11:03 [...] taste and swallowing issues. Was seen by STAFFING BRANCH MANAGER several weeks ago, no mechanical issues found. ?? Loose incontinent BM x 3 in past 24 hours, crypto & campylobacter + ?? Remains on TPN, cycled overnight ?? Ambulating minimally ?? Denies pain ?? Seen by Psychiatry, started on methylphenidate and melatonin, increasing methylphenidate dosing today ?? Vit D result shows deficiency ?? buncher machine reports patient is participating actively in ostomy [...] vascular disease, and asthma who presented to [facility] for cystoprostatectomy with ileal conduit on 02/12. [...] continue to follow - page Consult Psychiatry (#[phone]) for any additional questions or concerns ASSESSMENT: [...] work to advance mobility with PT/OT and [facility] staff. Patient resistant to the [...] positive stool cultures Continue to work with land developer and PT PLAN: Neuro: pain control: tylenol and tramadol prn, lidoderm patch Card: HDS, Monitor vital signs, [id number], statin, Toprol XL Pulm: albuterol, ambulation, IS [...] w/ whole milk, Magic cup ice cream, Grenadian yogurt, etc Will offer whole milk on [...] of this encounter: 54.9 kg (121 lb). Swiss Body Weight: 142 lbs / 64.4 kg Usual Body Weight: 140 lbs per patient report, unable to give timeframe Wt Readings from Last 10 Encounters: 02/21/20 54.9 kg (121 lb) 08/06/20 54.4 kg (120 lb) 01/25/20 54.8 kg [...] line): Not assessed Lean muscle loss to Sikh region (temporalis muscle): None present Clavicle bone [...] willing to try CIB with whole milk, Grenadian yogurt, Gutierrez Magic Cups. He prefers whole [...] up while inpatient DARIELA PEREIRA RD Pager #:[phone] * Zaira Rondon RD - 02/28/2020 12:19 [...] was able to discuss plan with provider [id number]. Nutrition Support: TPN Medication Recent History (Show up to 3 orders; newest on the left. Changes between the two most recent orders are indicated.) Start date and time 02/28/2020 1800 02/27/2020 1415 02/26/2020 1800 TPN Adult [[id number]] TPN Adult [[id number]] TPN Adult [[id number]] Order Status Active Discontinued Discontinued Last Admin [...] of this encounter: 54.9 kg (121 lb). Swiss Body Weight: 63.8 kg Usual Body Weight: [...] 9.6 oz) Assessment: Estimated needs: Calories: 25-30 (2151-1943 kcal/kg) Protein: 2 grams (115g/kg) Nutrition Focused Physical Exam (NFPE): Performed on 02/19/20. Subcutaneous fat loss at Orbital region: Mild Upper arm region (triceps/biceps): Mild Thoracic and lumbar region (ribs, lower back and maxillary line): Mild Lean muscle loss to Sikh region (temporalis muscle): Moderate Clavicle bone region [...] acute illness or injury (Brandy et al, CORNELL J Parenteral Enteral Nutr. 2012 November; 36(3): 273-83) Nutrition to continue to follow up while inpatient. ZAIRA RONDON RD Pager #:[phone] * Lizbeth Abdi RN - 02/28/2020 11:33 AM EDT OFFICE OF CARE MANAGEMENT Community Relations Assistant Follow-up Note Lizbeth Abdi RN reviewed record [...] vehicle when medically ready. Support: Tray Hdez Community Relations Assistant to follow with team and family to assist with discharge needs when patient ready for discharge. Lizbeth Abdi RN Case Management pgr [phone] * Gail Lara RN - 02/28/2020 10:38 AM EDT [facility] NURSING DATABASE Name: WALLY AGUILAR Date of : 1950 AGE: 69 y.o. Address: [address] [address] (home) Mobile: Telephone Information: Referring Provider: Subhash [...] SpO2: 98 % SpO2: [95 %-99 %] 08/18 0701 - 02/27 0700 In: 919 [P.O.:320] [...] vascular disease, and asthma who presented to [facility] for cystoprostatectomy with ileal conduit on 02/12. [...] continue to follow - page Consult Psychiatry (#[phone]) for any additional questions or concerns ASSESSMENT: [...] positive stool cultures Continue to work with land developer and PT PLAN: Neuro: pain control: tylenol and tramadol prn, lidoderm patch Card: HDS, Monitor vital signs, [id number], statin, Toprol XL Pulm: albuterol, ambulation, IS [...] - Inpatient NAHID CROWELL 02/28/2020 * Dariela Pereira, RD - 02/27/2020 2:43 PM EDT Nutrition [...] w/ whole milk, Magic cup ice cream, Grenadian yogurt, etc Will offer whole milk on [...] of this encounter: 54.9 kg (121 lb). Swiss Body Weight: 142 lbs / 64.4 kg [...] line): Not assessed Lean muscle loss to Sikh region (temporalis muscle): None present Clavicle bone [...] willing to try CIB with whole milk, Grenadian yogurt, Gutierrez Magic Cups. He prefers whole [...] up while inpatient DARIELA PEREIRA RD Pager #:[phone] * Zaira Rondon RD - 02/27/2020 12:49 PM EDT Nutrition Progress Note Patient s/p from a cystoprostatectomy with ileal conduit for MIBC Wally Aguilar is a 69 y.o. male Reason for intervention: TPN Comments: Cyclic TPN to provide full nutrition of 1460 calores and 115 g protein in 1248 ml. `No TPN changes today. I was able to discuss plan with provider [id number]. Nutrition Support: TPN Medication Recent History (Show up to 3 orders; newest on the left. Changes between the two most recent orders are indicated.) Start date and time 02/26/2020 1800 02/23/2020 1800 02/22/2020 1800 TPN Adult [[id number]] TPN Adult [[id number]] TPN Adult [[id number]] Order Status Active Discontinued Last Admin New [...] of this encounter: 54.9 kg (121 lb). Swiss Body Weight: 63.8 kg Usual Body Weight: [...] 9.6 oz) Assessment: Estimated needs: Calories: 25-30 (9744-4453 kcal/kg) Protein: 2 grams (115g/kg) Nutrition Focused Physical Exam (NFPE): Performed on 02/19/20. Subcutaneous fat loss at Orbital region: Mild Upper arm region (triceps/biceps): Mild Thoracic and lumbar region (ribs, lower back and maxillary line): Mild Lean muscle loss to Sikh region (temporalis muscle): Moderate Clavicle bone region [...] up while inpatient. ZAIRA RONDON RD Pager #:[phone] * Roselia Castro PA - 02/27/2020 10:25 [...] positive stool cultures Continue to work with land developer PLAN: Neuro: pain control: tylenol and tramadol prn, lidoderm patch Card: HDS, Monitor vital signs, [id number], statin, Toprol XL Pulm: albuterol, ambulation, IS [...] may require infusion therapy. Request referral to [place], [place] for possible tube feeds if going home or . Expected date of discharge: 03/01. Patient will require teaching. Referral routed to the Gambling [employer] for matching with agency/vendor and to provide [...] was able to discuss plan with provider [id number]. Nutrition Support: TPN Medication Recent History (Show up to 3 orders; newest on the left. Changes between the two most recent orders are indicated.) Start date and time 02/26/2020 1800 02/23/2020 1800 02/22/2020 1800 TPN Adult [[id number]] TPN Adult [[id number]] TPN Adult [[id number]] Order Status Active Active Discontinued Last Admin [...] of this encounter: 54.9 kg (121 lb). Swiss Body Weight: 63.8 kg Usual Body Weight: [...] 9.6 oz) Assessment: Estimated needs: Calories: 25-30 (6552-1098 kcal/kg) Protein: 2 grams (115g/kg) Nutrition Focused Physical Exam (NFPE): Performed on 02/19/20. Subcutaneous fat loss at Orbital region: Mild Upper arm region (triceps/biceps): Mild Thoracic and lumbar region (ribs, lower back and maxillary line): Mild Lean muscle loss to Sikh region (temporalis muscle): Moderate Clavicle bone region [...] up while inpatient. ZAIRA RONDON RD Pager #:[phone] * Roselia Castro PA - 02/26/2020 10:08 [...] lidoderm patch Card: HDS, Monitor vital signs, [id number], statin, Toprol XL Pulm: albuterol, ambulation, IS [...] Inpatient NAHID CROWELL 02/26/2020 * Ana Dias - 02/25/2020 8:24 AM EDT Urology Inpatient [...] pain control: tylenol, tramadol, lidoderm patch Card: S, Monitor vital signs, [id number] Pulm: albuterol, ambulation, ISC, cough, deep breathing [...] Discharge: None Electronically signed: Wally Martínez RN, Community Relations Assistant Pgr: [phone] 02/24/2020 2:11 PM * Leigha [...] lidoderm patch Card: HDS, Monitor vital signs, [id number] Pulm: albuterol, ambulation, ISC, cough, deep breathing [...] of this encounter: 54.9 kg (121 lb). Swiss Body Weight: 142 lbs / 64.4 kg [...] line): Not assessed Lean muscle loss to Sikh region (temporalis muscle): None present Clavicle bone [...] up while inpatient Donte Sheffield RD Pager #:[phone] * Zaira Rondon RD - 02/23/2020 11:10 [...] 1800 02/22/2020 1800 02/21/2020 1800 TPN Adult [[id number]] TPN Adult [[id number]] TPN Adult [[id number]] Order Status Active Active Last Admin New [...] of this encounter: 54.9 kg (121 lb). Swiss Body Weight: 63.8 kg Usual Body Weight: [...] 9.6 oz) Assessment: Estimated needs: Calories: 25-30 (0097-7896 kcal/kg) Protein: 2 grams (115g/kg) Nutrition Focused Physical Exam (NFPE): Performed on 02/19/20. Subcutaneous fat loss at Orbital region: Mild Upper arm region (triceps/biceps): Mild Thoracic and lumbar region (ribs, lower back and maxillary line): Mild Lean muscle loss to Sikh region (temporalis muscle): Moderate Clavicle bone region [...] up while inpatient. ZAIRA RONDON RD Pager #:[phone] * Juventino Elena MD - 02/23/2020 7:22 [...] lidoderm patch Card: HDS, Monitor vital signs, [id number] Pulm: albuterol, ambulation, ISC, cough, deep breathing [...] 2:37 PM EDT OFFICE OF CARE MANAGEMENT Community Relations Assistant Follow-up Note Lizbeth Abdi RN reviewed record [...] in place: Mani Martinez for RN Transportation: Friend ketty will drive patient home via private vehicle when medically ready. Community Relations Assistant to follow with team and family to assist with discharge needs when patient ready for discharge. Lizbeth Abdi RN Case Management pgr [phone] * Zaira Rondon, RD - 02/22/2020 10:23 AM EDT Nutrition [...] 1800 02/21/2020 1800 02/20/2020 1800 TPN Adult [[id number]] TPN Adult [[id number]] TPN Adult [[id number]] Order Status Active Active Last Admin New [...] of this encounter: 54.9 kg (121 lb). Swiss Body Weight: 63.8 kg Usual Body Weight: [...] 9.6 oz) Assessment: Estimated needs: Calories: 25-30 (5541-4807 kcal/kg) Protein: 2 grams (115g/kg) Nutrition Focused Physical Exam (NFPE): Performed on 02/19/20. Subcutaneous fat loss at Orbital region: Mild Upper arm region (triceps/biceps): Mild Thoracic and lumbar region (ribs, lower back and maxillary line): Mild Lean muscle loss to Sikh region (temporalis muscle): Moderate Clavicle bone region [...] up while inpatient. ZAIRA RONDON RD Pager #:[phone] * La Jean-Baptiste MD - 02/22/2020 6:05 [...] Calorie counts Begin nitazoxanide upon arrival to [facility] Will remove ureteral stents following 120mg gentamicin PLAN: Neuro: pain control: tylenol, tramadol, lidoderm patch Card: HDS, Monitor vital signs, [id number] Pulm: albuterol, ambulation, ISC, cough, deep breathing [...] was able to discuss plan with provider 5981. Nutrition Support: TPN Medication Recent History (Show up to 3 orders; newest on the left. Changes between the two most recent orders are indicated.) Start date and time 02/21/2020 1800 02/20/2020 1800 02/19/2020 1800 TPN Adult [[id number]] TPN Adult [[id number]] TPN Adult [[id number]] Order Status Active Active Discontinued Last Admin [...] encounter: 53.6 kg (118 lb 3.2 oz). Swiss Body Weight: 63.8 kg Usual Body Weight: [...] 9.6 oz) Assessment: Estimated needs: Calories: 25-30 (9526-1196 kcal/kg) Protein: 2 grams (115g/kg) Nutrition Focused Physical Exam (NFPE): Performed on 02/19/20. Subcutaneous fat loss at Orbital region: Mild Upper arm region (triceps/biceps): Mild Thoracic and lumbar region (ribs, lower back and maxillary line): Mild Lean muscle loss to Sikh region (temporalis muscle): Moderate Clavicle bone region [...] (Bibiana, JPEN J Parenteral Enteral Nutr. 2012 May; 36(3): 273-83) Nutrition to continue to follow up while inpatient. ZAIRA RONDON RD Pager #:[phone] * Claudio Neal MD - 02/21/2020 7:16 [...] fall off a doroteo[place] 1990 [place] he woke up during the procedure [...] CT Guided Biopsy Lymph Node (Chest/Abd/Pelvis) 01/31/2020 [facility] RAD CAT SCAN ??? HIP FRACTURE SURGERY Right 1991 ??? INGUINAL HERNIA REPAIR Right ??? IR MEDIPORT PLACEMENT/EXCHANGE 11/27/2019 IR Mediport Placement 11/27/2019 Jason Lujan, PA [facility] INTERVENTIONL RAD ??? PRO CYSTECTOMY, ILEAL CONDUIT/SIGMOID BLADDER N/A 02/13/2020 @CYSTECTOMY, COMPLETE, WITH ILEAL CONDUIT (WRVU 36.33) performed by Nima Armstrong MD at [facility] LYNETTE ??? PRO NEEDLE BIOPSY LIVER N/A 02/13/2020 LIVER BIOPSY performed by Nima Armstrong MD at [facility] MAIN OR ??? PRO REMOVE PELVIS LYMPH NODES Bilateral 02/13/2020 @LYMPHADENECTOMY, PELVIC, INCLUDING MULTIPLE NODES-FELA (WRVU 14.06) performed by Nima Armstrong MDat [facility] MAIN OR Social History Socioeconomic History ??? [...] file Gets together: Not on file Attends mandaeism service: Not on file Active member of [...] No drug use. He grew up in [facility] [facility] [place] and finished 11th grade. 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 He is and has 3 children, 2 live in [place] and one daughter in the [employer] in [facility]; he has limited contact with them. His brother David age 66 [address] but has significant health challenges as well. He has a [facility] embedded case manager, Ketty Ricketts who is also [...] Resp: [16-22] SpO2 SpO2: [94 %-95 %] IO 02/19 0701 - 02/20 0700 In: 2619 [...] Type DARYN Drain Giardia antigen ([facility]/APD) Specimen: Stool Result Value Ref Range Giardia Screen Negative Negative Cryptosporidium Oocyst Antigen ([facility]/APD) Specimen: Stool Result Value Ref Range Cryptosporidium Screen Positive (A) Negative Lactate, whole blood, send to lab ([facility]) Result Value Ref Range Lactate [...] Type DARYN Drain Giardia antigen ([facility]/P/APD) Specimen: Stool Result Value Ref Range Giardia Screen Negative Negative Cryptosporidium Oocyst Antigen ([facility]/APD) Specimen: Stool Result Value Ref Range Cryptosporidium Screen Positive (A) Negative Lactate, whole blood, send to lab ([facility]) Result Value Ref Range Lactate [...] for 14 days (this should arrive to [facility] tomorrow) Goals for today: OOB walk x4 daily Calorie counts BIT re-engage PLAN: Neuro: pain control: tylenol, tramadol, lidoderm patch Card: HDS, Monitor vital signs, [id number] Pulm: albuterol, ambulation, ISC, cough, deep breathing [...] encounter: 53.6 kg (118 lb 3.2 oz). Swiss Body Weight: 142 lbs / 64.4 kg [...] line): Not assessed Lean muscle loss to Sikh region (temporalis muscle): None present Clavicle bone region (pectoralis major): Moderate Dorsal hand (interosseous muscle): None present Shoulder (deltoid): Moderate Scapular bone region (latissimus dorsi, trapezius muscles): Not assessed Thigh region (quadriceps muscle): Moderate Posterior calf region (gastrocnemius muscle): Moderate Fluid accumulation: Not assessed Nutrition intake and intake history/Interview: ensure at bedside. Ensure and IC also 1/ consumed. Pt declined enjoying ensure. Pt declined [...] up while inpatient Donte Sheffield RD Pager #:[phone] * Zaira Rondon RD - 02/20/2020 10:23 [...] was able to discuss plan with provider 4947. Nutrition Support: TPN Medication Recent History (Show up to 3 orders; newest on the left. Changes between the two most recent orders are indicated.) Start date and time 02/20/2020 1800 02/19/2020 1800 TPN Adult [[id number]] TPN Adult [[id number]] Order Status Active Active Last Admin New [...] encounter: 53.6 kg (118 lb 3.2 oz). Swiss Body Weight: 63.8 kg Usual Body Weight: [...] 9.6 oz) Assessment: Estimated needs: Calories: 25-30 (2472-8400 kcal/kg) Protein: 2 grams (115g/kg) Nutrition Focused Physical Exam (NFPE): Performed on 02/19/20. Subcutaneous fat loss at Orbital region: Mild Upper arm region (triceps/biceps): Mild Thoracic and lumbar region (ribs, lower back and maxillary line): Mild Lean muscle loss to Sikh region (temporalis muscle): Moderate Clavicle bone region [...] up while inpatient. ZAIRA RONDON RD Pager #:[phone] * Claudio Neal MD - 02/20/2020 7:12 [...] has been stable over last few days (~0843-0089). - Imodium has not been started for [...] fall off a doroteo) in 1990 [place] he woke up during the procedure [...] CT Guided Biopsy Lymph Node (Chest/Abd/Pelvis) 01/31/2020 [facility] RAD CAT SCAN ??? HIP FRACTURE SURGERY Right 1991 ??? INGUINAL HERNIA REPAIR Right ??? IR MEDIPORT PLACEMENT/EXCHANGE 11/27/2019 IR Mediport Placement 11/27/2019 Jason Lujan, NAHID [facility] INTERVENTIONL RAD ??? PRO CYSTECTOMY, ILEAL CONDUIT/SIGMOID BLADDER N/A 02/13/2020 @CYSTECTOMY, COMPLETE, WITH ILEAL CONDUIT (WRVU 36.33) performed by Nima Armstrong MD at [facility] LYNETTE ??? PRO NEEDLE BIOPSY LIVER N/A 02/13/2020 LIVER BIOPSY performed by Nima Armstrong MD at [facility] MAIN OR ??? PRO REMOVE PELVIS LYMPH NODES Bilateral 02/13/2020 @LYMPHADENECTOMY, PELVIC, INCLUDING MULTIPLE NODES-FELA (WRVU 14.06) performed by Nima Armstrong MDat [facility] MAIN OR Social History Socioeconomic History ??? [...] file Gets together: Not on file Attends mandaeism service: Not on file Active member of [...] No drug use. He grew up in [place] [place] and finished 11th grade. 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 He is and has 3 children, 2 live in [place] and one daughter in the [employer] in [facility]; he has limited contact with them. His brother David age 66 [address] but has significant health challenges as well. He has a [employer] [facility] embedded case manager, Ketty Ricketts who is also [...] Drain Lactate, whole blood, send to lab ([facility]) Result Value Ref Range Lactate [...] Drain Lactate, whole blood, send to lab ([facility]) Result Value Ref Range Lactate [...] lidoderm patch Card: HDS, Monitor vital signs, [id number] Pulm: albuterol, ambulation, ISC, cough, deep breathing [...] Brisa Villalta RN Acute Pain Service Beeper [phone] * Lizbeth Abdi RN - 02/19/2020 1:46 PM EDT OFFICE OF CARE MANAGEMENT Community Relations Assistant Follow-up Note Lizbeth Abdi RN reviewed record [...] ifmedically ready. Current Referral in place: Mani SOUZAA routed and orders pended. Transportation: Tray Hdez will drive patient home via private vehicle when medically ready. Support: Tray Hdez Community Relations Assistant to follow with team and family to assist with discharge needs when patient ready for discharge. Lizbeth Abdi RN Case Management pgr [phone] * Zaira Rondon, GLORIA - 02/19/2020 1:17 PM EDT Nutrition Progress Note Patient s/p from a cystoprostatectomy with ileal conduit for MIBC Wally Aguilar is a 69 y.o. male Reason for intervention: TPN Comments: TPN to provide full nutrition of 1460 calores and 115 g protein in 2.4 liters I was able to discuss plan with provider [id number]. Nutrition Support: TPN Medication Recent History (Show up to 3 orders; newest on the left.) Start date and time 02/19/2020 1800 TPN Adult [[id number]] Order Status Active Additives adult multivitamin 10 [...] encounter: 53.6 kg (118 lb 3.2 oz). Swiss Body Weight: 63.8 kg Usual Body Weight: [...] 9.6 oz) Assessment: Estimated needs: Calories: 25-30 (6561-5040 kcal/kg) Protein: 2 grams (115g/kg) Nutrition Focused Physical Exam (NFPE): Performed on 02/19/20. Subcutaneous fat loss at Orbital region: Mild Upper arm region (triceps/biceps): Mild Thoracic and lumbar region (ribs, lower back and maxillary line): Mild Lean muscle loss to Sikh region (temporalis muscle): Moderate Clavicle bone region [...] up while inpatient. ZAIRA RONDON RD Pager #:[phone] * Dariela Fitch MD - 02/19/2020 12:27 [...] Drain Lactate, whole blood, send to lab ([facility]) Result Value Ref Range Lactate [...] tylenol, tramadol, Card: HDS, Monitor vital signs, [id number] Pulm: albuterol, ambulation, ISC, cough, deep breathing [...] Text Report Department: Vascular Surgery Lab Patient: [id number] (WALLY AGUILAR) CPT: 51509 ICD10: I70.211;I73.9;C79.89;C67.9 Referring Physician: NIMA ARMSTRONG Indications: [...] Waveform Brachial Artery 86 Common Femoral Artery [place]-Biphasic Popliteal Artery [place]-Biphasic Dorsalis Pedis (Ankle) Artery 61 0.71 [place]-Biphasic Posterior Tibial (Ankle) Artery 73 0.85 [place]-Biphasic Interpretation: RIGHT: Moderately severe lower extremity arterial [...] Brachial Artery ?86 ? Common Femoral Artery ?[place]- Biphasic ?? Popliteal Artery ? [place]-Biphasic ?? Dorsalis Pedis (Ankle) Artery ?61 ?0.71 ??[place]- Biphasic ?? Posterior Tibial (Ankle) Artery ??73 ?0.85 ??[place]-Biphasic ? Interpretation: ?? RIGHT: Moderately severe lower [...] encounter: 58.7 kg (129 lb 8 oz). Swiss Body Weight: 142 lbs / 64.4 kg [...] line): Not assessed Lean muscle loss to Sikh region (temporalis muscle): None present Clavicle bone region (pectoralis major): Moderate Dorsal hand (interosseous muscle): None present Shoulder (deltoid): Moderate Scapular bone region (latissimus dorsi, trapezius muscles): Not assessed Thigh region (quadriceps muscle): Moderate Posterior calf region (gastrocnemius muscle): Moderate Fluid accumulation: Not assessed Nutrition intake and intake history/Interview: Visited patient at bedside who appeared lethargic. 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 Patient [...] up while inpatient Fifi Price RD Pager #:[phone] * Dariela Fitch MD - 02/16/2020 12:15 [...] Result Value Ref Range Surgical Pathology Report [id number] Location: OR; OR28; A The signing pathologist has (i) examined the relevant preparation(s) for the specimen(s) and (ii) rendered or confirmed the diagnosis(es). . Frozen Section FROZEN SECTION DIAGNOSIS CFS - Right distal ureter: Urothelial atypia; deeper levels were obtained. - JASON 02/13/20 12:33 Electronically signed by: Trae Hoang MD Verified: 02/13/2020 Pathologist Performed at: -[facility] Dept. of Pathology, [place], [place] This intraoperative consultation should be interpreted as a preliminary diagnosis pending review of the entire specimen and special studies, if any. Frozen Section FROZEN SECTION DIAGNOSIS BFS - Left distal ureter: Urothelial atypia, cannot exclude dysplasia. - JLG 02/13/20 11:43 Electronically signed by: Trae Hoang MD Verified: 10/2019 Pathologist Performed at: -[facility] Dept. of Pathology, [place], [place] This intraoperative consultation should be interpreted as a preliminary diagnosis pending review of the entire specimen and special studies, if any. Frozen Section FROZEN SECTION DIAGNOSIS - AFS1 Liver mass: Calcified nodule, negative for cancer 02/13/20 11:07 Electronically signed by: Guero Faye MD Verified: 02/13/2020 Pathologist Performed at: -[facility] Dept. of Pathology, [place], [place] This intraoperative consultation should be interpreted [...] Text Report Department: Vascular Surgery Lab Patient: [id number] (WALLY AGUILAR) CPT: 71412 ICD10: I70.211;I73.9;C79.89;C67.9 Referring Physician: NIMA ARMSTRONG Indications: [...] Waveform Brachial Artery 86 Common Femoral Artery [place]-Biphasic Popliteal Artery [place]-Biphasic Dorsalis Pedis (Ankle) Artery 61 0.71 [place]-Biphasic Posterior Tibial (Ankle) Artery 73 0.85 [place]-Biphasic Interpretation: RIGHT: Moderately severe lower extremity arterial [...] Brachial Artery ?86 ? Common Femoral Artery ?[place]- Biphasic ?? Popliteal Artery ? [place]-Biphasic ?? Dorsalis Pedis (Ankle) Artery ?61 ?0.71 ??[place]- Biphasic ?? Posterior Tibial (Ankle) Artery ??73 ?0.85 ??[place]-Biphasic ? Interpretation: ?? RIGHT: Moderately severe lower [...] intake and continue to monitor. Will resume [id number] home medication given extensive PVD. Goals for [...] Narrative:Visited to introduce and assess acceptance of Stained Glass Painter services. Pt was awake, alert, oriented and in bed. Assessment:Patient coping positively with stresses of illness/hospitalization at this time. Pt saysthat he is hoping to get better and go home and pt requested RN who came to help. Outcome:Stained Glass Painter services accepted.Conversation to build trusting relationship.Provided pastoral [...] of care, and assist with discharge planning. Community Relations Assistant: Miller Bartlett Pager [phone] * Nima Bhatia MD - 02/15/2020 9:51 [...] Result Value Ref Range Surgical Pathology Report [id number] Location: OR; OR28; A The signing pathologist has (i) examined the relevant preparation(s) for the specimen(s) and (ii) rendered or confirmed the diagnosis(es). . Frozen Section FROZEN SECTION DIAGNOSIS CFS - Right distal ureter: Urothelial atypia; deeper levels were obtained. - [facility] 02/13/20 12:33 Electronically signed by: Trae Hoang MD Verified: 02/13/2020 Pathologist Performed at: -[facility] Dept. of Pathology, [place], [place] This intraoperative consultation should be interpreted as a preliminary diagnosis pending review of the entire specimen and special studies, if any. Frozen Section FROZEN SECTION DIAGNOSIS BFS - Left distal ureter: Urothelial atypia, cannot exclude dysplasia. - [facility] 02/13/20 11:43 Electronically signed by: Trae Hoang MD Verified: 10/2019 Pathologist Performed at: -[facility] Dept. of Pathology, [place], [place] This intraoperative consultation should be interpreted as a preliminary diagnosis pending review of the entire specimen and special studies, if any. Frozen Section FROZEN SECTION DIAGNOSIS - AFS1 Liver mass: Calcified nodule, negative for cancer 02/13/20 11:07 Electronically signed by: Guero Faye MD Verified: 02/13/2020 Pathologist Performed at: -[facility] Dept. of Pathology, [place], [place] This intraoperative consultation should be interpreted [...] Text Report Department: Vascular Surgery Lab Patient: [id number] (WALLY AGUILAR) CPT: 43707 ICD10: I70.211;I73.9;C79.89;C67.9 Referring Physician: NIMA ARMSTRONG Indications: [...] Waveform Brachial Artery 86 Common Femoral Artery [place]-Biphasic Popliteal Artery [place]-Biphasic Dorsalis Pedis (Ankle) Artery 61 0.71 [place]-Biphasic Posterior Tibial (Ankle) Artery 73 0.85 [place]-Biphasic Interpretation: RIGHT: Moderately severe lower extremity arterial [...] Yes Recent Labs 02/15/20 0545 02/15/20 04202/14/20 01502/13/20 17502/13/20 0705 WBC 6.4 6.5 11.6* 9.9* [...] Brachial Artery ?86 ? Common Femoral Artery ?[place]- Biphasic ?? Popliteal Artery ? [place]-Biphasic ?? Dorsalis Pedis (Ankle) Artery ?61 ?0.71 ??[place]- Biphasic ?? Posterior Tibial (Ankle) Artery ??73 ?0.85 ??[place]-Biphasic ? Interpretation: ?? RIGHT: Moderately severe lower [...] Result Value Ref Range Surgical Pathology Report [id number] Location: OR; OR28; A The signing pathologist has (i) examined the relevant preparation(s) for the specimen(s) and (ii) rendered or confirmed the diagnosis(es). . Frozen Section FROZEN SECTION DIAGNOSIS CFS - Right distal ureter: Urothelial atypia; deeper levels were obtained. - [facility] 02/13/20 12:33 Electronically signed by: Trae Hoang MD Verified: 02/13/2020 Pathologist Performed at: -[facility] Dept. of Pathology, [place], [place] This intraoperative consultation should be interpreted as a preliminary diagnosis pending review of the entire specimen and special studies, if any. Frozen Section FROZEN SECTION DIAGNOSIS BFS - Left distal ureter: Urothelial atypia, cannot exclude dysplasia. - [facility] 02/13/20 11:43 Electronically signed by: Trae Hoang MD Verified: 10/2019 Pathologist Performed at: -[facility] Dept. of Pathology, [place], [place] This intraoperative consultation should be interpreted as a preliminary diagnosis pending review of the entire specimen and special studies, if any. Frozen Section FROZEN SECTION DIAGNOSIS - AFS1 Liver mass: Calcified nodule, negative for cancer 02/13/20 11:07 Electronically signed by: Guero Faye MD Verified: 02/13/2020 Pathologist Performed at: -[facility] Dept. of Pathology, [place], [place] This intraoperative consultation should be interpreted [...] resident camilo stokes MD its mostly irrigant 1830: Hemoglobin came back at 8.5 and critical Ca at 6.9, pager [phone] made aware 1907: patient reporting right leg pain, pager [phone] made aware 1910: Oscar at bedside for [...] Allergies reviewed: Yes Source Note - Melissa Barba, ANTON - 02/27/2020 3:56 PM EDT Images [...] fall off a doroteo) in 1990 [place] he woke up during the procedure [...] CT Guided Biopsy Lymph Node (Chest/Abd/Pelvis) 01/31/2020 [facility] RAD CAT SCAN ??? HIP FRACTURE SURGERY Right 1991 ??? INGUINAL HERNIA REPAIR Right ??? IR MEDIPORT PLACEMENT/EXCHANGE 11/27/2019 IR Mediport Placement 11/27/2019 Jason Lujan, NAHID [facility] INTERVENTIONL RAD ??? PRO CYSTECTOMY, ILEAL CONDUIT/SIGMOID BLADDER N/A 02/13/2020 @CYSTECTOMY, COMPLETE, WITH ILEAL CONDUIT (WRVU 36.33) performed by Nima Armstrong MD at [facility] LYNETTE ??? PRO NEEDLE BIOPSY LIVER N/A 02/13/2020 LIVER BIOPSY performed by Nima Armstrong MD at [facility] MAIN OR ??? PRO REMOVE PELVIS LYMPH NODES Bilateral 02/13/2020 @LYMPHADENECTOMY, PELVIC, INCLUDING MULTIPLE NODES-FELA (WRVU 14.06) performed by Nima Armsrtong MDat [facility] MAIN OR Medications: Scheduled Meds: ??? azithromycin [...] file Gets together: Not on file Attends mandaeism service: Not on file Active member of [...] No drug use. He grew up in [facility] [facility] [place] and finished 11th grade. 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 He is and has 3 children, 2 live in [place] and one daughter in [employer] in [facility]; he has limited contact with them. His brother David age 66 [address] but has significant health challenges as well. He has a [employer] embedded case manager, Kettyargentina Ricketts who is also his landlord and [...] needed: No Consent: Pending 02/27/2020 * Melissa Barba, PROMOTIONAL MARKETING ANALYST - 02/27/2020 3:56 PM EDT Images from [...] fall off a doroteo) in 1990 in [place] he woke up during the procedure [...] CT Guided Biopsy Lymph Node (Chest/Abd/Pelvis) 01/31/2020 [facility] RAD CAT SCAN ??? HIP FRACTURE SURGERY Right 1991 ??? INGUINAL HERNIA REPAIR Right ??? IR MEDIPORT PLACEMENT/EXCHANGE 11/27/2019 IR Mediport Placement 11/27/2019 Jason Lujan, NAHID [facility] INTERVENTIONL RAD ??? PRO CYSTECTOMY, ILEAL CONDUIT/SIGMOID BLADDER N/A 02/13/2020 @CYSTECTOMY, COMPLETE, WITH ILEAL CONDUIT (WRVU 36.33) performed by Nima Armstrong MD at [facility] LYNETTE ??? PRO NEEDLE BIOPSY LIVER N/A 02/13/2020 LIVER BIOPSY performed by Nima Armstrong MD at [facility] MAIN OR ??? PRO REMOVE PELVIS LYMPH NODES Bilateral 02/13/2020 @LYMPHADENECTOMY, PELVIC, INCLUDING MULTIPLE NODES-FELA (WRVU 14.06) performed by Nima Armstrong MDat [facility] MAIN OR Medications: Scheduled Meds: ??? azithromycin [...] file Gets together: Not on file Attends mandaeism service: Not on file Active member of [...] No drug use. He grew up in [place] [facility] and finished 11th grade. 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 He is and has 3 children, 2 live in [place] and one daughter in the [employer] in [facility]; he has limited contact with them. His brother David age 66 [address] but has significant health challenges as well. He has a [employer] [facility] embedded case manager, Ketty Ricketts who is also [...] Port-a-Cath is due for the Monthly flush by__[facility] Your Port-a-Cath should be accessed and flushed [...] 14.06) (Bilateral) LIVER BIOPSY (N/A) Appliance: Removed Warren 1 3/4 with adapt ring and replaced [...] RN, CWOCN 03/07/2020 Enterostomal Therapy Team Pager #[phone] * Plan of Care - Wendy King [...] vascular disease, and asthma who presented to [facility] for cystoprostatectomy with ileal conduit on 02/12. [...] remote recall grossly intact Language Fluent in Spanish without paraphasic errors. Non-profane Fund of Knowledge [...] vascular disease, and asthma who presented to [facility] for cystoprostatectomy with ileal conduit on 02/12. [...] IU vitamin D2 - page Consult Psychiatry (#[phone]) for any additional questions or concerns Recommendations were communicated to primary front desk team member. Coding Determination Complexity of MDM Determination: Alirio [...] EXAM MDM LAUREN/CPT CODE PF PF Straightforward/Low 3005/77938 EPF EPF Moderate 3015/71977 x D x D x High x 3025/35379 Associated attestation - Keshia Johnson MD - [...] documented. Keshia Johnson MD Psychiatry Consultation Pager: [phone] * Plan of Care - Danie Callahan [...] EDT Psychiatry Behavioral Intervention Team (BIT) BRITTNI KANGW attempted to engage with pt. Pt was withdrawn and uncommunicative. He stated that he was struggling with acid reflux , but that he would be open to a follow up with telegraphic typewriter mechanic later in the week. Sustainability Coordinator agreed to try and meet with him again on Wednesday or . BRITTNI AGUILA will continue to follow and remains available to patient/staff as needed MINGO Khalil [phone] Pager [phone] * Consult Note - Zofia Ahuja MD [...] due to taste and swallowing issues, but STAFFING BRANCH MANAGER did not find mechanical issues with swallowing. [...] fall off a doroteo) in 1990 in [place] he woke up during the procedure [...] ??? tube feeding diet 1,680 mL (03/05/20 3599) calcium carbonate, acetaminophen, phenol 1.4%, prochlorperazine, sodium [...] file Gets together: Not on file Attends mandaeism service: Not on file Active member of [...] No drug use. He grew up in [place] [facility] and finished 11th grade. 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 He is and has 3 children, 2 live in [place] and one daughter in [place] [employer] in [facility]; he has limited contact with them. His brother David age 66 [address] but has significant health challenges as well. He has a [employer] embedded case manager, Ketty Ricketts who is also [...] need outpatient motility evaluation. Agree with continued STAFFING BRANCH MANAGER and Nutrition involvement. Chato York MD Section of Gastroenterology [facility] * Plan of Care - Derik-Jono Medel [...] 14.06) (Bilateral) LIVER BIOPSY (N/A) Appliance: Removed Warren 1 09/12 with adapt ring and replaced with same Changed: [x} Yes Stoma: red, moist, protrudes and measures irregular shape 1 07/15 Peristomal Skin: intact and healthy [...] vascular disease, and asthma who presented to [facility] for cystoprostatectomy with ileal conduit on 02/12. [...] remote recall grossly intact Language Fluent in Spanish without paraphasic errors. Non-profane Fund of Knowledge [...] vascular disease, and asthma who presented to [facility] for cystoprostatectomy with ileal conduit on 02/12. [...] continue to follow - page Consult Psychiatry (#[phone]) for any additional questions or concerns Recommendations were communicated to primary front desk team member. Coding Determination Complexity of MDM Determination: Alirio [...] EXAM MDM LAUREN/CPT CODE PF PF Straightforward/Low 3005/82841 EPF EPF Moderate 3015/27768 x D x D x High x 3025/95524 Associated attestation - Odilon Negrete MD - 03/11/2020 3:58 PM EDT Psychiatry Attending Note I discussed this patient's situation with the resident but did not see the patient. I contributed to the formulation and treatment planning as documented in the resident's note. Odilon Negrete MD Psychiatry Consultation Pager: [phone] * Plan of Care - Mg Perez [...] D/C planning ?? INDIVIDUALIZED FALL PREVENTION INTERVENTIONS: [place] Risk ? Patient-specific fall risk factors per [...] D/c planning ?? INDIVIDUALIZED FALL PREVENTION INTERVENTIONS: [place] Risk ? Patient-specific fall risk factors per [...] vascular disease, and asthma who presented to [facility] for cystoprostatectomy with ileal conduit on 02/12. [...] remote recall grossly intact Language Fluent in Spanish without paraphasic errors. Non-profane Fund of Knowledge [...] vascular disease, and asthma who presented to [facility] for cystoprostatectomy with ileal conduit on 02/12. [...] continue to follow - page Consult Psychiatry (#[phone]) for any additional questions or concerns Recommendations were communicated to primary front desk team member. Coding Determination Complexity of MDM Determination: Alirio [...] EXAM MDM LAUREN/CPT CODE PF PF Straightforward/Low 3005/10874 EPF EPF Moderate 3015/44106 x D x D x High x 3025/62732 * Plan of Care - Wendy King RN - 03/02/2020 5:43 PM EDT Problem: Patient Care Overview Goal: Plan of Care Review Outcome: Ongoing (Interventions Implemented as Appropriate) 03/02/20 7357 Plan of Care Review Progress progress toward [...] alkaseltzer which is not on formulary at [facility]. When asked if he wanted to wash [...] Outcome: Ongoing (Interventions Implemented as Appropriate) 03/01/20 5409 Plan of Care Review Progress progress toward [...] fall off a doroteo) in 1990 in [place] he woke up during the procedure [...] CT Guided Biopsy Lymph Node (Chest/Abd/Pelvis) 01/31/2020 [facility] RAD CAT SCAN ??? HIP FRACTURE SURGERY Right 1991 ??? INGUINAL HERNIA REPAIR Right ? IR MEDIPORT PLACEMENT/EXCHANGE ?? 11/27/2019 ?? IR Mediport Placement 11/27/2019 Jason Lujan, PA [facility] INTERVENTIONL RAD ??? PRO CYSTECTOMY, ILEAL CONDUIT/SIGMOID BLADDER N/A 02/13/2020 ?? @CYSTECTOMY, COMPLETE, WITH ILEAL CONDUIT (WRVU 36.33) performed by Nima Armstrong MD at [facility] MAIN OR ??? PRO NEEDLE BIOPSY LIVER N/A 02/13/2020 ?? LIVER BIOPSY performed by Nima Armstrong MD at [facility] MAIN OR ??? PRO REMOVE PELVIS LYMPH NODES Bilateral 02/13/2020 ?? @LYMPHADENECTOMY, PELVIC, INCLUDING MULTIPLE NODES-FELA (WRVU 14.06) performed by Nima Armstrong MD at [facility] MAIN OR ? Social History: Patient lives??with [...] pt's and therapy goals Anticipated Discharge Disposition: nursing home facility/swing bed Equipment Recommendations: TBD ?? Daily [...] Total Evaluation Minutes, Occupational Therapy: 23 Pager: [phone] ANTWON Ng Occupational Therapy Rehabilitation Department * [...] vascular disease, and asthma who presented to [facility] for cystoprostatectomy with ileal conduit on 02/12. [...] remote recall grossly intact Language Fluent in Spanish without paraphasic errors. Non-profane Fund of Knowledge [...] vascular disease, and asthma who presented to [facility] for cystoprostatectomy with ileal conduit on 02/12. [...] continue to follow - page Consult Psychiatry (#[phone]) for any additional questions or concerns Recommendations were communicated to primary front desk team member. Coding Determination Complexity of MDM Determination: Alirio [...] EXAM MDM LAUREN/CPT CODE PF PF Straightforward/Low 3005/62179 EPF EPF Moderate 3015/10069 x D x D x High x 3025/90123 Associated attestation - Odilon Negrete MD - 03/11/2020 3:59 PM EDT Psychiatry Attending Note I discussed this patient's situation with the resident but did not see the patient. I contributed to the formulation and treatment planning as documented in the resident's note. Odilon Negrete MD Psychiatry Consultation Pager: [phone] * Plan of Care - Flory Faulkner [...] ambulation D/C planning INDIVIDUALIZED FALL PREVENTION INTERVENTIONS: [place] Risk ? Patient-specific fall risk factors per [...] a friend has been staying with him, ??BANQUET BARTENDER pt was using a cane DME:cane Precautions/Special [...] continue ther-ex, repositioning, and to call for greenhouse staff assistance withall mobility. Assessment: Wally Aguilar was [...] BIT team and psych involved Equipment needs: [facility] Physical Therapy Goals: To be achieved by??03/08: [...] 25 TEF x 2 MILLER ALEXIS, PT Pager:[phone] Physical Therapy Inpatient Rehabilitation Department * Consult Note - Shelby Gilliland RN - 02/29/2020 12:03 PM EDT Inpatient post op note Diagnosis: Bladder Cancer Surgery/Date: 02/13/2020 Procedure(s) (LRB): @CYSTECTOMY, COMPLETE, WITH ILEAL CONDUIT (WRVU 36.33) (N/A) @LYMPHADENECTOMY, PELVIC, INCLUDING MULTIPLE NODES-FELA (WRVU 14.06) (Bilateral) LIVER BIOPSY (N/A) Appliance: Removed Naveen 1 3/ with adapt ring & replaced with same. [...] RN, CWOCN 02/29/2020 Enterostomal Therapy Team Pager #[phone] * Consult Note - Zachary Hurley Virgen [...] vascular disease, and asthma who presented to [facility] for cystoprostatectomy with ileal conduit on 02/12. [...] Patient does ask for milk while this telegraphic typewriter mechanic is at bedside, drinks part of it [...] remote recall grossly intact Language Fluent in Spanish without paraphasic errors. Non-profane Fund of Knowledge [...] vascular disease, and asthma who presented to [facility] for cystoprostatectomy with ileal conduit on 02/12. [...] continue to follow - page Consult Psychiatry (#[phone]) for any additional questions or concerns Recommendations were communicated to primary front desk team member. Coding Determination Complexity of MDM Determination: Alirio [...] EXAM MDM LAUREN/CPT CODE PF PF Straightforward/Low 3005/63534 EPF EPF Moderate 3015/07267 x D x D x High x 3025/18473 Associated attestation - Odilon Negrete MD - 03/11/2020 3:58 PM EDT Psychiatry Attending Note I discussed this patient's situation with the resident but did not see the patient. I contributed to the formulation and treatment planning as documented in the resident's note. Odilon Negrete MD Psychiatry Consultation Pager: [phone] * Plan of Care - Marcy Riojas RN - 02/29/2020 2:15 AM EDT Problem: Patient Care Overview Goal: Plan of Care Review Outcome: Ongoing (Interventions Implemented as Appropriate) 02/23/20 1700 02/28/20 6918 Plan of Care Review Progress progress toward [...] fall off a doroteo) in 1990 in [place] he woke up during the procedure [...] CT Guided Biopsy Lymph Node (Chest/Abd/Pelvis) 01/31/2020 [facility] RAD CAT SCAN ??? HIP FRACTURE SURGERY Right 1991 ??? INGUINAL HERNIA REPAIR Right ? IR MEDIPORT PLACEMENT/EXCHANGE ?? 11/27/2019 ?? IR Mediport Placement 11/27/2019 Jason Lujan PA [facility] INTERVENTIONL RAD ??? PRO CYSTECTOMY, ILEAL CONDUIT/SIGMOID BLADDER N/A 02/13/2020 ?? @CYSTECTOMY, COMPLETE, WITH ILEAL CONDUIT (WRVU 36.33) performed by Nima Armstrong MD at [facility] MAIN OR ??? PRO NEEDLE BIOPSY LIVER N/A 02/13/2020 ?? LIVER BIOPSY performed by Nima Armstrong MD at [facility] MAIN OR ??? PRO REMOVE PELVIS LYMPH NODES Bilateral 02/13/2020 ?? @LYMPHADENECTOMY, PELVIC, INCLUDING MULTIPLE NODES-FELA (WRVU 14.06) performed by Nima Armstrong MD at [facility] MAIN OR ? Social History: Patient lives??with [...] [facility] was issued a bedside commode for times when he knew he had to go but time was a concern. Pt will benefit from ongoing therapeutic interventions to achieve pt's and therapy goals Anticipated Discharge Disposition: nursing home facility/swing bed Equipment Recommendations: TBD ?? Daily [...] Total Evaluation Minutes, Occupational Therapy: 25 Pager: [phone] ANTWON Ng Occupational Therapy Rehabilitation Department * [...] vascular disease, and asthma who presented to [facility] for cystoprostatectomy with ileal conduit on 02/12. [...] fall off a doroteo) in 1990 [place] he woke up during the procedure [...] CT Guided Biopsy Lymph Node (Chest/Abd/Pelvis) 01/31/2020 [facility] RAD CAT SCAN ??? HIP FRACTURE SURGERY Right 1991 ??? INGUINAL HERNIA REPAIR Right ??? IR MEDIPORT PLACEMENT/EXCHANGE 11/27/2019 IR Mediport Placement 11/27/2019 Jason Lujan PA [facility] INTERVENTIONL RAD ??? PRO CYSTECTOMY, ILEAL CONDUIT/SIGMOID BLADDER N/A 02/13/2020 @CYSTECTOMY, COMPLETE, WITH ILEAL CONDUIT (WRVU 36.33) performed by Nima Armstrong MD at [facility] LYNETTE ??? PRO NEEDLE BIOPSY LIVER N/A 02/13/2020 LIVER BIOPSY performed by Nima Armstrong MD at [facility] MAIN OR ??? PRO REMOVE PELVIS LYMPH NODES Bilateral 02/13/2020 @LYMPHADENECTOMY, PELVIC, INCLUDING MULTIPLE NODES-FELA (WRVU 14.06) performed by Nima Armstrong MDat [facility] MAIN OR Medications: Current Facility-Administered Medications Medication [...] tablet 500 mg 500 mg Oral Q12H [facility] Nima Armstrong MD 500 mg at 02/27/20 [...] 3 mg 0.3 mL Subcutaneous Once PRN Enrriqeu Patten MD ??? traMADoL (Ultram) tablet 50 [...] GI: +nausea, diarrhea. Denies vomiting, abdominal pain. /FRAUD REPRESENTATIVE: n/a (s/p cystectomy) Endocrine: denies diaphoresis Musculoskeletal: denies arthralgia Integumentary: denies rash Neurological: denies FREEMAN, tremor, weakness/numbness Hematologic/Lymphatic: No easy bruising or bleeding Allergic/Immunologic: No seasonal allergies or frequent infections Psychiatric: See above Social History: Lives independently, but has a friend who has been staying over the last two months who has been helpful. 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 Has a brother and sister in the [...] ?? Appearance: age appropriate male, in hospital page hospital, appropriately groomed, sitting upright in chair. ?? Behavior: no abnormal movements, calm and cooperative, fully able to attend interview though appears quite tired and his eyes close at points during conversation. ?? Speech: spontaneous, conversational speech. Low volume. Prolonged latency at times. ?? Language: fluent in Spanish with no paraphasic errors. Non-profane ?? Mood: [...] vascular disease, and asthma who presented to [facility] for cystoprostatectomy with ileal conduit on 02/12. [...] continue to follow - page Consult Psychiatry (#[phone]) for any additional questions or concerns Recommendations were communicated to primary front desk team member. Coding Determination Complexity of MDM Determination: Alirio [...] CPT CODE PF PF Straightforward 3200 / 85896 EPF EPF Straightforward 3210 / 85268 D D Low 3220 / 35475 C C Moderate 3230 / 46648 x C x C x High x 3240 / 60063 Associated attestation - Odilon Negrete MD - [...] etc. Odilon Negrete MD Psychiatry Consultation Pager: [phone] * Consult Note - Clayton Norris MSW - 02/27/2020 1:16 PM EDT BIT Evaluation Referral source: Consult request by primary team physician Reason for referral: Other: coping, not interacting Relevant history: BIT PLASTICS PROCESS HAND met with pt in room as follow up to previous meeting to continue MH/coping assessment, and to explore how to best provide him with supportive services during this admission. Pt discussed withwriter his current mood and lack of appetite. He denied any notable depressed mood, although acknowledged being tired of being at [facility] and wanting to go home to see [...] to make an effort to eat more. Sustainability Coordinator discussed with pt the possibility of his meeting with psychiatry to explore possible options to help him feel more hopeful, engaged, and less tired. Pt stated that he would be open to doing so. Sustainability Coordinator explored with pt his current community supports. Pt identified his roommate as being his primary support, but also reported getting on well with his neighbours. He briefly discussed his familyas well, and reported having been visited by his sister over the weekend. Sustainability Coordinator discussed with pt reported plans for roommate to move out and get his own place. Pt was fairly noncommittal although acknowledged that he did enjoy the company. Sustainability Coordinator and pt engaged in brief test of attention/cognition with pt having to repeat back set s of numbers either forwards and backwards. Pt was able to repeat back correctly up to four digits forwards, but struggled with repeating back five in the correct order. He also struggled to repeat back three digits backwards in the correct order. Sustainability Coordinator ended session at this time as pt [...] flat affect, and difficulty with attention/cognitive test telegraphic typewriter mechanic has contacted urology team to recommend a [...] effort to eat meals provided 3) BRITTNI PLASTICS PROCESS HAND will follow up with pt later this [...] Wound Care Nurse Note Situation: Seeing Wally Mary Aguilar as a follow up for scrotal [...] Please contact Nuria Nixon RN on pager [phone] or the wound care team at [phone] or pager [phone] with skin and wound care concerns or [...] help him with mobility,toileting and self care ??BANQUET BARTENDER pt was using a cane DME:cane Precautions/Special [...] (Room air) ?? Pt in bed with greenhouse staff present when PT arrived, some nausea after [...] continue ther-ex, repositioning, and to call for greenhouse staff assistance withall mobility. Assessment: Wally Hernandez Jeff was seen today for physical therapy treatment [...] Physical Therapy: 37(functional mobility) GRAYSON DIMAS, PT Pager:[phone] Physical Therapy Inpatient Rehabilitation Department * Consult [...] Stoma: red, moist, protrudes and measures 1 1 Peristomal Skin: intact and healthy Teaching: reviewed [...] 10 Mental Status 0 Score 60 OTHER [place] Fall Risk High Goal: Infection Control Outcome: [...] help him with mobility,toileting and self care BANQUET BARTENDER pt was using a cane DME:cane Precautions/Special [...] mobility with FWW. Pt declining inpatientrehab stay,Pt/career development director will speak with his friend tomorrow. Pt needs a FWW and home health, / assist at discharge if friend able to [...] friend. Discussed with PA, resident, and career development director. Equipment needs: Rolling walker, Physical Therapy Goals: [...] TEF x 3 MILLER ALEXIS, PT Pager: [phone] Physical Therapy Inpatient Rehabilitation Department * Consult [...] fall off a doroteo) in 1990 [place] he woke up during the procedure [...] CT Guided Biopsy Lymph Node (Chest/Abd/Pelvis) 01/31/2020 [facility] RAD CAT SCAN ??? HIP FRACTURE SURGERY Right 1992 ??? INGUINAL HERNIA REPAIR Right ? IR MEDIPORT PLACEMENT/EXCHANGE ?? 11/27/2019 ?? IR Mediport Placement 11/27/2019 Jason Lujan PA [facility] INTERVENTIONL RAD ??? PRO CYSTECTOMY, ILEAL CONDUIT/SIGMOID BLADDER N/A 02/13/2020 ?? @CYSTECTOMY, COMPLETE, WITH ILEAL CONDUIT (WRVU 36.33) performed by Nima Armstrong MD at [facility] MAIN OR ??? PRO NEEDLE BIOPSY LIVER N/A 02/13/2020 ?? LIVER BIOPSY performed by Nima Armstrong MD at [facility] MAIN OR ??? PRO REMOVE PELVIS LYMPH NODES Bilateral 02/13/2020 ?? @LYMPHADENECTOMY, PELVIC, INCLUDING MULTIPLE NODES-FELA (WRVU 14.06) performed by Nima Armstrong MD at [facility] MAIN OR ? Social History: Patient lives??with [...] pt's and therapy goals Anticipated Discharge Disposition: nursing home facility/swing bed Equipment Recommendations: TBD ?? Daily [...] Total Evaluation Minutes, Occupational Therapy: 28(Schmx2) Pager: [phone] ANTWNO Mata Occupational Therapy Rehabilitation Department * Plan [...] 14.06) (Bilateral) LIVER BIOPSY (N/A) Appliance: Removed Warren 1 09/12 with adapt ring, replaced with [...] palpation. Midline incision well approximated and left HOT TOP LINER. DARYN draining serous fluid. Dressing dry and [...] ?? * Consult Note - Clayton Norris PLASTICS PROCESS HAND - 02/21/2020 3:52 PM EDT BIT Evaluation [...] open to follow up later this week. Sustainability Coordinator agreed to follow up with him either [...] and is actively participating in his care. Sustainability Coordinator will continue to discuss with pt impact of cur rent health status, so as to provide more thorough assessment and explore how best to provide supportive services at this time. Interventions delivered: Supportive therapy Plan: 1) Sustainability Coordinator will follow up with pt again later [...] fall off a doroteo) in 1990 [place] he woke up during the procedure [...] CT Guided Biopsy Lymph Node (Chest/Abd/Pelvis) 01/31/2020 [facility] RAD CAT SCAN ??? HIP FRACTURE SURGERY Right 1991 ??? INGUINAL HERNIA REPAIR Right ? IR MEDIPORT PLACEMENT/EXCHANGE ?? 11/27/2019 ?? IR Mediport Placement 11/27/2019 Jason Lujan, NAHID [facility] INTERVENTIONL RAD ??? PRO CYSTECTOMY, ILEAL CONDUIT/SIGMOID BLADDER N/A 02/13/2020 ?? @CYSTECTOMY, COMPLETE, WITH ILEAL CONDUIT (WRVU 36.33) performed by Nima Armstrong MD at [facility] MAIN OR ??? PRO NEEDLE BIOPSY LIVER N/A 02/13/2020 ?? LIVER BIOPSY performed by Nima Armstrong MD at [facility] MAIN OR ??? PRO REMOVE PELVIS LYMPH NODES Bilateral 02/13/2020 ?? @LYMPHADENECTOMY, PELVIC, INCLUDING MULTIPLE NODES-FELA (WRVU 14.06) performed by Nima Armstrong MD at [facility] MAIN OR ?? Social History: Patient lives [...] Total Evaluation Minutes, Occupational Therapy: 26(Schmx2) Pager: [phone] ANTWON Mata Occupational Therapy Rehabilitation Department * [...] fall off a doroteo) in 1990 [place] he woke up during the procedure [...] history of cancer Social History: Lives in [place], [place]. IN an older apartment building. Denies [...] 14.06) (Bilateral) LIVER BIOPSY (N/A) Appliance: Intact 09/12 with adapt ring. Changed: [x} No Stoma: [place], budded, round, blue and red stents in [...] Ongoing (Interventions Implemented as Appropriate) 02/18/20 1433 02/20/203 Plan of Care Review Progress progress towards [...] Please contact Nuria Nixon RN on pager [phone] or the wound care team at [phone] or pager [phone] with skin and wound care concerns or questions. * Consult Note - Annette Escamilla RN - 02/20/2020 1:49 PM EDT Inpatient post op note Diagnosis: Bladder Cancer Surgery/Date: Procedure(s) (LRB): @CYSTECTOMY, COMPLETE, WITH ILEAL CONDUIT (WRVU 36.33) (N/A) @LYMPHADENECTOMY, PELVIC, INCLUDING MULTIPLE NODES-FELA (WRVU 14.06) (Bilateral) LIVER BIOPSY (N/A) Appliance: Intact 1 3/4 w/adapt ring Changed: [x} No Stoma: [place], round, blue and red stent present, red [...] has been helping him for several months BANQUET BARTENDER pt was using a cane DME:cane Precautions/Special Considerations: fall, BUSINESS LIBRARIAN, ileal conduit, drain, IVs, RLE pain, flexiseal, [...] friend. Discussed with PA, resident, and career development director. Equipment needs: Rolling walker, pt has a [...] TEF x 2 MILLER ALEXIS, PT Pager: [phone] Physical Therapy Inpatient Rehabilitation Department * Plan [...] TPN infusing. Urostomy with low urine output, aware. DARYN [...] heartburn, team notified and IV protonix increased, STAFFING BRANCH MANAGER consulted. Pt continues with low PO intake, [...] hesitate to call the Ostomy Nurses at [phone]. Equipment: Company/Order Numbers Wet and dry soft cloth (paper towels) Plastic bag Pen, Scissors, stoma patter Appliance pouch Warren 1 09/12 #[id number] Wafer, Cera Plus Naveen 1 09/12 #28077 Protective powder Warren # 7906 Adapt Paste Warren # 95977 Nosting Skin Barrier Wipe [facility] # [id number] Barrier ring Warren # 7805 Barrier strips Coloplast # 149113 Night Drainage Garden Equipment Mechanic Bard #[id number] (catheter bag) OR [facility] night drainage container set #[id number] (hard plastic container) Procedure: 1. Wash Hands. [...] apply a dusting of Adapt protective powder. Loving off excess powder, or wafer will not [...] use; hang to dry. Change night drainage commercial collector once a month. * Consult Note - Annette Escamilla RN - 02/19/2020 6:03 PM EDT Images from the original note were not included. Inpatient post op note Diagnosis: Bladder Cancer Surgery/Date: 02/13/20 Procedure(s) (LRB): @CYSTECTOMY, COMPLETE, WITH ILEAL CONDUIT (WRVU 36.33) (N/A) @LYMPHADENECTOMY, PELVIC, INCLUDING MULTIPLE NODES-FELA (WRVU 14.06) (Bilateral) LIVER BIOPSY (N/A) Appliance: Removed Naveen 1 3/4 w/ ring and replaced with the same Changed: [x} Yes Stoma: Red, between 1/4 and 8 round, blue and red stents present, red [...] fall off a doroteo) in 1990 [place] he woke up during the procedure [...] CT Guided Biopsy Lymph Node (Chest/Abd/Pelvis) 01/31/2020 [facility] RAD CAT SCAN ??? HIP FRACTURE SURGERY Right 1991 ??? INGUINAL HERNIA REPAIR Right ??? IR MEDIPORT PLACEMENT/EXCHANGE 11/27/2019 IR Mediport Placement 11/27/2019 Jason Lujan, NAHID [facility] INTERVENTIONL RAD ??? PRO CYSTECTOMY, ILEAL CONDUIT/SIGMOID BLADDER N/A 02/13/2020 @CYSTECTOMY, COMPLETE, WITH ILEAL CONDUIT (WRVU 36.33) performed by Nima Armstrong MD at [facility] LYNETTE ??? PRO NEEDLE BIOPSY LIVER N/A 02/13/2020 LIVER BIOPSY performed by Nima Armstrong MD at [facility] MAIN OR ??? PRO REMOVE PELVIS LYMPH NODES Bilateral 02/13/2020 @LYMPHADENECTOMY, PELVIC, INCLUDING MULTIPLE NODES-FELA (WRVU 14.06) performed by Nima Armstrong MDat [facility] MAIN OR Social History Socioeconomic History ??? [...] file Gets together: Not on file Attends mandaeism service: Not on file Active member of [...] No drug use. He grew up in [place] [facility] and finished 11th grade. 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 He is and has 3 children, 2 live in [place] and one daughter in the [employer] in [facility]; he has limited contact with them. His brother David age 66 [address] but has significant health challenges as well. He has a [employer] [facility] embedded case manager, Ketty Ricketts who is also [...] SpO2 SpO2: [93 %-98 %] IO 02/17 0701 - 02/18 0700 In: 5925.4 [...] * Plan of Care - Jasper Vaughan, JOSE MANUEL - 02/19/2020 9:41 AM EDT Speech Therapy [...] at least 30 mins following No further STAFFING BRANCH MANAGER intervention is warranted while hospitalized. Speech Therapy Goals: (To be met by discharge) N/A Plan: Therapy Frequency: evaluation only Pt./family are in agreement with treatment plan. Total Evaluation Minutes, Speech Language Pathology: 25 Thank you for this consult with this patient. Please feel free to page me with any questions or concerns. Jasper Vaughan MS, [facility]-STAFFING BRANCH MANAGER Pager: [phone] Speech-Language Pathology Inpatient Rehabilitation Department * Plan [...] -- 0 Score -- -- 85 OTHER Telly Fall Risk -- -- High Restraint Interventions [...] sit up in chair for 30 minutes. [id number]: 500ml LR bolus given. C Dif. Negative. [...] anti-psychotic, sleep aids, anti-histamines), has sensory deficits ([place]OWER [place], wears glasses, tactile deficits), forgets limitations, problems [...] skin has already improved. Midline incision CDI, HOT TOP LINER, irvin intact. Low urine output from urostomy, [...] breathing. Patient reports the pain as 1/10, MD stokes, IV protonix ordered and given [...] 14.06) (Bilateral) LIVER BIOPSY (N/A) Appliance: Intact 09/12 w/ ring Changed: [x} No Stoma: [place], budded, edematous, red stent drips urine, blue [...] Outcome: Ongoing (Interventions Implemented as Appropriate) 02/15/20 21302/16/20 0023 Daily Care Interventions Self-Care Promotion independence [...] fall off a doroteo) in 1990 [place] he woke up during the procedure [...] CT Guided Biopsy Lymph Node (Chest/Abd/Pelvis) 01/31/2020 [facility] RAD CAT SCAN ??? HIP FRACTURE SURGERY Right 1991 ??? INGUINAL HERNIA REPAIR Right ??? IR MEDIPORT PLACEMENT/EXCHANGE 11/27/2019 IR Mediport Placement 11/27/2019 Jason Lujan PA [facility] INTERVENTIONL RAD ??? PRO CYSTECTOMY, ILEAL CONDUIT/SIGMOID BLADDER N/A 02/13/2020 @CYSTECTOMY, COMPLETE, WITH ILEAL CONDUIT (WRVU 36.33) performed by Nima Armstrong MD at [facility] LYNETTE ??? PRO NEEDLE BIOPSY LIVER N/A 02/13/2020 LIVER BIOPSY performed by Nima Armstrong MD at [facility] MAIN OR ??? PRO REMOVE PELVIS LYMPH NODES Bilateral 02/13/2020 @LYMPHADENECTOMY, PELVIC, INCLUDING MULTIPLE NODES-FELA (WRVU 14.06) performed by Nima Armstrong, MDat [facility] MAIN OR Social History: Patient lives with [...] and measurable assessment of functional outcome. Pager: [phone] Chantale Tavares OT 02/15/2020 Occupational Therapy Rehabilitation [...] fall off a doroteo) in 1990 [place] he woke up during the procedure [...] CT Guided Biopsy Lymph Node (Chest/Abd/Pelvis) 01/31/2020 [facility] RAD CAT SCAN ??? HIP FRACTURE SURGERY Right 1991 ??? INGUINAL HERNIA REPAIR Right ??? IR MEDIPORT PLACEMENT/EXCHANGE 11/27/2019 IR Mediport Placement 11/27/2019 Jason Lujan PA [facility] INTERVENTIONL RAD ??? PRO CYSTECTOMY, ILEAL CONDUIT/SIGMOID BLADDER N/A 02/13/2020 @CYSTECTOMY, COMPLETE, WITH ILEAL CONDUIT (WRVU 36.33) performed by Nima Armstrong MD at [facility] LYNETTE ??? PRO NEEDLE BIOPSY LIVER N/A 02/13/2020 LIVER BIOPSY performed by Nima Armstrong MD at [facility] MAIN OR ??? PRO REMOVE PELVIS LYMPH NODES Bilateral 02/13/2020 @LYMPHADENECTOMY, PELVIC, INCLUDING MULTIPLE NODES-FELA (WRVU 14.06) performed by Nima Armstrong MDat [facility] MAIN OR Social History: Pt lives with a friend in a single level apartment with FOS to enter. BANQUET BARTENDER pt was using a cane DME:cane Precautions/Special Considerations: fall, BUSINESS LIBRARIAN, ileal conduit, drain, IVs, RLE pain Diet: [...] RLE, stays on toes, incisional pain, using BUSINESS LIBRARIAN Vital Signs: SpO2: 92% on RA HR: [...] Therapy: (P) 32 MILLER ALEXIS, PT Pager: [phone] Physical Therapy Inpatient Rehabilitation Department * Plan [...] to BR 2x to sit on toilet; buncher machine bedside for appliance xchg; BIT bedside for [...] Escamilla RN - 02/15/2020 3:17 PM EDT buncher machine note: Received return call from OR staff [...] extremity claudication, hyperlipidemia and bladder CA. BIT PLASTICS PROCESS HAND met with pt in room and provided him with a general overview of BIT role and services available. Pt indicate that he would be open to engaging in BIT services at this time. Pt reported that he currently lives in a rented 2nd floor apt, which he shares with his friend Boubacar. Pt reported that he is retired and that he relocated to [place] from [place] 4 years ago to help support his [...] and was open to meeting with BIT PLASTICS PROCESS HAND. Pt presented as quiet/subdued, with noticeable abdominal discomfort throughout the meeting . While he engaged in discussion he made little eye contact, and often benefited from prompting. Speech was quiet with responses at times being somewhat delayed. Thoughts were closely associated. Pt acknowledges that he is finding it difficult to cope with current hospitalization and is open to exploring BIT supportive services. Sustainability Coordinator will follow up with pt later today or tomorrow to continue discussion and complete biopsychosocial. Interventions delivered: Supportive therapy Plan: 1) BIT PLASTICS PROCESS HAND will follow up with pt either later [...] Stoma: Red, budded, edematous, in between 1 07/15 and 8 round, blue and red stents present - [...] was able to state that he was [facility] in [place], [place] but did not know the name. [...] fall off a doroteo) in 1990 in [place] he woke up during the procedure [...] CT Guided Biopsy Lymph Node (Chest/Abd/Pelvis) 01/31/2020 [facility] RAD CAT SCAN ??? HIP FRACTURE SURGERY Right 1991 ??? INGUINAL HERNIA REPAIR Right ??? IR MEDIPORT PLACEMENT/EXCHANGE 11/27/2019 IR Mediport Placement 11/27/2019 Jason Lujan, PA [facility] INTERVENTIONL RAD ??? PRO CYSTECTOMY, ILEAL CONDUIT/SIGMOID BLADDER N/A 02/13/2020 @CYSTECTOMY, COMPLETE, WITH ILEAL CONDUIT (WRVU 36.33) performed by Nima Armstrong MD at [facility] LYNETTE ??? PRO NEEDLE BIOPSY LIVER N/A 02/13/2020 LIVER BIOPSY performed by Nima Armstrong MD at [facility] MAIN OR ??? PRO REMOVE PELVIS LYMPH NODES Bilateral 02/13/2020 @LYMPHADENECTOMY, PELVIC, INCLUDING MULTIPLE NODES-FELA (WRVU 14.06) performed by Nima Armstrong MDat [facility] MAIN OR Social History: Social History Socioeconomic [...] on phone: None Gets together: None Attends mandaeism service: None Active member of club or [...] No drug use. He grew up in [place] [facility] and finished 11th grade. 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 He is and has 3 children, 2 live in [place] and one daughter in the [employer] in [facility]; he has limited contact with them. His brother David age 66 [address] but has significant health challenges as well. He has a [employer] [facility] [facility] embedded case manager, Ketty Ricketts who is also [...] Brachial Artery ?86 ? Common Femoral Artery ?[place]- Biphasic ?? Popliteal Artery ? [place]-Biphasic ?? Dorsalis Pedis (Ankle) Artery ?61 ?0.71 ??[place]- Biphasic ?? Posterior Tibial (Ankle) Artery ??73 ?0.85 ??[place]-Biphasic ? Interpretation: ?? RIGHT: Moderately severe lower [...] required. Laurence Rousseau MD Vascular Surgery Pager: [phone] 02/14/20 * Plan of Care - Chantale Tavares OT - 02/14/2020 3:55 PM EDT Occupational Therapy Note: Order received and chart reviewed. Pt JJ for vasculary study this PM, and unavailable for OT evaluation. OT to f/u as available/appropriate for therapy. Bing Tavares OT Inpatient Rehab Pager #[phone] * Initial Assessments - Dora Lind RN [...] fall off a doroteo) in 1990 [place] he woke up during the procedure [...] Hospitalizations Within the Past 30 Days: no [facility] admits in last 30 days. Anticipated Length Of Stay (If known): Expected Length of Hospitalization: 5 days Vs TBD COVID test done: 02/10/2020 at 12:33 Current Decision-Making Capacity: Patient is A&Ox4 and able to make all medical decisions Advance Care Planning: Attempt Cardiopulmonary Resuscitation - Inpatient Not in [facility]. Report no close family nearby, closest relative is brother David Aguilar. PLASTICS PROCESS HAND consulted for advance directives. Current Coping/Education/Information Needs: Current coping questions and concerns have been addressed. Current Functional Ability: assist of staff, on BUSINESS LIBRARIAN pump due to postoperative pain. Functional Status [...] and has a vehicle. [address] [facility] [address] Social & Family Supports/Community Resources: kalpesh Hdez, neighbors. Extended Emergency Contact Information Primary Emergency Contact: Ketty Ricketts Mobile Relation: Friend Secondary Emergency Contact: DAVID AGUILAR Luning Relation: Sibling Behavioral Health History: none reported Substance Use/Abuse:active one pack a day smoker, reports moderate daily ETOH use. Health/Prescription Coverage: Primary Insurance: MEDICARE Secondary Insurance: MEDICAID [place] Prescription Coverage: Yes Preferred Pharmacy: [id number] - [place], [place] - [address] [facility] [address] [facility] [address] [address] [facility] [id number] - [place], [place] - [address] [facility] [address] Other: none Primary Care Provider: Subhash Dowling MD [phone] Patient/Caregiver Goals of Treatment: return to previous [...] referrals are placed. Patient requests referral to [facility]. PHONE: [phone] FAX: [phone] Expected date of discharge: tbd Plan: A member of the Care Management team will continue to monitor progress, follow for continuityof care and assist with transition of care planning. Dora Lind RN Nurse Community Relations Assistant Pager [phone] * Plan of Care - Miller Alexis PT - 02/14/2020 2:47 PM EDT 02/14/20 5356 Rehab Evaluation Document Type contact Total Evaluation [...] Gilliland RN - 02/14/2020 10:04 AM EDT buncher machine consult note - pt wearing a nicely intact Warren 1 3/4 pouch hooked up to a bedside drainage bag. Pt was not up for any education today; no, please don't touch that bag too much. Did talk with pt's nurse staff industrialEkta, re: educating pt throughout the day, which she is planning to dotoday. Will plan to change the pouch with Vinny tomorrow. Dropped off ostomy supply bag & folder. Pt has 1 spare Naveen 2 1/4 wafer & pouch and one spare Warren 1-piece pouch in his supply bag. ZACKARY Nichols, RN, CWOCN 02/14/2020 Enterostomal Therapy Team Pager #[phone] * Consult Note - Shelby Gilliland RN [...] using -Name of Surgeon and telephone number [employer] (www.ClickPay Services) Inspector Coated Fabrics: Zaida Pedroza [phone] [employer] (www.Standing Cloud) [employer] (Medichanical Engineering.sterRabbit TV.Ponominalu.ru) [employer] (www.Departing.com/welcome [employer] (www.comfortmedical.Ponominalu.ru) [facility] (www.kemercy health west hospitaledicalproducts.net) [employer] (Medichanical [employer].Kabongo) *If you wear [employer] products and are having a difficult time finding a vendor that will accept your Insurance you may call [employer] at . They have a team of 30 Insurance experts whowill help you find a vendor that can bill your Insurance Company. Remember, if they need to return your call expect a call from [place], in case you are screening your calls. [...] Outcome: Ongoing (Interventions Implemented as Appropriate) 02/13/20 2144 02/14/20 6836 Plan of Care Review Progress -- progress [...] of call vora, bed.chair alarm, and 2 West falls prevention [...] Operative Note Patient Name: Wally Aguilar : [id number] MR#: [id number] Case Date: 02/13/2020 Surgeon: Surgeon(s) and Role: [...] No SPECIMEN TO PATHOLOGY OR# 28 ext [id number] Bladder Cancer Bladder and Prostate excision No 02/13/2020 12:57 PM Time specimen removed from patient: 12:55 PM Number of tissue samples (in container) 1 Biospecimen to store? No SPECIMEN TO PATHOLOGY OR#28 ext [phone] Bladder Cancer Left Common and External Lymph Nodes excision No 02/13/2020 1:15 PM Time specimen removed from patient: 1:14 PM Number of tissue samples (in container) 1 Biospecimen to store? No SPECIMEN TO PATHOLOGY OR#28 Ext [id number] Bladder Cancer Left Internal Iliac Lymph Nodes [...] closure: Yes Sterile closure tray used: Yes Thidglgrf-udykwinvr-oyemrckkyf abdominal cavity wash: Yes Xsybnwcph-nkdolxrxn-iklcobdqhe wound wash: Yes * Op Note - Sarbjit Palencia MD - 02/13/2020 2:21 PM EDT [facility] Operative Note Patient Name: Wally Aguilar : [id number] MR#: [id number] Case Date: 02/13/2020 Surgeon: Surgeon(s) and Role: [...] No SPECIMEN TO PATHOLOGY OR# 28 ext [id number] Bladder Cancer Bladder and Prostate excision No 02/13/2020 12:57 PM Time specimen removed from patient: 12:55 PM Number of tissue samples (in container) 1 Biospecimen to store? No SPECIMEN TO PATHOLOGY OR#28 ext [id number] Bladder Cancer Left Common and External Lymph Nodes excision No 02/13/2020 1:15 PM Time specimen removed from patient: 1:14 PM Number of tissue samples (in container) 1 Biospecimen to store? No SPECIMEN TO PATHOLOGY OR#28 Ext [id number] Bladder Cancer Left Internal Iliac Lymph Nodes [...] using interrupted 4-0 Vicryl sutures. A 7 [place] single J stent was inserted, one in [...] were correct. [facility]. Armstrong, the [...] closure: Yes Sterile closure tray used: Yes Otmdmzomy-xshnbikgx-qyenoiesdf abdominal cavity wash: Yes Hkcglromt-znmutusvj-xvpsjlktvq wound wash: Yes Associated attestation - Nima [...] 11:30 AM EST Office Visit Hematology/Oncology at [address] [id number] Chanelle Kim, [facility] [place] [address] Bee Curry [facility] [address] documented as of this encounter Procedures Procedure Name Priority Date/Time Associated Diagnosis Comments SURGICAL PATHOLOGY REPORT Routine 03/06/2020 8:26 AM EDT SPECIMEN TO PATHOLOGY Routine 03/06/2020 8:26 AM EDT UPPER GI ENDOSCOPY Routine 03/06/2020 8: 07 [...] 02/18/2020 6:30 PM EDT CRYPTOSPORIDIUM OOCYST ANTIGEN ([facility]/CGP/APD) Routine 02/18/2020 10:59 AM EDT HC GIARDIA ANTIGEN MAAME METHOD Routine 02/18/2020 10:59 AM EDT GIARDIA ANTIGEN ([facility]/CGP/APD/[facility]) Routine 02/18/2020 10:59 AM EDT HC CREATININE - NON BLOOD Routine 02/18/2020 10:59 AM EDT HC VENIPUNCTURE Routine 02/18/2020 9:33 AM EDT HEMOGRAM Timed 02/18/2020 8:05 AM EDT DIFFERENTIAL, AUTOMATED Timed 02/18/20 8:05 AM EDT HC CBC,PLT & AUTO [...] 8:15 AM EDT DIFFERENTIAL, AUTOMATED Routine 02/16/20 8:15 AM EDT HC CBC,PLT & AUTO [...] 02/13/2020 8:57 AM EDT Needle Biopsy Liver ([id number]) Yes 02/13/2020 8:56 AM EDT Malignant neoplasm of urinary bladder, unspecified site Remove Pelvis Lymph Nodes ([id number]) Yes 02/13/2020 8:56 AM EDT Malignant neoplasm of urinary bladder, unspecified site Cystectomy, Ileal Conduit/Sigmoid Bladder ([id number]) Yes 02/13/2020 8:56 AM EDT Malignant neoplasm [...] EDT) Glucose 137 65 - 199 mg/dL [facility] Comment:Diabetes: >=200 mg/d L plus symptoms Blood Urea Nitrogen 44(H) 10 - 20 mg/dL [facility] Creatinine 1.17 0.80 - 1.50 mg/dL [facility] Sodium 140 135 - 145 mmol/L [facility] Potassium 4.1 3.5 - 5.0 mmol/L [facility] Comment: Please note: ??Patients with WBC >100,000 may have falsely elevated Potassium levels. ??For accurate Potassium quantification in these patients send serum separator tube (gold top) for subsequent determinations. ??Contact the Clinical Chemistry Laboratory if there are any questions. Chloride 108(H) 98 - 107 mmol/L [facility] Carbon Dioxide 20(L) 22 - 31 mmol/L [facility] Anion Gap 12 5 - 15 mmol/L [facility] Calcium 9.2 8.5 - 10.5 mg/dL [facility] Protein, Total 6.9 6.1 - 8.0 gm/dL [facility] Albumin 3.6 3.2 - 5.2 gm/dL [facility] Aspartate Aminotransferase 21 0 - 39 unit/L [facility] Alanine Aminotransferase 37 0 - 55 unit/L [facility] Alkaline Phosphatase 176(H) 40 - 130 unit/L [facility] Bilirubin, Total <0.2(L) 0.2 - 1.3 mg/dL [facility] Est Glomerular Filtration Rate 64 >=60 mL/min/1. 73 m?? [facility] Comment: The eGFR was calculated using the CKD-EPI equation. As with all creatinine based estimates of kidney function, eGFR values calculated with the CKD-EPI equation are not accurate in patients with acute kidney failure, extremes of body mass or the acutely ill. [email or web address]://[employer]/[facility] eGFR 74 >=60 mL/min/1. 73 m?? [facility] Comment: The eGFR was calculated using the CKD-EPI equation. As with all creatinine based estimates of kidney function, eGFR values calculated with the CKD-EPI equation are not accurate in patients with acute kidney failure, extremes of body mass or the acutely ill. [email or web address] Blood specimen (specimen) 03/25/2020 1:27 PM EDT 03/25/2020 1:51 PM EDT Narrative Resulting Agency Comment Spec In Lab Nima Armstrong MD CHEMISTRY ORDERABLES [facility] [place] [address] * CT Angiogram Aortic Lower Extremity Runoff [...] ? Electronically signed by: Chato Hicks MD, [facility] ([phone]), at 03/22/2020 2:45 PM Narrative 03/22/2020 2:45 [...] below. Electronically signed by: Chato Hicks MD, [facility]([phone]), at 03/22/2020 2:45 PM Nima Armstrong MD IMG CT ORDERABLES * Surgical Pathology Report (03/06/2020 8:26 AM EDT) Final Diagnosis [id number] ? Location: 2WST; 0206; A The signing pathologist has (i) examined the relevant preparation(s) for the specimen(s) and (ii) rendered or confirmed the diagnosis(es). . ?Surgical Pathology DIAGNOSIS Esophagus, ??biopsy: Esophageal squamous mucosa within normal limits. Electronically signed by: ??Rick LION [facility] Verified: ??03/08/2020 ?Pathologist Performed at: ??-[facility] Dept. of Pathology, [place], [place] SPECIMEN(S) SUBMITTED A - esophageal bx, biopsy (1) CLINICAL INFORMATION Nausea, vomiting and dysphagia SPECIMEN PROCESSING A - Labeled/Fixativ e: Esophageal biopsy, formalin. Quantity/Size: Two, each 0.3 cm. Tissue Description: Soft, wispy pink-white tissues. Sections/Proces sing: Submitted en toto ??in 1 cassette labeled A1. ??ajw 03/08/2020 9:[address] [facility] GI Biopsy 03/06/2020 8:26 AM EDT 03/06/2020 8:26 AM EDT Chato York MD PATHOLOGY/CYTOLOGY O RDERAJUDE [facility] [place] [address] * Specimen to Pathology (03/06/2020 8:26 AM EDT) AP Specimen 03/06/2020 8:26 AM EDT 03/06/2020 8:[address] [facility] - 03/06/2020 8:26 AM EDT Specimen requisition ordered. ??Separate Pathology report to follow Nima Armstrong MD PATHOLOGY/CYTOLOGY O RDERAJUDE [facility] [place] [address] * UPPER GI ENDOSCOPY (03/06/2020 8:07 AM EDT) UPPER GI ENDOSCOPY [facility] Endoscopy Procedure Date: 03/06/2020 8:07 AM ? Patient Name: Wally Aguilar ? N: [id number] ? Date of : 1950 ? Age: 69 ? Order #: [id number] ? Instrument Name: [id number] ? Procedure: ? Upper GI endoscopy Indications: [...] Procedure Code(s): ?? --- Professional --- ? 72601, Esophagogastroduo denoscopy, ? flexible, transoral; with biopsy, ? single or multiple CPT copyright 2019 [employer]. All rights reserved. The codes documented in this report are preliminary and upon energy manager review may be revised to meet current [...] EDT) Phosphorus 4.0 2.5 - 4.5 mg/dL [facility] Blood specimen (specimen) 03/06/2020 1:45 AM EDT 03/06/2020 1:55 AM EDT Narrative Resulting Agency Comment Spec In Lab Nima Armstrong MD CHEMISTRY ORDERABLES [facility] [place] [address] * Magnesium (03/06/2020 1:45 AM EDT) Magnesium 0.96 0.69 - 1.07 mmol/L [facility] Blood specimen (specimen) 03/06/2020 1:45 AM EDT 03/06/2020 1:55 AM EDT Narrative Resulting Agency Comment Spec In Lab Nima Armstrong MD CHEMISTRY ORDERABLES [facility] [place] [address] * (ABNORMAL) Basic Metabolic Panel (non-fasting) (03/06/2020 1:45 AM EDT) Glucose 99 65 - 199 mg/dL [facility] Comment:Diabetes: >=200 mg/d L plus symptoms Blood Urea Nitrogen 46(H) 10 - 20 mg/dL [facility] Creatinine 0.85 0.80 - 1.50 mg/dL [facility] Sodium 137 135 - 145 mmol/L [facility] Potassium 5.1(H) 3.5 - 5.0 mmol/L [facility] Comment: Please note: ??Patients with WBC >100,000 may have falsely elevated Potassium levels. ??For accurate Potassium quantification in these patients send serum separator tube (gold top) for subsequent determinations. ??Contact the Clinical Chemistry Laboratory if there are any questions. Chloride 105 98 - 107 mmol/L [facility] Carbon Dioxide 22 22 - 31 mmol/L [facility] Anion Gap 10 5 - 15 mmol/L [facility] Calcium 9.3 8.5 - 10.5 mg/dL [facility] Est Glomerular Filtration Rate 90 >=60 mL/min/1. 73 m?? [facility] Comment: The eGFR was calculated using the CKD-EPI equation. As with all creatinine based estimates of kidney function, eGFR values calculated with the CKD-EPI equation are not accurate in patients with acute kidney failure, extremes of body mass or the acutely ill. [email or web address] eGFR 104 >=60 mL/min/1. 73 m?? [facility] Comment: The eGFR was calculated using the CKD-EPI equation. As with all creatinine based estimates of kidney function, eGFR values calculated with the CKD-EPI equation are not accurate in patients with acute kidney failure, extremes of body mass or the acutely ill. [email or web address] Blood specimen (specimen) 03/06/2020 1:45 AM EDT 03/06/2020 1:55 AM EDT Narrative Resulting Agency Comment Spec In Lab Nima Armstrong MD CHEMISTRY ORDERABLES [facility] [place] [address] * COVID-19 PCR (03/05/2020 11:03 AM EDT) SARS-CoV-[address] Not Detected [facility] Comment: This result should be [...] the instructions for use provided by the [employer] and additional guidance provided by CDC and FDA. Testing is performed in the [facility] Laboratory within the Department of Pathology and Laboratory Medicine at [facility], certified under the Clinical Laboratory Improvement Amendments [...] fact sheets at the following FDA website: https://www.fda.gov/medical-devices/aihfivbkn-sdekecggpd-skwbajz-devices/emergen -us e-authorizations#iggjn49ege SARS-CoV-2 RNA Source [employer] Swab [facility] Nasopharyngeal swab (specimen) 03/05/2020 11:03 AM EDT 03/05/2020 1:15 PM EDT Comment:Needed for admission to SNF/rehab Narrative Resulting Agency Comment Spec In Lab Nima Armstrong MD MOLECULAR ORDERABLES [facility] [place] [address] * CRP, cardiac risk (HS CRP) (02/29/2020 2:32 PM EDT) C-Reactive Protein High Sensitivity 13.0 mg/L [facility] Comment: For cardiac risk assessment, [...] 2003; [phone]:[phone] CRP Cardiac Risk Acute Inflammation [facility] Blood specimen (specimen) 02/29/2020 2:32 PM EDT 02/29/2020 3:16 PM EDT Narrative Resulting Agency Comment Spec In Lab Nima Armstrong MD CHEMISTRY ORDERABLES Performing Organization Address [facility] Co de Phone Number [facility] [place] [address] * (ABNORMAL) Sedimentation rate (02/29/2020 2:32 PM EDT) Sedimentation Rate Automated 101(H) 2 - 37 mm/hr [facility] Comment: Effective June 21, 2019 new capillary photometric technology has resulted in a change in reference ranges. It is recommended that each ESR result be reviewed with its own age appropriate reference range. Blood specimen (specimen) 02/29/2020 2:32 PM EDT 02/29/2020 3:16 PM EDT Narrative Resulting Agency Comment Spec In Lab Nima Armstrong MD HEMATOLOGY ORDERABLE S Performing Organization Address [facility] Co de Phone Number [facility] [place] [address] * Folate, serum (02/29/2020 1:57 AM EDT) Folate 10.9 4.8 - 24.2 ng/mL [facility] Blood specimen (specimen) 02/29/2020 1:57 AM EDT 02/29/2020 2:02 AM EDT Narrative Resulting Agency Comment Spec In Lab Nima Armstrong MD CHEMISTRY ORDERABLES [facility] [place] [address] * IR G-Tube Placement (02/28/2020 11:19 AM [...] a guidewire was placed in the stomach. Adjt-unu-cyqe a tract was dilated with a 7 mm [place] balloon. A 16 Fr balloon retained gastrostomy tube was placed rhdv-pga-pknu. Retention balloon inflated with 5 cc sterile [...] Technically successful percutaneous placement of a 16 [place] balloon retained gastrostomy tube. Plan/Disposition: 1) To Angio recovery room. May transfer to floor when meets criteria. 2) Gastrostomy tube may be used in 8 hours if bowel sounds have returned. 3) Resume care by clinical service. 4) Gastropexy release in 7-10 days (ordered and IR mill order scheduler notified). Physician Assistant Primary Care(s): Resident Physician: Roberto Bradshaw DO Attending Physician: Toño Carmichael MD I, Dr. Carmichael, was present throughout the procedure. I was present during the intraservice time as documented by the IR Nurse. ?? 02/28/2020 Nima Armstrong MD IMG IR ORDERABLES * (ABNORMAL) Vitamin D, 25-Hydroxy (02/28/2020 9:15 AM EDT) Vitamin D Total 25 OH 15(L) 21 - 100 ng/mL [facility] Comment: Please note, effective November 15, 2019, additional result field for Vitamin D Interpretation, and updated flagging notification. Vit D Interp Deficient [facility] Blood specimen (specimen) 02/28/2020 9:15 AM EDT 02/28/2020 9:22 AM EDT Narrative Resulting Agency Comment Spec In Lab Nima Armstrong MD CHEMISTRY ORDERABLES [facility] [place] [address] * Vitamin B12 (02/28/2020 9:15 AM EDT) Vitamin B12 765 232 - 1,245 pg/mL [facility] Blood specimen (specimen) 02/28/2020 9:15 AM EDT 02/28/2020 9:22 AM EDT Narrative Resulting Agency Comment Spec In Lab Nima Armstrong MD CHEMISTRY ORDERABLES Performing Organization Address City/[facility]/ZIP Co de Phone Number [facility] [place] [address] * TSH (02/28/2020 9:15 AM EDT) Thyroid Stimulating Hormone 1.32 0.27 - 4.20 mcIU/mL [facility] Blood specimen (specimen) 02/28/2020 9:15 AM EDT 02/28/2020 9:22 AM EDT Narrative Resulting Agency Comment Spec In Lab Nima Armstrong MD CHEMISTRY ORDERABLES Performing Organization Address City/[facility]/ZIP Co de Phone Number [facility] [place] [address] * Phosphorus (02/28/2020 2:07 AM EDT) Phosphorus 4.1 2.5 - 4.5 mg/dL [facility] Blood specimen (specimen) 02/28/2020 2:07 AM EDT 02/28/2020 2:39 AM EDT Narrative Resulting Agency Comment Spec In Lab Willian Shaikh APRN CHEMISTRY ORDERA BLES [facility] [place] [address] * Magnesium (02/28/2020 2:07 AM EDT) Magnesium 1.01 0.69 - 1.07 mmol/L [facility] Blood specimen (specimen) 02/28/2020 2:07 AM EDT 02/28/2020 2:39 AM EDT Narrative Resulting Agency Comment Spec In Lab Willian Shaikh ANTON CHEMISTRY ORDERA BLES [facility] [place] [address] * (ABNORMAL) Basic Metabolic Panel (non-fasting) (02/28/2020 2:07 AM EDT) Glucose 151 65 - 199 mg/dL [facility] Comment:Diabetes: >=200 mg/d L plus symptoms Blood Urea Nitrogen 67(H) 10 - 20 mg/dL [facility] Creatinine 0.83 0.80 - 1.50 mg/dL [facility] Sodium 148(H) 135 - 145 mmol/L [facility] Potassium 4.2 3.5 - 5.0 mmol/L [facility] Comment: Please note: ??Patients with WBC >100,000 may have falsely elevated Potassium levels. ??For accurate Potassium quantification in these patients send serum separator tube (gold top) for subsequent determinations. ??Contact the Clinical Chemistry Laboratory if there are any questions. Chloride 112(H) 98 - 107 mmol/L [facility] Carbon Dioxide 23 22 - 31 mmol/L [facility] Anion Gap 13 5 - 15 mmol/L [facility] Calcium 8.5 8.5 - 10.5 mg/dL [facility] Est Glomerular Filtration Rate 91 >=60 mL/min/1. 73 m?? [facility] Comment: The eGFR was calculated using the CKD-EPI equation. As with all creatinine based estimates of kidney function, eGFR values calculated with the CKD-EPI equation are not accurate in patients with acute kidney failure, extremes of body mass or the acutely ill. [email or web address]/[facility] eGFR 106 >=60 mL/min/1. 73 m?? [facility] Comment: The eGFR was calculated using the CKD-EPI equation. As with all creatinine based estimates of kidney function, eGFR values calculated with the CKD-EPI equation are not accurate in patients with acute kidney failure, extremes of body mass or the acutely ill. [email or web address] Blood specimen (specimen) 02/28/2020 2:07 AM EDT 02/28/2020 2:39 AM EDT Narrative Resulting Agency Comment Spec In Lab Willian Mick Dinorah WALTON CHEMISTRY ORDERA BLES [facility] [place] [address] * (ABNORMAL) Basic Metabolic Panel (non-fasting) (02/25/2020 2:02 AM EDT) Glucose 127 65 - 199 mg/dL [facility] Comment:Diabetes: >=200 mg/d L plus symptoms Blood Urea Nitrogen 39(H) 10 - 20 mg/dL [facility] Creatinine 0.75(L) 0.80 - 1.50 mg/dL [facility] Sodium 135 135 - 145 mmol/L [facility] Potassium 4.7 3.5 - 5.0 mmol/L [facility] Comment: Please note: ??Patients with WBC >100,000 may have falsely elevated Potassium levels. ??For accurate Potassium quantification in these patients send serum separator tube (gold top) for subsequent determinations. ??Contact the Clinical Chemistry Laboratory if there are any questions. Chloride 102 98 - 107 mmol/L [facility] Carbon Dioxide 23 22 - 31 mmol/L [facility] Anion Gap 10 5 - 15 mmol/L [facility] Calcium 8.0(L) 8.5 - 10.5 mg/dL [facility] Est Glomerular Filtration Rate 95 >=60 mL/min/1. 73 m?? [facility] Comment: The eGFR was calculated using the CKD-EPI equation. As with all creatinine based estimates of kidney function, eGFR values calculated with the CKD-EPI equation are not accurate in patients with acute kidney failure, extremes of body mass or the acutely ill. [email or web address]://[employer]/[facility] eGFR 110 >=60 mL/min/1. 73 m?? [facility] Comment: The eGFR was calculated using the CKD-EPI equation. As with all creatinine based estimates of kidney function, eGFR values calculated with the CKD-EPI equation are not accurate in patients with acute kidney failure, extremes of body mass or the acutely ill. [email or web address] Blood specimen (specimen) 02/25/2020 2:02 AM EDT 02/25/2020 2:06 AM EDT Narrative Resulting Agency Comment Spec In Lab Nima Armstrong MD CHEMISTRY ORDERABLES [facility] [place] [address] * Differential, Automated (02/24/2020 2:05 AM EDT) Neutrophil % 73.3 % [facility] Neutrophil Absolute 5.87 1.70 - 6.10 x10(3)/[facility]AT[facility] Lymph % 15.1 % [facility] Lymphocytes Abs 1.2 0.9 - 3.2 x10(3)/[facility] Monocyte % 8.3 % [facility] Monocyte Abs 0.7 0.3 - 0.9 x10(3)/[facility] Eos % 2.3 % [facility] Eosinophils Abs 0.2 0.0 - 0.4 x10(3)/[facility] Basophil % 0.5 % [facility] Baso Absolute 0.0 0.0 - 0.1 x10(3)/[facility] Immature Gran % 0.50 % [facility] Comment: Immature granulocytes(IG's)percentage and absolute count will include metamyelocytes, myelocytes, and promyelocytes. Blood smears from CBCs yielding IG's will be scanned manually for concordance. If this scan disagrees with the automated IG or if promyelocytes are noted, a manual differential will be performed. Immature Gran Absolute 0.04 0.00 - 0.04 x10(3)/mcL [facility] Blood specimen (specimen) 02/24/2020 2:05 AM EDT 02/24/2020 2:30 AM EDT Narrative Resulting Agency Comment Spec In Lab La Jean-Baptiste MD HEMATOLOGY ORDERABLE S [facility] [place] [address] * (ABNORMAL) Hemogram (02/24/2020 2:05 AM EDT) White Blood Cell 8.0 4.0 - 9.5 x10(3)/mc L [facility] Red Blood Cell 2.97(L) 4.58 - 5.54 x10(6)/mc L [facility] Hemoglobin 9.3(L) 13.7 - 16.5 gm/dL [facility] Hematocrit 29.0(L) 40.5 - 48.5 % [facility] Mean Cell Volume 97.6(H) 82.9 - 93.[address] [facility] Mean Cell Hemoglobin 31.3 27.5 - 32.[address] [facility] Mean Cell Hemoglobin Concentration 32.1 32.0 - 35.7 gm/dL [facility] Platelet 103(L) 145 - 357 x10(3)/mc L [facility] RDW Standard Deviation 56.9(H) 36.0 - 45.[address] [facility] RDW coefficient of variation 15.9(H) 11.4 - 13.8 % [facility] Mean Platelet Volume 11.8 7.6 - 12.[address] [facility] NRBC% auto 0.0 % [facility] NRBC Absolute 0.000 0.000 - 0.000 x10(3)/mc L [facility] Blood specimen (specimen) 02/24/2020 2:05 AM EDT 02/24/2020 2:30 AM EDT Narrative Resulting Agency Comment Spec In Lab La Jean-Baptiste MD HEMATOLOGY ORDERABLE S [facility] [place] [address] * (ABNORMAL) Basic Metabolic Panel (non-fasting) (02/24/2020 2:05 AM EDT) Glucose 121 65 - 199 mg/dL [facility] Comment:Diabetes: >=200 mg/d L plus symptoms Blood Urea Nitrogen 34(H) 10 - 20 mg/dL [facility] Creatinine 0.71(L) 0.80 - 1.50 mg/dL [facility] Sodium 133(L) 135 - 145 mmol/L [facility] Potassium 4.7 3.5 - 5.0 mmol/L [facility] Comment: Please note: ??Patients with WBC >100,000 may have falsely elevated Potassium levels. ??For accurate Potassium quantification in these patients send serum separator tube (gold top) for subsequent determinations. ??Contact the Clinical Chemistry Laboratory if there are any questions. Chloride 104 98 - 107 mmol/L [facility] Carbon Dioxide 21(L) 22 - 31 mmol/L [facility] Anion Gap 8 5 - 15 mmol/L [facility] Calcium 7.7(L) 8.5 - 10.5 mg/dL [facility] Est Glomerular Filtration Rate 97 >=60 mL/min/1. 73 m?? [facility] Comment: The eGFR was calculated using the CKD-EPI equation. As with all creatinine based estimates of kidney function, eGFR values calculated with the CKD-EPI equation are not accurate in patients with acute kidney failure, extremes of body mass or the acutely ill. [email or web address] eGFR 113 >=60 mL/min/1. 73 m?? [facility] Comment: The eGFR was calculated using the CKD-EPI equation. As with all creatinine based estimates of kidney function, eGFR values calculated with the CKD-EPI equation are not accurate in patients with acute kidney failure, extremes of body mass or the acutely ill. [email or web address] Blood specimen (specimen) 02/24/2020 2:05 AM EDT 02/24/2020 2:30 AM EDT Narrative Resulting Agency Comment Spec In Lab Nima Armstrong MD CHEMISTRY ORDERABLES Performing Organization Address [facility] Co de Phone Number [facility] [place] [address] * Phosphorus (02/24/2020 2:05 AM EDT) Phosphorus 4.5 2.5 - 4.5 mg/dL [facility] Blood specimen (specimen) 02/24/2020 2:05 AM EDT 02/24/2020 2:30 AM EDT Narrative Resulting Agency Comment Spec In Lab Nima Armstrong MD CHEMISTRY ORDERABLES Performing Organization Address [facility] Co de Phone Number [facility] [place] [address] * Magnesium (02/24/2020 2:05 AM EDT) Magnesium 1.00 0.69 - 1.07 mmol/L [facility] Blood specimen (specimen) 02/24/2020 2:05 AM EDT 02/24/2020 2:30 AM EDT Narrative Resulting Agency Comment Spec In Lab Nima Armstrong MD CHEMISTRY ORDERABLES Performing Organization Address [facility] Co de Phone Number [facility] [place] [address] * (ABNORMAL) Basic Metabolic Panel (non-fasting) (02/23/2020 1:55 AM EDT) Glucose 123 65 - 199 mg/dL [facility] Comment:Diabetes: >=200 mg/d L plus symptoms Blood Urea Nitrogen 33(H) 10 - 20 mg/dL [facility] Creatinine 0.75(L) 0.80 - 1.50 mg/dL [facility] Sodium 136 135 - 145 mmol/L [facility] Potassium 4.8 3.5 - 5.0 mmol/L [facility] Comment: Please note: ??Patients with WBC >100,000 may have falsely elevated Potassium levels. ??For accurate Potassium quantification in these patients send serum separator tube (gold top) for subsequent determinations. ??Contact the Clinical Chemistry Laboratory if there are any questions. Chloride 103 98 - 107 mmol/L [facility] Carbon Dioxide 21(L) 22 - 31 mmol/L [facility] Anion Gap 12 5 - 15 mmol/L [facility] Calcium 7.5(L) 8.5 - 10.5 mg/dL [facility] Est Glomerular Filtration Rate 95 >=60 mL/min/1. 73 m?? [facility] Comment: The eGFR was calculated using the CKD-EPI equation. As with all creatinine based estimates of kidney function, eGFR values calculated with the CKD-EPI equation are not accurate in patients with acute kidney failure, extremes of body mass or the acutely ill. [email or web address]/[facility] [email or web address] eGFR 110 >=60 mL/min/1. 73 m?? [facility] Comment: The eGFR was calculated using the CKD-EPI equation. As with all creatinine based estimates of kidney function, eGFR values calculated with the CKD-EPI equation are not accurate in patients with acute kidney failure, extremes of body mass or the acutely ill. [email or web address]/[email or web address] Blood specimen (specimen) 02/23/2020 1:55 AM EDT 02/23/2020 2:33 AM EDT Narrative Resulting Agency Comment Spec In Lab Nima Armstrong MD CHEMISTRY ORDERABLES Performing Organization Address City/[facility]/ZIP Co de Phone Number [facility] [place] [address] * Phosphorus (02/23/2020 1:55 AM EDT) Phosphorus 3.8 2.5 - 4.5 mg/dL [facility] Blood specimen (specimen) 02/23/2020 1:55 AM EDT 02/23/2020 2:30 AM EDT Narrative Resulting Agency Comment Spec In Lab Nima Armstrong MD CHEMISTRY ORDERABLES Performing Organization Address [facility] Co de Phone Number [facility] [place] [address] * Magnesium (02/23/2020 1:55 AM EDT) Pathologist [facility] Magnesium 1.04 0.69 - 1.07 mmol/L [facility] Blood specimen (specimen) 02/23/2020 1:55 AM EDT 02/23/2020 2:30 AM EDT Narrative Resulting Agency Comment Spec In Lab Nima Armstrong MD CHEMISTRY ORDERABLES Performing Organization Address [facility]/ZIP Co de Phone Number [facility] [place] [phone] * Scan, Peripheral Blood (02/22/2020 2:30 AM EDT) Plat estimate Decreased [facility] RBC Morphology Normal [facility] Macrocyte 1-5 /HPF [facility] Ovalocytes 1-5 /HPF [facility] Atypical Lymph Many [facility] Toxic Granulation Present [facility] Vacuolated Neut Present [facility] Plat, Giant Less than 1 /HPF [facility] Blood specimen (specimen) 02/22/2020 2:30 AM EDT 02/22/2020 2:44 AM EDT Narrative Resulting Agency Comment Spec In Lab Enrrique Patten MD HEMATOLOGY ORDERABLE S [facility] [place] [address] * (ABNORMAL) Differential, Automated (02/22/2020 2:30 AM EDT) Neutrophil % 75.8 % [facility] Neutrophil Absolute 7.24(H) 1.70 - 6.10 x10(3)/ L [facility] Lymph % 13.2 % [facility] Lymphocytes Abs 1.3 0.9 - 3.2 x10(3)/[facility] Monocyte % 9.4 % [facility] Monocyte Abs 0.9 0.3 - 0.9 x10(3)/[facility] Eos % 0.9 % [facility] Eosinophils Abs 0.1 0.0 - 0.4 x10(3)/[facility] Basophil % 0.3 % [facility] Baso Absolute 0.0 0.0 - 0.1 x10(3)/[facility] Immature Gran % 0.40 % [facility] Comment: Immature granulocytes(IG's)percentage and absolute count will include metamyelocytes, myelocytes, and promyelocytes. Blood smears from CBCs yielding IG's will be scanned manually for concordance. If this scan disagrees with the automated IG or if promyelocytes are noted, a manual differential will be performed. Immature Gran Absolute 0.04 0.00 - 0.04 x10(3)/ L [facility] Blood specimen (specimen) 02/22/2020 2:30 AM EDT 02/22/2020 2:44 AM EDT Narrative Resulting Agency Comment Spec In Lab Enrrique Patten MD HEMATOLOGY ORDERABLE S Performing Organization Address City/[facility]/ZIP Co de Phone Number [facility] [place] [address] * (ABNORMAL) Hemogram (02/22/2020 2:30 AM EDT) White Blood Cell 9.6(H) 4.0 - 9.5 x10(3)/mc L [facility] Red Blood Cell 3.07(L) 4.58 - 5.54 x10(6)/mc L [facility] Hemoglobin 9.7(L) 13.7 - 16.5 gm/dL [facility] Hematocrit 28.5(L) 40.5 - 48.5 % [facility] Mean Cell Volume 92.8 82.9 - 93.[address] [facility] Mean Cell Hemoglobin 31.6 27.5 - 32.[address] [facility] Mean Cell Hemoglobin Concentration 34.0 32.0 - 35.7 gm/dL [facility] Platelet 97(L) 145 - 357 x10(3)/mc L [facility] RDW Standard Deviation 54.2(H) 36.0 - 45.[address] [facility] RDW coefficient of variation 16.1(H) 11.4 - 13.8 % [facility] Mean Platelet Volume 12.1 7.6 - 12.[address] [facility] NRBC% auto 0.0 % [facility] NRBC Absolute 0.000 0.000 - 0.000 x10(3)/ L [facility] Blood specimen (specimen) 02/22/2020 2:30 AM EDT 02/22/2020 2:44 AM EDT Narrative Resulting Agency Comment Spec In Lab Enrrique Patten MD HEMATOLOGY ORDERABLE S [facility] [place] [address] * (ABNORMAL) Basic Metabolic Panel (non-fasting) (02/22/2020 2:30 AM EDT) Glucose 126 65 - 199 mg/dL [facility] Comment:Diabetes: >=200 mg/d L plus symptoms Blood Urea Nitrogen 26(H) 10 - 20 mg/dL [facility] Creatinine 0.73(L) 0.80 - 1.50 mg/dL [facility] Sodium 136 135 - 145 mmol/L [facility] Potassium 4.1 3.5 - 5.0 mmol/L [facility] Comment: Please note: ??Patients with WBC >100,000 may have falsely elevated Potassium levels. ??For accurate Potassium quantification in these patients send serum separator tube (gold top) for subsequent determinations. ??Contact the Clinical Chemistry Laboratory if there are any questions. Chloride 103 98 - 107 mmol/L [facility] Carbon Dioxide 25 22 - 31 mmol/L [facility] Anion Gap 8 5 - 15 mmol/L [facility] Calcium 7.4(L) 8.5 - 10.5 mg/dL [facility] Est Glomerular Filtration Rate 96 >=60 mL/min/1. 73 m?? [facility] Comment: The eGFR was calculated using the CKD-EPI equation. As with all creatinine based estimates of kidney function, eGFR values calculated with the CKD-EPI equation are not accurate in patients with acute kidney failure, extremes of body mass or the acutely ill. [email or web address]/[facility]RIEnkf eGFR 111 >=60 mL/min/1. 73 m?? [facility] Comment: The eGFR was calculated using the CKD-EPI equation. As with all creatinine based estimates of kidney function, eGFR values calculated with the CKD-EPI equation are not accurate in patients with acute kidney failure, extremes of body mass or the acutely ill. [email or web address]/[email or web address] Blood specimen (specimen) 02/22/2020 2:30 AM EDT 02/22/2020 2:44 AM EDT Narrative Resulting Agency Comment Spec In Lab Nima Armstrong MD CHEMISTRY ORDERABLES Performing Organization Address City/[facility] Co de Phone Number [facility] [place] [address] * Potassium (02/21/2020 8:36 PM EDT) Potassium 4.1 3.5 - 5.0 mmol/L [facility] Comment: result rechecked-imm Please note: [...] Armstrong MD CHEMISTRY ORDERABLES Performing Organization Address [facility] Co de Phone Number [facility] [place] [address] * Phosphorus (02/21/2020 1:55 AM EDT) Phosphorus 3.3 2.5 - 4.5 mg/dL [facility] Blood specimen (specimen) 02/21/2020 1:55 AM EDT 02/21/2020 2:00 AM EDT Narrative Resulting Agency Comment Spec In Lab Nima Armstrong MD CHEMISTRY ORDERABLES Performing Organization Address [facility]/ZIP Co de Phone Number [facility] [place] [address] * Magnesium (02/21/2020 1:55 AM EDT) Magnesium 0.90 0.69 - 1.07 mmol/L [facility] Blood specimen (specimen) 02/21/2020 1:55 AM EDT 02/21/2020 2:00 AM EDT Narrative Resulting Agency Comment Spec In Lab Nima Armstrong MD CHEMISTRY ORDERABLES [facility] [place] [address] * (ABNORMAL) Basic Metabolic Panel (non-fasting) (02/21/2020 1:55 AM EDT) Glucose 130 65 - 199 mg/dL [facility] Comment:Diabetes: >=200 mg/d L plus symptoms Blood Urea Nitrogen 22(H) 10 - 20 mg/dL [facility] Creatinine 0.69(L) 0.80 - 1.50 mg/dL [facility] Sodium 135 135 - 145 mmol/L [facility] Potassium 3.0(Criti heath) 3.5 - 5.0 mmol/L [facility] Comment: Called by: pablo, Read back by: donte bearden, Date/Time:02/21/20 02:33. Please note: ??Patients with WBC >100,000 may have falsely elevated Potassium levels. ??For accurate Potassium quantification in these patients send serum separator tube (gold top) for subsequent determinations. ??Contact the Clinical Chemistry Laboratory if there are any questions. Chloride 101 98 - 107 mmol/L [facility] Carbon Dioxide 24 22 - 31 mmol/L [facility] Anion Gap 10 5 - 15 mmol/L [facility] Calcium 7.2(L) 8.5 - 10.5 mg/dL [facility] Est Glomerular Filtration Rate 98 >=60 mL/min/1. 73 m?? [facility] Comment: The eGFR was calculated using the CKD-EPI equation. As with all creatinine based estimates of kidney function, eGFR values calculated with the CKD-EPI equation are not accurate in patients with acute kidney failure, extremes of body mass or the acutely ill. [email or web address] eGFR 114 >=60 mL/min/1. 73 m?? [facility] Comment: The eGFR was calculated using the CKD-EPI equation. As with all creatinine based estimates of kidney function, eGFR values calculated with the CKD-EPI equation are not accurate in patients with acute kidney failure, extremes of body mass or the acutely ill. [email or web address] Blood specimen (specimen) 02/21/2020 1:55 AM EDT 02/21/2020 2:00 AM EDT Narrative Resulting Agency Comment Spec In Lab Nima Armstrong MD CHEMISTRY ORDERABLES [facility] [place] [address] * (ABNORMAL) Differential, Automated (02/20/2020 2:04 AM EDT) Neutrophil % 72.4 % [facility] Neutrophil Absolute 6.80(H) 1.70 - 6.10 x10(3)/[facility] LAB[facility]AT[facility] Lymph % 13.2 % [facility] Lymphocytes Abs 1.2 0.9 - 3.2 x10(3)/[facility] LAB[facility] Monocyte % 11.1 % [facility] Monocyte Abs 1.0(H) 0.3 - 0.9 x10(3)/ L [facility] Eos % 2.3 % [facility] Eosinophils Abs 0.2 0.0 - 0.4 x10(3)/[facility] Basophil % 0.3 % [facility] Baso Absolute 0.0 0.0 - 0.1 x10(3)/[facility] Immature Gran % 0.70 % [facility] Comment: Immature granulocytes(IG's)percentage and absolute count will include metamyelocytes, myelocytes, and promyelocytes. Blood smears from CBCs yielding IG's will be scanned manually for concordance. If this scan disagrees with the automated IG or if promyelocytes are noted, a manual differential will be performed. Immature Gran Absolute 0.07(H) 0.00 - 0.04 x10(3)/ L [facility] Blood specimen (specimen) 02/20/2020 2:04 AM EDT 02/20/2020 2:10 AM EDT Narrative Resulting Agency Comment Spec In Lab Enrrique Patten MD HEMATOLOGY ORDERABLE S [facility] [place] [address] * (ABNORMAL) Hemogram (02/20/2020 2:04 AM EDT) White Blood Cell 9.4 4.0 - 9.5 x10(3)/mc L [facility] Red Blood Cell 2.92(L) 4.58 - 5.54 x10(6)/mc L [facility] Hemoglobin 9.2(L) 13.7 - 16.5 gm/dL [facility] Hematocrit 28.0(L) 40.5 - 48.5 % [facility] Mean Cell Volume 95.9(H) 82.9 - 93.[address] [facility] Mean Cell Hemoglobin 31.5 27.5 - 32.[address] [facility] Mean Cell Hemoglobin Concentration 32.9 32.0 - 35.7 gm/dL [facility] Platelet 93(L) 145 - 357 x10(3)/mc L [facility] RDW Standard Deviation 57.1(H) 36.0 - 45.[address] [facility] RDW coefficient of variation 16.2(H) 11.4 - 13.8 % [facility] Mean Platelet Volume 11.8 7.6 - 12.[address] [facility] NRBC% auto 0.0 % [facility] NRBC Absolute 0.000 0.000 - 0.000 x10(3)/ L [facility] Blood specimen (specimen) 02/20/2020 2:04 AM EDT 02/20/2020 2:10 AM EDT Narrative Resulting Agency Comment Spec In Lab Enrrique Patten MD HEMATOLOGY ORDERABLE S [facility] [place] [address] * (ABNORMAL) Basic Metabolic Panel (non-fasting) (02/20/2020 2:04 AM EDT) Glucose 124 65 - 199 mg/dL [facility] Comment:Diabetes: >=200 mg/d L plus symptoms Blood Urea Nitrogen 15 10 - 20 mg/dL [facility] Creatinine 0.81 0.80 - 1.50 mg/dL [facility] Sodium 137 135 - 145 mmol/L [facility] Potassium 3.2(L) 3.5 - 5.0 mmol/L [facility] Comment: Please note: ??Patients with WBC >100,000 may have falsely elevated Potassium levels. ??For accurate Potassium quantification in these patients send serum separator tube (gold top) for subsequent determinations. ??Contact the Clinical Chemistry Laboratory if there are any questions. Chloride 107 98 - 107 mmol/L [facility] Carbon Dioxide 22 22 - 31 mmol/L [facility] Anion Gap 8 5 - 15 mmol/L [facility] Calcium 7.1(L) 8.5 - 10.5 mg/dL [facility] Est Glomerular Filtration Rate 92 >=60 mL/min/1. 73 m?? [facility] Comment: The eGFR was calculated using the CKD-EPI equation. As with all creatinine based estimates of kidney function, eGFR values calculated with the CKD-EPI equation are not accurate in patients with acute kidney failure, extremes of body mass or the acutely ill. [email or web address]/[facility]Enkf eGFR 107 >=60 mL/min/1. 73 m?? [facility] Comment: The eGFR was calculated using the CKD-EPI equation. As with all creatinine based estimates of kidney function, eGFR values calculated with the CKD-EPI equation are not accurate in patients with acute kidney failure, extremes of body mass or the acutely ill. [email or web address]/[facility] Blood specimen (specimen) 02/20/2020 2:04 AM EDT 02/20/2020 2:10 AM EDT Narrative Resulting Agency Comment Spec In Lab Nima Armstrong MD CHEMISTRY ORDERABLES Performing Organization Address [facility] Co de Phone Number [facility] [place] [address] * (ABNORMAL) Hepatic Function Panel (02/20/2020 2:04 AM EDT) Protein, Total 3.8(L) 6.1 - 8.0 gm/dL [facility] Albumin 2.2(L) 3.2 - 5.2 gm/dL [facility] Aspartate Aminotransferase 32 0 - 39 unit/L [facility] Alanine Aminotransferase 39 0 - 55 unit/L [facility] Alkaline Phosphatase 100 40 - 130 unit/L [facility] Bilirubin, Total 0.2 0.2 - 1.3 mg/dL [facility] Bilirubin, Direct 0.1 0.0 - 0.3 mg/dL [facility] Blood specimen (specimen) 02/20/2020 2:04 AM EDT 02/20/2020 2:10 AM EDT Narrative Resulting Agency Comment Spec In Lab Nima Armstrong MD CHEMISTRY ORDERABLES Performing Organization Address [facility] Co de Phone Number [facility] [place] [address] * Phosphorus (02/20/2020 2:04 AM EDT) Phosphorus 2.8 2.5 - 4.5 mg/dL [facility] Blood specimen (specimen) 02/20/2020 2:04 AM EDT 02/20/2020 2:10 AM EDT Narrative Resulting Agency Comment Spec In Lab Nima Armstrong MD CHEMISTRY ORDERABLES Performing Organization Address [facility] Co de Phone Number [facility] [place] [address] * Magnesium (02/20/2020 2:04 AM EDT) Pathologist [facility] Magnesium 0.77 0.69 - 1.07 mmol/L [facility] Blood specimen (specimen) 02/20/2020 2:04 AM EDT 02/20/2020 2:10 AM EDT Narrative Resulting Agency Comment Spec In Lab Nima Armstrong MD CHEMISTRY ORDERABLES [facility] [place] [address] * Shiga Toxin Detection (02/19/2020 3:14 PM EDT) [facility] Shiga Toxin Assay Test not performed due to no enteric growth. [facility] Stool specimen (specimen) 02/19/2020 3:14 PM EDT 02/19/2020 4:05 PM EDT Comment:NO PRECAUTIONS NEEDE D PER GI. Narrative Resulting Agency Comment Spec In Lab Roselia WHITFIELD MICROBIOLOGY - GENER AL ORDERABLES Performing Organization Address City/[facility]/ZIP Co de Phone Number [facility] [place] [address] * (ABNORMAL) Campylobacter Antigen (02/19/2020 3:14 PM EDT) Pathologist [facility] Campylobacter Ag Immunoassay Positive for Campylobacter Antigen(A) [facility] Stool specimen (specimen) 02/19/2020 3:14 PM EDT 02/19/2020 4:05 PM EDT Comment:NO PRECAUTIONS NEEDE D PER GI. Narrative Resulting Agency Comment Spec In Lab Roselia WHITFIELD MICROBIOLOGY - GENER AL ORDERABLES Performing Organization Address City/[facility]/ZIP Co de Phone Number [facility] [place] [address] * Stool culture (02/19/2020 3:14 PM EDT) Stool Culture No enteric pathogens isolated Reduced normal enteric sheri isolated [facility] Stool specimen (specimen) 02/19/2020 3:14 PM EDT 02/19/2020 4:04 PM EDT Comment:NO PRECAUTIONS NEEDE D PER GI. Narrative Resulting Agency Comment Spec In Lab Roselia WHITFIELD MICROBIOLOGY - GENER AL ORDERABLES [facility] [place] [address] * (ABNORMAL) Platelet count (02/19/2020 2:30 PM EDT) Platelet 102(L) 145 - 357 x10(3)/mc L [facility] Immature Plt % 8.9(H) 0.0 - 7.4 % [facility] Comment: Limitation of the Immature Platelet Fraction (IPF)-May be less reliable when the platelet count is less than 62u478/uL due to statistical imprecision. The IPF value [...] in a decreased state of production. References: [employer] The Clinical Value of the Immature Platelet Fraction (IPF) in Cell Recovery Document Number 10-1143 12/[address] [employer] The Role of the Immature Platelet Fraction (IPF) in the Differential Diagnosis of Thrombocytopenia, Document [id number] Blood specimen (specimen) 02/19/2020 2:30 PM EDT 02/19/2020 2:46 PM EDT Narrative Resulting Agency Comment Spec In Lab Nima Armstrong MD HEMATOLOGY ORDERABLE S Performing Organization Address [facility]/ZIP Co de Phone Number [facility] [place] [address] * APTT (02/19/2020 2:30 PM EDT) Partial Thromboplastin Time 28 25 - [address] [facility] Comment: The PTT is NOT appropriate for heparin monitoring. Use the Anti-Xa level for heparin monitoring (HEP UFH) or LMWH monitoring (HEP LMW). A PTT less than 37 seconds generally indicates adequate hemostasis. Blood specimen (specimen) 02/19/2020 2:30 PM EDT 02/19/2020 2:46 PM EDT Narrative Resulting Agency Comment Spec In Lab Nima Armstrong MD HEMATOLOGY ORDERABLE S Performing Organization Address [facility] Co de Phone Number [facility] [place] [address] * (ABNORMAL) Prothrombin Time (02/19/2020 2:30 PM EDT) Prothrombin Time 13.1(H) 9.4 - 12.[address] [facility] International Normalization Ratio 1.1 [facility] Comment: An INR <2.0 indicates [...] MD HEMATOLOGY ORDERABLE S Performing Organization Address [facility]/ZIP Co de Phone Number [facility] [place] [address] * Transfuse 1 unit platelets, apheresis (02/19/2020 1:21 PM EDT) Nima Armstrong MD NURSING TREATMENT OR DERABLES - BLOOD ADMIN * Transfuse 1 unit platelets, apheresis (02/19/2020 1:21 PM EDT) Nima Armstrong MD NURSING TREATMENT OR DERABLES - BLOOD ADMIN * Prepare Platelets, Apheresis (02/19/2020 10:20 AM EDT) Dispensed? Yes [facility] Blood specimen (specimen) 02/19/2020 10:20 AM EDT 02/19/2020 10:16 AM EDT Nima Armstrong MD BLOOD BANK PRODUCT O RDERABLES [facility] [place] [address] * (ABNORMAL) Differential, Automated (02/19/2020 8:00 AM EDT) Neutrophil % 73.6 % [facility] Neutrophil Absolute 7.33(H) 1.70 - 6.10 x10(3)/mc L [facility] Lymph % 11.0 % [facility] Lymphocytes Abs 1.1 0.9 - 3.2 x10(3)/mc L [facility] Monocyte % 12.0 % [facility] Monocyte Abs 1.2(H) 0.3 - 0.9 x10(3)/mc L [facility] Eos % 2.4 % [facility] Eosinophils Abs 0.2 0.0 - 0.4 x10(3)/mc L [facility] Basophil % 0.4 % [facility] Baso Absolute 0.0 0.0 - 0.1 x10(3)/mc L [facility] Immature Gran % 0.60 % [facility] Comment: Immature granulocytes(IG's)percentage and absolute count will include metamyelocytes, myelocytes, and promyelocytes. Blood smears from CBCs yielding IG's will be scanned manually for concordance. If this scan disagrees with the automated IG or if promyelocytes are noted, a manual differential will be performed. Immature Gran Absolute 0.06(H) 0.00 - 0.04 x10(3)/mc L [facility] Blood specimen (specimen) 02/19/2020 8:00 AM EDT 02/19/2020 8:29 AM EDT Narrative Resulting Agency Comment Spec In Lab Dariela Fitch MD HEMATOLOGY ORDERABLE S [facility] [place] [address] * (ABNORMAL) Hemogram (02/19/2020 8:00 AM EDT) White Blood Cell 10.0(H) 4.0 - 9.5 x10(3)/mc L [facility] Red Blood Cell 3.07(L) 4.58 - 5.54 x10(6)/mc L [facility] Hemoglobin 9.7(L) 13.7 - 16.5 gm/dL [facility] Hematocrit 28.8(L) 40.5 - 48.5 % [facility] Mean Cell Volume 93.8(H) 82.9 - 93.[address] [facility] Mean Cell Hemoglobin 31.6 27.5 - 32.[address] [facility] Mean Cell Hemoglobin Concentration 33.7 32.0 - 35.7 gm/dL [facility] Platelet 64(L) 145 - 357 x10(3)/mc L [facility] RDW Standard Deviation 55.1(H) 36.0 - 45.[address] [facility] RDW coefficient of variation 16.3(H) 11.4 - 13.8 % [facility] Mean Platelet Volume 12.0 7.6 - 12.[address] [facility] NRBC% auto 0.0 % [facility] NRBC Absolute 0.000 0.000 - 0.000 x10(3)/mc L [facility] Blood specimen (specimen) 02/19/2020 8:00 AM EDT 02/19/2020 8:29 AM EDT Narrative Resulting Agency Comment Spec In Lab Dariela Fitch MD HEMATOLOGY ORDERABLE S Performing Organization Address City/[facility]/ZIP Co de Phone Number [facility] [place] [address] * Lactate, whole blood, send to lab ([facility]P) (02/18/2020 6:30 PM EDT) Lactate WB 1.0 0.5 - 2.2 mmol/L [facility] Blood specimen (specimen) 02/18/2020 6:30 PM EDT 02/18/2020 6:36 PM EDT Narrative Resulting Agency Comment Spec In Lab Nima Armstrong MD CHEMISTRY ORDERABLES Performing Organization Address City/[facility]/ZIP Co de Phone Number [facility] [place] [address] * (ABNORMAL) Cryptosporidium Oocyst Antigen ([facility]P/APD) (02/18/2020 10:59 AM EDT) Cryptosporidium Antigen Positive( A) Negative [facility] Stool specimen (specimen) 02/18/2020 10:59 AM EDT 02/18/2020 12:59 PM EDT Narrative Resulting Agency Comment Spec In Lab Soniya Paulson MD MICROBIOLOGY - GENER AL ORDERABLES Performing Organization Address City/[facility]/ZIP Co de Phone Number [facility] [place] [address] * Giardia antigen ([facility]P/APD) (02/18/2020 10:59 AM EDT) Giardia Antigen Negative Negative [facility] Comment:Examination for othe r intestinal parasites requires foreign travel history. Stool specimen (specimen) 02/18/2020 10:59 AM EDT 02/18/2020 12:59 PM EDT Narrative Resulting Agency Comment Spec In Lab Soniya Paulson MD MICROBIOLOGY - GENER AL ORDERABLES Performing Organization Address [facility]/ZIP Co de Phone Number [facility] [place] [address] * Creatinine Level Body Fluid DARYN Drain (02/18/2020 10:59 AM EDT) Creatinine, Fluid 0.8 mg/dL [facility] Comment: No reference range is available for the specimen type submitted. ??The performance of this assay for the submitted type has not been validated and results should be interpreted accordingly and with regard to the patient's clinical status. Creat, Fld Type DARYN Drain [facility] DARYN Drain 02/18/2020 10:5 9 AM EDT 02/18/2020 11:36 AM EDT Narrative Resulting Agency Comment Spec In Lab Nima Armstrong MD BODY FLUIDS AND STOO LS ORDERABLES Performing Organization Address [facility] Co de Phone Number [facility] [place] [address] * (ABNORMAL) Basic Metabolic Panel (non-fasting) (02/18/2020 9:33 AM EDT) Glucose 113 65 - 199 mg/dL [facility] Comment:Diabetes: >=200 mg/d L plus symptoms Blood Urea Nitrogen 10 10 - 20 mg/dL [facility] Creatinine 0.82 0.80 - 1.50 mg/dL [facility] Sodium 139 135 - 145 mmol/L [facility] Potassium 3.6 3.5 - 5.0 mmol/L [facility] Comment: Please note: ??Patients with WBC >100,000 may have falsely elevated Potassium levels. ??For accurate Potassium quantification in these patients send serum separator tube (gold top) for subsequent determinations. ??Contact the Clinical Chemistry Laboratory if there are any questions. Chloride 109(H) 98 - 107 mmol/L [facility] Carbon Dioxide 23 22 - 31 mmol/L [facility] Anion Gap 7 5 - 15 mmol/L [facility] Calcium 7.4(L) 8.5 - 10.5 mg/dL [facility] Est Glomerular Filtration Rate 92 >=60 mL/min/1. 73 m?? [facility] Comment: The eGFR was calculated using the CKD-EPI equation. As with all creatinine based estimates of kidney function, eGFR values calculated with the CKD-EPI equation are not accurate in patients with acute kidney failure, extremes of body mass or the acutely ill. [email or web address]/[email or web address] eGFR 106 >=60 mL/min/1. 73 m?? [facility] Comment: The eGFR was calculated using the CKD-EPI equation. As with all creatinine based estimates of kidney function, eGFR values calculated with the CKD-EPI equation are not accurate in patients with acute kidney failure, extremes of body mass or the acutely ill. [email or web address] Blood specimen (specimen) 02/18/2020 9:33 AM EDT 02/18/2020 9:39 AM EDT Narrative Resulting Agency Comment Spec In Lab Nima Armstrong MD CHEMISTRY ORDERABLES Performing Organization Address City/State/[facility] Co de Phone Number [facility] [place] [address] * (ABNORMAL) Differential, Automated (02/18/2020 8:05 AM EDT) Neutrophil % 68.1 % [facility] Neutrophil Absolute 5.21 1.70 - 6.10 x10(3)/mc L [facility] Lymph % 14.8 % [facility] Lymphocytes Abs 1.1 0.9 - 3.2 x10(3)/mc L [facility] Monocyte % 13.3 % [facility] Monocyte Abs 1.0(H) 0.3 - 0.9 x10(3)/mc L [facility] Eos % 2.9 % [facility] Eosinophils Abs 0.2 0.0 - 0.4 x10(3)/[facility] Basophil % 0.4 % [facility] Baso Absolute 0.0 0.0 - 0.1 x10(3)/[facility] Immature Gran % 0.50 % [facility] Comment: Immature granulocytes(IG's)percentage and absolute count will include metamyelocytes, myelocytes, and promyelocytes. Blood smears from CBCs yielding IG's will be scanned manually for concordance. If this scan disagrees with the automated IG or if promyelocytes are noted, a manual differential will be performed. Immature Gran Absolute 0.04 0.00 - 0.04 x10(3)/[facility] Blood specimen (specimen) 02/18/2020 8:05 AM EDT 02/18/2020 8:33 AM EDT Narrative Resulting Agency Comment Spec In Lab Enrrique Patten MD HEMATOLOGY ORDERABLE S [facility] [place] [address] * (ABNORMAL) Hemogram (02/18/2020 8:05 AM EDT) White Blood Cell 7.6 4.0 - 9.5 x10(3)/[facility] Red Blood Cell 3.05(L) 4.58 - 5.54 x10(6)/ L [facility] Hemoglobin 9.6(L) 13.7 - 16.5 gm/dL [facility] Hematocrit 28.9(L) 40.5 - 48.5 % [facility] Mean Cell Volume 94.8(H) 82.9 - 93.[address] [facility] Mean Cell Hemoglobin 31.5 27.5 - 32.[address] [facility] Mean Cell Hemoglobin Concentration 33.2 32.0 - 35.7 gm/dL [facility] Platelet 78(L) 145 - 357 x10(3)/mc L [facility] RDW Standard Deviation 57.1(H) 36.0 - 45.[address] [facility] RDW coefficient of variation 16.3(H) 11.4 - 13.8 % [facility] Mean Platelet Volume 11.1 7.6 - 12.[address] [facility] NRBC% auto 0.0 % [facility] NRBC Absolute 0.000 0.000 - 0.000 x10(3)/mc L [facility] Blood specimen (specimen) 02/18/2020 8:05 AM EDT 02/18/2020 8:33 AM EDT Narrative Resulting Agency Comment Spec In Lab Enrrique Patten MD HEMATOLOGY ORDERABLE S Performing Organization Address City/State/[facility] Co de Phone Number [facility] [place] [address] * (ABNORMAL) Differential, Automated (02/17/2020 5:30 AM EDT) Neutrophil % 77.2 % [facility] Neutrophil Absolute 6.63(H) 1.70 - 6.10 x10(3)/mc L [facility] Lymph % 9.4 % [facility] Lymphocytes Abs 0.8(L) 0.9 - 3.2 x10(3)/mc L [facility] Monocyte % 12.3 % [facility] Monocyte Abs 1.1(H) 0.3 - 0.9 x10(3)/mc L [facility] Eos % 0.2 % [facility] Eosinophils Abs 0.0 0.0 - 0.4 x10(3)/mc L [facility] Basophil % 0.3 % [facility] Baso Absolute 0.0 0.0 - 0.1 x10(3)/mc L [facility] Immature Gran % 0.60 % [facility] Comment: Immature granulocytes(IG's)percentage and absolute count will include metamyelocytes, myelocytes, and promyelocytes. Blood smears from CBCs yielding IG's will be scanned manually for concordance. If this scan disagrees with the automated IG or if promyelocytes are noted, a manual differential will be performed. Immature Gran Absolute 0.05(H) 0.00 - 0.04 x10(3)/ L [facility] Blood specimen (specimen) 02/17/2020 5:30 AM EDT 02/17/2020 5:58 AM EDT Narrative Resulting Agency Comment Spec In Lab La Jean-Baptiste MD HEMATOLOGY ORDERABLE S [facility] [place] [address] * (ABNORMAL) Hemogram (02/17/2020 5:30 AM EDT) White Blood Cell 8.6 4.0 - 9.5 x10(3)/[facility] Red Blood Cell 3.09(L) 4.58 - 5.54 x10(6)/ L [facility] Hemoglobin 9.6(L) 13.7 - 16.5 gm/dL [facility] Hematocrit 28.3(L) 40.5 - 48.5 % [facility] Mean Cell Volume 91.6 82.9 - 93.[address] [facility] Mean Cell Hemoglobin 31.1 27.5 - 32.[address] [facility] Mean Cell Hemoglobin Concentration 33.9 32.0 - 35.7 gm/dL [facility] Platelet 86(L) 145 - 357 x10(3)/ L [facility] RDW Standard Deviation 54.6(H) 36.0 - 45.[address] [facility] RDW coefficient of variation 16.4(H) 11.4 - 13.8 % [facility] Mean Platelet Volume 10.7 7.6 - 12.[address] [facility] NRBC% auto 0.0 % [facility] NRBC Absolute 0.000 0.000 - 0.000 x10(3)/mc L [facility] Blood specimen (specimen) 02/17/2020 5:30 AM EDT 02/17/2020 5:58 AM EDT Narrative Resulting Agency Comment Spec In Lab La Jean-Baptiste MD HEMATOLOGY ORDERABLE S [facility] [place] [address] * (ABNORMAL) Basic Metabolic Panel (non-fasting) (02/17/2020 5:30 AM EDT) Glucose 115 65 - 199 mg/dL [facility] Comment:Diabetes: >=200 mg/d L plus symptoms Blood Urea Nitrogen 11 10 - 20 mg/dL [facility] Creatinine 0.78(L) 0.80 - 1.50 mg/dL [facility] Sodium 138 135 - 145 mmol/L [facility] Potassium 3.4(L) 3.5 - 5.0 mmol/L [facility] Comment: Please note: ??Patients with WBC >100,000 may have falsely elevated Potassium levels. ??For accurate Potassium quantification in these patients send serum separator tube (gold top) for subsequent determinations. ??Contact the Clinical Chemistry Laboratory if there are any questions. Chloride 109(H) 98 - 107 mmol/L [facility] Carbon Dioxide 22 22 - 31 mmol/L [facility] Anion Gap 7 5 - 15 mmol/L [facility] Calcium 6.8(Criti heath) 8.5 - 10.5 mg/dL [facility] Comment:Called by: laya, Read back by: Noah Gilbert, Date/Time:02/17/20 06:33. Est Glomerular Filtration Rate 93 >=60 mL/min/1. 73 m?? [facility] Comment: The eGFR was calculated using the CKD-EPI equation. As with all creatinine based estimates of kidney function, eGFR values calculated with the CKD-EPI equation are not accurate in patients with acute kidney failure, extremes of body mass or the acutely ill. [email or web address]/[email or web address] eGFR 108 >=60 mL/min/1. 73 m?? [facility] Comment: The eGFR was calculated using the CKD-EPI equation. As with all creatinine based estimates of kidney function, eGFR values calculated with the CKD-EPI equation are not accurate in patients with acute kidney failure, extremes of body mass or the acutely ill. [email or web address]/[email or web address] Blood specimen (specimen) 02/17/2020 5:30 AM EDT 02/17/2020 5:58 AM EDT Narrative Resulting Agency Comment Spec In Lab Nima Armstrong MD CHEMISTRY ORDERABLES Performing Organization Address City/[facility] Co de Phone Number [facility] [place] [address] * C. Difficile Screen (02/16/2020 10:00 PM EDT) Pathologist [facility] C Diff Interp Negative Negative [facility] Comment: Ag/Tox Neg C. diff?? [...] - GENER AL ORDERABLES Performing Organization Address City/[facility] Co de Phone Number [facility] [place] [address] * (ABNORMAL) Differential, Automated (02/16/2020 8:15 AM EDT) Neutrophil % 84.2 % [facility] Neutrophil Absolute 9.93(H) 1.70 - 6.10 x10(3)/mc L [facility] Lymph % 8.7 % [facility] Lymphocytes Abs 1.0 0.9 - 3.2 x10(3)/ L [facility] Monocyte % 6.1 % [facility] Monocyte Abs 0.7 0.3 - 0.9 x10(3)/[facility] Eos % 0.0 % [facility] Eosinophils Abs 0.0 0.0 - 0.4 x10(3)/ L [facility] Basophil % 0.2 % [facility] Baso Absolute 0.0 0.0 - 0.1 x10(3)/[facility] Immature Gran % 0.80 % [facility] Comment: Immature granulocytes(IG's)percentage and absolute count will include metamyelocytes, myelocytes, and promyelocytes. Blood smears from CBCs yielding IG's will be scanned manually for concordance. If this scan disagrees with the automated IG or if promyelocytes are noted, a manual differential will be performed. Immature Gran Absolute 0.09(H) 0.00 - 0.04 x10(3)/[facility] Blood specimen (specimen) 02/16/2020 8:15 AM EDT 02/16/2020 8:30 AM EDT Narrative Resulting Agency Comment Spec In Lab La Jean-Baptiste MD HEMATOLOGY ORDERABLE S [facility] [place] [address] * (ABNORMAL) Hemogram (02/16/2020 8:15 AM EDT) White Blood Cell 11.8(H) 4.0 - 9.5 x10(3)/ L [facility] Red Blood Cell 3.39(L) 4.58 - 5.54 x10(6)/[facility] Hemoglobin 10.5(L) 13.7 - 16.5 gm/dL [facility] Hematocrit 30.6(L) 40.5 - 48.5 % [facility] Mean Cell Volume 90.3 82.9 - 93.[address] [facility] Mean Cell Hemoglobin 31.0 27.5 - 32.[address] [facility] Mean Cell Hemoglobin Concentration 34.3 32.0 - 35.7 gm/dL [facility] Platelet 95(L) 145 - 357 x10(3)/mc L [facility] RDW Standard Deviation 53.4(H) 36.0 - 45.[address] [facility] RDW coefficient of variation 16.1(H) 11.4 - 13.8 % [facility] Mean Platelet Volume 12.0 7.6 - 12.9 [facility] NRBC% auto 0.0 % [facility] NRBC Absolute 0.000 0.000 - 0.000 x10(3)/mc L [facility] Blood specimen (specimen) 02/16/2020 8:15 AM EDT 02/16/2020 8:30 AM EDT Narrative Resulting Agency Comment Spec In Lab La Jean-Baptiste MD HEMATOLOGY ORDERABLE S [facility] [place] [address] * (ABNORMAL) Basic Metabolic Panel (non-fasting) (02/16/2020 8:15 AM EDT) Glucose 153 65 - 199 mg/dL [facility] Comment:Diabetes: >=200 mg/d L plus symptoms Blood Urea Nitrogen 13 10 - 20 mg/dL [facility] Creatinine 0.90 0.80 - 1.50 mg/dL [facility] Sodium 138 135 - 145 mmol/L [facility] Potassium 3.5 3.5 - 5.0 mmol/L [facility] Comment: Please note: ??Patients with WBC >100,000 may have falsely elevated Potassium levels. ??For accurate Potassium quantification in these patients send serum separator tube (gold top) for subsequent determinations. ??Contact the Clinical Chemistry Laboratory if there are any questions. Chloride 106 98 - 107 mmol/L [facility] Carbon Dioxide 22 22 - 31 mmol/L [facility] Anion Gap 10 5 - 15 mmol/L [facility] Calcium 7.1(L) 8.5 - 10.5 mg/dL [facility] Est Glomerular Filtration Rate 88 >=60 mL/min/1. 73 m?? [facility] Comment: The eGFR was calculated using the CKD-EPI equation. As with all creatinine based estimates of kidney function, eGFR values calculated with the CKD-EPI equation are not accurate in patients with acute kidney failure, extremes of body mass or the acutely ill. [email or web address]://[employer]/[facility] eGFR 102 >=60 mL/min/1. 73 m?? [facility] Comment: The eGFR was calculated using the CKD-EPI equation. As with all creatinine based estimates of kidney function, eGFR values calculated with the CKD-EPI equation are not accurate in patients with acute kidney failure, extremes of body mass or the acutely ill. [email or web address] Blood specimen (specimen) 02/16/2020 8:15 AM EDT 02/16/2020 8:30 AM EDT Narrative Resulting Agency Comment Spec In Lab Nima Armstrong MD CHEMISTRY ORDERABLES [facility] [place] [address] * (ABNORMAL) Hemogram (02/15/2020 6:05 PM EDT) White Blood Cell 9.1 4.0 - 9.5 x10(3)/mc L [facility] Red Blood Cell 3.28(L) 4.58 - 5.54 x10(6)/mc L [facility] Hemoglobin 10.3(L) 13.7 - 16.5 gm/dL [facility] Hematocrit 30.4(L) 40.5 - 48.5 % [facility] Mean Cell Volume 92.7 82.9 - 93.[address] [facility] Mean Cell Hemoglobin 31.4 27.5 - 32.[address] [facility] Mean Cell Hemoglobin Concentration 33.9 32.0 - 35.7 gm/dL [facility] Platelet 99(L) 145 - 357 x10(3)/mc L [facility] RDW Standard Deviation 53.1(H) 36.0 - 45.0 [facility] RDW coefficient of variation 15.6(H) 11.4 - 13.8 % [facility] Mean Platelet Volume 11.8 7.6 - 12.[address] [facility] NRBC% auto 0.0 % [facility] NRBC Absolute 0.000 0.000 - 0.000 x10(3)/ L [facility] Blood specimen (specimen) 02/15/2020 6:05 PM EDT 02/15/2020 6:21 PM EDT Narrative Resulting Agency Comment Spec In Lab Nima Armstrong MD HEMATOLOGY ORDERABLE S [facility] [place] [address] * Transfuse RBC (02/15/2020 4:23 PM EDT) Nima Armstrong MD NURSING TREATMENT OR DERABLES - BLOOD ADMIN * Transfuse RBC (02/15/2020 4:23 PM EDT) Nima Armstrong MD NURSING TREATMENT OR DERABLES - BLOOD ADMIN * (ABNORMAL) Hemogram (02/15/2020 12:30 PM EDT) White Blood Cell 7.8 4.0 - 9.5 x10(3)/mc L [facility] Red Blood Cell 2.63(L) 4.58 - 5.54 x10(6)/mc L [facility] Hemoglobin 8.3(L) 13.7 - 16.5 gm/dL [facility] Hematocrit 24.4(L) 40.5 - 48.5 % [facility] Mean Cell Volume 92.8 82.9 - 93.[address] [facility] Mean Cell Hemoglobin 31.6 27.5 - 32.[address] [facility] Mean Cell Hemoglobin Concentration 34.0 32.0 - 35.7 gm/dL [facility] Platelet 99(L) 145 - 357 x10(3)/mc L [facility] RDW Standard Deviation 52.1(H) 36.0 - 45.0 [facility] RDW coefficient of variation 15.3(H) 11.4 - 13.8 % [facility] Mean Platelet Volume 11.6 7.6 - 12.9 [facility] NRBC% auto 0.0 % [facility] NRBC Absolute 0.000 0.000 - 0.000 x10(3)/mc L [facility] Blood specimen (specimen) 02/15/2020 12:30 PM EDT 02/15/2020 12:46 PM EDT Narrative Resulting Agency Comment Spec In Lab Nima Armstrong MD HEMATOLOGY ORDERABLE S [facility] [place] [address] * Prepare RBC (02/15/2020 11:45 AM EDT) Dispensed? Yes [facility] Blood specimen (specimen) 02/15/2020 11:45 AM EDT 02/15/2020 11:44 AM EDT Nima Armstrong MD BLOOD BANK PRODUCT O RDERABLES [facility] [place] [address] * Transfuse RBC (02/15/2020 10:50 AM EDT) Nima Armstrong MD NURSING TREATMENT OR DERABLES - BLOOD ADMIN * Prepare RBC (02/15/2020 7:20 AM EDT) Dispensed? Yes [facility] Blood specimen (specimen) 02/15/2020 7:20 AM EDT 02/15/2020 7:17 AM EDT Nima Armstrong MD BLOOD BANK PRODUCT O RDERABLES [facility] [place] [address] * (ABNORMAL) Hemogram (02/15/2020 5:45 AM EDT) White Blood Cell 6.4 4.0 - 9.5 x10(3)/mc L [facility] Red Blood Cell 2.00(L) 4.58 - 5.54 x10(6)/mc L [facility] Hemoglobin 6.3(L) 13.7 - 16.5 gm/dL [facility] Hematocrit 19.0(L) 40.5 - 48.5 % [facility] Mean Cell Volume 95.0(H) 82.9 - 93.[address] [facility] Mean Cell Hemoglobin 31.5 27.5 - 32.[address] [facility] Mean Cell Hemoglobin Concentration 33.2 32.0 - 35.7 gm/dL [facility] Platelet 94(L) 145 - 357 x10(3)/mc L [facility] RDW Standard Deviation 51.5(H) 36.0 - 45.0 [facility] RDW coefficient of variation 14.7(H) 11.4 - 13.8 % [facility] Mean Platelet Volume 11.9 7.6 - 12.9 [facility] NRBC% auto 0.0 % [facility] NRBC Absolute 0.000 0.000 - 0.000 x10(3)/mc L [facility] Blood specimen (specimen) 02/15/2020 5:45 AM EDT 02/15/2020 5:52 AM EDT Narrative Resulting Agency Comment Spec In Lab Nima Armstrong MD HEMATOLOGY ORDERABLE S Performing Organization Address City/[facility]/ZIP Co de Phone Number [facility] [place] [address] * Scan, Peripheral Blood (02/15/2020 4:20 AM EDT) Pathologist [facility] Plat estimate Decreased [facility] RBC Morphology Abnormal [facility] Macrocyte 1-5 /HPF [facility] Microcyte 1-5 /HPF [facility] Hypochromia Moderate [facility] Toxic Granulation Present [facility] Blood specimen (specimen) 02/15/2020 4:20 AM EDT 02/15/2020 4:37 AM EDT Narrative Resulting Agency Comment Spec In Lab Enrrique Patten MD HEMATOLOGY ORDERABLE S Performing Organization Address City/[facility]/ZIP Co de Phone Number [facility] [place] [address] * Differential, Automated (02/15/2020 4:20 AM EDT) [facility] Neutrophil % 68.5 % [facility] Neutrophil Absolute 4.46 1.70 - 6.10 x10(3)/[facility] LABORATORY Lymph % 19.1 % [facility] Lymphocytes Abs 1.2 0.9 - 3.2 x10(3)/[facility] LABORATORY Monocyte % 8.5 % [facility] Monocyte Abs 0.6 0.3 - 0.9 x10(3)/[facility] LABORATORY Eos % 3.1 % [facility] Eosinophils Abs 0.2 0.0 - 0.4 x10(3)/[facility] [facility] Basophil % 0.3 % [facility] Baso Absolute 0.0 0.0 - 0.1 x10(3)/[facility] LABORATORY Immature Gran % 0.50 % [facility] Comment: Immature granulocytes(IG's)percentage and absolute count will include metamyelocytes, myelocytes, and promyelocytes. Blood smears from CBCs yielding IG's will be scanned manually for concordance. If this scan disagrees with the automated IG or if promyelocytes are noted, a manual differential will be performed. Immature Gran Absolute 0.03 0.00 - 0.04 x10(3)/[facility] LABORATORY Blood specimen (specimen) 02/15/2020 4:20 AM EDT 02/15/2020 4:37 AM EDT Narrative Resulting Agency Comment Spec In Lab Enrrique Patten MD HEMATOLOGY ORDERABLE S [facility] [place] [address] * (ABNORMAL) Hemogram (02/15/2020 4:20 AM EDT) White Blood Cell 6.5 4.0 - 9.5 x10(3)/mc L [facility] Red Blood Cell 2.03(L) 4.58 - 5.54 x10(6)/mc L [facility] Hemoglobin 6.5(L) 13.7 - 16.5 gm/dL [facility] Hematocrit 19.4(L) 40.5 - 48.5 % [facility] Mean Cell Volume 95.6(H) 82.9 - 93.[address] [facility] Mean Cell Hemoglobin 32.0 27.5 - 32.[address] [facility] Mean Cell Hemoglobin Concentration 33.5 32.0 - 35.7 gm/dL [facility] Platelet 99(L) 145 - 357 x10(3)/mc L [facility] RDW Standard Deviation 51.6(H) 36.0 - 45.[address] [facility] RDW coefficient of variation 14.6(H) 11.4 - 13.8 % [facility] Mean Platelet Volume 11.9 7.6 - 12.[address] [facility] NRBC% auto 0.0 % [facility] NRBC Absolute 0.000 0.000 - 0.000 x10(3)/mc L [facility] Blood specimen (specimen) 02/15/2020 4:20 AM EDT 02/15/2020 4:37 AM EDT Narrative Resulting Agency Comment Spec In Lab Enrrique Patten MD HEMATOLOGY ORDERABLE S [facility] [place] [address] * (ABNORMAL) Basic Metabolic Panel (non-fasting) (02/15/2020 4:20 AM EDT) Glucose 104 65 - 199 mg/dL [facility] Comment:Diabetes: >=200 mg/d L plus symptoms Blood Urea Nitrogen 26(H) 10 - 20 mg/dL [facility] Creatinine 1.13 0.80 - 1.50 mg/dL [facility] Sodium 137 135 - 145 mmol/L [facility] Comment:result rechecked-[place] Potassium 3.8 3.5 - 5.0 mmol/L [facility] Comment: result rechecked-KS Please note: ??Patients with WBC >100,000 may have falsely elevated Potassium levels. ??For accurate Potassium quantification in these patients send serum separator tube (gold top) for subsequent determinations. ??Contact the Clinical Chemistry Laboratory if there are any questions. Chloride 107 98 - 107 mmol/L [facility] Comment:result rechecked-[place] Carbon Dioxide 23 22 - 31 mmol/L [facility] Anion Gap 7 5 - 15 mmol/L [facility] Calcium 7.0(L) 8.5 - 10.5 mg/dL [facility] Est Glomerular Filtration Rate 67 >=60 mL/min/1. 73 m?? [facility] Comment: The eGFR was calculated using the CKD-EPI equation. As with all creatinine based estimates of kidney function, eGFR values calculated with the CKD-EPI equation are not accurate in patients with acute kidney failure, extremes of body mass or the acutely ill. [email or web address]://[employer]/[facility] eGFR 78 >=60 mL/min/1. 73 m?? [facility] Comment: The eGFR was calculated using the CKD-EPI equation. As with all creatinine based estimates of kidney function, eGFR values calculated with the CKD-EPI equation are not accurate in patients with acute kidney failure, extremes of body mass or the acutely ill. [email or web address]/[facility]RI[facility] Blood specimen (specimen) 02/15/2020 4:20 AM EDT 02/15/2020 4:37 AM EDT Narrative Resulting Agency Comment Spec In Lab Nima Armstrong MD CHEMISTRY ORDERABLES [facility] [place] [address] * SCAN DOC: LAB (02/15/2020 12:00 AM EDT) Narrative 02/15/2020 12:00 AM EDT Ordered by an unspecified provider. Scanning Provider MEDIA MGR SCAN EXT O RDR/RSLT * KAMAR, legs, multiple levels (02/14/2020 12:28 PM EDT) VB Text Report Department: Vascular Surgery Lab Patient: [id number] (WALLY AGUILAR) CPT: 22208 ICD10: I70.211;I73.9; C79.89;C67.9 Referring Physician: NIMA ARMSTRONG [...] Brachial Artery ?86 ? Common Femoral Artery ?[place]-Biphasi c ?? Popliteal Artery ? [place]-Biphasic ?? Dorsalis Pedis (Ankle) Artery ?61 ?0.71 ??[place]-Biphasi c ?? Posterior Tibial (Ankle) Artery ??73 ?0.85 ??[place]-Biphasi c ?? Interpretation : RIGHT: Moderately severe [...] Armstrong MD VASCULAR ORDERABLES Performing Organization Address City/[facility]/ZIP Co de Phone Number [facility]ASCU[facility] * (ABNORMAL) Albumin Level (02/14/2020 1:50 AM EDT) Albumin 2.2(L) 3.2 - 5.2 gm/dL [facility] Blood specimen (specimen) 02/14/2020 1:50 AM EDT 02/14/2020 2:04 AM EDT Narrative Resulting Agency Comment Spec In Lab Nima Armstrong MD CHEMISTRY ORDERABLES Performing Organization Address [facility] Co de Phone Number [facility] [place] [address] * (ABNORMAL) Differential, Automated (02/14/2020 1:50 AM EDT) Neutrophil % 82.8 % [facility] Neutrophil Absolute 9.59(H) 1.70 - 6.10 x10(3)/mc L [facility] Lymph % 7.3 % [facility] Lymphocytes Abs 0.8(L) 0.9 - 3.2 x10(3)/mc L [facility] Monocyte % 9.4 % [facility] Monocyte Abs 1.1(H) 0.3 - 0.9 x10(3)/mc L [facility] Eos % 0.0 % [facility] Eosinophils Abs 0.0 0.0 - 0.4 x10(3)/[facility] LABORATORY Basophil % 0.2 % [facility] Baso Absolute 0.0 0.0 - 0.1 x10(3)/[facility] LABORATORY Immature Gran % 0.30 % [facility] Comment: Immature granulocytes(IG's)percentage and absolute count will include metamyelocytes, myelocytes, and promyelocytes. Blood smears from CBCs yielding IG's will be scanned manually for concordance. If this scan disagrees with the automated IG or if promyelocytes are noted, a manual differential will be performed. Immature Gran Absolute 0.04 0.00 - 0.04 x10(3)/[facility] LABORATORY Blood specimen (specimen) 02/14/2020 1:50 AM EDT 02/14/2020 1:56 AM EDT Narrative Resulting Agency Comment Spec In Lab Enrrique Patten MD HEMATOLOGY ORDERABLE S [facility] [place] [address] * (ABNORMAL) Hemogram (02/14/2020 1:50 AM EDT) White Blood Cell 11.6(H) 4.0 - 9.5 x10(3)/[facility] LABORATORY Red Blood Cell 2.47(L) 4.58 - 5.54 x10(6)/[facility] LABORATORY Hemoglobin 8.0(L) 13.7 - 16.5 gm/dL [facility] Hematocrit 23.5(L) 40.5 - 48.5 % [facility] Mean Cell Volume 95.1(H) 82.9 - 93.[address] [facility] Mean Cell Hemoglobin 32.4(H) 27.5 - 32.[address] [facility] Mean Cell Hemoglobin Concentration 34.0 32.0 - 35.7 gm/dL [facility] Platelet 67(L) 145 - 357 x10(3)/mc L [facility] RDW Standard Deviation 51.4(H) 36.0 - 45.[address] [facility] RDW coefficient of variation 14.6(H) 11.4 - 13.8 % [facility] Mean Platelet Volume 12.0 7.6 - 12.[address] [facility] NRBC% auto 0.0 % [facility] NRBC Absolute 0.000 0.000 - 0.000 x10(3)/mc L [facility] Blood specimen (specimen) 02/14/2020 1:50 AM EDT 02/14/2020 1:56 AM EDT Narrative Resulting Agency Comment Spec In Lab Enrrique Patten MD HEMATOLOGY ORDERABLE S Performing Organization Address City/State/[facility] Co de Phone Number [facility] [place] [address] * (ABNORMAL) Basic Metabolic Panel (non-fasting) (02/14/2020 1:50 AM EDT) Glucose 142 65 - 199 mg/dL [facility] Comment:Diabetes: >=200 mg/d L plus symptoms Blood Urea Nitrogen 31(H) 10 - 20 mg/dL [facility] Creatinine 1.21 0.80 - 1.50 mg/dL [facility] Sodium 138 135 - 145 mmol/L [facility] Potassium 5.0 3.5 - 5.0 mmol/L [facility] Comment: Please note: ??Patients with WBC >100,000 may have falsely elevated Potassium levels. ??For accurate Potassium quantification in these patients send serum separator tube (gold top) for subsequent determinations. ??Contact the Clinical Chemistry Laboratory if there are any questions. Chloride 106 98 - 107 mmol/L [facility] Carbon Dioxide 22 22 - 31 mmol/L [facility] Anion Gap 10 5 - 15 mmol/L [facility] Calcium 7.3(L) 8.5 - 10.5 mg/dL [facility] Est Glomerular Filtration Rate 62 >=60 mL/min/1. 73 m?? [facility] Comment: The eGFR was calculated using the CKD-EPI equation. As with all creatinine based estimates of kidney function, eGFR values calculated with the CKD-EPI equation are not accurate in patients with acute kidney failure, extremes of body mass or the acutely ill. http://[employer]/[facility] eGFR 71 >=60 mL/min/1. 73 m?? [facility] Comment: The eGFR was calculated using the CKD-EPI equation. As with all creatinine based estimates of kidney function, eGFR values calculated with the CKD-EPI equation are not accurate in patients with acute kidney failure, extremes of body mass or the acutely ill. [email or web address]://[employer]/[facility]Enkf Blood specimen (specimen) 02/14/2020 1:50 AM EDT 02/14/2020 1:56 AM EDT Narrative Resulting Agency Comment Spec In Lab Nima Armstrong MD CHEMISTRY ORDERABLES [facility] [place] [address] * (ABNORMAL) Differential, Automated (02/13/2020 5:50 PM EDT) Neutrophil % 83.9 % [facility] Neutrophil Absolute 8.30(H) 1.70 - 6.10 x10(3)/mc L [facility] Lymph % 4.8 % [facility] Lymphocytes Abs 0.5(L) 0.9 - 3.2 x10(3)/mc L [facility] Monocyte % 10.5 % [facility] Monocyte Abs 1.0(H) 0.3 - 0.9 x10(3)/mc L [facility] Eos % 0.0 % [facility] Eosinophils Abs 0.0 0.0 - 0.4 x10(3)/mc L [facility] Basophil % 0.3 % [facility] Baso Absolute 0.0 0.0 - 0.1 x10(3)/[facility] LABORATORY Immature Gran % 0.50 % [facility] Comment: Immature granulocytes(IG's)percentage and absolute count will include metamyelocytes, myelocytes, and promyelocytes. Blood smears from CBCs yielding IG's will be scanned manually for concordance. If this scan disagrees with the automated IG or if promyelocytes are noted, a manual differential will be performed. Immature Gran Absolute 0.05(H) 0.00 - 0.04 x10(3)/[facility] LABORATORY Blood specimen (specimen) 02/13/2020 5:50 PM EDT 02/13/2020 6:08 PM EDT Narrative Resulting Agency Comment Spec In Lab Enrrique Patten MD HEMATOLOGY ORDERABLE S [facility] [place] [address] * (ABNORMAL) Hemogram (02/13/2020 5:50 PM EDT) White Blood Cell 9.9(H) 4.0 - 9.5 x10(3)/[facility] LABORATORY Red Blood Cell 2.60(L) 4.58 - 5.54 x10(6)/[facility] LABORATORY Hemoglobin 8.5(L) 13.7 - 16.5 gm/dL [facility] Comment: This result has been called to CHANTALE CRUZ by Yeni Haji on 02 13 2020 at 1826, and has been read back. Hematocrit 24.9(L) 40.5 - 48.5 % [facility] Mean Cell Volume 95.8(H) 82.9 - 93.[address] [facility] Mean Cell Hemoglobin 32.7(H) 27.5 - 32.[address] [facility] Mean Cell Hemoglobin Concentration 34.1 32.0 - 35.7 gm/dL [facility] Platelet 73(L) 145 - 357 x10(3)/mc L [facility] RDW Standard Deviation 51.5(H) 36.0 - 45.[address] [facility] RDW coefficient of variation 14.6(H) 11.4 - 13.8 % [facility] Mean Platelet Volume 12.0 7.6 - 12.[address] [facility] NRBC% auto 0.0 % [facility] NRBC Absolute 0.000 0.000 - 0.000 x10(3)/mc L [facility] Blood specimen (specimen) 02/13/2020 5:50 PM EDT 02/13/2020 6:08 PM EDT Narrative Resulting Agency Comment Spec In Lab Enrrique Patten MD HEMATOLOGY ORDERABLE S [facility] [place] [address] * (ABNORMAL) Basic Metabolic Panel (non-fasting) (02/13/2020 5:50 PM EDT) Glucose 189 65 - 199 mg/dL [facility] Comment:Diabetes: >=200 mg/d L plus symptoms Blood Urea Nitrogen 32(H) 10 - 20 mg/dL [facility] Creatinine 1.11 0.80 - 1.50 mg/dL [facility] Sodium 138 135 - 145 mmol/L [facility] Potassium 4.9 3.5 - 5.0 mmol/L [facility] Comment: Please note: ??Patients with WBC >100,000 may have falsely elevated Potassium levels. ??For accurate Potassium quantification in these patients send serum separator tube (gold top) for subsequent determinations. ??Contact the Clinical Chemistry Laboratory if there are any questions. Chloride 106 98 - 107 mmol/L [facility] Carbon Dioxide 20(L) 22 - 31 mmol/L [facility] Anion Gap 12 5 - 15 mmol/L [facility] Calcium 6.9(Criti heath) 8.5 - 10.5 mg/dL [facility] Comment:Called by: veronica, Read back by: jemal ramirez_, Date/Time:02/13/20 18:45. Est Glomerular Filtration Rate 68 >=60 mL/min/1. 73 m?? [facility] Comment: The eGFR was calculated using the CKD-EPI equation. As with all creatinine based estimates of kidney function, eGFR values calculated with the CKD-EPI equation are not accurate in patients with acute kidney failure, extremes of body mass or the acutely ill. http://[employer] eGFR 79 >=60 mL/min/1. 73 m?? [facility] Comment: The eGFR was calculated using the CKD-EPI equation. As with all creatinine based estimates of kidney function, eGFR values calculated with the CKD-EPI equation are not accurate in patients with acute kidney failure, extremes of body mass or the acutely ill. [email or web address] Blood specimen (specimen) 02/13/2020 5:50 PM EDT 02/13/2020 6:08 PM EDT Narrative Resulting Agency Comment Spec In Lab Nima Armstrong MD CHEMISTRY ORDERABLES Performing Organization Address City/State/[facility] Co de Phone Number [facility] [place] [address] * (ABNORMAL) BLOOD GAS 2 ARTERIAL (02/13/2020 3:59 PM EDT) pH, Arterial 7.37 7.35 - 7.45 [facility] PCO2, Arterial 39 35 - [address] [facility] PO2, Arterial 227(H) 85 - [address] [facility] Bicarbonate, Arterial 22.2 20.0 - 26.0 mmol/L [facility] Base Excess, Arterial -3.0 -3.0 - 3.0 mmol/L [facility] Hgb Blood Gas 8.4(L) 13.7 - 16.5 gm/dL [facility] Oxyhemoglobin, Arterial 97.9(H) 94.0 - 97.0 % [facility] Carboxyhemoglob in, Arterial 0.9 % [facility] Comment: Nonsmokers: 0.5-1.5% COHB Smokers: Variable, but usually less than 10% Toxic: 20-30% COHB Lethal: Greater than 60% COHB Methemoglobin, Arterial 0.3 <=1.5 % [facility] Na Whole Blood 128(L) 135 - 145 mmol/L [facility] K Whole Blood 4.5 3.5 - 5.0 mmol/L [facility] Comment: Please note: Patients with WBC >100,000 may have falsely elevated Potassium levels. Contact the Clinical Chemistry Laboratory if there are any questions. ICa Whole Blood 1.07(L) 1.15 - 1.33 mmol/L [facility] Comment: Note: ??Total bilirubin higher than 20 mg/dL may lead to falsely low ionized calcium. CL Whole Blood 109(H) 98 - 107 mmol/L [facility] Gluc Whole Bld 172 65 - 199 mg/dL [facility] Comment:Diabetes: >=200 mg/d L plus symptoms. Lactate WB 1.7 0.5 - 2.2 mmol/L [facility] Blood specimen (specimen) 02/13/2020 3:59 PM EDT 02/13/2020 3:59 PM EDT Nima Armstrong MD POINT OF CARE TEST O RDERABLES [facility] [place] [address] * Specimen to Pathology (02/13/2020 3:54 PM EDT) AP Specimen 02/13/2020 3:54 PM EDT 02/13/2020 3:[address] [facility] - 02/13/2020 3:54 PM EDT Specimen requisition ordered. ??Separate Pathology report to follow Nima Armstrong MD PATHOLOGY/CYTOLOGY O ESCOBAR Performing Organization Address [facility]/ZIP Co de Phone Number [facility] [place] [address] * Specimen to Pathology (02/13/2020 3:22 PM EDT) AP Specimen 02/13/2020 3:22 PM EDT 02/13/2020 3:[address] [facility] - 02/13/2020 3:22 PM EDT Specimen requisition ordered. ??Separate Pathology report to follow Nima Armstrong MD PATHOLOGY/CYTOLOGY O ESCOBAR Performing Organization Address [facility] [place] [address] * (ABNORMAL) BLOOD GAS 2 ARTERIAL (02/13/2020 2:57 PM EDT) pH, Arterial 7.36 7.35 - 7.45 [facility] PCO2, Arterial 44 35 - [address] [facility] PO2, Arterial 231(H) 85 - [address] [facility] Bicarbonate, Arterial 24.1 20.0 - 26.0 mmol/L [facility] Base Excess, Arterial -1.4 -3.0 - 3.0 mmol/L [facility] Hgb Blood Gas 8.6(L) 13.7 - 16.5 gm/dL [facility] Oxyhemoglobin, Arterial 98.5(H) 94.0 - 97.0 % [facility] Carboxyhemoglob in, Arterial 0.6 % [facility] Comment: Nonsmokers: 0.5-1.5% COHB Smokers: Variable, but usually less than 10% Toxic: 20-30% COHB Lethal: Greater than 60% COHB Methemoglobin, Arterial 0.1 <=1.5 % [facility] Na Whole Blood 128(L) 135 - 145 mmol/L [facility] K Whole Blood 4.7 3.5 - 5.0 mmol/L [facility] Comment: Please note: Patients with WBC >100,000 may have falsely elevated Potassium levels. Contact the Clinical Chemistry Laboratory if there are any questions. ICa Whole Blood 1.02(L) 1.15 - 1.33 mmol/L [facility] Comment: Note: ??Total bilirubin higher than 20 mg/dL may lead to falsely low ionized calcium. CL Whole Blood 109(H) 98 - 107 mmol/L [facility] Gluc Whole Bld 169 65 - 199 mg/dL [facility] Comment:Diabetes: >=200 mg/d L plus symptoms. Lactate WB 1.7 0.5 - 2.2 mmol/L [facility] Blood specimen (specimen) 02/13/2020 2:57 PM EDT 02/13/2020 2:57 PM EDT Nima Armstrong MD POINT OF CARE TEST O ESCOBAR Performing Organization Address [facility]/ZIP Co de Phone Number [facility] [place] [address] * Specimen to Pathology (02/13/2020 2:26 PM EDT) AP Specimen 02/13/2020 2:26 PM EDT 02/13/2020 2:[address] [facility] - 02/13/2020 2:49 PM EDT Specimen requisition ordered. ??Separate Pathology report to follow Resulting Agency Comment Spec In Lab Nima Armstrong MD PATHOLOGY/CYTOLOGY O RDCATE Performing Organization Address [facility]/ZIP Co de Phone Number [facility] [place] [address] * Specimen to Pathology (02/13/2020 2:12 PM EDT) AP Specimen 02/13/2020 2:12 PM EDT 02/13/2020 2:[address] [facility] - 02/13/2020 2:49 PM EDT Specimen requisition ordered. ??Separate Pathology report to follow Resulting Agency Comment Spec In Lab Nima Armstrong MD PATHOLOGY/CYTOLOGY O ESCOBAR [facility] [place] [address] * (ABNORMAL) BLOOD GAS 2 ARTERIAL (02/13/2020 1:50 PM EDT) pH, Arterial 7.30(L) 7.35 - 7.45 [facility] PCO2, Arterial 45 35 - [address] [facility] PO2, Arterial 212(H) 85 - [address] [facility] Bicarbonate, Arterial 21.9 20.0 - 26.0 mmol/L [facility] Base Excess, Arterial -4.5(L) -3.0 - 3.0 mmol/L [facility] Hgb Blood Gas 9.0(L) 13.7 - 16.5 gm/dL [facility] Oxyhemoglobin, Arterial 98.2(H) 94.0 - 97.0 % [facility] Carboxyhemoglob in, Arterial 0.7 % [facility] Comment: Nonsmokers: 0.5-1.5% COHB Smokers: Variable, but usually less than 10% Toxic: 20-30% COHB Lethal: Greater than 60% COHB Methemoglobin, Arterial 0.3 <=1.5 % [facility] Na Whole Blood 129(L) 135 - 145 mmol/L [facility] K Whole Blood 4.6 3.5 - 5.0 mmol/L [facility] Comment: Please note: Patients with WBC >100,000 may have falsely elevated Potassium levels. Contact the Clinical Chemistry Laboratory if there are any questions. ICa Whole Blood 1.09(L) 1.15 - 1.33 mmol/L [facility] Comment: Note: ??Total bilirubin higher than 20 mg/dL may lead to falsely low ionized calcium. CL Whole Blood 109(H) 98 - 107 mmol/L [facility] Gluc Whole Bld 155 65 - 199 mg/dL [facility] Comment:Diabetes: >=200 mg/d L plus symptoms. Lactate WB 1.6 0.5 - 2.2 mmol/L [facility] FIO2 Art 50 % [facility] Flow Art 2.0 LPM [facility] PF Ratio Art 424 [facility] Temp Art 37.0 Celsius [facility] Blood specimen (specimen) 02/13/2020 1:50 PM EDT 02/13/2020 1:50 PM EDT Nima Armstrong MD POINT OF CARE TEST O ESCOBAR Performing Organization Address [facility]/ZIP Co de Phone Number [facility] [place] [address] * Specimen to Pathology (02/13/2020 1:35 PM EDT) AP Specimen 02/13/2020 1:35 PM EDT 02/13/2020 2:[address] [facility] - 02/13/2020 2:49 PM EDT Specimen requisition ordered. ??Separate Pathology report to follow Resulting Agency Comment Spec In Lab Nima Armstrong MD PATHOLOGY/CYTOLOGY O ESCOBAR Performing Organization Address [facility]/ZIP Co de Phone Number [facility] [place] [address] * Specimen to Pathology (02/13/2020 1:29 PM EDT) AP Specimen 02/13/2020 1:29 PM EDT 02/13/2020 2:[address] [facility] - 02/13/2020 2:49 PM EDT Specimen requisition ordered. ??Separate Pathology report to follow Resulting Agency Comment Spec In Lab Nima Armstrong MD PATHOLOGY/CYTOLOGY O ESCOBAR Performing Organization Address [facility]/ZIP Co de Phone Number [facility] [place] [address] * Specimen to Pathology (02/13/2020 1:20 PM EDT) AP Specimen 02/13/2020 1:20 PM EDT 02/13/2020 1:[address] [facility] - 02/13/2020 1:20 PM EDT Specimen requisition ordered. ??Separate Pathology report to follow Nima Armstrong MD PATHOLOGY/CYTOLOGY O ESCOBAR Performing Organization Address [facility] Co de Phone Number [facility] [place] [address] * Specimen to Pathology (02/13/2020 1:15 PM EDT) AP Specimen 02/13/2020 1:15 PM EDT 02/13/2020 1:[address] [facility] - 02/13/2020 1:15 PM EDT Specimen requisition ordered. ??Separate Pathology report to follow Nima Armstrong MD PATHOLOGY/CYTOLOGY O ESCOBAR Performing Organization Address [facility] [facility] Co de Phone Number [facility] [place] [address] * Specimen to Pathology (02/13/2020 12:57 PM EDT) AP Specimen 02/13/2020 12:5 7 PM EDT 02/13/2020 12:[address] [facility] - 02/13/2020 12:57 PM EDT Specimen requisition ordered. ??Separate Pathology report to follow Nima Armstrong MD PATHOLOGY/CYTOLOGY O ESCOBAR Performing Organization Address [facility] Co de Phone Number [facility] [place] [address] * (ABNORMAL) BLOOD GAS 2 ARTERIAL (02/13/2020 12:44 PM EDT) pH, Arterial 7.25(Criti heath) 7.35 - 7.45 [facility] Comment:Noted by instrument checker. PCO2, Arterial 47(H) 35 - [address] [facility] PO2, Arterial 216(H) 85 - [address] [facility] Bicarbonate, Arterial 20.0 20.0 - 26.0 mmol/L [facility] Base Excess, Arterial -7.3(L) -3.0 - 3.0 mmol/L [facility] Hgb Blood Gas 10.1(L) 13.7 - 16.5 gm/dL [facility] Oxyhemoglobin, Arterial 98.4(H) 94.0 - 97.0 % [facility] Carboxyhemoglob in, Arterial 0.4 % [facility] Comment: Nonsmokers: 0.5-1.5% COHB Smokers: Variable, but usually less than 10% Toxic: 20-30% COHB Lethal: Greater than 60% COHB Methemoglobin, Arterial 0.3 <=1.5 % [facility] Na Whole Blood 128(L) 135 - 145 mmol/L [facility] K Whole Blood 4.7 3.5 - 5.0 mmol/L [facility] Comment: Please note: Patients with WBC >100,000 may have falsely elevated Potassium levels. Contact the Clinical Chemistry Laboratory if there are any questions. ICa Whole Blood 1.11(L) 1.15 - 1.33 mmol/L [facility] Comment: Note: ??Total bilirubin higher than 20 mg/dL may lead to falsely low ionized calcium. CL Whole Blood 108(H) 98 - 107 mmol/L [facility] Gluc Whole Bld 138 65 - 199 mg/dL [facility] Comment:Diabetes: >=200 mg/d L plus symptoms. Lactate WB 2.2 0.5 - 2.2 mmol/L [facility] FIO2 Art 50 % [facility] PF Ratio Art 432 [facility] Blood specimen (specimen) 02/13/2020 12:44 PM EDT 02/13/2020 12:44 PM EDT Nima Armstrong MD POINT [place] [address] * Specimen to Pathology (02/13/2020 11:56 AM EDT) AP Specimen 02/13/2020 11:5 6 AM EDT 02/13/2020 11:[address] [facility] - 02/13/2020 11:56 AM EDT Specimen requisition ordered. ??Separate Pathology report to follow Nima Armstrong MD PATHOLOGY/CYTOLOGY O ESCOBAR Performing Organization Address [facility] [place] [address] * Specimen to Pathology (02/13/2020 11:21 AM EDT) AP Specimen 02/13/2020 11:2 1 AM EDT 02/13/2020 11:[address] [facility] - 02/13/2020 11:21 AM EDT Specimen requisition ordered. ??Separate Pathology report to follow Nima Armstrong MD PATHOLOGY/CYTOLOGY O ESCOBAR Performing Organization Address [facility] [place] [address] * Surgical Pathology Report (02/13/2020 10:31 AM EDT) Pathologist [facility] Final Diagnosis [id number] ? Location: [facility]; 0206; A The signing pathologist has (i) [...] Cabrera MD Verified: ??02/27/2020 ?Pathologist Performed at: ??-[facility] Dept. of Pathology, [place], [place] SYNOPTIC Specimen Parts: ??A to L [...] Annual Release ADDITIONAL STUDIES Whole slide scan: [id number] A1-3,4,5 [id number] D4, D6, D8, D9, D11 SPECIMEN(S) SUBMITTED [...] DESCRIPTION Resection Specimen: Intact, Cystoprostatectomy LESION Description: [place]-red, firm, rubbery, tumor bed, consisting of a [...] x 2.5 cm. Surface: Smooth, glistening. Mucosa: [place] white, rugated. Wall: Ranging from 0.6-1.1 cm in thickness. Margins: 0.9 cm to left-posterior perivesical margin Left Ureter: 2.3 cm, patent, uninvolved. Right Ureter: 2.1 cm, patent. Urethra: 2.9 cm, smooth, pink-white, without lesions. PROSTATE Specimen Description: Vaguely nodular and roughly symmetric. DIMENSIONS [place] to base: 3.4 cm. Transverse: 3.8 cm. [...] serially sectioned from apex to base. Sections/Processing: Stave Bolt Equalizer sections in 29 cassettes as follows: ?D1: ??Distal prostatic urethral margin, en face ?D2: ??Right ureter margin, en face ?D3: ??Left ureter margin, en face ?D4-D16: ??Tumor bed, including left ureteral orifice lesion, entirely submitted ? (D4-D5, D6-D7, D9-D10, D11-D12, D13-D14, and D15-D16: bisected full-thickness ? sections) ?D17: ??Right bladder wall, including right ureteral orifice, dental detail representative ?D18: ??Anterior bladder wall, dental detail representative ?D19: ??Posterior bladder wall, dental detail representative ?D20: ??[place], dental detail representative ?D21: ??Trigone, dental detail representative ?D22: ??Prostate, left apex, dental detail representative . SPECIMEN PROCESSING ?D23: ??Prostate, right apex, dental detail representative ?D24: ??Prostate, left mid, dental detail representative ?D25: ??Prostate, right mid, dental detail representative ?D26: ??Prostate, left base, dental detail representative ?D27: ??Prostate, right base, dental detail representative ?D28: ??Left seminal vesicle and vas deferens, dental detail representative ?D29: ??Right seminal vesicle and vas deferens, dental detail representative E - Labeled/Fixative: Left common and external lymph nodes, fresh. Quantity/Size: Multiple, 7.7 x 4.0 x 1.6 cm in aggregate. Tissue Description: Adipose tissue with eight lymph nodes, up to 4.8 cm in greatest dimension. Sections/Processing: Stave Bolt Equalizer sections in 16 cassettes as follows: ?E1: [...] to 3.0 cm in greatest dimension. Sections/Processing: Stave Bolt Equalizer sections in 3 cassettes as follows: ?F1-F3: ??One lymph node, serially sectioned G - Labeled/Fixative: Additional left internal iliac and obturator lymph nodes, fresh. Quantity/Size: Multiple, 5.3 x 2.5 x 1.5 cm in aggregate. Tissue Description: Adipose tissue with two lymph nodes, up to 2.6 cm in greatest dimension. Sections/Processing: Stave Bolt Equalizer sections in 3 cassettes as follows: ?G1: ??One lymph node, serially sectioned ?G2-G3: ??One lymph node, serially sectioned H - Labeled/Fixative: Presacral lymph nodes, fresh. Quantity/Size: Multiple, 7.5 x 4.0 x 1.3 cm in aggregate. Tissue Description: Adipose tissue with seven lymph nodes, up to 4.1 cm in greatest dimension. Sections/Processing: Stave Bolt Equalizer sections in 12 cassettes as follows: ?H1: [...] to 5.2 cm in greatest dimension. Sections/Processing: Stave Bolt Equalizer sections in 9 cassettes as follows: ?I1: ??Two lymph nodes ?I2: ??Two lymph nodes ?I3-I4: ??One lymph node, serially sectioned ?I5-I9: ??One lymph node, serially sectioned . SPECIMEN PROCESSING J - Labeled/Fixative: Right obturator lymph nodes, fresh. Quantity/Size: Multiple, 5.2 x 3.2 x 1.7 cm in aggregate. Tissue Description: Adipose tissue with one lymph node, up to 4.9 cm in greatest dimension. Sections/Processing: Stave Bolt Equalizer sections in 4 cassettes as follows: ?J1-J4: [...] sectioned to reveal unremarkable pink-white mucosa. Sections/Processing: Stave Bolt Equalizer sections in 3 cassettes as follows: ?K1: ??Terminal margin 1 (with suture) ?K2: ??Terminal margin 2 ?K3: ??Stave Bolt Equalizer central ureter L - Labeled/Fixative: Additional right ureter, fresh. Quantity/Size: Single, 6.1 x 0.8 cm. Tissue Description: Unorientated segment of noyola-pink ureter with scant adherent periureteral fat. One end of the specimen is marked with the suture, and is designated terminal margin 1 by the prosector. The specimen is serially sectioned to reveal unremarkable pink-white mucosa. Sections/Processing: Stave Bolt Equalizer sections in 3 cassettes as follows: ?L1: ??Terminal margin 1 (with suture) ?L2: ??Terminal margin 2 ?L3: ??Stave Bolt Equalizer central ureter ??ERJG ?Frozen Section FROZEN SECTION DIAGNOSIS CFS - Right distal ureter: ?Urothelial atypia; deeper levels ?were obtained. - [facility] 02/13/20 12:33 Electronically signed by: ??Trae Hoang MD Verified: ??02/13/2020 ?Pathologist Performed at: ??-[facility] Dept. of Pathology, [place], [place] This intraoperative consultation should be interpreted as a preliminary diagnosis pending review of the entire specimen and special studies, if any. ?Frozen Section FROZEN SECTION DIAGNOSIS BFS - Left distal ureter: ?Urothelial atypia, cannot exclude ?dysplasia. - [facility] 02/13/20 11:43 Electronically signed by: ??Trae Hoang MD Verified: ??02/13/2020 ?Pathologist Performed at: ??-[facility] Dept. of Pathology, [place], [place] This intraoperative consultation should be interpreted as a preliminary diagnosis pending review of the entire specimen and special studies, if any. ?Frozen Section FROZEN SECTION DIAGNOSIS - AFS1 Liver mass: ?Calcified nodule, negative for cancer . FROZEN SECTION DIAGNOSIS 02/13/20 11:07 Electronically signed by: ??Guero Faye MD Verified: ??02/13/2020 ?Pathologist Performed at: ??-[facility] Dept. of Pathology, [place], [place] This intraoperative consultation should be interpreted as a preliminary diagnosis pending review of the entire specimen and special studies, if any. 02/27/2020 3:[address] [facility] URETERIC STRUCTURE / Unknown 02/13/2020 [...] MD PATHOLOGY/CYTOLOGY O ESCOBAR Performing Organization Address City/[facility] Co de Phone Number [facility] [place] [address] * Specimen to Pathology (02/13/2020 10:31 AM EDT) AP Specimen 02/13/2020 10:3 1 AM EDT 02/13/2020 10:[address] [facility] - 02/13/2020 10:31 AM EDT Specimen requisition ordered. ??Separate Pathology report to follow Nima Armstrong MD PATHOLOGY/CYTOLOGY O RDERAJUDE Performing Organization Address [facility]/ZIP Co de Phone Number [facility] [place] [address] * (ABNORMAL) BLOOD GAS 2 ARTERIAL (02/13/2020 10:06 AM EDT) pH, Arterial 7.34(L) 7.35 - 7.45 [facility] PCO2, Arterial 38 35 - [address] [facility] PO2, Arterial 243(H) 85 - [address] [facility] Bicarbonate, Arterial 20.9 20.0 - 26.0 mmol/L [facility] [place] Excess, Arterial -5.1(L) -3.0 - 3.0 mmol/L [facility] Hgb Blood Gas 13.3(L) 13.7 - 16.5 gm/dL [facility] Oxyhemoglobin, Arterial 98.5(H) 94.0 - 97.0 % [facility] Carboxyhemoglob in, Arterial 0.7 % [facility] Comment: Nonsmokers: 0.5-1.5% COHB Smokers: Variable, but usually less than 10% Toxic: 20-30% COHB Lethal: Greater than 60% COHB Methemoglobin, Arterial 0.2 <=1.5 % [facility] Na Whole Blood 131(L) 135 - 145 mmol/L [facility] K Whole Blood 4.2 3.5 - 5.0 mmol/L [facility] Comment: Please note: Patients with WBC >100,000 may have falsely elevated Potassium levels. Contact the Clinical Chemistry Laboratory if there are any questions. ICa Whole Blood 1.13(L) 1.15 - 1.33 mmol/L [facility] Comment: Note: ??Total bilirubin higher than 20 mg/dL may lead to falsely low ionized calcium. CL Whole Blood 109(H) 98 - 107 mmol/L [facility] Gluc Whole Bld 135 65 - 199 mg/dL [facility] Comment:Diabetes: >=200 mg/d L plus symptoms. Lactate WB 1.3 0.5 - 2.2 mmol/L [facility] FIO2 Art 60 % [facility] Flow Art 1.0 LPM [facility] PF Ratio Art 405 [facility] Temp Art 35.5 Celsius [facility] Blood specimen (specimen) 02/13/2020 10:06 AM EDT 02/13/2020 10:06 AM EDT Nima Armstrong MD POINT OF CARE TEST O RDERABLES Performing Organization Address [facility] Co de Phone Number [facility] [place] [address] * XR Fluoro No Rad <1Hr - OR Use (02/13/2020 8:57 AM EDT) Narrative RAD - 02/13/2020 8:58 AM EDT This exam is auto-finalizing. No interpretation was done. Nima Bhatia MD IMG FLUORO ORDERABLE S Performing Organization Address [facility] de Phone Number [place], [place] * Scan, Peripheral Blood (02/13/2020 7:05 AM EDT) Pathologist [facility] Plat estimate Decreased [facility] RBC Morphology Normal [facility] Blood specimen (specimen) 02/13/2020 7:05 AM EDT 02/13/2020 7:21 AM EDT Narrative Resulting Agency Comment Spec In Lab Ori Bashir MD HEMATOLOGY ORDERABLE S Performing Organization Address [facility] de Phone Number [facility] [place] [address] * Differential, Automated (02/13/2020 7:05 AM EDT) Neutrophil % 55.9 % [facility] Neutrophil Absolute 2.73 1.70 - 6.10 x10(3)/[facility] LABORATORY Lymph % 19.7 % [facility] Lymphocytes Abs 1.0 0.9 - 3.2 x10(3)/[facility] LABORATORY Monocyte % 16.8 % [facility] Monocyte Abs 0.8 0.3 - 0.9 x10(3)/[facility] LABORATORY Eos % 6.4 % [facility] Eosinophils Abs 0.3 0.0 - 0.4 x10(3)/[facility]ORATORY Basophil % 1.0 % [facility] Baso Absolute 0.0 0.0 - 0.1 x10(3)/[facility]ORATORY Immature Gran % 0.20 % [facility] Comment: Immature granulocytes(IG's)percentage and absolute count will include metamyelocytes, myelocytes, and promyelocytes. Blood smears from CBCs yielding IG's will be scanned manually for concordance. If this scan disagrees with the automated IG or if promyelocytes are noted, a manual differential will be performed. Immature Gran Absolute 0.01 0.00 - 0.04 x10(3)/[facility]ORATORY Blood specimen (specimen) 02/13/2020 7:05 AM EDT 02/13/2020 7:21 AM EDT Narrative Resulting Agency Comment Spec In Lab Ori Bashir MD HEMATOLOGY ORDERABLE S [facility] [place] [address] * (ABNORMAL) Hemogram (02/13/2020 7:05 AM EDT) White Blood Cell 4.9 4.0 - 9.5 x10(3)/ L [facility] Red Blood Cell 4.79 4.58 - 5.54 x10(6)/ L [facility] Hemoglobin 15.2 13.7 - 16.5 gm/dL [facility] Hematocrit 45.6 40.5 - 48.5 % [facility] Mean Cell Volume 95.2(H) 82.9 - 93.[address] [facility] Mean Cell Hemoglobin 31.7 27.5 - 32.[address] [facility] Mean Cell Hemoglobin Concentration 33.3 32.0 - 35.7 gm/dL [facility] Platelet 87(L) 145 - 357 x10(3)/ L [facility] RDW Standard Deviation 50.9(H) 36.0 - 45.[address] [facility] RDW coefficient of variation 14.4(H) 11.4 - 13.8 % [facility] Mean Platelet Volume 12.2 7.6 - 12.[address] [facility] NRBC% auto 0.0 % [facility] NRBC Absolute 0.000 0.000 - 0.000 x10(3)/mc L [facility] Blood specimen (specimen) 02/13/2020 7:05 AM EDT 02/13/2020 7:21 AM EDT Narrative Resulting Agency Comment Spec In Lab Ori Bashir MD HEMATOLOGY ORDERABLE S Performing Organization Address City/[facility]/ZIP Co de Phone Number [facility] [place] [address] * Phosphorus (02/13/2020 7:05 AM EDT) Phosphorus 3.2 2.5 - 4.5 mg/dL [facility] Blood specimen (specimen) 02/13/2020 7:05 AM EDT 02/13/2020 7:21 AM EDT Narrative Resulting Agency Comment Spec In Lab Nima Armstrong MD CHEMISTRY ORDERABLES Performing Organization Address City/[facility]/ZIP Co de Phone Number [facility] [place] [address] * Magnesium (02/13/2020 7:05 AM EDT) Magnesium 0.79 0.69 - 1.07 mmol/L [facility] Blood specimen (specimen) 02/13/2020 7:05 AM EDT 02/13/2020 7:21 AM EDT Narrative Resulting Agency Comment Spec In Lab Nima Armstrong MD CHEMISTRY ORDERABLES Performing Organization Address City/[facility]/ZIP Co de Phone Number [facility] [place] [address] * (ABNORMAL) Basic Metabolic Panel (non-fasting) (02/13/2020 7:05 AM EDT) Glucose 131 65 - 199 mg/dL [facility] Comment:Diabetes: >=200 mg/d L plus symptoms Blood Urea Nitrogen 43(H) 10 - 20 mg/dL [facility] Creatinine 1.26 0.80 - 1.50 mg/dL [facility] Sodium 135 135 - 145 mmol/L [facility] Potassium 4.0 3.5 - 5.0 mmol/L [facility] Comment: Please note: ??Patients with WBC >100,000 may have falsely elevated Potassium levels. ??For accurate Potassium quantification in these patients send serum separator tube (gold top) for subsequent determinations. ??Contact the Clinical Chemistry Laboratory if there are any questions. Chloride 99 98 - 107 mmol/L [facility] Carbon Dioxide 20(L) 22 - 31 mmol/L [facility] Anion Gap 16(H) 5 - 15 mmol/L [facility] Calcium 9.0 8.5 - 10.5 mg/dL [facility] Est Glomerular Filtration Rate 59(L) >=60 mL/min/1. 73 m?? [facility] Comment: The eGFR was calculated using the CKD-EPI equation. As with all creatinine based estimates of kidney function, eGFR values calculated with the CKD-EPI equation are not accurate in patients with acute kidney failure, extremes of body mass or the acutely ill. [email or web address]/[facility] eGFR 68 >=60 mL/min/1. 73 m?? [facility] Comment: The eGFR was calculated using the CKD-EPI equation. As with all creatinine based estimates of kidney function, eGFR values calculated with the CKD-EPI equation are not accurate in patients with acute kidney failure, extremes of body mass or the acutely ill. [email or web address]/[facility] Blood specimen (specimen) 02/13/2020 7:05 AM EDT 02/13/2020 7:21 AM EDT Narrative Resulting Agency Comment Spec In Lab Nima Armstrong MD CHEMISTRY ORDERABLES 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 Malignant neoplasm of bladder, part unspecified PVD (peripheral vascular disease) Peripheral vascular disease, unspecified Severe protein-calorie malnutrition Other severe protein-calorie malnutrition Weight loss, abnormal Loss of weight Bladder cancer Malignant neoplasm of bladder, part unspecified Malignant neoplasm of urinary bladder, unspecified site [...] Admin Adt)0949 (SEP Unhold - Provider: Admin Adt)1037 (Given - [...] area)0900 (Automatically Held - Provider: Admin Adt)0949 ([facility] Unhold - Provider: Admin Adt)1037 (Given - [...] refused - Comment: refusing PO meds) 0802 ([facility] Hold - Provider: Admin Adt - Reason: Transfer to a Procedural area)0900 (Automatically Held - Provider: Admin Adt)0949 ([facility] Unhold - Provider: Admin Adt)1037 (Given - [...] area)0900 (Automatically Held - Provider: Admin Adt)0949 ([facility] Unhold - Provider: Admin Adt)1037 (Given - Provider: Wendy King RN) 0929 (Given - Provider: Wendy King RN) ergocalciferoL (vitamin D2) (8,000 units/mL) oral liquid 50,000 Units 50,000 Units, Per G Tube, WEEKLY, 9 doses, First dose on Wed02/29/20 at 1330, Last dose on Wed04/25/20 at 0900, Routine 0802 (SEP Hold - Provider: Admin Adt - Reason: Transfer to a Procedural area)0949 ([facility] Unhold - Provider: Admin Adt) 0929 (Given - Provider: Wendy King RN) free water bolus 200 mL 200 mL, Per G Tube, 2 TIMES DAILY, First dose on Wed03/04/20 at 2100, Until Discontinued, Please give with Chantix to reduce GI upset., Routine 0959 (Given - Provider: Soniya Moss RN)2100 (Given - Provider: Danie Callahan RN) 0802 ([facility] Hold - Provider: Admin Adt - Reason: Transfer to a Procedural area)0900 (Automatically Held - Provider: Admin Adt)0949 ([facility] Unhold - Provider: Admin Adt)1055 (Given - Provider: Wendy King RN)2100 (Given - Provider: Bailey Collins RN) 0900 (Given - Provider: Wendy King RN) lidocaine (LIDODERM) 5 % patch 3 patch(Linked Group 1) 3 patch, Transdermal, EVERY 24 HOURS, First dose on Wed02/19/20 at 1330, Until Discontinued, Apply patch(es) for 12 hours, and then remove for 12 hours, Routine 1330 (Not Given - Provider: Soniya Moss RN - Reason: Patient/family refused) 0802 ([facility] Hold - Provider: Admin Adt - Reason: Transfer to a Procedural area)0949 ([facility] Unhold - Provider: Admin Adt)1330 (Not Given - Provider: Wendy King RN - Reason: Patient/family refused) 1330 (Not Given - Provider: Wendy King RN - Reason: Patient/family refused) lidocaine (LIDODERM) 5 %(700 mg/patch) Patch Removal(Linked Group 1) Transdermal, EVERY 24 HOURS, First dose on Wed02/20/20 at 0045, Until Discontinued, Remove lidocaine 5 %(700 mg/patch) patch 004 (Patch Removed - Provider: Jono Sommer RN) 004 (Patch Not Removed (add comment) - Provider: Danie Callahan RN)0802 (SEP Hold - Provider: Admin Adt - Reason: Transfer to a Procedural area)0949 (MAR Unhold - Provider: Admin Adt) 004 (Patch Removed - Provider: Bailey Collins RN) melatonin tablet 6 mg 6 mg, Oral, NIGHTLY, First dose on Wed02/28/20 at 2100, Until Discontinued, Routine 2135 (Given - Provider: Danie Callahan RN) 08 (SEP Hold - Provider: Admin Adt - Reason: Transfer to a Procedural area)0949 (SEP Unhold - Provider: Admin Adt)2100 (Given - Provider: Bailey Collins, KEYA) methylphenidate (Ritalin) tablet 12.5 mg 12.5 mg, [...] KEYA) 0628 (Given - Provider: Bailey Collins, KYEA)1132 (Given - Provider: Wendy King, KEYA) metoprolol tartrate (Lopressor) tablet 12.5 mg 12.5 mg, Oral, EVERY 12 HOURS SCHEDULED, First dose on Wed03/01/20 at 1100, Until Discontinued, OK to give via Gtube if he refuses oral. Hold for HR< 60 or SBP < 100., Routine 0959 (Given - Provider: Soniya Moss RN)2136 (Given - Provider: Danie Callahan RN) 0802 (SEP Hold - Provider: Admin Adt - Reason: Transfer to a Procedural area)0900 (Automatically Held - Provider: Admin Adt)0949 (SEP Unhold - Provider: Admin Adt)103 (Given - Provider: Wendy King RN)2044 (Given - Provider: Bailey Collins, KEYA) 0930 (Given - Provider: Wendy King, KEYA) miconazole nitrate (REMEDY PHYTOPLEX) 2 % ointment Topical (Top), 2 TIMES DAILY, First dose on Wed02/20/20 at 2100, Until Discontinued 0959 (Given - Provider: Soniya Moss RN)215 (Given - Provider: Danie Callahan RN) 08 (SEP Hold - Provider: Admin Adt - Reason: Transfer to a Procedural area)09 (Automatically Held - Provider: Admin Adt)0949 (SEP Unhold - Provider: Admin Adt)2099 (Given - Provider: Bailey Collins, KEYA) 929 (Given - Provider: Wendy King RN) mirtazapine (Remeron) disintegrating tablet 7.5 mg 7.5 [...] RN - Comment: was awaiting dose from pharmacy)2224 (Given - Provider: Danie Callahan RN - Comment: had to wait for pharmacy to send to the floor) 08 (SEP Hold - Provider: Admin Adt - Reason: Transfer to a Procedural area)09 (Automatically Held - Provider: Admin Adt)0949 (SEP Unhold - Provider: Admin Adt)2044 (Given - Provider: Bailey Collins, KEYA) 0628 (Given - Provider: Bailey Collins RN - [...] refused - Comment: refusing PO meds) 0802 (MAR Hold - Provider: Admin Adt - Reason: Transfer to a Procedural area)0900 (Automatically Held - Provider: Admin Adt)0949 (MAR Unhold - Provider: Admin Adt)1039 (Given - Provider: Wendy King RN)2046 (Given - Provider: Bailey Collins RN) 09 (Given - Provider: Wendy King RN) Continuous [...] 0029 (Stopped - Provider: Danie Callahan RN)0802 ([facility] Hold - Provider: Admin Adt - Reason: Transfer to a Procedural area)0949 ([facility] Unhold - Provider: Admin Adt) PRN Medication [...] crush and admin through g-tube, Routine 0802 ([facility] Hold - Provider: Admin Adt - Reason: Transfer to a Procedural area)0949 ([facility] Unhold - Provider: Admin Adt) calcium carbonate (Tums) chewable tablet 1,000 mg 1,000 mg, Oral, EVERY 6 HOURS PRN, Starting on Wed03/01/20 at 2031, Until Wed03/07/20 at 1703, Heartburn, Routine 0802 ([facility] Hold - Provider: Admin Adt - Reason: Transfer to a Procedural area)0949 ([facility] Unhold - Provider: Admin Adt) heparin, porcine [...] Until Wed03/07/20 at 1703, Irritation, Routine 0802 ([facility] Hold - Provider: Admin Adt - Reason: Transfer to a Procedural area)0949 ([facility] Unhold - Provider: Admin Adt) prochlorperazine (COMPAZINE) injection 10 mg 10 mg, Intravenous, EVERY 6 HOURS PRN, Starting on Wed02/14/20 at 1209, Until Wed03/07/20 at 1703, Nausea, Routine 0802 ([facility] Hold - Provider: Admin Adt - Reason: Transfer to a Procedural area)0949 ([facility] Unhold - Provider: Admin Adt)2102 (Given - [...] reuptake inhibitors (SSRIs) with tramadol., Routine 0802 ([facility] Hold - Provider: Admin Adt - Reason: Transfer to a Procedural area)0949 ([facility] Unhold - Provider: Admin Adt) Linked Groups [...] documented as of this encounter Care Teams Bridge Ironworker Helper Relationship Specialty Start Date End Date Subhash Dowling MD [address] [place] [address] PCP - General 06/03/10 documented as of this encounter
--- OUTSIDE RECORDS SUMMARY | 2024-08-15 01:37 | XMS_ITS | Encounter Summary ---
Author Organization [facility] Address [facility] [place] [address] Care Team Providers Care Pipe Wrapping Machine Operator Name Role Phone Subhash Dowling MD Primary Care Provider + [phone] Reason for Visit * Consultation (Routine) - Closed Specialty Diagnoses / Procedures Referred By Contelaina t Referred To Contact Pre-Admission Testing Diagnoses Malignant neoplasm of urinary bladder, unspecified site Stephan Armstrong MD [facility] [place] [address] [facility] [place] [address] [place] [address] Referral ID Status Reason Start Date Expiration Date V isits Requested Visits Authorized [id number] Closed Consult, Test & Treat 12/09/2019 12/08/2020 1 1 Encounter Details Date Type Department Care Team (Latest Contact Info) Description 01/15/2020 12:00 PM EDT [place] [address] Preoperative cardiovascular examination (Primary Dx); Essential hypertension; Chronic obstructive pulmonary disease, unspecified COPD type Social History Tobacco Use Types Packs/Day Years Used Date Smoking Tobacco: Every Day Cigarettes 2 50 Smokeless Tobacco: Never Alcohol Use Standard Drinks/Week Comments Yes 0 (1 standard drink = 0.6 oz pur e alcohol) 2 Sex and Gender Information Value Date Recorded Sex Assigned at Not on file Gender Identity Not on file Sexual Orientation Not on file documented as of this encounter Plan of Treatment Upcoming Encounters Date Type Department Care Team (Late st Contact Info) Description 08/15/2024 11:30 AM EST Office Visit Hematology/Oncology at [address] [address] Chanelle Kim, [place] [facility] [place] [address] Bee Curry, [facility] [place] [address] Scheduled Orders Name Type Priority Associated Diagnoses Orde r Schedule EKG 12 Lead ECG Routine Preoperative cardiovascular examination Essential hypertension Chronic obstructive pulmonary disease, unspecified COPD type Ordered: 01/15/2020 documented as of this encounter Procedures Procedure Name Priority Date/Time Associated Diagnosis Comments EKG 12-LEAD Routine 01/15/2020 12:56 PM EDT Preoperative cardiovascular examination Chronic obstructive pulmonary disease, unspecified COPD type Essential hypertension documented in this encounter Results * XR Chest PA & Lateral (Generic) (01/15/2020 1:39 PM EDT) Anatomical Region Laterality Modality Chest N/A Digital Radiogra phy Impressions 01/15/2020 3:26 PM EDT No acute cardiopulmonary process. I have personally reviewed the image(s) and the resident's interpretation and agree with the findings, Mony Dewitt at 01/15/2020 3:26 PM Thank you for letting us participate in the care of this patient. For questions regarding this report, please contact the number below. ? Narrative 01/15/2020 3:26 PM EDT EXAMINATION: XR CHEST PA AND LATERAL (GENERIC) CLINICAL HISTORY: COPD 69 year old male with bladder CA who presents for preoperative evaluation. TECHNIQUE: PA and lateral views of the chest COMPARISON: CT angiogram of the aorta dated 07/19/2007 FINDINGS: Right chest Mediport with tip projecting in the cranial aspect of the right atrium. No pneumothorax. Lungs are clear. The cardiomediastinal silhouette, stu, and pulmonary vasculature are within normal limits. No pleural effusion. Procedure Note Mony Buck MD - 01/15/2020 EXAMINATION: XR CHEST PA AND LATERAL (GENERIC) CLINICAL HISTORY: COPD 69 year old male with bladder CA who presents for preoperativeevaluation. TECHNIQUE: PA and lateral views of the chest COMPARISON: CT angiogram of the aorta dated 07/19/2007 FINDINGS: Right chest Mediport with tip projecting in the cranial aspect of theright atrium. No pneumothorax. Lungs are clear. The cardiomediastinal silhouette, stu, and pulmonary vasculature are within normal limits. No pleural effusion. IMPRESSION No acute cardiopulmonary process. I have personally reviewed the image(s) and the resident's interpretationand agree with the findings, Mony Dewitt at 01/15/2020 3:26 PM Thank you for letting us participate in the care of this patient. Forquestions regarding this report, please contact the number below. Electronically signed by: Mony Dewitt [facility]([phone]), at 01/15/2020 3:26 PM Odalys Arndt MD IMG DX ORDERABLES * EKG 12 Lead (01/15/2020 12:56 PM EDT) Ventricular rate 71 BPM MUSE SYSTEM Atrial Rate 71 BPM MUSE SYSTEM P-R Interval 136 ms MUSE SYSTEM QRS Duration 72 ms MUSE SYSTEM Q-T Interval 386 ms MUSE SYSTEM QTC Calculated (Bezet) 419 ms MUSE SYSTEM Calculated P [place] -7 degrees MUSE SYSTEM Calculated R [place] 69 degrees MUSE SYSTEM Calculated T [place] 51 degrees MUSE SYSTEM INTERPRETATION Normal sinus rhythm Normal ECG No previous ECGs available Confirmed by MD STEVIE, HENRRY ([id number]) on 01/16/2020 9:35:50 AM MUSE SYSTEM 01/15/2020 12:5 6 PM EDT 01/16/2020 9:35 AM EDT Odalys Arndt MD ECG ORDERABLES MUSE SYSTEM documented in this encounter Visit Diagnoses Diagnosis Preoperative cardiovascular examination- Primary Pre-operative cardiovascular examination Essential hypertension Unspecified essential hypertension Chronic obstructive pulmonary disease, unspecified COPD type Preoperative cardiovascular examination Pre-operative cardiovascular examination Essential hypertension Unspecified essential hypertension Chronic obstructive pulmonary disease, unspecified COPD type documented in this encounter Care Teams Pipe Wrapping Machine Operator Relationship Specialty Start Date End Date Subhash Dowling MD [address] [address] PCP - General 06/03/10 documented as of this encounter
--- OUTSIDE RECORDS SUMMARY | 2024-08-15 01:37 | XMS_ITS | Encounter Summary ---
Author Organization [facility] [place] [address] Care Team Providers Care Lead Cargoman Name Role Phone Subhash Dowling MD Primary Care Provider [phone] Encounter Details Date Type Department Care Team (Latest Contact Info) Description 01/15/2020 1:30 PM EDT Laboratory [place] [phone] Malignant neoplasm of urinary bladder, unspecified site; Pain, unspecified Social History Tobacco Use Types Packs/Day Years [...] AM EST Office Visit Hematology/Oncology at [address] [phone] Chanelle Kim [facility] [place] [address] Bee Curry [facility] [place] [address] documented as of this encounter Procedures Procedure Name Priority Date/Time Associated Diagnosis Comments HC URINE CULTURE Routine 01/15/2020 12:4 5 PM EDT Pain, unspecified Malignant neoplasm of urinary bladder, unspecified site ABORH RECHECK STATUS Routine 01/15/2020 12:37 PM EDT HEMOGRAM Routine 01/15/2020 12:37 PM EDT Malignant neoplasm of urinary bladder, unspecified site DIFFERENTIAL, AUTOMATED Routine 01/15/2020 12:37 PM EDT Malignant neoplasm of urinary bladder, unspecified site HC ABO-MICROTITER Routine 01/15/2020 12: 37 PM EDT Malignant neoplasm of urinary bladder, unspecified site ABO/RH TYPING Routine 01/15/2020 12:37 PM EDT Malignant neoplasm of urinary bladder, unspecified site HC CBC,PLT & AUTO DIFF Routine 0 12:37 PM EDT Malignant neoplasm of urinary bladder, unspecified site ANTIBODY SCREEN Routine 01/15/2020 12:37 PM EDT Malignant neoplasm of urinary bladder, unspecified site HC PREALBUMIN, SERUM Routine 01/15/2020 12:37 PM EDT Malignant neoplasm of urinary bladder, unspecified site COMPREHENSIVE METABOLIC PANEL Routine 01/15/2020 12:37 PM EDT Malignant neoplasm of urinary bladder, unspecified site documented in this encounter Results * (ABNORMAL) Urine culture Clean Catch Urine (01/15/2020 12:45 PM EDT) Urine Culture 10,000-49,000 cfu/ml mixed mucosal sheri 1,000-9,000 cfu/ml Gram Negative organisms Note: Culture shows multiple bacterial species suggesting mucosal contamination. If symptoms continue to indicate urinary tract infection, submit a new specimen. (A) [facility] Urine specimen obtained by clean catch procedure (specimen) 01/15/2020 12:45 PM EDT 01/15/2020 1:09 PM EDT Narrative Resulting Agency Comment Spec In Lab Stephan Armstrong MD MICROBIOLOGY - GENER AL ORDERABLES Performing Organization Address City/[facility]/ZIP Co de Phone Number [facility] [place] [address] * ABORH Recheck Status (01/15/2020 12:37 PM EDT) ABORH Recheck Order Order Placed [facility] ABORH Type Recheck Complete [facility] Blood specimen (specimen) 01/15/2020 12:37 PM EDT 01/15/2020 12:55 PM EDT Narrative Resulting Agency Comment Spec In Lab Stephan Armstrong MD BLOOD BANK LAB ORDER MARILU Performing Organization Address City/[facility]/ZIP Co de Phone Number [facility] [place] [address] * Antibody screen (01/15/2020 12:37 PM EDT) Ab Screen Interp Negative [facility] Expires at 2359 on: 02/16/2020 [facility] Comment: Corrected from 02/09/20 0:00:00 EDT [Unknown] on 02/08/20 13:48:54 EDT by Mary Tse Blood specimen (specimen) 01/15/2020 12:37 PM EDT 01/15/2020 12:55 PM EDT Narrative Resulting Agency Comment Spec In Lab Stephan Armstrong MD BLOOD BANK LAB ORDER MARILU [facility] [place] [address] * ABO/Rh Typing (01/15/2020 12:37 PM EDT) ABORH Type B Pos [facility] Blood specimen (specimen) 01/15/2020 12:37 PM EDT 01/15/2020 12:55 PM EDT Narrative Resulting Agency Comment Spec In Lab Stephan Armstrong MD BLOOD BANK LAB ORDER MARILU [facility] [place] [address] * (ABNORMAL) Differential, Automated (01/15/2020 12:37 PM EDT) Neutrophil % 72.7 % [facility] Neutrophil Absolute 7.63(H) 1.70 - 6.10 x10(3)/mc L [facility] Lymph % 14.5 % [facility] Lymphocytes Abs 1.5 0.9 - 3.2 x10(3)/ L [facility] Monocyte % 8.9 % [facility] Monocyte Abs 0.9 0.3 - 0.9 x10(3)/ L [facility] Eos % 1.0 % [facility] Eosinophils Abs 0.1 0.0 - 0.4 x10(3)/[facility] Basophil % 1.1 % [facility] Baso Absolute 0.1 0.0 - 0.1 x10(3)/ L [facility] Immature Gran % 1.80 % [facility] Comment: Immature granulocytes(IG's)percentage and absolute count will include metamyelocytes, myelocytes, and promyelocytes. Blood smears from CBCs yielding IG's will be scanned manually for concordance. If this scan disagrees with the automated IG or if promyelocytes are noted, a manual differential will be performed. Immature Gran Absolute 0.19(H) 0.00 - 0.04 x10(3)/mc L [facility] Blood specimen (specimen) 01/15/2020 12:37 PM EDT 01/15/2020 12:54 PM EDT Narrative Resulting Agency Comment Spec In Lab Stephan Armstrong MD HEMATOLOGY ORDERABLE S Performing Organization Address City/[facility]/ZIP Co de Phone Number [facility] [place] [place] [address] * (ABNORMAL) Hemogram (01/15/2020 12:37 PM EDT) Pathologist [facility] White Blood Cell 10.5(H) 4.0 - 9.5 x10(3)/[facility] Red Blood Cell 3.84(L) 4.58 - 5.54 x10(6)/ L [facility] Hemoglobin 12.1(L) 13.7 - 16.5 gm/dL [facility] Hematocrit 37.5(L) 40.5 - 48.5 % [facility] Mean Cell Volume 97.7(H) 82.9 - 93.1 fL [facility] Mean Cell Hemoglobin 31.5 27.5 - 32.1 pg [facility] Mean Cell Hemoglobin Concentration 32.3 32.0 - 35.7 gm/dL [facility] Platelet 210 145 - 357 x10(3)/[facility] RDW Standard Deviation 70.3(H) 36.0 - 45.0 [facility] RDW coefficient of variation 19.5(H) 11.4 - 13.8 % [facility] Mean Platelet Volume 10.6 7.6 - 12.9 [facility] NRBC% auto 0.0 % [facility] NRBC Absolute 0.000 0.000 - 0.000 x10(3)/[facility] Blood specimen (specimen) 01/15/2020 12:37 PM EDT 01/15/2020 12:54 PM EDT Narrative Resulting Agency Comment Spec In Lab Stephan Armstrong MD HEMATOLOGY ORDERABLE S [facility] [place] [address] * (ABNORMAL) Comprehensive metabolic panel (non-fasting) (01/15/2020 12:37 PM EDT) Pathologist [facility] Glucose 100 65 - 199 mg/dL [facility] Comment:Diabetes: >=200 mg/d L plus symptoms Blood Urea Nitrogen 15 10 - 20 mg/dL [facility] Creatinine 0.98 0.80 - 1.50 mg/dL [facility] Sodium 138 135 - 145 mmol/L [facility] Potassium 4.5 3.5 - 5.0 mmol/L [facility] [...] mmol/L [facility] Anion Gap 11 5 - 15 mmol/L [facility] Calcium 9.4 8.5 - 10.5 mg/dL [facility] Protein, Total 7.0 6.1 - 8.0 gm/dL [facility] Albumin 3.9 3.2 - 5.2 gm/dL [facility] Aspartate Aminotransferase 8 0 - 39 unit/L [facility] Alanine Aminotransferase 8 0 - 55 unit/L [facility] Alkaline Phosphatase 164(H) 40 - 130 unit/L [facility] Bilirubin, Total 0.2 0.2 - 1.3 mg/dL [facility] Est Glomerular Filtration Rate 79 >=60 mL/min/1. 73 m?? [facility] Comment: The eGFR was calculated using the CKD-EPI equation. As with all creatinine based estimates of kidney function, eGFR values calculated with the CKD-EPI equation are not accurate in patients with acute kidney failure, extremes of body mass or the acutely ill. http://Washio/DHMCnkf eGFR 92 >=60 mL/min/1. 73 m?? [facility] Comment: The eGFR was calculated using the CKD-EPI equation. As with all creatinine based estimates of kidney function, eGFR values calculated with the CKD-EPI equation are not accurate in patients with acute kidney failure, extremes of body mass or the acutely ill. [email or web address].com/DHMCnkf Blood specimen (specimen) 01/15/2020 12:37 PM EDT 01/15/2020 12:54 PM EDT Narrative Resulting Agency Comment Spec In Lab Stephan Armstrong MD CHEMISTRY ORDERABLES Performing Organization Address City/[facility]/ZIP Co de Phone Number [facility] [place] [address] * Prealbumin (01/15/2020 12:37 PM EDT) Prealbumin 23 20 - 40 mg/dL [facility] Comment: Prealbumin levels are generally lower in the pediatric population; adult concentrations are usually attained near puberty. Blood specimen (specimen) 01/15/2020 12:37 PM EDT 01/15/2020 12:54 PM EDT Narrative Resulting Agency Comment Spec In Lab Stephan Armstrong MD CHEMISTRY ORDERABLES Performing Organization Address City/[facility] Co de Phone Number [facility] [place] [address] documented in this encounter Visit Diagnoses Diagnosis Malignant neoplasm of urinary bladder, unspecified site Pain, unspecified documented in this encounter Care Teams Lead Cargoman Relationship Specialty Start Date End Date Subhash Dowling MD [address] [place] [address] PCP - General 06/03/10 documented as of this encounter
--- OUTSIDE RECORDS SUMMARY | 2024-08-15 01:37 | XMS_ITS | Encounter Summary ---
Author Organization [facility] [place] [address] Care Team Providers Care Poultry Inseminator Name Role Phone Subhash Dowling MD Primary Care Provider [phone] Reason for Visit * Reason Comments Establish Care pre op ostomy teachi ng Encounter Details Date Type Department Care Team (Late st Contact Info) Description 12/08/2019 1:00 PM EDT [place] [address] Ostomy nurse consultation Social History Tobacco Use Types Packs/Day Years [...] Sign Reading Time Taken Comments Blood Pressure 128/75 12/08/2019 12:59 PM EDT Pulse 75 12/08/2019 12:59 PM EDT Temperature - - Respiratory Rate - - Oxygen Saturation - - Inhaled Oxygen Concentration - - Weight - - Height - - Body Mass Index - - documented in this encounter Progress Notes * Maria Luisa Mace RN - 12/08/2019 1:00 PM EDT Images from the original note were not included. Preoperative Ostomy Visit: Diagnosis: Bladder cancer Surgeon:Dr. Armstrong Proposed Surgery:cystoprostatectomy with Ileal Conduit Date of Surgery: , likely mid January Insurance:Medicare and Medicaid Pre-op Teaching:I met this 69 yr old gentleman who looks older than stated age. He is a , whose at least 20 yrs ago, he tells me. Of note; pt is illiterate. He had lived in [facility] and has been in [place], [place] for the last 20 yrs and his brother lives about 1/2 mile from him. He sees him some. He has a sister who lives in [facility]. He tells me his friend, Oneal Ramirez, is staying with him at present and will likely still be living with him at time of surgery. Pt is very vague and offers little information. 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 He also tells me he has a daughter who lives in [facility] and son in [place], [place]. Does not sound like he hasany close family. I asked him what he understands about the surgery he is going to have and he toldme he doesn't know anything. I asked him what he is getting chemo for and he said cancer I guess. When I asked him what kind of cancer he has he said colon? I explained to him that he has bladder cancer and explained what the proposed surgery is. I reviewed A&P, surgical procedure and general care of and lifestyle with an ileal conduit. I demonstrated the pouches, wafers, adaptors and night drainage bag. I showed pt how to empty the pouch and connect and disconnect from the night drainage bag. We discussed the emotional and lifestyle adjustments to having an ileal conduit. I reassured pt that he could continue with the activities he enjoys. Difficult to assess how much pt understands. He was able to open and close the pouch and connect and disconnect the night drg bag. 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 He can see best sitting but if stoma protrudes I believe he could see standing. I darkened the tulalip and took a picture. I told pt, as I had found out after siting him, that since his surgery is not going to be scheduled until mid January he does not need to keep the site marked. I will plan tosee again to stoma site and review teaching and assess how much he retains. Teaching Material Given: Urostomy guide so he could look at the pictures and offer it to read if anyone requests. Pouching system Family/Friends/Support System:brother and friend (not much support it seems) Anticipated needs Post-op:[facility] Ostomy Visitor Pre-op:none documented in this encounter Plan of Treatment Upcoming Encounters Date Type Department Care Team (Late st Contact Info) Description 08/15/2024 11:30 AM EST Office Visit Hematology/Oncology at [address] [phone] Chanelle Kim [facility] [place] [address] Bee Curry [facility] [place] [address] documented as of this encounter Visit Diagnoses Diagnosis Ostomy nurse consultation documented in this encounter Care Teams Poultry Inseminator Relationship Specialty Start Date End Date Subhash Dowling MD [address] [place] [address] PCP - General 06/03/10 documented as of this encounter
--- OUTSIDE RECORDS SUMMARY | 2024-08-15 01:37 | XMS_ITS | Encounter Summary ---
[place] [address] Care Team Providers Care Home Paraprofessional Name Role Phone Subhash Dowling MD Primary Care Provider [phone] Encounter Details Date Type Department Care Team (Late Contact Info) Description 01/23/2020 Telephone [place] [phone] Ingris Pappas Social History Tobacco Use Types Packs/Day Years [...] encounter Miscellaneous Notes * Telephone Encounter - Ingris Velazquez CCMA - 01/23/2020 1:52 PM EDT Per patient and Dr. Finch's request I have been trying to call and remind him of his appointment on 01/24. I have been trying the last 2 days but the patient's phone has been off and there is no identifier so I am unable to leave a message documented in this encounter Plan of Treatment Upcoming Encounters Date Type Department Care Team ([facility] Contact Info) Description 08/15/2024 11:30 AM EST Office Visit Hematology/Oncology at [address] [phone] Chanelle Kim, [facility] [address] Bee Curry [facility] [address] documented as of this encounter Visit Diagnoses Not on filedocumented in this encounter Care Teams Home Paraprofessional Relationship Specialty Start Date End Date Subhash Dowling MD [address] [place] [address] PCP - General 06/03/10 documented as of this encounter
--- OUTSIDE RECORDS SUMMARY | 2024-08-15 01:37 | XMS_ITS | Encounter Summary ---
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; Tobacco abuse Social History Tobacco Use Types [...] AM EST Office Visit Hematology/Oncology at [address] [phone] [address] [facility] [place] [address] [address] [facility] [place] [address] documented as of this encounter Visit Diagnoses Diagnosis 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
--- OUTSIDE RECORDS SUMMARY | 2024-08-15 01:37 | XMS_ITS | Encounter Summary ---
Author [facility] [place] [address] Care Team Providers Care Channeler Outsole Name Role Phone Subhash Dowling MD Primary Care Provider [phone] Reason for Visit * Reason Onset Date Comments Other 12/06/2019 transportation Encounter Details Date Type Department Care Team ([facility] Contact Info) Description 12/06/2019 Telephone Hematology/Oncology at [address] [phone] Nadia Mueller MSW OFFICE OF CARE MANAGEMENT [...] Telephone Encounter - Nadia Mueller MSW - 12/06/2019 8:29 AM EDT Request from Marcy Castillo, Clinical Bundle Tier to arrange ride for pt's next lab, provider and infusion visit on 12-12-19. Messaged RCT with this request. documented in this encounter Plan of Treatment Upcoming Encounters Date Type Department Care Team ([facility] Contact Info) Description 08/15/2024 11:30 AM EST Office Visit Hematology/Oncology at [address] [phone] Chanelle Kim, [facility] [place] [address] Bee Curry, [facility] [place] [address] documented as of this encounter Visit Diagnoses Not on filedocumented in this encounter Care Teams Channeler Outsole Relationship Specialty Start Date End Date Subhash Dowling MD [address] [place] [id number] PCP - General 06/03/10 documented as of this encounter
--- OUTSIDE RECORDS SUMMARY | 2024-08-15 01:37 | XMS_ITS | Encounter Summary ---
Author Organization [facility] [place] [address] Care Team Providers Care Ironworker Foreman Name Role Phone Subhash Dowling MD Primary Care Provider [phone] Reason for Referral * Diagnostic Test (Routine) - Closed Specialty Diagnoses / Procedures Referred By Contac t Referred To Contact Radiology Diagnoses Malignant neoplasm of urinary bladder, unspecified site Procedures NM PET CT Skull Base to Mid-thigh Stephan Armstrong MD [facility] [place] [address] [place] [address] Referral ID Status Reason Start Date Expiration Date V isits Requested Visits Authorized [id number] Closed Specialty Service Requested 12/14/2019 06/14/2021 1 1 Reason for Visit * Diagnostic Test (Routine) - Closed Specialty Diagnoses / Procedures Referred By Contac t Referred To Contact Radiology Diagnoses Malignant neoplasm of urinary bladder, unspecified site Procedures NM PET CT Skull Base to Mid-thigh Stephan Armstrong MD [facility] [place] [address] [facility] [place] [address] Referral ID Status Reason Start Date Expiration Date V isits Requested Visits Authorized [id number] Closed Specialty Service Requested 12/14/2019 06/14/2021 1 1 Encounter Details Date Type Department Care Team (Latest Contact Info) Description 01/15/2020 8:47 AM EDT Hospital Encounter Nuclear Medicine at [facility] [place] [address] Stephan Armstrong MD [facility] [place] [address] Malignant neoplasm of urinary bladder, unspecified site [...] by mouth 4 times daily. 03/06/2020 06/24/2021 varenicline (CHANTIX) 0.5 mg (11)- 1 [...] AM EST Office Visit Hematology/Oncology at [address] [phone] Chanelle Kim APRN [facility] [place] [address] Bee Curry APRN [facility] [place] [address] documented as of this encounter Procedures Procedure Name Priority Date/Time Associated Diagnosis Comments NM PET CT SKULL BASE TO MID-THIGH ([facility]) Routine 01/15/2020 10:58 AM EDT Malignant neoplasm of urinary bladder, unspecified site POCT GLUCOSE Routine 01/15/2020 9:02 AM EDT documented in this encounter Results * NM PET CT Skull Base to Mid-thigh (01/15/2020 10:58 AM EDT) Anatomical Region Laterality Modality Positron Emissio n Tomography (PET) Addenda Addendum by Severo Webster MD on 01/31/2020 11:15 AM EDT --------ADDENDUM #1-------- CLINICAL HISTORY: Urologic cancer, 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 Subsequent treatment evaluation. Thank you for letting us participate in the care of this patient. For questions regarding this report, please contact the number below. ? Electronically signed by: Severo Webster [facility] ([phone]), at 01/31/2020 11:10 AM --------ORIGINAL REPORT -------- EXAMINATION: NM PET CT SKULL BASE TO MID-THIGH ? 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 Subsequent treatment evaluation. TECHNIQUE: Following IV injection of 92-bsjxry-3-deoxyglucose (FDG) a standard uptake of approximately 60 minutes, a noncontrast CT scan followed by a PET scan were acquired from the base of the skull to mid thighs. The noncontrast CT was used for anatomic localization and photon attenuation correction of the PET scan. Blood glucose level: 102 (mg/dL) FDG dose: 8.6 mCi COMPARISON: PET/CT 10/05/2019 FINDINGS: HEAD/NECK: Normal activity in all soft tissue regions of the neck and visualized lower head. No lymphadenopathy. CHEST: Normal activity in all soft tissue regions. No significant pulmonary nodules or lymphadenopathy. Right-sided port catheter with distal tip in the right atrium. Coronary artery and aortic calcifications. Centrilobular emphysematous changes most prominent in the bilateral lung apices. ABDOMEN/PELVIS: Marked interval decreased size of left sided bladder mass compared to 10/05/2019 PET/CT, with urine activity limiting the assessment of residual active bladder malignancy. Multiple FDG avid lymph nodes within the left para-aortic region (axial images 141- 165) which were present at a smaller size and with no significant activity on prior study of 10/05/2019. Conference Manager largest lymph nodes in the left periaortic region measure 10 mm (axial image 143) and 15 mm (axial image 150). Metabolic resolution and decreased size of the previously seen small right external and right internal iliac lymph nodes. Small focus of FDG uptake in the sigmoid colon (axial image 211) where there is diverticular disease and which may represent a small focus of interval inflammation. No significant CT visualized pericolonic inflammatory changes. Persistent, severe left hydroureteronephrosis. CT visualized multifocal calcifications throughout the liver and spleen consistent with granulomatous disease. SKELETON/EXTREMITIES: Mild diffusely increased marrow activity in the axial and visualized proximal appendicular skeleton, consistent with reactive marrow. Surgical hardware within the right hip. IMPRESSION: 1. ??Marked interval decrease in size of the left bladder mass with urine activity limiting the assessment of residual active bladder malignancy. 2. ??Multiple new and enlarging FDG avid lymph nodes in the left abdominal para-aortic region, consistent with active nathaly metastases. 3. ??Previously seen small right external and right internal iliac lymph nodes have resolved metabolically and decreased in size. 4. ??Persistent severe left hydroureteronephrosis. 5. ??Incidental finding of a new small focus of activity in the sigmoid colon where there is diverticular disease, most likely representing a small focus of inflammation, of questionable clinical significance. Please correlate with clinical exam. I have personally reviewed the image(s) and the resident's interpretation and agree with the findings, Severo Webster at 01/15/2020 12:30 PM Thank you for letting us participate in the care of this patient. For questions regarding this report, please contact the number below. ? 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 Subsequent treatment evaluation. --------ORIGINAL REPORT -------- EXAMINATION: NM PET CT SKULL BASE TO MID-THIGH ? 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 Subsequent treatment evaluation. TECHNIQUE: Following IV injection of 68-whdnkd-7-deoxyglucose (FDG) a standard uptake of approximately 60 minutes, a noncontrast CT scan followed by a PET scan were acquired from the base of the skull to mid thighs. The noncontrast CT was used for anatomic localization and photon attenuation correction of the PET scan. Blood glucose level: 102 (mg/dL) FDG dose: 8.6 mCi COMPARISON: PET/CT 10/05/2019 FINDINGS: HEAD/NECK: Normal activity in all soft tissue regions of the neck and visualized lower head. No lymphadenopathy. CHEST: Normal activity in all soft tissue regions. No significant pulmonary nodules or lymphadenopathy. Right-sided port catheter with distal tip in the right atrium. Coronary artery and aortic calcifications. Centrilobular emphysematous changes most prominent in the bilateral lung apices. ABDOMEN/PELVIS: Marked interval decreased size of left sided bladder mass compared to 10/05/2019 PET/CT, with urine activity limiting the assessment of residual active bladder malignancy. Multiple FDG avid lymph nodes within the left para-aortic region (axial images 141- 165) which were present at a smaller size and with no significant activity on prior study of 10/05/2019. Conference Manager largest lymph nodes in the left periaortic region measure 10 mm (axial image 143) and 15 mm (axial image 150). Metabolic resolution and decreased size of the previously seen small right external and right internal iliac lymph nodes. Small focus of FDG uptake in the sigmoid colon (axial image 211) where there is diverticular disease and which may represent a small focus of interval inflammation. No significant CT visualized pericolonic inflammatory changes. Persistent, severe left hydroureteronephrosis. CT visualized multifocal calcifications throughout the liver and spleen consistent with granulomatous disease. SKELETON/EXTREMITIES: Mild diffusely increased marrow activity in the axial and visualized proximal appendicular skeleton, consistent with reactive marrow. Surgical hardware within the right hip. IMPRESSION: 1. ??Marked interval decrease in size of the left bladder mass with urine activity limiting the assessment of residual active bladder malignancy. 2. ??Multiple new and enlarging FDG avid lymph nodes in the left abdominal para-aortic region, consistent with active nathaly metastases. 3. ??Previously seen small right external and right internal iliac lymph nodes have resolved metabolically and decreased in size. 4. ??Persistent severe left hydroureteronephrosis. 5. ??Incidental finding of a new small focus of activity in the sigmoid colon where there is diverticular disease, most likely representing a small focus of inflammation, of questionable clinical significance. Please correlate with clinical exam. I have personally reviewed the image(s) and the resident's interpretation and agree with the findings, Severo Webster at 01/15/2020 12:30 PM Thank you for letting us participate in the care of this patient. For questions regarding this report, please contact the number below. ? Electronically signed by: Severo Webster [facility] ([phone]), at 01/15/2020 12:30 PM Impressions 01/15/2020 12:30 PM EDT 1. ??Marked interval decrease in size of the left bladder mass with urine activity limiting the assessment of residual active bladder malignancy. 2. ??Multiple new and enlarging FDG avid lymph nodes in the left abdominal para-aortic region, consistent with active nathaly metastases. 3. ??Previously seen small right external and right internal iliac lymph nodes have resolved metabolically and decreased in size. 4. ??Persistent severe left hydroureteronephrosis. 5. ??Incidental finding of a new small focus of activity in the sigmoid colon where there is diverticular disease, most likely representing a small focus of inflammation, of questionable clinical significance. Please correlate with clinical exam. I have personally reviewed the image(s) and the resident's interpretation and agree with the findings, Severo Webster at 01/15/2020 12:30 PM Thank you for letting us participate in the care of this patient. For questions regarding this report, please contact the number below. ? Electronically signed by: Severo Webster [facility] ([phone]), at 01/15/2020 12:30 PM Narrative 01/15/2020 12:30 PM EDT EXAMINATION: NM PET CT SKULL BASE TO MID-THIGH ? 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 Subsequent treatment evaluation. TECHNIQUE: Following IV injection of 18-mxmobt-5-deoxyglucose (FDG) a standard uptake of approximately 60 minutes, a noncontrast CT scan followed by a PET scan were acquired from the base of the skull to mid thighs. The noncontrast CT was used for anatomic localization and photon attenuation correction of the PET scan. Blood glucose level: 102 (mg/dL) FDG dose: 8.6 mCi COMPARISON: PET/CT 10/05/2019 FINDINGS: HEAD/NECK: Normal activity in all soft tissue regions of the neck and visualized lower head. No lymphadenopathy. CHEST: Normal activity in all soft tissue regions. No significant pulmonary nodules or lymphadenopathy. Right-sided port catheter with distal tip in the right atrium. Coronary artery and aortic calcifications. Centrilobular emphysematous changes most prominent in the bilateral lung apices. ABDOMEN/PELVIS: Marked interval decreased size of left sided bladder mass compared to 10/05/2019 PET/CT, with urine activity limiting the assessment of residual active bladder malignancy. Multiple FDG avid lymph nodes within the left para-aortic region (axial images 141- 165) which were present at a smaller size and with no significant activity on prior study of 10/05/2019. Conference Manager largest lymph nodes in the left periaortic region measure 10 mm (axial image 143) and 15 mm (axial image 150). Metabolic resolution and decreased size of the previously seen small right external and right internal iliac lymph nodes. Small focus of FDG uptake in the sigmoid colon (axial image 211) where there is diverticular disease and which may represent a small focus of interval inflammation. No significant CT visualized pericolonic inflammatory changes. Persistent, severe left hydroureteronephrosis. CT visualized multifocal calcifications throughout the liver and spleen consistent with granulomatous disease. SKELETON/EXTREMITIES: Mild diffusely increased marrow activity in the axial and visualized proximal appendicular skeleton, consistent with reactive marrow. Surgical hardware within the right hip. Procedure Note Severo Webster MD - 01/15/2020 EXAMINATION: NM PET CT SKULL BASE TO MID-THIGH CLINICAL HISTORY: Urologic cancer, muscle invasive bladder cancer statuspost chemotherapy. Subsequent treatment evaluation. TECHNIQUE: Following IV injection of 87-ppfepg-3-deoxyglucose (FDG) astandard uptake of approximately 60 minutes, a noncontrast CT scan followed by aPET scan were acquired from the base of the skull to mid thighs. The noncontrast CTwas used for anatomic localization and photon attenuation correction of thePET scan. Blood glucose level: 102 (mg/dL) FDG dose: 8.6 mCi COMPARISON: PET/CT 10/05/2019 FINDINGS: HEAD/NECK: Normal activity in all soft tissue regions of the neck and visualizedlower head. No lymphadenopathy. CHEST: Normal activity in all soft tissue regions. No significant pulmonarynodules or lymphadenopathy. Right-sided port catheter with distal tip in the rightatrium. Coronary artery and aortic calcifications. Centrilobular emphysematouschanges most prominent in the bilateral lung apices. ABDOMEN/PELVIS: Marked interval decreased size of left sided bladder mass compared to10/05/2019 PET/CT, with urine activity limiting the assessment of residual activebladder malignancy. Multiple FDG avid lymph nodes within the left para-aortic region (axialimages 141- 165) which were present at a smaller size and with no significantactivity on prior study of 10/05/2019. Conference Manager largest lymph nodes in theleft periaortic region measure 10 mm (axial image 143) and 15 mm (axial ). Metabolic resolution and decreased size of the previously seen smallright external and right internal iliac lymph nodes. Small focus of FDG uptakein the sigmoid colon (axial image 211) where there is diverticular disease andwhich may represent a small focus of interval inflammation. No significant CT visualized pericolonic inflammatory changes. Persistent, severe left hydroureteronephrosis. CT visualized multifocal calcifications throughout the liver and spleen consistent with granulomatous disease. SKELETON/EXTREMITIES: Mild diffusely increased marrow activity in the axial and visualizedproximal appendicular skeleton, consistent with reactive marrow. Surgical hardwarewithin the right hip. IMPRESSION 1. Marked interval decrease in size of the left bladder mass with urine activity limiting the assessment of residual active bladder malignancy. 2. Multiple new and enlarging FDG avid lymph nodes in the leftabdominal para-aortic region, consistent with active nathaly metastases. 3. Previously seen small right external and right internal iliac lymphnodes have resolved metabolically and decreased in size. 4. Persistent severe left hydroureteronephrosis. 5. Incidental finding of a new small focus of activity in the sigmoidcolon where there is diverticular disease, most likely representing a smallfocus of inflammation, of questionable clinical significance. Please correlatewith clinical exam. I have personally reviewed the image(s) and the resident's interpretationand agree with the findings, Severo Webster at 01/15/2020 12:30 PM Thank you for letting us participate in the care of this patient. Forquestions regarding this report, please contact the number below. Electronically signed by: Severo Webster [facility]([phone]), at 01/15/2020 12:30 PM Stephan Armstrong MD IMG PET ORDERABLES * POCT Glucose (01/15/2020 9:02 AM EDT) Glucose, POC 102 65 - 199 mg/dL [facility] Comment: Supplemental ranges: <140 mg/dL before meals <180 mg/dL all other times of the day Blood specimen (specimen) 01/15/2020 9:02 AM EDT 01/15/2020 9:02 AM EDT Stephan Armstrong MD POINT OF CARE TEST O RDERABLES Performing Organization Address City/State/[facility] Co de Phone Number [facility] [place] [address] documented in this encounter Visit Diagnoses Diagnosis Malignant neoplasm of urinary bladder, unspecified site documented in this encounter Care Teams Ironworker Foreman Relationship Specialty Start Date End Date Subhash Dowling MD [address] [place] [id number] PCP - General 06/03/10 documented as of this encounter
--- OUTSIDE RECORDS SUMMARY | 2024-08-15 01:37 | XMS_ITS | Encounter Summary ---
Author Organization [facility] [place] [address] Care Team Providers Care Rn Hospital Name Role Phone Subhash Dowling MD Primary Care Provider [phone] Encounter Details Date Type Department Care Team (Late st Contact Info) Description 01/15/2020 11:30 AM EDT Clinical [place] [phone] Social History Tobacco Use Types Packs/Day Years [...] Sign Reading Time Taken Comments Blood Pressure 134/80 01/15/2020 11:06 AM EDT Pulse 85 01/15/2020 11:06 AM EDT Temperature - - Respiratory Rate - - Oxygen Saturation 97% 01/15/2020 11:06 AM EDT Inhaled Oxygen Concentration - - Weight 56.2 kg (124 lb) 01/15/2020 11:06 AM EDT Height 167.6 cm (5' 6) 01/15/2020 11:06 AM EDT Body Mass Index 20.01 01/15/2020 11:06 AM EDT documented in this encounter Progress Notes * Sedrick Tom, RN - 01/15/2020 11:30 AM EDT PAT questionnaire reviewed with patient while in Pre Admission testing. Pre- operative instruction booklet reviewed. Patient verbalizes a good understanding of all information reviewed. Patient has had [place] [facility] [place] [facility] [place] problem. Anesthesia to see today. PLAN: Testing: Blood work + T&S + urine (anesthesia adding on CXR & EKG) Procedure date: 02/05 [place] documented in this encounter Plan of Treatment Upcoming Encounters Date Type Department Care Team (Late st Contact Info) Description 08/15/2024 11:30 AM EST Office Visit Hematology/Oncology at [address] [phone] Chanelle Kim, [facility] [place] [address] Bee Curry [facility] [place] [address] documented as of this encounter Visit Diagnoses Not on filedocumented in this encounter Care Teams Rn Hospital Relationship Specialty Start Date End Date Subhash Dowling MD [address] [place] [id number] PCP - General 06/03/10 documented as of this encounter
--- OUTSIDE RECORDS SUMMARY | 2024-08-15 01:37 | XMS_ITS | Encounter Summary ---
[place] [address] Care Team Providers Care Personnel And Payroll Technician Name Role Phone Subhash Dowling MD Primary Care Provider [phone] Encounter Details Date Type Department Care Team (Late st Contact Info) Description 01/15/2020 4:00 PM EDT Office [place] [id number] Ostomy nurse consultation Social History Tobacco Use [...] of this encounter Progress Notes * Shelby Gilliland RN - 01/15/2020 4:00 PM EDT shaker operator note - Pt RTC for a pre-op f/u with Dr. Armstrong and the shaker operator. He was previously seen for a pre-op appointment by ANALISA Berumen, on 12/08/19. Pt is scheduled for a cystoprostatectomy with ileal conduit secondary to bladder cancer on 02/05. * Romina Rice RN - 01/15/2020 4:00 PM EDT Images from the original note were not included. Ostomy nurse note - pt. Is scheduled for cystoprastatectomy with ileal conduit secondary to bladdercancer on 02/06/2020. He previously saw Maria Luisa HAUSER who did pre-op teaching for ileal conduit and did stoma marichuy his abdomen in RLQ. He returns today and the marking is gone so I had him sit and stand and bend forward and marked same area that Maria Luisa had used. I then covered site with Tegaderm and showed him how to open the dressing and apply it and gave him several spare dressings so thatif he needs to change Tegaderm he will have spares. I showed him ostomy wafer and how to connect urostomy pouch to wafer and then showed him how to open and close pouch spout and demonstrated how he could empty urine from pouch into a container or directly into the toilet. He said that he did not have any questions at this time. I told him that he will be taught how to change appliance which is usually done twice a week. Stoma site RLQ documented in this encounter Plan of Treatment Upcoming Encounters Date Type Department Care Team (Late st Contact Info) Description 08/15/2024 11:30 AM EST Office Visit Hematology/Oncology at [address] [address] Chanelle Kim [facility] [place] [address] Bee Curry [facility] [place] [address] documented as of this encounter Visit Diagnoses Diagnosis Ostomy nurse consultation documented in this encounter Care Teams Personnel And Payroll Technician Relationship Specialty Start Date End Date Subhash Dowling MD [address] [place] [address] PCP - General 06/03/10 documented as of this encounter
--- OUTSIDE RECORDS SUMMARY | 2024-08-15 01:37 | XMS_ITS | Encounter Summary ---
Author Organization [facility] [place] [address] Care Team Providers Care Can Sorter Name Role Phone Subhash Dowling MD Primary Care Provider [phone] Reason for Referral * Consultation (Routine) - Closed Specialty Diagnoses / Procedures Referred By Haroldo clark Referred To Contact Internal Medicine Diagnoses Malignant neoplasm of urinary bladder, unspecified site Stephan Armstrong MD [facility] [place] [address] [facility] [address] [address] Referral ID Status Reason Start Date Expiration Date V isits Requested Visits Authorized [id number] Closed Consult, Test & Treat 12/09/2019 12/08/2020 1 1 * Consultation (Routine) - Closed Specialty Diagnoses / Procedures Referred By Haroldo clark Referred To Contact Pre-Admission Testing Diagnoses Malignant neoplasm of urinary bladder, unspecified site Stephan Armstrong MD [facility] [address] [facility] Pre Admit Test [address] [place] [address] Referral ID Status Reason Start Date Expiration Date V isits Requested Visits Authorized [id number] Closed Consult, Test & Treat 12/09/2019 12/08/2020 1 1 Reason for Visit * Reason Onset Date Comments Bladder Cancer Bladder Cancer 12/09/2019 Encounter Details Date Type Department Care Team (Late st Contact Info) Description 12/08/2019 1:40 PM EDT [place] [address] Stephan Armstrong MD [facility] [place] [address] Malignant neoplasm of urinary bladder, unspecified site (Primary Dx); Pain, unspecified Social History Tobacco Use Types [...] on file documented as of this encounter Patient Instructions * Patient Instructions* Stephan Armstrong MD - 12/08/2019 1:40 PM EDT Instructions Prior to Surgery Pre-Op Visit: You will be scheduled to visit with the Stoma Therapy Nurse as well as your surgeon 1-2 weeks before surgery. If you are on any blood thinners such as: Coumadin, Plavix, Aspirin, or Xarelto PLEASE check with the Urology Clinic if you did not receive any instructions on discontinuing them prior to surgery. Day Prior to Surgery: Cystectomy Patient Instructions Instructions Prior to Surgery Please stop taking any over the counter supplements one week before surgery. If you are on any blood thinners such as: Coumadin, Plavix, Aspirin, or Xarelto PLEASE check with the Urology Clinic if you did not receive any instructions on discontinuing them prior to surgery. Pre-Op Visit: You will be scheduled for a preoperative visit with your Surgeon, the Anesthesia/Preop group and the Stoma Therapy Nurse 1-2 weeks before surgery. Please call the Urology clinic if this is not scheduled. Day Prior to Surgery: Please shower 24 hours before AND the night before surgery. Please use a Chlorhexidene based antiseptic soap such as Hibiclens. You can buy Hibiclens over the counter at your pharmacy or you can obtain it from the [facility] Same day program on the day of your preoperative visit. Please take only clear liquids by mouth from noon the day before surgery. Please take nothing by mouth from 2 hours before the time you have been told to report to the hospital. If you have any questions please call the [facility] at or documented in this encounter Progress Notes * Stephan Armstrong MD - 12/08/2019 1:40 PM EDT Images from the original note were not included. Initially Referred by Dr Britt and Jovanny Hurley. He comes for f/u of bladder cancer. Initially seen 10/05/2019. HPI:Wally Aguilar is 69 y[address] [...] and hydronephrosis. There was no gross evidence ofmetastatic disease. He underwent TURBT on July 31. Pathology revealed muscular invasive urothelial carcinoma. He was referred to medical oncology and radiation oncology, but missed at least 3 appointments due to transportation problem. 08/03/[address] Hurley Large Left bladder wall mass. Incomplete resection. Unclear if JUSTYNA seen EUA residual mass with some limitation of mobility Department of Pathology & Laboratory Medicine [place] [phone] , (Fax) [phone] Name: WALLY AGUILAR Provider: OPAL LUJAN Client: [facility] /Age/Sex: 1950 69 years Male Location: [facility] Report ID: [id number] The signing pathologist has (i) examined the relevant preparation(s) for the specimen(s); and (ii) rendered or confirmed the diagnosis(es). Pathology Report Collected: 08/29/2019 09:42 Received: 08/29/2019 09:42 Surgical Pathology DIAGNOSIS CONSULTATION CASE Outside slide(s) labeled [id number], collection date 07/31/2019. Urinary bladder, site not specified, mass, TURBT: - High grade urothelial carcinoma, invasive into muscularis propria and asuncion- muscular bundle adipose tissue. - Focal urothelial carcinoma in situ. Electronically signed by: Kalani Cabrera MD Verified: 08/31/2019 Pathologist Performed at: -[facility] Dept. of Pathology, [place], [place] DISCUSSION Per outside report, the tumor cells are positive for GATA3 and negative for NKX3.1 and Pax8 on immunostains(the immunostaining slides were not submitted for review). 09/2019 decision for neoadjuvant cheotherapy followed by cystectomy 12/05/2019 Day 1 cycle 3 He is tolerating the chemotherapy reasonably well. Currently he is voiding well. He his voiding every hour during the day. He is up 2-3x. His has somedysuria and blood. He has no flank pain. Erections OK Appetite good OK, Weight Stable PMH: COPD Left leg claudication GERD HTN Hypercholesterolism PShx 1991 Hip Fracture Right 2018 Hernia operation with MESH (Large midline scar, not sure that this is a correct memory) Social History: Smoker 2 packs a day for total of more than 110 pack-year smoking history. Drinks 2-3 beers several times a week, sometimes he drinks hard liquor as well. He lives by himself. 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 Lives alone. He has 2 children but he is not in touch with them. He has a parquet. Family History: No bladder cancer Allergies: Allergies Allergen Reactions ??? Wellbutrin [Bupropion Hcl] Other (See Comments) Unknown on pt's chart from outside facility Medications: Your Medications Accurate as of December 08, 2019 2:23 PM. If you have any questions, ask your nurse or doctor. Continued medications, unchanged Dose Details albuteroL 90 mcg/actuation Hfaa Inhale 2 puffs into the lungs every 4 hours as needed for Wheezing. Use with spacer 2 puff Refills: 0 aspirin EC 81 mg Tbec Take 81 mg by mouth daily. 81 mg Refills: 0 atenoloL 25 mg Tab Commonly known as: Tenormin Take 25 mg by mouth daily. 25 mg Refills: 0 atorvastatin 20 mg Tab Commonly known as: Lipitor Take 20 mg by mouth daily. 20 mg Refills: 0 prochlorperazine 10 mg Tab Commonly known as: Compazine Take 1 tablet by mouth every 6 hours as needed for Nausea. 10 mg Quantity: 60 tablet Refills: 3 traMADoL 50 mg Tab Commonly known as: Ultram Take 50 mg by mouth every 6 hours as needed for Pain. 50 mg Refills: 0 varenicline 0.5 mg (11)- 1 mg (42) Dspk Commonly known as: CHANTIX 0.5 mg by mouth daily for 3 days then 0.5mg by mouth twice a day for 4 days then 1mg twice a day. Start drug 1 week before quit day. Quantity: 53 tablet Refills: 0 Review of Systems: Constitutional: Limited by claudication 50-100yards. PE: The patient appears well developed and healthy. There is no lymphadenopathy HEENT normal, Skin normal, No adenopathy CV HS 1 &2 normall nil added, No pulses below femorals The abdomen is benign without masses. There are no visible or palpable hernias. The liver, spleen and kidneys are impalpable. Long midline scar. External genitalia are normal. The scrotal skin is healthy and there are no masses The phallus has no masses scaring or abnormality The urethra is in normal position without discharge The testis are normal without masses The epididymis are normal without masses Rectal exam Not performed Pathology: 07/31/2019 Urinary bladder, site not specified, mass, TURBT: - High grade urothelial carcinoma, invasive into muscularis propria and asuncion-muscular ??bundle adipose tissue. - Focal urothelial carcinoma in situ Labs 10/04 Hb 15.4, Plt 194, Cr 1.17, Alk 172 Imagin02/28/2019 CT abdomen pelvis: Conclusion: Obstructing mass of the bladder floor to the left of midline. Secondary left hydroureter and hydronephrosis. The findings are highly suggestive for bladder carcinoma. No gross evidence ofmetastatic disease. 09/2019 PET IMPRESSION 1. A 5 cm FDG avid left bladder wall malignancy extending to the bladder base, and causing severe left hydroureteronephrosis which has worsened compared to prior CT of 02/2019. 2. Small nathaly metastases in the bilateral external iliac regions. 3. No distant sites of metastasis. Impression: T3N2M0 High Grade Urothelial cancer PVD Moderate Comorbidity Challenging Social circumstances Plan Complete neoadjuvant chemo and restage will ask Dr Britt to arrange with PET in [facility] time for cystectomy ~ 2 months F/U 1 month with stoma/anaesthesia and periop GIM (PVD and a cardiac evaluation prior to surgery) Continued Nurse navigation support He met with stoma therapy today We discussed the operation of radical cystoprostatectomy (openn and lap/robotic). We discussed the pre/intra/post operative course as well as the risks. We discussed this was a significant operation with an at least 30% risk of a complications. We discussed the risk of sexual dysfunction. I discussed the planned procedure including extended lymphadenectomy, removal of the bladder and prostate. We discussed the pre/intraoperative and post operative care and management. We talked about the risks of bleeding, infection, transfusion (HIV), injury to adjacent organs, nerves blood vesselsetc. We discussed the risks of injury to the rectum and the need for a temporary colostomy. We discussed the risks of erectile dysfunction. We discussed the risks of unexpected complications requiring prolonged hospitalization, icu care, reoperation etc. He understands further treatment of the bladder cancer would dpend on final pathology and may include chemotherapy and radiation. We reviewed the other types of urinary diversion before focusing on an ileal conduit. We discussed the procedure of ileal conduit. We discussed bowel stomal and ureteral problems.... leaks, stricture, hernias etc. The patient was given bowel prepartion instructions and met with the stoma therapy nurse. All questions were answered. He knows he can call if there are any issues or questions. ~ 1 hour counselling patient and coordinating care. documented in this encounter Plan of Treatment Upcoming Encounters Date Type Department Care Team (Late st Contact Info) Description 08/15/2024 11:30 AM EST Office Visit Hematology/Oncology at [address] [address] Chanelle Kim, [facility] [place] [address] Bee Curry, [facility] [place] [address] Scheduled Referrals Name Type Priority Associated Diagnoses Order Schedule Referral to General Anesthesiology Outpatient Referral Routine Malignant neoplasm of urinary bladder, unspecified site Ordered: 12/09/2019 Referral to General Internal Medicine Outpatient Referral Routine Malignant neoplasm of urinary bladder, unspecified site Ordered: 12/09/2019 documented as of this encounter Procedures Procedure Name Priority Date/Time Associated Diagnosis Comments CYSTECTOMY,COMPLETE,W\ ILEAL CONDUIT Routine 12/09/2019 3:15 PM EDT Malignant neoplasm of urinary bladder, unspecified site documented in this encounter Results * (ABNORMAL) Urine culture Clean Catch Urine (01/15/2020 12:45 PM EDT) Urine Culture 10,000-49,000 cfu/ml mixed mucosal sheri 1,000-9,000 cfu/ml Gram Negative organisms Note: Culture shows multiple bacterial species suggesting mucosal contamination. If symptoms continue to indicate urinary tract infection, submit a new specimen. (A) [facility] Urine specimen obtained by clean catch procedure (specimen) 01/15/2020 12:45 PM EDT 01/15/2020 1:09 PM EDT Narrative Resulting Agency Comment Spec In Lab Stephan Armstrong MD MICROBIOLOGY - GENER AL ORDERABLES [facility] [place] [address] * Prealbumin (01/15/2020 12:37 PM EDT) Prealbumin 23 20 - 40 mg/dL [facility] Comment: Prealbumin levels are generally lower in the pediatric population; adult concentrations are usually attained near puberty. Blood specimen (specimen) 01/15/2020 12:37 PM EDT 01/15/2020 12:54 PM EDT Narrative Resulting Agency Comment Spec In Lab Stephan Armstrong MD CHEMISTRY ORDERABLES [facility] [place] [address] * (ABNORMAL) Comprehensive metabolic panel (non-fasting) (01/15/2020 12:37 PM EDT) Glucose 100 65 - 199 mg/dL [facility] Comment:Diabetes: >=200 mg/d L plus symptoms Blood Urea Nitrogen 15 10 - 20 mg/dL [facility] Creatinine 0.98 0.80 - 1.50 mg/dL [facility] Sodium 138 135 - 145 mmol/L [facility] Potassium 4.5 3.5 - 5.0 mmol/L [facility] Comment: Please note: ??Patients with WBC >100,000 may have falsely elevated Potassium levels. ??For accurate Potassium quantification in these patients send serum separator tube (gold top) for subsequent determinations. ??Contact the Clinical Chemistry Laboratory if there are any questions. Chloride 103 98 - 107 mmol/L [facility] Carbon Dioxide 24 22 - 31 mmol/L [facility] Anion Gap 11 5 - 15 mmol/L [facility] Calcium 9.4 8.5 - 10.5 mg/dL [facility] Protein, Total 7.0 6.1 - 8.0 gm/dL [facility] Albumin 3.9 3.2 - 5.2 gm/dL [facility] Aspartate Aminotransferase 8 0 - 39 unit/L [facility] Alanine Aminotransferase 8 0 - 55 unit/L [facility] Alkaline Phosphatase 164(H) 40 - 130 unit/L [facility] Bilirubin, Total 0.2 0.2 - 1.3 mg/dL [facility] Est Glomerular Filtration Rate 79 >=60 mL/min/1. 73 m?? [facility] Comment: The eGFR was calculated using the CKD-EPI equation. As with all creatinine based estimates of kidney function, eGFR values calculated with the CKD-EPI equation are not accurate in patients with acute kidney failure, extremes of body mass or the acutely ill. [email or web address]/[facility] eGFR 92 >=60 mL/min/1. 73 m?? [facility] Comment: The eGFR was calculated using the CKD-EPI equation. As with all creatinine based estimates of kidney function, eGFR values calculated with the CKD-EPI equation are not accurate in patients with acute kidney failure, extremes of body mass or the acutely ill. [email or web address]/[facility] Blood specimen (specimen) 01/15/2020 12:37 PM EDT 01/15/2020 12:54 PM EDT Narrative Resulting Agency Comment Spec In Lab Stephan Armstrong MD CHEMISTRY ORDERABLES [facility] [place] [place] [address] documented in this encounter Visit Diagnoses Diagnosis Malignant neoplasm of urinary bladder, unspecified site- Primary Pain, unspecified documented in this encounter Care Teams Can Sorter Relationship Specialty Start Date End Date Subhash Dowling MD [address] [place] [id number] PCP - General 06/03/10 documented as of this encounter
--- OUTSIDE RECORDS SUMMARY | 2024-08-15 01:37 | XMS_ITS | Encounter Summary ---
[place] [address] Care Team Providers Care System Configuration Specialist Name Role Phone Subhash Dowling MD Primary Care Provider [phone] Encounter Details Date Type Department Care Team (Late Contact Info) Description 01/24/2020 Telephone [place] [phone] Ingris Pappas Social History Tobacco Use Types [...] Telephone Encounter - Ingris Velazquez CCMA - 01/24/2020 2:54 PM EDT I called both numbers listed for the patient. One of [facility] and the other wasfor Ketty who helps set up his appointments she stated she was going to call him and remind him of his appointment of his appointment tomorrow with Dr. Finch documented in this encounter Plan of Treatment Upcoming Encounters Date Type Department Care Team (Late Contact Info) Description 08/15/2024 11:30 AM EST Office Visit Hematology/Oncology at [address] [address] Chanelle Kim, [facility] [place] [address] Bee Curry [facility] [place] [address] documented as of this encounter Visit Diagnoses Not on filedocumented in this encounter Care Teams System Configuration Specialist Relationship Specialty Start Date End Date Subhash Dowling MD [address] [place] [address] PCP - General 06/03/10 documented as of this encounter
--- OUTSIDE RECORDS SUMMARY | 2024-08-15 01:37 | XMS_ITS | Encounter Summary ---
[place] [address] Care Team Providers Care Pound Attendant Name Role Phone Subhash Dowling MD Primary Care Provider [phone] Encounter Details Date Type Department Care Team (Late st Contact Info) Description 01/16/2020 [place] [phone] Arthur Yost MD Social History Tobacco Use Types Packs/Day [...] as of this encounter Progress Notes * Arthur Yost MD - 01/16/2020 3:04 PM EDT Images from the original note were not included. FOCUSED H&P and PRE-PROCEDURE VIR NOTE: PCP: Subhash Dowling MD Referring Physician: Stephan Armstrong MD (- Urology) Planned Procedure: CT guided left retroperitoneal LN biopsy Procedure Indication: Bladder Ca, hypermetabolic nodes on PET/CT Presenting Diagnosis/ Complaint: 69 yr old M patient, diagnosed with bladder Ca in early 2018; subsequently treated with TURBT (path=muscle invasive dz) and MVAC chemotherapy. His most recent PET/CT (01/15/2020) scan showed: 1. Marked interval decrease in size of the left bladder mass with urine activity limiting the assessment of residual active bladder malignancy. 2. Multiple new and enlarging FDG avid lymph nodes in the left abdominal para- aortic region, consistent with active nathaly metastases. CT guided biopsy is requested to determine histology of the LNs and direct future therapy. Past Medical/Surgical History: Patient Active Problem List [...] in place Z95.828 ??? Bladder cancer C67.9 Past Medical History: Diagnosis Date ??? Asthma ??? Cancer kidney ??? Chronic pain right calf paiins him since his hip surgery ??? COPD (chronic obstructive pulmonary disease) pt has asthma but states he does not have copd or emphysema ??? Delayed emergence from anesthesia ??? Intraoperative complication during his only surgery (hip from a fall off a doroteo) in 1990 [place] he woke up during the procedure ??? Peptic ulcer disease ??? Seizure last seizure was 20 years ago ~ suffered from epilepsy but does not seem to be an issue anymore ??? Status post chemotherapy just had 8 weeks pf treatments 3 weeks ago ??? Transfusion history does not know ??? Vertigo balance problems only from the left leg being longer than the right leg from his hip surgery Past Surgical History: Procedure Laterality Date ??? IR MEDIPORT PLACEMENT/EXCHANGE 11/27/2019 IR Mediport Placement 11/27/2019 Jason Lujan PA [facility] INTER[facility]ION[facility] RAD Medications: Current Outpatient Medications on File Prior to Visit Medication Sig Dispense Refill ??? metroNIDAZOLE (FlagyL) 500 mg Tablet Take 4 tablets by mouth 2 times daily for 2 doses. Take 4 tablets at 7PM and 4 Tablets at 11PM the night before surgery 8 tablet 0 ??? neomycin (Mycifradin) 500 mg Tablet Take 4 tablets by mouth 2 times daily for 2 doses. Take 4 tablets at 7PM and 4 Tablets at 11PM the night before surgery 8 tablet 0 ??? ondansetron (Zofran) 8 mg Tablet Take 1 tablet by mouth every 8 hours for 3 doses. Take 1 tablet at 1PM the afternoon before surgery then every 8 hours 3 tablet 0 ??? varenicline (CHANTIX) 0.5 mg (11)- 1 mg (42) Tablets, Dose Pack 0.5 mg by mouth daily for 3 days then 0.5mg by mouth twice a day for 4 days then 1mg twice a day. Start drug 1 week before quit day. 53 tablet 0 ??? albuterol 90 mcg/actuation HFA Aerosol Inhaler Inhale 2 puffs into the lungs every 4 hours as needed for Wheezing. Use with spacer ??? atenoloL (Tenormin) 25 mg Tablet Take 25 mg by mouth daily. ??? traMADoL (Ultram) 50 mg Tablet Take 50 mg by mouth every 6 hours as needed for Pain. ??? aspirin EC 81 mg Tablet, Delayed Release (E.C.) Take 81 mg by mouth daily. ??? atorvastatin (Lipitor) 20 mg Tablet Take 20 mg by mouth daily. No current facility-administered medications on file prior to visit. Allergies: Wellbutrin [bupropion hcl] Social History and [...] and Sexual Activity ??? Alcohol use: Yes Comment: 2 ??? Drug use: Not on file ??? Sexual activity: Not on file Lifestyle ??? Physical activity Days per week: Not on file Minutes per session: Not on file ??? Stress: Not on file Relationships ??? Social connections Talks on phone: Not on file Gets together: Not on file Attends [employer] service: Not on file Active member of [...] ??? Not on file Social History Narrative ??? Not on file Significant Family History: No family history on file. Physical Exam: Pending Labs: Lab Results Component Value Date WBC 10.5 (H) 01/15/2020 HCT 37.5 (L) 01/15/2020 PLATELET 210 01/15/2020 BUN 15 01/15/2020 CREATININE 0.98 01/15/2020 ALKPHOS 164 (H) 01/15/2020 AST 8 01/15/2020 ALBUMIN 3.9 01/15/2020 BILITOT 0.2 01/15/2020 ALT 8 01/15/2020 PROT 7.0 01/15/2020 Prior Imaging: Assessment: Muscle invasive bladder Ca with hypermetabolic LN on PET/CT Plan: CT guided left retroperitoneal LN bx; targeting one that is located caudal to renal artery/vein Labs: None new needed Prophylactic antibiotic: [none] Medications to discontinue (and when): Hold ASA x 5 days Patient Position: Prone Access site: Left flank General Anesthesia: [no] documented in this encounter Plan of Treatment Upcoming Encounters Date Type Department Care Team (Late st Contact Info) Description 08/15/2024 11:30 AM EST Office Visit Hematology/Oncology at [address] [phone] Chanelle Kim [facility] [address] Bee Curry CHEMICAL RECLAMATION EQUIPMENT OPERATOR [facility] [place] [address] documented as of this encounter Visit Diagnoses Not on filedocumented in this encounter Care Teams Pound Attendant Relationship Specialty Start Date End Date Subhash Dowling MD [address] [place] [address] PCP - General 06/03/10 documented as of this encounter
--- OUTSIDE RECORDS SUMMARY | 2024-08-15 01:37 | XMS_ITS | Encounter Summary ---
Author Organization [facility] One [facility] [place] [address] Care Team Providers Care Sewing Machine Mechanic Name Role Phone Subhash Dowling MD Primary Care Provider [phone] Encounter Details Date Type Department Care Team (Late Contact Info) Description 12/01/2019 Orders Only Hematology/Oncology at [address] [phone] Chanelle Kim [facility] [place] [address] Social History Tobacco Use Types Packs/Day Years [...] AM EST Office Visit Hematology/Oncology at [address] [phone] Chanelle Kim [facility] [place] [address] Bee Curry ORTHOPEDIC SPECIALIST [facility] [place] [address] documented as of this encounter Visit Diagnoses Not on filedocumented in this encounter Care Teams Sewing Machine Mechanic Relationship Specialty Start Date End Date Subhash Dowling MD [address] [address] PCP - General 06/03/10 documented as of this encounter
--- OUTSIDE RECORDS SUMMARY | 2024-08-15 01:37 | XMS_ITS | Encounter Summary ---
Author Organization [facility] One [facility] [place] [address] Care Team Providers Care Mail Censor Name Role Phone Subhash Dowling MD Primary Care Provider [phone] Encounter Details Date Type Department Care Team (Late Contact Info) Description 11/27/2019 Orders Only Hematology/Oncology at [address] [phone] Chanelle Kim [facility] [place] [address] Social History Tobacco Use Types Packs/Day Years [...] AM EST Office Visit Hematology/Oncology at [address] [phone] Chanelle Kim [facility] [place] [address] Bee Curry TRAFFIC MANAGER [facility] [place] [address] documented as of this encounter Visit Diagnoses Not on filedocumented in this encounter Care Teams Mail Censor Relationship Specialty Start Date End Date Subhash Dowling MD [address] [address] PCP - General 06/03/10 documented as of this encounter
--- OUTSIDE RECORDS SUMMARY | 2024-08-15 01:37 | XMS_ITS | Encounter Summary ---
Author Organization [facility] [place] [address] Care Team Providers Care Vehicle Technician Name Role Phone Subhash Dowling MD Primary Care Provider [phone] Reason for Visit * Reason Onset Date Comments Follow-up 11/28/2019 Encounter Details Date Type Department Care Team (Late st Contact Info) Description 11/28/2019 Telephone Hematology/Oncology at [address] [phone] Denise Lamb RN Follow-up Social History Tobacco [...] Telephone Encounter - Denise Lamb RN - 11/28/2019 10:08 AM EDT Called [facility] to see if gt had been picked up. They said he called and cancelled his ride this AM. Called pt and he said he did not have our number to let us know he was not coming in as he had diarrhea 2-3 times since 3 am. Gave him our number again he wrote down and read it back to me. He is scheduled to come to clinic next week , he agrees with plan. Asked about his urology clinic yesterday and he said [facility] must not have known about it that's why thangid not go. documented in this encounter Plan of Treatment Upcoming Encounters Date Type Department Care Team (Late st Contact Info) Description 08/15/2024 11:30 AM EST Office Visit Hematology/Oncology at [address] [phone] Chanelle Kim, [facility] [place] [address] Bee Curry [facility] [place] [address] documented as of this encounter Visit Diagnoses Not on filedocumented in this encounter Care Teams Vehicle Technician Relationship Specialty Start Date End Date Subhash Dowling MD [address] [place] [address] PCP - General 06/03/10 documented as of this encounter
--- OUTSIDE RECORDS SUMMARY | 2024-08-15 01:37 | XMS_ITS | Encounter Summary ---
Author Organization [facility] Address [facility] [place] [address] Care Team Providers Care Aircraft Quality Control Inspector Name Role Phone Subhash Dowling MD Primary Care Provider [phone] Encounter Details Date Type Department Care Team (Late st Contact Info) Description 12/19/2019 9:30 AM EDT Office Visit Hematology/Oncology at [address] [phone] Aries Quiñones MD [facility] DR HEMATOLOGY [place] [address] Chanelle Kim APRN [facility] [place] [address] 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 Social [...] Sign Reading Time Taken Comments Blood Pressure 124/73 12/19/2019 9:37 AM EDT Pulse 72 12/19/2019 9:37 AM EDT Temperature 36.5 ??C (97.7 ??F) 12/19/2019 9:37 AM ED T Respiratory Rate 16 12/19/2019 9:37 AM EDT Oxygen Saturation 100% 12/19/2019 9:37 AM EDT Inhaled Oxygen Concentration - - Weight 58.5 kg (129 lb) 12/19/2019 9:37 AM EDT Height 167.6 cm (5' 5.98) 12/19/2019 9:37 AM ED T Body Mass Index 20.83 12/19/2019 9:37 AM EDT documented in this encounter Progress Notes * Julio Chanelle Tito, MOTORCYLES FINAL INSPECTOR - 12/19/2019 9:30 AM EDT Images from the original note were not included. Diagnosis: Muscular invasive bladder cancer Subjective: I feel good- ready to get this over with. HPI:Gt Aguilar is 69 y[address] by Dr. Hruley for a consultation on bladder cancer. He [...] least 3 appointments due to transportation problem. Interval History:Mr. Aguilar returns to clinic in [facility] today for follow up of bladder cancer and day 1 of 4th cycle of chemotherapy. He missed his treatment last week. Today he feels well. Denies any diarrhea. Denies any fevers, chills or signs of infection. Mr. Aguilar lives alone in [place] and has little social support. He does have a [facility] coordinator Ketty Garcia who picks uphis prescriptions and checks in on him. Overall he has done well with his treatments. Appetite is good. Maintaining his weight. Denies any nausea or vomiting. He is still smoking but has cut back to 1/2 pack a day. He has been on the Chantix for a week now. No rash or skin issues. He states he is taking fluids well. Denies any dysuria today. No hematuria. PMH: No interval changes since last visit GERD, hypertension, hypercholesterolemia, hernia, peripheral vascular disease, COPD, history of hernia repair, right hip fracture, Social History: Smoker 2 packs a day for total of more than 110 pack-year smoking history. Drinks 2-3 beers several times a week, sometimes he drinks hard liquor as well. He lives by himself. Used [employer] as a [employer] but he has been off work since at least 1991. Lives alone. He has 2 children but he is not in touch with them Family History: Noncontributory Allergies: Allergies Allergen Reactions ??? Wellbutrin [Bupropion Hcl] Other (See Comments) Unknown on pt's chart from outside facility Medications: Your Medications Accurate as of December 19, 2019 10:00 AM. If you have any questions, ask [...] tablet Refills: 0 Review of Systems: Constitutional: Maintaining [...] axillary nodes normal Neurologic: Normal Vitals BP 124/73 (Patient Position: Sitting) Pulse 72 Temp 36.5 ??C (97.7 ??F) (Temporal) Resp 16 Ht 167.6 cm (5' 5.98) Wt 58.5 kg (129 lb) SpO2 100% BMI 20.83 kg/m?? Pathology: 07/31/2019 Urinary bladder, site not specified, mass, TURBT: - High grade urothelial carcinoma, invasive into muscularis propria and asuncion-muscular ??bundle adipose tissue. - Focal urothelial carcinoma in situ Labs: 12/19/19- WBC-5.74 Hgb/Hct-12.5/37.6 Plt-188 ANC-3.60 BUN/Cr-12/1.21 Mg-2.2 [...] invasive Treatment: -07/31/[address] Hurley -10/17/2019 started cisplatin 35 mg/m?? days 1 and 8 and gemcitabine 1000 mg/m?? day 1 and 8 Mr. Aguilar is 69 years old gentleman [...] to be treated. He met with Dr. Armstrong back between C2 and C3 of chemotherapy with the stoma therapist. Mr. Aguilar returns today for D1C4 of chemotherapy. He appears to be tolerating his treatments well.Denies any side effects from chemotherapy. No evidence of clinical toxicities. No hematuria or dysuria. Will continue treatments as prescribed. #Social situation: He is not able to read, has difficult social situation living alone and not having transportation, I do not know if he has official disability and what his insight is in his disease/prognosis # Tobacco cessation- He states he has cut back to 1/2 pack of cigarettes a day. He started the Chantix a week ago. Plan: 1. Proceed with D1C4 Cisplatin/Gemcitabine as scheduled today. 2. CBC,CMP,Mg 3. Follow up in 1 week with labs and infusion. Mr. 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
--- OUTSIDE RECORDS SUMMARY | 2024-08-15 01:37 | XMS_ITS | Encounter Summary ---
Author Organization [facility] [place] [address] Care Team Providers Care Grounds Maintenance Supervisor Name Role Phone Subhash Dowling MD Primary Care Provider [phone] Encounter Details Date Type Department Care Team (Late st Contact Info) Description 01/24/2020 Telephone Hematology [place] [phone] Kalyani Burgos RN Social History Tobacco Use Types Packs/Day [...] Telephone Encounter - Kalyani Burgos RN - 01/25/2020 7:49 AM EDT I spoke with Nadia Ami regarding pt`s missed appointment for his biopsy (biopsy moved to 01/31/20per note review) and pt`s transportation for his other scheduled appointments. Nadia will set-up his transportation for surgery and his biopsy schedule. chocolate finisher operator, Lou Melissa, verbalized that pt`s appointment schedules were sent to his home address in December but will send new pt`s appointment schedules along with an educational material about cystectomy to pt`s address. * Telephone Encounter - Kalyani Burgos RN - 01/24/2020 12:05 PM EDT Attempted to reach out for check-in. Left a message to Ketty regarding check-in. documented in this encounter Plan of Treatment Upcoming Encounters Date Type Department Care Team (Late st Contact Info) Description 08/15/2024 11:30 AM EST Office Visit Hematology/Oncology at [address] [phone] Chanelle Kim [facility] [place] [address] Bee Curry [facility] [place] [address] documented as of this encounter Visit Diagnoses Not on filedocumented in this encounter Care Teams Grounds Maintenance Supervisor Relationship Specialty Start Date End Date Subhash Dowling MD [address] [place] [id number] PCP - General 06/03/10 documented as of this encounter
--- OUTSIDE RECORDS SUMMARY | 2024-08-15 01:37 | XMS_ITS | Encounter Summary ---
[place] [address] Care Team Providers Care Call Center Consultant Name Role Phone Subhash Dowling MD Primary Care Provider [phone] Encounter Details Date Type Department Care Team (Late st Contact Info) Description 12/05/2019 Telephone Hematology [place] [phone] Yamilka Hernandez, RN Social History Tobacco Use Types Packs/Day [...] encounter Miscellaneous Notes * Telephone Encounter - Yamilka Hernandez, RN - 12/06/2019 8:50 AM EDT Successfully faxed Physician's Referral form to [place] Medicaid. Placed call to [facility] to inform them thatform was successfully faxed. Placed call to Gt, who has not recently picked up his mail and so has not yet received my calendar of appointments; however, Gt was aware of appointments on 12/[address] Armstrong and the operations research manager. Gt (and friend, Subhash) confirmed that [facility] plans to pick him up at home at 11:00 to bring him to [facility] in [place] this Wednesday. Informed Gt that I will not be ableto meet him at his appointment, but that the Nurse Navigator (Kalyani Burgos) may be available to do so. Gt knows to contact me with any questions. documented in this encounter Plan of Treatment Upcoming Encounters Date Type Department Care Team (Late st Contact Info) Description 08/15/2024 11:30 AM EST Office Visit Hematology/Oncology at [address] [phone] Chanelle Kim, [facility] [place] [address] Bee Curry, [facility] [place] [address] documented as of this encounter Visit Diagnoses Not on filedocumented in this encounter Care Teams Call Center Consultant Relationship Specialty Start Date End Date Subhash Dowling MD [address] [place] [id number] PCP - General 06/03/10 documented as of this encounter
--- OUTSIDE RECORDS SUMMARY | 2024-08-15 01:37 | XMS_ITS | Encounter Summary ---
Author Organization [facility] [place] [address] Care Team Providers Care Security Rover Name Role Phone Subhash Dowling MD Primary Care Provider [phone] Reason for Visit * Reason Onset Date Comments Other 12/26/2019 tranportation Encounter Details Date Type Department Care Team (Late st Contact Info) Description 12/26/2019 Telephone Hematology/Oncology at [address] [phone] Nadia Mueller MSW OFFICE OF CARE MANAGEMENT Other (tranportation) Social History Tobacco Use Types Packs/Day Years [...] Telephone Encounter - Nadia Mueller MSW - 12/26/2019 8:50 AM EDT [facility] this morning to confirm pt is scheduled for rides to on 12-29-19 with 9:30 arrival time and a 3 pm pickup for home. They also received approval from Medicaid Transportation from physician referral for submitted for this ride. Add: 10 am. TC phone visit with pt after his provider visit and before infusion. Reminded pt of hisappointment at scheduled for Wednesday12-29-19. His ride with [facility] has been confirmed. Inquired how managing day to day and he indicated he is doing okay. His friend Boubacar continues as aprimary support. Will continue to follow for support and resources. documented in this encounter Plan of Treatment Upcoming Encounters Date Type Department Care Team (Late st Contact Info) Description 08/15/2024 11:30 AM EST Office Visit Hematology/Oncology at [address] [phone] Chanelle Kim, [facility] [place] [address] Bee Curry, [facility] [place] [address] documented as of this encounter Visit Diagnoses Not on filedocumented in this encounter Care Teams Security Rover Relationship Specialty Start Date End Date Subhash Dowling MD [address] [place] [id number] PCP - General 06/03/10 documented as of this encounter
--- OUTSIDE RECORDS SUMMARY | 2024-08-15 01:37 | XMS_ITS | Encounter Summary ---
Author Organization [facility] Address [facility] [place] [address] Care Team Providers Care Capping Machine Operator Name Role Phone Subhash Dowling MD Primary Care Provider [phone] Reason for Visit * Reason Comments Follow-up Encounter Details Date Type Department Care Team (Late st Contact Info) Description 12/05/2019 9:30 AM EDT Office Visit Hematology/Oncology at [address] [phone] Aries Quiñones MD [facility] [place] [address] Chanelle iKm APRN [facility] [place] [address] 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; Malignant neoplasm of overlapping sites of bladder; Encounter for chemotherapy management; Tobacco abuse Social History Tobacco Use Types [...] Sign Reading Time Taken Comments Blood Pressure 124/74 12/05/2019 9:49 AM EDT Pulse 72 12/05/2019 9:49 AM EDT Temperature 36.6 ??C (97.9 ??F) 12/05/2019 9:49 AM ED T Respiratory Rate 18 12/05/2019 9:49 AM EDT Oxygen Saturation 100% 12/05/2019 9:49 AM EDT Inhaled Oxygen Concentration - - Weight 58.6 kg (129 lb 3.2 oz) 12/05/2019 9:49 A M EDT Height 167.6 cm (5' 5.98) 12/05/2019 9:49 AM ED T copied Body Mass Index 20.86 12/05/2019 9:49 AM EDT documented in this encounter Progress Notes * Aries Quiñones MD - 12/05/2019 9:30 AM EDT Images from the original note were not included. Diagnosis: Muscular invasive bladder cancer Subjective: I had a little bit of blood when I just went to the bathroom now. HPI:Gt Aguilar is 69 y.o. referred by [...] of bladder cancer and day 1 of 3-rd cycle of chemotherapy. He canceled his last week visit due to diarrhea. Today hefeels well. Denies any diarrhea. Denies any fevers, chills or signs of infection. Mr. Aguilar lives alone in [place], [place] and has little social support. He does have a [facility] coordinator Ketty Garcia who picks up his prescriptions and checks in on him. Overall he has done well with his treatments. Appetite is good. Maintaining his weight. Denies any nausea or vomiting. He is still smoking but has been cutting back. No rash or skin issues. He states he is taking fluids well. Denies any dysuria today. PMH: No interval changes since last visit GERD, hypertension, hypercholesterolemia, hernia, peripheral vascular disease, COPD, history of hernia repair, right hip fracture, Social History: Smoker 2 packs a day for total of more than 110 pack-year smoking history. Drinks 2-3 beers several times a week, sometimes he drinks hard liquor as well. He lives by himself. 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 Lives alone. He has 2 children but he is not in touch with them Family History: Noncontributory Allergies: Allergies Allergen Reactions ??? Wellbutrin [Bupropion Hcl] Other (See Comments) Unknown on pt's chart from outside facility Medications: Your Medications Accurate as of December 05, 2019 10:02 AM. If you have any questions, ask [...] diarrhea and abdominal distention.Mild constipation-uses laxatives. Genitourinary: Positive for minor amount of hematuria but no gross hematuria since TURBT on . Denies dysuria today. Musculoskeletal: Positive for muscle [...] sounds throughout. Chest Wall: No tenderness or deformity Heart: Regular rate and rhythm, S1, S2 normal, no murmur, rub or gallop Abdomen: Soft, non-tender, bowel sounds active all four quadrants, no masses, no organomegaly. There is no appreciable ascites Extremities: Extremities normal, atraumatic, no cyanosis or edema Pulses: 2+ and symmetric Skin: Skin color, texture, turgor normal, no rashes or lesions Lymph nodes: Cervical, supraclavicular, and axillary nodes normal Neurologic: Normal Vitals BP 124/74 (Patient Position: Sitting) Pulse 72 Temp 36.6 ??C (97.9 ??F) (Temporal) Resp 18 Ht 167.6 cm (5' 5.98) Comment: copied Wt 58.6 kg (129 lb 3.2 oz) SpO2 100% BMI 20.86 kg/m?? Pathology: 07/31/2019 Urinary bladder, site not specified, mass, TURBT: - High grade urothelial carcinoma, invasive into muscularis propria and asuncion-muscular ??bundle adipose tissue. - Focal urothelial carcinoma in situ Labs: 12/05/2019 WBC 10.96, hemoglobin 12.8, platelet count [...] albumin 3.3. 11/07/19- WBC-21.41 Hgb/Hct-13.9/40.4 Plt-302 ANC-16.16 BUN/Cr-16/.23 Lytes and LFTS unremarkable Alk phos-222 Albumin-3.3 10/24/19- WBC-6.11 Hgb/Hct-14.2/41.8 Plts-121 ANC-3.78 BUN/Cr-20/.28 Lytes and LFTS unremarkable Alk phos-156 Albumin-3.5 [...] care. He would like to be treated. Dr. Armstrong will seethe patient back between C2 and C3 of chemotherapy with the stoma therapist. Mr. Aguilar returns today for D1C3 of chemotherapy. He appears to be tolerating his treatments well.Denies any side effects from chemotherapy. He had 2 or 3 loose bowel movements last week, but overwise, no evidence of clinical toxicities. Burning with urination resolved today but he is still having a small amount of bleeding on occasion. Will continue treatments as prescribed. #Social situation: He is not able to read, has difficult social situation living alone and not having transportation, I do not know if he has official disability and what his insightis in his disease/prognosis #Mediport placement: Mediport was placed Plan: 1. Proceed with D1C3 Cisplatin/Gemcitabine as scheduled today. 2. Dr. Armstrong-Urology will see patient with stoma therapist November 3. Follow up in 1 weeks with labs and cisplatin/gemcitabine. Mr. 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
--- OUTSIDE RECORDS SUMMARY | 2024-08-15 01:37 | XMS_ITS | Encounter Summary ---
[place] [address] Care Team Providers Care Steam And Power Superintendent Name Role Phone Subhash Dowling MD Primary Care Provider [phone] Encounter Details Date Type Department Care Team (Late st Contact Info) Description 11/27/2019 Telephone Hematology [place] [phone] Yamilka Hernandez, RN Social History Tobacco Use [...] Telephone Encounter - Yamilka Hernandez, RN - 11/27/2019 5:40 PM EDT Attempted to meet Gt at his appointment with Dr. Armstrong today, but he did not show. Called IR [email or web address] patient successfully completed mediport placement procedure this AM. Placed call to RTC ([phone]) to assess whether or not cat driver picked up Gt early; patient was scheduled to depart [facility] at 1:30 pm. RTC could not confirm either way due to the fact that cat driver was not responding to their call. Attempted to look for patient at Main and Cancer entrances, but unsuccessful. Placed call to Gt this afternoon to determine why he did not make his appointments with Clement RN. He claims that his cat driver and he were unaware of those appointments, despite the fact that I confirmed those appointments with him on Wednesday upon calling him to ensure he received the heath endar I sent him. Patient still has calendar and stated he was headed to [facility] for an infusion tomorrow. Patient agreeable to rescheduling appointments in [place] with Dr. Armstrong and herbarium curator. documented in this encounter Plan of Treatment Upcoming Encounters Date Type Department Care Team (Late st Contact Info) Description 08/15/2024 11:30 AM EST Office Visit Hematology/Oncology at [address] [phone] Chanelle Kim, [facility] [place] [address] Bee Curry [facility] [place] [address] documented as of this encounter Visit Diagnoses Not on filedocumented in this encounter Care Teams Steam And Power Superintendent Relationship Specialty Start Date End Date Subhash Dowling MD [address] [place] [id number] PCP - General 06/03/10 documented as of this encounter
--- OUTSIDE RECORDS SUMMARY | 2024-08-15 01:37 | XMS_ITS | Encounter Summary ---
[place] [address] Care Team Providers Care Forensic Investigator Name Role Phone Subhash Dowling MD Primary Care Provider [phone] Encounter Details Date Type Department Care Team (Late Contact Info) Description 11/28/2019 Telephone [place] [phone] Ema Lay Social History Tobacco Use Types Packs/Day Years [...] encounter Miscellaneous Notes * Telephone Encounter - Ema Lay - 11/28/2019 5:30 PM EDT Followed up with Mr. Aguilar about nicotine patches. He did not find them that effective. He would like to try Chantix. I am requesting an rx from Dr. Britt and will follow up. documented in this encounter Plan of Treatment Upcoming Encounters Date Type Department Care Team (Late Contact Info) Description 08/15/2024 11:30 AM EST Office Visit Hematology/Oncology at [address] [phone] Chanelle Kim, [facility] [address] Bee Curry [facility] [place] [address] documented as of this encounter Visit Diagnoses Not on filedocumented in this encounter Care Teams Forensic Investigator Relationship Specialty Start Date End Date Subhash Dowling MD [address] [place] [id number] PCP - General 06/03/10 documented as of this encounter
--- OUTSIDE RECORDS SUMMARY | 2024-08-15 01:37 | XMS_ITS | Encounter Summary ---
[place] [address] Care Team Providers Care Gaming Director Name Role Phone Subhash Dowling MD Primary Care Provider [phone] Encounter Details Date Type Department Care Team (Late st Contact Info) Description 01/18/2020 Notes Only Hematology [place] [phone] Zaida Isaac, MINGO Social History Tobacco Use Types Packs/Day Years [...] as of this encounter Progress Notes * Zaida Isaac MSW - 01/18/2020 11:41 AM EDT [employer] And Wellness Director-Social Work Note Office of Care Management Referral received from LALITA Tejeda Nurse Navigator, requesting assistance in arranging transportation for pt for appointments on 01/22 and 01/25/20. Contacted [facility] ([phone] opt. 2) to submit ride requests. Spoke with Ashley and maid supervisor Ekta regarding required release/authorization forms. Submitted Physician Referral Forms to [place] Dept of Health Access and submitted requested Authorization Forms to [facility]. Left voicemail message for pt, Gt, to advise that ride requests have been submitted to [facility]/Medicaid for 01/22 and 01/24. Plan: -CCM-SW remains available for psychosocial assessment, support, and resource coordination as needed. MINGO Hagen Pager: [phone] documented in this encounter Plan of Treatment Upcoming Encounters Date Type Department Care Team (Late st Contact Info) Description 08/15/2024 11:30 AM EST Office Visit Hematology/Oncology at [address] [phone] Chanelle Kim, [facility] [place] [address] Bee Curry, [facility] [place] [address] documented as of this encounter Visit Diagnoses Not on filedocumented in this encounter Care Teams Gaming Director Relationship Specialty Start Date End Date Subhash Dowling MD [address] [place] [id number] PCP - General 06/03/10 documented as of this encounter
--- OUTSIDE RECORDS SUMMARY | 2024-08-15 01:37 | XMS_ITS | Encounter Summary ---
Author Organization [facility] [place] [address] Care Team Providers Care Electronic Sales And Service Technician Name Role Phone Subhash Dowling MD Primary Care Provider [phone] Reason for Visit * Reason Onset Date Comments Other 12/18/2019 transportation Encounter Details Date Type Department Care Team (Late st Contact Info) Description 12/18/2019 Telephone Hematology/Oncology at [address] [phone] Nadia Mueller MSW OFFICE OF CARE MANAGEMENT [...] Telephone Encounter - Nadia Mueller MSW - 12/18/2019 9:36 AM EDT Request received from Kalyani Burgos RN, Nurse Practitioner to set up transportation to for pt for a scan on 12-29-19 arrival at 9:30 am and home at 11:45 am. TC pt to discuss his appointments. TC RCT to discuss and confirmed requests for transportation on 12-22-19 to . Rides are arranged and Physician referral form received and approved. Confirmed trips for pt for next [facility] Lab, provider visit and chemo scheduled for 12-26-19 at [facility] Asked for rides for 12-28-20 trip to . Sent request for Kalyani Burgos, RN, Nurse Practitioner to complete the Physician referral for for [place] Medicaid Transportation for approval for thistrip due to distance. documented in this encounter Plan of Treatment Upcoming Encounters Date Type Department Care Team (Late st Contact Info) Description 08/15/2024 11:30 AM EST Office Visit Hematology/Oncology at [address] [phone] Chanelle Kim, [facility] [place] [address] Bee Curry, [facility] [place] [address] documented as of this encounter Visit Diagnoses Not on filedocumented in this encounter Care Teams Electronic Sales And Service Technician Relationship Specialty Start Date End Date Subhash Dowling MD [address] [place] [id number] PCP - General 06/03/10 documented as of this encounter
--- OUTSIDE RECORDS SUMMARY | 2024-08-15 01:37 | XMS_ITS | Encounter Summary ---
Author Organization [facility] [address] Care Team Providers Care Citizen Participation Specialist Name Role Phone Subhash Dowling MD Primary Care Provider [phone] Encounter Details Date Type Department Care Team (Late st Contact Info) Description 12/08/2019 [place] [phone] Kalyani Burgos RN Social History Tobacco Use [...] of this encounter Progress Notes * Kalyani Burgos RN - 12/08/2019 11:59 PM EDT Met with patient after his visit with Dr Armstrong. I reminded pt on our phone discussions regarding navigation and encouraged to reach out for any assistance/concerns. At that time, pt`s transportationwas also waiting outside at the parking lot. I called his tanker truck driver for pt to be picked up. Pt was acco mpanied outside the hospital entrance and was picked up by his RCT tanker truck driver. documented in this encounter Plan of Treatment Upcoming Encounters Date Type Department Care Team (Late st Contact Info) Description 08/15/2024 11:30 AM EST Office Visit Hematology/Oncology at [address] [phone] Chanelle Kim, [facility] [place] [address] Bee Curry [facility] [place] [address] documented as of this encounter Visit Diagnoses Not on filedocumented in this encounter Care Teams Citizen Participation Specialist Relationship Specialty Start Date End Date Subhash Dowling MD [address] [address] PCP - General 06/03/10 documented as of this encounter
--- OUTSIDE RECORDS SUMMARY | 2024-08-15 01:37 | XMS_ITS | Encounter Summary ---
Author Organization [facility] Address [facility] [place] [address] Care Team Providers Care Broadcast Maintenance Engineer Name Role Phone Subhash Dowling MD Primary Care Provider [phone] Reason for Visit * Reason Comments Bladder Cancer Encounter Details Date Type Department Care Team (Late st Contact Info) Description 01/15/2020 4:20 PM EDT Office [place] [address] Stephan Armstrong MD [facility] [place] [address] Malignant neoplasm of urinary bladder, unspecified site [...] this encounter Patient Instructions * Patient Instructions* Bryan Sullivan RN - 01/15/2020 4:20 PM EDT Pre-Operative Bowel Preparation Instructions (VtmiGbh-Mzqonp-Dyrwizqaflwrj version) Purchase at your pharmacy: Cleansing agents: ?? 238 gram bottle of MiraLAX ?? 8 Dulcolax pills ?? Gatorade (no red or orange please) 1 (one) 64 oz. bottle 3 (three) 500 mL bottles You will receive prescriptions for the following: Antibiotics (Prescriptions) ?? 8 neomycin 500mg pills ?? 8 metronidazole 500mg pills Anti-nausea pills (Prescriptions): ?? Zofran (Ondansetron) pills (3-8mg pills) Day Before Surgery: ?? No solid foods, milk, or milk products allowed. ?? Drink only clear liquids for breakfast, lunch, and dinner. ?? Clear liquids allowed and should be pushed: water, Clear fruit juices (apple, grape, cranberry) Gatorade, Bouillon, Jell-O (no fruit), Flavored ices, Tea and black coffee (it is okay to add sugar) ?? This bowel prep will dehydrate you, so it is important to drink plenty of clear fluids in addition to the MiraLAX mix on the day of the prep. ?? 12pm- please take 1 bottle of Gatorade 500ml ?? 1pm - take 8mg Zofran (ondasetron) anti-nausea pill ?? 2pm - take 4 Dulcolax pills with a clear liquid of your choice ?? 4pm - mix the 238-gram bottle of MiraLAX in 64 oz. of Gatorade ?? Shake the solution until the MiraLAX is dissolved ?? Drink an 8 oz. glass every 10-15 minutes until the solution is gone ?? You should complete drinking the prep within two hours (by 6pm) ?? You will begin to have bowel movements and may have a feeling of fullness which will pass. It is expected that you will have watery bowel movements. ?? 7pm - take 4 more Dulcolax pills, and 4 neomycin pills & 4 metronidazole pills ?? 9pm- take 8mg Zofran (ondansetron) anti-nausea pill ?? 11pm - take another 4 neomycin 500mg pills and 4 metronidazole 500mg pills, and 1 bottle of Gatorade It is important that there are 4 hours between doses of antibiotics Day of Surgery: ?? At 5:30am ?? 1 more bottle of Gatorade ?? Another 8 mg of zofran (ondansetron) anti-nausea pill ?? Do not eat or drink anything else except your medications with a sip of water ?? Check in at Same Day Surgery (the best place to park for this is the parking garage) Medications: ?? Do Not Take any medications containing aspirin (Dolores-Lawton, Anacin, Bufferin, baby aspirin, Dristan, etc.) for 10 days prior to your surgery. Unless otherwise directed by your surgeon. Please call office with questions- [phone] ?? Do Not Take medications for arthritis such as Motrin, Advil, Clinoril, Nuprin, etc. for 10 days prior to your surgery. Unless otherwise directed by your surgeon. Please call office with [phone] ?? You may take Tylenol. ?? Continue to take any medications prescribed for high blood pressure or heart disease. ?? IF YOU TAKE COUMADIN or PLAVIX, CALL THIS OFFICE FOR INSTRUCTIONS If you have questions about your medications or the prep, please call before 5:00PM.After 5:00PM call and ask the card punching machine operator to page the Urology Resident information systems architect. You will get a call between 3:00pm and 6:00 pm the weekday before your surgery to confirm the time of your admission and to go over any further instructions Chant[place]- Urology [place]- Urology Nurse Lou- Urology Bus Boy documented in this encounter Progress Notes * Stephan Armstrong MD - 01/15/2020 4:20 PM EDT Images from the original note [...] mobility Department of Pathology & Laboratory Medicine [place] [address] , (Fax) [phone] Name: WALLY AGUILAR Provider: OPAL LUJAN Client: [facility] /Age/Sex: 1950 69 years Male Location: [facility] Report ID: [id number] The signing pathologist has (i) examined the relevant preparation(s) for the specimen(s); and (ii) rendered or confirmed the diagnosis(es). Pathology Report Collected: 08/29/2019 09:42 Received: 08/29/2019 09:42 Surgical Pathology DIAGNOSIS CONSULTATION CASE Outside slide(s) labeled [id number], collection date 07/31/2019. Urinary bladder, site not specified, mass, TURBT: - High grade urothelial carcinoma, invasive into muscularis propria and asuncion- muscular bundle adipose tissue. - Focal urothelial carcinoma in situ. Electronically signed by: Kalani Cabrera MD Verified: 08/31/2019 Pathologist Performed at: [place] [place], [place] DISCUSSION Per outside report, the tumor cells are positive for GATA3 and negative for NKX3.1 and Pax8 on immunostains(the immunostaining slides were not submitted for review). 09/2019 decision for neoadjuvant cheotherapy followed by cystectomy 12/26/2019 Last day if C4 of [place]/Cisplat H etolerated the chemotherapy reasonably well. Currently he is [...] as well. He lives by himself. 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 Lives alone. He has 2 children but he is not in touch with them. He has a parquet. Family History: No bladder cancer Allergies: Allergies Allergen Reactions ??? Wellbutrin [Bupropion Hcl] Other (See Comments) Unknown on pt's chart from outside facility Medications: Your Medications Accurate as of January 15, 2020 3:55 PM. If you have any questions, ask [...] by mouth daily. 20 mg Refills: 0 traMADoL 50 mg Tab Commonly known as: [...] Systems: Constitutional: Limited by claudication 50-100yards. PE: No adenoapthy HEENT normal CVS HS I &II normal nil added Chest clear to P&A Abdomen Benign, no masses, no organomegaly External genitalia normal Pathology: 07/31/2019 Urinary bladder, site not specified, mass, TURBT: - High grade urothelial carcinoma, invasive into muscularis propria and asuncion-muscular ??bundle adipose tissue. - Focal urothelial carcinoma in situ Labs 10/04 Hb 15.4, Plt 194, Cr 1.17, Alk 172 01/15/2020 Hb 12.1, Plt 210, Cr 0.98, eGFR 79, Alk 164, LFT's normal Imagin02/28/2019 CT abdomen pelvis: Conclusion: Obstructing mass [...] regions. 3. No distant sites of metastasis. 01/15/2020 IMPRESSION 1. Marked interval decrease in size [...] clinical significance. Please correlate with clinical exam. Impression: T3N1(?N3M1a) High Grade Urothelial cancer sp ddMVAC. ? Progression in the retroperitoneum. PVD Moderate Comorbidity Challenging Social circumstances Plan I am not sure of the significance of the periaortic hot lymphadenopthy. It would be unusual to haveprogression in the para aortic nodes in the face of a response in the pelvis. I wonder are the nodes reactive to the ureteral obstruction rather than metastatic. If the nodes are metastatic UCC then he should be switched to another form of chemotherapy or immunotherapy and should NOT have a cystectomy. If the nodes are negative it is reasonable to proceed with a cystectomy. Thus I will arrange a biopsy over the next 1-2 weeks.. I discussed the planned procedure including extended [...] 1 hour counselling patient and coordinating care. * Bryan Sullivan RN - 01/15/2020 4:20 PM EDT Spoke with Wally and educated him about the Pre-op Checklist for cystectomy. Discusses bowel prep (order placed) Heparin, Surgical skin prep A email/in-basket was sent to Kalyani Burgos to follow-up with patient navigation assistances. Patient needed to be at main Exit by 5pm for a ride was extremely agitated and anxious and would not wait for Vasc[employer]r access team to de accessed mediport. This RN de-accessed port without difficulty, documented in this encounter Plan of Treatment Upcoming Encounters Date Type Department Care Team (Late st Contact Info) Description 08/15/2024 11:30 AM EST Office Visit Hematology/Oncology at [address] [phone] Chanelle Kim, [facility] [place] [address] Bee Curry [facility] [place] [address] documented as of this encounter Visit Diagnoses Diagnosis Malignant neoplasm of urinary bladder, unspecified site- Primary documented in this encounter Care Teams Broadcast Maintenance Engineer Relationship Specialty Start Date End Date Subhash Dowling MD [address] [place] [id number] PCP - General 06/03/10 documented as of this encounter
--- OUTSIDE RECORDS SUMMARY | 2024-08-15 01:37 | XMS_ITS | Encounter Summary ---
Author Organization [facility] [place] [address] Care Team Providers Care Flight Test Engineer Name Role Phone Subhash Dowling MD Primary Care Provider [phone] Reason for Visit * Reason Onset Date Comments Other 12/14/2019 care coordinatio n Encounter Details Date Type Department Care Team (Late st Contact Info) Description 12/14/2019 Telephone Hematology/Oncology at [address] [address] Nadia Mueller MSW OFFICE OF [...] Telephone Encounter - Nadia Mueller MSW - 12/14/2019 2:56 PM EDT MILENA Farley, RN, Nurse Navigator re pt's appoint at on 12-22-19. Call then from Sonia ([phone]) in pre admission and she reports she talked with pt re this appointment. He asked that she call [facility] to set up ride. Sonia reports she called [facility] and asked for rides with arrival at for 12:15 pm and trip home for 3:30 pm. Sonia reports they received the out of area physician referral form and once complete she will fax it to [employer]. documented in this encounter Plan of Treatment Upcoming Encounters Date Type Department Care Team (Late st Contact Info) Description 08/15/2024 11:30 AM EST Office Visit Hematology/Oncology at [address] [phone] Chanelle Kim, [facility] [place] [address] Bee Curry, [facility] [place] [address] documented as of this encounter Visit Diagnoses Not on filedocumented in this encounter Care Teams Flight Test Engineer Relationship Specialty Start Date End Date Subhash Dowling MD [address] [place] [id number] PCP - General 06/03/10 documented as of this encounter
--- OUTSIDE RECORDS SUMMARY | 2024-08-15 01:37 | XMS_ITS | Encounter Summary ---
Author Organization [facility] Address [facility] [place] [address] Care Team Providers Care Wood Shingle Roofer Name Role Phone Subhash Dowling MD Primary Care Provider [phone] Encounter Details Date Type Department Care Team (Latest Contact Info) Description 01/15/2020 1:24 PM EDT - 01/15/2020 11:59 PM EDT Hospital Encounter XRay at [address] [place] [address] Odalys Arndt MD [facility] [place] [address] Preoperative cardiovascular examination; Essential hypertension; Chronic obstructive pulmonary disease, unspecified COPD type Discharge Disposition: Home Social History Tobacco [...] by mouth 4 times daily. 03/06/2020 06/24/2021 metroNIDAZOLE (FlagyL) 500 mg Tablet Take 4 tablets by mouth 2 times daily for 2 doses. Take 4 tablets at 7PM and 4 Tablets at 11PM the night before surgery 8 tablet 01/15/2020 01/16/2020 neomycin (Mycifradin) 500 mg Tablet Take 4 tablets by mouth 2 times daily for 2 doses. Take 4 tablets at 7PM and 4 Tablets at 11PM the night before surgery 8 tablet 01/15/2020 01/16/2020 ondansetron (Zofran) 8 mg Tablet Take 1 tablet by mouth every 8 hours for 3 doses. Take 1 tablet at 1PM the afternoon before surgery then every 8 hours 3 tablet 01/15/2020 01/16/2020 varenicline (CHANTIX) 0.5 mg (11)- 1 mg [...] AM EST Office Visit Hematology/Oncology at [address] [phone] Chanelle Kim, [facility] [place] [address] Bee Curry [facility] [place] [address] documented as of this encounter Procedures Procedure Name Priority Date/Time Associated Diagnosis Comments XR CHEST PA AND LATERAL Routine 01/15/2020 1:39 PM EDT Preoperative cardiovascular examination Essential hypertension Chronic obstructive pulmonary disease, unspecified COPD type documented in this encounter Results * XR [...] this report, please contact the number below. Odalys Arndt MD IMG DX ORDERABLES documented in this encounter Visit Diagnoses Diagnosis Preoperative cardiovascular examination Pre-operative cardiovascular examination Essential hypertension Unspecified essential hypertension Chronic obstructive pulmonary disease, unspecified COPD type documented in this encounter Care Teams Wood Shingle Roofer Relationship Specialty Start Date End Date Subhash Dowling MD [address] [place] [id number] PCP - General 06/03/10 documented as of this encounter
--- OUTSIDE RECORDS SUMMARY | 2024-08-15 01:37 | XMS_ITS | Encounter Summary ---
Author Organization [facility] Address [facility] [place] [address] Care Team Providers Care Stuntman Name Role Phone Subhash Dowling MD Primary Care Provider [phone] Encounter Details Date Type Department Care Team (Late st Contact Info) Description 12/22/2019 11:59 PM EDT [place]est[place] [phone] Odalys Arndt MD [facility] DR [place] [address] Fam Casiano MD Anesthesia Record Procedure Summary Procedure Name Responsible Anesthesiologist Anesthesia Start Time Anesthesia Stop Time AMB REFERRAL TO ANETHESIA PRE-OPERATIVE EVALUATION Events No events on file. Meds * [...] of this encounter OR Notes * Anesthesia Preprocedure Evaluation - Odalys Arndt MD - 01/15/2020 10:47 AM EDT Pre-Anesthesia Evaluation for: Gt K Jeff a 69 y.o. male. Patient Active Problem List Diagnosis ??? Bladder cancer ??? HTN (hypertension) ??? PVD (peripheral vascular disease) Hx aortoiliac endarterectomy. ??? Alcohol abuse ??? Smokes 2 packs of cigarettes per day ??? HLD (hyperlipidemia) ??? COPD, moderate ??? Weight loss, abnormal ??? Limited literacy ??? Port-A-Cath in place ??? Ostomy nurse consultation ??? 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 Malignant neoplasm of overlapping sites of bladder No past medical history on file. Past Surgical History: Procedure Laterality Date ??? IR MEDIPORT PLACEMENT/EXCHANGE 11/27/2019 IR Mediport Placement 11/27/2019 Jason Lujan PA [facility] INTERVENTIONL RAD Social History Tobacco Use ??? Smoking status: Current Every Day Smoker Packs/day: 2.00 Years: 50.00 Pack years: 100.00 ??? Smokeless tobacco: Never Used Substance Use Topics ??? Alcohol use: Yes Comment: 2 Social History Substance and Sexual Activity Drug Use Not on file Allergies Allergen Reactions ??? Wellbutrin [Bupropion Hcl] Other (See Comments) Unknown on pt's chart from outside facility Medications: MAR and/or home medications have been reviewed. Physical Exam: There were no vitals filed for this visit. There is no height or weight on file to calculate BMI. Airway Assessment: Mallampati: I Cardiovascular Assessment: Pulmonary Assessment: Dental Assessment: (+) upper dentures and lower dentures Misc Assessment: IV access: Central line Anesthesia Plan [facility] PAT Clinic Note: Date and Time of Entry: 01/15/2020 12:23 PM Entered By: Odalys Arndt MD Reason for Evaluation: Surgeon Request Hx of Anesthesia Problem: Surgeon requested to review records and exam patient to determine if medically optimized PAT Visit Type: Interviewed in person Findings, Assessment and Plan: Mr. Aguilar is a pleasant 69 year old gentleman who presents to our preoperative clinic to determine if he is medically optimized. Unfortunately, he does not know much about his medical history and has limited literacy. We discussed at length his current health status and he denies having any serious medical issues. 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 He denies any cardiopulmonary issues at this time. He is not sure if he needs surgery and would like to discuss his situation with his surgeon prior to proceeding. Problem list: ANESTHESIA: He admits to delayed emergence from anesthesia but state he woke up during his hip surgery. He states his last surgery was in 1990 but he had [place] medip[place] under [place] [facility] [place]. He denies any issues from the sedation. COPD/Tobacco abuse: He has a PMH significant for a 110 pack year history and he continues to smoke. He has decreased his tobacco use but still smokes 1/2 ppd. He takes his inhaler (combivent) 2-3 times per day and states it does improve his breathing. His activity is somewhat limited by his breathing but states he cancontinue normal activities (house keeping/cleaning/walks 2 flights of stairs) without any problems.He was encouraged to continue to use his inhaler on a routine basis several days prior to his surgery. He also received an incentive spirometer and was encouraged to use it several times per day to help prepare him for his upcoming surgery. CARDIOVASCULAR disease: He denies any chest pain or history of ND. PVD is noted on his problem list but he is uanble to provide any information at this time. Echo performed this year is below: Study Date: 03/21/2019 Pt. Type: Outpatient Tape: ?? Referring: [facility] Echo Lab Ref[place] Referring: [facility] Reading: Jesse Ibarra ([id number]) Mortgage Processing Clerk: JUAN ?? Diagnosis: *Chest pain, unspecified (R07.9) ?? Rhythm: Sinus BP: 127/82 ?? SUMMARY: ?? 1. Left ventricular chamber size, wall thickness, global and segmental systolic function are within normal limits. Ejection fraction is estimated to be 65%. 2. Right ventricular chamber size, wall thickness, and systolic function are within normal limits. 3. The left atrium is normal in size. 4. No significant valvular abnormalities. 5. Other details as noted below. 6. No prior study available for comparison. A 12-lead EKG and Chest xray was ordered today as baseline (unclear if we will be able to obtain records). We discussed the risks/benefits of anesthesia and the fact he is at risk for perioperative complications. He was encouraged to continue his combivent and pulmonary incentive spirometry at this time. We the possibility of post operative intubation should he have an exacerbation of his COPD. We also d iscussed the possibility of arterial line placement and epidural for post op pain control. Questions answered and consent obtained. ?? documented in this encounter Plan of Treatment Upcoming Encounters Date Type Department Care Team (Late st Contact Info) Description 08/15/2024 11:30 AM EST Office Visit Hematology/Oncology at [address] [phone] Chanelle Kim, [facility] [place] [address] Bee Curry, [facility] [place] [address] documented as of this encounter Visit Diagnoses Not on filedocumented in this encounter Care Teams Stuntman Relationship Specialty Start Date End Date Subhash Dowling MD [address] [place] [id number] PCP - General 06/03/10 documented as of this encounter
--- OUTSIDE RECORDS SUMMARY | 2024-08-15 01:37 | XMS_ITS | Encounter Summary ---
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 Aries Quiñones MD [facility] DR [place] [address] [facility] Hem Onc Office [address] [place] [phone] Referral ID Status Reason Start Date Expiration Date Visits Re quested Visits Authorized [id number] Closed 10/06/2019 10/05/2020 1 1 Encounter Details Date Type Department Care Team (Late st Contact Info) Description 12/05/2019 10:00 AM EDT Infusion Hematology Oncology at [address] [phone] 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 Aguilar offers no complaints. OBJECTIVE IV Access: Mediport accessed at OSH for labs; Brisk blood return noted; Port flushed with 20ml of NS and 500 units of heparin and de-accessed after infusion completed. LAB DATA: WBC 10.96, HGB 12.8, HCT 37.8, PLT 280, ANC 7.85, BUN16, Cr 1.06, Mg 2.2, K 4.4 Pre administration: Chemotherapy orders independently verified for drug name, route, and dosage per patient's height, weight and BSA by ERON GUARDADO, KEYA and pharmacist on-site. REACTIONS (DESCRIPTION, TIME, INTERVENTION AND EFFECTIVENESS) none ASSESSMENT Mr. Aguilar was awake, alert and he tolerated treatment well. PLAN Return to clinic next week. Patient was reminded to call in the interim with any questions/concerns. 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 Administer prior to chemotherapy., Routine Given 12/05/2019 10:33 AM EDT 130 mg CISplatin (PLATINOL) 58 mg in sodium chloride 0.9% 308 mL chemo infusion 58 mg (rounded from 58.45 mg = 35 mg/m2/dose ? 1.67 m2 Treatment Plan BSA from Recorded weight), Intravenous, ONCE, 1 dose, On Wed12/05/19 at 1130, Administer over 60 Minutes New Bag 12/05/2019 12:49 PM EDT 58 mg 308 mL/hr dexamethasone (Decadron) tablet 10 mg 10 mg, Oral, ONCE, 1 dose, On Wed12/05/19 at 1030, Administer prior to chemotherapy, Routine Given 12/05/2019 10:33 AM EDT 10 mg GEMcitabine 1,600 mg in sodium chloride 0.9% 292.1053 mL chemo infusion 1,600 mg, Intravenous, ONCE, 1 dose, On Wed12/05/19 at 1130, Administer over 30 Minutes, Warning Vesicant/Irritant Medication , Dose Ordered = 1670 mg (1000 mg/m2). Pharmacist rounded dose per procedure. New Bag 12/05/2019 12:02 PM EDT 1,600 mg 584.2 mL/hr heparin, porcine 100 unit/mL flush 500 Units 500 Units, Intravenous, ONCE PRN, Starting on Wed12/05/19 at 1012, Until Wed12/05/19 at 1726, Line Care, Refer to Intravenous (IV) Procedure: Accessing Implanted Vascular Access Devices (974) procedure and/or Intravenous (IV) Job Aid: Adult Flushing & Catheter Care (6047) job aid for additional information regarding guidelines and administration., Routine Given 12/05/2019 2:49 PM EDT 500 Units magnesium sulfate 1g in dextrose 5% 100mL 1 g, Intravenous, EVERY HOUR, 2 doses, First dose on Wed12/05/19 at 1230, Last dose on Wed12/05/19 at 1300, Administer over 60 Minutes, Total dose is 2 grams. Post - CISplatin New Bag 12/05/2019 1:41 PM EDT 1 g 100 mL/hr New Bag 12/05/2019 12:44 PM EDT 1 g 100 mL/hr palonosetron (ALOXI) injection 0.25 mg 0.25 mg, Intravenous, ONCE, 1 dose, On Wed12/05/19 at 1030, Administer over 30 seconds. Administer prior to chemotherapy, Routine Given 12/05/2019 10:33 AM EDT 0.25 mg sodium chloride 0.9 % (flush) flush 5-20 mL 5-20 mL, Intravenous, EVERY 1 MIN PRN, Starting on Wed12/05/19 at 1012, Until Wed12/05/19 at 1726, Line Care, Flush pertains to all indwelling lines. Flush per protocol found in the job aid using the link provided on this medication record. Refer to Intravenous (IV) Job Aid: Adult Flushing & Catheter Care (3768) job aid for additional information regarding guidelines and administration., Routine Given 12/05/2019 2:49 PM EDT 20 mLs sodium chloride 0.9% infusion 1,000 mL, at 500 mL/hr, Intravenous, CONTINUOUS, Starting on Wed12/05/19 at 1030, Until Wed12/05/19 at 1229, Pre CISplatin New Bag 12/05/2019 10:20 AM EDT 1,000 mLs 500 mL/hr sodium chloride 0.9% with potassium chloride 20 mEq infusion 1,000 mL, at 500 mL/hr, Intravenous, CONTINUOUS, Starting on Wed12/05/19 at 1230, Until Wed12/05/19 at 1429, Post - CISplatin New Bag 12/05/2019 12:42 PM EDT 1,000 mLs 500 mL/hr documented in this encounter Care Teams River Driver Relationship Specialty Start Date End Date Subhash Dowling MD [address] [place] [id number] PCP - General 06/03/10 documented as of this encounter
--- OUTSIDE RECORDS SUMMARY | 2024-08-15 01:37 | XMS_ITS | Encounter Summary ---
Author Organization [facility] [place] [address] Care Team Providers Care Bulk Mail Clerk Name Role Phone Subhash Dowling MD Primary Care Provider [phone] Reason for Visit * Reason Onset Date Comments Other 01/02/2020 referral form Encounter Details Date Type Department Care Team ([facility] Contact Info) Description 01/02/2020 Telephone Hematology/Oncology at [address] [phone] Nadia Mueller MSW OFFICE OF CARE MANAGEMENT Other (referral form) Social History Tobacco Use Types Packs/Day Years [...] Telephone Encounter - Nadia Mueller MSW - 01/02/2020 6:47 AM EDT Completed and faxed Physician Referral form for trip to [facility] on 01-15-20 to Medicaid Medical Transportation. [facility] contacted and ride requested. documented in this encounter Plan of Treatment Upcoming Encounters Date Type Department Care Team ([facility] Contact Info) Description 08/15/2024 11:30 AM EST Office Visit Hematology/Oncology at [address] [phone] Chanelle Kim, [facility] [place] [address] Bee Curry [facility] [place] [address] documented as of this encounter Visit Diagnoses Not on filedocumented in this encounter Care Teams Bulk Mail Clerk Relationship Specialty Start Date End Date Subhash Dowling MD [address] [place] [id number] PCP - General 06/03/10 documented as of this encounter
--- OUTSIDE RECORDS SUMMARY | 2024-08-15 01:37 | XMS_ITS | Encounter Summary ---
Author Organization [facility] [place] [address] Care Team Providers Care Translation Director Name Role Phone Subhash Dowling MD Primary Care Provider [phone] Reason for Visit * Reason Onset Date Comments Other 12/20/2019 transportation Encounter Details Date Type Department Care Team (Late st Contact Info) Description 12/20/2019 Telephone Hematology/Oncology at [address] [phone] Nadia Mueller MSW OFFICE OF CARE MANAGEMENT [...] Telephone Encounter - Nadia Mueller MSW - 12/20/2019 11:33 AM EDT Completed physician refferal for for Medicaid transportation for approval for trip to on 12-29-19. Marcy Castillo, Clinical Interior faxed the form in to their office for approval. documented in this encounter Plan of Treatment Upcoming Encounters Date Type Department Care Team (Late st Contact Info) Description 08/15/2024 11:30 AM EST Office Visit Hematology/Oncology at [address] [phone] Chanelle Kim, [facility] [place] [address] Bee Curry, [facility] [place] [address] documented as of this encounter Visit Diagnoses Not on filedocumented in this encounter Care Teams Translation Director Relationship Specialty Start Date End Date Subhash Dowling MD [address] [place] [id number] PCP - General 06/03/10 documented as of this encounter
--- OUTSIDE RECORDS SUMMARY | 2024-08-15 01:37 | XMS_ITS | Encounter Summary ---
Author Organization [facility] Address 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 Aries Quiñones MD [facility] HEMATOLOGY [place] [address] [facility] Hem Onc Office [address] [place] [phone] Referral ID Status Reason Start Date Expiration Date Visits Re quested Visits Authorized [id number] Closed 10/06/2019 10/05/2020 1 1 Encounter Details Date Type Department Care Team (Late st Contact Info) Description 12/26/2019 10:00 AM EDT Infusion Hematology Oncology at [address] [phone] Bladder cancer metastasized to pelvic [...] Progress Notes * Eron Guardado RN - 12/26/2019 10:00 AM EDT INFUSION THERAPY ADMINISTRATION NOTES DIAGNOSIS: Bladder CA CYCLE #: 4 Day 8 REASON FOR VISIT: Gemzar/Cisplatin Chemotherapy SUBJECTIVE Mr. Aguilar is here for C4D8 Gemzar/Cisplatin chemotherapy. He offers no complaints. OBJECTIVE LAB DATA: Labs drawn today at [facility] reviewed and found adequate for treatment Pre administration: Chemotherapy orders independently verified for drug name, route, and dosage per patient's height, weight and BSA by ERON GUARDADO, KEYA and pharmacist on-site. REACTIONS (DESCRIPTION, TIME, INTERVENTION AND EFFECTIVENESS) none ASSESSMENT Mr. Aguilar was awake, alert and he tolerated treatment well. Magnesioum and NS with 20mEq or K+ stopped a little early for RCT PLAN Return to clinic as schedualed. Patient was reminded to call in the interim with any questions/concerns. documented in this encounter Plan of Treatment Upcoming Encounters Date Type Department Care Team (Late st Contact Info) Description 08/15/2024 11:30 AM EST Office Visit Hematology/Oncology at [address] [phone] Chanelle Kim [facility] [place] [address] Bee Curry [facility] [place] [address] documented as of this encounter Visit Diagnoses [...] over 2 Minutes, ONCE, 1 dose, On 6/16/20 at 1045, Alternative administration of IV push over 2 minutes is a recommendation from the senior php software developer. Administer prior to chemotherapy., Routine Given 12/26/2019 10:50 AM EDT 130 mg CISplatin (PLATINOL) 58 mg in sodium chloride 0.9% 308 mL chemo infusion 58 mg (rounded from 58.45 mg = 35 mg/m2/dose ? 1.67 m2 Treatment Plan BSA from Recorded weight), Intravenous, ONCE, 1 dose, On Wed12/26/19 at 1145, Administer over 60 Minutes New Bag 12/26/2019 12:35 PM EDT 58 mg 308 mL/hr dexamethasone (Decadron) tablet 10 mg 10 mg, Oral, ONCE, 1 dose, On Wed12/26/19 at 1045, Administer prior to chemotherapy, Routine Given 12/26/2019 10:49 AM EDT 10 mg GEMcitabine 1,600 mg in sodium chloride 0.9% 292.1053 mL chemo infusion 1,600 mg, Intravenous, ONCE, 1 dose, On Wed12/26/19 at 1145, Administer over 30 Minutes, Warning Vesicant/Irritant Medication , Dose Ordered = 1670 mg (1000 mg/m2). Pharmacist rounded dose per procedure. New Bag 12/26/2019 11:44 AM EDT 1,600 mg 584.2 mL/hr heparin, porcine 100 unit/mL flush 500 Units 500 Units, Intravenous, ONCE PRN, Starting on Wed12/26/19 at 1019, Until Wed12/26/19 at 1711, Line Care, Refer to Intravenous (IV) Procedure: Accessing Implanted Vascular Access Devices (614) procedure and/or Intravenous (IV) Job Aid: Adult Flushing & Catheter Care (2683) job aid for additional information regarding guidelines and administration., Routine Given 12/26/2019 2:22 PM EDT 500 Units magnesium sulfate 1g in dextrose 5% 100mL 1 g, Intravenous, EVERY HOUR, 2 doses, First dose on Wed12/26/19 at 1330, Last dose on Wed12/26/19 at 1400, Administer over 60 Minutes, Total dose is 2 grams. Post - CISplatin New Bag 12/26/2019 1:35 PM EDT 1 g 100 mL/hr New Bag 12/26/2019 12:39 PM EDT 1 g 100 mL/hr palonosetron (ALOXI) injection 0.25 mg 0.25 mg, Intravenous, ONCE, 1 dose, On Wed12/26/19 at 1045, Administer over 30 seconds. Administer prior to chemotherapy, Routine Given 12/26/2019 10:50 AM EDT 0.25 mg pegfilgrastim (NEULASTA ONPRO) injection kit 6 mg, Subcutaneous, ONCE, 1 dose, On Wed12/26/19 at 1045, Allow the prefilled syringe co-packaged with the on-body injector to reach room temperature at least 30 minutes prior to administration., Routine, This agent is restricted to outpatient use. Is this drug being given as an outpatient? Yes Given 12/26/2019 2:11 PM EDT 6 mg sodium chloride 0.9 % (flush) flush 5-20 mL 5-20 mL, Intravenous, EVERY 1 MIN PRN, Starting on Wed12/26/19 at 1019, Until Wed12/26/19 at 1711, Line Care, Flush pertains to all indwelling lines. Flush per protocol found in the job aid using the link provided on this medication record. Refer to Intravenous (IV) Job Aid: Adult Flushing & Catheter Care (0037) job aid for additional information regarding guidelines and administration., Routine Given 12/26/2019 2:22 PM EDT 20 mLs sodium chloride 0.9% infusion 1,000 mL, at 500 mL/hr, Intravenous, CONTINUOUS, Starting on Wed12/26/19 at 1045, Until Wed12/26/19 at 1244, Pre CISplatin New Bag 12/26/2019 10:18 AM EDT 1,000 mLs 500 mL/hr sodium chloride 0.9% with potassium chloride 20 mEq infusion 1,000 mL, at 500 mL/hr, Intravenous, CONTINUOUS, Starting on Wed12/26/19 at 1330, Until Wed12/26/19 at 1529, Post - CISplatin New Bag 12/26/2019 12:31 PM EDT 1,000 mLs 500 mL/hr documented in this encounter Care Teams Airport Ramp Supervisor Relationship Specialty Start Date End Date Subhash Dowling MD [address] [place] [id number] PCP - General 06/03/10 documented as of this encounter
--- OUTSIDE RECORDS SUMMARY | 2024-08-15 01:37 | XMS_ITS | Encounter Summary ---
Author Organization [facility] [place] [address] Care Team Providers Care Blasting Worker Name Role Phone Subhash Dowling MD Primary Care Provider [phone] Reason for Visit * Diagnostic Test (Routine) - Closed Specialty Diagnoses / Procedures Referred By Contelaina clark Referred To Contact Radiology Diagnoses Malignant neoplasm of urinary bladder, unspecified site Procedures NM PET CT Skull Base to Mid-thigh Stephan Armstrong MD [facility] [place] [address] [place] [phone] Referral ID Status Reason Start Date Expiration Date V isits Requested Visits Authorized [id number] Closed Specialty Service Requested 12/14/2019 06/14/2021 1 1 Encounter Details Date Type Department Care Team (Latest Contact Info) Description 01/15/2020 8:47 AM EDT Hospital Encounter [place] [phone] Stephan Armstrong MD [facility] [place] [address] Discharge Disposition: Home Social History [...] AM EST Office Visit Hematology/Oncology at [address] [phone] Chanelle Kim, [facility] [place] [address] Bee Curry, [facility] [place] [address] documented as of this encounter Procedures Procedure Name Priority Date/Time Associated Diagnosis Comments NM PET CT SKULL BASE TO MID-THIGH ([facility]) Routine 01/15/2020 10:58 AM EDT Malignant neoplasm of urinary bladder, unspecified site documented in this encounter Visit Diagnoses Not on filedocumented in this encounter Administered Medications Inactive Administered Medications - up to 3 most recent administrations Medication Order MAR Action Action Date Dose Rate Site fludeoxyglucose (F-18) FDG injection 0-20 mCi 0-20 mCi, Intravenous, ONCE PRN, 1 dose, Starting on Wed01/15/20 at 1002, Until Wed01/15/20 at 1002, Per Protocol, Radiology Contrast, Routine Given 01/15/2020 10:02 AM EDT 8.6 mCi Implanted Port documented in this encounter Care Teams Blasting Worker Relationship Specialty Start Date End Date Subhash Dowling MD [address] [place] [phone] PCP - General 06/03/10 documented as of this encounter
--- OUTSIDE RECORDS SUMMARY | 2024-08-15 01:37 | XMS_ITS | Encounter Summary ---
Author Organization [facility] [place] [address] Care Team Providers Care Soil Fertility Extension Specialist Name Role Phone Subhash Dowling MD Primary Care Provider [phone] Reason for Visit * Reason Onset Date Comments Other 01/24/2020 coordination of care Encounter Details Date Type Department Care Team (Late st Contact Info) Description 01/24/2020 Telephone Hematology/Oncology at [address] [phone] Nadia Mueller MSW OFFICE OF CARE MANAGEMENT Other (coordination of care) Social History Tobacco Use Types Packs/Day Years [...] Telephone Encounter - Nadia Mueller MSW - 01/24/2020 2:21 PM EDT TC from Kalyani Burgos RN, Nurse Navigator requesting assistance with scheduling rides for pt on 01-31-20 for a biopsy and 02-06-20 for surgery with an inpatient stay. Ms. Aubrey RN indicated pt did not show up for his appointment at yesterday and she has not been able to reach him. He has an appointment tomorrow at . TC pt with no answer. Left a voice message to return my call. TC friend/roommate/emergency contact Subhash. Subhash report's pt told him he was not aware of his appointment at yesterday. [facility] did show up as arranged but pt did not know he had the appointment. Verified pt does know of his appointment for tomorrow. Transportation for this appointment was set through [facility] by MINGO Sal. Subhash indicated he feels pt is having a hard time understanding what is going on. Subhash is suggesting all information should be sent to pt in writing and Subhash is willing to read it to pt. Pt has a hard time reading and writing. Asked Subhash if pt aware of his upcoming surgery and he indicated ihe is aware that pt had a conversation with his PCP yesterday re this. Subhash indicated pt was told they are going to take his bladder out and he would be in the hospital for 3 days. Unclear if pt understands the larger picture ofhis health situation and management of his care needs going forward. Informed Subhash MINGO will set up transportation through [facility] for pt on 01-31-20 for his biopsy at . OFFENDER JOB RETENTION SPECIALIST will also set up transportation to on 02-06-20 for surgery. Subhash is not able to accompany ptfor either of these appointments as he works. TC back to Ms. Aubrey RN re this conversation. OFFENDER JOB RETENTION SPECIALIST suggested pt be sent some patient information about what to expect at the biopsy. Also suggested pt be sent some patient information re the typeof surgery he will have on the . Informed her of Garcia willingness to read it over with pt. OFFENDER JOB RETENTION SPECIALIST suggested all appointments should be sent to pt in writing also so Subhash can put them on his calendar. OFFENDER JOB RETENTION SPECIALIST shared concerns about pt's level of understanding of the big picture. OFFENDER JOB RETENTION SPECIALIST will set up ride for 01-31-20 with arrival at at noon and fiber picker for home at 3:[address] scan social economist. OFFENDER JOB RETENTION SPECIALIST will set up ride for 02-06-20 with arrival at at 7 am per Ms. Aubrey RN for surgery and an inpatient stay. Will continue to follow for support and resources. documented in this encounter Plan of Treatment Upcoming Encounters Date Type Department Care Team (Late st Contact Info) Description 08/15/2024 11:30 AM EST Office Visit Hematology/Oncology at [address] [phone] Chanelle Kim, [facility] [place] [address] Bee Curry [facility] [place] [address] documented as of this encounter Visit Diagnoses Not on filedocumented in this encounter Care Teams Soil Fertility Extension Specialist Relationship Specialty Start Date End Date Subhash Dowling MD [address] [place] [phone] PCP - General 06/03/10 documented as of this encounter
--- OUTSIDE RECORDS SUMMARY | 2024-08-15 01:37 | XMS_ITS | Encounter Summary ---
[place] [address] Care Team Providers Care Ostomy Care Nurse Name Role Phone Subhash Dowling MD Primary Care Provider [phone] Reason for Visit * Reason Onset Date Comments Referral 12/11/2019 Encounter Details Date Type Department Care Team (Late st Contact Info) Description 12/11/2019 Telephone [place] [phone] Elizabeth Cm Referral Social History Tobacco Use Types Packs/Day Years [...] encounter Miscellaneous Notes * Telephone Encounter - Janeth Bridges RN - 12/14/2019 11:58 AM EDT Care Coordination Note Phone call to patient and his friend, Subhash. Patient needs Medicaid transportation by [facility], to visits at [facility] 12/22/19. Doctor's office needs to complete form for this ride. Phoned [facility]. [place] Medicaid requires form for all rides over 60 miles. Form needs to be faxed to Medicaid who will approve or deny request and contact [facility]. Requested that form be faxed to this Folder Seamer. Completed form and left for certified legal secretary specialist to fax. Contacted patient and informed him of above. * Telephone Encounter - Elizabeth Cm - 12/11/2019 8:40 AM EDT Message: Subhash called for Gt, and stated a physicians referral has to be sent to [facility] for a ride, so Gt is able to get to his appointment on 12/15/2019. Subhash was unsure the fax number to [facility], but he did give the phone number. [phone] Ask caller their first and last name and relationship to the patient: Subhash, Emergency contact Phone: Best time to call back: any Ok to leave a message: yes Ok to send my- message: no Offered Appointment: n MA/Nurse/Delivery Helper contacted via: Message: y Call: n Pager: n documented in this encounter Plan of Treatment Upcoming Encounters Date Type Department Care Team (Late st Contact Info) Description 08/15/2024 11:30 AM EST Office Visit Hematology/Oncology at [address] [phone] Chanelle Kim [facility] [place] [address] Bee Curry [facility] [place] [address] documented as of this encounter Visit Diagnoses Not on filedocumented in this encounter Care Teams Ostomy Care Nurse Relationship Specialty Start Date End Date Subhash Dowling MD [address] [place] [id number] PCP - General 06/03/10 documented as of this encounter
--- OUTSIDE RECORDS SUMMARY | 2024-08-15 01:37 | XMS_ITS | Encounter Summary ---
Author Organization [facility] Address [facility] [place] [address] Care Team Providers Care Rheumatology Specialist Name Role Phone Subhash Dowling MD Primary Care Provider [phone] Encounter Details Date Type Department Care Team (Late Contact Info) Description 01/16/2020 [place] [phone] Stephan Armstrong MD [facility] [place] [address] Social History Tobacco Use Types Packs/Day Years [...] encounter Miscellaneous Notes * Telephone Encounter - Marii Carr - 01/16/2020 3:12 PM EDT LMOM to confirm CT biopsy on 01/22. Pt is asked to start holding his Asprin now. documented in this encounter Plan of Treatment Upcoming Encounters Date Type Department Care Team (Late Contact Info) Description 08/15/2024 11:30 AM EST Office Visit Hematology/Oncology at [address] [phone] Chanelle Kim, [facility] [place] [address] Bee Curry, [facility] [place] [address] documented as of this encounter Visit Diagnoses Not on filedocumented in this encounter Care Teams Rheumatology Specialist Relationship Specialty Start Date End Date Subhash Dowling MD [address] [place] [address] PCP - General 06/03/10 documented as of this encounter
--- OUTSIDE RECORDS SUMMARY | 2024-08-15 01:37 | XMS_ITS | Encounter Summary ---
Author Organization [facility] [place] [address] Care Team Providers Care Reclamation Engineer Name Role Phone Subhash Dowling MD Primary Care Provider [phone] Reason for Referral * Diagnostic Test (Routine) - Closed Specialty Diagnoses / Procedures Referred By Contac t Referred To Contact Radiology Diagnoses Malignant neoplasm of urinary bladder, unspecified site Procedures NM PET CT Skull Base to Mid-thigh Stephan Armstrong MD [facility] [place] [address] [place] [address] Referral ID Status Reason Start Date Expiration Date V isits Requested Visits Authorized [id number] Closed Specialty Service Requested 12/14/2019 06/14/2021 1 1 Encounter Details Date Type Department Care Team (Late st Contact Info) Description 12/14/2019 Orders [place] [address] Stephan Armstrong MD [facility] [place] [address] Malignant neoplasm of urinary bladder, [...] 11:30 AM EST Office Visit Hematology/Oncology at [address] [phone] Chanelle Kim, [facility] [address] Bee Curry, [facility] [place] [address] documented as of this encounter Results * NM PET CT [...] report, please contact the number below. ? --------ORIGINAL REPORT -------- EXAMINATION: NM PET CT SKULL BASE TO MID-THIGH ? 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 Subsequent treatment evaluation. TECHNIQUE: Following IV injection of 75-fjjqwx-5-deoxyglucose (FDG) a standard uptake of approximately 60 [...] significant activity on prior study of 10/05/2019. Crop Adjuster largest lymph nodes in the left periaortic [...] report, please contact the number below. ? Addendum by Severo Webster MD on 01/31/2020 10:13 AM EDT --------ADDENDUM #1-------- CLINICAL HISTORY: Urologic cancer, 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 Subsequent treatment evaluation. --------ORIGINAL REPORT -------- EXAMINATION: NM PET CT SKULL BASE TO MID-THIGH ? 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 Subsequent treatment evaluation. TECHNIQUE: Following IV injection of 12-ujuvyv-0-deoxyglucose (FDG) a standard uptake of approximately 60 [...] significant activity on prior study of 10/05/2019. Crop Adjuster largest lymph nodes in the left periaortic [...] report, please contact the number below. ? Impressions 01/15/2020 12:30 PM EDT 1. ??Marked [...] contact the number below. ? Narrative 01/15/2020 12:30 PM EDT EXAMINATION: NM PET CT SKULL BASE TO MID-THIGH ? 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 Subsequent treatment evaluation. TECHNIQUE: Following IV injection of 46-rvkjmu-4-deoxyglucose (FDG) a standard uptake of approximately 60 [...] significant activity on prior study of 10/05/2019. Crop Adjuster largest lymph nodes in the left periaortic [...] treatment evaluation. TECHNIQUE: Following IV injection of 51-jkuomh-4-deoxyglucose (FDG) astandard uptake of approximately 60 minutes, [...] no significantactivity on prior study of 10/05/2019. Crop Adjuster largest lymph nodes in theleft periaortic region measure 10 mm (axial image 143) and 15 mm (axial [id number]). Metabolic resolution and decreased size of the [...] contact the number below. Stephan Armstrong MD IMG PET ORDERABLES documented in this encounter Visit Diagnoses Diagnosis Malignant neoplasm of urinary bladder, unspecified site Malignant neoplasm of urinary bladder, unspecified site documented in this encounter Care Teams Reclamation Engineer Relationship Specialty Start Date End Date Subhash Dowling MD [address] [place] [id number] PCP - General 06/03/10 documented as of this encounter
--- OUTSIDE RECORDS SUMMARY | 2024-08-15 01:37 | XMS_ITS | Encounter Summary ---
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 Aries Quiñones MD [facility] [place] [address] [facility] Hem Onc Office [address] [place] [phone] Referral ID Status Reason Start Date Expiration Date Visits Re quested Visits Authorized [id number] Closed 10/06/2019 10/05/2020 1 1 Encounter Details Date Type Department Care Team (Late st Contact Info) Description 12/19/2019 10:00 AM EDT Infusion Hematology Oncology at [address] [phone] Bladder cancer metastasized to pelvic [...] as of this encounter Progress Notes * Maria De Jesus Cooney RN - 12/19/2019 10:00 AM EDT INFUSION THERAPY ADMINISTRATION NOTES DIAGNOSIS: Bladder CA CYCLE #: 4 Day 1 REASON FOR VISIT: Gemzar/Cisplatin Chemotherapy SUBJECTIVE Mr. Aguilar is here for C4D1 Gemzar/Cisplatin chemotherapy. He offers no complaints. OBJECTIVE LAB DATA: Labs drawn today at [facility] reviewed and found adequate for treatment Pre administration: Chemotherapy orders independently verified for drug name, route, and dosage per patient's height, weight and BSA by Oliver Cooney RN and pharmacist on-site. REACTIONS (DESCRIPTION, TIME, INTERVENTION AND EFFECTIVENESS) none ASSESSMENT Mr. Aguilar was awake, alert and he tolerated treatment well. PLAN Return to clinic in one week for consideration of C4D8. Patient was reminded to call in the interimwith any questions/concerns. documented in this encounter Plan of Treatment Upcoming Encounters Date Type Department Care Team (Late st Contact Info) Description 08/15/2024 11:30 AM EST Office Visit Hematology/Oncology at [address] [phone] Chanelle Kim, [facility] [place] [address] Bee Curry [facility] [place] [address] documented as of this encounter Visit Diagnoses [...] over 2 Minutes, ONCE, 1 dose, On Wed12/19/19 at 1045, Alternative administration of IV push over 2 minutes is a recommendation from the solar project engineer. Administer prior to chemotherapy., Routine Given 12/19/2019 11:02 AM EDT 130 mg CISplatin (PLATINOL) 58 mg in sodium chloride 0.9% 308 mL chemo infusion 58 mg (rounded from 58.45 mg = 35 mg/m2/dose ? 1.67 m2 Treatment Plan BSA from Recorded weight), Intravenous, ONCE, 1 dose, On Wed12/19/19 at 1145, Administer over 60 Minutes New Bag 12/19/2019 12:46 PM EDT 58 mg 308 mL/hr dexamethasone (Decadron) tablet 10 mg 10 mg, Oral, ONCE, 1 dose, On Wed12/19/19 at 1045, Administer prior to chemotherapy, Routine Given 12/19/2019 11:00 AM EDT 10 mg GEMcitabine 1,600 mg in sodium chloride 0.9% 292.1053 mL chemo infusion 1,600 mg, Intravenous, ONCE, 1 dose, On Wed12/19/19 at 1145, Administer over 30 Minutes, Warning Vesicant/Irritant Medication , Dose Ordered = 1670 mg (1000 mg/m2). Pharmacist rounded dose per procedure. New Bag 12/19/2019 11:50 AM EDT 1,600 mg 584.2 mL/hr heparin, porcine 100 unit/mL flush 500 Units 500 Units, Intravenous, ONCE PRN, Starting on Wed12/19/19 at 1016, Until Wed12/19/19 at 1718, Line Care, Refer to Intravenous (IV) Procedure: Accessing Implanted Vascular Access Devices (964) procedure and/or Intravenous (IV) Job Aid: Adult Flushing & Catheter Care (3205) job aid for additional information regarding guidelines and administration., Routine Given 12/19/2019 2:41 PM EDT 500 Units magnesium sulfate 1g in dextrose 5% 100mL 1 g, Intravenous, EVERY HOUR, 2 doses, First dose (after last modification) on Wed12/19/19 at 1145, Last dose on Wed12/19/19 at 1300, Administer over 60 Minutes, Total dose is 2 grams. Post - CISplatin New Bag 12/19/2019 1:38 PM EDT 1 g 100 mL/hr New Bag 12/19/2019 12:42 PM EDT 1 g 100 mL/hr palonosetron (ALOXI) injection 0.25 mg 0.25 mg, Intravenous, ONCE, 1 dose, On Wed12/19/19 at 1045, Administer over 30 seconds. Administer prior to chemotherapy, Routine Given 12/19/2019 11:00 AM EDT 0.25 mg sodium chloride 0.9 % (flush) flush 5-20 mL 5-20 mL, Intravenous, EVERY 1 MIN PRN, Starting on Wed12/19/19 at 1016, Until Wed12/19/19 at 1718, Line Care, Flush pertains to all indwelling lines. Flush per protocol found in the job aid using the link provided on this medication record. Refer to Intravenous (IV) Job Aid: Adult Flushing & Catheter Care (3648) job aid for additional information regarding guidelines and administration., Routine Given 12/19/2019 2:41 PM EDT 20 mLs sodium chloride 0.9% infusion 1,000 mL, at 500 mL/hr, Intravenous, CONTINUOUS, Starting on Wed12/19/19 at 1045, Until Wed12/19/19 at 1244, Pre CISplatin New Bag 12/19/2019 10:30 AM EDT 1,000 mLs 500 mL/hr sodium chloride 0.9% with potassium chloride 20 mEq infusion 1,000 mL, at 500 mL/hr, Intravenous, CONTINUOUS, Starting on Wed12/19/19 at 1145, Until Wed12/19/19 at 1344, Post - CISplatin New Bag 12/19/2019 12:40 PM EDT 1,000 mLs 500 mL/hr documented in this encounter Care Teams Trust Mail Clerk Relationship Specialty Start Date End Date Subhash Dowling MD [address] [place] [id number] PCP - General 06/03/10 documented as of this encounter
--- OUTSIDE RECORDS SUMMARY | 2024-08-15 01:37 | XMS_ITS | Encounter Summary ---
Author Organization [facility] [place] [address] Care Team Providers Care Administrative Operations Coordinator Name Role Phone Subhash Dowling MD Primary Care Provider [phone] Encounter Details Date Type Department Care Team (Late st Contact Info) Description 01/18/2020 Notes Only Hematology [place] [address] Kalyani Burgos, KEYA Social History Tobacco Use [...] Progress Notes * Kalyani Burgos RN - 01/18/2020 9:49 AM EDT Pt is scheduled for the following: lymph nodes CT guided biopsy on 01/23/20 and a pre-op visit on 01/25/20 for his scheduled cystectomy on 02/06/20 - if his biopsy is negative. I discussed pt`s plansto covering social services at [facility], Zaida Isaac about pt`s transportation challenges. Zaida will set-up pt`s transportation for CT biopsy and pre-op visit. She will defer to set-up transportation for cystectomy to Nadia Mueller ([facility] social services) as surgery is still pending per result of biopsy. documented in this encounter Plan of Treatment Upcoming Encounters Date Type Department Care Team (Late st Contact Info) Description 08/15/2024 11:30 AM EST Office Visit Hematology/Oncology at [address] [phone] Chanelle Kim [facility] [place] [address] Bee Curry [facility] [place] [address] documented as of this encounter Visit Diagnoses Not on filedocumented in this encounter Care Teams Administrative Operations Coordinator Relationship Specialty Start Date End Date Subhash Dowling MD [address] [place] [id number] PCP - General 06/03/10 documented as of this encounter
--- OUTSIDE RECORDS SUMMARY | 2024-08-15 01:37 | XMS_ITS | Encounter Summary ---
Author [facility] [place] [address] Care Team Providers Care Manufacturing Technology Professor Name Role Phone Subhash Dowling MD Primary Care Provider [phone] Reason for Visit * Reason Onset Date Comments Other 01/01/2020 transportation Encounter Details Date Type Department Care Team (Late st Contact Info) Description 01/01/2020 Telephone Hematology/Oncology at [address] [phone] Nadia Mueller MSW OFFICE OF CARE MANAGEMENT [...] Telephone Encounter - Nadia Mueller MSW - 01/01/2020 9:37 AM EDT Request from Marii Carr, Clinical [place], Urology to set up transportation for pt on 01-15-20 to [facility]. Arrival at 9 am and quill picking machine operator for home at 5 pm. TC pt to discuss. Faxed request for rides to [facility] this morning. Will fax physician referral form to Medicaid Transportation tomorrow for approval for this ride. documented in this encounter Plan of Treatment Upcoming Encounters Date Type Department Care Team (Late st Contact Info) Description 08/15/2024 11:30 AM EST Office Visit Hematology/Oncology at [address] [phone] Chanelle Kim, [facility] [place] [address] Bee Curry [facility] [place] [address] documented as of this encounter Visit Diagnoses Not on filedocumented in this encounter Care Teams Manufacturing Technology Professor Relationship Specialty Start Date End Date Subhash Dowling MD [address] [place] [address] PCP - General 06/03/10 documented as of this encounter
--- OUTSIDE RECORDS SUMMARY | 2024-08-15 01:37 | XMS_ITS | Encounter Summary ---
Author Organization [facility] [place] [address] Care Team Providers Care Kitchen Cleaner Name Role Phone Subhash Dowling MD Primary Care Provider [phone] Encounter Details Date Type Department Care Team (Late Contact Info) Description 12/15/2019 Telephone Hematology/Oncology at [address] [phone] Marcy Castillo Social History Tobacco Use Types Packs/Day Years [...] encounter Miscellaneous Notes * Telephone Encounter - Marcy Castillo - 12/15/2019 12:32 PM EDT I spoke with Gt regarding his appts that he missed with Dr. Quiñones, he stated he does not want to come in December 18 for an appt he prefers to wait until the following week of December [address] Quiñones and have his infusion to follow. Gt is aware he needs labs one hour prior to the appt and social work is aware of the need for transportation. documented in this encounter Plan of Treatment Upcoming Encounters Date Type Department Care Team (Late Contact Info) Description 08/15/2024 11:30 AM EST Office Visit Hematology/Oncology at [address] [phone] Chanelle Kim, [facility] [place] [address] Bee Curry [facility] [address] documented as of this encounter Visit Diagnoses Not on filedocumented in this encounter Care Teams Kitchen Cleaner Relationship Specialty Start Date End Date Subhash Dowling MD [address] [place] [id number] PCP - General 06/03/10 documented as of this encounter
--- OUTSIDE RECORDS SUMMARY | 2024-08-15 01:37 | XMS_ITS | Encounter Summary ---
[place] [address] Care Team Providers Care Railroad Repairer Name Role Phone Subhash Dowling MD Primary Care Provider [phone] Encounter Details Date Type Department Care Team (Late Contact Info) Description 11/30/2019 Notes Only Hematology [place] [address] Yamilka Hernandez, RN Social History Tobacco Use [...] as of this encounter Progress Notes * Yamilka Hernandez RN - 11/30/2019 4:43 PM EDT Requested [facility] RAJWINDER, Nadia Mueller, set-up transportation for Gt' appointments on 12/07 in [place]. Mailed Gt a calendar of his appointments on 12/07. Will call Gt early next week to confirm receipt of calendar and ensure he is aware of appointments. documented in this encounter Plan of Treatment Upcoming Encounters Date Type Department Care Team (Late Contact Info) Description 08/15/2024 11:30 AM EST Office Visit Hematology/Oncology at [address] [phone] Chanelle Kim, [facility] [place] [address] Bee Curry [facility] [place] [address] documented as of this encounter Visit Diagnoses Not on filedocumented in this encounter Care Teams Railroad Repairer Relationship Specialty Start Date End Date Subhash Dowling MD [address] [place] [id number] PCP - General 06/03/10 documented as of this encounter
--- OUTSIDE RECORDS SUMMARY | 2024-08-15 01:37 | XMS_ITS | Encounter Summary ---
Author Organization [facility] Address 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; Malignant neoplasm of overlapping sites of bladder; Encounter for chemotherapy management Social History Tobacco Use Types Packs/Day Years [...] Sign Reading Time Taken Comments Blood Pressure 114/78 12/26/2019 9:25 AM EDT Pulse 89 12/26/2019 9:25 AM EDT Temperature 36.6 ??C (97.9 ??F) 12/26/2019 9:25 AM ED T Respiratory Rate 16 12/26/2019 9:25 AM EDT Oxygen Saturation 97% 12/26/2019 9:25 AM EDT Inhaled Oxygen Concentration - - Weight 56.7 kg (125 lb) 12/26/2019 9:25 AM EDT Height 167.6 cm (5' 5.98) 12/26/2019 9:25 AM ED T Body Mass Index 20.19 12/26/2019 9:25 AM EDT documented in this encounter Progress Notes * Aries Quiñones MD - 12/26/2019 9:30 AM EDT Images from the original [...] Interval History:Mr. Aguilar returns to clinic in [facility] today for follow up of bladder cancer and day 8 of 4th cycle of chemotherapy. Today he feels well. Denies any diarrhea. Denies any fevers, chills or signs of infection. Mr. Aguilar lives alone in [place] and has little social support. He does have a [facility] coordinator Ketty Garcia who [facility]. Overall he has done well with his treatments. Appetite is good.Denies any nausea or vomiting. [...] as well. He lives by himself. 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 Lives alone. He has 2 children but he is not in touch with them Family History: Noncontributory Allergies: Allergies Allergen Reactions ??? Wellbutrin [Bupropion Hcl] Other (See Comments) Unknown on pt's chart from outside facility Medications: Your Medications Accurate as of December 26, 2019 9:46 AM. If you have any questions, ask [...] axillary nodes normal Neurologic: Normal Vitals BP 114/78 (Patient Position: Sitting) Pulse 89 Temp 36.6 ??C (97.9 ??F) (Temporal) Resp 16 Ht 167.6 cm (5' 5.98) Wt 56.7 kg (125 lb) SpO2 97% BMI 20.19 kg/m?? Pathology: 07/31/2019 Urinary bladder, site not specified, mass, TURBT: - High grade urothelial carcinoma, invasive into muscularis propria and asuncion-muscular ??bundle adipose tissue. - Focal urothelial carcinoma in situ Labs: 12/26/2019 WBC 9.41, hemoglobin 12.2, platelet count 101, ANC 7.72, BUN 24, creatinine 1.18, calcium 8.9, magnesium 2.0, TB 0.5, AST 10, ALT [...] PET scan on December 28 Mr. Aguilar returns today for D8C4 of chemotherapy. He appears to be tolerating [...] a week ago. Plan: 1. Proceed with D8C4 Cisplatin/Gemcitabine as scheduled today. 2. PET scan on December 28 3. Follow up with urologist Dr. Armstrong as scheduled 4. Next visit in 2 months with CBC and CMP Mr. 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
--- OUTSIDE RECORDS SUMMARY | 2024-08-15 01:37 | XMS_ITS | Encounter Summary ---
Author Organization [facility] [place] [address] Care Team Providers Care Coding Team Lead Name Role Phone Subhash Dowling MD Primary Care Provider [phone] Reason for Visit * Reason Onset Date Comments Other 12/05/2019 transportation Encounter Details Date Type Department Care Team (Late st Contact Info) Description 12/05/2019 Telephone Hematology/Oncology at [address] [phone] Nadia Mueller MSW OFFICE OF CARE MANAGEMENT [...] Telephone Encounter - Nadia Mueller MSW - 12/05/2019 8:59 AM EDT Message received from Yamilka Hernandez, Nurse Navigator of pt's appointment with Urology scheduled for 12-08-19 at [facility]. Requested Mc. Hernandez complete and fax in a physician referral form to [place] Medicaid Medical transportation for approval for this ride due to distance. Messaged [facility] with date and timeof the appointment. documented in this encounter Plan of Treatment Upcoming Encounters Date Type Department Care Team (Late st Contact Info) Description 08/15/2024 11:30 AM EST Office Visit Hematology/Oncology at [address] [phone] Chanelle Kim, [facility] [place] [address] Bee Curry [facility] [place] [address] documented as of this encounter Visit Diagnoses Not on filedocumented in this encounter Care Teams Coding Team Lead Relationship Specialty Start Date End Date Subhash Dowling MD [address] [place] [id number] PCP - General 06/03/10 documented as of this encounter
--- OUTSIDE RECORDS SUMMARY | 2024-08-15 01:38 | XMS_ITS | Encounter Summary ---
Author Organization [facility] [place] [address] Care Team Providers Care Director Recreation Name Role Phone Subhash Dowling MD Primary Care Provider Encounter Details Date Type Department Care Team (Late st Contact Info) Description 11/06/2019 Telephone Hematology/Oncology at [address] [phone] Marcy Castillo Social History Tobacco Use Types Packs/Day Years Used Date Smoking Tobacco: Every Day Cigarettes 2 50 Smokeless Tobacco: Never Sex and Gender Information Value Date Recorded Sex Assigned at Not on file Gender Identity Not on file Sexual Orientation Not on file documented as of this encounter Plan of Treatment Upcoming Encounters Date Type Department Care Team (Late st Contact Info) Description 08/15/2024 11:30 AM EST Office Visit Hematology/Oncology at [address] [phone] Chanelle Kim [facility] [place] [address] Bee Curry [facility] [place] [address] documented as of this encounter Visit Diagnoses Not on filedocumented in this encounter Care Teams Director Recreation Relationship Specialty Start Date End Date Subhash Dowling MD [address] [place] [id number] PCP - General 06/03/10 documented as of this encounter
--- OUTSIDE RECORDS SUMMARY | 2024-08-15 01:38 | XMS_ITS | Encounter Summary ---
Author Organization 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 Aries Quiñones MD [facility] [address] [place] [address] [facility] Hem Onc Office [address] [place] [phone] Referral ID Status Reason Start Date Expiration Date Visits Re quested Visits Authorized [id number] Closed 10/06/2019 10/05/2020 1 1 Encounter Details Date Type Department Care Team (Late st Contact Info) Description 11/14/2019 10:00 AM EDT Infusion Hematology Oncology at [address] [phone] Bladder cancer metastasized to pelvic [...] as of this encounter Progress Notes * Bailey Son RN - 11/14/2019 10:00 AM EDT INFUSION THERAPY ADMINISTRATION NOTES DIAGNOSIS: Bladder CA CYCLE #: 2 Day 8 REASON FOR VISIT: Cisplatin/Gemzar chemotherapy SUBJECTIVE Mr. Aguilar offers no complaints. OBJECTIVE LAB DATA: WBC 11.41, HGB 13.0, HCT 38.1, PLT 199, ANC 8.48, BUN20, Cr 1.28, Mg 2.2, K 4.5, Crcl 45.478 Pre administration: Chemotherapy orders independently verified for drug name, route, and dosage per patient's height, weight and BSA by Polina Son RN and pharmacist on-site. REACTIONS (DESCRIPTION, TIME, INTERVENTION AND EFFECTIVENESS) none ASSESSMENT Mr. Aguilar was awake, alert and he tolerated treatment well. ONPRO placed on right upper arm, due to deploy at 1715, instructed to remove at 1815, written card given. PLAN Return to clinic next week. Patient was reminded to call in the interim with any questions/concerns. documented in this encounter Plan of Treatment Upcoming Encounters Date Type Department Care Team (Late st Contact Info) Description 08/15/2024 11:30 AM EST Office Visit Hematology/Oncology at [address] [phone] [facility] [place] [address] Bee Curry [facility] [place] [address] documented as of this encounter Visit Diagnoses [...] over 2 Minutes, ONCE, 1 dose, On 5/5/20 at 1045, Alternative administration of IV push over 2 minutes is a recommendation from the bobj developer. Administer prior to chemotherapy., Routine Given 11/14/2019 10:51 AM EDT 130 mg CISplatin (PLATINOL) 58 mg in sodium chloride 0.9% 308 mL chemo infusion 58 mg (rounded from 58.45 mg = 35 mg/m2/dose ? 1.67 m2 Treatment Plan BSA from Recorded weight), Intravenous, ONCE, 1 dose, On Wed11/14/19 at 1145, Administer over 60 Minutes New Bag 11/14/2019 12:41 PM EDT 58 mg 308 mL/hr dexamethasone (Decadron) tablet 10 mg 10 mg, Oral, ONCE, 1 dose, On Wed11/14/19 at 1045, Administer prior to chemotherapy, Routine Given 11/14/2019 10:47 AM EDT 10 mg GEMcitabine 1,600 mg in sodium chloride 0.9% 292.1053 mL chemo infusion 1,600 mg, Intravenous, ONCE, 1 dose, On Wed11/14/19 at 1145, Administer over 30 Minutes, Warning Vesicant/Irritant Medication , Dose Ordered = 1670 mg (1000 mg/m2). Pharmacist rounded dose per procedure. New Bag 11/14/2019 11:50 AM EDT 1,600 mg 584.2 mL/hr magnesium sulfate 1g in dextrose 5% 100mL 1 g, Intravenous, EVERY HOUR, 2 doses, First dose on Wed11/14/19 at 1300, Last dose on Wed11/14/19 at 1400, Administer over 60 Minutes, Total dose is 2 grams. Post - CISplatin New Bag 11/14/2019 1:33 PM EDT 1 g 100 mL/hr New Bag 11/14/2019 12:36 PM EDT 1 g 100 mL/hr palonosetron (ALOXI) injection 0.25 mg 0.25 mg, Intravenous, ONCE, 1 dose, On Wed11/14/19 at 1045, Administer over 30 seconds. Administer prior to chemotherapy, Routine Given 11/14/2019 10:54 AM EDT 0.25 mg pegfilgrastim (NEULASTA ONPRO) injection kit 6 mg, Subcutaneous, ONCE, 1 dose, On Wed11/14/19 at 1045, Allow the prefilled syringe co-packaged with the on-body injector to reach room temperature at least 30 minutes prior to administration., Routine, This agent is restricted to outpatient use. Is this drug being given as an outpatient? Yes Given 11/14/2019 2:14 PM EDT 6 mg Right Arm potassium chloride 10 mEq in 100 mL 10 mEq, Intravenous, EVERY HOUR, 2 doses, First dose on Wed11/14/19 at 1300, Last dose on Wed11/14/19 at 1400, Administer over 60 Minutes, Warning Vesicant/Irritant Medication New Bag 11/14/2019 1:34 PM EDT 10 mEq 100 mL/hr New Bag 11/14/2019 12:36 PM EDT 10 mEq 100 mL/hr sodium chloride 0.9% infusion 1,000 mL, at 500 mL/hr, Intravenous, CONTINUOUS, Starting on Wed11/14/19 at 1045, Until Wed11/14/19 at 1244, Pre CISplatin New 11/14/2019 10:22 AM EDT 1,000 mLs 500 mL/hr sodium chloride 0.9% infusion 1,000 mL, at 500 mL/hr, Intravenous, CONTINUOUS, Starting on Wed11/14/19 at 1300, Until Wed11/14/19 at 1459 New Bag 11/14/2019 12:25 PM EDT 1,000 mLs 500 m L/hr documented in this encounter Care Teams Install Technician Relationship Specialty Start Date End Date Subhash Dowling MD [address] [place] [id number] PCP - General 06/03/10 documented as of this encounter
--- OUTSIDE RECORDS SUMMARY | 2024-08-15 01:38 | XMS_ITS | Encounter Summary ---
Author Organization [facility] [place] [address] Care Team Providers Care Radio Repairman Name Role Phone Subhash Dowling MD Primary Care Provider [phone] Reason for Visit * Reason Onset Date Comments Other 10/10/2019 transportation Encounter Details Date Type Department Care Team (Late st Contact Info) Description 10/10/2019 Telephone Hematology/Oncology at [address] [phone] Nadia Mueller MSW OFFICE OF CARE MANAGEMENT [...] Telephone Encounter - Nadia Mueller MSW - 10/10/2019 8:42 AM EDT Received pt's schedule for upcoming appointments. [facility] TC pt and spoke to friend Derek who is now living with pt. Informed him of first appointment on 10-17-19 with times for trip to [facility] lab, to [facility] for MD visit and treatment and then back home. Informed Derek pt will receive his full schedule his first visit. Informed Derek [facility] so [facility] be arranged. Derek understands the plan and will make sure pt ready for his appointments. documented in this encounter Plan of Treatment Upcoming Encounters Date Type Department Care Team (Late st Contact Info) Description 08/15/2024 11:30 AM EST Office Visit Hematology/Oncology at [address] [phone] Chanelle Kim, [facility] [place] [address] Bee Curry [facility] [place] [address] documented as of this encounter Visit Diagnoses Not on filedocumented in this encounter Care Teams Radio Repairman Relationship Specialty Start Date End Date Subhash Dowling MD [address] [place] [address] PCP - General 06/03/10 documented as of this encounter
--- OUTSIDE RECORDS SUMMARY | 2024-08-15 01:38 | XMS_ITS | Encounter Summary ---
Author Organization [facility] [place] [address] Care Team Providers Care Structural Drafter Name Role Phone Subhash Dowling MD Primary Care Provider [phone] Encounter Details Date Type Department Care Team (Late st Contact Info) Description 11/15/2019 Telephone Hematology [place] [phone] Yamilka Hernandez, RN Social History Tobacco Use Types Packs/Day Years Used Date Smoking Tobacco: Every Day Cigarettes 2 50 Smokeless Tobacco: Never Sex and Gender Information Value Date Recorded Sex Assigned at Not on file Gender Identity Not on file Sexual Orientation Not on file documented as of this encounter Miscellaneous Notes * Telephone Encounter - Yamilka Hernandez RN - 11/15/2019 2:07 PM EDT Received In-Basket message from [facility], Nadia Mueller requesting that I connect with the patient to help him navigate the process on this appointment day (referring to 11/27/19). Nadia has already arranged transportation via [facility] for the 11/26 [place] appointments. Placed call to Gt to introduce my role as Nurse Navigator, review purpose of appointments on 11/26, and to assess if he needed any physical or emotional support during the visits. Gt stated thathe was unaware of the 11/26 appointments in [place], and that he only had appointments on 11/27 and 12/04 in [facility]. Confirmed that yes, he did have appointments on 11/27 and 12/04, but that he also had appointments scheduled for 11/26. Patient claimed, Well, no one tells me nothin'! When I informed Gt of the appointment for the mediport placement, he vehemently denied the need for one: I only have four more [infusions] and my veins do just fine if I they run it slow, so why do I want to go have that thing put in me. When I informed Gt that the purpose of the appointment with Dr. Armstrong is to further discuss surgery (i.e.radical cystoprostatectomy + ileal conduit) andhow to care for himself after surgery (i.e. meet with a stoma therapist), he denied any knowledge of a need for surgery: See? No one tells me nothin'! To the contrary of several chart notes, Gt claims that he was completely caught off guard by this information and these appointments. Informed Gt that I would discuss this with his team and that we would get back to him about the appointments on 11/26. documented in this encounter Plan of Treatment Upcoming Encounters Date Type Department Care Team (Late st Contact Info) Description 08/15/2024 11:30 AM EST Office Visit Hematology/Oncology at [address] [phone] Chanelle Kim [facility] [place] [address] Bee Curry [facility] [address] documented as of this encounter Visit Diagnoses Not on filedocumented in this encounter Care Teams Structural Drafter Relationship Specialty Start Date End Date Subhash Dowling MD [address] [place] [id number] PCP - General 06/03/10 documented as of this encounter
--- OUTSIDE RECORDS SUMMARY | 2024-08-15 01:38 | XMS_ITS | Encounter Summary ---
Author Organization [facility] [place] [address] Care Team Providers Care Rn Acute Name Role Phone Subhash Dowling MD Primary Care Provider [phone] Reason for Visit * Diagnostic Test (Routine) - Closed Specialty Diagnoses / Procedures Referred By Contac t Referred To Contact Radiology Diagnoses Malignant neoplasm of urinary bladder, unspecified site Procedures NM PET CT Skull Base to Mid-thigh Aries Quiñones MD [facility] DR HEM[place]OLOGY [place] [address] [place] [address] Referral ID Status Reason Start Date Expiration Date V isits Requested Visits Authorized [id number] Closed Specialty Service Requested 09/26/2019 03/28/2021 1 1 Encounter Details Date Type Department Care Team (Latest Contact Info) Description 10/05/2019 10:56 AM EDT - 10/05/2019 11:59 PM EDT Hospital Encounter [place] [phone] Aries Quiñones MD [facility] [place]OLOG[place] [address] Discharge Disposition: Home Social History [...] Sig Dispensed Refills Start Date End Date aspirin EC 81 mg Tablet, Delayed Release (E.C.) Take 81 mg by mouth daily. atorvastatin (Lipitor) 20 mg Tablet Take 20 mg by mouth daily. atenoloL (Tenormin) 25 mg Tablet Take 25 mg by mouth daily. 03/07/2020 traMADoL (Ultram) 50 mg Tablet Take 50 mg by mouth every 6 hours as needed for Pain. 03/07/2020 documented as of this encounter Plan of Treatment Upcoming Encounters Date Type Department Care Team (Late st Contact Info) Description 08/15/2024 11:30 AM EST Office Visit Hematology/Oncology at [address] [phone] Chanelle Kim, [facility] [place] [address] Bee Curry, [facility] [place] [address] documented as of this encounter Procedures Procedure Name Priority Date/Time Associated Diagnosis Comments NM PET CT SKULL BASE TO MID-THIGH ([facility]) Routine 10/05/2019 1:48 PM EDT Malignant neoplasm of urinary bladder, unspecified site POCT GLUCOSE Routine 10/05/2019 12:31 PM EDT documented in this encounter Results * POCT Glucose (10/05/2019 12:31 PM EDT) Glucose, POC 96 65 - 199 mg/dL [facility] Comment: Supplemental ranges: <140 mg/dL before meals <180 mg/dL all other times of the day Blood specimen (specimen) 10/05/2019 12:31 PM EDT 10/05/2019 12:31 PM EDT Aries Quiñones MD POINT OF CARE TEST O RDERABLES [facility] [place] [address] documented in this encounter Visit Diagnoses Not on filedocumented in this encounter Care Teams Rn Acute Relationship Specialty Start Date End Date Subhash Dowling MD [address] [place] [id number] PCP - General 06/03/10 documented as of this encounter
--- OUTSIDE RECORDS SUMMARY | 2024-08-15 01:38 | XMS_ITS | Encounter Summary ---
Author Organization [facility] [place] [address] Care Team Providers Care Shell Mold Bonding Machine Operator Name Role Phone Subhash Dowling MD Primary Care Provider [phone] Reason for Visit * Reason Onset Date Comments Follow-up 10/18/2019 s/p 1st chemothe rapy Encounter Details Date Type Department Care Team (Late st Contact Info) Description 10/18/2019 Telephone Hematology/Oncology at [address] [phone] Porter Steiner, RN Follow-up (s/p 1st chemotherapy) Social History Tobacco Use Types Packs/Day Years Used Date Smoking Tobacco: Every Day Cigarettes 2 50 Smokeless Tobacco: Never Sex and Gender Information Value Date Recorded Sex Assigned at Not on file Gender Identity Not on file Sexual Orientation Not on file documented as of this encounter Miscellaneous Notes * Telephone Encounter - Porter Steiner RN - 10/18/2019 1:27 PM EDT Post chemo call Placed call to patient to assess tolerance of first time chemotherapy treatment. Regimen received: Cisplatin + Gemcitabine Date of treatment: 10/17/19 Assessment: Symptom?? Present (yes[y]/no[n]/ stable[s] from baseline)?? Additional information/Assessment?? GI? Nausea?? N ?? Vomiting?? N ?? Nausea medication?? Y ??Flores did warehouse picker for him Tolerating diet?? Y ?? Maintaining fluid intake (indicate volume)?? Y Pt said he drinks ~4-5 cups coffee a day, explained for each cup of coffee he should drink 8 oz of water in addition to the recommended 1-2 quarts of non-caffeinated, non-alcoholic fluids a day Bowel movements regular?? Y ?? Diarrhea?? N ?? Mouth sores?? N ?? General? Pain (0 none - 10 high)?? Y ??Dysuria reported Using pain medications?? Y Fever?? N ?? Neuro? Level of fatigue (0 - 5)?? 3 Main complaint today is fatigue Falls?? N ?? Numbness/tingling in arms/legs?? N ?? Cognitive changes?? N ?? Skin? Skin changes?? N ?? Pinpoint red dots?? N ?? Other s/s of bleeding?? N? IV site/VAD problems?? N Musculoskeletal? Joint swelling or tenderness?? N ?? Arthralgias or myalgias?? N ? Voiding problems?? Y Dysuria- burning with urination??only Color and quality of urine?? Clear ?? Cardio-pulmonary? Shortness of breath?? N ?? Chest pain?? N ?? Swelling in legs?? N ?? Calf pain or tenderness?? N ?? Cough (productive/non-productive)?? N ?? Psychosocial? Coping?? Y Wendy Garcia will check on him daily during treatment ? Need prescription renewals? Other issues:?? Reinforce chemo teaching - Reviewed and sent patient home with chemo teaching booklet but he is illiterate. Lives with friend, Boubacar who I am hoping can use the booklet as a referenceif needed. ?? Education provided: ?? Plan:? Follow up in 1 week with labs prior. Pt uses [facility]. Reinforced to patient/care-diamond cleaner to call facility 01/02 with any new/worsening signs and symptoms orconcerns or questions.?? Phone number provided.?? Pt verbalized understanding and is in agreement with plan. ? documented in this encounter Plan of Treatment Upcoming Encounters Date Type Department Care Team (Late st Contact Info) Description 08/15/2024 11:30 AM EST Office Visit Hematology/Oncology at [address] [phone] Chanelle Kim, [facility] [place] [address] Bee Curry [facility] [place] [address] documented as of this encounter Visit Diagnoses Not on filedocumented in this encounter Care Teams Shell Mold Bonding Machine Operator Relationship Specialty Start Date End Date Subhash Dowling MD [address] [place] [id number] PCP - General 06/03/10 documented as of this encounter
--- OUTSIDE RECORDS SUMMARY | 2024-08-15 01:38 | XMS_ITS | Encounter Summary ---
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 Procedures IR Mediport Placement Chanelle Kim [facility] [place] [address] [place] [address] Referral ID Status Reason Start Date Expiration Date V isits Requested Visits Authorized [id number] Closed Specialty Service Requested 11/07/2019 05/08/2021 1 1 Reason for Visit * Diagnostic Test (Routine) - Closed Specialty Diagnoses / Procedures Referred By Contac t Referred To Contact Radiology Diagnoses 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 Procedures IR Mediport Placement Chanelle Kim [facility] [place] [address] [place] [address] Referral ID Status Reason Start Date Expiration Date V isits Requested Visits Authorized [id number] Closed Specialty Service Requested 11/07/2019 05/08/2021 1 1 Encounter Details Date Type Department Care Team (Latest Contact Info) Description 11/27/2019 6:20 AM EDT - 11/27/2019 11:59 PM EDT Hospital Encounter Radiology at [facility] [place] [address] Chanelle Kim APRN [facility] [place] [address] 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 [facility] Department of Vascular and Interventional Radiology Discharge Instructions for your Chest Port You have received a ???Power Port?? , which provides access for infusions and blood draws. What makes this a ???Power Port?? is the unique ability to ???power inject?? contrast (intravenous dye) through the port when getting a CT scan, which produces superior images (pictures). Patients who don???t have these special ports need to have an IV started if they need dye injected for their CT scan. Your port is printed with the letters ???CT?? which can be detected by x- ray to identify it as a ???Power Port?? . You will be provided with an ID card stating the mental health program manager and type of port you have. Please carry this with you in a safe place. Bandage: There is a sterile dressing over the port site consisting of small gauze with a clear dressing (Tegaderm or [id number] ). This dressing should be left in place for 48 hours. If the clear dressing becomes loose you should place tape over the edges to secure it in place. Note: If you have steri-strips beneath your dressing, simply allow them to fall off. Do not peel them off. There may be Varnell-garrison (skin glue) also, allow this to flake off. Pain: Apply ice bag to site (s) at 30 minute intervals (30 minutes on and 30 minutes off) for 24 hours?? . May use as needed for pain and/or bruising after 24 hours. Bathing: Do not take a shower until 48 hours after your port is placed; after this time you may shower with the dressing in place, then remove it and pat your skin dry. After 48 hours, we recommend that you cover the area with THE AQUA GUARD PROVIDED for 1 week while showering, facing away from theshower stream. You may use a bandaid to cover the site after the 48 hours are up if there is any drainage. No tub baths, whirlpools or swimming for one week following port placement. Flushing the mediport: If your port has not been used, it must be flushed every 30 days. What to expect when your port is accessed: 1. You may feel tenderness the first few times it is accessed but generally this subsides over time. Ask your healthcare provider to use a local anesthetic on the site if discomfort is a problem for you. You may ask for a prescription for a topical cream (EMLA) from your clinician; you may apply athome prior to your appointments, to help numb the skin over your port. 2. The clinician should be wearing sterile gloves and a mask during the access procedure. Anyone inthe room with you should also have a mask on. 3. The skin over and 2 inches around the port should be cleaned with a disinfectant 4. Tell the clinician if you would like the skin numbed (lidocaine) before the access needle is placed. 5. Unless you are unable to take heparin (blood thinner), the port should be injected with a heparin solution before deaccess (at end of each treatment or blood draw). When to call your healthcare provider: ??? If you notice bleeding from the puncture site in your neck, or from the port incision on your chest, you should apply firm pressure over the site for 10-15 minutes, keeping the site covered. Callif you are still bleeding after 10-15 minutes. ??? If you develop pain, redness, drainage or swelling at or around the port site, or the puncture site in the neck ??? If you develop fever (elevation of more than 2 degrees or greater than 101F) and/or shaking chills When to call the Interventional Radiology Department: Please call with any questions or concerns. If it is during regular office hours, please call [phone]. If it is after regular office hours, or on weekends or holidays, please call [phone] and ask to speak to the Civil Engineering Project Manager division leader for Interventional Radiology. XXX You have received medication during your procedure to help lessen anxiety and keep you comfortable. These medications affect judgement and reaction time. We [...] Sig Dispensed Refills Start Date End Date albuterol 90 mcg/actuation HFA Aerosol Inhaler Inhale 2 puffs into the lungs every 4 hours as needed for Wheezing. Use with spacer aspirin EC 81 mg Tablet, Delayed Release (E.C.) Take 81 mg by mouth daily. atorvastatin (Lipitor) 20 mg Tablet Take 20 mg by mouth daily. prochlorperazine (Compazine) 10 mg TabletIndications:Malign ant neoplasm of urinary bladder, unspecified site Take 1 tablet by mouth every 6 hours as needed for Nausea. 60 tablet 3 10/17/2019 01/15/2020 atenoloL (Tenormin) 25 mg Tablet Take 25 mg by mouth daily. 03/07/2020 traMADoL (Ultram) 50 mg Tablet Take 50 mg by mouth every 6 hours as needed for Pain. 03/07/2020 documented as of this encounter Progress Notes * Neela Weems RN - 11/27/2019 11:59 PM EDT Interventional and Vascular Radiology Post-Procedure Call Name: Wally Marinelli Age: 69 y.o. Sex; Male Date of : 1950 (home) No relevant phone numbers on file. PCP Subhash Dowling MD [phone] Date/Time of call: November 28, 2019/9:32 AM Procedure: Mediport Insertion Procedural Provider: Le Contact with patient or if not, with whom? Yes Message left on answering machine? N/A Provider notified via phone or email if unable to contact pt: N/A Are you having pain related to your procedure now? A little sore Are you having any swelling or bleeding from the site? None Are you having any other problems related to your procedure? None Comments: Did you understand the discharge instructions given and do you have any questions? Yes/No Comments: Do you have any comments about your Nurse or Provider or the care you received? None Nurse Comments: * Dyana Craft RN - 11/27/2019 8:04 AM EDT ANGIO NURSING DATABASE Name: WALLY MARINELLI Date of : 1950 AGE: 69 y.o. [address]: [address] [address] (home) Mobile: No relevant phone numbers on file. Referring Provider: Chanelle Kim REASON FOR VISIT: Order Questions Answers Where will study be performed? [facility] Radiology [120] Prefered insertion location: No Preference Is the patient on anticoagulant / anitplatelet therapy ? Aspirin Reason for exam and clinical history: on chemotherapy infusions for bladder cancer Exam/Procedure requested: Mediport insertion Plan Planned procedure: Chest Port - Single Lumen Placement (11/16/191610) Labs to be performed day of procedure: No labs (11/16/191610) Sedation: Moderate (Conscious sedation) (11/16/191610) Prophylactic antibiotic : Ancef (11/16/191610) Contrast: No contrast (11/16/191610) Additional medications for procedure: Lidocaine (11/16/191610) Medications to discontinue (and days held): None (11/16/191610) Planned access site: Right IJ (11/16/191610) Position: Supine (11/16/191610) Cytopathology presence needed: No (11/16/191610) Consent: Pending (11/16/191610) Allergies Allergen Reactions ??? Wellbutrin [Bupropion Hcl] Other (See Comments) Unknown on pt's chart from outside facility Pertinent PMH: Patient Active Problem List Diagnosis Code ??? Malignant neoplasm of overlapping sites of bladder C67.8 ??? 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 Onto table supine. All monitors, O2, safety strap in place. Med's per protocol. documented in this encounter H&P Notes * John Kenney DO - 11/27/2019 6:44 AM EDT INTERVENTIONAL RADIOLOGY FOCUSED H&P: Procedure: Planned procedure: Chest Port - Single Lumen Placement The patient's history and physical exam have been reviewed and completed. There has been no interval change from that of the pre-operative history and physical exam done within the last 30 days. Physical Exam: Cardiovascular: Regular, Normal Pulmonary: Breath sounds clear to auscultation The planned procedure (and sedation plan if appropriate) , its benefits and risks, and alternativeswere discussed with the patient. The patient consented to the procedure. PRE-SEDATION ASSESSMENT: Sedation Plan: moderate (conscious sedation) ASA: 3: Patient with severe systemic disease Mallampati: II: tonsillar pillars are blocked by the tongue Confirm NPO status: Yes History of anesthetic complications: No Current medications reviewed: Yes Allergies reviewed: Yes Source Note - John Kenney - 11/16/2019 4:09 PM EDT Images from the original note were not included. INTERVENTIONAL RADIOLOGY FOCUSED H&P and PRE-PROCEDURE NOTE: PCP: Subhash Dowling MD Referring Provider: Chanelle Kim Planned Procedure: Planned procedure: Chest Port - Single Lumen Placement Procedure Indication: Order Questions Answers Where will study be performed? [facility] Radiology [120] Prefered insertion location: No Preference Is the patient on anticoagulant / anitplatelet therapy ? Aspirin Reason for exam and clinical history: on chemotherapy infusions for bladder cancer Exam/Procedure requested: Mediport insertion Presenting Diagnosis/ Complaint: Wally Marinelli is a 69 y.o. male with muscular invasive bladder cancer. IR is consulted for chest port - single lumen placement for need for durable, long-term venousaccess for chemotherapy. Past Medical/Surgical History: Patient Active Problem List Diagnosis Code ??? Malignant neoplasm of overlapping sites of bladder C67.8 ??? 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 No past surgical history on file. Medications: Current Outpatient Medications on File Prior to Encounter Medication Sig Dispense Refill ??? albuterol 90 mcg/actuation HFA Aerosol Inhaler Inhale 2 puffs into the lungs every 4 hours as needed for Wheezing. Use with spacer ??? prochlorperazine (Compazine) 10 mg Tablet Take 1 tablet by mouth every 6 hours as needed for Nausea. 60 tablet 3 ??? atenoloL (Tenormin) 25 mg Tablet Take [...] facility-administered medications on file prior to encounter. Allergies: Wellbutrin [bupropion hcl] Social History and [...] Substance and Sexual Activity ??? Alcohol use: Not on file ??? Drug use: Not on file ??? Sexual activity: Not on file Lifestyle ??? Physical activity Days per week: Not on file Minutes per session: Not on file ??? Stress: Not on file Relationships ??? Social connections Talks on phone: Not on file Gets together: Not on file Attends anglican service: Not on file Active member of [...] Labs: Lab Results Component Value Date WBC 9.8 (H) 10/05/2019 HCT 47.3 10/05/2019 PLATELET 194 10/05/2019 BUN 14 10/05/2019 CREATININE 1.17 10/05/2019 ALKPHOS 172 (H) 10/05/2019 AST 16 10/05/2019 ALBUMIN 4.4 10/05/2019 BILITOT 0.3 10/05/2019 ALT 18 10/05/2019 PROT 7.3 10/05/2019 K 4.5 10/05/2019 Imaging: PET/CT - 10/05/19 Physical Exam: Pending (to be performed in angio the day of procedure) ASA: Pending (to be assessed in angio the day of procedure) Mallampati Class: Pending (to be assessed in angio the day of procedure) Assessment: 69 y.o. male with muscular invasive bladder cancer. IR is consulted for chest port - single lumen placement for need for durable, long-term venous access for chemotherapy. Plan: Plan Planned procedure: Chest Port - Single Lumen Placement Labs to be performed day of procedure: No labs Sedation: Moderate (Conscious sedation) Prophylactic antibiotic : Ancef Contrast: No contrast Additional medications for procedure: Lidocaine Medications to discontinue (and days held): None Planned access site: Right IJ Position: Supine Cytopathology presence needed: No Consent: Pending 11/16/2019 * John Kenney - 11/16/2019 4:09 PM EDT Images from the original note were not included. INTERVENTIONAL RADIOLOGY FOCUSED H&P and PRE-PROCEDURE NOTE: PCP: Subhash Dowling MD Referring Provider: Chanelle Kim Planned Procedure: Planned procedure: Chest Port - Single Lumen Placement Procedure Indication: Order Questions Answers Where will study be performed? [facility] Radiology [120] Prefered insertion location: No Preference Is the patient on anticoagulant / anitplatelet therapy ? Aspirin Reason for exam and clinical history: on chemotherapy infusions for bladder cancer Exam/Procedure requested: Mediport insertion Presenting Diagnosis/ Complaint: Wally Marinelli is a 69 y.o. male with muscular invasive bladder cancer. IR is consulted for chest port - single lumen placement for need for durable, long-term venousaccess for chemotherapy. Past Medical/Surgical History: Patient Active Problem List Diagnosis Code ??? Malignant neoplasm of overlapping sites of bladder C67.8 ??? 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 No past surgical history on file. Medications: Current Outpatient Medications on File Prior to Encounter Medication Sig Dispense Refill ??? albuterol 90 mcg/actuation HFA Aerosol Inhaler Inhale 2 puffs into the lungs every 4 hours as needed for Wheezing. Use with spacer ??? prochlorperazine (Compazine) 10 mg Tablet Take 1 tablet by mouth every 6 hours as needed for Nausea. 60 tablet 3 ??? atenoloL (Tenormin) 25 mg Tablet Take [...] facility-administered medications on file prior to encounter. Allergies: Wellbutrin [bupropion hcl] Social History and [...] Substance and Sexual Activity ??? Alcohol use: Not on file ??? Drug use: Not on file ??? Sexual activity: Not on file Lifestyle ??? Physical activity Days per week: Not on file Minutes per session: Not on file ??? Stress: Not on file Relationships ??? Social connections Talks on phone: Not on file Gets together: Not on file Attends anglican service: Not on file Active member of [...] Labs: Lab Results Component Value Date WBC 9.8 (H) 10/05/2019 HCT 47.3 10/05/2019 PLATELET 194 10/05/2019 BUN 14 10/05/2019 CREATININE 1.17 10/05/2019 ALKPHOS 172 (H) 10/05/2019 AST 16 10/05/2019 ALBUMIN 4.4 10/05/2019 BILITOT 0.3 10/05/2019 ALT 18 10/05/2019 PROT 7.3 10/05/2019 K 4.5 10/05/2019 Imaging: PET/CT - 10/05/19 Physical Exam: Pending (to be performed in angio the day of procedure) ASA: Pending (to be assessed in angio the day of procedure) Mallampati Class: Pending (to be assessed in angio the day of procedure) Assessment: 69 y.o. male with muscular invasive bladder cancer. IR is consulted for chest port - single lumen placement for need for durable, long-term venous access for chemotherapy. Plan: Plan Planned procedure: Chest Port - Single Lumen Placement Labs to be performed day of procedure: No labs Sedation: Moderate (Conscious sedation) Prophylactic antibiotic : Ancef Contrast: No contrast Additional medications for procedure: Lidocaine Medications to discontinue (and days held): None Planned access site: Right IJ Position: Supine Cytopathology presence needed: No Consent: Pending 11/16/2019 documented in this encounter Plan of Treatment Upcoming Encounters Date Type Department Care Team (Late st Contact Info) Description 08/15/2024 11:30 AM EST Office Visit Hematology/Oncology at [address] [address] Chanelle Kim [facility] [place] [address] Bee Curry STEAM CLEAN 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 OPERATOR [facility] [place] [address] documented as of this encounter Procedures Procedure Name Priority Date/Time Associated Diagnosis Comments IR MEDIPORT PLACEMENT Routine 11/27/2019 8:31 AM EDT 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 documented in this encounter Results * IR Mediport Placement (11/27/2019 8:31 AM EDT) Anatomical Region Laterality Modality X-Ray Angiograph y Narrative 11/27/2019 11:25 AM EDT Interventional Radiology Procedure Note Procedure: Subcutaneous venous port implant Indication: Bladder cancer, durable senior living central venous access for chemotherapy Procedure summary: 1.) Venous access with ultrasound guidance 2.) Tunneled port insertion under fluoroscopic guidance Pre-procedure: Informed consent for the procedure including risks, benefits and alternatives was obtained and time-out was performed prior to the procedure. The site was prepared and draped using all elements of maximal sterile barrier technique. ?? Sedation: Due to the painful nature of the procedure, patient received split doses of intravenous midazolam and fentanyl from the interventional radiology nurse while pulse, pressure, and oxygen saturation were continuously monitored. Technique: The right internal jugular vein was sonographically evaluated and determined to be patent. A permanent image was stored. Local anesthetic was administered. The vein was accessed via real-time ultrasound and micropuncture set with 21 gauge needle. A 0.018 wire was advanced into superior vena cava. The remainder of the procedure was performed under fluoroscopic guidance. A 4 Fr introducer sheath was placed and the wire exchanged for a 0.035 J wire. The wire was advanced into the inferior vena cava. 1% lidocaine and 2% lidocaine with epinephrine was then infiltrated in a caudal-lateral direction, and infiltrated over a 2x2 cm infraclavicular area for pocket creation. A 2 cm transverse incision was made in the right anterior chest wall, and with blunt dissection a pocket was created. A tunneler was then used to advance the catheter subcutaneously to the venous access site. A 4 Fr introducer sheath was exchanged for a peel-away sheath over the wire. The wire and inner obturator were removed and the catheter advanced into the superior vena cava under fluoroscopic guidance. The catheter was trimmed to appropriate length and attached to the port. The port was inserted into the pocket and the sheath was removed. Catheter tip location was identified and a permanent image was stored. The port flushed and aspirated well. ??The pocket was closed using a two-layer technique with 2-0 vicryl deep interrupted and 4-0 vicryl running sutures. The skin closed was with dermabond. The port was not left accessed. Medications: 1% lidocaine <10 mL subcut, 2% lidocaine with epinephrine <20 mL subcut, midazolam 2 mg IV, fentanyl 100 mcg IV Antibiotic prophylaxis: Cefazolin 2 g IV Contrast: None Fluoroscopy time: 0.31 minutes Estimated blood loss: 10 mL Complications: No immediate Impression: Implantation of power-injectable, Medcomp 8 Fr Dignity Mini Profile single-lumen port in right chest with tip in cavoatrial junction. The port may be used immediately. Plan: Patient to IR recovery unit, may discharge home when meets criteria. Service provider: Jason Lujan PA-C. Present during the intraservice time as documented by the interventional radiology nurse. 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 Redose every 8 hours if CrCl is less than 20. Total dose of ceFAZolin 2 grams, administered using two ceFAZolin 1g/50mL IV bags. Infuse each ceFAZolin 1g/50mL bag over 30 minutes (100 ml/hr) for total infusion time of 60 minutes. On the MAR, document administration of first bag using New Bag (1 of 2) MAR action for dose of 1g. On the MAR, document administration of second bag using Next Bag (2 of 2) MAR action for dose of 1g (resulting in total dose of 2g)., Angio/IR (Day of Procedure), Indication for (Active or Suspected): Prophylaxis New Bag (1 of 2) 11/27/2019 7:15 AM EDT 2 g 100 mL/hr fentaNYL 50 mcg/mL multi-dose injection 25-50 mcg, Intravenous, EVERY 3 MIN PRN, Starting on Wed11/27/19 at 0636, Until Wed11/27/19 at 0842, Pain, per unit protocol, - Start dose [...] and verbal order., Angio/IR (Intra-Procedure), Routine Given 11/27/2019 8:04 AM EDT 25 mcg Given 11/27/2019 7:52 AM EDT 25 mcg Given 11/27/2019 7:48 AM EDT 25 mcg lidocaine (XYLOCAINE) 10 mg/mL (1 %) injection 10 mg 10 mg, Subcutaneous, ONCE, 1 dose, On Wed11/27/19 at 0700, For use in Interventional Radiology (IR) only for procedure with direct provider supervision and verbal order., Angio/IR (Intra-Procedure), Routine Given 11/27/2019 8:02 AM EDT 10 mg lidocaine-EPINEPHrine 1 %-1:100,000 injection 20 mL 20 mL, Intradermal, ONCE, 1 dose, On Wed11/27/19 at 0700, For use in Interventional Radiology (IR) only for procedural sedation with direct provider supervision and verbal order., Angio/IR (Intra-Procedure), Routine Given 11/27/2019 8:12 AM E DT 20 mLs midazolam (PF) (VERSED) multi-dose injection 0.5-1 mg 0.5-1 mg, Intravenous, EVERY 3 MIN PRN, Starting on Wed11/27/19 at 0636, Until Wed11/27/19 at 0842, Sleep, - Start dose; 1 mg (Reduce [...] and verbal order., Angio/IR (Intra-Procedure), Routine Given 11/27/2019 8:04 AM EDT 0.5 mg Given 11/27/2019 7:52 AM EDT 0.5 mg Given 11/27/2019 7:48 AM EDT 0.5 mg sodium chloride 0.9 % (flush) flush 5 mL 5 mL, Intravenous, EVERY 12 HOURS, First dose on Wed11/27/19 at 0700, Until Discontinued, Angio/IR (Day of Procedure), Routine Given 11/27/2019 7:00 AM EDT 5 mLs sodium chloride 0.9% infusion 1,000 mL, at 100 mL/hr, Intravenous, CONTINUOUS, Starting on Wed11/27/19 at 0700, Until Wed11/27/19 at 0842, Angio/IR (Day of Procedure) New Bag 11/27/2019 7:00 AM EDT 1,000 mLs 100 mL/hr documented in this encounter Care Teams Engineer Station Mainline Relationship Specialty Start Date End Date Subhash Dowling MD [address] [place] [id number] PCP - General 06/03/10 documented as of this encounter
--- OUTSIDE RECORDS SUMMARY | 2024-08-15 01:38 | XMS_ITS | Encounter Summary ---
Author Organization Formerly [facility] Address [facility] [place] [address] Care Team Providers Care Movie Shot Camera Operator Name Role Phone Subhash Dowling MD Primary Care Provider [phone] Encounter Details Date Type Department Care Team (Late Contact Info) Description 09/25/2019 Telephone Radiation Oncology at [address] [phone] Noah Garcia Social History Tobacco Use Types [...] 11:30 AM EST Office Visit Hematology/Oncology at [address] [phone] Chanelle Kim [facility] [place] [address] Bee Curry [facility] [place] [address] documented as of this encounter Visit Diagnoses Not on filedocumented in this encounter Care Teams Movie Shot Camera Operator Relationship Specialty Start Date End Date Subhash Dowling MD [address] [place], [place] [address] PCP - General 06/03/10 documented as of this encounter
--- OUTSIDE RECORDS SUMMARY | 2024-08-15 01:38 | XMS_ITS | Encounter Summary ---
Author Organization [facility] [place] [address] Care Team Providers Care Sergeant Of Corrections Name Role Phone Subhash Dowling MD Primary Care Provider [phone] Encounter Details Date Type Department Care Team (Late Contact Info) Description 10/10/2019 Orders Only Hematology/Oncology at [address] [phone] Aries Quiñones MD [facility] [place] [address] Social History Tobacco Use Types Packs/Day Years [...] AM EST Office Visit Hematology/Oncology at [address] [phone] Chanelle Kim CASINO FLOORPERSON [facility] [place] [address] Bee Curry CASINO FLOORPERSON [facility] [place] [address] documented as of this encounter Visit Diagnoses Not on filedocumented in this encounter Care Teams Sergeant Of Corrections Relationship Specialty Start Date End Date Subhash Dowling MD [address] [place] [address] PCP - General 06/03/10 documented as of this encounter
--- OUTSIDE RECORDS SUMMARY | 2024-08-15 01:38 | XMS_ITS | Encounter Summary ---
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 Procedures IR Mediport Placement Chanelle Kim APRN [facility] [place] [address] [place] [address] Referral ID Status Reason Start Date Expiration Date V isits Requested Visits Authorized [id number] Closed Specialty Service Requested 11/07/2019 05/08/2021 1 1 Encounter Details Date Type Department Care Team (Late st Contact Info) Description 11/07/2019 9:30 AM EDT Office Visit Hematology/Oncology at [address] [phone] Aries Quiñones MD [facility] [place] [address] Chanelle Kim APRN [facility] [place] [address] 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 Social [...] Sign Reading Time Taken Comments Blood Pressure 120/69 11/07/2019 9:40 AM EDT Pulse 78 11/07/2019 9:40 AM EDT Temperature 36.5 ??C (97.7 ??F) 11/07/2019 9:40 AM ED T Respiratory Rate 16 11/07/2019 9:40 AM EDT Oxygen Saturation 99% 11/07/2019 9:40 AM EDT Inhaled Oxygen Concentration - - Weight 57.6 kg (127 lb) 11/07/2019 9:40 AM EDT Height 167.6 cm (5' 5.98) 11/07/2019 9:40 AM ED T Body Mass Index 20.51 11/07/2019 9:40 AM EDT documented in this encounter Progress Notes * Chanelle Kim, WAREHOUSE RECEIVER - 11/07/2019 9:30 AM EDT Images from the original [...] 3 appointments due to transportation problem. Interval History: Mr. Aguilar returns to clinic in [facility] today for follow up of bladder cancer. He is here today to continue chemotherapy. Denies any fevers, chills or signs of infection. [place] and [place] social support. He does have a [facility] coordinator Ketty Garcia who picks up his prescriptions and checks in on him. Overall he has done well with his treatments. Appetite is good. Maintaining his weight. Denies any nausea or vomiting. He has some mild constipation-takes laxatives as needed. No diarrhea. He is still smoking but has been cutting back. No rash or skin issues. He states he is taking fluids well. Small amount of blood when he urinates. Denies any burning or pain today. He feels he is emptying his bladder well. He does complain of some sorenessin his right arm where he had his last IV infusion- it is slightly red. Previous site in left arm was without problems. He refuses to go down to [facility] [place] portac[place] at this time. He does not have his own transportation and does not want to go by [facility]. PMH: GERD, hypertension, hypercholesterolemia, hernia, peripheral vascular disease, COPD, history of hernia repair, right hip fracture, Social History: Smoker 2 packs a day for total of more than 110 pack-year smoking history. Drinks 2-3 beers several times a week, sometimes he drinks hard liquor as well. He lives by himself. 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 Lives alone. He has 2 children but he is not in touch with them Family History: Noncontributory Allergies: Allergies Allergen Reactions ??? Wellbutrin [Bupropion Hcl] Other (See Comments) Unknown on pt's chart from outside facility Medications: Your Medications Accurate as of November 07, 2019 9:39 AM. If you have any questions, ask your nurse or doctor. Continued medications, unchanged Dose Details albuterol 90 mcg/actuation Hfaa Inhale 2 puffs into [...] needed for Pain. 50 mg Refills: 0 Review of Systems: Constitutional: [...] axillary nodes normal Neurologic: Normal Vitals BP 120/69 (Patient Position: Sitting) Pulse 78 Temp 36.5 ??C (97.7 ??F) (Temporal) Resp 16 Ht 167.6 cm (5' 5.98) Wt 57.6 kg (127 lb) SpO2 99% BMI 20.51 kg/m?? Pathology: 07/31/2019 Urinary bladder, site not specified, mass, TURBT: - High grade urothelial carcinoma, invasive into muscularis propria and asuncion-muscular ??bundle adipose tissue. - Focal urothelial carcinoma in situ Labs: 11/07/19- WBC-21.41 Hgb/Hct-13.9/40.4 Plt-302 ANC-16.16 BUN/Cr-16/1.23 Lytes [...] invasive Treatment: -07/31/[address] Hurley Mr. Aguilar is 69 years old gentleman [...] stoma therapist. Mr. Aguilar returns today for D1C2 of chemotherapy. He appears to be tolerating his treatments well.Denies any side effects from chemotherapy. No evidence of clinical toxicities. Burning with urination resolved today but he is still having a small amount of bleeding on occasion. Will continue treatments as prescribed. #Social situation: He is not able to read, has difficult social situation living alone and not having transportation, I do not know if he has official disability and what his insightis in his disease/prognosis Plan: 1. Proceed with D1C2 Cisplatin/Gemcitabine as scheduled today. 2. Dr. Armstrong-Urology will see patient between C 2 and C3 of chemotherapy with stoma therapist. We will also try to arrange for him to have a portacath put in while down at [facility]. 3. CBC,CMP, Mg in one week. 4. Follow up in one week with labs and infusion. Mr. Aguilar voiced understanding of the plan and was given an opportunity to ask questions which I answered to the best of my ability. Mr. Aguilar understands he can call the clinic between visits withany questions/concerns or new symptoms. Chanelle Kim MSN, WAREHOUSE RECEIVER, AOCNP Medical Oncology documented in this encounter Miscellaneous Notes * Addendum Note - Chanelle Kim APRN - 11/07/2019 9:30 AM EDTAddended by: CHANELLE KIM on: 11/07/2019 10:29 AM Modules accepted: Orders documented in this encounter Plan of Treatment Upcoming Encounters Date Type Department Care Team (Late st Contact Info) Description 08/15/2024 11:30 AM EST Office Visit Hematology/Oncology at [address] [phone] Chanelle Kim APRN [facility] [place] [address] Bee Curry APRN [facility] [place] [address] (work) documented as of this encounter Results * IR Mediport Placement (11/27/2019 8:31 AM EDT) Anatomical Region Laterality Modality X-Ray Angiograph y Narrative 11/27/2019 11:25 AM EDT Interventional Radiology Procedure Note Procedure: Subcutaneous venous port implant Indication: Bladder cancer, durable mcc central venous access for chemotherapy Procedure summary: [...] Stephan Collier MD 11/27/2019 Chanelle Kim APRN IMG IR ORDERABLES documented in this encounter Visit Diagnoses Diagnosis 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
--- OUTSIDE RECORDS SUMMARY | 2024-08-15 01:38 | XMS_ITS | Encounter Summary ---
Author Organization Formerly [facility] [place] [address] Care Team Providers Care Program Project Manager Name Role Phone Subhash Dowling MD Primary Care Provider [phone] Encounter Details Date Type Department Care Team (Late Contact Info) Description 10/06/2019 Orders Only [place]ematology [place] [phone] Aries Quiñones MD [facility] DR HEMATOLOGY [place] [address] Social History Tobacco Use Types Packs/Day Years [...] AM EST Office Visit Hematology/Oncology at [address] [phone] Chanelle Kim, [facility] [place] [address] Bee Curry [facility] [place] [address] documented as of this encounter Visit Diagnoses Not on filedocumented in this encounter Care Teams Program Project Manager Relationship Specialty Start Date End Date Subhash Dowling MD [address] [place] [address] PCP - General 06/03/10 documented as of this encounter
--- OUTSIDE RECORDS SUMMARY | 2024-08-15 01:38 | XMS_ITS | Encounter Summary ---
Author Organization [facility] [place] [address] Care Team Providers Care Cable Coverer Name Role Phone Subhash Dowling MD Primary Care Provider [phone] Reason for Visit * Reason Onset Date Comments Other 11/14/2019 transportation Encounter Details Date Type Department Care Team (Late Contact Info) Description 11/14/2019 Telephone Hematology/Oncology at [address] [phone] Nadia Mueller MSW OFFICE OF CARE MANAGEMENT [...] Telephone Encounter - Nadia Mueller MSW - 11/14/2019 9:49 AM EDT TC from [facility] re pt's treatment schedule and ride issues. Requesting clarification of pt's treatment dates and times and will send a corrected schedule to [facility] so rides can be arranged. Updated Bryanna Coyle RN, Processing Specialist and clinical secretaries re this. documented in this encounter Plan of Treatment Upcoming Encounters Date Type Department Care Team (Late st Contact Info) Description 08/15/2024 11:30 AM EST Office Visit Hematology/Oncology at [address] [phone] Chanelle Kim, [facility] [place] [address] Bee Curry [facility] [place] [address] documented as of this encounter Visit Diagnoses Not on filedocumented in this encounter Care Teams Cable Coverer Relationship Specialty Start Date End Date Subhash Dowling MD [address] [place] [id number] PCP - General 06/03/10 documented as of this encounter
--- OUTSIDE RECORDS SUMMARY | 2024-08-15 01:38 | XMS_ITS | Encounter Summary ---
Author Organization [facility] [place] [address] Care Team Providers Care Surgical Oncologist Name Role Phone Subhash Dowling MD Primary Care Provider Encounter Details Date Type Department Care Team (Latest Contact Info) Description 03/21/2019 8:50 AM EDT - 03/21/2019 11:59 PM EDT Hospital Encounter [place] [phone] Subhash Dowling MD [address] [place] [address] Chest pain, unspecified type Discharge Disposition: Home Social History [...] AM EST Office Visit Hematology/Oncology at [address] [phone] Chanelle Kim STRATEGIC DEVELOPMENT MANAGER [facility] [place] [address] Bee Curry STRATEGIC DEVELOPMENT MANAGER [facility] [place] [address] documented as of this encounter Procedures Procedure Name Priority Date/Time Associated Diagnosis Comments ECHO COMPLETE Routine 03/21/2019 9:14 AM EDT Chest pain, unspecified type documented in this encounter Results * ECHO COMPLETE (03/21/2019 9:14 AM EDT) EF 65 HEARTLAB SYSTEM Anatomical Region Laterality Modality Other 03/21/2019 Narrative 03/21/2019 9:44 AM EDT Procedure: ?Transthoracic Echocardiogram Patient: ?YVES LO . . ?(Age): 1950(68y) Med Rec#: ? [id number] ?Sex: ?M ? Site Loc: ? [facility] ??Ht / Wt: ??168(cm)/61(kg) Pt. Loc: ?Echo Lab ?BSA: ?1.69 Study Date: ?? 03/21/2019 ?Pt. Type: Outpatient Tape: ? Referring: [facility] Echo Lab Referrin Referring: [facility] Reading: Jesse Ibarra ([id number]) Kiln Feeder: [id number] Diagnosis: *Chest pain, unspecified (R07.9) Rhythm: ? Sinus BP: ? 127/82 SUMMARY: 1. Left ventricular chamber size, wall thickness, global and segmental systolic function are within normal limits. Ejection fraction is estimated to be 65%. 2. Right ventricular chamber size, wall thickness, and systolic function are within normal limits. 3. The left atrium is normal in size. 4. No significant valvular abnormalities. 5. Other details as noted below. 6. No prior study available for comparison. Findings ? : Study Quality: ? Adequate Left Ventricle: ? Left ventricular chamber size, wall thickness, global and segmental systolic function are within normal limits. Ejection fraction is estimated to be 65%. ?No ventricular septal defect is visualized. ?Left ventricular diastolic function is normal. ?Doppler assessment is consistent with normal left sided filling pressure. Left Atrium: ? The left atrium is normal in size. ?No atrial septal defect is visualized. Right Ventricle: ? Right ventricular chamber size, wall thickness, and systolic function are within normal limits. ?No pulmonary hypertension is noted. ?The estimated pulmonary artery systolic pressure is 24 mmHg. Right Atrium: ? The right atrium appears normal. Aortic Valve: ? The aortic valve is tricuspid. ?The aortic valve leaflets are mildly thickened. ?The non coronary cusp of the aortic valve is thickened. ?There is no evidence of aortic valve stenosis. ?There is no evidence of aortic regurgitation. Mitral Valve: ? The mitral valve leaflets are mildly thickened. ?There is trace mitral regurgitation present. Tricuspid Valve: ? The tricuspid valve appears normal in structure and function. ?There is trace tricuspid regurgitation present. Pulmonic Valve: ? The pulmonic valve appears normal in structure and function. Pericardium: ? The pericardium appears normal and there is no evidence of a pericardial effusion. Aorta: ? The aortic root is normal in size. ?The ascending aorta is normal in size. ?The aortic arch was not well visualized. Pulmonary Artery: ? The main pulmonary artery appears normal. ?There is no evidence of a patent ductus arteriosus present. Chambers 2D ?Value ?Units (Range) ? IVSd (2D) ? 0.8 ?cm ? LVPWd (2D) ?0.8 ?cm ? IVS:LVPW ratio (2D) 1 ?ratio ? RWT (2D) ?0.4 ?ratio ? RWT PW (2D) ? 0.4 ?ratio ? LVIDd (2D) ?3.8 ?cm ? LVIDs (2D) ?2.5 ?cm ? LVIDd (2D) index ?2.3 ?cm/m2 ? LVIDs (2D) index ?1.5 ?cm/m2 ? LV FS (2D) ?34 ? % ? EF Teichholz (2D) ?? 64 ? % ? Ao root diameter (2D3.2 ?cm (2.1 - 3.6) ? Ascending Ao ?3.2 ?cm (2 - 3.5) ? Volumes/Mass ?Value ?Units (Range) ? LA Area 4 CH ?10 ? cm2 (<21) ? LA ESV BP (A/L) inde18 ? ml/m2 ? RA AREA 4CH ? 8 ?cm2 ? LV mass (2D) ?86 ? g ? LV mass (2D) index ??50.9 ? g/m2 ? Diastolic/Systolic Function ?Value ?Units (Range) ? MV E-wave Vmax ?0.7 ?m/sec ? MV deceleration [id number] ?msec ? MV A-wave Vmax ?0.8 ?m/sec ? MV E:A ratio ?0.9 ?ratio ? LV septal e' Vmax ?? 0.1 ?m/sec ? LV lateral e' Vmax ??0.1 ?m/sec ? LV average e' Vmax ??0.1 ?m/sec ? LV E:e' septal ratio10 ? ratio ? LV E:e' lateral rati7.8 ?ratio ? LV average E:e' rati8.8 ?ratio ? Tricuspid Valve ?Value ?Units (Range) ? TR Vmax ? 2.3 ?m/sec ? TR peak gradient ?21.2 ? mmHg ? RAP ? 3 ?mmHg ? RVSP ?24 ? mmHg ? Wall Motion: Segment Name ?Rest ? Base-Anteroseptal ?? Normal ? Base-Anterior ? Normal ? Base-Anterolateral ??Normal ? Base-Posterolateral Normal ? Base-Inferior ? Normal ? Base-Inferoseptal ?? Normal ? Mid-Anteroseptal ?Normal ? Mid-Anterior ?Normal ? Mid-Anterolateral ?? Normal ? Mid-Posterolateral ??Normal ? Mid-Inferior ?Normal ? Mid-Inferoseptal ?Normal ? Dawn-Septal ? Normal ? Dawn-Anterior ? Normal ? Dawn-Lateral ?Normal ? Dawn-Inferior ? Normal ? Dawn-Tip ?Normal ? This report has been electronically signed by: Jesse Ibarra MD ? 03/21/2019 09:43:21 Images reviewed and interpretation verified [facility] Cardiac Ultrasound Laboratory Procedure Note Jesse Ibarra MD - 03/21/2019 Procedure: Transthoracic Echocardiogram Patient: YVES Blanton (Age): 1950(68y) Med Rec#: [id number] Sex: M Site Loc: [facility] Ht / Wt: 168(cm)/61(kg) Pt. Loc: Echo Lab BSA: 1.69 Study Date: 03/21/2019 Pt. Type: Outpatient Tape: Referring: [facility] Echo Lab Referrin Referring: [facility] Reading: Jesse Ibarra ([id number]) Kiln Feeder: [id number] Diagnosis: *Chest pain, unspecified (R07.9) Rhythm: Sinus BP: 127/82 SUMMARY: 1. Left ventricular chamber size, wall thickness, global and segmental systolic function are within normal limits. Ejection fraction is estimated to be 65%. 2. Right ventricular chamber size, wall thickness, and systolic function are within normal limits. 3. The left atrium is normal in size. 4. No significant valvular abnormalities. 5. Other details as noted below. 6. No prior study available for comparison. Findings : Study Quality: Adequate Left Ventricle: Left ventricular chamber size, wall thickness, global and segmental systolic function are within normal limits. Ejection fraction is estimated to be 65%. No ventricular septal defect is visualized. Left ventricular diastolic function is normal. Doppler assessment is consistent with normal left sided filling pressure. Left Atrium: The left atrium is normal in size. No atrial septal defect is visualized. Right Ventricle: Right ventricular chamber size, wall thickness, and systolic function are within normal limits. No pulmonary hypertension is noted. The estimated pulmonary artery systolic pressure is 24 mmHg. Right Atrium: The right atrium appears normal. Aortic Valve: The aortic valve is tricuspid. The aortic valve leaflets are mildly thickened. The non coronary cusp of the aortic valve is thickened. There is no evidence of aortic valve stenosis. There is no evidence of aortic regurgitation. Mitral Valve: The mitral valve leaflets are mildly thickened. There is trace mitral regurgitation present. Tricuspid Valve: The tricuspid valve appears normal in structure and function. There is trace tricuspid regurgitation present. Pulmonic Valve: The pulmonic valve appears normal in structure and function. Pericardium: The pericardium appears normal and there is no evidence of a pericardial effusion. Aorta: The aortic root is normal in size. The ascending aorta is normal in size. The aortic arch was not well visualized. Pulmonary Artery: The main pulmonary artery appears normal. There is no evidence of a patent ductus arteriosus present. Chambers 2D Value Units (Range) IVSd (2D) 0.8 cm LVPWd (2D) 0.8 cm IVS:LVPW ratio (2D) 1 ratio RWT (2D) 0.4 ratio RWT PW (2D) 0.4 ratio LVIDd (2D) 3.8 cm LVIDs (2D) 2.5 cm LVIDd (2D) index 2.3 cm/m2 LVIDs (2D) index 1.5 cm/m2 LV FS (2D) 34 % EF Teichholz (2D) 64 % Ao root diameter (2D3.2 cm (2.1 - 3.6) Ascending Ao 3.2 cm (2 - 3.5) Volumes/Mass Value Units (Range) LA Area 4 CH 10 cm2 (<21) LA ESV BP (A/L) inde18 ml/m2 RA AREA 4CH 8 cm2 LV mass (2D) 86 g LV mass (2D) index 50.9 g/m2 Diastolic/Systolic Function Value Units (Range) MV E-wave Vmax 0.7 m/sec MV deceleration [id number] msec MV A-wave Vmax 0.8 m/sec MV E:A ratio 0.9 ratio LV septal e' Vmax 0.1 m/sec LV lateral e' Vmax 0.1 m/sec LV average e' Vmax 0.1 m/sec LV E:e' septal ratio10 ratio LV E:e' lateral rati7.8 ratio LV average E:e' rati8.8 ratio Tricuspid Valve Value Units (Range) TR Vmax 2.3 m/sec TR peak gradient 21.2 mmHg RAP 3 mmHg RVSP 24 mmHg Wall Motion: Segment Name Rest Base-Anteroseptal Normal Base-Anterior Normal Base-Anterolateral Normal Base-Posterolateral Normal Base-Inferior Normal Base-Inferoseptal Normal Mid-Anteroseptal Normal Mid-Anterior Normal Mid-Anterolateral Normal Mid-Posterolateral Normal Mid-Inferior Normal Mid-Inferoseptal Normal Dawn-Septal Normal Dawn-Anterior Normal Dawn-Lateral Normal Dawn-Inferior Normal Dawn-Tip Normal This report has been electronically signed by: Jesse Ibarra MD 03/21/2019 09:43:21 Images reviewed and interpretation verified [facility] Cardiac Ultrasound Laboratory Subhash Dowling MD ECHO ORDERABLES documented in this encounter Visit Diagnoses Diagnosis Chest pain, unspecified type documented in this encounter Care Teams Surgical Oncologist Relationship Specialty Start Date End Date Subhash Dowling MD [address] [place] [id number] PCP - General 06/03/10 documented as of this encounter
--- OUTSIDE RECORDS SUMMARY | 2024-08-15 01:38 | XMS_ITS | Encounter Summary ---
Author Organization [facility] Address [facility] [place] [address] Care Team Providers Care Mill Controller Name Role Phone Subhash Dowling MD Primary Care Provider [phone] Encounter Details Date Type Department Care Team (Late Contact Info) Description 08/29/2019 External Results [place] [id number] Provider, Scanning Social History Tobacco Use Types Packs/Day Years [...] 11:30 AM EST Office Visit Hematology/Oncology at [address] [phone] Chanelle Kim APRN [facility] [place] [address] Bee Curry BOTTLE CLEANER [facility] [place] [address] documented as of this encounter Procedures Procedure Name Priority Date/Time Associated Diagnosis Comments SURGICAL PATHOLOGY SCAN Routine 08/29/2019 documented in this encounter Results * Scan Doc: Surgical Pathology (08/29/2019) Aries Quiñones MD MEDIA MGR SCAN EXT O RDR/RSLT documented in this encounter Visit Diagnoses Not on filedocumented in this encounter Care Teams Mill Controller Relationship Specialty Start Date End Date Subhash Dowling MD [address] [place] [address] PCP - General 06/03/10 documented as of this encounter
--- OUTSIDE RECORDS SUMMARY | 2024-08-15 01:38 | XMS_ITS | Encounter Summary ---
Author Organization [facility] [place] [address] Care Team Providers Care Furniture Arranger Name Role Phone Subhash Dowling MD Primary Care Provider [phone] Reason for Visit * Reason Onset Date Comments Other 10/17/2019 follow up Encounter Details Date Type Department Care Team (Late st Contact Info) Description 10/17/2019 Telephone Hematology/Oncology at [address] [phone] Nadia Mueller MSW OFFICE OF CARE MANAGEMENT Other (follow up) Social History Tobacco Use Types Packs/Day Years Used Date Smoking Tobacco: Every Day Cigarettes 2 50 Smokeless Tobacco: Never Sex and Gender Information Value Date Recorded Sex Assigned at Not on file Gender Identity Not on file Sexual Orientation Not on file documented as of this encounter Miscellaneous Notes * Telephone Encounter - Nadia Mueller MSW - 10/17/2019 1:01 PM EDT TC follow up with pt during infusion today (DREDGE LEVER OPERATOR working remotely). Pt did arrive to lab by RCT but walked down from Lab to [facility]. Informed pt not to walk down as a ride is schedulde for his from lab to [facility]. Not sure if this was a patient issue or RCT driver guard issue.TC RCT to flag this and they will look into it. Again stressed to pt not to walk down from the lab.Clarified with RCT what time pt will be done for his trip home today which they had scheduled. Pt's treatment scheduled was faxed to [facility] on 10-10-19 so rides can be scheduled. Pt reports he is doing fairly well at home. His friend Boubacar is staying with him. Per Denise Lamb,RN pt has a [facility] worker who is in contact with pt. DREDGE LEVER OPERATOR will follow up with [facility] worker. Will continue to follow for support and resources. documented in this encounter Plan of Treatment Upcoming Encounters Date Type Department Care Team (Late st Contact Info) Description 08/15/2024 11:30 AM EST Office Visit Hematology/Oncology at [address] [phone] [facility] [place] [address] Bee Curry [facility] [place] [address] documented as of this encounter Visit Diagnoses Not on filedocumented in this encounter Care Teams Furniture Arranger Relationship Specialty Start Date End Date Subhash Dowling MD [address] [place] [phone] PCP - General 06/03/10 documented as of this encounter
--- OUTSIDE RECORDS SUMMARY | 2024-08-15 01:38 | XMS_ITS | Encounter Summary ---
Author Organization [facility] Address [facility] [place] [address] Care Team Providers Care Solar Project Coordination Specialist Name Role Phone Subhash Dowling MD Primary Care Provider [phone] Encounter Details Date Type Department Care Team (Late st Contact Info) Description 11/14/2019 9:30 AM EDT Office Visit Hematology/Oncology at [address] [phone] Aries Quiñones MD [facility] [address] HEMATOLOGY [place] [address] Chanelle Kim APRN [facility] [place] [address] 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 Aguilar returns to clinic in [facility] today for follow up of bladder cancer and day 8 of second cycle of chemotherapy... Denies any fevers, chills or signs of infection. Mr. Aguilar lives alone in [place] and has little social support. He does have a [facility] coordinator Ketty Garcia who picks up his prescriptions and checks in on him. Overall he has done well with his treatments. Appetite is good. Maintaining his weight. Denies any nausea or vomiting. He has some mild constipation- takes laxatives as needed. No diarrhea. He is [...] as well. He lives by himself. 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 Lives alone. He has 2 children but he is not in touch with them Family History: Noncontributory Allergies: Allergies Allergen Reactions ??? Wellbutrin [Bupropion Hcl] Other (See Comments) Unknown on pt's chart from outside facility Medications: Your Medications Accurate as of November 14, 2019 9:59 AM. If you have any questions, ask [...] axillary nodes normal Neurologic: Normal Vitals BP 122/69 (Patient Position: Sitting) Pulse 70 Temp 36.4 ??C (97.6 ??F) (Temporal) Resp 16 Ht 167.6 cm (5' 5.98) Wt 57.6 kg (127 lb) SpO2 98% BMI 20.51 kg/m?? Pathology: 07/31/2019 Urinary bladder, site not specified, mass, TURBT: - High grade urothelial carcinoma, invasive into muscularis propria and asuncion-muscular ??bundle adipose tissue. - Focal urothelial carcinoma in situ Labs: 11/14/2019 WBC 11.41, hemoglobin 13.0, platelet count 199, ANC 8.48, BUN 20, creatinine 1.28, calcium 9.1, TB 0.4, AST 13, ALT 21, alkaline [...] stoma therapist. Mr. Aguilar returns today for D8C2 of chemotherapy. He appears to be tolerating [...] his insightis in his disease/prognosis #Mediport placement: Arranged on November 26 Plan: 1. Proceed with D8C2 Cisplatin/Gemcitabine as scheduled today. 2. Dr. Armstrong-Urology will see patient with stoma therapist November 26. 3. Mediport placement on November 26 4. Follow up in 2 weeks with labs and infusion. Mr. 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
--- OUTSIDE RECORDS SUMMARY | 2024-08-15 01:38 | XMS_ITS | Encounter Summary ---
Author Organization [facility] [place] [address] Care Team Providers Care Nursing Home Physician Name Role Phone Subhash Dowling MD Primary Care Provider [phone] Encounter Details Date Type Department Care Team (Latest Contact Info) Description 08/29/2019 9:42 AM EST - 08/29/2019 11:59 PM EST Hospital [place] [phone] Discharge Disposition: Home Social History Tobacco Use [...] 11:30 AM EST Office Visit Hematology/Oncology at [address] [phone] Chanelle Kim JAVA DEVELOPER CONSULTANT [facility] [place] [address] Bee Curry JAVA DEVELOPER CONSULTANT [facility] [place] [address] documented as of this encounter Procedures Procedure Name Priority Date/Time Associated Diagnosis Comments SURGICAL PATHOLOGY REPORT Routine 08/29/2019 9:42 AM EST documented in this encounter Results * Surgical Pathology Report (08/29/2019 9:42 AM EST) Final Diagnosis [id number] ? Location: [facility] The signing pathologist has (i) examined the relevant preparation(s) for the specimen(s) and (ii) rendered or confirmed the diagnosis(es). . ?Surgical Pathology DIAGNOSIS CONSULTATION CASE Outside slide(s) labeled [id number], collection date 07/31/2019. Urinary bladder, site not specified, mass, TURBT: - High grade urothelial carcinoma, invasive into muscularis propria and asuncion-muscular bundle adipose tissue. - Focal urothelial carcinoma in situ. Electronically signed by: ??Kalani Cabrera MD Verified: ??08/31/2019 ?Pathologist Performed at: ??-[facility] Dept. of Pathology, [place], [place] DISCUSSION Per outside report, the tumor cells are positive for GATA3 and negative for NKX3.1 and Pax8 on immunostains(the immunostaining slides were not submitted for review). ADDITIONAL STUDIES Whole slide scan: [id number] CLINICAL INFORMATION Specimen Submitted: CONSULTATION CASE A - 13 slide(s) labeled [id number], collection date 07/31/2019. [id number] Report to: [facility] Surgical Pathology Department [facility], [facility], 2nd Floor [address], [place] ??[address] [facility] ([facility]) pathology slide(s) are reviewed. ??Refer to Diagnosis and Specimen Submitted for specific case information. For the full text of the [facility] report(s) please refer to Non- Documentation Pathology in the electronic health record (eDH). 08/31/2019 7:44 PM EST [facility] Consult Case 08/29/2019 9:42 AM EST 08/29/2019 9:42 AM EST Aries Quiñones MD PATHOLOGY/CYTOLOGY O [facility] Performing Organization Address City/State/[facility] Co de Phone Number [facility] [place] [address] documented in this encounter Visit Diagnoses Not on filedocumented in this encounter Care Teams Nursing Home Physician Relationship Specialty Start Date End Date Subhash Dowling MD [address] [place] [phone] PCP - General 06/03/10 documented as of this encounter
--- OUTSIDE RECORDS SUMMARY | 2024-08-15 01:38 | XMS_ITS | Encounter Summary ---
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 Aries Quiñones MD [facility] [address] [place] [address] [facility] Hem Onc Office [address] [place] [phone] Referral ID Status Reason Start Date Expiration Date Visits Re quested Visits Authorized [id number] Closed 10/06/2019 10/05/2020 1 1 Encounter Details Date Type Department Care Team (Late st Contact Info) Description 10/24/2019 11:30 AM EDT Infusion Hematology Oncology at [address] [phone] Bladder cancer metastasized to pelvic [...] as of this encounter Progress Notes * Denise Lamb RN - 10/24/2019 11:30 AM EDT INFUSION THERAPY ADMINISTRATION NOTES TIME TREATMENT STARTED: 1115 TIME TREATMENT ENDED: 1500 DIAGNOSIS: bladder cancer PROTOCOL:na CYCLE #: 1 day 8 REASON FOR VISIT: cisplat/gemzar SUBJECTIVE Gt Aguilar offers no complaints. OBJECTIVE LAB DATA: Labs reviewed and found adequate for treatment. Pre administration: Chemotherapy orders independently verified for drug name, route, and dosage per patient's height, weight and BSA by Briana Lamb RN and Briana schroeder pharmacist. onpro applied to left upper arm, it will need to be removed at 7 pm. Pt given card with time on it.Pt repeated back time. REACTIONS (DESCRIPTION, TIME, INTERVENTION AND EFFECTIVENESS) none ASSESSMENT Gt Aguilar was awake, alert and he tolerated treatment well. PLAN Return to clinic in two weeks. documented in this encounter Plan of Treatment Upcoming Encounters Date Type Department Care Team (Late st Contact Info) Description 08/15/2024 11:30 AM EST Office Visit Hematology/Oncology at [address] [phone] Chanelle Kim, [facility] [place] [address] [facility] [address] documented as of this encounter Visit Diagnoses [...] over 2 Minutes, ONCE, 1 dose, On Wed10/24/19 at 1145, Alternative administration of IV push over 2 minutes is a recommendation from the engineering consultant. Administer prior to chemotherapy., Routine Given 10/24/2019 11:52 AM EDT 130 mg CISplatin (PLATINOL) 58 mg in sodium chloride 0.9% 308 mL chemo infusion 58 mg (rounded from 58.45 mg = 35 mg/m2/dose ? 1.67 m2 Treatment Plan BSA from Recorded weight), Intravenous, ONCE, 1 dose, On Wed10/24/19 at 1230, Administer over 60 Minutes New Bag 10/24/2019 12:51 PM EDT 58 mg 308 mL/hr dexamethasone (Decadron) tablet 10 mg 10 mg, Oral, ONCE, 1 dose, On Wed10/24/19 at 1145, Administer prior to chemotherapy, Routine Given 10/24/2019 11:51 AM EDT 10 mg GEMcitabine 1,600 mg in sodium chloride 0.9% 292.1053 mL chemo infusion 1,600 mg, Intravenous, ONCE, 1 dose, On Wed10/24/19 at 1230, Administer over 30 Minutes, Warning Vesicant/Irritant Medication , Dose Ordered = 1670 mg (1000 mg/m2). Pharmacist rounded dose per procedure. New Bag 10/24/2019 12:03 PM EDT 1,600 mg 584.2 mL/hr magnesium sulfate 1g in dextrose 5% 100mL 1 g, Intravenous, EVERY HOUR, 2 doses, First dose on Wed10/24/19 at 1330, Last dose on Wed10/24/19 at 1400, Administer over 60 Minutes, Total dose is 2 grams. Post - CISplatin New Bag 10/24/2019 1:52 PM EDT 1 g 100 mL/hr New Bag 10/24/2019 12:54 PM EDT 1 g 100 mL/hr palonosetron (ALOXI) injection 0.25 mg 0.25 mg, Intravenous, ONCE, 1 dose, On Wed10/24/19 at 1145, Administer over 30 seconds. Administer prior to chemotherapy, Routine Given 10/24/2019 11:56 AM EDT 0.25 mg pegfilgrastim (NEULASTA ONPRO) injection kit 6 mg, Subcutaneous, ONCE, 1 dose, On Wed10/24/19 at 1145, Allow the prefilled syringe co-packaged with the on-body injector to reach room temperature at least 30 minutes prior to administration., Routine, This agent is restricted to outpatient use. Is this drug being given as an outpatient? Yes Given 10/24/2019 2:48 PM EDT 6 mg Left Arm sodium chloride 0.9% infusion 1,000 mL, at 500 mL/hr, Intravenous, CONTINUOUS, Starting on Wed10/24/19 at 1145, Until Wed10/24/19 at 1344, Pre CISplatin New Bag 10/24/2019 11:27 AM EDT 1,000 mLs 500 mL/hr sodium chloride 0.9% with potassium chloride 20 mEq infusion 1,000 mL, at 500 mL/hr, Intravenous, CONTINUOUS, Starting on Wed10/24/19 at 1330, Until Wed10/24/19 at 1529, Post - CISplatin New Bag 10/24/2019 12:51 PM EDT 1,000 mLs 500 mL/hr documented in this encounter Care Teams Returned Goods Inspector Relationship Specialty Start Date End Date Subhash Dowling MD [address] [place] [id number] PCP - General 06/03/10 documented as of this encounter
--- OUTSIDE RECORDS SUMMARY | 2024-08-15 01:38 | XMS_ITS | Encounter Summary ---
Author Organization [facility] [place] [address] Care Team Providers Care Respiratory Therapy Aide Name Role Phone Subhash Dowling MD Primary Care Provider [phone] Reason for Visit * Reason Onset Date Comments Other 09/27/2019 follow up Encounter Details Date Type Department Care Team (Late st Contact Info) Description 09/27/2019 Telephone Hematology/Oncology at [address] [phone] Nadia Mueller MSW OFFICE OF CARE MANAGEMENT [...] Telephone Encounter - Nadia Mueller MSW - 09/27/2019 11:38 AM EDT Informed by Marcy Castillo, Clinical [place] that pt's appointments for scan at and follow up withDr. Quiñones have been arranged and she contact [facility] to set up his rides for these appointments. TC pt today re this. Spoke with pt and friend Derek Ramirez [phone]. Clarified Mr. Ramirez is a goodfriend to pt and is willing to help him as he needs. Reportedly Mr. Ramirez will be moving in with pt. Reviewed upcoming appointments and Mr. Ramirez put them on pt's calendar. Mr. Ramirez reports pt has a11th grade education but can not read and write. Pt wants to have Mr. Ramirez as his emergency contact and BIOLOGY SPECIALIST will ask front office staff to include this contact. Per pt and Mr. Ramirez pt is able to manage his daily chores and activities. He will be using RCT forrides. He manages his own finances and is able to manage his financial obligations. He does get assistance with food and all his utilities are included in his rent. Mr. Ramirez does help him with his paperwork. Pt reports he has had VNA services but is no longer on it. Informed pt and Mr. Ramirez of BIOLOGY SPECIALIST availability and will continue to follow for support and resources. documented in this encounter Plan of Treatment Upcoming Encounters Date Type Department Care Team (Late st Contact Info) Description 08/15/2024 11:30 AM EST Office Visit Hematology/Oncology at [address] [phone] Chanelle Kim, [facility] [place] [address] Bee Curry, [facility] [place] [address] documented as of this encounter Visit Diagnoses Not on filedocumented in this encounter Care Teams Respiratory Therapy Aide Relationship Specialty Start Date End Date Subhash Dowling MD [address] [place] [id number] PCP - General 06/03/10 documented as of this encounter
--- OUTSIDE RECORDS SUMMARY | 2024-08-15 01:38 | XMS_ITS | Encounter Summary ---
Author Organization [facility] [place] [address] Care Team Providers Care Fisher Dip Net Name Role Phone Subhash Dowling MD Primary Care Provider [phone] Reason for Visit * Reason Onset Date Comments Other 09/28/2019 ride cancellatio n Encounter Details Date Type Department Care Team (Late st Contact Info) Description 09/28/2019 Telephone Radiation Oncology at [address] [phone] Nadia Mueller MSW OFFICE OF CARE MANAGEMENT Other (ride cancellation) Social History Tobacco Use Types Packs/Day Years Used Date Smoking Tobacco: Every Day Cigarettes 2 50 Smokeless Tobacco: Never Sex and Gender Information Value Date Recorded Sex Assigned at Not on file Gender Identity Not on file Sexual Orientation Not on file documented as of this encounter Miscellaneous Notes * Telephone Encounter - Nadia Mueller MSW - 09/28/2019 10:03 AM EDT Informed pt does not need to travel to [facility] for his 10-09-[address] Schaeffer. TC RCT to cancel this trip. TC pt to let him know that TERMINAL MAKEUP OPERATOR cancelled the trip. Pt understands Dr. Schaeffer will be calling him on 10-09-19. documented in this encounter Plan of Treatment Upcoming Encounters Date Type Department Care Team (Late st Contact Info) Description 08/15/2024 11:30 AM EST Office Visit Hematology/Oncology at [address] [phone] Chanelle Kim, [facility] [address] Bee Curry [facility] [place] [address] documented as of this encounter Visit Diagnoses Not on filedocumented in this encounter Care Teams Fisher Dip Net Relationship Specialty Start Date End Date Subhash Dowling MD [address] [place] [phone] PCP - General 06/03/10 documented as of this encounter
--- OUTSIDE RECORDS SUMMARY | 2024-08-15 01:38 | XMS_ITS | Encounter Summary ---
Author Organization [facility] [place] [address] Care Team Providers Care Senior Statistical Programmer Name Role Phone Subhash Dowling MD Primary Care Provider [phone] Encounter Details Date Type Department Care Team (Late st Contact Info) Description 09/19/2019 Telephone Hematology [place] [phone] Kalyani Burgos RN Social History Tobacco Use Types Packs/Day Years Used Date Smoking Tobacco: Never Assessed Sex and Gender Information Value Date Recorded Sex Assigned at Not on file Gender Identity Not on file Sexual Orientation Not on file documented as of this encounter Miscellaneous Notes * Telephone Encounter - Kalyani Burgos RN - 09/19/2019 9:49 AM EDT Nurse Navigator Assessment Insurance / Financial Concerns: Transportation Physical Health Concerns: Urinary Changes, Education-Disease Process, Treatment, Medication Social / Communication / Cultural Support: Poor Health Literacy, Inability to Read/Write Supportive Services: Supervisor Receiving And Processing Appointments Scheduled / Pending with Dates If Known: Medical Oncology, Radiation Oncology Treatment Compliance Issues: Does Not Understand Treatment Plan/ Schedule/ Procedure I called pt to provide navigation services. Gt Aguilar verified and confirmed his . I introduced myself and purpose of my call. Gt Jeff reported that he started noticing an on and off burning sensation 8-9 weeks ago whenhe urinates. He saw his PCP and was referred to Dr Hurley. He had his TURBT on 08/29/19 that showed high grade invasive urothelial carcinoma. I explored with patient about his understanding of his cancer. Pt reported that they took the cancer out 4-5 weeks ago and now it has come back. I explored a ny other information that he received when he had his procedure. Gt responded, I cannot remember. I explained the procedure to Gt and the referrals for radiation oncology and medical oncologyfrom Dr Hurley`s office. Julian is single. He was once and has two (2) adult children that live 80 miles away form him. He has grandchildren. 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 He is on social security ($800/mo), has food stamps($192/mo). He is renting an apartment (rent-$238/mo). His main source of income is social security.MINGO Baldwin, at [facility] is assisting him with his transportation. He lives two (2) hours away from [facility] and one (1) hour away from [facility]. Gt verbalized that his ride for his appoinment with Dr Quiñones tomorrow, 09/20/19 and radiation oncology with Dr Schaeffer on 09/27/19 were arranged with the help of Nadia Mueller. I encouraged Gt to call his ride to verify and confirm hisride for tomorrow`s appointment. Gt agreed with plan. Gt is a current smoker. He has been smoking a pack per day for years. I educated Gt on our smoking cessation resource and the effects of smoking. I also discussed how smoking can affect with radiation treatment. Gt verbalized that he tried on quitting to smoke before but the was a financial issue associated with quitting. I told Gt that I will relay our discussion with Dr Quiñones. I also discussed of sending an educational materials about bladder cancer to Gt and offered to take my name and write my contact information. Gt responded, I cannot spell too good. My plan isto personally meet with Gt during his appointment with Dr Quiñones tomorrow. Gt is coming by himself on his appointments. I encouraged Gt to have family or friend with him for additional support. Per Gt, he is working with a female psychologist social and has visited him in his apartment. I reminded Gt to share the information that he told me regarding his social situation - if he has not done so. Pt agreed with plan. documented in this encounter Plan of Treatment Upcoming Encounters Date Type Department Care Team (Late st Contact Info) Description 08/15/2024 11:30 AM EST Office Visit Hematology/Oncology at [address] [phone] Chanelle Kim, [facility] [place] [address] Bee Curry [facility] [address] documented as of this encounter Visit Diagnoses Not on filedocumented in this encounter Care Teams Senior Statistical Programmer Relationship Specialty Start Date End Date Subhash Dowling MD [address] [place] [phone] PCP - General 06/03/10 documented as of this encounter
--- OUTSIDE RECORDS SUMMARY | 2024-08-15 01:38 | XMS_ITS | Encounter Summary ---
Author Organization [facility] Address [facility] [place] [address] Care Team Providers Care Molding Utility Worker Name Role Phone Subhash Dowling MD Primary Care Provider Encounter Details Date Type Department Care Team (Late Contact Info) Description 09/25/2019 Telephone Hematology/Oncology at [address] [phone] Marcy Castillo Social History Tobacco Use Types Packs/Day Years Used Date Smoking Tobacco: Never Assessed Sex and Gender Information Value Date Recorded Sex Assigned at Not on file Gender Identity Not on file Sexual Orientation Not on file documented as of this encounter Miscellaneous Notes * Telephone Encounter - Marcy Castillo - 09/25/2019 3:57 PM EDT COVID SCREENING ?? Pt or family members have not traveled in the past 14 days. ?? Pt or family has not been in contact with anyone suspected or confirmed to have COVID-19 in the past 14 days. ?? Pt or family does not have fever, cough or shortness of breath. documented in this encounter Plan of Treatment Upcoming Encounters Date Type Department Care Team (Late Contact Info) Description 08/15/2024 11:30 AM EST Office Visit Hematology/Oncology at [address] [phone] Chanelle Kim, ELEVATORS INSPECTOR [facility] [place] [address] Bee Curry APRN [facility] [place] [address] documented as of this encounter Visit Diagnoses Not on filedocumented in this encounter Care Teams Molding Utility Worker Relationship Specialty Start Date End Date Subhash Dowling MD [address] [address] PCP - General 06/03/10 documented as of this encounter
--- OUTSIDE RECORDS SUMMARY | 2024-08-15 01:38 | XMS_ITS | Encounter Summary ---
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 Aries Quiñones MD [facility] [address] [place] [address] [facility] Hem Onc Office [address] [place] [phone] Referral ID Status Reason Start Date Expiration Date Visits Re quested Visits Authorized [id number] Closed 10/06/2019 10/05/2020 1 1 Encounter Details Date Type Department Care Team (Late st Contact Info) Description 11/07/2019 10:00 AM EDT Infusion Hematology Oncology at [address] [phone] Bladder cancer metastasized to pelvic [...] Progress Notes * Bailey Son RN - 11/07/2019 10:00 AM EDT INFUSION THERAPY ADMINISTRATION NOTES DIAGNOSIS: Bladder CA CYCLE #: 2 Day 1 REASON FOR VISIT: Cisplatin/Gemzar chemotherapy SUBJECTIVE Mr. Aguilar offers no complaints. OBJECTIVE LAB DATA: WBC 21.41, HGB 13.9, HCT 40.4, PLT 302, ANC 16.16, BUN16, Cr 1.23, Mg 2.3, K 4.2 Pre administration: Chemotherapy orders independently verified for [...] AM EST Office Visit Hematology/Oncology at [address] [phone] Chanelle Kim, [facility] [place] [address] Bee Curry [facility] [place] [address] documented as of this encounter Visit Diagnoses [...] over 2 Minutes, ONCE, 1 dose, On Wed11/07/19 at 1045, Alternative administration of IV push over 2 minutes is a recommendation from the long wall mining machine tender. Administer prior to chemotherapy., Routine Given 11/07/2019 10:36 AM EDT 130 mg CISplatin (PLATINOL) 58 mg in sodium chloride 0.9% 308 mL chemo infusion 58 mg (rounded from 58.45 mg = 35 mg/m2/dose ? 1.67 m2 Treatment Plan BSA from Recorded weight), Intravenous, ONCE, 1 dose, On Wed11/07/19 at 1130, Administer over 60 Minutes New Bag 11/07/2019 12:22 PM EDT 58 mg 308 mL/hr dexamethasone (Decadron) tablet 10 mg 10 mg, Oral, ONCE, 1 dose, On Wed11/07/19 at 1045, Administer prior to chemotherapy, Routine Given 11/07/2019 10:35 AM EDT 10 mg GEMcitabine 1,600 mg in sodium chloride 0.9% 292.1053 mL chemo infusion 1,600 mg, Intravenous, ONCE, 1 dose, On Wed11/07/19 at 1130, Administer over 30 Minutes, Warning Vesicant/Irritant Medication , Dose Ordered = 1670 mg (1000 mg/m2). Pharmacist rounded dose per procedure. New Bag 11/07/2019 11:21 AM EDT 1,600 mg 584.2 mL/hr magnesium sulfate 1g in dextrose 5% 100mL 1 g, Intravenous, EVERY HOUR, 2 doses, First dose on Wed11/07/19 at 1230, Last dose on Wed11/07/19 at 1300, Administer over 60 Minutes, Total dose is 2 grams. Post - CISplatin New Bag 11/07/2019 1:14 PM EDT 1 g 100 mL/hr New Bag 11/07/2019 12:20 PM EDT 1 g 100 mL/hr palonosetron (ALOXI) injection 0.25 mg 0.25 mg, Intravenous, ONCE, 1 dose, On Wed11/07/19 at 1045, Administer over 30 seconds. Administer prior to chemotherapy, Routine Given 11/07/2019 10:36 AM EDT 0.25 mg sodium chloride 0.9% infusion 1,000 mL, at 500 mL/hr, Intravenous, CONTINUOUS, Starting on Wed11/07/19 at 1045, Until Wed11/07/19 at 1244, Pre CISplatin New Bag 11/07/2019 10:13 AM EDT 1,000 mLs 500 mL/hr sodium chloride 0.9% with potassium chloride 20 mEq infusion 1,000 mL, at 500 mL/hr, Intravenous, CONTINUOUS, Starting on Wed11/07/19 at 1230, Until Wed11/07/19 at 1429, Post - CISplatin New Bag 11/07/2019 12:19 PM EDT 1,000 mLs 500 mL/ hr documented in this encounter Care Teams Brim Rounder Relationship Specialty Start Date End Date Subhash Dowling MD [address] [place] [address] PCP - General 06/03/10 documented as of this encounter
--- OUTSIDE RECORDS SUMMARY | 2024-08-15 01:38 | XMS_ITS | Encounter Summary ---
Author Organization [facility] Address [facility] [place] [address] Care Team Providers Care Enterprise Resource Planner Name Role Phone Subhash Dowling MD Primary Care Provider [phone] Encounter Details Date Type Department Care Team (Latest Contact Info) Description 10/05/2019 Multidisciplinary Ca [place] [address] Stephan Armstrong MD [facility] [place] [address] Social History Tobacco Use Types Packs/Day Years Used Date Smoking Tobacco: Every Day Cigarettes 2 50 Smokeless Tobacco: Never Sex and Gender Information Value Date Recorded Sex Assigned at Not on file Gender Identity Not on file Sexual Orientation Not on file documented as of this encounter Progress Notes * Stephan Armstrong MD - 10/05/2019 5:46 PM EDT - Tumor Board Note Date Presented: 10/05/2019 Presenting Physician: Patti Diagnosis/Tumor Site:Bladder Is this Metastatic Disease: No Synopsis of History/HPI: Delayed presentation of muscle invasive bladder cancer, social challenges Imaging: PET small bilateral lymphnodes Pathology/Histology: UCC Stage:[id number] Clinical Data (Exams, Labs, etc.): Cr 1.1 Molecular Pathology Results: Clinical Trial Availability: None Options Discussed: Neoadjuvant chemotherapy vs. Cystectomy Recommendations: Neoadjuvant chemotherapy followed by cystectomy DISCLAIMER: The patient was discussed and the tumor board made recommendations but it is ultimatelyup to the treatment provider(s) and the patient to determine the patient???s care. documented in this encounter Plan of Treatment Upcoming Encounters Date Type Department Care Team (Late st Contact Info) Description 08/15/2024 11:30 AM EST Office Visit Hematology/Oncology at [address] [phone] Chanelle Kim, [facility] [place] [address] Bee Curry, [facility] [place] [address] documented as of this encounter Visit Diagnoses Not on filedocumented in this encounter Care Teams Enterprise Resource Planner Relationship Specialty Start Date End Date Subhash Dowling MD [address] [place] [id number] PCP - General 06/03/10 documented as of this encounter
--- OUTSIDE RECORDS SUMMARY | 2024-08-15 01:38 | XMS_ITS | Encounter Summary ---
Author Organization [facility] Address [facility] [place] [address] Care Team Providers Care Technologist Infectious Disease Name Role Phone Subhash Dowling MD Primary Care Provider [phone] Encounter Details Date Type Department Care Team (Late Contact Info) Description 09/04/2019 Telephone Radiation Oncology at [address] [phone] Noah Garcia Social History Tobacco Use Types [...] AM EST Office Visit Hematology/Oncology at [address] [phone] Chanelle Kim [facility] [place] [address] Bee Curry [facility] [address] documented as of this encounter Visit Diagnoses Not on filedocumented in this encounter Care Teams Technologist Infectious Disease Relationship Specialty Start Date End Date Subhash Dowling MD [address] [place], [place] [address] PCP - General 06/03/10 documented as of this encounter
--- OUTSIDE RECORDS SUMMARY | 2024-08-15 01:38 | XMS_ITS | Encounter Summary ---
Author Organization [facility] [place] [address] Care Team Providers Care Dialysis Nurse Name Role Phone Subhash Dowling MD Primary Care Provider [phone] Encounter Details Date Type Department Care Team (Late st Contact Info) Description 11/20/2019 Telephone Hematology [place] [phone] Yamilka Hernandez, RN Social History Tobacco Use Types Packs/Day Years Used Date Smoking Tobacco: Every Day Cigarettes 2 50 Smokeless Tobacco: Never Sex and Gender Information Value Date Recorded Sex Assigned at Not on file Gender Identity Not on file Sexual Orientation Not on file documented as of this encounter Miscellaneous Notes * Telephone Encounter - Yamilka Hernandez, RN - 11/20/2019 3:09 PM EDT Connected with Gt today to discuss [place] appointments on 11/26 and need for mediport to continue chemotherapy cycles 3 and 4 (please refer to my note from 11/14 for context). Gt in agreement regarding mediport placement and verbalizes understanding regarding appointments with Dr. Armstrong and the ostomy nurse. Informed Gt that Nadia Mueller in [facility]. Reviewed appointment times and locations. Mailed Gt a calendar outlining his appointments for 11/26, 11/27, and 11/24. Gt knows to contact me with any questions or concerns. I will follow up with Gt at the end of the week to ensure that he received his calendar. documented in this encounter Plan of Treatment Upcoming Encounters Date Type Department Care Team (Late st Contact Info) Description 08/15/2024 11:30 AM EST Office Visit Hematology/Oncology at [address] [phone] Chanelle Kim, [facility] [address] Bee Curry [facility] [place] [address] documented as of this encounter Visit Diagnoses Not on filedocumented in this encounter Care Teams Dialysis Nurse Relationship Specialty Start Date End Date Subhash Dowling MD [address] [place] [address] PCP - General 06/03/10 documented as of this encounter
--- OUTSIDE RECORDS SUMMARY | 2024-08-15 01:38 | XMS_ITS | Encounter Summary ---
Author Organization [facility] [place] [address] Care Team Providers Care Career Representative Name Role Phone Subhash Dowling MD Primary Care Provider [phone] Reason for Visit * Reason Onset Date Comments Other 09/04/2019 transportation Encounter Details Date Type Department Care Team (Late st Contact Info) Description 09/04/2019 Telephone Radiation Oncology at [address] [phone] Nadia Mueller MSW OFFICE OF CARE MANAGEMENT Other (transportation) Social History Tobacco Use Types Packs/Day Years Used Date Smoking Tobacco: Never Assessed Sex and Gender Information Value Date Recorded Sex Assigned at Not on file Gender Identity Not on file Sexual Orientation Not on file documented as of this encounter Miscellaneous Notes * Telephone Encounter - Nadia Mueller MSW - 09/04/2019 2:46 PM EST Informed by Iban Garcia, Clinical [place] that pt missed his appointments here today because he did not have a ride. TC pt to discuss. TC pt and he reports he does not have a vehicle and did not have a ride today. Pt has medicaid and inquired if he has used [facility] for rides to medical appointments and pt indicated he has. TRANSFORMER MECHANIC and friend Suhbash called [facility] to schedule rides for 09-07-[address] Quiñones and physical referral form completed and faxed to [employer] as requested for this trip. Also faxed request to [facility] for pt's appointments on 09-27-19 at [facility] so rides can be set up forth day. Updated Ms. Garcia re this. documented in this encounter Plan of Treatment Upcoming Encounters Date Type Department Care Team (Late st Contact Info) Description 08/15/2024 11:30 AM EST Office Visit Hematology/Oncology at [address] [phone] Chanelle Kim, [facility] [place] [address] Bee Curry, [facility] [place] [address] documented as of this encounter Visit Diagnoses Not on filedocumented in this encounter Care Teams Career Representative Relationship Specialty Start Date End Date Subhash Dowling MD [address] [place] [address] PCP - General 06/03/10 documented as of this encounter
--- OUTSIDE RECORDS SUMMARY | 2024-08-15 01:38 | XMS_ITS | Encounter Summary ---
Author Organization [facility] Address [facility] [place] [address] Care Team Providers Care Dethistler Operator Name Role Phone Subhash Dowling MD Primary Care Provider [phone] Encounter Details Date Type Department Care Team (Late st Contact Info) Description 10/06/2019 Telephone [place] [phone] Stephan Armstrong MD [facility] [place] [address] Social History Tobacco Use Types Packs/Day Years Used Date Smoking Tobacco: Every Day Cigarettes 2 50 Smokeless Tobacco: Never Sex and Gender Information Value Date Recorded Sex Assigned at Not on file Gender Identity Not on file Sexual Orientation Not on file documented as of this encounter Miscellaneous Notes * Telephone Encounter - Ema Lay - 10/06/2019 2:25 PM EDT I called Mr. Aguilar at the request of Yamilka Hernandez to discuss tobacco cessation. Mr. Aguilar smokes 2 ppd of cheap cigarettes which cost about 7 dollars per day. He has been smoking for over 30 years. He quit once for 2 months while he was using an oxygen tank. He feels it is important to quit and is willing to make an attempt to cut down. He says the nicotine patches fall off of him, so I gave him some tips on how to keep them on. I also recommended that he start smoking outside and get more fresh air as an alternative to smoking. He likes hanging out with his parakeet, so next time we talk I will offer the benefits of reducing secondhand smoke for pets. I will revisit our conversation in one week. documented in this encounter Plan of Treatment Upcoming Encounters Date Type Department Care Team (Late st Contact Info) Description 08/15/2024 11:30 AM EST Office Visit Hematology/Oncology at [address] [phone] Chanelle Kim, [facility] [place] [address] Bee Curry, [facility] [place] [address] documented as of this encounter Visit Diagnoses Not on filedocumented in this encounter Care Teams Dethistler Operator Relationship Specialty Start Date End Date Subhash Dowling MD [address] [place] [address] PCP - General 06/03/10 documented as of this encounter
--- OUTSIDE RECORDS SUMMARY | 2024-08-15 01:38 | XMS_ITS | Encounter Summary ---
Author Organization [facility] [place] [address] Care Team Providers Care Cut Roll Machine Offbearer Name Role Phone Subhash Dowling MD Primary Care Provider [phone] Encounter Details Date Type Department Care Team (Late st Contact Info) Description 09/20/2019 Notes Only Hematology and Oncology at [facility] [place] [address] Kalyani Burgos, KEYA Social History Tobacco Use Types Packs/Day Years Used Date Smoking Tobacco: Never Assessed Sex and Gender Information Value Date Recorded Sex Assigned at Not on file Gender Identity Not on file Sexual Orientation Not on file documented as of this encounter Progress Notes * Kalyani Burgos, KEYA - 09/20/2019 11:59 PM EDT Pt is a no show with Dr Quiñones`s appointment. I called pt to find out his status. Pt was at homewhen I called.Mr Aguilar verbalized that he is waiting for his transportation. I asked if he called the day prior as advised to make sure that he has transportation. Pt replied that he tried and couldnot get anybody on the line and it has happened before that he was not picked up and missed his appointment. I encouraged pt call his transportation to follow-up. I also spoke with Dr Quiñones regarding pt`s situation. Considering where pt lives (approximately 2 hrs away from [facility] we discussed to have his appointment with Dr Quiñones in [facility]. I called Marcy in [facility] to re-schedule pt`s appointment (he is now scheduled on 09/26/19). Marcy will call pt to notify with his new schedule. I also emailed MINGO Baldwin, at [facility] request ing transportation assistance on Mr Aguilar. During my entire phone call with Mr Aguilar, I have noticed that he has no concept on the importancethat he needs to be seen by our medical oncologist and why. I can hear that his TV is on and he wasnot worried that he missed his appointment again. I also updated Dr Ridley about my observation. documented in this encounter Plan of Treatment Upcoming Encounters Date Type Department Care Team (Late st Contact Info) Description 08/15/2024 11:30 AM EST Office Visit Hematology/Oncology at [address] [phone] Chanelle Kim [facility] [place] [address] Bee Curry [facility] [address] documented as of this encounter Visit Diagnoses Not on filedocumented in this encounter Care Teams Cut Roll Machine Offbearer Relationship Specialty Start Date End Date Subhash Dowling MD [address] [place] [address] PCP - General 06/03/10 documented as of this encounter
--- OUTSIDE RECORDS SUMMARY | 2024-08-15 01:38 | XMS_ITS | Encounter Summary ---
Author Organization [facility] [place] [address] Care Team Providers Care Assistant Construction Superintendent Name Role Phone Subhash Dowling MD Primary Care Provider [phone] Encounter Details Date Type Department Care Team (Late st Contact Info) Description 10/16/2019 Telephone Hematology/Oncology at [address] [phone] Marcy Castillo Social History Tobacco Use Types Packs/Day Years Used Date Smoking Tobacco: Every Day Cigarettes 2 50 Smokeless Tobacco: Never Sex and Gender Information Value Date Recorded Sex Assigned at Not on file Gender Identity Not on file Sexual Orientation Not on file documented as of this encounter Miscellaneous Notes * Telephone Encounter - Marcy Castillo - 10/16/2019 10:47 AM EDT Called Gt to inform him of the following: As a new precaution with COVID-19 we are calling all patients before they come in for their appointment to screen for any potential symptoms. 1. EXPOSURE: ???Have you been in contact with anyone suspected or confirmed to have COVID-19 in thepast 14 days??? No 2. Do you have a fever, cough, or shortness of breath? No [if they say yes to symptoms but no to exposure OR yes to symptoms and yes to exposure include the following and route to triage] I am going to forward this information on to our triage nurse. Someone should be calling you about next steps in regards to your appointment. Another precaution we are taking is that we are not allowing visitors at this time. If needed, someone may bring you to your appointment but they will be asked to wait outside. If you develop symptoms of shortness of breath, cough, or fever prior to your appointment do not come in for your appointment. Please call the Cancer Center before coming in. documented in this encounter Plan of Treatment Upcoming Encounters Date Type Department Care Team (Late st Contact Info) Description 08/15/2024 11:30 AM EST Office Visit Hematology/Oncology at [address] [phone] Chanelle Kim, [facility] [place] [address] Bee Curry [facility] [place] [address] documented as of this encounter Visit Diagnoses Not on filedocumented in this encounter Care Teams Assistant Construction Superintendent Relationship Specialty Start Date End Date Subhash Dowling MD [address] [place] [id number] PCP - General 06/03/10 documented as of this encounter
--- OUTSIDE RECORDS SUMMARY | 2024-08-15 01:38 | XMS_ITS | Encounter Summary ---
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 Aries Quiñones MD [facility] HEMATOLOGY [place] [address] [facility] Hem Onc Office [address] [place] [phone] Referral ID Status Reason Start Date Expiration Date Visits Re quested Visits Authorized [id number] Closed 10/06/2019 10/05/2020 1 1 Encounter Details Date Type Department Care Team (Late st Contact Info) Description 10/17/2019 10:00 AM EDT Infusion Hematology Oncology at [address] [phone] Bladder cancer metastasized to [...] this encounter Patient Instructions * Patient Instructions* Maria De Jesus Cooney RN - 10/17/2019 10:00 AM EDT documented in this encounter Progress Notes * Maria De Jesus Cooney RN - 10/17/2019 10:00 AM EDT INFUSION THERAPY ADMINISTRATION NOTES TIME TREATMENT STARTED: 1000 TIME TREATMENT ENDED: 1500 DIAGNOSIS: Bladder CA CYCLE #: 1 Day 1 REASON FOR VISIT: Cisplatin/Gemzar chemotherapy SUBJECTIVE Mr. Aguilar is here for his C1D1 chemotherapy with Cisplatin and Gemzar. He saw Chanelle Kim APRN prior to infusion appt. He is nervous about IV sticks for IV placement but otherwise states that he is doing ok. A Rx for anti-emetic was called in for him by Armand Kim APRN and my landlady will pick it up for him. He is dependent on [facility] for all transportation. OBJECTIVE LAB DATA: Labs drawn 10/04 at [facility] are being used for today. I reviewed them. They are adequate for treatment. Wbc 9.8, hgb 15.4, plts 194k, anc 7.14, BUN/Creatinine 14/1.17. Creatinine Clearance 49.806. Pre administration: Chemotherapy orders independently verified for drug name, route, and dosage per patient's height, weight and BSA by Oliver Cooney RN and pharmacist on-site. REACTIONS (DESCRIPTION, TIME, INTERVENTION AND EFFECTIVENESS) none ASSESSMENT Mr. Aguilar was awake, alert and he tolerated treatment well. Patient complained of burning in vein and arm aching at IV site with Gemzar infusion. Warm pack applied with little relief. NS rate increased and Gemzar rate decreased to patient tolerance. IV functioning well with no s/s of infiltration or phlebitis. Blood return obtained. PLAN Patient cannot read. Reviewed [employer]'s All [employer] You chemotherapy teaching booklet and booklet sent home with patient for reference as friend Boubacar lives with him. Also good reference for [facility] worker. During clinic hours (8am-5pm Wednesday-Wednesday): pt. can call [phone] with questions or concerns. After clinic hours (5pm-8am Wednesday-Wednesday and weekends) pt can call [phone] and ask for the incident handler/oncologist teacher adult education. Gt Aguilar verbalized understanding of potential chemotherapy side effects and home care including but not limited to- handwashing to prevent infection, signs and symptoms of low blood counts (fever, fatigue, bleeding), to call with a fever of 100.4 or greater, any significant constipation/diarrhea, importance of nutrition and fluid intake (drinking at least 32-64 ounces of non-caffeinated beverages/day), mouth care. Gt Aguilar verbalized understanding of how to take prescription medications given for home use after chemotherapy. Prescription for Compazine sent to pharmacy and will be picked up by adi per patient. Return to clinic in one week for consideration of cycle 1, day 8. Patient was reminded to call in the interim with any questions/concerns. documented in this encounter Plan of Treatment Upcoming Encounters Date Type Department Care Team (Late st Contact Info) Description 08/15/2024 11:30 AM EST Office Visit Hematology/Oncology at [address] [phone] Chanelle Kim, [facility] [place] [address] Bee Curry [facility] [place] [address] documented as of this encounter Visit Diagnoses [...] over 2 Minutes, ONCE, 1 dose, On Wed10/17/19 at 1015, Alternative administration of IV push over 2 minutes is a recommendation from the decorator mannequin. Administer prior to chemotherapy., Routine Given 10/17/2019 10:37 AM EDT 130 mg CISplatin (PLATINOL) 58 mg in sodium chloride 0.9% 308 mL chemo infusion 58 mg (rounded from 58.45 mg = 35 mg/m2/dose ? 1.67 m2 Treatment Plan BSA from Recorded weight), Intravenous, ONCE, 1 dose, On Wed10/17/19 at 1115, Administer over 60 Minutes New Bag 10/17/2019 12:52 PM EDT 58 mg 308 mL/hr dexamethasone (Decadron) tablet 10 mg 10 mg, Oral, ONCE, 1 dose, On Wed10/17/19 at 1015, Administer prior to chemotherapy, Routine Given 10/17/2019 10:33 AM EDT 10 mg GEMcitabine 1,600 mg in sodium chloride 0.9% 292.1053 mL chemo infusion 1,600 mg, Intravenous, ONCE, 1 dose, On Wed10/17/19 at 1115, Administer over 30 Minutes, Warning Vesicant/Irritant Medication , Dose Ordered = 1670 mg (1000 mg/m2). Pharmacist rounded dose per procedure. New Bag 10/17/2019 11:41 AM EDT 1,600 mg 584.2 mL/hr magnesium sulfate 1g in dextrose 5% 100mL 1 g, Intravenous, EVERY HOUR, 2 doses, First dose on Wed10/17/19 at 1230, Last dose on Wed10/17/19 at 1300, Administer over 60 Minutes, Total dose is 2 grams. Post - CISplatin New Bag 10/17/2019 1:45 PM EDT 1 g 100 mL/hr New Bag 10/17/2019 12:52 PM EDT 1 g 100 mL/hr palonosetron (ALOXI) injection 0.25 mg 0.25 mg, Intravenous, ONCE, 1 dose, On Wed10/17/19 at 1015, Administer over 30 seconds. Administer prior to chemotherapy, Routine Given 10/17/2019 10:34 AM EDT 0.25 mg sodium chloride 0.9% infusion 1,000 mL, at 500 mL/hr, Intravenous, CONTINUOUS, Starting on Wed10/17/19 at 1015, Until Wed10/17/19 at 1214, Pre CISplatin New Bag 10/17/2019 10:25 AM EDT 1,000 mLs 500 mL/hr sodium chloride 0.9% with potassium chloride 20 mEq infusion 1,000 mL, at 500 mL/hr, Intravenous, CONTINUOUS, Starting on Wed10/17/19 at 1230, Until Wed10/17/19 at 1429, Post - CISplatin New Bag 10/17/2019 12:52 PM EDT 1,000 mLs 500 mL/hr documented in this encounter Care Teams Office Messenger Relationship Specialty Start Date End Date Subhash Dowling MD [address] [place] [id number] PCP - General 06/03/10 documented as of this encounter
--- OUTSIDE RECORDS SUMMARY | 2024-08-15 01:38 | XMS_ITS | Encounter Summary ---
Author Organization [facility] [address] Care Team Providers Care Integrated Circuit Layout Designer Name Role Phone Subhash Dowling MD Primary Care Provider [phone] Reason for Visit * Reason Comments Bladder Cancer * Consultation (Routine) - Closed Specialty Diagnoses / Procedures Referred By Haroldo clark Referred To Contact Urology Diagnoses Malignant neoplasm of urinary bladder, unspecified site MUSCLE INVASIVE BLADDER CANCER Aries Quiñones MD [facility] DR HEMATOLOGY [place] [address] [facility] [place] [address] Referral ID Status Reason Start Date Expiration Date V isits Requested Visits Authorized [id number] Closed Consult, Test & Treat 09/26/2019 09/25/2020 1 1 Encounter Details Date Type Department Care Team (Late st Contact Info) Description 10/05/2019 2:00 PM EDT [place] [address] Stephan Armstrong MD [facility] [place] [address] Malignant neoplasm of urinary bladder, [...] Notes * Stephan Armstrong MD - 10/05/2019 2:00 PM EDT Images from the original note were not included. Referred by Dr Britt and Jovanny Hurley for evaluation of bladder cancer. HPI:Wally Marinelli is 69 [address] Hurley [...] mobility Department of Pathology & Laboratory Medicine [place] [address] , (Fax) [phone] Name: WALLY MARINELLI Provider: LEARIES Client: [facility] /Age/Sex: 1950 69 years Male Location: [facility] Report ID: [id number] The signing pathologist has (i) examined the relevant preparation(s) for the specimen(s); and (ii) rendered or confirmed the diagnosis(es). Pathology Report Collected: 08/29/2019 09:42 Received: 08/29/2019 09:42 Surgical Pathology DIAGNOSIS CONSULTATION CASE Outside slide(s) labeled [id number], collection date 07/31/2019. Urinary bladder, site not specified, mass, TURBT: - High grade urothelial carcinoma, invasive into muscularis propria and asuncion- muscular bundle adipose tissue. - Focal urothelial carcinoma in situ. Electronically signed by: Kalani Cabrera MD Verified: 08/31/2019 Pathologist Performed at: -[facility] Dept. of Pathology, [place], [place] DISCUSSION Per outside report, the tumor cells are positive for GATA3 and negative for NKX3.1 and Pax8 on immunostains(the immunostaining slides were not submitted for review). Currently he is voiding well. He his [...] as well. He lives by himself. 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 Lives alone. He has 2 children but he is not in touch with them. He has a parquet. Family History: No bladder cancer Allergies: Allergies Allergen Reactions ??? Wellbutrin [Bupropion Hcl] Other (See Comments) Unknown on pt's chart from outside facility Medications: Your Medications Accurate as of October 05, 2019 11:08 AM. If you have any questions, ask your nurse or doctor. Continued medications, unchanged Dose Details aspirin EC 81 mg Tbec Take 81 [...] mg Refills: 0 Review of Systems: Constitutional: Limited by claudication 50-100yards HEENT: Negative for sore throat, mouth sores and trouble swallowing. Eyes: Negative. Respiratory: Negative for cough, shortness of breath and wheezing. Cardiovascular: Negative for chest pain, palpitations and leg swelling. Gastrointestinal: Negative for nausea, vomiting, abdominal pain, diarrhea, constipation and abdominal distention. Genitourinary: Positive for dysuria but no gross hematuria since TURBT on July 31. Musculoskeletal: Negative. Skin: Negative. Neurological: Negative. Hematological: Negative for adenopathy. PE: The patient appears well developed and [...] - Focal urothelial carcinoma in situ Labs: Pending Imagin02/28/2019 CT abdomen pelvis: Conclusion: Obstructing mass of the bladder floor to the left of midline. Secondary left hydroureter and hydronephrosis. The findings are highly suggestive for bladder carcinoma. No gross evidence ofmetastatic disease. Impression: T3N0M0 High Grade Urothelial cancer PVD Moderate Comorbidity Challenging Social circumstances Plan PET/CT for staging CBC/CMP Tumor board If renal function adequate neoadjuavant chemotherapy followed by radical cystoprostatectomy + ilealconduit Will need evaluation for PVD and a cardiac evaluation prior to surgery Smoking cessation Nurse Navigation. I discussed with the patient the natural history and options for management of invasive bladder cancer These primarily are: #1: TURBT +chemoradiation for bladder sparing #2: Cystectoprostatectomy + Urinary diversion +/-neoadjuvant chemotherapy. We discussed the mechanics of each treatment as well as the pros and cons and the results of each. We initially discussed bladder sparing before focusing on the surgical approach. He is not a good candidate for bladder sparing based on his ureteral obstruction. We discussed the role of neoadjuvant chemotherapy which is supported by randomized trials and meta analyses. At [facility] we favour 3 cycles of neoadjuvant chemotherapy prior to surgery (either MVAC or CG) We discussed the operation of radical cystoprostatectomy (openn and lap/robotic). We discussed the pre/intra/post operative course as well as the risks. We discussed this was a significant operation with an at least 30% risk of a complications. We discussed the risk of sexual dysfunction. We discussed the options for urinary diversion ileal conduit/ [place] pouch/neobladder. We discussed the functional outcomes, continence results, requirement for catheterization and pros and cons of each. Given his circumstances a ileal conduit would be the optimal option. I will see him with stoma therapy between cycles 2 & 3 of chemotherapy with the stoma therapist. At that time we will make sure he has completed a w/u for his PVD and has had cardiac clearance. Upon completing chemotherapy I will see him for a preoperative visit with a restaging PET/CT. All questions were answered. He knows he can call if there are any issues or questions. documented in this encounter Plan of Treatment Upcoming Encounters Date Type Department Care Team (Late st Contact Info) Description 08/15/2024 11:30 AM EST Office Visit Hematology/Oncology at [address] [phone] Chanelle Kim [facility] [place] [address] Bee Curry [facility] [place] [address] documented as of this encounter Results * (ABNORMAL) Comprehensive metabolic panel (non-fasting) (10/05/2019 2:31 PM EDT) Glucose 103 65 - 199 mg/dL [facility] Comment:Diabetes: >=200 mg/d L plus symptoms Blood Urea Nitrogen 14 10 - 20 mg/dL [facility] Creatinine 1.17 0.80 - 1.50 mg/dL [facility] Sodium 139 135 - 145 mmol/L [facility] Potassium 4.5 3.5 - 5.0 mmol/L [facility] Comment: Please note: ??Patients with WBC >100,000 may have falsely elevated Potassium levels. ??For accurate Potassium quantification in these patients send serum separator tube (gold top) for subsequent determinations. ??Contact the Clinical Chemistry Laboratory if there are any questions. Chloride 103 98 - 107 mmol/L [facility] Carbon Dioxide 23 22 - 31 mmol/L [facility] Anion Gap 13 5 - 15 mmol/L [facility] Calcium 9.6 8.5 - 10.5 mg/dL [facility] Protein, Total 7.3 6.1 - 8.0 gm/dL [facility] Albumin 4.4 3.2 - 5.2 gm/dL [facility] Aspartate Aminotransferase 16 0 - 39 unit/L [facility] Alanine Aminotransferase 18 0 - 55 unit/L [facility] Alkaline Phosphatase 172(H) 40 - 130 unit/L [facility] Bilirubin, Total 0.3 0.2 - 1.3 mg/dL [facility] Est Glomerular Filtration Rate 64 >=60 mL/min/1. 73 m?? [facility] Comment: The eGFR was calculated using the CKD-EPI equation. As with all creatinine based estimates of kidney function, eGFR values calculated with the CKD-EPI equation are not accurate in patients with acute kidney failure, extremes of body mass or the acutely ill. [email or web address] eGFR 74 >=60 mL/min/1. 73 m?? [facility] Comment: The eGFR was calculated using the CKD-EPI equation. As with all creatinine based estimates of kidney function, eGFR values calculated with the CKD-EPI equation are not accurate in patients with acute kidney failure, extremes of body mass or the acutely ill. [email or web address] Blood specimen (specimen) 10/05/2019 2:31 PM EDT 10/05/2019 2:42 PM EDT Narrative Resulting Agency Comment Spec In Lab Stephan Armstrong MD CHEMISTRY ORDERABLES [facility] [place] [address] documented in this encounter Visit Diagnoses Diagnosis Malignant neoplasm of urinary bladder, unspecified site- Primary documented in this encounter Care Teams Integrated Circuit Layout Designer Relationship Specialty Start Date End Date Subhash Dowling MD [address] [place] [phone] PCP - General 06/03/10 documented as of this encounter
--- OUTSIDE RECORDS SUMMARY | 2024-08-15 01:38 | XMS_ITS | Encounter Summary ---
[place] [address] Care Team Providers Care Jacquard Loom Carpet Weaver Name Role Phone Subhash Dowling MD Primary Care Provider [phone] Reason for Referral * Diagnostic Test (Routine) - Closed Specialty Diagnoses / Procedures Referred By Contac t Referred To Contact Radiology Diagnoses Malignant neoplasm of urinary bladder, unspecified site Procedures NM PET CT Skull Base to Mid-thigh Aries Quiñones MD [facility] [address] [place] [address] [place] [address] Referral ID Status Reason Start Date Expiration Date V isits Requested Visits Authorized [id number] Closed Specialty Service Requested 09/26/2019 03/28/2021 1 1 Reason for Visit * Diagnostic Test (Routine) - Closed Specialty Diagnoses / Procedures Referred By Contac t Referred To Contact Radiology Diagnoses Malignant neoplasm of urinary bladder, unspecified site Procedures NM PET CT Skull Base to Mid-thigh Aries Quiñones MD [facility] [address] [place] [address] [place] [address] Referral ID Status Reason Start Date Expiration Date V isits Requested Visits Authorized [id number] Closed Specialty Service Requested 09/26/2019 03/28/2021 1 1 Encounter Details Date Type Department Care Team (Latest Contact Info) Description 10/05/2019 10:45 AM EDT - 10/05/2019 10:55 AM EDT Hospital Encounter [place] [address] Aries Quiñones MD [facility] [address] [place] [address] Malignant neoplasm of urinary bladder, unspecified site [...] AM EST Office Visit Hematology/Oncology at [address] [phone] Chanelle Kim, [facility] [place] [address] Bee Curry [facility] [place] [address] documented as of this encounter Procedures Procedure Name Priority Date/Time Associated Diagnosis Comments NM PET CT SKULL BASE TO MID-THIGH ([facility]) Routine 10/05/2019 1:48 PM EDT Malignant neoplasm of urinary bladder, unspecified site documented in this encounter Results * NM PET CT Skull Base to Mid-thigh (10/05/2019 1:48 PM EDT) Anatomical Region Laterality Modality Positron Emissio n Tomography (PET) Impressions 10/05/2019 2:21 PM EDT 1. ??A 5 cm FDG avid left bladder wall malignancy extending to the bladder base, and causing severe left hydroureteronephrosis which has worsened compared to prior CT of 02/2019. 2. ??Small nathaly metastases in the bilateral external iliac regions. 3. ??No distant sites of metastasis. Thank you for letting us participate in the care of this patient. For questions regarding this report, please contact the number below. ? Narrative 10/05/2019 2:21 PM EDT EXAMINATION: NM PET CT SKULL BASE TO MID-THIGH ? CLINICAL HISTORY: Metastatic disease evaluation Staging of high-grade urothelial carcinoma of bladder TECHNIQUE: Following IV injection of 54-kogxdt-1-deoxyglucose (FDG) a standard uptake of approximately 60 minutes, a noncontrast CT scan followed by a PET scan were acquired from the base of the skull to mid thighs. The noncontrast CT was used for anatomic localization and photon attenuation correction of the PET scan. Blood glucose level: 96 (mg/dL) FDG dose: 7 mCi COMPARISON: CT abdomen and pelvis 02/28/2019 FINDINGS: HEAD/NECK: Normal activity in all soft tissue regions of the neck and visualized lower head. No adenopathy. CHEST: Normal activity in all soft tissue regions. No significant pulmonary nodules or adenopathy. Coronary and aortic calcifications are present. ABDOMEN/PELVIS: An approximately 5 cm heterogeneously FDG avid left-sided bladder wall mass extending to the bladder base (centered on axial image 221). The mass is increased in size compared to prior CT of 02/28/2019. A 6 mm FDG avid lymph node in the left external iliac region (axial image 201), not significantly changed in size compared to prior CT of 02/28/2019. A cluster of several subcentimeter lymph nodes in the right external iliac region (centered on axial image 205) which appears slightly increased in size compared to prior CT of 02/2019. Normal activity in all other soft tissue regions. Severe left hydroureteronephrosis to the level of the bladder mass, which has worsened compared to prior CT of 02/2019. Multiple small calcifications in the liver and spleen, consistent with granulomatous disease. SKELETON/EXTREMITIES: Normal marrow activity in all regions of the axial and visualized appendicular skeleton. Surgical hardware in the right hip. Procedure Note Severo Webster MD - 10/05/2019 EXAMINATION: NM PET CT SKULL BASE TO MID-THIGH CLINICAL HISTORY: Metastatic disease evaluation Staging of high-grade urothelial carcinoma of bladder TECHNIQUE: Following IV injection of 78-ygbvgr-7-deoxyglucose (FDG) astandard uptake of approximately 60 minutes, a noncontrast CT scan followed by aPET scan were acquired from the base of the skull to mid thighs. The noncontrast CTwas used for anatomic localization and photon attenuation correction of thePET scan. Blood glucose level: 96 (mg/dL) FDG dose: 7 mCi COMPARISON: CT abdomen and pelvis 02/28/2019 FINDINGS: HEAD/NECK: Normal activity in all soft tissue regions of the neck and visualizedlower head. No adenopathy. CHEST: Normal activity in all soft tissue regions. No significant pulmonarynodules or adenopathy. Coronary and aortic calcifications are present. ABDOMEN/PELVIS: An approximately 5 cm heterogeneously FDG avid left-sided bladder wallmass extending to the bladder base (centered on axial image 221). The mass is increased in size compared to prior CT of 02/28/2019. A 6 mm FDG avid lymph node in the left external iliac region (axial [id number]), not significantly changed in size compared to prior CT of 02/28/2019. Acluster of several subcentimeter lymph nodes in the right external iliac region (centered on axial image 205) which appears slightly increased in sizecompared to prior CT of 02/2019. Normal activity in all other soft tissue regions. Severe left hydroureteronephrosis to the level of the bladder mass, whichhas worsened compared to prior CT of 02/2019. Multiple small calcifications in the liver and spleen, consistent with granulomatous disease. SKELETON/EXTREMITIES: Normal marrow activity in all regions of the axial and visualizedappendicular skeleton. Surgical hardware in the right hip. IMPRESSION 1. A 5 cm FDG avid left bladder wall malignancy extending to the bladderbase, and causing severe left hydroureteronephrosis which has worsened comparedto prior CT of 02/2019. 2. Small nathaly metastases in the bilateral external iliac regions. 3. No distant sites of metastasis. Thank you for letting us participate in the care of this patient. Forquestions regarding this report, please contact the number below. Aries Quiñones MD IMG PET ORDERABLES documented in this encounter Visit Diagnoses Diagnosis Malignant neoplasm of urinary bladder, unspecified site documented in this encounter Administered Medications Inactive Administered Medications - up to 3 most recent administrations Medication Order MAR Action Action Date Dose Rate Site fludeoxyglucose (F-18) FDG injection 0-20 mCi 0-20 mCi, Intravenous, ONCE PRN, 1 dose, Starting on Bety 10/05/19 at 1242, Until Bety 10/05/19 at 1235, Per Protocol, Radiology Contrast, Routine Given 10/05/2019 12:35 PM EDT 7 mCi Righ t Arm documented in this encounter Care Teams Jacquard Loom Carpet Weaver Relationship Specialty Start Date End Date Subhash Dowling MD [address] [place] [id number] PCP - General 06/03/10 documented as of this encounter
--- OUTSIDE RECORDS SUMMARY | 2024-08-15 01:38 | XMS_ITS | Encounter Summary ---
Author Organization [facility] [place] [address] Care Team Providers Care Gasoline Pump Mechanic Name Role Phone Subhash Dowling MD Primary Care Provider Encounter Details Date Type Department Care Team (Late Contact Info) Description 09/28/2019 Telephone Radiation Oncology at [address] [phone] Noah Garcia Social History Tobacco Use Types [...] AM EST Office Visit Hematology/Oncology at [address] [phone] Chanelle Kim [facility] [place] [address] Bee Curry [facility] [place] [address] documented as of this encounter Visit Diagnoses Not on filedocumented in this encounter Care Teams Gasoline Pump Mechanic Relationship Specialty Start Date End Date Subhash Dowling MD [address] [place] [address] PCP - General 06/03/10 documented as of this encounter
--- OUTSIDE RECORDS SUMMARY | 2024-08-15 01:38 | XMS_ITS | Encounter Summary ---
Author Organization [facility] [place] [address] Care Team Providers Care Gas Station Clerk Name Role Phone Subhash Dowling MD Primary Care Provider [phone] Reason for Visit * Reason Onset Date Comments Other 11/16/2019 transportation Encounter Details Date Type Department Care Team (Late st Contact Info) Description 11/16/2019 Telephone Hematology/Oncology at [address] [phone] Nadia Mueller MSW OFFICE OF CARE MANAGEMENT [...] Telephone Encounter - Nadia Mueller MSW - 11/16/2019 10:44 AM EDT Confirmed appointments for 5-18-20 at with Yamilka Hernandez RN, Nurse Navigator. She is expecting pt will be done for the day at 1:30pm. TC RCT to review plan for rides that day to and confirmed the 1:30 pm pick for trip home. documented in this encounter Plan of Treatment Upcoming Encounters Date Type Department Care Team (Late st Contact Info) Description 08/15/2024 11:30 AM EST Office Visit Hematology/Oncology at [address] [phone] Chanelle Kim, [facility] [place] [address] Bee Curry, [facility] [place] [address] documented as of this encounter Visit Diagnoses Not on filedocumented in this encounter Care Teams Gas Station Clerk Relationship Specialty Start Date End Date Subhash Dowling MD [address] [place] [id number] PCP - General 06/03/10 documented as of this encounter
--- OUTSIDE RECORDS SUMMARY | 2024-08-15 01:38 | XMS_ITS | Encounter Summary ---
Author Organization [facility] [place] [address] Care Team Providers Care Set Up Operator Name Role Phone Subhash Dowling MD Primary Care Provider [phone] Reason for Visit * Reason Onset Date Comments Other 10/19/2019 transportation Encounter Details Date Type Department Care Team (Late st Contact Info) Description 10/19/2019 Telephone Hematology/Oncology at [address] [phone] Nadia Mueller MSW OFFICE OF CARE MANAGEMENT [...] Telephone Encounter - Nadia Mueller MSW - 10/19/2019 1:02 PM EDT Informed by mariposa Castillo, Clinical Sharon of change in pt's appointment times on 10-24-19. TC RCT to change in ride schedule to reflect changes. Appointments are now scheduled for 10am [facility] Lab; 11am provider visit; 11:30 am infusion and 11:45am home. documented in this encounter Plan of Treatment Upcoming Encounters Date Type Department Care Team (Late st Contact Info) Description 08/15/2024 11:30 AM EST Office Visit Hematology/Oncology at [address] [phone] Chanelle iKm, [facility] [place] [address] Bee Curry, [facility] [place] [address] documented as of this encounter Visit Diagnoses Not on filedocumented in this encounter Care Teams Set Up Operator Relationship Specialty Start Date End Date Subhash Dowling MD [address] [place] [id number] PCP - General 06/03/10 documented as of this encounter
--- OUTSIDE RECORDS SUMMARY | 2024-08-15 01:38 | XMS_ITS | Encounter Summary ---
Author Organization [facility] [place] [address] Care Team Providers Care Clinical Manager Name Role Phone Subhash Dowling MD Primary Care Provider [phone] Encounter Details Date Type Department Care Team (Latest Contact Info) Description 10/05/2019 2:40 PM EDT Laboratory Appointment Lab [address] [place] [phone] Malignant neoplasm of urinary bladder, unspecified site [...] AM EST Office Visit Hematology/Oncology at [address] [phone] Chanelle Kim [facility] [place] [address] Bee Curry [facility] [place] [address] documented as of this encounter Procedures Procedure Name Priority Date/Time Associated Diagnosis Comments HEMOGRAM Routine 10/05/2019 2:31 PM EDT Malignant neoplasm of urinary bladder, unspecified site DIFFERENTIAL, AUTOMATED Routine 10/05/2019 2:31 PM EDT Malignant neoplasm of urinary bladder, unspecified site HC CBC,PLT & AUTO DIFF Routine 0 2:31 PM EDT Malignant neoplasm of urinary bladder, unspecified site COMPREHENSIVE METABOLIC PANEL STAT 10/05/2019 2:31 PM EDT Malignant neoplasm of urinary bladder, unspecified site documented in this encounter Results * (ABNORMAL) Differential, Automated (10/05/2019 2:31 PM EDT) Neutrophil % 72.8 % [facility] Neutrophil Absolute 7.14(H) 1.70 - 6.10 x10(3)/mc L [facility] Lymph % 18.7 % [facility] Lymphocytes Abs 1.8 0.9 - 3.2 x10(3)/mc L [facility] Monocyte % 6.0 % [facility] Monocyte Abs 0.6 0.3 - 0.9 x10(3)/mc L [facility] Eos % 1.1 % [facility] Eosinophils Abs 0.1 0.0 - 0.4 x10(3)/mc L [facility] Basophil % 1.0 % [facility] Baso Absolute 0.1 0.0 - 0.1 x10(3)/mc L [facility] Immature Gran % 0.40 % [facility] Comment: Immature granulocytes(IG's)percentage and absolute count will include metamyelocytes, myelocytes, and promyelocytes. Blood smears from CBCs yielding IG's will be scanned manually for concordance. If this scan disagrees with the automated IG or if promyelocytes are noted, a manual differential will be performed. Immature Gran Absolute 0.04 0.00 - 0.04 x10(3)/mc L [facility] Blood specimen (specimen) 10/05/2019 2:31 PM EDT 10/05/2019 2:42 PM EDT Narrative Resulting Agency Comment Spec In Lab Stephan Armstrong MD HEMATOLOGY ORDERABLE S [facility] [place] [address] * (ABNORMAL) Hemogram (10/05/2019 2:31 PM EDT) White Blood Cell 9.8(H) 4.0 - 9.5 x10(3)/mc L [facility] Red Blood Cell 5.32 4.58 - 5.54 x10(6)/mc L [facility] Hemoglobin 15.4 13.7 - 16.5 gm/dL [facility] Hematocrit 47.3 40.5 - 48.5 % [facility] Mean Cell Volume 88.9 82.9 - 93.1 [facility] Mean Cell Hemoglobin 28.9 27.5 - 32.1 pg [facility] Mean Cell Hemoglobin Concentration 32.6 32.0 - 35.7 gm/dL [facility] Platelet 194 145 - 357 x10(3)/mc L [facility] RDW Standard Deviation 48.1(H) 36.0 - 45.0 [facility] RDW coefficient of variation 14.6(H) 11.4 - 13.8 % [facility] Mean Platelet Volume 10.7 7.6 - 12.9 [facility] NRBC% auto 0.0 % [facility] NRBC Absolute 0.000 0.000 - 0.000 x10(3)/mc L [facility] Blood specimen (specimen) 10/05/2019 2:31 PM EDT 10/05/2019 2:42 PM EDT Narrative Resulting Agency Comment Spec In Lab Stephan Armstrong MD HEMATOLOGY ORDERABLE S [facility] [place] [address] * (ABNORMAL) Comprehensive metabolic panel (non-fasting) (10/05/2019 2:31 PM EDT) Glucose 103 65 - 199 mg/dL [facility] Comment:Diabetes: >=200 mg/d L plus symptoms Blood Urea Nitrogen 14 10 - 20 mg/dL [facility] Creatinine 1.17 0.80 - 1.50 mg/dL [facility] Sodium 139 135 - 145 mmol/L [facility] Potassium 4.5 3.5 - 5.0 mmol/L [facility] Comment: Please note: ??Patients with WBC >100,000 may have falsely elevated Potassium levels. ??For accurate Potassium quantification in these patients send serum separator tube (gold top) for subsequent determinations. ??Contact the Clinical Chemistry Laboratory if there are any questions. Chloride 103 98 - 107 mmol/L [facility] Carbon Dioxide 23 22 - 31 mmol/L [facility] Anion Gap 13 5 - 15 mmol/L [facility] Calcium 9.6 8.5 - 10.5 mg/dL [facility] Protein, Total 7.3 6.1 - 8.0 gm/dL [facility] Albumin 4.4 3.2 - 5.2 gm/dL [facility] Aspartate Aminotransferase 16 0 - 39 unit/L [facility] Alanine Aminotransferase 18 0 - 55 unit/L [facility] Alkaline Phosphatase 172(H) 40 - 130 unit/L [facility] Bilirubin, Total 0.3 0.2 - 1.3 mg/dL [facility] Est Glomerular Filtration Rate 64 >=60 mL/min/1. 73 m?? [facility] Comment: The eGFR was calculated using the CKD-EPI equation. As with all creatinine based estimates of kidney function, eGFR values calculated with the CKD-EPI equation are not accurate in patients with acute kidney failure, extremes of body mass or the acutely ill. http://Effective Measure/[facility]nkf eGFR 74 >=60 mL/min/1. 73 m?? [facility] Comment: The eGFR was calculated using the CKD-EPI equation. As with all creatinine based estimates of kidney function, eGFR values calculated with the CKD-EPI equation are not accurate in patients with acute kidney failure, extremes of body mass or the acutely ill. http://Effective Measure/[facility]nkf Blood specimen (specimen) 10/05/2019 2:31 PM EDT 10/05/2019 2:42 PM EDT Narrative Resulting Agency Comment Spec In Lab Stephan Armstrong MD CHEMISTRY ORDERABLES [facility] [place] [address] documented in this encounter Visit Diagnoses Diagnosis Malignant neoplasm of urinary bladder, unspecified site documented in this encounter Care Teams Clinical Manager Relationship Specialty Start Date End Date Subhash Dowling MD [address] [place] [id number] PCP - General 06/03/10 documented as of this encounter
--- OUTSIDE RECORDS SUMMARY | 2024-08-15 01:38 | XMS_ITS | Encounter Summary ---
Author Organization [facility] [place] [address] Care Team Providers Care High School Coach Name Role Phone Subhash Dowling MD Primary Care Provider Encounter Details Date Type Department Care Team (Late Contact Info) Description 10/09/2019 Telephone Radiation Oncology at [address] [phone] Noah Garcia Social History Tobacco Use Types [...] AM EST Office Visit Hematology/Oncology at [address] [phone] Chanelle Kim [facility] [place] [address] Bee Curry [facility] [place] [address] documented as of this encounter Visit Diagnoses Not on filedocumented in this encounter Care Teams High School Coach Relationship Specialty Start Date End Date Subhash Dowling MD [address] [place] [address] PCP - General 06/03/10 documented as of this encounter
--- OUTSIDE RECORDS SUMMARY | 2024-08-15 01:38 | XMS_ITS | Encounter Summary ---
Author Organization [facility] [place] [address] Care Team Providers Care Senior Computer Specialist Name Role Phone Subhash Dowling MD Primary Care Provider [phone] Reason for Visit * Reason Onset Date Comments Other 10/24/2019 follow up Encounter Details Date Type Department Care Team ([facility] Contact Info) Description 10/24/2019 Telephone Hematology/Oncology at [address] [phone] Nadia Mueller MSW OFFICE OF CARE MANAGEMENT [...] Telephone Encounter - Nadia Mueller MSW - 10/24/2019 12:45 PM EDT TC follow up with pt. He reports his ride in went well and he had a ride down to facility from the lab. Pt reports he is doing fairly well day to day at home. Has support from his friend Subhash. Offered support. Will continue to follow pt for support and resources. documented in this encounter Plan of Treatment Upcoming Encounters Date Type Department Care Team ([facility] Contact Info) Description 08/15/2024 11:30 AM EST Office Visit Hematology/Oncology at [address] [phone] Chanelle Kim, [facility] [place] [address] Bee Curry, [facility] [place] [address] documented as of this encounter Visit Diagnoses Not on filedocumented in this encounter Care Teams Senior Computer Specialist Relationship Specialty Start Date End Date Subhash Dowling MD [address] [place] [phone] PCP - General 06/03/10 documented as of this encounter
--- OUTSIDE RECORDS SUMMARY | 2024-08-15 01:38 | XMS_ITS | Encounter Summary ---
Author Organization [facility] [place] [address] Care Team Providers Care Assembly Line Inspector Name Role Phone Subhash Dowling MD Primary Care Provider [phone] Reason for Visit * Reason Onset Date Comments Other 11/07/2019 follow up Encounter Details Date Type Department Care Team (Late st Contact Info) Description 11/07/2019 Telephone Hematology/Oncology at [address] [phone] Nadia Mueller MSW OFFICE OF CARE MANAGEMENT [...] Telephone Encounter - Nadia Mueller MSW - 11/07/2019 11:04 AM EDT TC follow up visit with pt during clinic visit today. Pt reports he is managing day to day at home as best he an. He does have the support and assistance of his friend Subhash who is staying with pt. Pt indicated his ride with RCT went well today. He did not identify any additional needs at this time. Informed pt will need some appointments at and once schedule will need to put in a request to Medicaid transportation and RCT. Will continue to follow for support and resources. Add: 1:15pm. Notified that pt is schedule for a port placement and urology visit on 11-27-19 at . TC RCT to request this ride for a 6:30 am arrival and 12:15 pm return trip home. Will make sure Physician referral form for out of area travel is completed and faxed to Medicaid Transportation. documented in this encounter Plan of Treatment Upcoming Encounters Date Type Department Care Team (Late st Contact Info) Description 08/15/2024 11:30 AM EST Office Visit Hematology/Oncology at [address] [phone] Chanelle Kim, [facility] [place] [address] Bee Curry [facility] [place] [place] [address] documented as of this encounter Visit Diagnoses Not on filedocumented in this encounter Care Teams Assembly Line Inspector Relationship Specialty Start Date End Date Subhash Dowling MD [address] [place] [phone] PCP - General 06/03/10 documented as of this encounter
--- OUTSIDE RECORDS SUMMARY | 2024-08-15 01:38 | XMS_ITS | Encounter Summary ---
[place] [address] Care Team Providers Care Tape Recorder Repairer Name Role Phone Subhash Dowling MD Primary Care Provider Reason for Referral * Diagnostic Test (Routine) - Closed Specialty Diagnoses / Procedures Referred By Haroldo clark Referred To Contact Radiology Diagnoses Malignant neoplasm of urinary bladder, unspecified site Procedures NM PET CT Skull Base to Mid-thigh Aries Quiñones MD [facility] DR HEMATOLOGY [place] [address] [place] [address] Referral ID Status Reason Start Date Expiration Date V isits Requested Visits Authorized [id number] Closed Specialty Service Requested 09/26/2019 03/28/2021 1 1 * Consultation (Routine) - Closed Specialty Diagnoses / Procedures Referred By Haroldo clark Referred To Contact Urology Diagnoses Malignant neoplasm of urinary bladder, unspecified site MUSCLE INVASIVE BLADDER CANCER Aries Quiñones MD [facility] DR HEMATOLOGY [place] [address] [facility] [place] [address] Referral ID Status Reason Start Date Expiration Date V isits Requested Visits Authorized [id number] Closed Consult, Test & Treat 09/26/2019 09/25/2020 1 1 Encounter Details Date Type Department Care Team (Late st Contact Info) Description 09/26/2019 10:00 AM EDT Office Visit Hematology/Oncology at [address] [phone] Aries Quiñones MD [facility] HEMATOLOGY [place] [address] Chanelle Kim APRN [facility] [place] [address] Malignant neoplasm of urinary bladder, unspecified site [...] Sign Reading Time Taken Comments Blood Pressure 125/80 09/26/2019 9:52 AM EDT Pulse 83 09/26/2019 9:52 AM EDT Temperature 36.3 ??C (97.3 ??F) 09/26/2019 9:52 AM ED T Respiratory Rate 16 09/26/2019 9:52 AM EDT Oxygen Saturation 100% 09/26/2019 9:52 AM EDT Inhaled Oxygen Concentration - - Weight 59.4 kg (131 lb) 09/26/2019 9:52 AM EDT Height 170 cm (5' 6.93) 09/26/2019 9:52 AM EDT Body Mass Index 20.56 09/26/2019 9:52 AM EDT documented in this encounter Progress Notes * Denise Lamb, RN - 09/26/2019 10:00 AM EDT MEDICAL ONCOLOGY INITIAL NURSING ASSESSMENT ADVANCE DIRECTIVES: In EDH [ ] Has documents [ ] Will bring in [ ] does not have does not read IF NO: Advance Directive pamphlet provided : Referral to Care Management : PRESENTING SYSTEMS and PATHOLOGY: issues with urinating REVIEW OF SYSTEMS: see Ishmael's note Prior Radiotherapy: no[x ] Yes[ ]Site Date Facility Prior Chemotherapy: no[ x ] Yes[ ] Drug: Oncologist- LastTreatment: Balance difficulty: [ x ]no [ ]yes At risk for fall: [ x ] no [ ] yes If yes, actions implemented to prevent fall. Patient/family instructed to avoid independent ambulation. Use wheelchair and ask for assistance of staff while in the clinic. ADL [ x ] no limits [ ] needs dressing assistance [ ] needs meal assistance Assistive device:[ ]none [ x ]cane [ ]walker [ ]wheelchair [ ]other: explain PAIN ASSESSMENT: [ 8 ] out of 10 Location: when urinating Description: [ ] Dull [ ] Sharp [x ] Burning [ ] Throbbing [ ] Radiating [ ] Continuous [ ]Intermittent Aggravating Factors: [ ] Movement [ ] Position [ ]Immobility [ ]Other Alleviating Factors: [ ]Medication [ ] Positioning [ ] Other Current Pain Management Plan: [ ]Satisfied [ ] Not satisfied SOCIAL ASSESSMENT: See ED social assessment information entered. Support Systems: tamela joshi spends weekend with him, no family available to help him transportation plan: [ ]private vehicle [x ] RCT needs Social Work referral [ ] Unknown at this time needs Social Work referral Barriers to treatment: not able to read, limited resources for help in home Referrals/Interventions: LEARNING STYLE: Visual and verbal, wants written material and verbal discussion. TEACHING: __ NCI ???Chemotherapy and You?? and folder given __ Specific chemotherapy literature provided and reviewed with patient * Aries Quiñones MD - 09/26/2019 10:00 AM EDT Images from the original note were not included. Diagnosis: Muscular invasive bladder cancer Subjective: I feel burning sensation when urinating HPI:Gt Aguilar is 69 y.o. referred by [...] least 3 appointments due to transportation problem. PMH: GERD, hypertension, hypercholesterolemia, hernia, peripheral vascular disease, COPD, history of hernia repair, right hip fracture, Social History: Smoker 2 packs a day for total of more than 110 pack-year smoking history. Drinks 2-3 beers several times a week, sometimes he drinks hard liquor as well. He lives by himself. 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 Lives alone. He has 2 children but he is not in touch with them Family History: Noncontributory Allergies: Allergies Allergen Reactions ??? Wellbutrin [Bupropion Hcl] Other (See Comments) Unknown on pt's chart from outside facility Medications: Your Medications Accurate as of September 26, 2019 12:01 PM. If you have any questions, ask [...] mg Refills: 0 Review of Systems: Constitutional: Positive for unexpected weight change. HEENT: Negative for sore throat, mouth sores [...] without obvious abnormality, atraumatic Eyes: PERRL, conjunctiva/corneas clear, EOM's intact, fundi benign, both eyes Ears: Normal TM's and external [...] tenderness Lungs: Clear to auscultation bilaterally, respirations unlabored Chest Wall: No tenderness or deformity Heart: [...] axillary nodes normal Neurologic: Normal Vitals BP 125/80 (Patient Position: Sitting) Pulse 83 Temp 36.3 ??C (97.3 ??F) (Oral) Resp 16 Ht 170 cm (5' 6.93) Wt 59.4 kg (131 lb) SpO2 100% BMI 20.56 kg/m?? Pathology: 07/31/2019 Urinary bladder, site not specified, mass, TURBT: - High grade urothelial carcinoma, invasive into muscularis propria and asuncion-muscular ??bundle adipose tissue. - Focal urothelial carcinoma in situ Labs: none Imagin02/28/2019 CT abdomen pelvis: Conclusion: Obstructing mass [...] Given his aggressive nature of that cancer I would like to restage him with PET scan. We will obtain his CBC and CMP to check on his kidney function and blood counts. We discussed prognosis of bladder cancer and probability of metastatic disease if we left it untreated. We discussed the treatment options including surgery versus chemoradiation versus palliative care. He would like to be treated. He already had the appointment with radiation oncologist Dr. Schaeffer on October 08. I will refer him to our urology group for consideration of another TURBT and discussion of cystectomy given his PET scan is negative for metastatic disease. I will see him back in 3 weeks to finalize the plan. #Social situation: He is not able to read, has difficult social situation living alone and not having transportation, I do not know if he has official disability and what his insight in his disease/prognosis Plan: 1. CBC, CMP and PET scan 2. Urology consult 3. Next visit in 3 weeks The plan was discussed with the patient in details. All questions answered to patient's satisfaction. I would like to thank Dr. Dowling and Dr. Hurley for allowing me to participate in the care of this wonderful gentleman. documented in this encounter Plan of Treatment Upcoming Encounters Date Type Department Care Team (Late st Contact Info) Description 08/15/2024 11:30 AM EST Office Visit Hematology/Oncology at [address] [phone] Chanelle Kim [facility] [place] [address] Bee Curry [facility] [place] [address] Scheduled Referrals Name Type Priority Associated Diagnoses Orde r Schedule Referral to Urology Outpatient Referral Routine Malignant neoplasm of urinary bladder, unspecified site Ordered: 09/26/2019 documented as of this encounter Results * [...] below. ? Electronically signed by: Severo Webster [facility] ([phone]), at 10/05/2019 2:21 PM Narrative 10/05/2019 2:21 PM EDT EXAMINATION: NM PET CT SKULL BASE TO MID-THIGH ? CLINICAL HISTORY: Metastatic disease evaluation Staging of high-grade urothelial carcinoma of bladder TECHNIQUE: Following IV injection of 29-ikicxi-9-deoxyglucose (FDG) a standard uptake of approximately 60 [...] of bladder TECHNIQUE: Following IV injection of 84-mgkvgu-8-deoxyglucose (FDG) astandard uptake of approximately 60 minutes, [...] in the left external iliac region (axial [id number]), not significantly changed in size compared to [...] number below. Electronically signed by: Severo Webster [facility]([phone]), at 10/05/2019 2:21 PM Aries Quiñones MD IMG PET ORDERABLES documented in this encounter Visit Diagnoses Diagnosis Malignant neoplasm of urinary bladder, unspecified site- Primary Malignant neoplasm of urinary bladder, unspecified site documented in this encounter Additional Health Concerns Infection Onset Date Last Indicated Resolved Time Rule Out C. difficile 02/16/2020 02/16/20202019 4:52 PM EDT documented as of this encounter Care Teams Tape Recorder Repairer Relationship Specialty Start Date End Date Subhash Dowling MD [address] [id number] PCP - General 06/03/10 documented as of this encounter
--- OUTSIDE RECORDS SUMMARY | 2024-08-15 01:38 | XMS_ITS | Encounter Summary ---
Author Organization Formerly [facility] [place] [address] Care Team Providers Care Director Of Cardiac Rehabilitation Name Role Phone Subhash Dowling MD Primary Care Provider [phone] Encounter Details Date Type Department Care Team (Late st Contact Info) Description 11/06/2019 Telephone Hematology/Oncology at [address] [phone] Marcy Castillo Social History Tobacco Use Types Packs/Day Years Used Date Smoking Tobacco: Every Day Cigarettes 2 50 Smokeless Tobacco: Never Sex and Gender Information Value Date Recorded Sex Assigned at Not on file Gender Identity Not on file Sexual Orientation Not on file documented as of this encounter Miscellaneous Notes * Telephone Encounter - Marcy Castillo - 11/06/2019 1:27 PM EDT Called Gt to inform him of [...] AM EST Office Visit Hematology/Oncology at [address] [phone] Chanelle Kim, [facility] [place] [address] Bee Curry [facility] [place] [address] documented as of this encounter Visit Diagnoses Not on filedocumented in this encounter Care Teams Director Of Cardiac Rehabilitation Relationship Specialty Start Date End Date Subhash Dowling MD [address] [place] [id number] PCP - General 06/03/10 documented as of this encounter
--- OUTSIDE RECORDS SUMMARY | 2024-08-15 01:38 | XMS_ITS | Encounter Summary ---
Author Organization [facility]ly [facility] [place] [address] Care Team Providers Care Personnel Monitor Name Role Phone Subhash Dowling MD Primary Care Provider [phone] Reason for Visit * Reason Onset Date Comments Follow-up 10/26/2019 Encounter Details Date Type Department Care Team (Late Contact Info) Description 10/26/2019 Telephone Hematology/Oncology at [address] [phone] Denise Lamb RN Follow-up Social History Tobacco Use Types Packs/Day Years Used Date Smoking Tobacco: Every Day Cigarettes 2 50 Smokeless Tobacco: Never Sex and Gender Information Value Date Recorded Sex Assigned at Not on file Gender Identity Not on file Sexual Orientation Not on file documented as of this encounter Miscellaneous Notes * Telephone Encounter - Denise Lamb RN - 10/26/2019 3:15 PM EDT Called to check on pt to see if his onpro injection worked well. He said it went off fine. He stated he took it off around 7 pm. I told him he could bring it to us in a plastic bag to dispose of in clinic, he said he already threw it away. I told him he could bring the next one in to us. He agrees with plan. documented in this encounter Plan of Treatment Upcoming Encounters Date Type Department Care Team (Late Contact Info) Description 08/15/2024 11:30 AM EST Office Visit Hematology/Oncology at [address] [phone] Chanelle Kim, [facility] [place] [address] Bee Curry, [facility] [address] documented as of this encounter Visit Diagnoses Not on filedocumented in this encounter Care Teams Personnel Monitor Relationship Specialty Start Date End Date Subhash Dowling MD [address] [place] [id number] PCP - General 06/03/10 documented as of this encounter
--- OUTSIDE RECORDS SUMMARY | 2024-08-15 01:38 | XMS_ITS | Encounter Summary ---
[place] [address] Care Team Providers Care Cellar Worker Name Role Phone Subhash Dowling MD Primary Care Provider [phone] Encounter Details Date Type Department Care Team (Late Contact Info) Description 10/16/2019 Telephone [place] [phone] Ema Lay Social History Tobacco Use Types Packs/Day Years Used Date Smoking Tobacco: Every Day Cigarettes 2 50 Smokeless Tobacco: Never Sex and Gender Information Value Date Recorded Sex Assigned at Not on file Gender Identity Not on file Sexual Orientation Not on file documented as of this encounter Miscellaneous Notes * Telephone Encounter - Ema Lay - 10/16/2019 5:01 PM EDT I called Mr. Aguilar to talk to him about nicotine patches. I'm going to put them in the mail to himalong with some nicotine lozenges. He is agreeable about trying. I will call to follow up to make sure he is clear about the application of them. documented in this encounter Plan of Treatment Upcoming Encounters Date Type Department Care Team (Late st Contact Info) Description 08/15/2024 11:30 AM EST Office Visit Hematology/Oncology at [address] [phone] Julio, Chanelle L, [facility] [place] [address] Bee Curry [facility] [place] [address] documented as of this encounter Visit Diagnoses Not on filedocumented in this encounter Care Teams Cellar Worker Relationship Specialty Start Date End Date Subhash Dowling MD [address] [place] [id number] PCP - General 06/03/10 documented as of this encounter
--- OUTSIDE RECORDS SUMMARY | 2024-08-15 01:38 | XMS_ITS | Encounter Summary ---
Author Organization Formerly [facility] Address [facility] [place] [address] Care Team Providers Care Finishing Supervisor Plastic Sheets Name Role Phone Subhash Dowling MD Primary Care Provider [phone] Encounter Details Date Type Department Care Team (Late st Contact Info) Description 10/06/2019 Telephone Hematology [place] [phone] Aries Quiñones MD [facility] [place] [address] Social History Tobacco Use Types Packs/Day Years Used Date Smoking Tobacco: Every Day Cigarettes 2 50 Smokeless Tobacco: Never Sex and Gender Information Value Date Recorded Sex Assigned at Not on file Gender Identity Not on file Sexual Orientation Not on file documented as of this encounter Miscellaneous Notes * Telephone Encounter - Aries Quiñones MD - 10/06/2019 4:38 PM EDT I called Mr. Aguilar with results of PET scan and our interdisciplinary tumor board discussion. 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 As per the tumor board discussion neoadjuvant chemotherapy followed by cystectomy was recommended. We discussed benefits and risks of chemotherapy with cisplatin and gemcitabine. [place]-analysis of several studies of neoadjuvant chemotherapy shows 5% absolute benefit in 5 years survival.(Neoadjuvant c hemotherapy in invasive bladder cancer: a systematic review and meta- analysis,The Lancet, Volume 361, Issue 8023, Pages 0998 - 3437, 16 December 2002) We talked about risks of cisplatin and gemcitabine days 1 and 8 with Neulasta support every 3 weeksfor total of 4 cycles. Risks include but not limited to nausea, vomiting, kidney failure, fatigue, blood clots, hearing loss, low blood counts requiring transfusion, allergic reaction, numbness/tingling/pain in extremities, infection including life-threatening infection. All questions were answeredto patient satisfaction. He is interested to proceed with chemotherapy. Informed verbal consent wasobtained. We will schedule him for chemotherapy starting on October 16. documented in this encounter Plan of Treatment Upcoming Encounters Date Type Department Care Team (Late st Contact Info) Description 08/15/2024 11:30 AM EST Office Visit Hematology/Oncology at [address] [phone] [facility] [place] [place] [address] Bee Curry [facility] [place] [address] documented as of this encounter Visit Diagnoses Not on filedocumented in this encounter Care Teams Finishing Supervisor Plastic Sheets Relationship Specialty Start Date End Date Subhash Dowling MD [address] [place] [id number] PCP - General 06/03/10 documented as of this encounter
--- OUTSIDE RECORDS SUMMARY | 2024-08-15 01:38 | XMS_ITS | Encounter Summary ---
Author Organization [facility] [place] [address] Care Team Providers Care Ticker Wirer Name Role Phone Subhash Dowling MD Primary Care Provider [phone] Reason for Visit * Reason Onset Date Comments Other 09/25/2019 change in appoin tments Encounter Details Date Type Department Care Team (Late st Contact Info) Description 09/25/2019 Telephone Radiation Oncology at [address] [phone] Nadia Mueller RESIDENTIAL BUILDING INSPECTOR OFFICE OF CARE MANAGEMENT Other (change in appointments) Social History Tobacco Use Types Packs/Day Years Used Date Smoking Tobacco: Never Assessed Sex and Gender Information Value Date Recorded Sex Assigned at Not on file Gender Identity Not on file Sexual Orientation Not on file documented as of this encounter Miscellaneous Notes * Telephone Encounter - Nadia Mueller MSW - 09/25/2019 2:34 PM EDT Per James Garcia, [employer] pt's appointment with Dr. Schaeffer on 09-27-19 has been cancelled and rescheduled for 10-09-19. TC pt re this and spoke with friend Derek. Discussed cancellation for 09-27-19 and reschedule for 10-09-19. Derek understands and will communicate this to pt. Confirmed pt still has his appointment with Dr. Quiñones tomorrow 09-26-19. TC RCT and cancelled the 09-27-19 rides and rescheduled for rides on 10-09-19. documented in this encounter Plan of Treatment Upcoming Encounters Date Type Department Care Team (Late st Contact Info) Description 08/15/2024 11:30 AM EST Office Visit Hematology/Oncology at [address] [phone] Chanelle Kim, [facility] [place] [address] Bee Curry, [facility] [place] [address] documented as of this encounter Visit Diagnoses Not on filedocumented in this encounter Care Teams Ticker Wirer Relationship Specialty Start Date End Date Subhash Dowling MD [address] [place] [phone] PCP - General 06/03/10 documented as of this encounter
--- OUTSIDE RECORDS SUMMARY | 2024-08-15 01:38 | XMS_ITS | Encounter Summary ---
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 Social [...] Sign Reading Time Taken Comments Blood Pressure 128/87 10/24/2019 11:01 AM EDT Pulse 91 10/24/2019 11:01 AM EDT Temperature 36.6 ??C (97.9 ??F) 10/24/2019 11:01 AM E DT Respiratory Rate 16 10/24/2019 11:01 AM EDT Oxygen Saturation 94% 10/24/2019 11:01 AM EDT Inhaled Oxygen Concentration - - Weight 57.4 kg (126 lb 9.6 oz) 10/24/2019 11:01 AM EDT Height 167.6 cm (5' 5.98) 10/24/2019 11:01 AM E DT Body Mass Index 20.44 10/24/2019 11:01 AM EDT documented in this encounter Progress Notes * Chanelle Kim, MACHINE OVERHAULER - 10/24/2019 11:00 AM EDT Images from the original note [...] History: Mr. Aguilar returns to clinic in [facility] today for follow up of bladder cancer. He is here today to continue chemotherapy. Denies any fevers, chills or signs of infection. [place]. Agu[place] and has little social support. He does have a [facility] coordinator Ketty Garcia who picks up his prescriptions and checks in on him. He is having a burning sensation when he urinatesbut denies any blood in urine. His main complaint is that he gets cramps in his calves when he walks. He is still smoking. Denies any nausea, vomiting, constipation or diarrhea. No rash or skin issues. He states he is eating and drinking OK. PMH: GERD, hypertension, hypercholesterolemia, hernia, peripheral vascular disease, COPD, history of hernia repair, right hip fracture, Social History: Smoker 2 packs a day for total of more than 110 pack-year smoking history. Drinks 2-3 beers several times a week, sometimes he drinks hard liquor as well. He lives by himself. 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 Lives alone. He has 2 children but he is not in touch with them Family History: Noncontributory Allergies: Allergies Allergen Reactions ??? Wellbutrin [Bupropion Hcl] Other (See Comments) Unknown on pt's chart from outside facility Medications: Your Medications Accurate as of October 24, 2019 11:14 AM. If you have any questions, ask [...] hematuria since TURBT on July 31. Musculoskeletal: Positive for muscle cramps in lower [...] axillary nodes normal Neurologic: Normal Vitals BP 128/87 (Patient Position: Sitting) Pulse 91 Temp 36.6 ??C (97.9 ??F) (Oral) Resp 16 Ht 167.6 cm (5' 5.98) Wt 57.4 kg (126 lb 9.6 oz) SpO2 94% BMI 20.44 kg/m?? Pathology: 07/31/2019 Urinary bladder, site not specified, mass, TURBT: - High grade urothelial carcinoma, invasive into muscularis propria and asuncion-muscular ??bundle adipose tissue. - Focal urothelial carcinoma in situ Labs: 10/24/19- WBC-6.11 Hgb/Hct-14.2/41.8 Plts-121 ANC-3.78 BUN/Cr-20/1.28 Lytes [...] stoma therapist. Mr. Aguilar returns today for D8 of chemotherapy. He appears to have tolerated D1 well. Denies any side effects from chemotherapy. No evidence of clinical toxicities. He is still complaining of some burning with urination. Will continue treatments as prescribed. #Social situation: He is not able to read, has difficult social situation living alone and not having transportation, I do not know if he has official disability and what his insightis in his disease/prognosis Plan: 1. Proceed with D8C1 Cisplatin/Gemcitabine as scheduled today. 2. Dr. Armstrong-Urology will see patient between C 2 and C3 of chemotherapy with stoma therapist. 3. CBC,CMP in one week. 4. Follow up in one week with labs and infusion. Mr. Aguilar voiced understanding of the plan and was given an opportunity to ask questions which I answered to the best of my ability. Mr. Aguilar understands he can call the clinic between visits withany questions/concerns or new symptoms. 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
--- OUTSIDE RECORDS SUMMARY | 2024-08-15 01:38 | XMS_ITS | Encounter Summary ---
Author Organization [facility] [place] [address] Care Team Providers Care Director Of Operations Name Role Phone Subhash Dowling MD Primary Care Provider [phone] Encounter Details Date Type Department Care Team (Late Contact Info) Description 10/19/2019 Telephone [place] [phone] Ema Lay Social History Tobacco Use Types Packs/Day Years Used Date Smoking Tobacco: Every Day Cigarettes 2 50 Smokeless Tobacco: Never Sex and Gender Information Value Date Recorded Sex Assigned at Not on file Gender Identity Not on file Sexual Orientation Not on file documented as of this encounter Miscellaneous Notes * Telephone Encounter - Ema Lay - 10/19/2019 11:17 AM EDT Called Mr. Aguilar to see if his nicotine patches have arrived yet. They have not, so we will continue to check in with him. documented in this encounter Plan of Treatment Upcoming Encounters Date Type Department Care Team (Late Contact Info) Description 08/15/2024 11:30 AM EST Office Visit Hematology/Oncology at [address] [phone] Chanelle Kim APRN [facility] [place] [address] Bee Curry APRN [facility] [place] [address] documented as of this encounter Visit Diagnoses Not on filedocumented in this encounter Care Teams Director Of Operations Relationship Specialty Start Date End Date Subhash Dowling MD [address] [place] [id number] PCP - General 06/03/10 documented as of this encounter
--- OUTSIDE RECORDS SUMMARY | 2024-08-15 01:38 | XMS_ITS | Encounter Summary ---
Author Organization [facility] [place] [address] Care Team Providers Care Extractor Tender Raw Stock Name Role Phone Subhash Dowling MD Primary Care Provider [phone] Encounter Details Date Type Department Care Team (Late st Contact Info) Description 10/23/2019 Telephone Hematology/Oncology at [address] [phone] Marcy Castillo Social History Tobacco Use Types Packs/Day Years Used Date Smoking Tobacco: Every Day Cigarettes 2 50 Smokeless Tobacco: Never Sex and Gender Information Value Date Recorded Sex Assigned at Not on file Gender Identity Not on file Sexual Orientation Not on file documented as of this encounter Miscellaneous Notes * Telephone Encounter - Marcy Castillo - 10/23/2019 2:44 PM EDT Called Gt to inform him [...] AM EST Office Visit Hematology/Oncology at [address] [phone] Chanelle Kim, [facility] [place] [address] Bee Curry [facility] [place] [address] documented as of this encounter Visit Diagnoses Not on filedocumented in this encounter Care Teams Extractor Tender Raw Stock Relationship Specialty Start Date End Date Subhash Dowling MD [address] [place] [id number] PCP - General 06/03/10 documented as of this encounter
--- OUTSIDE RECORDS SUMMARY | 2024-08-15 01:38 | XMS_ITS | Encounter Summary ---
Author Organization [facility] Address [facility] [place] [address] Care Team Providers Care Chip Bin Conveyor Tender Name Role Phone Subhash Dowling MD Primary Care Provider [phone] Encounter Details Date Type Department Care Team (Latest Contact Info) Description 10/17/2019 9:00 AM EDT Clinical Support Hematology/Oncology at [address] [phone] Aries Quiñones MD [facility] [address] [place] [address] Chanelle Kim APRN [facility] [place] [address] Malignant neoplasm of urinary bladder, unspecified site [...] Sign Reading Time Taken Comments Blood Pressure 121/75 10/17/2019 8:48 AM EDT Pulse 92 10/17/2019 8:48 AM EDT Temperature 36.3 ??C (97.3 ??F) 10/17/2019 8:48 AM ED T Respiratory Rate 16 10/17/2019 8:48 AM EDT Oxygen Saturation 99% 10/17/2019 8:48 AM EDT Inhaled Oxygen Concentration - - Weight 57.6 kg (127 lb) 10/17/2019 8:48 AM EDT Height 167.6 cm (5' 6) 10/17/2019 8:48 AM EDT Body Mass Index 20.5 10/17/2019 8:48 AM EDT documented in this encounter Progress Notes * Chanelle Kim, DIGITAL MEDIA ASSOCIATE - 10/17/2019 9:00 AM EDT Images from the original note [...] History: Mr. Aguilar returns to clinic in [facility] today for follow up of bladder cancer. He is here today for chemotherapy teaching and to begin treatment. Denies any fevers, chills or signs of infection. Mr. Aguilar lives alone in [place], [place] and has little social support. He does have a [facility] coordinator Ketty Garcia who picks up his prescriptions and checks in on him. He gave me his permissiontoday to speak with her for assistance during his chemotherapy treatments. He gets most of his groceries at the [employer] and there is a market he can walk to in [place]. We have arranged RTC transportation for him. He is having a burning sensation when he urinates but denies any blood in urine. His main complaint is that he gets cramps in his calves when he walks. He is still smoking and was reluctant to discuss smoking cessation today. PMH: GERD, hypertension, hypercholesterolemia, hernia, peripheral vascular [...] Medications: Your Medications Accurate as of October 16, 2019 1:03 PM. If you have any questions, ask [...] axillary nodes normal Neurologic: Normal Vitals BP 121/75 (Patient Position: Sitting) Pulse 92 Temp 36.3 ??C (97.3 ??F) (Temporal) Resp 16 Ht 167.6 cm (5' 6) Wt 57.6 kg (127 lb) SpO2 99% BMI 20.50 kg/m?? Pathology: 07/31/2019 Urinary bladder, site not specified, mass, TURBT: - High grade urothelial carcinoma, invasive into muscularis propria and asuncion-muscular ??bundle adipose tissue. - Focal urothelial carcinoma in situ Labs: 10/05/19- WBC-9.8 Hgb/Hct-15.4/47.3 Plt-194 ANC-7.14 K+-4.5 BUN/Cr-14/1.17 [...] chemotherapy with the stoma therapist. Mr. Aguilar presents today for chemotherapy teaching and to begin treatment. He is by himself today.The plan is for Neoadjuvant Cisplatin with Gemcitabine given D 1 and D8 for 4 cycles. The followinginformation was reviewed with the patient. Antitumor Therapy Schedule: Cisplatin 35mg/m2 with Gemcitabine 1000mg/m2 D1 and D8 every 21 days with Neulasta support. Laboratory Tests: CBC, CMP prior to each treatment and as needed. Provider Visits: Prior to each treatment and as needed. Possible Side Effects include, but are not limited to Cisplatin: The most common potential side effects include decrease in blood counts (decrease in white blood cells, red blood cells and platelets, resulting in increased risk of infection, anemia and bleeding), nausea and vomiting, kidney dysfunction, ringing in the ears or hearing loss, electrolyte abnormalities (low magnesium, low calcium, low potassium). Less common side effects include peripheral neuropathy (pain, numbness or tingling in fingers and toes), loss of appetite, taste changes (metallic taste) hair loss, and liver dysfunction. Gemcitabine (Gemzar): The most common potential side effects include: Decrease in blood counts (decrease in white blood cells, red blood cells and platelets, resulting in increased risk of infection,anemia and bleeding), body rash. Less common side effects include hair thinning or loss, flu-like symptoms, diarrhea, fluid retention. Neulasta: Bone pain and extremity pain. Medications: the following prescriptions should be picked up before starting treatment: Compazine 10mg po every 6 hours if needed for nausea or vomiting. [email or web address] coordinator contacted to garbage pick up man medication for him. Plan: Mr. Aguilar cannot read. We reviewed side effects of chemotherapy, symptom management, how andwhen to call clinic, home safety and emergency management. He was given written information including [facility] drug information sheets- regarding treatment regimen, side effects and management strategies. In addition the [facility] DVD was viewed. He has a friend that can go over the information and a [facility] worker that coordinates his care and will be checking in with him daily. He was given an opportunity to ask questions and verbalized understanding of the information and treatment plan. Mr Aguilar was counseled on how to call for any further questions or concerns. ??? Treatment is scheduled to begin today. ??? Testing/Diagnostics o Baseline blood work was reviewed and is adequate for treatment ??? Supportive Care: Friend that stays with him. [facility] coordinator. ??? Fertility: Fertility counseling was provided. ??? Smoking cessation: He is being contacted by someone from Dr. Armstrong's office- they have provided him with nicotine patches. ??? Advance Directives: Will refer to social work to assist ??? Follow up: Return to clinic in one week for infusion. 40 minutes of this 40 minute face to face encounter was spent in counseling, education and coordination of care. #Social situation: He is not able to read, has difficult social situation living alone and not having transportation, I do not know if he has official disability and what his insightis in his disease/prognosis Plan: 1. Proceed with D1C1 Cisplatin/Gemcitabine as scheduled today. 2. Dr. Armstrong-Urology [...] questions/concerns or new symptoms. Chanelle Kim MSN, DIGITAL MEDIA ASSOCIATE, AOCNP Medical Oncology documented in this encounter Plan of Treatment Upcoming Encounters Date Type Department Care Team (Late st Contact Info) Description 08/15/2024 11:30 AM EST Office Visit Hematology/Oncology at [address] [phone] Chanelle Kim APRN [facility] [place] [address] Bee Curry APRN [facility] [place] [address] documented as of this encounter Visit Diagnoses Diagnosis Malignant neoplasm of urinary bladder, unspecified site documented in this encounter Care Teams Chip Bin Conveyor Tender Relationship Specialty Start Date End Date Subhash Dowling MD [address] [address] PCP - General 06/03/10 documented as of this encounter
--- OUTSIDE RECORDS SUMMARY | 2024-08-15 01:38 | XMS_ITS | Encounter Summary ---
Author Organization [facility] [place] [address] Care Team Providers Care Insurance Office Supervisor Name Role Phone Subhash Dowling MD Primary Care Provider [phone] Reason for Visit * Reason Onset Date Comments Other 09/21/2019 transportation Encounter Details Date Type Department Care Team (Late st Contact Info) Description 09/21/2019 Telephone Hematology/Oncology at [address] [phone] Nadia Mueller MSW OFFICE OF CARE MANAGEMENT Other (transportation) Social History Tobacco Use Types Packs/Day Years Used Date Smoking Tobacco: Never Assessed Sex and Gender Information Value Date Recorded Sex Assigned at Not on file Gender Identity Not on file Sexual Orientation Not on file documented as of this encounter Miscellaneous Notes * Telephone Encounter - Nadia Mueller MSW - 09/21/2019 8:51 AM EDT Request received to set up ride for pt on 09-26-[address] Quiñones at [facility]. TC pt to discuss. With pt's permission TC RCT and set up a ride for 09-26-[address] Quiñones. Also verified his rides which were already set up for 09-27-19 at [facility] to see Dr. Schaeffer. documented in this encounter Plan of Treatment Upcoming Encounters Date Type Department Care Team (Late st Contact Info) Description 08/15/2024 11:30 AM EST Office Visit Hematology/Oncology at [address] [phone] Chanelle Kim, [facility] [place] [address] Bee Curry, [facility] [place] [address] documented as of this encounter Visit Diagnoses Not on filedocumented in this encounter Care Teams Insurance Office Supervisor Relationship Specialty Start Date End Date Subhash Dowling MD [address] [place] [id number] PCP - General 06/03/10 documented as of this encounter
--- OUTSIDE RECORDS SUMMARY | 2024-08-15 01:39 | XMS_ITS | Encounter Summary ---
Author Organization [facility] [place] [address] Care Team Providers Care Wearing Apparel Shaker Name Role Phone Subhash Dowling MD Primary Care Provider Encounter Details Date Type Department Care Team (Late Contact Info) Description 02/28/2019 Ancillary Procedure Radiology Library at [facility] [place] [address] Subhash Dowling MD [address] [place] [address] Social History Tobacco Use Types Packs/Day Years [...] AM EST Office Visit Hematology/Oncology at [address] [phone] Chanelle Kim [facility] [address] [place] [address] Bee Curry [facility] [address] [place] [address] documented as of this encounter Procedures Procedure Name Priority Date/Time Associated Diagnosis Comments FILM LIBRARY STORAGE ONLY CT ABDOMEN AND PELVIS Routine 02/28/2019 12:00 AM EDT documented in this encounter Results * Film Library- Storage Only CT Abdomen & Pelvis (02/28/2019 12:00 AM EDT) Narrative [facility] - 08/25/2019 12:39 PM EST This exam is auto-finalizing. It's purpose is for storage only. Subhash Dowling MD IMG FILM LIBRARY ORD ERABLES Performing Organization Address City/State/[facility] Co de Phone Number [place], [place] documented in this encounter Visit Diagnoses Not on filedocumented in this encounter Care Teams Wearing Apparel Shaker Relationship Specialty Start Date End Date Subhash Dowling MD [address] [place] [id number] PCP - General 06/03/10 documented as of this encounter
[2024-08-15 10:43] LABS: Abs Immature Grans 0.03 10^3/uL (0.0-0.06); Absolute Basophil Count 0.07 10^3/uL (0.0-0.2); Absolute Eosinophil Count 0.15 10^3/uL (0.0-0.7); Absolute Lymphocyte Count 0.95 10^3/uL (1.2-3.4); Absolute Neutrophil Count 2.87 10^3/uL (1.2-6.7); Basophils % 1.5 %; Eosinophils % 3.1 %; HCT 47.2 % (40.0-50.0); Immature Grans % 0.6 %; Lymphocytes % 19.9 %; MCH 31.1 pg (27.0-33.0); MCHC 33.9 % (32.0-36.0); MCV 92 fL (80-95); Monocytes % 14.7 %; Neutrophils % 60.2 %; Platelet Count 133 10^3/uL (130-400); RBC 5.14 10^6/uL (4.36-5.78); RDW 13.7 % (11.8-14.1); RDW-SD 46.5 fL; WBC 4.77 10^3/uL (4.4-10.8)
[2024-08-15 11:01] LABS: ALT 21 U/L (16-63); AST 13 U/L (15-37); Alkaline Phosphatase 122 U/L (46-116); Anion Gap 6.7 mmol/L (3-11); BUN 21 mg/dL (7-18); Bilirubin, Total 0.46 mg/dL (0.2-1.0); CO2 28.3 mmol/L (21.0-32.0); CREATININE 1.4 mg/dL (0.70-1.30); Calcium 9.9 mg/dL (8.5-10.1); Chloride 105 mmol/L (98-107); Estimated GFR 53.74 (mL/min/1.73m2); Glucose 105 mg/dL (74-106); Potassium 4.3 mmol/L (3.5-5.1); Sodium 140 mmol/L (136-145); Total Protein 7.5 g/dL (6.4-8.2)
== END 2024-08-15 01:10 | disposition home or self-care (01) ==
PROVIDERS: PCP Physician Assistant; Visit Provider Nurse Practitioner
DX: C67.9 Malignant neoplasm of bladder, unspecified (principal)
CPT/HCPCS: 36415; 80053; 85025

== ENCOUNTER 2024-11-14 09:21 | Outpatient (CLI) | payer MEDICARE, MEDICAID, SELFPAY ==
[2024-11-14 10:05] LABS: Abs Immature Grans 0.03 10^3/uL (0.0-0.06); Absolute Basophil Count 0.08 10^3/uL (0.0-0.2); Absolute Eosinophil Count 0.39 10^3/uL (0.0-0.7); Absolute Lymphocyte Count 1.21 10^3/uL (1.2-3.4); Absolute Monocyte Count 0.42 10^3/uL (0.1-0.8); Absolute Neutrophil Count 3.46 10^3/uL (1.2-6.7); Basophils % 1.4 %; HCT 44.6 % (40.0-50.0); HGB 15.3 g/dL (13.5-17.5); Immature Grans % 0.5 %; Lymphocytes % 21.6 %; MCH 30.8 pg (27.0-33.0); MCHC 34.3 % (32.0-36.0); MCV 90 fL (80-95); MPV 10.5 fL (8.0-11.0); Monocytes % 7.5 %; Platelet Count 142 10^3/uL (130-400); RBC 4.96 10^6/uL (4.36-5.78); RDW 13.8 % (11.8-14.1); RDW-SD 45.2 fL; WBC 5.59 10^3/uL (4.4-10.8)
[2024-11-14 10:35] LABS: ALT 19 U/L (16-63); AST 17 U/L (15-37); Albumin 3.8 g/dL (3.4-5.0); Alkaline Phosphatase 122 U/L (46-116); Anion Gap 7.2 mmol/L (3-11); BUN 14 mg/dL (7-18); Bilirubin, Total 0.3 mg/dL (0.2-1.0); CO2 28.8 mmol/L (21.0-32.0); CREATININE 1.2 mg/dL (0.70-1.30); Calcium 9.5 mg/dL (8.5-10.1); Chloride 102 mmol/L (98-107); Estimated GFR 64.25 (mL/min/1.73m2); Glucose 89 mg/dL (74-106); Potassium 4.6 mmol/L (3.5-5.1); Sodium 138 mmol/L (136-145); Total Protein 7.4 g/dL (6.4-8.2)
== END 2024-11-14 09:22 | disposition home or self-care (01) ==
PROVIDERS: PCP Physician Assistant; Visit Provider Urology
DX: C67.9 Malignant neoplasm of bladder, unspecified (principal)
CPT/HCPCS: 36415; 80053; 85025